=== PATIENT | female | born 1950 | race African-American/Black ===

== ENCOUNTER 2018-03-19 16:53 | Inpatient (IN) | payer MEDICARE, MEDICAID ==
[~2018-03-19] VITALS: Ht 162.6 cm; Wt 74.4 kg
[2018-03-19 17:14] VITALS: BP 200/82
[2018-03-19] MEDS ORDERED: Lidocaine 1% 10mg/ml/Epi 0.005mg/ml 30ml vial INJ ONE (18:00)
[2018-03-19] MEDS ORDERED: AMLODIPINE BESY10 MG ORAL (18:31)
[2018-03-19] MEDS ORDERED: MEGESTROL400 MG/11 PO (18:31)
[2018-03-19] MEDS ORDERED: ELIQUIS2.5 MG PO (18:31)
[2018-03-19] MEDS ORDERED: HYDRALAZINE HCL50 MG ORAL (18:31)
[2018-03-19] MEDS ORDERED: FUROSEMIDE20 M1 ORAL (18:31)
[2018-03-19] MEDS ORDERED: VITAMIN D400 INTLU ORAL (18:31)
[2018-03-19] MEDS ORDERED: ACIDOPHILUS LA1 EAC1 ORAL (18:31)
[2018-03-19] MEDS ORDERED: CRANBERRY450 M4 PO (18:31)
[2018-03-19] MEDS ORDERED: NEPHROVITE1 TAB ORAL (18:31)
[2018-03-19] MEDS ORDERED: GABAPENTIN100 MG ORAL (18:31)
[2018-03-19] MEDS ORDERED: METOPROLOL TART25 MG ORAL (18:31)
[2018-03-19] MEDS ORDERED: TUMS500 MG ORAL (18:31)
[2018-03-19] MEDS ORDERED: DOCUSATE SODIU100 MG ORAL (18:31)
[2018-03-19] MEDS ORDERED: FERROUS SULFAT325 MG ORAL (18:31)
[2018-03-19] MEDS ORDERED: CALCIUM ACETAT667 M1 PO (18:34)
[2018-03-19 19:09] LABS: HEMATOCRIT 22.1 % (37.0-47.0); HEMOGLOBIN 7.8 G/DL (12.0-16.0); MEAN CORPUSCULAR VOLUME 88 FL (80-99); PLATELET COUNT 152 K/UL (150-450); RED BLOOD COUNT 2.52 M/UL (4.20-5.40); RED CELL DISTRIBUTION WIDTH 12.7 % (11.6-14.8); WHITE BLOOD COUNT 5.2 K/UL (4.8-10.8)
[2018-03-19 19:15] VITALS: BP 171/81
[2018-03-19] MEDS ORDERED: Albuterol ud Inhalation HHN ONE (19:30)
[2018-03-19] MEDS ORDERED: Ipratropium 0.02% Inh Soln 2.5ml UD HHN ONE (19:30)
[2018-03-19 19:36] LABS: ANION GAP 10 mmol/L (5-15); BLOOD UREA NITROGEN 81 mg/dL (7-18); CALCIUM 9.6 MG/DL (8.5-10.1); CARBON DIOXIDE 23 MMOL/L (21-32); CHLORIDE 110 MMOL/L (98-107); POTASSIUM 4.7 MMOL/L (3.5-5.1); SODIUM 143 MMOL/L (136-145)
[2018-03-19 19:49] LABS: ALANINE AMINOTRANSFERASE 17 U/L (12-78); ALBUMIN 3.7 G/DL (3.4-5.0); ALBUMIN/GLOBULIN RATIO 0.9 (1.0-2.7); ALKALINE PHOSPHATASE 42 U/L (46-116); ASPARTATE AMINO TRANSFERASE 20 U/L (15-37); BILIRUBIN,TOTAL 0.4 MG/DL (0.2-1.0); CKMB 1.3 NG/ML (0.0-3.6); CREATINE KINASE 101 U/L (26-308)
[2018-03-19 21:04] VITALS: BP 170/61
[2018-03-19 21:23] VITALS: BP 189/85
--- NOTE | 2018-03-19 21:33 | Emergency Room Report ---
History of Present Illness General Chief Complaint: Abnormal Labs Source: Patient, Family Member, EMS Present Illness HPI Patient was found to have a low hemoglobin count at the facility that she resides in And sent in for further eval patient herself is felt mildly fatigued but denies any chest pain Patient does have history of asthma Denies any back or flank pain denies any abdominal pain Denies any dysuria frequency Daughter reports that she has been told her kidney function is not fully functional Allergies: Coded Allergies: PENICILLINS (Verified Allergy, Unknown, 11/10/09) Patient History Past Medical History: see triage record Pertinent Family History: none Last Menstrual Period: NA Reviewed Nursing Documentation: PMH: Agreed; PSxH: Agreed Nursing Documentation-PMH Past Medical History: No History, Except For Hx Diabetes: Yes History Of Psychiatric Problem: Yes Hx Neurological Problems: Yes - anxiety Review of Systems All Other Systems: negative except mentioned in HPI Physical Exam Vital Signs Date Time Temp Pulse Resp B/P (MAP) Pulse Ox O2 Delivery O2 Flow Rate FiO2 03/19/18 16:41 98.1 64 22 200/82 96 Room Air 98.1 03/19/18 19:34 21 Sp02 EP Interpretation: reviewed, normal General Appearance: mild distress - Appears mildly short of breath Head: normocephalic, atraumatic Eyes: bilateral eye PERRL ENT: normal pharynx, no angioedema Neck: supple, thyroid normal Respiratory: no respiratory distress, wheezing - Bilaterally Cardiovascular #1: regular rate, rhythm, other - Dependent edema bilaterally Gastrointestinal: soft, no mass Musculoskeletal: other - Patient has both hands flexed no obvious focal need deficit Neurologic: alert, oriented x3, responsive Skin: pallor Lymphatic: no adenopathy Procedures Central Line Central Line : Consent: Emergent Central Line Lumen: triple Maximal Sterile Barrier Tech: yes cap, yes mask, yes sterile gown, yes sterile gloves, yes large sterile sheet, yes hand hygiene, yes chlorhexidine prep Central Line Postion: femoral (R) Anesthesia: Lidocaine cc's of anesthesia: 4 Complications: none Central Line Post Position: sutured Attempts: One Patient Tolerated: Well Complications: None Medical Decision Making Diagnostic Impression: Primary Impression: Dyspnea Additional Impression: Symptomatic anemia ER Course Patient is a fairly complex patient with multiple differential to consideration including but not limited to cardiac cardiopulmonary and vascular emergencies Patient also shows signs of renal insufficiency has history of previous anemia With the hemoglobin of 7.8 at this time patient was not emergently transfused Appears to have signs of acute asthma as well patient provided with breathing treatments central line was required to be placed given the lack of any IV access Patient was provided with amlodipine here in the emergency room and requires close inpatient care Labs Test 03/19/18 18:58 White Blood Count 5.2 K/UL (4.8-10.8) Red Blood Count 2.52 M/UL (4.20-5.40) Hemoglobin 7.8 G/DL (12.0-16.0) Hematocrit 22.1 % (37.0-47.0) Mean Corpuscular Volume 88 FL (80-99) Mean Corpuscular Hemoglobin 31.1 PG (27.0-31.0) Mean Corpuscular Hemoglobin Concent 35.5 G/DL (32.0-36.0) Red Cell Distribution Width 12.7 % (11.6-14.8) Platelet Count 152 K/UL (150-450) Mean Platelet Volume 6.2 FL (6.5-10.1) Neutrophils (%) (Auto) % (45.0-75.0) Lymphocytes (%) (Auto) % (20.0-45.0) Monocytes (%) (Auto) % (1.0-10.0) Eosinophils (%) (Auto) % (0.0-3.0) Basophils (%) (Auto) % (0.0-2.0) Differential Total Cells Counted 100 Neutrophils % (Manual) 50 % (45-75) Lymphocytes % (Manual) 36 % (20-45) Monocytes % (Manual) 7 % (1-10) Eosinophils % (Manual) 5 % (0-3) Basophils % (Manual) 2 % (0-2) Band Neutrophils 0 % (0-8) Platelet Estimate Adequate Platelet Morphology Normal Hypochromasia 1+ Anisocytosis 1+ Prothrombin Time 10.0 SEC (9.30-11.50) Prothromb Time International Ratio 1.0 (0.9-1.1) Activated Partial Thromboplast Time 20 SEC (23-33) Sodium Level 143 MMOL/L (136-145) Potassium Level 4.7 MMOL/L (3.5-5.1) Chloride Level 110 MMOL/L (98-107) Carbon Dioxide Level 23 MMOL/L (21-32) Anion Gap 10 mmol/L (5-15) Blood Urea Nitrogen 81 mg/dL (7-18) Creatinine 5.0 MG/DL (0.55-1.30) Estimat Glomerular Filtration Rate 10.4 mL/min (>60) Glucose Level 136 MG/DL (74-106) Calcium Level 9.6 MG/DL (8.5-10.1) Total Bilirubin 0.4 MG/DL (0.2-1.0) Aspartate Amino Transf (AST/SGOT) 20 U/L (15-37) Alanine Aminotransferase (ALT/SGPT) 17 U/L (12-78) Alkaline Phosphatase 42 U/L (46-116) Total Creatine Kinase 101 U/L (26-308) Creatine Kinase MB 1.3 NG/ML (0.0-3.6) Creatine Kinase MB Relative Index 1.2 Troponin I 0.016 ng/mL (0.000-0.056) Pro-B-Type Natriuretic Peptide 7785 pg/mL (0-125) Total Protein 7.6 G/DL (6.4-8.2) Albumin 3.7 G/DL (3.4-5.0) Globulin 3.9 g/dL Albumin/Globulin Ratio 0.9 (1.0-2.7) EKG Diagnostic Results Rate: normal Rhythm: NSR ST Segments: other Rhythm Strip Diag. Results EP Interpretation: yes Rate: 77 Rhythm: NSR, no PVC's, no ectopy Chest X-Ray Diagnostic Results Chest X-Ray Diagnostic Results : Chest X-Ray Ordered: Yes # of Views/Limited/Complete: 1 View Indication: Shortness of Breath EP Interpretation: Yes Interpretation: no consolidation, no effusion, no pneumothorax Impression: No acute disease Electronically Signed by: Kodak Ha DO Last Vital Signs Date Time Temp Pulse Resp B/P (MAP) Pulse Ox O2 Delivery O2 Flow Rate FiO2 03/19/18 21:21 98.9 66 18 170/61 96 Room Air 03/19/18 19:54 21 Status: improved Disposition: ADMITTED INPATIENT Condition: Serious Referrals: Danie Banegas MD (PCP) Kodak Ha DO Mar 19, 2018 21:33
[2018-03-19] MEDS: Calcium Acetate 667mg Tab ORAL SCH ×2 (22:27→23:01)
[2018-03-19] MEDS ORDERED: Eliquis 2.5mg tablet ORAL SCH (22:27)
[2018-03-19] MEDS ORDERED: HydrALAZINE 50mg tab ORAL SCH (22:34)
[2018-03-19] MEDS: Megace 400mg/10ml Susp ORAL SCH ×2 (22:43→23:01)
[2018-03-19] MEDS: Metoprolol 25mg tab ORAL SCH (23:02)
[2018-03-19] MEDS: Docusate 100mg cap ORAL SCH (23:03)
[2018-03-20] VITALS (8 sets, daily range): BP systolic 140–181; BP diastolic 77–100
[2018-03-20] MEDS ORDERED: ALBUTEROL2.5 MG/3 M INH (01:01)
[2018-03-20] MEDS ORDERED: ACETAMINOPHEN325 M1 ORAL (01:01)
[2018-03-20] MEDS ORDERED: LIPITOR80 MG ORAL (01:01)
[2018-03-20] MEDS ORDERED: ZANTAC150 MG ORAL (01:01)
[2018-03-20] MEDS ORDERED: Albuterol ud Inhalation HHN PRN (01:20)
[2018-03-20 04:50] LABS: HEMATOCRIT 20.6 % (37.0-47.0); MEAN CORPUSCULAR VOLUME 89 FL (80-99); PLATELET COUNT 140 K/UL (150-450); RED CELL DISTRIBUTION WIDTH 12.7 % (11.6-14.8); WHITE BLOOD COUNT 4.8 K/UL (4.8-10.8)
[2018-03-20 04:57] LABS: HEMOGLOBIN 6.9 G/DL (12.0-16.0)
[2018-03-20 05:11] LABS: % IRON SATURATION 19 % (15-50); IRON 33 ug/dL (50-175); TOTAL IRON BINDING CAPACITY 174 ug/dL (250-450)
[2018-03-20 05:16] LABS: ALANINE AMINOTRANSFERASE 16 U/L (12-78); ALBUMIN 3.1 G/DL (3.4-5.0); ALBUMIN/GLOBULIN RATIO 0.9 (1.0-2.7); ALKALINE PHOSPHATASE 37 U/L (46-116); ANION GAP 11 mmol/L (5-15); ASPARTATE AMINO TRANSFERASE 16 U/L (15-37); BILIRUBIN,TOTAL 0.3 MG/DL (0.2-1.0); BLOOD UREA NITROGEN 77 mg/dL (7-18); CALCIUM 8.8 MG/DL (8.5-10.1); CARBON DIOXIDE 23 MMOL/L (21-32); CHLORIDE 111 MMOL/L (98-107); CHOLESTEROL 108 MG/DL (< 200); CREATININE 5.2 MG/DL (0.55-1.30); HDL CHOLESTEROL 44 MG/DL (40-60); POTASSIUM 4.3 MMOL/L (3.5-5.1); SODIUM 145 MMOL/L (136-145); TRIGLYCERIDES 65 MG/DL (30-150)
[2018-03-20] MEDS: HydrALAZINE 50mg tab ORAL SCH ×3 (06:09→21:40)
[2018-03-20] MEDS: NovoLOG Insulin Flexpen SUBQ SCH ×4 (06:11→21:42)
--- NOTE | 2018-03-20 07:52 | History & Physical ---
History and Physical History & Physicial seen and examined. dictated # [id number] Danie Banegas MD Mar 20, 2018 07:52
--- NOTE | 2018-03-20 07:55 | General Progress Note ---
Assessment/Plan Assessment/Plan patient seen and examined. 1- Acute Anemia 2- DM 3- CVA- left hemiparesis 4- HTN 5- A/C KD Plan: Nephrology Cardiology proceed with one unit transfusion pending echo DC ATC only SCD Subjective Allergies: Coded Allergies: PENICILLINS (Verified Allergy, Unknown, 11/10/09) Objective Last 24 Hour Vital Signs Date Time Temp Pulse Resp B/P (MAP) Pulse Ox O2 Delivery O2 Flow Rate FiO2 03/20/18 06:09 140/80 03/20/18 04:00 60 03/20/18 04:00 98.6 61 20 140/80 95 Room Air 98.6 03/20/18 00:00 98.8 145 20 163/100 95 Room Air 98.8 03/20/18 00:00 74 03/19/18 23:02 74 166/74 03/19/18 23:02 166/74 03/19/18 21:23 98.2 145 18 189/85 98 Room Air 98.2 03/19/18 21:21 98.9 66 18 170/61 96 Room Air 03/19/18 21:04 98.6 66 16 170/61 96 Room Air 98.6 03/19/18 21:03 66 170/61 03/19/18 19:54 59 16 100 Room Air 21 03/19/18 19:34 63 16 Room Air 21 03/19/18 19:34 63 16 98 Room Air 21 03/19/18 19:15 98.6 60 18 171/81 98 Room Air 98.6 03/19/18 17:14 98.1 84 22 200/82 96 Room Air 98.1 03/19/18 16:41 98.1 64 22 200/82 96 Room Air 98.1 Intake and Output 03/19/18 03/20/18 19:00 07:00 Intake Total 200 ml Output Total 0 ml 825 ml Balance 0 ml -625 ml Intake Oral 200 ml Output Urine Total 0 ml 825 ml Laboratory Tests 03/19/18 18:58: White Blood Count 5.2, Red Blood Count 2.52L, Hemoglobin 7.8L, Hematocrit 22.1L , Mean Corpuscular Volume 88, Mean Corpuscular Hemoglobin 31.1H, Mean Corpuscular Hemoglobin Concent 35.5, Red Cell Distribution Width 12.7, Platelet Count 152, Mean Platelet Volume 6.2L, Neutrophils (%) (Auto) , Lymphocytes (%) ( Auto) , Monocytes (%) (Auto) , Eosinophils (%) (Auto) , Basophils (%) (Auto) , Differential Total Cells Counted 100, Neutrophils % (Manual) 50, Lymphocytes % ( Manual) 36, Monocytes % (Manual) 7, Eosinophils % (Manual) 5H, Basophils % ( Manual) 2, Band Neutrophils 0, Platelet Estimate Adequate, Platelet Morphology Normal, Hypochromasia 1+, Anisocytosis 1+, Prothrombin Time 10.0, Prothromb Time International Ratio 1.0, Activated Partial Thromboplast Time 20L, Sodium Level 143, Potassium Level 4.7, Chloride Level 110H, Carbon Dioxide Level 23, Anion Gap 10, Blood Urea Nitrogen 81H, Creatinine 5.0H, Estimat Glomerular Filtration Rate 10.4, Glucose Level 136H, Calcium Level 9.6, Total Bilirubin 0.4 , Aspartate Amino Transf (AST/SGOT) 20, Alanine Aminotransferase (ALT/SGPT) 17, Alkaline Phosphatase 42L, Total Creatine Kinase 101, Creatine Kinase MB 1.3, Creatine Kinase MB Relative Index 1.2, Troponin I 0.016, Pro-B-Type Natriuretic Peptide 7785H, Total Protein 7.6, Albumin 3.7, Globulin 3.9, Albumin/Globulin Ratio 0.9L 03/20/18 04:00: White Blood Count 4.8, Red Blood Count 2.30L, Hemoglobin 6.9*L, Hematocrit 20.6L , Mean Corpuscular Volume 89, Mean Corpuscular Hemoglobin 29.9, Mean Corpuscular Hemoglobin Concent 33.5, Red Cell Distribution Width 12.7, Platelet Count 140L, Mean Platelet Volume 5.6L, Neutrophils (%) (Auto) , Lymphocytes (%) (Auto) , Monocytes (%) (Auto) , Eosinophils (%) (Auto) , Basophils (%) (Auto) , Neutrophils % (Manual) [Pending], Lymphocytes % (Manual) [Pending], Platelet Estimate [Pending], Platelet Morphology [Pending], Sodium Level 145, Potassium Level 4.3, Chloride Level 111H, Carbon Dioxide Level 23, Anion Gap 11, Blood Urea Nitrogen 77H, Creatinine 5.2H, Estimat Glomerular Filtration Rate 9.9, Glucose Level 165H, Calcium Level 8.8, Total Bilirubin 0.3, Aspartate Amino Transf (AST/SGOT) 16, Alanine Aminotransferase (ALT/SGPT) 16, Alkaline Phosphatase 37L, Total Protein 6.4, Albumin 3.1L, Globulin 3.3, Albumin/ Globulin Ratio 0.9L, Hemoglobin A1c 4.8, Iron Level 33L, Total Iron Binding Capacity 174L, Percent Iron Saturation 19, Unsaturated Iron Binding 141, Triglycerides Level 65, Cholesterol Level 108, LDL Cholesterol 62, HDL Cholesterol 44, Cholesterol/HDL Ratio 2.5L, Thyroid Stimulating Hormone (TSH) 1.876 Height (Feet): 5 Height (Inches): 4.00 Weight (Pounds): 164 Danie Banegas MD Mar 20, 2018 07:55
--- NOTE | 2018-03-20 08:07 | Cardiology Progress Note ---
Assessment/Plan Assessment/Plan The patient is seen and examined, full consult note will be provided. Objective Last 24 Hour Vital Signs Date Time Temp Pulse Resp B/P (MAP) Pulse Ox O2 Delivery O2 Flow Rate FiO2 03/20/18 06:09 140/80 03/20/18 04:00 60 03/20/18 04:00 98.6 61 20 140/80 95 Room Air 98.6 03/20/18 00:00 98.8 145 20 163/100 95 Room Air 98.8 03/20/18 00:00 74 03/19/18 23:02 74 166/74 03/19/18 23:02 166/74 03/19/18 21:23 98.2 145 18 189/85 98 Room Air 98.2 03/19/18 21:21 98.9 66 18 170/61 96 Room Air 03/19/18 21:04 98.6 66 16 170/61 96 Room Air 98.6 03/19/18 21:03 66 170/61 03/19/18 19:54 59 16 100 Room Air 21 03/19/18 19:34 63 16 Room Air 21 03/19/18 19:34 63 16 98 Room Air 21 03/19/18 19:15 98.6 60 18 171/81 98 Room Air 98.6 03/19/18 17:14 98.1 84 22 200/82 96 Room Air 98.1 03/19/18 16:41 98.1 64 22 200/82 96 Room Air 98.1 Intake and Output 03/19/18 03/20/18 19:00 07:00 Intake Total 200 ml Output Total 0 ml 825 ml Balance 0 ml -625 ml Intake Oral 200 ml Output Urine Total 0 ml 825 ml Laboratory Tests Test 03/19/18 18:58 03/20/18 04:00 White Blood Count 5.2 K/UL (4.8-10.8) 4.8 K/UL (4.8-10.8) Red Blood Count 2.52 M/UL (4.20-5.40) L 2.30 M/UL (4.20-5.40) L Hemoglobin 7.8 G/DL (12.0-16.0) L 6.9 G/DL (12.0-16.0) *L Hematocrit 22.1 % (37.0-47.0) L 20.6 % (37.0-47.0) L Mean Corpuscular Volume 88 FL (80-99) 89 FL (80-99) Mean Corpuscular Hemoglobin 31.1 PG (27.0-31.0) H 29.9 PG (27.0-31.0) Mean Corpuscular Hemoglobin Concent 35.5 G/DL (32.0-36.0) 33.5 G/DL (32.0-36.0) Red Cell Distribution Width 12.7 % (11.6-14.8) 12.7 % (11.6-14.8) Platelet Count 152 K/UL (150-450) 140 K/UL (150-450) L Mean Platelet Volume 6.2 FL (6.5-10.1) L 5.6 FL (6.5-10.1) L Neutrophils (%) (Auto) % (45.0-75.0) % (45.0-75.0) Lymphocytes (%) (Auto) % (20.0-45.0) % (20.0-45.0) Monocytes (%) (Auto) % (1.0-10.0) % (1.0-10.0) Eosinophils (%) (Auto) % (0.0-3.0) % (0.0-3.0) Basophils (%) (Auto) % (0.0-2.0) % (0.0-2.0) Differential Total Cells Counted 100 Neutrophils % (Manual) 50 % (45-75) Pending Lymphocytes % (Manual) 36 % (20-45) Pending Monocytes % (Manual) 7 % (1-10) Eosinophils % (Manual) 5 % (0-3) H Basophils % (Manual) 2 % (0-2) Band Neutrophils 0 % (0-8) Platelet Estimate Adequate Pending Platelet Morphology Normal Pending Hypochromasia 1+ Anisocytosis 1+ Prothrombin Time 10.0 SEC (9.30-11.50) Prothromb Time International Ratio 1.0 (0.9-1.1) Activated Partial Thromboplast Time 20 SEC (23-33) L Sodium Level 143 MMOL/L (136-145) 145 MMOL/L (136-145) Potassium Level 4.7 MMOL/L (3.5-5.1) 4.3 MMOL/L (3.5-5.1) Chloride Level 110 MMOL/L (98-107) H 111 MMOL/L (98-107) H Carbon Dioxide Level 23 MMOL/L (21-32) 23 MMOL/L (21-32) Anion Gap 10 mmol/L (5-15) 11 mmol/L (5-15) Blood Urea Nitrogen 81 mg/dL (7-18) H 77 mg/dL (7-18) H Creatinine 5.0 MG/DL (0.55-1.30) H 5.2 MG/DL (0.55-1.30) H Estimat Glomerular Filtration Rate 10.4 mL/min (>60) 9.9 mL/min (>60) Glucose Level 136 MG/DL (74-106) H 165 MG/DL (74-106) H Calcium Level 9.6 MG/DL (8.5-10.1) 8.8 MG/DL (8.5-10.1) Total Bilirubin 0.4 MG/DL (0.2-1.0) 0.3 MG/DL (0.2-1.0) Aspartate Amino Transf (AST/SGOT) 20 U/L (15-37) 16 U/L (15-37) Alanine Aminotransferase (ALT/SGPT) 17 U/L (12-78) 16 U/L (12-78) Alkaline Phosphatase 42 U/L (46-116) L 37 U/L (46-116) L Total Creatine Kinase 101 U/L (26-308) Creatine Kinase MB 1.3 NG/ML (0.0-3.6) Creatine Kinase MB Relative Index 1.2 Troponin I 0.016 ng/mL (0.000-0.056) Pro-B-Type Natriuretic Peptide 7785 pg/mL (0-125) H Total Protein 7.6 G/DL (6.4-8.2) 6.4 G/DL (6.4-8.2) Albumin 3.7 G/DL (3.4-5.0) 3.1 G/DL (3.4-5.0) L Globulin 3.9 g/dL 3.3 g/dL Albumin/Globulin Ratio 0.9 (1.0-2.7) L 0.9 (1.0-2.7) L Hemoglobin A1c 4.8 % (4.3-6.0) Iron Level 33 ug/dL (50-175) L Total Iron Binding Capacity 174 ug/dL (250-450) L Percent Iron Saturation 19 % (15-50) Unsaturated Iron Binding 141 ug/dL (112-346) Triglycerides Level 65 MG/DL (30-150) Cholesterol Level 108 MG/DL (< 200) LDL Cholesterol 62 mg/dL (<100) HDL Cholesterol 44 MG/DL (40-60) Cholesterol/HDL Ratio 2.5 (3.3-4.4) L Thyroid Stimulating Hormone (TSH) 1.876 uiU/mL (0.358-3.740) Triston Joy MD Mar 20, 2018 08:07
--- NOTE | 2018-03-20 08:41 | Diagnostic Imaging Report ---
Indication: Chest pain Technique: One view of the chest Comparison: 11/11/2009 Findings: Lungs and pleural spaces are clear. The heart size is normal. The aorta is tortuous. No significant interim change Impression: Negative
[2018-03-20] MEDS: Vitamin D 400 INTLU TAB ORAL SCH (09:09)
[2018-03-20] MEDS: Lactobacillus-GG tablet ORAL SCH (09:09)
[2018-03-20] MEDS: Megace 400mg/10ml Susp ORAL SCH (09:09)
[2018-03-20] MEDS: Calcium Acetate 667mg Tab ORAL SCH ×3 (09:09→17:34)
[2018-03-20] MEDS: Nephrovite tab (Rena-Vite) ORAL SCH (09:09)
[2018-03-20] MEDS: Docusate 100mg cap ORAL SCH ×2 (09:10→17:34)
[2018-03-20] MEDS: Metoprolol 25mg tab ORAL SCH ×2 (09:10→21:41)
--- NOTE | 2018-03-20 09:45 | Consultation ---
DATE OF CONSULTATION: 03/20/2018 CARDIOLOGY CONSULTATION REFERRING PHYSICIAN: Danie Banegas M.D. REASON FOR CONSULTATION: Management of accelerated hypertension and possible paroxysmal atrial fibrillation. HISTORY OF PRESENT ILLNESS: The patient is a very unfortunate 67-year-old lady resident of a nursing facility with prior history of stroke, left hemiparesis, and , history of chronic kidney disease and hypertension as well as asthma, who was brought in for evaluation and management of anemia. She has complaints of fatigue, but denies any shortness of breath or chest pain. Her initial hemoglobin level in the emergency department was 7.8. The patient is currently being worked up for anemia as well as renal failure. Her creatinine was 5.0. On arrival to the hospital, her vital signs revealed a blood pressure of 200/82 mmHg. Cardiology consultation was made at the request of Dr. Ceballos to address the management. There is some evaluation of accelerated hypertension as well as episodes of SVT, which has been evident on the youth nutritional monitor since her arrival to this floor. Triston Joy M.D. DR: YAA JOB#: [id number] CC:
--- NOTE | 2018-03-20 09:45 | History and Physical Report ---
DATE OF ADMISSION: 03/19/2018 SOURCE OF INFORMATION: Patient and EMR. HISTORY OF PRESENT ILLNESS: The patient is a pleasant 67-year-old female. The patient has multiple medical problems. She is currently resident of a [facility]. I was notified hemoglobin is 6.5. At the time of evaluation, the patient denies any chest pain, nausea, vomitus, diarrhea, constipation, any abnormal bleeding. The patient is AO x3. FAMILY HISTORY: Reviewed. Noncontributory. PAST MEDICAL HISTORY: CVA with left-sided hemiparesis, hypertension, diabetes, COPD, iron-deficiency anemia, and chronic kidney disease. FPC MEDICATIONS: Including, but not limited to amlodipine, Eliquis, atorvastatin, ferrous sulfate, gabapentin, hydralazine, and metoprolol. ALLERGIES: Penicillin. PAST SURGICAL HISTORY: Denies. SOCIAL HISTORY: The patient is currently residing in a [facility]. Has 1 daughter. Denies history of illicit drug abuse, smoking, or alcohol abuse. PHYSICAL EXAMINATION: VITAL SIGNS: Blood pressure 200/80, temperature 98.1, pulse oximetry 98% on room air, and respiratory rate 18-20. HEAD AND NECK: Atraumatic and normocephalic. Positive for the right-sided hemiparesis. CHEST: Clear to auscultation. No wheezing. No crackles. HEART: S1 and S2. Regular rate and rhythm. Negative for S3. Positive for questionable cardiac murmurs. ABDOMEN: Obese and soft. Bowel sounds normal. No gross organomegaly. NEUROLOGIC: The patient is awake, alert and oriented x3. Positive for slurred speech. MUSCULOSKELETAL: Positive for the left-sided hemiparesis, more prominent in the left upper extremity. LABORATORY AND DIAGNOSTIC DATA: Labs dated 03/19/2018 shows WBC 5.2, hemoglobin of 7.8, platelets of 152. Sodium 143, potassium 4.7, BUN 81, creatinine 5, AST 20, ALT 17. Troponin x1 negative. BNP 7700. ASSESSMENT: 1. Acute on chronic anemia. 2. Diabetes type 2. 3. Hypertension, uncontrolled. 4. Acute on chronic renal failure. 5. Cerebrovascular accident with left-sided hemiparesis. 6. Gastrointestinal and deep vein thrombosis prophylaxis. 7. Iron-deficiency anemia. 8. On anticoagulation. PLAN OF CARE: We will hold the anticoagulation. We will check the H and H. We will do the occult blood test. Consult Cardiology and Nephrology. We will monitor. Danie Banegas M.D. DR: SIXTO JOB#: [id number] CC:
--- NOTE | 2018-03-20 10:15 | Consultation ---
DATE OF CONSULTATION: 03/20/2018 CARDIOLOGY CONSULTATION REFERRING PHYSICIAN: Danie Banegas M.D. REASON FOR CONSULTATION: Management of accelerated hypertension and SVT. HISTORY OF PRESENT ILLNESS: This is a very unfortunate 67-year-old female who is brought in from nursing facility for evaluation of anemia and chronic kidney disease. The patient at the time of arrival to the hospital did not have any symptoms except fatigued. Her initial vitals however showed a blood pressure of 200/82 mmHg. Cardiology consultation was made. The patient was admitted to telemetry for further evaluation and management of above. While in the telemetry unit, she developed a few episodes of supraventricular tachycardia, which is believed to be atrial tachycardia. The patient also has been on apixaban for presumably diagnosis of paroxysmal atrial fibrillation. PAST MEDICAL HISTORY: Includes history of congestive heart failure, history of anemia, history of hypertension, history of chronic kidney disease, history of CVA with left hemiparesis, history of COPD, history of malignant neoplasm of the uterus, history of anxiety disorder, history of hyperlipidemia, and history of pulmonary hypertension. PAST SURGICAL HISTORY: None. FAMILY HISTORY: No premature coronary artery disease in first-degree relatives. SOCIAL HISTORY: Denies any tobacco, alcohol, or illicit drug use. She is a resident of a nursing facility. MEDICATIONS: List of medications from the nursing facility acetaminophen 325 1 tablet q.4 h. p.r.n. pain, albuterol 3 mL inhaler p.r.n. wheezing, amlodipine 10 mg p.o. daily, apixaban 2.5 mg twice daily, Lipitor 10 mg p.o. at bedtime, calcium acetate 667 mg three times a day, cranberry 450 once a day and Colace 100 mg twice a day, ferrous sulfate 325 mg daily, furosemide 20 mg p.o. daily, gabapentin 100 mg three times a day, hydralazine 50 mg q.8 h, acidophilus lactobacillus 1 tablet p.o. daily, megestrol acetate 400 mg twice a day, metoprolol 25 mg twice daily, Zantac 150 mg daily, vitamin B complex, vitamin C and folic acid , Nephro-Gildardo 1 tablet daily, and vitamin D3 1000 units p.o. daily. ALLERGIES: Penicillin. REVIEW OF SYSTEMS: HEENT: Denies any headache, diplopia, or blurred vision. CONSTITUTIONAL: Complains of generalized weakness and fatigue, but no fever, chills, or night sweats. CARDIOVASCULAR: Denies any chest pain, shortness breath, PND, orthopnea, or leg swelling. PULMONARY: Denies any cough, hemoptysis, or wheezing. GASTROINTESTINAL: Denies any nausea, vomiting, diarrhea, constipation, abdominal pain, or GI bleed. GENITOURINARY: Denies any hematuria, dysuria, or incontinence. NEUROLOGY: Left hemiparesis with no altered speech. MUSCULOSKELETAL: Inability to walk and she is bedbound. HEMATOLOGY: Complaints of anemia. PHYSICAL EXAMINATION: VITAL SIGNS: Blood pressure is 200/82, respirations of 22, pulse ox of 64, O2 saturation 96% on room air, and temperature 98.1 degrees Fahrenheit. GENERAL: The patient is a very pleasant 67-year-old female, in no apparent respiratory distress. HEENT: Atraumatic, normocephalic. ENT, pupils are equal, round, and reactive to light and accommodation. Conjunctival pallor is seen. NECK: JVP less than 5 cm. No carotid bruits. Carotid upstrokes 2+ bilaterally. CARDIOVASCULAR: Normal S1, S2. Regular rate and rhythm. No murmurs, gallops, or rubs. PMI is at fourth intercostal space in the midclavicular line. LUNGS: Bilateral rhonchi. ABDOMEN: Soft, nontender, and nondistended. No hepatosplenomegaly. Positive bowel sounds. EXTREMITIES: There is 1 to 2+ bilateral lower extremity edema. LABORATORY FINDINGS: Sodium is 143, potassium is 4.7, chloride 110, bicarbonate 23, BUN of 81, creatinine 1.0 and glucose is 136. Calcium is 9.6. Troponin I was 0.016. ProBNP was 7785. INR was 1.0. Her WBC 5.2, hemoglobin 7.8, hematocrit 22.1 and platelet count is 152. A 12-lead electrocardiogram shows sinus bradycardia. There is a sinus rhythm at a rate of [address] and T-wave abnormalities. A rhythm strip shows paroxysms of atrial tachycardia. ASSESSMENT AND PLAN: The patient is a very unfortunate 67-year-old female seen in Cardiology consultation at the request of Dr. Banegas. 1. Paroxysmal atrial tachycardia. This rhythm does not require anticoagulation therapy, although paroxysmal atrial fibrillation has not been completely excluded. I would consider withholding Eliquis at this point, given profound anemia and some history of uterine malignancy. This above issues need to be addressed. Anemia could be anemia of chronic kidney disease. Given the patient's creatinine of 5.0. Certainly, the patient has inherent risks of thromboembolic events if she truly has paroxysmal atrial fibrillation or flutter. At this point, it would be safer to withhold the Eliquis until the above issues are clarified. We would like to obtain 2D echocardiography for assessment of left ventricular systolic function. 2. Accelerated hypertension. The patient was on amlodipine and hydralazine as an outpatient. We will continue both and adjust the dose accordingly. The patient will also be continued on metoprolol and clonidine as needed. 3. The latest blood pressure is 140/80 mmHg, which is acceptable. 4. Further therapeutic and diagnostic decision will be based on the results of 2D echocardiography. I would like to thank, Dr. Banegas, for the courtesy of this consultation. Triston Joy M.D. DR: YAA JOB#: [id number] CC:
--- NOTE | 2018-03-20 10:55 | Diagnostic Imaging Report ---
Indication: Shortness of breath Technique: One view of the chest Comparison: 03/19/2018 Findings: Lungs and pleural spaces are clear. The heart size is borderline enlarged. There is no significant interim change Impression: Borderline cardiomegaly No acute process
[2018-03-20 11:08] LABS: APPEARANCE,URINE CLOUDY; BILIRUBIN, URINE NEGATIVE (NEGATIVE); COLOR,URINE PALE YELLOW; GLUCOSE, URINE (UA) NEGATIVE (NEGATIVE); KETONES,URINE NEGATIVE (NEGATIVE); LEUKOCYTE ESTERASE ,URINE 2+ (NEGATIVE); NITRITE,URINE POSITIVE (NEGATIVE); PH,URINE 6 (4.5-8.0); PROTEIN,URINE 3+ (NEGATIVE); UROBILINOGEN,URINE NORMAL MG/DL (0.0-1.0)
--- NOTE | 2018-03-20 16:05 | Consultation ---
Consult Note Consult Note asked to eval for renal failure- Patient was found to have a low hemoglobin count at the facility that she resides in And sent in for further eval patient herself is felt mildly fatigued but denies any chest pain Patient does have history of asthma Denies any back or flank pain denies any abdominal pain Denies any dysuria frequency Daughter reports that she has been told her kidney function is not fully functional Allergies: PENICILLINS (Verified Allergy, Unknown, 11/10/09) Patient History Past Medical History: see triage record Pertinent Family History: none Last Menstrual Period: NA Reviewed Nursing Documentation: PMH: Agreed; PSxH: Agreed Past Medical History: CVA with left-sided hemiparesis, hypertension, diabetes, COPD, iron-deficiency anemia, and chronic kidney disease. Cr 5.2 examined- meds and data reviewed Assessment/Plan Renal failure, likely chronic ? Superimposed acute renal failure Diabetic Nephropathy / Proteinuria UTI Sever Anemia / symptomatic HTN CVA left weakness Urine studies Kidney ERICKA 2D echo Anemia lamb EPO Urine studies Per orders GARIMA OLIVEROS Mar 20, 2018 16:05
[2018-03-20] MEDS ORDERED: Iron Sucrose 200 MG in NS 110 ML IV ONE (17:30)
[2018-03-20 17:38] LABS: BASOPHILS % (AUTO) 0.9 % (0.0-2.0); HEMATOCRIT 25.5 % (37.0-47.0); HEMOGLOBIN 8.4 G/DL (12.0-16.0); LYMPHOCYTES % (AUTO) 28.1 % (20.0-45.0); MEAN CORPUSCULAR VOLUME 88 FL (80-99); MONOCYTES % (AUTO) 9.2 % (1.0-10.0); NEUTROPHILS % (AUTO) 55.8 % (45.0-75.0); PLATELET COUNT 162 K/UL (150-450); RED BLOOD COUNT 2.89 M/UL (4.20-5.40); RED CELL DISTRIBUTION WIDTH 12.6 % (11.6-14.8); WHITE BLOOD COUNT 5.6 K/UL (4.8-10.8)
[2018-03-20] MEDS ORDERED: NS 500ML ONE (19:22)
[2018-03-20] MEDS ORDERED: Tubing IV Blood Pump IV ONE (19:22)
[2018-03-20] MEDS ORDERED: Epogen (for non ESRD use) SUBQ SCH (21:00)
--- NOTE | 2018-03-20 21:39 | Consultation ---
History of Present Illness General Date patient seen: Mar 20, 2018 Chief Complaint: Abnormal Labs Present Illness HPI 67-year-old female with multiple medical problems who was admitted for abnormal labs. the pt c/o insomnia and difficulty sleeping due to anxiety and pain. the pt stated that the consulting intern has not been cleaning her nor changing her dressing. Allergies: Coded Allergies: PENICILLINS (Verified Allergy, Unknown, 11/10/09) Medication History Scheduled Amlodipine Besylate* (Amlodipine Besylate*), 10 MG ORAL DAILY, (Reported) Apixaban (Eliquis), 2.5 MG PO BID, (Reported) Atorvastatin (Lipitor), 10 MG ORAL BEDTIME, (Reported) Calcium Acetate (Calcium Acetate), 667 MG PO TID, (Reported) Docusate Sodium* (Docusate Sodium*), 100 MG ORAL TWICE A DAY, (Reported) Ferrous Sulfate* (Ferrous Sulfate*), 325 MG ORAL DAILY, (Reported) Furosemide* (Lasix*), 20 MG ORAL DAILY, (Reported) Gabapentin* (Gabapentin*), 100 MG ORAL THREE TIMES A DAY, (Reported) Hydralazine Hcl* (Hydralazine Hcl*), 50 MG ORAL EVERY 8 HOURS, (Reported) Lactobacillus Acidophilus (Acidophilus Lactobacillus), 1 TAB ORAL DAILY, ( Reported) Megestrol Acetate (Megestrol Acetate), 400 MG PO BID, (Reported) Metoprolol Tartrate* (Metoprolol Tartrate*), 25 MG ORAL EVERY 12 HOURS, ( Reported) Ranitidine Hcl* (Zantac*), 150 MG ORAL DAILY, (Reported) Vitamin B Cmplx/Vit C/Folic AC (Nephro-Gildardo Tablet), 1 TAB ORAL DAILY, (Reported ) Vitamin D (Vitamin D3), 1,000 UNITS ORAL DAILY, (Reported) Scheduled PRN Acetaminophen* (Acetaminophen 325MG Tablet*), 325 MG ORAL Q4H PRN for For Pain, (Reported) Albuterol Sulfate* (Albuterol Sulfate Hhn*), 3 ML INH Q6H PRN for wheezing, ( Reported) Miscellaneous Medications Cranberry Fruit Concentrate (Cranberry), 450 MG PO, (Reported) Discontinued Medications Calcium Carbonate (Calcium), 667 MG ORAL THREE TIMES A DAY PRN for HEARTBURN, ( Reported) Discontinued Reason: Prescription changed Patient History Limited by: medical condition History Provided By: Patient, Medical Record, PMD Healthcare decision maker Resuscitation status Full Code Advanced Directive on File Yes Past Medical/Surgical History Past Medical/Surgical History: (1) Dyspnea (2) Symptomatic anemia Review of Systems Psychiatric: Reports: anxiety, emotional problems Physical Exam General Appearance: no apparent distress, alert Neurologic: oriented x 3, responsive, depressed affect Last 24 Hour Vital Signs Date Time Temp Pulse Resp B/P (MAP) Pulse Ox O2 Delivery O2 Flow Rate FiO2 03/20/18 20:36 60 20 Room Air 21 03/20/18 16:00 98.4 60 20 154/91 97 Room Air 98.4 03/20/18 16:00 76 03/20/18 13:49 147/89 03/20/18 13:12 98.1 61 20 147/89 96 Room Air 98.1 03/20/18 12:57 98.2 61 20 151/87 96 Room Air 98.2 03/20/18 12:00 75 03/20/18 12:00 98.2 62 20 156/77 96 Room Air 98.2 03/20/18 09:10 59 181/95 03/20/18 09:10 59 181/95 03/20/18 08:00 67 03/20/18 08:00 98.8 59 20 181/95 95 Room Air 98.8 03/20/18 06:09 140/80 03/20/18 04:00 60 03/20/18 04:00 98.6 61 20 140/80 95 Room Air 98.6 03/20/18 00:00 98.8 145 20 163/100 95 Room Air 98.8 03/20/18 00:00 74 03/19/18 23:02 74 166/74 03/19/18 23:02 166/74 Intake and Output 03/19/18 03/20/18 19:00 07:00 Intake Total 200 ml Output Total 0 ml 825 ml Balance 0 ml -625 ml Intake Oral 200 ml Output Urine Total 0 ml 825 ml Laboratory Tests Test 03/20/18 04:00 03/20/18 06:00 03/20/18 10:55 03/20/18 12:35 White Blood Count 4.8 K/UL (4.8-10.8) Red Blood Count 2.30 M/UL (4.20-5.40) L Hemoglobin 6.9 G/DL (12.0-16.0) *L Hematocrit 20.6 % (37.0-47.0) L Mean Corpuscular Volume 89 FL (80-99) Mean Corpuscular Hemoglobin 29.9 PG (27.0-31.0) Mean Corpuscular Hemoglobin Concent 33.5 G/DL (32.0-36.0) Red Cell Distribution Width 12.7 % (11.6-14.8) Platelet Count 140 K/UL (150-450) L Mean Platelet Volume 5.6 FL (6.5-10.1) L Neutrophils (%) (Auto) % (45.0-75.0) Lymphocytes (%) (Auto) % (20.0-45.0) Monocytes (%) (Auto) % (1.0-10.0) Eosinophils (%) (Auto) % (0.0-3.0) Basophils (%) (Auto) % (0.0-2.0) Differential Total Cells Counted 100 Neutrophils % (Manual) 61 % (45-75) Lymphocytes % (Manual) 25 % (20-45) Monocytes % (Manual) 9 % (1-10) Eosinophils % (Manual) 5 % (0-3) H Basophils % (Manual) 0 % (0-2) Band Neutrophils 0 % (0-8) Platelet Estimate Decreased L Platelet Morphology Normal Hypochromasia 4+ Anisocytosis 1+ Spherocytes 1+ Sodium Level 145 MMOL/L (136-145) Potassium Level 4.3 MMOL/L (3.5-5.1) Chloride Level 111 MMOL/L (98-107) H Carbon Dioxide Level 23 MMOL/L (21-32) Anion Gap 11 mmol/L (5-15) Blood Urea Nitrogen 77 mg/dL (7-18) H Creatinine 5.2 MG/DL (0.55-1.30) H Estimat Glomerular Filtration Rate 9.9 mL/min (>60) Glucose Level 165 MG/DL (74-106) H Hemoglobin A1c 4.8 % (4.3-6.0) Calcium Level 8.8 MG/DL (8.5-10.1) Iron Level 33 ug/dL (50-175) L Total Iron Binding Capacity 174 ug/dL (250-450) L Percent Iron Saturation 19 % (15-50) Unsaturated Iron Binding 141 ug/dL (112-346) Total Bilirubin 0.3 MG/DL (0.2-1.0) Aspartate Amino Transf (AST/SGOT) 16 U/L (15-37) Alanine Aminotransferase (ALT/SGPT) 16 U/L (12-78) Alkaline Phosphatase 37 U/L (46-116) L Total Protein 6.4 G/DL (6.4-8.2) Albumin 3.1 G/DL (3.4-5.0) L Globulin 3.3 g/dL Albumin/Globulin Ratio 0.9 (1.0-2.7) L Triglycerides Level 65 MG/DL (30-150) Cholesterol Level 108 MG/DL (< 200) LDL Cholesterol 62 mg/dL (<100) HDL Cholesterol 44 MG/DL (40-60) Cholesterol/HDL Ratio 2.5 (3.3-4.4) L Thyroid Stimulating Hormone (TSH) 1.876 uiU/mL (0.358-3.740) Ferritin 279 NG/ML (8-388) Vitamin B12 Level 616 PG/ML (193-986) Folate 14.4 NG/ML (8.6-58.9) Urine Color Pale yellow Urine Appearance Cloudy Urine pH 6 (4.5-8.0) Urine Specific [place] 1.010 (1.005-1.035) Urine Protein 3+ (NEGATIVE) H Urine Glucose (UA) Negative (NEGATIVE) Urine Ketones Negative (NEGATIVE) Urine Occult Blood 3+ (NEGATIVE) H Urine Nitrite Positive (NEGATIVE) H Urine Bilirubin Negative (NEGATIVE) Urine Urobilinogen Normal MG/DL (0.0-1.0) Urine Leukocyte Esterase 2+ (NEGATIVE) H Urine RBC 10-15 /HPF (0 - 2) H Urine WBC Tntc /HPF (0 - 2) H Urine Squamous Epithelial Cells Few /LPF (NONE/OCC) Urine Bacteria Many /HPF (NONE) H Stool Occult Blood Negative (NEGATIVE) Test 03/20/18 16:40 White Blood Count 5.6 K/UL (4.8-10.8) Red Blood Count 2.89 M/UL (4.20-5.40) L Hemoglobin 8.4 G/DL (12.0-16.0) L Hematocrit 25.5 % (37.0-47.0) L Mean Corpuscular Volume 88 FL (80-99) Mean Corpuscular Hemoglobin 29.2 PG (27.0-31.0) Mean Corpuscular Hemoglobin Concent 33.0 G/DL (32.0-36.0) Red Cell Distribution Width 12.6 % (11.6-14.8) Platelet Count 162 K/UL (150-450) Mean Platelet Volume 5.7 FL (6.5-10.1) L Neutrophils (%) (Auto) 55.8 % (45.0-75.0) Lymphocytes (%) (Auto) 28.1 % (20.0-45.0) Monocytes (%) (Auto) 9.2 % (1.0-10.0) Eosinophils (%) (Auto) 6.0 % (0.0-3.0) H Basophils (%) (Auto) 0.9 % (0.0-2.0) Height (Feet): 5 Height (Inches): 4.00 Weight (Pounds): 164 Medications Current Medications Medications (Trade) Dose Ordered Sig/Jesus Route PRN Reason Start Time Stop Time Status Last Admin Dose Admin Acetaminophen (Tylenol) 325 mg Q4H PRN ORAL For Pain 03/20/18 01:15 04/19/18 01:14 Albuterol Sulfate (Proventil) 2.5 mg Q6H PRN HHN wheezing or SOB 03/20/18 01:20 03/25/18 01:19 Amlodipine Besylate (Norvasc) 10 mg DAILY ORAL 03/20/18 09:00 04/19/18 08:59 03/20/18 09:10 Calcium Acetate (Phoslo) 667 mg TID ORAL 03/19/18 22:27 04/18/18 22:26 03/20/18 17:34 Clonidine HCl (Catapres Tab) 0.1 mg Q6HR PRN ORAL SBP>175 03/19/18 22:30 04/18/18 22:29 Dextrose (Dextrose 50%) 25 ml STAT PRN IV Hypoglycemia 03/19/18 23:00 04/18/18 22:59 Dextrose (Dextrose 50%) 50 ml STAT PRN IV Hypoglycemia 03/19/18 23:00 04/18/18 22:59 Docusate Sodium (Colace) 100 mg TID ORAL 03/20/18 18:00 04/18/18 22:27 03/20/18 17:34 Epoetin Jose (Procrit (for non ESRD use)) 10,000 units SUN-SUN-SUN SUBQ 03/20/18 21:00 04/19/18 20:59 Famotidine (Pepcid) 20 mg DAILY ORAL 03/20/18 09:00 04/19/18 08:59 03/20/18 09:09 Gabapentin (Neurontin) 100 mg THREE TIMES A DAY ORAL 03/19/18 22:28 04/18/18 22:27 03/20/18 17:34 Hydralazine HCl (Apresoline) 50 mg EVERY 8 HOURS ORAL 03/20/18 06:00 04/18/18 22:33 03/20/18 13:49 Insulin Aspart (NovoLOG) BEFORE MEALS AND HS SUBQ 03/20/18 06:30 04/19/18 06:29 03/20/18 06:11 Lactobacillus Acidophilus (Culturelle) 1 tab DAILY ORAL 03/20/18 09:00 04/19/18 08:59 03/20/18 09:09 Metoprolol Tartrate (Lopressor) 25 mg EVERY 12 HOURS ORAL 03/19/18 22:34 04/18/18 22:33 03/20/18 09:10 Vitamin B Complex/ Vit C/Folic Acid (Nephrovite) 1 tab DAILY ORAL 03/20/18 09:00 04/19/18 08:59 03/20/18 09:09 Vitamin D (Vitamin D) 1,000 intlu DAILY ORAL 03/20/18 09:00 04/19/18 08:59 03/20/18 09:09 Assessment/Plan Status: stable Assessment/Plan Anxiety d/o insomnia -Kathi Mcclendon M.D. Mar 20, 2018 21:39
[2018-03-21] VITALS: BP 156/73
[2018-03-21 04:00] VITALS: BP 175/84
[2018-03-21 04:47] LABS: BASOPHILS % (AUTO) 1.1 % (0.0-2.0); HEMATOCRIT 23.8 % (37.0-47.0); LYMPHOCYTES % (AUTO) 26.5 % (20.0-45.0); MEAN CORPUSCULAR VOLUME 89 FL (80-99); MONOCYTES % (AUTO) 9.6 % (1.0-10.0); NEUTROPHILS % (AUTO) 56.7 % (45.0-75.0); PLATELET COUNT 164 K/UL (150-450); RED BLOOD COUNT 2.68 M/UL (4.20-5.40); RED CELL DISTRIBUTION WIDTH 12.7 % (11.6-14.8); WHITE BLOOD COUNT 5.6 K/UL (4.8-10.8)
[2018-03-21 05:08] LABS: ALANINE AMINOTRANSFERASE 14 U/L (12-78); ALBUMIN 3.1 G/DL (3.4-5.0); ALBUMIN/GLOBULIN RATIO 0.9 (1.0-2.7); ALKALINE PHOSPHATASE 41 U/L (46-116); ANION GAP 11 mmol/L (5-15); ASPARTATE AMINO TRANSFERASE 14 U/L (15-37); BILIRUBIN,TOTAL 0.3 MG/DL (0.2-1.0); BLOOD UREA NITROGEN 82 mg/dL (7-18); CALCIUM 9.1 MG/DL (8.5-10.1); CARBON DIOXIDE 22 MMOL/L (21-32); CHLORIDE 112 MMOL/L (98-107); CREATININE 5.3 MG/DL (0.55-1.30); PHOSPHORUS 3.8 MG/DL (2.5-4.9); POTASSIUM 4.3 MMOL/L (3.5-5.1); SODIUM 145 MMOL/L (136-145)
[2018-03-21] MEDS: HydrALAZINE 50mg tab ORAL SCH ×2 (06:10→14:31)
[2018-03-21] MEDS: NovoLOG Insulin Flexpen SUBQ SCH ×4 (06:11→20:42)
[2018-03-21 08:00] VITALS: BP 188/83
[2018-03-21] MEDS ORDERED: Tubing IV Secondary IV ONE (08:26)
[2018-03-21] MEDS: Calcium Acetate 667mg Tab ORAL SCH ×3 (08:54→18:51)
[2018-03-21] MEDS: Docusate 100mg cap ORAL SCH ×3 (08:54→18:25)
[2018-03-21] MEDS: Lactobacillus-GG tablet ORAL SCH (08:54)
[2018-03-21] MEDS: Nephrovite tab (Rena-Vite) ORAL SCH (08:54)
[2018-03-21] MEDS: Vitamin D 400 INTLU TAB ORAL SCH (08:55)
[2018-03-21] MEDS ORDERED: cefTRIAXone 2 GM in D5W 55 ML IVPB SCH (10:45)
--- NOTE | 2018-03-21 10:45 | General Progress Note ---
Assessment/Plan Assessment/Plan S: I am ok O: appears comfortable, denies any pain or shortness of breath. PHYSICAL EXAMINATION: VITAL SIGNS: HEAD AND NECK: Atraumatic and normocephalic. Positive for the right-sided hemiparesis. CHEST: Clear to auscultation. No wheezing. No crackles. HEART: S1 and S2. Regular rate and rhythm. Negative for S3. Positive for questionable cardiac murmurs. ABDOMEN: Obese and soft. Bowel sounds normal. No gross organomegaly. NEUROLOGIC: The patient is awake, alert and oriented x3. Positive for slurred speech. MUSCULOSKELETAL: Positive for the left-sided hemiparesis, more prominent in the left upper extremity. Meds: reviewed and reconciled in chart , including but not limited to Procardia 30 mg bid ASSESSMENT: 1. Acute on chronic anemia. 2. Diabetes type 2. 3. Hypertension, uncontrolled. 4. Acute on chronic renal failure. 5. Cerebrovascular accident with left-sided hemiparesis. 6. Gastrointestinal and deep vein thrombosis prophylaxis. 7. Iron-deficiency anemia. 8. On anticoagulation. 9. UTI Plan: Nephrology Cardiology Psych notes reviewed start Ceftriaxon start her on ASA and will monitor Hgb level No additional ATC Subjective Allergies: Coded Allergies: PENICILLINS (Verified Allergy, Unknown, 11/10/09) Objective Last 24 Hour Vital Signs Date Time Temp Pulse Resp B/P (MAP) Pulse Ox O2 Delivery O2 Flow Rate FiO2 03/21/18 08:55 64 188/83 03/21/18 08:00 97.7 64 18 188/83 95 Room Air 97.7 03/21/18 06:10 175/84 03/21/18 04:00 99.3 57 20 175/84 92 Room Air 99.3 03/21/18 04:00 60 03/21/18 00:00 98.0 67 20 156/73 93 Room Air 98.0 03/21/18 00:00 77 03/20/18 21:41 68 157/83 03/20/18 21:40 153/83 03/20/18 20:36 60 20 Room Air 21 03/20/18 20:00 98.1 77 21 160/78 96 Room Air 98.1 03/20/18 20:00 71 03/20/18 16:00 98.4 60 20 154/91 97 Room Air 98.4 03/20/18 16:00 76 6/13/18 13:49 147/89 03/20/18 13:12 98.1 61 20 147/89 96 Room Air 98.1 03/20/18 12:57 98.2 61 20 151/87 96 Room Air 98.2 03/20/18 12:00 75 03/20/18 12:00 98.2 62 20 156/77 96 Room Air 98.2 Intake and Output 03/20/18 03/21/18 19:00 07:00 Intake Total 900 ml Output Total 1000 ml 1000 ml Balance -100 ml -1000 ml Intake Oral 900 ml Output Urine Total 1000 ml 1000 ml # Bowel Movements 1 1 Laboratory Tests 03/20/18 10:55: Urine Color Pale yellow, Urine Appearance Cloudy, Urine pH 6, Urine Specific [place] 1.010, Urine Protein 3+H, Urine Glucose (UA) Negative, Urine Ketones Negative, Urine Occult Blood 3+H, Urine Nitrite PositiveH, Urine Bilirubin Negative, Urine Urobilinogen Normal, Urine Leukocyte Esterase 2+H, Urine RBC 10- 15H, Urine WBC TntcH, Urine Squamous Epithelial Cells Few, Urine Bacteria ManyH 03/20/18 12:35: Stool Occult Blood Negative 03/20/18 16:40: White Blood Count 5.6, Red Blood Count 2.89L, Hemoglobin 8.4L, Hematocrit 25.5L , Mean Corpuscular Volume 88, Mean Corpuscular Hemoglobin 29.2, Mean Corpuscular Hemoglobin Concent 33.0, Red Cell Distribution Width 12.6, Platelet Count 162, Mean Platelet Volume 5.7L, Neutrophils (%) (Auto) 55.8, Lymphocytes ( %) (Auto) 28.1, Monocytes (%) (Auto) 9.2, Eosinophils (%) (Auto) 6.0H, Basophils (%) (Auto) 0.9 03/20/18 20:50: Stool Occult Blood Negative 03/21/18 04:40: White Blood Count 5.6, Red Blood Count 2.68L, Hemoglobin 8.0L, Hematocrit 23.8L , Mean Corpuscular Volume 89, Mean Corpuscular Hemoglobin 29.7, Mean Corpuscular Hemoglobin Concent 33.6, Red Cell Distribution Width 12.7, Platelet Count 164, Mean Platelet Volume 5.3L, Neutrophils (%) (Auto) 56.7, Lymphocytes ( %) (Auto) 26.5, Monocytes (%) (Auto) 9.6, Eosinophils (%) (Auto) 6.0H, Basophils (%) (Auto) 1.1, Sodium Level 145, Potassium Level 4.3, Chloride Level 112H, Carbon Dioxide Level 22, Anion Gap 11, Blood Urea Nitrogen 82H, Creatinine 5.3H, Estimat Glomerular Filtration Rate 9.7, Glucose Level 128H, Uric Acid 6.1, Calcium Level 9.1, Phosphorus Level 3.8, Magnesium Level 1.9, Total Bilirubin 0.3, Aspartate Amino Transf (AST/SGOT) 14L, Alanine Aminotransferase (ALT/SGPT) 14, Alkaline Phosphatase 41L, C-Reactive Protein, Quantitative 1.4H, Pro-B-Type Natriuretic Peptide 7517H, Total Protein 6.4, Albumin 3.1L, Globulin 3.3, Albumin/Globulin Ratio 0.9L, Hepatitis B Surface Antigen [Pending], Hepatitis B Surface Antibody, Quant [Pending], Hepatitis C Antibody [Pending] 03/21/18 05:00: Stool Occult Blood Negative Height (Feet): 5 Height (Inches): 4.00 Weight (Pounds): 164 Danie Banegas MD Mar 21, 2018 10:45
[2018-03-21] MEDS ORDERED: Aspirin Baby 81mg ORAL SCH (11:30)
--- NOTE | 2018-03-21 11:43 | General Progress Note ---
Assessment/Plan Assessment/Plan Anxiety d/o insomnia -remeron prn Subjective Date patient seen: Mar 21, 2018 Neurologic/Psychiatric: Reports: anxiety Allergies: Coded Allergies: PENICILLINS (Verified Allergy, Unknown, 11/10/09) Subjective the pt slept well no side effects. Objective Last 24 Hour Vital Signs Date Time Temp Pulse Resp B/P (MAP) Pulse Ox O2 Delivery O2 Flow Rate FiO2 03/21/18 08:55 64 188/83 03/21/18 08:00 97.7 64 18 188/83 95 Room Air 97.7 03/21/18 07:35 61 03/21/18 06:10 175/84 03/21/18 04:00 99.3 57 20 175/84 92 Room Air 99.3 03/21/18 04:00 60 03/21/18 00:00 98.0 67 20 156/73 93 Room Air 98.0 03/21/18 00:00 77 03/20/18 21:41 68 157/83 03/20/18 21:40 153/83 03/20/18 20:36 60 20 Room Air 21 03/20/18 20:00 98.1 77 21 160/78 96 Room Air 98.1 03/20/18 20:00 71 03/20/18 16:00 98.4 60 20 154/91 97 Room Air 98.4 03/20/18 16:00 76 03/20/18 13:49 147/89 03/20/18 13:12 98.1 61 20 147/89 96 Room Air 98.1 03/20/18 12:57 98.2 61 20 151/87 96 Room Air 98.2 03/20/18 12:00 75 03/20/18 12:00 98.2 62 20 156/77 96 Room Air 98.2 Intake and Output 03/20/18 03/21/18 19:00 07:00 Intake Total 900 ml Output Total 1000 ml 1000 ml Balance -100 ml -1000 ml Intake Oral 900 ml Output Urine Total 1000 ml 1000 ml # Bowel Movements 1 1 Laboratory Tests 03/20/18 12:35: Stool Occult Blood Negative 03/20/18 16:40: White Blood Count 5.6, Red Blood Count 2.89L, Hemoglobin 8.4L, Hematocrit 25.5L , Mean Corpuscular Volume 88, Mean Corpuscular Hemoglobin 29.2, Mean Corpuscular Hemoglobin Concent 33.0, Red Cell Distribution Width 12.6, Platelet Count 162, Mean Platelet Volume 5.7L, Neutrophils (%) (Auto) 55.8, Lymphocytes ( %) (Auto) 28.1, Monocytes (%) (Auto) 9.2, Eosinophils (%) (Auto) 6.0H, Basophils (%) (Auto) 0.9 03/20/18 20:50: Stool Occult Blood Negative 03/21/18 04:40: White Blood Count 5.6, Red Blood Count 2.68L, Hemoglobin 8.0L, Hematocrit 23.8L , Mean Corpuscular Volume 89, Mean Corpuscular Hemoglobin 29.7, Mean Corpuscular Hemoglobin Concent 33.6, Red Cell Distribution Width 12.7, Platelet Count 164, Mean Platelet Volume 5.3L, Neutrophils (%) (Auto) 56.7, Lymphocytes ( %) (Auto) 26.5, Monocytes (%) (Auto) 9.6, Eosinophils (%) (Auto) 6.0H, Basophils (%) (Auto) 1.1, Sodium Level 145, Potassium Level 4.3, Chloride Level 112H, Carbon Dioxide Level 22, Anion Gap 11, Blood Urea Nitrogen 82H, Creatinine 5.3H, Estimat Glomerular Filtration Rate 9.7, Glucose Level 128H, Uric Acid 6.1, Calcium Level 9.1, Phosphorus Level 3.8, Magnesium Level 1.9, Total Bilirubin 0.3, Aspartate Amino Transf (AST/SGOT) 14L, Alanine Aminotransferase (ALT/SGPT) 14, Alkaline Phosphatase 41L, C-Reactive Protein, Quantitative 1.4H, Pro-B-Type Natriuretic Peptide 7517H, Total Protein 6.4, Albumin 3.1L, Globulin 3.3, Albumin/Globulin Ratio 0.9L, Hepatitis B Surface Antigen [Pending], Hepatitis B Surface Antibody, Quant [Pending], Hepatitis C Antibody [Pending] 03/21/18 05:00: Stool Occult Blood Negative Height (Feet): 5 Height (Inches): 4.00 Weight (Pounds): 164 General Appearance: WD/WN, no apparent distress, alert Neurologic: oriented x 3, responsive, depressed affect Kathi Villarreal M.D. Mar 21, 2018 11:43
[2018-03-21 12:00] VITALS: BP 186/72
[2018-03-21] MEDS ORDERED: Ciprofloxacin 500mg tab ORAL SCH (13:00)
--- NOTE | 2018-03-21 13:27 | Nephrology Progress Note ---
Assessment/Plan Problem List: (1) Acute on chronic renal failure (2) Symptomatic anemia Assessment Renal failure, likely chronic ? Superimposed acute renal failure Diabetic Nephropathy / Proteinuria UTI Sever Anemia / symptomatic HTN CVA left weakness Plan Urine studies Kidney ERICKA pending 2D echo Pending Anemia lamb EPO PATIENT DECLINES DIALYSIS TREATMENT Per orders Subjective ROS Limited/Unobtainable: No Constitutional: Reports: malaise, weakness Objective Objective Last 24 Hour Vital Signs Date Time Temp Pulse Resp B/P (MAP) Pulse Ox O2 Delivery O2 Flow Rate FiO2 03/21/18 12:00 98.7 63 18 186/72 95 Room Air 98.7 03/21/18 11:41 62 03/21/18 08:55 64 188/83 03/21/18 08:00 97.7 64 18 188/83 95 Room Air 97.7 03/21/18 07:35 61 03/21/18 06:10 175/84 03/21/18 04:00 99.3 57 20 175/84 92 Room Air 99.3 03/21/18 04:00 60 03/21/18 00:00 98.0 67 20 156/73 93 Room Air 98.0 03/21/18 00:00 77 03/20/18 21:41 68 157/83 03/20/18 21:40 153/83 03/20/18 20:36 60 20 Room Air 21 03/20/18 20:00 98.1 77 21 160/78 96 Room Air 98.1 03/20/18 20:00 71 03/20/18 16:00 98.4 60 20 154/91 97 Room Air 98.4 03/20/18 16:00 76 03/20/18 13:49 147/89 Intake and Output 03/20/18 03/21/18 19:00 07:00 Intake Total 900 ml Output Total 1000 ml 1000 ml Balance -100 ml -1000 ml Intake Oral 900 ml Output Urine Total 1000 ml 1000 ml # Bowel Movements 1 1 Laboratory Tests 03/20/18 16:40: White Blood Count 5.6, Red Blood Count 2.89L, Hemoglobin 8.4L, Hematocrit 25.5L , Mean Corpuscular Volume 88, Mean Corpuscular Hemoglobin 29.2, Mean Corpuscular Hemoglobin Concent 33.0, Red Cell Distribution Width 12.6, Platelet Count 162, Mean Platelet Volume 5.7L, Neutrophils (%) (Auto) 55.8, Lymphocytes ( %) (Auto) 28.1, Monocytes (%) (Auto) 9.2, Eosinophils (%) (Auto) 6.0H, Basophils (%) (Auto) 0.9 03/20/18 20:50: Stool Occult Blood Negative 03/21/18 04:40: White Blood Count 5.6, Red Blood Count 2.68L, Hemoglobin 8.0L, Hematocrit 23.8L , Mean Corpuscular Volume 89, Mean Corpuscular Hemoglobin 29.7, Mean Corpuscular Hemoglobin Concent 33.6, Red Cell Distribution Width 12.7, Platelet Count 164, Mean Platelet Volume 5.3L, Neutrophils (%) (Auto) 56.7, Lymphocytes ( %) (Auto) 26.5, Monocytes (%) (Auto) 9.6, Eosinophils (%) (Auto) 6.0H, Basophils (%) (Auto) 1.1, Sodium Level 145, Potassium Level 4.3, Chloride Level 112H, Carbon Dioxide Level 22, Anion Gap 11, Blood Urea Nitrogen 82H, Creatinine 5.3H, Estimat Glomerular Filtration Rate 9.7, Glucose Level 128H, Uric Acid 6.1, Calcium Level 9.1, Phosphorus Level 3.8, Magnesium Level 1.9, Total Bilirubin 0.3, Aspartate Amino Transf (AST/SGOT) 14L, Alanine Aminotransferase (ALT/SGPT) 14, Alkaline Phosphatase 41L, C-Reactive Protein, Quantitative 1.4H, Pro-B-Type Natriuretic Peptide 7517H, Total Protein 6.4, Albumin 3.1L, Globulin 3.3, Albumin/Globulin Ratio 0.9L, Hepatitis B Surface Antigen [Pending], Hepatitis B Surface Antibody, Quant [Pending], Hepatitis C Antibody [Pending] 03/21/18 05:00: Stool Occult Blood Negative Height (Feet): 5 Height (Inches): 4.00 Weight (Pounds): 164 GARIMA OLIVEROS Mar 21, 2018 13:27
--- NOTE | 2018-03-21 15:00 | Cardiology Report ---
APPROVED REPORT EXAM: Two-dimensional and M-mode echocardiogram with Doppler and color Doppler. INDICATION Hypertension/HCVD M-Mode DIMENSIONS IVSd1.8 (0.7-1.1cm)Left Atrium (MM)4.6 (1.6-4.0cm) LVDd4.8 (3.5-5.6cm)Aortic Root4.2 (2.0-3.7cm) PWd1.9 (0.7-1.1cm)Aortic Cusp Exc.2.5 (1.5-2.0cm) IVSs2.4 cm LVDs3.1 (2.5-4.0cm) PWs1.8 cm Technically difficult study due to poor acoustical windows. Normal left ventricular chamber size, systolic function and wall motion to extent visualized. Left ventricular ejection fraction estimated to be 60 %. Mild left ventricular hypertrophy by 2-D. No evidence of pericardial fat or effusion. Moderate Left atrial enlargement. Mild right atrial enlargements . Right ventricular chamber sizes is within normal limits. Focal aortic valve sclerosis with adequate cusp excursion. Mildly Thickened mitral valve leaflets with normal excursion. Moderately Mitral annulus and aortic root calcification. Echogeneic material noted on posterior mitral valve leaflet maybe calcification . Pulmonic valve not well visualized. Normal tricuspid valve structure. IVC dilated at 2.4 cm with without physiologic collapse suggestive of increased RA pressure. A color flow and spectral Doppler study was performed and revealed: No aortic regurgitation. Moderate mitral regurgitation. Normal left ventricular diastolic function . Mild tricuspid regurgitation. Tricuspid systolic velocities suggests peak right ventricular systolic pressure of 21 mmHg. Trace Pulmonic regurgitation present.
--- NOTE | 2018-03-21 15:05 | Cardiology Report ---
APPROVED REPORT EKG Measurement Heart [id number] SD [id number] [id number] Suspect arm lead reversal, interpretation assumes no reversal Normal sinus rhythm with sinus arrhythmia Lateral infarct, age undetermined Abnormal ECG
[2018-03-21 16:00] VITALS: BP 129/58
[2018-03-21] MEDS: Metoprolol Tartrate 50mg tab ORAL SCH ×2 (17:57→20:39)
[2018-03-21 18:11] LABS: CREATININE 5.3 MG/DL (0.55-1.30)
[2018-03-21 20:00] VITALS: BP 160/75
--- NOTE | 2018-03-21 23:33 | Cardiology Progress Note ---
Assessment/Plan Assessment/Plan 1. Paroxysmal atrial tachycardia. This rhythm does not require anticoagulation therapy, although paroxysmal atrial fibrillation has not been completely excluded, off Eliquis. 2. Accelerated hypertension, continue amlodipine, metoprolol and hydralazine. 3. Normal LV systolic function with LVEF at 55%. Subjective Subjective She had another episode of paroxysmal atrial tachycardia. Now sinus rhythm at 64. Objective Last 24 Hour Vital Signs Date Time Temp Pulse Resp B/P (MAP) Pulse Ox O2 Delivery O2 Flow Rate FiO2 03/21/18 20:39 64 160/75 03/21/18 20:00 97.2 64 21 160/75 96 Room Air 97.2 03/21/18 19:14 68 18 Room Air 21 03/21/18 18:25 70 129/58 03/21/18 17:57 70 129/58 03/21/18 16:00 98.6 70 18 129/58 95 Room Air 98.6 03/21/18 15:26 70 03/21/18 14:31 186/72 03/21/18 12:30 63 20 Room Air 21 03/21/18 12:00 98.7 63 18 186/72 95 Room Air 98.7 03/21/18 11:41 62 03/21/18 08:55 64 188/83 03/21/18 08:00 97.7 64 18 188/83 95 Room Air 97.7 03/21/18 07:35 61 03/21/18 06:10 175/84 03/21/18 04:00 99.3 57 20 175/84 92 Room Air 99.3 03/21/18 04:00 60 03/21/18 00:00 98.0 67 20 156/73 93 Room Air 98.0 03/21/18 00:00 77 Cardiovascular: systolic murmur Intake and Output 03/20/18 03/21/18 19:00 07:00 Intake Total 900 ml Output Total 1000 ml 1000 ml Balance -100 ml -1000 ml Intake Oral 900 ml Output Urine Total 1000 ml 1000 ml # Bowel Movements 1 1 2D Echo: EF 55%, Grade I LVDD, RVSP 36 mmhg, Mild MR, High RA pressure Laboratory Tests Test 03/21/18 04:40 03/21/18 05:00 White Blood Count 5.6 K/UL (4.8-10.8) Red Blood Count 2.68 M/UL (4.20-5.40) L Hemoglobin 8.0 G/DL (12.0-16.0) L Hematocrit 23.8 % (37.0-47.0) L Mean Corpuscular Volume 89 FL (80-99) Mean Corpuscular Hemoglobin 29.7 PG (27.0-31.0) Mean Corpuscular Hemoglobin Concent 33.6 G/DL (32.0-36.0) Red Cell Distribution Width 12.7 % (11.6-14.8) Platelet Count 164 K/UL (150-450) Mean Platelet Volume 5.3 FL (6.5-10.1) L Neutrophils (%) (Auto) 56.7 % (45.0-75.0) Lymphocytes (%) (Auto) 26.5 % (20.0-45.0) Monocytes (%) (Auto) 9.6 % (1.0-10.0) Eosinophils (%) (Auto) 6.0 % (0.0-3.0) H Basophils (%) (Auto) 1.1 % (0.0-2.0) Sodium Level 145 MMOL/L (136-145) Potassium Level 4.3 MMOL/L (3.5-5.1) Chloride Level 112 MMOL/L (98-107) H Carbon Dioxide Level 22 MMOL/L (21-32) Anion Gap 11 mmol/L (5-15) Blood Urea Nitrogen 82 mg/dL (7-18) H Creatinine 5.3 MG/DL (0.55-1.30) H Estimat Glomerular Filtration Rate 9.7 mL/min (>60) Glucose Level 128 MG/DL (74-106) H Uric Acid 6.1 MG/DL (2.6-7.2) Calcium Level 9.1 MG/DL (8.5-10.1) Phosphorus Level 3.8 MG/DL (2.5-4.9) Magnesium Level 1.9 MG/DL (1.8-2.4) Total Bilirubin 0.3 MG/DL (0.2-1.0) Aspartate Amino Transf (AST/SGOT) 14 U/L (15-37) L Alanine Aminotransferase (ALT/SGPT) 14 U/L (12-78) Alkaline Phosphatase 41 U/L (46-116) L C-Reactive Protein, Quantitative 1.4 mg/dL (0.00-0.90) H Pro-B-Type Natriuretic Peptide 7517 pg/mL (0-125) H Total Protein 6.4 G/DL (6.4-8.2) Albumin 3.1 G/DL (3.4-5.0) L Globulin 3.3 g/dL Albumin/Globulin Ratio 0.9 (1.0-2.7) L Hepatitis B Surface Antigen Pending Hepatitis B Surface Antibody, Quant Pending Hepatitis C Antibody Pending Stool Occult Blood Negative (NEGATIVE) Microbiology Date/Time Source Procedure Growth Status 03/20/18 10:55 Urine,Clean Catch Urine Culture - Preliminary Gram Negative Bacillus 1 Resulted Objective HEENT: Atraumatic, normocephalic. ENT, pupils are equal, round, and reactive to light and accommodation. Conjunctival pallor is seen. NECK: JVP less than 5 cm. No carotid bruits. Carotid upstrokes 2+ bilaterally. CARDIOVASCULAR: Normal S1, S2. Regular rate and rhythm. No murmurs, gallops, or rubs. PMI is at fourth intercostal space in the midclavicular line. LUNGS: Bilateral rhonchi. ABDOMEN: Soft, nontender, and nondistended. No hepatosplenomegaly. Positive bowel sounds. EXTREMITIES: There is 1 to 2+ bilateral lower extremity edema. Triston Joy MD Mar 21, 2018 23:33
[2018-03-22] VITALS: BP 185/78
[2018-03-22] MEDS ORDERED: Albuterol ud Inhalation HHN PRN (01:30)
[2018-03-22 04:00] VITALS: BP 174/72
[2018-03-22] MEDS: NovoLOG Insulin Flexpen SUBQ SCH ×4 (06:26→21:26)
[2018-03-22] MEDS: Ciprofloxacin 500mg tab ORAL SCH (06:27)
[2018-03-22 08:00] VITALS: BP 178/93
[2018-03-22] MEDS ORDERED: Metoprolol Tartrate 50mg tab ORAL SCH (09:00)
[2018-03-22] MEDS ORDERED: Aspirin Baby 81mg ORAL SCH (09:00)
[2018-03-22] MEDS: Vitamin D 400 INTLU TAB ORAL SCH (09:26)
[2018-03-22] MEDS: Calcium Acetate 667mg Tab ORAL SCH ×3 (09:27→18:27)
[2018-03-22] MEDS: Aspirin Baby 81mg ORAL SCH (09:27)
[2018-03-22] MEDS: Docusate 100mg cap ORAL SCH ×3 (09:27→18:27)
[2018-03-22] MEDS: Lactobacillus-GG tablet ORAL SCH (09:27)
[2018-03-22] MEDS: Nephrovite tab (Rena-Vite) ORAL SCH (09:28)
--- NOTE | 2018-03-22 10:22 | Nephrology Progress Note ---
Assessment/Plan Problem List: (1) Acute on chronic renal failure (2) Symptomatic anemia Assessment Renal failure, likely chronic ? Superimposed acute renal failure Diabetic Nephropathy / Proteinuria UTI Sever Anemia / symptomatic HTN CVA left weakness Plan CrCl 6 Kidney ERICKA pending 2D echo [id number] 60 Anemia lamb EPO PATIENT DECLINES DIALYSIS TREATMENT Per orders Subjective ROS Limited/Unobtainable: No Constitutional: Reports: malaise, weakness Objective Objective Last 24 Hour Vital Signs Date Time Temp Pulse Resp B/P (MAP) Pulse Ox O2 Delivery O2 Flow Rate FiO2 03/22/18 09:28 60 178/93 03/22/18 09:27 60 178/93 03/22/18 09:27 178/93 03/22/18 08:00 97.7 60 19 178/93 97 Room Air 97.7 03/22/18 04:00 98.2 58 20 174/72 96 Room Air 98.2 03/22/18 00:57 185/78 03/22/18 00:00 98.9 62 20 185/78 96 Room Air 98.9 03/21/18 20:39 64 160/75 03/21/18 20:00 97.2 64 21 160/75 96 Room Air 97.2 03/21/18 19:14 68 18 Room Air 21 03/21/18 18:25 70 129/58 03/21/18 17:57 70 129/58 03/21/18 16:00 98.6 70 18 129/58 95 Room Air 98.6 03/21/18 15:26 70 03/21/18 14:31 186/72 03/21/18 12:30 63 20 Room Air 21 03/21/18 12:00 98.7 63 18 186/72 95 Room Air 98.7 03/21/18 11:41 62 Intake and Output 03/21/18 03/22/18 19:00 07:00 Intake Total 800 ml 240 ml Output Total 600 ml 700 ml Balance 200 ml -460 ml Intake Oral 800 ml 240 ml Output Urine Total 600 ml 700 ml # Bowel Movements 3 1 Laboratory Tests 03/21/18 23:50: Urine Random Sodium 74 Height (Feet): 5 Height (Inches): 4.00 Weight (Pounds): 164 General Appearance: no apparent distress Cardiovascular: normal rate Respiratory/Chest: decreased breath sounds Abdomen: soft GARIMA OLIVEROS 15, 2018 10:22
--- NOTE | 2018-03-22 11:56 | Cardiology Progress Note ---
Assessment/Plan Assessment/Plan 1. Paroxysmal atrial tachycardia. This rhythm does not require anticoagulation therapy, although paroxysmal atrial fibrillation has not been completely excluded, off Eliquis. 2. Accelerated hypertension, continue Nifedipine and hydralazine, increase metoprolol to 100mg bid. 3. Normal LV systolic function with LVEF at 55%. Subjective Subjective Transferred to the med-surg unit. Objective Last 24 Hour Vital Signs Date Time Temp Pulse Resp B/P (MAP) Pulse Ox O2 Delivery O2 Flow Rate FiO2 03/22/18 09:28 60 178/93 03/22/18 09:27 60 178/93 03/22/18 09:27 178/93 03/22/18 08:17 59 16 Room Air 21 03/22/18 08:00 97.7 60 19 178/93 97 Room Air 97.7 03/22/18 04:00 98.2 58 20 174/72 96 Room Air 98.2 03/22/18 00:57 185/78 03/22/18 00:00 98.9 62 20 185/78 96 Room Air 98.9 03/21/18 20:39 64 160/75 03/21/18 20:00 97.2 64 21 160/75 96 Room Air 97.2 03/21/18 19:14 68 18 Room Air 21 03/21/18 18:25 70 129/58 03/21/18 17:57 70 129/58 03/21/18 16:00 98.6 70 18 129/58 95 Room Air 98.6 03/21/18 15:26 70 03/21/18 14:31 186/72 03/21/18 12:30 63 20 Room Air 21 03/21/18 12:00 98.7 63 18 186/72 95 Room Air 98.7 Intake and Output 03/21/18 03/22/18 19:00 07:00 Intake Total 800 ml 240 ml Output Total 600 ml 700 ml Balance 200 ml -460 ml Intake Oral 800 ml 240 ml Output Urine Total 600 ml 700 ml # Bowel Movements 3 1 2D Echo: EF 55%, Grade I LVDD, RVSP 36 mmhg, Mild MR, High RA pressure Laboratory Tests Test 03/21/18 23:50 Urine Random Sodium 74 mmol/L (20-110) Microbiology Date/Time Source Procedure Growth Status 03/19/18 19:50 Nasal Nares MRSA Culture - Final NO METHICILLIN RESISTANT STAPH AUREUS... Complete 03/20/18 10:55 Urine,Clean Catch Urine Culture - Final Escherichia Coli Complete 03/19/18 19:50 Rectum VRE Culture - Final NO VANCOMYCIN RESISTANT ENTEROCOCCUS ... Complete Objective HEENT: Atraumatic, normocephalic. ENT, pupils are equal, round, and reactive to light and accommodation. Conjunctival pallor is seen. NECK: JVP less than 5 cm. No carotid bruits. Carotid upstrokes 2+ bilaterally. CARDIOVASCULAR: Normal S1, S2. Regular rate and rhythm. No murmurs, gallops, or rubs. PMI is at fourth intercostal space in the midclavicular line. LUNGS: Bilateral rhonchi. ABDOMEN: Soft, nontender, and nondistended. No hepatosplenomegaly. Positive bowel sounds. EXTREMITIES: There is 1 to 2+ bilateral lower extremity edema. Triston Joy MD Mar 22, 2018 11:56
[2018-03-22 12:00] VITALS: BP 129/70
[2018-03-22] MEDS: HydrALAZINE 25mg tab ORAL SCH ×2 (13:21→21:20)
--- NOTE | 2018-03-22 13:25 | General Progress Note ---
Assessment/Plan Assessment/Plan S: I am ok O: appears comfortable, denies any pain or shortness of breath. PHYSICAL EXAMINATION: VITAL SIGNS: HEAD AND NECK: Atraumatic and normocephalic. Positive for the right-sided hemiparesis. CHEST: Clear to auscultation. No wheezing. No crackles. HEART: S1 and S2. Regular rate and rhythm. Negative for S3. Positive for questionable cardiac murmurs. ABDOMEN: Obese and soft. Bowel sounds normal. No gross organomegaly. NEUROLOGIC: The patient is awake, alert and oriented x3. Positive for slurred speech. MUSCULOSKELETAL: Positive for the left-sided hemiparesis, more prominent in the left upper extremity. Meds: reviewed and reconciled in chart , including but not limited to Procardia 30 mg bid ASSESSMENT: 1. Acute on chronic anemia. 2. Diabetes type 2. 3. Hypertension, uncontrolled. 4. Acute on chronic renal failure. 5. Cerebrovascular accident with left-sided hemiparesis. 6. Gastrointestinal and deep vein thrombosis prophylaxis. 7. Iron-deficiency anemia. 8. On anticoagulation. 9. UTI Plan: Nephrology Cardiology Psych notes reviewed start Ceftriaxon No additional ATC will monitor Hgb. continue ASA. Will monitor CT, and BP Subjective Allergies: Coded Allergies: PENICILLINS (Verified Allergy, Unknown, 11/10/09) Objective Last 24 Hour Vital Signs Date Time Temp Pulse Resp B/P (MAP) Pulse Ox O2 Delivery O2 Flow Rate FiO2 03/22/18 13:21 129/70 03/22/18 12:00 98.4 50 21 129/70 96 Room Air 98.4 03/22/18 09:28 60 178/93 03/22/18 09:27 60 178/93 03/22/18 09:27 178/93 03/22/18 08:17 59 16 Room Air 21 03/22/18 08:00 97.7 60 19 178/93 97 Room Air 97.7 03/22/18 04:00 98.2 58 20 174/72 96 Room Air 98.2 03/22/18 00:57 185/78 03/22/18 00:00 98.9 62 20 185/78 96 Room Air 98.9 03/21/18 20:39 64 160/75 03/21/18 20:00 97.2 64 21 160/75 96 Room Air 97.2 03/21/18 19:14 68 18 Room Air 21 03/21/18 18:25 70 129/58 03/21/18 17:57 70 129/58 03/21/18 16:00 98.6 70 18 129/58 95 Room Air 98.6 03/21/18 15:26 70 03/21/18 14:31 186/72 Intake and Output 03/21/18 03/22/18 19:00 07:00 Intake Total 800 ml 240 ml Output Total 600 ml 700 ml Balance 200 ml -460 ml Intake Oral 800 ml 240 ml Output Urine Total 600 ml 700 ml # Bowel Movements 3 1 Laboratory Tests 03/21/18 23:50: Urine Random Sodium 74 Height (Feet): 5 Height (Inches): 4.00 Weight (Pounds): 164 Danie Banegas MD Mar 22, 2018 13:25
[2018-03-22 16:00] VITALS: BP 154/67
[2018-03-22 20:00] VITALS: BP 151/72
[2018-03-22] MEDS ORDERED: Epogen (for non ESRD use) SUBQ SCH (21:00)
--- NOTE | 2018-03-22 23:13 | General Progress Note ---
Assessment/Plan Assessment/Plan Anxiety d/o insomnia -remeron prn Subjective Neurologic/Psychiatric: Reports: anxiety, depressed Allergies: Coded Allergies: PENICILLINS (Verified Allergy, Unknown, 11/10/09) Subjective the pt slept well no side effects. Objective Last 24 Hour Vital Signs Date Time Temp Pulse Resp B/P (MAP) Pulse Ox O2 Delivery O2 Flow Rate FiO2 03/22/18 21:33 57 16 Room Air 21 03/22/18 21:22 56 151/72 03/22/18 21:21 56 151/72 03/22/18 21:20 151/72 03/22/18 16:00 97.0 51 20 154/67 97 Room Air 97.0 03/22/18 13:21 129/70 03/22/18 12:00 98.4 50 21 129/70 96 Room Air 98.4 03/22/18 09:28 60 178/93 03/22/18 09:27 60 178/93 03/22/18 09:27 178/93 03/22/18 08:17 59 16 Room Air 21 03/22/18 08:00 97.7 60 19 178/93 97 Room Air 97.7 03/22/18 04:00 98.2 58 20 174/72 96 Room Air 98.2 03/22/18 00:57 185/78 03/22/18 00:00 98.9 62 20 185/78 96 Room Air 98.9 Intake and Output 03/21/18 03/22/18 19:00 07:00 Intake Total 800 ml 240 ml Output Total 600 ml 700 ml Balance 200 ml -460 ml Intake Oral 800 ml 240 ml Output Urine Total 600 ml 700 ml # Bowel Movements 3 1 Laboratory Tests 03/21/18 23:50: Urine Random Sodium 74 Height (Feet): 5 Height (Inches): 4.00 Weight (Pounds): 164 General Appearance: no apparent distress, alert Kathi Villarreal M.D. Mar 22, 2018 23:13
[2018-03-23] VITALS: BP 156/79
[2018-03-23] MEDS: Ciprofloxacin 500mg tab ORAL SCH ×2 (01:07→18:06)
[2018-03-23 04:00] VITALS: BP 154/65
[2018-03-23] MEDS: HydrALAZINE 25mg tab ORAL SCH ×3 (05:56→21:57)
[2018-03-23] MEDS: NovoLOG Insulin Flexpen SUBQ SCH ×4 (05:57→20:23)
[2018-03-23 08:00] VITALS: BP 124/62
[2018-03-23] MEDS: Lactobacillus-GG tablet ORAL SCH (09:18)
[2018-03-23] MEDS: Aspirin Baby 81mg ORAL SCH (09:18)
[2018-03-23] MEDS: Calcium Acetate 667mg Tab ORAL SCH ×3 (09:18→18:06)
[2018-03-23] MEDS: Nephrovite tab (Rena-Vite) ORAL SCH (09:21)
[2018-03-23] MEDS: Vitamin D 400 INTLU TAB ORAL SCH (09:22)
[2018-03-23] MEDS: Docusate 100mg cap ORAL SCH ×3 (09:24→18:06)
--- NOTE | 2018-03-23 11:25 | Nephrology Progress Note ---
Assessment/Plan Problem List: (1) Anemia (2) Acute on chronic renal failure (3) HTN (hypertension) Plan advised HD watch BP follow labs Subjective Subjective wants to eat syriac food Objective Objective Last 24 Hour Vital Signs Date Time Temp Pulse Resp B/P (MAP) Pulse Ox O2 Delivery O2 Flow Rate FiO2 03/23/18 09:00 52 03/23/18 09:00 54 124/62 03/23/18 08:55 60 16 Room Air 21 03/23/18 08:00 98.6 54 18 124/62 100 Room Air 98.6 03/23/18 05:56 154/65 03/23/18 04:00 97.6 52 20 154/65 95 97.6 03/23/18 00:00 97.5 54 20 156/79 100 Room Air 97.5 03/22/18 21:33 57 16 Room Air 21 03/22/18 21:22 56 151/72 03/22/18 21:21 56 151/72 03/22/18 21:20 151/72 03/22/18 20:00 97.5 54 20 151/72 100 Room Air 97.5 03/22/18 16:00 97.0 51 20 154/67 97 Room Air 97.0 03/22/18 13:21 129/70 03/22/18 12:00 98.4 50 21 129/70 96 Room Air 98.4 Intake and Output 03/22/18 03/23/18 19:00 07:00 Intake Total 1200 ml 450 ml Output Total 1000 ml 450 ml Balance 200 ml 0 ml Intake Oral 1200 ml 450 ml Output Urine Total 1000 ml 450 ml # Bowel Movements 2 2 Height (Feet): 5 Height (Inches): 4.00 Weight (Pounds): 164 Cardiovascular: normal rate Respiratory/Chest: lungs clear Extremities: trace edema Liu Ayala MD Mar 23, 2018 11:25
[2018-03-23 12:00] VITALS: BP 135/79
--- NOTE | 2018-03-23 12:30 | Cardiology Progress Note ---
Assessment/Plan Assessment/Plan 1. Paroxysmal atrial tachycardia. This rhythm does not require anticoagulation therapy, although paroxysmal atrial fibrillation has not been completely excluded, off Eliquis. 2. Accelerated hypertension, continue Nifedipine, hydralazine and metoprolol. 3. Normal LV systolic function with LVEF at 55%. Subjective Subjective No cardiac events reported. Objective Last 24 Hour Vital Signs Date Time Temp Pulse Resp B/P (MAP) Pulse Ox O2 Delivery O2 Flow Rate FiO2 03/23/18 09:00 52 03/23/18 09:00 54 124/62 03/23/18 08:55 60 16 Room Air 21 03/23/18 08:00 98.6 54 18 124/62 100 Room Air 98.6 03/23/18 05:56 154/65 03/23/18 04:00 97.6 52 20 154/65 95 97.6 03/23/18 00:00 97.5 54 20 156/79 100 Room Air 97.5 03/22/18 21:33 57 16 Room Air 21 03/22/18 21:22 56 151/72 03/22/18 21:21 56 151/72 03/22/18 21:20 151/72 03/22/18 20:00 97.5 54 20 151/72 100 Room Air 97.5 03/22/18 16:00 97.0 51 20 154/67 97 Room Air 97.0 03/22/18 13:21 129/70 Intake and Output 03/22/18 03/23/18 19:00 07:00 Intake Total 1200 ml 450 ml Output Total 1000 ml 450 ml Balance 200 ml 0 ml Intake Oral 1200 ml 450 ml Output Urine Total 1000 ml 450 ml # Bowel Movements 2 2 2D Echo: EF 55%, Grade I LVDD, RVSP 36 mmhg, Mild MR, High RA pressure Objective HEENT: Atraumatic, normocephalic. ENT, pupils are equal, round, and reactive to light and accommodation. Conjunctival pallor is seen. NECK: JVP less than 5 cm. No carotid bruits. Carotid upstrokes 2+ bilaterally. CARDIOVASCULAR: Normal S1, S2. Regular rate and rhythm. No murmurs, gallops, or rubs. PMI is at fourth intercostal space in the midclavicular line. LUNGS: Bilateral rhonchi. ABDOMEN: Soft, nontender, and nondistended. No hepatosplenomegaly. Positive bowel sounds. EXTREMITIES: There is 1 to 2+ bilateral lower extremity edema. Triston Joy MD Mar 23, 2018 12:30
[2018-03-23 16:20] VITALS: BP 148/71
[2018-03-23 20:00] VITALS: BP 107/78
--- NOTE | 2018-03-23 22:15 | General Progress Note ---
Assessment/Plan Assessment/Plan Anxiety d/o insomnia -remeron prn Subjective Date patient seen: Mar 23, 2018 Neurologic/Psychiatric: Reports: anxiety, depressed Allergies: Coded Allergies: PENICILLINS (Verified Allergy, Unknown, 11/10/09) Subjective the pt is doing well Objective Last 24 Hour Vital Signs Date Time Temp Pulse Resp B/P (MAP) Pulse Ox O2 Delivery O2 Flow Rate FiO2 03/23/18 21:57 107/78 03/23/18 20:24 61 107/78 03/23/18 20:23 61 107/78 03/23/18 20:00 97.9 61 19 107/78 100 Room Air 97.9 03/23/18 19:30 62 18 Room Air 21 03/23/18 16:20 98.2 55 20 148/71 98 Room Air 98.2 03/23/18 14:13 141/63 03/23/18 12:00 98.5 53 20 135/79 99 98.5 03/23/18 09:00 52 03/23/18 09:00 54 124/62 03/23/18 08:55 60 16 Room Air 21 03/23/18 08:00 98.6 54 18 124/62 100 Room Air 98.6 03/23/18 05:56 154/65 03/23/18 04:00 97.6 52 20 154/65 95 97.6 03/23/18 00:00 97.5 54 20 156/79 100 Room Air 97.5 Intake and Output 03/22/18 03/23/18 19:00 07:00 Intake Total 1200 ml 450 ml Output Total 1000 ml 450 ml Balance 200 ml 0 ml Intake Oral 1200 ml 450 ml Output Urine Total 1000 ml 450 ml # Bowel Movements 2 2 Height (Feet): 5 Height (Inches): 4.00 Weight (Pounds): 164 Kathi Villarreal M.D. Mar 23, 2018 22:14
[2018-03-24] VITALS (7 sets, daily range): BP systolic 152–183; BP diastolic 65–77
[2018-03-24] MEDS: HydrALAZINE 25mg tab ORAL SCH ×3 (00:59→13:24)
[2018-03-24] MEDS: NovoLOG Insulin Flexpen SUBQ SCH ×4 (06:24→21:15)
[2018-03-24 07:11] LABS: ANION GAP 10 mmol/L (5-15); BLOOD UREA NITROGEN 85 mg/dL (7-18); CALCIUM 8.9 MG/DL (8.5-10.1); CARBON DIOXIDE 22 MMOL/L (21-32); CHLORIDE 113 MMOL/L (98-107); CREATININE 5.7 MG/DL (0.55-1.30); POTASSIUM 4.2 MMOL/L (3.5-5.1); SODIUM 145 MMOL/L (136-145)
--- NOTE | 2018-03-24 07:47 | General Progress Note ---
Assessment/Plan Assessment/Plan S: I am ok O: appears comfortable, denies any pain or shortness of breath. PHYSICAL EXAMINATION: VITAL SIGNS: HEAD AND NECK: Atraumatic and normocephalic. Positive for the right-sided hemiparesis. CHEST: Clear to auscultation. No wheezing. No crackles. HEART: S1 and S2. Regular rate and rhythm. Negative for S3. Positive for questionable cardiac murmurs. ABDOMEN: Obese and soft. Bowel sounds normal. No gross organomegaly. NEUROLOGIC: The patient is awake, alert and oriented x3. Positive for slurred speech. MUSCULOSKELETAL: Positive for the left-sided hemiparesis, more prominent in the left upper extremity. Meds: reviewed and reconciled in chart , including but not limited to Procardia 30 mg bid ASSESSMENT: 1. Acute on chronic anemia. 2. Diabetes type 2. 3. Hypertension, uncontrolled. 4. Chronic renal failure. 5. Cerebrovascular accident with left-sided hemiparesis. 6. Gastrointestinal and deep vein thrombosis prophylaxis. 7. Iron-deficiency anemia. 8. On anticoagulation. 9. UTI Plan: Nephrology Cardiology Psych notes reviewed start Ceftriaxon No additional ATC will monitor Hgb. continue ASA. Will monitor [place], and BP Pending CBC Subjective Allergies: Coded Allergies: PENICILLINS (Verified Allergy, Unknown, 11/10/09) Objective Last 24 Hour Vital Signs Date Time Temp Pulse Resp B/P (MAP) Pulse Ox O2 Delivery O2 Flow Rate FiO2 03/24/18 05:03 152/73 03/24/18 04:30 98.1 57 19 152/73 98 Room Air 98.1 03/24/18 00:59 173/73 03/24/18 00:00 97.6 60 19 173/73 96 Room Air 97.6 03/23/18 20:24 61 107/78 03/23/18 20:23 61 107/78 03/23/18 20:00 97.9 61 19 107/78 100 Room Air 97.9 03/23/18 19:30 62 18 Room Air 21 03/23/18 16:20 98.2 55 20 148/71 98 Room Air 98.2 03/23/18 14:13 141/63 03/23/18 12:00 98.5 53 20 135/79 99 98.5 03/23/18 09:00 52 6/16/18 09:00 54 124/62 03/23/18 08:55 60 16 Room Air 21 03/23/18 08:00 98.6 54 18 124/62 100 Room Air 98.6 Intake and Output 03/23/18 03/24/18 19:00 07:00 Intake Total 420 ml Output Total 600 ml 700 ml Balance -180 ml -700 ml Intake Oral 420 ml Output Urine Total 600 ml 700 ml # Bowel Movements 1 Laboratory Tests 03/24/18 06:25: White Blood Count [Pending], Red Blood Count [Pending], Hemoglobin [Pending], Hematocrit [Pending], Mean Corpuscular Volume [Pending], Mean Corpuscular Hemoglobin [Pending], Mean Corpuscular Hemoglobin Concent [Pending], Red Cell Distribution Width [Pending], Platelet Count [Pending], Mean Platelet Volume [ Pending], Neutrophils (%) (Auto) [Pending], Lymphocytes (%) (Auto) [Pending], Monocytes (%) (Auto) [Pending], Eosinophils (%) (Auto) [Pending], Basophils (%) (Auto) [Pending], Sodium Level 145, Potassium Level 4.2, Chloride Level 113H, Carbon Dioxide Level 22, Anion Gap 10, Blood Urea Nitrogen 85H, Creatinine 5.7H , Estimat Glomerular Filtration Rate 8.8, Glucose Level 112H, Calcium Level 8.9 Height (Feet): 5 Height (Inches): 4.00 Weight (Pounds): 164 Danie Banegas MD Mar 24, 2018 07:47
[2018-03-24 07:51] LABS: HEMOGLOBIN 7.8 G/DL (12.0-16.0); MEAN CORPUSCULAR VOLUME 91 FL (80-99); PLATELET COUNT 182 K/UL (150-450); RED BLOOD COUNT 2.63 M/UL (4.20-5.40); RED CELL DISTRIBUTION WIDTH 13.3 % (11.6-14.8); WHITE BLOOD COUNT 6.7 K/UL (4.8-10.8)
[2018-03-24] MEDS: Aspirin Baby 81mg ORAL SCH (08:32)
[2018-03-24] MEDS: Calcium Acetate 667mg Tab ORAL SCH ×3 (08:33→18:28)
[2018-03-24] MEDS: Docusate 100mg cap ORAL SCH ×3 (08:33→18:28)
[2018-03-24] MEDS: Nephrovite tab (Rena-Vite) ORAL SCH (08:33)
[2018-03-24] MEDS: Lactobacillus-GG tablet ORAL SCH (08:34)
[2018-03-24] MEDS: Vitamin D 400 INTLU TAB ORAL SCH (08:34)
[2018-03-24] MEDS: Ciprofloxacin 500mg tab ORAL SCH (18:28)
--- NOTE | 2018-03-24 18:59 | Nephrology Progress Note ---
Assessment/Plan Problem List: (1) Anemia (2) Acute on chronic renal failure (3) HTN (hypertension) Plan Discussed with Dr Banegas and RD possible HD follow labs Subjective Subjective feels ok Objective Objective Last 24 Hour Vital Signs Date Time Temp Pulse Resp B/P (MAP) Pulse Ox O2 Delivery O2 Flow Rate FiO2 03/24/18 18:28 181/69 03/24/18 16:00 97.7 57 20 154/68 98 Room Air 97.7 03/24/18 13:24 162/75 03/24/18 12:00 97.3 57 20 162/75 98 Room Air 97.3 03/24/18 10:30 57 153/65 03/24/18 08:34 54 183/69 03/24/18 08:33 54 183/69 03/24/18 08:00 97.3 54 20 183/69 97 Room Air 97.3 03/24/18 07:52 56 18 Room Air 21 03/24/18 05:03 152/73 03/24/18 04:30 98.1 57 19 152/73 98 Room Air 98.1 03/24/18 00:59 173/73 03/24/18 00:00 97.6 60 19 173/73 96 Room Air 97.6 03/23/18 20:24 61 107/78 03/23/18 20:23 61 107/78 03/23/18 20:00 97.9 61 19 107/78 100 Room Air 97.9 03/23/18 19:30 62 18 Room Air 21 Intake and Output 03/23/18 03/24/18 19:00 07:00 Intake Total 420 ml Output Total 600 ml 700 ml Balance -180 ml -700 ml Intake Oral 420 ml Output Urine Total 600 ml 700 ml # Bowel Movements 1 Laboratory Tests 03/24/18 06:25: White Blood Count 6.7, Red Blood Count 2.63L, Hemoglobin 7.8L, Hematocrit 24.0L , Mean Corpuscular Volume 91, Mean Corpuscular Hemoglobin 29.7, Mean Corpuscular Hemoglobin Concent 32.5, Red Cell Distribution Width 13.3, Platelet Count 182, Mean Platelet Volume 5.8L, Neutrophils (%) (Auto) , Lymphocytes (%) ( Auto) , Monocytes (%) (Auto) , Eosinophils (%) (Auto) , Basophils (%) (Auto) , Differential Total Cells Counted 100, Neutrophils % (Manual) 74, Lymphocytes % ( Manual) 20, Monocytes % (Manual) 3, Eosinophils % (Manual) 3, Basophils % ( Manual) 0, Band Neutrophils 0, Platelet Estimate Adequate, Platelet Morphology Normal, Sodium Level 145, Potassium Level 4.2, Chloride Level 113H, Carbon Dioxide Level 22, Anion Gap 10, Blood Urea Nitrogen 85H, Creatinine 5.7H, Estimat Glomerular Filtration Rate 8.8, Glucose Level 112H, Calcium Level 8.9 Height (Feet): 5 Height (Inches): 4.00 Weight (Pounds): 164 Cardiovascular: normal rate Respiratory/Chest: lungs clear Liu Ayala MD Mar 24, 2018 18:59
--- NOTE | 2018-03-24 19:15 | Cardiology Progress Note ---
Assessment/Plan Assessment/Plan 1. Paroxysmal atrial tachycardia, stable, off Eliquis. 2. Accelerated hypertension, continue Nifedipine and metoprolol, increase hydralazine to 50mg po qid. 3. Normal LV systolic function with LVEF at 55%. Subjective Subjective No cardiac events reported. Denies chest pain or SOB. Objective Last 24 Hour Vital Signs Date Time Temp Pulse Resp B/P (MAP) Pulse Ox O2 Delivery O2 Flow Rate FiO2 03/24/18 18:28 181/69 03/24/18 16:00 97.7 57 20 154/68 98 Room Air 97.7 03/24/18 13:24 162/75 03/24/18 12:00 97.3 57 20 162/75 98 Room Air 97.3 03/24/18 10:30 57 153/65 03/24/18 08:34 54 183/69 03/24/18 08:33 54 183/69 03/24/18 08:00 97.3 54 20 183/69 97 Room Air 97.3 03/24/18 07:52 56 18 Room Air 21 03/24/18 05:03 152/73 03/24/18 04:30 98.1 57 19 152/73 98 Room Air 98.1 03/24/18 00:59 173/73 03/24/18 00:00 97.6 60 19 173/73 96 Room Air 97.6 03/23/18 20:24 61 107/78 03/23/18 20:23 61 107/78 03/23/18 20:00 97.9 61 19 107/78 100 Room Air 97.9 03/23/18 19:30 62 18 Room Air 21 Intake and Output 03/23/18 03/24/18 19:00 07:00 Intake Total 420 ml Output Total 600 ml 700 ml Balance -180 ml -700 ml Intake Oral 420 ml Output Urine Total 600 ml 700 ml # Bowel Movements 1 2D Echo: EF 55%, Grade I LVDD, RVSP 36 mmhg, Mild MR, High RA pressure Laboratory Tests Test 03/24/18 06:25 White Blood Count 6.7 K/UL (4.8-10.8) Red Blood Count 2.63 M/UL (4.20-5.40) L Hemoglobin 7.8 G/DL (12.0-16.0) L Hematocrit 24.0 % (37.0-47.0) L Mean Corpuscular Volume 91 FL (80-99) Mean Corpuscular Hemoglobin 29.7 PG (27.0-31.0) Mean Corpuscular Hemoglobin Concent 32.5 G/DL (32.0-36.0) Red Cell Distribution Width 13.3 % (11.6-14.8) Platelet Count 182 K/UL (150-450) Mean Platelet Volume 5.8 FL (6.5-10.1) L Neutrophils (%) (Auto) % (45.0-75.0) Lymphocytes (%) (Auto) % (20.0-45.0) Monocytes (%) (Auto) % (1.0-10.0) Eosinophils (%) (Auto) % (0.0-3.0) Basophils (%) (Auto) % (0.0-2.0) Differential Total Cells Counted 100 Neutrophils % (Manual) 74 % (45-75) Lymphocytes % (Manual) 20 % (20-45) Monocytes % (Manual) 3 % (1-10) Eosinophils % (Manual) 3 % (0-3) Basophils % (Manual) 0 % (0-2) Band Neutrophils 0 % (0-8) Platelet Estimate Adequate Platelet Morphology Normal Sodium Level 145 MMOL/L (136-145) Potassium Level 4.2 MMOL/L (3.5-5.1) Chloride Level 113 MMOL/L (98-107) H Carbon Dioxide Level 22 MMOL/L (21-32) Anion Gap 10 mmol/L (5-15) Blood Urea Nitrogen 85 mg/dL (7-18) H Creatinine 5.7 MG/DL (0.55-1.30) H Estimat Glomerular Filtration Rate 8.8 mL/min (>60) Glucose Level 112 MG/DL (74-106) H Calcium Level 8.9 MG/DL (8.5-10.1) Objective HEENT: Atraumatic, normocephalic. ENT, pupils are equal, round, and reactive to light and accommodation. Conjunctival pallor is seen. NECK: JVP less than 5 cm. No carotid bruits. Carotid upstrokes 2+ bilaterally. CARDIOVASCULAR: Normal S1, S2. Regular rate and rhythm. No murmurs, gallops, or rubs. PMI is at fourth intercostal space in the midclavicular line. LUNGS: Bilateral rhonchi. ABDOMEN: Soft, nontender, and nondistended. No hepatosplenomegaly. Positive bowel sounds. EXTREMITIES: There is 1 to 2+ bilateral lower extremity edema. Triston Joy MD Mar 24, 2018 19:15
[2018-03-24] MEDS ORDERED: Dyna-Hex 2% Top Sol 2oz TOPIC SCH (20:00)
[2018-03-24] MEDS: HydrALAZINE 50mg tab ORAL SCH (21:10)
[2018-03-25] VITALS: BP 177/82
[2018-03-25 04:00] VITALS: BP 160/98
[2018-03-25] MEDS: NovoLOG Insulin Flexpen SUBQ SCH ×3 (06:01→17:13)
[2018-03-25 08:00] VITALS: BP 166/75
[2018-03-25] MEDS: Lactobacillus-GG tablet ORAL SCH (08:35)
[2018-03-25] MEDS: Aspirin Baby 81mg ORAL SCH (08:35)
[2018-03-25] MEDS: HydrALAZINE 50mg tab ORAL SCH ×3 (08:35→17:12)
[2018-03-25] MEDS: Docusate 100mg cap ORAL SCH ×3 (08:35→17:13)
[2018-03-25] MEDS: Calcium Acetate 667mg Tab ORAL SCH ×3 (08:36→17:11)
[2018-03-25] MEDS: Nephrovite tab (Rena-Vite) ORAL SCH (08:36)
[2018-03-25] MEDS: Vitamin D 400 INTLU TAB ORAL SCH (08:36)
--- NOTE | 2018-03-25 10:18 | Cardiology Progress Note ---
Assessment/Plan Assessment/Plan 1. Paroxysmal atrial tachycardia, stable, off Eliquis. 2. Accelerated hypertension, continue Nifedipine and metoprolol, increase hydralazine to 100mg po tid. 3. Normal LV systolic function with LVEF at 55%. Subjective Subjective No cardiac events reported. Clinically the same from the cardiac standpoint. Objective Last 24 Hour Vital Signs Date Time Temp Pulse Resp B/P (MAP) Pulse Ox O2 Delivery O2 Flow Rate FiO2 03/25/18 08:37 48 166/75 03/25/18 08:37 48 166/75 03/25/18 08:35 166/75 03/25/18 08:28 97 16 Room Air 21 03/25/18 04:00 98.1 48 18 160/98 99 Room Air 98.1 03/25/18 00:00 98.4 52 20 177/82 97 Room Air 98.4 03/24/18 21:11 52 173/77 03/24/18 21:10 173/77 03/24/18 21:10 52 173/77 03/24/18 20:00 98.9 52 18 173/77 97 Room Air 98.9 03/24/18 19:30 54 18 Room Air 21 03/24/18 18:28 181/69 03/24/18 16:00 97.7 57 20 154/68 98 Room Air 97.7 03/24/18 13:24 162/75 03/24/18 12:00 97.3 57 20 162/75 98 Room Air 97.3 03/24/18 10:30 57 153/65 Intake and Output 03/24/18 03/25/18 19:00 07:00 Intake Total 240 ml 240 ml Output Total 850 ml Balance -610 ml 240 ml Intake Oral 240 ml 240 ml Output Urine Total 850 ml # Bowel Movements 1 1 2D Echo: EF 55%, Grade I LVDD, RVSP 36 mmhg, Mild MR, High RA pressure Objective HEENT: Atraumatic, normocephalic. ENT, pupils are equal, round, and reactive to light and accommodation. Conjunctival pallor is seen. NECK: JVP less than 5 cm. No carotid bruits. Carotid upstrokes 2+ bilaterally. CARDIOVASCULAR: Normal S1, S2. Regular rate and rhythm. No murmurs, gallops, or rubs. PMI is at fourth intercostal space in the midclavicular line. LUNGS: Bilateral rhonchi. ABDOMEN: Soft, nontender, and nondistended. No hepatosplenomegaly. Positive bowel sounds. EXTREMITIES: There is 1 to 2+ bilateral lower extremity edema. Triston Joy MD Mar 25, 2018 10:18
--- NOTE | 2018-03-25 10:50 | Nephrology Progress Note ---
Assessment/Plan Problem List: (1) ESRD (end stage renal disease) (2) Diabetic nephropathy (3) Symptomatic anemia (4) HTN (hypertension) Assessment: Hypertensive kidney disease Assessment Renal failure, likely chronic, and ESRD need HD lasr Cr 5.7 Diabetic Nephropathy / Proteinuria UTI Sever Anemia / symptomatic HTN OOC CVA left weakness Plan CrCl 6 adjust BP meds Kidney ERICKA pending / reordered 2D echo EjFx 60 Anemia lamb EPO PATIENT DECLINES DIALYSIS TREATMENT Per orders Subjective ROS Limited/Unobtainable: No Constitutional: Reports: malaise Objective Objective Last 24 Hour Vital Signs Date Time Temp Pulse Resp B/P (MAP) Pulse Ox O2 Delivery O2 Flow Rate FiO2 03/25/18 08:37 48 166/75 03/25/18 08:37 48 166/75 03/25/18 08:35 166/75 03/25/18 08:28 97 16 Room Air 21 03/25/18 08:00 98.0 48 20 166/75 98 Room Air 98.0 03/25/18 04:00 98.1 48 18 160/98 99 Room Air 98.1 03/25/18 00:00 98.4 52 20 177/82 97 Room Air 98.4 03/24/18 21:11 52 173/77 03/24/18 21:10 173/77 03/24/18 21:10 52 173/77 03/24/18 20:00 98.9 52 18 173/77 97 Room Air 98.9 03/24/18 19:30 54 18 Room Air 21 03/24/18 18:28 181/69 03/24/18 16:00 97.7 57 20 154/68 98 Room Air 97.7 03/24/18 13:24 162/75 03/24/18 12:00 97.3 57 20 162/75 98 Room Air 97.3 Intake and Output 03/24/18 03/25/18 19:00 07:00 Intake Total 240 ml 240 ml Output Total 850 ml Balance -610 ml 240 ml Intake Oral 240 ml 240 ml Output Urine Total 850 ml # Bowel Movements 1 1 Height (Feet): 5 Height (Inches): 4.00 Weight (Pounds): 164 General Appearance: no apparent distress Cardiovascular: normal rate Respiratory/Chest: decreased breath sounds Objective no change GARIMA OLIVEROS Mar 25, 2018 10:50
[2018-03-25] MEDS ORDERED: Minoxidil 2.5mg tab ORAL PRN (11:00)
--- NOTE | 2018-03-25 11:59 | General Progress Note ---
Assessment/Plan Assessment/Plan S: I am ok O: appears comfortable, denies any pain or shortness of breath. PHYSICAL EXAMINATION: VITAL SIGNS: HEAD AND NECK: Atraumatic and normocephalic. Positive for the right-sided hemiparesis. CHEST: Clear to auscultation. No wheezing. No crackles. HEART: S1 and S2. Regular rate and rhythm. Negative for S3. Positive for questionable cardiac murmurs. ABDOMEN: Obese and soft. Bowel sounds normal. No gross organomegaly. NEUROLOGIC: The patient is awake, alert and oriented x3. Positive for slurred speech. MUSCULOSKELETAL: Positive for the left-sided hemiparesis, more prominent in the left upper extremity. Meds: reviewed and reconciled in chart , including but not limited to Procardia 30 mg bid ASSESSMENT: 1. Acute on chronic anemia. 2. Diabetes type 2. 3. Hypertension, uncontrolled. 4. Chronic renal failure. 5. Cerebrovascular accident with left-sided hemiparesis. 6. Gastrointestinal and deep vein thrombosis prophylaxis. 7. Iron-deficiency anemia. 8. On anticoagulation. 9. UTI Plan: Nephrology Cardiology Psych notes reviewed start Ceftriaxon No additional ATC will monitor Hgb. continue ASA. Will monitor TN, and BP Refusing HD at this time. Will DC to facility and will followup Subjective Allergies: Coded Allergies: PENICILLINS (Verified Allergy, Unknown, 11/10/09) Objective Last 24 Hour Vital Signs Date Time Temp Pulse Resp B/P (MAP) Pulse Ox O2 Delivery O2 Flow Rate FiO2 03/25/18 08:37 48 166/75 03/25/18 08:37 48 166/75 03/25/18 08:35 166/75 03/25/18 08:28 97 16 Room Air 21 03/25/18 08:00 98.0 48 20 166/75 98 Room Air 98.0 03/25/18 04:00 98.1 48 18 160/98 99 Room Air 98.1 03/25/18 00:00 98.4 52 20 177/82 97 Room Air 98.4 03/24/18 21:11 52 173/77 03/24/18 21:10 173/77 03/24/18 21:10 52 173/77 03/24/18 20:00 98.9 52 18 173/77 97 Room Air 98.9 03/24/18 19:30 54 18 Room Air 21 03/24/18 18:28 181/69 03/24/18 16:00 97.7 57 20 154/68 98 Room Air 97.7 03/24/18 13:24 162/75 03/24/18 12:00 97.3 57 20 162/75 98 Room Air 97.3 Intake and Output 03/24/18 03/25/18 19:00 07:00 Intake Total 240 ml 240 ml Output Total 850 ml Balance -610 ml 240 ml Intake Oral 240 ml 240 ml Output Urine Total 850 ml # Bowel Movements 1 1 Height (Feet): 5 Height (Inches): 4.00 Weight (Pounds): 164 Danie Banegas MD Mar 25, 2018 11:59
[2018-03-25 12:00] VITALS: BP 168/73
[2018-03-25] MEDS ORDERED: LONITEN2.5 MG ORAL (12:02)
[2018-03-25] MEDS ORDERED: PROCARDIA XL30 MG ORAL (12:02)
[2018-03-25 16:00] VITALS: BP 150/60
[2018-03-25] MEDS: Ciprofloxacin 500mg tab ORAL SCH (17:11)
[2018-03-25 17:12] VITALS: BP 150/60
[2018-03-25] MEDS ORDERED: Metoprolol 25mg tab ORAL SCH (21:00)
--- NOTE | 2018-03-25 22:08 | General Progress Note ---
Assessment/Plan Assessment/Plan Anxiety d/o insomnia -remeron prn -the pt lacks capacity the daughter should make decisions Subjective Date patient seen: Mar 25, 2018 Neurologic/Psychiatric: Reports: anxiety, depressed, emotional problems Allergies: Coded Allergies: PENICILLINS (Verified Allergy, Unknown, 11/10/09) Subjective the pt is doing well the pt is illogical and thinks bc her nephew after dialysis the same happen to her. she stated that her daughter is the decision maker after spoking with daughter the pt s daughter stated that she agrees with her mother Objective Last 24 Hour Vital Signs Date Time Temp Pulse Resp B/P (MAP) Pulse Ox O2 Delivery O2 Flow Rate FiO2 03/25/18 17:12 150/60 03/25/18 16:00 97.3 53 20 150/60 97 Room Air 97.3 03/25/18 14:05 168/73 03/25/18 12:18 168/73 03/25/18 12:00 97.6 45 20 168/73 97 Room Air 97.6 03/25/18 08:37 48 166/75 03/25/18 08:37 48 166/75 03/25/18 08:35 166/75 03/25/18 08:28 97 16 Room Air 21 03/25/18 08:00 98.0 48 20 166/75 98 Room Air 98.0 03/25/18 04:00 98.1 48 18 160/98 99 Room Air 98.1 03/25/18 00:00 98.4 52 20 177/82 97 Room Air 98.4 Intake and Output 03/24/18 03/25/18 19:00 07:00 Intake Total 240 ml 240 ml Output Total 850 ml Balance -610 ml 240 ml Intake Oral 240 ml 240 ml Output Urine Total 850 ml # Bowel Movements 1 1 Laboratory Tests 03/25/18 11:40: C-Reactive Protein, Quantitative 0.7 Height (Feet): 5 Height (Inches): 4.00 Weight (Pounds): 164 General Appearance: no apparent distress, alert Neurologic: oriented x 3, responsive, depressed affect Kathi Villarreal M.D. Mar 25, 2018 22:08
--- NOTE | 2018-03-26 10:56 | Discharge Summary ---
Discharge Summary Discharge Summary _ DATE OF ADMISSION: 03/19/2018 DATE OF DISCHARGE: 03/25/2018 REASON FOR ADMISSION: 67 years old female with past medical history significant for diabetes , hypertension, asthma, anemia ,renal insufficiency,history of CVA with left sided hemiparesis, was sent from the [facility] for evaluation for anemia. Apparently in the facility, hemoglobin was 6.5. Patient was on a/coagulation with Eliquis at the facility Upon evaluation in ED, patient was placed on the supplemental oxygen to keep pulse oximetry above 92%. Blood pressure was severely elevated - 200/82. No fevers Laboratory workup revealed no leukocytosis BUN 81 ,creatinine 5.0 troponin negative EKG revealed normal sinus rhythm, no acute ischemic changes hemoglobin 7.8 hematocrit 22.1 patient admitted with diagnosis acute on chronic anemia , uncontrolled hypertension, acute on chronic renal failure ,history of CVA with left-sided hemiparesis, diabetes mellitus type 2. CONSULTANTS: offset printing pressmen Dr. Franco fiction and nonfiction prose writer Dr. Stephenson psychiatrist [facility] COURSE: Patient admitted. Patient started on IV hydration. Anticoagulation with Eliquis stopped, Cardiology and nephrology consults were requested. Patient was transfused with 2 units of packed red blood cells. Stool for occult blood 3 were negative. Anemia workup was consistent with anemia of chronic disease. Patient started on Epogen. Antiplatelet therapy with low dose of aspirin was continued GI prophylaxis provided Hemoglobin and hematocrit stayed at the baseline. Mercantile Reporter closely followed. Patient had end-stage renal disease requiring hemodialysis , however patient declined hemodialysis renal ultrasound ordered, declined by patient/family. 24 hr urine collection urine revealed 212 gm of protein for 24 hours. End-stage renal disease likely due to diabetic nephropathy/ proteinuria, however patient declined hemodialysis. Renal parameters and electrolytes were closely monitored,. electrolytes were corrected as needed. Nephrotoxins were avoided. However, creatinine up to 5.7. Psychiatrist seen and evaluated patient, diagnosed patient with anxiety disorder and insomnia,and stated that the patient lacks capacity to make an informed decision Daughter was a decision-maker Daughter declined dialysis at this time. Per psychiatrist patient started on Remeron on as needed basis. Drying Machine Operator closely followed. Echocardiogram revealed preserved ejection fraction of 60% and moderate mitral regurgitation Blood pressure medications were optimized as per offset printing pressmen Patient was on multiply regimen of antihypertensive medications, including calcium channel joe, beta joe and hydralazine. Dose of Hydralazine was uptitrated until blood pressure was controlled. Heart rate was stable. Urinalysis was positive for UTI , urine culture revealed Escherichia coli Patient was on antibiotic for UTI treatment. Supportive care provided Blood sugar was managed with sliding scale of insulin and remained stable. Hemoglobin A1c 4.8. Pain management was addressed Bowel regimen instituted Patient was stable for discharge back to [facility] facility FINAL DIAGNOSES: Acute on chronic anemia Accelerated hypertension due to hypertensive urgency Acute on chronic renal failure ( resulting in ESRD ) End-stage renal disease, requiring hemodialysis ( patient declined hemodialysis) Diabetic nephropathy UTI with Escherichia coli History of CVA with left-sided hemiparesis Diabetes mellitus type 2 Paroxysmal atrial tachycardia, stable Anxiety disorder Insomnia DISCHARGE MEDICATIONS: See Medication Reconciliation list. DISCHARGE INSTRUCTIONS: Patient was discharged to [facility] facility. Follow up with medical doctor at the facility. I have been assigned to dictate discharge summary for this account. I was not involved in the patient's management. Cary Jarvis NP Mar 26, 2018 10:56
--- NOTE | 2018-03-26 12:12 | Diagnostic Imaging Report ---
Indication: Acute renal failure Technique: Grayscale and duplex images of the kidneys, retroperitoneum, and bladder were obtained. Comparison: none Findings: Right kidney measures 9 cm in length. Left kidney measures 9.5 cm in length. Both kidneys demonstrate slightly increased echogenicity. No hydronephrosis. There are small cysts bilaterally. Normal inferior vena cava. Bladder is empty, contains a Cisneros catheter. Impression: Slightly increased renal echogenicity, could indicate medical renal disease Negative for hydronephrosis Incidental finding of bilateral small renal cysts Empty bladder with a Cisneros catheter.
== END 2018-03-25 18:54 | DRG 811 ==
LOC: EDBD 16:53 → EMR 18:03 → 2E 18:14 → EDBEDREQ 18:36 → 4E 03-21 23:39
PROC: 06HM33Z Insertion of Infusion Device into Right Femoral Vein, Percutaneous Approach (ICD-10-PCS; principal; 2018-03-19)
PROC: 30233N1 Transfusion of Nonautologous Red Blood Cells into Peripheral Vein, Percutaneous Approach (ICD-10-PCS; 2018-03-20)
DX: D50.9 Iron deficiency anemia, unspecified (principal); N18.6 End stage renal disease; N17.9 Acute kidney failure, unspecified; I69.354 Hemiplegia and hemiparesis following cerebral infarction affecting left non-dominant side; I47.1 Supraventricular tachycardia; Z88.0 Allergy status to penicillin; I13.10 Hypertensive heart and chronic kidney disease without heart failure, with stage 1 through stage 4 chronic kidney disease, or unspecified chronic kidney disease; N18.9 Chronic kidney disease, unspecified; E11.22 Type 2 diabetes mellitus with diabetic chronic kidney disease; Z79.01 Long term (current) use of anticoagulants; I16.0 Hypertensive urgency; B96.20 Unspecified Escherichia coli [E. coli] as the cause of diseases classified elsewhere; F41.9 Anxiety disorder, unspecified; G47.00 Insomnia, unspecified; I34.0 Nonrheumatic mitral (valve) insufficiency
CPT/HCPCS: 36415; 71045; 76770; 80048; 80053; 80061; 81001; 81050; 82270; 82550; 82553; 82575; 82607; 82728; 82746; 82962; 83036; 83540; 83550; 83735; 83880; 84100; 84156; 84300; 84443; 84484; 84550; 85007; 85025; 85610; 85730; 86140; 86706; 86707; 86803; 86850; 86900; 86901; 86920; 87081; 87086; 87181; 93005; 93306; 93930; 94640; 94664; 99285; J1815

== ENCOUNTER 2018-04-08 16:41 | Inpatient (IN) | payer MEDICARE, MEDICAID ==
[~2018-04-08] VITALS: Ht 157.5 cm; Wt 115.2 kg
[~2018-04-08 16:41] MED LIST: ACETAMINOPHEN325 M1 ORAL; ACIDOPHILUS LA1 EAC1 ORAL; ALBUTEROL2.5 MG/3 M INH; AMLODIPINE BESY10 MG ORAL; CALCIUM ACETAT667 M1 PO; CRANBERRY450 M4 PO; DOCUSATE SODIU100 MG ORAL; ELIQUIS2.5 MG PO; FERROUS SULFAT325 MG ORAL; FUROSEMIDE20 M1 ORAL; GABAPENTIN100 MG ORAL; HYDRALAZINE HCL50 MG ORAL; LIPITOR80 MG ORAL; LONITEN2.5 MG ORAL; MEGESTROL400 MG/11 PO; METOPROLOL TART25 MG ORAL; NEPHROVITE1 TAB ORAL; PROCARDIA XL30 MG ORAL; TUMS500 MG ORAL; VITAMIN D400 INTLU ORAL; ZANTAC150 MG ORAL
[2018-04-08 16:52] VITALS: BP 143/70
--- NOTE | 2018-04-08 16:55 | Emergency Room Report ---
History of Present Illness General Chief Complaint: Abnormal Labs Source: Patient, PMD Present Illness HPI 67yo F with ESRD, initially refused HD, but being sent for initiation of HD now by PMD Dr. Mann Banegas. patient has no complaints at all, denies any pain, shortness of breath, when asked was about her swelling she reports this is long-standing and is not bothering her. Patient finally agreed to get HD per my d/w Dr. Banegas, and he has already consulted nephrology and vascular surgery. Allergies: Coded Allergies: PENICILLINS (Verified Allergy, Unknown, 11/10/09) Patient History Past Medical History: see triage record Last Menstrual Period: n/a Reviewed Nursing Documentation: PMH: Agreed; PSxH: Agreed Nursing Documentation-PMH Hx Cardiac Problems: Yes - CHF, Anemia, CKD, HTN, Hyperlipedemia, HF, Afib Hx Hypertension: Yes Hx Diabetes: Yes Hx Cancer: Yes - Uterus Neoplasm Hx Gastrointestinal Problems: No Hx Neurological Problems: Yes - anxiety Hx Cerebrovascular Accident: Yes - Left Sided Weakness 10 years ago Review of Systems All Other Systems: negative except mentioned in HPI Physical Exam Vital Signs Date Time Temp Pulse Resp B/P (MAP) Pulse Ox O2 Delivery O2 Flow Rate FiO2 04/08/18 16:35 98.1 56 20 148/62 95 Room Air 98.1 Sp02 EP Interpretation: reviewed, normal General Appearance: no apparent distress, alert, non-toxic Head: normocephalic Eyes: bilateral eye normal inspection, bilateral eye PERRL, bilateral eye EOMI ENT: normal ENT inspection, hearing grossly normal, normal pharynx, no angioedema, normal voice, moist mucus membranes Neck: normal inspection, full range of motion, supple, supple/symm/no masses Respiratory: chest non-tender, lungs clear, decreased breath sounds - slightly diminished at bases bilaterally, chest symmetrical, palpation of chest normal Cardiovascular #1: normal peripheral pulses, regular rate, rhythm, edema - 2+ B /L LE Cardiovascular #2: 2+ radial (R), 2+ radial (L) Gastrointestinal: normal inspection, non tender, soft, no mass, no guarding, no rebound, distended Rectal: deferred Genitourinary: normal inspection, no CVA tenderness Musculoskeletal: back normal, gait/station normal, normal range of motion, non- tender, no calf tenderness Neurologic: alert, responsive, sensory intact, speech normal, motor weakness - L sided weakness Psychiatric: judgement/insight normal, memory normal, mood/affect normal, no suicidal/homicidal ideation Skin: normal color, no rash, warm/dry, normal turgor Lymphatic: no adenopathy Medical Decision Making Diagnostic Impression: Primary Impression: ESRD (end stage renal disease) ER Course Patient will be admitted by Dr. Banegas to initiate HD. EKG Diagnostic Results EKG Time: 16:57 EP Interpretation: no st-t changes, t-wave flattening in I and aVL Rate: normal Rhythm: NSR ST Segments: no acute changes ASA given to the pt in ED: No Rhythm Strip Diag. Results Rhythm Strip Time: 17:12 EP Interpretation: yes Rate: 51 Rhythm: NSR, no PVC's, no ectopy Chest X-Ray Diagnostic Results Chest X-Ray Diagnostic Results : Chest X-Ray Ordered: Yes # of Views/Limited/Complete: 1 View Indication: Other - esrd EP Interpretation: Yes Interpretation: no consolidation, no effusion, no pneumothorax, no acute cardiopulmonary disease Impression: No acute disease Electronically Signed by: Godwin Garcia MD Last Vital Signs Date Time Temp Pulse Resp B/P (MAP) Pulse Ox O2 Delivery O2 Flow Rate FiO2 04/08/18 16:35 98.1 56 20 148/62 95 Room Air 98.1 Disposition: ADMITTED INPATIENT Condition: Stable Signed Out To: GODWIN Mills M.D Apr 08, 2018 16:55
[2018-04-08] MEDS ORDERED: ACETAMINOPHEN325 M1 ORAL (18:01)
[2018-04-08 18:10] LABS: EOSINOPHILS % (AUTO) 6.1 % (0.0-3.0); HEMATOCRIT 27.4 % (37.0-47.0); HEMOGLOBIN 9.5 G/DL (12.0-16.0); LYMPHOCYTES % (AUTO) 21.2 % (20.0-45.0); MEAN CORPUSCULAR VOLUME 90 FL (80-99); MONOCYTES % (AUTO) 7.7 % (1.0-10.0); NEUTROPHILS % (AUTO) 62.9 % (45.0-75.0); PLATELET COUNT 206 K/UL (150-450); RED BLOOD COUNT 3.05 M/UL (4.20-5.40); RED CELL DISTRIBUTION WIDTH 13.7 % (11.6-14.8); WHITE BLOOD COUNT 5.6 K/UL (4.8-10.8)
[2018-04-08 18:16] LABS: ANION GAP 9 mmol/L (5-15); BLOOD UREA NITROGEN 92 mg/dL (7-18); CALCIUM 9.3 MG/DL (8.5-10.1); CARBON DIOXIDE 22 MMOL/L (21-32); CHLORIDE 110 MMOL/L (98-107); CREATININE 5.4 MG/DL (0.55-1.30); POTASSIUM 5.8 MMOL/L (3.5-5.1); SODIUM 141 MMOL/L (136-145)
[2018-04-08] MEDS ORDERED: NEPHROCAPS QT1 EACH PO (18:18)
[2018-04-08] MEDS ORDERED: MEGESTROL400 MG/11 PO (18:18)
[2018-04-08 18:20] LABS: ALANINE AMINOTRANSFERASE 22 U/L (12-78); ALBUMIN 3.4 G/DL (3.4-5.0); ALBUMIN/GLOBULIN RATIO 0.9 (1.0-2.7); ALKALINE PHOSPHATASE 47 U/L (46-116); ASPARTATE AMINO TRANSFERASE 20 U/L (15-37); BILIRUBIN,TOTAL 0.3 MG/DL (0.2-1.0)
[2018-04-08] MEDS ORDERED: NEPHROVITE1 TAB ORAL (18:20)
[2018-04-08] MEDS ORDERED: CALCIUM ACETAT667 M1 PO (18:22)
[2018-04-08] MEDS ORDERED: NOVOLOG100 UNIT/3 IM (18:24)
[2018-04-08 18:45] VITALS: BP 147/75
[2018-04-08] MEDS ORDERED: Sodium Polystyrene Sulfonate 15gm Powder ORAL ONE (18:45)
[2018-04-08] MEDS ORDERED: Albuterol ud Inhalation HHN PRN (21:45)
--- NOTE | 2018-04-08 23:03 | Consultation ---
Consult Note Consult Note admitted for initiation of dialysis Assessment/Plan Renal failure, likely chronic, and ESRD need HD last Cr 5.4 K 5.8 CrCl 6 Diabetic Nephropathy / Proteinuria UTI Sever Anemia / symptomatic HTN OOC CVA left weakness Plan: Proceed with access GARIMA OLIVEROS Apr 08, 2018 23:03
[2018-04-09] VITALS (12 sets, daily range): BP systolic 119–178; BP diastolic 55–74
[2018-04-09 06:01] LABS: BASOPHILS % (AUTO) 1.5 % (0.0-2.0); EOSINOPHILS % (AUTO) 6.1 % (0.0-3.0); HEMATOCRIT 26.4 % (37.0-47.0); MEAN CORPUSCULAR VOLUME 91 FL (80-99); MONOCYTES % (AUTO) 8.6 % (1.0-10.0); NEUTROPHILS % (AUTO) 60.8 % (45.0-75.0); PLATELET COUNT 190 K/UL (150-450); RED BLOOD COUNT 2.89 M/UL (4.20-5.40); RED CELL DISTRIBUTION WIDTH 13.6 % (11.6-14.8); WHITE BLOOD COUNT 5.7 K/UL (4.8-10.8)
[2018-04-09] MEDS: NovoLOG Insulin Flexpen SUBQ SCH ×4 (06:11→20:34)
[2018-04-09 06:35] LABS: APPEARANCE,URINE CLEAR; BILIRUBIN, URINE NEGATIVE (NEGATIVE); COLOR,URINE PALE YELLOW; GLUCOSE, URINE (UA) 1+ (NEGATIVE); KETONES,URINE NEGATIVE (NEGATIVE); LEUKOCYTE ESTERASE ,URINE 3+ (NEGATIVE); NITRITE,URINE NEGATIVE (NEGATIVE); PH,URINE 5 (4.5-8.0); PROTEIN,URINE 3+ (NEGATIVE); UROBILINOGEN,URINE NORMAL MG/DL (0.0-1.0)
[2018-04-09 06:37] LABS: ALANINE AMINOTRANSFERASE 22 U/L (12-78); ALBUMIN 3.3 G/DL (3.4-5.0); ALBUMIN/GLOBULIN RATIO 0.9 (1.0-2.7); ALKALINE PHOSPHATASE 44 U/L (46-116); ANION GAP 10 mmol/L (5-15); ASPARTATE AMINO TRANSFERASE 16 U/L (15-37); BILIRUBIN,TOTAL 0.3 MG/DL (0.2-1.0); BLOOD UREA NITROGEN 87 mg/dL (7-18); CARBON DIOXIDE 21 MMOL/L (21-32); CHLORIDE 111 MMOL/L (98-107); CHOLESTEROL 133 MG/DL (< 200); CREATININE 5.4 MG/DL (0.55-1.30); FERRITIN 366 NG/ML (8-388); HDL CHOLESTEROL 55 MG/DL (40-60); SODIUM 142 MMOL/L (136-145); TRIGLYCERIDES 56 MG/DL (30-150)
[2018-04-09 06:54] LABS: % IRON SATURATION 25 % (15-50); IRON 49 ug/dL (50-175); TOTAL IRON BINDING CAPACITY 194 ug/dL (250-450)
[2018-04-09 07:13] LABS: PHOSPHORUS 4.9 MG/DL (2.5-4.9)
[2018-04-09] MEDS ORDERED: Metoprolol 25mg tab ORAL SCH (09:00)
[2018-04-09] MEDS ORDERED: Vitamin D 400 INTLU TAB ORAL SCH (09:00)
[2018-04-09] MEDS: Enoxaparin 40mg Inj SUBQ SCH (09:00)
[2018-04-09] MEDS: Nephrovite tab (Rena-Vite) ORAL SCH (09:00)
[2018-04-09] MEDS ORDERED: Docusate 100mg cap ORAL SCH (09:00)
[2018-04-09] MEDS: Lactobacillus-GG tablet ORAL SCH (09:01)
[2018-04-09] MEDS: Docusate 100mg cap ORAL SCH ×3 (09:01→17:08)
[2018-04-09] MEDS: Metoprolol 25mg tab ORAL SCH ×2 (09:01→20:33)
[2018-04-09] MEDS: Calcium Acetate 667mg Tab ORAL SCH ×3 (09:02→17:08)
[2018-04-09] MEDS: Vitamin D 1000 IU Tab ORAL SCH (09:02)
[2018-04-09] MEDS ORDERED: Bacitracin 50000 Units Vial ONE (10:18)
[2018-04-09] MEDS ORDERED: Bupivacaine 0.5% Inj 30 ml vial INJ ONE (10:18)
[2018-04-09] MEDS ORDERED: Lidocaine 1% Plain 30 ml INJ ONE (10:18)
[2018-04-09] MEDS ORDERED: Bacitracin Oint 15gm Tube TOPIC ONE (10:18)
[2018-04-09] MEDS ORDERED: Midazolam 2mg/2ml Inj ONE (10:26)
[2018-04-09] MEDS ORDERED: fentaNYL 100 mcg/2 mL IV ONE (10:26)
[2018-04-09] MEDS ORDERED: Propofol 200mg/20ml IV ONE (10:26)
[2018-04-09] MEDS ORDERED: Lidocaine 1% MPF 10mg/ml 5ml ONE (10:26)
--- NOTE | 2018-04-09 10:50 | Anethesia Preoperative Eval ---
Anesthesia Pre-op PMH/ROS General Date of Evaluation: Apr 09, 2018 Time of Evaluation: 10:45 Anesthesiologist: Kate ASA Score: ASA 3 Mallampati Score Class I : Soft palate, uvula, fauces, pillars visible Class II: Soft palate, uvula, fauces visible Class III: Soft palate, base of uvula visible Class IV: Only hard plate visible Mallampati Classification: Class III Surgeon: Cristel Diagnosis: ESRD dialysis access Surgical Procedure: Permacath placement Anesthesia History: none Family History: no anesthesia problems Allergies: Coded Allergies: PENICILLINS (Verified Allergy, Unknown, 11/10/09) Medications: see eMAR Past Medical History Cardiovascular: Reports: HTN, arrhythmia - A fib., other - CHF Pulmonary HTN Pulmonary: Reports: HUBER; Denies: asthma, COPD, other Gastrointestinal/Genitourinary: Reports: GERD, ESRD; Denies: CRI, other Neurologic/Psychiatric: Reports: CVA, depression/anxiety; Denies: dementia, TIA, other Endocrine: Reports: DM - porrly conroled; Denies: hypothyroidism, steroids, other HEENT: Denies: cataract (L), cataract (R), glaucoma, [place] (L), [place] (R), other Hematology/Immune: Reports: anemia - of chronic d-s; Denies: DVT, bleeding disorder, other Musculoskeletal/Integumentary: Reports: DJD; Denies: OA, RA, DDD, edema, other Other: obesity PMH Narrative: as above PSxH Narrative: Hysterectomy Anesthesia Pre-op Phys. Exam Physician Exam Last Vital Signs Date Time Temp Pulse Resp B/P (MAP) Pulse Ox O2 Delivery O2 Flow Rate FiO2 04/09/18 09:02 66 130/68 04/09/18 08:37 15 Room Air 21 04/09/18 08:00 97.5 97 97.5 Constitutional: NAD Neurologic: other - L sided weakness Cardiovascular: RRR Respiratory: CTA Gastrointestinal: other - obesity Airway Exam Mallampati Score: Class III MO: limited Neck: short ROM: limited Teeth: missing Dentures: upper, lower Anesthesia Pre-op A/P Labs Hematology Test 04/08/18 17:45 04/09/18 05:25 White Blood Count 5.6 K/UL (4.8-10.8) 5.7 K/UL (4.8-10.8) Red Blood Count 3.05 M/UL (4.20-5.40) L 2.89 M/UL (4.20-5.40) L Hemoglobin 9.5 G/DL (12.0-16.0) L 9.0 G/DL (12.0-16.0) L Hematocrit 27.4 % (37.0-47.0) L 26.4 % (37.0-47.0) L Mean Corpuscular Volume 90 FL (80-99) 91 FL (80-99) Mean Corpuscular Hemoglobin 31.0 PG (27.0-31.0) 31.2 PG (27.0-31.0) H Mean Corpuscular Hemoglobin Concent 34.5 G/DL (32.0-36.0) 34.1 G/DL (32.0-36.0) Red Cell Distribution Width 13.7 % (11.6-14.8) 13.6 % (11.6-14.8) Platelet Count 206 K/UL (150-450) 190 K/UL (150-450) Mean Platelet Volume 6.1 FL (6.5-10.1) L 5.6 FL (6.5-10.1) L Neutrophils (%) (Auto) 62.9 % (45.0-75.0) 60.8 % (45.0-75.0) Lymphocytes (%) (Auto) 21.2 % (20.0-45.0) 23.0 % (20.0-45.0) Monocytes (%) (Auto) 7.7 % (1.0-10.0) 8.6 % (1.0-10.0) Eosinophils (%) (Auto) 6.1 % (0.0-3.0) H 6.1 % (0.0-3.0) H Basophils (%) (Auto) 2.0 % (0.0-2.0) 1.5 % (0.0-2.0) Coagulation Test 04/08/18 17:45 04/09/18 05:25 Prothrombin Time 10.4 SEC (9.30-11.50) Prothromb Time International Ratio 1.0 (0.9-1.1) Activated Partial Thromboplast Time 26 SEC (23-33) 25 SEC (23-33) Chemistry Test 04/08/18 17:45 04/09/18 05:25 04/09/18 06:00 Sodium Level 141 MMOL/L (136-145) 142 MMOL/L (136-145) Potassium Level 5.8 MMOL/L (3.5-5.1) H 5.0 MMOL/L (3.5-5.1) Chloride Level 110 MMOL/L (98-107) H 111 MMOL/L (98-107) H Carbon Dioxide Level 22 MMOL/L (21-32) 21 MMOL/L (21-32) Anion Gap 9 mmol/L (5-15) 10 mmol/L (5-15) Blood Urea Nitrogen 92 mg/dL (-18) H 87 mg/dL (7-18) H Creatinine 5.4 MG/DL (0.55-1.30) H 5.4 MG/DL (0.55-1.30) H Estimat Glomerular Filtration Rate 9.6 mL/min (>60) 9.6 mL/min (>60) Glucose Level 199 MG/DL (74-106) H 102 MG/DL (74-106) Calcium Level 9.3 MG/DL (8.5-10.1) 9.0 MG/DL (8.5-10.1) Total Bilirubin 0.3 MG/DL (0.2-1.0) 0.3 MG/DL (0.2-1.0) Aspartate Amino Transf (AST/SGOT) 20 U/L (15-37) 16 U/L (15-37) Alanine Aminotransferase (ALT/SGPT) 22 U/L (12-78) 22 U/L (12-78) Alkaline Phosphatase 47 U/L (46-116) 44 U/L (46-116) L Troponin I 0.000 ng/mL (0.000-0.056) 0.000 ng/mL (0.000-0.056) Total Protein 7.4 G/DL (6.4-8.2) 7.0 G/DL (6.4-8.2) Albumin 3.4 G/DL (3.4-5.0) 3.3 G/DL (3.4-5.0) L Globulin 4.0 g/dL 3.7 g/dL Albumin/Globulin Ratio 0.9 (1.0-2.7) L 0.9 (1.0-2.7) L Hemoglobin A1c 5.1 % (4.3-6.0) Uric Acid 6.4 MG/DL (2.6-7.2) Phosphorus Level 4.9 MG/DL (2.5-4.9) Magnesium Level 2.7 MG/DL (1.8-2.4) H Iron Level 49 ug/dL (50-175) L Total Iron Binding Capacity 194 ug/dL (250-450) L Percent Iron Saturation 25 % (15-50) Unsaturated Iron Binding 145 ug/dL (112-346) Ferritin 366 NG/ML (8-388) C-Reactive Protein, Quantitative < 0.4 mg/dL (0.00-0.90) Pro-B-Type Natriuretic Peptide Pending Triglycerides Level 56 MG/DL (30-150) Cholesterol Level 133 MG/DL (< 200) LDL Cholesterol 72 mg/dL (<100) HDL Cholesterol 55 MG/DL (40-60) Cholesterol/HDL Ratio 2.4 (3.3-4.4) L Vitamin B12 Level 776 PG/ML (193-986) Folate 18.6 NG/ML (8.6-58.9) Thyroid Stimulating Hormone (TSH) 2.640 uiU/mL (0.358-3.740) Studies Pre-op Studies: echo - EF 60% Risk Assessment & Plan Assessment: ASA 3 Plan: GA with LMA Status Change Before Surgery: No Pre-Antibiotics Drug: Ancef 1gr. Given Within 1 Hr of Incision: Yes Time Given: 10:55 Sang Love MD Apr 09, 2018 10:50
[2018-04-09] MEDS ORDERED: DiphenhydrAMINE 50mg/ml Inj IVP PRN (11:00)
[2018-04-09] MEDS ORDERED: fentaNYL 100 mcg/2 mL IV PRN (11:00)
[2018-04-09] MEDS ORDERED: D5NS 1000ml IV ONE (11:02)
--- NOTE | 2018-04-09 11:05 | Pre-Procedure Note/Attestation ---
Pre-Procedure Note/Attestation Complete Prior to Procedure Planned Procedure: not applicable Procedure Narrative: Permcath placement Indications for Procedure Pre-Operative Diagnosis: ESRD Attestation I attest that I discussed the nature of the procedure; its benefits; risks and complications; and alternatives (and the risks and benefits of such alternatives ), prior to the procedure, with the patient (or the patient's legal claim representative). I attest that, if there was a reasonable possibility of needing a blood transfusion, the patient (or the patient's legal claim representative) was given the [facility] standardized written summary, pursuant to the Alvaro Judit Blood Safety Act ([place] Health and Safety Code # 1645, as amended). I attest that I re-evaluated the patient just prior to the surgery and that there has been no change in the patient's H&P, except as documented below: RIVERA SALAZAR Apr 09, 2018 11:05
[2018-04-09] MEDS ORDERED: Heparin 1000 units/ml 1ml Vial ONE ×2 (11:19→11:39)
[2018-04-09] MEDS ORDERED: Iothalamate Meglumine 60% 30ML INJ ONE (11:20)
--- NOTE | 2018-04-09 11:40 | Diagnostic Imaging Report ---
Indication: Dyspnea Comparison: 03/20/2018 A single view chest radiograph was obtained. Findings: Cardiomediastinal appearance is within normal limits for age. Pulmonary vascularity is appropriate. The diaphragmatic contour is smooth and costophrenic angles are sharp. No pleural effusions are identified. The bones are unremarkable. Impression: No acute findings
--- NOTE | 2018-04-09 11:50 | History & Physical ---
History and Physical History & Physicial SOURCE OF INFORMATION: Patient and EMR. HISTORY OF PRESENT ILLNESS: The patient is a pleasant 67-year-old female. The patient has multiple medical problems. She is currently resident of a residential facility. I was notified about worsening renal function. Patient's DPOA ( Daughter) and patient had Refused initiation of HD untill now. I spoke with the daughter and she notified me about accepting to proceed with HD. At the time of evaluation, the patient denies any chest pain, nausea, vomitus, diarrhea, constipation, any abnormal bleeding. The patient is AO x3. FAMILY HISTORY: Reviewed. Noncontributory. PAST MEDICAL HISTORY: CVA with left-sided hemiparesis, hypertension, diabetes, COPD, iron-deficiency anemia, and chronic kidney disease. SNF MEDICATIONS: Including, but not limited to amlodipine, Eliquis, atorvastatin, ferrous sulfate, gabapentin, hydralazine, and metoprolol. ALLERGIES: Penicillin. PAST SURGICAL HISTORY: Denies. SOCIAL HISTORY: The patient is currently residing in a residential facility. Has 1 daughter. Denies history of illicit drug abuse, smoking, or alcohol abuse. PHYSICAL EXAMINATION: VITAL SIGNS: Blood pressure 160/80, temperature 98.1, pulse oximetry 98% on room air, and respiratory rate 18-20. HEAD AND NECK: Atraumatic and normocephalic. Positive for the right-sided hemiparesis. CHEST: Clear to auscultation. No wheezing. No crackles. HEART: S1 and S2. Regular rate and rhythm. Negative for S3. Positive for questionable cardiac murmurs. ABDOMEN: Obese and soft. Bowel sounds normal. No gross organomegaly. NEUROLOGIC: The patient is awake, alert and oriented x3. Positive for slurred speech. MUSCULOSKELETAL: Positive for the left-sided hemiparesis, more prominent in the left upper extremity. LABORATORY AND DIAGNOSTIC DATA: Labs dated 04/08/18 reviewed Medication : reviewed and reconciled ASSESSMENT: 1. ESRD ( accepting to proceed with HD) 2. Diabetes type 2. 3. Hypertension, uncontrolled. 5. Cerebrovascular accident with left-sided hemiparesis. 6. Gastrointestinal and deep vein thrombosis prophylaxis. 7. Iron-deficiency anemia. 8. GI DVT prophylaxia PLAN OF CARE: Will proceed with HD access placement to initiate HD Will monitor K serum level and provide medication as needed in the interim Danie Banegas MD Apr 09, 2018 11:50
--- NOTE | 2018-04-09 11:51 | General Progress Note ---
Assessment/Plan Assessment/Plan PHYSICAL EXAMINATION: HEAD AND NECK: Atraumatic and normocephalic. Positive for the right-sided hemiparesis. CHEST: Clear to auscultation. No wheezing. No crackles. HEART: S1 and S2. Regular rate and rhythm. Negative for S3. Positive for questionable cardiac murmurs. ABDOMEN: Obese and soft. Bowel sounds normal. No gross organomegaly. NEUROLOGIC: The patient is awake, alert and oriented x3. Positive for slurred speech. MUSCULOSKELETAL: Positive for the left-sided hemiparesis, more prominent in the left upper extremity. Medication : reviewed and reconciled ASSESSMENT: 1. ESRD ( accepting to proceed with HD) 2. Diabetes type 2. 3. Hypertension, uncontrolled. 5. Cerebrovascular accident with left-sided hemiparesis. 6. Gastrointestinal and deep vein thrombosis prophylaxis. 7. Iron-deficiency anemia. 8. GI DVT prophylaxia PLAN OF CARE: Will proceed with HD access placement to initiate HD Will monitor K serum level and provide medication as needed in the interim Subjective Allergies: Coded Allergies: PENICILLINS (Verified Allergy, Unknown, 11/10/09) Objective Last 24 Hour Vital Signs Date Time Temp Pulse Resp B/P (MAP) Pulse Ox O2 Delivery O2 Flow Rate FiO2 04/09/18 09:02 66 130/68 04/09/18 09:01 66 130/68 04/09/18 08:37 61 15 Room Air 21 04/09/18 08:00 64 04/09/18 08:00 97.5 66 20 130/68 97 Room Air 97.5 04/09/18 04:00 58 04/09/18 04:00 98.1 63 20 129/58 98 Room Air 98.1 04/09/18 00:00 59 04/09/18 00:00 97.0 59 20 119/73 96 Room Air 97.0 04/08/18 20:42 98.6 87 17 147/75 98 Room Air 98.6 04/08/18 20:32 59 04/08/18 18:45 98.6 87 17 147/75 98 Room Air 98.6 04/08/18 16:52 98.4 78 18 143/70 96 Room Air 98.4 04/08/18 16:35 98.1 56 20 148/62 95 Room Air 98.1 Intake and Output 04/08/18 04/09/18 19:00 07:00 Intake Total 240 ml Output Total 600 ml Balance -360 ml Intake Oral 240 ml Output Urine Total 600 ml # Voids 2 # Bowel Movements 1 1 Laboratory Tests 04/08/18 17:45: White Blood Count 5.6, Red Blood Count 3.05L, Hemoglobin 9.5L, Hematocrit 27.4L , Mean Corpuscular Volume 90, Mean Corpuscular Hemoglobin 31.0, Mean Corpuscular Hemoglobin Concent 34.5, Red Cell Distribution Width 13.7, Platelet Count 206, Mean Platelet Volume 6.1L, Neutrophils (%) (Auto) 62.9, Lymphocytes ( %) (Auto) 21.2, Monocytes (%) (Auto) 7.7, Eosinophils (%) (Auto) 6.1H, Basophils (%) (Auto) 2.0, Prothrombin Time 10.4, Prothromb Time International Ratio 1.0, Activated Partial Thromboplast Time 26, Sodium Level 141, Potassium Level 5.8H, Chloride Level 110H, Carbon Dioxide Level 22, Anion Gap 9, Blood Urea Nitrogen 92H, Creatinine 5.4H, Estimat Glomerular Filtration Rate 9.6, Glucose Level 199H, Calcium Level 9.3, Total Bilirubin 0.3, Aspartate Amino Transf (AST/SGOT) 20, Alanine Aminotransferase (ALT/SGPT) 22, Alkaline Phosphatase 47, Troponin I 0.000, Total Protein 7.4, Albumin 3.4, Globulin 4.0, Albumin/Globulin Ratio 0.9L 04/09/18 05:15: Urine Color Pale yellow, Urine Appearance Clear, Urine pH 5, Urine Specific [place] 1.020, Urine Protein 3+H, Urine Glucose (UA) 1+H, Urine Ketones Negative , Urine Occult Blood 1+H, Urine Nitrite Negative, Urine Bilirubin Negative, Urine Urobilinogen Normal, Urine Leukocyte Esterase 3+H, Urine RBC 0-2, Urine WBC 20-30H, Urine Squamous Epithelial Cells Few, Urine Bacteria Few 04/09/18 05:25: White Blood Count 5.7, Red Blood Count 2.89L, Hemoglobin 9.0L, Hematocrit 26.4L , Mean Corpuscular Volume 91, Mean Corpuscular Hemoglobin 31.2H, Mean Corpuscular Hemoglobin Concent 34.1, Red Cell Distribution Width 13.6, Platelet Count 190, Mean Platelet Volume 5.6L, Neutrophils (%) (Auto) 60.8, Lymphocytes ( %) (Auto) 23.0, Monocytes (%) (Auto) 8.6, Eosinophils (%) (Auto) 6.1H, Basophils (%) (Auto) 1.5, Activated Partial Thromboplast Time 25, Sodium Level 142, Potassium Level 5.0, Chloride Level 111H, Carbon Dioxide Level 21, Anion Gap 10, Blood Urea Nitrogen 87H, Creatinine 5.4H, Estimat Glomerular Filtration Rate 9.6, Glucose Level 102, Calcium Level 9.0, Total Bilirubin 0.3, Aspartate Amino Transf (AST/SGOT) 16, Alanine Aminotransferase (ALT/SGPT) 22, Alkaline Phosphatase 44L, Total Protein 7.0, Albumin 3.3L, Globulin 3.7, Albumin/ Globulin Ratio 0.9L, Hemoglobin A1c 5.1, Uric Acid 6.4, Phosphorus Level 4.9, Magnesium Level 2.7H, Iron Level 49L, Total Iron Binding Capacity 194L, Percent Iron Saturation 25, Unsaturated Iron Binding 145, Ferritin 366, C-Reactive Protein, Quantitative < 0.4, Pro-B-Type Natriuretic Peptide 7409H, Triglycerides Level 56, Cholesterol Level 133, LDL Cholesterol 72, HDL Cholesterol 55, Cholesterol/HDL Ratio 2.4L, Vitamin B12 Level 776, Folate 18.6, Thyroid Stimulating Hormone (TSH) 2.640 04/09/18 06:00: Troponin I 0.000 04/09/18 08:50: Hepatitis B Surface Antigen [Pending], Hepatitis B Surface Antibody, Quant [ Pending], Hepatitis C Antibody [Pending] Height (Feet): 5 Height (Inches): 2.00 Weight (Pounds): 180 Danie Banegas MD Apr 09, 2018 11:51
--- NOTE | 2018-04-09 12:27 | Immediate Post-Op Evaluation ---
Immediate Post-Op Evalulation Immediate Post-Op Evalulation Procedure: Dialysis catheter placement Date of Evaluation: Apr 09, 2018 Time of Evaluation: 12:26 IV Fluids: 300 Blood Products: none Estimated Blood Loss: min Urinary Output: none Blood Pressure Systolic: 145 Blood Pressure Diastolic: 74 Pulse Rate: 62 Respiratory Rate: 20 O2 Sat by Pulse Oximetry: 98 Temperature (Fahrenheit): 97.6 Pain Score (1-10): 1 Nausea: No Vomiting: No Complications none Patient Status: reacts, patent, none Hydration Status: adequate Sang Love MD Apr 09, 2018 12:27
--- NOTE | 2018-04-09 14:02 | Brief Operative Note ---
Immediate Post Operative Note Operative Note Pre-op Diagnosis: ESRD Procedure: right IJ permcath placement Post-op Diagnosis: same as pre-op Findings: consistent w/pre-op dx studies Surgeon: Mann Fam Anesthesia: MAC Specimen: none Complications: none Condition: stable Fluids: see anesthesia record Estimated Blood Loss: minimal Drains: none Implant(s) used?: Yes - RIVERA Coleman Apr 09, 2018 14:02
[2018-04-09] MEDS ORDERED: PPD Tuberculin Skin Test 5TU IDERMAL ONE (15:00)
--- NOTE | 2018-04-09 15:22 | Diagnostic Imaging Report ---
Indication: Permacath placement. Fluoroscopic imaging Comparison: None A single view chest radiograph was obtained. Findings: Single coned-down view of the central part of the chest shows a right permacath. The tip is at the lower end of the right atrium. Total fluoroscopic time 33 seconds. IMPRESSION: Fluoroscopic imaging.
--- NOTE | 2018-04-09 15:23 | Diagnostic Imaging Report ---
Indication: Dyspnea Comparison: April 08, 2018 A single view chest radiograph was obtained. Findings: Right jugular permacath is present in good position. Lung volumes are low. No pneumothorax identified. Cardiomegaly noted. IMPRESSION: Permacath in good position.
[2018-04-09] MEDS: Dyna-Hex 2% Top Sol 2oz TOPIC SCH (20:32)
[2018-04-09] MEDS ORDERED: Atorvastatin 80mg tab ORAL SCH (21:00)
[2018-04-10] VITALS (9 sets, daily range): BP systolic 101–166; BP diastolic 56–95
--- NOTE | 2018-04-10 00:36 | Cardiology Report ---
APPROVED REPORT EKG Measurement Heart [id number] Sinus bradycardia Nonspecific T wave abnormality Abnormal ECG
[2018-04-10] MEDS: NovoLOG Insulin Flexpen SUBQ SCH ×4 (06:30→20:37)
--- NOTE | 2018-04-10 08:23 | General Progress Note ---
Assessment/Plan Assessment/Plan S: I am ok O: appears comfortable. Denies pain or sob PHYSICAL EXAMINATION: HEAD AND NECK: Atraumatic and normocephalic. Positive for the right-sided hemiparesis. CHEST: Clear to auscultation. No wheezing. No crackles. HEART: S1 and S2. Regular rate and rhythm. Negative for S3. Positive for questionable cardiac murmurs. ABDOMEN: Obese and soft. Bowel sounds normal. No gross organomegaly. NEUROLOGIC: The patient is awake, alert and oriented x3. Positive for slurred speech. MUSCULOSKELETAL: Positive for the left-sided hemiparesis, more prominent in the left upper extremity. Right Jugular Permcath in place Medication : reviewed and reconciled ASSESSMENT: 1. ESRD ( accepting to proceed with HD) 2. Diabetes type 2. 3. Hypertension, uncontrolled. 5. Cerebrovascular accident with left-sided hemiparesis. 6. Gastrointestinal and deep vein thrombosis prophylaxis. 7. Iron-deficiency anemia. 8. GI DVT prophylaxia PLAN OF CARE: Will proceed with HD Will monitor K serum level and electrolytes per Nephrology Rec. Subjective Allergies: Coded Allergies: PENICILLINS (Verified Allergy, Unknown, 11/10/09) Objective Last 24 Hour Vital Signs Date Time Temp Pulse Resp B/P (MAP) Pulse Ox O2 Delivery O2 Flow Rate FiO2 04/10/18 04:00 98.3 64 20 160/66 100 Room Air 98.3 04/10/18 04:00 60 04/10/18 00:00 98.4 59 20 157/71 96 Room Air 98.4 04/10/18 00:00 59 04/09/18 20:39 67 18 Room Air 21 04/09/18 20:33 62 146/72 04/09/18 20:00 97.7 62 20 146/72 99 Room Air 97.7 04/09/18 20:00 59 04/09/18 16:03 97.5 57 20 151/69 96 Room Air 97.5 04/09/18 16:00 58 04/09/18 13:30 97.6 57 20 144/65 97 Room Air 97.6 04/09/18 13:07 97.6 54 20 148/66 95 Room Air 97.6 04/09/18 12:50 53 20 178/66 95 Room Air 04/09/18 12:35 52 20 146/66 98 Simple Mask 5 04/09/18 12:27 207.7 62 20 98 04/09/18 12:26 54 20 145/74 98 Simple Mask 5 04/09/18 12:21 59 20 150/55 98 Simple Mask 5 04/09/18 12:16 97.8 62 20 145/74 98 Simple Mask 5 97.8 04/09/18 09:02 66 130/68 04/09/18 09:01 66 130/68 04/09/18 08:37 61 15 Room Air 21 Intake and Output 04/09/18 04/10/18 19:00 07:00 Intake Total 640 ml Output Total 450 ml 500 ml Balance 190 ml -500 ml Intake Oral 240 ml IV Total 400 ml Output Urine Total 450 ml 500 ml # Bowel Movements 1 Laboratory Tests 04/09/18 08:50: Hepatitis B Surface Antigen [Pending], Hepatitis B Surface Antibody, Quant [ Pending], Hepatitis C Antibody [Pending] Height (Feet): 5 Height (Inches): 2.00 Weight (Pounds): 254 Danie Banegas MD Apr 10, 2018 08:23
[2018-04-10] MEDS: Enoxaparin 40mg Inj SUBQ SCH (09:00)
[2018-04-10] MEDS: Metoprolol 25mg tab ORAL SCH (09:00)
[2018-04-10] MEDS: Lactobacillus-GG tablet ORAL SCH (09:05)
[2018-04-10] MEDS: Vitamin D 1000 IU Tab ORAL SCH (09:05)
[2018-04-10] MEDS: Nephrovite tab (Rena-Vite) ORAL SCH (09:05)
[2018-04-10] MEDS: Docusate 100mg cap ORAL SCH ×3 (09:05→17:20)
[2018-04-10] MEDS: Calcium Acetate 667mg Tab ORAL SCH ×3 (09:06→17:21)
[2018-04-10 11:41] LABS: BASOPHILS % (AUTO) 1.5 % (0.0-2.0); EOSINOPHILS % (AUTO) 5.3 % (0.0-3.0); HEMATOCRIT 25.8 % (37.0-47.0); HEMOGLOBIN 8.5 G/DL (12.0-16.0); LYMPHOCYTES % (AUTO) 25.3 % (20.0-45.0); MEAN CORPUSCULAR VOLUME 89 FL (80-99); MONOCYTES % (AUTO) 4.4 % (1.0-10.0); NEUTROPHILS % (AUTO) 63.5 % (45.0-75.0); PLATELET COUNT 167 K/UL (150-450); RED BLOOD COUNT 2.88 M/UL (4.20-5.40); RED CELL DISTRIBUTION WIDTH 13.2 % (11.6-14.8); WHITE BLOOD COUNT 4.8 K/UL (4.8-10.8)
--- NOTE | 2018-04-10 12:13 | Nephrology Progress Note ---
Assessment/Plan Problem List: (1) ESRD (end stage renal disease) (2) Diabetic nephropathy (3) Anemia (4) HTN (hypertension) Assessment Renal failure, likely chronic, and ESRD need HD last Cr 5.4 K 5.8 CrCl 6 Diabetic Nephropathy / Proteinuria UTI Sever Anemia / symptomatic HTN OOC CVA left weakness Plan Currently on HD Has access- dialysis in process- OP dialysis placement hep panel ordered a Hep panel from 03/21 in chart / EMR Subjective ROS Limited/Unobtainable: No Constitutional: Reports: malaise Objective Objective Last 24 Hour Vital Signs Date Time Temp Pulse Resp B/P (MAP) Pulse Ox O2 Delivery O2 Flow Rate FiO2 04/10/18 11:11 97.7 59 18 144/63 95 Room Air 5.0 21 97.7 04/10/18 09:45 Room Air 04/10/18 09:30 98.1 66 12 162/80 Room Air 98.1 04/10/18 09:30 98.1 66 12 166/80 Room Air 98.1 04/10/18 09:30 Room Air 5.0 21 04/10/18 08:29 62 18 Room Air 21 04/10/18 08:00 59 04/10/18 08:00 97.7 59 18 144/63 95 Room Air 97.7 04/10/18 04:00 98.3 64 20 160/66 100 Room Air 98.3 04/10/18 04:00 60 04/10/18 00:00 98.4 59 20 157/71 96 Room Air 98.4 04/10/18 00:00 59 04/09/18 20:39 67 18 Room Air 21 04/09/18 20:33 62 146/72 04/09/18 20:00 97.7 62 20 146/72 99 Room Air 97.7 04/09/18 20:00 59 04/09/18 16:03 97.5 57 20 151/69 96 Room Air 97.5 04/09/18 16:00 58 04/09/18 13:30 97.6 57 20 144/65 97 Room Air 97.6 04/09/18 13:07 97.6 54 20 148/66 95 Room Air 97.6 04/09/18 12:50 53 20 178/66 95 Room Air 04/09/18 12:35 52 20 146/66 98 Simple Mask 5 04/09/18 12:27 207.7 62 20 98 04/09/18 12:26 54 20 145/74 98 Simple Mask 5 04/09/18 12:21 59 20 150/55 98 Simple Mask 5 04/09/18 12:16 97.8 62 20 145/74 98 Simple Mask 5 97.8 Intake and Output 04/09/18 04/10/18 19:00 07:00 Intake Total 640 ml Output Total 450 ml 500 ml Balance 190 ml -500 ml Intake Oral 240 ml IV Total 400 ml Output Urine Total 450 ml 500 ml # Bowel Movements 1 Laboratory Tests 04/10/18 11:00: White Blood Count 4.8, Red Blood Count 2.88L, Hemoglobin 8.5L, Hematocrit 25.8L , Mean Corpuscular Volume 89, Mean Corpuscular Hemoglobin 29.4, Mean Corpuscular Hemoglobin Concent 33.0, Red Cell Distribution Width 13.2, Platelet Count 167, Mean Platelet Volume 7.0, Neutrophils (%) (Auto) 63.5, Lymphocytes (% ) (Auto) 25.3, Monocytes (%) (Auto) 4.4, Eosinophils (%) (Auto) 5.3H, Basophils (%) (Auto) 1.5, Sodium Level [Pending], Potassium Level [Pending], Chloride Level [Pending], Carbon Dioxide Level [Pending], Blood Urea Nitrogen [Pending], Creatinine [Pending], Estimat Glomerular Filtration Rate [Pending], Glucose Level [Pending], Calcium Level [Pending], Total Bilirubin [Pending], Aspartate Amino Transf (AST/SGOT) [Pending], Alanine Aminotransferase (ALT/SGPT) [Pending] , Alkaline Phosphatase [Pending], Total Protein [Pending], Albumin [Pending], Globulin [Pending] Height (Feet): 5 Height (Inches): 2.00 Weight (Pounds): 254 General Appearance: no apparent distress Objective no change GARIMA OLIVEROS Apr 10, 2018 12:13
--- NOTE | 2018-04-10 13:56 | 48 Hour Post Anesthesia Eval ---
Post Anesthesia Evaluation Procedure: Dialysis catheter placement Date of Evaluation: Apr 10, 2018 Time of Evaluation: 12:00 Blood Pressure Systolic: 114 0: 56 Pulse Rate: 124 Respiratory Rate: 16 Temperature (Fahrenheit): 98.2 O2 Sat by Pulse Oximetry: 95 Airway: patent Nausea: No Vomiting: No Pain Intensity: 0 Hydration Status: adequate Mental Status/LOC: patient returned to baseline Post-Anesthesia Complications: none Follow-up care needed: N/A Kaylynn Maria M.D. Apr 10, 2018 13:56
--- NOTE | 2018-04-10 14:14 | Cardiac Electrophysiology PN ---
Subjective Subjective [id number] Objective Last 24 Hour Vital Signs Date Time Temp Pulse Resp B/P (MAP) Pulse Ox O2 Delivery O2 Flow Rate FiO2 04/10/18 13:56 208.8 124 16 95 04/10/18 13:55 Room Air 5.0 21 04/10/18 12:40 Room Air 04/10/18 12:40 Room Air 5.0 21 04/10/18 12:40 98.2 124 12 114/56 Room Air 98.2 04/10/18 11:11 97.7 59 18 144/63 95 Room Air 5.0 21 97.7 04/10/18 09:45 Room Air 04/10/18 09:30 98.1 66 12 162/80 Room Air 98.1 04/10/18 09:30 98.1 66 12 166/80 Room Air 98.1 04/10/18 09:30 Room Air 5.0 21 04/10/18 08:29 62 18 Room Air 21 04/10/18 08:00 59 04/10/18 08:00 97.7 59 18 144/63 95 Room Air 97.7 04/10/18 04:00 98.3 64 20 160/66 100 Room Air 98.3 04/10/18 04:00 60 04/10/18 00:00 98.4 59 20 157/71 96 Room Air 98.4 04/10/18 00:00 59 04/09/18 20:39 67 18 Room Air 21 04/09/18 20:33 62 146/72 04/09/18 20:00 97.7 62 20 146/72 99 Room Air 97.7 04/09/18 20:00 59 04/09/18 16:03 97.5 57 20 151/69 96 Room Air 97.5 04/09/18 16:00 58 Intake and Output 04/09/18 04/10/18 19:00 07:00 Intake Total 640 ml Output Total 450 ml 500 ml Balance 190 ml -500 ml Intake Oral 240 ml IV Total 400 ml Output Urine Total 450 ml 500 ml # Bowel Movements 1 Laboratory Tests Test 04/10/18 11:00 White Blood Count 4.8 K/UL (4.8-10.8) Red Blood Count 2.88 M/UL (4.20-5.40) L Hemoglobin 8.5 G/DL (12.0-16.0) L Hematocrit 25.8 % (37.0-47.0) L Mean Corpuscular Volume 89 FL (80-99) Mean Corpuscular Hemoglobin 29.4 PG (27.0-31.0) Mean Corpuscular Hemoglobin Concent 33.0 G/DL (32.0-36.0) Red Cell Distribution Width 13.2 % (11.6-14.8) Platelet Count 167 K/UL (150-450) Mean Platelet Volume 7.0 FL (6.5-10.1) Neutrophils (%) (Auto) 63.5 % (45.0-75.0) Lymphocytes (%) (Auto) 25.3 % (20.0-45.0) Monocytes (%) (Auto) 4.4 % (1.0-10.0) Eosinophils (%) (Auto) 5.3 % (0.0-3.0) H Basophils (%) (Auto) 1.5 % (0.0-2.0) Microbiology Date/Time Source Procedure Growth Status 04/09/18 05:15 Urine,Clean Catch Urine Culture - Preliminary Gram Negative Bacillus 1 Resulted Triston Franco MD Apr 10, 2018 14:14
[2018-04-10 16:06] LABS: ALANINE AMINOTRANSFERASE 14 U/L (12-78); ALBUMIN/GLOBULIN RATIO 0.9 (1.0-2.7); ALKALINE PHOSPHATASE 45 U/L (46-116); ANION GAP 9 mmol/L (5-15); ASPARTATE AMINO TRANSFERASE 16 U/L (15-37); BILIRUBIN,TOTAL 0.5 MG/DL (0.2-1.0); BLOOD UREA NITROGEN 40 mg/dL (7-18); CARBON DIOXIDE 30 MMOL/L (21-32); CHLORIDE 99 MMOL/L (98-107); CREATININE 2.8 MG/DL (0.55-1.30); SODIUM 138 MMOL/L (136-145)
[2018-04-10 16:19] LABS: POTASSIUM 2.2 MMOL/L (3.5-5.1)
--- NOTE | 2018-04-10 18:00 | Consultation ---
DATE OF CONSULTATION: 04/09/2018 CARDIOLOGY CONSULTATION CONSULTING PHYSICIAN: Triston Franco M.D. REFERRING PHYSICIAN: Danie Banegas M.D. REASON FOR CONSULTATION: Atrial fibrillation with rapid ventricular response as well as marked disease or inferolateral ischemia. HISTORY OF PRESENT ILLNESS: The patient is a 67-year-old lady with the history of hypertension, diabetes and end-stage renal disease, who had refused hemodialysis in the past, left-sided CVA with left-sided hemiparesis, severe iron-deficiency anemia, who was transferred from jail. The patient's regular power of assistant attorney general is daughter and the patient had refused dialysis, but eventually they agreed. The patient underwent her first dialysis today, however, during 2 hours into dialysis, the patient developed atrial fibrillation with rapid ventricular response at 115 as well as the inferolateral ischemia. Cardiology consultation was requested for further evaluation and management. At the time of my evaluation, the patient denies any chest pain, palpitation, or shortness of breath. REVIEW OF SYSTEMS: Her review of systems was performed and was negative other than what was mentioned in the history of present illness. PAST MEDICAL HISTORY: As mentioned above. MEDICATIONS: Per reconciliation. ALLERGIES: She is allergic to penicillin. SOCIAL HISTORY: She lives in a long-term facility, has one daughter. She has no history of smoking, alcohol or illicit drug use. PHYSICAL EXAMINATION: VITAL SIGNS: Blood pressure of 114/56, pulse 124, respirations 18, and temperature 98.2 degrees. HEAD AND NECK: No JVD. LUNGS: Clear. CARDIOVASCULAR: Regular S1 and S2 with no gallop or murmur. The PermCath in the right chest. EXTREMITIES: No pitting edema. LABORATORY AND DIAGNOSTIC DATA: White count of 4.8, hemoglobin 8.5, hematocrit 25.8, and platelet count 167. Sodium 142, potassium 5.0, creatinine 5.4, and glucose of 102. Troponins are negative x2 on the second and third. ASSESSMENT AND PLAN: 1. Atrial fibrillation with rapid ventricular response. I will discontinue Procardia XL and start the patient on metoprolol 50 mg b.i.d. for rate control. The patient also on p.r.n. hydralazine. We will get an echocardiogram, 3 weeks ago showed normal left ventricular systolic function was on 03/20/2018, ejection fraction of 60%. We will put the patient also on aspirin and Lipitor. 2. Hypertension. Again, maximize beta-joe. 3. Diabetes, on insulin. 4. End-stage renal disease, now started on hemodialysis. 5. Inferolateral ischemia on the EKG, it could be due to atrial fibrillation. The patient does not have any chest pain. We will completely rule out OK protocol and repeat EKG. . Thank you very much for allowing me to participate in the care of this patient. Please do not hesitate to contact for any questions regarding my evaluation. Triston Franco M.D. DR: MARKO JOB#: [id number] CC:
[2018-04-10] MEDS: Dyna-Hex 2% Top Sol 2oz TOPIC SCH (20:31)
[2018-04-10] MEDS: Metoprolol Tartrate 50mg tab ORAL SCH (20:31)
[2018-04-10] MEDS ORDERED: Epogen (for non ESRD use) SUBQ SCH (21:00)
[2018-04-10 21:02] LABS: ANION GAP 6 mmol/L (5-15); BLOOD UREA NITROGEN 48 mg/dL (7-18); CARBON DIOXIDE 32 MMOL/L (21-32); CHLORIDE 99 MMOL/L (98-107); CREATININE 3.7 MG/DL (0.55-1.30); POTASSIUM 3.2 MMOL/L (3.5-5.1); SODIUM 137 MMOL/L (136-145)
[2018-04-11] VITALS: BP 143/69
[2018-04-11 03:09] LABS: BASOPHILS % (AUTO) 0.8 % (0.0-2.0); EOSINOPHILS % (AUTO) 3.4 % (0.0-3.0); HEMATOCRIT 22.6 % (37.0-47.0); LYMPHOCYTES % (AUTO) 14.9 % (20.0-45.0); MEAN CORPUSCULAR VOLUME 89 FL (80-99); MONOCYTES % (AUTO) 8.8 % (1.0-10.0); NEUTROPHILS % (AUTO) 72.1 % (45.0-75.0); PLATELET COUNT 143 K/UL (150-450); RED BLOOD COUNT 2.53 M/UL (4.20-5.40); RED CELL DISTRIBUTION WIDTH 13.2 % (11.6-14.8); WHITE BLOOD COUNT 6.6 K/UL (4.8-10.8)
[2018-04-11 03:37] LABS: ALANINE AMINOTRANSFERASE 14 U/L (12-78); ALBUMIN/GLOBULIN RATIO 0.9 (1.0-2.7); ALKALINE PHOSPHATASE 45 U/L (46-116); ANION GAP 5 mmol/L (5-15); ASPARTATE AMINO TRANSFERASE 17 U/L (15-37); BILIRUBIN,TOTAL 0.5 MG/DL (0.2-1.0); BLOOD UREA NITROGEN 50 mg/dL (7-18); CALCIUM 8.1 MG/DL (8.5-10.1); CARBON DIOXIDE 32 MMOL/L (21-32); CHLORIDE 100 MMOL/L (98-107); CREATININE 3.9 MG/DL (0.55-1.30); POTASSIUM 3.3 MMOL/L (3.5-5.1); SODIUM 137 MMOL/L (136-145)
[2018-04-11 04:00] VITALS: BP 145/58
[2018-04-11 04:05] LABS: CHOLESTEROL 123 MG/DL (< 200); HDL CHOLESTEROL 51 MG/DL (40-60); PHOSPHORUS 3.6 MG/DL (2.5-4.9); TRIGLYCERIDES 37 MG/DL (30-150)
[2018-04-11] MEDS: NovoLOG Insulin Flexpen SUBQ SCH ×4 (05:52→20:48)
[2018-04-11 08:00] VITALS: BP 127/59
--- NOTE | 2018-04-11 08:12 | Diagnostic Imaging Report ---
Indication: Altered mental status Technique: Continuous helical CT scanning of the head was performed utilizing automated exposure control without intravenous contrast material. Axial and coronal reconstructions were obtained. Comparison: 11/11/2009 CT dose: Total DLP 1499.24 mGycm; CTDI vol 70.38 mGy Findings: There is no acute intracranial hemorrhage, mass effect or midline shift. There are old infarcts involving the right parietal lobe and left frontoparietal lobe. Chronic appearing lacunar infarcts involving the bilateral basal ganglia. The ventricles, cisterns and sulci are prominent consistent with atrophy. Periventricular hypoattenuation is seen, a nonspecific finding most commonly related to sequela of chronic microvascular ischemia. There are atherosclerotic vascular calcifications. Visualized mastoid air cells and paranasal sinuses are unremarkable. No focal lesions of the bony calvarium or soft tissues of the scalp are seen. IMPRESSION: No evidence of acute intracranial hemorrhage, mass effect or shift. Chronic bilateral infarcts as above. Atrophy and nonspecific periventricular hypoattenuation suggestive of chronic ischemic microvascular changes. Possibility of acute on chronic ischemia not entirely excluded. Correlate clinically. MRI may be obtained for more sensitive evaluation as clinically indicated. This corresponds with the statrad preliminary report. The CT scanner at [facility] is accredited by the [employer] and the scans are performed using protocols designed to limit radiation exposure to as low as reasonably achievable to attain images of sufficient resolution adequate for diagnostic evaluation.
[2018-04-11] MEDS ORDERED: Aspirin EC 81mg tab ORAL SCH (09:00)
[2018-04-11] MEDS: Docusate 100mg cap ORAL SCH ×3 (09:28→16:55)
[2018-04-11] MEDS: Eliquis 2.5mg tablet ORAL SCH ×2 (09:28→16:55)
[2018-04-11] MEDS: Calcium Acetate 667mg Tab ORAL SCH ×3 (09:28→16:55)
[2018-04-11] MEDS: Lactobacillus-GG tablet ORAL SCH (09:28)
[2018-04-11] MEDS: Vitamin D 1000 IU Tab ORAL SCH (09:28)
[2018-04-11] MEDS: Nephrovite tab (Rena-Vite) ORAL SCH (09:28)
[2018-04-11] MEDS: Nitroglycerin Patch 0.4mg TDERMAL SCH (09:29)
[2018-04-11] MEDS: Metoprolol Tartrate 50mg tab ORAL SCH ×2 (09:29→21:00)
[2018-04-11] MEDS ORDERED: NS 275ml ONE (09:37)
[2018-04-11] MEDS ORDERED: Tubing IV Secondary IV ONE (09:37)
--- NOTE | 2018-04-11 10:29 | Cardiac Electrophysiology PN ---
Assessment/Plan Assessment/Plan 1. Atrial fibrillation with rapid ventricular response. On metoprolol 50 mg b.i.d. Echocardiogram, 3 weeks ago showed normal left ventricular systolic function was on 03/20/2018, ejection fraction of 60%. 2. Hypertension. Again, maximize beta-joe. 3. Inferolateral ischemia on the EKG, it could be due to atrial fibrillation. The patient does not have any chest pain. Troponin 0.33 and 0.46 likely due to renal failure 4. Diabetes, on insulin. 5. End-stage renal disease, now started on hemodialysis. Subjective Subjective Comfortable in NAD. Remained in SR. No CP or SOB. Objective Last 24 Hour Vital Signs Date Time Temp Pulse Resp B/P (MAP) Pulse Ox O2 Delivery O2 Flow Rate FiO2 04/11/18 09:29 145/58 04/11/18 09:29 69 145/58 04/11/18 07:14 69 18 Room Air 21 04/11/18 04:00 98.7 83 20 145/58 98 Room Air 98.7 04/11/18 04:00 67 04/11/18 00:00 99 04/11/18 00:00 98.0 89 20 143/69 98 Room Air 98.0 04/10/18 20:31 113 101/59 04/10/18 20:21 68 18 Room Air 21 04/10/18 20:00 98.4 113 20 101/59 99 Room Air 98.4 04/10/18 20:00 102 04/10/18 16:00 97.9 112 16 150/95 100 Room Air 97.9 04/10/18 16:00 116 04/10/18 13:56 208.8 124 16 95 04/10/18 13:55 Room Air 5.0 21 04/10/18 12:40 Room Air 04/10/18 12:40 Room Air 5.0 21 04/10/18 12:40 98.2 124 12 114/56 Room Air 98.2 04/10/18 12:00 106 04/10/18 12:00 98.1 106 16 137/56 96 Room Air 98.1 04/10/18 11:11 97.7 59 18 144/63 95 Room Air 5.0 21 97.7 Intake and Output 04/10/18 04/11/18 19:00 07:00 Intake Total 340 ml Output Total 1509 ml 350 ml Balance -1169 ml -350 ml Intake Oral 240 ml IV Total 100 ml Output Urine Total 650 ml 350 ml Hemodialysis UF 859 ml # Voids 2 Laboratory Tests Test 04/10/18 11:00 04/10/18 12:50 04/10/18 20:33 04/11/18 02:56 White Blood Count 4.8 K/UL (4.8-10.8) 6.6 K/UL (4.8-10.8) Red Blood Count 2.88 M/UL (4.20-5.40) L 2.53 M/UL (4.20-5.40) L Hemoglobin 8.5 G/DL (12.0-16.0) L 8.0 G/DL (12.0-16.0) L Hematocrit 25.8 % (37.0-47.0) L 22.6 % (37.0-47.0) L Mean Corpuscular Volume 89 FL (80-99) 89 FL (80-99) Mean Corpuscular Hemoglobin 29.4 PG (27.0-31.0) 31.7 PG (27.0-31.0) H Mean Corpuscular Hemoglobin Concent 33.0 G/DL (32.0-36.0) 35.6 G/DL (32.0-36.0) Red Cell Distribution Width 13.2 % (11.6-14.8) 13.2 % (11.6-14.8) Platelet Count 167 K/UL (150-450) 143 K/UL (150-450) L Mean Platelet Volume 7.0 FL (6.5-10.1) 6.3 FL (6.5-10.1) L Neutrophils (%) (Auto) 63.5 % (45.0-75.0) 72.1 % (45.0-75.0) Lymphocytes (%) (Auto) 25.3 % (20.0-45.0) 14.9 % (20.0-45.0) L Monocytes (%) (Auto) 4.4 % (1.0-10.0) 8.8 % (1.0-10.0) Eosinophils (%) (Auto) 5.3 % (0.0-3.0) H 3.4 % (0.0-3.0) H Basophils (%) (Auto) 1.5 % (0.0-2.0) 0.8 % (0.0-2.0) Sodium Level 138 MMOL/L (136-145) 137 MMOL/L (136-145) 137 MMOL/L (136-145) Potassium Level 2.2 MMOL/L (3.5-5.1) #*L 3.2 MMOL/L (3.5-5.1) L 3.3 MMOL/L (3.5-5.1) L Chloride Level 99 MMOL/L (98-107) 99 MMOL/L (98-107) 100 MMOL/L (98-107) Carbon Dioxide Level 30 MMOL/L (21-32) 32 MMOL/L (21-32) 32 MMOL/L (21-32) Anion Gap 9 mmol/L (5-15) 6 mmol/L (5-15) 5 mmol/L (5-15) Blood Urea Nitrogen 40 mg/dL (7-18) H 48 mg/dL (7-18) H 50 mg/dL (7-18) H Creatinine 2.8 MG/DL (0.55-1.30) H 3.7 MG/DL (0.55-1.30) H 3.9 MG/DL (0.55-1.30) H Estimat Glomerular Filtration Rate 20.4 mL/min (>60) 14.8 mL/min (>60) 13.8 mL/min (>60) Glucose Level 142 MG/DL (74-106) H 140 MG/DL (74-106) H 124 MG/DL (74-106) H Calcium Level 8.0 MG/DL (8.5-10.1) L 8.0 MG/DL (8.5-10.1) L 8.1 MG/DL (8.5-10.1) L Total Bilirubin 0.5 MG/DL (0.2-1.0) 0.5 MG/DL (0.2-1.0) Aspartate Amino Transf (AST/SGOT) 16 U/L (15-37) 17 U/L (15-37) Alanine Aminotransferase (ALT/SGPT) 14 U/L (12-78) 14 U/L (12-78) Alkaline Phosphatase 45 U/L (46-116) L 45 U/L (46-116) L Troponin I 0.073 ng/mL (0.000-0.056) 0.388 ng/mL (0.000-0.056) 0.463 ng/mL (0.000-0.056) C-Reactive Protein, Quantitative 1.4 mg/dL (0.00-0.90) H Total Protein 6.2 G/DL (6.4-8.2) L 6.5 G/DL (6.4-8.2) Albumin 3.0 G/DL (3.4-5.0) L 3.0 G/DL (3.4-5.0) L Globulin 3.2 g/dL 3.5 g/dL Albumin/Globulin Ratio 0.9 (1.0-2.7) L 0.9 (1.0-2.7) L Uric Acid 4.1 MG/DL (2.6-7.2) Phosphorus Level 3.6 MG/DL (2.5-4.9) Magnesium Level 1.9 MG/DL (1.8-2.4) Pro-B-Type Natriuretic Peptide 9471 pg/mL (0-125) H Triglycerides Level 37 MG/DL (30-150) Cholesterol Level 123 MG/DL (< 200) LDL Cholesterol 69 mg/dL (<100) HDL Cholesterol 51 MG/DL (40-60) Cholesterol/HDL Ratio 2.4 (3.3-4.4) L Microbiology Date/Time Source Procedure Growth Status 04/09/18 05:15 Urine,Clean Catch Urine Culture - Preliminary Gram Negative Bacillus 1 Resulted Objective HEAD AND NECK: No JVD. LUNGS: Clear. CARDIOVASCULAR: Regular S1 and S2 with no gallop or murmur. The PermCath in the right chest. EXTREMITIES: No pitting edema. Triston Franco MD Apr 11, 2018 10:29
--- NOTE | 2018-04-11 10:55 | General Progress Note ---
Assessment/Plan Assessment/Plan S: I am ok O: appears comfortable. Denies pain or sob PHYSICAL EXAMINATION: HEAD AND NECK: Atraumatic and normocephalic. Positive for the right-sided hemiparesis. CHEST: Clear to auscultation. No wheezing. No crackles. HEART: S1 and S2. Regular rate and rhythm. Negative for S3. Positive for questionable cardiac murmurs. ABDOMEN: Obese and soft. Bowel sounds normal. No gross organomegaly. NEUROLOGIC: The patient is awake, alert and oriented x3. Positive for slurred speech. MUSCULOSKELETAL: Positive for the left-sided hemiparesis, more prominent in the left upper extremity. Right Jugular Permcath in place Medication : reviewed and reconciled ASSESSMENT: 1. ESRD ( accepting to proceed with HD) 2. Diabetes type 2. 3. Hypertension, uncontrolled. 5. Cerebrovascular accident with left-sided hemiparesis. 6. Gastrointestinal and deep vein thrombosis prophylaxis. 7. Iron-deficiency anemia. 8. GI DVT prophylaxia 9. Abnormal Troponin 10 . PAfibrillation, not a candidate for halfway anticoagulation 11. Acute on chronic Anemia PLAN OF CARE: Will proceed with HD Will monitor K serum level and electrolytes per Nephrology Rec. 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 Subjective Allergies: Coded Allergies: PENICILLINS (Verified Allergy, Unknown, 11/10/09) Objective Last 24 Hour Vital Signs Date Time Temp Pulse Resp B/P (MAP) Pulse Ox O2 Delivery O2 Flow Rate FiO2 04/11/18 09:29 145/58 04/11/18 09:29 69 145/58 04/11/18 07:14 69 18 Room Air 21 04/11/18 04:00 98.7 83 20 145/58 98 Room Air 98.7 04/11/18 04:00 67 04/11/18 00:00 99 04/11/18 00:00 98.0 89 20 143/69 98 Room Air 98.0 04/10/18 20:31 113 101/59 04/10/18 20:21 68 18 Room Air 21 04/10/18 20:00 98.4 113 20 101/59 99 Room Air 98.4 04/10/18 20:00 102 04/10/18 16:00 97.9 112 16 150/95 100 Room Air 97.9 04/10/18 16:00 116 04/10/18 13:56 208.8 124 16 95 04/10/18 13:55 Room Air 5.0 21 04/10/18 12:40 Room Air 04/10/18 12:40 Room Air 5.0 21 04/10/18 12:40 98.2 124 12 114/56 Room Air 98.2 04/10/18 12:00 106 04/10/18 12:00 98.1 106 16 137/56 96 Room Air 98.1 04/10/18 11:11 97.7 59 18 144/63 95 Room Air 5.0 21 97.7 Intake and Output 04/10/18 04/11/18 19:00 07:00 Intake Total 340 ml Output Total 1509 ml 350 ml Balance -1169 ml -350 ml Intake Oral 240 ml IV Total 100 ml Output Urine Total 650 ml 350 ml Hemodialysis UF 859 ml # Voids 2 Laboratory Tests 04/10/18 11:00: White Blood Count 4.8, Red Blood Count 2.88L, Hemoglobin 8.5L, Hematocrit 25.8L , Mean Corpuscular Volume 89, Mean Corpuscular Hemoglobin 29.4, Mean Corpuscular Hemoglobin Concent 33.0, Red Cell Distribution Width 13.2, Platelet Count 167, Mean Platelet Volume 7.0, Neutrophils (%) (Auto) 63.5, Lymphocytes (% ) (Auto) 25.3, Monocytes (%) (Auto) 4.4, Eosinophils (%) (Auto) 5.3H, Basophils (%) (Auto) 1.5 04/10/18 12:50: Sodium Level 138, Potassium Level 2.2#*L, Chloride Level 99, Carbon Dioxide Level 30, Anion Gap 9, Blood Urea Nitrogen 40H, Creatinine 2.8H, Estimat Glomerular Filtration Rate 20.4, Glucose Level 142H, Calcium Level 8.0L, Total Bilirubin 0.5, Aspartate Amino Transf (AST/SGOT) 16, Alanine Aminotransferase ( ALT/SGPT) 14, Alkaline Phosphatase 45L, Troponin I 0.073H, C-Reactive Protein, Quantitative 1.4H, Total Protein 6.2L, Albumin 3.0L, Globulin 3.2, Albumin/ Globulin Ratio 0.9L 04/10/18 20:33: Sodium Level 137, Potassium Level 3.2L, Chloride Level 99, Carbon Dioxide Level 32, Anion Gap 6, Blood Urea Nitrogen 48H, Creatinine 3.7H, Estimat Glomerular Filtration Rate 14.8, Glucose Level 140H, Calcium Level 8.0L, Troponin I 0.388H 04/11/18 02:56: White Blood Count 6.6, Red Blood Count 2.53L, Hemoglobin 8.0L, Hematocrit 22.6L , Mean Corpuscular Volume 89, Mean Corpuscular Hemoglobin 31.7H, Mean Corpuscular Hemoglobin Concent 35.6, Red Cell Distribution Width 13.2, Platelet Count 143L, Mean Platelet Volume 6.3L, Neutrophils (%) (Auto) 72.1, Lymphocytes (%) (Auto) 14.9L, Monocytes (%) (Auto) 8.8, Eosinophils (%) (Auto) 3.4H, Basophils (%) (Auto) 0.8, Sodium Level 137, Potassium Level 3.3L, Chloride Level 100, Carbon Dioxide Level 32, Anion Gap 5, Blood Urea Nitrogen 50H, Creatinine 3.9H, Estimat Glomerular Filtration Rate 13.8, Glucose Level 124H, Calcium Level 8.1L, Total Bilirubin 0.5, Aspartate Amino Transf (AST/SGOT) 17, Alanine Aminotransferase (ALT/SGPT) 14, Alkaline Phosphatase 45L, Troponin I 0.463H, Total Protein 6.5, Albumin 3.0L, Globulin 3.5, Albumin/Globulin Ratio 0.9L, Uric Acid 4.1, Phosphorus Level 3.6, Magnesium Level 1.9, Pro-B-Type Natriuretic Peptide 9471H, Triglycerides Level 37, Cholesterol Level 123, LDL Cholesterol 69, HDL Cholesterol 51, Cholesterol/HDL Ratio 2.4L Height (Feet): 5 Height (Inches): 2.00 Weight (Pounds): 255 Danie Banegas MD Apr 11, 2018 10:55
--- NOTE | 2018-04-11 11:01 | Nephrology Progress Note ---
Assessment/Plan Problem List: (1) ESRD (end stage renal disease) (2) Diabetic nephropathy (3) Anemia (4) HTN (hypertension) Assessment patient dialysed yesterday- developed at fib Renal failure, likely chronic, and ESRD need HD last Cr 5.4 K 5.8 CrCl 6 Diabetic Nephropathy / Proteinuria UTI Sever Anemia / symptomatic HTN OOC CVA left weakness Plan PO K supplement Has access- dialysis next in am OP dialysis placement hep panel ordered a Hep panel from 03/21 in chart / EMR Subjective ROS Limited/Unobtainable: No Constitutional: Reports: malaise Objective Objective Last 24 Hour Vital Signs Date Time Temp Pulse Resp B/P (MAP) Pulse Ox O2 Delivery O2 Flow Rate FiO2 04/11/18 09:29 145/58 04/11/18 09:29 69 145/58 04/11/18 07:14 69 18 Room Air 21 04/11/18 04:00 98.7 83 20 145/58 98 Room Air 98.7 04/11/18 04:00 67 04/11/18 00:00 99 04/11/18 00:00 98.0 89 20 143/69 98 Room Air 98.0 04/10/18 20:31 113 101/59 04/10/18 20:21 68 18 Room Air 21 04/10/18 20:00 98.4 113 20 101/59 99 Room Air 98.4 04/10/18 20:00 102 04/10/18 16:00 97.9 112 16 150/95 100 Room Air 97.9 04/10/18 16:00 116 04/10/18 13:56 208.8 124 16 95 04/10/18 13:55 Room Air 5.0 21 04/10/18 12:40 Room Air 04/10/18 12:40 Room Air 5.0 21 04/10/18 12:40 98.2 124 12 114/56 Room Air 98.2 04/10/18 12:00 106 04/10/18 12:00 98.1 106 16 137/56 96 Room Air 98.1 04/10/18 11:11 97.7 59 18 144/63 95 Room Air 5.0 21 97.7 Intake and Output 04/10/18 04/11/18 19:00 07:00 Intake Total 340 ml Output Total 1509 ml 350 ml Balance -1169 ml -350 ml Intake Oral 240 ml IV Total 100 ml Output Urine Total 650 ml 350 ml Hemodialysis UF 859 ml # Voids 2 Laboratory Tests 04/10/18 11:00: White Blood Count 4.8, Red Blood Count 2.88L, Hemoglobin 8.5L, Hematocrit 25.8L , Mean Corpuscular Volume 89, Mean Corpuscular Hemoglobin 29.4, Mean Corpuscular Hemoglobin Concent 33.0, Red Cell Distribution Width 13.2, Platelet Count 167, Mean Platelet Volume 7.0, Neutrophils (%) (Auto) 63.5, Lymphocytes (% ) (Auto) 25.3, Monocytes (%) (Auto) 4.4, Eosinophils (%) (Auto) 5.3H, Basophils (%) (Auto) 1.5 04/10/18 12:50: Sodium Level 138, Potassium Level 2.2#*L, Chloride Level 99, Carbon Dioxide Level 30, Anion Gap 9, Blood Urea Nitrogen 40H, Creatinine 2.8H, Estimat Glomerular Filtration Rate 20.4, Glucose Level 142H, Calcium Level 8.0L, Total Bilirubin 0.5, Aspartate Amino Transf (AST/SGOT) 16, Alanine Aminotransferase ( ALT/SGPT) 14, Alkaline Phosphatase 45L, Troponin I 0.073H, C-Reactive Protein, Quantitative 1.4H, Total Protein 6.2L, Albumin 3.0L, Globulin 3.2, Albumin/ Globulin Ratio 0.9L 04/10/18 20:33: Sodium Level 137, Potassium Level 3.2L, Chloride Level 99, Carbon Dioxide Level 32, Anion Gap 6, Blood Urea Nitrogen 48H, Creatinine 3.7H, Estimat Glomerular Filtration Rate 14.8, Glucose Level 140H, Calcium Level 8.0L, Troponin I 0.388H 04/11/18 02:56: White Blood Count 6.6, Red Blood Count 2.53L, Hemoglobin 8.0L, Hematocrit 22.6L , Mean Corpuscular Volume 89, Mean Corpuscular Hemoglobin 31.7H, Mean Corpuscular Hemoglobin Concent 35.6, Red Cell Distribution Width 13.2, Platelet Count 143L, Mean Platelet Volume 6.3L, Neutrophils (%) (Auto) 72.1, Lymphocytes (%) (Auto) 14.9L, Monocytes (%) (Auto) 8.8, Eosinophils (%) (Auto) 3.4H, Basophils (%) (Auto) 0.8, Sodium Level 137, Potassium Level 3.3L, Chloride Level 100, Carbon Dioxide Level 32, Anion Gap 5, Blood Urea Nitrogen 50H, Creatinine 3.9H, Estimat Glomerular Filtration Rate 13.8, Glucose Level 124H, Calcium Level 8.1L, Total Bilirubin 0.5, Aspartate Amino Transf (AST/SGOT) 17, Alanine Aminotransferase (ALT/SGPT) 14, Alkaline Phosphatase 45L, Troponin I 0.463H, Total Protein 6.5, Albumin 3.0L, Globulin 3.5, Albumin/Globulin Ratio 0.9L, Uric Acid 4.1, Phosphorus Level 3.6, Magnesium Level 1.9, Pro-B-Type Natriuretic Peptide 9471H, Triglycerides Level 37, Cholesterol Level 123, LDL Cholesterol 69, HDL Cholesterol 51, Cholesterol/HDL Ratio 2.4L Height (Feet): 5 Height (Inches): 2.00 Weight (Pounds): 255 Cardiovascular: normal rate Respiratory/Chest: lungs clear Abdomen: soft Objective no change GARIMA OLIVEROS Apr 11, 2018 11:01
[2018-04-11 12:00] VITALS: BP 114/58
[2018-04-11 16:00] VITALS: BP 157/74
[2018-04-11] MEDS ORDERED: Isovue-370 150ml vial INJ PRN (17:00)
[2018-04-11 20:00] VITALS: BP 142/68
--- NOTE | 2018-04-11 20:41 | Infectious Diseases Prog Note ---
Assessment/Plan Problems: (1) Urinary tract infection due to Proteus Assessment & Plan: and gram positive cocci , will start vancomycin with ceftriaxon empiric coverage pending final urine culture (2) Acute on chronic renal failure Assessment & Plan: required HD , continue HD as per renal service (3) Diabetic nephropathy Assessment & Plan: recommend tight glycemic control to keep blood glucose between 100-140 (4) ESRD (end stage renal disease) Assessment & Plan: started on HD as per renal Subjective Allergies: Coded Allergies: PENICILLINS (Verified Allergy, Unknown, 11/10/09) Objective Vital Signs Last 24 Hour Vital Signs Date Time Temp Pulse Resp B/P (MAP) Pulse Ox O2 Delivery O2 Flow Rate FiO2 04/11/18 16:00 98.1 56 18 157/74 99 Room Air 98.1 04/11/18 16:00 56 04/11/18 12:00 54 04/11/18 12:00 98.3 54 18 114/58 99 Room Air 98.3 04/11/18 09:29 145/58 04/11/18 09:29 69 145/58 04/11/18 08:00 61 04/11/18 08:00 98.0 64 18 127/59 98 Room Air 98.0 04/11/18 07:14 69 18 Room Air 21 04/11/18 04:00 98.7 83 20 145/58 98 Room Air 98.7 04/11/18 04:00 67 04/11/18 00:00 99 04/11/18 00:00 98.0 89 20 143/69 98 Room Air 98.0 Height (Feet): 5 Height (Inches): 2.00 Weight (Pounds): 255 Microbiology Date/Time Source Procedure Growth Status 04/09/18 05:15 Urine,Clean Catch Urine Culture - Preliminary Proteus Mirabilis Gram Positive Cocci Resulted Laboratory Tests Test 04/11/18 02:56 04/11/18 14:00 White Blood Count 6.6 K/UL (4.8-10.8) Red Blood Count 2.53 M/UL (4.20-5.40) L Hemoglobin 8.0 G/DL (12.0-16.0) L Hematocrit 22.6 % (37.0-47.0) L Mean Corpuscular Volume 89 FL (80-99) Mean Corpuscular Hemoglobin 31.7 PG (27.0-31.0) H Mean Corpuscular Hemoglobin Concent 35.6 G/DL (32.0-36.0) Red Cell Distribution Width 13.2 % (11.6-14.8) Platelet Count 143 K/UL (150-450) L Mean Platelet Volume 6.3 FL (6.5-10.1) L Neutrophils (%) (Auto) 72.1 % (45.0-75.0) Lymphocytes (%) (Auto) 14.9 % (20.0-45.0) L Monocytes (%) (Auto) 8.8 % (1.0-10.0) Eosinophils (%) (Auto) 3.4 % (0.0-3.0) H Basophils (%) (Auto) 0.8 % (0.0-2.0) Sodium Level 137 MMOL/L (136-145) Potassium Level 3.3 MMOL/L (3.5-5.1) L Chloride Level 100 MMOL/L (98-107) Carbon Dioxide Level 32 MMOL/L (21-32) Anion Gap 5 mmol/L (5-15) Blood Urea Nitrogen 50 mg/dL (7-18) H Creatinine 3.9 MG/DL (0.55-1.30) H Estimat Glomerular Filtration Rate 13.8 mL/min (>60) Glucose Level 124 MG/DL (74-106) H Uric Acid 4.1 MG/DL (2.6-7.2) Calcium Level 8.1 MG/DL (8.5-10.1) L Phosphorus Level 3.6 MG/DL (2.5-4.9) Magnesium Level 1.9 MG/DL (1.8-2.4) Total Bilirubin 0.5 MG/DL (0.2-1.0) Aspartate Amino Transf (AST/SGOT) 17 U/L (15-37) Alanine Aminotransferase (ALT/SGPT) 14 U/L (12-78) Alkaline Phosphatase 45 U/L (46-116) L Troponin I 0.463 ng/mL (0.000-0.056) 0.333 ng/mL (0.000-0.056) Pro-B-Type Natriuretic Peptide 9471 pg/mL (0-125) H Total Protein 6.5 G/DL (6.4-8.2) Albumin 3.0 G/DL (3.4-5.0) L Globulin 3.5 g/dL Albumin/Globulin Ratio 0.9 (1.0-2.7) L Triglycerides Level 37 MG/DL (30-150) Cholesterol Level 123 MG/DL (< 200) LDL Cholesterol 69 mg/dL (<100) HDL Cholesterol 51 MG/DL (40-60) Cholesterol/HDL Ratio 2.4 (3.3-4.4) L Current Medications Medications (Trade) Dose Ordered Sig/Jesus Route PRN Reason Start Time Stop Time Status Last Admin Dose Admin Acetaminophen (Tylenol) 650 mg Q4H PRN ORAL For Pain 04/08/18 21:45 05/08/18 21:44 Albuterol Sulfate (Proventil) 2.5 mg Q6H PRN HHN wheezing 04/08/18 21:45 04/13/18 21:44 Apixaban (Eliquis) 2.5 mg BID ORAL 04/11/18 09:00 05/11/18 08:59 04/11/18 16:55 Aspirin (ASA) 325 mg DAILY ORAL 04/11/18 09:00 05/11/18 08:59 04/11/18 09:28 Atorvastatin Calcium (Lipitor) 10 mg BEDTIME ORAL 04/09/18 21:00 05/09/18 20:59 04/10/18 20:31 Calcium Acetate (Phoslo) 667 mg TID ORAL 04/09/18 09:00 05/09/18 08:59 04/11/18 16:55 Chlorhexidine Gluconate (Cira-Hex 2%) 1 applic DAILY@1999 TOPIC 04/09/18 20:00 05/09/18 19:59 04/10/18 20:31 Dextrose (Dextrose 50%) 25 ml STAT PRN IV Hypoglycemia 04/08/18 21:45 05/08/18 21:44 Dextrose (Dextrose 50%) 50 ml STAT PRN IV Hypoglycemia 04/08/18 21:45 05/08/18 21:44 Docusate Sodium (Colace) 100 mg TID ORAL 04/09/18 09:00 05/09/18 08:59 04/11/18 16:55 Epoetin Jose (Procrit (for non ESRD use)) 10,000 units SUN-SUN-SUN SUBQ 04/12/18 21:00 05/10/18 20:59 Gabapentin (Neurontin) 100 mg THREE TIMES A DAY ORAL 04/09/18 09:00 05/09/18 08:59 04/11/18 16:56 Hydralazine HCl (Apresoline) 25 mg Q4HR PRN ORAL bp over 160syst 04/08/18 23:15 05/08/18 23:14 Insulin Aspart (NovoLOG) BEFORE MEALS AND HS SUBQ 04/09/18 06:30 05/09/18 06:29 04/11/18 17:00 Lactobacillus Acidophilus (Culturelle) 1 tab DAILY ORAL 04/09/18 09:00 05/09/18 08:59 04/11/18 09:28 Metoprolol Tartrate (Lopressor) 50 mg EVERY 12 HOURS ORAL 04/10/18 21:00 05/09/18 08:59 04/11/18 09:29 Nitroglycerin (Ntg) 1 patch Q24H TDERMAL 04/11/18 09:00 05/11/18 08:59 04/11/18 09:29 Pantoprazole (Protonix) 40 mg DAILY ORAL 04/09/18 09:00 05/09/18 08:59 04/11/18 09:28 Vitamin B Complex/ Vit C/Folic Acid (Nephrovite) 1 tab DAILY ORAL 04/09/18 09:00 05/09/18 08:59 04/11/18 09:28 Vitamin D (Vitamin D) 1,000 intlu DAILY ORAL 04/09/18 09:00 05/09/18 08:59 04/11/18 09:28 Fide Herr M.D. Apr 11, 2018 20:41
[2018-04-11] MEDS: Dyna-Hex 2% Top Sol 2oz TOPIC SCH (20:42)
[2018-04-11] MEDS: cefTRIAXone 1 GM in D5W 55 ML IVPB SCH (21:41)
[2018-04-11] MEDS ORDERED: Vancomycin 2 GM in D5W 500ml 550 ML IVPB ONE (23:00)
[2018-04-12] VITALS (13 sets, daily range): BP systolic 138–213; BP diastolic 66–99
--- NOTE | 2018-04-12 00:35 | Cardiology Report ---
APPROVED REPORT EKG Measurement Heart [id number] ND 150P78 [id number] Sinus rhythm with frequent premature ventricular complexes T wave abnormality, consider lateral ischemia Prolonged QT Abnormal ECG
[2018-04-12 05:12] LABS: HEMATOCRIT 23.7 % (37.0-47.0); HEMOGLOBIN 7.9 G/DL (12.0-16.0); MEAN CORPUSCULAR VOLUME 90 FL (80-99); PLATELET COUNT 142 K/UL (150-450); RED BLOOD COUNT 2.65 M/UL (4.20-5.40); RED CELL DISTRIBUTION WIDTH 13.1 % (11.6-14.8); WHITE BLOOD COUNT 6.6 K/UL (4.8-10.8)
[2018-04-12 05:30] LABS: ANION GAP 5 mmol/L (5-15); BLOOD UREA NITROGEN 59 mg/dL (7-18); CALCIUM 8.3 MG/DL (8.5-10.1); CARBON DIOXIDE 32 MMOL/L (21-32); CHLORIDE 100 MMOL/L (98-107); CREATININE 4.5 MG/DL (0.55-1.30); POTASSIUM 3.6 MMOL/L (3.5-5.1); SODIUM 137 MMOL/L (136-145)
[2018-04-12] MEDS: NovoLOG Insulin Flexpen SUBQ SCH ×4 (07:00→21:18)
[2018-04-12] MEDS: Nitroglycerin Patch 0.4mg TDERMAL SCH (09:00)
[2018-04-12] MEDS: Eliquis 2.5mg tablet ORAL SCH ×2 (09:00→21:37)
[2018-04-12] MEDS: Calcium Acetate 667mg Tab ORAL SCH ×3 (09:00→18:18)
[2018-04-12] MEDS: Docusate 100mg cap ORAL SCH ×3 (09:00→18:18)
[2018-04-12] MEDS ORDERED: Bacitracin Oint 15gm Tube TOPIC ONE ×2 (09:22→15:08)
[2018-04-12] MEDS ORDERED: Bacitracin 50000 Units Vial ONE (09:22)
[2018-04-12] MEDS ORDERED: Heparin 5000 units/ml inj ONE (09:22)
[2018-04-12] MEDS ORDERED: Bupivacaine 0.5% Inj 30 ml vial INJ ONE (09:22)
[2018-04-12] MEDS ORDERED: Lidocaine 1% Plain 30 ml INJ ONE (09:22)
[2018-04-12] MEDS ORDERED: METOPROLOL TART50 MG ORAL (09:46)
[2018-04-12] MEDS ORDERED: ASPIRIN325 MG ORAL (09:46)
[2018-04-12] MEDS ORDERED: ELIQUIS2.5 MG ORAL (09:46)
--- NOTE | 2018-04-12 09:48 | General Progress Note ---
Assessment/Plan Assessment/Plan S: I am ok O: appears comfortable. Denies pain or sob PHYSICAL EXAMINATION: HEAD AND NECK: Atraumatic and normocephalic. Positive for the right-sided hemiparesis. CHEST: Clear to auscultation. No wheezing. No crackles. HEART: S1 and S2. Regular rate and rhythm. Negative for S3. Positive for questionable cardiac murmurs. ABDOMEN: Obese and soft. Bowel sounds normal. No gross organomegaly. NEUROLOGIC: The patient is awake, alert and oriented x3. Positive for slurred speech. MUSCULOSKELETAL: Positive for the left-sided hemiparesis, more prominent in the left upper extremity. Right Jugular Permcath in place Medication : reviewed and reconciled ASSESSMENT: 1. ESRD ( accepting to proceed with HD) 2. Diabetes type 2. 3. Hypertension, uncontrolled. 5. Cerebrovascular accident with left-sided hemiparesis. 6. Gastrointestinal and deep vein thrombosis prophylaxis. 7. Iron-deficiency anemia. 8. GI DVT prophylaxia 9. Abnormal Troponin 10 . PAfibrillation, not a candidate for senior care anticoagulation 11. Acute on chronic Anemia PLAN OF CARE: Resume ATC with ASA, will monitor Hbg Ok to followup as outpatient IV antibiotic for additional 5 Days HD protocol per Nephro Subjective Allergies: Coded Allergies: PENICILLINS (Verified Allergy, Unknown, 11/10/09) Objective Last 24 Hour Vital Signs Date Time Temp Pulse Resp B/P (MAP) Pulse Ox O2 Delivery O2 Flow Rate FiO2 04/12/18 04:00 55 04/12/18 04:00 98.5 62 17 144/74 98 98.5 04/12/18 00:00 56 04/12/18 00:00 98.4 57 18 139/84 98 98.4 04/11/18 21:00 68 142/68 04/11/18 20:49 68 18 Room Air 21 04/11/18 20:00 54 04/11/18 20:00 98.2 55 19 142/68 100 Room Air 98.2 04/11/18 16:00 98.1 56 18 157/74 99 Room Air 98.1 04/11/18 16:00 56 04/11/18 12:00 54 04/11/18 12:00 98.3 54 18 114/58 99 Room Air 98.3 Intake and Output 04/11/18 04/12/18 19:00 07:00 Intake Total 390 ml 618.6 ml Output Total 350 ml Balance 40 ml 618.6 ml Intake Oral 390 ml 120 ml IV Total 498.6 ml Output Urine Total 350 ml Laboratory Tests 04/11/18 14:00: Troponin I 0.333H 04/12/18 04:12: Troponin I 0.209H, White Blood Count 6.6, Red Blood Count 2.65L, Hemoglobin 7.9L , Hematocrit 23.7L, Mean Corpuscular Volume 90, Mean Corpuscular Hemoglobin 29.9 , Mean Corpuscular Hemoglobin Concent 33.4, Red Cell Distribution Width 13.1, Platelet Count 142L, Mean Platelet Volume 7.0, Neutrophils (%) (Auto) , Lymphocytes (%) (Auto) , Monocytes (%) (Auto) , Eosinophils (%) (Auto) , Basophils (%) (Auto) , Sodium Level 137, Potassium Level 3.6, Chloride Level 100 , Carbon Dioxide Level 32, Anion Gap 5, Blood Urea Nitrogen 59H, Creatinine 4.5H , Estimat Glomerular Filtration Rate 11.8, Glucose Level 119H, Calcium Level 8.3L 04/12/18 09:15: Prothrombin Time [Pending], Prothromb Time International Ratio [Pending], Activated Partial Thromboplast Time [Pending] Height (Feet): 5 Height (Inches): 2.00 Weight (Pounds): 253 Danie Banegas MD Apr 12, 2018 09:48
[2018-04-12] MEDS ORDERED: fentaNYL 100 mcg/2 mL IV ONE (09:58)
[2018-04-12] MEDS ORDERED: Midazolam 2mg/2ml Inj ONE (09:58)
[2018-04-12] MEDS ORDERED: Tubing IV Secondary IV ONE (10:03)
[2018-04-12] MEDS ORDERED: Zemuron 50mg/5ml Inj IV ONE ×2 (10:18→11:00)
[2018-04-12] MEDS ORDERED: Propofol 200mg/20ml IV ONE (10:20)
[2018-04-12] MEDS ORDERED: NS Irrig 1000ml ONE (11:00)
[2018-04-12] MEDS ORDERED: Neostigmine 1mg/ml 10ml Inj ONE (11:00)
[2018-04-12] MEDS ORDERED: Glycopyrrolate 0.2mg/ml 1ml Vial ONE (11:00)
[2018-04-12] MEDS ORDERED: Sterile Water Irrig 1000ml IRRIG ONE (11:00)
--- NOTE | 2018-04-12 11:08 | Anethesia Preoperative Eval ---
Anesthesia Pre-op PMH/ROS General Date of Evaluation: Apr 12, 2018 Time of Evaluation: 10:53 Anesthesiologist: Kate ASA Score: ASA 3 Mallampati Score Class I : Soft palate, uvula, fauces, pillars visible Class II: Soft palate, uvula, fauces visible Class III: Soft palate, base of uvula visible Class IV: Only hard plate visible Mallampati Classification: Class III Surgeon: Cristel Diagnosis: ESRD Dialysis access Surgical Procedure: A-V shunt placement Anesthesia History: none Family History: no anesthesia problems Allergies: Coded Allergies: PENICILLINS (Verified Allergy, Unknown, 11/10/09) Past Medical History Cardiovascular: Reports: HTN, CAD, arrhythmia - A fib Had a recent episode with high VR impruved with metoprolol; Denies: SC, valve dz, other Pulmonary: Reports: HUBER; Denies: asthma, COPD, other Gastrointestinal/Genitourinary: Reports: GERD, ESRD; Denies: CRI, other Neurologic/Psychiatric: Reports: dementia - mild, CVA - L sided weakness Endocrine: Reports: DM - porly controled; Denies: hypothyroidism, steroids, other Hematology/Immune: Reports: anemia - Hb went down to 7,9 will need intraoperative transfusion; Denies: DVT, bleeding disorder, other Musculoskeletal/Integumentary: Reports: other - L sided weakness and contructure; Denies: OA, RA, DJD, DDD, edema Other: obesity PMH Narrative: as above PSxH Narrative: Hysterectomy dialysis catheter placement Anesthesia Pre-op Phys. Exam Physician Exam Last Vital Signs Date Time Temp Pulse Resp B/P (MAP) Pulse Ox O2 Delivery O2 Flow Rate FiO2 04/12/18 08:00 97.6 59 18 147/76 99 97.6 04/11/18 20:49 Room Air 21 04/10/18 13:55 5.0 Constitutional: NAD Neurologic: other - unable to obtaine Cardiovascular: other - IIHR Respiratory: other - diminished breath sounds bilaterally Airway Exam Mallampati Score: Class III MO: limited Neck: short stiff ROM: limited Teeth: missing Dentures: upper, lower Anesthesia Pre-op A/P Labs Hematology Test 04/12/18 04:12 White Blood Count 6.6 K/UL (4.8-10.8) Red Blood Count 2.65 M/UL (4.20-5.40) L Hemoglobin 7.9 G/DL (12.0-16.0) L Hematocrit 23.7 % (37.0-47.0) L Mean Corpuscular Volume 90 FL (80-99) Mean Corpuscular Hemoglobin 29.9 PG (27.0-31.0) Mean Corpuscular Hemoglobin Concent 33.4 G/DL (32.0-36.0) Red Cell Distribution Width 13.1 % (11.6-14.8) Platelet Count 142 K/UL (150-450) L Mean Platelet Volume 7.0 FL (6.5-10.1) Neutrophils (%) (Auto) % (45.0-75.0) Lymphocytes (%) (Auto) % (20.0-45.0) Monocytes (%) (Auto) % (1.0-10.0) Eosinophils (%) (Auto) % (0.0-3.0) Basophils (%) (Auto) % (0.0-2.0) Coagulation Test 04/12/18 09:15 Prothrombin Time 10.5 SEC (9.30-11.50) Prothromb Time International Ratio 1.0 (0.9-1.1) Activated Partial Thromboplast Time 25 SEC (23-33) Chemistry Test 04/11/18 14:00 04/12/18 04:12 Troponin I 0.333 ng/mL (0.000-0.056) 0.209 ng/mL (0.000-0.056) Sodium Level 137 MMOL/L (136-145) Potassium Level 3.6 MMOL/L (3.5-5.1) Chloride Level 100 MMOL/L (98-107) Carbon Dioxide Level 32 MMOL/L (21-32) Anion Gap 5 mmol/L (5-15) Blood Urea Nitrogen 59 mg/dL (7-18) H Creatinine 4.5 MG/DL (0.55-1.30) H Estimat Glomerular Filtration Rate 11.8 mL/min (>60) Glucose Level 119 MG/DL (74-106) H Calcium Level 8.3 MG/DL (8.5-10.1) L Risk Assessment & Plan Assessment: ASA 3 cardiology is following the patient after resent episode of AFib with rapid VR, troponin level is elevated most likely do to renal d-s. Plan: Ga with ETT , intraoperative transfusion of PRBC Status Change Before Surgery: No Pre-Antibiotics Drug: Ancef 1gr. Given Within 1 Hr of Incision: Yes Time Given: 11:12 Sang Love MD Apr 12, 2018 11:08
--- NOTE | 2018-04-12 11:21 | Pre-Procedure Note/Attestation ---
Pre-Procedure Note/Attestation Complete Prior to Procedure Planned Procedure: left Procedure Narrative: arm dialysis shunt placement Indications for Procedure Pre-Operative Diagnosis: ESRD Attestation I attest that I discussed the nature of the procedure; its benefits; risks and complications; and alternatives (and the risks and benefits of such alternatives ), prior to the procedure, with the patient (or the patient's legal admissions representative). I attest that, if there was a reasonable possibility of needing a blood transfusion, the patient (or the patient's legal admissions representative) was given the [facility] standardized written summary, pursuant to the Alvaro Judit Blood Safety Act ([place] Health and Safety Code # 1645, as amended). I attest that I re-evaluated the patient just prior to the surgery and that there has been no change in the patient's H&P, except as documented below: RIVERA SALAZAR Apr 12, 2018 11:21
[2018-04-12] MEDS ORDERED: fentaNYL 100 mcg/2 mL IV PRN (12:45)
[2018-04-12] MEDS ORDERED: DiphenhydrAMINE 50mg/ml Inj IVP PRN (12:45)
[2018-04-12] MEDS ORDERED: Heparin 1000 units/ml 1ml Vial ONE (12:46)
--- NOTE | 2018-04-12 13:38 | Nephrology Progress Note ---
Assessment/Plan Problem List: (1) ESRD (end stage renal disease) (2) Diabetic nephropathy (3) Anemia (4) HTN (hypertension) (5) Elevated troponin I level Assessment patient dialysed 04/11 developed at fib Renal failure, likely chronic, and ESRD need HD on admission last Cr 5.4 K 5.8 CrCl 6 Diabetic Nephropathy / Proteinuria UTI Sever Anemia / symptomatic HTN OOC CVA left weakness Plan PO K supplement Has access- dialysis next 04/12 OP dialysis placement hep panel ordered a Hep panel from 03/21 in chart / EMR Subjective ROS Limited/Unobtainable: No Constitutional: Reports: malaise Objective Objective Last 24 Hour Vital Signs Date Time Temp Pulse Resp B/P (MAP) Pulse Ox O2 Delivery O2 Flow Rate FiO2 04/12/18 08:00 97.6 59 18 147/76 99 97.6 04/12/18 04:00 55 04/12/18 04:00 98.5 62 17 144/74 98 98.5 04/12/18 00:00 56 04/12/18 00:00 98.4 57 18 139/84 98 98.4 04/11/18 21:00 68 142/68 04/11/18 20:49 68 18 Room Air 21 04/11/18 20:00 54 04/11/18 20:00 98.2 55 19 142/68 100 Room Air 98.2 04/11/18 16:00 98.1 56 18 157/74 99 Room Air 98.1 04/11/18 16:00 56 Intake and Output 04/11/18 04/12/18 19:00 07:00 Intake Total 390 ml 618.6 ml Output Total 350 ml Balance 40 ml 618.6 ml Intake Oral 390 ml 120 ml IV Total 498.6 ml Output Urine Total 350 ml Current Medications Medications (Trade) Dose Ordered Sig/Jesus Route PRN Reason Start Time Stop Time Status Last Admin Dose Admin Acetaminophen (Tylenol) 650 mg Q4H PRN ORAL For Pain 04/08/18 21:45 05/08/18 21:44 Albuterol Sulfate (Proventil) 2.5 mg Q6H PRN HHN wheezing 04/08/18 21:45 04/13/18 21:44 Apixaban (Eliquis) 2.5 mg BID ORAL 04/11/18 09:00 05/11/18 08:59 04/11/18 16:55 Aspirin (ASA) 325 mg DAILY ORAL 04/11/18 09:00 05/11/18 08:59 04/11/18 09:28 Atorvastatin Calcium (Lipitor) 10 mg BEDTIME ORAL 04/09/18 21:00 05/09/18 20:59 04/11/18 20:46 Calcium Acetate (Phoslo) 667 mg TID ORAL 04/09/18 09:00 05/09/18 08:59 04/11/18 16:55 Ceftriaxone Sodium 1 gm/ Dextrose 55 ml @ 110 mls/hr Q24H IVPB 04/11/18 22:00 04/18/18 21:59 04/11/18 21:41 Chlorhexidine Gluconate (Cira-Hex 2%) 1 applic DAILY@2000 TOPIC 04/09/18 20:00 05/09/18 19:59 04/11/18 20:42 Dextrose (Dextrose 50%) 25 ml STAT PRN IV Hypoglycemia 04/08/18 21:45 05/08/18 21:44 Dextrose (Dextrose 50%) 50 ml STAT PRN IV Hypoglycemia 04/08/18 21:45 05/08/18 21:44 Diphenhydramine HCl (Benadryl) 25 mg Q15M PRN IVP Itching 04/12/18 12:45 Docusate Sodium (Colace) 100 mg TID ORAL 04/09/18 09:00 05/09/18 08:59 04/11/18 16:55 Epoetin Jose (Procrit (for non ESRD use)) 10,000 units SUN-SUN-SUN SUBQ 04/12/18 21:00 05/10/18 20:59 Fentanyl Citrate (Sublimaze 100 mcg/2 mL) 25 mcg Q10M PRN IV Moderate Pain (Pain Scale 4-6) 04/12/18 12:45 Gabapentin (Neurontin) 100 mg THREE TIMES A DAY ORAL 04/09/18 09:00 05/09/18 08:59 04/11/18 16:56 Hydralazine HCl (Apresoline) 25 mg Q4HR PRN ORAL bp over 160syst 04/08/18 23:15 05/08/18 23:14 Insulin Aspart (NovoLOG) BEFORE MEALS AND HS SUBQ 04/09/18 06:30 05/09/18 06:29 04/12/18 07:00 Lactobacillus Acidophilus (Culturelle) 1 tab DAILY ORAL 04/09/18 09:00 05/09/18 08:59 04/11/18 09:28 Metoprolol Tartrate (Lopressor) 50 mg EVERY 12 HOURS ORAL 04/10/18 21:00 05/09/18 08:59 04/11/18 09:29 Nitroglycerin (Ntg) 1 patch Q24H TDERMAL 04/11/18 09:00 05/11/18 08:59 04/11/18 09:29 Ondansetron HCl (Zofran) 4 mg Q1H PRN IVP Nausea & Vomiting 04/12/18 12:45 Pantoprazole (Protonix) 40 mg DAILY ORAL 04/09/18 09:00 05/09/18 08:59 04/11/18 09:28 Sodium Chloride 1,000 ml @ 10 mls/hr Q24H IV 04/12/18 12:08 04/12/18 18:00 Sodium Chloride 1,000 ml @ 10 mls/hr Q24H IVLG 04/12/18 12:31 04/12/18 14:30 Vancomycin HCl (Vanco rx to dose) 1 ea DAILY PRN MISC Per rx protocol 04/11/18 20:45 05/11/18 20:44 Vitamin B Complex/ Vit C/Folic Acid (Nephrovite) 1 tab DAILY ORAL 04/09/18 09:00 05/09/18 08:59 04/11/18 09:28 Vitamin D (Vitamin D) 1,000 intlu DAILY ORAL 04/09/18 09:00 05/09/18 08:59 04/11/18 09:28 Laboratory Tests 04/11/18 14:00: Troponin I 0.333H 04/12/18 04:12: Troponin I 0.209H, White Blood Count 6.6, Red Blood Count 2.65L, Hemoglobin 7.9L , Hematocrit 23.7L, Mean Corpuscular Volume 90, Mean Corpuscular Hemoglobin 29.9 , Mean Corpuscular Hemoglobin Concent 33.4, Red Cell Distribution Width 13.1, Platelet Count 142L, Mean Platelet Volume 7.0, Neutrophils (%) (Auto) , Lymphocytes (%) (Auto) , Monocytes (%) (Auto) , Eosinophils (%) (Auto) , Basophils (%) (Auto) , Sodium Level 137, Potassium Level 3.6, Chloride Level 100 , Carbon Dioxide Level 32, Anion Gap 5, Blood Urea Nitrogen 59H, Creatinine 4.5H , Estimat Glomerular Filtration Rate 11.8, Glucose Level 119H, Calcium Level 8.3L 04/12/18 09:15: Prothrombin Time 10.5, Prothromb Time International Ratio 1.0, Activated Partial Thromboplast Time 25 Height (Feet): 5 Height (Inches): 2.00 Weight (Pounds): 253 General Appearance: no apparent distress Cardiovascular: normal rate Respiratory/Chest: decreased breath sounds Abdomen: soft Objective no change GARIMA OLIVEROS Apr 12, 2018 13:38
--- NOTE | 2018-04-12 13:47 | Consultation ---
History of Present Illness General Date patient seen: Apr 12, 2018 Chief Complaint: Abnormal Labs Present Illness HPI the pt with hx of depression and anxiety. the pt lost his son and has been on meds before. The pt is on prednisone and stated at times she has sadness however managing it through reading bible and going to baptism Allergies: Coded Allergies: PENICILLINS (Verified Allergy, Unknown, 11/10/09) Medication History Scheduled Amlodipine Besylate* (Amlodipine Besylate*), 10 MG ORAL DAILY, (Reported) Apixaban (Eliquis), 2.5 MG ORAL BID Aspirin* (Aspirin*), 81 MG ORAL DAILY Atorvastatin (Lipitor), 10 MG ORAL BEDTIME, (Reported) Calcium Acetate (Calcium Acetate), 667 MG PO DAILY, (Reported) Docusate Sodium* (Docusate Sodium*), 100 MG ORAL TWICE A DAY, (Reported) Ferrous Sulfate* (Ferrous Sulfate*), 325 MG ORAL DAILY, (Reported) Gabapentin* (Gabapentin*), 100 MG ORAL THREE TIMES A DAY, (Reported) Lactobacillus Acidophilus (Acidophilus Lactobacillus), 1 TAB ORAL DAILY, ( Reported) Megestrol Acetate (Megestrol Acetate), 400 MG PO BID, (Reported) Metoprolol Tartrate* (Metoprolol Tartrate*), 50 MG ORAL EVERY 12 HOURS Nifedipine Xl* (Procardia Xl*), 60 MG ORAL Q12HR Ranitidine Hcl* (Zantac*), 150 MG ORAL DAILY, (Reported) Vitamin B Cmplx/Vit C/Folic AC (Nephro-Gildardo Tablet), 1 TAB ORAL DAILY, (Reported ) Vitamin D (Vitamin D3), 1,000 UNITS ORAL DAILY, (Reported) Scheduled PRN Acetaminophen* (Acetaminophen 325MG Tablet*), 650 MG ORAL Q4H PRN for For Pain, (Reported) Albuterol Sulfate* (Albuterol Sulfate Hhn*), 3 ML INH Q6H PRN for wheezing, ( Reported) Miscellaneous Medications Cranberry Fruit Concentrate (Cranberry), 450 MG PO, (Reported) Discontinued Medications Insulin Aspart* (Novolog*), 0 IM, (Reported) Discontinued Reason: Medication dose changed Metoprolol Tartrate* (Metoprolol Tartrate*), 25 MG ORAL EVERY 12 HOURS, ( Reported) Discontinued Reason: Medication dose changed Minoxidil (Minoxidil), 2.5 MG ORAL Q4H PRN Discontinued Reason: Medication dose changed Patient History Limited by: medical condition History Provided By: Patient, Medical Record, PMD Healthcare decision maker Resuscitation status Full Code Advanced Directive on File Yes Past Medical/Surgical History Past Medical/Surgical History: (1) ESRD (end stage renal disease) (2) Diabetic nephropathy (3) Urinary tract infection due to Proteus (4) Elevated troponin I level (5) Dyspnea (6) Symptomatic anemia (7) Acute on chronic renal failure (8) Anemia (9) HTN (hypertension) Review of Systems Psychiatric: Reports: prior hx, anxiety, depressed feelings, emotional problems Physical Exam General Appearance: no apparent distress, alert Neurologic: oriented x 3, responsive, depressed affect Last 24 Hour Vital Signs Date Time Temp Pulse Resp B/P (MAP) Pulse Ox O2 Delivery O2 Flow Rate FiO2 04/12/18 08:00 97.6 59 18 147/76 99 97.6 04/12/18 04:00 55 04/12/18 04:00 98.5 62 17 144/74 98 98.5 04/12/18 00:00 56 04/12/18 00:00 98.4 57 18 139/84 98 98.4 04/11/18 21:00 68 142/68 04/11/18 20:49 68 18 Room Air 21 04/11/18 20:00 54 04/11/18 20:00 98.2 55 19 142/68 100 Room Air 98.2 04/11/18 16:00 98.1 56 18 157/74 99 Room Air 98.1 04/11/18 16:00 56 Intake and Output 04/11/18 04/12/18 19:00 07:00 Intake Total 390 ml 618.6 ml Output Total 350 ml Balance 40 ml 618.6 ml Intake Oral 390 ml 120 ml IV Total 498.6 ml Output Urine Total 350 ml Laboratory Tests Test 04/11/18 14:00 04/12/18 04:12 04/12/18 09:15 Troponin I 0.333 ng/mL (0.000-0.056) 0.209 ng/mL (0.000-0.056) White Blood Count 6.6 K/UL (4.8-10.8) Red Blood Count 2.65 M/UL (4.20-5.40) L Hemoglobin 7.9 G/DL (12.0-16.0) L Hematocrit 23.7 % (37.0-47.0) L Mean Corpuscular Volume 90 FL (80-99) Mean Corpuscular Hemoglobin 29.9 PG (27.0-31.0) Mean Corpuscular Hemoglobin Concent 33.4 G/DL (32.0-36.0) Red Cell Distribution Width 13.1 % (11.6-14.8) Platelet Count 142 K/UL (150-450) L Mean Platelet Volume 7.0 FL (6.5-10.1) Neutrophils (%) (Auto) % (45.0-75.0) Lymphocytes (%) (Auto) % (20.0-45.0) Monocytes (%) (Auto) % (1.0-10.0) Eosinophils (%) (Auto) % (0.0-3.0) Basophils (%) (Auto) % (0.0-2.0) Sodium Level 137 MMOL/L (136-145) Potassium Level 3.6 MMOL/L (3.5-5.1) Chloride Level 100 MMOL/L (98-107) Carbon Dioxide Level 32 MMOL/L (21-32) Anion Gap 5 mmol/L (5-15) Blood Urea Nitrogen 59 mg/dL (7-18) H Creatinine 4.5 MG/DL (0.55-1.30) H Estimat Glomerular Filtration Rate 11.8 mL/min (>60) Glucose Level 119 MG/DL (74-106) H Calcium Level 8.3 MG/DL (8.5-10.1) L Prothrombin Time 10.5 SEC (9.30-11.50) Prothromb Time International Ratio 1.0 (0.9-1.1) Activated Partial Thromboplast Time 25 SEC (23-33) Height (Feet): 5 Height (Inches): 2.00 Weight (Pounds): 253 Medications Current Medications Medications (Trade) Dose Ordered Sig/Jesus Route PRN Reason Start Time Stop Time Status Last Admin Dose Admin Acetaminophen (Tylenol) 650 mg Q4H PRN ORAL For Pain 04/08/18 21:45 05/08/18 21:44 Albuterol Sulfate (Proventil) 2.5 mg Q6H PRN HHN wheezing 04/08/18 21:45 04/13/18 21:44 Apixaban (Eliquis) 2.5 mg BID ORAL 04/11/18 09:00 05/11/18 08:59 04/11/18 16:55 Aspirin (ASA) 325 mg DAILY ORAL 04/11/18 09:00 05/11/18 08:59 04/11/18 09:28 Atorvastatin Calcium (Lipitor) 10 mg BEDTIME ORAL 04/09/18 21:00 05/09/18 20:59 04/11/18 20:46 Calcium Acetate (Phoslo) 667 mg TID ORAL 04/09/18 09:00 05/09/18 08:59 04/11/18 16:55 Ceftriaxone Sodium 1 gm/ Dextrose 55 ml @ 110 mls/hr Q24H IVPB 04/11/18 22:00 04/18/18 21:59 04/11/18 21:41 Chlorhexidine Gluconate (Cira-Hex 2%) 1 applic DAILY@2000 TOPIC 04/09/18 20:00 05/09/18 19:59 04/11/18 20:42 Dextrose (Dextrose 50%) 25 ml STAT PRN IV Hypoglycemia 04/08/18 21:45 05/08/18 21:44 Dextrose (Dextrose 50%) 50 ml STAT PRN IV Hypoglycemia 04/08/18 21:45 05/08/18 21:44 Diphenhydramine HCl (Benadryl) 25 mg Q15M PRN IVP Itching 04/12/18 12:45 Docusate Sodium (Colace) 100 mg TID ORAL 04/09/18 09:00 05/09/18 08:59 04/11/18 16:55 Epoetin Jose (Procrit (for non ESRD use)) 10,000 units MON-SUN-SUN SUBQ 04/12/18 21:00 05/10/18 20:59 Fentanyl Citrate (Sublimaze 100 mcg/2 mL) 25 mcg Q10M PRN IV Moderate Pain (Pain Scale 4-6) 04/12/18 12:45 Gabapentin (Neurontin) 100 mg THREE TIMES A DAY ORAL 04/09/18 09:00 05/09/18 08:59 04/11/18 16:56 Hydralazine HCl (Apresoline) 25 mg Q4HR PRN ORAL bp over 160syst 04/08/18 23:15 05/08/18 23:14 Insulin Aspart (NovoLOG) BEFORE MEALS AND HS SUBQ 04/09/18 06:30 05/09/18 06:29 04/12/18 07:00 Lactobacillus Acidophilus (Culturelle) 1 tab DAILY ORAL 04/09/18 09:00 05/09/18 08:59 04/11/18 09:28 Lisinopril (Zestril) 5 mg DAILY ORAL 04/13/18 09:00 05/13/18 08:59 UNV Lisinopril (Zestril) 5 mg ONCE ONCE ORAL 04/12/18 13:45 04/12/18 13:46 UNV Metoprolol Tartrate (Lopressor) 25 mg EVERY 12 HOURS ORAL 04/12/18 21:00 05/09/18 08:59 UNV Nitroglycerin (Ntg) 1 patch Q24H TDERMAL 04/11/18 09:00 05/11/18 08:59 04/11/18 09:29 Ondansetron HCl (Zofran) 4 mg Q1H PRN IVP Nausea & Vomiting 04/12/18 12:45 Pantoprazole (Protonix) 40 mg DAILY ORAL 04/09/18 09:00 05/09/18 08:59 04/11/18 09:28 Sodium Chloride 1,000 ml @ 10 mls/hr Q24H IV 04/12/18 12:08 04/12/18 18:00 Sodium Chloride 1,000 ml @ 10 mls/hr Q24H IVLG 04/12/18 12:31 04/12/18 14:30 Vancomycin HCl (Vanco rx to dose) 1 ea DAILY PRN MISC Per rx protocol 04/11/18 20:45 05/11/18 20:44 Vitamin B Complex/ Vit C/Folic Acid (Nephrovite) 1 tab DAILY ORAL 04/09/18 09:00 05/09/18 08:59 04/11/18 09:28 Vitamin D (Vitamin D) 1,000 intlu DAILY ORAL 04/09/18 09:00 05/09/18 08:59 04/11/18 09:28 Assessment/Plan Status: stable Assessment/Plan Mdd provided ro/st no meds at this time Kathi Villarreal MD Apr 12, 2018 13:47
--- NOTE | 2018-04-12 13:58 | Brief Operative Note ---
Immediate Post Operative Note Operative Note Pre-op Diagnosis: ESRD Procedure: left arm AV fistula creation Post-op Diagnosis: same as pre-op Findings: consistent w/pre-op dx studies Surgeon: Mann Fam Anesthesiologist: Kate Anesthesia: general Specimen: none Complications: none Condition: stable Fluids: see anesthesia record Estimated Blood Loss: minimal Drains: none Implant(s) used?: RIVERA Velasco Apr 12, 2018 13:58
[2018-04-12] MEDS ORDERED: Lisinopril 10mg tab ORAL SCH (14:00)
--- NOTE | 2018-04-12 14:16 | Diagnostic Imaging Report ---
APPROVED REPORT CPT Code: G0365 Present Symptoms Comments: Pre- Op Comments Technically difficult study due to vessel depth. Vein Measurements(cm) Cephalic Basilic Right LeftRight Left Upper Arm3.03.5Mid Upper Arm3.4 Mid Upper Arm3.23.8Antecubital Fossa3.7 1.9Antecubital FossaWrist VEIN MAPPING: The right and left basilic and left cephalic veins were imaged and measured to evaluate as a potential graft for dialysis access. BILATERAL UPPER EXTREMITY (Deep venous system): Imaging reveals patency of the internal jugular, subclavian, axillary and brachial veins. Doppler indicates normal spontaneous flow within these venous segments.
--- NOTE | 2018-04-12 14:38 | Immediate Post-Op Evaluation ---
Immediate Post-Op Evalulation Immediate Post-Op Evalulation Procedure: L arm creation of A-V fistula Date of Evaluation: Apr 12, 2018 Time of Evaluation: 14:33 IV Fluids: 300 Blood Products: 1 unit of PRBC Estimated Blood Loss: 150 Urinary Output: none Blood Pressure Systolic: 148 Blood Pressure Diastolic: 74 Pulse Rate: 62 Respiratory Rate: 20 O2 Sat by Pulse Oximetry: 99 Temperature (Fahrenheit): 97.6 Pain Score (1-10): 1 Nausea: No Vomiting: No Complications Significant nasal bleeding after placement of 30 nasal airway suction and local use of phenylephrine solution stopped the bleeding, total blood loss about 30 cc.spontaneous breathing. Pulse oximetry 99 to 100% at PACU. Patient Status: reacts, patent, extubated, none Hydration Status: adequate Sang Love MD Apr 12, 2018 14:37
--- NOTE | 2018-04-12 15:40 | Cardiac Electrophysiology PN ---
Assessment/Plan Assessment/Plan 1. Atrial fibrillation with rapid ventricular response. On metoprolol 50 mg b.i.d. Echocardiogram showed normal left ventricular systolic function was on 03/20/2018, ejection fraction of 60%. 2. Hypertension. Again, maximize beta-joe. 3. Inferolateral ischemia on the EKG, it could be due to atrial fibrillation. The patient does not have any chest pain. Troponin 0.33 and 0.46 likely due to renal failure 4. Diabetes, on insulin. 5. End-stage renal disease, on hemodialysis. Had left arm AV fistula creation 04/12/18 Subjective Subjective Comfortable in NAD. Remained in SR.Just underwent left arm AV fistula creation Objective Last 24 Hour Vital Signs Date Time Temp Pulse Resp B/P (MAP) Pulse Ox O2 Delivery O2 Flow Rate FiO2 04/12/18 14:45 55 17 138/69 100 Simple Mask 6 04/12/18 14:37 207.7 62 20 99 04/12/18 14:30 51 14 152/70 100 Simple Mask 6 04/12/18 14:25 54 17 148/73 100 Simple Mask 6 04/12/18 14:16 98.2 60 20 152/70 100 Simple Mask 6 98.2 04/12/18 08:00 97.6 59 18 147/76 99 97.6 04/12/18 04:00 55 04/12/18 04:00 98.5 62 17 144/74 98 98.5 04/12/18 00:00 56 04/12/18 00:00 98.4 57 18 139/84 98 98.4 04/11/18 21:00 68 142/68 04/11/18 20:49 68 18 Room Air 21 04/11/18 20:00 54 04/11/18 20:00 98.2 55 19 142/68 100 Room Air 98.2 04/11/18 16:00 98.1 56 18 157/74 99 Room Air 98.1 04/11/18 16:00 56 Intake and Output 04/11/18 04/12/18 19:00 07:00 Intake Total 390 ml 618.6 ml Output Total 350 ml Balance 40 ml 618.6 ml Intake Oral 390 ml 120 ml IV Total 498.6 ml Output Urine Total 350 ml Laboratory Tests Test 04/12/18 04:12 04/12/18 05:30 04/12/18 09:15 White Blood Count 6.6 K/UL (4.8-10.8) Red Blood Count 2.65 M/UL (4.20-5.40) L Hemoglobin 7.9 G/DL (12.0-16.0) L Hematocrit 23.7 % (37.0-47.0) L Mean Corpuscular Volume 90 FL (80-99) Mean Corpuscular Hemoglobin 29.9 PG (27.0-31.0) Mean Corpuscular Hemoglobin Concent 33.4 G/DL (32.0-36.0) Red Cell Distribution Width 13.1 % (11.6-14.8) Platelet Count 142 K/UL (150-450) L Mean Platelet Volume 7.0 FL (6.5-10.1) Neutrophils (%) (Auto) % (45.0-75.0) Lymphocytes (%) (Auto) % (20.0-45.0) Monocytes (%) (Auto) % (1.0-10.0) Eosinophils (%) (Auto) % (0.0-3.0) Basophils (%) (Auto) % (0.0-2.0) Sodium Level 137 MMOL/L (136-145) Potassium Level 3.6 MMOL/L (3.5-5.1) Chloride Level 100 MMOL/L (98-107) Carbon Dioxide Level 32 MMOL/L (21-32) Anion Gap 5 mmol/L (5-15) Blood Urea Nitrogen 59 mg/dL (7-18) H Creatinine 4.5 MG/DL (0.55-1.30) H Estimat Glomerular Filtration Rate 11.8 mL/min (>60) Glucose Level 119 MG/DL (74-106) H Calcium Level 8.3 MG/DL (8.5-10.1) L Troponin I 0.209 ng/mL (0.000-0.056) C-Reactive Protein, Quantitative 1.6 mg/dL (0.00-0.90) H Prothrombin Time 10.5 SEC (9.30-11.50) Prothromb Time International Ratio 1.0 (0.9-1.1) Activated Partial Thromboplast Time 25 SEC (23-33) Objective HEAD AND NECK: No JVD. LUNGS: Clear. CARDIOVASCULAR: Regular S1 and S2 with no gallop or murmur. The PermCath in the right chest. EXTREMITIES: No pitting edema.Left arm AV fistula Triston Franco MD Apr 12, 2018 15:40
--- NOTE | 2018-04-12 16:24 | Infectious Diseases Prog Note ---
Assessment/Plan Problems: (1) Urinary tract infection due to Proteus Assessment & Plan: and MSSA , will treat with vancomycin and ceftriaxon for 7 days (2) Acute on chronic renal failure Assessment & Plan: required HD , had left arm AV fistula today by vascular, continue HD as per renal service (3) Diabetic nephropathy Assessment & Plan: recommend tight glycemic control to keep blood glucose between 100-140 (4) ESRD (end stage renal disease) Assessment & Plan: started on HD as per renal Subjective Constitutional: Reports: no symptoms HEENT: Reports: no symptoms Respiratory: Reports: no symptoms Breasts: Reports: no symptoms Cardiovascular: Reports: no symptoms Gastrointestinal/Abdominal: Reports: no symptoms Genitourinary: Reports: no symptoms Neurologic: Reports: no symptoms Psychiatric: Reports: no symptoms Skin: Reports: no symptoms Endocrine: Reports: no symptoms Hematologic: Reports: no symptoms Musculoskeletal: Reports: no symptoms Allergies: Coded Allergies: PENICILLINS (Verified Allergy, Unknown, 11/10/09) Subjective she just came back from OR and had Left arm AV fistula created by vascular Objective Vital Signs Last 24 Hour Vital Signs Date Time Temp Pulse Resp B/P (MAP) Pulse Ox O2 Delivery O2 Flow Rate FiO2 04/12/18 15:30 57 17 159/71 98 Simple Mask 3 04/12/18 15:15 97.8 60 16 150/68 97 Simple Mask 3 97.8 04/12/18 15:00 58 14 140/66 98 Nasal Cannula 3 04/12/18 14:45 55 17 138/69 100 Simple Mask 6 04/12/18 14:37 207.7 62 20 99 04/12/18 14:30 51 14 152/70 100 Simple Mask 6 04/12/18 14:25 54 17 148/73 100 Simple Mask 6 04/12/18 14:16 98.2 60 20 152/70 100 Simple Mask 6 98.2 04/12/18 08:00 97.6 59 18 147/76 99 97.6 04/12/18 04:00 55 04/12/18 04:00 98.5 62 17 144/74 98 98.5 04/12/18 00:00 56 04/12/18 00:00 98.4 57 18 139/84 98 98.4 04/11/18 21:00 68 142/68 04/11/18 20:49 68 18 Room Air 21 04/11/18 20:00 54 04/11/18 20:00 98.2 55 19 142/68 100 Room Air 98.2 Height (Feet): 5 Height (Inches): 2.00 Weight (Pounds): 253 General Appearance: WD/WN, no acute distress HEENT: normocephalic, atraumatic, anicteric, mucous membranes moist, PERRL Respiratory/Chest: chest wall non-tender, normal breath sounds, no respiratory distress, no accessory muscle use, decreased breath sounds, crackles/rales Cardiovascular: normal peripheral pulses, normal rate, regular rhythm, no gallop/murmur, no JVD Abdomen: normal bowel sounds, soft, non tender, no organomegaly, non distended , no mass, no scars Extremities: no cyanosis, no clubbing Skin: no rash, no lesions, no ulcers Neurologic/Psychiatric: alert, responsive Laboratory Tests Test 04/12/18 04:12 04/12/18 05:30 04/12/18 09:15 White Blood Count 6.6 K/UL (4.8-10.8) Red Blood Count 2.65 M/UL (4.20-5.40) L Hemoglobin 7.9 G/DL (12.0-16.0) L Hematocrit 23.7 % (37.0-47.0) L Mean Corpuscular Volume 90 FL (80-99) Mean Corpuscular Hemoglobin 29.9 PG (27.0-31.0) Mean Corpuscular Hemoglobin Concent 33.4 G/DL (32.0-36.0) Red Cell Distribution Width 13.1 % (11.6-14.8) Platelet Count 142 K/UL (150-450) L Mean Platelet Volume 7.0 FL (6.5-10.1) Neutrophils (%) (Auto) % (45.0-75.0) Lymphocytes (%) (Auto) % (20.0-45.0) Monocytes (%) (Auto) % (1.0-10.0) Eosinophils (%) (Auto) % (0.0-3.0) Basophils (%) (Auto) % (0.0-2.0) Sodium Level 137 MMOL/L (136-145) Potassium Level 3.6 MMOL/L (3.5-5.1) Chloride Level 100 MMOL/L (98-107) Carbon Dioxide Level 32 MMOL/L (21-32) Anion Gap 5 mmol/L (5-15) Blood Urea Nitrogen 59 mg/dL (7-18) H Creatinine 4.5 MG/DL (0.55-1.30) H Estimat Glomerular Filtration Rate 11.8 mL/min (>60) Glucose Level 119 MG/DL (74-106) H Calcium Level 8.3 MG/DL (8.5-10.1) L Troponin I 0.209 ng/mL (0.000-0.056) C-Reactive Protein, Quantitative 1.6 mg/dL (0.00-0.90) H Prothrombin Time 10.5 SEC (9.30-11.50) Prothromb Time International Ratio 1.0 (0.9-1.1) Activated Partial Thromboplast Time 25 SEC (23-33) Current Medications Medications (Trade) Dose Ordered Sig/Jesus Route PRN Reason Start Time Stop Time Status Last Admin Dose Admin Acetaminophen (Tylenol) 650 mg Q4H PRN ORAL For Pain 04/08/18 21:45 05/08/18 21:44 Albuterol Sulfate (Proventil) 2.5 mg Q6H PRN HHN wheezing 04/08/18 21:45 04/13/18 21:44 Apixaban (Eliquis) 2.5 mg BID ORAL 04/11/18 09:00 05/11/18 08:59 04/11/18 16:55 Aspirin (ASA) 325 mg DAILY ORAL 04/11/18 09:00 05/11/18 08:59 04/12/18 16:13 Atorvastatin Calcium (Lipitor) 10 mg BEDTIME ORAL 04/09/18 21:00 05/09/18 20:59 04/11/18 20:46 Calcium Acetate (Phoslo) 667 mg TID ORAL 04/09/18 09:00 05/09/18 08:59 04/11/18 16:55 Ceftriaxone Sodium 1 gm/ Dextrose 55 ml @ 110 mls/hr Q24H IVPB 04/11/18 22:00 04/18/18 21:59 04/11/18 21:41 Chlorhexidine Gluconate (Cira-Hex 2%) 1 applic DAILY@2000 TOPIC 04/09/18 20:00 05/09/18 19:59 04/11/18 20:42 Dextrose (Dextrose 50%) 25 ml STAT PRN IV Hypoglycemia 04/08/18 21:45 05/08/18 21:44 Dextrose (Dextrose 50%) 50 ml STAT PRN IV Hypoglycemia 04/08/18 21:45 05/08/18 21:44 Diphenhydramine HCl (Benadryl) 25 mg Q15M PRN IVP Itching 04/12/18 12:45 Docusate Sodium (Colace) 100 mg TID ORAL 04/09/18 09:00 05/09/18 08:59 04/11/18 16:55 Epoetin Jose (Procrit (for non ESRD use)) 10,000 units SUN-SUN-SUN SUBQ 04/12/18 21:00 05/10/18 20:59 Fentanyl Citrate (Sublimaze 100 mcg/2 mL) 25 mcg Q10M PRN IV Moderate Pain (Pain Scale 4-6) 04/12/18 12:45 Gabapentin (Neurontin) 100 mg THREE TIMES A DAY ORAL 04/09/18 09:00 05/09/18 08:59 04/11/18 16:56 Hydralazine HCl (Apresoline) 25 mg Q4HR PRN ORAL bp over 160syst 04/08/18 23:15 05/08/18 23:14 Insulin Aspart (NovoLOG) BEFORE MEALS AND HS SUBQ 04/09/18 06:30 05/09/18 06:29 04/12/18 07:00 Lactobacillus Acidophilus (Culturelle) 1 tab DAILY ORAL 04/09/18 09:00 05/09/18 08:59 04/11/18 09:28 Lisinopril (Zestril) 5 mg DAILY ORAL 04/13/18 09:00 05/13/18 08:59 Metoprolol Tartrate (Lopressor) 25 mg EVERY 12 HOURS ORAL 04/12/18 21:00 05/09/18 08:59 Nitroglycerin (Ntg) 1 patch Q24H TDERMAL 04/11/18 09:00 05/11/18 08:59 04/11/18 09:29 Ondansetron HCl (Zofran) 4 mg Q1H PRN IVP Nausea & Vomiting 04/12/18 12:45 Pantoprazole (Protonix) 40 mg DAILY ORAL 04/09/18 09:00 05/09/18 08:59 04/11/18 09:28 Sodium Chloride 1,000 ml @ 10 mls/hr Q24H IV 04/12/18 12:08 04/12/18 18:00 Vancomycin HCl (Vanco rx to dose) 1 ea DAILY PRN MISC Per rx protocol 04/11/18 20:45 05/11/18 20:44 Vitamin B Complex/ Vit C/Folic Acid (Nephrovite) 1 tab DAILY ORAL 04/09/18 09:00 05/09/18 08:59 04/11/18 09:28 Vitamin D (Vitamin D) 1,000 intlu DAILY ORAL 04/09/18 09:00 05/09/18 08:59 04/11/18 09:28 Fide Herr M.D. Apr 12, 2018 16:24
[2018-04-12] MEDS: Lactobacillus-GG tablet ORAL SCH (16:28)
[2018-04-12] MEDS: Nephrovite tab (Rena-Vite) ORAL SCH (16:29)
[2018-04-12] MEDS: Vitamin D 1000 IU Tab ORAL SCH (16:31)
[2018-04-12] MEDS: HydrALAZINE 25mg tab ORAL PRN ×2 (17:09→21:15)
[2018-04-12] MEDS ORDERED: Epogen (for non ESRD use) SUBQ SCH (21:00)
[2018-04-12] MEDS ORDERED: Metoprolol 25mg tab ORAL SCH (21:00)
--- NOTE | 2018-04-12 21:00 | Consultation ---
DATE OF CONSULTATION: 04/11/2018 INFECTIOUS DISEASE CONSULTATION CONSULTING PHYSICIAN: Fide Herr M.D. REQUESTING PHYSICIAN: Danie Banegas M.D. REASON FOR CONSULTATION: Urinary tract infection with gram-negative rods and gram-positive cocci. Recommendation for antibiotics treatment in the patient, who is going on hemodialysis. HISTORY OF PRESENT ILLNESS: The patient is a 67-year-old female with past medical history of CVA with left-sided hemiparesis, hypertension, diabetes, chronic obstructive pulmonary disease, and chronic kidney disease, who is a resident of [facility], was sent to [facility] for worsening renal function. The patient has deferred initiation of hemodialysis in the past, but now she accepted that and she is in fact started on hemodialysis already. The patient had workup upon admission including urinalysis, which showed evidence of infection. Urine culture was sent and the result of which is growing gram-negative rods and gram-positive cocci. So, Infectious Disease consultation was requested for further evaluation and antibiotics treatment. As of note, the patient is a poor historian due to old CVA. History was mainly obtained from the medical record and her daughter at the bedside PAST MEDICAL HISTORY: Significant for CVA with left-sided hemiparesis, hypertension, diabetes, chronic obstructive pulmonary disease, anemia, and chronic kidney disease, now on hemodialysis. PAST SURGICAL HISTORY: Negative. MEDICATIONS: She is on fentanyl, metoprolol, lisinopril, epoetin, diphenhydramine, sodium chloride, nitroglycerin, aspirin, Eliquis, atorvastatin, chlorhexidine, gabapentin, vitamin D, docusate, sodium, pantoprazole, acidophilus, insulin aspart, hydralazine, and albuterol. ALLERGIES: She is allergic to penicillin. SOCIAL HISTORY: The patient currently lives at the [facility]. Denied using any drugs, tobacco, or alcohol. Has one daughter. REVIEW OF SYSTEMS: Unable to obtain. The patient is a poor historian. PHYSICAL EXAMINATION: VITAL SIGNS: Temperature 98.1, pulse 56, respirations 18, blood pressure 157/74, and saturation 99% on room air. GENERAL: An elderly female, lying in bed, lethargic, awake, alert, responsive, and not in acute distress. HEENT: Normocephalic and atraumatic. Pupils, reactive to light. Moist oral mucosa. NECK: Supple. No lymphadenopathy. CARDIOVASCULAR: Regular rate and rhythm. No murmur. LUNGS: She had diminished breathing sounds at the bases with crackles. ABDOMEN: Soft, nontender, obese, and nondistended. Normal bowel sounds. No hepatosplenomegaly or ascites. EXTREMITY: Trace edema. No cyanosis. LABORATORY DATA: Laboratories showed white count of 6.6, hemoglobin of 8, and platelet count of 143,000. BUN of 50 and creatinine of 3.9. Urinalysis showed +1 glucose, +3 protein, +3 leukocyte esterase, and 20 to 30 wbc. MICROBIOLOGY: Urine culture grew Proteus mirabilis and gram-positive cocci in cluster more than 100,000 colony. IMAGING: Chest x-ray showed low lung volumes. No pneumothorax. PermCath in good position. Head CT scan showed no evidence of acute intracranial hemorrhage, mass effect, or shift. Chronic bilateral infarcts, atrophy, and non-specific periventricular hypoattenuation suggestive of chronic ischemic microvascular changes. ASSESSMENT AND RECOMMENDATION: 1. Urinary tract infection due to Proteus mirabilis and gram-positive cocci. We will start vancomycin and ceftriaxone empiric coverage pending final urine culture. 2. Acute on chronic renal failure. Required hemodialysis. Continue hemodialysis as per Renal service. 3. Diabetic neuropathy. Recommend tight glycemic control to keep blood glucose between 100 on 140. 4. End-stage renal disease, started on hemodialysis as per Renal service. Thank you for the consult. Fide Herr M.D. DR: DONG JOB#: [id number] CC:
[2018-04-12] MEDS: Dyna-Hex 2% Top Sol 2oz TOPIC SCH (21:15)
[2018-04-12] MEDS: cefTRIAXone 1 GM in D5W 55 ML IVPB SCH (21:38)
[2018-04-13] VITALS: BP 134/66
[2018-04-13 04:00] VITALS: BP 132/73
[2018-04-13] MEDS: NovoLOG Insulin Flexpen SUBQ SCH ×3 (06:22→16:30)
[2018-04-13 06:29] LABS: BASOPHILS % (AUTO) 1.2 % (0.0-2.0); EOSINOPHILS % (AUTO) 3.5 % (0.0-3.0); HEMATOCRIT 24.8 % (37.0-47.0); HEMOGLOBIN 8.2 G/DL (12.0-16.0); LYMPHOCYTES % (AUTO) 12.6 % (20.0-45.0); MEAN CORPUSCULAR VOLUME 89 FL (80-99); NEUTROPHILS % (AUTO) 74.7 % (45.0-75.0); PLATELET COUNT 119 K/UL (150-450); RED BLOOD COUNT 2.77 M/UL (4.20-5.40); RED CELL DISTRIBUTION WIDTH 13.7 % (11.6-14.8); WHITE BLOOD COUNT 10.4 K/UL (4.8-10.8)
[2018-04-13 07:07] LABS: ALANINE AMINOTRANSFERASE 13 U/L (12-78); ALBUMIN 2.7 G/DL (3.4-5.0); ALBUMIN/GLOBULIN RATIO 0.9 (1.0-2.7); ALKALINE PHOSPHATASE 41 U/L (46-116); ANION GAP 5 mmol/L (5-15); ASPARTATE AMINO TRANSFERASE 20 U/L (15-37); BILIRUBIN,TOTAL 0.3 MG/DL (0.2-1.0); BLOOD UREA NITROGEN 59 mg/dL (7-18); CALCIUM 8.6 MG/DL (8.5-10.1); CARBON DIOXIDE 30 MMOL/L (21-32); CHLORIDE 105 MMOL/L (98-107); CREATININE 4.2 MG/DL (0.55-1.30); PHOSPHORUS 4.6 MG/DL (2.5-4.9); POTASSIUM 4.2 MMOL/L (3.5-5.1); SODIUM 140 MMOL/L (136-145)
[2018-04-13 08:00] VITALS: BP 132/73
[2018-04-13] MEDS ORDERED: Metoprolol 25mg tab ORAL SCH (09:00)
[2018-04-13] MEDS ORDERED: Lisinopril 10mg tab ORAL SCH (09:00)
[2018-04-13] MEDS: Eliquis 2.5mg tablet ORAL SCH (10:15)
[2018-04-13] MEDS: Vitamin D 1000 IU Tab ORAL SCH (10:16)
[2018-04-13] MEDS: Nephrovite tab (Rena-Vite) ORAL SCH (10:16)
[2018-04-13] MEDS: Calcium Acetate 667mg Tab ORAL SCH ×2 (10:16→14:01)
[2018-04-13] MEDS: Docusate 100mg cap ORAL SCH ×2 (10:16→14:01)
--- NOTE | 2018-04-13 10:16 | 48 Hour Post Anesthesia Eval ---
Post Anesthesia Evaluation Procedure: L arm creation of A-V fistula Date of Evaluation: Apr 13, 2018 Time of Evaluation: 10:14 Blood Pressure Systolic: 132 0: 73 Pulse Rate: 83 Respiratory Rate: 20 Temperature (Fahrenheit): 98.2 O2 Sat by Pulse Oximetry: 99 Airway: patent Nausea: No Vomiting: No Pain Intensity: 1 Hydration Status: adequate Cardiopulmonary Status: Stable Mental Status/LOC: patient returned to baseline Follow-up Care/Observations: 0 Post-Anesthesia Complications: 0 Follow-up care needed: N/A Dickson Chaudhry MD Apr 13, 2018 10:16
[2018-04-13] MEDS: Lactobacillus-GG tablet ORAL SCH (10:17)
[2018-04-13] MEDS: Nitroglycerin Patch 0.4mg TDERMAL SCH (10:18)
--- NOTE | 2018-04-13 10:21 | Nephrology Progress Note ---
Assessment/Plan Problem List: (1) ESRD (end stage renal disease) (2) Diabetic nephropathy (3) Anemia (4) HTN (hypertension) (5) Elevated troponin I level Assessment patient dialysed 04/11 and & developed at fib Renal failure, likely chronic, and ESRD need HD on admission last Cr 5.4 K 5.8 CrCl 6 Diabetic Nephropathy / Proteinuria UTI Sever Anemia / symptomatic HTN OOC CVA left weakness Plan PO K supplement as needed Has access- dialysed 04/12 OP dialysis placement hep panel ordered a Hep panel from 03/21 in chart / EMR Subjective ROS Limited/Unobtainable: No Constitutional: Reports: malaise Objective Objective Last 24 Hour Vital Signs Date Time Temp Pulse Resp B/P (MAP) Pulse Ox O2 Delivery O2 Flow Rate FiO2 04/13/18 10:18 132/73 04/13/18 10:17 132/73 04/13/18 10:16 83 132/73 04/13/18 10:16 208.8 20 99 04/13/18 08:00 98.2 83 20 132/73 (92) 99 98.2 04/13/18 07:22 82 18 Nasal Cannula 2.0 28 04/13/18 07:22 Nasal Cannula 2.0 28 04/13/18 04:00 98.5 83 20 132/73 (92) 99 98.5 04/13/18 04:00 105 04/13/18 00:00 98.9 91 19 134/66 (88) 99 98.9 04/13/18 00:00 102 04/12/18 21:15 66 213/94 04/12/18 21:15 213/94 04/12/18 21:00 Nasal Cannula 2.0 04/12/18 20:45 Nasal Cannula 2.0 04/12/18 20:45 98.7 66 16 213/94 (133) 98.7 04/12/18 20:18 Nasal Cannula 2.0 28 04/12/18 20:17 77 18 Nasal Cannula 2.0 28 04/12/18 20:00 72 04/12/18 20:00 98.6 74 20 185/77 (113) 99 98.6 04/12/18 17:09 187/94 04/12/18 17:00 98.4 59 16 192/99 (130) 98 98.4 04/12/18 17:00 Nasal Cannula 2.0 04/12/18 17:00 97.4 59 16 192/99 (130) 97.4 04/12/18 16:00 52 04/12/18 15:30 57 17 159/71 98 Simple Mask 3 04/12/18 15:15 97.8 60 16 150/68 97 Simple Mask 3 97.8 04/12/18 15:00 58 14 140/66 98 Nasal Cannula 3 04/12/18 14:45 55 17 138/69 100 Simple Mask 6 04/12/18 14:37 207.7 62 20 99 04/12/18 14:30 51 14 152/70 100 Simple Mask 6 04/12/18 14:25 54 17 148/73 100 Simple Mask 6 04/12/18 14:16 98.2 60 20 152/70 100 Simple Mask 6 98.2 Intake and Output 04/12/18 04/13/18 19:00 07:00 Intake Total 25 ml 55 ml Output Total 200 ml 0 ml Balance -175 ml 55 ml IV Total 25 ml 55 ml Output Urine Total 200 ml Hemodialysis UF 0 ml Current Medications Medications (Trade) Dose Ordered Sig/Jesus Route PRN Reason Start Time Stop Time Status Last Admin Dose Admin Acetaminophen (Tylenol) 650 mg Q4H PRN ORAL For Pain 04/08/18 21:45 05/08/18 21:44 Albuterol Sulfate (Proventil) 2.5 mg Q6H PRN HHN wheezing 04/08/18 21:45 04/13/18 21:44 Apixaban (Eliquis) 2.5 mg BID ORAL 04/11/18 09:00 05/11/18 08:59 04/13/18 10:15 Aspirin (ASA) 325 mg DAILY ORAL 04/11/18 09:00 05/11/18 08:59 04/13/18 10:15 Atorvastatin Calcium (Lipitor) 10 mg BEDTIME ORAL 04/09/18 21:00 05/09/18 20:59 04/12/18 21:15 Calcium Acetate (Phoslo) 667 mg TID ORAL 04/09/18 09:00 05/09/18 08:59 04/13/18 10:16 Ceftriaxone Sodium 1 gm/ Dextrose 55 ml @ 110 mls/hr Q24H IVPB 04/11/18 22:00 04/18/18 21:59 7/6/18 21:38 Chlorhexidine Gluconate (Cira-Hex 2%) 1 applic DAILY@2000 TOPIC 04/09/18 20:00 05/09/18 19:59 04/12/18 21:15 Dextrose (Dextrose 50%) 25 ml STAT PRN IV Hypoglycemia 04/08/18 21:45 05/08/18 21:44 Dextrose (Dextrose 50%) 50 ml STAT PRN IV Hypoglycemia 04/08/18 21:45 05/08/18 21:44 Diphenhydramine HCl (Benadryl) 25 mg Q15M PRN IVP Itching 04/12/18 12:45 Docusate Sodium (Colace) 100 mg TID ORAL 04/09/18 09:00 05/09/18 08:59 04/13/18 10:16 Epoetin Jose (Procrit (for non ESRD use)) 10,000 units SUN-SUN-SUN SUBQ 04/12/18 21:00 05/10/18 20:59 04/12/18 21:19 Fentanyl Citrate (Sublimaze 100 mcg/2 mL) 25 mcg Q10M PRN IV Moderate Pain (Pain Scale 4-6) 04/12/18 12:45 Gabapentin (Neurontin) 100 mg THREE TIMES A DAY ORAL 04/09/18 09:00 05/09/18 08:59 04/13/18 10:17 Hydralazine HCl (Apresoline) 25 mg Q4HR PRN ORAL bp over 160syst 04/08/18 23:15 05/08/18 23:14 04/12/18 21:15 Insulin Aspart (NovoLOG) BEFORE MEALS AND HS SUBQ 04/09/18 06:30 05/09/18 06:29 04/12/18 21:18 Lactobacillus Acidophilus (Culturelle) 1 tab DAILY ORAL 04/09/18 09:00 05/09/18 08:59 04/13/18 10:17 Lisinopril (Zestril) 5 mg DAILY ORAL 04/13/18 09:00 05/13/18 08:59 04/13/18 10:17 Metoprolol Tartrate (Lopressor) 50 mg EVERY 12 HOURS ORAL 04/13/18 09:00 05/13/18 08:59 04/13/18 10:16 Nitroglycerin (Ntg) 1 patch Q24H TDERMAL 04/11/18 09:00 05/11/18 08:59 04/13/18 10:18 Ondansetron HCl (Zofran) 4 mg Q1H PRN IVP Nausea & Vomiting 04/12/18 12:45 Pantoprazole (Protonix) 40 mg DAILY ORAL 04/09/18 09:00 05/09/18 08:59 04/13/18 10:17 Vancomycin HCl (Vanco rx to dose) 1 ea DAILY PRN MISC Per rx protocol 04/11/18 20:45 05/11/18 20:44 Vitamin B Complex/ Vit C/Folic Acid (Nephrovite) 1 tab DAILY ORAL 04/09/18 09:00 05/09/18 08:59 04/13/18 10:16 Vitamin D (Vitamin D) 1,000 intlu DAILY ORAL 04/09/18 09:00 05/09/18 08:59 04/13/18 10:16 Laboratory Tests 04/13/18 06:15: White Blood Count 10.4#, Red Blood Count 2.77L, Hemoglobin 8.2L, Hematocrit 24.8L, Mean Corpuscular Volume 89, Mean Corpuscular Hemoglobin 29.6, Mean Corpuscular Hemoglobin Concent 33.2, Red Cell Distribution Width 13.7, Platelet Count 119L, Mean Platelet Volume 7.2, Neutrophils (%) (Auto) 74.7, Lymphocytes ( %) (Auto) 12.6L, Monocytes (%) (Auto) 8.0, Eosinophils (%) (Auto) 3.5H, Basophils (%) (Auto) 1.2, Sodium Level 140, Potassium Level 4.2, Chloride Level 105, Carbon Dioxide Level 30, Anion Gap 5, Blood Urea Nitrogen 59H, Creatinine 4.2H, Estimat Glomerular Filtration Rate 12.7, Glucose Level 91, Uric Acid 5.3, Calcium Level 8.6, Phosphorus Level 4.6, Magnesium Level 2.2, Total Bilirubin 0.3, Aspartate Amino Transf (AST/SGOT) 20, Alanine Aminotransferase (ALT/SGPT) 13, Alkaline Phosphatase 41L, Troponin I 0.112H, Total Protein 5.6L, Albumin 2.7L, Globulin 2.9, Albumin/Globulin Ratio 0.9L Height (Feet): 5 Height (Inches): 2.00 Weight (Pounds): 254 General Appearance: no apparent distress Cardiovascular: normal rate Respiratory/Chest: decreased breath sounds Abdomen: soft Objective no change GARIMA OLIVEROS Apr 13, 2018 10:21
--- NOTE | 2018-04-13 11:13 | General Progress Note ---
Assessment/Plan Assessment/Plan S: I am ok O: appears comfortable. Denies pain or sob PHYSICAL EXAMINATION: HEAD AND NECK: Atraumatic and normocephalic. Positive for the right-sided hemiparesis. CHEST: Clear to auscultation. No wheezing. No crackles. HEART: S1 and S2. Regular rate and rhythm. Negative for S3. Positive for questionable cardiac murmurs. ABDOMEN: Obese and soft. Bowel sounds normal. No gross organomegaly. NEUROLOGIC: The patient is awake, alert and oriented x3. Positive for slurred speech. MUSCULOSKELETAL: Positive for the left-sided hemiparesis, more prominent in the left upper extremity. Right Jugular Permcath in place Medication : reviewed and reconciled ASSESSMENT: 1. ESRD ( accepting to proceed with HD) 2. Diabetes type 2. 3. Hypertension, uncontrolled. 5. Cerebrovascular accident with left-sided hemiparesis. 6. Gastrointestinal and deep vein thrombosis prophylaxis. 7. Iron-deficiency anemia. 8. GI DVT prophylaxia 9. Abnormal Troponin 10 . PAfibrillation, not a candidate for shelter anticoagulation 11. Acute on chronic Anemia PLAN OF CARE: Resume ATC with [facility], will monitor Hbg Ok to followup as outpatient IV antibiotic for additional 5 Days HD protocol per Nephro Subjective Allergies: Coded Allergies: PENICILLINS (Verified Allergy, Unknown, 11/10/09) Objective Last 24 Hour Vital Signs Date Time Temp Pulse Resp B/P (MAP) Pulse Ox O2 Delivery O2 Flow Rate FiO2 04/13/18 10:18 132/73 04/13/18 10:17 132/73 04/13/18 10:16 83 132/73 04/13/18 10:16 208.8 20 99 04/13/18 08:00 132 04/13/18 08:00 98.2 83 20 132/73 (92) 99 98.2 04/13/18 07:22 82 18 Nasal Cannula 2.0 28 04/13/18 07:22 Nasal Cannula 2.0 28 04/13/18 04:00 98.5 83 20 132/73 (92) 99 98.5 04/13/18 04:00 105 04/13/18 00:00 98.9 91 19 134/66 (88) 99 98.9 04/13/18 00:00 102 04/12/18 21:15 66 213/94 04/12/18 21:15 213/94 7/6/18 21:00 Nasal Cannula 2.0 04/12/18 20:45 Nasal Cannula 2.0 04/12/18 20:45 98.7 66 16 213/94 (133) 98.7 04/12/18 20:18 Nasal Cannula 2.0 28 04/12/18 20:17 77 18 Nasal Cannula 2.0 28 04/12/18 20:00 72 04/12/18 20:00 98.6 74 20 185/77 (113) 99 98.6 04/12/18 17:09 187/94 04/12/18 17:00 98.4 59 16 192/99 (130) 98 98.4 04/12/18 17:00 Nasal Cannula 2.0 04/12/18 17:00 97.4 59 16 192/99 (130) 97.4 04/12/18 16:00 52 04/12/18 15:30 57 17 159/71 98 Simple Mask 3 04/12/18 15:15 97.8 60 16 150/68 97 Simple Mask 3 97.8 04/12/18 15:00 58 14 140/66 98 Nasal Cannula 3 04/12/18 14:45 55 17 138/69 100 Simple Mask 6 04/12/18 14:37 207.7 62 20 99 04/12/18 14:30 51 14 152/70 100 Simple Mask 6 04/12/18 14:25 54 17 148/73 100 Simple Mask 6 04/12/18 14:16 98.2 60 20 152/70 100 Simple Mask 6 98.2 Intake and Output 04/12/18 04/13/18 19:00 07:00 Intake Total 25 ml 55 ml Output Total 200 ml 0 ml Balance -175 ml 55 ml IV Total 25 ml 55 ml Output Urine Total 200 ml Hemodialysis UF 0 ml Laboratory Tests 04/13/18 06:15: White Blood Count 10.4#, Red Blood Count 2.77L, Hemoglobin 8.2L, Hematocrit 24.8L, Mean Corpuscular Volume 89, Mean Corpuscular Hemoglobin 29.6, Mean Corpuscular Hemoglobin Concent 33.2, Red Cell Distribution Width 13.7, Platelet Count 119L, Mean Platelet Volume 7.2, Neutrophils (%) (Auto) 74.7, Lymphocytes ( %) (Auto) 12.6L, Monocytes (%) (Auto) 8.0, Eosinophils (%) (Auto) 3.5H, Basophils (%) (Auto) 1.2, Sodium Level 140, Potassium Level 4.2, Chloride Level 105, Carbon Dioxide Level 30, Anion Gap 5, Blood Urea Nitrogen 59H, Creatinine 4.2H, Estimat Glomerular Filtration Rate 12.7, Glucose Level 91, Uric Acid 5.3, Calcium Level 8.6, Phosphorus Level 4.6, Magnesium Level 2.2, Total Bilirubin 0.3, Aspartate Amino Transf (AST/SGOT) 20, Alanine Aminotransferase (ALT/SGPT) 13, Alkaline Phosphatase 41L, Troponin I 0.112H, Total Protein 5.6L, Albumin 2.7L, Globulin 2.9, Albumin/Globulin Ratio 0.9L Height (Feet): 5 Height (Inches): 2.00 Weight (Pounds): 254 Danie Banegas MD Apr 13, 2018 11:13
[2018-04-13] MEDS ORDERED: Metoprolol Tartrate 50mg tab ORAL SCH (11:45)
[2018-04-13 12:00] VITALS: BP 107/58
--- NOTE | 2018-04-13 15:22 | Cardiac Electrophysiology PN ---
Assessment/Plan Assessment/Plan 1. Atrial fibrillation with rapid ventricular response. Increase metoprolol to 100 mg b.i.d. Echocardiogram showed normal left ventricular systolic function was on 2017, ejection fraction of 60%. 2. Hypertension. On Lopressor 100 bid and Lisinopril 3. Inferolateral ischemia on the EKG, it could be due to atrial fibrillation. The patient does not have any chest pain. Troponin 0.33 and 0.46 likely due to renal failure 4. Diabetes, on insulin. 5. End-stage renal disease, on hemodialysis. Had left arm AV fistula creation 04/12/18 Subjective Subjective Comfortable in NAD. Had atrial fib with RVR but converted to SB 50s.Had left arm AV fistula creation Objective Last 24 Hour Vital Signs Date Time Temp Pulse Resp B/P (MAP) Pulse Ox O2 Delivery O2 Flow Rate FiO2 04/13/18 12:29 109 107/58 04/13/18 12:00 97.7 109 19 107/58 (74) 97 97.7 04/13/18 10:18 132/73 04/13/18 10:17 132/73 04/13/18 10:16 83 132/73 04/13/18 10:16 208.8 20 99 04/13/18 09:00 Nasal Cannula 2.0 04/13/18 08:00 132 04/13/18 08:00 98.2 83 20 132/73 (92) 99 98.2 04/13/18 07:22 82 18 Nasal Cannula 2.0 28 04/13/18 07:22 Nasal Cannula 2.0 28 04/13/18 04:00 98.5 83 20 132/73 (92) 99 98.5 04/13/18 04:00 105 04/13/18 00:00 98.9 91 19 134/66 (88) 99 98.9 04/13/18 00:00 102 04/12/18 21:15 66 213/94 04/12/18 21:15 213/94 04/12/18 21:00 Nasal Cannula 2.0 04/12/18 20:45 Nasal Cannula 2.0 04/12/18 20:45 98.7 66 16 213/94 (133) 98.7 04/12/18 20:18 Nasal Cannula 2.0 28 04/12/18 20:17 77 18 Nasal Cannula 2.0 28 04/12/18 20:00 72 04/12/18 20:00 98.6 74 20 185/77 (113) 99 98.6 04/12/18 17:09 187/94 04/12/18 17:00 98.4 59 16 192/99 (130) 98 98.4 04/12/18 17:00 Nasal Cannula 2.0 04/12/18 17:00 97.4 59 16 192/99 (130) 97.4 04/12/18 16:00 52 04/12/18 15:30 57 17 159/71 98 Simple Mask 3 Intake and Output 04/12/18 04/13/18 19:00 07:00 Intake Total 25 ml 55 ml Output Total 200 ml 0 ml Balance -175 ml 55 ml IV Total 25 ml 55 ml Output Urine Total 200 ml Hemodialysis UF 0 ml Laboratory Tests Test 04/13/18 06:15 White Blood Count 10.4 K/UL (4.8-10.8) # Red Blood Count 2.77 M/UL (4.20-5.40) L Hemoglobin 8.2 G/DL (12.0-16.0) L Hematocrit 24.8 % (37.0-47.0) L Mean Corpuscular Volume 89 FL (80-99) Mean Corpuscular Hemoglobin 29.6 PG (27.0-31.0) Mean Corpuscular Hemoglobin Concent 33.2 G/DL (32.0-36.0) Red Cell Distribution Width 13.7 % (11.6-14.8) Platelet Count 119 K/UL (150-450) L Mean Platelet Volume 7.2 FL (6.5-10.1) Neutrophils (%) (Auto) 74.7 % (45.0-75.0) Lymphocytes (%) (Auto) 12.6 % (20.0-45.0) L Monocytes (%) (Auto) 8.0 % (1.0-10.0) Eosinophils (%) (Auto) 3.5 % (0.0-3.0) H Basophils (%) (Auto) 1.2 % (0.0-2.0) Sodium Level 140 MMOL/L (136-145) Potassium Level 4.2 MMOL/L (3.5-5.1) Chloride Level 105 MMOL/L (98-107) Carbon Dioxide Level 30 MMOL/L (21-32) Anion Gap 5 mmol/L (5-15) Blood Urea Nitrogen 59 mg/dL (7-18) H Creatinine 4.2 MG/DL (0.55-1.30) H Estimat Glomerular Filtration Rate 12.7 mL/min (>60) Glucose Level 91 MG/DL (74-106) Uric Acid 5.3 MG/DL (2.6-7.2) Calcium Level 8.6 MG/DL (8.5-10.1) Phosphorus Level 4.6 MG/DL (2.5-4.9) Magnesium Level 2.2 MG/DL (1.8-2.4) Total Bilirubin 0.3 MG/DL (0.2-1.0) Aspartate Amino Transf (AST/SGOT) 20 U/L (15-37) Alanine Aminotransferase (ALT/SGPT) 13 U/L (12-78) Alkaline Phosphatase 41 U/L (46-116) L Troponin I 0.112 ng/mL (0.000-0.056) Total Protein 5.6 G/DL (6.4-8.2) L Albumin 2.7 G/DL (3.4-5.0) L Globulin 2.9 g/dL Albumin/Globulin Ratio 0.9 (1.0-2.7) L Objective HEAD AND NECK: No JVD. LUNGS: Clear. CARDIOVASCULAR: Regular S1 and S2 with no gallop or murmur. The PermCath in the right chest. EXTREMITIES: No pitting edema.Left arm AV fistula Triston Franco MD Apr 13, 2018 15:22
--- NOTE | 2018-04-13 15:23 | Infectious Diseases Prog Note ---
Assessment/Plan Problems: (1) Urinary tract infection due to Proteus Assessment & Plan: and MSSA , will treat with vancomycin and ceftriaxon for 7 days. EOT 04/17/18 (2) Acute on chronic renal failure Assessment & Plan: required HD , had left arm AV fistula today by vascular, continue HD as per renal service (3) Diabetic nephropathy Assessment & Plan: recommend tight glycemic control to keep blood glucose between 100-140 (4) ESRD (end stage renal disease) Assessment & Plan: started on HD as per renal Subjective Constitutional: Reports: no symptoms HEENT: Reports: no symptoms Respiratory: Reports: no symptoms Breasts: Reports: no symptoms Cardiovascular: Reports: no symptoms Gastrointestinal/Abdominal: Reports: no symptoms Genitourinary: Reports: no symptoms Neurologic: Reports: no symptoms Psychiatric: Reports: no symptoms Skin: Reports: no symptoms Endocrine: Reports: no symptoms Hematologic: Reports: no symptoms Musculoskeletal: Reports: no symptoms Allergies: Coded Allergies: PENICILLINS (Verified Allergy, Unknown, 11/10/09) Subjective she just came back from OR and had Left arm AV fistula created by vascular Objective Vital Signs Last 24 Hour Vital Signs Date Time Temp Pulse Resp B/P (MAP) Pulse Ox O2 Delivery O2 Flow Rate FiO2 04/13/18 12:29 109 107/58 04/13/18 12:00 97.7 109 19 107/58 (74) 97 97.7 04/13/18 10:18 132/73 04/13/18 10:17 132/73 04/13/18 10:16 83 132/73 04/13/18 10:16 208.8 20 99 04/13/18 09:00 Nasal Cannula 2.0 04/13/18 08:00 132 04/13/18 08:00 98.2 83 20 132/73 (92) 99 98.2 04/13/18 07:22 82 18 Nasal Cannula 2.0 28 04/13/18 07:22 Nasal Cannula 2.0 28 04/13/18 04:00 98.5 83 20 132/73 (92) 99 98.5 04/13/18 04:00 105 04/13/18 00:00 98.9 91 19 134/66 (88) 99 98.9 04/13/18 00:00 102 04/12/18 21:15 66 213/94 04/12/18 21:15 213/94 04/12/18 21:00 Nasal Cannula 2.0 04/12/18 20:45 Nasal Cannula 2.0 04/12/18 20:45 98.7 66 16 213/94 (133) 98.7 04/12/18 20:18 Nasal Cannula 2.0 28 04/12/18 20:17 77 18 Nasal Cannula 2.0 28 04/12/18 20:00 72 04/12/18 20:00 98.6 74 20 185/77 (113) 99 98.6 04/12/18 17:09 187/94 04/12/18 17:00 98.4 59 16 192/99 (130) 98 98.4 04/12/18 17:00 Nasal Cannula 2.0 04/12/18 17:00 97.4 59 16 192/99 (130) 97.4 04/12/18 16:00 52 04/12/18 15:30 57 17 159/71 98 Simple Mask 3 Height (Feet): 5 Height (Inches): 2.00 Weight (Pounds): 254 General Appearance: WD/WN, no acute distress HEENT: normocephalic, atraumatic, anicteric, mucous membranes moist, PERRL, EOMI, pharynx normal, supple, no JVD Respiratory/Chest: chest wall non-tender, lungs clear, normal breath sounds, no respiratory distress, no accessory muscle use Cardiovascular: normal peripheral pulses, normal rate, regular rhythm, no gallop/murmur, no JVD Abdomen: normal bowel sounds, soft, non tender, no organomegaly, non distended , no mass, no scars Genitourinary: normal external genitalia Extremities: no cyanosis, no clubbing, other - left arm surgical wound for AV fistula covered with dressing s Skin: no rash, no lesions, no ulcers Neurologic/Psychiatric: alert, responsive Laboratory Tests Test 04/13/18 06:15 White Blood Count 10.4 K/UL (4.8-10.8) # Red Blood Count 2.77 M/UL (4.20-5.40) L Hemoglobin 8.2 G/DL (12.0-16.0) L Hematocrit 24.8 % (37.0-47.0) L Mean Corpuscular Volume 89 FL (80-99) Mean Corpuscular Hemoglobin 29.6 PG (27.0-31.0) Mean Corpuscular Hemoglobin Concent 33.2 G/DL (32.0-36.0) Red Cell Distribution Width 13.7 % (11.6-14.8) Platelet Count 119 K/UL (150-450) L Mean Platelet Volume 7.2 FL (6.5-10.1) Neutrophils (%) (Auto) 74.7 % (45.0-75.0) Lymphocytes (%) (Auto) 12.6 % (20.0-45.0) L Monocytes (%) (Auto) 8.0 % (1.0-10.0) Eosinophils (%) (Auto) 3.5 % (0.0-3.0) H Basophils (%) (Auto) 1.2 % (0.0-2.0) Sodium Level 140 MMOL/L (136-145) Potassium Level 4.2 MMOL/L (3.5-5.1) Chloride Level 105 MMOL/L (98-107) Carbon Dioxide Level 30 MMOL/L (21-32) Anion Gap 5 mmol/L (5-15) Blood Urea Nitrogen 59 mg/dL (7-18) H Creatinine 4.2 MG/DL (0.55-1.30) H Estimat Glomerular Filtration Rate 12.7 mL/min (>60) Glucose Level 91 MG/DL (74-106) Uric Acid 5.3 MG/DL (2.6-7.2) Calcium Level 8.6 MG/DL (8.5-10.1) Phosphorus Level 4.6 MG/DL (2.5-4.9) Magnesium Level 2.2 MG/DL (1.8-2.4) Total Bilirubin 0.3 MG/DL (0.2-1.0) Aspartate Amino Transf (AST/SGOT) 20 U/L (15-37) Alanine Aminotransferase (ALT/SGPT) 13 U/L (12-78) Alkaline Phosphatase 41 U/L (46-116) L Troponin I 0.112 ng/mL (0.000-0.056) Total Protein 5.6 G/DL (6.4-8.2) L Albumin 2.7 G/DL (3.4-5.0) L Globulin 2.9 g/dL Albumin/Globulin Ratio 0.9 (1.0-2.7) L Current Medications Medications (Trade) Dose Ordered Sig/Jesus Route PRN Reason Start Time Stop Time Status Last Admin Dose Admin Acetaminophen (Tylenol) 650 mg Q4H PRN ORAL For Pain 04/08/18 21:45 05/08/18 21:44 Albuterol Sulfate (Proventil) 2.5 mg Q6H PRN HHN wheezing 04/08/18 21:45 04/13/18 21:44 Apixaban (Eliquis) 2.5 mg BID ORAL 04/11/18 09:00 05/11/18 08:59 04/13/18 10:15 Aspirin (ASA) 325 mg DAILY ORAL 04/11/18 09:00 05/11/18 08:59 04/13/18 10:15 Atorvastatin Calcium (Lipitor) 10 mg BEDTIME ORAL 04/09/18 21:00 05/09/18 20:59 04/12/18 21:15 Calcium Acetate (Phoslo) 667 mg TID ORAL 04/09/18 09:00 05/09/18 08:59 04/13/18 14:01 Ceftriaxone Sodium 1 gm/ Dextrose 55 ml @ 110 mls/hr Q24H IVPB 04/11/18 22:00 04/18/18 21:59 04/12/18 21:38 Chlorhexidine Gluconate (Cira-Hex 2%) 1 applic DAILY@2000 TOPIC 04/09/18 20:00 05/09/18 19:59 04/12/18 21:15 Dextrose (Dextrose 50%) 25 ml STAT PRN IV Hypoglycemia 04/08/18 21:45 05/08/18 21:44 Dextrose (Dextrose 50%) 50 ml STAT PRN IV Hypoglycemia 04/08/18 21:45 05/08/18 21:44 Docusate Sodium (Colace) 100 mg TID ORAL 04/09/18 09:00 05/09/18 08:59 04/13/18 14:01 Epoetin Jose (Procrit (for non ESRD use)) 10,000 units SUN-SUN-SUN SUBQ 04/12/18 21:00 05/10/18 20:59 04/12/18 21:19 Gabapentin (Neurontin) 100 mg THREE TIMES A DAY ORAL 04/09/18 09:00 05/09/18 08:59 04/13/18 14:01 Hydralazine HCl (Apresoline) 25 mg Q4HR PRN ORAL bp over 160syst 04/08/18 23:15 05/08/18 23:14 04/12/18 21:15 Insulin Aspart (NovoLOG) BEFORE MEALS AND HS SUBQ 04/09/18 06:30 05/09/18 06:29 04/13/18 12:32 Lactobacillus Acidophilus (Culturelle) 1 tab DAILY ORAL 04/09/18 09:00 05/09/18 08:59 04/13/18 10:17 Lisinopril (Zestril) 5 mg DAILY ORAL 04/13/18 09:00 05/13/18 08:59 04/13/18 10:17 Metoprolol Tartrate (Lopressor) 100 mg EVERY 12 HOURS ORAL 04/13/18 21:00 05/13/18 08:59 Nitroglycerin (Ntg) 1 patch Q24H TDERMAL 04/11/18 09:00 05/11/18 08:59 04/13/18 10:18 Pantoprazole (Protonix) 40 mg DAILY ORAL 04/09/18 09:00 05/09/18 08:59 04/13/18 10:17 Vancomycin HCl (Vanco rx to dose) 1 ea DAILY PRN MISC Per rx protocol 04/11/18 20:45 05/11/18 20:44 Vitamin B Complex/ Vit C/Folic Acid (Nephrovite) 1 tab DAILY ORAL 04/09/18 09:00 05/09/18 08:59 04/13/18 10:16 Vitamin D (Vitamin D) 1,000 intlu DAILY ORAL 04/09/18 09:00 05/09/18 08:59 04/13/18 10:16 Fide Herr M.D. Apr 13, 2018 15:23
[2018-04-13 16:00] VITALS: BP 111/45
--- NOTE | 2018-04-13 23:18 | Psych Consult Progress Note ---
Psych Consult Progress Note Vital Signs Last 24 Hour Vital Signs Date Time Temp Pulse Resp B/P (MAP) Pulse Ox O2 Delivery O2 Flow Rate FiO2 04/13/18 23:13 Room Air 04/13/18 23:12 68 18 Room Air 04/13/18 16:00 54 04/13/18 16:00 98.3 56 20 111/45 (67) 97 98.3 04/13/18 12:29 109 107/58 04/13/18 12:00 97.7 109 19 107/58 (74) 97 97.7 04/13/18 12:00 69 04/13/18 10:18 132/73 04/13/18 10:17 132/73 04/13/18 10:16 83 132/73 04/13/18 10:16 208.8 20 99 04/13/18 09:00 Nasal Cannula 2.0 04/13/18 08:00 132 04/13/18 08:00 98.2 83 20 132/73 (92) 99 98.2 04/13/18 07:22 82 18 Nasal Cannula 2.0 28 04/13/18 07:22 Nasal Cannula 2.0 28 04/13/18 04:00 98.5 83 20 132/73 (92) 99 98.5 04/13/18 04:00 105 04/13/18 00:00 98.9 91 19 134/66 (88) 99 98.9 04/13/18 00:00 102 Labs Laboratory Tests Test 04/13/18 06:15 04/13/18 16:26 White Blood Count 10.4 K/UL (4.8-10.8) # Red Blood Count 2.77 M/UL (4.20-5.40) L Hemoglobin 8.2 G/DL (12.0-16.0) L Hematocrit 24.8 % (37.0-47.0) L Mean Corpuscular Volume 89 FL (80-99) Mean Corpuscular Hemoglobin 29.6 PG (27.0-31.0) Mean Corpuscular Hemoglobin Concent 33.2 G/DL (32.0-36.0) Red Cell Distribution Width 13.7 % (11.6-14.8) Platelet Count 119 K/UL (150-450) L Mean Platelet Volume 7.2 FL (6.5-10.1) Neutrophils (%) (Auto) 74.7 % (45.0-75.0) Lymphocytes (%) (Auto) 12.6 % (20.0-45.0) L Monocytes (%) (Auto) 8.0 % (1.0-10.0) Eosinophils (%) (Auto) 3.5 % (0.0-3.0) H Basophils (%) (Auto) 1.2 % (0.0-2.0) Sodium Level 140 MMOL/L (136-145) Potassium Level 4.2 MMOL/L (3.5-5.1) Chloride Level 105 MMOL/L (98-107) Carbon Dioxide Level 30 MMOL/L (21-32) Anion Gap 5 mmol/L (5-15) Blood Urea Nitrogen 59 mg/dL (7-18) H Creatinine 4.2 MG/DL (0.55-1.30) H Estimat Glomerular Filtration Rate 12.7 mL/min (>60) Glucose Level 91 MG/DL (74-106) Uric Acid 5.3 MG/DL (2.6-7.2) Calcium Level 8.6 MG/DL (8.5-10.1) Phosphorus Level 4.6 MG/DL (2.5-4.9) Magnesium Level 2.2 MG/DL (1.8-2.4) Total Bilirubin 0.3 MG/DL (0.2-1.0) Aspartate Amino Transf (AST/SGOT) 20 U/L (15-37) Alanine Aminotransferase (ALT/SGPT) 13 U/L (12-78) Alkaline Phosphatase 41 U/L (46-116) L Troponin I 0.112 ng/mL (0.000-0.056) Total Protein 5.6 G/DL (6.4-8.2) L Albumin 2.7 G/DL (3.4-5.0) L Globulin 2.9 g/dL Albumin/Globulin Ratio 0.9 (1.0-2.7) L Random Vancomycin Level 17.0 ug/mL Medications Current Medications Medications (Trade) Dose Ordered Sig/Jesus Route PRN Reason Start Time Stop Time Status Last Admin Dose Admin Acetaminophen (Tylenol) 650 mg Q4H PRN ORAL For Pain 04/08/18 21:45 05/08/18 21:44 Apixaban (Eliquis) 2.5 mg BID ORAL 04/11/18 09:00 05/11/18 08:59 04/13/18 10:15 Aspirin (ASA) 325 mg DAILY ORAL 04/11/18 09:00 05/11/18 08:59 04/13/18 10:15 Atorvastatin Calcium (Lipitor) 10 mg BEDTIME ORAL 04/09/18 21:00 05/09/18 20:59 04/12/18 21:15 Calcium Acetate (Phoslo) 667 mg TID ORAL 04/09/18 09:00 05/09/18 08:59 04/13/18 14:01 Ceftriaxone Sodium 1 gm/ Dextrose 55 ml @ 110 mls/hr Q24H IVPB 04/11/18 22:00 04/18/18 21:59 04/12/18 21:38 Chlorhexidine Gluconate (Cira-Hex 2%) 1 applic DAILY@2000 TOPIC 04/09/18 20:00 05/09/18 19:59 04/12/18 21:15 Dextrose (Dextrose 50%) 25 ml STAT PRN IV Hypoglycemia 04/08/18 21:45 05/08/18 21:44 Dextrose (Dextrose 50%) 50 ml STAT PRN IV Hypoglycemia 04/08/18 21:45 05/08/18 21:44 Docusate Sodium (Colace) 100 mg TID ORAL 04/09/18 09:00 05/09/18 08:59 04/13/18 14:01 Epoetin Jose (Procrit (for non ESRD use)) 10,000 units SUN-SUN-SUN SUBQ 04/12/18 21:00 05/10/18 20:59 04/12/18 21:19 Gabapentin (Neurontin) 100 mg THREE TIMES A DAY ORAL 04/09/18 09:00 05/09/18 08:59 04/13/18 14:01 Hydralazine HCl (Apresoline) 25 mg Q4HR PRN ORAL bp over 160syst 04/08/18 23:15 05/08/18 23:14 04/12/18 21:15 Insulin Aspart (NovoLOG) BEFORE MEALS AND HS SUBQ 04/09/18 06:30 05/09/18 06:29 04/13/18 12:32 Lactobacillus Acidophilus (Culturelle) 1 tab DAILY ORAL 04/09/18 09:00 05/09/18 08:59 04/13/18 10:17 Lisinopril (Zestril) 5 mg DAILY ORAL 04/13/18 09:00 05/13/18 08:59 04/13/18 10:17 Metoprolol Tartrate (Lopressor) 100 mg EVERY 12 HOURS ORAL 04/13/18 21:00 05/13/18 08:59 Nitroglycerin (Ntg) 1 patch Q24H TDERMAL 04/11/18 09:00 05/11/18 08:59 04/13/18 10:18 Pantoprazole (Protonix) 40 mg DAILY ORAL 04/09/18 09:00 05/09/18 08:59 04/13/18 10:17 Vancomycin HCl (Vanco rx to dose) 1 ea DAILY PRN MISC Per rx protocol 04/11/18 20:45 05/11/18 20:44 Vitamin B Complex/ Vit C/Folic Acid (Nephrovite) 1 tab DAILY ORAL 04/09/18 09:00 05/09/18 08:59 04/13/18 10:16 Vitamin D (Vitamin D) 1,000 intlu DAILY ORAL 04/09/18 09:00 05/09/18 08:59 04/13/18 10:16 Kathi Villarreal MD Apr 13, 2018 23:18
--- NOTE | 2018-04-15 13:36 | Discharge Summary ---
Discharge Summary Discharge Summary _ DATE OF ADMISSION: 04/08/2018 DATE OF DISCHARGE: 04/13/2018 REASON FOR ADMISSION: 67 years old female with past medical history significant for congestive heart failure, history of CVA with left-sided hemiparesis, hypertension, diabetes , COPD ,end-stage renal disease , presented to emergency department for initiation of hemodialysis. Patient declined hemodialysis in the past, as advised by her primary care provider and certified nursing assistant. Currently daughter consented for hemodialysis. Patient was sent to emergency department for initiation of hemodialysis Laboratory work revealed no leukocytosis Potassium 5.8 ( treated with Kayexalate in ED). BUN 92, creatinine 5.4 with glomerular filtration rate 9.6. Troponin initially negative Hemoglobin 9.5 , hematocrit 27.4 pro BNP 7400 Chest x-ray revealed no acute cardiopulmonary pathology. Urinalysis revealed pyuria, +3 protein and few bacteria. Patient admitted with diagnosis of end-stage renal disease, hypertension, hyperkalemia, anemia, possible UTI. CONSULTANTS: chief engineer production Dr. Joan HUSTON specialist Dr. Herr certified nursing assistant Dr. Stephenson vascular surgery Dr. Mcdonald psychiatrist [facility]: Patient admitted. Vascular surgeon was contacted for placement of hemodialysis access. Subsequently on April 09 patient undergone placement of right jugular permanent hemodialysis catheter. Chest x-ray confirmed placement. Patient started on hemodialysis as per certified nursing assistant's recommendations. Renal parameters and electrolytes were closely monitored. Electrolytes corrected as needed. Nephrotoxins were avoided. Vein mapping was done as ordered by vascular surgeon. Subsequently on 04/12 patient undergone placement of left arm arteriovenous fistula. Pain management was addressed. Hepatitis panel was available from the previous admission. Prior to discharge BUN 59 ,creatinine 4.2 Outpatient hemodialysis was arranged. Patient noted to be in atrial fibrillation with rapid ventricular response. Heart rate was controlled with beta joe as per chief engineer production , who closely followed. Patient was on Eliquis, no evidence of bleeding. Echocardiogram revealed preserved ejection fraction of 60%. Blood pressure was managed with beta joe and MARILOU inhibitor Antihypertensive regimen was optimized to keep blood pressure under control Prior to discharge, blood pressure stable. Statin was continued. Blood sugar was closely monitored, stable. Hemoglobin A1c 5.1 According to certified nursing assistant patient had renal failure due to diabetic nephropathy Patient noted later to have mild elevation of troponin. According to chief engineer production, elevated troponin was likely secondary to renal failure. No ischemic changes on EKG; no cardiac complaints. Echocardiogram on previous admission revealed preserved ejection fraction. Infectious disease specialist closely followed. Patient initially started on empiric antibiotics. Urine culture revealed Proteus and Staph aureus. Patient was on antibiotics as per ID recommendations and to complete the course at the correction facility as advised by ID specialist with end of therapy . GI prophylaxis provided. CT of the head revealed no acute intracranial pathology but showed chronic bilateral CVA. Hemoglobin and hematocrit were closely monitored with goal to keep hemoglobin above 7. Patient undergone transfusion of 1 unit of packed red blood cells. Prior to discharge hemoglobin 8.2, hematocrit 24.8. Patient was on Epogen. Psychiatrist closely followed and diagnosed patient with major depressive disorder. No need for medication at this time. Reality orientation and supportive therapy provided. Supportive care provided. Pain management was addressed. Bowel regimen instituted. Patient was stable for discharge back to correction facility with outpatient follow-up for hemodialysis; follow-up with medical doctor at the facility FINAL DIAGNOSES: End-stage renal disease requiring initiation of hemodialysis Diabetic nephropathy Hypertense hypertension out of control resolved Hyperkalemia Anemia of chronic disease Urinary tract infection with Proteus and Staphylococcus aureus Atrial fibrillation with rapid ventricular response, resolved Elevated troponin likely secondary to renal failure Status post 04/09 right jugular permanent hemodialysis catheter placement Status post 04/12 left arm AV fistula creation Acute on chronic anemia requiring blood transfusion Diabetes mellitus Major depressive disorder DISCHARGE MEDICATIONS: See Medication Reconciliation list. DISCHARGE INSTRUCTIONS: Patient was discharged to correction facility. Follow up with outpatient hemodialysis as arranged. Follow-up with a medical doctor at the facility I have been assigned to dictate discharge summary for this account. I was not involved in the patient's management. Cary Jarvis NP Apr 15, 2018 13:36
--- NOTE | 2018-04-17 09:59 | Cardiology Report ---
APPROVED REPORT EXAM: Two-dimensional and M-mode echocardiogram with Doppler and color Doppler. INDICATION Atrial Fibrillation M-Mode DIMENSIONS IVSd1.6 (0.7-1.1cm)Left Atrium (MM)4.6 (1.6-4.0cm) LVDd5.3 (3.5-5.6cm)Aortic Root4.0 (2.0-3.7cm) PWd1.8 (0.7-1.1cm)Aortic Cusp Exc.1.8 (1.5-2.0cm) IVSs2.2 cm LVDs3.7 (2.5-4.0cm) PWs2.1 cm Technically difficult study due to poor acoustical windows . Normal left ventricular chamber size, systolic function and wall motion to extent visualized. Left ventricular ejection fraction estimated to be 55-60 %. Mild left ventricular hypertrophy by 2-D. No evidence of pericardial effusion. Moderate left atrial enlargements . Right cardiac chamber sizes are within normal limits. Focal aortic valve sclerosis with adequate cusp excursion. Thickened mitral valve leaflets with normal excursion. Mitral annulus and aortic root calcification. Pulmonic valve not well visualized. Normal tricuspid valve structure. IVC dilated at 2.6 cm with slightly physiologic collapse suggestive of increased RA pressure. A color flow and spectral Doppler study was performed and revealed: No aortic regurgitation. Mild mitral regurgitation. Left ventricular diastolic function can not determined due to A-FIB . Mild tricuspid regurgitation. Tricuspid systolic velocities suggests peak right ventricular systolic pressure of 27 mmHg No Pulmonic regurgitation present.
--- NOTE | 2018-05-02 05:45 | Operative Note - Dictated ---
DATE OF OPERATION: 04/09/2018 PREOPERATIVE DIAGNOSES: 1. End-stage renal disease. 2. Need for catheter dialysis access. POSTOPERATIVE DIAGNOSES: 1. End-stage renal disease. 2. Need for catheter dialysis access. FINDINGS: See below. PROCEDURES: 1. Placement of a tunneled dialysis catheter via right internal jugular vein (PermCath). 2. Intraoperative ultrasound. 3. Intraoperative fluoroscopy. 4. Supervision and interpretation of ultrasound and fluoroscopy. SURGEON: Cristel Treadwell M.D. ANESTHESIA: General. ANESTHESIOLOGIST: Sang Love M.D. INDICATION: The patient was to start on dialysis and a catheter access was requested by the rope twisting machine operator. INTRAOPERATIVE FINDINGS: The right internal jugular vein was patent and the catheter placed as described below. A good venous blood return was obtained from the ports of the catheter and the tip placed at the atriocaval junction under fluoroscopy. The patient remained hemodynamically stable throughout the procedure and chest x-ray was ordered postoperatively to rule out hemopneumothorax. PROCEDURE IN DETAIL: With the patient in supine position, the neck and upper chest areas were prepped and draped in usual sterile fashion. With the patient in Trendelenburg position and after infiltration of the skin with local anesthetic, the right internal jugular vein was entered through a posterior approach of the right sternocleidomastoid muscle using ultrasound and fluoroscopic guidance, and single wall and Seldinger technique, a wire was advanced into the vein, followed into the vena cava under fluoroscopy. The needle was removed and after infiltration of the skin with more local anesthetic, two stab incisions were made, one at the puncture site in the neck and the other in the anterolateral chest and connected through a subcutaneous tunnel through which the catheter was brought out of the upper incision where, after sterile dilation, the peel-away introducer sheath and dilator were placed coaxially over the wire and followed into the vena cava under fluoroscopy. The wire and dilator were removed and the catheter was placed through the sheath into the vessel and the sheath peeled away and removed leaving the catheter in good position in the atriocaval junction. No kinks noted along its length under fluoroscopy. Good venous blood return was obtained from both ports of the catheter, which was flushed with heparinized saline and capped. The catheter was secured to the skin with nylon sutures and after hemostasis was ensured, the neck incision was irrigated with antibiotic solution and closed with a single suture of 4-0 Vicryl in a vertical mattress subcuticular fashion. Skin was cleaned and dried and Betadine solution applied to both incisions and sterile dressings were placed. The patient tolerated the procedure well and transferred to the PACU after extubation in stable condition. ESTIMATED BLOOD LOSS: Minimal. COMPLICATIONS: None. TOTAL FLUOROSCOPY TIME: . The procedure was performed using maximal sterile barrier technique. Rivera Salazar M.D. DR: NATALIE JOB#: [id number] CC: Danie Banegas M.D.; Fax#: [phone] RIVERA SALAZAR M.D. ; FAX#: [phone]
--- NOTE | 2018-05-02 10:30 | Operative Note - Dictated ---
DATE OF OPERATION: 04/12/2018 PREOPERATIVE DIAGNOSES: 1. Endstage renal disease. 2. Need for permanent dialysis access. POSTOPERATIVE DIAGNOSES: 1. Endstage renal disease. 2. Need for permanent dialysis access. FINDINGS: Below. PROCEDURES: 1. Creation of a brachiobasilic arteriovenous fistula in the left upper extremity. 2. Dilation of left basilic vein. SURGEON: Eben Fam M.D. ANESTHESIA: General. ANESTHESIOLOGIST: Sang Love M.D. INDICATION: The patient was recently started on dialysis through a catheter access and is now in need of a permanent access and therefore AV fistula was requested. Preoperative vein mapping showed adequate veins in the upper extremities for creation of the AV fistula. INTRAOPERATIVE FINDINGS: The basilic vein was adequate for creation of the AV fistula, which was done as described below. There was a good thrill present in the AV fistula during the procedure and ipsilateral radial pulse is present at . PROCEDURE IN DETAIL: With the patient in supine position and after induction of anesthesia, left upper extremity was prepped and draped in usual sterile fashion. The skin was infiltrated with local anesthetic. A transverse incision was made over the left brachial pulse distal to the antecubital crease through which the artery was exposed and . The basilic vein at this level was also exposed through the same incision and it appeared adequate for the AV fistula creation and therefore, it was ligated more distally and divided and flushed with heparinized saline and noted to be widely patent. Serial dilators up to a 3.5 mm diameter were passed without significant resistance. The vein was spatulated and after were divided in 2-0 silk ties and hemoclips were necessary and the vein was mobilized to allow end-to-side anastomosis to the brachial artery, which was clamped proximally and distally and longitudinal was made in the vessel through which the vessel was flushed with heparinized saline proximally and distally. The end-to-side anastomosis was performed with continuous suture of 6-0 Prolene and after removal of the vessels, excellent thrill to the vein was noted and radial pulse were present as described above. After hemostasis was ensured, the wound was irrigated with antibiotic solution and closed with interrupted sutures of 3-0 Vicryl for deep layer followed by 4-0 Monocryl in a subcuticular continuous fashion for skin closure. Sterile dressing was applied and the patient was extubated and transferred to the PACU in stable condition. She tolerated the procedure well. At the conclusion of procedure, sponge, needle, and instrument counts were correct. ESTIMATED BLOOD LOSS: Minimal. COMPLICATIONS: None. DRAINS: None. SPECIMEN: None. Eben Fam M.D. DR: MIGUEL ANGEL JOB#: [id number] CC: Danie Banegas M.D.; Fax#: [phone]
== END 2018-04-13 18:47 | DRG 673 ==
LOC: EDBD 16:41 → EMR 17:22 → 2E 17:30 → EDBEDREQSVC 18:28 → EDBEDREQ 18:28 → 2E 21:13
PROC: 05HM33Z Insertion of Infusion Device into Right Internal Jugular Vein, Percutaneous Approach (ICD-10-PCS; principal; 2018-04-09 10:30)
PROC: 0JH63XZ Insertion of Tunneled Vascular Access Device into Chest Subcutaneous Tissue and Fascia, Percutaneous Approach (ICD-10-PCS; principal; 2018-04-09 10:30)
PROC: 5A1D70Z Performance of Urinary Filtration, Intermittent, Less than 6 Hours Per Day (ICD-10-PCS; principal; 2018-04-09 10:30)
PROC: 30233N1 Transfusion of Nonautologous Red Blood Cells into Peripheral Vein, Percutaneous Approach (ICD-10-PCS; 2018-04-12)
PROC: 03180ZD Bypass Left Brachial Artery to Upper Arm Vein, Open Approach (ICD-10-PCS; 2018-04-12)
DX: I12.0 Hypertensive chronic kidney disease with stage 5 chronic kidney disease or end stage renal disease (principal); N18.6 End stage renal disease; N39.0 Urinary tract infection, site not specified; I69.354 Hemiplegia and hemiparesis following cerebral infarction affecting left non-dominant side; N17.9 Acute kidney failure, unspecified; E11.22 Type 2 diabetes mellitus with diabetic chronic kidney disease; E11.21 Type 2 diabetes mellitus with diabetic nephropathy; J44.9 Chronic obstructive pulmonary disease, unspecified; D50.9 Iron deficiency anemia, unspecified; F32.9 Major depressive disorder, single episode, unspecified; E87.5 Hyperkalemia; B96.4 Proteus (mirabilis) (morganii) as the cause of diseases classified elsewhere; B95.61 Methicillin susceptible Staphylococcus aureus infection as the cause of diseases classified elsewhere; I48.91 Unspecified atrial fibrillation; Z79.4 Long term (current) use of insulin; Z88.0 Allergy status to penicillin
CPT/HCPCS: 36415; 70450; 71045; 76001; 80048; 80053; 80061; 80202; 81001; 82607; 82728; 82746; 82962; 83036; 83540; 83550; 83735; 83880; 84100; 84443; 84484; 84550; 85025; 85610; 85730; 86140; 86580; 86706; 86707; 86803; 86850; 86900; 86901; 86920; 87086; 87181; 93005; 93306; 93922; 94003; 94150; 94664; 99285; J1815; J2250; J2710; J8499

== ENCOUNTER 2018-10-16 16:12 | Inpatient (IN) | payer MEDICARE, OTHER ==
[~2018-10-16] VITALS: Ht 165.1 cm; Wt 110.8 kg
[~2018-10-16 16:12] MED LIST changes: +ASPIRIN325 MG ORAL; +ELIQUIS2.5 MG ORAL; +METOPROLOL TART50 MG ORAL; +NEPHROCAPS QT1 EACH PO; +NOVOLOG100 UNIT/3 IM
[2018-10-16 16:25] VITALS: BP 133/84
[2018-10-16] MEDS ORDERED: ATORVASTATIN CA20 MG ORAL (17:07)
[2018-10-16] MEDS ORDERED: PRO STAT PO (17:07)
[2018-10-16] MEDS ORDERED: BISACODYL10 M1 RC (17:07)
[2018-10-16 17:47] LABS: ANION GAP 13 mmol/L (5-15); BLOOD UREA NITROGEN 95 mg/dL (7-18); CALCIUM 10.2 MG/DL (8.5-10.1); CARBON DIOXIDE 22 MMOL/L (21-32); CHLORIDE 96 MMOL/L (98-107); CREATININE 6.6 MG/DL (0.55-1.30); POTASSIUM 5.1 MMOL/L (3.5-5.1); SODIUM 131 MMOL/L (136-145)
[2018-10-16 17:52] LABS: ALANINE AMINOTRANSFERASE 14 U/L (12-78); ALBUMIN 3.5 G/DL (3.4-5.0); ALBUMIN/GLOBULIN RATIO 0.9 (1.0-2.7); ALKALINE PHOSPHATASE 60 U/L (46-116); ASPARTATE AMINO TRANSFERASE 9 U/L (15-37); BILIRUBIN,TOTAL 0.2 MG/DL (0.2-1.0)
[2018-10-16 17:54] LABS: BASOPHILS % (AUTO) 1.4 % (0.0-2.0); EOSINOPHILS % (AUTO) 6.4 % (0.0-3.0); HEMATOCRIT 35.7 % (37.0-47.0); HEMOGLOBIN 12.4 G/DL (12.0-16.0); LYMPHOCYTES % (AUTO) 33.3 % (20.0-45.0); MEAN CORPUSCULAR VOLUME 94 FL (80-99); MONOCYTES % (AUTO) 12.2 % (1.0-10.0); NEUTROPHILS % (AUTO) 46.7 % (45.0-75.0); PLATELET COUNT 173 K/UL (150-450); RED CELL DISTRIBUTION WIDTH 11.4 % (11.6-14.8)
[2018-10-16 17:58] LABS: APPEARANCE,URINE CLEAR; BILIRUBIN, URINE NEGATIVE (NEGATIVE); COLOR,URINE PALE YELLOW; GLUCOSE, URINE (UA) NEGATIVE (NEGATIVE); KETONES,URINE NEGATIVE (NEGATIVE); LEUKOCYTE ESTERASE ,URINE 1+ (NEGATIVE); NITRITE,URINE NEGATIVE (NEGATIVE); PH,URINE 5 (4.5-8.0); PROTEIN,URINE 1+ (NEGATIVE); UROBILINOGEN,URINE NORMAL MG/DL (0.0-1.0)
--- NOTE | 2018-10-16 18:16 | Emergency Room Report ---
History of Present Illness General Chief Complaint: Abnormal Labs Source: Patient, Medical Record, EMS Present Illness HPI [facility] Patient underwent standard laboratory workup and was found to have hyperkalemia, hyponatremia and azotemia. End-stage renal disease and chronic diastolic heart failure. This patient has no specific complaints herself. Allergies: Coded Allergies: PENICILLINS (Verified Allergy, Unknown, 11/10/09) Patient History Past Medical History: see triage record, DM, HTN, [place], CAD, CHF, CVA/TIA, renal disease, dialysis Social History: Denies: smoking, alcohol use, drug use Now: No Reviewed Nursing Documentation: PMH: Agreed; PSxH: Agreed Nursing Documentation-PMH Past Medical History: No History, Except For Hx Cardiac Problems: Yes - CHF, Anemia, CKD, HTN, Hyperlipedemia, HF, Afib Hx Hypertension: Yes Hx COPD: Yes Hx Diabetes: Yes Hx Cancer: Yes - Uterus Neoplasm Hx Gastrointestinal Problems: No Hx Neurological Problems: Yes Hx Cerebrovascular Accident: Yes - Left Sided Weakness 10 years ago Hx Weakness: Yes Review of Systems All Other Systems: negative except mentioned in HPI Physical Exam Vital Signs Date Time Temp Pulse Resp B/P (MAP) Pulse Ox O2 Delivery O2 Flow Rate FiO2 10/16/18 16:24 97.3 54 18 127/81 96 Room Air Sp02 EP Interpretation: reviewed, normal General Appearance: no apparent distress, alert, GCS 15, non-toxic, obese Head: normocephalic, atraumatic Eyes: bilateral eye normal inspection, bilateral eye PERRL ENT: hearing grossly normal, normal pharynx, no angioedema, normal voice Neck: full range of motion, supple/symm/no masses Respiratory: chest non-tender, lungs clear, normal breath sounds, no respiratory distress, no retraction, no accessory muscle use, speaking full sentences Cardiovascular #1: regular rate, rhythm, no edema Gastrointestinal: normal bowel sounds, non tender, soft, non-distended, no guarding, no rebound Rectal: deferred Musculoskeletal: back normal, gait/station normal, normal range of motion, non- tender Neurologic: alert, oriented x3, responsive, motor strength/tone normal, sensory intact, speech normal Psychiatric: judgement/insight normal, mood/affect normal, no suicidal/ homicidal ideation Skin: normal color, no rash, warm/dry, well hydrated Medical Decision Making Diagnostic Impression: Primary Impression: Azotemia Additional Impression: ESRD (end stage renal disease) ER Course Patient has significant azotemia. This patient has known end-stage renal disease and is dialysis dependent. The patient will be admitted for dialysis and further evaluation by nephrology. Laboratory Tests Test 10/16/18 15:45 10/16/18 17:15 Urine Color Pale yellow Urine Appearance Clear Urine pH 5 (4.5-8.0) Urine Specific [place] 1.015 (1.005-1.035) Urine Protein 1+ (NEGATIVE) H Urine Glucose (UA) Negative (NEGATIVE) Urine Ketones Negative (NEGATIVE) Urine Blood Negative (NEGATIVE) Urine Nitrite Negative (NEGATIVE) Urine Bilirubin Negative (NEGATIVE) Urine Urobilinogen Normal MG/DL (0.0-1.0) Urine Leukocyte Esterase 1+ (NEGATIVE) H Urine RBC 0-2 /HPF (0 - 2) Urine WBC 2-4 /HPF (0 - 2) Urine Squamous Epithelial Cells Few /LPF (NONE/OCC) Urine Bacteria Few /HPF (NONE) White Blood Count 4.0 K/UL (4.8-10.8) L Red Blood Count 3.80 M/UL (4.20-5.40) L Hemoglobin 12.4 G/DL (12.0-16.0) Hematocrit 35.7 % (37.0-47.0) L Mean Corpuscular Volume 94 FL (80-99) Mean Corpuscular Hemoglobin 32.5 PG (27.0-31.0) H Mean Corpuscular Hemoglobin Concent 34.6 G/DL (32.0-36.0) Red Cell Distribution Width 11.4 % (11.6-14.8) L Platelet Count 173 K/UL (150-450) Mean Platelet Volume 7.2 FL (6.5-10.1) Neutrophils (%) (Auto) 46.7 % (45.0-75.0) Lymphocytes (%) (Auto) 33.3 % (20.0-45.0) Monocytes (%) (Auto) 12.2 % (1.0-10.0) H Eosinophils (%) (Auto) 6.4 % (0.0-3.0) H Basophils (%) (Auto) 1.4 % (0.0-2.0) Sodium Level 131 MMOL/L (136-145) L Potassium Level 5.1 MMOL/L (3.5-5.1) Chloride Level 96 MMOL/L (98-107) L Carbon Dioxide Level 22 MMOL/L (21-32) Anion Gap 13 mmol/L (5-15) Blood Urea Nitrogen 95 mg/dL (7-18) H Creatinine 6.6 MG/DL (0.55-1.30) H Estimate Glomerular Filtration Rate 7.5 mL/min (>60) Glucose Level 220 MG/DL (74-106) H Calcium Level 10.2 MG/DL (8.5-10.1) H Magnesium Level 3.1 MG/DL (1.8-2.4) H Total Bilirubin 0.2 MG/DL (0.2-1.0) Aspartate Amino Transferase (AST) 9 U/L (15-37) L Alanine Aminotransferase (ALT) 14 U/L (12-78) Alkaline Phosphatase 60 U/L (46-116) Total Protein 7.5 G/DL (6.4-8.2) Albumin 3.5 G/DL (3.4-5.0) Globulin 4.0 g/dL Albumin/Globulin Ratio 0.9 (1.0-2.7) L EKG Diagnostic Results Rate: normal Rhythm: NSR ST Segments: no acute changes Rhythm Strip Diag. Results EP Interpretation: yes Rate: 60's Rhythm: NSR, no PVC's, no ectopy Last Vital Signs Date Time Temp Pulse Resp B/P (MAP) Pulse Ox O2 Delivery O2 Flow Rate FiO2 10/16/18 16:25 97.3 53 18 133/84 100 Room Air Disposition: ADMITTED INPATIENT Condition: Serious Tabby Holland DO Oct 16, 2018 18:16
[2018-10-16 18:25] VITALS: BP 124/76
[2018-10-16] MEDS ORDERED: Acetaminophen 500mg (ES) tab ORAL ONE (20:00)
[2018-10-16 20:53] VITALS: BP 130/65
[2018-10-16 21:15] VITALS: BP 110/81
[2018-10-16] MEDS ORDERED: Acetaminophen 500mg (ES) tab ORAL PRN (22:15)
[2018-10-16] MEDS ORDERED: HydrALAZINE 25mg tab ORAL PRN (22:15)
[2018-10-16] MEDS ORDERED: Metoprolol Tartrate 50mg tab ORAL SCH (22:15)
[2018-10-16] MEDS: Metoprolol 25mg tab ORAL SCH (23:15)
[2018-10-17 00:58] VITALS: BP 144/67
[2018-10-17 04:18] VITALS: BP 119/61
[2018-10-17 06:02] LABS: BASOPHILS % (AUTO) 1.5 % (0.0-2.0); EOSINOPHILS % (AUTO) 6.7 % (0.0-3.0); HEMATOCRIT 33.4 % (37.0-47.0); HEMOGLOBIN 11.6 G/DL (12.0-16.0); LYMPHOCYTES % (AUTO) 29.5 % (20.0-45.0); MEAN CORPUSCULAR VOLUME 94 FL (80-99); MONOCYTES % (AUTO) 12.1 % (1.0-10.0); NEUTROPHILS % (AUTO) 50.3 % (45.0-75.0); PLATELET COUNT 168 K/UL (150-450); RED BLOOD COUNT 3.54 M/UL (4.20-5.40)
[2018-10-17 06:32] LABS: ALANINE AMINOTRANSFERASE 14 U/L (12-78); ALBUMIN 3.1 G/DL (3.4-5.0); ALBUMIN/GLOBULIN RATIO 0.8 (1.0-2.7); ALKALINE PHOSPHATASE 54 U/L (46-116); ANION GAP 14 mmol/L (5-15); ASPARTATE AMINO TRANSFERASE 11 U/L (15-37); BILIRUBIN,TOTAL 0.2 MG/DL (0.2-1.0); BLOOD UREA NITROGEN 100 mg/dL (7-18); CALCIUM 9.8 MG/DL (8.5-10.1); CARBON DIOXIDE 21 MMOL/L (21-32); CHLORIDE 98 MMOL/L (98-107); CREATININE 6.8 MG/DL (0.55-1.30); HDL CHOLESTEROL 49 MG/DL (40-60); PHOSPHORUS 6.9 MG/DL (2.5-4.9); POTASSIUM 4.7 MMOL/L (3.5-5.1); SODIUM 133 MMOL/L (136-145); TRIGLYCERIDES 62 MG/DL (30-150)
[2018-10-17 08:00] VITALS: BP 139/69
[2018-10-17] MEDS ORDERED: Docusate 100mg cap ORAL SCH (09:00)
[2018-10-17] MEDS ORDERED: Calcium Acetate 667mg Tab ORAL SCH (09:00)
[2018-10-17] MEDS: Metoprolol 25mg tab ORAL SCH (09:00)
[2018-10-17] MEDS: Eliquis 2.5mg tablet ORAL SCH ×2 (09:18→17:40)
[2018-10-17] MEDS: Aspirin Baby 81mg ORAL SCH (09:18)
--- NOTE | 2018-10-17 10:39 | Consultation ---
Consult Note Consult Note asked to eval for dialysis management patient found exteremely week and somewhat altered and breathy heavy in ECF Admitted via ER examined interviewed data reviewed Past Medical History: see triage record, DM, HTN, [place], CAD, CHF, CVA/TIA, renal disease, dialysis Past Medical History: No History, Except For Hx Cardiac Problems: Yes - CHF, Anemia, CKD, HTN, Hyperlipedemia, HF, Afib Hx Hypertension: Yes Hx COPD: Yes Hx Diabetes: Yes Hx Cancer: Yes - Uterus Neoplasm Hx Neurological Problems: Yes Hx Cerebrovascular Accident: Yes - Left Sided Weakness 10 years ago Hx Weakness: Yes . Assessment/Plan Encephalopathy, Metabolic Mild CHF due to Volume overload ESRD (end stage renal disease) Diabetic nephropathy h/o Anemia of CKD HTN (hypertension) h/o At fib CVA left weakness Bradycardia Hold lopressor for low HR check EKG HD with UF today adjust BP meds Manas Stephenson MD Oct 17, 2018 10:39
[2018-10-17 11:00] LABS: CHOLESTEROL 184 MG/DL (< 200)
[2018-10-17 12:00] VITALS: BP 135/64
--- NOTE | 2018-10-17 13:22 | History & Physical ---
History and Physical History & Physicial HISTORY OF PRESENT ILLNESS: The patient is a pleasant 68 -year-old female. The patient has multiple medical problems. She is currently resident of a half-way facility. I was notified about worsening serum sodium level with the reported NA level of 128., . At the time of evaluation, the patient denies any chest pain, nausea, vomitus, diarrhea, constipation, any abnormal bleeding. The patient is AO x3. FAMILY HISTORY: Reviewed. Noncontributory. PAST MEDICAL HISTORY: CVA with left-sided hemiparesis, hypertension, diabetes, COPD, iron-deficiency anemia, and ERSRD HALFWAY MEDICATIONS: Including, but not limited to amlodipine, Eliquis, atorvastatin, ferrous sulfate, gabapentin, hydralazine, and metoprolol. ALLERGIES: Penicillin PAST SURGICAL HISTORY: including , RU chest wall HD access SOCIAL HISTORY: The patient is currently residing in a half-way facility. Has 1 daughter. Denies history of illicit drug abuse, smoking, or alcohol abuse. PHYSICAL EXAMINATION: VITAL SIGNS: Blood pressure 140/80, temperature 98.1, pulse oximetry 98% on room air, and respiratory rate 18-20.AZ: 45-65 HEAD AND NECK: Atraumatic and normocephalic. Positive for the right-sided hemiparesis. CHEST: Clear to auscultation. No wheezing. No crackles. HEART: S1 and S2. Regular rate and rhythm. Negative for S3. Positive for questionable cardiac murmurs. ABDOMEN: Obese and soft. Bowel sounds normal. No gross organomegaly. NEUROLOGIC: The patient is awake, alert and oriented x3. Positive for slurred speech. MUSCULOSKELETAL: Positive for the left-sided hemiparesis, more prominent in the left upper extremity. LABORATORY AND DIAGNOSTIC DATA: Labs dated 10/17/2018 Medication : reviewed and reconciled ASSESSMENT: 1. HypoNatremia: Asymptomatic 2. ESRD ( accepting to proceed with HD) 2. Diabetes type 2. 3. Hypertension, uncontrolled. 5. Cerebrovascular accident with left-sided hemiparesis. 6. Gastrointestinal and deep vein thrombosis prophylaxis. 7. Iron-deficiency anemia. 8. GI DVT prophylaxia 9. Sinus Bradycardia: will optimize BP medication PLAN OF CARE: Will proceed with HD and adjustment of electrolyte, per Nephrology input Sinus Bradycardia: will optimize BP medication Danie Banegas MD Oct 17, 2018 13:22
[2018-10-17] MEDS: Calcium Acetate 667mg Tab ORAL SCH ×2 (13:29→17:40)
[2018-10-17] MEDS: Docusate 100mg cap ORAL SCH ×2 (13:30→17:39)
[2018-10-17 16:00] VITALS: BP 120/73
[2018-10-17 20:52] VITALS: BP 145/68
[2018-10-18 00:49] VITALS: BP 138/70
[2018-10-18 04:10] VITALS: BP 137/64
[2018-10-18 08:00] VITALS: BP 139/72
[2018-10-18] MEDS: Aspirin Baby 81mg ORAL SCH (08:28)
[2018-10-18] MEDS: Eliquis 2.5mg tablet ORAL SCH ×2 (08:28→17:08)
[2018-10-18] MEDS: Lisinopril 10mg tab ORAL SCH (08:28)
[2018-10-18] MEDS: Calcium Acetate 667mg Tab ORAL SCH ×3 (08:29→17:08)
[2018-10-18] MEDS: Docusate 100mg cap ORAL SCH ×4 (08:29→17:09)
--- NOTE | 2018-10-18 10:23 | Nephrology Progress Note ---
Assessment/Plan Problem List: (1) ESRD (end stage renal disease) (2) Diabetic nephropathy (3) Volume overload (4) Bradycardia Assessment: asymptomatic Assessment Encephalopathy, Metabolic Mild CHF due to Volume overload ESRD (end stage renal disease) Diabetic nephropathy h/o Anemia of CKD HTN (hypertension) h/o At fib CVA left weakness Bradycardia Plan Hold lopressor for low HR check EKG HD with UF 10/17 and 10/19 adjust BP meds DC in aam after HD Subjective ROS Limited/Unobtainable: No Objective Objective Last 24 Hour Vital Signs Date Time Temp Pulse Resp B/P (MAP) Pulse Ox O2 Delivery O2 Flow Rate FiO2 10/18/18 08:29 60 139/72 10/18/18 08:28 139/72 10/18/18 08:00 98.7 60 18 139/72 (94) 95 10/18/18 04:10 98.9 60 18 137/64 (88) 96 10/18/18 00:49 99.3 60 18 138/70 (92) 97 10/17/18 21:43 Room Air 10/17/18 21:00 98.7 10/17/18 20:52 98.7 66 20 145/68 (93) 98 10/17/18 16:00 97.8 58 20 120/73 (89) 97 10/17/18 12:00 98.0 50 20 135/64 (87) 98 Intake and Output 10/17/18 10/18/18 19:00 07:00 Intake Total 480 ml 120 ml Output Total 1000 ml Balance -520 ml 120 ml Intake Oral 480 ml 120 ml Output Hemodialysis UF 1000 ml # Voids 3 2 # Bowel Movements 1 Height (Feet): 5 Height (Inches): 5.00 Weight (Pounds): 283 General Appearance: no apparent distress Cardiovascular: normal rate, bradycardia - slight Respiratory/Chest: decreased breath sounds Manas Stephenson MD Oct 18, 2018 10:23
[2018-10-18 12:00] VITALS: BP 117/66
--- NOTE | 2018-10-18 12:29 | General Progress Note ---
Assessment/Plan Assessment/Plan S: I have little bit of sob O: appears comfortable, denies any pain \ PHYSICAL EXAMINATION: VITAL SIGNS: Blood pressure 140/80, temperature 98.1, pulse oximetry 98% on room air, and respiratory rate 18-20.NM: 45-65 HEAD AND NECK: Atraumatic and normocephalic. Positive for the right-sided hemiparesis. CHEST: Clear to auscultation. No wheezing. No crackles. HEART: S1 and S2. Regular rate and rhythm. Negative for S3. Positive for questionable cardiac murmurs. ABDOMEN: Obese and soft. Bowel sounds normal. No gross organomegaly. NEUROLOGIC: The patient is awake, alert and oriented x3. Positive for slurred speech. MUSCULOSKELETAL: Positive for the left-sided hemiparesis, more prominent in the left upper extremity. LABORATORY AND DIAGNOSTIC DATA: Labs dated 10/17/2018 Medication : reviewed and reconciled ASSESSMENT: 1. HypoNatremia: Asymptomatic 2. ESRD ( accepting to proceed with HD) 2. Diabetes type 2. 3. Hypertension, uncontrolled. 5. Cerebrovascular accident with left-sided hemiparesis. 6. Gastrointestinal and deep vein thrombosis prophylaxis. 7. Iron-deficiency anemia. 8. GI DVT prophylaxia 9. Sinus Bradycardia: will optimize BP medication PLAN OF CARE: Will proceed with HD and adjustment of electrolyte, per Nephrology input Sinus Bradycardia: will optimize BP medication Subjective Allergies: Coded Allergies: PENICILLINS (Verified Allergy, Unknown, 11/10/09) Objective Last 24 Hour Vital Signs Date Time Temp Pulse Resp B/P (MAP) Pulse Ox O2 Delivery O2 Flow Rate FiO2 10/18/18 09:00 Room Air 10/18/18 08:29 60 139/72 10/18/18 08:28 139/72 10/18/18 08:00 98.7 60 18 139/72 (94) 95 10/18/18 04:10 98.9 60 18 137/64 (88) 96 10/18/18 00:49 99.3 60 18 138/70 (92) 97 10/17/18 21:43 Room Air 10/17/18 21:00 98.7 10/17/18 20:52 98.7 66 20 145/68 (93) 98 10/17/18 16:00 97.8 58 20 120/73 (89) 97 Intake and Output 1/10/19 1/11/19 19:00 07:00 Intake Total 480 ml 120 ml Output Total 1000 ml Balance -520 ml 120 ml Intake Oral 480 ml 120 ml Output Hemodialysis UF 1000 ml # Voids 3 2 # Bowel Movements 1 Height (Feet): 5 Height (Inches): 5.00 Weight (Pounds): 283 Danie Banegas MD Oct 18, 2018 12:29
[2018-10-18 16:00] VITALS: BP 130/62
--- NOTE | 2018-10-18 18:08 | Cardiology Report ---
APPROVED REPORT EKG Measurement Heart [id number] Sinus bradycardia with premature atrial complexes Nonspecific T wave abnormality Abnormal ECG
[2018-10-18 20:00] VITALS: BP 142/62
[2018-10-19] VITALS: BP 144/66
[2018-10-19 04:00] VITALS: BP 118/73
[2018-10-19 08:00] VITALS: BP 131/66
[2018-10-19] MEDS: Lisinopril 10mg tab ORAL SCH (08:52)
[2018-10-19] MEDS: Calcium Acetate 667mg Tab ORAL SCH ×3 (08:52→17:17)
[2018-10-19] MEDS: Aspirin Baby 81mg ORAL SCH (08:52)
[2018-10-19] MEDS: Eliquis 2.5mg tablet ORAL SCH ×2 (08:53→17:17)
[2018-10-19] MEDS: Docusate 100mg cap ORAL SCH ×3 (08:54→17:18)
[2018-10-19 09:04] LABS: ALANINE AMINOTRANSFERASE 13 U/L (12-78); ALBUMIN/GLOBULIN RATIO 0.7 (1.0-2.7); ALKALINE PHOSPHATASE 56 U/L (46-116); ANION GAP 13 mmol/L (5-15); ASPARTATE AMINO TRANSFERASE 15 U/L (15-37); BILIRUBIN,TOTAL 0.3 MG/DL (0.2-1.0); BLOOD UREA NITROGEN 83 mg/dL (7-18); CALCIUM 10.9 MG/DL (8.5-10.1); CARBON DIOXIDE 20 MMOL/L (21-32); CHLORIDE 99 MMOL/L (98-107); CREATININE 5.3 MG/DL (0.55-1.30); PHOSPHORUS 5.1 MG/DL (2.5-4.9); POTASSIUM 5.6 MMOL/L (3.5-5.1); SODIUM 131 MMOL/L (136-145)
[2018-10-19 12:00] VITALS: BP 142/67
--- NOTE | 2018-10-19 12:13 | Nephrology Progress Note ---
Assessment/Plan Problem List: (1) ESRD (end stage renal disease) (2) Diabetic nephropathy (3) Volume overload (4) Bradycardia Assessment: asymptomatic Assessment Encephalopathy, Metabolic Mild CHF due to Volume overload ESRD (end stage renal disease) Diabetic nephropathy h/o Anemia of CKD HTN (hypertension) h/o At fib CVA left weakness Bradycardia Plan Hold lopressor for low HR check EKG HD with UF 10/17 and 10/19 adjust BP meds DC after HD ? Subjective ROS Limited/Unobtainable: No Objective Objective Last 24 Hour Vital Signs Date Time Temp Pulse Resp B/P (MAP) Pulse Ox O2 Delivery O2 Flow Rate FiO2 10/19/18 12:00 98.1 52 20 142/67 (92) 99 10/19/18 09:00 Room Air 10/19/18 08:53 61 131/66 10/19/18 08:52 131/66 10/19/18 08:00 97.9 61 20 131/66 (87) 94 10/19/18 04:00 97.8 55 20 118/73 (88) 98 10/19/18 00:00 98.5 56 18 144/66 (92) 96 10/18/18 20:56 Room Air 10/18/18 20:00 98.1 58 18 142/62 (88) 95 10/18/18 16:00 97.5 60 20 130/62 (84) 100 Intake and Output 10/18/18 10/19/18 19:00 07:00 Intake Total 360 ml Balance 360 ml Intake Oral 360 ml # Voids 3 1 # Bowel Movements 2 Laboratory Tests 10/19/18 07:32: Sodium Level 131L, Potassium Level 5.6H, Chloride Level 99, Carbon Dioxide Level 20L, Anion Gap 13, Blood Urea Nitrogen 83H, Creatinine 5.3H, Estimat Glomerular Filtration Rate 9.7, Glucose Level 109H, Calcium Level 10.9H, Phosphorus Level 5.1H, Total Bilirubin 0.3, Aspartate Amino Transf (AST/SGOT) 15 , Alanine Aminotransferase (ALT/SGPT) 13, Alkaline Phosphatase 56, Total Protein 7.3, Albumin 3.0L, Globulin 4.3, Albumin/Globulin Ratio 0.7L Height (Feet): 5 Height (Inches): 5.00 Weight (Pounds): 248 General Appearance: no apparent distress Objective no change Manas Stephenson MD Oct 19, 2018 12:13
[2018-10-19] MEDS ORDERED: LISINOPRIL10 MG ORAL (12:39)
[2018-10-19] MEDS ORDERED: HYDRALAZINE HCL25 M1 ORAL (12:39)
[2018-10-19 16:00] VITALS: BP 122/61
[2018-10-19 20:00] VITALS: BP 114/75
[2018-10-20] VITALS: BP 140/87
[2018-10-20 04:00] VITALS: BP 134/69
[2018-10-20 08:00] VITALS: BP 155/82
[2018-10-20] MEDS: Docusate 100mg cap ORAL SCH ×2 (09:00→13:00)
[2018-10-20] MEDS: Eliquis 2.5mg tablet ORAL SCH (09:17)
[2018-10-20] MEDS: Calcium Acetate 667mg Tab ORAL SCH ×2 (09:17→14:11)
[2018-10-20] MEDS: Aspirin Baby 81mg ORAL SCH (09:18)
[2018-10-20] MEDS: Lisinopril 10mg tab ORAL SCH (09:20)
[2018-10-20 12:00] VITALS: BP 122/61
--- NOTE | 2018-10-20 14:52 | Nephrology Progress Note ---
Assessment/Plan Problem List: (1) ESRD (end stage renal disease) (2) Diabetic nephropathy (3) Volume overload (4) Bradycardia Assessment: asymptomatic Assessment Encephalopathy, Metabolic Mild CHF due to Volume overload ESRD (end stage renal disease) Diabetic nephropathy h/o Anemia of CKD HTN (hypertension) h/o At fib CVA left weakness Bradycardia Plan Hold lopressor for low HR check EKG HD with UF 10/17 and 10/19 adjust BP meds DC ? next HD as OP 10/22 Subjective ROS Limited/Unobtainable: No Constitutional: Reports: malaise Objective Objective Last 24 Hour Vital Signs Date Time Temp Pulse Resp B/P (MAP) Pulse Ox O2 Delivery O2 Flow Rate FiO2 10/20/18 12:00 98.8 60 17 122/61 (81) 97 10/20/18 09:21 63 155/82 10/20/18 09:20 155/82 10/20/18 09:00 Room Air 10/20/18 08:00 98.5 63 17 155/82 (106) 97 10/20/18 04:00 97.7 65 20 134/69 (90) 96 10/20/18 00:00 97.5 75 17 140/87 (104) 98 10/19/18 21:00 Room Air 10/19/18 20:00 98.0 61 17 114/75 (88) 98 10/19/18 16:00 97.7 65 20 122/61 (81) 98 Intake and Output 10/19/18 10/20/18 19:00 07:00 Intake Total 600 ml 300 ml Output Total 200 ml Balance 400 ml 300 ml Intake Oral 600 ml 300 ml Output Urine Total 200 ml # Voids 2 Current Medications Medications (Trade) Dose Ordered Sig/Jesus Route PRN Reason Start Time Stop Time Status Last Admin Dose Admin Acetaminophen (Tylenol) 500 mg Q4H PRN ORAL Mild Pain/Temp > 100.5 10/16/18 22:15 11/15/18 22:14 10/17/18 01:27 Acetaminophen (Tylenol) 650 mg Q4H PRN ORAL For Pain 10/17/18 02:00 11/16/18 01:59 10/20/18 01:17 Amlodipine Besylate (Norvasc) 2.5 mg DAILY ORAL 10/18/18 09:00 11/16/18 08:59 10/20/18 09:21 Apixaban (Eliquis) 2.5 mg BID ORAL 10/17/18 09:00 11/16/18 08:59 10/20/18 09:17 Aspirin (ASA) 81 mg DAILY ORAL 10/17/18 09:00 11/16/18 08:59 10/20/18 09:18 Atorvastatin Calcium (Lipitor) 10 mg BEDTIME ORAL 10/17/18 21:00 11/16/18 20:59 10/19/18 20:47 Calcium Acetate (Phoslo) 1,334 mg TID ORAL 10/17/18 13:00 11/16/18 08:59 10/20/18 14:11 Docusate Sodium (Colace) 100 mg TID ORAL 10/17/18 13:00 11/16/18 08:59 10/18/18 12:21 Hydralazine HCl (Apresoline) 25 mg Q4H PRN ORAL bp over 160 syst 10/16/18 22:15 11/15/18 22:14 Lisinopril (Zestril) 10 mg DAILY ORAL 10/18/18 09:00 11/17/18 08:59 10/20/18 09:20 Pantoprazole (Protonix) 40 mg EVERY 12 HOURS ORAL 10/16/18 22:15 11/15/18 22:14 10/20/18 09:18 Height (Feet): 5 Height (Inches): 5.00 Weight (Pounds): 244 General Appearance: no apparent distress Objective no change Manas Stephenson MD Oct 20, 2018 14:52
[2018-10-20 16:00] VITALS: BP 141/77
--- NOTE | 2018-10-20 19:15 | General Progress Note ---
Assessment/Plan Assessment/Plan S: I have little bit of sob O: appears comfortable, denies any pain \ PHYSICAL EXAMINATION: VITAL SIGNS: Blood pressure 140/80, temperature 98.1, pulse oximetry 98% on room air, and respiratory rate 18-20.OK: 45-65 HEAD AND NECK: Atraumatic and normocephalic. Positive for the right-sided hemiparesis. CHEST: Clear to auscultation. No wheezing. No crackles. HEART: S1 and S2. Regular rate and rhythm. Negative for S3. Positive for questionable cardiac murmurs. ABDOMEN: Obese and soft. Bowel sounds normal. No gross organomegaly. NEUROLOGIC: The patient is awake, alert and oriented x3. Positive for slurred speech. MUSCULOSKELETAL: Positive for the left-sided hemiparesis, more prominent in the left upper extremity. LABORATORY AND DIAGNOSTIC DATA: Labs dated 10/17/2018 Medication : reviewed and reconciled ASSESSMENT: 1. HypoNatremia: Asymptomatic 2. ESRD ( accepting to proceed with HD) 2. Diabetes type 2. 3. Hypertension, uncontrolled. 5. Cerebrovascular accident with left-sided hemiparesis. 6. Gastrointestinal and deep vein thrombosis prophylaxis. 7. Iron-deficiency anemia. 8. GI DVT prophylaxia 9. Sinus Bradycardia: will optimize BP medication PLAN OF CARE: Will proceed with HD and adjustment of electrolyte, per Nephrology input Sinus Bradycardia: will optimize BP medication ok to followup as out patinet Subjective Allergies: Coded Allergies: PENICILLINS (Verified Allergy, Unknown, 11/10/09) Objective Last 24 Hour Vital Signs Date Time Temp Pulse Resp B/P (MAP) Pulse Ox O2 Delivery O2 Flow Rate FiO2 10/20/18 16:00 98.8 63 18 141/77 (98) 100 10/20/18 12:00 98.8 60 17 122/61 (81) 97 10/20/18 09:21 63 155/82 10/20/18 09:20 155/82 10/20/18 09:00 Room Air 10/20/18 08:00 98.5 63 17 155/82 (106) 97 10/20/18 04:00 97.7 65 20 134/69 (90) 96 10/20/18 00:00 97.5 75 17 140/87 (104) 98 10/19/18 21:00 Room Air 10/19/18 20:00 98.0 61 17 114/75 (88 98 Intake and Output 10/19/18 10/20/18 19:00 07:00 Intake Total 600 ml 300 ml Output Total 200 ml Balance 400 ml 300 ml Intake Oral 600 ml 300 ml Output Urine Total 200 ml # Voids 2 Height (Feet): 5 Height (Inches): 5.00 Weight (Pounds): 244 Danie Banegas MD Oct 20, 2018 19:15
--- NOTE | 2018-10-22 08:12 | Discharge Summary ---
Discharge Summary Discharge Summary _ DATE OF ADMISSION: DATE OF DISCHARGE: 10/20/2018 DISCHARGED BY: Dr. Banegas REASON FOR ADMISSION: 68 years old female with past medical history of CVA with left-sided hemiparesis , hypertension, diabetes, COPD, coronary artery disease with history of NH, congestive heart failure, atrial fibrillation, iron deficiency anemia, end-stage renal disease, on hemodialysis, resident of care home facility, presented for evaluation after standard laboratory workup was found hyperkalemia, hyponatremia and azotemia in the setting of end-stage renal disease. Patient denied chest pain ,nausea, vomiting ,diarrhea ,constipation, and abnormal bleeding. Vital signs revealed bradycardia with heart rate 54. Laboratory workup revealed leukopenia WBC 4.0 , stable hemoglobin hematocrit. Sodium 131, chloride 96, potassium 5.1, magnesium 3.1. BUN 85, creatinine 6.6. Glucose 220. Urinalysis +1 protein, no evidence of UTI. EKG revealed sinus bradycardia , no acute ischemic changes. Patient admitted for further management CONSULTANTS: senior field service engineer Dr. Stephenson HOSPITAL COURSE: Patietn admitted. Nephrology consult was requested. Patient was found to be extremely weak and somewhat altered. Hemodialysis with ultrafiltration was arranged for the same day. Beta-joe was stopped due to bradycardia . Hemodialysis was provided as per senior field service engineer recommendations with close monitoring of volumes, electrolytes and renal parameters. Electrolyte were corrected as needed. Antihypertensive medication regimen was optimized. Bl Blood pressure was managed with calcium channel joe and MARILOU inhibitor and remained stable . Antiplatelet therapy with aspirin and statin were continued. Lipid panel revealed elevated LDL 116. Patient educated on low-fat low-cholesterol cardiac diabetic diet . Anticoagulation for antiembolic prophyalxis due to history of atrial fibrillation with Eliquis continued ( renal dose ). No evidence of bleeding. GI prophylaxis provided. Bowel regimen instituted. Blood sugar was closely monitored and managed with his current regimen. Hemoglobin A1c at goal. Supportive care provided. Pulse oximetry was stable on room air. Patient clinically improved. Heart rate in 60s. Patient was stable for transfer back to care home [facility] for continuation of care. FINAL DIAGNOSES: Metabolic encephalopathy End-stage renal disease, on hemodialysis Diabetic nephropathy Mild CHF due to volume overload Electrolyte abnormalitites ( hypo Na, hyper K) Hypertension History of CVA with left-sided hemiparesis Sinus bradycardia History of anemia of chronic disease History of atrial fibrillation Diabetes mellitus DISCHARGE MEDICATIONS: See Medication Reconciliation list. DISCHARGE INSTRUCTIONS: Patient was discharged to the care home facility. Follow up with medical doctor at the facility. Next hemodialysis as outpatient 10/22/18. I have been assigned to dictate discharge summary for this account. I was not involved in the patient's management. Cary Jarvis NP Oct 22, 2018 08:12
== END 2018-10-20 17:51 | DRG 291 ==
LOC: EDBD 16:12 → EMR 19:51 → 4E 19:53 → EDBEDREQ 20:29 → 4E 10-17 03:21
PROC: 5A1D70Z Performance of Urinary Filtration, Intermittent, Less than 6 Hours Per Day (ICD-10-PCS; principal; 2018-10-17)
DX: I13.2 Hypertensive heart and chronic kidney disease with heart failure and with stage 5 chronic kidney disease, or end stage renal disease (principal); N18.6 End stage renal disease; G93.41 Metabolic encephalopathy; I50.32 Chronic diastolic (congestive) heart failure; I69.354 Hemiplegia and hemiparesis following cerebral infarction affecting left non-dominant side; E87.1 Hypo-osmolality and hyponatremia; E11.22 Type 2 diabetes mellitus with diabetic chronic kidney disease; Z99.2 Dependence on renal dialysis; D50.9 Iron deficiency anemia, unspecified; R00.1 Bradycardia, unspecified; E87.5 Hyperkalemia; I25.2 Old myocardial infarction; Z85.42 Personal history of malignant neoplasm of other parts of uterus; Z79.01 Long term (current) use of anticoagulants; Z88.0 Allergy status to penicillin; J44.9 Chronic obstructive pulmonary disease, unspecified
CPT/HCPCS: 36415; 80053; 80061; 81003; 83036; 83735; 83880; 84100; 84443; 84484; 84550; 85025; 86140; 87081; 93005; 99285

== ENCOUNTER 2019-02-20 08:18 | Day surgery (SDC) | payer MEDICARE, OTHER ==
[~2019-02-20] VITALS: Ht 165.1 cm; Wt 108.0 kg
[2019-02-20] VITALS (10 sets, daily range): BP systolic 118–135; BP diastolic 34–58
[~2019-02-20 08:18] MED LIST changes: +ATORVASTATIN CA20 MG ORAL; +BISACODYL10 M1 RC; +HYDRALAZINE HCL25 M1 ORAL; +LISINOPRIL10 MG ORAL; +PRO STAT PO
[2019-02-20] MEDS ORDERED: VITAMIN D-40400 UNIT ORAL (09:35)
[2019-02-20] MEDS ORDERED: NORCO 5-325 TA1 EACH ORAL (09:35)
[2019-02-20] MEDS ORDERED: [UNRECOGNIZED DRUG - OTHER] PO (09:35)
[2019-02-20] MEDS ORDERED: RENVELA0.8 GM ORAL (09:35)
[2019-02-20] MEDS ORDERED: AMIODARONE HCL400 M1 ORAL (09:35)
[2019-02-20 10:04] LABS: BASOPHILS % (AUTO) 1.3 % (0.0-2.0); EOSINOPHILS % (AUTO) 4.7 % (0.0-3.0); HEMATOCRIT 37.8 % (37.0-47.0); HEMOGLOBIN 12.2 G/DL (12.0-16.0); LYMPHOCYTES % (AUTO) 25.8 % (20.0-45.0); MEAN CORPUSCULAR VOLUME 96 FL (80-99); MONOCYTES % (AUTO) 10.7 % (1.0-10.0); NEUTROPHILS % (AUTO) 57.6 % (45.0-75.0); PLATELET COUNT 156 K/UL (150-450); RED BLOOD COUNT 3.92 M/UL (4.20-5.40); WHITE BLOOD COUNT 5.4 K/UL (4.8-10.8)
[2019-02-20 10:19] LABS: ANION GAP 7 mmol/L (5-15); BLOOD UREA NITROGEN 39 mg/dL (7-18); CALCIUM 9.6 MG/DL (8.5-10.1); CARBON DIOXIDE 32 MMOL/L (21-32); CHLORIDE 101 MMOL/L (98-107); CREATININE 6.4 MG/DL (0.55-1.30); POTASSIUM 4.7 MMOL/L (3.5-5.1); SODIUM 140 MMOL/L (136-145)
[2019-02-20] MEDS ORDERED: fentaNYL 100 mcg/2 mL IV ONE (11:39)
[2019-02-20] MEDS ORDERED: Midazolam 2mg/2ml Inj ONE (11:39)
[2019-02-20] MEDS ORDERED: Lidocaine 1% MPF 10mg/ml 5ml ONE (11:43)
[2019-02-20] MEDS ORDERED: Propofol 200mg/20ml IV ONE (11:43)
--- NOTE | 2019-02-20 12:01 | Anethesia Preoperative Eval ---
Anesthesia Pre-op PMH/ROS General Date of Evaluation: February 20, 2019 Time of Evaluation: 11:57 Anesthesiologist: Kate ASA Score: ASA 3 Mallampati Score Class I : Soft palate, uvula, fauces, pillars visible Class II: Soft palate, uvula, fauces visible Class III: Soft palate, base of uvula visible Class IV: Only hard plate visible Mallampati Classification: Class III Surgeon: Cristel Diagnosis: Malunctioning A-V Fistula Surgical Procedure: Revision of a-v fistula Anesthesia History: none Family History: no anesthesia problems Allergies: Coded Allergies: PENICILLINS (Verified Allergy, Unknown, 11/10/09) Medications: see eMAR Patient NPO?: Yes Past Medical History Cardiovascular: Reports: HTN; Denies: CAD, NH, valve dz, arrhythmia, other Pulmonary: Reports: HUBER; Denies: asthma, COPD, other Gastrointestinal/Genitourinary: Reports: ESRD - on HD; Denies: GERD, CRI, other Neurologic/Psychiatric: Reports: depression/anxiety; Denies: dementia, CVA, TIA, other Endocrine: Reports: DM; Denies: hypothyroidism, steroids, other HEENT: Denies: cataract (L), cataract (R), glaucoma, EGEGIK (L), EGEGIK (R), other Hematology/Immune: Reports: anemia - mild; Denies: DVT, bleeding disorder, other Musculoskeletal/Integumentary: Denies: OA, RA, DJD, DDD, edema, other Other: obesity PMH Narrative: as above PSxH Narrative: see H&P Anesthesia Pre-op Phys. Exam Physician Exam Last Vital Signs Date Time Temp Pulse Resp B/P (MAP) Pulse Ox O2 Delivery O2 Flow Rate FiO2 02/20/19 09:10 Room Air 02/20/19 09:09 97.0 63 18 130/58 95 Constitutional: NAD Neurologic: CN 2-12 intact Cardiovascular: RRR, no M/R/G Respiratory: other - diminished breath sounds bilaterally Gastrointestinal: other - morbid obesoty Airway Exam Mallampati Score: Class III MO: limited Neck: short ROM: limited Teeth: intact Dentures: no upper, no lower Anesthesia Pre-op A/P Labs Hematology Test 02/20/19 10:00 White Blood Count 5.4 K/UL (4.8-10.8) Red Blood Count 3.92 M/UL (4.20-5.40) L Hemoglobin 12.2 G/DL (12.0-16.0) Hematocrit 37.8 % (37.0-47.0) Mean Corpuscular Volume 96 FL (80-99) Mean Corpuscular Hemoglobin 31.0 PG (27.0-31.0) Mean Corpuscular Hemoglobin Concent 32.2 G/DL (32.0-36.0) Red Cell Distribution Width 13.0 % (11.6-14.8) Platelet Count 156 K/UL (150-450) Mean Platelet Volume 7.7 FL (6.5-10.1) Neutrophils (%) (Auto) 57.6 % (45.0-75.0) Lymphocytes (%) (Auto) 25.8 % (20.0-45.0) Monocytes (%) (Auto) 10.7 % (1.0-10.0) H Eosinophils (%) (Auto) 4.7 % (0.0-3.0) H Basophils (%) (Auto) 1.3 % (0.0-2.0) Coagulation Test 02/20/19 10:00 Prothrombin Time 10.9 SEC (9.30-11.50) Prothromb Time International Ratio 1.0 (0.9-1.1) Activated Partial Thromboplast Time 27 SEC (23-33) Chemistry Test 02/20/19 10:00 Sodium Level 140 MMOL/L (136-145) Potassium Level 4.7 MMOL/L (3.5-5.1) Chloride Level 101 MMOL/L (98-107) Carbon Dioxide Level 32 MMOL/L (21-32) Anion Gap 7 mmol/L (5-15) Blood Urea Nitrogen 39 mg/dL (7-18) H Creatinine 6.4 MG/DL (0.55-1.30) H Estimat Glomerular Filtration Rate 7.9 mL/min (>60) Glucose Level 129 MG/DL (74-106) H Calcium Level 9.6 MG/DL (8.5-10.1) Risk Assessment & Plan Assessment: ASA 3 Plan: GA with LMA Status Change Before Surgery: No Pre-Antibiotics Drug: Ancef 1gr. Given Within 1 Hr of Incision: Yes Time Given: 13:40 Sang Love MD February 20, 2019 12:01
[2019-02-20] MEDS ORDERED: Heparin 1000 units/ml 1ml Vial ONE (12:41)
[2019-02-20] MEDS ORDERED: Heparin 5000 units/ml inj ONE (12:41)
[2019-02-20] MEDS ORDERED: Bacitracin Oint 15gm Tube TOPIC ONE (12:41)
[2019-02-20] MEDS ORDERED: Isovue-M 300 15ml INJ ONE (12:41)
[2019-02-20] MEDS ORDERED: Lidocaine 1% 10mg/ml/Epi 0.005mg/ml 30ml vial INJ ONE (12:41)
[2019-02-20] MEDS ORDERED: Bacitracin 50000 Units Vial ONE (12:42)
[2019-02-20] MEDS ORDERED: Bupivacaine w/Epi 0.5% 30ml Vial INJ ONE (12:42)
--- NOTE | 2019-02-20 12:53 | Pre-Procedure Note/Attestation ---
Pre-Procedure Note/Attestation Complete Prior to Procedure Planned Procedure: left Procedure Narrative: left arm fistulogram, possible intervention Indications for Procedure Pre-Operative Diagnosis: AVF malfunction; ESRD Attestation I attest that I discussed the nature of the procedure; its benefits; risks and complications; and alternatives (and the risks and benefits of such alternatives ), prior to the procedure, with the patient (or the patient's legal apprenticeship training representative). I attest that, if there was a reasonable possibility of needing a blood transfusion, the patient (or the patient's legal apprenticeship training representative) was given the [facility] standardized written summary, pursuant to the Alvaro Judit Blood Safety Act ([place] Health and Safety Code # 1645, as amended). I attest that I re-evaluated the patient just prior to the surgery and that there has been no change in the patient's H&P, except as documented below: Eben Fam MD February 20, 2019 12:53
[2019-02-20] MEDS ORDERED: Lidocaine 1% Plain 30 ml INJ ONE (13:00)
[2019-02-20] MEDS ORDERED: Sterile Water Irrig 1000ml IRRIG ONE (13:00)
[2019-02-20] MEDS ORDERED: NS Irrig 1000ml ONE (13:00)
[2019-02-20] MEDS ORDERED: NS Irrig 1000ml IRRIG ONE (13:15)
--- NOTE | 2019-02-20 13:28 | History & Physical ---
History and Physical History & Physicial H&P completed. Dict # [id number] Danie Banegas MD February 20, 2019 13:28
[2019-02-20] MEDS ORDERED: Omnipaque-300 100ml vial INJ ONE (14:04)
[2019-02-20] MEDS ORDERED: Heparin Sod 1000 units/ml 10ml ONE ×2 (14:43→15:49)
--- NOTE | 2019-02-20 15:17 | Immediate Post-Op Evaluation ---
Immediate Post-Op Evalulation Immediate Post-Op Evalulation Procedure: Revision of L arm a/v fistula angioplasty, stent placement Date of Evaluation: February 20, 2019 Time of Evaluation: 15:16 IV Fluids: 300 Blood Products: none Estimated Blood Loss: <50 Urinary Output: none Blood Pressure Systolic: 134 Blood Pressure Diastolic: 56 Pulse Rate: 60 Respiratory Rate: 20 O2 Sat by Pulse Oximetry: 99 Temperature (Fahrenheit): 97.8 Pain Score (1-10): 1 Nausea: No Vomiting: No Complications none Patient Status: reacts, patent, none Hydration Status: adequate Sang Love MD February 20, 2019 15:17
[2019-02-20] MEDS ORDERED: Hydromorphone 0.5mg/0.5ml inj IVP PRN (15:34)
[2019-02-20] MEDS ORDERED: Ketorolac 30mg Inj IV PRN (15:34)
[2019-02-20] MEDS ORDERED: DiphenhydrAMINE 50mg/ml Inj IVP PRN (15:35)
--- NOTE | 2019-02-20 15:52 | 48 Hour Post Anesthesia Eval ---
Post Anesthesia Evaluation Procedure: Revision of L arm a/v fistula angioplasty, stent placement Date of Evaluation: February 20, 2019 Time of Evaluation: 15:51 Blood Pressure Systolic: 128 0: 56 Pulse Rate: 60 Respiratory Rate: 20 Temperature (Fahrenheit): 97.6 O2 Sat by Pulse Oximetry: 98 Nausea: No Vomiting: No Pain Intensity: 1 Hydration Status: adequate Cardiopulmonary Status: stable Mental Status/LOC: patient returned to baseline Follow-up Care/Observations: n/a Post-Anesthesia Complications: none Follow-up care needed: ready to discharge Sang Love MD February 20, 2019 15:52
--- NOTE | 2019-02-20 15:56 | Brief Operative Note ---
Immediate Post Operative Note Operative Note Pre-op Diagnosis: AVF malfunction; ESRD Procedure: Left arm fistulogram with angioplasty/stent placement Post-op Diagnosis: same as pre-op Findings: consistent w/pre-op dx studies Surgeon: Mann Fam Anesthesiologist: Roselyn Love Anesthesia: general Specimen: none Complications: none Condition: stable Fluids: see anesth. record Estimated Blood Loss: minimal Drains: none Implant(s) used?: Yes - stent in left axillary vein Eben Fam MD February 20, 2019 15:56
[2019-02-20] MEDS ORDERED: Heparin Sod 1000 units/ml 10ml INJ ONE (16:45)
--- NOTE | 2019-02-20 20:01 | History and Physical Report ---
DATE OF ADMISSION: 02/20/2019 HISTORY OF PRESENT ILLNESS: The patient is a pleasant 68-year-old female with a history of end-stage renal disease, on hemodialysis. The patient has been transferred from the group home facility regarding the AV fistula malfunction. The patient is currently receiving dialysis through a temporary PermCath. Today, the patient denies any chest pain or shortness of breath. No nausea. No vomitus. No diarrhea. No constipation. PAST MEDICAL HISTORY: Diabetes, CVA, paraparesis, and end-stage renal disease. ALLERGIES: Penicillin. MEDICATIONS: Current hospital medications including, but not limited to lisinopril, hydralazine, aspirin, and amiodarone. SOCIAL HISTORY: The patient has a daughter who is involved in the care, is residing in the group home facility. No prior history of illicit drug abuse, smoking, or alcohol abuse. PHYSICAL EXAMINATION: VITAL SIGNS: Blood pressure 130/80, temperature 98.2, pulse oximetry 98% on room air, and pulse rate 60 to 65. HEAD AND NECK: Atraumatic and normocephalic. CHEST: Clear to auscultation. HEART: S1, S2. Regular rate and rhythm. Bradycardic. MUSCULOSKELETAL: No gross lateralized motor deficit, paraparesis. NEUROLOGIC: The patient is awake and alert x1-2. LABORATORY AND DIAGNOSTIC DATA: Labs dated 02/20/2019, WBC 5.4, hemoglobin 12.2. Sodium 140, potassium 4.7, BUN 39, and creatinine 6.4. ASSESSMENT: 1. End-stage renal disease, on temporary PermCath hemodialysis access. 2. Paroxysmal atrial fibrillation, rate is stable. 3. Diabetes type 2. 4. Hypertension. 5. Hyperlipidemia. 6. CVA-history. 7. Dementia. 8. Gastrointestinal and deep vein thrombosis prophylaxes. PLAN OF CARE: Notify Dr. Fam. We will notify with the insertions of the permanent access for the hemodialysis. We will consult Nephrology, Dr. Stephenson. Danie Banegas M.D. DR: DOMI JOB#: [id number] CC:
--- NOTE | 2019-02-21 16:45 | Operative Note - Dictated ---
DATE OF OPERATION: 02/20/2019 PREOPERATIVE DIAGNOSES: 1. Malfunctioning dialysis arteriovenous fistula in the left upper extremity. 2. End-stage renal disease. POSTOPERATIVE DIAGNOSES: 1. Malfunctioning dialysis arteriovenous fistula in the left upper extremity. 2. End-stage renal disease. FINDINGS: Below. PROCEDURES: 1. Left arterialized basilic vein arteriovenous fistula access and introducer sheath placement in the venous outflow direction. 2. Catheterization via AV fistula in the left arm with the catheter tip in the left innominate vein. 3. Left arm dialysis fistulogram. 4. Selective superior vena cavogram. 5. Placement of a stent in the left axillary vein ([employer] 12 mm x 4 cm). 6. Percutaneous transluminal balloon angioplasty (CAMERA MACHINIST) of the left subclavian vein ([employer] 10 mM x 4 cm). 7. CAMERA MACHINIST of the AV fistula ([employer] 8 mm x 4 cm). 8. CAMERA MACHINIST of left axillary vein ([employer] 10 mm x 4 cm). 9. CAMERA MACHINIST of the left innominate vein ([employer] 10 mm x 4 cm). 10. Primary surgical repair of the arterialized basilic vein AV fistula access site. 11. Intraoperative ultrasound. 12. Digital subtraction angiography. 13. Supervision and interpretation of angiogram and intervention. 14. Balloon angioplasty. 15. CAMERA MACHINIST of the left brachial vein ([employer] 8 mm x 4 cm). SURGEON: Rivera Salazar M.D. ANESTHESIA: General. ANESTHESIOLOGIST: Snag Love M.D. INDICATION: The patient has an AV fistula in the left arm, which is patent but has not been successfully acceptable and a fistulogram was recommended. INTRAOPERATIVE FINDINGS/INTERPRETATION OF THE RESULTS: The inflow from the brachial artery anastomosis is widely patent. The outflow through the transposed basilic vein is patent, however, there is moderately stenotic segment at its transition into the axillary vein and brachial vein and the flow beyond this into the subclavian vein is patent, however, there is a mild stenosis at the junction with the subclavian vein and the subclavian vein junction with the innominate vein has further moderate stenosis. There is a pacemaker in place with wires placed in the left subclavian vein. The superior vena cava is widely patent. The existing catheter from the right jugular vein had a tip of atriocaval junction. After the intervention was described below, the completion angiogram showed satisfactory results with widely patent segments that were treated and brisk flow of contrast from the AV fistula into the central veins on the completion angiogram. There was a good thrill present in the AV fistula on the ipsilateral radial pulses present at the left breast level at the end of the procedure. PROCEDURE IN DETAIL: With the patient in supine position, after left upper extremity was prepped and draped in usual sterile fashion, skin was infiltrated with local anesthetic and the AV fistula was accessed from the venous site near the arterial anastomosis with a micropuncture needle using a single wall puncture modified Seldinger technique. A wire was advanced in the venous outflow direction and the needle removed. Over the wire, a micropuncture introducer sheath and dilator were placed coaxial into the vessel and the wire and dilator removed with good arterial backbleeding noted from the sheath, which was flushed with heparinized saline and then serial boluses of contrast were administered for digital subtraction images of the AV fistula inflow and outflow and the above findings were noted. The patient was given a bolus of intravenous heparin and a sheath was exchanged over a wire for a regular 6-Greek sheath and regular 7-Greek sheath. Once the wire was placed across this segments to be treated, they were first dilated with a corresponding balloon catheters and the interval angiogram showed residual stenosis in the axillary vein requiring the placement of the stent, which was positioned in a standard fashion and deployed and then further dilated with a balloon catheter listed above. The completion angiogram showed satisfactory results as described above and the sheath was removed and the puncture sites repaired with the primary suture of 5-0 Prolene. Good hemostasis obtained. Sterile dressings were placed and the patient was transferred out of the room in stable condition. She tolerated procedure well. ESTIMATED BLOOD LOSS: Minimal. COMPLICATIONS: None. DRAINS: None. TOTAL FLUOROSCOPY TIME: 343 seconds. TOTAL CONTRAST: 40 mL. Rivera Salazar M.D. DR: JR JOB#: [id number] CC: Danie Banegas M.D.; Fax#: [phone] Manas Stephenson M.D. RIVERA SALAZAR M.D.; FAX#: [phone]
--- NOTE | 2019-02-24 19:48 | Cardiology Report ---
APPROVED REPORT EKG Measurement Heart [id number] Atrial paced ventricular sensed rhythm Nonspecific T wave abnormality Prolonged QT Abnormal ECG
== END 2019-02-20 17:15 | disposition home or self-care (01) ==
LOC: SUR 08:18
DX: T82.41XA Breakdown (mechanical) of vascular dialysis catheter, initial encounter (principal); E11.22 Type 2 diabetes mellitus with diabetic chronic kidney disease; I12.0 Hypertensive chronic kidney disease with stage 5 chronic kidney disease or end stage renal disease; N18.6 End stage renal disease; I48.0 Paroxysmal atrial fibrillation; E78.5 Hyperlipidemia, unspecified; F03.90 Unspecified dementia, unspecified severity, without behavioral disturbance, psychotic disturbance, mood disturbance, and anxiety; G82.20 Paraplegia, unspecified; Z79.82 Long term (current) use of aspirin; Z79.899 Other long term (current) drug therapy; Z95.0 Presence of cardiac pacemaker; E66.01 Morbid (severe) obesity due to excess calories; F41.9 Anxiety disorder, unspecified; G47.33 Obstructive sleep apnea (adult) (pediatric); F32.9 Major depressive disorder, single episode, unspecified; Z99.2 Dependence on renal dialysis; Z86.73 Personal history of transient ischemic attack (TIA), and cerebral infarction without residual deficits; Z88.0 Allergy status to penicillin; Z68.39 Body mass index [BMI] 39.0-39.9, adult; X58.XXXA Exposure to other specified factors, initial encounter; Y92.9 Unspecified place or not applicable
CPT/HCPCS: 36415; 36903; 76000; 80048; 82962; 85025; 85610; 85730; 93005; J0690; J1644; J2001; J2250; J2704; J3010; Q9965; Q9967; 94003; 94150

== ENCOUNTER 2019-04-04 17:34 | Inpatient (IN) | payer MEDICARE, OTHER ==
[~2019-04-04] VITALS: Ht 165.1 cm; Wt 103.9 kg
[~2019-04-04 17:34] MED LIST changes: +AMIODARONE HCL400 M1 ORAL; +NORCO 5-325 TA1 EACH ORAL; +RENVELA0.8 GM ORAL; +VITAMIN D-40400 UNIT ORAL; +[UNRECOGNIZED DRUG - OTHER] PO
[2019-04-04] MEDS ORDERED: ARTIFICIAL TEAR15 ML BOTH EYES (18:00)
[2019-04-04] MEDS ORDERED: PRO-STAT LIQUID30 ML ORAL (18:00)
[2019-04-04] MEDS ORDERED: FEROSUL325 M1 PO (18:00)
--- NOTE | 2019-04-04 18:08 | Emergency Room Report ---
History of Present Illness General Chief Complaint: Skin Rash/Abscess Source: Patient, Medical Record Present Illness HPI Patient presents with complaints of discomfort to her left heel reports that she has been dealing with this for over the past 7 days she has a special boot receiving pain medication she reports that there was increased discharge from that region earlier today Denies any fevers or chills denies any chest pain or shortness of breath denies any calf pain or swelling Allergies: Coded Allergies: PENICILLINS (Verified Allergy, Unknown, 11/10/09) Patient History Past Medical History: see triage record Pertinent Family History: none Reviewed Nursing Documentation: PMH: Agreed; PSxH: Agreed Nursing Documentation-PMH Hx Cardiac Problems: Yes Hx Hypertension: Yes Hx Pacemaker: Yes - left chest Hx Asthma: Yes Hx COPD: Yes Hx Diabetes: Yes - type 2 Hx Cancer: No Hx Gastrointestinal Problems: No Hx Dialysis: Yes - mon, , sun dialysis. right chest dialysis catheter Hx Neurological Problems: Yes Hx Cerebrovascular Accident: Yes - LEFT SIDE WEAKNESS Hx Weakness: Yes Review of Systems All Other Systems: negative except mentioned in HPI Physical Exam Vital Signs Date Time Temp Pulse Resp B/P (MAP) Pulse Ox O2 Delivery O2 Flow Rate FiO2 04/04/19 17:47 98.8 60 18 114/56 (75) 93 Room Air Sp02 EP Interpretation: reviewed, normal General Appearance: well appearing, no apparent distress Head: normocephalic, atraumatic Eyes: bilateral eye PERRL, bilateral eye EOMI ENT: hearing grossly normal, normal pharynx, no angioedema Neck: supple Respiratory: lungs clear Cardiovascular #1: regular rate, rhythm Gastrointestinal: non tender, soft Genitourinary: no CVA tenderness Musculoskeletal: other - Limited mobility, no obvious focal deficit in the upper extremity Neurologic: alert, oriented x3, responsive Skin: other - Left heel is evaluated after removing her shoe there is some increased fullness in the heel itself and patient is very tender to touch mild erythema as well Lymphatic: no adenopathy Medical Decision Making Diagnostic Impression: Primary Impression: Cellulitis of left foot Additional Impression: Diabetic nephropathy ER Course Multiple differentials and consideration Including but not limited to orthopedic, infectious, electrolyte abnormalities Patient's blood work is at baseline levels The area of the heel does not show an obvious open wound at this time however there is some fullness and swelling and patient will have continued evaluation Labs Test 04/04/19 18:25 04/04/19 19:25 04/05/19 05:25 White Blood Count 6.8 K/UL (4.8-10.8) Red Blood Count 3.57 M/UL (4.20-5.40) Hemoglobin 11.7 G/DL (12.0-16.0) Hematocrit 36.2 % (37.0-47.0) Mean Corpuscular Volume 102 FL (80-99) Mean Corpuscular Hemoglobin 32.9 PG (27.0-31.0) Mean Corpuscular Hemoglobin Concent 32.4 G/DL (32.0-36.0) Red Cell Distribution Width 14.2 % (11.6-14.8) Platelet Count 207 K/UL (150-450) Mean Platelet Volume 7.6 FL (6.5-10.1) Neutrophils (%) (Auto) 55.3 % (45.0-75.0) Lymphocytes (%) (Auto) 29.2 % (20.0-45.0) Monocytes (%) (Auto) 11.6 % (1.0-10.0) Eosinophils (%) (Auto) 2.2 % (0.0-3.0) Basophils (%) (Auto) 1.8 % (0.0-2.0) Hemoglobin A1c 5.6 % (4.3-6.0) Lactic Acid Level 1.00 mmol/L (0.4-2.0) Creatine Kinase MB 0.9 NG/ML (0.0-3.6) Sodium Level 141 MMOL/L (136-145) Potassium Level 5.6 MMOL/L (3.5-5.1) Chloride Level 102 MMOL/L (98-107) Carbon Dioxide Level 34 MMOL/L (21-32) Anion Gap 6 mmol/L (5-15) Blood Urea Nitrogen 39 mg/dL (7-18) Creatinine 5.7 MG/DL (0.55-1.30) Estimat Glomerular Filtration Rate 8.8 mL/min (>60) Glucose Level 109 MG/DL (74-106) Calcium Level 9.5 MG/DL (8.5-10.1) Total Bilirubin 0.3 MG/DL (0.2-1.0) Aspartate Amino Transf (AST/SGOT) 18 U/L (15-37) Alanine Aminotransferase (ALT/SGPT) 18 U/L (12-78) Alkaline Phosphatase 53 U/L (46-116) Total Protein 6.7 G/DL (6.4-8.2) Albumin 3.5 G/DL (3.4-5.0) Globulin 3.2 g/dL Albumin/Globulin Ratio 1.1 (1.0-2.7) Rhythm Strip Diag. Results EP Interpretation: yes Rate: 66 Rhythm: NSR, no PVC's, no ectopy Other X-Ray Diagnostic Results Other X-Ray Diagnostic Results : X-Ray ordered: Left foot # of Views/Limited Vs Complete: 2 View Indication: Pain EP Interpretation: Yes Interpretation: no dislocation, no soft tissue swelling, no fractures Impression: No acute disease Electronically Signed by: Kodak Ha DO Last Vital Signs Date Time Temp Pulse Resp B/P (MAP) Pulse Ox O2 Delivery O2 Flow Rate FiO2 04/04/19 17:47 98.8 60 18 114/56 (75) 93 Room Air Status: improved Disposition: ADMITTED INPATIENT Condition: Serious Kodak Ha DO Apr 04, 2019 18:08
--- NOTE | 2019-04-04 18:36 | Diagnostic Imaging Report ---
EXAM: XR Left Foot Complete, 3 or More Views CLINICAL HISTORY: PAIN TECHNIQUE: Frontal, lateral and oblique views of the left foot. COMPARISON: No relevant prior studies available. FINDINGS: Bones/joints: No acute fracture or malalignment. Diffuse osteopenia. Soft tissues: Unremarkable. No radiopaque foreign body. Vasculature: Vascular calcifications. IMPRESSION: No acute fracture or malalignment.
[2019-04-04 18:42] VITALS: BP 114/56
--- NOTE | 2019-04-04 18:42 | NUR ---
ED Nurse Note:pt. was BIBA from SNF with left heel sore and discoloration possible cellulitis, pt. is dialysisMWF, last time had on with right chest permacath, blood was sent to labs
[2019-04-04 18:51] LABS: BASOPHILS % (AUTO) 1.8 % (0.0-2.0); EOSINOPHILS % (AUTO) 2.2 % (0.0-3.0); HEMATOCRIT 36.2 % (37.0-47.0); HEMOGLOBIN 11.7 G/DL (12.0-16.0); LYMPHOCYTES % (AUTO) 29.2 % (20.0-45.0); MEAN CORPUSCULAR VOLUME 102 FL (80-99); MONOCYTES % (AUTO) 11.6 % (1.0-10.0); NEUTROPHILS % (AUTO) 55.3 % (45.0-75.0); PLATELET COUNT 207 K/UL (150-450); RED BLOOD COUNT 3.57 M/UL (4.20-5.40); RED CELL DISTRIBUTION WIDTH 14.2 % (11.6-14.8); WHITE BLOOD COUNT 6.8 K/UL (4.8-10.8)
--- NOTE | 2019-04-04 19:05 | NUR ---
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
--- NOTE | 2019-04-04 19:25 | NUR ---
ED Nurse Note: REPEAT CHEMISTRY DRAWN.
--- NOTE | 2019-04-04 19:45 | NUR ---
ED Nurse Note: BELONGINGS SHEET COMPLETED AND PCITURES TAKED OF WOUNDS AT LEFT HEAL AND SACRUM.
[2019-04-04 19:51] LABS: ANION GAP 6 mmol/L (5-15); BLOOD UREA NITROGEN 39 mg/dL (7-18); CALCIUM 9.5 MG/DL (8.5-10.1); CARBON DIOXIDE 34 MMOL/L (21-32); CHLORIDE 102 MMOL/L (98-107); CREATININE 5.7 MG/DL (0.55-1.30); POTASSIUM 5.6 MMOL/L (3.5-5.1); SODIUM 141 MMOL/L (136-145)
[2019-04-04 19:58] LABS: ALANINE AMINOTRANSFERASE 18 U/L (12-78); ALBUMIN 3.5 G/DL (3.4-5.0); ALBUMIN/GLOBULIN RATIO 1.1 (1.0-2.7); ALKALINE PHOSPHATASE 53 U/L (46-116); ASPARTATE AMINO TRANSFERASE 18 U/L (15-37); BILIRUBIN,TOTAL 0.3 MG/DL (0.2-1.0)
--- NOTE | 2019-04-04 21:16 | NUR ---
ED Nurse Note: CALLED AND GAVE REPORT TO NANCI BEAN. PATIENT HAS DAUGHTER AT BEDSIDE AND IS AWAITING TRANSPORT TO FLOOR.
[2019-04-04 21:30] VITALS: BP 112/60
--- NOTE | 2019-04-04 21:30 | NUR ---
Pt newly admitted from ER via [facility] with diagnosis of Ceullitis on left foot. Pt is awake and alert. Breathing is even and non labored. No acute distress noted. No pain noted. Bed ridden state with left side weakness from previous CVA attack. Brace on left foot for support. Right forearm has IV site 22 gauze without infiltration, patent and intact. Hx of pacemaker, right upper chest area perma cath inserted, left upper arm AV shunt site clear and thrill and bruit are intact. Incontinent bowel and urine. Skin assessment is done. Noted old scattered pressure injuries inside thighs near inguneal area and skin abrasion a sixe of a hood close to right inguneal. Clean out skin and dry. Checked pt's belongings and signed. Orientated facility uses. Leave call light within reach. Bed is locked and lowest position. Will contact Dr. Banegas to verify admission orders. Will continue to monitor.
--- NOTE | 2019-04-04 23:00 | NUR ---
NURSE NOTES: Receive a call from Dr. Banegas and verify admission orders. Order noted and carried out. Will continue to monitor.
[2019-04-04] MEDS ORDERED: HydrALAZINE 25mg tab ORAL PRN (23:15)
[2019-04-04] MEDS ORDERED: HYDROcodone/Acetamin 5/325 tab ORAL PRN (23:15)
[2019-04-04] MEDS ORDERED: Albuterol ud Inhalation HHN PRN (23:15)
[2019-04-05] VITALS (7 sets, daily range): BP systolic 111–124; BP diastolic 44–57
[2019-04-05] MEDS ORDERED: Vancomycin 275 ML IVPB SCH (02:00)
[2019-04-05] MEDS: NovoLOG Insulin Flexpen SUBQ SCH ×4 (06:30→21:23)
[2019-04-05 07:05] LABS: BASOPHILS % (AUTO) 1.3 % (0.0-2.0); EOSINOPHILS % (AUTO) 2.2 % (0.0-3.0); HEMATOCRIT 32.6 % (37.0-47.0); HEMOGLOBIN 10.3 G/DL (12.0-16.0); LYMPHOCYTES % (AUTO) 24.1 % (20.0-45.0); MEAN CORPUSCULAR VOLUME 103 FL (80-99); MONOCYTES % (AUTO) 12.5 % (1.0-10.0); NEUTROPHILS % (AUTO) 59.8 % (45.0-75.0); PLATELET COUNT 200 K/UL (150-450); RED BLOOD COUNT 3.16 M/UL (4.20-5.40); RED CELL DISTRIBUTION WIDTH 14.6 % (11.6-14.8); WHITE BLOOD COUNT 6.2 K/UL (4.8-10.8)
[2019-04-05 07:21] LABS: ALANINE AMINOTRANSFERASE 15 U/L (12-78); ALBUMIN 3.3 G/DL (3.4-5.0); ALKALINE PHOSPHATASE 52 U/L (46-116); ANION GAP 6 mmol/L (5-15); ASPARTATE AMINO TRANSFERASE 15 U/L (15-37); BILIRUBIN,TOTAL 0.3 MG/DL (0.2-1.0); BLOOD UREA NITROGEN 46 mg/dL (7-18); CALCIUM 9.6 MG/DL (8.5-10.1); CARBON DIOXIDE 31 MMOL/L (21-32); CHLORIDE 103 MMOL/L (98-107); CREATININE 6.4 MG/DL (0.55-1.30); POTASSIUM 5.8 MMOL/L (3.5-5.1); SODIUM 140 MMOL/L (136-145)
--- NOTE | 2019-04-05 07:25 | NUR ---
HAND-OFF: Report given to Zeeshan Robles RN.
--- NOTE | 2019-04-05 07:30 | NUR ---
NURSE NOTES: Patient lying in bed awake. No complain of pain or distress at this time. IV dressing intact and dry. Bed lowest position. Both legs elevated. Call light within reach. Will continue to monitor.
[2019-04-05] MEDS ORDERED: Docusate 100mg cap ORAL SCH (09:00)
[2019-04-05] MEDS ORDERED: Lisinopril 20mg tab ORAL SCH (09:00)
[2019-04-05] MEDS ORDERED: Heparin 5000 units/ml inj SUBQ SCH (09:00)
[2019-04-05] MEDS ORDERED: Amiodarone 200mg tab ORAL SCH (09:00)
[2019-04-05] MEDS: Aspirin Baby 81mg ORAL SCH (10:00)
[2019-04-05] MEDS: Artificial Tears 1.4% Op Soln BOTH EYES SCH (10:00)
[2019-04-05] MEDS: Renvela 800mg Pkt ORAL SCH ×3 (10:00→17:30)
--- NOTE | 2019-04-05 10:19 | Consultation ---
Consult Note Consult Note asked to eval for dialysis management Patient under my care for her dialysis related matters has right permacathand left shunt ER: Patient presents with complaints of discomfort to her left heel reports that she has been dealing with this for over the past 7 days she has a special boot receiving pain medication she reports that there was increased discharge from that region earlier today Denies any fevers or chills denies any chest pain or shortness of breath denies any calf pain or swelling Allergies: PENICILLINS (Verified Allergy, Unknown, 11/10/09) Hx Cardiac Problems: Yes Hx Hypertension: Yes Hx Pacemaker: Yes - left chest Hx Asthma: Yes Hx COPD: Yes Hx Diabetes: Yes - type 2 Hx Dialysis: Yes - sun, , sun dialysis. right chest dialysis catheter Hx Neurological Problems: Yes Hx Cerebrovascular Accident: Yes - LEFT SIDE WEAKNESS Hx Weakness: Yes interviewed examined data reviewed discussed with research and development director/Plan Admitted with left heel ulcer / cellulitis Other conditions: - ESRD (end stage renal disease) - Diabetic nephropathy - Bradycardia - Diabetic nephropathy - h/o Anemia of CKD - HTN (hypertension) - h/o At fib - CVA left weakness Plan: HD today for high K Adjust BP meds Podiatry / Vasc surgical Manas Martinez MD Apr 05, 2019 10:19
--- NOTE | 2019-04-05 11:24 | NUR ---
NURSE NOTES: Called [facility] and spoke to Wanda. Wanda will call dialysis nurse to schedule.
[2019-04-05] MEDS: Docusate 100mg cap ORAL SCH ×2 (13:00→17:30)
[2019-04-05] MEDS ORDERED: Tubing IV Secondary IV ONE (13:18)
[2019-04-05] MEDS ORDERED: NS 500ML ONE (13:18)
--- NOTE | 2019-04-05 14:08 | Infectious Diseases Prog Note ---
Assessment/Plan Problems: (1) Cellulitis of left foot Assessment & Plan: with superficial wound , keep off loading continue vancomycin , local wound care and dressings (2) Heel abrasion Assessment & Plan: suspect due to local pressure , continue antibiotics and off loading (3) ESRD (end stage renal disease) Assessment & Plan: continue HD as per renal Subjective Allergies: Coded Allergies: PENICILLINS (Verified Allergy, Unknown, 11/10/09) Objective Vital Signs Last 24 Hour Vital Signs Date Time Temp Pulse Resp B/P (MAP) Pulse Ox O2 Delivery O2 Flow Rate FiO2 04/05/19 12:00 98.1 65 15 111/53 (72) 98 04/05/19 09:18 65 18 94 Room Air 04/05/19 09:00 Room Air 04/05/19 08:00 98.3 62 15 114/44 (67) 98 04/05/19 04:00 99.2 61 18 118/57 (77) 94 04/05/19 00:00 99.6 62 18 124/54 (77) 94 04/04/19 22:00 Room Air 04/04/19 21:30 98.8 62 20 112/60 (77) 95 04/04/19 21:17 98.8 78 18 114/56 93 Room Air 04/04/19 18:42 98.8 78 18 114/56 93 Room Air 04/04/19 17:47 98.8 60 18 114/56 (75) 93 Room Air Height (Feet): 5 Height (Inches): 5.00 Weight (Pounds): 229 Microbiology Date/Time Source Procedure Growth Status 04/04/19 21:00 Rectum Received Laboratory Tests Test 04/04/19 18:25 04/04/19 19:25 04/05/19 05:25 White Blood Count 6.8 K/UL (4.8-10.8) 6.2 K/UL (4.8-10.8) Red Blood Count 3.57 M/UL (4.20-5.40) L 3.16 M/UL (4.20-5.40) L Hemoglobin 11.7 G/DL (12.0-16.0) L 10.3 G/DL (12.0-16.0) L Hematocrit 36.2 % (37.0-47.0) L 32.6 % (37.0-47.0) L Mean Corpuscular Volume 102 FL (80-99) H 103 FL (80-99) H Mean Corpuscular Hemoglobin 32.9 PG (27.0-31.0) H 32.5 PG (27.0-31.0) H Mean Corpuscular Hemoglobin Concent 32.4 G/DL (32.0-36.0) 31.5 G/DL (32.0-36.0) L Red Cell Distribution Width 14.2 % (11.6-14.8) 14.6 % (11.6-14.8) Platelet Count 207 K/UL (150-450) 200 K/UL (150-450) Mean Platelet Volume 7.6 FL (6.5-10.1) 6.9 FL (6.5-10.1) Neutrophils (%) (Auto) 55.3 % (45.0-75.0) 59.8 % (45.0-75.0) Lymphocytes (%) (Auto) 29.2 % (20.0-45.0) 24.1 % (20.0-45.0) Monocytes (%) (Auto) 11.6 % (1.0-10.0) H 12.5 % (1.0-10.0) H Eosinophils (%) (Auto) 2.2 % (0.0-3.0) 2.2 % (0.0-3.0) Basophils (%) (Auto) 1.8 % (0.0-2.0) 1.3 % (0.0-2.0) Hemoglobin A1c 5.6 % (4.3-6.0) Lactic Acid Level 1.00 mmol/L (0.4-2.0) Creatine Kinase MB 0.9 NG/ML (0.0-3.6) Sodium Level 141 MMOL/L (136-145) 140 MMOL/L (136-145) Potassium Level 5.6 MMOL/L (3.5-5.1) H 5.8 MMOL/L (3.5-5.1) H Chloride Level 102 MMOL/L (98-107) 103 MMOL/L (98-107) Carbon Dioxide Level 34 MMOL/L (21-32) H 31 MMOL/L (21-32) Anion Gap 6 mmol/L (5-15) 6 mmol/L (5-15) Blood Urea Nitrogen 39 mg/dL (7-18) H 46 mg/dL (7-18) H Creatinine 5.7 MG/DL (0.55-1.30) H 6.4 MG/DL (0.55-1.30) H Estimat Glomerular Filtration Rate 8.8 mL/min (>60) 7.9 mL/min (>60) Glucose Level 109 MG/DL (74-106) H 128 MG/DL (74-106) H Calcium Level 9.5 MG/DL (8.5-10.1) 9.6 MG/DL (8.5-10.1) Total Bilirubin 0.3 MG/DL (0.2-1.0) 0.3 MG/DL (0.2-1.0) Aspartate Amino Transf (AST/SGOT) 18 U/L (15-37) 15 U/L (15-37) Alanine Aminotransferase (ALT/SGPT) 18 U/L (12-78) 15 U/L (12-78) Alkaline Phosphatase 53 U/L (46-116) 52 U/L (46-116) Total Protein 6.7 G/DL (6.4-8.2) 6.5 G/DL (6.4-8.2) Albumin 3.5 G/DL (3.4-5.0) 3.3 G/DL (3.4-5.0) L Globulin 3.2 g/dL 3.2 g/dL Albumin/Globulin Ratio 1.1 (1.0-2.7) 1.0 (1.0-2.7) Current Medications Medications (Trade) Dose Ordered Sig/Jesus Route PRN Reason Start Time Stop Time Status Last Admin Dose Admin Acetaminophen (Tylenol) 650 mg Q4H PRN ORAL For Pain 04/04/19 23:15 05/04/19 23:14 Acetaminophen/ Hydrocodone Bitart (Wann 5/325) 1 tab Q4H PRN ORAL For Pain 04/04/19 23:15 04/11/19 23:14 Albuterol Sulfate (Proventil) 2.5 mg Q6H PRN HHN wheezing 04/04/19 23:15 04/09/19 23:14 Apixaban (Eliquis) 2.5 mg BID ORAL 04/05/19 18:00 05/05/19 17:59 Artificial Tears (Akwa-Tears) 1 drop DAILY BOTH EYES 04/05/19 09:00 05/05/19 08:59 04/05/19 10:00 Aspirin (ASA) 81 mg DAILY ORAL 04/05/19 09:00 05/05/19 08:59 04/05/19 10:00 Atorvastatin Calcium (Lipitor) 10 mg BEDTIME ORAL 04/05/19 21:00 05/05/19 20:59 Dextrose (Dextrose 50%) 25 ml Q30M PRN IV Hypoglycemia 04/04/19 23:15 05/04/19 23:14 Dextrose (Dextrose 50%) 50 ml Q30M PRN IV Hypoglycemia 04/04/19 23:15 05/04/19 23:14 Docusate Sodium (Colace) 100 mg TID ORAL 04/05/19 13:00 05/05/19 08:59 Gabapentin (Neurontin) 100 mg TID ORAL 04/05/19 13:00 05/05/19 08:59 04/05/19 13:52 Heparin Sodium (Porcine) (Heparin 5000 units/ml) 5,000 units EVERY 12 HOURS SUBQ 04/05/19 09:00 04/05/19 17:59 04/05/19 10:06 Hydralazine HCl (Apresoline) 25 mg Q4H PRN ORAL SBP > 160 mm Hg 04/04/19 23:15 05/04/19 23:14 Insulin Aspart (NovoLOG) BEFORE MEALS AND HS SUBQ 04/05/19 06:30 05/05/19 06:29 04/05/19 12:08 Lisinopril (Zestril) 10 mg DAILY ORAL 04/06/19 09:00 05/05/19 08:59 Sevelamer Carbonate (Renvela) 800 mg THREE TIMES A DAY ORAL 04/05/19 09:00 05/05/19 08:59 04/05/19 10:00 Vancomycin HCl (Vanco rx to dose) 1 ea DAILY PRN MISC Per rx protocol 04/04/19 23:15 05/04/19 23:14 Fide Herr M.D. Apr 05, 2019 14:08
--- NOTE | 2019-04-05 14:42 | NUR ---
CASE MANAGEMENT: INITIAL REVIEW 68 YO F ANDREA FROM [facility] CC: SKIN RASH PMHx: HTN. PACER. ASTHMA. COPD. ASTHMA. DM2. CVA. HD MTW. ESRD. SI:LEFT FOOT CELLULITIS. T 98.8 HR 60 RR 18 B/P 114/56 SATS 93% ON RA K 5.6 CO2 34 BUN 39 CR 5.7 GLU 109 IS: VANCO IV X1 NS BOLUS X1 PATIENT ADMITTED TO MED/SURG 04/04/2019 @ 8251 DCP: PATIENT TO BE DISCHARGED TO HOME ONCE MEDICALLY CLEARED. PLAN OF CARE: NATHANAEL INPT LOCAL WOUND CARE Addendum: 04/07/19 at 1757 by Catrina Knight CM INTERQUAL MET
--- NOTE | 2019-04-05 16:59 | NUR ---
NURSE NOTES: Patient requested for anxiety medication before dialysis. Spoke to regarding anxiety medication and new order received. Order read back and carried out.
[2019-04-05] MEDS: LORazepam 1mg tab ORAL PRN (17:23)
[2019-04-05] MEDS: Eliquis 2.5mg tablet ORAL SCH (17:23)
--- NOTE | 2019-04-05 18:39 | NUR ---
NURSE NOTES: Patient admitted with wound on Sacral, Left Heel, Lower abdomen skinfold and right inner thigh. Wound care protocol initiated and wound care done as protocol. Will continue to monitor.
--- NOTE | 2019-04-05 19:15 | NUR ---
NURSE NOTES: Dialysis done and 2 L removed. Vital signs stable. Will continue to monitor.
--- NOTE | 2019-04-05 19:30 | NUR ---
HAND-OFF: Report given to Aminah BEAN. Patient in stable condition.
--- NOTE | 2019-04-05 19:31 | NUR ---
NURSE NOTES: Patient lying in bed awake. No complain of pain or distress at this time. IV dressing intact and dry. Bed lowest position, locked, side rails x2, bed alarm on. Both legs elevated. Call light within reach. Will continue to monitor.
--- NOTE | 2019-04-05 20:02 | NUR ---
NURSE NOTES: Pt complains of nausea and vomiting. HOB elevated, monitoring pt.
[2019-04-05] MEDS ORDERED: FLEET ENEMA133 ML RECTAL (20:35)
[2019-04-05] MEDS ORDERED: VITAMIN B COMP1 EAC5 PO (20:35)
--- NOTE | 2019-04-05 23:00 | History and Physical Report ---
DATE OF ADMISSION: 04/04/2019 REASON FOR ADMISSION: Left heel infection. CONSULTANTS: 1. Manas Stephenson M.D., Nephrology. 2. Fide Herr M.D., Infectious Disease. HISTORY OF PRESENT ILLNESS: The patient is a 68-year-old female, who presented to the emergency room for further evaluation and care of left heel pain over the last week. The patient had a special boot over her foot and had been receiving pain medication. She noted increased discharge from the region during the day and as such, she presented to the emergency room for evaluation and care. She denies any chest pain, nausea, vomiting, diarrhea, or shortness of breath. PAST MEDICAL HISTORY: 1. Diabetes. 2. End-stage renal disease, on dialysis. 3. Anemia of chronic kidney disease. 4. Chronic obstructive pulmonary disease. 5. Hypertension. 6. CVA. PAST SURGICAL HISTORY: Dialysis access placement. ALLERGIES: Penicillin. FAMILY HISTORY: Positive for hypertension and diabetes. REVIEW OF SYSTEMS: NEUROLOGIC: The patient denies headache, change in vision, syncope, or presyncopal episodes. CARDIOVASCULAR: No current chest pain, palpitations, or angina. PULMONARY: Mild shortness of breath. Nonproductive cough. GASTROINTESTINAL/GENITOURINARY: No change in urine or bowel habits. No nausea, vomiting, or diarrhea. ENDOCRINOLOGY: No night sweats, fevers, or chills. MUSCULOSKELETAL: The patient is complaining of left heel pain. PHYSICAL EXAMINATION: VITAL SIGNS: Blood pressure 115/56, respiratory rate 15, pulse 63, temperature 98, and 98% oxygen saturation on room air. GENERAL: The patient is awake, alert, and mildly anxious. HEENT: Extraocular muscles intact. No lymphadenopathy noted. CARDIOVASCULAR: S1, S2. No rubs or gallops. PULMONARY: Clear to auscultation bilaterally. No rales, rhonchi or wheezes. ABDOMINAL: Nondistended and nontender. EXTREMITY: Lower extremity bandage. LABORATORY DATA: Laboratories dated 04/05/2019, sodium 140, potassium 5.8, BUN 46, and creatinine 6.4. Hemoglobin 10.3, white cell count 6.2, and platelet count 200,000. ASSESSMENT AND PLAN: 1. Cellulitis of the left foot with superficial wound. Infectious Disease to manage with recommendations of local wound and dressing care. Heel abrasion, most likely secondary to local pressure. Defer antibiotics per Dr. Herr. 2. Hyperkalemia. The patient will undergo hemodialysis today. Defer to Nephrology. 3. End-stage renal disease. The patient Sunday, , Sunday, to undergo hemodialysis today per Dr. Stephenson. 4. Anemia of chronic kidney disease. Hemoglobin currently 10.3. Hold off Epogen until hemoglobin less than 10. 5. Hypertension. Adjust medications as deemed appropriate. 6. DVT prophylaxis. At this time, the patient is already on Eliquis. No further medications required. 7. Diabetes mellitus. Continue insulin sliding scale and home anti-glycemic medications. 8. Secondary hyperparathyroidism. Continue Renvela. Dr. Banegas will return tomorrow to continue primary care. Zachary Hernández MD DR: CHRISTY JOB#: [id number] CC: KAY
[2019-04-06] VITALS: BP 90/58
--- NOTE | 2019-04-06 01:00 | Consultation ---
DATE OF CONSULTATION: 04/05/2019 INFECTIOUS DISEASE CONSULTATION CONSULTING PHYSICIAN: Fide Herr M.D. REQUESTING PHYSICIAN: Danie Banegas M.D. REASON FOR CONSULTATION: Left heel skin abrasion with cellulitis, pain, and wound. Recommendation for antibiotics treatment. HISTORY OF PRESENT ILLNESS: The patient is a 68-year-old female with past medical history of cardiac disease; hypertension; asthma; COPD; diabetes type 2; end-stage renal disease, on hemodialysis; and CVA, presented to [facility] emergency room with left heel pain, discomfort, and abrasion, which she had for almost three months. The patient has been receiving topical treatment to the left heel, unclear whether through home health care and visiting nurse or not, but no oral or IV antibiotics so far for it. It seems like she had special boot on her left leg for prevention of pressure wounds. The patient complained of pain in the left heel when she puts weight on it. No fever or chills. No local discharge or draining. No numbness. No other symptoms. In the emergency room, the patient was found to have left heel posterior pressure wound with skin break and surrounding cellulitis, so she was started on vancomycin and Infectious Disease consultation was requested for antibiotics treatment and further management. REVIEW OF SYSTEMS: A 14-point of system reviewed were all negative apart from the one I mentioned above in my H and P. PAST MEDICAL HISTORY: Significant for cardiac disease; hypertension; pacemaker; asthma; COPD; diabetes; end-stage renal disease, on hemodialysis; and CVA. PAST SURGICAL HISTORY: Not on record. FAMILY HISTORY: Not contributory. SOCIAL HISTORY: The patient lives in halfway. No recent drugs, tobacco, or alcohol. ALLERGIES: She is allergic to penicillin, unclear what kind of reaction she gets. MEDICATIONS: She is currently on vancomycin. For the rest of her medications, please refer to [facility]. LABORATORY DATA: Showed white count of 6.2, hemoglobin of 10.3, and platelet count of 200,000. BUN of 46 and creatinine of 6.4. IMAGING: Foot x-ray on the left showed no acute fracture. PHYSICAL EXAMINATION: VITAL SIGNS: Temperature 98.1 degrees, pulse 65, respirations 15, blood pressure 111/53, and saturation 98% on room air. GENERAL: Elderly female, obese, lying in bed, awake, alert, and oriented, not in acute distress. HEENT: Normocephalic and atraumatic. Pupils are reactive to light equally. Moist oral mucosa. No exudate or thrush. NECK: Supple. No lymphadenopathy. CARDIOVASCULAR: Regular rate and rhythm. No murmur or gallop. LUNGS: Clear bilaterally. No wheezing or rhonchi. Diminished breathing sounds at the bases. ABDOMEN: Soft, obese, nontender, and nondistended. Normal bowel sounds. No hepatosplenomegaly or ascites. EXTREMITIES: She had left heel abrasion of the skin with a clear base. No draining surrounding cellulitis and redness. Tender to palpation. No clubbing or cyanosis in the foot. No significant pedal edema. ASSESSMENT AND RECOMMENDATIONS: 1. Left heel cellulitis. Continue vancomycin dosed with dialysis at this point. Recommend local wound care and dressing change as per hospital protocol. Keep offloading to that area. Follow up with Podiatry. 2. Heel abrasion with cellulitis. Management is same as above. Continue antibiotics. Local dressing as needed. 3. End-stage renal disease, on hemodialysis. Continue dialysis as per renal. 4. Diabetes mellitus. Recommend tight glycemic control to keep blood glucose between 100 to 140. Thank you for the consult. ID will continue to follow. Fide Herr M.D. DR: JUAN MIGUEL JOB#: [id number] CC:
[2019-04-06 04:00] VITALS: BP 97/60
[2019-04-06] MEDS: NovoLOG Insulin Flexpen SUBQ SCH ×4 (06:30→21:33)
--- NOTE | 2019-04-06 07:15 | NUR ---
HAND-OFF: Report given to VIKAS Byers.
--- NOTE | 2019-04-06 07:20 | NUR ---
NURSE NOTES: Patient lying in bed awake. No complain of pain or distress at this time. Wound dressing intact and dry. IV dressing intact and dry. Left AV shunt bruit and thrill present. Bed lowest position. Call light within reach. Will continue to monitor.
--- NOTE | 2019-04-06 07:37 | Consultation ---
Consult Note Assessment/Plan A/ 1) Left heel ulcer with cellulitis 2) Left hallux eschar - dry and stable 3) DM2 4) ESRD 5) Abnormal mobility P/ 1) Agree with wound care orders placed - d/w nursing. 2) Cont abx per ID. No indication of deep infection or abscess. No surgical intervention indicated 3) Strict glycemic control 4) Will order PT to eval Thank you River Dejesus DPM Apr 06, 2019 07:37
[2019-04-06 07:52] LABS: BASOPHILS % (AUTO) 1.2 % (0.0-2.0); EOSINOPHILS % (AUTO) 2.4 % (0.0-3.0); HEMATOCRIT 31.3 % (37.0-47.0); LYMPHOCYTES % (AUTO) 24.2 % (20.0-45.0); MEAN CORPUSCULAR VOLUME 101 FL (80-99); MONOCYTES % (AUTO) 12.6 % (1.0-10.0); NEUTROPHILS % (AUTO) 59.5 % (45.0-75.0); PLATELET COUNT 188 K/UL (150-450); RED CELL DISTRIBUTION WIDTH 13.9 % (11.6-14.8); WHITE BLOOD COUNT 6.2 K/UL (4.8-10.8)
--- NOTE | 2019-04-06 07:55 | NUR ---
NURSE NOTES: Spoke to regarding patient and new order received. Order read back and carried out.
[2019-04-06 08:10] LABS: ALANINE AMINOTRANSFERASE 19 U/L (12-78); ALBUMIN 3.2 G/DL (3.4-5.0); ALKALINE PHOSPHATASE 51 U/L (46-116); ANION GAP 6 mmol/L (5-15); ASPARTATE AMINO TRANSFERASE 20 U/L (15-37); BILIRUBIN,TOTAL 0.4 MG/DL (0.2-1.0); BLOOD UREA NITROGEN 37 mg/dL (7-18); CALCIUM 9.2 MG/DL (8.5-10.1); CARBON DIOXIDE 32 MMOL/L (21-32); CHLORIDE 99 MMOL/L (98-107); CHOLESTEROL 194 MG/DL (< 200); CREATININE 5.4 MG/DL (0.55-1.30); HDL CHOLESTEROL 74 MG/DL (40-60); POTASSIUM 4.7 MMOL/L (3.5-5.1); SODIUM 137 MMOL/L (136-145); TRIGLYCERIDES 57 MG/DL (30-150)
[2019-04-06 08:12] LABS: % IRON SATURATION 43 % (15-50); IRON 87 ug/dL (50-175); TOTAL IRON BINDING CAPACITY 201 ug/dL (250-450)
[2019-04-06 08:25] LABS: FERRITIN 899 NG/ML (8-388); GAMMA GLUTAMYL TRANSPEPTIDASE 27 U/L (5-85); PHOSPHORUS 3.3 MG/DL (2.5-4.9)
[2019-04-06 08:43] VITALS: BP 123/58
[2019-04-06] MEDS ORDERED: Lisinopril 10mg tab ORAL SCH (09:00)
[2019-04-06] MEDS: Docusate 100mg cap ORAL SCH ×3 (09:00→17:37)
[2019-04-06] MEDS: Eliquis 2.5mg tablet ORAL SCH ×2 (09:28→17:37)
[2019-04-06] MEDS: Aspirin Baby 81mg ORAL SCH (09:28)
[2019-04-06] MEDS: Lisinopril 10mg tab ORAL SCH (09:28)
[2019-04-06] MEDS: Renvela 800mg Pkt ORAL SCH ×3 (09:29→17:38)
[2019-04-06] MEDS: Artificial Tears 1.4% Op Soln BOTH EYES SCH (09:35)
[2019-04-06] MEDS ORDERED: Vancomycin 1.25gm Premix IVPB ONE (10:00)
--- NOTE | 2019-04-06 10:15 | General Progress Note ---
Assessment/Plan Assessment/Plan: S: I am doing ok O: Appears comfortable, pain is well managed PHYSICAL EXAMINATION: VITAL SIGNS: GENERAL: Elderly female, obese, lying in bed, awake, alert, and oriented, not in acute distress.HEENT: Normocephalic and atraumatic. Pupils are reactive to light equally. Moist oral mucosa. No exudate or thrush.NECK: Supple. No lymphadenopathy. CARDIOVASCULAR: Regular rate and rhythm. No murmur or gallop. LUNGS: Clear bilaterally. No wheezing or rhonchi. Diminished breathing sounds at the bases. ABDOMEN: Soft, obese, nontender, and nondistended. Normal bowel sounds. No hepatosplenomegaly or ascites.EXTREMITIES: She had left heel abrasion of the skin with a clear base. No draining surrounding cellulitis and redness. Tender to palpation. No clubbing or cyanosis in the foot. No significant pedal edema. Meds: Including Vanco is reviewed. ASSESSMENT AND PLAN: 1. Cellulitis of the left foot with superficial wound. Infectious Disease to manage with recommendations of local wound and dressing care. Heel abrasion, most likely secondary to local pressure. Defer antibiotics per Dr. Herr. 2. Hyperkalemia. The patient will undergo hemodialysis today. Defer to Nephrology. 3. End-stage renal disease. The patient Sunday, , Sunday, to undergo hemodialysis today per Dr. Stephenson. 4. Anemia of chronic kidney disease. Hemoglobin currently 10.3. Hold off Epogen until hemoglobin less than 10. 5. Hypertension. Adjust medications as deemed appropriate. 6. DVT prophylaxis. At this time, the patient is already on Eliquis. No further medications required. 7. Diabetes mellitus. Continue insulin sliding scale and home anti-glycemic medications. 8. Secondary hyperparathyroidism. Continue Renvela. Plan: Vascular surgeon notified PAD assessment defer to Vas sx current abtibiotic mgt , per ID Subjective Allergies: Coded Allergies: PENICILLINS (Verified Allergy, Unknown, 11/10/09) Objective Last 24 Hour Vital Signs Date Time Temp Pulse Resp B/P (MAP) Pulse Ox O2 Delivery O2 Flow Rate FiO2 04/06/19 09:28 123/58 04/06/19 08:43 98.1 60 18 123/58 (79) 94 04/06/19 04:00 98.1 60 16 97/60 (72) 96 04/06/19 00:00 98.0 62 17 90/58 (69) 97 04/05/19 23:44 98.0 62 17 116/56 (76) 97 04/05/19 21:00 Room Air 04/05/19 20:00 98.0 60 15 114/52 (72) 96 04/05/19 19:37 60 18 92 Room Air 04/05/19 16:00 98.0 63 15 115/56 (75) 98 04/05/19 12:00 98.1 65 15 111/53 (72) 98 Intake and Output 04/05/19 04/06/19 19:00 07:00 Intake Total 800 ml 100 ml Balance 800 ml 100 ml Intake Oral 800 ml 100 ml # Voids 3 2 # Bowel Movements 1 2 Laboratory Tests 04/05/19 17:45: Hepatitis B Surface Antigen Negative 04/06/19 07:10: White Blood Count 6.2, Red Blood Count 3.10L, Hemoglobin 10.0L, Hematocrit 31.3L , Mean Corpuscular Volume 101H, Mean Corpuscular Hemoglobin 32.4H, Mean Corpuscular Hemoglobin Concent 32.1, Red Cell Distribution Width 13.9, Platelet Count 188, Mean Platelet Volume 7.6, Neutrophils (%) (Auto) 59.5, Lymphocytes (% ) (Auto) 24.2, Monocytes (%) (Auto) 12.6H, Eosinophils (%) (Auto) 2.4, Basophils (%) (Auto) 1.2, Sodium Level 137, Potassium Level 4.7, Chloride Level 99, Carbon Dioxide Level 32, Anion Gap 6, Blood Urea Nitrogen 37H, Creatinine 5.4H, Estimat Glomerular Filtration Rate 9.6, Glucose Level 101, Hemoglobin A1c 5.9, Uric Acid 4.4, Calcium Level 9.2, Phosphorus Level 3.3, Magnesium Level 2.0 , Iron Level 87, Total Iron Binding Capacity 201L, Percent Iron Saturation 43, Unsaturated Iron Binding 114, Ferritin 899H, Total Bilirubin 0.4, Gamma Glutamyl Transpeptidase 27, Aspartate Amino Transf (AST/SGOT) 20, Alanine Aminotransferase (ALT/SGPT) 19, Alkaline Phosphatase 51, C-Reactive Protein, Quantitative < 0.4, Pro-B-Type Natriuretic Peptide 4427H, Total Protein 6.5, Albumin 3.2L, Globulin 3.3, Albumin/Globulin Ratio 1.0, Triglycerides Level 57, Cholesterol Level 194, LDL Cholesterol 100, HDL Cholesterol 74H, Cholesterol/ HDL Ratio 2.6L, Vitamin B12 Level 412, Folate 5.0L, Thyroid Stimulating Hormone (TSH) 1.017, Random Vancomycin Level 15.0 Height (Feet): 5 Height (Inches): 5.00 Weight (Pounds): 229 Danie Banegas MD Apr 06, 2019 10:14
--- NOTE | 2019-04-06 10:45 | Consultation ---
DATE OF CONSULTATION: 04/06/2019 CONSULTING PHYSICIAN: River Marroquin DPM. REQUESTING PHYSICIAN: Danie Banegas M.D. REASON FOR CONSULTATION: Diabetic foot ulcer of left foot, diabetes mellitus, end-stage renal disease. HISTORY OF PRESENT ILLNESS: The patient is a 68-year-old female who was admitted to [facility] on April 04, 2019, for left foot cellulitis. The patient states that she has history of stroke 10 years ago and has been immobile since, consistently either on a wheelchair or bedbound and has been nonambulatory. The patient states approximately 3 months ago, there was a scab on the left heel. Nurses were treating the left heel and the scab autolysed and the resulting wound was left over. The patient currently denies any pain, fevers, chills, nausea, or vomiting. She is currently in an offloading boot and has diabetic shoe on the right foot. PAST MEDICAL HISTORY: Significant for type 2 diabetes mellitus, end-stage renal disease, on dialysis, anemia of chronic kidney disease, COPD, hypertension, and CVA with left-sided weakness. ALLERGIES: Allergic to penicillin. PAST SURGICAL HISTORY: She has dialysis access. FAMILY HISTORY: Noncontributory. SOCIAL HISTORY: The patient resides in a long term facility. REVIEW OF SYSTEMS: Ten-point system pertinent to pedal condition is unremarkable. PHYSICAL EXAMINATION: VITAL SIGNS: Temperature is 98.1, pulse is 60, respiration is 16, blood pressure is 97/60, saturating 96% on room air. LOWER EXTREMITY PHYSICAL EXAM: Vascular, nonpalpable pedal pulses noted bilaterally. Feet are equally warm. There is no edema or cyanosis noted. DERMATOLOGICAL: There is a full-thickness ulceration noted on the left lateral heel to subcutaneous tissue. Minimal serous drainage noted from the site. No malodor. No periwound erythema. No periwound maceration noted. No deep structures noted. No bone or tendon. Wound does not probe deep. There is an eschar noted on the left hallux on the medial aspect of the toe. No signs of acute infection noted. No signs of fungal infection noted. Right foot is unremarkable. No wounds noted. All interdigital spaces bilaterally are clear. MUSCULOSKELETAL: Significant weakness is noted on the left lower extremity. She has 4/5 strength in anterior, lateral, and posterior muscle groups of right lower extremity. No gross deformities noted bilaterally. NEUROLOGIC: Protective threshold is diminished. LABORATORY DATA: White blood cell count is 6.2, hemoglobin 10.3, hematocrit 32.6, and platelet count is 200,000. Potassium is 5.8, BUN is 46, creatinine is 6.0, and glucose is 128. Hemoglobin A1c is 5.6. Albumin is 3.3. DIAGNOSTIC DATA: X-rays of the left foot note no acute fracture or malalignment. Vascular calcifications are noted. ASSESSMENT: 1. Left heel ulcer with cellulitis. 2. Left hallux eschar, dry and stable. 3. Type 2 diabetes mellitus. 4. End-stage renal disease. 5. Abnormal mobility secondary to cerebrovascular accident. PLAN: 1. Agree with wound care orders placed, discussed with nursing. 2. Continue antibiotics per ID. No indication of deep infection or abscess. No surgical intervention indicated. 3. Strict glycemic control. 4. We will order PT to evaluate for mobility. 5. Arterial ultrasound was ordered and is pending. We will monitor. Thank you for the courtesy of this consultation, Dr. Banegas. iRver Marroquin D.P.M. DR: Sruthi JOB#: [id number] CC:
[2019-04-06 12:00] VITALS: BP 151/81
--- NOTE | 2019-04-06 12:43 | Consultation ---
History of Present Illness General Reason for Hospitalization: Skin Rash/Abscess Present Illness HPI This is a very pleasant 68-year-old female with multiple medical comorbidities include diabetes who is a shelter resident presented with slow healing left lower extremity ulcer and cellulitis. Patient states that approximately 2 to 3 months ago she developed an ulcer on her left heel and left foot that has been slowly healing. She has been receiving care at an outside facility with topical creams offloading pressure and lower extremity boot. She feels is not healing significantly quick enough and is unsure why. States that it causes her discomfort. Was thought to be potentially infected with cellulitis. Currently admitted for care and management. Seen by podiatry. Surgery called to evaluate for cellulitis and assist with care. Patient seen, patient evaluate , chart reviewed. Allergies: Coded Allergies: PENICILLINS (Verified Allergy, Unknown, 11/10/09) Medication History Scheduled Amino Acids/Protein Hydrolys (Pro-Stat Liquid), 30 ML ORAL TWICE A DAY, ( Reported) Amiodarone Hcl* (Amiodarone Hcl*), 400 MG ORAL EVERY 12 HOURS, (Reported) Aspirin* (Aspirin*), 81 MG ORAL DAILY Atorvastatin Calcium* (Atorvastatin Calcium*), 10 MG ORAL BEDTIME, (Reported) Cholecalciferol (Vitamin D3) (Vitamin D-400*), 400 UNITS ORAL DAILY, (Reported) Docusate Sodium* (Docusate Sodium*), 100 MG ORAL TWICE A DAY, (Reported) Ferrous Sulfate* (Ferrous Sulfate*), 325 MG ORAL DAILY, (Reported) Gabapentin* (Gabapentin*), 100 MG ORAL Q12HR, (Reported) Lisinopril* (Lisinopril*), 10 MG ORAL DAILY Sevelamer Carbonate* (Renvela*), 800 MG ORAL THREE TIMES A DAY, (Reported) Vitamin B Complex (Vitamin B Complex), 1 EACH PO DAILY, (Reported) [Nephro Aide], 1 TAB PO DAILY, (Reported) Scheduled PRN Acetaminophen* (Acetaminophen 325MG Tablet*), 650 MG ORAL Q4H PRN for For Pain, (Reported) Albuterol Sulfate* (Albuterol Sulfate Hhn*), 3 ML INH Q6H PRN for wheezing, ( Reported) Bisacodyl (Bisacodyl), 10 MG RC EVERY DAY PRN for Constipation, (Reported) Hydralazine Hcl* (Hydralazine Hcl*), 25 MG ORAL Q4H PRN Hydrocodone Bit/Acetaminophen 5-325* (Gordon 5-325*), 1 TAB ORAL Q4H PRN for For Pain, (Reported) Na Phos,M-B/Na Phos,Di-Ba* (Fleet Enema*), 133 ML RECTAL DAILY PRN for Constipation, (Reported) Miscellaneous Medications Dextran 70/Hypromellose (Artificial Tears Eye Drops*), 1 DROP BOTH EYES, ( Reported) Patient History History Provided By: Patient, Medical Record, PMD Healthcare decision maker ARMEN HORAN Resuscitation status Full Code Advanced Directive on File Yes Past Medical/Surgical History Past Medical/Surgical History: (1) Urinary tract infection due to Proteus (2) Elevated troponin I level (3) Volume overload (4) Bradycardia (5) Diabetic nephropathy (6) ESRD (end stage renal disease) (7) Cellulitis of left foot (8) Heel abrasion (9) Dyspnea (10) Symptomatic anemia (11) Acute on chronic renal failure (12) Anemia (13) HTN (hypertension) Review of Systems Review of Symptoms General ROS: no weight loss or fever Psychological ROS: no depression or mood changes, no memory loss Ophthalmic ROS: no visual changes or eye irritation ENT ROS: no nasal congestion, hearing loss, dizziness Allergy and Immunology ROS: no allergic symptoms or urticaria Hematological and Lymphatic ROS: no swollen glands, unusual bleeding or bruising Endocrine ROS: no polyuria, polydipsia, weight changes, temperature intolerance Respiratory ROS: no cough, shortness of breath, or wheezing Cardiovascular ROS: no chest pain or dyspnea on exertion Gastrointestinal ROS: denies abdominal pain, no bright red blood in stool. Musculoskeletal ROS: no myalgias or arthralgias Neurological ROS: no TIA or stroke symptoms Dermatological ROS: no new or changing skin lesions, rashes or pruritis Physical Exam Physical Exam General appearance: alert, cooperative, no distress, appears stated age Head: Normocephalic, without obvious abnormality, atraumatic Eyes: conjunctivae/corneas clear. PERRL, EOM's intact. Fundi benign Throat: Lips, mucosa, and tongue normal. Teeth and gums normal Neck: supple, symmetrical, trachea midline, no adenopathy, thyroid: not enlarged, symmetric, no tenderness/mass/nodules, no carotid bruit and no JVD Lungs: clear to auscultation bilaterally Heart: regular rate and rhythm, S1, S2 normal, no murmur, click, rub or gallop Abdomen: soft, non-tender. Bowel sounds normal. No masses, no organomegaly Extremities: extremities normal, atraumatic, no cyanosis or edema. see below Pulses: 2+ and symmetric Skin: Skin color, texture, turgor normal. No rashes or lesions Neurologic: Grossly normal Last 24 Hour Vital Signs Date Time Temp Pulse Resp B/P (MAP) Pulse Ox O2 Delivery O2 Flow Rate FiO2 04/06/19 09:45 62 18 95 Room Air 04/06/19 09:28 123/58 04/06/19 09:00 Room Air 04/06/19 08:43 98.1 60 18 123/58 (79) 94 04/06/19 04:00 98.1 60 16 97/60 (72) 96 04/06/19 00:00 98.0 62 17 90/58 (69) 97 04/05/19 23:44 98.0 62 17 116/56 (76) 97 04/05/19 21:00 Room Air 04/05/19 20:00 98.0 60 15 114/52 (72) 96 04/05/19 19:37 60 18 92 Room Air 04/05/19 16:00 98.0 63 15 115/56 (75) 98 Intake and Output 04/05/19 04/06/19 19:00 07:00 Intake Total 800 ml 100 ml Balance 800 ml 100 ml Intake Oral 800 ml 100 ml # Voids 3 2 # Bowel Movements 1 2 Laboratory Tests Test 04/05/19 17:45 04/06/19 07:10 Hepatitis B Surface Antigen Negative (NEGATIVE) White Blood Count 6.2 K/UL (4.8-10.8) Red Blood Count 3.10 M/UL (4.20-5.40) L Hemoglobin 10.0 G/DL (12.0-16.0) L Hematocrit 31.3 % (37.0-47.0) L Mean Corpuscular Volume 101 FL (80-99) H Mean Corpuscular Hemoglobin 32.4 PG (27.0-31.0) H Mean Corpuscular Hemoglobin Concent 32.1 G/DL (32.0-36.0) Red Cell Distribution Width 13.9 % (11.6-14.8) Platelet Count 188 K/UL (150-450) Mean Platelet Volume 7.6 FL (6.5-10.1) Neutrophils (%) (Auto) 59.5 % (45.0-75.0) Lymphocytes (%) (Auto) 24.2 % (20.0-45.0) Monocytes (%) (Auto) 12.6 % (1.0-10.0) H Eosinophils (%) (Auto) 2.4 % (0.0-3.0) Basophils (%) (Auto) 1.2 % (0.0-2.0) Sodium Level 137 MMOL/L (136-145) Potassium Level 4.7 MMOL/L (3.5-5.1) Chloride Level 99 MMOL/L (98-107) Carbon Dioxide Level 32 MMOL/L (21-32) Anion Gap 6 mmol/L (5-15) Blood Urea Nitrogen 37 mg/dL (7-18) H Creatinine 5.4 MG/DL (0.55-1.30) H Estimat Glomerular Filtration Rate 9.6 mL/min (>60) Glucose Level 101 MG/DL (74-106) Hemoglobin A1c 5.9 % (4.3-6.0) Uric Acid 4.4 MG/DL (2.6-7.2) Calcium Level 9.2 MG/DL (8.5-10.1) Phosphorus Level 3.3 MG/DL (2.5-4.9) Magnesium Level 2.0 MG/DL (1.8-2.4) Iron Level 87 ug/dL (50-175) Total Iron Binding Capacity 201 ug/dL (250-450) L Percent Iron Saturation 43 % (15-50) Unsaturated Iron Binding 114 ug/dL (112-346) Ferritin 899 NG/ML (8-388) H Total Bilirubin 0.4 MG/DL (0.2-1.0) Gamma Glutamyl Transpeptidase 27 U/L (5-85) Aspartate Amino Transf (AST/SGOT) 20 U/L (15-37) Alanine Aminotransferase (ALT/SGPT) 19 U/L (12-78) Alkaline Phosphatase 51 U/L (46-116) C-Reactive Protein, Quantitative < 0.4 mg/dL (0.00-0.90) Pro-B-Type Natriuretic Peptide 4427 pg/mL (0-125) H Total Protein 6.5 G/DL (6.4-8.2) Albumin 3.2 G/DL (3.4-5.0) L Globulin 3.3 g/dL Albumin/Globulin Ratio 1.0 (1.0-2.7) Triglycerides Level 57 MG/DL (30-150) Cholesterol Level 194 MG/DL (< 200) LDL Cholesterol 100 mg/dL (<100) HDL Cholesterol 74 MG/DL (40-60) H Cholesterol/HDL Ratio 2.6 (3.3-4.4) L Vitamin B12 Level 412 PG/ML (193-986) Folate 5.0 NG/ML (8.6-58.9) L Thyroid Stimulating Hormone (TSH) 1.017 uiU/mL (0.358-3.740) Random Vancomycin Level 15.0 ug/mL Height (Feet): 5 Height (Inches): 5.00 Weight (Pounds): 229 Medications Current Medications Medications (Trade) Dose Ordered Sig/Jesus Route PRN Reason Start Time Stop Time Status Last Admin Dose Admin Acetaminophen (Tylenol) 650 mg Q4H PRN ORAL For Pain 04/04/19 23:15 05/04/19 23:14 Acetaminophen/ Hydrocodone Bitart (Gordon 5/325) 1 tab Q4H PRN ORAL For Pain 04/04/19 23:15 04/11/19 23:14 Albuterol Sulfate (Proventil) 2.5 mg Q6H PRN HHN wheezing 04/04/19 23:15 04/09/19 23:14 Apixaban (Eliquis) 2.5 mg BID ORAL 04/05/19 18:00 05/05/19 17:59 04/06/19 09:28 Artificial Tears (Akwa-Tears) 1 drop DAILY BOTH EYES 04/05/19 09:00 05/05/19 08:59 04/06/19 09:35 Aspirin (ASA) 81 mg DAILY ORAL 04/05/19 09:00 05/05/19 08:59 04/06/19 09:28 Atorvastatin Calcium (Lipitor) 10 mg BEDTIME ORAL 04/05/19 21:00 05/05/19 20:59 04/05/19 21:21 Dextrose (Dextrose 50%) 25 ml Q30M PRN IV Hypoglycemia 04/04/19 23:15 05/04/19 23:14 Dextrose (Dextrose 50%) 50 ml Q30M PRN IV Hypoglycemia 04/04/19 23:15 05/04/19 23:14 Docusate Sodium (Colace) 100 mg TID ORAL 04/05/19 13:00 05/05/19 08:59 Gabapentin (Neurontin) 100 mg TID ORAL 04/05/19 13:00 05/05/19 08:59 04/06/19 09:29 Hydralazine HCl (Apresoline) 25 mg Q4H PRN ORAL SBP > 160 mm Hg 04/04/19 23:15 05/04/19 23:14 Insulin Aspart (NovoLOG) BEFORE MEALS AND HS SUBQ 04/05/19 06:30 05/05/19 06:29 04/06/19 11:35 Lisinopril (Zestril) 10 mg DAILY ORAL 04/06/19 09:00 05/05/19 08:59 04/06/19 09:28 Lorazepam (Ativan) 1 mg DAILYPRN PRN ORAL For Anxiety 04/05/19 17:00 04/12/19 16:59 04/05/19 17:23 Ondansetron HCl (Zofran) 4 mg Q6H PRN IVP Nausea & Vomiting 04/05/19 23:15 05/05/19 23:14 Sevelamer Carbonate (Renvela) 800 mg THREE TIMES A DAY ORAL 04/05/19 09:00 05/05/19 08:59 04/06/19 09:29 Vancomycin HCl (Vanco rx to dose) 1 ea DAILY PRN MISC Per rx protocol 04/04/19 23:15 05/04/19 23:14 Assessment/Plan Problem List: (1) Diabetic nephropathy ICD Codes: E11.21 - Type 2 diabetes mellitus with diabetic nephropathy SNOMED: 23321591, 103136221 (2) ESRD (end stage renal disease) ICD Codes: N18.6 - End stage renal disease SNOMED: 64183683 (3) Cellulitis of left foot Assessment & Plan: 68-year-old female with multiple medical comorbidities presents with left lower extremity pain cellulitis and slow healing ulcer. Diabetic left heel ulcer, necrotic ulcer of left helix. Decreased motor neuron sensory and left lower extremity patient unsure how she developed this ulcer but states that she is been receiving care. Looks like care plan has been going well. Appreciate podiatry input and agree with care plan. Plain films noted as below. Continue with antibiotics as per ID. No acute surgical intervention recommended. Pending arterial ultrasound Will follow with recommendations. Thank you for this consultation Plain films: TECHNIQUE: Frontal, lateral and oblique views of the left foot. COMPARISON: No relevant prior studies available. FINDINGS: Bones/joints: No acute fracture or malalignment. Diffuse osteopenia. Soft tissues: Unremarkable. No radiopaque foreign body. Vasculature: Vascular calcifications. IMPRESSION: No acute fracture or malalignment. ICD Codes: L03.116 - Cellulitis of left lower limb SNOMED: 068180496 (4) Heel abrasion ICD Codes: S90.819A - Abrasion, unspecified foot, initial encounter SNOMED: 734295397, 844654704 (5) Bradycardia ICD Codes: R00.1 - Bradycardia, unspecified SNOMED: 49542885 (6) Volume overload ICD Codes: E87.70 - Fluid overload, unspecified SNOMED: 87743838 (7) Elevated troponin I level ICD Codes: R74.8 - Abnormal levels of other serum enzymes SNOMED: 712067158 (8) Urinary tract infection due to Proteus ICD Codes: N39.0 - Urinary tract infection, site not specified; B96.4 - Proteus (mirabilis) (morganii) as the cause of diseases classified elsewhere SNOMED: 606884294 (9) Dyspnea ICD Codes: R06.00 - Dyspnea, unspecified SNOMED: 880366892 (10) Symptomatic anemia ICD Codes: D64.9 - Anemia, unspecified SNOMED: 944761665 (11) Acute on chronic renal failure ICD Codes: N17.9 - Acute kidney failure, unspecified; N18.9 - Chronic kidney disease, unspecified SNOMED: 553956782 (12) Anemia ICD Codes: D64.9 - Anemia, unspecified SNOMED: 189989495 (13) HTN (hypertension) ICD Codes: I10 - Essential (primary) hypertension SNOMED: 06762526 Luis Alberto Cade Apr 06, 2019 12:43
--- NOTE | 2019-04-06 12:49 | NUR ---
RD ASSESSMENT & RECOMMENDATIONS SEE CARE ACTIVITY FOR COMPLETE ASSESSMENT DAILY ESTIMATED NEEDS: Needs based on ESRD on HD, obese 73kg adj 25-30 kcals/kg 9631-1589 total kcals 1.8-2.5 IBW 56.8kg g protein/kg 102-142 g total protein Fluid per MD on HD NUTRITION DIAGNOSIS: Increased protein needs r/t renal dysfunction and wound healing as evidenced by pt w/ ESRD on HD, w/ L heel ulcer and cellulitis per podiatry. CURRENT DIET:Renal / CCHO med PO DIET RECOMMENDATIONS: RENAL DIET + DOUBLE PROTEIN PORTIONS ADDITIONAL RECOMMENDATIONS: 1) Obtain standing weight for eval post HD 2) Rec RENAL DIET w/ DOUBLE PROTEIN PORTIONS 3) Check lytes daily 4) Wound care [place] BID Nephrovite x1 daily
--- NOTE | 2019-04-06 15:22 | Nephrology Progress Note ---
Assessment/Plan Problem List: (1) ESRD (end stage renal disease) (2) Bradycardia (3) HTN (hypertension) (4) Anemia Assessment Admitted with left heel ulcer / cellulitis Other conditions: - ESRD (end stage renal disease) - Diabetic nephropathy - Bradycardia - Diabetic nephropathy - h/o Anemia of CKD - HTN (hypertension) - h/o At fib - CVA left weakness Plan Plan: HD 04/05 and 04/07 Adjust BP meds Podiatry / Vasc surgical eval Objective Objective Last 24 Hour Vital Signs Date Time Temp Pulse Resp B/P (MAP) Pulse Ox O2 Delivery O2 Flow Rate FiO2 04/06/19 12:00 98.0 61 20 151/81 (104) 95 04/06/19 09:45 62 18 95 Room Air 04/06/19 09:28 123/58 04/06/19 09:00 Room Air 04/06/19 08:43 98.1 60 18 123/58 (79) 94 04/06/19 04:00 98.1 60 16 97/60 (72) 96 04/06/19 00:00 98.0 62 17 90/58 (69) 97 04/05/19 23:44 98.0 62 17 116/56 (76) 97 04/05/19 21:00 Room Air 04/05/19 20:00 98.0 60 15 114/52 (72) 96 04/05/19 19:37 60 18 92 Room Air 04/05/19 16:00 98.0 63 15 115/56 (75) 98 Intake and Output 04/05/19 04/06/19 19:00 07:00 Intake Total 800 ml 100 ml Balance 800 ml 100 ml Intake Oral 800 ml 100 ml # Voids 3 2 # Bowel Movements 1 2 Laboratory Tests 04/05/19 17:45: Hepatitis B Surface Antigen Negative 04/06/19 07:10: White Blood Count 6.2, Red Blood Count 3.10L, Hemoglobin 10.0L, Hematocrit 31.3L , Mean Corpuscular Volume 101H, Mean Corpuscular Hemoglobin 32.4H, Mean Corpuscular Hemoglobin Concent 32.1, Red Cell Distribution Width 13.9, Platelet Count 188, Mean Platelet Volume 7.6, Neutrophils (%) (Auto) 59.5, Lymphocytes (% ) (Auto) 24.2, Monocytes (%) (Auto) 12.6H, Eosinophils (%) (Auto) 2.4, Basophils (%) (Auto) 1.2, Sodium Level 137, Potassium Level 4.7, Chloride Level 99, Carbon Dioxide Level 32, Anion Gap 6, Blood Urea Nitrogen 37H, Creatinine 5.4H, Estimat Glomerular Filtration Rate 9.6, Glucose Level 101, Hemoglobin A1c 5.9, Uric Acid 4.4, Calcium Level 9.2, Phosphorus Level 3.3, Magnesium Level 2.0 , Iron Level 87, Total Iron Binding Capacity 201L, Percent Iron Saturation 43, Unsaturated Iron Binding 114, Ferritin 899H, Total Bilirubin 0.4, Gamma Glutamyl Transpeptidase 27, Aspartate Amino Transf (AST/SGOT) 20, Alanine Aminotransferase (ALT/SGPT) 19, Alkaline Phosphatase 51, C-Reactive Protein, Quantitative < 0.4, Pro-B-Type Natriuretic Peptide 4427H, Total Protein 6.5, Albumin 3.2L, Globulin 3.3, Albumin/Globulin Ratio 1.0, Triglycerides Level 57, Cholesterol Level 194, LDL Cholesterol 100, HDL Cholesterol 74H, Cholesterol/ HDL Ratio 2.6L, Vitamin B12 Level 412, Folate 5.0L, Thyroid Stimulating Hormone (TSH) 1.017, Random Vancomycin Level 15.0 Height (Feet): 5 Height (Inches): 5.00 Weight (Pounds): 229 Manas Stephenson MD Apr 06, 2019 15:22
[2019-04-06 16:00] VITALS: BP 160/41
--- NOTE | 2019-04-06 18:25 | NUR ---
NURSE NOTES: IV infiltrated beginning of Vancomycin infusion. Administered 80 ml of Vancomycin. Tried to insert IV using Vein finder but not able to get IV access. Charge nurse and sheet metal shop supervisor notified. Spoke to regarding IV infiltration and Vancomycin. Per : Call and notify. Spoke to regarding Vancomycin. Per : Patient doesn't need IV access and Give Vancomycin at the end of hemodialysis. Spoke to [facility] pharmacist and he will will arrange vancomycin for tomorrow.
--- NOTE | 2019-04-06 18:30 | NUR ---
NURSE NOTES: Called [facility] Nephrology and spoke to Hi. Hi will schedule patient for tomorrow.
--- NOTE | 2019-04-06 19:07 | Infectious Diseases Prog Note ---
Assessment/Plan Problems: (1) Cellulitis of left foot Assessment & Plan: with superficial wound , keep off loading continue vancomycin after HD dosed as per pharmacy , local wound care and dressings (2) Heel abrasion Assessment & Plan: suspect due to local pressure , continue antibiotics and off loading (3) ESRD (end stage renal disease) Assessment & Plan: continue HD as per renal Subjective Constitutional: Reports: no symptoms HEENT: Reports: no symptoms Respiratory: Reports: no symptoms Breasts: Reports: no symptoms Cardiovascular: Reports: no symptoms Gastrointestinal/Abdominal: Reports: no symptoms Genitourinary: Reports: no symptoms Neurologic: Reports: no symptoms Psychiatric: Reports: no symptoms Skin: Reports: no symptoms Endocrine: Reports: no symptoms Hematologic: Reports: no symptoms Allergies: Coded Allergies: PENICILLINS (Verified Allergy, Unknown, 11/10/09) Objective Vital Signs Last 24 Hour Vital Signs Date Time Temp Pulse Resp B/P (MAP) Pulse Ox O2 Delivery O2 Flow Rate FiO2 04/06/19 16:00 98.1 60 18 160/41 (80) 95 04/06/19 12:00 98.0 61 20 151/81 (104) 95 04/06/19 09:45 62 18 95 Room Air 04/06/19 09:28 123/58 04/06/19 09:00 Room Air 04/06/19 08:43 98.1 60 18 123/58 (79) 94 04/06/19 04:00 98.1 60 16 97/60 (72) 96 04/06/19 00:00 98.0 62 17 90/58 (69) 97 04/05/19 23:44 98.0 62 17 116/56 (76) 97 04/05/19 21:00 Room Air 04/05/19 20:00 98.0 60 15 114/52 (72) 96 04/05/19 19:37 60 18 92 Room Air Height (Feet): 5 Height (Inches): 5.00 Weight (Pounds): 229 General Appearance: WD/WN, no acute distress HEENT: normocephalic, atraumatic, anicteric, mucous membranes moist, PERRL Respiratory/Chest: chest wall non-tender, lungs clear, normal breath sounds, no respiratory distress, no accessory muscle use Cardiovascular: normal peripheral pulses, normal rate, regular rhythm, no gallop/murmur, no JVD Abdomen: normal bowel sounds, soft, non tender, no organomegaly, non distended , no mass, no scars Genitourinary: normal external genitalia Extremities: no cyanosis, no clubbing, other - left heel superficial ulcer Skin: no rash, no lesions, ulcers Neurologic/Psychiatric: parts processor II-XII grossly normal, no motor/sensory deficits, alert, responsive Lymphatic: no neck adenopathy, no groin adenopathy Musculoskeletal: normal muscle bulk, no effusion Microbiology Date/Time Source Procedure Growth Status 04/04/19 18:30 Blood Blood Culture - Preliminary NO GROWTH AFTER 24 HOURS Resulted 04/04/19 18:25 Blood Blood Culture - Preliminary NO GROWTH AFTER 24 HOURS Resulted 04/04/19 21:00 Rectum Received Laboratory Tests Test 04/06/19 07:10 White Blood Count 6.2 K/UL (4.8-10.8) Red Blood Count 3.10 M/UL (4.20-5.40) L Hemoglobin 10.0 G/DL (12.0-16.0) L Hematocrit 31.3 % (37.0-47.0) L Mean Corpuscular Volume 101 FL (80-99) H Mean Corpuscular Hemoglobin 32.4 PG (27.0-31.0) H Mean Corpuscular Hemoglobin Concent 32.1 G/DL (32.0-36.0) Red Cell Distribution Width 13.9 % (11.6-14.8) Platelet Count 188 K/UL (150-450) Mean Platelet Volume 7.6 FL (6.5-10.1) Neutrophils (%) (Auto) 59.5 % (45.0-75.0) Lymphocytes (%) (Auto) 24.2 % (20.0-45.0) Monocytes (%) (Auto) 12.6 % (1.0-10.0) H Eosinophils (%) (Auto) 2.4 % (0.0-3.0) Basophils (%) (Auto) 1.2 % (0.0-2.0) Sodium Level 137 MMOL/L (136-145) Potassium Level 4.7 MMOL/L (3.5-5.1) Chloride Level 99 MMOL/L (98-107) Carbon Dioxide Level 32 MMOL/L (21-32) Anion Gap 6 mmol/L (5-15) Blood Urea Nitrogen 37 mg/dL (7-18) H Creatinine 5.4 MG/DL (0.55-1.30) H Estimat Glomerular Filtration Rate 9.6 mL/min (>60) Glucose Level 101 MG/DL (74-106) Hemoglobin A1c 5.9 % (4.3-6.0) Uric Acid 4.4 MG/DL (2.6-7.2) Calcium Level 9.2 MG/DL (8.5-10.1) Phosphorus Level 3.3 MG/DL (2.5-4.9) Magnesium Level 2.0 MG/DL (1.8-2.4) Iron Level 87 ug/dL (50-175) Total Iron Binding Capacity 201 ug/dL (250-450) L Percent Iron Saturation 43 % (15-50) Unsaturated Iron Binding 114 ug/dL (112-346) Ferritin 899 NG/ML (8-388) H Total Bilirubin 0.4 MG/DL (0.2-1.0) Gamma Glutamyl Transpeptidase 27 U/L (5-85) Aspartate Amino Transf (AST/SGOT) 20 U/L (15-37) Alanine Aminotransferase (ALT/SGPT) 19 U/L (12-78) Alkaline Phosphatase 51 U/L (46-116) C-Reactive Protein, Quantitative < 0.4 mg/dL (0.00-0.90) Pro-B-Type Natriuretic Peptide 4427 pg/mL (0-125) H Total Protein 6.5 G/DL (6.4-8.2) Albumin 3.2 G/DL (3.4-5.0) L Globulin 3.3 g/dL Albumin/Globulin Ratio 1.0 (1.0-2.7) Triglycerides Level 57 MG/DL (30-150) Cholesterol Level 194 MG/DL (< 200) LDL Cholesterol 100 mg/dL (<100) HDL Cholesterol 74 MG/DL (40-60) H Cholesterol/HDL Ratio 2.6 (3.3-4.4) L Vitamin B12 Level 412 PG/ML (193-986) Folate 5.0 NG/ML (8.6-58.9) L Thyroid Stimulating Hormone (TSH) 1.017 uiU/mL (0.358-3.740) Random Vancomycin Level 15.0 ug/mL Current Medications Medications (Trade) Dose Ordered Sig/Jesus Route PRN Reason Start Time Stop Time Status Last Admin Dose Admin Acetaminophen (Tylenol) 650 mg Q4H PRN ORAL For Pain 04/04/19 23:15 05/04/19 23:14 Acetaminophen/ Hydrocodone Bitart ([place] 5/325) 1 tab Q4H PRN ORAL For Pain 04/04/19 23:15 04/11/19 23:14 Albuterol Sulfate (Proventil) 2.5 mg Q6H PRN HHN wheezing 04/04/19 23:15 04/09/19 23:14 Apixaban (Eliquis) 2.5 mg BID ORAL 04/05/19 18:00 05/05/19 17:59 04/06/19 17:37 Artificial Tears (Akwa-Tears) 1 drop DAILY BOTH EYES 04/05/19 09:00 05/05/19 08:59 04/06/19 09:35 Aspirin (ASA) 81 mg DAILY ORAL 04/05/19 09:00 05/05/19 08:59 04/06/19 09:28 Atorvastatin Calcium (Lipitor) 10 mg BEDTIME ORAL 04/05/19 21:00 05/05/19 20:59 04/05/19 21:21 Dextrose (Dextrose 50%) 25 ml Q30M PRN IV Hypoglycemia 04/04/19 23:15 05/04/19 23:14 Dextrose (Dextrose 50%) 50 ml Q30M PRN IV Hypoglycemia 04/04/19 23:15 05/04/19 23:14 Docusate Sodium (Colace) 100 mg TID ORAL 04/05/19 13:00 05/05/19 08:59 04/06/19 17:37 Folic Acid (Folate) 3 mg DAILY ORAL 04/06/19 15:30 05/06/19 15:29 04/06/19 15:40 Gabapentin (Neurontin) 100 mg TID ORAL 04/05/19 13:00 05/05/19 08:59 04/06/19 17:37 Hydralazine HCl (Apresoline) 25 mg Q4H PRN ORAL SBP > 160 mm Hg 04/04/19 23:15 05/04/19 23:14 Insulin Aspart (NovoLOG) BEFORE MEALS AND HS SUBQ 04/05/19 06:30 05/05/19 06:29 04/06/19 11:35 Lisinopril (Zestril) 10 mg DAILY ORAL 04/06/19 09:00 05/05/19 08:59 04/06/19 09:28 Lorazepam (Ativan) 1 mg DAILYPRN PRN ORAL For Anxiety 04/05/19 17:00 04/12/19 16:59 04/05/19 17:23 Ondansetron HCl (Zofran) 4 mg Q6H PRN IVP Nausea & Vomiting 04/05/19 23:15 05/05/19 23:14 Sevelamer Carbonate (Renvela) 800 mg THREE TIMES A DAY ORAL 04/05/19 09:00 05/05/19 08:59 04/06/19 09:29 Vancomycin HCl (Vanco rx to dose) 1 ea DAILY PRN MISC Per rx protocol 04/04/19 23:15 05/04/19 23:14 Vancomycin HCl/ Dextrose 275 ml @ 183.333 mls/hr ONCE PRN IVPB TO BE GIVEN 04/07/19 DURING HD 04/07/19 06:00 04/07/19 23:59 Fide Herr M.D. Apr 06, 2019 19:07
--- NOTE | 2019-04-06 19:30 | NUR ---
HAND-OFF: Report given to Aminah BEAN. Patient in stable condition.
--- NOTE | 2019-04-06 19:31 | NUR ---
NURSE NOTES: Patient lying in bed awake. No complain of pain or distress at this time. Wound dressing intact and dry. Left AV shunt bruit and thrill present. Bed lowest position, locked, side rails x2. Call light within reach. Will continue to monitor.
[2019-04-06 20:00] VITALS: BP 165/92
[2019-04-07] VITALS: BP 124/66
[2019-04-07 04:00] VITALS: BP 126/59
[2019-04-07] MEDS ORDERED: Vancomycin 1.25gm Premix IVPB PRN (06:00)
[2019-04-07] MEDS: NovoLOG Insulin Flexpen SUBQ SCH ×3 (06:28→17:34)
--- NOTE | 2019-04-07 07:34 | NUR ---
HAND-OFF: Report given to VIKAS Urban.
--- NOTE | 2019-04-07 07:57 | NUR ---
NURSE NOTES: Received report from VIKAS Hoffman. Rounding done with outgoing nurse. Patient is asleep. Bed in lowest position, call light within reach. Will continue to monitor.
[2019-04-07 08:00] VITALS: BP 146/73
[2019-04-07] MEDS: Artificial Tears 1.4% Op Soln BOTH EYES SCH (08:30)
[2019-04-07] MEDS: Eliquis 2.5mg tablet ORAL SCH ×2 (08:30→17:33)
[2019-04-07] MEDS: Lisinopril 10mg tab ORAL SCH (08:30)
[2019-04-07] MEDS: Renvela 800mg Pkt ORAL SCH ×4 (08:30→17:35)
[2019-04-07] MEDS: Docusate 100mg cap ORAL SCH ×3 (08:30→17:33)
[2019-04-07] MEDS: Aspirin Baby 81mg ORAL SCH (08:30)
--- NOTE | 2019-04-07 08:46 | NUR ---
NURSE NOTES: Called Dr. 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 ordered contact isolation. Noted and carried out.
[2019-04-07] MEDS: LORazepam 1mg tab ORAL PRN (10:16)
[2019-04-07 11:49] LABS: BASOPHILS % (AUTO) 1.2 % (0.0-2.0); EOSINOPHILS % (AUTO) 2.5 % (0.0-3.0); HEMATOCRIT 35.7 % (37.0-47.0); HEMOGLOBIN 11.4 G/DL (12.0-16.0); LYMPHOCYTES % (AUTO) 23.3 % (20.0-45.0); MEAN CORPUSCULAR VOLUME 103 FL (80-99); MONOCYTES % (AUTO) 8.7 % (1.0-10.0); NEUTROPHILS % (AUTO) 64.4 % (45.0-75.0); PLATELET COUNT 201 K/UL (150-450); RED BLOOD COUNT 3.48 M/UL (4.20-5.40); RED CELL DISTRIBUTION WIDTH 14.5 % (11.6-14.8); WHITE BLOOD COUNT 7.2 K/UL (4.8-10.8)
[2019-04-07] MEDS ORDERED: Vanco pharmacy to dose MISC (11:51)
[2019-04-07 12:00] VITALS: BP 132/60
--- NOTE | 2019-04-07 12:08 | NUR ---
NURSE NOTES: Dr. Fam called and ordered no procedure today, resume the diet. Noted and carried out.
--- NOTE | 2019-04-07 12:55 | NUR ---
NURSE NOTES: Vancomycin was not hung at the end of HD. Dr. Banegas was notified. Addendum: 04/07/19 at 1440 by Landy Carver RN ADDENDUM Dr. Banegas ordered continue vancomycin for 2 wks. Noted and carried out.
--- NOTE | 2019-04-07 12:56 | Nephrology Progress Note ---
Assessment/Plan Problem List: (1) ESRD (end stage renal disease) (2) Bradycardia (3) HTN (hypertension) (4) Anemia Assessment Admitted with left heel ulcer / cellulitis Other conditions: - ESRD (end stage renal disease) - Diabetic nephropathy - Bradycardia - Diabetic nephropathy - h/o Anemia of CKD - HTN (hypertension) - h/o At fib - CVA left weakness Plan Plan: HD 04/05 and 04/07 - in process Adjust BP meds Podiatry / Vasc surgical eval Subjective ROS Limited/Unobtainable: No Constitutional: Reports: malaise Objective Objective Last 24 Hour Vital Signs Date Time Temp Pulse Resp B/P (MAP) Pulse Ox O2 Delivery O2 Flow Rate FiO2 04/07/19 09:00 Room Air 04/07/19 08:13 64 18 95 Room Air 21 04/07/19 08:00 99.4 60 20 146/73 (97) 95 04/07/19 04:00 99.7 60 18 126/59 (81) 95 04/07/19 00:00 98.4 60 18 124/66 (85) 94 04/06/19 21:00 Room Air 04/06/19 20:18 60 18 96 Room Air 04/06/19 20:00 98.1 60 18 165/92 (116) 94 04/06/19 16:00 98.1 60 18 160/41 (80) 95 Intake and Output 04/06/19 04/07/19 19:00 07:00 Intake Total 240 ml 100 ml Balance 240 ml 100 ml Intake Oral 240 ml 100 ml # Voids 2 Laboratory Tests 04/07/19 11:00: White Blood Count 7.2, Red Blood Count 3.48L, Hemoglobin 11.4L, Hematocrit 35.7L , Mean Corpuscular Volume 103H, Mean Corpuscular Hemoglobin 32.6H, Mean Corpuscular Hemoglobin Concent 31.8L, Red Cell Distribution Width 14.5, Platelet Count 201, Mean Platelet Volume 6.6, Neutrophils (%) (Auto) 64.4, Lymphocytes (%) (Auto) 23.3, Monocytes (%) (Auto) 8.7, Eosinophils (%) (Auto) 2.5, Basophils (%) (Auto) 1.2 Height (Feet): 5 Height (Inches): 5.00 Weight (Pounds): 229 General Appearance: no apparent distress Objective no change Manas Stephenson MD Apr 07, 2019 12:56
--- NOTE | 2019-04-07 13:36 | NUR ---
NURSE NOTES: Dr. Banegas ordered d/c back to previous SNF. Noted and carried out.
--- NOTE | 2019-04-07 14:31 | Infectious Diseases Prog Note ---
Assessment/Plan Problems: (1) Cellulitis of left foot Assessment & Plan: with superficial wound , keep off loading continue vancomycin after HD dosed as per pharmacy , local wound care and dressings . recommend two weeks course of treatment with vancomycin after HD, with close follow with director ambulatory (2) Heel abrasion Assessment & Plan: suspect due to local pressure , continue antibiotics and off loading, follow up with director ambulatory (3) ESRD (end stage renal disease) Assessment & Plan: continue HD as per renal Subjective Constitutional: Reports: no symptoms HEENT: Reports: no symptoms Respiratory: Reports: no symptoms Breasts: Reports: no symptoms Cardiovascular: Reports: no symptoms Gastrointestinal/Abdominal: Reports: no symptoms Genitourinary: Reports: no symptoms Neurologic: Reports: no symptoms Psychiatric: Reports: no symptoms Skin: Reports: no symptoms Endocrine: Reports: no symptoms Hematologic: Reports: no symptoms Musculoskeletal: Reports: no symptoms Allergies: Coded Allergies: PENICILLINS (Verified Allergy, Unknown, 11/10/09) Subjective up in bed comfortable, denied any symptoms, daughter at bedside Objective Vital Signs Last 24 Hour Vital Signs Date Time Temp Pulse Resp B/P (MAP) Pulse Ox O2 Delivery O2 Flow Rate FiO2 04/07/19 12:00 99.4 66 20 132/60 (84) 98 04/07/19 09:00 Room Air 04/07/19 08:13 64 18 95 Room Air 21 04/07/19 08:00 99.4 60 20 146/73 (97) 95 04/07/19 04:00 99.7 60 18 126/59 (81) 95 04/07/19 00:00 98.4 60 18 124/66 (85) 94 04/06/19 21:00 Room Air 04/06/19 20:18 60 18 96 Room Air 04/06/19 20:00 98.1 60 18 165/92 (116) 94 04/06/19 16:00 98.1 60 18 160/41 (80) 95 Height (Feet): 5 Height (Inches): 5.00 Weight (Pounds): 229 General Appearance: WD/WN, no acute distress HEENT: normocephalic, atraumatic, anicteric, mucous membranes moist, PERRL, EOMI, pharynx normal, supple, no JVD Respiratory/Chest: chest wall non-tender, lungs clear, normal breath sounds, no respiratory distress, no accessory muscle use Cardiovascular: normal peripheral pulses, normal rate, regular rhythm, no gallop/murmur, no JVD Abdomen: normal bowel sounds, soft, non tender, no organomegaly, non distended , no mass, no scars Genitourinary: normal external genitalia Extremities: no cyanosis, no clubbing Skin: no rash, no lesions Neurologic/Psychiatric: alert, oriented x 3, responsive Lymphatic: no neck adenopathy, no groin adenopathy Musculoskeletal: normal muscle bulk, no effusion Microbiology Date/Time Source Procedure Growth Status 04/04/19 18:30 Blood Blood Culture - Preliminary NO GROWTH AFTER 48 HOURS Resulted 04/04/19 18:25 Blood Blood Culture - Preliminary NO GROWTH AFTER 48 HOURS Resulted 04/04/19 21:00 Nasal Nares MRSA Culture - Final NO METHICILLIN RESISTANT STAPH AUREUS... Complete 04/04/19 21:00 Rectum VRE Culture - Final Enterococcus Faecalis - Vre Complete 04/04/19 19:16 Rectum - Final NO CARBAPENEM-RESISTANT ENTEROBACTERI... Complete Laboratory Tests Test 04/07/19 11:00 White Blood Count 7.2 K/UL (4.8-10.8) Red Blood Count 3.48 M/UL (4.20-5.40) L Hemoglobin 11.4 G/DL (12.0-16.0) L Hematocrit 35.7 % (37.0-47.0) L Mean Corpuscular Volume 103 FL (80-99) H Mean Corpuscular Hemoglobin 32.6 PG (27.0-31.0) H Mean Corpuscular Hemoglobin Concent 31.8 G/DL (32.0-36.0) L Red Cell Distribution Width 14.5 % (11.6-14.8) Platelet Count 201 K/UL (150-450) Mean Platelet Volume 6.6 FL (6.5-10.1) Neutrophils (%) (Auto) 64.4 % (45.0-75.0) Lymphocytes (%) (Auto) 23.3 % (20.0-45.0) Monocytes (%) (Auto) 8.7 % (1.0-10.0) Eosinophils (%) (Auto) 2.5 % (0.0-3.0) Basophils (%) (Auto) 1.2 % (0.0-2.0) Current Medications Medications (Trade) Dose Ordered Sig/Jesus Route PRN Reason Start Time Stop Time Status Last Admin Dose Admin Acetaminophen (Tylenol) 650 mg Q4H PRN ORAL For Pain 04/04/19 23:15 05/04/19 23:14 Acetaminophen/ Hydrocodone Bitart (Oakley 5/325) 1 tab Q4H PRN ORAL For Pain 04/04/19 23:15 04/11/19 23:14 Albuterol Sulfate (Proventil) 2.5 mg Q6H PRN HHN wheezing 04/04/19 23:15 04/09/19 23:14 Apixaban (Eliquis) 2.5 mg BID ORAL 04/05/19 18:00 05/05/19 17:59 04/07/19 08:30 Artificial Tears (Akwa-Tears) 1 drop DAILY BOTH EYES 04/05/19 09:00 05/05/19 08:59 04/07/19 08:30 Aspirin (ASA) 81 mg DAILY ORAL 04/05/19 09:00 05/05/19 08:59 04/07/19 08:30 Atorvastatin Calcium (Lipitor) 10 mg BEDTIME ORAL 04/05/19 21:00 05/05/19 20:59 04/06/19 21:33 Dextrose (Dextrose 50%) 25 ml Q30M PRN IV Hypoglycemia 04/04/19 23:15 05/04/19 23:14 Dextrose (Dextrose 50%) 50 ml Q30M PRN IV Hypoglycemia 04/04/19 23:15 05/04/19 23:14 Docusate Sodium (Colace) 100 mg TID ORAL 04/05/19 13:00 05/05/19 08:59 04/07/19 13:16 Folic Acid (Folate) 3 mg DAILY ORAL 04/06/19 15:30 05/06/19 15:29 04/07/19 08:30 Gabapentin (Neurontin) 100 mg TID ORAL 04/05/19 13:00 05/05/19 08:59 04/07/19 13:16 Hydralazine HCl (Apresoline) 25 mg Q4H PRN ORAL SBP > 160 mm Hg 04/04/19 23:15 05/04/19 23:14 Insulin Aspart (NovoLOG) BEFORE MEALS AND HS SUBQ 04/05/19 06:30 05/05/19 06:29 04/07/19 13:18 Lisinopril (Zestril) 10 mg DAILY ORAL 04/06/19 09:00 05/05/19 08:59 04/06/19 09:28 Lorazepam (Ativan) 1 mg DAILYPRN PRN ORAL For Anxiety 04/05/19 17:00 04/12/19 16:59 04/07/19 10:16 Ondansetron HCl (Zofran) 4 mg Q6H PRN IVP Nausea & Vomiting 04/05/19 23:15 05/05/19 23:14 Sevelamer Carbonate (Renvela) 800 mg THREE TIMES A DAY ORAL 04/05/19 09:00 05/05/19 08:59 04/07/19 08:30 Vancomycin HCl (Vanco rx to dose) 1 ea DAILY PRN MISC Per rx protocol 04/04/19 23:15 05/04/19 23:14 Vancomycin HCl/ Dextrose 275 ml @ 183.333 mls/hr ONCE PRN IVPB TO BE GIVEN 04/07/19 DURING HD 04/07/19 06:00 04/07/19 23:59 Fide Herr M.D. Apr 07, 2019 14:31
[2019-04-07 14:56] LABS: ALANINE AMINOTRANSFERASE 21 U/L (12-78); ALBUMIN 3.7 G/DL (3.4-5.0); ALKALINE PHOSPHATASE 57 U/L (46-116); ANION GAP 8 mmol/L (5-15); ASPARTATE AMINO TRANSFERASE 26 U/L (15-37); BILIRUBIN,TOTAL 0.5 MG/DL (0.2-1.0); BLOOD UREA NITROGEN 29 mg/dL (7-18); CALCIUM 9.4 MG/DL (8.5-10.1); CARBON DIOXIDE 31 MMOL/L (21-32); CHLORIDE 98 MMOL/L (98-107); CREATININE 4.1 MG/DL (0.55-1.30); POTASSIUM 3.9 MMOL/L (3.5-5.1); SODIUM 137 MMOL/L (136-145)
--- NOTE | 2019-04-07 15:14 | Surgery Progress Note ---
Surgery Progress Note Subjective Symptoms: improved, tolerating diet, passing flatus Objective Last 24 Hour Vital Signs Date Time Temp Pulse Resp B/P (MAP) Pulse Ox O2 Delivery O2 Flow Rate FiO2 04/07/19 12:00 99.4 66 20 132/60 (84) 98 04/07/19 09:00 Room Air 04/07/19 08:13 64 18 95 Room Air 21 04/07/19 08:00 99.4 60 20 146/73 (97) 95 04/07/19 04:00 99.7 60 18 126/59 (81) 95 04/07/19 00:00 98.4 60 18 124/66 (85) 94 04/06/19 21:00 Room Air 04/06/19 20:18 60 18 96 Room Air 04/06/19 20:00 98.1 60 18 165/92 (116) 94 04/06/19 16:00 98.1 60 18 160/41 (80) 95 I&O Intake and Output 04/06/19 04/07/19 19:00 07:00 Intake Total 240 ml 100 ml Balance 240 ml 100 ml Intake Oral 240 ml 100 ml # Voids 2 Dressing: dry Wound: clean Cardiovascular: RSR Respiratory: clear Abdomen: soft, flat, non-tender, present bowel sounds Extremities: edema, cyanosis, no tenderness, other Laboratory Tests Test 04/07/19 11:00 04/07/19 13:45 White Blood Count 7.2 K/UL (4.8-10.8) Red Blood Count 3.48 M/UL (4.20-5.40) L Hemoglobin 11.4 G/DL (12.0-16.0) L Hematocrit 35.7 % (37.0-47.0) L Mean Corpuscular Volume 103 FL (80-99) H Mean Corpuscular Hemoglobin 32.6 PG (27.0-31.0) H Mean Corpuscular Hemoglobin Concent 31.8 G/DL (32.0-36.0) L Red Cell Distribution Width 14.5 % (11.6-14.8) Platelet Count 201 K/UL (150-450) Mean Platelet Volume 6.6 FL (6.5-10.1) Neutrophils (%) (Auto) 64.4 % (45.0-75.0) Lymphocytes (%) (Auto) 23.3 % (20.0-45.0) Monocytes (%) (Auto) 8.7 % (1.0-10.0) Eosinophils (%) (Auto) 2.5 % (0.0-3.0) Basophils (%) (Auto) 1.2 % (0.0-2.0) Prothrombin Time 11.1 SEC (9.30-11.50) Prothromb Time International Ratio 1.0 (0.9-1.1) Activated Partial Thromboplast Time 25 SEC (23-33) Sodium Level 137 MMOL/L (136-145) Potassium Level 3.9 MMOL/L (3.5-5.1) Chloride Level 98 MMOL/L (98-107) Carbon Dioxide Level 31 MMOL/L (21-32) Anion Gap 8 mmol/L (5-15) Blood Urea Nitrogen 29 mg/dL (7-18) H Creatinine 4.1 MG/DL (0.55-1.30) H Estimat Glomerular Filtration Rate 13.1 mL/min (>60) Glucose Level 143 MG/DL (74-106) H Calcium Level 9.4 MG/DL (8.5-10.1) Total Bilirubin 0.5 MG/DL (0.2-1.0) Aspartate Amino Transf (AST/SGOT) 26 U/L (15-37) Alanine Aminotransferase (ALT/SGPT) 21 U/L (12-78) Alkaline Phosphatase 57 U/L (46-116) Total Protein 7.3 G/DL (6.4-8.2) Albumin 3.7 G/DL (3.4-5.0) Globulin 3.6 g/dL Albumin/Globulin Ratio 1.0 (1.0-2.7) Plan Problems: (1) Diabetic nephropathy (2) ESRD (end stage renal disease) (3) Cellulitis of left foot Assessment & Plan: 68-year-old female with multiple medical comorbidities presents with left lower extremity pain cellulitis and slow healing ulcer. Diabetic left heel ulcer, necrotic ulcer of left helix. Decreased motor neuron sensory and left lower extremity patient unsure how she developed this ulcer but states that she is been receiving care. Looks like care plan has been going well. Appreciate podiatry input and agree with care plan. Plain films noted as below. Continue with antibiotics as per ID. No acute surgical intervention recommended. Pending arterial ultrasound Will follow with recommendations. Thank you for this consultation Plain films: TECHNIQUE: Frontal, lateral and oblique views of the left foot. COMPARISON: No relevant prior studies available. FINDINGS: Bones/joints: No acute fracture or malalignment. Diffuse osteopenia. Soft tissues: Unremarkable. No radiopaque foreign body. Vasculature: Vascular calcifications. IMPRESSION: No acute fracture or malalignment. (4) Heel abrasion (5) Bradycardia (6) Volume overload (7) Elevated troponin I level (8) Urinary tract infection due to Proteus (9) Dyspnea (10) Symptomatic anemia (11) Acute on chronic renal failure (12) Anemia (13) HTN (hypertension) Luis Alberto Cade Apr 07, 2019 15:14
--- NOTE | 2019-04-07 15:59 | NUR ---
NURSE NOTES:Pt presented on admission with diabetic L heel ulcer. Base of wound erythematous but dry.(L)5.5cm x (W)6cm. Stable dry eschar noted to lateral L 1st metatarsal (L)1.3cm x (W)0.6cm. Periwound without erythema,induration or fluctuance. R heel dry,blanchable and firm. Moisture Intertrigo noted to abd folds. Partial thickness pressure injury noted to sacrum (L)2.6cm x (W)0.8cm. Base of wound moist with non-blanchable erythema without induration periwound. Non-tender when minimally palpated. Tx.Plan: Apply Moisture Barrier Paste to sacrum. Cover with Optifoam drsg. Change every 3 days and prn. Wash abd folds with soap and water.Pat dry.Apply Moisture Barrier to abd folds Twice daily. Wound care orders as per Surgeon. Off-load heels with PIllow. Reposition at least every 2hours or as tolerated.
[2019-04-07 16:00] VITALS: BP 123/55
--- NOTE | 2019-04-07 16:00 | NUR ---
NURSE NOTES: Got IV access on right hand at 1520 and vancomycin 1.25gm was given at 1532.
--- NOTE | 2019-04-07 17:03 | NUR ---
DISCHARGE PLANNED PT WILL DC TO [facility] ROOM [address] SKILLED T [phone] FOR NURSE TO NURSE REPORT [facility] WILL PLATE GLASS INSTALLER HELPER AT 1800
--- NOTE | 2019-04-07 17:27 | General Progress Note ---
Assessment/Plan Assessment/Plan: S: I am doing ok O: Appears comfortable, pain is well managed PHYSICAL EXAMINATION: VITAL SIGNS: GENERAL: Elderly female, obese, lying in bed, awake, alert, and oriented, not in acute distress.HEENT: Normocephalic and atraumatic. Pupils are reactive to light equally. Moist oral mucosa. No exudate or thrush.NECK: Supple. No lymphadenopathy. CARDIOVASCULAR: Regular rate and rhythm. No murmur or gallop. LUNGS: Clear bilaterally. No wheezing or rhonchi. Diminished breathing sounds at the bases. ABDOMEN: Soft, obese, nontender, and nondistended. Normal bowel sounds. No hepatosplenomegaly or ascites.EXTREMITIES: She had left heel abrasion of the skin with a clear base. No draining surrounding cellulitis and redness. Tender to palpation. No clubbing or cyanosis in the foot. No significant pedal edema. Meds: Including Vanco is reviewed. ASSESSMENT AND PLAN: 1. Cellulitis of the left foot with superficial wound. Infectious Disease to manage with recommendations of local wound and dressing care. Heel abrasion, most likely secondary to local pressure. Defer antibiotics per Dr. Herr. 2. Hyperkalemia. The patient will undergo hemodialysis today. Defer to Nephrology. 3. End-stage renal disease. The patient Sunday, , Sunday, to undergo hemodialysis today per Dr. Stephenson. 4. Anemia of chronic kidney disease. Hemoglobin currently 10.3. Hold off Epogen until hemoglobin less than 10. 5. Hypertension. Adjust medications as deemed appropriate. 6. DVT prophylaxis. At this time, the patient is already on Eliquis. No further medications required. 7. Diabetes mellitus. Continue insulin sliding scale and home anti-glycemic medications. 8. Secondary hyperparathyroidism. Continue Renvela. Plan: will continue with IV antibiotic as outpatient Subjective Allergies: Coded Allergies: PENICILLINS (Verified Allergy, Unknown, 11/10/09) Objective Last 24 Hour Vital Signs Date Time Temp Pulse Resp B/P (MAP) Pulse Ox O2 Delivery O2 Flow Rate FiO2 04/07/19 16:00 98.1 60 20 123/55 (77) 94 04/07/19 12:00 99.4 66 20 132/60 (84) 98 04/07/19 09:00 Room Air 04/07/19 08:13 64 18 95 Room Air 21 04/07/19 08:00 99.4 60 20 146/73 (97) 95 04/07/19 04:00 99.7 60 18 126/59 (81) 95 04/07/19 00:00 98.4 60 18 124/66 (85) 94 04/06/19 21:00 Room Air 04/06/19 20:18 60 18 96 Room Air 04/06/19 20:00 98.1 60 18 165/92 (116) 94 Intake and Output 04/06/19 04/07/19 19:00 07:00 Intake Total 240 ml 100 ml Balance 240 ml 100 ml Intake Oral 240 ml 100 ml # Voids 2 Laboratory Tests 04/07/19 11:00: White Blood Count 7.2, Red Blood Count 3.48L, Hemoglobin 11.4L, Hematocrit 35.7L , Mean Corpuscular Volume 103H, Mean Corpuscular Hemoglobin 32.6H, Mean Corpuscular Hemoglobin Concent 31.8L, Red Cell Distribution Width 14.5, Platelet Count 201, Mean Platelet Volume 6.6, Neutrophils (%) (Auto) 64.4, Lymphocytes (%) (Auto) 23.3, Monocytes (%) (Auto) 8.7, Eosinophils (%) (Auto) 2.5, Basophils (%) (Auto) 1.2 04/07/19 13:45: Prothrombin Time 11.1, Prothromb Time International Ratio 1.0, Activated Partial Thromboplast Time 25, Sodium Level 137, Potassium Level 3.9, Chloride Level 98, Carbon Dioxide Level 31, Anion Gap 8, Blood Urea Nitrogen 29H, Creatinine 4.1H, Estimat Glomerular Filtration Rate 13.1, Glucose Level 143H, Calcium Level 9.4, Total Bilirubin 0.5, Aspartate Amino Transf (AST/SGOT) 26, Alanine Aminotransferase (ALT/SGPT) 21, Alkaline Phosphatase 57, Total Protein 7.3, Albumin 3.7, Globulin 3.6, Albumin/Globulin Ratio 1.0 Height (Feet): 5 Height (Inches): 5.00 Weight (Pounds): 229 Danie Banegas MD Apr 07, 2019 17:27
--- NOTE | 2019-04-07 18:13 | NUR ---
NURSE NOTES: Report was given to VIKAS Barroso at [facility]. Informed daughter (Ruby Verduzco) that pt will be d/c to [facility].
--- NOTE | 2019-04-07 18:45 | NUR ---
NURSE NOTES: Belongings checked with pt and given to pt. IV acess, arm band removed. Patient discharged with ambulance person in stable condition.
--- NOTE | 2019-04-08 08:26 | Discharge Summary ---
Discharge Summary Discharge Summary _ DATE OF ADMISSION: 04/04/2019 DATE OF DISCHARGE: 04/07/2019 DISCHARGED BY: Dr. Banegas REASON FOR ADMISSION: 68 years old female, with past medical history of diabetes mellitus, end-stage renal disease on hemodialysis, COPD, hypertension, history of CVA, anemia of chronic kidney disease , presented to emergency department due to left heel pain over the last week. Patient noted increased discharge from the area during the day She presented to emergency department for further evaluation and management. She denied chest pain, shortness of breath. No nausea, no vomiting, no diarrhea. After initial evaluation in emergency department, patient was diagnosed with cellulitis of left heel and admitted for further management. CONSULTANTS: ID specialist director database Dr. Stephenson surgery Dr. Cade podiatry dr. Ramirez [facility] COURSE: Patient admitted to medical surgical floor. Patient had left heel ulcer with cellulitis. Heel abrasion was most likely secondary to local pressure. Patient also demonstrated a left hallux eschar, which was dry and stable. X-ray of the left heel revealed no acute fracture or misalignment. Patient started on empiric antibiotic for cellulitis as per infectious disease specialist recommendation. Blood cultures were negative. Patient remained afebrile, no leukocytosis. Left foot was offloaded. Wound care provided. Vancomycin was dosed as per pharmacy. Hemodialysis was provided as per director database recommendations with close monitoring of volumes , renal parameters and electrolytes. Blood pressure medication were adjusted.. General surgeon seen and evaluated patient for slow healing ulcer Per surgeon patient had diabetic left heel ulcer and necrotic ulcer of left hallux. Surgeon recommended continue with antibiotic as per ID recommendation. Wound care provided as per surgeon recommendation. Continue wound care at the facility. No acute surgical intervention was recommended. Arterial and venous duplex were taken. Cylinder Block Mechanic seen and evaluated patient, and gree with wound care provided. Per heddle machine operator, no surgical intervention was necessarily. No evidence of deep infection or abscess. Patient was started with physical therapy to improve mobility. Hemoglobin and hematocrit were closely monitored with goal to keep hemoglobin above 7. Prior to discharge hemoglobin 11.4, hematocrit 25.7. Anemia work-up was consistent with anemia of chronic deficiency with ferritin 899. Noted low folic acid level. Patient started on folic acid replacement. Lipid panel was stable. Statin was continued. Blood pressure was managed with MARILOU inhibitor. Anticoagulation with Eliquis continued for history of atrial fibrillation. Blood sugar was managed with sliding scale of insulin as needed. Renvela continued. Pain management was addressed. DVT and GI prophylaxis provided. Supportive care provided. Bowel regimen instituted. Patient clinically stabilized and was ready for discharge to long-term facility for continuation of care FINAL DIAGNOSES: Cellulitis of left foot Left heel ulcer with cellulitis Left hallux eschar/stable left heel abrasion Hyperkalemia End-stage renal disease , on hemodialysis Diabetic nephropathy Hypertension Anemia of chronic kidney disease Diabetes mellitus type 2 Secondary hyperparathyroidism . History of CVA with left-sided weakness DISCHARGE MEDICATIONS: See Medication Reconciliation list. DISCHARGE INSTRUCTIONS: Patient was discharged to the long-term facility. Follow up with medical doctor at the facility. Follow-up with hemodialysis as scheduled. Complete vancomycin, dosed per pharmacy , as per ID specialist specified duration of treatment. I have been assigned to dictate discharge summary for this account. I was not involved in the patient's management. Cary Jarvis NP Apr 08, 2019 08:26
--- NOTE | 2019-04-09 11:27 | Diagnostic Imaging Report ---
APPROVED REPORT CPT Code: 18982 Present Symptoms Comments: Hx of a left upper arm AVF LEFT UPPER EXTREMITY: Imaging reveals patency of the arterio-venous fistula, the brachial artery to the cephalic vein, at upper arm level. There is no evidence of occlusion, pseudo-aneurysm or abscess. Velocities obtained from the fistula are as follows: Proximal brachial artery: 80 cm/s Proximal anastomosis: 3.0 mm, 400 cm/s Distal brachial artery is 34 cm/s, the Doppler velocity is monophasic with a mid systolic deceleration (abnormal). Radial artery is 37 cm/s, the Doppler velocity is biphasic. The upper extremity venous study is within normal limits.
--- NOTE | 2019-04-09 11:29 | Diagnostic Imaging Report ---
APPROVED REPORT CPT Code: 58870 Symptoms Comments: Left foot cellulitis RIGHT LEG: Common femoral artery waveform analysis was within normal limits at rest. Color flow duplex sonography revealed calcification throughout the proximal to diatal superficial femoral artery. There was no evidence of significant stenosis or occlusion within this segment. The popliteal artery was patent. The tibioperoneal trunk was not well visualized. The distal posterior and dorsalis pedis arteries were also calcified. The Doppler tibial artery waveform analysis was compatible with mild ischemia at rest. LEFT LEG: Common femoral artery waveform analysis was within normal limits at rest. Color flow duplex sonography revealed calcification throughout the proximal to diatal superficial femoral artery. There was no evidence of significant stenosis or occlusion within this segment. The popliteal artery was patent. The tibioperoneal trunk was not well visualized. The distal posterior and dorsalis pedis arteries were also calcified. The Doppler tibial artery waveform analysis was compatible with moderate to severe ischemia at rest.
--- NOTE | 2019-04-09 11:29 | Diagnostic Imaging Report ---
APPROVED REPORT CPT Code: 98014 Present Symptoms Comments: Swelling BILATERAL: Imaging reveals a patent deep venous system bilaterally. There is no evidence of thrombus within the femoral, popliteal or tibial segments. The greater saphenous veins are also within normal limits. Doppler indicates normal spontaneous flow within these segments.
== END 2019-04-07 18:40 | DRG 602 ==
LOC: EDBD 17:34 → EDBEDREQ 18:02 → EMR 18:30 → 3E 18:51 → EDBEDREQ 20:08 → 3E 21:50
PROC: 5A1D70Z Performance of Urinary Filtration, Intermittent, Less than 6 Hours Per Day (ICD-10-PCS; principal; 2019-04-05)
DX: L03.116 Cellulitis of left lower limb (principal); N18.6 End stage renal disease; L97.429 Non-pressure chronic ulcer of left heel and midfoot with unspecified severity; I12.0 Hypertensive chronic kidney disease with stage 5 chronic kidney disease or end stage renal disease; I69.354 Hemiplegia and hemiparesis following cerebral infarction affecting left non-dominant side; N25.81 Secondary hyperparathyroidism of renal origin; E11.621 Type 2 diabetes mellitus with foot ulcer; Z99.2 Dependence on renal dialysis; E87.5 Hyperkalemia; D63.1 Anemia in chronic kidney disease; E11.22 Type 2 diabetes mellitus with diabetic chronic kidney disease; J44.9 Chronic obstructive pulmonary disease, unspecified; S90.812A Abrasion, left foot, initial encounter; X58.XXXA Exposure to other specified factors, initial encounter; Z88.0 Allergy status to penicillin
CPT/HCPCS: 36415; 80053; 80061; 80202; 82553; 82607; 82728; 82746; 82962; 82977; 83036; 83540; 83550; 83605; 83735; 83880; 84100; 84443; 84550; 85025; 85610; 85730; 86140; 86706; 87040; 87081; 93005; 93925; 93970; 93971; 94664; 99285; J1815

== ENCOUNTER → 2019-05-07 | Outpatient (CLI) | payer MEDICARE, OTHER ==
[~2019-05-07] MED LIST changes: +ARTIFICIAL TEAR15 ML BOTH EYES; +FEROSUL325 M1 PO; +FLEET ENEMA133 ML RECTAL; +PRO-STAT LIQUID30 ML ORAL; +VITAMIN B COMP1 EAC5 PO; +Vanco pharmacy to dose MISC
== END | disposition home or self-care (01) ==
LOC: CAT 10:46
DX: L03.90 Cellulitis, unspecified (principal)

== ENCOUNTER 2020-02-27 12:33 | Inpatient (IN) | payer MEDICARE, OTHER ==
[~2020-02-27] VITALS: Ht 167.6 cm; Wt 113.9 kg
[2020-02-27] MEDS ORDERED: cefTRIAXone 1 GM in NS 55 ML IVPB ONE (13:00)
[2020-02-27 13:48] VITALS: BP 108/64
[2020-02-27 14:30] LABS: APPEARANCE,URINE CLOUDY; BILIRUBIN, URINE NEGATIVE (NEGATIVE); GLUCOSE, URINE (UA) NEGATIVE (NEGATIVE); KETONES,URINE 1+ (NEGATIVE); LEUKOCYTE ESTERASE ,URINE 3+ (NEGATIVE); NITRITE,URINE NEGATIVE (NEGATIVE); PH,URINE 7 (4.5-8.0); PROTEIN,URINE 3+ (NEGATIVE); UROBILINOGEN,URINE NORMAL MG/DL (0.0-1.0)
[2020-02-27 14:32] LABS: COLOR,URINE YELLOW
[2020-02-27] MEDS ORDERED: GABAPENTIN100 MG ORAL (14:38)
[2020-02-27] MEDS ORDERED: HYDRALAZINE HCL25 M1 ORAL (14:38)
[2020-02-27] MEDS ORDERED: metroNIDAZOLE 500mg tab ORAL ONE (14:45)
[2020-02-27] MEDS ORDERED: Lidocaine 1% MPF 10mg/ml 5ml INJ ONE ×2 (14:45)
[2020-02-27 14:55] LABS: BASOPHILS % (AUTO) 1.5 % (0.0-2.0); EOSINOPHILS % (AUTO) 6.3 % (0.0-3.0); HEMATOCRIT 38.8 % (37.0-47.0); HEMOGLOBIN 12.2 G/DL (12.0-16.0); LYMPHOCYTES % (AUTO) 27.9 % (20.0-45.0); MEAN CORPUSCULAR VOLUME 94 FL (80-99); MONOCYTES % (AUTO) 12.3 % (1.0-10.0); NEUTROPHILS % (AUTO) 52.1 % (45.0-75.0); PLATELET COUNT 136 K/UL (150-450); RED BLOOD COUNT 4.11 M/UL (4.20-5.40); RED CELL DISTRIBUTION WIDTH 16.2 % (11.6-14.8); WHITE BLOOD COUNT 5.5 K/UL (4.8-10.8)
[2020-02-27 15:04] LABS: ANION GAP 10 mmol/L (5-15); BLOOD UREA NITROGEN 22 mg/dL (7-18); CALCIUM 8.9 MG/DL (8.5-10.1); CARBON DIOXIDE 33 MMOL/L (21-32); CHLORIDE 103 MMOL/L (98-107); SODIUM 145 MMOL/L (136-145)
[2020-02-27 15:17] LABS: ALANINE AMINOTRANSFERASE 21 U/L (12-78); ALBUMIN/GLOBULIN RATIO 0.8 (1.0-2.7); ALKALINE PHOSPHATASE 67 U/L (46-116); ASPARTATE AMINO TRANSFERASE 16 U/L (15-37); BILIRUBIN,TOTAL 0.3 MG/DL (0.2-1.0); CKMB 0.9 NG/ML (0.0-3.6); CREATINE KINASE 37 U/L (26-308)
--- NOTE | 2020-02-27 17:11 | Diagnostic Imaging Report ---
EXAM: CT CT Chest no Contrast CLINICAL HISTORY: Cough and shortness of breath. TECHNIQUE: Axial images obtained through the chest with contrast. All CT scans at this facility are performed using dose modulation techniques as appropriate to a performed exam including the following: automated exposure control with adjustment of the mA and/or kV according to patient size. RADIATION DOSE: CTDIvol: 19.6 mGy DLP: 739.3 mGy-cm Dose information generated by the CT scanner is available in PACS. COMPARISON: None FINDINGS: Study slightly limited due to motion. Mild dependent atelectasis is noted in both lungs. Otherwise there is no acute alveolar process. Cardiac and mediastinal structures are within normal limits. There is no pathologic size adenopathy. There is no effusion. Degenerative changes of the spine noted. There is a pacer in the left upper chest. Limited images through the upper abdomen show gallstones. IMPRESSION: MILD DEPENDENT ATELECTASIS IN THE LUNG BASES. NO ACUTE CARDIOPULMONARY DISEASE. GALLSTONES.
--- NOTE | 2020-02-27 18:17 | Emergency Room Report ---
History of Present Illness General Chief Complaint: Upper Respiratory Illness Source: Family Member (Britt Aburto) Present Illness HPI 69-year-old female with history of type 2 diabetes, hypertension, renal failure currently under dialysis with a Port-A-Cath sent here by Dr. Banegas for CT scan of the chest to rule out COVID. Patient was tested for COVID on February 03, 2020 unassisted negative however continues to have cough, wheezing, shortness of breath. Patient stable with stable vital signs. Denies any abdominal pain, nausea vomiting diarrhea. Denies loss of taste and smell. Also reports that she has been having some urinary frequency and urgency as well as dysuria and a green vaginal discharge. Denies being sexually active. (Britt Aburto) Allergies: Coded Allergies: PENICILLINS (Verified Allergy, Unknown, 11/10/09) COVID-19 Screening Contact w/high risk pt: No Recent Travel to affected area: No Experienced COVID-19 symptoms?: Yes COVID-19 symptoms experienced: Cough COVID-19 Testing performed [employer]: Yes - February 03, 2020 COVID-19 Screening: Negative COVID-19 COVID-19 Testing Source: n (Britt Aburto) Patient History Pertinent Family History: none Now: No Reviewed Nursing Documentation: PMH: Agreed; PSxH: Agreed (Britt Aburto) Nursing Documentation-PMH Hx Cardiac Problems: Yes Hx Hypertension: Yes - 1978 Hx Pacemaker: Yes - 2018 Hx Asthma: Yes Hx COPD: Yes Hx Diabetes: Yes Hx Cancer: Yes Hx Gastrointestinal Problems: No Hx Dialysis: Yes - sun, , sun dialysis. right chest dialysis catheter Hx Neurological Problems: Yes Hx Cerebrovascular Accident: Yes - 2007 Hx Weakness: Yes - left side (Britt Aburto) Review of Systems All Other Systems: negative except mentioned in HPI (Britt Aburto) Physical Exam Vital Signs Date Time Temp Pulse Resp B/P (MAP) Pulse Ox O2 Delivery O2 Flow Rate FiO2 02/27/20 12:41 97.9 89 19 108/64 (79) 99 Room Air Sp02 EP Interpretation: reviewed, normal General Appearance: no apparent distress, alert, GCS 15, non-toxic Head: normocephalic, atraumatic Eyes: bilateral eye normal inspection, bilateral eye PERRL ENT: hearing grossly normal, normal pharynx, no angioedema, normal voice Neck: full range of motion, supple/symm/no masses Respiratory: no rhonchi, no retraction, wheezing Cardiovascular #1: regular rate, rhythm, no edema Gastrointestinal: normal bowel sounds, non tender, soft, non-distended, no guarding, no rebound Rectal: deferred Genitourinary: no CVA tenderness Musculoskeletal: back normal Neurologic: alert, motor strength/tone normal, oriented x3, sensory intact, responsive, speech normal Psychiatric: judgement/insight normal, memory normal, mood/affect normal, no suicidal/homicidal ideation Skin: no rash Lymphatic: no adenopathy (Britt Aburto) Medical Decision Making PA Attestation All my diagnosis and treatment plans were reviewed ad discussed with my supervising physician Dr. Holland (Britt Aburto) Diagnostic Impression: Primary Impression: Severe acute respiratory syndrome coronavirus 2 (SARS-CoV-2) infection ruled out Additional Impressions: UTI (urinary tract infection) Vaginitis ER Course 69-year-old female with history of type 2 diabetes, hypertension, renal failure currently under dialysis with a Port-A-Cath sent here by Dr. Banegas for CT scan of the chest to rule out COVID. Patient was tested for COVID on February 03, 2020 unassisted negative however continues to have cough, wheezing, shortness of breath. Patient stable with stable vital signs. Denies any abdominal pain, nausea vomiting diarrhea. Denies loss of taste and smell. Also reports that she has been having some urinary frequency and urgency as well as dysuria and a green vaginal discharge. Denies being sexually active. Ddx considered but are not limited to: Respiratory distress, ARDS, Covid-19, bronchitis, PNA, URI viral, bacterial bronchitis Vital signs: are WNL, pt. is afebrile H&PE are most consistent with: COVID rule out, respiratory distress, UTI ORDERS: Sepsis work-up, CT chest, ED INTERVENTIONS: Rocephin, Flagyl was given as IM and p.o. as it was difficult to start Patient. Patient is getting graft this year however not anytime soon Patient was admitted with diagnosis of respiratory distress, COVID rule out to Dr. Banegas under supervision of : Amalia pt stable at time of admission Patient was evaluated in the context of the global COVID-19 pandemic, which necessitated consideration that the patient might be at risk for infection with the SARS-COV-2 virus that causes COVID-19. Institutional protocols and algorithms that pertain to the evaluation of patients at risk for COVID-19 are in a state of rapid change based on information relieved by multiple regulatory bodies including the CDC and the federal and state organizations. These policies and algorithms were followed during the patient's care in the ED. (Britt Aburto) ER Course Patient seen and evaluated and treated by ZHANE Cross. Patient here for respiratory syndrome and COVID-19 rule out. Patient also has UTI and vaginitis. Patient will be admitted for further treatment and evaluation. (Verenice Gibbs M.D.) EKG Diagnostic Results Rate: normal Rhythm: NSR ST Segments: no acute changes Other Impression No acute ST changes (Britt Aburto) Chest X-Ray Diagnostic Results Chest X-Ray Diagnostic Results : Chest X-Ray Ordered: Yes # of Views/Limited/Complete: 1 View Indication: Shortness of Breath EP Interpretation: Yes ZHANE Xray: Interpretation reviewed, by supervising MD, and agrees with findings. Interpretation: no consolidation, no effusion, no pneumothorax Impression: No acute disease Electronically Signed by: Britt Olsen PA-C (Britt Aburto) CT/MRI/US Diagnostic Results CT/MRI/US Diagnostic Results : Imaging Test Ordered: CT chest Impression Atelectasis, however no groundglass opacities observed (Britt Aburto) Last Vital Signs Date Time Temp Pulse Resp B/P (MAP) Pulse Ox O2 Delivery O2 Flow Rate FiO2 02/27/20 13:48 97.9 89 19 108/64 99 Room Air (Britt Aburto) Disposition: ADMITTED INPATIENT Condition: Stable Referrals: Danie Banegas MD (PCP) Britt Aburto February 27, 2020 18:17 Verenice Gibbs M.D. February 27, 2020 18:36
[2020-02-27 18:43] VITALS: BP 110/70
[2020-02-27] MEDS ORDERED: Zolpidem 5mg tab ORAL PRN (21:30)
[2020-02-27] MEDS ORDERED: LORazepam Inj 2mg/ml 1ml IV PRN (21:30)
[2020-02-27] MEDS ORDERED: HydrALAZINE 25mg tab ORAL PRN (21:45)
[2020-02-27] MEDS ORDERED: HYDROcodone/Acetamin 5/325 tab ORAL PRN (21:45)
[2020-02-28] VITALS: BP 130/67
[2020-02-28 04:00] VITALS: BP 105/60
[2020-02-28] MEDS: NovoLOG Insulin Flexpen SUBQ SCH ×4 (06:14→21:00)
[2020-02-28 08:00] VITALS: BP 125/59
[2020-02-28] MEDS: Vitamin D 400 INTLU TAB ORAL SCH (08:58)
[2020-02-28] MEDS: HydrALAZINE 25mg tab ORAL SCH ×3 (09:00→21:28)
[2020-02-28] MEDS ORDERED: Lisinopril 10mg tab ORAL SCH (09:00)
[2020-02-28] MEDS ORDERED: Docusate 100mg cap ORAL SCH (09:00)
[2020-02-28] MEDS: cefTRIAXone 1 GM in D5W 55 ML IVPB SCH (09:00)
[2020-02-28] MEDS ORDERED: Amiodarone 200mg tab ORAL SCH (09:00)
[2020-02-28 09:01] LABS: BASOPHILS % (AUTO) 1.2 % (0.0-2.0); EOSINOPHILS % (AUTO) 5.7 % (0.0-3.0); HEMATOCRIT 45.2 % (37.0-47.0); HEMOGLOBIN 14.1 G/DL (12.0-16.0); LYMPHOCYTES % (AUTO) 27.7 % (20.0-45.0); MEAN CORPUSCULAR VOLUME 95 FL (80-99); MONOCYTES % (AUTO) 13.1 % (1.0-10.0); NEUTROPHILS % (AUTO) 52.2 % (45.0-75.0); PLATELET COUNT 122 K/UL (150-450); RED BLOOD COUNT 4.78 M/UL (4.20-5.40); WHITE BLOOD COUNT 4.4 K/UL (4.8-10.8)
[2020-02-28] MEDS: Eliquis 2.5mg tablet ORAL SCH ×2 (09:01→17:51)
[2020-02-28 09:40] LABS: ANION GAP 12 mmol/L (5-15); BLOOD UREA NITROGEN 32 mg/dL (7-18); CALCIUM 9.6 MG/DL (8.5-10.1); CARBON DIOXIDE 28 MMOL/L (21-32); CHLORIDE 103 MMOL/L (98-107); CREATININE 6.8 MG/DL (0.55-1.30); SODIUM 143 MMOL/L (136-145)
[2020-02-28 12:00] VITALS: BP 125/64
--- NOTE | 2020-02-28 14:14 | Consultation ---
Consult Note Consult Note I am asked to evaluate the patient at the request of Dr. Banegas for dialysis management. Patient gets dialysis Sunday under my supervision at [facility] renal care dialysis unit. She referred to emergency room with upper respiratory illness. She is 69 years old female Past history is significant for diabetes mellitus hypertension end-stage renal disease. Patient also has a pacemaker. Her dialysis access is right chest permacath. Patient has respiratory symptoms of cough wheezing and shortness of breath. COVID-19 Screening Contact w/high risk pt: No Recent Travel to affected area: No Experienced COVID-19 symptoms?: Yes COVID-19 symptoms experienced: Cough COVID-19 Testing performed [employer]: Yes - February 03, 2020 COVID-19 Screening: Negative COVID-19 COVID-19 Testing Source: n Patient records reviewed. Patient poor historian due to poor cognition Examined. . Assessment/Plan End-stage renal disease on hemodialysis Acute respiratory syndrome Urinary tract infection Diabetes mellitus, diabetic nephropathy History of CVA with left weakness History of anemia of chronic kidney disease history of bradycardia History of atrial fibrillation Hypertension Dementia Antibiotic and pulmonary toilet per pulmonary and ID Blood pressure and blood sugar in check Hemodialysis in a.m. Chest x-ray Per orders I spent an additional 35 minutes on review of medical records including prior hospital records ,consult notes ,progress notes ,procedures ,imaging ,labs , hemodynamics ,and other clinical documentations Manas Stephenson MD February 28, 2020 14:14
--- NOTE | 2020-02-28 14:57 | General Progress Note ---
Assessment/Plan Assessment/Plan: S: I want mignon O: No sob or CP. persistent dry cough PHYSICAL EXAMINATION: HEAD AND NECK: Atraumatic and normocephalic. CHEST: Clear to auscultation. HEART: S1, S2. Regular rate and rhythm. Bradycardic. MUSCULOSKELETAL: No gross lateralized motor deficit, paraparesis. NEUROLOGIC: The patient is awake and alert x1-2. LABORATORY AND DIAGNOSTIC DATA: Labs dated 02/28/20 reviewed ASSESSMENT: 1. SIRS 2. URTI- possibility of COVID merits exclusion workup 3. End-stage renal disease, on temporary PermCath hemodialysis access. 2. Paroxysmal atrial fibrillation, rate is stable. 3. Diabetes type 2. 4. Hypertension. 5. Hyperlipidemia. 6. CVA-history. 7. Dementia. 8. Gastrointestinal and deep vein thrombosis prophylaxes. PLAN OF CARE: C/w Empiricall abx. Isolation . Notes from Nephrology, pulmonary and ID are reviewed. primary Vascular Sx, Dr Fam is consulted Subjective Allergies: Coded Allergies: PENICILLINS (Verified Allergy, Unknown, 11/10/09) Objective Last 24 Hour Vital Signs Date Time Temp Pulse Resp B/P (MAP) Pulse Ox O2 Delivery O2 Flow Rate FiO2 02/28/20 14:14 125/64 02/28/20 12:00 97.6 60 20 125/64 (84) 95 02/28/20 12:00 60 02/28/20 09:00 125/59 02/28/20 09:00 Room Air 02/28/20 08:59 125/59 02/28/20 08:00 60 02/28/20 08:00 97.7 59 20 125/59 (81) 95 02/28/20 04:00 60 02/28/20 04:00 97.9 69 20 105/60 (75) 98 02/28/20 00:00 60 02/28/20 00:00 97.7 59 22 130/67 (88) 94 02/27/20 21:39 Room Air 02/27/20 20:00 60 02/27/20 19:10 97.9 85 19 110/70 99 Room Air 02/27/20 18:43 97.9 85 19 110/70 99 Room Air Laboratory Tests 02/28/20 07:30: White Blood Count 4.4L, Red Blood Count 4.78, Hemoglobin 14.1, Hematocrit 45.2, Mean Corpuscular Volume 95, Mean Corpuscular Hemoglobin 29.5, Mean Corpuscular Hemoglobin Concent 31.2L, Red Cell Distribution Width 16.0H, Platelet Count 122L , Mean Platelet Volume 7.3, Neutrophils (%) (Auto) 52.2, Lymphocytes (%) (Auto) 27.7, Monocytes (%) (Auto) 13.1H, Eosinophils (%) (Auto) 5.7H, Basophils (%) ( Auto) 1.2, Sodium Level 143, Potassium Level 4.0, Chloride Level 103, Carbon Dioxide Level 28, Anion Gap 12, Blood Urea Nitrogen 32H, Creatinine 6.8H, Estimat Glomerular Filtration Rate 7.3, Glucose Level 180H, Calcium Level 9.6 Height (Feet): 5 Height (Inches): 6.00 Weight (Pounds): 251 Danie Banegas MD February 28, 2020 14:57
--- NOTE | 2020-02-28 14:58 | History & Physical ---
History and Physical History & Physicial DATE OF ADMISSION: 02/28/2020 HISTORY OF PRESENT ILLNESS: The patient is a pleasant 69-year-old female with a history of end-stage renal disease, on hemodialysis. The patient has been transferred from her home with worsening dry cough. denies any chest pain. mild sob. The patient is currently receiving dialysis through a temporary PermCath. Today, the patient denies any chest pain or shortness of breath. No nausea. No vomitus. No diarrhea. No constipation. PAST MEDICAL HISTORY: Diabetes, CVA, paraparesis, and end-stage renal disease. ALLERGIES: Penicillin. PSH: Right permcath insertion . MEDICATIONS: Current hospital medications including, but not limited to lisinopril, hydralazine, aspirin, and amiodarone. SOCIAL HISTORY: The patient has a daughter who is involved in the care, is residing in her home with her daughter. she was dc/wd from the longterm facility. No prior history of illicit drug abuse, smoking, or alcohol abuse. PHYSICAL EXAMINATION: BP: 130/85, RR: 13, temperature 98.2, pulse oximetry 98% on room air, and pulse rate 60 to 65. HEAD AND NECK: Atraumatic and normocephalic. CHEST: Clear to auscultation. HEART: S1, S2. Regular rate and rhythm. Bradycardic. MUSCULOSKELETAL: No gross lateralized motor deficit, paraparesis. NEUROLOGIC: The patient is awake and alert x1-2. LABORATORY AND DIAGNOSTIC DATA: Labs dated 02/27/20 reviewed ASSESSMENT: 1. SIRS 2. URTI- possibility of COVID merits exclusion workup 3. End-stage renal disease, on temporary PermCath hemodialysis access. 2. Paroxysmal atrial fibrillation, rate is stable. 3. Diabetes type 2. 4. Hypertension. 5. Hyperlipidemia. 6. CVA-history. 7. Dementia. 8. Gastrointestinal and deep vein thrombosis prophylaxes. PLAN OF CARE: C/w Empiricall abx. Isolation . Nephrology, pulmonary and ID are notified and consulted Danie Banegas MD February 28, 2020 14:58
--- NOTE | 2020-02-28 15:00 | Consultation ---
DATE OF CONSULTATION: 02/28/2020 PULMONARY CONSULTATION CONSULTING PHYSICIAN: Suraj Roe MD. HISTORY OF PRESENT ILLNESS: This is a 69-year-old female with a history of ESRD on dialysis. She has a history of hypertension and diabetes. She was sent to the hospital with shortness of breath. The patient was previously tested to be negative, however, continued to have symptoms. She was admitted to the hospital for management and care. She denies any dysgeusia or lack of smell. The patient reported vaginal discharge and also urinary difficulty. PAST MEDICAL HISTORY: Notable for hypertension, permanent pacemaker, COPD, diabetes mellitus, chronic dialysis, previous CVA. REVIEW OF SYSTEMS: Denies any headaches, hematemesis, melena, hematochezia, night sweats, or weight loss. CURRENT MEDICATIONS: Includes amiodarone, Eliquis, Lipitor, Rocephin, Colace, ferrous sulfate, Neurontin, hydralazine. PHYSICAL EXAMINATION: VITAL SIGNS: Blood pressure 120/60, heart rate 60, respirations , afebrile. GENERAL: Reveals a 69-year-old female. HEENT: Unremarkable. CHEST: Clear breath sounds bilaterally. ABDOMEN: Soft. EXTREMITIES: There is no edema. LABORATORY DATA: Lab testing shows white count 4.4, otherwise normal CBC. Creatinine is 6.8, glucose 180. Coags show normal PT, INR. Urinalysis shows a few rbc's. IMAGING STUDIES: CT chest was obtained, which shows atelectasis, otherwise no active pathology. Pacemaker is noted. She has gallstones. IMPRESSION: 1. ESRD on dialysis. 2. Atelectasis bilaterally. 3. Diabetes mellitus. DISCUSSION: Admit to the hospital. Predominant care by Nephrology, currently she is saturating well on room air and a CT chest, which shows atelectasis. We will follow as needed. Suraj Roe M.D. DR: MAURI JOB#: [id number] CC:
[2020-02-28 16:00] VITALS: BP 133/62
[2020-02-28] MEDS: Docusate 100mg cap ORAL SCH (17:50)
[2020-02-28 20:00] VITALS: BP 107/52
--- NOTE | 2020-02-28 21:51 | Cardiology Progress Note ---
Assessment/Plan Assessment/Plan The patient is seen and examined, full consult note is dictated. Objective Last 24 Hour Vital Signs Date Time Temp Pulse Resp B/P (MAP) Pulse Ox O2 Delivery O2 Flow Rate FiO2 02/28/20 20:00 96.9 90 20 107/52 (70) 95 02/28/20 16:00 97.7 59 20 133/62 (85) 95 02/28/20 16:00 60 02/28/20 14:14 125/64 02/28/20 12:00 97.6 60 20 125/64 (84) 95 02/28/20 12:00 60 02/28/20 09:00 125/59 02/28/20 09:00 Room Air 02/28/20 08:59 125/59 02/28/20 08:00 60 02/28/20 08:00 97.7 59 20 125/59 (81) 95 02/28/20 04:00 60 02/28/20 04:00 97.9 69 20 105/60 (75) 98 02/28/20 00:00 60 02/28/20 00:00 97.7 59 22 130/67 (88) 94 Laboratory Tests Test 02/28/20 07:30 White Blood Count 4.4 K/UL (4.8-10.8) L Red Blood Count 4.78 M/UL (4.20-5.40) Hemoglobin 14.1 G/DL (12.0-16.0) Hematocrit 45.2 % (37.0-47.0) Mean Corpuscular Volume 95 FL (80-99) Mean Corpuscular Hemoglobin 29.5 PG (27.0-31.0) Mean Corpuscular Hemoglobin Concent 31.2 G/DL (32.0-36.0) L Red Cell Distribution Width 16.0 % (11.6-14.8) H Platelet Count 122 K/UL (150-450) L Mean Platelet Volume 7.3 FL (6.5-10.1) Neutrophils (%) (Auto) 52.2 % (45.0-75.0) Lymphocytes (%) (Auto) 27.7 % (20.0-45.0) Monocytes (%) (Auto) 13.1 % (1.0-10.0) H Eosinophils (%) (Auto) 5.7 % (0.0-3.0) H Basophils (%) (Auto) 1.2 % (0.0-2.0) Sodium Level 143 MMOL/L (136-145) Potassium Level 4.0 MMOL/L (3.5-5.1) Chloride Level 103 MMOL/L (98-107) Carbon Dioxide Level 28 MMOL/L (21-32) Anion Gap 12 mmol/L (5-15) Blood Urea Nitrogen 32 mg/dL (7-18) H Creatinine 6.8 MG/DL (0.55-1.30) H Estimat Glomerular Filtration Rate 7.3 mL/min (>60) Glucose Level 180 MG/DL (74-106) H Calcium Level 9.6 MG/DL (8.5-10.1) Hepatitis B Surface Antigen Pending Microbiology Date/Time Source Procedure Growth Status 02/27/20 13:39 Urine,Clean Catch Urine Culture - Preliminary Gram Negative Adam Resulted Triston Joy MD February 28, 2020 21:51
[2020-02-29] VITALS: BP 106/59
[2020-02-29 04:00] VITALS: BP 107/50
--- NOTE | 2020-02-29 04:15 | Consultation ---
DATE OF CONSULTATION: 02/28/2020 CARDIOLOGY CONSULTATION CONSULTING PHYSICIAN: Triston Joy MD. REFERRING PHYSICIAN: Danie Banegas MD. REASON FOR CONSULTATION: Management of shortness of breath. HISTORY OF PRESENT ILLNESS: The patient is a very unfortunate 69-year-old female with a past medical history significant for type 2 diabetes mellitus, hypertension, end-stage renal disease, history of paroxysmal atrial tachycardia due to hypertensive heart disease who is a resident of a [facility] facility and comes up with symptoms of cough, wheezing, and shortness of breath. The patient was tested for COVID-19 on 02/03/2020, which was negative; however, the patient continues to have the above symptoms. At the time of arrival to the hospital, blood pressure was 108/64 mmHg and heart rate of 89. Initial 12-lead electrocardiogram was significant for sinus rhythm with no acute ischemic changes. Chest x-ray showed no acute cardiopulmonary disease. The patient was admitted to telemetry for further evaluation and management. Cardiology consultation was made at request of Dr. Banegas to address shortness of breath from the cardiac point of view. PAST MEDICAL HISTORY: 1. Hypertension. 2. Hypertensive heart disease with enlargement of atria. 3. History of COPD. 4. History of diabetes mellitus. 5. End-stage renal disease, status post right chest dialysis catheter and 3 days dialysis. 6. History of CVA. 7. History of paroxysmal atrial tachycardia. ALLERGIES: Penicillin. PAST SURGICAL HISTORY: Right PermCath insertion. SOCIAL HISTORY: Denies any tobacco, alcohol, or illicit drug use. Daughter, who is involved in the care of this patient, who is a resident of [facility] facility until recently, currently retired at home with her daughter. MEDICATIONS: List of medications includes acetaminophen 650 q.4h. p.r.n. pain, albuterol inhaler, Pro-Stat liquid 30 mL twice daily, amiodarone 400 mg twice daily, aspirin 81 mg p.o. daily, atorvastatin 10 mg at bedtime, bisacodyl 10 mg rectal every day, vitamin D 400 units daily, artificial tears 1 drop both eyes, Colace 100 mg twice daily, ferrous sulfate 325 mg daily, gabapentin 100 mg q.12h., hydralazine 25 mg q.4h. p.r.n. systolic blood pressure 160, hydrocodone 5/325 1 tablet q.4h. p.r.n. pain, lisinopril 10 mg p.o. daily, Fleet Enema 133 mL rectal daily p.r.n. constipation, Renvela 800 mg 3 times a day, vitamin B complex 1 capsule p.o. daily, and Nephro-Gildardo 1 tablet daily. REVIEW OF SYSTEMS: HEENT: Denies any headache, diplopia, or blurred vision. CONSTITUTIONAL: Denies any fever, chills, night sweats, or weight loss. CARDIOVASCULAR: Positive for shortness of breath. No chest pain, PND, orthopnea, or leg swelling. PULMONARY: Positive for shortness of breath and cough. No wheezing, but no hemoptysis. GASTROINTESTINAL: Denies any nausea, vomiting, diarrhea, constipation, abdominal pain, or GI bleed. GENITOURINARY: Positive for urinary frequency and urgency and dysuria as well as a green vaginal discharge. NEUROLOGY: Denies any motor dysfunction, sensory deficit, or altered speech. Denies any loss of taste or smell. FAMILY HISTORY: No premature coronary artery disease in the first-degree relatives. PHYSICAL EXAMINATION: VITAL SIGNS: Blood pressure was 108/64, pulse of 89, respirations 19, temperature 97.9 degrees Fahrenheit, and O2 saturation 99% on room air. GENERAL: The patient is a very unfortunate 69-year-old female, in no apparent respiratory distress. Alert and oriented x4. HEENT: Atraumatic and normocephalic. Anicteric. Pupils are equal, round, and reactive to light and accommodation. Extraocular muscles intact. NECK: JVP less than 5 cm. No carotid bruit. Carotid upstroke is 2+ bilaterally. CVS: Normal S1, S2. Regular rate and rhythm. No murmurs, gallops, or rubs. PMI is at fourth intercostal space at midclavicular line. LUNGS: Clear to auscultation bilaterally. ABDOMEN: Soft, nontender, and nondistended. No hepatosplenomegaly. Positive bowel sounds. EXTREMITIES: No evidence of edema, clubbing, or cyanosis. LABORATORY FINDINGS: WBC was 5.5, hemoglobin 12.2, hematocrit of 38.8, and platelet count of 136. Chemistry showed sodium 145, potassium 4.0, chloride 103, bicarbonate 33, BUN 22, creatinine 6.0, glucose is 131, and calcium is 8.9. Troponin I 0.002. INR is 1.0. The CT of chest showed mild dependent atelectasis at lung base. No acute cardiopulmonary disease and presence of gallstones. ASSESSMENT AND PLAN: The patient is a very unfortunate 69-year-old female, seen in Cardiology consultation. 1. History of paroxysmal atrial tachycardia. The patient on high dose of amiodarone 400 mg twice daily. I would like to change that to 200 mg daily for maintenance of sinus rhythm. In the previous admission at this facility, I did not see atrial fibrillation. There is no clear rhythm history in the past 2 years, however. 2. Dyspnea. This could be secondary to volume overload status in association with end-stage renal disease. We will obtain chest x-ray in a.m. Of note, chest x-ray at the time of arrival to the ED did not show any acute cardiopulmonary disease. We will also obtain 2D echocardiography for assessment of LV systolic and diastolic function. 3. History of CVA. The patient requires to be on a combination of aspirin and statin. 4. End-stage renal disease. 5. History of diabetes mellitus. 6. History of COPD. 7. History of hypertension. Her blood pressure is currently well controlled with hydralazine and lisinopril. I would like to thank, Dr. Banegas, for the courtesy of this consultation. Triston Joy M.D. DR: PAULO JOB#: [id number] CC:
[2020-02-29 05:25] LABS: BASOPHILS % (AUTO) 1.2 % (0.0-2.0); EOSINOPHILS % (AUTO) 2.5 % (0.0-3.0); HEMATOCRIT 41.1 % (37.0-47.0); HEMOGLOBIN 13.2 G/DL (12.0-16.0); LYMPHOCYTES % (AUTO) 29.8 % (20.0-45.0); MEAN CORPUSCULAR VOLUME 94 FL (80-99); MONOCYTES % (AUTO) 10.1 % (1.0-10.0); NEUTROPHILS % (AUTO) 56.5 % (45.0-75.0); PLATELET COUNT 121 K/UL (150-450); RED BLOOD COUNT 4.38 M/UL (4.20-5.40); RED CELL DISTRIBUTION WIDTH 15.9 % (11.6-14.8); WHITE BLOOD COUNT 5.9 K/UL (4.8-10.8)
[2020-02-29] MEDS: HydrALAZINE 25mg tab ORAL SCH (06:00)
[2020-02-29 06:28] LABS: % IRON SATURATION 17 % (15-50); IRON 40 ug/dL (50-175); TOTAL IRON BINDING CAPACITY 234 ug/dL (250-450)
[2020-02-29] MEDS: NovoLOG Insulin Flexpen SUBQ SCH ×4 (06:30→21:21)
[2020-02-29 06:54] LABS: ALBUMIN 3.2 G/DL (3.4-5.0); ALBUMIN/GLOBULIN RATIO 0.9 (1.0-2.7); ALKALINE PHOSPHATASE 67 U/L (46-116); ANION GAP 12 mmol/L (5-15); ASPARTATE AMINO TRANSFERASE 17 U/L (15-37); BILIRUBIN,TOTAL 0.4 MG/DL (0.2-1.0); BLOOD UREA NITROGEN 18 mg/dL (7-18); CARBON DIOXIDE 29 MMOL/L (21-32); CHLORIDE 97 MMOL/L (98-107); CHOLESTEROL 199 MG/DL (< 200); FERRITIN 1045 NG/ML (8-388); GAMMA GLUTAMYL TRANSPEPTIDASE 24 U/L (5-85); HDL CHOLESTEROL 82 MG/DL (40-60); PHOSPHORUS 2.5 MG/DL (2.5-4.9); POTASSIUM 4.1 MMOL/L (3.5-5.1); SODIUM 138 MMOL/L (136-145); TRIGLYCERIDES 57 MG/DL (30-150)
[2020-02-29 07:34] LABS: ALANINE AMINOTRANSFERASE 22 U/L (12-78); CALCIUM 8.8 MG/DL (8.5-10.1); CREATININE 4.8 MG/DL (0.55-1.30)
[2020-02-29 08:00] VITALS: BP 101/78
[2020-02-29] MEDS ORDERED: Lisinopril 10mg tab ORAL SCH (09:00)
[2020-02-29] MEDS: cefTRIAXone 1 GM in D5W 55 ML IVPB SCH (09:44)
[2020-02-29] MEDS: Eliquis 2.5mg tablet ORAL SCH ×2 (09:44→18:39)
[2020-02-29] MEDS: Docusate 100mg cap ORAL SCH ×3 (09:45→18:39)
[2020-02-29] MEDS: Amiodarone 200mg tab ORAL SCH (09:45)
[2020-02-29] MEDS: Vitamin D 400 INTLU TAB ORAL SCH (09:45)
--- NOTE | 2020-02-29 10:30 | Pulmonology Progress Note ---
Subjective Interval Events: None new Constitutional: Reports: no symptoms HEENT: Repors: no symptoms Respiratory: Reports: no symptoms Cardiovascular: Reports: no symptoms Gastrointestinal/Abdominal: Reports: no symptoms Genitourinary: Reports: no symptoms Allergies: Coded Allergies: PENICILLINS (Verified Allergy, Unknown, 11/10/09) Objective Last 24 Hour Vital Signs Date Time Temp Pulse Resp B/P (MAP) Pulse Ox O2 Delivery O2 Flow Rate FiO2 02/29/20 09:00 101/78 02/29/20 08:00 97.5 60 20 101/78 (86) 96 02/29/20 06:00 107/50 02/29/20 04:00 96.8 60 20 107/50 (69) 96 02/29/20 04:00 60 02/29/20 00:00 60 02/29/20 00:00 98.8 60 20 106/59 (75) 92 02/28/20 21:00 Room Air 02/28/20 20:00 60 02/28/20 20:00 96.9 90 20 107/52 (70) 95 02/28/20 16:00 97.7 59 20 133/62 (85) 95 02/28/20 16:00 60 02/28/20 14:14 125/64 02/28/20 12:00 97.6 60 20 125/64 (84) 95 02/28/20 12:00 60 Intake and Output 02/28/20 02/29/20 19:00 07:00 Intake Total 400 ml 118 ml Output Total 2000 ml Balance 400 ml -1882 ml Intake Oral 400 ml Other 118 ml Output Hemodialysis UF 2000 ml # Bowel Movements 1 1 General Appearance: no acute distress HEENT: normocephalic Respiratory: chest wall non-tender, lungs clear Cardiovascular: normal peripheral pulses Abdomen: normal bowel sounds Microbiology Date/Time Source Procedure Growth Status 02/27/20 20:35 Blood Blood Culture - Preliminary NO GROWTH AFTER 24 HOURS Resulted 02/27/20 20:35 Blood Blood Culture - Preliminary NO GROWTH AFTER 24 HOURS Resulted 02/27/20 17:42 Nasal Nares MRSA Culture - Final NO METHICILLIN RESISTANT STAPH AUREUS... Complete 02/27/20 13:39 Urine,Clean Catch Urine Culture - Final Escherichia Coli Complete Laboratory Tests 02/29/20 04:40: White Blood Count 5.9, Red Blood Count 4.38, Hemoglobin 13.2, Hematocrit 41.1, Mean Corpuscular Volume 94, Mean Corpuscular Hemoglobin 30.1, Mean Corpuscular Hemoglobin Concent 32.1, Red Cell Distribution Width 15.9H, Platelet Count 121L , Mean Platelet Volume 7.4, Neutrophils (%) (Auto) 56.5, Lymphocytes (%) (Auto) 29.8, Monocytes (%) (Auto) 10.1H, Eosinophils (%) (Auto) 2.5, Basophils (%) ( Auto) 1.2, Sodium Level 138, Potassium Level 4.1, Chloride Level 97L, Carbon Dioxide Level 29, Anion Gap 12, Blood Urea Nitrogen 18, Creatinine 4.8H, Estimat Glomerular Filtration Rate 10.9, Glucose Level 95, Hemoglobin A1c 5.6, Uric Acid 3.3, Calcium Level 8.8, Phosphorus Level 2.5, Magnesium Level 2.2, Iron Level 40L, Total Iron Binding Capacity 234L, Percent Iron Saturation 17, Unsaturated Iron Binding 194, Ferritin 1045H, Total Bilirubin 0.4, Gamma Glutamyl Transpeptidase 24, Aspartate Amino Transf (AST/SGOT) 17, Alanine Aminotransferase (ALT/SGPT) 22, Alkaline Phosphatase 67, Troponin I 0.003, C- Reactive Protein, Quantitative < 0.4, Pro-B-Type Natriuretic Peptide 3289H, Total Protein 6.7, Albumin 3.2L, Globulin 3.5, Albumin/Globulin Ratio 0.9L, Triglycerides Level 57, Cholesterol Level 199, LDL Cholesterol 85, HDL Cholesterol 82H, Cholesterol/HDL Ratio 2.4L, Vitamin B12 Level 906, Folate 9.4, Thyroid Stimulating Hormone (TSH) 0.957 Current Medications Medications (Trade) Dose Ordered Sig/Jesus Route PRN Reason Start Time Stop Time Status Last Admin Dose Admin Acetaminophen (Tylenol) 650 mg Q6H PRN ORAL Mild Pain (Pain Scale 1-3) 02/27/20 21:30 03/28/20 21:29 Acetaminophen/ Hydrocodone Bitart ([place] 5/325) 1 tab Q6H PRN ORAL For Pain 02/27/20 21:45 03/05/20 21:44 Albuterol/ Ipratropium (Combivent Respimat) 1 puff Q6H PRN INH Shortness of Breath 02/28/20 00:00 03/29/20 00:00 Amiodarone HCl (Cordarone) 200 mg DAILY ORAL 02/29/20 09:00 05/28/20 08:59 02/29/20 09:45 Apixaban (Eliquis) 2.5 mg BID ORAL 02/28/20 09:00 05/28/20 08:59 02/29/20 09:44 Atorvastatin Calcium (Lipitor) 10 mg BEDTIME ORAL 02/28/20 21:00 05/28/20 20:59 02/28/20 21:21 Ceftriaxone Sodium 1 gm/ Dextrose 55 ml @ 110 mls/hr Q24H IVPB 02/28/20 09:00 03/06/20 08:59 02/29/20 09:44 Dextrose (Dextrose 50%) 25 ml Q30M PRN IV Hypoglycemia 02/27/20 21:30 05/27/20 21:29 Dextrose (Dextrose 50%) 50 ml Q30M PRN IV Hypoglycemia 02/27/20 21:30 05/27/20 21:29 Docusate Sodium (Colace) 100 mg TID ORAL 02/28/20 18:00 03/29/20 08:59 02/29/20 09:45 Gabapentin (Neurontin) 100 mg Q12HR ORAL 02/28/20 09:00 03/29/20 08:59 02/29/20 09:45 Hydralazine HCl (Apresoline) 25 mg EVERY 8 HOURS ORAL 02/28/20 22:00 05/28/20 08:59 Hydralazine HCl (Apresoline) 25 mg Q4H PRN ORAL For High Blood Pressure 02/27/20 21:45 05/27/20 21:44 Insulin Aspart (NovoLOG) BEFORE MEALS AND HS SUBQ 02/28/20 06:30 05/28/20 06:29 Lisinopril (ZestriL) 10 mg DAILY ORAL 02/29/20 09:00 03/29/20 08:59 Lorazepam (Ativan 2mg/ml 1ml) 0.5 mg Q4H PRN IV For Anxiety 02/27/20 21:30 03/05/20 21:29 Ondansetron HCl (Zofran) 4 mg Q6H PRN IVP Nausea & Vomiting 02/27/20 21:30 03/28/20 21:29 Pantoprazole (Protonix) 40 mg EVERY 12 HOURS ORAL 02/28/20 09:00 03/29/20 08:59 02/29/20 09:45 Sevelamer Carbonate (Renvela) 800 mg THREE TIMES A DAY ORAL 02/28/20 09:00 05/28/20 08:59 02/29/20 09:45 Vitamin D (Vitamin D) 400 intlu DAILY ORAL 02/28/20 09:00 03/29/20 08:59 02/29/20 09:45 Zolpidem Tartrate (Ambien) 5 mg HSPRN PRN ORAL Insomnia 02/27/20 21:30 03/05/20 21:29 Assessment/Plan Assessment/Plan IMPRESSION: 1. ESRD on dialysis. 2. Atelectasis bilaterally. 3. Diabetes mellitus. DISCUSSION: Predominant care by Nephrology, Currently she is saturating well on room air CT chest shows atelectasis. I will follow as needed. Suraj Roe M.D. Suraj Roe MD February 29, 2020 10:30
--- NOTE | 2020-02-29 10:55 | Diagnostic Imaging Report ---
EXAM: XR Chest, 1 View CLINICAL HISTORY: COUGH TECHNIQUE: Frontal view of the chest. COMPARISON: No relevant prior studies available. FINDINGS: Lungs: Minimal subsegmental atelectasis in the medial lung bases. The lungs are otherwise clear. Pleural space: Unremarkable. The costophrenic angles are sharp. No visible pneumothorax. Heart: Unremarkable. No cardiomegaly. Mediastinum: Unremarkable. Bones/joints: Unremarkable. Vasculature: Atherosclerotic calcifications are noted within the aortic arch. Tubes, lines and devices: Right IJ-approach Dual-lumen dialysis catheter with the tip in the region of the right atrium. Cardiac pacer in the left chest wall with the lead tips in the right atrium and right ventricle regions. Telemetry leads overlie the thorax. IMPRESSION: Minimal subsegmental atelectasis in the medial lung bases.
[2020-02-29 12:00] VITALS: BP 99/42
--- NOTE | 2020-02-29 12:58 | Nephrology Progress Note ---
Assessment/Plan Problem List: (1) ESRD (end stage renal disease) (2) Anemia in chronic kidney disease (CKD) (3) Hypertensive kidney disease (4) Diabetic nephropathy (5) Pacemaker Assessment End-stage renal disease on hemodialysis Acute respiratory syndrome Urinary tract infection Diabetes mellitus, diabetic nephropathy History of CVA with left weakness History of anemia of chronic kidney disease history of bradycardia History of atrial fibrillation Hypertension Dementia Plan Due for dialysis today Antibiotic and pulmonary toilet per pulmonary and ID Blood pressure and blood sugar in check Chest x-ray Per orders Subjective ROS Limited/Unobtainable: No Constitutional: Reports: malaise Objective Objective Last 24 Hour Vital Signs Date Time Temp Pulse Resp B/P (MAP) Pulse Ox O2 Delivery O2 Flow Rate FiO2 02/29/20 12:00 60 02/29/20 09:00 101/78 02/29/20 08:00 97.5 60 20 101/78 (86) 96 02/29/20 08:00 60 02/29/20 06:00 107/50 02/29/20 04:00 96.8 60 20 107/50 (69) 96 02/29/20 04:00 60 02/29/20 00:00 60 02/29/20 00:00 98.8 60 20 106/59 (75) 92 02/28/20 21:00 Room Air 02/28/20 20:00 60 02/28/20 20:00 96.9 90 20 107/52 (70) 95 02/28/20 16:00 97.7 59 20 133/62 (85) 95 02/28/20 16:00 60 02/28/20 14:14 125/64 Intake and Output 02/28/20 02/29/20 19:00 07:00 Intake Total 400 ml 118 ml Output Total 2000 ml Balance 400 ml -1882 ml Intake Oral 400 ml Other 118 ml Output Hemodialysis UF 2000 ml # Bowel Movements 1 1 Laboratory Tests 02/29/20 04:40: White Blood Count 5.9, Red Blood Count 4.38, Hemoglobin 13.2, Hematocrit 41.1, Mean Corpuscular Volume 94, Mean Corpuscular Hemoglobin 30.1, Mean Corpuscular Hemoglobin Concent 32.1, Red Cell Distribution Width 15.9H, Platelet Count 121L , Mean Platelet Volume 7.4, Neutrophils (%) (Auto) 56.5, Lymphocytes (%) (Auto) 29.8, Monocytes (%) (Auto) 10.1H, Eosinophils (%) (Auto) 2.5, Basophils (%) ( Auto) 1.2, Sodium Level 138, Potassium Level 4.1, Chloride Level 97L, Carbon Dioxide Level 29, Anion Gap 12, Blood Urea Nitrogen 18, Creatinine 4.8H, Estimat Glomerular Filtration Rate 10.9, Glucose Level 95, Hemoglobin A1c 5.6, Uric Acid 3.3, Calcium Level 8.8, Phosphorus Level 2.5, Magnesium Level 2.2, Iron Level 40L, Total Iron Binding Capacity 234L, Percent Iron Saturation 17, Unsaturated Iron Binding 194, Ferritin 1045H, Total Bilirubin 0.4, Gamma Glutamyl Transpeptidase 24, Aspartate Amino Transf (AST/SGOT) 17, Alanine Aminotransferase (ALT/SGPT) 22, Alkaline Phosphatase 67, Troponin I 0.003, C- Reactive Protein, Quantitative < 0.4, Pro-B-Type Natriuretic Peptide 3289H, Total Protein 6.7, Albumin 3.2L, Globulin 3.5, Albumin/Globulin Ratio 0.9L, Triglycerides Level 57, Cholesterol Level 199, LDL Cholesterol 85, HDL Cholesterol 82H, Cholesterol/HDL Ratio 2.4L, Vitamin B12 Level 906, Folate 9.4, Thyroid Stimulating Hormone (TSH) 0.957 Height (Feet): 5 Height (Inches): 6.00 Weight (Pounds): 251 General Appearance: no apparent distress Cardiovascular: normal rate Respiratory/Chest: decreased breath sounds Abdomen: soft Manas Stephenson MD February 29, 2020 12:58
[2020-02-29] MEDS: HydrALAZINE 10mg Tab ORAL SCH ×2 (14:00→22:00)
[2020-02-29 16:00] VITALS: BP 101/49
--- NOTE | 2020-02-29 18:21 | Cardiology Progress Note ---
Assessment/Plan Assessment/Plan 1. History of paroxysmal atrial tachycardia. Now atrial paced rhythm, continue amiodarone 200mg daily. 2. Dyspnea, likely chronic diastolic CHF, Chest x-ray shows no e/o significant pulmonary edema. 3. History of CVA, continue aspirin and statin. 4. End-stage renal disease. 5. History of diabetes mellitus. 6. History of COPD. 7. History of hypertension, continue hydralazine and lisinopril. Subjective Subjective Atrial paced rhythm at rate of 60. Objective Last 24 Hour Vital Signs Date Time Temp Pulse Resp B/P (MAP) Pulse Ox O2 Delivery O2 Flow Rate FiO2 02/29/20 16:00 97.6 80 20 101/49 (66) 94 02/29/20 14:00 99/42 02/29/20 12:00 60 02/29/20 12:00 97.6 59 20 99/42 (61) 94 02/29/20 09:00 Room Air 02/29/20 09:00 101/78 02/29/20 08:00 97.5 60 20 101/78 (86) 96 02/29/20 08:00 60 02/29/20 06:00 107/50 02/29/20 04:00 96.8 60 20 107/50 (69) 96 02/29/20 04:00 60 02/29/20 00:00 60 02/29/20 00:00 98.8 60 20 106/59 (75) 92 02/28/20 21:00 Room Air 02/28/20 20:00 60 02/28/20 20:00 96.9 90 20 107/52 (70) 95 Intake and Output 02/28/20 02/29/20 19:00 07:00 Intake Total 400 ml 118 ml Output Total 2000 ml Balance 400 ml -1882 ml Intake Oral 400 ml Other 118 ml Output Hemodialysis UF 2000 ml # Bowel Movements 1 1 Laboratory Tests Test 02/29/20 04:40 White Blood Count 5.9 K/UL (4.8-10.8) Red Blood Count 4.38 M/UL (4.20-5.40) Hemoglobin 13.2 G/DL (12.0-16.0) Hematocrit 41.1 % (37.0-47.0) Mean Corpuscular Volume 94 FL (80-99) Mean Corpuscular Hemoglobin 30.1 PG (27.0-31.0) Mean Corpuscular Hemoglobin Concent 32.1 G/DL (32.0-36.0) Red Cell Distribution Width 15.9 % (11.6-14.8) H Platelet Count 121 K/UL (150-450) L Mean Platelet Volume 7.4 FL (6.5-10.1) Neutrophils (%) (Auto) 56.5 % (45.0-75.0) Lymphocytes (%) (Auto) 29.8 % (20.0-45.0) Monocytes (%) (Auto) 10.1 % (1.0-10.0) H Eosinophils (%) (Auto) 2.5 % (0.0-3.0) Basophils (%) (Auto) 1.2 % (0.0-2.0) Sodium Level 138 MMOL/L (136-145) Potassium Level 4.1 MMOL/L (3.5-5.1) Chloride Level 97 MMOL/L (98-107) L Carbon Dioxide Level 29 MMOL/L (21-32) Anion Gap 12 mmol/L (5-15) Blood Urea Nitrogen 18 mg/dL (7-18) Creatinine 4.8 MG/DL (0.55-1.30) H Estimat Glomerular Filtration Rate 10.9 mL/min (>60) Glucose Level 95 MG/DL (74-106) Hemoglobin A1c 5.6 % (4.3-6.0) Uric Acid 3.3 MG/DL (2.6-7.2) Calcium Level 8.8 MG/DL (8.5-10.1) Phosphorus Level 2.5 MG/DL (2.5-4.9) Magnesium Level 2.2 MG/DL (1.8-2.4) Iron Level 40 ug/dL (50-175) L Total Iron Binding Capacity 234 ug/dL (250-450) L Percent Iron Saturation 17 % (15-50) Unsaturated Iron Binding 194 ug/dL (112-346) Ferritin 1045 NG/ML (8-388) H Total Bilirubin 0.4 MG/DL (0.2-1.0) Gamma Glutamyl Transpeptidase 24 U/L (5-85) Aspartate Amino Transf (AST/SGOT) 17 U/L (15-37) Alanine Aminotransferase (ALT/SGPT) 22 U/L (12-78) Alkaline Phosphatase 67 U/L (46-116) Troponin I 0.003 ng/mL (0.000-0.056) C-Reactive Protein, Quantitative < 0.4 mg/dL (0.00-0.90) Pro-B-Type Natriuretic Peptide 3289 pg/mL (0-125) H Total Protein 6.7 G/DL (6.4-8.2) Albumin 3.2 G/DL (3.4-5.0) L Globulin 3.5 g/dL Albumin/Globulin Ratio 0.9 (1.0-2.7) L Triglycerides Level 57 MG/DL (30-150) Cholesterol Level 199 MG/DL (< 200) LDL Cholesterol 85 mg/dL (<100) HDL Cholesterol 82 MG/DL (40-60) H Cholesterol/HDL Ratio 2.4 (3.3-4.4) L Vitamin B12 Level 906 PG/ML (193-986) Folate 9.4 NG/ML (8.6-58.9) Thyroid Stimulating Hormone (TSH) 0.957 uiU/mL (0.358-3.740) Microbiology Date/Time Source Procedure Growth Status 02/27/20 20:35 Blood Blood Culture - Preliminary NO GROWTH AFTER 24 HOURS Resulted 02/27/20 20:35 Blood Blood Culture - Preliminary NO GROWTH AFTER 24 HOURS Resulted 02/27/20 17:42 Nasal Nares MRSA Culture - Final NO METHICILLIN RESISTANT STAPH AUREUS... Complete 02/27/20 13:39 Urine,Clean Catch Urine Culture - Final Escherichia Coli Complete Objective HEENT: Atraumatic and normocephalic. Anicteric. Pupils are equal, round, and reactive to light and accommodation. Extraocular muscles intact. NECK: JVP less than 5 cm. No carotid bruit. Carotid upstroke is 2+ bilaterally. CVS: Normal S1, S2. Regular rate and rhythm. No murmurs, gallops, or rubs. PMI is at fourth intercostal space at midclavicular line. LUNGS: Clear to auscultation bilaterally. ABDOMEN: Soft, nontender, and nondistended. No hepatosplenomegaly. Positive bowel sounds. EXTREMITIES: No evidence of edema, clubbing, or cyanosis. Triston oJy MD February 29, 2020 18:21
[2020-02-29 20:00] VITALS: BP 114/63
--- NOTE | 2020-02-29 21:00 | Consultation ---
DATE OF CONSULTATION: 02/29/2020 INFECTIOUS DISEASE CONSULTATION CONSULTING PHYSICIAN: Kvng Ayala MD. This consultation is for coverage of Fide Herr MD. REFERRING PHYSICIAN: Danie Banegas MD. REASON FOR CONSULTATION: UTI, rule out COVID-19. HISTORY OF PRESENT ILLNESS: This is a 69-year-old female admitted on from home, complaining of dry cough and mild shortness of breath. She had also dysuria. She had previously a test for COVID that was negative. PAST MEDICAL HISTORY: Significant for hypertension since 1978, diabetes mellitus, end-stage renal disease, pacemaker in 2018, history of CVA in 2018, COPD, obesity. The patient is wheelchair-bound. ALLERGIES: Allergic to penicillin. MEDICATIONS: Amiodarone, lisinopril, atorvastatin, apixaban, ceftriaxone, gabapentin, Renvela, insulin, albuterol/ipratropium inhaler, [place], hydralazine, lorazepam, and Zofran. SOCIAL HISTORY: No history of alcohol, drug abuse, or smoking. Single. Lives with daughter at home. REVIEW OF SYSTEMS: No fever. No chills. Dry cough and dysuria. No nausea. No vomiting. She has good appetite. No diarrhea. Makes a little bit of urine. PHYSICAL EXAMINATION: VITAL SIGNS: Temperature is 97.5, pulse 60, blood pressure 101/78. GENERAL APPEARANCE: No acute distress. Morbidly obese. HEAD AND NECK: [place] conjunctivae. HEART: Normal rate. CHEST: She has a pacemaker in the left side of the chest. LUNGS: Clear. ABDOMEN: Soft, nontender. EXTREMITIES: No edema. NEUROLOGIC: She is awake, alert, oriented x3. LABORATORY AND DIAGNOSTIC DATA: WBC 5.9, hemoglobin 13.2, hematocrit 41.1, platelet is 121,000. Sodium 138, potassium 4.1, chloride 97, bicarb 29, BUN 18, creatinine 4.8, glucose 95. UA showed wbc too numerous to count, leukocyte esterase 3+. Urine culture grew E. coli. Blood culture x2, negative. MRSA screening test is negative. CT scan of the chest, mild dependent atelectasis, gallstone. Repeat chest x-ray still shows mild atelectasis. IMPRESSION: E. coli UTI, end-stage renal disease on hemodialysis, diabetes mellitus, hypertension, atelectasis, morbid obesity, COPD, and history of CVA. RECOMMENDATION: Continue ceftriaxone for short-term. We will follow up clinically. At the end of my exam, I thank Dr. Banegas for involving me in the care of this patient. Kvng Ayala M.D. DR: Thierry JOB#: [id number] CC: KAY
--- NOTE | 2020-02-29 22:33 | General Progress Note ---
Assessment/Plan Assessment/Plan: S: I want mignon O: Mild sob and No CP. persistent dry cough PHYSICAL EXAMINATION: HEAD AND NECK: Atraumatic and normocephalic. CHEST: Clear to auscultation. HEART: S1, S2. Regular rate and rhythm. Bradycardic. MUSCULOSKELETAL: No gross lateralized motor deficit, paraparesis. NEUROLOGIC: The patient is awake and alert x1-2. LABORATORY AND DIAGNOSTIC DATA: Labs dated 02/29/20 reviewed ASSESSMENT: 1. SIRS 2. URTI- possibility of COVID merits exclusion workup 3. End-stage renal disease, on temporary PermCath hemodialysis access. 2. Paroxysmal atrial fibrillation, rate is stable. 3. Diabetes type 2. 4. Hypertension. 5. Hyperlipidemia. 6. CVA-history. 7. Dementia. 8. Gastrointestinal and deep vein thrombosis prophylaxes. PLAN OF CARE: C/w Empiricall abx. Isolation . Notes from Nephrology, pulmonary and ID are reviewed. primary Vascular Sx, Dr Fam is consulted . Pending result for COVID Subjective Allergies: Coded Allergies: PENICILLINS (Verified Allergy, Unknown, 11/10/09) Objective Last 24 Hour Vital Signs Date Time Temp Pulse Resp B/P (MAP) Pulse Ox O2 Delivery O2 Flow Rate FiO2 02/29/20 22:00 114/63 02/29/20 16:00 60 02/29/20 16:00 97.6 80 20 101/49 (66) 94 02/29/20 14:00 99/42 02/29/20 12:00 97.6 59 20 99/42 (61) 94 02/29/20 12:00 60 02/29/20 09:00 Room Air 02/29/20 09:00 101/78 02/29/20 08:00 60 02/29/20 08:00 97.5 60 20 101/78 (86) 96 02/29/20 06:00 107/50 02/29/20 04:00 96.8 60 20 107/50 (69) 96 02/29/20 04:00 60 02/29/20 00:00 60 02/29/20 00:00 98.8 60 20 106/59 (75) 92 Intake and Output 02/28/20 02/29/20 19:00 07:00 Intake Total 400 ml 118 ml Output Total 2000 ml Balance 400 ml -1882 ml Intake Oral 400 ml Other 118 ml Output Hemodialysis UF 2000 ml # Bowel Movements 1 1 Laboratory Tests 02/29/20 04:40: White Blood Count 5.9, Red Blood Count 4.38, Hemoglobin 13.2, Hematocrit 41.1, Mean Corpuscular Volume 94, Mean Corpuscular Hemoglobin 30.1, Mean Corpuscular Hemoglobin Concent 32.1, Red Cell Distribution Width 15.9H, Platelet Count 121L , Mean Platelet Volume 7.4, Neutrophils (%) (Auto) 56.5, Lymphocytes (%) (Auto) 29.8, Monocytes (%) (Auto) 10.1H, Eosinophils (%) (Auto) 2.5, Basophils (%) ( Auto) 1.2, Sodium Level 138, Potassium Level 4.1, Chloride Level 97L, Carbon Dioxide Level 29, Anion Gap 12, Blood Urea Nitrogen 18, Creatinine 4.8H, Estimat Glomerular Filtration Rate 10.9, Glucose Level 95, Hemoglobin A1c 5.6, Uric Acid 3.3, Calcium Level 8.8, Phosphorus Level 2.5, Magnesium Level 2.2, Iron Level 40L, Total Iron Binding Capacity 234L, Percent Iron Saturation 17, Unsaturated Iron Binding 194, Ferritin 1045H, Total Bilirubin 0.4, Gamma Glutamyl Transpeptidase 24, Aspartate Amino Transf (AST/SGOT) 17, Alanine Aminotransferase (ALT/SGPT) 22, Alkaline Phosphatase 67, Troponin I 0.003, C- Reactive Protein, Quantitative < 0.4, Pro-B-Type Natriuretic Peptide 3289H, Total Protein 6.7, Albumin 3.2L, Globulin 3.5, Albumin/Globulin Ratio 0.9L, Triglycerides Level 57, Cholesterol Level 199, LDL Cholesterol 85, HDL Cholesterol 82H, Cholesterol/HDL Ratio 2.4L, Vitamin B12 Level 906, Folate 9.4, Thyroid Stimulating Hormone (TSH) 0.957 Height (Feet): 5 Height (Inches): 6.00 Weight (Pounds): 251 Danie Banegas MD February 29, 2020 22:33
[2020-03-01] VITALS: BP 109/58
[2020-03-01 04:00] VITALS: BP 99/49
[2020-03-01] MEDS: HydrALAZINE 10mg Tab ORAL SCH ×3 (05:14→21:48)
[2020-03-01] MEDS: NovoLOG Insulin Flexpen SUBQ SCH ×4 (06:30→21:00)
[2020-03-01 08:00] VITALS: BP 103/74
[2020-03-01] MEDS: cefTRIAXone 1 GM in D5W 55 ML IVPB SCH (08:47)
[2020-03-01] MEDS: Vitamin D 400 INTLU TAB ORAL SCH (08:48)
[2020-03-01] MEDS: Docusate 100mg cap ORAL SCH ×3 (08:48→17:50)
[2020-03-01] MEDS: Eliquis 2.5mg tablet ORAL SCH ×2 (08:48→17:50)
[2020-03-01] MEDS: Amiodarone 200mg tab ORAL SCH (08:48)
[2020-03-01] MEDS ORDERED: Lisinopril 2.5mg tab ORAL SCH (09:00)
[2020-03-01 09:08] LABS: HEMATOCRIT 37.8 % (37.0-47.0); HEMOGLOBIN 12.1 G/DL (12.0-16.0); MEAN CORPUSCULAR VOLUME 94 FL (80-99); PLATELET COUNT 106 K/UL (150-450); RED BLOOD COUNT 4.03 M/UL (4.20-5.40); RED CELL DISTRIBUTION WIDTH 15.6 % (11.6-14.8); WHITE BLOOD COUNT 5.1 K/UL (4.8-10.8)
[2020-03-01 09:33] LABS: ALANINE AMINOTRANSFERASE 18 U/L (12-78); ALBUMIN 2.8 G/DL (3.4-5.0); ALBUMIN/GLOBULIN RATIO 0.8 (1.0-2.7); ALKALINE PHOSPHATASE 60 U/L (46-116); ANION GAP 8 mmol/L (5-15); ASPARTATE AMINO TRANSFERASE 21 U/L (15-37); BILIRUBIN,TOTAL 0.4 MG/DL (0.2-1.0); BLOOD UREA NITROGEN 20 mg/dL (7-18); CALCIUM 8.7 MG/DL (8.5-10.1); CARBON DIOXIDE 31 MMOL/L (21-32); CHLORIDE 101 MMOL/L (98-107); CREATININE 5.2 MG/DL (0.55-1.30); PHOSPHORUS 3.1 MG/DL (2.5-4.9); POTASSIUM 3.8 MMOL/L (3.5-5.1); SODIUM 140 MMOL/L (136-145)
--- NOTE | 2020-03-01 10:22 | Pulmonology Progress Note ---
Subjective ROS Limited/Unobtainable: No Interval Events: None new Constitutional: Reports: no symptoms HEENT: Repors: no symptoms Respiratory: Reports: no symptoms Cardiovascular: Reports: no symptoms Gastrointestinal/Abdominal: Reports: no symptoms Genitourinary: Reports: no symptoms Allergies: Coded Allergies: PENICILLINS (Verified Allergy, Unknown, 11/10/09) Objective Last 24 Hour Vital Signs Date Time Temp Pulse Resp B/P (MAP) Pulse Ox O2 Delivery O2 Flow Rate FiO2 03/01/20 08:00 96.7 60 20 103/74 (84) 98 03/01/20 05:14 99/49 03/01/20 04:00 60 03/01/20 04:00 98.8 65 18 99/49 (66) 94 03/01/20 00:00 60 03/01/20 00:00 99.1 63 16 109/58 (75) 94 02/29/20 22:00 114/63 02/29/20 21:00 Room Air 02/29/20 20:00 99.7 60 18 114/63 (80) 94 02/29/20 16:00 60 02/29/20 16:00 97.6 80 20 101/49 (66) 94 02/29/20 14:00 99/42 02/29/20 12:00 97.6 59 20 99/42 (61) 94 02/29/20 12:00 60 Intake and Output 02/29/20 03/01/20 19:00 07:00 Intake Total 455 ml 103 ml Output Total 2000 ml Balance -1545 ml 103 ml Intake Oral 400 ml IV Total 55 ml Other 103 ml Output Hemodialysis UF 2000 ml General Appearance: no acute distress HEENT: normocephalic Respiratory: chest wall non-tender, lungs clear Cardiovascular: normal peripheral pulses Abdomen: normal bowel sounds Microbiology Date/Time Source Procedure Growth Status 02/27/20 20:35 Blood Blood Culture - Preliminary NO GROWTH AFTER 48 HOURS Resulted 02/27/20 20:35 Blood Blood Culture - Preliminary NO GROWTH AFTER 48 HOURS Resulted 02/27/20 17:42 Nasal Nares MRSA Culture - Final NO METHICILLIN RESISTANT STAPH AUREUS... Complete 02/27/20 13:58 Nasopharynx Coronavirus COVID-19 PCR ([facility]) - Final Complete 02/27/20 13:39 Urine,Clean Catch Urine Culture - Final Escherichia Coli Complete Laboratory Tests 03/01/20 08:50: White Blood Count 5.1, Red Blood Count 4.03L, Hemoglobin 12.1, Hematocrit 37.8, Mean Corpuscular Volume 94, Mean Corpuscular Hemoglobin 30.0, Mean Corpuscular Hemoglobin Concent 32.0, Red Cell Distribution Width 15.6H, Platelet Count 106L , Mean Platelet Volume 7.6, Neutrophils (%) (Auto) , Lymphocytes (%) (Auto) , Monocytes (%) (Auto) , Eosinophils (%) (Auto) , Basophils (%) (Auto) , Differential Total Cells Counted 100, Neutrophils % (Manual) 56, Lymphocytes % ( Manual) 30, Monocytes % (Manual) 11H, Eosinophils % (Manual) 3, Basophils % ( Manual) 0, Band Neutrophils 0, Platelet Estimate DecreasedL, Platelet Morphology Normal, Anisocytosis 1+, Sodium Level 140, Potassium Level 3.8, Chloride Level 101, Carbon Dioxide Level 31, Anion Gap 8, Blood Urea Nitrogen 20H, Creatinine 5.2H, Estimat Glomerular Filtration Rate 9.9, Glucose Level 116H , Calcium Level 8.7, Phosphorus Level 3.1, Magnesium Level 2.3, Total Bilirubin 0.4, Aspartate Amino Transf (AST/SGOT) 21, Alanine Aminotransferase (ALT/SGPT) 18, Alkaline Phosphatase 60, C-Reactive Protein, Quantitative 0.5, Total Protein 6.4, Albumin 2.8L, Globulin 3.6, Albumin/Globulin Ratio 0.8L Current Medications Medications (Trade) Dose Ordered Sig/Jesus Route PRN Reason Start Time Stop Time Status Last Admin Dose Admin Acetaminophen (Tylenol) 650 mg Q6H PRN ORAL Mild Pain (Pain Scale 1-3) 02/27/20 21:30 03/28/20 21:29 Acetaminophen/ Hydrocodone Bitart ([place] 5/325) 1 tab Q6H PRN ORAL For Pain 02/27/20 21:45 03/05/20 21:44 Albuterol/ Ipratropium (Combivent Respimat) 1 puff Q6H PRN INH Shortness of Breath 02/28/20 00:00 03/29/20 00:00 Amiodarone HCl (Cordarone) 200 mg DAILY ORAL 02/29/20 09:00 05/28/20 08:59 5/25/20 08:48 Apixaban (Eliquis) 2.5 mg BID ORAL 02/28/20 09:00 05/28/20 08:59 03/01/20 08:48 Atorvastatin Calcium (Lipitor) 10 mg BEDTIME ORAL 02/28/20 21:00 05/28/20 20:59 02/29/20 21:19 Ceftriaxone Sodium 1 gm/ Dextrose 55 ml @ 110 mls/hr Q24H IVPB 02/28/20 09:00 03/06/20 08:59 03/01/20 08:47 Dextrose (Dextrose 50%) 25 ml Q30M PRN IV Hypoglycemia 02/27/20 21:30 05/27/20 21:29 Dextrose (Dextrose 50%) 50 ml Q30M PRN IV Hypoglycemia 02/27/20 21:30 05/27/20 21:29 Docusate Sodium (Colace) 100 mg TID ORAL 02/28/20 18:00 03/29/20 08:59 03/01/20 08:48 Gabapentin (Neurontin) 100 mg Q12HR ORAL 02/28/20 09:00 03/29/20 08:59 03/01/20 08:47 Hydralazine HCl (Apresoline) 10 mg EVERY 8 HOURS ORAL 02/29/20 14:00 05/28/20 08:59 Hydralazine HCl (Apresoline) 25 mg Q4H PRN ORAL For High Blood Pressure 02/27/20 21:45 05/27/20 21:44 Insulin Aspart (NovoLOG) BEFORE MEALS AND HS SUBQ 02/28/20 06:30 05/28/20 06:29 02/29/20 21:21 Lorazepam (Ativan 2mg/ml 1ml) 0.5 mg Q4H PRN IV For Anxiety 02/27/20 21:30 03/05/20 21:29 02/29/20 11:07 Ondansetron HCl (Zofran) 4 mg Q6H PRN IVP Nausea & Vomiting 02/27/20 21:30 03/28/20 21:29 Pantoprazole (Protonix) 40 mg EVERY 12 HOURS ORAL 02/28/20 09:00 03/29/20 08:59 03/01/20 08:48 Sevelamer Carbonate (Renvela) 800 mg THREE TIMES A DAY ORAL 02/28/20 09:00 05/28/20 08:59 03/01/20 08:48 Vitamin D (Vitamin D) 400 intlu DAILY ORAL 02/28/20 09:00 03/29/20 08:59 03/01/20 08:48 Zolpidem Tartrate (Ambien) 5 mg HSPRN PRN ORAL Insomnia 02/27/20 21:30 03/05/20 21:29 Assessment/Plan Assessment/Plan IMPRESSION: 1. ESRD on dialysis. 2. Atelectasis bilaterally. 3. Diabetes mellitus. DISCUSSION: Predominant care by Nephrology, Currently she is saturating well on room air CT chest shows atelectasis. I will follow as needed. Suraj Roe M.D. Suraj Roe MD March 01, 2020 10:22
--- NOTE | 2020-03-01 10:55 | Nephrology Progress Note ---
Assessment/Plan Problem List: (1) ESRD (end stage renal disease) (2) Anemia in chronic kidney disease (CKD) (3) Hypertensive kidney disease (4) Diabetic nephropathy (5) Pacemaker Assessment End-stage renal disease on hemodialysis Acute respiratory syndrome Urinary tract infection Diabetes mellitus, diabetic nephropathy History of CVA with left weakness History of anemia of chronic kidney disease history of bradycardia History of atrial fibrillation Hypertension Dementia Plan Dialyzed yesterday February 28. 2500 mL of ultrafiltrate. Today's labs reviewed. All acceptable. Antibiotic and pulmonary toilet per pulmonary and ID Blood pressure medication reviewed and parameters suggested Keep blood sugar in check Chest x-ray results noted Per orders Subjective ROS Limited/Unobtainable: No Constitutional: Reports: malaise Objective Objective Last 24 Hour Vital Signs Date Time Temp Pulse Resp B/P (MAP) Pulse Ox O2 Delivery O2 Flow Rate FiO2 03/01/20 08:00 96.7 60 20 103/74 (84) 98 03/01/20 08:00 60 03/01/20 05:14 99/49 03/01/20 04:00 60 03/01/20 04:00 98.8 65 18 99/49 (66) 94 03/01/20 00:00 60 03/01/20 00:00 99.1 63 16 109/58 (75) 94 02/29/20 22:00 114/63 02/29/20 21:00 Room Air 02/29/20 20:00 99.7 60 18 114/63 (80) 94 02/29/20 16:00 60 02/29/20 16:00 97.6 80 20 101/49 (66) 94 02/29/20 14:00 99/42 02/29/20 12:00 97.6 59 20 99/42 (61) 94 02/29/20 12:00 60 Intake and Output 02/29/20 03/01/20 19:00 07:00 Intake Total 455 ml 103 ml Output Total 2000 ml Balance -1545 ml 103 ml Intake Oral 400 ml IV Total 55 ml Other 103 ml Output Hemodialysis UF 2000 ml Current Medications Medications (Trade) Dose Ordered Sig/Jesus Route PRN Reason Start Time Stop Time Status Last Admin Dose Admin Acetaminophen (Tylenol) 650 mg Q6H PRN ORAL Mild Pain (Pain Scale 1-3) 02/27/20 21:30 6/21/20 21:29 Acetaminophen/ Hydrocodone Bitart ([place] 5/325) 1 tab Q6H PRN ORAL For Pain 02/27/20 21:45 03/05/20 21:44 Albuterol/ Ipratropium (Combivent Respimat) 1 puff Q6H PRN INH Shortness of Breath 02/28/20 00:00 03/29/20 00:00 Amiodarone HCl (Cordarone) 200 mg DAILY ORAL 02/29/20 09:00 05/28/20 08:59 03/01/20 08:48 Apixaban (Eliquis) 2.5 mg BID ORAL 02/28/20 09:00 05/28/20 08:59 03/01/20 08:48 Atorvastatin Calcium (Lipitor) 10 mg BEDTIME ORAL 02/28/20 21:00 05/28/20 20:59 02/29/20 21:19 Ceftriaxone Sodium 1 gm/ Dextrose 55 ml @ 110 mls/hr Q24H IVPB 02/28/20 09:00 03/06/20 08:59 03/01/20 08:47 Dextrose (Dextrose 50%) 25 ml Q30M PRN IV Hypoglycemia 02/27/20 21:30 05/27/20 21:29 Dextrose (Dextrose 50%) 50 ml Q30M PRN IV Hypoglycemia 02/27/20 21:30 05/27/20 21:29 Docusate Sodium (Colace) 100 mg TID ORAL 02/28/20 18:00 03/29/20 08:59 03/01/20 08:48 Gabapentin (Neurontin) 100 mg Q12HR ORAL 02/28/20 09:00 03/29/20 08:59 03/01/20 08:47 Hydralazine HCl (Apresoline) 10 mg EVERY 8 HOURS ORAL 02/29/20 14:00 05/28/20 08:59 Hydralazine HCl (Apresoline) 25 mg Q4H PRN ORAL For High Blood Pressure 02/27/20 21:45 05/27/20 21:44 Insulin Aspart (NovoLOG) BEFORE MEALS AND HS SUBQ 02/28/20 06:30 05/28/20 06:29 02/29/20 21:21 Lorazepam (Ativan 2mg/ml 1ml) 0.5 mg Q4H PRN IV For Anxiety 02/27/20 21:30 03/05/20 21:29 02/29/20 11:07 Ondansetron HCl (Zofran) 4 mg Q6H PRN IVP Nausea & Vomiting 02/27/20 21:30 03/28/20 21:29 Pantoprazole (Protonix) 40 mg EVERY 12 HOURS ORAL 02/28/20 09:00 03/29/20 08:59 03/01/20 08:48 Sevelamer Carbonate (Renvela) 800 mg THREE TIMES A DAY ORAL 02/28/20 09:00 05/28/20 08:59 03/01/20 08:48 Vitamin D (Vitamin D) 400 intlu DAILY ORAL 02/28/20 09:00 03/29/20 08:59 03/01/20 08:48 Zolpidem Tartrate (Ambien) 5 mg HSPRN PRN ORAL Insomnia 02/27/20 21:30 03/05/20 21:29 Laboratory Tests 03/01/20 08:50: White Blood Count 5.1, Red Blood Count 4.03L, Hemoglobin 12.1, Hematocrit 37.8, Mean Corpuscular Volume 94, Mean Corpuscular Hemoglobin 30.0, Mean Corpuscular Hemoglobin Concent 32.0, Red Cell Distribution Width 15.6H, Platelet Count 106L , Mean Platelet Volume 7.6, Neutrophils (%) (Auto) , Lymphocytes (%) (Auto) , Monocytes (%) (Auto) , Eosinophils (%) (Auto) , Basophils (%) (Auto) , Differential Total Cells Counted 100, Neutrophils % (Manual) 56, Lymphocytes % ( Manual) 30, Monocytes % (Manual) 11H, Eosinophils % (Manual) 3, Basophils % ( Manual) 0, Band Neutrophils 0, Platelet Estimate DecreasedL, Platelet Morphology Normal, Anisocytosis 1+, Sodium Level 140, Potassium Level 3.8, Chloride Level 101, Carbon Dioxide Level 31, Anion Gap 8, Blood Urea Nitrogen 20H, Creatinine 5.2H, Estimat Glomerular Filtration Rate 9.9, Glucose Level 116H , Calcium Level 8.7, Phosphorus Level 3.1, Magnesium Level 2.3, Total Bilirubin 0.4, Aspartate Amino Transf (AST/SGOT) 21, Alanine Aminotransferase (ALT/SGPT) 18, Alkaline Phosphatase 60, C-Reactive Protein, Quantitative 0.5, Total Protein 6.4, Albumin 2.8L, Globulin 3.6, Albumin/Globulin Ratio 0.8L Height (Feet): 5 Height (Inches): 6.00 Weight (Pounds): 251 General Appearance: no apparent distress Cardiovascular: normal rate Respiratory/Chest: decreased breath sounds Abdomen: soft, other - Obese Manas Stephenson MD March 01, 2020 10:55
[2020-03-01 12:00] VITALS: BP 107/81
--- NOTE | 2020-03-01 13:06 | Infectious Diseases Prog Note ---
Assessment/Plan Assessment/Plan IMPRESSION: E. coli UTI, End-stage renal disease on hemodialysis, Diabetes mellitus, Hypertension, Atelectasis, Morbid obesity, COPD, History of CVA. COVID19 X 1: negative RECOMMENDATION: Continue ceftriaxone for short-term Subjective ROS Limited/Unobtainable: Yes Constitutional: Denies: fever Allergies: Coded Allergies: PENICILLINS (Verified Allergy, Unknown, 11/10/09) Objective Vital Signs Last 24 Hour Vital Signs Date Time Temp Pulse Resp B/P (MAP) Pulse Ox O2 Delivery O2 Flow Rate FiO2 03/01/20 08:00 96.7 60 20 103/74 (84) 98 03/01/20 08:00 60 03/01/20 05:14 99/49 03/01/20 04:00 60 03/01/20 04:00 98.8 65 18 99/49 (66) 94 03/01/20 00:00 60 03/01/20 00:00 99.1 63 16 109/58 (75) 94 02/29/20 22:00 114/63 02/29/20 21:00 Room Air 02/29/20 20:00 99.7 60 18 114/63 (80) 94 02/29/20 16:00 60 02/29/20 16:00 97.6 80 20 101/49 (66) 94 02/29/20 14:00 99/42 Height (Feet): 5 Height (Inches): 6.00 Weight (Pounds): 251 General Appearance: no acute distress HEENT: mucous membranes moist Respiratory/Chest: no respiratory distress Cardiovascular: normal rate, other - Portacath Abdomen: soft, non tender Extremities: no edema Neurologic/Psychiatric: other - sleeping Microbiology Date/Time Source Procedure Growth Status 02/27/20 20:35 Blood Blood Culture - Preliminary NO GROWTH AFTER 48 HOURS Resulted 02/27/20 20:35 Blood Blood Culture - Preliminary NO GROWTH AFTER 48 HOURS Resulted 02/27/20 17:42 Nasal Nares MRSA Culture - Final NO METHICILLIN RESISTANT STAPH AUREUS... Complete 02/27/20 13:58 Nasopharynx Coronavirus COVID-19 PCR ([facility]) - Final Complete 02/27/20 13:39 Urine,Clean Catch Urine Culture - Final Escherichia Coli Complete Laboratory Tests Test 03/01/20 08:50 White Blood Count 5.1 K/UL (4.8-10.8) Red Blood Count 4.03 M/UL (4.20-5.40) L Hemoglobin 12.1 G/DL (12.0-16.0) Hematocrit 37.8 % (37.0-47.0) Mean Corpuscular Volume 94 FL (80-99) Mean Corpuscular Hemoglobin 30.0 PG (27.0-31.0) Mean Corpuscular Hemoglobin Concent 32.0 G/DL (32.0-36.0) Red Cell Distribution Width 15.6 % (11.6-14.8) H Platelet Count 106 K/UL (150-450) L Mean Platelet Volume 7.6 FL (6.5-10.1) Neutrophils (%) (Auto) % (45.0-75.0) Lymphocytes (%) (Auto) % (20.0-45.0) Monocytes (%) (Auto) % (1.0-10.0) Eosinophils (%) (Auto) % (0.0-3.0) Basophils (%) (Auto) % (0.0-2.0) Differential Total Cells Counted 100 Neutrophils % (Manual) 56 % (45-75) Lymphocytes % (Manual) 30 % (20-45) Monocytes % (Manual) 11 % (1-10) H Eosinophils % (Manual) 3 % (0-3) Basophils % (Manual) 0 % (0-2) Band Neutrophils 0 % (0-8) Platelet Estimate Decreased L Platelet Morphology Normal Anisocytosis 1+ Sodium Level 140 MMOL/L (136-145) Potassium Level 3.8 MMOL/L (3.5-5.1) Chloride Level 101 MMOL/L (98-107) Carbon Dioxide Level 31 MMOL/L (21-32) Anion Gap 8 mmol/L (5-15) Blood Urea Nitrogen 20 mg/dL (7-18) H Creatinine 5.2 MG/DL (0.55-1.30) H Estimat Glomerular Filtration Rate 9.9 mL/min (>60) Glucose Level 116 MG/DL (74-106) H Calcium Level 8.7 MG/DL (8.5-10.1) Phosphorus Level 3.1 MG/DL (2.5-4.9) Magnesium Level 2.3 MG/DL (1.8-2.4) Total Bilirubin 0.4 MG/DL (0.2-1.0) Aspartate Amino Transf (AST/SGOT) 21 U/L (15-37) Alanine Aminotransferase (ALT/SGPT) 18 U/L (12-78) Alkaline Phosphatase 60 U/L (46-116) C-Reactive Protein, Quantitative 0.5 mg/dL (0.00-0.90) Total Protein 6.4 G/DL (6.4-8.2) Albumin 2.8 G/DL (3.4-5.0) L Globulin 3.6 g/dL Albumin/Globulin Ratio 0.8 (1.0-2.7) L Current Medications Medications (Trade) Dose Ordered Sig/Jesus Route PRN Reason Start Time Stop Time Status Last Admin Dose Admin Acetaminophen (Tylenol) 650 mg Q6H PRN ORAL Mild Pain (Pain Scale 1-3) 02/27/20 21:30 03/28/20 21:29 Acetaminophen/ Hydrocodone Bitart ([place] 5/325) 1 tab Q6H PRN ORAL For Pain 02/27/20 21:45 03/05/20 21:44 Albuterol/ Ipratropium (Combivent Respimat) 1 puff Q6H PRN INH Shortness of Breath 02/28/20 00:00 03/29/20 00:00 Amiodarone HCl (Cordarone) 200 mg DAILY ORAL 02/29/20 09:00 05/28/20 08:59 03/01/20 08:48 Apixaban (Eliquis) 2.5 mg BID ORAL 02/28/20 09:00 05/28/20 08:59 03/01/20 08:48 Atorvastatin Calcium (Lipitor) 10 mg BEDTIME ORAL 02/28/20 21:00 05/28/20 20:59 02/29/20 21:19 Ceftriaxone Sodium 1 gm/ Dextrose 55 ml @ 110 mls/hr Q24H IVPB 02/28/20 09:00 03/06/20 08:59 03/01/20 08:47 Dextrose (Dextrose 50%) 25 ml Q30M PRN IV Hypoglycemia 02/27/20 21:30 05/27/20 21:29 Dextrose (Dextrose 50%) 50 ml Q30M PRN IV Hypoglycemia 02/27/20 21:30 05/27/20 21:29 Docusate Sodium (Colace) 100 mg TID ORAL 02/28/20 18:00 03/29/20 08:59 03/01/20 08:48 Gabapentin (Neurontin) 100 mg Q12HR ORAL 02/28/20 09:00 03/29/20 08:59 03/01/20 08:47 Hydralazine HCl (Apresoline) 10 mg EVERY 8 HOURS ORAL 02/29/20 14:00 05/28/20 08:59 Hydralazine HCl (Apresoline) 25 mg Q4H PRN ORAL For High Blood Pressure 02/27/20 21:45 05/27/20 21:44 Insulin Aspart (NovoLOG) BEFORE MEALS AND HS SUBQ 02/28/20 06:30 05/28/20 06:29 03/01/20 12:16 Lorazepam (Ativan 2mg/ml 1ml) 0.5 mg Q4H PRN IV For Anxiety 02/27/20 21:30 03/05/20 21:29 02/29/20 11:07 Ondansetron HCl (Zofran) 4 mg Q6H PRN IVP Nausea & Vomiting 02/27/20 21:30 03/28/20 21:29 Pantoprazole (Protonix) 40 mg EVERY 12 HOURS ORAL 02/28/20 09:00 03/29/20 08:59 03/01/20 08:48 Sevelamer Carbonate (Renvela) 800 mg THREE TIMES A DAY ORAL 02/28/20 09:00 05/28/20 08:59 03/01/20 08:48 Vitamin D (Vitamin D) 1,000 intlu DAILY ORAL 03/02/20 09:00 03/29/20 08:59 Zolpidem Tartrate (Ambien) 5 mg HSPRN PRN ORAL Insomnia 02/27/20 21:30 03/05/20 21:29 Kvng Aylaa MD March 01, 2020 13:06
[2020-03-01 16:00] VITALS: BP 109/78
[2020-03-01 20:00] VITALS: BP 123/54
--- NOTE | 2020-03-01 21:00 | Cardiology Progress Note ---
Assessment/Plan Assessment/Plan 1. History of paroxysmal atrial tachycardia, ? PAF, s/p dual chamber pacemaker implant, currently atrial paced rhythm, continue amiodarone 200mg daily. 2. Dyspnea, likely chronic diastolic CHF, Chest x-ray shows no e/o significant pulmonary edema. 3. History of CVA, continue aspirin and statin. 4. End-stage renal disease. 5. History of diabetes mellitus. 6. History of COPD. 7. History of hypertension, continue hydralazine and lisinopril. Subjective Subjective Atrial paced rhythm at rate of 60. Objective Last 24 Hour Vital Signs Date Time Temp Pulse Resp B/P (MAP) Pulse Ox O2 Delivery O2 Flow Rate FiO2 03/01/20 16:00 98.6 67 19 109/78 (88) 96 03/01/20 16:00 60 03/01/20 13:56 107/81 03/01/20 12:00 60 03/01/20 12:00 97.6 89 18 107/81 (90) 97 03/01/20 09:00 Room Air 03/01/20 08:00 96.7 60 20 103/74 (84) 98 03/01/20 08:00 60 03/01/20 05:14 99/49 03/01/20 04:00 60 03/01/20 04:00 98.8 65 18 99/49 (66) 94 03/01/20 00:00 60 03/01/20 00:00 99.1 63 16 109/58 (75) 94 02/29/20 22:00 114/63 02/29/20 21:00 Room Air Intake and Output 02/29/20 03/01/20 19:00 07:00 Intake Total 455 ml 103 ml Output Total 2000 ml Balance -1545 ml 103 ml Intake Oral 400 ml IV Total 55 ml Other 103 ml Hemodialysis UF 2000 ml Laboratory Tests Test 03/01/20 08:50 White Blood Count 5.1 K/UL (4.8-10.8) Red Blood Count 4.03 M/UL (4.20-5.40) L Hemoglobin 12.1 G/DL (12.0-16.0) Hematocrit 37.8 % (37.0-47.0) Mean Corpuscular Volume 94 FL (80-99) Mean Corpuscular Hemoglobin 30.0 PG (27.0-31.0) Mean Corpuscular Hemoglobin Concent 32.0 G/DL (32.0-36.0) Red Cell Distribution Width 15.6 % (11.6-14.8) H Platelet Count 106 K/UL (150-450) L Mean Platelet Volume 7.6 FL (6.5-10.1) Neutrophils (%) (Auto) % (45.0-75.0) Lymphocytes (%) (Auto) % (20.0-45.0) Monocytes (%) (Auto) % (1.0-10.0) Eosinophils (%) (Auto) % (0.0-3.0) Basophils (%) (Auto) % (0.0-2.0) Differential Total Cells Counted 100 Neutrophils % (Manual) 56 % (45-75) Lymphocytes % (Manual) 30 % (20-45) Monocytes % (Manual) 11 % (1-10) H Eosinophils % (Manual) 3 % (0-3) Basophils % (Manual) 0 % (0-2) Band Neutrophils 0 % (0-8) Platelet Estimate Decreased L Platelet Morphology Normal Anisocytosis 1+ Sodium Level 140 MMOL/L (136-145) Potassium Level 3.8 MMOL/L (3.5-5.1) Chloride Level 101 MMOL/L (98-107) Carbon Dioxide Level 31 MMOL/L (21-32) Anion Gap 8 mmol/L (5-15) Blood Urea Nitrogen 20 mg/dL (7-18) H Creatinine 5.2 MG/DL (0.55-1.30) H Estimat Glomerular Filtration Rate 9.9 mL/min (>60) Glucose Level 116 MG/DL (74-106) H Calcium Level 8.7 MG/DL (8.5-10.1) Phosphorus Level 3.1 MG/DL (2.5-4.9) Magnesium Level 2.3 MG/DL (1.8-2.4) Total Bilirubin 0.4 MG/DL (0.2-1.0) Aspartate Amino Transf (AST/SGOT) 21 U/L (15-37) Alanine Aminotransferase (ALT/SGPT) 18 U/L (12-78) Alkaline Phosphatase 60 U/L (46-116) C-Reactive Protein, Quantitative 0.5 mg/dL (0.00-0.90) Total Protein 6.4 G/DL (6.4-8.2) Albumin 2.8 G/DL (3.4-5.0) L Globulin 3.6 g/dL Albumin/Globulin Ratio 0.8 (1.0-2.7) L Objective HEENT: Atraumatic and normocephalic. Anicteric. Pupils are equal, round, and reactive to light and accommodation. Extraocular muscles intact. NECK: JVP less than 5 cm. No carotid bruit. Carotid upstroke is 2+ bilaterally. CVS: Normal S1, S2. Regular rate and rhythm. No murmurs, gallops, or rubs. PMI is at fourth intercostal space at midclavicular line. Pacemaker generator in the left axillary area. LUNGS: Clear to auscultation bilaterally. ABDOMEN: Soft, nontender, and nondistended. No hepatosplenomegaly. Positive bowel sounds. EXTREMITIES: No evidence of edema, clubbing, or cyanosis. Triston Joy MD March 01, 2020 21:00
--- NOTE | 2020-03-01 21:55 | General Progress Note ---
Assessment/Plan Assessment/Plan: S: I am ok O: Mild sob and No CP. persistent dry cough PHYSICAL EXAMINATION: HEAD AND NECK: Atraumatic and normocephalic. CHEST: Clear to auscultation. HEART: S1, S2. Regular rate and rhythm. Bradycardic. MUSCULOSKELETAL: No gross lateralized motor deficit, paraparesis. NEUROLOGIC: The patient is awake and alert x1-2. LABORATORY AND DIAGNOSTIC DATA: Labs dated 03/01/20 reviewed ASSESSMENT: 1. SIRS 2. URTI- possibility of COVID merits exclusion workup 3. End-stage renal disease, on temporary PermCath hemodialysis access. 2. Paroxysmal atrial fibrillation, rate is stable. 3. Diabetes type 2. 4. Hypertension. 5. Hyperlipidemia. 6. CVA-history. 7. Dementia. 8. Gastrointestinal and deep vein thrombosis prophylaxes. PLAN OF CARE: C/w Empiricall abx. Off Isolation . Notes from Nephrology, pulmonary and ID are reviewed. primary Vascular Sx, Dr Fam is consulted . Subjective Allergies: Coded Allergies: PENICILLINS (Verified Allergy, Unknown, 11/10/09) Objective Last 24 Hour Vital Signs Date Time Temp Pulse Resp B/P (MAP) Pulse Ox O2 Delivery O2 Flow Rate FiO2 03/01/20 16:00 98.6 67 19 109/78 (88) 96 03/01/20 16:00 60 03/01/20 13:56 107/81 03/01/20 12:00 60 03/01/20 12:00 97.6 89 18 107/81 (90) 97 03/01/20 09:00 Room Air 03/01/20 08:00 96.7 60 20 103/74 (84) 98 03/01/20 08:00 60 03/01/20 05:14 99/49 03/01/20 04:00 60 03/01/20 04:00 98.8 65 18 99/49 (66) 94 03/01/20 00:00 60 03/01/20 00:00 99.1 63 16 109/58 (75) 94 02/29/20 22:00 114/63 Intake and Output 02/29/20 03/01/20 19:00 07:00 Intake Total 455 ml 103 ml Output Total 2000 ml Balance -1545 ml 103 ml Intake Oral 400 ml IV Total 55 ml Other 103 ml Hemodialysis UF 2000 ml Laboratory Tests 03/01/20 08:50: White Blood Count 5.1, Red Blood Count 4.03L, Hemoglobin 12.1, Hematocrit 37.8, Mean Corpuscular Volume 94, Mean Corpuscular Hemoglobin 30.0, Mean Corpuscular Hemoglobin Concent 32.0, Red Cell Distribution Width 15.6H, Platelet Count 106L , Mean Platelet Volume 7.6, Neutrophils (%) (Auto) , Lymphocytes (%) (Auto) , Monocytes (%) (Auto) , Eosinophils (%) (Auto) , Basophils (%) (Auto) , Differential Total Cells Counted 100, Neutrophils % (Manual) 56, Lymphocytes % ( Manual) 30, Monocytes % (Manual) 11H, Eosinophils % (Manual) 3, Basophils % ( Manual) 0, Band Neutrophils 0, Platelet Estimate DecreasedL, Platelet Morphology Normal, Anisocytosis 1+, Sodium Level 140, Potassium Level 3.8, Chloride Level 101, Carbon Dioxide Level 31, Anion Gap 8, Blood Urea Nitrogen 20H, Creatinine 5.2H, Estimat Glomerular Filtration Rate 9.9, Glucose Level 116H , Calcium Level 8.7, Phosphorus Level 3.1, Magnesium Level 2.3, Total Bilirubin 0.4, Aspartate Amino Transf (AST/SGOT) 21, Alanine Aminotransferase (ALT/SGPT) 18, Alkaline Phosphatase 60, C-Reactive Protein, Quantitative 0.5, Total Protein 6.4, Albumin 2.8L, Globulin 3.6, Albumin/Globulin Ratio 0.8L Height (Feet): 5 Height (Inches): 6.00 Weight (Pounds): 251 Danie Banegas MD March 01, 2020 21:55
[2020-03-02] VITALS: BP 109/58
[2020-03-02 04:00] VITALS: BP 103/56
[2020-03-02] MEDS: HydrALAZINE 10mg Tab ORAL SCH ×2 (06:00→13:25)
[2020-03-02] MEDS: NovoLOG Insulin Flexpen SUBQ SCH ×3 (06:28→16:38)
[2020-03-02 08:00] VITALS: BP 111/48
[2020-03-02] MEDS ORDERED: Vitamin D 1000 IU Tab ORAL SCH (09:00)
[2020-03-02] MEDS: Amiodarone 200mg tab ORAL SCH (09:11)
[2020-03-02] MEDS: Eliquis 2.5mg tablet ORAL SCH ×2 (09:12→17:12)
[2020-03-02] MEDS: cefTRIAXone 1 GM in D5W 55 ML IVPB SCH (09:13)
[2020-03-02] MEDS: Docusate 100mg cap ORAL SCH ×3 (09:15→17:12)
--- NOTE | 2020-03-02 10:41 | Infectious Diseases Prog Note ---
Assessment/Plan Assessment/Plan IMPRESSION: E. coli UTI, End-stage renal disease on hemodialysis, Diabetes mellitus, Hypertension, Atelectasis, Morbid obesity, COPD, History of CVA. COVID19 X 1: negative RECOMMENDATION: Continue ceftriaxone for one day Subjective ROS Limited/Unobtainable: No Constitutional: Reports: no symptoms, other - wants to go home Respiratory: Reports: no symptoms Cardiovascular: Reports: no symptoms Gastrointestinal/Abdominal: Reports: no symptoms Genitourinary: Reports: no symptoms Allergies: Coded Allergies: PENICILLINS (Verified Allergy, Unknown, 11/10/09) Objective Vital Signs Last 24 Hour Vital Signs Date Time Temp Pulse Resp B/P (MAP) Pulse Ox O2 Delivery O2 Flow Rate FiO2 03/02/20 09:00 Room Air 03/02/20 08:00 60 03/02/20 08:00 97.7 60 18 111/48 (69) 96 03/02/20 06:00 103/56 03/02/20 04:00 98.2 65 16 103/56 (72) 94 03/02/20 04:00 60 03/02/20 00:00 97.8 59 17 109/58 (75) 95 03/02/20 00:00 60 03/01/20 21:48 123/58 03/01/20 21:02 Room Air 03/01/20 20:00 60 03/01/20 20:00 97.5 62 19 123/54 (77) 94 03/01/20 16:00 98.6 67 19 109/78 (88) 96 03/01/20 16:00 60 03/01/20 13:56 107/81 03/01/20 12:00 60 03/01/20 12:00 97.6 89 18 107/81 (90) 97 Height (Feet): 5 Height (Inches): 6.00 Weight (Pounds): 251 General Appearance: no acute distress HEENT: mucous membranes moist Respiratory/Chest: lungs clear Cardiovascular: normal rate Abdomen: soft, non tender Extremities: no edema Neurologic/Psychiatric: alert, oriented x 3, responsive Current Medications Medications (Trade) Dose Ordered Sig/Jesus Route PRN Reason Start Time Stop Time Status Last Admin Dose Admin Acetaminophen (Tylenol) 650 mg Q6H PRN ORAL Mild Pain (Pain Scale 1-3) 02/27/20 21:30 03/28/20 21:29 Acetaminophen/ Hydrocodone Bitart ([place] 5/325) 1 tab Q6H PRN ORAL For Pain 02/27/20 21:45 03/05/20 21:44 Albuterol/ Ipratropium (Combivent Respimat) 1 puff Q6H PRN INH Shortness of Breath 02/28/20 00:00 03/29/20 00:00 Amiodarone HCl (Cordarone) 200 mg DAILY ORAL 02/29/20 09:00 05/28/20 08:59 03/02/20 09:11 Apixaban (Eliquis) 2.5 mg BID ORAL 02/28/20 09:00 05/28/20 08:59 03/02/20 09:12 Atorvastatin Calcium (Lipitor) 10 mg BEDTIME ORAL 02/28/20 21:00 05/28/20 20:59 03/01/20 21:48 Ceftriaxone Sodium 1 gm/ Dextrose 55 ml @ 110 mls/hr Q24H IVPB 02/28/20 09:00 03/06/20 08:59 03/02/20 09:13 Dextrose (Dextrose 50%) 25 ml Q30M PRN IV Hypoglycemia 02/27/20 21:30 05/27/20 21:29 Dextrose (Dextrose 50%) 50 ml Q30M PRN IV Hypoglycemia 02/27/20 21:30 05/27/20 21:29 Docusate Sodium (Colace) 100 mg TID ORAL 02/28/20 18:00 03/29/20 08:59 03/02/20 09:15 Gabapentin (Neurontin) 100 mg Q12HR ORAL 02/28/20 09:00 03/29/20 08:59 03/02/20 09:11 Hydralazine HCl (Apresoline) 10 mg EVERY 8 HOURS ORAL 02/29/20 14:00 05/28/20 08:59 03/01/20 21:48 Hydralazine HCl (Apresoline) 25 mg Q4H PRN ORAL For High Blood Pressure 02/27/20 21:45 05/27/20 21:44 Insulin Aspart (NovoLOG) BEFORE MEALS AND HS SUBQ 02/28/20 06:30 05/28/20 06:29 03/01/20 17:50 Lorazepam (Ativan 2mg/ml 1ml) 0.5 mg Q4H PRN IV For Anxiety 02/27/20 21:30 03/05/20 21:29 02/29/20 11:07 Ondansetron HCl (Zofran) 4 mg Q6H PRN IVP Nausea & Vomiting 02/27/20 21:30 03/28/20 21:29 Pantoprazole (Protonix) 40 mg EVERY 12 HOURS ORAL 02/28/20 09:00 03/29/20 08:59 03/02/20 09:11 Sevelamer Carbonate (Renvela) 800 mg THREE TIMES A DAY ORAL 02/28/20 09:00 05/28/20 08:59 03/02/20 09:11 Vitamin D (Vitamin D) 1,000 intlu DAILY ORAL 03/02/20 09:00 03/29/20 08:59 03/02/20 09:12 Zolpidem Tartrate (Ambien) 5 mg HSPRN PRN ORAL Insomnia 02/27/20 21:30 03/05/20 21:29 Kvng Ayala MD March 02, 2020 10:41
[2020-03-02] MEDS ORDERED: ELIQUIS2.5 MG ORAL (11:07)
[2020-03-02] MEDS ORDERED: PACERONE200 MG ORAL (11:10)
--- NOTE | 2020-03-02 11:16 | General Progress Note ---
Assessment/Plan Assessment/Plan: S: I am ok O: Mild sob and No CP. persistent dry cough PHYSICAL EXAMINATION: HEAD AND NECK: Atraumatic and normocephalic. CHEST: Clear to auscultation. HEART: S1, S2. Regular rate and rhythm. Bradycardic. MUSCULOSKELETAL: No gross lateralized motor deficit, paraparesis. NEUROLOGIC: The patient is awake and alert x1-2. LABORATORY AND DIAGNOSTIC DATA: Labs dated 03/02/20 reviewed ASSESSMENT: 1. SIRS 2. URTI- possibility of COVID merits exclusion workup 3. End-stage renal disease, on temporary PermCath hemodialysis access. 2. Paroxysmal atrial fibrillation, rate is stable. 3. Diabetes type 2. 4. Hypertension. 5. Hyperlipidemia. 6. CVA-history. 7. Dementia. 8. Gastrointestinal and deep vein thrombosis prophylaxes. PLAN OF CARE: C/w Empiricall abx. Off Isolation . Notes from Nephrology, pulmonary and ID are reviewed. D/w Vas Sx. COVID test in anticipation of outpatient Rt-Arm AVF placement . Subjective Allergies: Coded Allergies: PENICILLINS (Verified Allergy, Unknown, 11/10/09) Objective Last 24 Hour Vital Signs Date Time Temp Pulse Resp B/P (MAP) Pulse Ox O2 Delivery O2 Flow Rate FiO2 03/02/20 09:00 Room Air 03/02/20 08:00 60 03/02/20 08:00 97.7 60 18 111/48 (69) 96 03/02/20 06:00 103/56 03/02/20 04:00 98.2 65 16 103/56 (72) 94 03/02/20 04:00 60 03/02/20 00:00 97.8 59 17 109/58 (75) 95 03/02/20 00:00 60 03/01/20 21:48 123/58 03/01/20 21:02 Room Air 03/01/20 20:00 60 03/01/20 20:00 97.5 62 19 123/54 (77) 94 03/01/20 16:00 98.6 67 19 109/78 (88) 96 03/01/20 16:00 60 03/01/20 13:56 107/81 03/01/20 12:00 60 03/01/20 12:00 97.6 89 18 107/81 (90) 97 Intake and Output 03/01/20 03/02/20 19:00 07:00 Intake Total 55 ml 140 ml Output Total 1200 ml Balance 55 ml -1060 ml Intake Oral 140 ml IV Total 55 ml Output Urine Total 1200 ml # Voids 3 Height (Feet): 5 Height (Inches): 6.00 Weight (Pounds): 251 Danie Banegas MD March 02, 2020 11:16
[2020-03-02 12:00] VITALS: BP 110/53
--- NOTE | 2020-03-02 13:13 | Nephrology Progress Note ---
Assessment/Plan Problem List: (1) ESRD (end stage renal disease) (2) Anemia in chronic kidney disease (CKD) (3) Hypertensive kidney disease (4) Diabetic nephropathy (5) Pacemaker Assessment End-stage renal disease on hemodialysis Acute respiratory syndrome Urinary tract infection Diabetes mellitus, diabetic nephropathy History of CVA with left weakness History of anemia of chronic kidney disease history of bradycardia History of atrial fibrillation Hypertension Dementia Plan Dialyzed February 28. 2500 mL of ultrafiltrate. Next dialysis March 03 No labs done today Antibiotic and pulmonary toilet per pulmonary and ID Blood pressure medication reviewed and parameters suggested Keep blood sugar in check Chest x-ray results noted Per orders Subjective ROS Limited/Unobtainable: No Constitutional: Reports: malaise Objective Objective Last 24 Hour Vital Signs Date Time Temp Pulse Resp B/P (MAP) Pulse Ox O2 Delivery O2 Flow Rate FiO2 03/02/20 12:00 97.7 60 20 110/53 (72) 98 03/02/20 12:00 60 03/02/20 09:00 Room Air 03/02/20 08:00 60 03/02/20 08:00 97.7 60 18 111/48 (69) 96 03/02/20 06:00 103/56 03/02/20 04:00 98.2 65 16 103/56 (72) 94 03/02/20 04:00 60 03/02/20 00:00 97.8 59 17 109/58 (75) 95 03/02/20 00:00 60 03/01/20 21:48 123/58 03/01/20 21:02 Room Air 03/01/20 20:00 60 03/01/20 20:00 97.5 62 19 123/54 (77) 94 03/01/20 16:00 98.6 67 19 109/78 (88) 96 03/01/20 16:00 60 03/01/20 13:56 107/81 Intake and Output 03/01/20 03/02/20 19:00 07:00 Intake Total 55 ml 140 ml Output Total 1200 ml Balance 55 ml -1060 ml Intake Oral 140 ml IV Total 55 ml Output Urine Total 1200 ml # Voids 3 No new labs Height (Feet): 5 Height (Inches): 6.00 Weight (Pounds): 251 General Appearance: no apparent distress Cardiovascular: normal rate Respiratory/Chest: decreased breath sounds Abdomen: soft Objective No change Fouladian,Manas MD March 02, 2020 13:13
--- NOTE | 2020-03-02 15:43 | Pulmonology Progress Note ---
Subjective ROS Limited/Unobtainable: No Interval Events: None new Constitutional: Reports: no symptoms, other - wants to go home HEENT: Repors: no symptoms Respiratory: Reports: no symptoms Cardiovascular: Reports: no symptoms Gastrointestinal/Abdominal: Reports: no symptoms Genitourinary: Reports: no symptoms Allergies: Coded Allergies: PENICILLINS (Verified Allergy, Unknown, 11/10/09) Objective Last 24 Hour Vital Signs Date Time Temp Pulse Resp B/P (MAP) Pulse Ox O2 Delivery O2 Flow Rate FiO2 03/02/20 13:25 110/53 03/02/20 12:00 97.7 60 20 110/53 (72) 98 03/02/20 12:00 60 03/02/20 09:00 Room Air 03/02/20 08:00 60 03/02/20 08:00 97.7 60 18 111/48 (69) 96 03/02/20 06:00 103/56 03/02/20 04:00 98.2 65 16 103/56 (72) 94 03/02/20 04:00 60 03/02/20 00:00 97.8 59 17 109/58 (75) 95 03/02/20 00:00 60 03/01/20 21:48 123/58 03/01/20 21:02 Room Air 03/01/20 20:00 60 03/01/20 20:00 97.5 62 19 123/54 (77) 94 03/01/20 16:00 98.6 67 19 109/78 (88) 96 03/01/20 16:00 60 Intake and Output 03/01/20 03/02/20 19:00 07:00 Intake Total 55 ml 140 ml Output Total 1200 ml Balance 55 ml -1060 ml Intake Oral 140 ml IV Total 55 ml Output Urine Total 1200 ml # Voids 3 General Appearance: no acute distress HEENT: normocephalic Respiratory: chest wall non-tender, lungs clear Cardiovascular: normal peripheral pulses Abdomen: normal bowel sounds Current Medications Medications (Trade) Dose Ordered Sig/Jesus Route PRN Reason Start Time Stop Time Status Last Admin Dose Admin Acetaminophen (Tylenol) 650 mg Q6H PRN ORAL Mild Pain (Pain Scale 1-3) 02/27/20 21:30 03/28/20 21:29 Acetaminophen/ Hydrocodone Bitart ([place] 5/325) 1 tab Q6H PRN ORAL For Pain 02/27/20 21:45 03/05/20 21:44 Albuterol/ Ipratropium (Combivent Respimat) 1 puff Q6H PRN INH Shortness of Breath 02/28/20 00:00 03/29/20 00:00 Amiodarone HCl (Cordarone) 200 mg DAILY ORAL 02/29/20 09:00 05/28/20 08:59 03/02/20 09:11 Apixaban (Eliquis) 2.5 mg BID ORAL 02/28/20 09:00 05/28/20 08:59 03/02/20 09:12 Atorvastatin Calcium (Lipitor) 10 mg BEDTIME ORAL 02/28/20 21:00 05/28/20 20:59 03/01/20 21:48 Ceftriaxone Sodium 1 gm/ Dextrose 55 ml @ 110 mls/hr Q24H IVPB 02/28/20 09:00 03/06/20 08:59 03/02/20 09:13 Dextrose (Dextrose 50%) 25 ml Q30M PRN IV Hypoglycemia 02/27/20 21:30 05/27/20 21:29 Dextrose (Dextrose 50%) 50 ml Q30M PRN IV Hypoglycemia 02/27/20 21:30 05/27/20 21:29 Docusate Sodium (Colace) 100 mg TID ORAL 02/28/20 18:00 03/29/20 08:59 03/02/20 13:24 Gabapentin (Neurontin) 100 mg Q12HR ORAL 02/28/20 09:00 03/29/20 08:59 03/02/20 09:11 Hydralazine HCl (Apresoline) 10 mg EVERY 8 HOURS ORAL 02/29/20 14:00 05/28/20 08:59 03/02/20 13:25 Hydralazine HCl (Apresoline) 25 mg Q4H PRN ORAL For High Blood Pressure 02/27/20 21:45 05/27/20 21:44 Insulin Aspart (NovoLOG) BEFORE MEALS AND HS SUBQ 02/28/20 06:30 05/28/20 06:29 03/02/20 11:21 Lorazepam (Ativan 2mg/ml 1ml) 0.5 mg Q4H PRN IV For Anxiety 02/27/20 21:30 03/05/20 21:29 02/29/20 11:07 Ondansetron HCl (Zofran) 4 mg Q6H PRN IVP Nausea & Vomiting 02/27/20 21:30 03/28/20 21:29 Pantoprazole (Protonix) 40 mg EVERY 12 HOURS ORAL 02/28/20 09:00 03/29/20 08:59 03/02/20 09:11 Sevelamer Carbonate (Renvela) 800 mg THREE TIMES A DAY ORAL 02/28/20 09:00 05/28/20 08:59 03/02/20 13:24 Vitamin D (Vitamin D) 1,000 intlu DAILY ORAL 03/02/20 09:00 03/29/20 08:59 03/02/20 09:12 Zolpidem Tartrate (Ambien) 5 mg HSPRN PRN ORAL Insomnia 02/27/20 21:30 03/05/20 21:29 Assessment/Plan Assessment/Plan IMPRESSION: 1. ESRD on dialysis. 2. Atelectasis bilaterally. 3. Diabetes mellitus. DISCUSSION: Predominant care by Nephrology, Currently she is saturating well on room air CT chest shows atelectasis. I will follow as needed. Suraj Roe M.D. Suraj Roe MD March 02, 2020 15:43
[2020-03-02 16:00] VITALS: BP 117/63
--- NOTE | 2020-03-04 10:23 | Discharge Summary ---
Discharge Summary Discharge Summary _ DATE OF ADMISSION: 02/27/2020 DATE OF DISCHARGE: 03/02/2020 DISCHARGED BY: Dr Banegas REASON FOR ADMISSION: 69 years old female with past medical history of hypertension, status post pacemaker implantation, COPD/asthma, diabetes mellitus, end-stage renal disease , on hemodialysis, history of CVA with left-sided weakness, presented for cough , wheezing and shortness of breath. Patient apparently was tested for COVID-19 in January and was negative . Upon evaluation vital signs were stable. Chest x-ray Laboratory work-up revealed no leukocytosis, stable hemoglobin, hematocrit, no lymphopenia. Lactic acid 1.2 CO2 33. BUN 22, creatinine 6.0, consistent with known history of end-stage renal disease. Glucose 131. Stable LFT. Troponin negative . Patient was swabbed for COVID-19. Urinalysis revealed pyuria , +3 protein. Patient subsequently admitted for further management. CONSULTANTS: lifter/driver Dr. Joy neurologist pulmonary Dr. Roe ID specialist Dr. Kvng Ayala weight training instructor Dr. Stephenson HOSPITAL COURSE: Patient admitted to isolation room. Patient started on empiric antibiotic as per ID specialist recommendation. Hemodialysis provided as per weight training instructor recommendations with close monitoring of volumes and renal parameters. Supplemental oxygen was on board as needed to keep pulse oximetry above 92%. Pulmonary toilet provided. Patient was followed-up with chest x-ray, which revealed minimal subsegmental atelectasis in the medial lung bases. Patient remained afebrile , no leukocytosis SARS-CoV-2 by PCR came back not detected. Blood cultures were negative. Urine culture revealed E. coli. Pptient completed antibiotic while in the hospital. Patient remained afebrile , no leukocytosis . DVT prophylaxis provided Telemetry showed atrial paced rhythm. Patient status post dual-chamber pacemaker implantation. Amiodarone continued. Patient continued with Eliquis and statin. Blood pressure was managed with lisinopril and hydralazine , a GI prophylaxis provided. Blood sugar was closely monitored , remained stable. Hemoglobin A1c 5.6 Hemoglobin and hematocrit were closely monitored with goal to keep hemoglobin above 7. Prior to discharge hemoglobin 12.1 , hematocrit 27.8. Pulse oximetry remained stable on room air. Patient clinically stabilized and was ready for discharge home FINAL DIAGNOSES: Suspected COVID-19 infection- ruled out E. coli UTI COPD Atelectasis Morbid obesity End-stage renal disease , on hemodialysis Hypertensive kidney disease Diabetic nephropathy Pacemaker Paroxysmal atrial fibrillation Diabetes mellitus type 2 History of CVA DISCHARGE MEDICATIONS: See Medication Reconciliation list. DISCHARGE INSTRUCTIONS: Patient was discharged home. Follow-up with a primary care provider in 1 to 2 weeks. I have been assigned to dictate discharge summary for this account. I was not involved in the patient's management. Cary Jarvis NP March 04, 2020 10:23
== END 2020-03-02 18:50 | disposition home or self-care (01) | DRG 689 ==
LOC: EDBD 12:33 → EMR 13:15 → 2E 17:20 → EDBEDREQ 17:43 → 2E 18:48
PROC: 5A1D70Z Performance of Urinary Filtration, Intermittent, Less than 6 Hours Per Day (ICD-10-PCS; principal; 2020-03-02)
DX: N39.0 Urinary tract infection, site not specified (principal); N18.6 End stage renal disease; J98.11 Atelectasis; Z68.41 Body mass index [BMI] 40.0-44.9, adult; I69.354 Hemiplegia and hemiparesis following cerebral infarction affecting left non-dominant side; I12.0 Hypertensive chronic kidney disease with stage 5 chronic kidney disease or end stage renal disease; E11.22 Type 2 diabetes mellitus with diabetic chronic kidney disease; I48.0 Paroxysmal atrial fibrillation; E66.01 Morbid (severe) obesity due to excess calories; E11.21 Type 2 diabetes mellitus with diabetic nephropathy; Z95.0 Presence of cardiac pacemaker; Z99.2 Dependence on renal dialysis; B96.20 Unspecified Escherichia coli [E. coli] as the cause of diseases classified elsewhere; Z79.01 Long term (current) use of anticoagulants; Z88.0 Allergy status to penicillin; R05 Cough; Z20.828 Contact with and (suspected) exposure to other viral communicable diseases; R06.02 Shortness of breath; Z79.4 Long term (current) use of insulin; N76.0 Acute vaginitis; R06.03 Acute respiratory distress
CPT/HCPCS: 36415; 71045; 71250; 80048; 80053; 80061; 81003; 82550; 82553; 82607; 82728; 82746; 82962; 82977; 83036; 83540; 83550; 83605; 83735; 83880; 84100; 84443; 84484; 84550; 85007; 85025; 85610; 85730; 86140; 86706; 87040; 87081; 87086; 87181; 87635; 93005; 99285; J1815

== ENCOUNTER 2020-04-23 12:39 | Inpatient (IN) | payer MEDICARE ==
[~2020-04-23] VITALS: Ht 165.1 cm; Wt 134.3 kg
[~2020-04-23 12:39] MED LIST changes: +PACERONE200 MG ORAL
--- NOTE | 2020-04-23 14:02 | Emergency Room Report ---
History of Present Illness General Chief Complaint: Lower Extremity Injury Present Illness HPI 69-year-old female presents to the emergency department for 10 out of 10 severity pain, tenderness and worsening progression of wound to the left foot times several weeks. Patient is nonambulatory she has a history of diabetes, CVA 10 years ago with left-sided residual deficit, cardiac history, implanted pacemaker, asthma and is on dialysis. Patient reports having a pressure sore on the left toe that took a long time to heal, and that this began in a similar fashion but has gotten much worse. She denies fevers or chills. No other aggravating or relieving factors. She reports history of neuropathy in the affected extremity as well. Allergies: Coded Allergies: PENICILLINS (Verified Allergy, Unknown, 04/23/20) Tolerated Cefepime 04/23/20 COVID-19 Screening Contact w/high risk pt: No Recent Travel to affected area: No Experienced COVID-19 symptoms?: No COVID-19 symptoms experienced: Cough COVID-19 Testing performed SPECIALIST WOUND CARE: No Patient History Past Medical History: see triage record Now: No Immunizations: UTD Reviewed Nursing Documentation: PMH: Agreed; PSxH: Agreed Nursing Documentation-PMH Hx Cardiac Problems: Yes - BRADYCARDIA, FLUID OVERLOAD Hx Hypertension: Yes Hx Pacemaker: Yes - LEFT UPPER CHEST Hx Asthma: Yes Hx COPD: Yes Hx Diabetes: Yes Hx Cancer: No Hx Gastrointestinal Problems: No Hx Dialysis: Yes - ESRD ON HD (MWF) Hx Neurological Problems: Yes Hx Cerebrovascular Accident: Yes - 1974 Hx Weakness: Yes Review of Systems All Other Systems: negative except mentioned in HPI Physical Exam Vital Signs Date Time Temp Pulse Resp B/P (MAP) Pulse Ox O2 Delivery O2 Flow Rate FiO2 04/23/20 12:57 98.8 60 20 144/68 (93) 98 Room Air Sp02 EP Interpretation: reviewed, normal General Appearance: no apparent distress, alert, GCS 15, non-toxic, obese, Chronically Ill Head: normocephalic, atraumatic Eyes: bilateral eye normal inspection, bilateral eye PERRL ENT: hearing grossly normal, normal voice Neck: full range of motion Respiratory: chest non-tender, lungs clear, normal breath sounds, no respiratory distress, no accessory muscle use, no wheezing, speaking full sentences, other - permacath left side Cardiovascular #1: regular rate, rhythm, no edema, other - slow cap refill time of lower extremities bilaterally Cardiovascular #2: 1+ dorsalis pedis (R) - very decreased peripheral pulses, , 1+ dorsalis pedis (L) Gastrointestinal: normal bowel sounds, non tender, soft Musculoskeletal: normal range of motion, non-tender, other - PT. wheel chair bound 2* left sided deficit residual from CVA Neurologic: alert, oriented x3, responsive, speech normal, sensory deficit - Peripheral sensory decreased, no focal defects Psychiatric: judgement/insight normal Skin: Decubitus/Ulcer - 2cm in diameter with a deeper necrotic 0.6cm center. , other - erythema- pressure sore on tailbone. no skin break down Medical Decision Making PA Attestation Dr. Gibbs Is my supervising Physician whom patient management has been discussed with. Diagnostic Impression: Primary Impression: Cellulitis of left foot Additional Impressions: ESRD (end stage renal disease) Diabetic nephropathy Qualified Codes: E13.21 - Other specified diabetes mellitus with diabetic nephropathy ER Course 69-year-old female presents to the emergency department for 10 out of 10 severity pain, tenderness and worsening progression of wound to the left foot times several weeks. Patient is nonambulatory she has a history of diabetes, CVA 10 years ago with left-sided residual deficit, cardiac history, implanted pacemaker, asthma and is on dialysis. Patient reports having a pressure sore on the left toe that took a long time to heal, and that this began in a similar fashion but has gotten much worse. She denies fevers or chills. No other aggravating or relieving factors. She reports history of neuropathy in the affected extremity as well. Ddx considered but are not limited to cellulitis, Necrotizing fasciitis, allergic reaction, burn, pressure sore, osteomyelitis just to name a few Vital signs: are WNL, pt. is afebrile H&PE are most consistent with moderate pressure ulcer with cellulitis in a person with immune compromise and poor circulation. ORDERS: -CBC: WNL -CMP: ESRD Cr 6.5 , electrolytes ok Lactic Acid: WNL -Troponin: WNL Blood Cultures: Pending ED INTERVENTIONS: -----PICC Line inserted -1g Vanco IV -1g Cefipme IV DISPOSITION: at this time pt. will be admitted to Dr. Banegas for Left foot Cellulitis with ESRD Dr. Rezvani agreed to admit the pt. and to continue pt. care management. Labs Test 04/23/20 17:45 04/23/20 18:40 White Blood Count 6.8 K/UL (4.8-10.8) Red Blood Count 3.99 M/UL (4.20-5.40) Hemoglobin 11.7 G/DL (12.0-16.0) Hematocrit 38.1 % (37.0-47.0) Mean Corpuscular Volume 96 FL (80-99) Mean Corpuscular Hemoglobin 29.3 PG (27.0-31.0) Mean Corpuscular Hemoglobin Concent 30.6 G/DL (32.0-36.0) Red Cell Distribution Width 16.9 % (11.6-14.8) Platelet Count 151 K/UL (150-450) Mean Platelet Volume 8.8 FL (6.5-10.1) Neutrophils (%) (Auto) 75.3 % (45.0-75.0) Lymphocytes (%) (Auto) 17.6 % (20.0-45.0) Monocytes (%) (Auto) 4.5 % (1.0-10.0) Eosinophils (%) (Auto) 1.7 % (0.0-3.0) Basophils (%) (Auto) 1.0 % (0.0-2.0) Sodium Level 140 MMOL/L (136-145) Potassium Level 4.2 MMOL/L (3.5-5.1) Chloride Level 101 MMOL/L (98-107) Carbon Dioxide Level 29 MMOL/L (21-32) Anion Gap 11 mmol/L (5-15) Blood Urea Nitrogen 44 mg/dL (7-18) Creatinine 6.2 MG/DL (0.55-1.30) Estimat Glomerular Filtration Rate 8.1 mL/min (>60) Glucose Level 145 MG/DL (74-106) Lactic Acid Level 1.00 mmol/L (0.4-2.0) Calcium Level 8.7 MG/DL (8.5-10.1) Total Bilirubin 0.3 MG/DL (0.2-1.0) Aspartate Amino Transf (AST/SGOT) 20 U/L (15-37) Alanine Aminotransferase (ALT/SGPT) 21 U/L (12-78) Alkaline Phosphatase 65 U/L (46-116) Troponin I 0.005 ng/mL (0.000-0.056) Total Protein 6.6 G/DL (6.4-8.2) Albumin 3.1 G/DL (3.4-5.0) Globulin 3.5 g/dL Albumin/Globulin Ratio 0.9 (1.0-2.7) EKG Diagnostic Results EP Interpretation: Dr. Gibbs Rate: normal - 60bpm Rhythm: NSR Other Impression Prolonged QT interval, him with prolonged AV conduction. Nonspecific T wave abnormalities. ASA given to the pt in ED: No PA Scribe Text This Interpretation was scribed by ZHANE Pan. Chest X-Ray Diagnostic Results Chest X-Ray Diagnostic Results : Chest X-Ray Ordered: Yes # of Views/Limited/Complete: 1 View EP Interpretation: Yes PA Xray: Interpretation reviewed, by supervising MD, and agrees with findings. Interpretation: no consolidation, no effusion, no pneumothorax, other - pacemaker Impression: No acute disease Electronically Signed by: Reny Pan PA-C Last Vital Signs Date Time Temp Pulse Resp B/P (MAP) Pulse Ox O2 Delivery O2 Flow Rate FiO2 04/23/20 12:57 98.8 60 20 144/68 (93) 98 Room Air Disposition: ADMITTED INPATIENT Condition: Serious Referrals: Danie Banegas MD (PCP) Reny Pan Apr 23, 2020 14:02
--- NOTE | 2020-04-23 14:20 | NUR ---
ED Nurse Note:pt. came from home via wheelchair for left heel necrotic ulcer, pt. is non umbulatory, A/Ox4, outpatient dialysis MWF, permacath is on the right chest, pt. was placed on the bed and tube and rod straightener
--- NOTE | 2020-04-23 14:52 | NUR ---
ED Nurse Note:3 ER nurses tryed to start IV and get blood but were unsucsessfull , ER MD were notyfied
--- NOTE | 2020-04-23 15:08 | Diagnostic Imaging Report ---
Indication: Chest pain Technique: One view of the chest Comparison: 02/29/2020 Findings: Left chest pacemaker, right jugular tunneled dialysis catheter again demonstrated. Suboptimal inspiration. No definite acute infiltrates, effusions, congestion. Normal heart size. Impression: No acute process. Findings as noted
[2020-04-23] MEDS ORDERED: Lidocaine 1% Plain 30 ml INJ ONE (15:45)
[2020-04-23] MEDS ORDERED: Heparin1,000 units/500ml Premix(Conc:2 units/ml) IV ONE (15:45)
--- NOTE | 2020-04-23 15:46 | NUR ---
ED Nurse Note:pt. will have PICC line placement, consent sighned by pt.
[2020-04-23 17:08] VITALS: BP 94/41
--- NOTE | 2020-04-23 17:46 | NUR ---
ED Nurse Note:poultry hatchery laborer was able to draw CBC and CMP
[2020-04-23 17:52] LABS: EOSINOPHILS % (AUTO) 1.7 % (0.0-3.0); HEMATOCRIT 38.1 % (37.0-47.0); HEMOGLOBIN 11.7 G/DL (12.0-16.0); LYMPHOCYTES % (AUTO) 17.6 % (20.0-45.0); MEAN CORPUSCULAR VOLUME 96 FL (80-99); MONOCYTES % (AUTO) 4.5 % (1.0-10.0); NEUTROPHILS % (AUTO) 75.3 % (45.0-75.0); PLATELET COUNT 151 K/UL (150-450); RED BLOOD COUNT 3.99 M/UL (4.20-5.40); RED CELL DISTRIBUTION WIDTH 16.9 % (11.6-14.8); WHITE BLOOD COUNT 6.8 K/UL (4.8-10.8)
[2020-04-23 17:54] VITALS: BP 102/54
[2020-04-23] MEDS ORDERED: Cefepime HCl 1 GM in D5W 55 ML IVPB ONE (18:00)
[2020-04-23] MEDS ORDERED: Vancomycin 1 GM in D5W 275 ML IVPB ONE (18:00)
--- NOTE | 2020-04-23 18:39 | Consultation ---
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 It began as a pressure sore on left toe. Denied fever/chills. Allergies: Coded Allergies: PENICILLINS (Verified Allergy, Unknown, 04/23/20) Tolerated Cefepime 04/23/20 Medication History Scheduled Amino Acids/Protein Hydrolys (Pro-Stat Liquid), 30 ML ORAL TWICE A DAY, ( Reported) Amiodarone Hcl* (Pacerone*), 200 MG ORAL DAILY Apixaban (Eliquis), 2.5 MG ORAL BID Aspirin* (Aspirin*), 81 MG ORAL DAILY Atorvastatin Calcium* (Atorvastatin Calcium*), 10 MG ORAL BEDTIME, (Reported) Cholecalciferol (Vitamin D3) (Vitamin D-400*), 400 UNITS ORAL DAILY, (Reported) Docusate Sodium* (Docusate Sodium*), 100 MG ORAL TWICE A DAY, (Reported) Ferrous Sulfate* (Ferrous Sulfate*), 325 MG ORAL DAILY, (Reported) Gabapentin* (Gabapentin*), 100 MG ORAL Q12HR, (Reported) Gabapentin* (Gabapentin*), 300 MG ORAL THREE TIMES A DAY, (Reported) Hydralazine Hcl* (Hydralazine Hcl*), 25 MG ORAL EVERY 8 HOURS, (Reported) Sevelamer Carbonate* (Renvela*), 800 MG ORAL THREE TIMES A DAY, (Reported) Vitamin B Complex (Vitamin B Complex), 1 EACH PO DAILY, (Reported) [Nephro Aide], 1 TAB PO DAILY, (Reported) Scheduled PRN Acetaminophen* (Acetaminophen 325MG Tablet*), 650 MG ORAL Q4H PRN for For Pain, (Reported) Albuterol Sulfate* (Albuterol Sulfate Hhn*), 3 ML INH Q6H PRN for wheezing, ( Reported) Bisacodyl (Bisacodyl), 10 MG RC EVERY DAY PRN for Constipation, (Reported) Hydrocodone Bit/Acetaminophen 5-325* ([place] 5-325*), 1 TAB ORAL Q4H PRN for For Pain, (Reported) Pamela King-B/Na Phos,Di-Ba* (Fleet Enema*), 133 ML RECTAL DAILY PRN for Constipation, (Reported) [[facility]], 1 EA MISC DAILY PRN Miscellaneous Medications Dextran 70/Hypromellose (Artificial Tears Eye Drops*), 1 DROP BOTH EYES, ( Reported) Patient History Healthcare decision maker Resuscitation status Advanced Directive on File Patient History Narrative Pmhx: as above Shx: reviewed Fhx: non contributory Review of Systems All Other Systems: negative except mentioned in HPI Physical Exam Physical Exam Narrative General Appearance: no apparent distress, alert, GCS 15, non-toxic, obese, Chronically Ill Head: normocephalic, atraumatic Eyes: bilateral eye normal inspection, bilateral eye PERRL ENT: hearing grossly normal, normal voice Neck: full range of motion Respiratory: chest non-tender, lungs clear, normal breath sounds, no respiratory distress, no accessory muscle use, no wheezing, speaking full sentences Cardiovascular #1: regular rate, rhythm, no edema, other - slow cap refill time of lower extremities bilaterally Cardiovascular #2: 1+ dorsalis pedis (R) - very decreased peripheral pulses, , 1+ dorsalis pedis (L) Gastrointestinal: normal bowel sounds, non tender, soft Musculoskeletal: normal range of motion, non-tender, other - PT. wheel chair bound 2* left sided deficit residual from CVA Neurologic: alert, oriented x3, responsive, speech normal, sensory deficit - Peripheral sensory decreased, no focal defects Psychiatric: judgement/insight normal Skin: Decubitus/Ulcer - 2cm in diameter with a deeper 0.6cm center. Last 24 Hour Vital Signs Date Time Temp Pulse Resp B/P (MAP) Pulse Ox O2 Delivery O2 Flow Rate FiO2 04/23/20 17:54 98.8 63 18 102/54 97 Room Air 04/23/20 17:08 98.8 60 20 94/41 98 Room Air 04/23/20 12:57 98.8 60 20 144/68 (93) 98 Room Air Laboratory Tests Test 04/23/20 17:45 White Blood Count 6.8 K/UL (4.8-10.8) Red Blood Count 3.99 M/UL (4.20-5.40) L Hemoglobin 11.7 G/DL (12.0-16.0) L Hematocrit 38.1 % (37.0-47.0) Mean Corpuscular Volume 96 FL (80-99) Mean Corpuscular Hemoglobin 29.3 PG (27.0-31.0) Mean Corpuscular Hemoglobin Concent 30.6 G/DL (32.0-36.0) L Red Cell Distribution Width 16.9 % (11.6-14.8) H Platelet Count 151 K/UL (150-450) Mean Platelet Volume 8.8 FL (6.5-10.1) Neutrophils (%) (Auto) 75.3 % (45.0-75.0) H Lymphocytes (%) (Auto) 17.6 % (20.0-45.0) L Monocytes (%) (Auto) 4.5 % (1.0-10.0) Eosinophils (%) (Auto) 1.7 % (0.0-3.0) Basophils (%) (Auto) 1.0 % (0.0-2.0) Height (Feet): 5 Height (Inches): 5.00 Weight (Pounds): 261 Medications Current Medications Medications (Trade) Dose Ordered Sig/Jesus Route PRN Reason Start Time Stop Time Status Last Admin Dose Admin Cefepime HCl 1 gm/ Dextrose 55 ml @ 110 mls/hr ONCE ONCE IVPB 04/23/20 18:00 04/23/20 18:29 04/23/20 18:18 Chlorhexidine Gluconate (Cira-Hex 2%) 1 applic DAILY@2000 TOPIC 04/23/20 20:00 07/22/20 19:59 Vancomycin HCl 1 gm/Dextrose 275 ml @ 183.708 mls/hr ONCE ONCE IVPB 04/23/20 18:00 04/23/20 19:29 Assessment/Plan Assessment/Plan: Abx: IV Vancomycin x1 04/23 Cefepime x1 04/23 Assessment: L foot/ankle wound- probable OM Afebrile No leukocytosis -CXR: no acute disease Dm2 HTN Asthma/COPD 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 Will continue to follow along . Discussed with VIKAS. Kathia Lei M.D. Apr 23, 2020 18:39
--- NOTE | 2020-04-23 18:41 | NUR ---
ED Nurse Note:blood sent to labs, given iv antibiotics, pt. has sacral discoloration, picture were taken and download
--- NOTE | 2020-04-23 19:26 | NUR ---
HAND-OFF: Report given to Robby Salazar.
--- NOTE | 2020-04-23 19:30 | NUR ---
ED Nurse Note: received report from Sofia BEAN. Pt calm and resting, vss, nad, on breaker oiler. pending on lab results.
[2020-04-23 19:50] LABS: ALANINE AMINOTRANSFERASE 21 U/L (12-78); ALBUMIN 3.1 G/DL (3.4-5.0); ALBUMIN/GLOBULIN RATIO 0.9 (1.0-2.7); ALKALINE PHOSPHATASE 65 U/L (46-116); ANION GAP 11 mmol/L (5-15); ASPARTATE AMINO TRANSFERASE 20 U/L (15-37); BILIRUBIN,TOTAL 0.3 MG/DL (0.2-1.0); BLOOD UREA NITROGEN 44 mg/dL (7-18); CALCIUM 8.7 MG/DL (8.5-10.1); CARBON DIOXIDE 29 MMOL/L (21-32); CHLORIDE 101 MMOL/L (98-107); CREATININE 6.2 MG/DL (0.55-1.30); POTASSIUM 4.2 MMOL/L (3.5-5.1); SODIUM 140 MMOL/L (136-145)
[2020-04-23 20:00] VITALS: BP 118/81
[2020-04-23] MEDS: Dyna-Hex 2% Top Sol 2oz TOPIC SCH (20:00)
--- NOTE | 2020-04-23 20:00 | NUR ---
ED Nurse Note: gave report to Manny BEAN
--- NOTE | 2020-04-23 20:30 | NUR ---
TRANSFER TO FLOOR: Patient transferred to [facility] via [facility] in stable condition as ordered, per dr. Banegas. Report given to Manny BEAN. Belongings sent with patient.
[2020-04-23] MEDS ORDERED: Vancomycin 750mg/NS 275ml IVPB ONE ×2 (21:00)
--- NOTE | 2020-04-23 21:50 | NUR ---
NURSE NOTES: Received report from Robby sagastume RN at ER. The patient is alert and oriented x4 and is on RA with Resp even and unlabored and the bilateral lung sounds clear on Auscultation.The patient has a left heel necrotic ulcer, pt. is non umbulatory and has outpatient dialysis MWF. She has a permacath on the right chest for dialysis access. She also has a Right AC 20g that is patent and asymptomatic. Will continue to monitor progress.
[2020-04-23] MEDS: cefTRIAXone 2 GM in D5W 55 ML IVPB SCH (22:42)
[2020-04-23] MEDS: HydrALAZINE 25mg tab ORAL SCH (22:42)
--- NOTE | 2020-04-23 23:02 | NUR ---
Received admission orders from Dr. Banegas and executed as indicated. She complained of severed pain on the Bilateral lower legs and was given PRN pain Meds well tolerated. She was also help with Turning and reposition as indicated. She was noted with Left sided deficit that resulted from past medical history of CVA. Will continue to monitor
[2020-04-23] MEDS ORDERED: HYDROcodone/Acetamin 5/325 tab ORAL PRN (23:15)
[2020-04-23] MEDS ORDERED: Morphine Sulfate 2mg/ml Inj(IV/IM USE ONLY) IVP PRN (23:15)
[2020-04-24] VITALS: BP 129/70
[2020-04-24 04:00] VITALS: BP 118/84
[2020-04-24] MEDS: HydrALAZINE 25mg tab ORAL SCH ×4 (06:14→22:42)
--- NOTE | 2020-04-24 07:15 | NUR ---
HAND-OFF: Report given to Simi BEAN.Was endorsed to take pics of the sacral scar and L. heel necrotic sore because the Patient refused to comply last night.
--- NOTE | 2020-04-24 07:42 | NUR ---
NURSE NOTES: Report received from VIKAS Bryant. Patient awake in bed, alert and oriented x 4, no SOB noted, bed in lowest position with alarm on and breaks engaged, IV line on right AC patent and intact, on room air, denies any pain or discomfort at this time, will continue to monitor for changes and proceed with plan of care. Call light within reach.
[2020-04-24 07:50] LABS: % IRON SATURATION 7 % (15-50); IRON 64 ug/dL (50-175); TOTAL IRON BINDING CAPACITY 945 ug/dL (250-450)
[2020-04-24 08:00] VITALS: BP 128/71
[2020-04-24 08:01] LABS: GAMMA GLUTAMYL TRANSPEPTIDASE 15 U/L (5-85); PHOSPHORUS 4.1 MG/DL (2.5-4.9)
[2020-04-24 08:02] LABS: ALANINE AMINOTRANSFERASE 8 U/L (12-78); ALBUMIN 3.2 G/DL (3.4-5.0); ALBUMIN/GLOBULIN RATIO 0.8 (1.0-2.7); ALKALINE PHOSPHATASE 66 U/L (46-116); ANION GAP 7 mmol/L (5-15); ASPARTATE AMINO TRANSFERASE 15 U/L (15-37); BILIRUBIN,TOTAL 0.4 MG/DL (0.2-1.0); BLOOD UREA NITROGEN 51 mg/dL (7-18); CALCIUM 8.8 MG/DL (8.5-10.1); CARBON DIOXIDE 31 MMOL/L (21-32); CHLORIDE 102 MMOL/L (98-107); CHOLESTEROL 163 MG/DL (< 200); CREATININE 6.8 MG/DL (0.55-1.30); HDL CHOLESTEROL 71 MG/DL (40-60); SODIUM 140 MMOL/L (136-145); TRIGLYCERIDES 54 MG/DL (30-150)
[2020-04-24 08:28] LABS: FERRITIN 1193 NG/ML (8-388)
--- NOTE | 2020-04-24 08:34 | Diagnostic Imaging Report ---
EXAM: XR Left Foot Complete, 3 or More Views CLINICAL HISTORY: PAIN TECHNIQUE: Frontal, lateral and oblique views of the left foot. COMPARISON: No relevant prior studies available. FINDINGS: Bones/joints: There is severe osteoporosis. No definite fracture or subluxation is identified. The midfoot and hindfoot appears within normal limits. Soft tissues: Unremarkable. No radiopaque foreign body. IMPRESSION: No acute findings in the left foot.
--- NOTE | 2020-04-24 08:35 | Diagnostic Imaging Report ---
EXAM: XR Left Ankle Complete, 3 or More Views CLINICAL HISTORY: PAIN TECHNIQUE: Frontal, lateral and oblique views of the left ankle. COMPARISON: No relevant prior studies available. FINDINGS: Bones/joints: Severe osteoporosis without acute fracture or subluxation. Soft tissues: Unremarkable. IMPRESSION: No acute findings in the left ankle.
[2020-04-24] MEDS ORDERED: Docusate 100mg cap ORAL SCH (09:00)
[2020-04-24] MEDS: Renvela 800mg Pkt ORAL SCH ×3 (09:09→17:57)
[2020-04-24] MEDS: Eliquis 2.5mg tablet ORAL SCH ×2 (09:10→17:57)
[2020-04-24] MEDS: Docusate 100mg cap ORAL SCH ×3 (09:11→17:57)
[2020-04-24] MEDS: Aspirin Baby 81mg ORAL SCH (09:27)
[2020-04-24 12:00] VITALS: BP 103/65
--- NOTE | 2020-04-24 13:30 | Consultation ---
Consult Note Assessment/Plan [id number] Manas Stephenson MD Apr 24, 2020 13:30
--- NOTE | 2020-04-24 13:34 | History & Physical ---
History and Physical History & Physicial HISTORY OF PRESENT ILLNESS: The patient is a pleasant 69-year-old female with a history of end-stage renal disease, on hemodialysis. The patient has been transferred from her home with worsening feet pain and discharges worse on the left ankle. . The patient is currently receiving dialysis through a temporary PermCath. Today , the patient denies any chest pain or shortness of breath. No nausea. No vomitus. No diarrhea. No constipation. PAST MEDICAL HISTORY: Diabetes, CVA, paraparesis, and end-stage renal disease. decubitus wound ALLERGIES: Penicillin. PSH: Right permcath insertion . MEDICATIONS: Current hospital medications including, but not limited to lisinopril, hydralazine, Eliquis, and amiodarone. SOCIAL HISTORY: The patient has a daughter who is involved in the care, is residing in her home with her daughter. she was dc/wd from the residential facility. No prior history of illicit drug abuse, smoking, or alcohol abuse. PHYSICAL EXAMINATION: BP: 140/85, RR: 13, temperature 98.2, pulse oximetry 98% on room air, and pulse rate 60 to 65. HEAD AND NECK: Atraumatic and normocephalic. CHEST: Clear to auscultation. HEART: S1, S2. Regular rate and rhythm. Bradycardic. MUSCULOSKELETAL: No gross lateralized motor deficit, paraparesis. stage 3 decubitus wound in calcaneal region.NEUROLOGIC: The patient is awake and alert x 2. LABORATORY AND DIAGNOSTIC DATA: Labs dated 04/24/20 reviewed ASSESSMENT: 1. SIRS 2. Decubitus wound, enlarging and infected. 3. End-stage renal disease, on temporary PermCath hemodialysis access. 2. Paroxysmal atrial fibrillation, rate is stable. 3. Diabetes type 2. 4. Hypertension. 5. Hyperlipidemia. 6. CVA-history. 7. Dementia. 8. Gastrointestinal and deep vein thrombosis prophylaxes. 9. Pain management Plan: Empirical abx initiated [facility] care and vascular services consulted. Agree with med surge admission Comment: time of this dictation does not reflect actual time of the encounter Danie Banegas MD Apr 24, 2020 13:34
--- NOTE | 2020-04-24 13:41 | Consultation ---
Consult Note Consult Note PULMONARY CONSULTATION HISTORY OF PRESENT ILLNESS: The patient is a pleasant 69-year-old female with a history of end-stage renal disease, on hemodialysis. She was admitted with worsening feet pain and discharges worse on the left ankle. . The patient is currently receiving dialysis through a temporary PermCath. Today , the patient denies any chest pain or shortness of breath. No nausea. No vomitus. No diarrhea. No constipation. She denies shortness of breath or cough. PAST MEDICAL HISTORY: Diabetes, CVA, paraparesis, and end-stage renal disease. decubitus wound ALLERGIES: Penicillin. PSH: Right permcath insertion . MEDICATIONS: Current hospital medications include lisinopril, hydralazine, Eliquis, and amiodarone. SOCIAL HISTORY: The patient has a daughter who is involved in the care, is residing in her home with her daughter. she was dc/wd from the snf facility. No prior history of illicit drug abuse, smoking, or alcohol abuse. PHYSICAL EXAMINATION: BP: 140/85, RR: 13, temperature 98.2, pulse oximetry 98% on room air, and pulse rate 60 to 65. HEAD AND NECK: Atraumatic and normocephalic. CHEST: Clear to auscultation. HEART: S1, S2. Regular rate and rhythm. Bradycardic. MUSCULOSKELETAL: No gross lateralized motor deficit, paraparesis. stage 3 decubitus wound in calcaneal region. NEUROLOGIC: The patient is awake and alert x 2. LABORATORY AND DIAGNOSTIC DATA: Labs dated 04/24/20 reviewed ASSESSMENT: 1. Mild pulmonary edema 2. Decubitus wound, enlarging and infected. 3. End-stage renal disease, on temporary PermCath hemodialysis access. 2. Paroxysmal atrial fibrillation, rate is stable. 3. Diabetes type 2. 4. Hypertension. 5. Hyperlipidemia. 6. CVA-history. 7. Dementia. 8. Gastrointestinal and deep vein thrombosis prophylaxes. 9. Pain management Plan: HD per nephrology Needs local wound care Will initiate oxygen and pulmonary hygiene Broad spectrum abx Suraj Henriquez MD Apr 24, 2020 13:41
--- NOTE | 2020-04-24 13:42 | General Progress Note ---
Assessment/Plan Assessment/Plan: S: I have pain O: worsening pain . worse with movement. PHYSICAL EXAMINATION: HEAD AND NECK: Atraumatic and normocephalic. CHEST: Clear to auscultation. HEART: S1, S2. Regular rate and rhythm. Bradycardic. MUSCULOSKELETAL: paraparesis. stage 3 decubitus wound in calcaneal region. NEUROLOGIC: The patient is awake and alert x 2. LABORATORY AND DIAGNOSTIC DATA: Labs dated 04/24/20 reviewed ASSESSMENT: 1. SIRS 2. Decubitus wound, enlarging and infected. 3. End-stage renal disease, on temporary PermCath hemodialysis access. 2. Paroxysmal atrial fibrillation, rate is stable. 3. Diabetes type 2. 4. Hypertension. 5. Hyperlipidemia. 6. CVA-history. 7. Dementia. 8. Gastrointestinal and deep vein thrombosis prophylaxes. 9. Pain management 10. iron deficiency anemia Plan: Empirical abx initiated Notes from [facility] care reviewed D/w Dr Fam, vascular surgeon Increased Morphin , Add Dilaudid PRN breakthrough Consulted Hem Onch Subjective Allergies: Coded Allergies: PENICILLINS (Verified Allergy, Unknown, 04/23/20) Tolerated Cefepime 04/23/20 Objective Last 24 Hour Vital Signs Date Time Temp Pulse Resp B/P (MAP) Pulse Ox O2 Delivery O2 Flow Rate FiO2 04/24/20 13:12 103/65 04/24/20 12:00 98.0 70 18 103/65 (78) 96 04/24/20 09:00 Room Air 04/24/20 08:00 98.4 70 18 128/71 (90) 96 04/24/20 06:14 118/84 04/24/20 04:00 97.8 74 19 118/84 (95) 94 04/24/20 00:00 98.1 77 18 129/70 (89) 94 04/23/20 22:42 141/80 04/23/20 21:45 Room Air 04/23/20 20:30 98.3 73 18 118/81 98 Room Air 04/23/20 20:00 98.3 73 18 118/81 98 Room Air 04/23/20 17:54 98.8 63 18 102/54 97 Room Air 04/23/20 17:08 98.8 60 20 94/41 98 Room Air Intake and Output 04/23/20 04/24/20 19:00 07:00 Intake Total 120 ml 210 ml Balance 120 ml 210 ml Intake Oral 120 ml 210 ml # Voids 1 Laboratory Tests 04/23/20 17:45: White Blood Count 6.8, Red Blood Count 3.99L, Hemoglobin 11.7L, Hematocrit 38.1 , Mean Corpuscular Volume 96, Mean Corpuscular Hemoglobin 29.3, Mean Corpuscular Hemoglobin Concent 30.6L, Red Cell Distribution Width 16.9H, Platelet Count 151, Mean Platelet Volume 8.8, Neutrophils (%) (Auto) 75.3H, Lymphocytes (%) (Auto) 17.6L, Monocytes (%) (Auto) 4.5, Eosinophils (%) (Auto) 1.7, Basophils (%) (Auto) 1.0 04/23/20 18:40: Sodium Level 140, Potassium Level 4.2, Chloride Level 101, Carbon Dioxide Level 29, Anion Gap 11, Blood Urea Nitrogen 44H, Creatinine 6.2H, Estimat Glomerular Filtration Rate 8.1, Glucose Level 145H, Lactic Acid Level 1.00, Calcium Level 8.7, Total Bilirubin 0.3, Aspartate Amino Transf (AST/SGOT) 20, Alanine Aminotransferase (ALT/SGPT) 21, Alkaline Phosphatase 65, Troponin I 0.005, Total Protein 6.6, Albumin 3.1L, Globulin 3.5, Albumin/Globulin Ratio 0.9L 04/24/20 06:55: Sodium Level 140, Potassium Level 5.0, Chloride Level 102, Carbon Dioxide Level 31, Anion Gap 7, Blood Urea Nitrogen 51H, Creatinine 6.8H, Estimat Glomerular Filtration Rate 7.3, Glucose Level 163H, Calcium Level 8.8, Total Bilirubin 0.4 , Aspartate Amino Transf (AST/SGOT) 15, Alanine Aminotransferase (ALT/SGPT) 8L, Alkaline Phosphatase 66, Troponin I 0.029, Total Protein 7.0, Albumin 3.2L, Globulin 3.8, Albumin/Globulin Ratio 0.8L, Erythrocyte Sedimentation Rate 53H, Hemoglobin A1c 6.1H, Uric Acid 4.9, Phosphorus Level 4.1, Magnesium Level 2.4, Iron Level 64, Total Iron Binding Capacity 945H, Percent Iron Saturation 7L, Unsaturated Iron Binding 881H, Ferritin 1193H, Gamma Glutamyl Transpeptidase 15 , C-Reactive Protein, Quantitative 5.9H, Pro-B-Type Natriuretic Peptide 3427H, Triglycerides Level 54, Cholesterol Level 163, LDL Cholesterol 65, HDL Cholesterol 71H, Cholesterol/HDL Ratio 2.3L, Vitamin B12 Level 879, Folate 8.2L , Thyroid Stimulating Hormone (TSH) 0.923 Height (Feet): 5 Height (Inches): 5.00 Weight (Pounds): 263 Danie Banegas MD Apr 24, 2020 13:42
[2020-04-24] MEDS ORDERED: Hydromorphone 0.5mg/0.5ml inj SUBQ PRN (14:22)
--- NOTE | 2020-04-24 15:50 | NUR ---
CASE MANAGEMENT:INITIAL REVIEW 69 YR OLD FEMALE FROM HOME CC;LOWER EXTREMITY INJURY SI;MODERATE LOWER EXTREMITY CELLULITIS W/POOR CIRCULATION LEFT FOOT CELLULITIS. ESRD. DIABETIC NEUROPATHY. 98.8 63 94/41 97% ON RA BUN 44 CR 6.2 BG 145 ALB 3.1 CXR ~ NO ACUTE PROCESS IS;VANCOMYCIN IV ADMITTED TO MED SURG MED SURG STATUS DCP;FROM HOME
[2020-04-24 16:00] VITALS: BP 112/68
--- NOTE | 2020-04-24 16:42 | NUR ---
NURSE NOTES:WOUND CARE NOTES: Pt presented on admission with Moisture Intertrigo Bilat Breasts and Abdominal folds. Unstageable Pressure Injury Lateral L heel (L)2.2cm x (W)2.2cm. Base of wound is 80% soft necrosis,10% slough, remaining 10% monique.Epibole approx 50% borders,50% pink. Small amt Brownish exudate. Wound is malodorous. Loose non-viable tissue removed.Base of wound now 90% slough,10% monique. Odor improved post cleansing. Therahoney applied with small 2x2 packing,covered with ABD pad and wrapped with Kerlix until orders for wound care can be clarified with DPM. Both feet are cold to touch and dusky at distal aspect including metatarsals both feet;dorsum L 3rd metatarsal is black. Dry eschar noted to L 1st metatarsal head(L)1.1cm x (W)1.6cm.Pt complained of pain LLE and L foot to slightest touch or movement R heel is boggy and pale. Moisture Intertrigo skin folds both breasts and abdominal folds. Both areas are malodorous. Cleansed with soap and water and gently dried. Phytoplex Antifungal Powder applied to affected areas. R and L groin are moist and erythematous. Moisture Barrier Paste applied. Darker skin tone with two small indurated areas at Sacrococcygeal area noted. Pt complained site tender when minimally palpated. In close proximity above coccyx at cleft is resolving Pressure injury. [place] epithelial noted. An area of hyperpigmentation with pink epithelial medially noted to L Ischial tuberosity. Hyperpigmentation noted to R Ischium. Tx.Plan: Wash and dry skin folds both breasts and Abdominal folds. Apply Light Dusting of Antifungal powder Twice Daily. Apply Moisture Barrier Paste to Bilat groin and Buttocks with each Incontinence care. Cover Sacrum with Optifoam drsg. Change every 3 days and prn. Apply Cavilon Skin Barrier to R Heel and Malleoli. Cover with Optifoam drsg. Change every 7 days and prn. PLEASE CLARIFY TX ORDERS FOR L HEEL WOUND WITH PODIATRY. Reposition at least every 2hours or as tolerated. Off-load heels with pillow.
--- NOTE | 2020-04-24 19:30 | NUR ---
NURSE NOTES: Pt. received from VIKAS Belcher. Pt. sleeping in bed, breathing even and unlabored, no indications of pain and no indications of respiratory distress noted. IV noted right AC 20g intact and patent tko running. Bed is low and locked, side rails x3 up, bed alarm active, and call light in reach.
--- NOTE | 2020-04-24 19:30 | Consultation ---
DATE OF CONSULTATION: 04/24/2020 RENAL CONSULTATION REASON FOR CONSULTATION: I am asked to evaluate the patient at the request of Dr. Banegas for dialysis management. HISTORY OF PRESENT ILLNESS: The patient is under my care for her dialysis related management. She gets her dialysis on Sunday, Sunday, and Sunday under my supervision at [facility]. She came to the emergency room for lower extremity injury and pain. She complained of pain 10/10 at emergency room with tenderness and worsening progression of wound to the left foot for the past few weeks. The patient is nonambulatory. PAST MEDICAL HISTORY: Significant for diabetes mellitus, previous CVA, end-stage renal disease, on dialysis, history of pacemaker, and history of asthma. ALLERGIES: Penicillin. However in the past has tolerated cefepime. COVID-19 screening in the emergency room has been negative. PHYSICAL EXAMINATION: GENERAL: The patient is awake, forgetful, not in any distress unless her lower extremities is examined. VITAL SIGNS: Temperature 98.8, pulse rate 60, respiratory rate 20, blood pressure 144/68, and pulse ox 98% on room air lying flat. Has a right chest Permacath in place. HEENT: Head normocephalic. Eyes not icteric. NECK: Limited movement to both directions. LUNGS: Poor inspiratory effort. Decreased breath sounds over the bases. HEART: Mainly irregular. Occasional irregular beats. ABDOMEN: Soft. EXTREMITIES: Lower extremities, no edema. SKIN: A decubitus ulcer 2 cm in diameter with a deeper necrotic 0.6 cm in the center. The patient also has erythema and pressure sore on tailbone without any skin breakdown. NEUROLOGIC: The patient has left-sided weakness and also decreased sensory over lower extremities with occasional evidence of poor circulation and dark ____ toes. LABORATORY RESULTS: Hemoglobin 11.7 and white blood cells 6.8. Electrolytes normal. Creatinine 6.8. Hemoglobin A1c 6.1. Serum ferritin is 1193. IMPRESSION: 1. End-stage renal disease, on hemodialysis. 2. Cellulitis of the left foot. 3. Diabetes with diabetic nephropathy and neuropathy. 4. History of CVA with left weakness. 5. History of atrial fibrillation. 6. History of pacemaker. PLAN: 1. Antibiotics. 2. Renal diet. 3. Controlled blood sugar and blood pressure. 4. Hemodialysis Sunday, Sunday, Sunday or as needed. 5. Podiatry evaluation. 6. According to how the patient's condition evolves, we will make the proper changes in our future management. I spent an additional 36 minutes on review of medical records including prior hospital records,consult notes, progress notes, procedures ,imaging labs, hemodynamics, and other clinical documentation. Over 35 min Manas Stephenson M.D. DR: ARELIS JOB#: [id number] CC: KAY
--- NOTE | 2020-04-24 19:45 | NUR ---
HAND-OFF: Report given to VIKAS Almendarez.
[2020-04-24 20:00] VITALS: BP 129/74
[2020-04-24] MEDS: cefTRIAXone 2 GM in D5W 55 ML IVPB SCH (21:09)
[2020-04-24] MEDS: Dyna-Hex 2% Top Sol 2oz TOPIC SCH (21:09)
[2020-04-24] MEDS: Morphine Sulfate 4mg/ml Inj (IV USE ONLY) IVP PRN (21:10)
[2020-04-25] VITALS (19 sets, daily range): BP systolic 60–140; BP diastolic 31–100
[2020-04-25] MEDS: HydrALAZINE 25mg tab ORAL SCH (06:00)
--- NOTE | 2020-04-25 07:29 | NUR ---
HAND-OFF: Report given to VIKAS Portillo. Endorsed plan of care.
--- NOTE | 2020-04-25 07:32 | NUR ---
NURSE NOTES: Received report from VIKAS Almendarez. Patient A&Ox2-3. On room air, no signs of distress or labored breathing IV intact, patent, and infusing TKO. Bed in lowest position with call light in reach. Will continue with plan of care.
--- NOTE | 2020-04-25 08:31 | Pulmonology Progress Note ---
Subjective Interval Events: None new Constitutional: Reports: no symptoms HEENT: Repors: no symptoms Respiratory: Reports: no symptoms Cardiovascular: Reports: no symptoms Allergies: Coded Allergies: PENICILLINS (Verified Allergy, Unknown, 04/23/20) Tolerated Cefepime 04/23/20 Objective Last 24 Hour Vital Signs Date Time Temp Pulse Resp B/P (MAP) Pulse Ox O2 Delivery O2 Flow Rate FiO2 04/25/20 08:00 98.5 71 20 100/60 (73) 96 04/25/20 06:00 90/61 04/25/20 04:00 98.7 67 19 90/61 (71) 94 04/25/20 00:00 98.0 76 19 137/88 (104) 95 04/24/20 22:42 104/72 04/24/20 21:40 97.5 04/24/20 21:00 Room Air 04/24/20 20:00 98.6 75 19 129/74 (92) 95 04/24/20 16:00 97.5 69 18 112/68 (83) 96 04/24/20 14:00 103/62 04/24/20 13:12 103/65 04/24/20 12:00 98.0 70 18 103/65 (78) 96 04/24/20 09:00 Room Air Intake and Output 04/24/20 04/25/20 19:00 07:00 Intake Total 1000 ml 55 ml Balance 1000 ml 55 ml Intake Oral 1000 ml IV Total 55 ml # Voids 1 General Appearance: no acute distress HEENT: normocephalic Respiratory: chest wall non-tender Cardiovascular: normal peripheral pulses Abdomen: soft, non tender Microbiology Date/Time Source Procedure Growth Status 04/23/20 18:40 Blood Blood Culture - Preliminary NO GROWTH AFTER 24 HOURS Resulted 04/23/20 18:30 Blood Blood Culture - Preliminary NO GROWTH AFTER 24 HOURS Resulted Laboratory Tests 04/25/20 06:10: Random Vancomycin Level 17.1 Current Medications Medications (Trade) Dose Ordered Sig/Jesus Route PRN Reason Start Time Stop Time Status Last Admin Dose Admin Acetaminophen/ Hydrocodone Bitart ([place] 5/325) 1 tab EVERY 8 HOURS PRN ORAL For Pain 04/23/20 23:15 04/30/20 23:14 Apixaban (Eliquis) 2.5 mg BID ORAL 04/24/20 09:00 07/23/20 08:59 04/24/20 17:57 Aspirin (ASA) 81 mg DAILY ORAL 04/24/20 09:15 06/08/20 08:59 04/24/20 09:27 Atorvastatin Calcium (Lipitor) 10 mg BEDTIME ORAL 04/24/20 21:00 07/23/20 20:59 04/24/20 21:09 Ceftriaxone Sodium 2 gm/ Dextrose 55 ml @ 110 mls/hr Q24H IVPB 04/23/20 21:00 04/30/20 20:59 04/24/20 21:09 Chlorhexidine Gluconate (Cira-Hex 2%) 1 applic DAILY@2000 TOPIC 04/23/20 20:00 07/22/20 19:59 04/24/20 21:09 Docusate Sodium (Colace) 100 mg TID ORAL 04/24/20 09:00 05/24/20 08:59 04/24/20 17:57 Hydralazine HCl (Apresoline) 25 mg EVERY 8 HOURS ORAL 04/24/20 14:00 07/22/20 21:59 Hydromorphone HCl (Dilaudid) 0.5 mg Q8H PRN SUBQ breakthrough pain 04/24/20 14:22 05/01/20 14:21 Morphine Sulfate (Morphine Sulfate) 4 mg Q8H PRN IVP For Pain 04/24/20 13:30 05/01/20 13:29 04/24/20 21:10 Ondansetron HCl (Zofran) 4 mg Q6H PRN IVP Nausea & Vomiting 04/23/20 23:15 05/23/20 23:14 Pantoprazole (Protonix) 40 mg EVERY 12 HOURS ORAL 04/24/20 09:00 05/24/20 08:59 04/24/20 21:09 Sevelamer Carbonate (Renvela) 800 mg THREE TIMES A DAY ORAL 04/24/20 09:00 07/23/20 08:59 04/24/20 17:57 Vancomycin HCl (Vanco pharmacy to dose) 1 ea DAILY PRN MISC Per rx protocol 04/23/20 19:15 05/23/20 19:14 Vancomycin HCl 750 mg/Sodium Chloride 275 ml @ 183.333 mls/hr ONCE ONCE IVPB 04/25/20 09:00 04/25/20 10:29 Assessment/Plan Assessment/Plan ASSESSMENT: 1. Mild pulmonary edema 2. Decubitus wound, 3. End-stage renal disease, on temporary PermCath hemodialysis access. 2. Paroxysmal atrial fibrillation, 3. Diabetes type 2. 4. Hypertension. 5. Hyperlipidemia. 6. CVA-history. 7. Dementia. Plan: HD per nephrology Needs local wound care Will continue oxygen and pulmonary hygiene Broad spectrum abx Suraj Henriquez MD Apr 25, 2020 08:31
[2020-04-25] MEDS: Renvela 800mg Pkt ORAL SCH ×2 (08:46→13:00)
[2020-04-25] MEDS: Docusate 100mg cap ORAL SCH ×2 (08:46→13:00)
[2020-04-25] MEDS: Eliquis 2.5mg tablet ORAL SCH (08:47)
[2020-04-25] MEDS: Aspirin Baby 81mg ORAL SCH (08:48)
[2020-04-25] MEDS: Morphine Sulfate 4mg/ml Inj (IV USE ONLY) IVP PRN (08:49)
[2020-04-25] MEDS ORDERED: Vancomycin 750mg/NS 275ml IVPB ONE ×2 (09:00)
--- NOTE | 2020-04-25 09:04 | Consultation ---
History of Present Illness General Chief Complaint: Lower Extremity Injury Present Illness Allergies: Coded Allergies: PENICILLINS (Verified Allergy, Unknown, 04/23/20) Tolerated Cefepime 04/23/20 Medication History Scheduled Amino Acids/Protein Hydrolys (Pro-Stat Liquid), 30 ML ORAL TWICE A DAY, ( Reported) Amiodarone Hcl* (Pacerone*), 200 MG ORAL DAILY Apixaban (Eliquis), 2.5 MG ORAL BID Aspirin* (Aspirin*), 81 MG ORAL DAILY Atorvastatin Calcium* (Atorvastatin Calcium*), 10 MG ORAL BEDTIME, (Reported) Cholecalciferol (Vitamin D3) (Vitamin D-400*), 400 UNITS ORAL DAILY, (Reported) Docusate Sodium* (Docusate Sodium*), 100 MG ORAL TWICE A DAY, (Reported) Ferrous Sulfate* (Ferrous Sulfate*), 325 MG ORAL DAILY, (Reported) Gabapentin* (Gabapentin*), 100 MG ORAL Q12HR, (Reported) Gabapentin* (Gabapentin*), 300 MG ORAL THREE TIMES A DAY, (Reported) Hydralazine Hcl* (Hydralazine Hcl*), 25 MG ORAL EVERY 8 HOURS, (Reported) Sevelamer Carbonate* (Renvela*), 800 MG ORAL THREE TIMES A DAY, (Reported) Vitamin B Complex (Vitamin B Complex), 1 EACH PO DAILY, (Reported) [Nephro Aide], 1 TAB PO DAILY, (Reported) Scheduled PRN Acetaminophen* (Acetaminophen 325MG Tablet*), 650 MG ORAL Q4H PRN for For Pain, (Reported) Albuterol Sulfate* (Albuterol Sulfate Hhn*), 3 ML INH Q6H PRN for wheezing, ( Reported) Bisacodyl (Bisacodyl), 10 MG RC EVERY DAY PRN for Constipation, (Reported) Hydrocodone Bit/Acetaminophen 5-325* ([place] 5-325*), 1 TAB ORAL Q4H PRN for For Pain, (Reported) Na Phos,M-B/Na Phos,Di-Ba* (Fleet Enema*), 133 ML RECTAL DAILY PRN for Constipation, (Reported) [[facility] pharmacy to dose], 1 EA MISC DAILY PRN Miscellaneous Medications Dextran 70/Hypromellose (Artificial Tears Eye Drops*), 1 DROP BOTH EYES, ( Reported) Patient History Healthcare decision maker Resuscitation status Advanced Directive on File Physical Exam Last 24 Hour Vital Signs Date Time Temp Pulse Resp B/P (MAP) Pulse Ox O2 Delivery O2 Flow Rate FiO2 04/25/20 08:00 98.5 71 20 100/60 (73) 96 04/25/20 06:00 90/61 04/25/20 04:00 98.7 67 19 90/61 (71) 94 04/25/20 00:00 98.0 76 19 137/88 (104) 95 04/24/20 22:42 104/72 04/24/20 21:40 97.5 04/24/20 21:00 Room Air 04/24/20 20:00 98.6 75 19 129/74 (92) 95 04/24/20 16:00 97.5 69 18 112/68 (83) 96 04/24/20 14:00 103/62 04/24/20 13:12 103/65 04/24/20 12:00 98.0 70 18 103/65 (78) 96 04/24/20 09:00 Room Air Intake and Output 04/24/20 04/25/20 19:00 07:00 Intake Total 1000 ml 55 ml Balance 1000 ml 55 ml Intake Oral 1000 ml IV Total 55 ml # Voids 1 Laboratory Tests Test 04/25/20 06:10 Random Vancomycin Level 17.1 ug/mL Height (Feet): 5 Height (Inches): 5.00 Weight (Pounds): 263 Medications Current Medications Medications (Trade) Dose Ordered Sig/Jesus Route PRN Reason Start Time Stop Time Status Last Admin Dose Admin Acetaminophen/ Hydrocodone Bitart ([place] 5/325) 1 tab EVERY 8 HOURS PRN ORAL For Pain 04/23/20 23:15 04/30/20 23:14 Apixaban (Eliquis) 2.5 mg BID ORAL 04/24/20 09:00 07/23/20 08:59 04/25/20 08:47 Aspirin (ASA) 81 mg DAILY ORAL 04/24/20 09:15 06/08/20 08:59 04/25/20 08:48 Atorvastatin Calcium (Lipitor) 10 mg BEDTIME ORAL 04/24/20 21:00 07/23/20 20:59 04/24/20 21:09 Ceftriaxone Sodium 2 gm/ Dextrose 55 ml @ 110 mls/hr Q24H IVPB 04/23/20 21:00 04/30/20 20:59 04/24/20 21:09 Chlorhexidine Gluconate (Cira-Hex 2%) 1 applic DAILY@2000 TOPIC 04/23/20 20:00 07/22/20 19:59 04/24/20 21:09 Docusate Sodium (Colace) 100 mg TID ORAL 04/24/20 09:00 05/24/20 08:59 04/25/20 08:46 Hydralazine HCl (Apresoline) 25 mg EVERY 8 HOURS ORAL 04/24/20 14:00 07/22/20 21:59 Hydromorphone HCl (Dilaudid) 0.5 mg Q8H PRN SUBQ breakthrough pain 04/24/20 14:22 05/01/20 14:21 Morphine Sulfate (Morphine Sulfate) 4 mg Q8H PRN IVP For Pain 04/24/20 13:30 05/01/20 13:29 04/25/20 08:49 Ondansetron HCl (Zofran) 4 mg Q6H PRN IVP Nausea & Vomiting 04/23/20 23:15 05/23/20 23:14 04/25/20 08:46 Pantoprazole (Protonix) 40 mg EVERY 12 HOURS ORAL 04/24/20 09:00 05/24/20 08:59 04/25/20 08:46 Sevelamer Carbonate (Renvela) 800 mg THREE TIMES A DAY ORAL 04/24/20 09:00 07/23/20 08:59 04/25/20 08:46 Vancomycin HCl (Vanco pharmacy to dose) 1 ea DAILY PRN MISC Per rx protocol 04/23/20 19:15 05/23/20 19:14 Vancomycin HCl 750 mg/Sodium Chloride 275 ml @ 183.333 mls/hr ONCE ONCE IVPB 04/25/20 09:00 04/25/20 10:29 04/25/20 08:48 Assessment/Plan Assessment/Plan: Hematology Consultation KANDIS COLEY: Pamela Banegas RFC: Anemia w/u DOS 04/25/20 ID 69-year-old female presents to the emergency department for 10 out of 10 severity pain, tenderness and worsening progression of wound to the left foot times several weeks. 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 Stephenson. Patient reports having a pressure sore on the left toe that took a long time to heal, and that this began in a similar fashion but has gotten much worse. She denies fevers or chills. No other aggravating or relieving factors. She reports history of neuropathy in the affected extremity as well. Allergies: PENICILLINS (Verified Allergy, Unknown, 04/23/20) Tolerated Cefepime 04/23/20 COVID-19 Screening Contact w/high risk pt: No Recent Travel to affected area: No Experienced COVID-19 symptoms?: No COVID-19 symptoms experienced: Cough COVID-19 Testing performed FIBREGLASS LAMINATOR: No Patient History Past Medical History: see triage record Now: No Immunizations: UTD Reviewed Nursing Documentation: PMH: Agreed; PSxH: Agreed Nursing Documentation-PMH Hx Cardiac Problems: Yes - BRADYCARDIA, FLUID OVERLOAD Hx Hypertension: Yes Hx Pacemaker: Yes - LEFT UPPER CHEST Hx Asthma: Yes Hx COPD: Yes Hx Diabetes: Yes Hx Cancer: No Hx Gastrointestinal Problems: No Hx Dialysis: Yes - ESRD ON HD (MWF) Hx Neurological Problems: Yes Hx Cerebrovascular Accident: Yes - 1973 Hx Weakness: Yes Review of Systems All Other Systems: negative except mentioned in HPI Physical Exam Vitals: reviewed Gen: no apparent distress, alert, non-toxic, obese, Chronically Ill HEENT: hearing grossly normal, normal voice Neck: full range of motion Resp: chest non-tender, lungs clear, normal breath sounds, no respiratory distress, permacath left side Cardiovascular: regular rate, rhythm, no edema, other - slow cap refill time of lower extremities bilaterally GI: normal bowel sounds, non tender, soft Msk: normal range of motion, non-tender, other - PT. wheel chair bound Neuro: alert, oriented x3, responsive, speech normal, sensory deficit Psychiatric: judgement/insight normal Skin: Decubitus/Ulcer - 2cm in diameter with a deeper necrotic 0.6cm center. erythema- pressure sore on tailbone. no skin break down Labs noted Imaging reviewed Assessment and Recs # Anemia is likely due to esrd, has been under care of Dr. Stephenson --> continue hd as needed --> with permacath in place on chest, no infection --> epo, iron as needed --> cbc has been ordered # Hypercoagulable disorder with afib hx --> on eliquis which has been started --> no bleeding noted # Cellulitis of left foot --> as per id --> abx started vanc # ESRD (end stage renal disease) --> per renal care # Diabetic nephropathy --> wound care and endo recs --> a1c goal <8 # Dvt ppx olive LEAHY Rn and appreciate consultation Husam Byers MD Apr 25, 2020 09:04
[2020-04-25] MEDS ORDERED: HydrALAZINE 25mg tab ORAL PRN ×3 (10:45→19:37)
--- NOTE | 2020-04-25 10:52 | Nephrology Progress Note ---
Assessment/Plan Problem List: (1) ESRD (end stage renal disease) (2) Pacemaker (3) Diabetic nephropathy (4) Cellulitis of left foot (5) Anemia in chronic kidney disease (CKD) (6) History of CVA (cerebrovascular accident) (7) History of atrial fibrillation Plan Dialysis tomorrow Monitor H&H and renal parameters and electrolytes Adjust blood pressure medications Antibiotic per ID Pain medication adjusted Continue per consultants Subjective ROS Limited/Unobtainable: No Constitutional: Reports: malaise Objective Objective Last 24 Hour Vital Signs Date Time Temp Pulse Resp B/P (MAP) Pulse Ox O2 Delivery O2 Flow Rate FiO2 04/25/20 08:00 98.5 71 20 100/60 (73) 96 04/25/20 06:00 90/61 04/25/20 04:00 98.7 67 19 90/61 (71) 94 04/25/20 00:00 98.0 76 19 137/88 (104) 95 04/24/20 22:42 104/72 04/24/20 21:40 97.5 04/24/20 21:00 Room Air 04/24/20 20:00 98.6 75 19 129/74 (92) 95 04/24/20 16:00 97.5 69 18 112/68 (83) 96 04/24/20 14:00 103/62 04/24/20 13:12 103/65 04/24/20 12:00 98.0 70 18 103/65 (78) 96 Intake and Output 04/24/20 04/25/20 19:00 07:00 Intake Total 1000 ml 55 ml Balance 1000 ml 55 ml Intake Oral 1000 ml IV Total 55 ml # Voids 1 Current Medications Medications (Trade) Dose Ordered Sig/Jesus Route PRN Reason Start Time Stop Time Status Last Admin Dose Admin Acetaminophen/ Hydrocodone Bitart ([place] 5/325) 1 tab EVERY 8 HOURS ORAL 04/25/20 14:00 04/30/20 23:14 UNV Apixaban (Eliquis) 2.5 mg BID ORAL 04/24/20 09:00 07/23/20 08:59 04/25/20 08:47 Aspirin (ASA) 81 mg DAILY ORAL 04/24/20 09:15 06/08/20 08:59 04/25/20 08:48 Atorvastatin Calcium (Lipitor) 10 mg BEDTIME ORAL 04/24/20:00 07/23/20 20:59 04/24/20 21:09 Ceftriaxone Sodium 2 gm/ Dextrose 55 ml @ 110 mls/hr Q24H IVPB 04/23/20 21:00 04/30/20 20:59 04/24/20 21:09 Chlorhexidine Gluconate (Cira-Hex 2%) 1 applic DAILY@2000 TOPIC 04/23/20 20:00 07/22/20 19:59 04/24/20 21:09 Docusate Sodium (Colace) 100 mg TID ORAL 04/24/20 09:00 05/24/20 08:59 04/25/20 08:46 Folic Acid (Folate) 1 mg DAILY ORAL 04/26/20 09:00 05/26/20 08:59 UNV Hydralazine HCl (Apresoline) 25 mg EVERY 4 HOURS PRN ORAL For blood pressure over 160 sy 04/25/20 10:45 07/22/20 21:59 UNV Hydromorphone HCl (Dilaudid) 0.5 mg Q4H PRN SUBQ breakthrough pain 04/25/20 11:00 05/01/20 14:21 UNV Ondansetron HCl (Zofran) 4 mg Q6H PRN IVP Nausea & Vomiting 04/23/20 23:15 05/23/20 23:14 04/25/20 08:46 Pantoprazole (Protonix) 40 mg EVERY 12 HOURS ORAL 04/24/20 09:00 05/24/20 08:59 04/25/20 08:46 Sevelamer Carbonate (Renvela) 800 mg THREE TIMES A DAY ORAL 04/24/20 09:00 07/23/20 08:59 04/25/20 08:46 Vancomycin HCl (Vanco pharmacy to dose) 1 ea DAILY PRN MISC Per rx protocol 04/23/20 19:15 05/23/20 19:14 Laboratory Tests 04/25/20 06:10: Random Vancomycin Level 17.1 Height (Feet): 5 Height (Inches): 5.00 Weight (Pounds): 263 General Appearance: no apparent distress Cardiovascular: normal rate Respiratory/Chest: decreased breath sounds, other - Right chest permacath Extremities: other - PVD and cellulitis unchanged Manas Stephenson MD Apr 25, 2020 10:52
[2020-04-25] MEDS ORDERED: Hydromorphone 0.5mg/0.5ml inj SUBQ PRN ×4 (11:00→19:38)
--- NOTE | 2020-04-25 12:23 | NUR ---
NURSE NOTES: Contacted MD Banegas patient bp dropped to 86/40, and heart rate went over 100 and O2 sat went to 80s. SIGNAL WORKER HELPER was called and stat ABG done, awaiting results. MD Banegas ordered transfer to SDU, stat troponin, cbc, cmp and notify MD Joy and Jyothi. Addendum: 04/25/20 at 1228 by TREMAYNE QUINTANILLA RN RN MD Roe stated to notify him with ABG results and to notify MD Gaitan. Addendum: 04/25/20 at 1231 by TREMAYNE QUINTANILLA RN RN MD Stephenson was notified and stated he would put in orders for SDU staff.
--- NOTE | 2020-04-25 12:30 | NUR ---
NURSE NOTES: Nursing students came to report the vitals (BP: 79/46; HR: 70; RR: 14; O2: 67%) to primary RN. Primary RN went to assess patient and re-take vitals. Assessment and vitals were in trend with students' vitals. RN then proceeded to put patient in reverse Trendelenburg and apply oxygen at 2L/min. RN continued checking vitals, notified charge nurse and called an CHART CLERK to the paper bag machine operator. Subsequent vitals were documented appropriately.
--- NOTE | 2020-04-25 12:40 | NUR ---
NURSE NOTES: Received report from VIKAS Portillo. Pt transferred from after PREASSEMBLER PRINTED CIRCUIT BOARD due to AMS, hypotension, and desaturation. IV site in right forearm 20G SL patent and intact. Side railsx3 up for safety. Call light within easy reach. Bed in lowest position and locked. On 1LPM via N/C and sating 99%. conference interpreter applied. Sinus rhythm noted. VSS. Will call Dr. Roe for ABG results.
--- NOTE | 2020-04-25 12:50 | Infectious Diseases Prog Note ---
Assessment/Plan Assessment: RESEARCHER 04/25- due to hypotension and desaturation -hypoxic on ABG Pulmonary edema vs PNA- r/o COVID19 -04/25 CXR: Perihilar opacities may represent pulmonary edema versus infectious/inflammatory process. Elevated trop L foot/ankle wound- probable OM -xray L foot/ankle: No acute findings in the left foot. 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 s/p PPM asthma ESRD on HD (MWF) Plan: -Continue IV Vancomycin #3 -Switch Ceftriaxone #3 to Cefepime -04/23 SP Cefepime x1 -f/u cx -Monitor CBC/CMP, temperatures -wound care per hospital protocol -Podiatry eval- if debridement, please obtain cultures -bone scan L Foot and ankle to eval for OM -STAT CXR -Bcx x2 -COVID19 isolation and testing Thank you for consulting [facility]. Will continue to follow along . Discussed with RN and Dr Banegas. Subjective Allergies: Coded Allergies: PENICILLINS (Verified Allergy, Unknown, 04/23/20) Tolerated Cefepime 04/23/20 afebrile no leukocytosis RESEARCHER on 4 E for BP down to 86/40 and HR >100, Sat < 80s.; now transferred to SDU Objective Last 24 Hour Vital Signs Date Time Temp Pulse Resp B/P (MAP) Pulse Ox O2 Delivery O2 Flow Rate FiO2 04/25/20 08:00 98.5 71 20 100/60 (73) 96 04/25/20 06:00 90/61 04/25/20 04:00 98.7 67 19 90/61 (71) 94 04/25/20 00:00 98.0 76 19 137/88 (104) 95 04/24/20 22:42 104/72 04/24/20 21:40 97.5 04/24/20 21:00 Room Air 04/24/20 20:00 98.6 75 19 129/74 (92) 95 04/24/20 16:00 97.5 69 18 112/68 (83) 96 04/24/20 14:00 103/62 04/24/20 13:12 103/65 Height (Feet): 5 Height (Inches): 5.00 Weight (Pounds): 263 Microbiology Date/Time Source Procedure Growth Status 04/23/20 18:40 Blood Blood Culture - Preliminary NO GROWTH AFTER 24 HOURS Resulted 04/23/20 18:30 Blood Blood Culture - Preliminary NO GROWTH AFTER 24 HOURS Resulted Laboratory Tests Test 04/25/20 06:10 04/25/20 12:07 White Blood Count Pending Red Blood Count Pending Hemoglobin Pending Hematocrit Pending Mean Corpuscular Volume Pending Mean Corpuscular Hemoglobin Pending Mean Corpuscular Hemoglobin Concent Pending Red Cell Distribution Width Pending Platelet Count Pending Mean Platelet Volume Pending Neutrophils (%) (Auto) Pending Lymphocytes (%) (Auto) Pending Monocytes (%) (Auto) Pending Eosinophils (%) (Auto) Pending Basophils (%) (Auto) Pending Sodium Level Pending Potassium Level Pending Chloride Level Pending Carbon Dioxide Level Pending Blood Urea Nitrogen Pending Creatinine Pending Estimat Glomerular Filtration Rate Pending Glucose Level Pending Calcium Level Pending Total Bilirubin Pending Aspartate Amino Transf (AST/SGOT) Pending Alanine Aminotransferase (ALT/SGPT) Pending Alkaline Phosphatase Pending Troponin I Pending Total Protein Pending Albumin Pending Globulin Pending Random Vancomycin Level 17.1 ug/mL Arterial Blood pH 7.318 (7.350-7.450) Arterial Blood Partial Pressure CO2 51.3 mmHg (35.0-45.0) H Arterial Blood Partial Pressure O2 70.3 mmHg (75.0-100.0) L Arterial Blood HCO3 25.7 mmol/L (22.0-26.0) Arterial Blood Oxygen Saturation 91.7 % (95-100) L Arterial Blood Base Excess -0.8 (-2-2) Ari Test Positive Current Medications Medications (Trade) Dose Ordered Sig/Jeuss Route PRN Reason Start Time Stop Time Status Last Admin Dose Admin Acetaminophen/ Hydrocodone Bitart ([place] 5/325) 1 tab EVERY 8 HOURS ORAL 04/25/20 14:00 04/30/20 23:14 Apixaban (Eliquis) 2.5 mg BID ORAL 04/24/20 09:00 07/23/20 08:59 04/25/20 08:47 Aspirin (ASA) 81 mg DAILY ORAL 04/24/20 09:15 06/08/20 08:59 04/25/20 08:48 Atorvastatin Calcium (Lipitor) 10 mg BEDTIME ORAL 04/24/20 21:00 07/23/20 20:59 04/24/20 21:09 Ceftriaxone Sodium 2 gm/ Dextrose 55 ml @ 110 mls/hr Q24H IVPB 04/23/20 21:00 04/30/20 20:59 04/24/20 21:09 Chlorhexidine Gluconate (Cira-Hex 2%) 1 applic DAILY@2000 TOPIC 04/23/20 20:00 07/22/20 19:59 04/24/20 21:09 Docusate Sodium (Colace) 100 mg TID ORAL 04/24/20 09:00 05/24/20 08:59 04/25/20 08:46 Folic Acid (Folate) 1 mg DAILY ORAL 04/26/20 09:00 05/26/20 08:59 Hydralazine HCl (Apresoline) 25 mg Q4H PRN ORAL For blood pressure over 160 sy 04/25/20 10:45 07/24/20 10:44 Hydromorphone HCl (Dilaudid) 0.5 mg Q4H PRN SUBQ breakthrough pain 04/25/20 11:00 05/01/20 14:21 Ondansetron HCl (Zofran) 4 mg Q6H PRN IVP Nausea & Vomiting 04/23/20 23:15 05/23/20 23:14 04/25/20 08:46 Pantoprazole (Protonix) 40 mg EVERY 12 HOURS ORAL 04/24/20 09:00 05/24/20 08:59 04/25/20 08:46 Sevelamer Carbonate (Renvela) 800 mg THREE TIMES A DAY ORAL 04/24/20 09:00 07/23/20 08:59 04/25/20 08:46 Vancomycin HCl (Vanco pharmacy to dose) 1 ea DAILY PRN MISC Per rx protocol 04/23/20 19:15 05/23/20 19:14 Kathia Lei M.D. Apr 25, 2020 12:50
--- NOTE | 2020-04-25 12:50 | NUR ---
TRANSFER TO FLOOR: Patient transferred to SDU per Nursing Coding Tech and Primary MD. Report given to VIKAS Og. Belongings are with patient. Patient's daughter, Heaven Herr notified.
--- NOTE | 2020-04-25 13:00 | NUR ---
NURSE NOTES: Dr. Roe called back and ABG results reviewed with . O2 1LPM via N/C will be continued to maintain O2 sat.
--- NOTE | 2020-04-25 13:05 | Diagnostic Imaging Report ---
EXAM: XR Chest, 1 View CLINICAL HISTORY: CP TECHNIQUE: Frontal view of the chest. COMPARISON: Chest radiograph on 04/23/2020 FINDINGS: Hardware: Stable right dual-lumen central venous catheter. Lungs/pleura: Perihilar opacities. No pleural effusion or pneumothorax. Heart/mediastinum: Stable mild enlargement of the cardiomediastinal silhouette. Left-sided pacemaker. Soft tissues: Unremarkable. Bones: No acute fracture. Upper abdomen: Normal. IMPRESSION: Perihilar opacities may represent pulmonary edema versus infectious/inflammatory process.
[2020-04-25 13:07] LABS: BASOPHILS % (AUTO) 1.1 % (0.0-2.0); EOSINOPHILS % (AUTO) 1.4 % (0.0-3.0); HEMATOCRIT 33.7 % (37.0-47.0); HEMOGLOBIN 10.2 G/DL (12.0-16.0); LYMPHOCYTES % (AUTO) 9.1 % (20.0-45.0); MEAN CORPUSCULAR VOLUME 97 FL (80-99); MONOCYTES % (AUTO) 7.3 % (1.0-10.0); NEUTROPHILS % (AUTO) 81.2 % (45.0-75.0); PLATELET COUNT 106 K/UL (150-450); RED BLOOD COUNT 3.47 M/UL (4.20-5.40); RED CELL DISTRIBUTION WIDTH 16.4 % (11.6-14.8)
[2020-04-25 13:37] LABS: ALANINE AMINOTRANSFERASE 22 U/L (12-78); ALBUMIN 2.8 G/DL (3.4-5.0); ALBUMIN/GLOBULIN RATIO 0.8 (1.0-2.7); ALKALINE PHOSPHATASE 64 U/L (46-116); ANION GAP 11 mmol/L (5-15); ASPARTATE AMINO TRANSFERASE 24 U/L (15-37); BILIRUBIN,TOTAL 0.3 MG/DL (0.2-1.0); BLOOD UREA NITROGEN 65 mg/dL (7-18); CALCIUM 8.9 MG/DL (8.5-10.1); CARBON DIOXIDE 27 MMOL/L (21-32); CHLORIDE 101 MMOL/L (98-107); CREATININE 8.3 MG/DL (0.55-1.30); SODIUM 139 MMOL/L (136-145)
[2020-04-25 13:50] LABS: POTASSIUM 6.1 MMOL/L (3.5-5.1)
[2020-04-25] MEDS ORDERED: HYDROcodone/Acetamin 5/325 tab ORAL SCH ×2 (14:00→22:00)
--- NOTE | 2020-04-25 15:10 | NUR ---
NURSE NOTES: Dr. Stephenson paged for K+: 6.3. Dr. Stephenson ordered STAT hemodialysis today.
--- NOTE | 2020-04-25 15:15 | NUR ---
NURSE NOTES: [facility] called for STAT hemodialysis. Spoke to Valentin at [facility].
--- NOTE | 2020-04-25 15:15 | Consultation ---
DATE OF CONSULTATION: 04/24/2020 CONSULTING PHYSICIAN: REASON FOR CONSULTATION: Ulceration to left heel. HISTORY OF PRESENT ILLNESS: This is a 69-year-old diabetic patient, who was admitted to [facility] with ulceration to the left heel. The patient states that she has not really been treated for the ulceration and she is concerned. She denies fever, chills, nausea, or vomiting. PAST MEDICAL HISTORY: Per Dr. Banegas, diabetes, COPD, ESRD, hypertension, PAD. PODIATRY EXAMINATION: VASCULAR: Dorsalis pedis, posterior tibial artery are nonpalpable. Foot is cool to touch. Minimal edema is noted to the left leg compared to the right. NEUROLOGICAL: Sharp and dull proprioception. Protective threshold is slightly diminished consistent with peripheral neuropathy. MUSCULOSKELETAL: There are contracted digits at the PIPJ from 2 through 5 bilateral consistent with hammertoe deformity. Muscle strength is within normal limits. Range of motion is slightly decreased. The patient is bedbound at this time. DERMATOLOGICAL: Attention was directed to the left heel where an ulceration was identified through the subcutaneous tissue. Base of the ulceration is fibrotic and granulating periwound area. There is no drainage, discharge, or purulent matter. There is no cellulitis, probing, or undermining. There is no malodor. ASSESSMENT AND PLAN: Diabetic patient with left heel ulceration. Order was written for application of Santyl every day, order was also written for Vascular consultation. The patient will be followed. Benjamín Hoffman D.P.M DR: NICO JOB#: [id number] CC:
--- NOTE | 2020-04-25 15:18 | Cardiology Progress Note ---
Assessment/Plan Assessment/Plan The patient is seen and examined, full consult note is dictated. Objective Last 24 Hour Vital Signs Date Time Temp Pulse Resp B/P (MAP) Pulse Ox O2 Delivery O2 Flow Rate FiO2 04/25/20 13:45 70 14 67 04/25/20 13:00 Nasal Cannula 1.0 04/25/20 12:40 99.4 80 20 120/59 (79) 99 04/25/20 12:32 69 04/25/20 12:15 73 114/59 (77) 04/25/20 11:50 60/40 (47) 04/25/20 11:45 130 85/31 (49) 04/25/20 11:30 98.8 70 14 79/46 (57) 67 04/25/20 09:00 Room Air 04/25/20 08:00 98.5 71 20 100/60 (73) 96 04/25/20 06:00 90/61 04/25/20 04:00 98.7 67 19 90/61 (71) 94 04/25/20 00:00 98.0 76 19 137/88 (104) 95 04/24/20 22:42 104/72 04/24/20 21:40 97.5 04/24/20 21:00 Room Air 04/24/20 20:00 98.6 75 19 129/74 (92) 95 04/24/20 16:00 97.5 69 18 112/68 (83) 96 Intake and Output 04/24/20 04/25/20 19:00 07:00 Intake Total 1000 ml 55 ml Balance 1000 ml 55 ml Intake Oral 1000 ml IV Total 55 ml # Voids 1 Laboratory Tests Test 04/25/20 06:10 04/25/20 12:07 04/25/20 12:52 04/25/20 12:55 Random Vancomycin Level 17.1 ug/mL Arterial Blood pH 7.318 (7.350-7.450) Arterial Blood Partial Pressure CO2 51.3 mmHg (35.0-45.0) H Arterial Blood Partial Pressure O2 70.3 mmHg (75.0-100.0) L Arterial Blood HCO3 25.7 mmol/L (22.0-26.0) Arterial Blood Oxygen Saturation 91.7 % (95-100) L Arterial Blood Base Excess -0.8 (-2-2) Ari Test Positive POC Whole Blood Glucose 169 MG/DL (74-106) H White Blood Count 7.0 K/UL (4.8-10.8) Red Blood Count 3.47 M/UL (4.20-5.40) L Hemoglobin 10.2 G/DL (12.0-16.0) L Hematocrit 33.7 % (37.0-47.0) L Mean Corpuscular Volume 97 FL (80-99) Mean Corpuscular Hemoglobin 29.5 PG (27.0-31.0) Mean Corpuscular Hemoglobin Concent 30.4 G/DL (32.0-36.0) L Red Cell Distribution Width 16.4 % (11.6-14.8) H Platelet Count 106 K/UL (150-450) L Mean Platelet Volume 9.1 FL (6.5-10.1) Neutrophils (%) (Auto) 81.2 % (45.0-75.0) H Lymphocytes (%) (Auto) 9.1 % (20.0-45.0) L Monocytes (%) (Auto) 7.3 % (1.0-10.0) Eosinophils (%) (Auto) 1.4 % (0.0-3.0) Basophils (%) (Auto) 1.1 % (0.0-2.0) Sodium Level 139 MMOL/L (136-145) Potassium Level 6.1 MMOL/L (3.5-5.1) *H Chloride Level 101 MMOL/L (98-107) Carbon Dioxide Level 27 MMOL/L (21-32) Anion Gap 11 mmol/L (5-15) Blood Urea Nitrogen 65 mg/dL (7-18) H Creatinine 8.3 MG/DL (0.55-1.30) H Estimat Glomerular Filtration Rate 5.7 mL/min (>60) Glucose Level 188 MG/DL (74-106) H Calcium Level 8.9 MG/DL (8.5-10.1) Total Bilirubin 0.3 MG/DL (0.2-1.0) Aspartate Amino Transf (AST/SGOT) 24 U/L (15-37) Alanine Aminotransferase (ALT/SGPT) 22 U/L (12-78) Alkaline Phosphatase 64 U/L (46-116) Troponin I 0.059 ng/mL (0.000-0.056) Total Protein 6.2 G/DL (6.4-8.2) L Albumin 2.8 G/DL (3.4-5.0) L Globulin 3.4 g/dL Albumin/Globulin Ratio 0.8 (1.0-2.7) L Test 04/25/20 14:20 Potassium Level 6.3 MMOL/L (3.5-5.1) *H Microbiology Date/Time Source Procedure Growth Status 04/23/20 18:40 Blood Blood Culture - Preliminary NO GROWTH AFTER 24 HOURS Resulted 04/23/20 18:30 Blood Blood Culture - Preliminary NO GROWTH AFTER 24 HOURS Resulted Triston Joy MD Apr 25, 2020 15:18
--- NOTE | 2020-04-25 15:26 | NUR ---
NURSE NOTES: Dr. Banegas called and ordered IV Dilaudid to be changed from Q4 PRN to Q6 PRN and D/C morphine. Order read back and carried out.
--- NOTE | 2020-04-25 15:51 | NUR ---
NURSE NOTES: Patient received from Min RN. Patient stable at this time. RR even and unlabored on Venturi. No s/sx of distress. Cisneros draining well to gravity. VIKAS Jay performing stat EKG. Side rails upx2, devi light within reach, bed low and locked. Will continue to monitor.
--- NOTE | 2020-04-25 15:51 | NUR ---
HAND-OFF: Report given to VIKAS Rangel. Pt remains stable.
--- NOTE | 2020-04-25 15:54 | NUR ---
NURSE NOTES: Dr. Joy given stat EKG result. Lab called regarding stat troponin. Patient is a hard stick. Pictures of wounds taken.
--- NOTE | 2020-04-25 16:50 | NUR ---
NURSE NOTES: Dr. Stephenson called and informed of patient's BP of 83/39 prior to dialysis. Patient AOx1 at this time and is not complaining of any symptoms. Orders received for Albumin x1 but may give 2nd dose if needed. Will be given now by dialysis nurse.
--- NOTE | 2020-04-25 17:40 | NUR ---
NURSE NOTES: Dr. Stephenson informed that BP dropped more to 76/37 after first albumin. Dialysis nurse at bedside and spoke with MD regarding dialysis orders for sodium. Order received for ICU transfer. Nursing supervisor print line informed of order and latest BP of 125/69. Addendum: 04/25/20 at 1746 by GRAZYNA MORALES RN Second albumin given at 1725 via dialysis.
[2020-04-25] MEDS ORDERED: Renvela 800mg Pkt ORAL SCH (18:00)
[2020-04-25] MEDS ORDERED: Docusate 100mg cap ORAL SCH (18:00)
[2020-04-25] MEDS ORDERED: Eliquis 2.5mg tablet ORAL SCH (18:00)
[2020-04-25] MEDS ORDERED: Cefepime HCl 1 GM in D5W 55 ML IVPB SCH (18:00)
--- NOTE | 2020-04-25 18:00 | NUR ---
NURSE NOTES: Stat troponin result given to
--- NOTE | 2020-04-25 18:10 | NUR ---
NURSE NOTES: Dialysis ongoing. Called MD to report patient remaining hypotensive for additional orders. Awaiting call back. Addendum: 04/25/20 at 1811 by GRAZYNA MORALES RN Latest BP 83/27.
--- NOTE | 2020-04-25 18:16 | NUR ---
NURSE NOTES: Dr. Stephenson called again and reported BP of 68/27. Order received to stop dialysis, transfer to ICU and start pressors. Nursing wastewater treatment supervisor aware.
--- NOTE | 2020-04-25 19:33 | NUR ---
HAND-OFF: Report given to Manuel Fernando RN. Patient AOx1 asymptomatic with latest be 97/52 HR 65. All belongings with patient including wheelchair, cell phone and dentures. Patient stable. Plan of care endorsed.
--- NOTE | 2020-04-25 19:35 | NUR ---
NURSE NOTES: Pt transferred from [facility]. Given report from VIKAS Kirkpatrick. Pt is resting on the bed and awake and confused. On nuclear monitoring technician with SR. Noted BP 140/100mmHg. Pt has pain on Lt. leg when moving but when rest no c/o pain. Iv site intact and no sign of infiltration. Pt has Lt chest pace maker. Pt has multiple wound and picture was taken. Cleaned Pt and applied lotion and cream. noted bruise on both arms and slight swelling noted. Changed position. On O2 3L via nasal cannula and SaO2 99% noted. No fever. Pt has upper lower denture, glasses, wheel chair and i phone and remain the bedside. Pt has Rt. subclavian Perma cath and dressing is intact. Applied external female cath. Placed fall precaution. Will continue to care plan.
[2020-04-25] MEDS ORDERED: Dyna-Hex 2% Top Sol 2oz TOPIC SCH (20:00)
[2020-04-25] MEDS: Dyna-Hex 2% Top Sol 2oz TOPIC SCH (20:15)
--- NOTE | 2020-04-25 20:15 | Consultation ---
DATE OF CONSULTATION: 04/25/2020 CARDIOLOGY CONSULTATION REFERRING PHYSICIAN: Danie Banegas M.D. REASON FOR CONSULTATION: Management of hypotension and tachycardia. HISTORY OF PRESENT ILLNESS: The patient is a very unfortunate 69-year-old female who presents to the hospital on 04/23/2020 with left foot ulceration that caused pain, tenderness, and edema. The patient is nonambulatory due to a prior history of CVA and left hemiparesis. The patient's medical history is also significant for end-stage renal disease, diabetes mellitus, hypertension, and sick sinus syndrome, status post dual-chamber pacemaker implantation. The patient apparently had an episode of hypotension and became tachycardic while she was on Med/Surg unit. Her blood pressure was as low as 60/40 mmHg and heart rate was as high as 130 beats per minute. The patient was then transferred to [facility] for further evaluation and management of possible septic shock. Chest x-ray repeat showed pulmonary edema. Blood gas was also done this morning, which showed hypoxic hypercarbic respiratory failure with O2 saturation at 91.7% and pH of 7.3, consistent with acute respiratory acidosis. Laboratory findings showed hyperkalemia with potassium level of 6.3. Troponin I level also jumped from an earlier level of 0.029 to 0.059. Cardiology consultation is made at request of Dr. Banegas for management of hypotension and congestive heart failure. According to the records, the patient has a history of chronic diastolic heart failure with left ventricular systolic function measured at 55%. There is also a history of paroxysmal atrial fibrillation, for which the patient was started on amiodarone and continues to be on it. In addition, the patient takes Eliquis for primary preventive measures in regard to thromboembolic events. PAST MEDICAL HISTORY: 1. Diabetes mellitus. 2. End-stage renal disease. 3. Chronic HFPEF with LVEF approximately 55%. 4. CVA with left hemiparesis. 5. Diabetes mellitus. 6. Dual-chamber pacemaker implantation and previously atrial paced ventricular sensed. 7. History of asthma/COPD. ALLERGIES: Penicillin. PAST SURGICAL HISTORY: Dual-chamber pacemaker implantation, PermCath catheter placement. MEDICATIONS: List of medications includes: 1. Acetaminophen 600 mg q.4h. p.r.n. pain. 2. Albuterol. 3. Pro-Stat liquid 30 mL twice daily. 4. Amiodarone 200 mg daily. 5. Eliquis 2.5 mg twice daily. 6. Aspirin 81 mg daily. 7. Atorvastatin 10 mg p.o. at bedtime. 8. Bisacodyl. 9. Vitamin D 400 international units 1 tablet daily. 10. Artificial Tears. 11. Colace 100 mg twice daily. 12. Ferrous sulfate 325 mg daily. 13. Gabapentin 100 mg q.12h. 14. Hydralazine 25 mg q.8h. 15. [place] 5/325 mg 1 tablet q.4h. p.r.n. pain. 16. Fleet Enema. 17. Renvela 800 mg 3 times a day. 18. Vitamin B complex 1 capsule a day. 19. Nephro-Gildardo 1 tablet daily. REVIEW OF SYSTEMS: HEENT: Denies any headache, diplopia, blurred vision. CONSTITUTIONAL: Positive for fatigue and generalized weakness. No fever or chills. CARDIOVASCULAR: Denies any chest pain. Positive for shortness of breath. Denies any PND, orthopnea, or leg swelling. PULMONARY: Positive for cough and shortness of breath. No hemoptysis. GASTROINTESTINAL: Denies any nausea, vomiting, diarrhea, constipation, abdominal pain, or GI bleed. GENITOURINARY: On hemodialysis on Mondays, Wednesdays, and Fridays. PermCath in the right chest. NEUROLOGIC: Diminished motor function on the left side. SOCIAL HISTORY: Denies any tobacco, alcohol, or illicit drug use. PHYSICAL EXAMINATION: VITAL SIGNS: Blood pressure at the time of transfer to this unit was 85/31 mmHg with a heart rate of 130. Temperature was 98.8 degrees Fahrenheit and O2 saturation was 67% on room air. Latest vital signs with temperature of 99.4 degrees Fahrenheit, pulse of 80, respiration rate of 20, blood pressure of 120/59, and pulse ox of 99%. GENERAL: The patient is a very unfortunate 69-year-old female, chronically ill, obese. HEENT: Atraumatic, normocephalic. Anicteric. Pupils are equal, round, and reactive to light and accommodation. Extraocular muscles intact. NECK: JVP cannot be assessed. No carotid bruit. Carotid upstroke is 2+ bilaterally. CARDIOVASCULAR: Normal S1, S2. There is 2/6 mid systolic murmur at the left sternal border. PMI is at fourth intercostal space at the midclavicular line. LUNGS: Bibasilar crackles. ABDOMEN: Soft, nontender, and nondistended. No hepatosplenomegaly. Positive bowel sounds. EXTREMITIES: Diminished dorsalis pedis pulses of 1+. There is diminished motor function on the left lower extremity and upper extremity. There is a pacemaker generator pocket in the left pectoral area. There is decubitus ulceration, 2 cm in diameter with necrotic portion, associated erythema in the sacral zone and also a left foot wound and ulceration. LABORATORY FINDINGS: Chest x-ray showed moderate to severe pulmonary edema bilaterally with cardiomegaly and presence of a PermCath in the right chest and pacemaker generator in 2 leads on the left side. WBC was 7.0, hemoglobin 10.2, hematocrit 33.7, and platelet count is 106. Chemistry showed sodium of 139, potassium of 6.1, repeat of 6.3, chloride 101, bicarbonate 27, BUN of 65, and creatinine of 8.3. Glucose 188. Calcium was 8.9. Troponin I 0.05, then 0.029 and then 0.059. Lipid panel, triglycerides 54, total cholesterol of 163, LDL of 65, and HDL of 71. ProBNP was 3427. A 12-lead electrocardiogram is not available in the chart. ASSESSMENT AND PLAN: The patient is a very unfortunate 69-year-old female seen in cardiology consultation. 1. Hypotension, most likely due to left foot osteomyelitis, possibility of sepsis in view of high CRP, although white count is within normal limits, rule out COVID-19 infection. Her blood pressure responded well to a bolus of NS. I would like to obtain a 2D echocardiogram for assessment of LV systolic and diastolic function. We will obtain a 12-lead electrocardiogram to assess ischemia. 2. Slight elevation of troponin I level. This could be an acute heart failure in view of emergence of bilateral pulmonary edema on chest x-ray comparing with a chest x-ray on admission. A 2D echocardiography can shed light on this in view of evaluation of diastolic data. Other possibility could be end-stage renal disease or type 2 [id number] myocardial infarction. Continue with serial troponin I levels. The patient will be placed on aspirin and statins. No indication for using heparin drip as the patient has been on apixaban . 3. Paroxysmal atrial fibrillation. Continue amiodarone and apixaban. 4. History of CVA with left hemiparesis. 5. History of heart failure, preserved EF. I would like to thank Dr. Banegas for the courtesy of this consultation. Triston Joy M.D. DR: SOLIS JOB#: [id number] CC:
[2020-04-25] MEDS: Atorvastatin 20mg tab ORAL SCH (20:52)
[2020-04-25] MEDS ORDERED: Atorvastatin 20mg tab ORAL SCH (21:00)
[2020-04-25] MEDS ORDERED: cefTRIAXone 2 GM in D5W 55 ML IVPB SCH (21:00)
[2020-04-25] MEDS: HYDROcodone/Acetamin 5/325 tab ORAL SCH (21:31)
--- NOTE | 2020-04-25 22:00 | NUR ---
NURSE NOTES: Pt is sleeping on the bed and no sign of acute distress noted. BP is stable. BP checked 93/56mmHg, HR: 61's with SR. SaO2 100% with O2 3L via nasal cannula. Placed fall precaution. Will continue to monitor any change of condition.
--- NOTE | 2020-04-25 23:45 | General Progress Note ---
Assessment/Plan Assessment/Plan: S: I have pain O: seems weak , controlled pain . seen and examined in ICU PHYSICAL EXAMINATION: HEAD AND NECK: Atraumatic and normocephalic. CHEST: Clear to auscultation. HEART: S1, S2. Regular rate and rhythm. Bradycardic. MUSCULOSKELETAL: paraparesis. stage 3 decubitus wound in calcaneal region. NEUROLOGIC: The patient is awake and alert x 2. LABORATORY AND DIAGNOSTIC DATA: Labs dated 04/25/20 reviewed ASSESSMENT: 1. Acute Hypoxemic respiratyory failure, s/p rapid response assessment 2. HyperKalemia 2. Decubitus wound, enlarging and infected. 3. End-stage renal disease, on temporary PermCath hemodialysis access. 2. Paroxysmal atrial fibrillation, rate is stable. 3. Diabetes type 2. 4. Hypertension. 5. Hyperlipidemia. 6. CVA-history. 7. CHF-Diastolic type 8. Dementia. 8. Gastrointestinal and deep vein thrombosis prophylaxes. 9. Pain management 10. iron deficiency anemia Plan: Transfer to ICU STAT HD per Nephrology STAT labs and CXR ordered Empirical abx initiated Notes from [id number] care reviewed D/w Dr Fam, Dr Saavedra c/w Batsheva PRN breakthrough Consulted Hem Onch Subjective Allergies: Coded Allergies: PENICILLINS (Verified Allergy, Unknown, 04/23/20) Tolerated Cefepime 04/23/20 Objective Last 24 Hour Vital Signs Date Time Temp Pulse Resp B/P (MAP) Pulse Ox O2 Delivery O2 Flow Rate FiO2 04/25/20 20:00 64 04/25/20 17:36 63 125/69 (87) 04/25/20 17:22 61 76/37 (50) 04/25/20 17:12 60 88/40 (56) 04/25/20 17:07 60 92/39 (56) 04/25/20 16:49 60 83/39 (54) 04/25/20 16:00 60 04/25/20 16:00 Nasal Cannula 1.0 04/25/20 13:45 70 14 67 04/25/20 13:00 Nasal Cannula 1.0 04/25/20 12:40 99.4 80 20 120/59 (79) 99 04/25/20 12:32 69 04/25/20 12:15 73 114/59 (77) 04/25/20 11:50 60/40 (47) 04/25/20 11:45 130 85/31 (49) 04/25/20 11:30 98.8 70 14 79/46 (57) 67 04/25/20 09:00 Room Air 04/25/20 08:00 98.5 71 20 100/60 (73) 96 04/25/20 06:00 90/61 04/25/20 04:00 98.7 67 19 90/61 (71) 94 04/25/20 00:00 98.0 76 19 137/88 (104) 95 Intake and Output 04/24/20 04/25/20 19:00 07:00 Intake Total 1000 ml 55 ml Balance 1000 ml 55 ml Intake Oral 1000 ml IV Total 55 ml # Voids 1 Laboratory Tests 04/25/20 06:10: Random Vancomycin Level 17.1 04/25/20 12:07: Arterial Blood pH 7.318L, Arterial Blood Partial Pressure CO2 51.3H, Arterial Blood Partial Pressure O2 70.3L, Arterial Blood HCO3 25.7, Arterial Blood Oxygen Saturation 91.7L, Arterial Blood Base Excess -0.8, Ari Test Positive 04/25/20 12:52: POC Whole Blood Glucose 169H 04/25/20 12:55: White Blood Count 7.0, Red Blood Count 3.47L, Hemoglobin 10.2L, Hematocrit 33.7L , Mean Corpuscular Volume 97, Mean Corpuscular Hemoglobin 29.5, Mean Corpuscular Hemoglobin Concent 30.4L, Red Cell Distribution Width 16.4H, Platelet Count 106L, Mean Platelet Volume 9.1, Neutrophils (%) (Auto) 81.2H, Lymphocytes (%) (Auto) 9.1L, Monocytes (%) (Auto) 7.3, Eosinophils (%) (Auto) 1.4, Basophils (%) (Auto) 1.1, Sodium Level 139, Potassium Level 6.1*H, Chloride Level 101, Carbon Dioxide Level 27, Anion Gap 11, Blood Urea Nitrogen 65H, Creatinine 8.3H, Estimat Glomerular Filtration Rate 5.7, Glucose Level 188H , Calcium Level 8.9, Total Bilirubin 0.3, Aspartate Amino Transf (AST/SGOT) 24, Alanine Aminotransferase (ALT/SGPT) 22, Alkaline Phosphatase 64, Troponin I 0.059H, Total Protein 6.2L, Albumin 2.8L, Globulin 3.4, Albumin/Globulin Ratio 0.8L 04/25/20 14:20: Potassium Level 6.3*H 04/25/20 17:00: Troponin I 0.084H Height (Feet): 5 Height (Inches): 5.00 Weight (Pounds): 263 Danie Banegas MD Apr 25, 2020 23:45
[2020-04-26] VITALS (19 sets, daily range): BP systolic 53–131; BP diastolic 46–74
[2020-04-26] MEDS ORDERED: Hydrocortisone 100mg Inj IV PRN
[2020-04-26] MEDS ORDERED: NS 250 ML IVPB PRN
--- NOTE | 2020-04-26 00:04 | NUR ---
NURSE NOTES: Pt is sleeping on the bed and no sign of acute distress noted. Bp is stable. Dr. Banegas visited and assessed Pt and give new order. Carried out. Will continue to monitor any change of condition.
[2020-04-26] MEDS ORDERED: Insulin Human Regular 100units/ml 3ml IV ONE (00:10)
[2020-04-26] MEDS ORDERED: Calcium Gluconate 1gm/50ml 50 ML IVPB ONE (00:10)
--- NOTE | 2020-04-26 02:00 | NUR ---
NURSE NOTES: Pt is sleeping on the bed and no sign of acute distress noted. BP is stable. Changed position. Will continue to monitor any change of condition.
--- NOTE | 2020-04-26 04:00 | NUR ---
NURSE NOTES: Bed bath was done. Cleaned Pt and applied lotion and cream. Collected blood sample. BP is stable. BP checked 114/74mmHg and on tube operator with A-pacing. SaO2 99-100% with O2 3L via nasal cannula. Changed position. Will continue monitor any change of condition.
--- NOTE | 2020-04-26 06:00 | NUR ---
NURSE NOTES: Pt is sleeping on the bed and no sign of acute distress noted. BP is stable and on monitoring manager with A-pacing. BP is stable. Changed position. Will continue to monitor any change of condition.
[2020-04-26] MEDS: HYDROcodone/Acetamin 5/325 tab ORAL SCH (06:02)
[2020-04-26 06:27] LABS: HEMATOCRIT 31.7 % (37.0-47.0); HEMOGLOBIN 9.9 G/DL (12.0-16.0); MEAN CORPUSCULAR VOLUME 96 FL (80-99); PLATELET COUNT 92 K/UL (150-450); RED CELL DISTRIBUTION WIDTH 16.1 % (11.6-14.8); WHITE BLOOD COUNT 5.6 K/UL (4.8-10.8)
--- NOTE | 2020-04-26 07:35 | NUR ---
HAND-OFF: Report given to Sean Hastings. Pt is resting on the bed and no sign of acute distress noted.
[2020-04-26 07:41] LABS: ALANINE AMINOTRANSFERASE 24 U/L (12-78); ALBUMIN 3.3 G/DL (3.4-5.0); ALBUMIN/GLOBULIN RATIO 1.1 (1.0-2.7); ALKALINE PHOSPHATASE 56 U/L (46-116); ANION GAP 14 mmol/L (5-15); ASPARTATE AMINO TRANSFERASE 21 U/L (15-37); BILIRUBIN,TOTAL 0.3 MG/DL (0.2-1.0); BLOOD UREA NITROGEN 49 mg/dL (7-18); CALCIUM 9.3 MG/DL (8.5-10.1); CARBON DIOXIDE 25 MMOL/L (21-32); CHLORIDE 101 MMOL/L (98-107); CREATININE 6.3 MG/DL (0.55-1.30); SODIUM 140 MMOL/L (136-145)
--- NOTE | 2020-04-26 08:00 | NUR ---
NURSE NOTES: RECEIVED REPORT FROM Dolly ORTIZ PT IN BED. RESTING, RESPONSIVE TO NAME. A/OX3. CALM, PUPILS 3MM. LT SIDE WEAKNESS. VS ON MONITOR 60, 86/ 45, 100%, 8. ORAL TEMP 97.7. NO C/O OF PAIN OR SOB. 3L NC. WHEEZE AUDIBLE. NO SECRETIONS. ABDOMEN ROUND, NON TENDER. NO BM AT THIS TIME. DIET CCHO MED. EATS WITH ASSISTANCE. PURE WICK IN PLACE, PT ANURIC. BILATERAL RADIAL AND PEDAL PULSES WEAK. NO JVD, CAP REFILL<3SEC. DROPLET PRECAUTIONS, PUI COVID-19, CONTACT VRE RECTUM. CALL LIGHT IN REACH. BED ALARM ON, LOCKED AND IN LOW POSITION. SIDE RAILS X2. EDUCATED PT O N PLAN OF CARE, MEDICATION SIDE EFFECTS. WILL CONTINUE TO IMPLEMENT PLAN OF CARE.
--- NOTE | 2020-04-26 08:02 | General Progress Note ---
Assessment/Plan Assessment/Plan: S: I am ok O: seems weak , controlled pain . seen and examined in ICU PHYSICAL EXAMINATION: HEAD AND NECK: Atraumatic and normocephalic. CHEST: Clear to auscultation. HEART: S1, S2. Regular rate and rhythm. Bradycardic. MUSCULOSKELETAL: paraparesis. stage 3 decubitus wound in calcaneal region. NEUROLOGIC: The patient is awake and alert x 2. LABORATORY AND DIAGNOSTIC DATA: Labs dated 04/26/20 reviewed ASSESSMENT: 1. Acute Hypoxemic respiratory failure, s/p rapid response assessment 2. Hypotension : ddx; adrenal insufficiency 3. HyperKalemia 2. Decubitus wound, enlarging and infected. 3. End-stage renal disease, on temporary PermCath hemodialysis access. 2. Paroxysmal atrial fibrillation, rate is stable. 3. Diabetes type 2. 4. Hypertension. 5. Hyperlipidemia. 6. CVA-history. 7. CHF-Diastolic type 8. Dementia. 8. Gastrointestinal and deep vein thrombosis prophylaxes. 9. Pain management 10. iron deficiency anemia Plan: Transfer to ICU STAT labs and CXR ordered Empirical abx initiated Notes from [id number] care reviewed Notified Dr Fam and D/w Dr Saavedra c/w Batsheva PRN breakthrough Consulte Hem onch Post Calcium/Novolog/D50 treatment with favorable response HD per nephrology check serum cortisol Subjective Allergies: Coded Allergies: PENICILLINS (Verified Allergy, Unknown, 04/23/20) Tolerated Cefepime 04/23/20 Objective Last 24 Hour Vital Signs Date Time Temp Pulse Resp B/P (MAP) Pulse Ox O2 Delivery O2 Flow Rate FiO2 04/26/20 07:00 60 12 90/47 (61) 99 04/26/20 06:00 60 12 100/47 (64) 99 04/26/20 05:00 60 12 92/50 (64) 100 04/26/20 04:00 Nasal Cannula 3.0 04/26/20 04:00 97.7 60 12 114/74 (87) 100 04/26/20 04:00 60 04/26/20 03:00 60 12 96/59 (71) 100 04/26/20 02:00 60 12 105/60 (75) 100 04/26/20 01:00 60 12 91/51 (64) 100 04/26/20 00:00 58 04/26/20 00:00 Nasal Cannula 3.0 04/26/20 00:00 97.9 60 12 90/51 (64) 100 04/25/20 23:00 60 18 96/47 (63) 100 04/25/20 22:00 61 18 93/56 (68) 100 04/25/20 21:00 65 18 100/80 (87) 100 04/25/20 20:00 64 04/25/20 20:00 Nasal Cannula 3.0 04/25/20 20:00 98.4 67 18 110/91 (97) 99 04/25/20 19:00 66 18 140/100 (113) 99 04/25/20 17:36 63 125/69 (87) 04/25/20 17:22 61 76/37 (50) 04/25/20 17:12 60 88/40 (56) 04/25/20 17:07 60 92/39 (56) 04/25/20 16:49 60 83/39 (54) 04/25/20 16:00 60 04/25/20 16:00 Nasal Cannula 1.0 04/25/20 13:45 70 14 67 04/25/20 13:00 Nasal Cannula 1.0 04/25/20 12:40 99.4 80 20 120/59 (79) 99 04/25/20 12:32 69 04/25/20 12:15 73 114/59 (77) 04/25/20 11:50 60/40 (47) 04/25/20 11:45 130 85/31 (49) 04/25/20 11:30 98.8 70 14 79/46 (57) 67 04/25/20 09:00 Room Air 04/25/20 08:00 98.5 71 20 100/60 (73) 96 Intake and Output 04/25/20 04/26/20 19:00 07:00 Intake Total 1100 ml 230 ml Balance 1100 ml 230 ml Intake Oral 0 ml 180 ml IV Total 50 ml Hemodialysis 1100 ml Laboratory Tests 04/25/20 12:07: Arterial Blood pH 7.318L, Arterial Blood Partial Pressure CO2 51.3H, Arterial Blood Partial Pressure O2 70.3L, Arterial Blood HCO3 25.7, Arterial Blood Oxygen Saturation 91.7L, Arterial Blood Base Excess -0.8, Ari Test Positive 04/25/20 12:52: POC Whole Blood Glucose 169H 04/25/20 12:55: White Blood Count 7.0, Red Blood Count 3.47L, Hemoglobin 10.2L, Hematocrit 33.7L , Mean Corpuscular Volume 97, Mean Corpuscular Hemoglobin 29.5, Mean Corpuscular Hemoglobin Concent 30.4L, Red Cell Distribution Width 16.4H, Platelet Count 106L, Mean Platelet Volume 9.1, Neutrophils (%) (Auto) 81.2H, Lymphocytes (%) (Auto) 9.1L, Monocytes (%) (Auto) 7.3, Eosinophils (%) (Auto) 1.4, Basophils (%) (Auto) 1.1, Sodium Level 139, Potassium Level 6.1*H, Chloride Level 101, Carbon Dioxide Level 27, Anion Gap 11, Blood Urea Nitrogen 65H, Creatinine 8.3H, Estimat Glomerular Filtration Rate 5.7, Glucose Level 188H , Calcium Level 8.9, Total Bilirubin 0.3, Aspartate Amino Transf (AST/SGOT) 24, Alanine Aminotransferase (ALT/SGPT) 22, Alkaline Phosphatase 64, Troponin I 0.059H, Total Protein 6.2L, Albumin 2.8L, Globulin 3.4, Albumin/Globulin Ratio 0.8L 04/25/20 14:20: Potassium Level 6.3*H 04/25/20 17:00: Troponin I 0.084H 04/26/20 04:10: White Blood Count 5.6, Red Blood Count 3.30L, Hemoglobin 9.9L, Hematocrit 31.7L , Mean Corpuscular Volume 96, Mean Corpuscular Hemoglobin 30.0, Mean Corpuscular Hemoglobin Concent 31.2L, Red Cell Distribution Width 16.1H, Platelet Count 92L, Mean Platelet Volume 9.2, Neutrophils (%) (Auto) , Lymphocytes (%) (Auto) , Monocytes (%) (Auto) , Eosinophils (%) (Auto) , Basophils (%) (Auto) , Neutrophils % (Manual) [Pending], Lymphocytes % (Manual) [Pending], Platelet Estimate [Pending], Platelet Morphology [Pending], Sodium Level 140, Potassium Level 5.0, Chloride Level 101, Carbon Dioxide Level 25, Anion Gap 14, Blood Urea Nitrogen 49H, Creatinine 6.3H, Estimat Glomerular Filtration Rate 7.9, Glucose Level 100, Calcium Level 9.3, Phosphorus Level [ Pending], Magnesium Level [Pending], Total Bilirubin 0.3, Aspartate Amino Transf (AST/SGOT) 21, Alanine Aminotransferase (ALT/SGPT) 24, Alkaline Phosphatase 56, Total Protein 6.3L, Albumin 3.3L, Globulin 3.0, Albumin/ Globulin Ratio 1.1, Cortisol AM Sample [Pending], Random Vancomycin Level 20.4 Height (Feet): 5 Height (Inches): 5.00 Weight (Pounds): 258 Danie Banegas MD Apr 26, 2020 08:02
[2020-04-26 08:11] LABS: PHOSPHORUS 4.1 MG/DL (2.5-4.9)
[2020-04-26] MEDS ORDERED: Aspirin Baby 81mg ORAL SCH (09:00)
--- NOTE | 2020-04-26 10:20 | NUR ---
NURSE NOTES: LATE ENTRY: ASSISTING PT WITH BREAKFAST. REFUSED EGGS AND TOAST. MEDICATION ADMINISTRATION COMPLETE. PT REPOSITIONED. WILL CONTINUE TO MONITOR.
--- NOTE | 2020-04-26 10:24 | Nephrology Progress Note ---
Assessment/Plan Problem List: (1) ESRD (end stage renal disease) (2) Pacemaker (3) Diabetic nephropathy (4) Cellulitis of left foot (5) Anemia in chronic kidney disease (CKD) (6) History of CVA (cerebrovascular accident) (7) History of atrial fibrillation Plan Patient received dialysis last evening for hyperkalemia. Patient had to be transferred to ICU for low blood pressure despite of multiple fluid challenges. Currently in ICU blood pressure 85-90 systolic. Patient on no blood pressure medication. Troponin I slightly elevated. 2D echocardiogram pending. Will start midodrine. Will aim to dialyze tomorrow. Monitor H&H and renal parameters and electrolytes Antibiotic per ID Pain medication adjusted Continue per consultants Subjective ROS Limited/Unobtainable: No Constitutional: Reports: malaise, weakness Objective Objective Last 24 Hour Vital Signs Date Time Temp Pulse Resp B/P (MAP) Pulse Ox O2 Delivery O2 Flow Rate FiO2 04/26/20 07:00 60 12 90/47 (61) 99 04/26/20 06:00 60 12 100/47 (64) 99 04/26/20 05:00 60 12 92/50 (64) 100 04/26/20 04:00 Nasal Cannula 3.0 04/26/20 04:00 97.7 60 12 114/74 (87) 100 04/26/20 04:00 60 04/26/20 03:00 60 12 96/59 (71) 100 04/26/20 02:00 60 12 105/60 (75) 100 04/26/20 01:00 60 12 91/51 (64) 100 04/26/20 00:00 58 04/26/20 00:00 Nasal Cannula 3.0 04/26/20 00:00 97.9 60 12 90/51 (64) 100 04/25/20 23:00 60 18 96/47 (63) 100 04/25/20 22:00 61 18 93/56 (68) 100 04/25/20 21:00 65 18 100/80 (87) 100 04/25/20 20:00 64 04/25/20 20:00 Nasal Cannula 3.0 04/25/20 20:00 98.4 67 18 110/91 (97) 99 04/25/20 19:00 66 18 140/100 (113) 99 7/19/20 17:36 63 125/69 (87) 04/25/20 17:22 61 76/37 (50) 04/25/20 17:12 60 88/40 (56) 04/25/20 17:07 60 92/39 (56) 04/25/20 16:49 60 83/39 (54) 04/25/20 16:00 60 04/25/20 16:00 Nasal Cannula 1.0 04/25/20 13:45 70 14 67 04/25/20 13:00 Nasal Cannula 1.0 04/25/20 12:40 99.4 80 20 120/59 (79) 99 04/25/20 12:32 69 04/25/20 12:15 73 114/59 (77) 04/25/20 11:50 60/40 (47) 04/25/20 11:45 130 85/31 (49) 04/25/20 11:30 98.8 70 14 79/46 (57) 67 Intake and Output 04/25/20 04/26/20 19:00 07:00 Intake Total 1100 ml 230 ml Balance 1100 ml 230 ml Intake Oral 0 ml 180 ml IV Total 50 ml Hemodialysis 1100 ml Current Medications Medications (Trade) Dose Ordered Sig/Jesus Route PRN Reason Start Time Stop Time Status Last Admin Dose Admin Acetaminophen/ Hydrocodone Bitart ([place] 5/325) 1 tab EVERY 8 HOURS ORAL 04/25/20 22:00 04/30/20 23:14 04/26/20 06:02 Apixaban (Eliquis) 2.5 mg BID ORAL 04/26/20 09:00 07/23/20 08:59 Aspirin (ASA) 81 mg DAILY ORAL 04/26/20 09:00 06/08/20 08:59 Atorvastatin Calcium (Lipitor) 40 mg BEDTIME ORAL 04/25/20 21:00 07/24/20 20:59 04/25/20 20:52 Cefepime HCl 1 gm/ Dextrose 55 ml @ 110 mls/hr Q24H IVPB 04/26/20 18:00 05/02/20 17:59 Chlorhexidine Gluconate (Cira-Hex 2%) 1 applic DAILY@2000 TOPIC 04/25/20 20:00 07/22/20 19:59 04/25/20 20:15 Docusate Sodium (Colace) 100 mg TID ORAL 04/26/20 09:00 05/24/20 08:59 Folic Acid (Folate) 1 mg DAILY ORAL 04/26/20 09:00 05/26/20 08:59 Hydralazine HCl (Apresoline) 25 mg Q4H PRN ORAL For blood pressure over 160 sy 04/25/20 19:37 07/24/20 19:36 Hydrocortisone (Solu-CORTEF) 100 mg Q24HRS PRN IV For hypotension 04/26/20 00:00 07/25/20 00:00 Hydromorphone HCl (Dilaudid) 0.5 mg Q6H PRN SUBQ breakthrough pain 04/25/20 19:38 05/02/20 19:37 Ondansetron HCl (Zofran) 4 mg Q6H PRN IVP Nausea & Vomiting 04/25/20 19:38 05/25/20 19:37 Pantoprazole (Protonix) 40 mg EVERY 12 HOURS ORAL 04/25/20 21:00 05/24/20 08:59 04/25/20 20:51 Sevelamer Carbonate (Renvela) 800 mg THREE TIMES A DAY ORAL 04/26/20 09:00 07/23/20 08:59 Sodium Chloride 250 ml @ 999 mls/hr Q24HRS PRN IVPB For hypotension 04/26/20 00:00 05/26/20 00:00 Vancomycin HCl ([facility] pharmacy to dose) 1 ea DAILY PRN MISC Per rx protocol 04/26/20 09:00 05/23/20 19:14 Laboratory Tests 04/25/20 12:07: Arterial Blood pH 7.318L, Arterial Blood Partial Pressure CO2 51.3H, Arterial Blood Partial Pressure O2 70.3L, Arterial Blood HCO3 25.7, Arterial Blood Oxygen Saturation 91.7L, Arterial Blood Base Excess -0.8, Ari Test Positive 04/25/20 12:52: POC Whole Blood Glucose 169H 04/25/20 12:55: White Blood Count 7.0, Red Blood Count 3.47L, Hemoglobin 10.2L, Hematocrit 33.7L , Mean Corpuscular Volume 97, Mean Corpuscular Hemoglobin 29.5, Mean Corpuscular Hemoglobin Concent 30.4L, Red Cell Distribution Width 16.4H, Platelet Count 106L, Mean Platelet Volume 9.1, Neutrophils (%) (Auto) 81.2H, Lymphocytes (%) (Auto) 9.1L, Monocytes (%) (Auto) 7.3, Eosinophils (%) (Auto) 1.4, Basophils (%) (Auto) 1.1, Sodium Level 139, Potassium Level 6.1*H, Chloride Level 101, Carbon Dioxide Level 27, Anion Gap 11, Blood Urea Nitrogen 65H, Creatinine 8.3H, Estimat Glomerular Filtration Rate 5.7, Glucose Level 188H , Calcium Level 8.9, Total Bilirubin 0.3, Aspartate Amino Transf (AST/SGOT) 24, Alanine Aminotransferase (ALT/SGPT) 22, Alkaline Phosphatase 64, Troponin I 0.059H, Total Protein 6.2L, Albumin 2.8L, Globulin 3.4, Albumin/Globulin Ratio 0.8L 04/25/20 14:20: Potassium Level 6.3*H 04/25/20 17:00: Troponin I 0.084H 04/26/20 04:10: White Blood Count 5.6, Red Blood Count 3.30L, Hemoglobin 9.9L, Hematocrit 31.7L , Mean Corpuscular Volume 96, Mean Corpuscular Hemoglobin 30.0, Mean Corpuscular Hemoglobin Concent 31.2L, Red Cell Distribution Width 16.1H, Platelet Count 92L, Mean Platelet Volume 9.2, Neutrophils (%) (Auto) , Lymphocytes (%) (Auto) , Monocytes (%) (Auto) , Eosinophils (%) (Auto) , Basophils (%) (Auto) , Differential Total Cells Counted 100, Neutrophils % ( Manual) 66, Lymphocytes % (Manual) 21, Monocytes % (Manual) 7, Eosinophils % ( Manual) 6H, Basophils % (Manual) 0, Band Neutrophils 0, Platelet Estimate DecreasedL, Platelet Morphology Normal, Hypochromasia 1+, Anisocytosis 1+, Sodium Level 140, Potassium Level 5.0, Chloride Level 101, Carbon Dioxide Level 25, Anion Gap 14, Blood Urea Nitrogen 49H, Creatinine 6.3H, Estimat Glomerular Filtration Rate 7.9, Glucose Level 100, Calcium Level 9.3, Phosphorus Level 4.1 , Magnesium Level 2.3, Total Bilirubin 0.3, Aspartate Amino Transf (AST/SGOT) 21 , Alanine Aminotransferase (ALT/SGPT) 24, Alkaline Phosphatase 56, Total Protein 6.3L, Albumin 3.3L, Globulin 3.0, Albumin/Globulin Ratio 1.1, Cortisol AM Sample [Pending], Random Vancomycin Level 20.4 Height (Feet): 5 Height (Inches): 5.00 Weight (Pounds): 258 General Appearance: no apparent distress, lethargic Cardiovascular: regular rhythm Respiratory/Chest: decreased breath sounds Abdomen: soft Extremities: other - Not changed Manas Stephenson MD Apr 26, 2020 10:24
[2020-04-26] MEDS: Docusate 100mg cap ORAL SCH ×3 (10:29→18:00)
[2020-04-26] MEDS: Renvela 800mg Pkt ORAL SCH ×3 (10:29→18:22)
[2020-04-26] MEDS: Aspirin Baby 81mg ORAL SCH (10:29)
[2020-04-26] MEDS: Eliquis 2.5mg tablet ORAL SCH ×2 (10:30→18:23)
[2020-04-26] MEDS ORDERED: HYDROcodone/Acetamin 5/325 tab ORAL PRN (10:30)
[2020-04-26] MEDS: Midodrine 10mg tab ORAL SCH ×3 (10:30→18:22)
--- NOTE | 2020-04-26 11:45 | NUR ---
NURSE NOTES: late entry: RECEIVED CALL FROM MD. SALAZAR, WAS UPDATED ON PT STATUS, WBC 5.6, NO DUPLEX OF LOWER EXTREMITIES. MAY HAVE H.D TODAY. RECEIVED ORDER TO PLACE ARTERIAL AND VENOUS DUPLEX OF BILATERAL LOWER LEGS.
--- NOTE | 2020-04-26 12:06 | NUR ---
NURSE NOTES: LATE ENTRY: MD DEENA Mendoza FOR 04/27. CALLED [facility] [phone]. SPOKE WITH CALL REP CLEMENS. WILL INFORM Kelly Scott
--- NOTE | 2020-04-26 12:12 | NUR ---
NURSE NOTES: LATE ENTRY: PT IN BED. RESTING WITH EYES CLOSED. OPENS EYES. A/OX3. LT SIDE WEAKNESS. VS ON MONITOR 60, 87/ 52, 100%, 10. ORAL TEMP 97.8. NO C/O SOB. 3L NC. WHEEZE NOTED. NO SECRETIONS. ABDOMEN ROUND. NO BM AT THIS TIME. [facility] EATS WITH ASSISTANCE. PURE WICK IN PLACE,M NO OUTPUT. PT ANURIC. DROPLET PRECAUTIONS, PUI COVID-19, CONTACT [facility]. CALL LIGHT IN REACH. BED ALARM ON, IN LOW POSITION. SIDE RAILS X2. WILL CONTINUE TO MONITOR PT
--- NOTE | 2020-04-26 12:45 | Hematology/Onc Progress Note ---
Assessment/Plan Assessment/Plan Assessment and Recs # Thombocytopenia is likely 2/2 Cellulitis of left foot --> as per id --> abx started vanc --> plt trend 150-->102-->92 --> hold anticoag if plt <50 # Anemia is likely due to esrd, has been under care of Dr. Stephenson --> continue hd as needed --> with permacath in place on chest, no infection --> epo, iron as needed --> cbc has been ordered # Hypercoagulable disorder with afib hx --> on eliquis which has been started --> no bleeding noted # ESRD (end stage renal disease) --> per renal care # Diabetic nephropathy --> wound care and endo recs --> a1c goal <8 # Dvt ppx eliquis TOSIN Rn and appreciate consultation Subjective Constitutional: Denies: no symptoms, chills, fever, malaise, weakness, other HEENT: Denies: no symptoms, eye pain, blurred vision, tearing, double vision, ear pain, ear discharge, nose pain, nose congestion, throat pain, throat swelling, mouth pain, mouth swelling, other Cardiovascular: Denies: no symptoms, chest pain, edema, irregular heart rate, lightheadedness, palpitations, syncope, other Respiratory: Denies: no symptoms, cough, shortness of breath, SOB with excertion, SOB at rest, sputum, wheezing, other Gastrointestinal/Abdominal: Denies: no symptoms, abdomen distended, abdominal pain, black stools, tarry stools, blood in stool, constipated, diarrhea, difficulty swallowing, nausea, poor appetite, poor fluid intake, rectal bleeding , vomiting, other Neurologic/Psychiatric: Denies: no symptoms, anxiety, depressed, emotional problems, headache, numbness, paresthesia, pre-existing deficit, seizure, tingling, tremors, weakness, other Endocrine: Denies: no symptoms, excessive sweating, flushing, intolerance to cold, intolerance to heat, increased hunger, increased thirst, increased urine, unexplained weight gain, unexplained weight loss, other Hematologic/Lymphatic: Denies: no symptoms, anemia, easy bleeding, easy bruising, adenopathy, other Allergies: Coded Allergies: PENICILLINS (Verified Allergy, Unknown, 04/23/20) Tolerated Cefepime 04/23/20 Subjective 04/26 seen by renal, is for hd tomorrow, labs noted, plts are lower Objective Objective Current Medications Medications (Trade) Dose Ordered Sig/Jesus Route PRN Reason Start Time Stop Time Status Last Admin Dose Admin Acetaminophen/ Hydrocodone Bitart ([place] 5/325) 1 tab Q6H PRN ORAL Pain 3-6 04/26/20 10:30 05/03/20 10:29 Apixaban (Eliquis) 2.5 mg BID ORAL 04/26/20 09:00 07/23/20 08:59 04/26/20 10:30 Aspirin (ASA) 81 mg DAILY ORAL 04/26/20 09:00 06/08/20 08:59 04/26/20 10:29 Atorvastatin Calcium (Lipitor) 40 mg BEDTIME ORAL 04/25/20 21:00 07/24/20 20:59 04/25/20 20:52 Cefepime HCl 1 gm/ Dextrose 55 ml @ 110 mls/hr Q24H IVPB 04/26/20 18:00 05/02/20 17:59 Chlorhexidine Gluconate (Cira-Hex 2%) 1 applic DAILY@2000 TOPIC 04/25/20 20:00 07/22/20 19:59 04/25/20 20:15 Docusate Sodium (Colace) 100 mg TID ORAL 04/26/20 09:00 05/24/20 08:59 04/26/20 10:29 Folic Acid (Folate) 1 mg DAILY ORAL 04/26/20 09:00 05/26/20 08:59 04/26/20 10:30 Hydralazine HCl (Apresoline) 25 mg Q4H PRN ORAL For blood pressure over 160 sy 04/25/20 19:37 07/24/20 19:36 Hydromorphone HCl (Dilaudid) 0.5 mg Q6H PRN SUBQ Pain 7-04/26/20 13:38 05/02/20 19:37 Midodrine (Pro-Amatine) 10 mg THREE TIMES A DAY ORAL 04/26/20 10:30 07/25/20 10:29 04/26/20 12:21 Ondansetron HCl (Zofran) 4 mg Q6H PRN IVP Nausea & Vomiting 04/25/20 19:38 05/25/20 19:37 Pantoprazole (Protonix) 40 mg EVERY 12 HOURS ORAL 04/25/20 21:00 05/24/20 08:59 04/26/20 10:31 Sevelamer Carbonate (Renvela) 800 mg THREE TIMES A DAY ORAL 04/26/20 09:00 07/23/20 08:59 04/26/20 12:21 Sodium Chloride 250 ml @ 999 mls/hr Q24HRS PRN IVPB For hypotension 04/26/20 00:00 05/26/20 00:00 Vancomycin HCl ([facility] pharmacy to dose) 1 ea DAILY PRN MISC Per rx protocol 04/26/20 09:00 05/23/20 19:14 Last 24 Hour Vital Signs Date Time Temp Pulse Resp B/P (MAP) Pulse Ox O2 Delivery O2 Flow Rate FiO2 04/26/20 07:00 60 12 90/47 (61) 99 04/26/20 06:00 60 12 100/47 (64) 99 04/26/20 05:00 60 12 92/50 (64) 100 04/26/20 04:00 Nasal Cannula 3.0 04/26/20 04:00 97.7 60 12 114/74 (87) 100 04/26/20 04:00 60 04/26/20 03:00 60 12 96/59 (71) 100 04/26/20 02:00 60 12 105/60 (75) 100 04/26/20 01:00 60 12 91/51 (64) 100 04/26/20 00:00 58 04/26/20 00:00 Nasal Cannula 3.0 04/26/20 00:00 97.9 60 12 90/51 (64) 100 04/25/20 23:00 60 18 96/47 (63) 100 04/25/20 22:00 61 18 93/56 (68) 100 04/25/20 21:00 65 18 100/80 (87) 100 04/25/20 20:00 64 04/25/20 20:00 Nasal Cannula 3.0 04/25/20 20:00 98.4 67 18 110/91 (97) 99 04/25/20 19:00 66 18 140/100 (113) 99 04/25/20 17:36 63 125/69 (87) 04/25/20 17:22 61 76/37 (50) 04/25/20 17:12 60 88/40 (56) 04/25/20 17:07 60 92/39 (56) 04/25/20 16:49 60 83/39 (54) 04/25/20 16:00 60 04/25/20 16:00 Nasal Cannula 1.0 04/25/20 13:45 70 14 67 04/25/20 13:00 Nasal Cannula 1.0 04/25/20 12:40 99.4 80 20 120/59 (79) 99 04/25/20 12:32 69 04/25/20 12:15 73 114/59 (77) 04/25/20 11:50 60/40 (47) 04/25/20 11:45 130 85/31 (49) 04/25/20 11:30 98.8 70 14 79/46 (57) 67 04/25/20 09:00 Room Air 04/25/20 08:00 98.5 71 20 100/60 (73) 96 04/25/20 06:00 90/61 04/25/20 04:00 98.7 67 19 90/61 (71) 94 04/25/20 00:00 98.0 76 19 137/88 (104) 95 04/24/20 22:42 104/72 04/24/20 21:40 97.5 04/24/20 21:00 Room Air 04/24/20 20:00 98.6 75 19 129/74 (92) 95 04/24/20 16:00 97.5 69 18 112/68 (83) 96 04/24/20 14:00 103/62 04/24/20 13:12 103/65 Intake and Output 04/25/20 04/26/20 19:00 07:00 Intake Total 1100 ml 230 ml Balance 1100 ml 230 ml Intake Oral 0 ml 180 ml IV Total 50 ml Hemodialysis 1100 ml Labs Test 04/23/20 17:45 04/23/20 18:40 04/24/20 06:55 04/25/20 06:10 White Blood Count 6.8 K/UL (4.8-10.8) Red Blood Count 3.99 M/UL (4.20-5.40) Hemoglobin 11.7 G/DL (12.0-16.0) Hematocrit 38.1 % (37.0-47.0) Mean Corpuscular Volume 96 FL (80-99) Mean Corpuscular Hemoglobin 29.3 PG (27.0-31.0) Mean Corpuscular Hemoglobin Concent 30.6 G/DL (32.0-36.0) Red Cell Distribution Width 16.9 % (11.6-14.8) Platelet Count 151 K/UL (150-450) Mean Platelet Volume 8.8 FL (6.5-10.1) Neutrophils (%) (Auto) 75.3 % (45.0-75.0) Lymphocytes (%) (Auto) 17.6 % (20.0-45.0) Monocytes (%) (Auto) 4.5 % (1.0-10.0) Eosinophils (%) (Auto) 1.7 % (0.0-3.0) Basophils (%) (Auto) 1.0 % (0.0-2.0) Sodium Level 140 MMOL/L (136-145) 140 MMOL/L (136-145) Potassium Level 4.2 MMOL/L (3.5-5.1) 5.0 MMOL/L (3.5-5.1) Chloride Level 101 MMOL/L (98-107) 102 MMOL/L (98-107) Carbon Dioxide Level 29 MMOL/L (21-32) 31 MMOL/L (21-32) Anion Gap 11 mmol/L (5-15) 7 mmol/L (5-15) Blood Urea Nitrogen 44 mg/dL (7-18) 51 mg/dL (7-18) Creatinine 6.2 MG/DL (0.55-1.30) 6.8 MG/DL (0.55-1.30) Estimat Glomerular Filtration Rate 8.1 mL/min (>60) 7.3 mL/min (>60) Glucose Level 145 MG/DL (74-106) 163 MG/DL (74-106) Lactic Acid Level 1.00 mmol/L (0.4-2.0) Calcium Level 8.7 MG/DL (8.5-10.1) 8.8 MG/DL (8.5-10.1) Total Bilirubin 0.3 MG/DL (0.2-1.0) 0.4 MG/DL (0.2-1.0) Aspartate Amino Transf (AST/SGOT) 20 U/L (15-37) 15 U/L (15-37) Alanine Aminotransferase (ALT/SGPT) 21 U/L (12-78) 8 U/L (12-78) Alkaline Phosphatase 65 U/L (46-116) 66 U/L (46-116) Troponin I 0.005 ng/mL (0.000-0.056) 0.029 ng/mL (0.000-0.056) Total Protein 6.6 G/DL (6.4-8.2) 7.0 G/DL (6.4-8.2) Albumin 3.1 G/DL (3.4-5.0) 3.2 G/DL (3.4-5.0) Globulin 3.5 g/dL 3.8 g/dL Albumin/Globulin Ratio 0.9 (1.0-2.7) 0.8 (1.0-2.7) Erythrocyte Sedimentation Rate 53 MM/HR (0-30) Hemoglobin A1c 6.1 % (4.3-6.0) Uric Acid 4.9 MG/DL (2.6-7.2) Phosphorus Level 4.1 MG/DL (2.5-4.9) Magnesium Level 2.4 MG/DL (1.8-2.4) Iron Level 64 ug/dL (50-175) Total Iron Binding Capacity 945 ug/dL (250-450) Percent Iron Saturation 7 % (15-50) Unsaturated Iron Binding 881 ug/dL (112-346) Ferritin 1193 NG/ML (8-388) Gamma Glutamyl Transpeptidase 15 U/L (5-85) C-Reactive Protein, Quantitative 5.9 mg/dL (0.00-0.90) Pro-B-Type Natriuretic Peptide 3427 pg/mL (0-125) Triglycerides Level 54 MG/DL (30-150) Cholesterol Level 163 MG/DL (< 200) LDL Cholesterol 65 mg/dL (<100) HDL Cholesterol 71 MG/DL (40-60) Cholesterol/HDL Ratio 2.3 (3.3-4.4) Vitamin B12 Level 879 PG/ML (193-986) Folate 8.2 NG/ML (8.6-58.9) Thyroid Stimulating Hormone (TSH) 0.923 uiU/mL (0.358-3.740) Random Vancomycin Level 17.1 ug/mL Test 04/25/20 12:07 04/25/20 12:52 04/25/20 12:55 04/25/20 14:20 Arterial Blood pH 7.318 (7.350-7.450) Arterial Blood Partial Pressure CO2 51.3 mmHg (35.0-45.0) Arterial Blood Partial Pressure O2 70.3 mmHg (75.0-100.0) Arterial Blood HCO3 25.7 mmol/L (22.0-26.0) Arterial Blood Oxygen Saturation 91.7 % (95-100) Arterial Blood Base Excess -0.8 (-2-2) Ari Test Positive POC Whole Blood Glucose 169 MG/DL (74-106) White Blood Count 7.0 K/UL (4.8-10.8) Red Blood Count 3.47 M/UL (4.20-5.40) Hemoglobin 10.2 G/DL (12.0-16.0) Hematocrit 33.7 % (37.0-47.0) Mean Corpuscular Volume 97 FL (80-99) Mean Corpuscular Hemoglobin 29.5 PG (27.0-31.0) Mean Corpuscular Hemoglobin Concent 30.4 G/DL (32.0-36.0) Red Cell Distribution Width 16.4 % (11.6-14.8) Platelet Count 106 K/UL (150-450) Mean Platelet Volume 9.1 FL (6.5-10.1) Neutrophils (%) (Auto) 81.2 % (45.0-75.0) Lymphocytes (%) (Auto) 9.1 % (20.0-45.0) Monocytes (%) (Auto) 7.3 % (1.0-10.0) Eosinophils (%) (Auto) 1.4 % (0.0-3.0) Basophils (%) (Auto) 1.1 % (0.0-2.0) Sodium Level 139 MMOL/L (136-145) Potassium Level 6.1 MMOL/L (3.5-5.1) 6.3 MMOL/L (3.5-5.1) Chloride Level 101 MMOL/L (98-107) Carbon Dioxide Level 27 MMOL/L (21-32) Anion Gap 11 mmol/L (5-15) Blood Urea Nitrogen 65 mg/dL (7-18) Creatinine 8.3 MG/DL (0.55-1.30) Estimat Glomerular Filtration Rate 5.7 mL/min (>60) Glucose Level 188 MG/DL (74-106) Calcium Level 8.9 MG/DL (8.5-10.1) Total Bilirubin 0.3 MG/DL (0.2-1.0) Aspartate Amino Transf (AST/SGOT) 24 U/L (15-37) Alanine Aminotransferase (ALT/SGPT) 22 U/L (12-78) Alkaline Phosphatase 64 U/L (46-116) Troponin I 0.059 ng/mL (0.000-0.056) Total Protein 6.2 G/DL (6.4-8.2) Albumin 2.8 G/DL (3.4-5.0) Globulin 3.4 g/dL Albumin/Globulin Ratio 0.8 (1.0-2.7) Test 04/25/20 17:00 04/26/20 04:10 Troponin I 0.084 ng/mL (0.000-0.056) White Blood Count 5.6 K/UL (4.8-10.8) Red Blood Count 3.30 M/UL (4.20-5.40) Hemoglobin 9.9 G/DL (12.0-16.0) Hematocrit 31.7 % (37.0-47.0) Mean Corpuscular Volume 96 FL (80-99) Mean Corpuscular Hemoglobin 30.0 PG (27.0-31.0) Mean Corpuscular Hemoglobin Concent 31.2 G/DL (32.0-36.0) Red Cell Distribution Width 16.1 % (11.6-14.8) Platelet Count 92 K/UL (150-450) Mean Platelet Volume 9.2 FL (6.5-10.1) Neutrophils (%) (Auto) % (45.0-75.0) Lymphocytes (%) (Auto) % (20.0-45.0) Monocytes (%) (Auto) % (1.0-10.0) Eosinophils (%) (Auto) % (0.0-3.0) Basophils (%) (Auto) % (0.0-2.0) Differential Total Cells Counted 100 Neutrophils % (Manual) 66 % (45-75) Lymphocytes % (Manual) 21 % (20-45) Monocytes % (Manual) 7 % (1-10) Eosinophils % (Manual) 6 % (0-3) Basophils % (Manual) 0 % (0-2) Band Neutrophils 0 % (0-8) Platelet Estimate Decreased Platelet Morphology Normal Hypochromasia 1+ Anisocytosis 1+ Sodium Level 140 MMOL/L (136-145) Potassium Level 5.0 MMOL/L (3.5-5.1) Chloride Level 101 MMOL/L (98-107) Carbon Dioxide Level 25 MMOL/L (21-32) Anion Gap 14 mmol/L (5-15) Blood Urea Nitrogen 49 mg/dL (7-18) Creatinine 6.3 MG/DL (0.55-1.30) Estimat Glomerular Filtration Rate 7.9 mL/min (>60) Glucose Level 100 MG/DL (74-106) Calcium Level 9.3 MG/DL (8.5-10.1) Phosphorus Level 4.1 MG/DL (2.5-4.9) Magnesium Level 2.3 MG/DL (1.8-2.4) Total Bilirubin 0.3 MG/DL (0.2-1.0) Aspartate Amino Transf (AST/SGOT) 21 U/L (15-37) Alanine Aminotransferase (ALT/SGPT) 24 U/L (12-78) Alkaline Phosphatase 56 U/L (46-116) Total Protein 6.3 G/DL (6.4-8.2) Albumin 3.3 G/DL (3.4-5.0) Globulin 3.0 g/dL Albumin/Globulin Ratio 1.1 (1.0-2.7) Random Vancomycin Level 20.4 ug/mL Height (Feet): 5 Height (Inches): 5.00 Weight (Pounds): 258 Objective Physical Exam Vitals: reviewed Gen: no apparent distress, alert, non-toxic, obese, Chronically Ill HEENT: hearing grossly normal, normal voice Neck: full range of motion Resp: chest non-tender, lungs clear, normal breath sounds, no respiratory distress, permacath left side Cardiovascular: regular rate, rhythm, no edema, other - slow cap refill time of lower extremities bilaterally GI: normal bowel sounds, non tender, soft Msk: normal range of motion, non-tender, other - PT. wheel chair bound Neuro: alert, oriented x3, responsive, speech normal, sensory deficit Psychiatric: judgement/insight normal Skin: Decubitus/Ulcer - 2cm in diameter with a deeper necrotic 0.6cm center. erythema- pressure sore on tailbone. no skin break down Husam Byers MD Apr 26, 2020 12:45
[2020-04-26] MEDS ORDERED: Hydromorphone 0.5mg/0.5ml inj SUBQ PRN (13:38)
--- NOTE | 2020-04-26 14:00 | NUR ---
NURSE NOTES: Cheyanne
--- NOTE | 2020-04-26 16:05 | NUR ---
NURSE NOTES: LATE ENTRY: PT IN BED. RESTING, RESPONSIVE TO NAME. A/OX3. CALM, PUPILS 3MM. LT SIDE WEAKNESS. VSS. NO C/O OF PAIN OR SOB. 3L NC. ABDOMEN ROUND, NON TENDER. NO BM AT THIS TIME. NO JVD, CAP REFILL<3SEC. CALL LIGHT IN REACH. BED ALARM ON, LOCKED AND IN LOW POSITION. SIDE RAILS X2. EDUCATED PT ON H.D TOMORROW. WILL CONTINUE TO IMPLEMENT PLAN OF CARE.
--- NOTE | 2020-04-26 16:05 | Pulmonology Progress Note ---
Subjective ROS Limited/Unobtainable: No Interval Events: Transferred to ICU due to hypotension; much better now Constitutional: Reports: no symptoms HEENT: Repors: no symptoms Respiratory: Reports: no symptoms Cardiovascular: Reports: no symptoms Allergies: Coded Allergies: PENICILLINS (Verified Allergy, Unknown, 04/23/20) Tolerated Cefepime 04/23/20 Objective Last 24 Hour Vital Signs Date Time Temp Pulse Resp B/P (MAP) Pulse Ox O2 Delivery O2 Flow Rate FiO2 04/26/20 14:00 60 11 98/46 (63) 100 04/26/20 13:00 60 7 100/46 (64) 100 04/26/20 12:00 97.0 60 10 87/52 (64) 100 04/26/20 12:00 60 04/26/20 08:00 60 04/26/20 07:00 60 12 90/47 (61) 99 04/26/20 06:00 60 12 100/47 (64) 99 04/26/20 05:00 60 12 92/50 (64) 100 04/26/20 04:00 Nasal Cannula 3.0 04/26/20 04:00 97.7 60 12 114/74 (87) 100 04/26/20 04:00 60 04/26/20 03:00 60 12 96/59 (71) 100 04/26/20 02:00 60 12 105/60 (75) 100 04/26/20 01:00 60 12 91/51 (64) 100 04/26/20 00:00 58 04/26/20 00:00 Nasal Cannula 3.0 04/26/20 00:00 97.9 60 12 90/51 (64) 100 04/25/20 23:00 60 18 96/47 (63) 100 04/25/20 22:00 61 18 93/56 (68) 100 04/25/20 21:00 65 18 100/80 (87) 100 04/25/20 20:00 64 04/25/20 20:00 Nasal Cannula 3.0 04/25/20 20:00 98.4 67 18 110/91 (97) 99 04/25/20 19:00 66 18 140/100 (113) 99 04/25/20 17:36 63 125/69 (87) 04/25/20 17:22 61 76/37 (50) 04/25/20 17:12 60 88/40 (56) 04/25/20 17:07 60 92/39 (56) 04/25/20 16:49 60 83/39 (54) Intake and Output 04/25/20 04/26/20 19:00 07:00 Intake Total 1100 ml 230 ml Balance 1100 ml 230 ml Intake Oral 0 ml 180 ml IV Total 50 ml Hemodialysis 1100 ml General Appearance: no acute distress HEENT: normocephalic Respiratory: chest wall non-tender Cardiovascular: normal peripheral pulses Abdomen: soft, non tender Microbiology Date/Time Source Procedure Growth Status 04/23/20 18:40 Blood Blood Culture - Preliminary Resulted 04/23/20 18:30 Blood Blood Culture - Preliminary NO GROWTH AFTER 48 HOURS Resulted 04/23/20 20:17 Nasal Nares MRSA Culture - Final NO METHICILLIN RESISTANT STAPH AUREUS... Complete 04/23/20 21:25 Rectum - Final NO CARBAPENEM-RESISTANT ENTEROBACTERI... Complete 04/23/20 21:25 Rectum VRE Culture - Final Enterococcus Faecalis - Vre Complete Laboratory Tests 04/25/20 17:00: Troponin I 0.084H 04/26/20 04:10: White Blood Count 5.6, Red Blood Count 3.30L, Hemoglobin 9.9L, Hematocrit 31.7L , Mean Corpuscular Volume 96, Mean Corpuscular Hemoglobin 30.0, Mean Corpuscular Hemoglobin Concent 31.2L, Red Cell Distribution Width 16.1H, Platelet Count 92L, Mean Platelet Volume 9.2, Neutrophils (%) (Auto) , Lymphocytes (%) (Auto) , Monocytes (%) (Auto) , Eosinophils (%) (Auto) , Basophils (%) (Auto) , Differential Total Cells Counted 100, Neutrophils % ( Manual) 66, Lymphocytes % (Manual) 21, Monocytes % (Manual) 7, Eosinophils % ( Manual) 6H, Basophils % (Manual) 0, Band Neutrophils 0, Platelet Estimate DecreasedL, Platelet Morphology Normal, Hypochromasia 1+, Anisocytosis 1+, Sodium Level 140, Potassium Level 5.0, Chloride Level 101, Carbon Dioxide Level 25, Anion Gap 14, Blood Urea Nitrogen 49H, Creatinine 6.3H, Estimat Glomerular Filtration Rate 7.9, Glucose Level 100, Calcium Level 9.3, Phosphorus Level 4.1 , Magnesium Level 2.3, Total Bilirubin 0.3, Aspartate Amino Transf (AST/SGOT) 21 , Alanine Aminotransferase (ALT/SGPT) 24, Alkaline Phosphatase 56, Lactate Dehydrogenase 310H, Total Protein 6.3L, Albumin 3.3L, Globulin 3.0, Albumin/ Globulin Ratio 1.1, Cortisol AM Sample [Pending], Random Vancomycin Level 20.4, HIV (1&2) Antibody Rapid Negative Current Medications Medications (Trade) Dose Ordered Sig/Jesus Route PRN Reason Start Time Stop Time Status Last Admin Dose Admin Acetaminophen/ Hydrocodone Bitart ([place] 5/325) 1 tab Q6H PRN ORAL Pain 3-6 04/26/20 10:30 05/03/20 10:29 Apixaban (Eliquis) 2.5 mg BID ORAL 04/26/20 09:00 07/23/20 08:59 04/26/20 10:30 Aspirin (ASA) 81 mg DAILY ORAL 04/26/20 09:00 06/08/20 08:59 04/26/20 10:29 Atorvastatin Calcium (Lipitor) 40 mg BEDTIME ORAL 04/25/20 21:00 07/24/20 20:59 04/25/20 20:52 Cefepime HCl 1 gm/ Dextrose 55 ml @ 110 mls/hr Q24H IVPB 04/26/20 18:00 05/02/20 17:59 Chlorhexidine Gluconate (Cira-Hex 2%) 1 applic DAILY@2000 TOPIC 04/25/20 20:00 07/22/20 19:59 04/25/20 20:15 Docusate Sodium (Colace) 100 mg TID ORAL 04/26/20 09:00 05/24/20 08:59 04/26/20 10:29 Folic Acid (Folate) 1 mg DAILY ORAL 04/26/20 09:00 05/26/20 08:59 04/26/20 10:30 Hydralazine HCl (Apresoline) 25 mg Q4H PRN ORAL For blood pressure over 160 sy 04/25/20 19:37 07/24/20 19:36 Hydromorphone HCl (Dilaudid) 0.5 mg Q6H PRN SUBQ Pain 7-10 04/26/20 13:38 05/02/20 19:37 Midodrine (Pro-Amatine) 10 mg THREE TIMES A DAY ORAL 04/26/20 10:30 07/25/20 10:29 04/26/20 12:21 Ondansetron HCl (Zofran) 4 mg Q6H PRN IVP Nausea & Vomiting 04/25/20 19:38 05/25/20 19:37 Pantoprazole (Protonix) 40 mg EVERY 12 HOURS ORAL 04/25/20 21:00 05/24/20 08:59 04/26/20 10:31 Sevelamer Carbonate (Renvela) 800 mg THREE TIMES A DAY ORAL 04/26/20 09:00 07/23/20 08:59 04/26/20 12:21 Sodium Chloride 250 ml @ 999 mls/hr Q24HRS PRN IVPB For hypotension 04/26/20 00:00 05/26/20 00:00 Vancomycin HCl ([facility] pharmacy to dose) 1 ea DAILY PRN MISC Per rx protocol 04/26/20 09:00 05/23/20 19:14 Assessment/Plan Assessment/Plan ASSESSMENT: 1. Mild pulmonary edema 2. Decubitus wound, 3. End-stage renal disease, on temporary PermCath hemodialysis access. 2. Paroxysmal atrial fibrillation, 3. Diabetes type 2. 4. Hypertension. 5. Hyperlipidemia. 6. CVA-history. 7. Dementia. Plan: HD per nephrology Needs local wound care Will continue oxygen and pulmonary hygiene Broad spectrum abx Suraj Henriquez MD Apr 26, 2020 16:05
--- NOTE | 2020-04-26 16:26 | NUR ---
Social Work Chart reviewed; this SW made an attempt to locate family (daughter: Ruby Verduzco: [phone]) for a home assessment and provide emotional support, as needed. Left a message with daughter; awaiting call back at this time.
--- NOTE | 2020-04-26 17:49 | NUR ---
CASE MANAGEMENT: REVIEW SI: CELLULITIS LEFT FOOT . ESRD on HD T 97.01 HR 60 RR 10 BP 87/52 SAT 100% NC/3L H*/H 9.9/31.7 LACTATE DEHYDROGENASE 310 IS: CEFEPIME IV Q24HR MIDODRINE PO THREE TIMES A DAY NOVOLIN R IV X1 CALCIUM GLUCONATE IV X1 DECUBITUS WOUND CARE PRN HD NEEDED ICU STATUS DCP: PATIENT IS FROM HOME
[2020-04-26] MEDS: Cefepime HCl 1 GM in D5W 55 ML IVPB SCH (18:21)
--- NOTE | 2020-04-26 18:44 | NUR ---
NURSE NOTES: pt placed on [id number] air mattress. dressings changed. pt in no acute distress. refused dinner. will provide snack tonight.
--- NOTE | 2020-04-26 18:59 | NUR ---
HAND-OFF: Report given to Manuel Alberto pt in no acute distress.
--- NOTE | 2020-04-26 19:30 | NUR ---
NURSE NOTES: Received report from VIKAS avalos. Pt is resting on the bed and awake and confused. On counselor dormitory with A-pacing. BP is stable. Iv site intact and no sign of infiltration. Pt has Lt chest pace maker. Pt has multiple wound and dressing is clean and dry. O P-200 mattress for wound management. Still noted bruise on both arms and slight swelling. On O2 3L via nasal cannula and SaO2 99% noted. No fever. Pt has upper lower denture in her mouth.Pt has Rt. subclavian Perma cath and dressing is intact. Pt scheduled hemodialysis tomorrow and called to dialysis center by previous nurse. Placed fall precaution. On proper isolation PUI for COVID-19. Will continue to care plan.
--- NOTE | 2020-04-26 19:39 | Infectious Diseases Prog Note ---
Assessment/Plan Assessment: DOWEL PIN MAN 04/25- due to hypotension and desaturation -hypoxic on ABG Gram positive bacteremia -04/23 Bcx 1/4 GPC clusters; 04/25 Bcx p Pulmonary edema vs PNA- r/o COVID19 -04/25 CXR: Perihilar opacities may represent pulmonary edema versus infectious/inflammatory process. Elevated trop L foot/ankle wound- probable OM -xray L foot/ankle: No acute findings in the left foot. 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 s/p PPM asthma ESRD on HD (MWF) Plan: -Continue IV Vancomycin #4 and Cefepime #2 (abx d #4) -04/25 SP Ceftriaxone #3 -04/23 SP Cefepime x1 -f/u cx -Monitor CBC/CMP, temperatures -wound care per hospital protocol -Podiatry eval- if debridement, please obtain cultures -bone scan L Foot and ankle to eval for OM -f/u repeat Bcx x2 -COVID19 isolation and testing -ICU care Thank you for consulting [facility]. Will continue to follow along . Discussed with RN and Dr Banegas. Subjective Allergies: Coded Allergies: PENICILLINS (Verified Allergy, Unknown, 04/23/20) Tolerated Cefepime 04/23/20 afebrile received STAT HD yesterday for hypokalemia, was hypotensive and transferred to ICU BP improved now, no pressors at 3L NC bacteremic Objective Last 24 Hour Vital Signs Date Time Temp Pulse Resp B/P (MAP) Pulse Ox O2 Delivery O2 Flow Rate FiO2 04/26/20 17:00 60 13 116/52 (73) 100 04/26/20 16:00 60 04/26/20 16:00 60 12 104/50 (68) 100 04/26/20 15:00 60 12 107/57 (74) 100 04/26/20 14:00 60 11 98/46 (63) 100 04/26/20 13:00 60 7 100/46 (64) 100 04/26/20 12:00 97.0 60 10 87/52 (64) 100 04/26/20 12:00 60 04/26/20 08:00 60 04/26/20 07:00 60 12 90/47 (61) 99 04/26/20 06:00 60 12 100/47 (64) 99 04/26/20 05:00 60 12 92/50 (64) 100 04/26/20 04:00 Nasal Cannula 3.0 04/26/20 04:00 97.7 60 12 114/74 (87) 100 04/26/20 04:00 60 04/26/20 03:00 60 12 96/59 (71) 100 04/26/20 02:00 60 12 105/60 (75) 100 04/26/20 01:00 60 12 91/51 (64) 100 04/26/20 00:00 58 04/26/20 00:00 Nasal Cannula 3.0 04/26/20 00:00 97.9 60 12 90/51 (64) 100 04/25/20 23:00 60 18 96/47 (63) 100 04/25/20 22:00 61 18 93/56 (68) 100 04/25/20 21:00 65 18 100/80 (87) 100 04/25/20 20:00 64 04/25/20 20:00 Nasal Cannula 3.0 04/25/20 20:00 98.4 67 18 110/91 (97) 99 Height (Feet): 5 Height (Inches): 5.00 Weight (Pounds): 258 Microbiology Date/Time Source Procedure Growth Status 04/23/20 20:17 Nasal Nares MRSA Culture - Final NO METHICILLIN RESISTANT STAPH AUREUS... Complete 04/23/20 21:25 Rectum - Final NO CARBAPENEM-RESISTANT ENTEROBACTERI... Complete 04/23/20 21:25 Rectum VRE Culture - Final Enterococcus Faecalis - Vre Complete Laboratory Tests Test 04/26/20 04:10 White Blood Count 5.6 K/UL (4.8-10.8) Red Blood Count 3.30 M/UL (4.20-5.40) L Hemoglobin 9.9 G/DL (12.0-16.0) L Hematocrit 31.7 % (37.0-47.0) L Mean Corpuscular Volume 96 FL (80-99) Mean Corpuscular Hemoglobin 30.0 PG (27.0-31.0) Mean Corpuscular Hemoglobin Concent 31.2 G/DL (32.0-36.0) L Red Cell Distribution Width 16.1 % (11.6-14.8) H Platelet Count 92 K/UL (150-450) L Mean Platelet Volume 9.2 FL (6.5-10.1) Neutrophils (%) (Auto) % (45.0-75.0) Lymphocytes (%) (Auto) % (20.0-45.0) Monocytes (%) (Auto) % (1.0-10.0) Eosinophils (%) (Auto) % (0.0-3.0) Basophils (%) (Auto) % (0.0-2.0) Differential Total Cells Counted 100 Neutrophils % (Manual) 66 % (45-75) Lymphocytes % (Manual) 21 % (20-45) Monocytes % (Manual) 7 % (1-10) Eosinophils % (Manual) 6 % (0-3) H Basophils % (Manual) 0 % (0-2) Band Neutrophils 0 % (0-8) Platelet Estimate Decreased L Platelet Morphology Normal Hypochromasia 1+ Anisocytosis 1+ Sodium Level 140 MMOL/L (136-145) Potassium Level 5.0 MMOL/L (3.5-5.1) Chloride Level 101 MMOL/L (98-107) Carbon Dioxide Level 25 MMOL/L (21-32) Anion Gap 14 mmol/L (5-15) Blood Urea Nitrogen 49 mg/dL (7-18) H Creatinine 6.3 MG/DL (0.55-1.30) H Estimat Glomerular Filtration Rate 7.9 mL/min (>60) Glucose Level 100 MG/DL (74-106) Calcium Level 9.3 MG/DL (8.5-10.1) Phosphorus Level 4.1 MG/DL (2.5-4.9) Magnesium Level 2.3 MG/DL (1.8-2.4) Total Bilirubin 0.3 MG/DL (0.2-1.0) Aspartate Amino Transf (AST/SGOT) 21 U/L (15-37) Alanine Aminotransferase (ALT/SGPT) 24 U/L (12-78) Alkaline Phosphatase 56 U/L (46-116) Lactate Dehydrogenase 310 U/L (81-234) H Total Protein 6.3 G/DL (6.4-8.2) L Albumin 3.3 G/DL (3.4-5.0) L Globulin 3.0 g/dL Albumin/Globulin Ratio 1.1 (1.0-2.7) Cortisol AM Sample Pending Random Vancomycin Level 20.4 ug/mL HIV (1&2) Antibody Rapid Negative (NEGATIVE) Current Medications Medications (Trade) Dose Ordered Sig/Jesus Route PRN Reason Start Time Stop Time Status Last Admin Dose Admin Acetaminophen/ Hydrocodone Bitart ([place] 5/325) 1 tab Q6H PRN ORAL Pain 3-6 04/26/20 10:30 05/03/20 10:29 Apixaban (Eliquis) 2.5 mg BID ORAL 04/26/20 09:00 07/23/20 08:59 04/26/20 18:23 Aspirin (ASA) 81 mg DAILY ORAL 04/26/20 09:00 06/08/20 08:59 04/26/20 10:29 Atorvastatin Calcium (Lipitor) 40 mg BEDTIME ORAL 04/25/20 21:00 07/24/20 20:59 04/25/20 20:52 Cefepime HCl 1 gm/ Dextrose 55 ml @ 110 mls/hr Q24H IVPB 04/26/20 18:00 05/02/20 17:59 04/26/20 18:21 Chlorhexidine Gluconate (Cira-Hex 2%) 1 applic DAILY@2000 TOPIC 04/25/20 20:00 07/22/20 19:59 04/25/20 20:15 Docusate Sodium (Colace) 100 mg TID ORAL 04/26/20 09:00 05/24/20 08:59 04/26/20 10:29 Folic Acid (Folate) 1 mg DAILY ORAL 04/26/20 09:00 05/26/20 08:59 04/26/20 10:30 Hydralazine HCl (Apresoline) 25 mg Q4H PRN ORAL For blood pressure over 160 sy 04/25/20 19:37 07/24/20 19:36 Hydromorphone HCl (Dilaudid) 0.5 mg Q6H PRN SUBQ Pain 7-10 04/26/20 13:38 05/02/20 19:37 Midodrine (Pro-Amatine) 10 mg THREE TIMES A DAY ORAL 04/26/20 10:30 07/25/20 10:29 04/26/20 18:22 Ondansetron HCl (Zofran) 4 mg Q6H PRN IVP Nausea & Vomiting 04/25/20 19:38 05/25/20 19:37 Pantoprazole (Protonix) 40 mg EVERY 12 HOURS ORAL 04/25/20 21:00 05/24/20 08:59 04/26/20 10:31 Sevelamer Carbonate (Renvela) 800 mg THREE TIMES A DAY ORAL 04/26/20 09:00 07/23/20 08:59 04/26/20 18:22 Sodium Chloride 250 ml @ 999 mls/hr Q24HRS PRN IVPB For hypotension 04/26/20 00:00 05/26/20 00:00 Vancomycin HCl ([facility] pharmacy to dose) 1 ea DAILY PRN MISC Per rx protocol 04/26/20 09:00 05/23/20 19:14 Kathia Lei M.D. Apr 26, 2020 19:39
[2020-04-26] MEDS: Dyna-Hex 2% Top Sol 2oz TOPIC SCH (20:02)
[2020-04-26] MEDS: Atorvastatin 20mg tab ORAL SCH (20:25)
--- NOTE | 2020-04-26 21:19 | Cardiology Progress Note ---
Assessment/Plan Assessment/Plan 1. Hypotension, likely septic shock, gram + bacteremia, 2D echo shows normal LV systolic function. 2. Slight elevation of troponin I level due to hypotension/shock. Continue ASA and atorvastatin. 3. Paroxysmal atrial fibrillation. Continue amiodarone and apixaban. 4. History of CVA with left hemiparesis. 5. Hypoxic hypercarbic respiratory failure. Subjective Subjective Atrial paced ventricular sensed at rate of 60. Objective Last 24 Hour Vital Signs Date Time Temp Pulse Resp B/P (MAP) Pulse Ox O2 Delivery O2 Flow Rate FiO2 04/26/20 20:00 98.3 60 12 123/56 (78) 100 04/26/20 19:00 60 12 53/52 (52) 100 04/26/20 17:00 60 13 116/52 (73) 100 04/26/20 16:00 60 04/26/20 16:00 60 12 104/50 (68) 100 04/26/20 15:00 60 12 107/57 (74) 100 04/26/20 14:00 60 11 98/46 (63) 100 04/26/20 13:00 60 7 100/46 (64) 100 04/26/20 12:00 97.0 60 10 87/52 (64) 100 04/26/20 12:00 60 04/26/20 08:00 60 04/26/20 07:00 60 12 90/47 (61) 99 04/26/20 06:00 60 12 100/47 (64) 99 04/26/20 05:00 60 12 92/50 (64) 100 04/26/20 04:00 Nasal Cannula 3.0 04/26/20 04:00 97.7 60 12 114/74 (87) 100 04/26/20 04:00 60 04/26/20 03:00 60 12 96/59 (71) 100 04/26/20 02:00 60 12 105/60 (75) 100 04/26/20 01:00 60 12 91/51 (64) 100 04/26/20 00:00 58 04/26/20 00:00 Nasal Cannula 3.0 04/26/20 00:00 97.9 60 12 90/51 (64) 100 04/25/20 23:00 60 18 96/47 (63) 100 04/25/20 22:00 61 18 93/56 (68) 100 Intake and Output 04/25/20 04/26/20 19:00 07:00 Intake Total 1100 ml 230 ml Balance 1100 ml 230 ml Intake Oral 0 ml 180 ml IV Total 50 ml Hemodialysis 1100 ml 2D Echo: LVEF 60%, JENY, Severe OR, RVSP 61 mmHg Laboratory Tests Test 04/26/20 04:10 White Blood Count 5.6 K/UL (4.8-10.8) Red Blood Count 3.30 M/UL (4.20-5.40) L Hemoglobin 9.9 G/DL (12.0-16.0) L Hematocrit 31.7 % (37.0-47.0) L Mean Corpuscular Volume 96 FL (80-99) Mean Corpuscular Hemoglobin 30.0 PG (27.0-31.0) Mean Corpuscular Hemoglobin Concent 31.2 G/DL (32.0-36.0) L Red Cell Distribution Width 16.1 % (11.6-14.8) H Platelet Count 92 K/UL (150-450) L Mean Platelet Volume 9.2 FL (6.5-10.1) Neutrophils (%) (Auto) % (45.0-75.0) Lymphocytes (%) (Auto) % (20.0-45.0) Monocytes (%) (Auto) % (1.0-10.0) Eosinophils (%) (Auto) % (0.0-3.0) Basophils (%) (Auto) % (0.0-2.0) Differential Total Cells Counted 100 Neutrophils % (Manual) 66 % (45-75) Lymphocytes % (Manual) 21 % (20-45) Monocytes % (Manual) 7 % (1-10) Eosinophils % (Manual) 6 % (0-3) H Basophils % (Manual) 0 % (0-2) Band Neutrophils 0 % (0-8) Platelet Estimate Decreased L Platelet Morphology Normal Hypochromasia 1+ Anisocytosis 1+ Sodium Level 140 MMOL/L (136-145) Potassium Level 5.0 MMOL/L (3.5-5.1) Chloride Level 101 MMOL/L (98-107) Carbon Dioxide Level 25 MMOL/L (21-32) Anion Gap 14 mmol/L (5-15) Blood Urea Nitrogen 49 mg/dL (7-18) H Creatinine 6.3 MG/DL (0.55-1.30) H Estimat Glomerular Filtration Rate 7.9 mL/min (>60) Glucose Level 100 MG/DL (74-106) Calcium Level 9.3 MG/DL (8.5-10.1) Phosphorus Level 4.1 MG/DL (2.5-4.9) Magnesium Level 2.3 MG/DL (1.8-2.4) Total Bilirubin 0.3 MG/DL (0.2-1.0) Aspartate Amino Transf (AST/SGOT) 21 U/L (15-37) Alanine Aminotransferase (ALT/SGPT) 24 U/L (12-78) Alkaline Phosphatase 56 U/L (46-116) Lactate Dehydrogenase 310 U/L (81-234) H Total Protein 6.3 G/DL (6.4-8.2) L Albumin 3.3 G/DL (3.4-5.0) L Globulin 3.0 g/dL Albumin/Globulin Ratio 1.1 (1.0-2.7) Cortisol AM Sample Pending Random Vancomycin Level 20.4 ug/mL HIV (1&2) Antibody Rapid Negative (NEGATIVE) Microbiology Date/Time Source Procedure Growth Status 04/23/20 21:25 Rectum - Final NO CARBAPENEM-RESISTANT ENTEROBACTERI... Complete 04/23/20 21:25 Rectum VRE Culture - Final Enterococcus Faecalis - Vre Complete Objective HEENT: Atraumatic, normocephalic. Anicteric. Pupils are equal, round, and reactive to light and accommodation. Extraocular muscles intact. NECK: JVP cannot be assessed. No carotid bruit. Carotid upstroke is 2+ bilaterally. CARDIOVASCULAR: Normal S1, S2. There is 2/6 mid systolic murmur at the left sternal border. PMI is at fourth intercostal space at the midclavicular line. LUNGS: Bibasilar crackles. ABDOMEN: Soft, nontender, and nondistended. No hepatosplenomegaly. Positive bowel sounds. EXTREMITIES: Diminished dorsalis pedis pulses of 1+. There is diminished motor function on the left lower extremity and upper extremity. There is a pacemaker generator pocket in the left pectoral area. There is decubitus ulceration, 2 cm in diameter with necrotic portion, associated erythema in the sacral zone and also a left foot wound and ulceration. rTiston Joy MD Apr 26, 2020 21:19
--- NOTE | 2020-04-26 22:00 | NUR ---
NURSE NOTES: Pt is sleeping on the bed and no sign of acute distress noted. SaO2 99% with O2 3L nasal cannula. Provided good sleep environment. Changed position. Will continue to care plan.
[2020-04-27] VITALS (28 sets, daily range): BP systolic 92–154; BP diastolic 42–70
--- NOTE | 2020-04-27 | NUR ---
NURSE NOTES: Pt is sleeping on the bed and no sign of acute distress noted. BP is stable. SaO2 100% with O2 3L via nasal cannula. Provided good sleep environment. Turn and reposition. Will continue to monitor any change of condition.
--- NOTE | 2020-04-27 02:00 | NUR ---
NURSE NOTES: Pt is sleeping on the bed and no sign of acute distress noted. Repositioned. Continue to monitor.
--- NOTE | 2020-04-27 04:00 | NUR ---
NURSE NOTES: Bed bath was done. Cleaned Pt and applied lotion and cream. Collected blood sample. On O2 2L via nasal cannula and SaO2 100% noted. Turn and reposition. On security monitor with A-pacing. BP is 126/49mmHg. Placed fall precaution. Will continue to monitor any change of condition.
[2020-04-27 05:40] LABS: BASOPHILS % (AUTO) 1.8 % (0.0-2.0); EOSINOPHILS % (AUTO) 8.6 % (0.0-3.0); HEMATOCRIT 28.8 % (37.0-47.0); LYMPHOCYTES % (AUTO) 14.8 % (20.0-45.0); MEAN CORPUSCULAR VOLUME 95 FL (80-99); MONOCYTES % (AUTO) 9.5 % (1.0-10.0); NEUTROPHILS % (AUTO) 65.3 % (45.0-75.0); PLATELET COUNT 103 K/UL (150-450); RED BLOOD COUNT 3.02 M/UL (4.20-5.40); RED CELL DISTRIBUTION WIDTH 15.8 % (11.6-14.8); WHITE BLOOD COUNT 5.5 K/UL (4.8-10.8)
--- NOTE | 2020-04-27 06:00 | NUR ---
NURSE NOTES: Pt is sleeping on the bed and no sign of acute distress noted. V/S stable and SaO2 100% with O22L via nasal cannula. changed position. Will continue to care plan.
[2020-04-27 06:14] LABS: ANION GAP 10 mmol/L (5-15); BLOOD UREA NITROGEN 56 mg/dL (7-18); CALCIUM 9.1 MG/DL (8.5-10.1); CARBON DIOXIDE 28 MMOL/L (21-32); CHLORIDE 97 MMOL/L (98-107); CREATININE 7.7 MG/DL (0.55-1.30); POTASSIUM 5.6 MMOL/L (3.5-5.1); SODIUM 135 MMOL/L (136-145)
--- NOTE | 2020-04-27 07:16 | NUR ---
HAND-OFF: Report given to VIKAS Ramsey. Pt is sleeping on the bed and no sign of acute distress noted. .
--- NOTE | 2020-04-27 07:23 | NUR ---
NURSE NOTES: LATE ENTRY: RECEIVED REPORT FROM Dolly ORTIZ PT IN BED. RESTING, RESPONSIVE TO SHAKING. OPENS EYES BREILFY TO BACK TO SLEEP. A/OX1-2. FATIGUED, PUPILS 3MM. LT SIDE WEAKNESS. VSS , ORAL TEMP 98.7. PT C/O OF PAIN 6/10, GENERALIZED IN BACK. NO C/O SOB. 2L NC. LUNGS DIMINISHED. NO SECRETIONS. ABDOMEN ROUND, NON TENDER. NO BM AT THIS TIME. DIET CCHO MED, RENAL. EATS WITH ASSISTANCE BUT REFUSING BREAKFAST. PT OLIGURIC. BILATERAL RADIAL AND PEDAL PULSES WEAK. NO JVD, CAP REFILL<3SEC. DROPLET PRECAUTIONS, COVID-19 NEGATIVE, CONTACT VRE RECTUM. CALL LIGHT IN REACH. BED ALARM ON, LOCKED AND IN LOW POSITION. SIDE RAILS X2. EDUCATED PT ON PLAN OF CARE H.D, MEDICATION SIDE EFFECTS TO REPORT. WILL CONTINUE TO IMPLEMENT PLAN OF CARE.
[2020-04-27] MEDS: Midodrine 10mg tab ORAL SCH ×3 (08:15→18:00)
[2020-04-27] MEDS: Docusate 100mg cap ORAL SCH ×3 (08:15→18:00)
[2020-04-27] MEDS: Renvela 800mg Pkt ORAL SCH ×3 (08:16→18:00)
[2020-04-27] MEDS: Eliquis 2.5mg tablet ORAL SCH ×2 (08:17→18:00)
[2020-04-27] MEDS: Aspirin Baby 81mg ORAL SCH (08:17)
--- NOTE | 2020-04-27 08:19 | NUR ---
RD ASSESSMENT & RECOMMENDATIONS SEE CARE ACTIVITY FOR COMPLETE ASSESSMENT DAILY ESTIMATED NEEDS: Needs based on ESRD on HD, wound obese 72.8kg abw 20-30 kcals/kg [id number] total kcals 1.8-2.5 IBW 56.8kg g protein/kg 102-142 g total protein Fluid per MD on HD NUTRITION DIAGNOSIS: Increased protein needs r/t renal dysfunction and wound healing as evidenced by pt w/ ESRD on HD, w/ L heel unstageable wound. CURRENT DIET:Renal / CCHO med PO DIET RECOMMENDATIONS: RENAL DIET + DOUBLE PROTEIN PORTIONS ADDITIONAL RECOMMENDATIONS: 1) Maintain calibrated bed scale wts 2) Add NEPRO 1 tetra w/ meals 3) Check lytes daily 4) Wound care: SOLEDAD BID + Nephrovite x1 daily Vit C-> dosing per nephro 5) Poor po noted for 1-2 days, rec TOPPIECE CHOPPER eval for alertness, need for texture modifications.
--- NOTE | 2020-04-27 08:20 | NUR ---
NURSE NOTES: LATE ENTRY: MD. KEITA HERE TO SEE PT. PLAN FOR TODAY IS H.D, DUPLEX OF LOWER EXTENSITIES. WAS INFORMED THAT PT MORE DROWSY AND FATIGUED TODAY, REFUSING BREAKFAST. C/O PAIN. PAIN MEDICATION FREQUENCY WAS CHANGED BY AIDA Gates PT NOW ON MIDODRINE FOR BP CONTROL. RECEIVED ORDER TO CHANGE DILAUDID AND NORCO PRN Q6HR TO PRN Q4H.
[2020-04-27] MEDS ORDERED: HYDROcodone/Acetamin 5/325 tab ORAL PRN (08:30)
--- NOTE | 2020-04-27 09:14 | NUR ---
[employer]OLOG[employer] NOTE Shantelle CLEVELAND left a vm to pt's daughter yesterday. This SW received a call back from pt's daughter, Ruby Verduzco [phone]. Pt currently resides w/ her daughter at [address] [place] [address]. Pt is wheelchair bound. Pt needs assistance w/ ADLs and IADLs. Per Ruby, the caregiver and she is providing all necessary cares/assistance. Ruby has the copy of AD and confirmed pt expresses full code. No concern/needs shared by Ruby. SW to F/U as needed.
--- NOTE | 2020-04-27 10:37 | NUR ---
NURSE NOTES: MD Roe here to see pt. was informed pt remains in icu, awaiting h.d. transfer for hypotension, if bp remains stable post treatment, will likely be cleared to transfer out to tele or leon[facility].
--- NOTE | 2020-04-27 10:39 | Pulmonology Progress Note ---
Subjective ROS Limited/Unobtainable: No Interval Events: Transferred to ICU due to hypotension; much better now Constitutional: Reports: no symptoms HEENT: Repors: no symptoms Respiratory: Reports: no symptoms Cardiovascular: Reports: no symptoms Allergies: Coded Allergies: PENICILLINS (Verified Allergy, Unknown, 04/23/20) Tolerated Cefepime 04/23/20 Objective Last 24 Hour Vital Signs Date Time Temp Pulse Resp B/P (MAP) Pulse Ox O2 Delivery O2 Flow Rate FiO2 04/27/20 10:00 60 10 115/50 (71) 100 04/27/20 09:00 60 9 130/62 (84) 100 04/27/20 08:00 98.6 60 8 97/46 (63) 100 04/27/20 08:00 60 04/27/20 08:00 Nasal Cannula 2.0 04/27/20 07:00 60 8 114/42 (66) 100 04/27/20 06:40 100 Nasal Cannula 2.0 28 04/27/20 06:00 60 10 117/46 (69) 100 04/27/20 05:00 60 10 108/46 (66) 100 04/27/20 04:00 60 04/27/20 04:00 Nasal Cannula 2.0 04/27/20 04:00 98.4 61 10 126/49 (74) 100 04/27/20 03:00 60 10 116/50 (72) 100 04/27/20 02:00 60 10 109/51 (70) 100 04/27/20 01:00 60 10 118/55 (76) 100 04/27/20 00:00 60 04/27/20 00:00 Nasal Cannula 3.0 04/27/20 00:00 97.9 60 10 123/52 (75) 100 04/26/20 23:00 60 10 125/53 (77) 100 04/26/20 22:00 60 12 131/59 (83) 100 04/26/20 21:00 60 12 118/54 (75) 100 04/26/20 20:00 60 04/26/20 20:00 98.3 60 12 123/56 (78) 100 04/26/20 20:00 Nasal Cannula 3.0 04/26/20 19:00 60 12 53/52 (52) 100 04/26/20 17:00 60 13 116/52 (73) 100 04/26/20 16:00 60 04/26/20 16:00 Nasal Cannula 3.0 04/26/20 16:00 60 12 104/50 (68) 100 04/26/20 15:00 60 12 107/57 (74) 100 04/26/20 14:00 60 11 98/46 (63) 100 04/26/20 13:00 60 7 100/46 (64) 100 04/26/20 12:00 Nasal Cannula 3.0 04/26/20 12:00 97.0 60 10 87/52 (64) 100 04/26/20 12:00 60 Intake and Output 04/26/20 04/27/20 19:00 07:00 Intake Total 470 ml 230 ml Output Total 1 ml Balance 470 ml 229 ml Intake Oral 410 ml Free Water 120 ml IV Total 110 ml Other 60 ml Output Urine Total 1 ml General Appearance: no acute distress HEENT: normocephalic Respiratory: chest wall non-tender Cardiovascular: normal peripheral pulses Abdomen: soft, non tender Microbiology Date/Time Source Procedure Growth Status 04/25/20 17:00 Blood Blood Culture - Preliminary NO GROWTH AFTER 24 HOURS Resulted 04/25/20 14:20 Blood Blood Culture - Preliminary NO GROWTH AFTER 24 HOURS Resulted 04/25/20 15:50 Nasopharynx Coronavirus COVID-19 PCR ([facility]) - Final Complete Laboratory Tests 04/27/20 05:00: White Blood Count 5.5, Red Blood Count 3.02L, Hemoglobin 9.0L, Hematocrit 28.8L , Mean Corpuscular Volume 95, Mean Corpuscular Hemoglobin 29.8, Mean Corpuscular Hemoglobin Concent 31.2L, Red Cell Distribution Width 15.8H, Platelet Count 103L, Mean Platelet Volume 9.1, Neutrophils (%) (Auto) 65.3, Lymphocytes (%) (Auto) 14.8L, Monocytes (%) (Auto) 9.5, Eosinophils (%) (Auto) 8.6H, Basophils (%) (Auto) 1.8, Sodium Level 135L, Potassium Level 5.6H, Chloride Level 97L, Carbon Dioxide Level 28, Anion Gap 10, Blood Urea Nitrogen 56H, Creatinine 7.7H, Estimat Glomerular Filtration Rate 6.3, Glucose Level 117H , Calcium Level 9.1, Hepatitis A IgM Antibody [Pending], Hepatitis B Surface Antigen [Pending], Hepatitis B Core IgM Antibody [Pending], Hepatitis C Antibody [Pending] Current Medications Medications (Trade) Dose Ordered Sig/Jesus Route PRN Reason Start Time Stop Time Status Last Admin Dose Admin Acetaminophen/ Hydrocodone Bitart ([place] 5/325) 1 tab Q4H PRN ORAL Pain 3-6 04/27/20 08:30 05/04/20 08:29 04/27/20 08:39 Apixaban (Eliquis) 2.5 mg BID ORAL 04/26/20 09:00 07/23/20 08:59 04/27/20 08:17 Aspirin (ASA) 81 mg DAILY ORAL 04/26/20 09:00 06/08/20 08:59 04/27/20 08:17 Atorvastatin Calcium (Lipitor) 40 mg BEDTIME ORAL 04/25/20 21:00 07/24/20 20:59 04/26/20 20:25 Cefepime HCl 1 gm/ Dextrose 55 ml @ 110 mls/hr Q24H IVPB 04/26/20 18:00 05/02/20 17:59 04/26/20 18:21 Chlorhexidine Gluconate (Cira-Hex 2%) 1 applic DAILY@2000 TOPIC 04/25/20 20:00 07/22/20 19:59 04/26/20 20:02 Docusate Sodium (Colace) 100 mg TID ORAL 04/26/20 09:00 05/24/20 08:59 04/27/20 08:15 Folic Acid (Folate) 1 mg DAILY ORAL 04/26/20 09:00 05/26/20 08:59 04/27/20 08:17 Hydralazine HCl (Apresoline) 25 mg Q4H PRN ORAL For blood pressure over 160 sy 04/25/20 19:37 07/24/20 19:36 Hydromorphone HCl (Dilaudid) 0.5 mg Q4H PRN SUBQ Pain 7-10 04/27/20 08:45 05/04/20 08:44 Midodrine (Pro-Amatine) 10 mg THREE TIMES A DAY ORAL 04/26/20 10:30 07/25/20 10:29 04/27/20 08:15 Ondansetron HCl (Zofran) 4 mg Q6H PRN IVP Nausea & Vomiting 04/25/20 19:38 05/25/20 19:37 Pantoprazole (Protonix) 40 mg EVERY 12 HOURS ORAL 04/25/20 21:00 05/24/20 08:59 04/27/20 08:16 Sevelamer Carbonate (Renvela) 800 mg THREE TIMES A DAY ORAL 04/26/20 09:00 07/23/20 08:59 04/27/20 08:16 Sodium Chloride 250 ml @ 999 mls/hr Q24HRS PRN IVPB For hypotension 04/26/20 00:00 05/26/20 00:00 Vancomycin HCl ([facility] pharmacy to dose) 1 ea DAILY PRN MISC Per rx protocol 04/26/20 09:00 05/23/20 19:14 Vancomycin HCl 750 mg/Sodium Chloride 275 ml @ 183.333 mls/hr ONCE IVPB 04/27/20 18:00 04/27/20 23:59 Assessment/Plan Assessment/Plan ASSESSMENT: 1. Mild pulmonary edema 2. Decubitus wound, 3. End-stage renal disease, on temporary PermCath hemodialysis access. 2. Paroxysmal atrial fibrillation, 3. Diabetes type 2. 4. Hypertension. 5. Hyperlipidemia. 6. CVA-history. 7. Dementia. Plan: HD per nephrology Needs local wound care Will continue oxygen and pulmonary hygiene Broad spectrum abx HD today'; may need BP support Suraj Henriquez MD Apr 27, 2020 10:39
[2020-04-27 10:59] LABS: ALANINE AMINOTRANSFERASE 24 U/L (12-78); ALBUMIN 2.8 G/DL (3.4-5.0); ALKALINE PHOSPHATASE 54 U/L (46-116); ASPARTATE AMINO TRANSFERASE 25 U/L (15-37); BILIRUBIN,DIRECT 0.1 MG/DL (0.0-0.3); BILIRUBIN,TOTAL 0.4 MG/DL (0.2-1.0); PHOSPHORUS 4.9 MG/DL (2.5-4.9)
--- NOTE | 2020-04-27 11:57 | Hematology/Onc Progress Note ---
Assessment/Plan Assessment/Plan Assessment and Recs # Thombocytopenia is likely 2/2 Cellulitis of left foot --> as per id --> abx started vanc --> plt trend 150-->102-->92-->103 --> hold anticoag if plt <50 --> abx vanc/cefepime # Anemia is likely due to esrd, has been under care of Dr. Stephenson --> continue hd as needed --> with permacath in place on chest, no infection --> EPOGEN 4k dose 3 times a week started --> hgb trend 12-->9 # Hypercoagulable disorder with afib hx --> on eliquis which has been started --> no bleeding noted # ESRD (end stage renal disease) --> per renal care # Diabetic nephropathy --> wound care and endo recs --> a1c goal <8 # Dvt ppx eliquis TOSIN Rn and appreciate consultation Subjective Constitutional: Denies: no symptoms, chills, fever, malaise, weakness, other HEENT: Denies: no symptoms, eye pain, blurred vision, tearing, double vision, ear pain, ear discharge, nose pain, nose congestion, throat pain, throat swelling, mouth pain, mouth swelling, other Cardiovascular: Denies: no symptoms, chest pain, edema, irregular heart rate, lightheadedness, palpitations, syncope, other Gastrointestinal/Abdominal: Denies: no symptoms, abdomen distended, abdominal pain, black stools, tarry stools, blood in stool, constipated, diarrhea, difficulty swallowing, nausea, poor appetite, poor fluid intake, rectal bleeding , vomiting, other Genitourinary: Denies: no symptoms, burning, discharge, frequency, flank pain, hematuria, incontinence, pain, urgency, other Neurologic/Psychiatric: Denies: no symptoms, anxiety, depressed, emotional problems, headache, numbness, paresthesia, pre-existing deficit, seizure, tingling, tremors, weakness, other Endocrine: Denies: no symptoms, excessive sweating, flushing, intolerance to cold, intolerance to heat, increased hunger, increased thirst, increased urine, unexplained weight gain, unexplained weight loss, other Allergies: Coded Allergies: PENICILLINS (Verified Allergy, Unknown, 04/23/20) Tolerated Cefepime 04/23/20 Subjective 04/26 seen by renal, is for hd tomorrow, labs noted, plts are lower 04/27 labs noted, no bleeding, for hd, hgb currently lower at 9 Objective Objective Current Medications Medications (Trade) Dose Ordered Sig/Jesus Route PRN Reason Start Time Stop Time Status Last Admin Dose Admin Acetaminophen/ Hydrocodone Bitart ([place] 5/325) 1 tab Q4H PRN ORAL Pain 3-6 04/27/20 08:30 05/04/20 08:29 04/27/20 08:39 Apixaban (Eliquis) 2.5 mg BID ORAL 04/26/20 09:00 07/23/20 08:59 04/27/20 08:17 Aspirin (ASA) 81 mg DAILY ORAL 04/26/20 09:00 06/08/20 08:59 04/27/20 08:17 Atorvastatin Calcium (Lipitor) 40 mg BEDTIME ORAL 04/25/20 21:00 07/24/20 20:59 04/26/20 20:25 Cefepime HCl 1 gm/ Dextrose 55 ml @ 110 mls/hr Q24H IVPB 04/26/20 18:00 05/02/20 17:59 04/26/20 18:21 Chlorhexidine Gluconate (Cira-Hex 2%) 1 applic DAILY@2000 TOPIC 04/25/20 20:00 07/22/20 19:59 04/26/20 20:02 Docusate Sodium (Colace) 100 mg TID ORAL 04/26/20 09:00 05/24/20 08:59 04/27/20 08:15 Folic Acid (Folate) 1 mg DAILY ORAL 04/26/20 09:00 05/26/20 08:59 04/27/20 08:17 Hydralazine HCl (Apresoline) 25 mg Q4H PRN ORAL For blood pressure over 160 sy 04/25/20 19:37 07/24/20 19:36 Hydromorphone HCl (Dilaudid) 0.5 mg Q4H PRN SUBQ Pain 7-10 04/27/20 08:45 05/04/20 08:44 Midodrine (Pro-Amatine) 10 mg THREE TIMES A DAY ORAL 04/26/20 10:30 07/25/20 10:29 04/27/20 08:15 Ondansetron HCl (Zofran) 4 mg Q6H PRN IVP Nausea & Vomiting 04/25/20 19:38 05/25/20 19:37 Pantoprazole (Protonix) 40 mg EVERY 12 HOURS ORAL 04/25/20 21:00 05/24/20 08:59 04/27/20 08:16 Sevelamer Carbonate (Renvela) 800 mg THREE TIMES A DAY ORAL 04/26/20 09:00 07/23/20 08:59 04/27/20 08:16 Sodium Chloride 250 ml @ 999 mls/hr Q24HRS PRN IVPB For hypotension 04/26/20 00:00 05/26/20 00:00 Vancomycin HCl ([facility] pharmacy to dose) 1 ea DAILY PRN MISC Per rx protocol 04/26/20 09:00 05/23/20 19:14 Vancomycin HCl 750 mg/Sodium Chloride 275 ml @ 183.333 mls/hr ONCE IVPB 04/27/20 18:00 04/27/20 23:59 Last 24 Hour Vital Signs Date Time Temp Pulse Resp B/P (MAP) Pulse Ox O2 Delivery O2 Flow Rate FiO2 04/27/20 11:00 60 15 92/49 (63) 100 04/27/20 10:00 60 10 115/50 (71) 100 04/27/20 09:00 60 9 130/62 (84) 100 04/27/20 08:00 98.6 60 8 97/46 (63) 100 04/27/20 08:00 60 04/27/20 08:00 Nasal Cannula 2.0 04/27/20 07:00 60 8 114/42 (66) 100 04/27/20 06:40 100 Nasal Cannula 2.0 28 04/27/20 06:00 60 10 117/46 (69) 100 04/27/20 05:00 60 10 108/46 (66) 100 04/27/20 04:00 60 04/27/20 04:00 Nasal Cannula 2.0 04/27/20 04:00 98.4 61 10 126/49 (74) 100 04/27/20 03:00 60 10 116/50 (72) 100 04/27/20 02:00 60 10 109/51 (70) 100 04/27/20 01:00 60 10 118/55 (76) 100 04/27/20 00:00 60 04/27/20 00:00 Nasal Cannula 3.0 04/27/20 00:00 97.9 60 10 123/52 (75) 100 04/26/20 23:00 60 10 125/53 (77) 100 04/26/20 22:00 60 12 131/59 (83) 100 04/26/20 21:00 60 12 118/54 (75) 100 04/26/20 20:00 60 04/26/20 20:00 98.3 60 12 123/56 (78) 100 04/26/20 20:00 Nasal Cannula 3.0 04/26/20 19:00 60 12 53/52 (52) 100 04/26/20 17:00 60 13 116/52 (73) 100 04/26/20 16:00 60 04/26/20 16:00 Nasal Cannula 3.0 04/26/20 16:00 60 12 104/50 (68) 100 04/26/20 15:00 60 12 107/57 (74) 100 04/26/20 14:00 60 11 98/46 (63) 100 04/26/20 13:00 60 7 100/46 (64) 100 04/26/20 12:00 Nasal Cannula 3.0 04/26/20 12:00 97.0 60 10 87/52 (64) 100 04/26/20 12:00 60 04/26/20 08:00 60 04/26/20 08:00 Nasal Cannula 3.0 04/26/20 07:00 60 12 90/47 (61) 99 04/26/20 06:00 60 12 100/47 (64) 99 04/26/20 05:00 60 12 92/50 (64) 100 04/26/20 04:00 Nasal Cannula 3.0 04/26/20 04:00 97.7 60 12 114/74 (87) 100 04/26/20 04:00 60 04/26/20 03:00 60 12 96/59 (71) 100 04/26/20 02:00 60 12 105/60 (75) 100 04/26/20 01:00 60 12 91/51 (64) 100 04/26/20 00:00 58 04/26/20 00:00 Nasal Cannula 3.0 04/26/20 00:00 97.9 60 12 90/51 (64) 100 04/25/20 23:00 60 18 96/47 (63) 100 04/25/20 22:00 61 18 93/56 (68) 100 04/25/20 21:00 65 18 100/80 (87) 100 04/25/20 20:00 64 04/25/20 20:00 Nasal Cannula 3.0 04/25/20 20:00 98.4 67 18 110/91 (97) 99 04/25/20 19:00 66 18 140/100 (113) 99 04/25/20 17:36 63 125/69 (87) 04/25/20 17:22 61 76/37 (50) 04/25/20 17:12 60 88/40 (56) 04/25/20 17:07 60 92/39 (56) 04/25/20 16:49 60 83/39 (54) 04/25/20 16:00 60 04/25/20 16:00 Nasal Cannula 1.0 04/25/20 13:45 70 14 67 04/25/20 13:00 Nasal Cannula 1.0 04/25/20 12:40 99.4 80 20 120/59 (79) 99 04/25/20 12:32 69 04/25/20 12:15 73 114/59 (77) Intake and Output 04/26/20 04/27/20 19:00 07:00 Intake Total 470 ml 230 ml Output Total 1 ml Balance 470 ml 229 ml Intake Oral 410 ml Free Water 120 ml IV Total 110 ml Other 60 ml Output Urine Total 1 ml Labs Test 04/25/20 06:10 04/25/20 12:07 04/25/20 12:52 04/25/20 12:55 Random Vancomycin Level 17.1 ug/mL Arterial Blood pH 7.318 (7.350-7.450) Arterial Blood Partial Pressure CO2 51.3 mmHg (35.0-45.0) Arterial Blood Partial Pressure O2 70.3 mmHg (75.0-100.0) Arterial Blood HCO3 25.7 mmol/L (22.0-26.0) Arterial Blood Oxygen Saturation 91.7 % (95-100) Arterial Blood Base Excess -0.8 (-2-2) Ari Test Positive POC Whole Blood Glucose 169 MG/DL (74-106) White Blood Count 7.0 K/UL (4.8-10.8) Red Blood Count 3.47 M/UL (4.20-5.40) Hemoglobin 10.2 G/DL (12.0-16.0) Hematocrit 33.7 % (37.0-47.0) Mean Corpuscular Volume 97 FL (80-99) Mean Corpuscular Hemoglobin 29.5 PG (27.0-31.0) Mean Corpuscular Hemoglobin Concent 30.4 G/DL (32.0-36.0) Red Cell Distribution Width 16.4 % (11.6-14.8) Platelet Count 106 K/UL (150-450) Mean Platelet Volume 9.1 FL (6.5-10.1) Neutrophils (%) (Auto) 81.2 % (45.0-75.0) Lymphocytes (%) (Auto) 9.1 % (20.0-45.0) Monocytes (%) (Auto) 7.3 % (1.0-10.0) Eosinophils (%) (Auto) 1.4 % (0.0-3.0) Basophils (%) (Auto) 1.1 % (0.0-2.0) Sodium Level 139 MMOL/L (136-145) Potassium Level 6.1 MMOL/L (3.5-5.1) Chloride Level 101 MMOL/L (98-107) Carbon Dioxide Level 27 MMOL/L (21-32) Anion Gap 11 mmol/L (5-15) Blood Urea Nitrogen 65 mg/dL (7-18) Creatinine 8.3 MG/DL (0.55-1.30) Estimat Glomerular Filtration Rate 5.7 mL/min (>60) Glucose Level 188 MG/DL (74-106) Calcium Level 8.9 MG/DL (8.5-10.1) Total Bilirubin 0.3 MG/DL (0.2-1.0) Aspartate Amino Transf (AST/SGOT) 24 U/L (15-37) Alanine Aminotransferase (ALT/SGPT) 22 U/L (12-78) Alkaline Phosphatase 64 U/L (46-116) Troponin I 0.059 ng/mL (0.000-0.056) Total Protein 6.2 G/DL (6.4-8.2) Albumin 2.8 G/DL (3.4-5.0) Globulin 3.4 g/dL Albumin/Globulin Ratio 0.8 (1.0-2.7) Test 04/25/20 14:20 04/25/20 17:00 04/26/20 04:10 04/27/20 05:00 Potassium Level 6.3 MMOL/L (3.5-5.1) 5.0 MMOL/L (3.5-5.1) 5.6 MMOL/L (3.5-5.1) Troponin I 0.084 ng/mL (0.000-0.056) White Blood Count 5.6 K/UL (4.8-10.8) 5.5 K/UL (4.8-10.8) Red Blood Count 3.30 M/UL (4.20-5.40) 3.02 M/UL (4.20-5.40) Hemoglobin 9.9 G/DL (12.0-16.0) 9.0 G/DL (12.0-16.0) Hematocrit 31.7 % (37.0-47.0) 28.8 % (37.0-47.0) Mean Corpuscular Volume 96 FL (80-99) 95 FL (80-99) Mean Corpuscular Hemoglobin 30.0 PG (27.0-31.0) 29.8 PG (27.0-31.0) Mean Corpuscular Hemoglobin Concent 31.2 G/DL (32.0-36.0) 31.2 G/DL (32.0-36.0) Red Cell Distribution Width 16.1 % (11.6-14.8) 15.8 % (11.6-14.8) Platelet Count 92 K/UL (150-450) 103 K/UL (150-450) Mean Platelet Volume 9.2 FL (6.5-10.1) 9.1 FL (6.5-10.1) Neutrophils (%) (Auto) % (45.0-75.0) 65.3 % (45.0-75.0) Lymphocytes (%) (Auto) % (20.0-45.0) 14.8 % (20.0-45.0) Monocytes (%) (Auto) % (1.0-10.0) 9.5 % (1.0-10.0) Eosinophils (%) (Auto) % (0.0-3.0) 8.6 % (0.0-3.0) Basophils (%) (Auto) % (0.0-2.0) 1.8 % (0.0-2.0) Differential Total Cells Counted 100 Neutrophils % (Manual) 66 % (45-75) Lymphocytes % (Manual) 21 % (20-45) Monocytes % (Manual) 7 % (1-10) Eosinophils % (Manual) 6 % (0-3) Basophils % (Manual) 0 % (0-2) Band Neutrophils 0 % (0-8) Platelet Estimate Decreased Platelet Morphology Normal Hypochromasia 1+ Anisocytosis 1+ Sodium Level 140 MMOL/L (136-145) 135 MMOL/L (136-145) Chloride Level 101 MMOL/L (98-107) 97 MMOL/L (98-107) Carbon Dioxide Level 25 MMOL/L (21-32) 28 MMOL/L (21-32) Anion Gap 14 mmol/L (5-15) 10 mmol/L (5-15) Blood Urea Nitrogen 49 mg/dL (7-18) 56 mg/dL (7-18) Creatinine 6.3 MG/DL (0.55-1.30) 7.7 MG/DL (0.55-1.30) Estimat Glomerular Filtration Rate 7.9 mL/min (>60) 6.3 mL/min (>60) Glucose Level 100 MG/DL (74-106) 117 MG/DL (74-106) Calcium Level 9.3 MG/DL (8.5-10.1) 9.1 MG/DL (8.5-10.1) Phosphorus Level 4.1 MG/DL (2.5-4.9) 4.9 MG/DL (2.5-4.9) Magnesium Level 2.3 MG/DL (1.8-2.4) 2.3 MG/DL (1.8-2.4) Total Bilirubin 0.3 MG/DL (0.2-1.0) 0.4 MG/DL (0.2-1.0) Aspartate Amino Transf (AST/SGOT) 21 U/L (15-37) 25 U/L (15-37) Alanine Aminotransferase (ALT/SGPT) 24 U/L (12-78) 24 U/L (12-78) Alkaline Phosphatase 56 U/L (46-116) 54 U/L (46-116) Lactate Dehydrogenase 310 U/L (81-234) Total Protein 6.3 G/DL (6.4-8.2) 6.4 G/DL (6.4-8.2) Albumin 3.3 G/DL (3.4-5.0) 2.8 G/DL (3.4-5.0) Globulin 3.0 g/dL Albumin/Globulin Ratio 1.1 (1.0-2.7) Random Vancomycin Level 20.4 ug/mL HIV (1&2) Antibody Rapid Negative (NEGATIVE) Direct Bilirubin 0.1 MG/DL (0.0-0.3) Height (Feet): 5 Height (Inches): 5.00 Weight (Pounds): 259 Objective Physical Exam Vitals: reviewed Gen: no apparent distress, alert, non-toxic, obese, Chronically Ill HEENT: hearing grossly normal, normal voice Neck: full range of motion Resp: chest non-tender, lungs clear, normal breath sounds, no respiratory distress, permacath left side Cardiovascular: regular rate, rhythm, no edema, other - slow cap refill time of lower extremities bilaterally GI: normal bowel sounds, non tender, soft Msk: normal range of motion, non-tender, other - PT. wheel chair bound Neuro: alert, oriented x3, responsive, speech normal, sensory deficit Psychiatric: judgement/insight normal Skin: Decubitus/Ulcer - 2cm in diameter with a deeper necrotic 0.6cm center. erythema- pressure sore on tailbone. no skin break down Husam Byers MD Apr 27, 2020 11:57
[2020-04-27] MEDS: Hydromorphone 0.5mg/0.5ml inj SUBQ PRN (12:09)
--- NOTE | 2020-04-27 12:59 | Nephrology Progress Note ---
Assessment/Plan Problem List: (1) ESRD (end stage renal disease) (2) Pacemaker (3) Diabetic nephropathy (4) Cellulitis of left foot (5) Anemia in chronic kidney disease (CKD) (6) History of CVA (cerebrovascular accident) (7) History of atrial fibrillation Plan April 27: Due for dialysis today. Potassium 5.6. Will give Kayexalate. Blood pressure better under control. Continue per consultants. Also as per ID recommendation based on the blood culture results will remove the permacath tomorrow and will send the tip for culture. Will aim to have another catheter in 48 hours later. In the interim we will do surveillance blood culture. Patient received dialysis last evening for hyperkalemia. Patient had to be transferred to ICU for low blood pressure despite of multiple fluid challenges. Currently in ICU blood pressure 85-90 systolic. Patient on no blood pressure medication. Troponin I slightly elevated. 2D echocardiogram pending. Will start midodrine. Will aim to dialyze tomorrow. Monitor H&H and renal parameters and electrolytes Antibiotic per ID Pain medication adjusted Continue per consultants Subjective ROS Limited/Unobtainable: No Constitutional: Reports: malaise Objective Objective Last 24 Hour Vital Signs Date Time Temp Pulse Resp B/P (MAP) Pulse Ox O2 Delivery O2 Flow Rate FiO2 04/27/20 12:00 60 10 133/60 (84) 100 04/27/20 12:00 60 04/27/20 11:00 60 15 92/49 (63) 100 04/27/20 10:00 60 10 115/50 (71) 100 04/27/20 09:00 60 9 130/62 (84) 100 04/27/20 08:00 98.6 60 8 97/46 (63) 100 04/27/20 08:00 60 04/27/20 08:00 Nasal Cannula 2.0 04/27/20 07:00 60 8 114/42 (66) 100 04/27/20 06:40 100 Nasal Cannula 2.0 28 04/27/20 06:00 60 10 117/46 (69) 100 04/27/20 05:00 60 10 108/46 (66) 100 04/27/20 04:00 60 04/27/20 04:00 Nasal Cannula 2.0 04/27/20 04:00 98.4 61 10 126/49 (74) 100 04/27/20 03:00 60 10 116/50 (72) 100 04/27/20 02:00 60 10 109/51 (70) 100 04/27/20 01:00 60 10 118/55 (76) 100 04/27/20 00:00 60 04/27/20 00:00 Nasal Cannula 3.0 04/27/20 00:00 97.9 60 10 123/52 (75) 100 04/26/20 23:00 60 10 125/53 (77) 100 04/26/20 22:00 60 12 131/59 (83) 100 04/26/20 21:00 60 12 118/54 (75) 100 04/26/20 20:00 60 04/26/20 20:00 98.3 60 12 123/56 (78) 100 04/26/20 20:00 Nasal Cannula 3.0 04/26/20 19:00 60 12 53/52 (52) 100 04/26/20 17:00 60 13 116/52 (73) 100 04/26/20 16:00 60 04/26/20 16:00 Nasal Cannula 3.0 04/26/20 16:00 60 12 104/50 (68) 100 04/26/20 15:00 60 12 107/57 (74) 100 04/26/20 14:00 60 11 98/46 (63) 100 04/26/20 13:00 60 7 100/46 (64) 100 Intake and Output 04/26/20 04/27/20 19:00 07:00 Intake Total 470 ml 230 ml Output Total 1 ml Balance 470 ml 229 ml Intake Oral 410 ml Free Water 120 ml IV Total 110 ml Other 60 ml Output Urine Total 1 ml Current Medications Medications (Trade) Dose Ordered Sig/Jesus Route PRN Reason Start Time Stop Time Status Last Admin Dose Admin Acetaminophen/ Hydrocodone Bitart ([place] 5/325) 1 tab Q4H PRN ORAL Pain 3-6 04/27/20 08:30 05/04/20 08:29 04/27/20 08:39 Apixaban (Eliquis) 2.5 mg BID ORAL 04/26/20 09:00 07/23/20 08:59 04/27/20 08:17 Aspirin (ASA) 81 mg DAILY ORAL 04/26/20 09:00 06/08/20 08:59 04/27/20 08:17 Atorvastatin Calcium (Lipitor) 40 mg BEDTIME ORAL 04/25/20 21:00 07/24/20 20:59 04/26/20 20:25 Cefepime HCl 1 gm/ Dextrose 55 ml @ 110 mls/hr Q24H IVPB 04/26/20 18:00 05/02/20 17:59 04/26/20 18:21 Chlorhexidine Gluconate (Cira-Hex 2%) 1 applic DAILY@2000 TOPIC 04/25/20 20:00 07/22/20 19:59 04/26/20 20:02 Docusate Sodium (Colace) 100 mg TID ORAL 04/26/20 09:00 05/24/20 08:59 04/27/20 12:19 Epoetin Jose (Epoetin Jose(ESRD on dialysis)) 4,000 unit SUN- SUBQ 04/28/20 21:00 07/27/20 20:59 Folic Acid (Folate) 1 mg DAILY ORAL 04/26/20 09:00 05/26/20 08:59 04/27/20 08:17 Hydralazine HCl (Apresoline) 25 mg Q4H PRN ORAL For blood pressure over 160 sy 04/25/20 19:37 07/24/20 19:36 Hydromorphone HCl (Dilaudid) 0.5 mg Q4H PRN SUBQ Pain 7-04/27/20 08:45 05/04/20 08:44 04/27/20 12:09 Midodrine (Pro-Amatine) 10 mg THREE TIMES A DAY ORAL 04/26/20 10:30 07/25/20 10:29 04/27/20 12:19 Ondansetron HCl (Zofran) 4 mg Q6H PRN IVP Nausea & Vomiting 04/25/20 19:38 05/25/20 19:37 Pantoprazole (Protonix) 40 mg EVERY 12 HOURS ORAL 04/25/20 21:00 05/24/20 08:59 04/27/20 08:16 Sevelamer Carbonate (Renvela) 800 mg THREE TIMES A DAY ORAL 04/26/20 09:00 07/23/20 08:59 04/27/20 12:20 Sodium Chloride 250 ml @ 999 mls/hr Q24HRS PRN IVPB For hypotension 04/26/20 00:00 05/26/20 00:00 Vancomycin HCl ([facility]) 1 ea DAILY PRN MISC Per rx protocol 04/26/20 09:00 05/23/20 19:14 Vancomycin HCl 750 mg/Sodium Chloride 275 ml @ 183.333 mls/hr ONCE IVPB 04/27/20 18:00 04/27/20 23:59 Laboratory Tests 04/27/20 05:00: White Blood Count 5.5, Red Blood Count 3.02L, Hemoglobin 9.0L, Hematocrit 28.8L , Mean Corpuscular Volume 95, Mean Corpuscular Hemoglobin 29.8, Mean Corpuscular Hemoglobin Concent 31.2L, Red Cell Distribution Width 15.8H, Platelet Count 103L, Mean Platelet Volume 9.1, Neutrophils (%) (Auto) 65.3, Lymphocytes (%) (Auto) 14.8L, Monocytes (%) (Auto) 9.5, Eosinophils (%) (Auto) 8.6H, Basophils (%) (Auto) 1.8, Sodium Level 135L, Potassium Level 5.6H, Chloride Level 97L, Carbon Dioxide Level 28, Anion Gap 10, Blood Urea Nitrogen 56H, Creatinine 7.7H, Estimat Glomerular Filtration Rate 6.3, Glucose Level 117H , Calcium Level 9.1, Phosphorus Level 4.9, Magnesium Level 2.3, Total Bilirubin 0.4, Direct Bilirubin 0.1, Aspartate Amino Transf (AST/SGOT) 25, Alanine Aminotransferase (ALT/SGPT) 24, Alkaline Phosphatase 54, Total Protein 6.4, Albumin 2.8L, Hepatitis A IgM Antibody [Pending], Hepatitis B Surface Antigen [ Pending], Hepatitis B Core IgM Antibody [Pending], Hepatitis C Antibody [Pending ] Height (Feet): 5 Height (Inches): 5.00 Weight (Pounds): 259 General Appearance: no apparent distress, lethargic Cardiovascular: normal rate Respiratory/Chest: decreased breath sounds Abdomen: soft Manas Stephenson MD Apr 27, 2020 12:59
--- NOTE | 2020-04-27 13:11 | NUR ---
NURSE NOTES: PT REFUSING TO TAKE MEDICATIONS. AFTER THERAPEUTIC COMMUNICATION AND EDUCATION, NOON MEDICATION WAS TAKEN, RELUCTANTLY. PT REFUSED BREAKFAST AND NOW LUNCH. PT RECEIVED PAIN MEDICATION AT 1100. WILL INFORM MD OF DIFFICULTY. PT MOOD, LIABLE AND FATIGUED. WILL NOT KEEP EYES OPEN, LESS COMMUNICATIVE AND CORPORATIVE TODAY. UNABLE TO OBTAIN PATENT IV. PT HOLLERS IN PAIN, WILL ASK FOR PICC ORDER. AWAITING H.D TREATMENT. C.N AWARE.
[2020-04-27] MEDS ORDERED: Sodium Polystyrene Sulfonate 15gm Powder ORAL SCH (13:15)
--- NOTE | 2020-04-27 13:46 | Infectious Diseases Prog Note ---
Assessment/Plan Assessment: [employer] 04/25- due to hypotension and desaturation -hypoxic on ABG SEvere sepsis Gram positive bacteremia, persistent- r/o MRSA (?HD line infection) -04/23 Bcx 1/4 GPC clusters; 04/25 Bcx 1/4 GPC clusters -2d Echo: no vegetations seen Pulmonary edema vs PNA -04/25 SARS-COV2 PCR neg -04/25 CXR: Perihilar opacities may represent pulmonary edema versus infectious/inflammatory process. Elevated trop L foot/ankle wound- probable OM -xray L foot/ankle: No acute findings in the left foot. 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 s/p PPM asthma ESRD on HD (MWF) Plan: -Continue IV Vancomycin #5 and Cefepime #3(abx d #5) -04/25 SP Ceftriaxone #3 -04/23 SP Cefepime x1 -f/u cx -Monitor CBC/CMP, temperatures -wound care per hospital protocol -Podiatry eval- if debridement, please obtain cultures -bone scan L Foot and ankle to eval for OM when stable - Bcx x2 (peripheral & HD line) -COVID19 neg x1 -ICU care -Will likely need to remove HD catheter in view of persistent bacteremia and episodes of hypotension- suspect is 2ry to sepsis -If Bcx is positive for MRSA will also recommend RASHAAD Thank you for consulting [facility]. Will continue to follow along . Discussed with RN and Dr Banegas. Subjective Allergies: Coded Allergies: PENICILLINS (Verified Allergy, Unknown, 04/23/20) Tolerated Cefepime 04/23/20 afebrile on 2l NC remains bacteremic; ID pending remains in ICU Objective Last 24 Hour Vital Signs Date Time Temp Pulse Resp B/P (MAP) Pulse Ox O2 Delivery O2 Flow Rate FiO2 04/27/20 13:04 60 12 134/59 (84) 100 04/27/20 12:00 60 10 133/60 (84) 100 04/27/20 12:00 60 04/27/20 12:00 Nasal Cannula 2.0 04/27/20 11:00 60 15 92/49 (63) 100 04/27/20 10:00 60 10 115/50 (71) 100 04/27/20 09:00 60 9 130/62 (84) 100 04/27/20 08:00 98.6 60 8 97/46 (63) 100 04/27/20 08:00 60 04/27/20 08:00 Nasal Cannula 2.0 04/27/20 07:00 60 8 114/42 (66) 100 04/27/20 06:40 100 Nasal Cannula 2.0 28 04/27/20 06:00 60 10 117/46 (69) 100 04/27/20 05:00 60 10 108/46 (66) 100 04/27/20 04:00 60 04/27/20 04:00 Nasal Cannula 2.0 04/27/20 04:00 98.4 61 10 126/49 (74) 100 04/27/20 03:00 60 10 116/50 (72) 100 04/27/20 02:00 60 10 109/51 (70) 100 04/27/20 01:00 60 10 118/55 (76) 100 04/27/20 00:00 60 04/27/20 00:00 Nasal Cannula 3.0 04/27/20 00:00 97.9 60 10 123/52 (75) 100 04/26/20 23:00 60 10 125/53 (77) 100 04/26/20 22:00 60 12 131/59 (83) 100 04/26/20 21:00 60 12 118/54 (75) 100 04/26/20 20:00 60 04/26/20 20:00 98.3 60 12 123/56 (78) 100 04/26/20 20:00 Nasal Cannula 3.0 04/26/20 19:00 60 12 53/52 (52) 100 04/26/20 17:00 60 13 116/52 (73) 100 04/26/20 16:00 60 04/26/20 16:00 Nasal Cannula 3.0 04/26/20 16:00 60 12 104/50 (68) 100 04/26/20 15:00 60 12 107/57 (74) 100 04/26/20 14:00 60 11 98/46 (63) 100 Height (Feet): 5 Height (Inches): 5.00 Weight (Pounds): 259 Microbiology Date/Time Source Procedure Growth Status 04/25/20 17:00 Blood Blood Culture - Preliminary NO GROWTH AFTER 24 HOURS Resulted 04/25/20 14:20 Blood Blood Culture - Preliminary Resulted 04/25/20 15:50 Nasopharynx Coronavirus COVID-19 PCR ([facility]) - Final Complete Laboratory Tests Test 04/27/20 05:00 White Blood Count 5.5 K/UL (4.8-10.8) Red Blood Count 3.02 M/UL (4.20-5.40) L Hemoglobin 9.0 G/DL (12.0-16.0) L Hematocrit 28.8 % (37.0-47.0) L Mean Corpuscular Volume 95 FL (80-99) Mean Corpuscular Hemoglobin 29.8 PG (27.0-31.0) Mean Corpuscular Hemoglobin Concent 31.2 G/DL (32.0-36.0) L Red Cell Distribution Width 15.8 % (11.6-14.8) H Platelet Count 103 K/UL (150-450) L Mean Platelet Volume 9.1 FL (6.5-10.1) Neutrophils (%) (Auto) 65.3 % (45.0-75.0) Lymphocytes (%) (Auto) 14.8 % (20.0-45.0) L Monocytes (%) (Auto) 9.5 % (1.0-10.0) Eosinophils (%) (Auto) 8.6 % (0.0-3.0) H Basophils (%) (Auto) 1.8 % (0.0-2.0) Sodium Level 135 MMOL/L (136-145) L Potassium Level 5.6 MMOL/L (3.5-5.1) H Chloride Level 97 MMOL/L (98-107) L Carbon Dioxide Level 28 MMOL/L (21-32) Anion Gap 10 mmol/L (5-15) Blood Urea Nitrogen 56 mg/dL (7-18) H Creatinine 7.7 MG/DL (0.55-1.30) H Estimat Glomerular Filtration Rate 6.3 mL/min (>60) Glucose Level 117 MG/DL (74-106) H Calcium Level 9.1 MG/DL (8.5-10.1) Phosphorus Level 4.9 MG/DL (2.5-4.9) Magnesium Level 2.3 MG/DL (1.8-2.4) Total Bilirubin 0.4 MG/DL (0.2-1.0) Direct Bilirubin 0.1 MG/DL (0.0-0.3) Aspartate Amino Transf (AST/SGOT) 25 U/L (15-37) Alanine Aminotransferase (ALT/SGPT) 24 U/L (12-78) Alkaline Phosphatase 54 U/L (46-116) Total Protein 6.4 G/DL (6.4-8.2) Albumin 2.8 G/DL (3.4-5.0) L Hepatitis A IgM Antibody Pending Hepatitis B Surface Antigen Pending Hepatitis B Core IgM Antibody Pending Hepatitis C Antibody Pending Current Medications Medications (Trade) Dose Ordered Sig/Jesus Route PRN Reason Start Time Stop Time Status Last Admin Dose Admin Acetaminophen/ Hydrocodone Bitart (Harrells 5/325) 1 tab Q4H PRN ORAL Pain 3-6 04/27/20 08:30 05/04/20 08:29 04/27/20 08:39 Apixaban (Eliquis) 2.5 mg BID ORAL 04/26/20 09:00 07/23/20 08:59 04/27/20 08:17 Aspirin (ASA) 81 mg DAILY ORAL 04/26/20 09:00 06/08/20 08:59 04/27/20 08:17 Atorvastatin Calcium (Lipitor) 40 mg BEDTIME ORAL 04/25/20 21:00 07/24/20 20:59 04/26/20 20:25 Cefepime HCl 1 gm/ Dextrose 55 ml @ 110 mls/hr Q24H IVPB 04/26/20 18:00 05/02/20 17:59 04/26/20 18:21 Chlorhexidine Gluconate (Cira-Hex 2%) 1 applic DAILY@2000 TOPIC 04/25/20 20:00 07/22/20 19:59 04/26/20 20:02 Docusate Sodium (Colace) 100 mg TID ORAL 04/26/20 09:00 05/24/20 08:59 04/27/20 12:19 Epoetin Jose (Epoetin Jose(ESRD on dialysis)) 4,000 unit SUN-SUN-SUN SUBQ 04/28/20 21:00 07/27/20 20:59 Folic Acid (Folate) 1 mg DAILY ORAL 04/26/20 09:00 05/26/20 08:59 04/27/20 08:17 Hydralazine HCl (Apresoline) 25 mg Q4H PRN ORAL For blood pressure over 160 sy 04/25/20 19:37 07/24/20 19:36 Hydromorphone HCl (Dilaudid) 0.5 mg Q4H PRN SUBQ Pain 7-10 04/27/20 08:45 05/04/20 08:44 04/27/20 12:09 Midodrine (Pro-Amatine) 10 mg THREE TIMES A DAY ORAL 04/26/20 10:30 07/25/20 10:29 04/27/20 12:19 Ondansetron HCl (Zofran) 4 mg Q6H PRN IVP Nausea & Vomiting 04/25/20 19:38 05/25/20 19:37 Pantoprazole (Protonix) 40 mg EVERY 12 HOURS ORAL 04/25/20 21:00 05/24/20 08:59 04/27/20 08:16 Sevelamer Carbonate (Renvela) 800 mg THREE TIMES A DAY ORAL 04/26/20 09:00 07/23/20 08:59 04/27/20 12:20 Sodium Polystyrene Sulfonate (Kayexalate) 30 gm ONCE ORAL 04/27/20 13:15 04/27/20 14:15 Sodium Chloride 250 ml @ 999 mls/hr Q24HRS PRN IVPB For hypotension 04/26/20 00:00 05/26/20 00:00 Vancomycin HCl (Vanco pharmacy to dose) 1 ea DAILY PRN MISC Per rx protocol 04/26/20 09:00 05/23/20 19:14 Vancomycin HCl 750 mg/Sodium Chloride 275 ml @ 183.333 mls/hr ONCE IVPB 04/27/20 18:00 04/27/20 23:59 Kathia Lei M.D. Apr 27, 2020 13:46
--- NOTE | 2020-04-27 13:58 | NUR ---
NURSE NOTES: placed call to MD Naylor, that pt is refusing to take po medications. unable to administer 30gm Kayexalate. powder for k 5.6. awaiting call back.
--- NOTE | 2020-04-27 14:00 | NUR ---
NURSE NOTES: late entry: called [facility] to f/u on H.D treatment today. aware of order, h.d Sonia Rubin will arrive as soon as possible.
--- NOTE | 2020-04-27 14:02 | CDS Physician Query ---
Clarification is required for compliance, coding accuracy, and to reflect severity of illness for this patient Dear Dr. Elmer Banegas Date: 04/27/2020 Export Clerk/CDS Name: Katie Edwards Clinical Documentation states:HNP:69-year-old female with a history of end- stage renal disease, on hemodialysis...1. SIRS 2. Decubitus wound, enlarging and infected. 04/26 cardio progress note: Hypotension, likely septic shock, gram + bacteremia, 2D echo shows normal LV systolic function. Vitals/labs on admit: WBC 6.8, Temp 98.8, MI 60, RR 20 Please respond to the following question: Is there a diagnosis specific to these symptoms or values? If so please state below. PHYSICIAN RESPONSE: [] SIRS due to decubitus ulcer infection [X] SIRS due to decubitus ulcer infection with organ dysfunction [] Sepsis [] Severe sepsis with shock [] Other [] Unknown Present on Admission: [X] Yes [] No [] Clinically Undetermined Danie Banegas April Physician signature Date Please also document in your Progress Notes and/or Discharge Summary and indicate if the condition was present on admission. KAY
--- NOTE | 2020-04-27 14:26 | NUR ---
NURSE NOTES: CALLED MD. KEITA, INFORMED OF PT ALTERED MENTATION AND MOOD, C/O PAIN DESPITE PAIN COVERAGE. PT HAS OCCLUDED PERIPHERAL LINE. NO IV ACCESS. REFUSING MEALS AND FLUIDS. SCHEDULED FOR VANCOMYCIN AT 1800, REQUESTED PICC ORDER. RECEIVE ORDER FOR NPO, CONSULT MD. CHAUDHRY REGARDING PICC DUE TO BACTEREMIA CONCERNS.
--- NOTE | 2020-04-27 14:28 | NUR ---
CASE MANAGEMENT: REVIEW SI: CELLULITIS LEFT FOOT . ESRD on HD . HYPOTENSION T 98.6 HR 60 RR 8 BP 92/49 SAT 100% NC/2L H/H 9.0/28.8 NA 135 K 5.6 BUN 56 CR 7.7 BLOOD CX PENDING IS: VANCOMYCIN IV X1 CEFEPIME IV Q24HR EPOETIN SUBQ QMWF MIDODRINE PO THREE TIMES A DAY ELIQUIS ORAL BID DECUBITUS WOUND CARE PRN HD NEEDED ICU STATUS DCP: PATIENT IS FROM HOME
--- NOTE | 2020-04-27 15:44 | NUR ---
NURSE NOTES: LATE ENTRY: CALLED EXT [phone] IR, NO ANSWER, CALLED [facility]IOLOGY LEFT MESSAGE. WILL ENDORSED INFORMATION TO PM NURSE.
--- NOTE | 2020-04-27 15:46 | NUR ---
NURSE NOTES: additional attempt made to obtain peripheral iv, unsuccessful. pt resting, opens eyes to shaking, drowsy. a/ox1. bp stable her 60, bp 125/64, RR 9, sating 100%. afebrile. pt repositioned, pt paters and grimaces. hygiene care provided. hob 30. pt on p200 air mattress. call light in reach. will continue to monitor pt.
--- NOTE | 2020-04-27 17:17 | NUR ---
NURSE NOTES: H.Jodee R.N HERE TO DO H.D. PT IN BED. NO DISTRESS NOTED. BP 150/ 70, HR 60. SATING 100%. PT CLEANED AND REPOSITIONED.
--- NOTE | 2020-04-27 17:31 | NUR ---
NURSE NOTES: LATE ENTRY: RECEIVED ORDER FROM MD. CHAUDHRY FOR ALBUMIN 25% REMOVED FOR Kelly GARNICA.
[2020-04-27] MEDS: Vancomycin 750mg/NS 275ml IVPB SCH ×2 (18:00)
[2020-04-27] MEDS: Cefepime HCl 1 GM in D5W 55 ML IVPB SCH (18:00)
--- NOTE | 2020-04-27 18:25 | NUR ---
NURSE NOTES: LAB HERE TO DRAW BLOOD CULTURE. WILL DRAW BY Kelly Alberto PT IN NO ACUTE DISTRESS.
--- NOTE | 2020-04-27 19:22 | NUR ---
HAND-OFF: Report given to marni sesay endorsed inform am r.n schedule w/ IR removal of permacath, send tip for culture and 2 sets of blood cultures. consent/order for central line. pt in no acute distress.
--- NOTE | 2020-04-27 19:23 | NUR ---
NURSE NOTES: patient received from VIKAS Arambula. patient currently receiving dialysis. patient asleep, lethargic, shakes head denying pain with no attempt to speak. patient on 2L NC. BP134/52 HR62, left upper chest pacemaker A-paced. right upper chest permacath currently in use for HD. old MARIA R shunt noted. no iv access at this time. right heel unstageable, left foot big toe DTI, sacral II, right lateral ankle DTI dressing clean and intact. patient refused dinner. will continue plan of care.
[2020-04-27] MEDS: Dyna-Hex 2% Top Sol 2oz TOPIC SCH (20:00)
--- NOTE | 2020-04-27 21:44 | General Progress Note ---
Assessment/Plan Status: unchanged Assessment/Plan: S: appears delirious O: controlled pain . seen and examined in ICU. easily arousable PHYSICAL EXAMINATION: HEAD AND NECK: Atraumatic and normocephalic. CHEST: permcath in right chest wall, Clear to auscultation. HEART: S1, S2. Regular rate and rhythm. Bradycardic. MUSCULOSKELETAL: paraparesis. stage 3 decubitus wound in calcaneal region. NEUROLOGIC: The patient is awake and alert x 2. LABORATORY AND DIAGNOSTIC DATA: Labs dated 04/26/20 reviewed ASSESSMENT: 1. Sepsis secondary to Gram positive coccidiema , likely line infection 2. Acute Hypoxemic respiratory failure, s/p rapid response assessment 2. Hypotension : ddx; adrenal insufficiency 3. HyperKalemia 2. Decubitus wound, enlarging and infected. 3. End-stage renal disease, on temporary PermCath hemodialysis access. 2. Paroxysmal atrial fibrillation, rate is stable. 3. Diabetes type 2. 4. Hypertension. 5. Hyperlipidemia. 6. CVA-history. 7. CHF-Diastolic type 8. Dementia. 8. Gastrointestinal and deep vein thrombosis prophylaxes. 9. Pain management 10. iron deficiency anemia Plan: Seen in ICU Empirical abx initiated Notes from [facility] care reviewed Notified Dr Fam and D/w Dr Saavedra c/w Batsheva PRN breakthrough Consulte Hem onch Post Calcium/Novolog/D50 treatment with favorable response HD per nephrology will remove HD access post HD D/w Nephrology, ID and Vascular surgeon Guarded prognosis Subjective Allergies: Coded Allergies: PENICILLINS (Verified Allergy, Unknown, 04/23/20) Tolerated Cefepime 04/23/20 Objective Last 24 Hour Vital Signs Date Time Temp Pulse Resp B/P (MAP) Pulse Ox O2 Delivery O2 Flow Rate FiO2 04/27/20 21:00 62 12 149/61 (90) 100 04/27/20 20:00 98.6 60 11 134/52 (79) 04/27/20 19:15 60 11 142/63 (89) 100 04/27/20 19:10 60 10 143/53 (83) 100 04/27/20 19:05 60 10 143/60 (87) 100 04/27/20 19:00 60 12 139/59 (85) 100 04/27/20 18:00 60 10 153/55 (87) 100 04/27/20 17:00 66 12 150/70 (96) 100 04/27/20 16:04 Nasal Cannula 2.0 04/27/20 16:00 98.9 60 10 120/60 (80) 100 04/27/20 16:00 60 04/27/20 15:30 60 11 125/64 (84) 100 04/27/20 15:00 61 10 147/59 (88) 100 04/27/20 14:00 60 10 130/62 (84) 100 04/27/20 13:04 60 12 134/59 (84) 100 04/27/20 12:00 60 10 133/60 (84) 100 04/27/20 12:00 98.7 60 133/60 (84) 04/27/20 12:00 60 04/27/20 12:00 Nasal Cannula 2.0 04/27/20 11:00 60 15 92/49 (63) 100 04/27/20 10:00 60 10 115/50 (71) 100 04/27/20 09:00 60 9 130/62 (84) 100 04/27/20 08:00 98.6 60 8 97/46 (63) 100 04/27/20 08:00 60 04/27/20 08:00 Nasal Cannula 2.0 04/27/20 07:00 60 8 114/42 (66) 100 04/27/20 06:40 100 Nasal Cannula 2.0 28 04/27/20 06:00 60 10 117/46 (69) 100 04/27/20 05:00 60 10 108/46 (66) 100 04/27/20 04:00 60 04/27/20 04:00 Nasal Cannula 2.0 04/27/20 04:00 98.4 61 10 126/49 (74) 100 04/27/20 03:00 60 10 116/50 (72) 100 04/27/20 02:00 60 10 109/51 (70) 100 04/27/20 01:00 60 10 118/55 (76) 100 04/27/20 00:00 60 04/27/20 00:00 Nasal Cannula 3.0 04/27/20 00:00 97.9 60 10 123/52 (75) 100 04/26/20 23:00 60 10 125/53 (77) 100 04/26/20 22:00 60 12 131/59 (83) 100 Intake and Output 04/26/20 04/27/20 19:00 07:00 Intake Total 470 ml 230 ml Output Total 1 ml Balance 470 ml 229 ml Intake Oral 410 ml Free Water 120 ml IV Total 110 ml Other 60 ml Output Urine Total 1 ml Laboratory Tests 04/27/20 05:00: White Blood Count 5.5, Red Blood Count 3.02L, Hemoglobin 9.0L, Hematocrit 28.8L , Mean Corpuscular Volume 95, Mean Corpuscular Hemoglobin 29.8, Mean Corpuscular Hemoglobin Concent 31.2L, Red Cell Distribution Width 15.8H, Platelet Count 103L, Mean Platelet Volume 9.1, Neutrophils (%) (Auto) 65.3, Lymphocytes (%) (Auto) 14.8L, Monocytes (%) (Auto) 9.5, Eosinophils (%) (Auto) 8.6H, Basophils (%) (Auto) 1.8, Sodium Level 135L, Potassium Level 5.6H, Chloride Level 97L, Carbon Dioxide Level 28, Anion Gap 10, Blood Urea Nitrogen 56H, Creatinine 7.7H, Estimat Glomerular Filtration Rate 6.3, Glucose Level 117H , Calcium Level 9.1, Phosphorus Level 4.9, Magnesium Level 2.3, Total Bilirubin 0.4, Direct Bilirubin 0.1, Aspartate Amino Transf (AST/SGOT) 25, Alanine Aminotransferase (ALT/SGPT) 24, Alkaline Phosphatase 54, Total Protein 6.4, Albumin 2.8L, Hepatitis A IgM Antibody [Pending], Hepatitis B Surface Antigen [ Pending], Hepatitis B Core IgM Antibody [Pending], Hepatitis C Antibody [Pending ] Height (Feet): 5 Height (Inches): 5.00 Weight (Pounds): 259 Danie Banegas MD Apr 27, 2020 21:44
--- NOTE | 2020-04-27 22:00 | NUR ---
NURSE NOTES: patient completed dialysis, 450ml out. patient asleep, lethargic, opens eyes and nods head to name with limited speech noted. patient on 2L NC 100% oxygen saturation. BP154/50 HR 70. left upper chest pacemaker A-paced. right upper chest permacath dressing clean and asymptomatic. patient repositioned and oral care provided. will continue to monitor.
[2020-04-27] MEDS: Atorvastatin 20mg tab ORAL SCH (22:06)
--- NOTE | 2020-04-27 23:20 | Cardiology Progress Note ---
Assessment/Plan Assessment/Plan 1. Hypotension, resolved, now hypertensive side, likely caused by gram + bacteremia, 2D echo shows normal LV systolic function. 2. Slight elevation of troponin I level due to hypotension/shock. Continue ASA and atorvastatin. 3. Paroxysmal atrial fibrillation. Continue amiodarone and apixaban. 4. History of CVA with left hemiparesis. 5. Hypoxic hypercarbic respiratory failure. Subjective Subjective Atrial paced ventricular sensed at rate of 60. Objective Last 24 Hour Vital Signs Date Time Temp Pulse Resp B/P (MAP) Pulse Ox O2 Delivery O2 Flow Rate FiO2 04/27/20 22:00 70 11 154/50 (84) 100 04/27/20 21:00 62 12 149/61 (90) 100 04/27/20 20:00 60 04/27/20 20:00 98.6 60 11 134/52 (79) 04/27/20 19:15 60 11 142/63 (89) 100 04/27/20 19:10 60 10 143/53 (83) 100 04/27/20 19:05 60 10 143/60 (87) 100 04/27/20 19:00 60 12 139/59 (85) 100 04/27/20 18:00 60 10 153/55 (87) 100 04/27/20 17:00 66 12 150/70 (96) 100 04/27/20 16:04 Nasal Cannula 2.0 04/27/20 16:00 98.9 60 10 120/60 (80) 100 04/27/20 16:00 60 04/27/20 15:30 60 11 125/64 (84) 100 04/27/20 15:00 61 10 147/59 (88) 100 04/27/20 14:00 60 10 130/62 (84) 100 04/27/20 13:04 60 12 134/59 (84) 100 04/27/20 12:00 60 10 133/60 (84) 100 04/27/20 12:00 98.7 60 133/60 (84) 04/27/20 12:00 60 04/27/20 12:00 Nasal Cannula 2.0 04/27/20 11:00 60 15 92/49 (63) 100 04/27/20 10:00 60 10 115/50 (71) 100 04/27/20 09:00 60 9 130/62 (84) 100 04/27/20 08:00 98.6 60 8 97/46 (63) 100 04/27/20 08:00 60 04/27/20 08:00 Nasal Cannula 2.0 04/27/20 07:00 60 8 114/42 (66) 100 04/27/20 06:40 100 Nasal Cannula 2.0 28 04/27/20 06:00 60 10 117/46 (69) 100 04/27/20 05:00 60 10 108/46 (66) 100 04/27/20 04:00 60 04/27/20 04:00 Nasal Cannula 2.0 04/27/20 04:00 98.4 61 10 126/49 (74) 100 04/27/20 03:00 60 10 116/50 (72) 100 04/27/20 02:00 60 10 109/51 (70) 100 04/27/20 01:00 60 10 118/55 (76) 100 04/27/20 00:00 60 04/27/20 00:00 Nasal Cannula 3.0 04/27/20 00:00 97.9 60 10 123/52 (75) 100 Intake and Output 04/26/20 04/27/20 19:00 07:00 Intake Total 470 ml 230 ml Output Total 1 ml Balance 470 ml 229 ml Intake Oral 410 ml Free Water 120 ml IV Total 110 ml Other 60 ml Output Urine Total 1 ml 2D Echo: LVEF 60%, JENY, Severe NV, RVSP 61 mmHg Laboratory Tests Test 04/27/20 05:00 White Blood Count 5.5 K/UL (4.8-10.8) Red Blood Count 3.02 M/UL (4.20-5.40) L Hemoglobin 9.0 G/DL (12.0-16.0) L Hematocrit 28.8 % (37.0-47.0) L Mean Corpuscular Volume 95 FL (80-99) Mean Corpuscular Hemoglobin 29.8 PG (27.0-31.0) Mean Corpuscular Hemoglobin Concent 31.2 G/DL (32.0-36.0) L Red Cell Distribution Width 15.8 % (11.6-14.8) H Platelet Count 103 K/UL (150-450) L Mean Platelet Volume 9.1 FL (6.5-10.1) Neutrophils (%) (Auto) 65.3 % (45.0-75.0) Lymphocytes (%) (Auto) 14.8 % (20.0-45.0) L Monocytes (%) (Auto) 9.5 % (1.0-10.0) Eosinophils (%) (Auto) 8.6 % (0.0-3.0) H Basophils (%) (Auto) 1.8 % (0.0-2.0) Sodium Level 135 MMOL/L (136-145) L Potassium Level 5.6 MMOL/L (3.5-5.1) H Chloride Level 97 MMOL/L (98-107) L Carbon Dioxide Level 28 MMOL/L (21-32) Anion Gap 10 mmol/L (5-15) Blood Urea Nitrogen 56 mg/dL (7-18) H Creatinine 7.7 MG/DL (0.55-1.30) H Estimat Glomerular Filtration Rate 6.3 mL/min (>60) Glucose Level 117 MG/DL (74-106) H Calcium Level 9.1 MG/DL (8.5-10.1) Phosphorus Level 4.9 MG/DL (2.5-4.9) Magnesium Level 2.3 MG/DL (1.8-2.4) Total Bilirubin 0.4 MG/DL (0.2-1.0) Direct Bilirubin 0.1 MG/DL (0.0-0.3) Aspartate Amino Transf (AST/SGOT) 25 U/L (15-37) Alanine Aminotransferase (ALT/SGPT) 24 U/L (12-78) Alkaline Phosphatase 54 U/L (46-116) Total Protein 6.4 G/DL (6.4-8.2) Albumin 2.8 G/DL (3.4-5.0) L Hepatitis A IgM Antibody Pending Hepatitis B Surface Antigen Pending Hepatitis B Core IgM Antibody Pending Hepatitis C Antibody Pending Microbiology Date/Time Source Procedure Growth Status 04/25/20 17:00 Blood Blood Culture - Preliminary NO GROWTH AFTER 24 HOURS Resulted 04/25/20 14:20 Blood Blood Culture - Preliminary Resulted 04/25/20 15:50 Nasopharynx Coronavirus COVID-19 PCR ([facility]) - Final Complete Objective HEENT: Atraumatic, normocephalic. Anicteric. Pupils are equal, round, and reactive to light and accommodation. Extraocular muscles intact. NECK: JVP cannot be assessed. No carotid bruit. Carotid upstroke is 2+ bilaterally. CARDIOVASCULAR: Normal S1, S2. There is 2/6 mid systolic murmur at the left sternal border. PMI is at fourth intercostal space at the midclavicular line, + pacemaker pocket left side. LUNGS: Bibasilar crackles. ABDOMEN: Soft, nontender, and nondistended. No hepatosplenomegaly. Positive bowel sounds. EXTREMITIES: Diminished dorsalis pedis pulses of 1+. There is diminished motor function on the left lower extremity and upper extremity. Triston Joy MD Apr 27, 2020 23:20
[2020-04-28] VITALS (23 sets, daily range): BP systolic 127–162; BP diastolic 49–81
--- NOTE | 2020-04-28 | NUR ---
NURSE NOTES: patient asleep, lethargic, nods head to name with limited speech noted. patient on 2L NC. BP136/56 HR 63 and afebrile. left upper chest pacemaker A-paced. right upper chest permacath dressing clean and asymptomatic. patient kept NPO for permacath renewal in morning. patient repositioned and oral care provided. will continue to monitor.
--- NOTE | 2020-04-28 02:00 | NUR ---
NURSE NOTES: patient asleep, lethargic, opens eyes to name but disoriented. patient on 2L NC. BP155/63 HR 68. left upper chest pacemaker A-paced. right upper chest permacath dressing clean and asymptomatic. patient kept NPO for procedure in morning. patient repositioned and oral care provided. will continue to monitor.
--- NOTE | 2020-04-28 04:00 | NUR ---
NURSE NOTES: patient asleep, arousable to name but disoriented. patient on 2L NC. BP145/60 HR 60 and afebrile. left upper chest pacemaker A-paced. right upper chest permacath dressing clean and asymptomatic. patient kept NPO for permacath renewal in morning. patient given CHG bath, repositioned and oral care provided. will continue to monitor.
[2020-04-28 05:44] LABS: BASOPHILS % (AUTO) 1.9 % (0.0-2.0); EOSINOPHILS % (AUTO) 5.5 % (0.0-3.0); HEMATOCRIT 28.1 % (37.0-47.0); LYMPHOCYTES % (AUTO) 16.8 % (20.0-45.0); MEAN CORPUSCULAR VOLUME 95 FL (80-99); MONOCYTES % (AUTO) 10.8 % (1.0-10.0); NEUTROPHILS % (AUTO) 64.9 % (45.0-75.0); PLATELET COUNT 133 K/UL (150-450); RED BLOOD COUNT 2.97 M/UL (4.20-5.40); RED CELL DISTRIBUTION WIDTH 15.4 % (11.6-14.8); WHITE BLOOD COUNT 5.6 K/UL (4.8-10.8)
--- NOTE | 2020-04-28 06:00 | NUR ---
NURSE NOTES: patient asleep, arousable to name but disoriented. patient on 2L NC. BP161/67 HR 66. left upper chest pacemaker A-paced. right upper chest permacath dressing clean and asymptomatic. patient kept NPO for permacath renewal in morning. Left Forearm #22 running D5W@40ml/hr clean and asymptomatic. right heel unstageable, left foot big toe DTI, sacral II, right lateral ankle DTI dressing clean and intact. patient repositioned and oral care provided. will continue to monitor. Called IR @ ext#[phone] to inquire on permacath renewal, unable to leave message. will follow up.
[2020-04-28 06:20] LABS: ALANINE AMINOTRANSFERASE 22 U/L (12-78); ALBUMIN 2.8 G/DL (3.4-5.0); ALBUMIN/GLOBULIN RATIO 0.8 (1.0-2.7); ALKALINE PHOSPHATASE 57 U/L (46-116); ANION GAP 14 mmol/L (5-15); ASPARTATE AMINO TRANSFERASE 26 U/L (15-37); BILIRUBIN,TOTAL 0.5 MG/DL (0.2-1.0); BLOOD UREA NITROGEN 36 mg/dL (7-18); CALCIUM 8.9 MG/DL (8.5-10.1); CARBON DIOXIDE 27 MMOL/L (21-32); CHLORIDE 97 MMOL/L (98-107); CREATININE 5.5 MG/DL (0.55-1.30); POTASSIUM 4.6 MMOL/L (3.5-5.1); SODIUM 137 MMOL/L (136-145)
--- NOTE | 2020-04-28 07:30 | NUR ---
HAND-OFF: Report given to VIKAS Conde. endorsed plan of care.
--- NOTE | 2020-04-28 07:31 | NUR ---
NURSE NOTES: Received patient in bed, patient on a audio visual aids director. patient is alert awake, able to make her needs known. patient is on NC 2L O2 sat 96%. patient's vital signs stable. patient has left upper chest pacemaker A-paced, right upper chest permacath dressing intact, dry, and clean. patient's IV access on the left FA 22 G intact, patent, infusing without complication. patient's wound dressings clean and intact. will continue to monitor.
[2020-04-28 07:53] LABS: PHOSPHORUS 4.1 MG/DL (2.5-4.9)
--- NOTE | 2020-04-28 07:55 | NUR ---
NURSE NOTES: called IR [phone] to schedule for removal, per Tan Darling is coming in at 1pm today. will follow up with Dr. Stephenson.
--- NOTE | 2020-04-28 08:03 | General Progress Note ---
Assessment/Plan Status: unchanged Assessment/Plan: S: appears comfortable. O: controlled pain . seen and examined in ICU. talks and communicate PHYSICAL EXAMINATION: HEAD AND NECK: Atraumatic and normocephalic. CHEST: permcath in right chest wall, Clear to auscultation. HEART: S1, S2. Regular rate and rhythm. Bradycardic. MUSCULOSKELETAL: paraparesis. stage 3 decubitus wound in calcaneal region. NEUROLOGIC: The patient is awake and alert x 2. LABORATORY AND DIAGNOSTIC DATA: Labs dated 04/28/20 reviewed ASSESSMENT: 1. Sepsis secondary to Gram positive coccidiema , likely line infection 2. Acute Hypoxemic respiratory failure, s/p rapid response assessment 2. Hypotension : ddx; adrenal insufficiency 3. HyperKalemia 2. Decubitus wound, enlarging and infected. 3. End-stage renal disease, on temporary PermCath hemodialysis access. 2. Paroxysmal atrial fibrillation, rate is stable. 3. Diabetes type 2. 4. Hypertension. 5. Hyperlipidemia. 6. CVA-history. 7. CHF-Diastolic type 8. Dementia. 8. Gastrointestinal and deep vein thrombosis prophylaxes. 9. Pain management 10. iron deficiency anemia Plan: Seen in ICU Empirical abx initiated Notes from [id number] care reviewed Notified Dr Fam and D/w Dr Saavedra c/w Batsheva PRN breakthrough Consulte Hem onch Post Calcium/Novolog/D50 treatment with favorable response HD per nephrology will remove HD access post HD D/w Nephrology, ID and Vascular surgeon DC the eliquis in anticipation of Vascular procedures Subjective Allergies: Coded Allergies: PENICILLINS (Verified Allergy, Unknown, 04/23/20) Tolerated Cefepime 04/23/20 Objective Last 24 Hour Vital Signs Date Time Temp Pulse Resp B/P (MAP) Pulse Ox O2 Delivery O2 Flow Rate FiO2 04/28/20 07:00 60 11 158/60 (92) 98 04/28/20 06:00 63 16 162/69 (100) 99 04/28/20 05:00 60 10 139/61 (87) 98 04/28/20 04:00 98.5 60 11 145/60 (88) 97 04/28/20 04:00 68 04/28/20 03:00 63 11 143/57 (85) 100 04/28/20 02:00 73 16 155/63 (93) 100 04/28/20 01:00 64 13 157/71 (99) 100 04/28/20 00:00 62 04/28/20 00:00 98.6 63 11 136/56 (82) 100 04/27/20 23:00 70 11 151/61 (91) 100 04/27/20 22:00 70 11 154/50 (84) 100 04/27/20 21:00 62 12 149/61 (90) 100 04/27/20 20:00 60 04/27/20 20:00 98.6 60 11 134/52 (79) 04/27/20 19:15 60 11 142/63 (89) 100 04/27/20 19:10 60 10 143/53 (83) 100 04/27/20 19:05 60 10 143/60 (87) 100 04/27/20 19:00 60 12 139/59 (85) 100 04/27/20 18:00 60 10 153/55 (87) 100 04/27/20 17:00 66 12 150/70 (96) 100 04/27/20 16:04 Nasal Cannula 2.0 04/27/20 16:00 98.9 60 10 120/60 (80) 100 04/27/20 16:00 60 04/27/20 15:30 60 11 125/64 (84) 100 04/27/20 15:00 61 10 147/59 (88) 100 04/27/20 14:00 60 10 130/62 (84) 100 04/27/20 13:04 60 12 134/59 (84) 100 04/27/20 12:00 60 10 133/60 (84) 100 04/27/20 12:00 98.7 60 133/60 (84) 04/27/20 12:00 60 04/27/20 12:00 Nasal Cannula 2.0 04/27/20 11:00 60 15 92/49 (63) 100 04/27/20 10:00 60 10 115/50 (71) 100 04/27/20 09:00 60 9 130/62 (84) 100 Intake and Output 04/27/20 04/28/20 19:00 07:00 Intake Total 30 ml 200 ml Balance 30 ml 200 ml Intake Oral 30 ml IV Total 200 ml Laboratory Tests 04/28/20 03:20: White Blood Count 5.6, Red Blood Count 2.97L, Hemoglobin 9.0L, Hematocrit 28.1L , Mean Corpuscular Volume 95, Mean Corpuscular Hemoglobin 30.2, Mean Corpuscular Hemoglobin Concent 31.9L, Red Cell Distribution Width 15.4H, Platelet Count 133L, Mean Platelet Volume 9.4, Neutrophils (%) (Auto) 64.9, Lymphocytes (%) (Auto) 16.8L, Monocytes (%) (Auto) 10.8H, Eosinophils (%) (Auto ) 5.5H, Basophils (%) (Auto) 1.9, Sodium Level 137, Potassium Level 4.6, Chloride Level 97L, Carbon Dioxide Level 27, Anion Gap 14, Blood Urea Nitrogen 36H, Creatinine 5.5H, Estimat Glomerular Filtration Rate 9.2, Glucose Level 94, Uric Acid 4.4, Calcium Level 8.9, Phosphorus Level 4.1, Magnesium Level 2.2, Total Bilirubin 0.5, Aspartate Amino Transf (AST/SGOT) 26, Alanine Aminotransferase (ALT/SGPT) 22, Alkaline Phosphatase 57, Troponin I 0.014, C- Reactive Protein, Quantitative [Pending], Total Protein 6.4, Albumin 2.8L, Globulin 3.6, Albumin/Globulin Ratio 0.8L, Random Vancomycin Level 16.0 Height (Feet): 5 Height (Inches): 5.00 Weight (Pounds): 259 Danie Banegas MD Apr 28, 2020 08:03
[2020-04-28] MEDS: Docusate 100mg cap ORAL SCH ×3 (08:54→17:43)
[2020-04-28] MEDS: Aspirin Baby 81mg ORAL SCH (08:54)
[2020-04-28] MEDS: Renvela 800mg Pkt ORAL SCH ×3 (08:54→17:43)
[2020-04-28] MEDS: Midodrine 10mg tab ORAL SCH ×4 (08:54→17:53)
[2020-04-28] MEDS: Hydromorphone 0.5mg/0.5ml inj SUBQ PRN ×2 (09:02→13:11)
--- NOTE | 2020-04-28 09:27 | Infectious Diseases Prog Note ---
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 Elevated trop L foot/ankle wound- probable OM -xray L foot/ankle: No acute findings in the left foot. 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 s/p PPM asthma ESRD on HD (MWF) Plan: -Continue IV Vancomycin #6 and Cefepime #4(abx d #6) -04/25 SP Ceftriaxone #3 -04/23 SP Cefepime x1 -f/u cx -Monitor CBC/CMP, temperatures -wound care per hospital protocol -Podiatry eval- if debridement, please obtain cultures -bone scan L Foot and ankle to eval for OM when stable - f/u Bcx x2 (peripheral & HD line) -COVID19 neg x1 -ICU care -For HD cath removal today -If Bcx is positive for MRSA will also recommend RASHAAD Thank you for consulting [facility]. Will continue to follow along . Discussed with RN and Dr Banegas. Subjective Allergies: Coded Allergies: PENICILLINS (Verified Allergy, Unknown, 04/23/20) Tolerated Cefepime 04/23/20 afebrile on 2l NC for permacath removal today repeat bcx p no leukocytosis Objective Last 24 Hour Vital Signs Date Time Temp Pulse Resp B/P (MAP) Pulse Ox O2 Delivery O2 Flow Rate FiO2 04/28/20 07:00 60 11 158/60 (92) 98 04/28/20 06:00 63 16 162/69 (100) 99 04/28/20 05:00 60 10 139/61 (87) 98 04/28/20 04:00 98.5 60 11 145/60 (88) 97 04/28/20 04:00 68 04/28/20 03:00 63 11 143/57 (85) 100 04/28/20 02:00 73 16 155/63 (93) 100 04/28/20 01:00 64 13 157/71 (99) 100 04/28/20 00:00 62 04/28/20 00:00 98.6 63 11 136/56 (82) 100 04/27/20 23:00 70 11 151/61 (91) 100 04/27/20 22:00 70 11 154/50 (84) 100 04/27/20 21:00 62 12 149/61 (90) 100 04/27/20 20:00 60 04/27/20 20:00 98.6 60 11 134/52 (79) 04/27/20 19:15 60 11 142/63 (89) 100 04/27/20 19:10 60 10 143/53 (83) 100 04/27/20 19:05 60 10 143/60 (87) 100 04/27/20 19:00 60 12 139/59 (85) 100 04/27/20 18:00 60 10 153/55 (87) 100 04/27/20 17:00 66 12 150/70 (96) 100 04/27/20 16:04 Nasal Cannula 2.0 04/27/20 16:00 98.9 60 10 120/60 (80) 100 04/27/20 16:00 60 04/27/20 15:30 60 11 125/64 (84) 100 04/27/20 15:00 61 10 147/59 (88) 100 04/27/20 14:00 60 10 130/62 (84) 100 04/27/20 13:04 60 12 134/59 (84) 100 04/27/20 12:00 60 10 133/60 (84) 100 04/27/20 12:00 98.7 60 133/60 (84) 04/27/20 12:00 60 04/27/20 12:00 Nasal Cannula 2.0 04/27/20 11:00 60 15 92/49 (63) 100 04/27/20 10:00 60 10 115/50 (71) 100 Height (Feet): 5 Height (Inches): 5.00 Weight (Pounds): 259 Microbiology Date/Time Source Procedure Growth Status 04/25/20 17:00 Blood Blood Culture - Preliminary NO GROWTH AFTER 48 HOURS Resulted 04/25/20 14:20 Blood Blood Culture - Preliminary Staphylococcus Species Resulted 04/25/20 15:50 Nasopharynx Coronavirus COVID-19 PCR ([facility]) - Final Complete Laboratory Tests Test 04/28/20 03:20 White Blood Count 5.6 K/UL (4.8-10.8) Red Blood Count 2.97 M/UL (4.20-5.40) L Hemoglobin 9.0 G/DL (12.0-16.0) L Hematocrit 28.1 % (37.0-47.0) L Mean Corpuscular Volume 95 FL (80-99) Mean Corpuscular Hemoglobin 30.2 PG (27.0-31.0) Mean Corpuscular Hemoglobin Concent 31.9 G/DL (32.0-36.0) L Red Cell Distribution Width 15.4 % (11.6-14.8) H Platelet Count 133 K/UL (150-450) L Mean Platelet Volume 9.4 FL (6.5-10.1) Neutrophils (%) (Auto) 64.9 % (45.0-75.0) Lymphocytes (%) (Auto) 16.8 % (20.0-45.0) L Monocytes (%) (Auto) 10.8 % (1.0-10.0) H Eosinophils (%) (Auto) 5.5 % (0.0-3.0) H Basophils (%) (Auto) 1.9 % (0.0-2.0) Sodium Level 137 MMOL/L (136-145) Potassium Level 4.6 MMOL/L (3.5-5.1) Chloride Level 97 MMOL/L (98-107) L Carbon Dioxide Level 27 MMOL/L (21-32) Anion Gap 14 mmol/L (5-15) Blood Urea Nitrogen 36 mg/dL (7-18) H Creatinine 5.5 MG/DL (0.55-1.30) H Estimat Glomerular Filtration Rate 9.2 mL/min (>60) Glucose Level 94 MG/DL (74-106) Uric Acid 4.4 MG/DL (2.6-7.2) Calcium Level 8.9 MG/DL (8.5-10.1) Phosphorus Level 4.1 MG/DL (2.5-4.9) Magnesium Level 2.2 MG/DL (1.8-2.4) Total Bilirubin 0.5 MG/DL (0.2-1.0) Aspartate Amino Transf (AST/SGOT) 26 U/L (15-37) Alanine Aminotransferase (ALT/SGPT) 22 U/L (12-78) Alkaline Phosphatase 57 U/L (46-116) Troponin I 0.014 ng/mL (0.000-0.056) C-Reactive Protein, Quantitative 14.1 mg/dL (0.00-0.90) H Total Protein 6.4 G/DL (6.4-8.2) Albumin 2.8 G/DL (3.4-5.0) L Globulin 3.6 g/dL Albumin/Globulin Ratio 0.8 (1.0-2.7) L Random Vancomycin Level 16.0 ug/mL Current Medications Medications (Trade) Dose Ordered Sig/Jesus Route PRN Reason Start Time Stop Time Status Last Admin Dose Admin Acetaminophen/ Hydrocodone Bitart ([place] 5/325) 1 tab Q4H PRN ORAL Pain 3-6 04/27/20 08:30 05/04/20 08:29 04/27/20 08:39 Aspirin (ASA) 81 mg DAILY ORAL 04/26/20 09:00 06/08/20 08:59 04/28/20 08:54 Atorvastatin Calcium (Lipitor) 40 mg BEDTIME ORAL 04/25/20 21:00 07/24/20 20:59 04/27/20 22:06 Cefepime HCl 1 gm/ Dextrose 55 ml @ 110 mls/hr Q24H IVPB 04/26/20 18:00 05/02/20 17:59 04/26/20 18:21 Chlorhexidine Gluconate (Cira-Hex 2%) 1 applic DAILY@2000 TOPIC 04/25/20 20:00 07/22/20 19:59 04/27/20 20:00 Dextrose 1,000 ml @ 40 mls/hr Q24H IV 04/28/20 01:00 05/28/20 00:59 04/28/20 02:00 Docusate Sodium (Colace) 100 mg TID ORAL 04/26/20 09:00 05/24/20 08:59 04/28/20 08:54 Epoetin Jose (Epoetin Jose(ESRD on dialysis)) 4,000 unit SUN-SUN-SUN SUBQ 04/28/20 21:00 07/27/20 20:59 Folic Acid (Folate) 1 mg DAILY ORAL 04/26/20 09:00 05/26/20 08:59 04/28/20 08:54 Hydralazine HCl (Apresoline) 25 mg Q4H PRN ORAL For blood pressure over 160 sy 04/25/20 19:37 07/24/20 19:36 Hydromorphone HCl (Dilaudid) 0.5 mg Q4H PRN SUBQ Pain 7-04/27/20 08:45 05/04/20 08:44 04/28/20 09:02 Midodrine (Pro-Amatine) 10 mg THREE TIMES A DAY ORAL 04/26/20 10:30 07/25/20 10:29 04/28/20 08:54 Ondansetron HCl (Zofran) 4 mg Q6H PRN IVP Nausea & Vomiting 04/25/20 19:38 05/25/20 19:37 Pantoprazole (Protonix) 40 mg EVERY 12 HOURS ORAL 04/25/20 21:00 05/24/20 08:59 04/28/20 08:54 Sevelamer Carbonate (Renvela) 800 mg THREE TIMES A DAY ORAL 04/26/20 09:00 07/23/20 08:59 04/28/20 08:54 Sodium Chloride 250 ml @ 999 mls/hr Q24HRS PRN IVPB For hypotension 04/26/20 00:00 05/26/20 00:00 Vancomycin HCl (Vanco pharmacy to dose) 1 ea DAILY PRN MISC Per rx protocol 04/26/20 09:00 05/23/20 19:14 Vancomycin HCl 1 gm/Dextrose 275 ml @ 183.708 mls/hr ONCE IVPB 04/28/20 12:00 04/28/20 14:00 Kathia Lei M.D. Apr 28, 2020 09:27
--- NOTE | 2020-04-28 10:40 | NUR ---
NURSE NOTES: daughter called the unit - updated with patient's condition- all questions addressed- made aware patient is our of the unit with the RN for bone scan- wanted explanation for the bone scan - suggested to call Dr. Lei( phone number provided)
--- NOTE | 2020-04-28 11:33 | NUR ---
NURSE NOTES: clarified with Dr. Stephenson to take off the permacath. spoke with Tan in IR to arrange.
--- NOTE | 2020-04-28 11:51 | Hematology/Onc Progress Note ---
Assessment/Plan Assessment/Plan Assessment and Recs # Thombocytopenia is likely 2/2 Cellulitis of left foot --> as per id --> abx started vanc --> plt trend 150-->102-->92-->103-->133 --> hold anticoag if plt <50 --> abx vanc/cefepime # Anemia is likely due to esrd, has been under care of Dr. Stephenson --> continue hd as needed --> with permacath in place on chest, no infection --> EPOGEN 4k dose 3 times a week started --> hgb trend 12-->9 # Hypercoagulable disorder with afib hx --> on eliquis which has been started --> no bleeding noted # ESRD (end stage renal disease) --> per renal care # Diabetic nephropathy --> wound care and endo recs --> a1c goal <8 # Dvt ppx eliquis CARLO Rn and appreciate consultation Subjective Constitutional: Denies: no symptoms, chills, fever, malaise, weakness, other Cardiovascular: Denies: no symptoms, chest pain, edema, irregular heart rate, lightheadedness, palpitations, syncope, other Respiratory: Denies: no symptoms, cough, shortness of breath, SOB with excertion, SOB at rest, sputum, wheezing, other Gastrointestinal/Abdominal: Denies: no symptoms, abdomen distended, abdominal pain, black stools, tarry stools, blood in stool, constipated, diarrhea, difficulty swallowing, nausea, poor appetite, poor fluid intake, rectal bleeding , vomiting, other Genitourinary: Denies: no symptoms, burning, discharge, frequency, flank pain, hematuria, incontinence, pain, urgency, other Neurologic/Psychiatric: Denies: no symptoms, anxiety, depressed, emotional problems, headache, numbness, paresthesia, pre-existing deficit, seizure, tingling, tremors, weakness, other Endocrine: Denies: no symptoms, excessive sweating, flushing, intolerance to cold, intolerance to heat, increased hunger, increased thirst, increased urine, unexplained weight gain, unexplained weight loss, other Allergies: Coded Allergies: PENICILLINS (Verified Allergy, Unknown, 04/23/20) Tolerated Cefepime 04/23/20 Subjective 04/26 seen by renal, is for hd tomorrow, labs noted, plts are lower 04/27 labs noted, no bleeding, for hd, hgb currently lower at 9 04/28 meds noted, no bleeding, carlo rn, permcath to [facility] Objective Objective Current Medications Medications (Trade) Dose Ordered Sig/Jesus Route PRN Reason Start Time Stop Time Status Last Admin Dose Admin Acetaminophen/ Hydrocodone Bitart (Garvin 5/325) 1 tab Q4H PRN ORAL Pain 3-6 04/27/20 08:30 05/04/20 08:29 04/27/20 08:39 Aspirin (ASA) 81 mg DAILY ORAL 04/26/20 09:00 06/08/20 08:59 04/28/20 08:54 Atorvastatin Calcium (Lipitor) 40 mg BEDTIME ORAL 04/25/20 21:00 07/24/20 20:59 04/27/20 22:06 Cefepime HCl 1 gm/ Dextrose 55 ml @ 110 mls/hr Q24H IVPB 04/26/20 18:00 05/02/20 17:59 04/26/20 18:21 Chlorhexidine Gluconate (Cira-Hex 2%) 1 applic DAILY@2000 TOPIC 04/25/20 20:00 07/22/20 19:59 04/27/20 20:00 Dextrose 1,000 ml @ 40 mls/hr Q24H IV 04/28/20 01:00 05/28/20 00:59 04/28/20 02:00 Docusate Sodium (Colace) 100 mg TID ORAL 04/26/20 09:00 05/24/20 08:59 04/28/20 08:54 Epoetin Jose (Epoetin Jose(ESRD on dialysis)) 4,000 unit SUN-SUN-SUN SUBQ 04/28/20 21:00 07/27/20 20:59 Folic Acid (Folate) 1 mg DAILY ORAL 04/26/20 09:00 05/26/20 08:59 04/28/20 08:54 Hydralazine HCl (Apresoline) 25 mg Q4H PRN ORAL For blood pressure over 160 sy 04/25/20 19:37 07/24/20 19:36 Hydromorphone HCl (Dilaudid) 0.5 mg Q4H PRN SUBQ Pain 7-04/27/20 08:45 05/04/20 08:44 04/28/20 09:02 Midodrine (Pro-Amatine) 10 mg THREE TIMES A DAY ORAL 04/26/20 10:30 07/25/20 10:29 04/28/20 08:54 Ondansetron HCl (Zofran) 4 mg Q6H PRN IVP Nausea & Vomiting 04/25/20 19:38 05/25/20 19:37 Pantoprazole (Protonix) 40 mg EVERY 12 HOURS ORAL 04/25/20 21:00 05/24/20 08:59 04/28/20 08:54 Sevelamer Carbonate (Renvela) 800 mg THREE TIMES A DAY ORAL 04/26/20 09:00 07/23/20 08:59 04/28/20 08:54 Sodium Chloride 250 ml @ 999 mls/hr Q24HRS PRN IVPB For hypotension 04/26/20 00:00 05/26/20 00:00 Vancomycin HCl (Vanco pharmacy to dose) 1 ea DAILY PRN MISC Per rx protocol 04/26/20 09:00 05/23/20 19:14 Vancomycin HCl 1 gm/Dextrose 275 ml @ 183.708 mls/hr ONCE IVPB 04/28/20 12:00 04/28/20 14:00 Last 24 Hour Vital Signs Date Time Temp Pulse Resp B/P (MAP) Pulse Ox O2 Delivery O2 Flow Rate FiO2 04/28/20 11:03 64 11 130/54 (79) 98 04/28/20 09:40 98.5 04/28/20 09:00 62 11 157/71 (99) 97 04/28/20 08:00 62 13 139/55 (83) 99 04/28/20 08:00 60 04/28/20 07:00 60 11 158/60 (92) 98 04/28/20 06:00 63 16 162/69 (100) 99 04/28/20 05:00 60 10 139/61 (87) 98 04/28/20 04:00 98.5 60 11 145/60 (88) 97 04/28/20 04:00 68 04/28/20 03:00 63 11 143/57 (85) 100 04/28/20 02:00 73 16 155/63 (93) 100 04/28/20 01:00 64 13 157/71 (99) 100 04/28/20 00:00 62 04/28/20 00:00 98.6 63 11 136/56 (82) 100 04/27/20 23:00 70 11 151/61 (91) 100 04/27/20 22:00 70 11 154/50 (84) 100 04/27/20 21:00 62 12 149/61 (90) 100 04/27/20 20:00 60 04/27/20 20:00 98.6 60 11 134/52 (79) 04/27/20 19:15 60 11 142/63 (89) 100 04/27/20 19:10 60 10 143/53 (83) 100 04/27/20 19:05 60 10 143/60 (87) 100 04/27/20 19:00 60 12 139/59 (85) 100 04/27/20 18:00 60 10 153/55 (87) 100 04/27/20 17:00 66 12 150/70 (96) 100 04/27/20 16:04 Nasal Cannula 2.0 04/27/20 16:00 98.9 60 10 120/60 (80) 100 04/27/20 16:00 60 04/27/20 15:30 60 11 125/64 (84) 100 04/27/20 15:00 61 10 147/59 (88) 100 04/27/20 14:00 60 10 130/62 (84) 100 04/27/20 13:04 60 12 134/59 (84) 100 04/27/20 12:00 60 10 133/60 (84) 100 04/27/20 12:00 98.7 60 133/60 (84) 04/27/20 12:00 60 04/27/20 12:00 Nasal Cannula 2.0 04/27/20 11:00 60 15 92/49 (63) 100 04/27/20 10:00 60 10 115/50 (71) 100 04/27/20 09:00 60 9 130/62 (84) 100 04/27/20 08:00 98.6 60 8 97/46 (63) 100 04/27/20 08:00 60 04/27/20 08:00 Nasal Cannula 2.0 04/27/20 07:00 60 8 114/42 (66) 100 04/27/20 06:40 100 Nasal Cannula 2.0 28 04/27/20 06:00 60 10 117/46 (69) 100 04/27/20 05:00 60 10 108/46 (66) 100 04/27/20 04:00 60 04/27/20 04:00 Nasal Cannula 2.0 04/27/20 04:00 98.4 61 10 126/49 (74) 100 04/27/20 03:00 60 10 116/50 (72) 100 04/27/20 02:00 60 10 109/51 (70) 100 04/27/20 01:00 60 10 118/55 (76) 100 04/27/20 00:00 60 04/27/20 00:00 Nasal Cannula 3.0 04/27/20 00:00 97.9 60 10 123/52 (75) 100 04/26/20 23:00 60 10 125/53 (77) 100 04/26/20 22:00 60 12 131/59 (83) 100 04/26/20 21:00 60 12 118/54 (75) 100 04/26/20 20:00 60 04/26/20 20:00 98.3 60 12 123/56 (78) 100 04/26/20 20:00 Nasal Cannula 3.0 04/26/20 19:00 60 12 53/52 (52) 100 04/26/20 17:00 60 13 116/52 (73) 100 04/26/20 16:00 60 04/26/20 16:00 Nasal Cannula 3.0 04/26/20 16:00 60 12 104/50 (68) 100 04/26/20 15:00 60 12 107/57 (74) 100 04/26/20 14:00 60 11 98/46 (63) 100 04/26/20 13:00 60 7 100/46 (64) 100 04/26/20 12:00 Nasal Cannula 3.0 04/26/20 12:00 97.0 60 10 87/52 (64) 100 04/26/20 12:00 60 Intake and Output 04/27/20 04/28/20 19:00 07:00 Intake Total 30 ml 200 ml Balance 30 ml 200 ml Intake Oral 30 ml IV Total 200 ml Labs Test 04/25/20 12:07 04/25/20 12:52 7/19/20 12:55 04/25/20 14:20 Arterial Blood pH 7.318 (7.350-7.450) Arterial Blood Partial Pressure CO2 51.3 mmHg (35.0-45.0) Arterial Blood Partial Pressure O2 70.3 mmHg (75.0-100.0) Arterial Blood HCO3 25.7 mmol/L (22.0-26.0) Arterial Blood Oxygen Saturation 91.7 % (95-100) Arterial Blood Base Excess -0.8 (-2-2) Ari Test Positive POC Whole Blood Glucose 169 MG/DL (74-106) White Blood Count 7.0 K/UL (4.8-10.8) Red Blood Count 3.47 M/UL (4.20-5.40) Hemoglobin 10.2 G/DL (12.0-16.0) Hematocrit 33.7 % (37.0-47.0) Mean Corpuscular Volume 97 FL (80-99) Mean Corpuscular Hemoglobin 29.5 PG (27.0-31.0) Mean Corpuscular Hemoglobin Concent 30.4 G/DL (32.0-36.0) Red Cell Distribution Width 16.4 % (11.6-14.8) Platelet Count 106 K/UL (150-450) Mean Platelet Volume 9.1 FL (6.5-10.1) Neutrophils (%) (Auto) 81.2 % (45.0-75.0) Lymphocytes (%) (Auto) 9.1 % (20.0-45.0) Monocytes (%) (Auto) 7.3 % (1.0-10.0) Eosinophils (%) (Auto) 1.4 % (0.0-3.0) Basophils (%) (Auto) 1.1 % (0.0-2.0) Sodium Level 139 MMOL/L (136-145) Potassium Level 6.1 MMOL/L (3.5-5.1) 6.3 MMOL/L (3.5-5.1) Chloride Level 101 MMOL/L (98-107) Carbon Dioxide Level 27 MMOL/L (21-32) Anion Gap 11 mmol/L (5-15) Blood Urea Nitrogen 65 mg/dL (7-18) Creatinine 8.3 MG/DL (0.55-1.30) Estimat Glomerular Filtration Rate 5.7 mL/min (>60) Glucose Level 188 MG/DL (74-106) Calcium Level 8.9 MG/DL (8.5-10.1) Total Bilirubin 0.3 MG/DL (0.2-1.0) Aspartate Amino Transf (AST/SGOT) 24 U/L (15-37) Alanine Aminotransferase (ALT/SGPT) 22 U/L (12-78) Alkaline Phosphatase 64 U/L (46-116) Troponin I 0.059 ng/mL (0.000-0.056) Total Protein 6.2 G/DL (6.4-8.2) Albumin 2.8 G/DL (3.4-5.0) Globulin 3.4 g/dL Albumin/Globulin Ratio 0.8 (1.0-2.7) Test 04/25/20 17:00 04/26/20 04:10 04/27/20 05:00 04/28/20 03:20 Troponin I 0.084 ng/mL (0.000-0.056) 0.014 ng/mL (0.000-0.056) White Blood Count 5.6 K/UL (4.8-10.8) 5.5 K/UL (4.8-10.8) 5.6 K/UL (4.8-10.8) Red Blood Count 3.30 M/UL (4.20-5.40) 3.02 M/UL (4.20-5.40) 2.97 M/UL (4.20-5.40) Hemoglobin 9.9 G/DL (12.0-16.0) 9.0 G/DL (12.0-16.0) 9.0 G/DL (12.0-16.0) Hematocrit 31.7 % (37.0-47.0) 28.8 % (37.0-47.0) 28.1 % (37.0-47.0) Mean Corpuscular Volume 96 FL (80-99) 95 FL (80-99) 95 FL (80-99) Mean Corpuscular Hemoglobin 30.0 PG (27.0-31.0) 29.8 PG (27.0-31.0) 30.2 PG (27.0-31.0) Mean Corpuscular Hemoglobin Concent 31.2 G/DL (32.0-36.0) 31.2 G/DL (32.0-36.0) 31.9 G/DL (32.0-36.0) Red Cell Distribution Width 16.1 % (11.6-14.8) 15.8 % (11.6-14.8) 15.4 % (11.6-14.8) Platelet Count 92 K/UL (150-450) 103 K/UL (150-450) 133 K/UL (150-450) Mean Platelet Volume 9.2 FL (6.5-10.1) 9.1 FL (6.5-10.1) 9.4 FL (6.5-10.1) Neutrophils (%) (Auto) % (45.0-75.0) 65.3 % (45.0-75.0) 64.9 % (45.0-75.0) Lymphocytes (%) (Auto) % (20.0-45.0) 14.8 % (20.0-45.0) 16.8 % (20.0-45.0) Monocytes (%) (Auto) % (1.0-10.0) 9.5 % (1.0-10.0) 10.8 % (1.0-10.0) Eosinophils (%) (Auto) % (0.0-3.0) 8.6 % (0.0-3.0) 5.5 % (0.0-3.0) Basophils (%) (Auto) % (0.0-2.0) 1.8 % (0.0-2.0) 1.9 % (0.0-2.0) Differential Total Cells Counted 100 Neutrophils % (Manual) 66 % (45-75) Lymphocytes % (Manual) 21 % (20-45) Monocytes % (Manual) 7 % (1-10) Eosinophils % (Manual) 6 % (0-3) Basophils % (Manual) 0 % (0-2) Band Neutrophils 0 % (0-8) Platelet Estimate Decreased Platelet Morphology Normal Hypochromasia 1+ Anisocytosis 1+ Sodium Level 140 MMOL/L (136-145) 135 MMOL/L (136-145) 137 MMOL/L (136-145) Potassium Level 5.0 MMOL/L (3.5-5.1) 5.6 MMOL/L (3.5-5.1) 4.6 MMOL/L (3.5-5.1) Chloride Level 101 MMOL/L (98-107) 97 MMOL/L (98-107) 97 MMOL/L (98-107) Carbon Dioxide Level 25 MMOL/L (21-32) 28 MMOL/L (21-32) 27 MMOL/L (21-32) Anion Gap 14 mmol/L (5-15) 10 mmol/L (5-15) 14 mmol/L (5-15) Blood Urea Nitrogen 49 mg/dL (7-18) 56 mg/dL (7-18) 36 mg/dL (7-18) Creatinine 6.3 MG/DL (0.55-1.30) 7.7 MG/DL (0.55-1.30) 5.5 MG/DL (0.55-1.30) Estimat Glomerular Filtration Rate 7.9 mL/min (>60) 6.3 mL/min (>60) 9.2 mL/min (>60) Glucose Level 100 MG/DL (74-106) 117 MG/DL (74-106) 94 MG/DL (74-106) Calcium Level 9.3 MG/DL (8.5-10.1) 9.1 MG/DL (8.5-10.1) 8.9 MG/DL (8.5-10.1) Phosphorus Level 4.1 MG/DL (2.5-4.9) 4.9 MG/DL (2.5-4.9) 4.1 MG/DL (2.5-4.9) Magnesium Level 2.3 MG/DL (1.8-2.4) 2.3 MG/DL (1.8-2.4) 2.2 MG/DL (1.8-2.4) Total Bilirubin 0.3 MG/DL (0.2-1.0) 0.4 MG/DL (0.2-1.0) 0.5 MG/DL (0.2-1.0) Aspartate Amino Transf (AST/SGOT) 21 U/L (15-37) 25 U/L (15-37) 26 U/L (15-37) Alanine Aminotransferase (ALT/SGPT) 24 U/L (12-78) 24 U/L (12-78) 22 U/L (12-78) Alkaline Phosphatase 56 U/L (46-116) 54 U/L (46-116) 57 U/L (46-116) Lactate Dehydrogenase 310 U/L (81-234) Total Protein 6.3 G/DL (6.4-8.2) 6.4 G/DL (6.4-8.2) 6.4 G/DL (6.4-8.2) Albumin 3.3 G/DL (3.4-5.0) 2.8 G/DL (3.4-5.0) 2.8 G/DL (3.4-5.0) Globulin 3.0 g/dL 3.6 g/dL Albumin/Globulin Ratio 1.1 (1.0-2.7) 0.8 (1.0-2.7) Random Vancomycin Level 20.4 ug/mL 16.0 ug/mL HIV (1&2) Antibody Rapid Negative (NEGATIVE) Direct Bilirubin 0.1 MG/DL (0.0-0.3) Hepatitis A IgM Antibody Negative (Negative) Hepatitis B Surface Antigen Negative (Negative) Hepatitis B Core IgM Antibody Negative (Negative) Hepatitis C Antibody <0.1 s/co ratio Uric Acid 4.4 MG/DL (2.6-7.2) C-Reactive Protein, Quantitative 14.1 mg/dL (0.00-0.90) Height (Feet): 5 Height (Inches): 5.00 Weight (Pounds): 259 Objective Physical Exam Vitals: reviewed Gen: no apparent distress, alert, non-toxic, obese, Chronically Ill HEENT: hearing grossly normal, normal voice Neck: full range of motion Resp: chest non-tender, lungs clear, normal breath sounds, no respiratory distress, permacath left side Cardiovascular: regular rate, rhythm, no edema, other - slow cap refill time of lower extremities bilaterally GI: normal bowel sounds, non tender, soft Msk: normal range of motion, non-tender, other - PT. wheel chair bound Neuro: alert, oriented x3, responsive, speech normal, sensory deficit Psychiatric: judgement/insight normal Skin: Decubitus/Ulcer - 2cm in diameter with a deeper necrotic 0.6cm center. erythema- pressure sore on tailbone. no skin break down Husam Byers MD Apr 28, 2020 11:51
--- NOTE | 2020-04-28 11:57 | Nephrology Progress Note ---
Assessment/Plan Problem List: (1) ESRD (end stage renal disease) (2) Pacemaker (3) Diabetic nephropathy (4) Cellulitis of left foot (5) Anemia in chronic kidney disease (CKD) (6) History of CVA (cerebrovascular accident) (7) History of atrial fibrillation Plan April 28: Dialyzed yesterday. Will remove permacath today. Will do surveillance blood culture. Will aim to put catheter back in 48 hours. April 27: Due for dialysis today. Potassium 5.6. Will give Kayexalate. Blood pressure better under control. Continue per consultants. Also as per ID recommendation based on the blood culture results will remove the permacath tomorrow and will send the tip for culture. Will aim to have another catheter in 48 hours later. In the interim we will do surveillance blood culture. Patient received dialysis last evening for hyperkalemia. Patient had to be transferred to ICU for low blood pressure despite of multiple fluid challenges. Currently in ICU blood pressure 85-90 systolic. Patient on no blood pressure medication. Troponin I slightly elevated. 2D echocardiogram pending. Will start midodrine. Will aim to dialyze tomorrow. Monitor H&H and renal parameters and electrolytes Antibiotic per ID Pain medication adjusted Continue per consultants Subjective ROS Limited/Unobtainable: No Constitutional: Reports: malaise Objective Objective Last 24 Hour Vital Signs Date Time Temp Pulse Resp B/P (MAP) Pulse Ox O2 Delivery O2 Flow Rate FiO2 04/28/20 11:03 64 11 130/54 (79) 98 04/28/20 09:40 98.5 04/28/20 09:00 62 11 157/71 (99) 97 04/28/20 08:00 62 13 139/55 (83) 99 04/28/20 08:00 60 04/28/20 07:00 60 11 158/60 (92) 98 04/28/20 06:00 63 16 162/69 (100) 99 04/28/20 05:00 60 10 139/61 (87) 98 04/28/20 04:00 98.5 60 11 145/60 (88) 97 04/28/20 04:00 68 04/28/20 03:00 63 11 143/57 (85) 100 04/28/20 02:00 73 16 155/63 (93) 100 04/28/20 01:00 64 13 157/71 (99) 100 04/28/20 00:00 62 04/28/20 00:00 98.6 63 11 136/56 (82) 100 04/27/20 23:00 70 11 151/61 (91) 100 04/27/20 22:00 70 11 154/50 (84) 100 04/27/20 21:00 62 12 149/61 (90) 100 04/27/20 20:00 60 04/27/20 20:00 98.6 60 11 134/52 (79) 04/27/20 19:15 60 11 142/63 (89) 100 04/27/20 19:10 60 10 143/53 (83) 100 04/27/20 19:05 60 10 143/60 (87) 100 04/27/20 19:00 60 12 139/59 (85) 100 04/27/20 18:00 60 10 153/55 (87) 100 04/27/20 17:00 66 12 150/70 (96) 100 04/27/20 16:04 Nasal Cannula 2.0 04/27/20 16:00 98.9 60 10 120/60 (80) 100 04/27/20 16:00 60 04/27/20 15:30 60 11 125/64 (84) 100 04/27/20 15:00 61 10 147/59 (88) 100 04/27/20 14:00 60 10 130/62 (84) 100 04/27/20 13:04 60 12 134/59 (84) 100 04/27/20 12:00 60 10 133/60 (84) 100 04/27/20 12:00 98.7 60 133/60 (84) 04/27/20 12:00 60 04/27/20 12:00 Nasal Cannula 2.0 Intake and Output 04/27/20 04/28/20 19:00 07:00 Intake Total 30 ml 200 ml Balance 30 ml 200 ml Intake Oral 30 ml IV Total 200 ml Laboratory Tests 04/28/20 03:20: White Blood Count 5.6, Red Blood Count 2.97L, Hemoglobin 9.0L, Hematocrit 28.1L , Mean Corpuscular Volume 95, Mean Corpuscular Hemoglobin 30.2, Mean Corpuscular Hemoglobin Concent 31.9L, Red Cell Distribution Width 15.4H, Platelet Count 133L, Mean Platelet Volume 9.4, Neutrophils (%) (Auto) 64.9, Lymphocytes (%) (Auto) 16.8L, Monocytes (%) (Auto) 10.8H, Eosinophils (%) (Auto ) 5.5H, Basophils (%) (Auto) 1.9, Sodium Level 137, Potassium Level 4.6, Chloride Level 97L, Carbon Dioxide Level 27, Anion Gap 14, Blood Urea Nitrogen 36H, Creatinine 5.5H, Estimat Glomerular Filtration Rate 9.2, Glucose Level 94, Uric Acid 4.4, Calcium Level 8.9, Phosphorus Level 4.1, Magnesium Level 2.2, Total Bilirubin 0.5, Aspartate Amino Transf (AST/SGOT) 26, Alanine Aminotransferase (ALT/SGPT) 22, Alkaline Phosphatase 57, Troponin I 0.014, C- Reactive Protein, Quantitative 14.1H, Total Protein 6.4, Albumin 2.8L, Globulin 3.6, Albumin/Globulin Ratio 0.8L, Random Vancomycin Level 16.0 Height (Feet): 5 Height (Inches): 5.00 Weight (Pounds): 259 General Appearance: no apparent distress Cardiovascular: normal rate Respiratory/Chest: decreased breath sounds, other Abdomen: soft Manas Stephenson MD Apr 28, 2020 11:57
[2020-04-28] MEDS ORDERED: Vancomycin 1gm in D5W 275ml IVPB SCH (12:00)
--- NOTE | 2020-04-28 12:06 | NUR ---
NURSE NOTES: per Dr. Stephenson it's ok for the patient to eat, does not need to remain NPO for permacath removal. received verbal order for renal diet.
--- NOTE | 2020-04-28 13:04 | NUR ---
CASE MANAGEMENT: REVIEW SI: CELLULITIS LEFT FOOT . ESRD on HD . HYPOTENSION T 98.5 HR 60 RR 10 BP 130/54 SAT 97% NC/2L H/H9.0/28.1 BUN 36 CR 5.5 IS: VANCOMYCIN IV X1 CEFEPIME IV Q24HR EPOETIN SUBQ QMWF MIDODRINE PO THREE TIMES A DAY ELIQUIS ORAL BID DECUBITUS WOUND CARE PRN HD NEEDED ICU STATUS DCP: PATIENT IS FROM HOME
--- NOTE | 2020-04-28 13:08 | NUR ---
NURSE NOTES: Colten Beltran updated and received telephone consent for the removal of permacath, Colten Beltran spoke to the patient on the phone.
--- NOTE | 2020-04-28 13:15 | NUR ---
NURSE NOTES: patient taken down to nuclear medicine for bone scan with RN. patient tolerated procedure without complication.
--- NOTE | 2020-04-28 14:09 | NUR ---
NM 3 Phase Bone Scan complete.
--- NOTE | 2020-04-28 14:30 | NUR ---
NURSE NOTES: right upper chest permacath removed without complication by Dr. Darling. patient tolerated procedure without complication. bleeding is controlled. patient was medicated with prn medication.
--- NOTE | 2020-04-28 15:05 | Diagnostic Imaging Report ---
Indication: Left heel wound Technique: IV administration 24.7 mCi 99m technetium MDP. Flow, blood pool, and static images were obtained of the bilateral feet and ankles. Comparison: Reference made to plain radiograph of the left foot dated 04/24/2020 Findings: Flow images demonstrate overall asymmetrically increased flow in the right foot, particularly in the region of the calcaneal tuberosity, midfoot and forefoot. There is equivocally slightly increased flow in the left heel. Blood pool images likewise demonstrate increased activity on the right, involving the midfoot and forefoot. Very subtle slightly increased activity is seen in the region of the left calcaneal tuberosity. On the static images, there is very mildly prominent activity in the left calcaneal tuberosity, but this is actually less striking than on the contralateral side. Ill-defined increased activity is seen in the left midfoot and in the right midfoot and forefoot. There is some increased activity in the region of the right metatarsophalangeal joint which is probably degenerative in nature. Impression: No significant abnormality in the left heel to suggest osteomyelitis of the location of clinically described left heel wound. Mild bilateral abnormal uptake, as detailed above, likely reflecting degenerative changes
--- NOTE | 2020-04-28 16:12 | Brief Operative Note ---
Immediate Post Operative Note Operative Note Pre-op Diagnosis: suspected catheter infection Procedure: permacath removal Post-op Diagnosis: same as pre-op Specimen: yes - Catheter tip Complications: none Fluids: none Implant(s) used?: No Mello Chaudhry MD Apr 28, 2020 16:12
--- NOTE | 2020-04-28 16:39 | NUR ---
NURSE NOTES: patient is resting comfortably in bed. patient is asleep with eyes closed and snoring from time to time. patient on a radiation monitor, vitals stable.
--- NOTE | 2020-04-28 16:45 | Diagnostic Imaging Report ---
Indications: Fever, suspected catheter infection Technique: Sterile prepping and draping right chest. Local anesthesia with 1% lidocaine. Chest dermatotomy extended. Using blunt dissection, the cuff of the catheter was freed from the surrounding soft tissues, and the catheter was removed. Catheter tip was cut off and sent to the lab for microbial analysis. Digital fluoroscopic spot radiographs document position of the catheter preremoval, and document complete removal of the catheter on the post removal images. The patient tolerated the procedure well, without immediate complication. Total fluoroscopy time 41.2 seconds. Total dose 7 mGy Number of images: 2 Comparison: None. Findings: Preremoval images demonstrate a tunneled dialysis catheter in the expected position. Completion digital fluoroscopy spot radiograph documents complete removal of the tunneled dialysis catheter. Impression: Successful removal of tunneled dialysis catheter, as noted.
--- NOTE | 2020-04-28 16:58 | NUR ---
RADIOLOGY NOTE: TUNNELED DIALYSIS CATHETER REMOVED BY DR. MERARI HANKINS. FA
--- NOTE | 2020-04-28 17:36 | NUR ---
NURSE NOTES: no bleeding or discharge noted on the permacath site. dressing dry and intact.
--- NOTE | 2020-04-28 17:36 | NUR ---
NURSE NOTES: daughter Heaven EllsworthChristophe updated that patient will be transferred to .
[2020-04-28] MEDS: Cefepime HCl 1 GM in D5W 55 ML IVPB SCH (17:40)
--- NOTE | 2020-04-28 18:28 | Pulmonology Progress Note ---
Subjective ROS Limited/Unobtainable: No Interval Events: Transferred out of ICU; much better now Constitutional: Reports: no symptoms HEENT: Repors: no symptoms Respiratory: Reports: no symptoms Cardiovascular: Reports: no symptoms Allergies: Coded Allergies: PENICILLINS (Verified Allergy, Unknown, 04/23/20) Tolerated Cefepime 04/23/20 Objective Last 24 Hour Vital Signs Date Time Temp Pulse Resp B/P (MAP) Pulse Ox O2 Delivery O2 Flow Rate FiO2 04/28/20 18:00 71 12 160/73 (102) 96 04/28/20 17:00 60 13 157/81 (106) 98 04/28/20 16:00 97.8 60 12 131/72 (91) 97 04/28/20 16:00 60 04/28/20 15:05 98.5 04/28/20 15:00 60 9 127/62 (83) 97 04/28/20 13:00 63 8 143/68 (93) 97 04/28/20 12:00 60 04/28/20 12:00 60 9 130/56 (80) 98 04/28/20 11:03 64 11 130/54 (79) 98 04/28/20 09:00 62 11 157/71 (99) 97 04/28/20 08:00 62 13 139/55 (83) 99 04/28/20 08:00 60 04/28/20 07:00 60 11 158/60 (92) 98 04/28/20 06:00 63 16 162/69 (100) 99 04/28/20 05:00 60 10 139/61 (87) 98 04/28/20 04:00 98.5 60 11 145/60 (88) 97 04/28/20 04:00 68 04/28/20 03:00 63 11 143/57 (85) 100 04/28/20 02:00 73 16 155/63 (93) 100 04/28/20 01:00 64 13 157/71 (99) 100 04/28/20 00:00 62 04/28/20 00:00 98.6 63 11 136/56 (82) 100 04/27/20 23:00 70 11 151/61 (91) 100 04/27/20 22:00 70 11 154/50 (84) 100 04/27/20 21:00 62 12 149/61 (90) 100 04/27/20 20:00 60 04/27/20 20:00 98.6 60 11 134/52 (79) 04/27/20 19:15 60 11 142/63 (89) 100 04/27/20 19:10 60 10 143/53 (83) 100 04/27/20 19:05 60 10 143/60 (87) 100 04/27/20 19:00 60 12 139/59 (85) 100 Intake and Output 04/27/20 04/28/20 19:00 07:00 Intake Total 30 ml 200 ml Balance 30 ml 200 ml Intake Oral 30 ml IV Total 200 ml General Appearance: no acute distress HEENT: normocephalic Respiratory: chest wall non-tender Cardiovascular: normal peripheral pulses Abdomen: soft, non tender Laboratory Tests 04/28/20 03:20: White Blood Count 5.6, Red Blood Count 2.97L, Hemoglobin 9.0L, Hematocrit 28.1L , Mean Corpuscular Volume 95, Mean Corpuscular Hemoglobin 30.2, Mean Corpuscular Hemoglobin Concent 31.9L, Red Cell Distribution Width 15.4H, Platelet Count 133L, Mean Platelet Volume 9.4, Neutrophils (%) (Auto) 64.9, Lymphocytes (%) (Auto) 16.8L, Monocytes (%) (Auto) 10.8H, Eosinophils (%) (Auto ) 5.5H, Basophils (%) (Auto) 1.9, Sodium Level 137, Potassium Level 4.6, Chloride Level 97L, Carbon Dioxide Level 27, Anion Gap 14, Blood Urea Nitrogen 36H, Creatinine 5.5H, Estimat Glomerular Filtration Rate 9.2, Glucose Level 94, Uric Acid 4.4, Calcium Level 8.9, Phosphorus Level 4.1, Magnesium Level 2.2, Total Bilirubin 0.5, Aspartate Amino Transf (AST/SGOT) 26, Alanine Aminotransferase (ALT/SGPT) 22, Alkaline Phosphatase 57, Troponin I 0.014, C- Reactive Protein, Quantitative 14.1H, Total Protein 6.4, Albumin 2.8L, Globulin 3.6, Albumin/Globulin Ratio 0.8L, Random Vancomycin Level 16.0 Current Medications Medications (Trade) Dose Ordered Sig/Jesus Route PRN Reason Start Time Stop Time Status Last Admin Dose Admin Acetaminophen/ Hydrocodone Bitart ([place] 5/325) 1 tab Q4H PRN ORAL Pain 3-6 04/27/20 08:30 05/04/20 08:29 04/27/20 08:39 Aspirin (ASA) 81 mg DAILY ORAL 04/26/20 09:00 06/08/20 08:59 04/28/20 08:54 Atorvastatin Calcium (Lipitor) 40 mg BEDTIME ORAL 04/25/20 21:00 07/24/20 20:59 04/27/20 22:06 Cefepime HCl 1 gm/ Dextrose 55 ml @ 110 mls/hr Q24H IVPB 04/26/20 18:00 05/02/20 17:59 04/28/20 17:40 Chlorhexidine Gluconate (Cira-Hex 2%) 1 applic DAILY@2000 TOPIC 04/25/20 20:00 07/22/20 19:59 04/27/20 20:00 Dextrose 1,000 ml @ 40 mls/hr Q24H IV 04/28/20 01:00 05/28/20 00:59 04/28/20 02:00 Docusate Sodium (Colace) 100 mg TID ORAL 04/26/20 09:00 05/24/20 08:59 04/28/20 17:43 Epoetin Jose (Epoetin Jose(ESRD on dialysis)) 4,000 unit SUN- SUBQ 04/28/20 21:00 07/27/20 20:59 Folic Acid (Folate) 1 mg DAILY ORAL 04/26/20 09:00 05/26/20 08:59 04/28/20 08:54 Hydralazine HCl (Apresoline) 25 mg Q4H PRN ORAL For blood pressure over 160 sy 04/25/20 19:37 07/24/20 19:36 Hydromorphone HCl (Dilaudid) 0.5 mg Q4H PRN SUBQ Pain 7-10 04/27/20 08:45 05/04/20 08:44 04/28/20 13:11 Midodrine (Pro-Amatine) 10 mg THREE TIMES A DAY ORAL 04/26/20 10:30 07/25/20 10:29 04/28/20 12:30 Ondansetron HCl (Zofran) 4 mg Q6H PRN IVP Nausea & Vomiting 04/25/20 19:38 05/25/20 19:37 Pantoprazole (Protonix) 40 mg EVERY 12 HOURS ORAL 04/25/20 21:00 05/24/20 08:59 04/28/20 08:54 Sevelamer Carbonate (Renvela) 800 mg THREE TIMES A DAY ORAL 04/26/20 09:00 07/23/20 08:59 04/28/20 17:43 Vancomycin HCl ([facility] pharmacy to dose) 1 ea DAILY PRN MISC Per rx protocol 04/26/20 09:00 05/23/20 19:14 Assessment/Plan Assessment/Plan ASSESSMENT: 1. Mild pulmonary edema 2. Decubitus wound, 3. End-stage renal disease, on temporary PermCath hemodialysis access. 2. Paroxysmal atrial fibrillation, 3. Diabetes type 2. 4. Hypertension. 5. Hyperlipidemia. 6. CVA-history. 7. Dementia. Plan: HD per nephrology Needs local wound care Will continue oxygen and pulmonary hygiene Broad spectrum abx HD per renal; Suraj Henriquez MD Apr 28, 2020 18:28
--- NOTE | 2020-04-28 18:31 | NUR ---
HAND-OFF: Report given to Betina BELTRAN. patient transferred to with all of her belongings endorsed all plan of care to Betina BELTRAN. wound care photos taken by Betina BELTRAN with RN assistance at bedside.
--- NOTE | 2020-04-28 18:47 | NUR ---
NURSE NOTES: RECEIVED PATIENT A/A/OX1/2, FORGETFULNESS. PERSONAL BELONGINGS REVIEWED AND NOTED. WOUND ASSESSED AND PHOTO TAKEN AND UPLOADED. DRSG DRY AND INTACT ON THE S/P REMOVAL OF THE PERMACATH. PIV PATENT AND INTACT. IVF INFUSING WELL. ON P200 MATTRESS FOR WOUND ASSESSMENT. ON O2 2L VIA NC. BED IS IN THE LOWEST POSITION. SIDERAILS ARE UP X3. CALL LIGHT IS WITHIN REACH. WILL CONT TO MONITOR.
--- NOTE | 2020-04-28 19:10 | NUR ---
HAND-OFF: Report given to Mckinley.
--- NOTE | 2020-04-28 19:11 | NUR ---
NURSE NOTES: Received hand-off report from Karin Helton RN. entry level staff accountant is in place, bed in lowest and locked position, bed alarm on, call light within reach. Patient is breathing even and unlabored. No changes in LOC noted. Patient alert and oriented x1, patient is resting in bed, semi-0
[2020-04-28] MEDS ORDERED: HydrALAZINE 25mg tab ORAL PRN (19:45)
[2020-04-28] MEDS ORDERED: Hydromorphone 0.5mg/0.5ml inj SUBQ PRN (19:45)
--- NOTE | 2020-04-28 19:45 | NUR ---
NURSE NOTES: Obtained consent via telephone co-signed by VIKAS Dong. Daughter, Ruby Verduzco, provided verbal consent over the phone for the PICC placement tomorrow.
--- NOTE | 2020-04-28 19:59 | NUR ---
NURSE NOTES: Dr. Banegas gave telephone order for subcutaneous heparin for DVT prophylaxis 5000 units (1 mL) two times a day. Noted and will carry out.
[2020-04-28] MEDS: Atorvastatin 20mg tab ORAL SCH (20:29)
[2020-04-28] MEDS: Dyna-Hex 2% Top Sol 2oz TOPIC SCH (20:31)
[2020-04-28] MEDS: Heparin 5000 units/ml inj SUBQ SCH (20:32)
[2020-04-28] MEDS ORDERED: Epoetin Alfa-EPBX(ESRD on dialysis)4000 units/ml vial SUBQ SCH ×2 (21:00)
[2020-04-29] VITALS (12 sets, daily range): BP systolic 119–150; BP diastolic 54–77
--- NOTE | 2020-04-29 05:54 | NUR ---
NURSE NOTES: Left a voicemail message regarding insulin order for this diabetic patient.
--- NOTE | 2020-04-29 06:18 | Hematology/Onc Progress Note ---
Assessment/Plan Assessment/Plan Assessment and Recs # Thombocytopenia is likely 2/2 Cellulitis of left foot --> as per id --> abx started vanc --> plt trend 150-->102-->92-->103-->133 --> hold anticoag if plt <50 --> abx vanc/cefepime # Anemia is likely due to esrd, has been under care of Dr. Stephenson --> continue hd as needed --> with permacath in place on chest, no infection --> EPOGEN 4k dose 3 times a week started --> hgb trend 12-->9 # Hypercoagulable disorder with afib hx --> on eliquis which has been started --> no bleeding noted # ESRD (end stage renal disease) --> per renal care # Diabetic nephropathy --> wound care and endo recs --> a1c goal <8 # Dvt ppx eliquis CARLO Rn and appreciate consultation Subjective Constitutional: Denies: no symptoms, chills, fever, malaise, weakness, other HEENT: Denies: no symptoms, eye pain, blurred vision, tearing, double vision, ear pain, ear discharge, nose pain, nose congestion, throat pain, throat swelling, mouth pain, mouth swelling, other Cardiovascular: Denies: no symptoms, chest pain, edema, irregular heart rate, lightheadedness, palpitations, syncope, other Respiratory: Denies: no symptoms, cough, shortness of breath, SOB with excertion, SOB at rest, sputum, wheezing, other Gastrointestinal/Abdominal: Denies: no symptoms, abdomen distended, abdominal pain, black stools, tarry stools, blood in stool, constipated, diarrhea, difficulty swallowing, nausea, poor appetite, poor fluid intake, rectal bleeding , vomiting, other Genitourinary: Denies: no symptoms, burning, discharge, frequency, flank pain, hematuria, incontinence, pain, urgency, other Endocrine: Denies: no symptoms, excessive sweating, flushing, intolerance to cold, intolerance to heat, increased hunger, increased thirst, increased urine, unexplained weight gain, unexplained weight loss, other Allergies: Coded Allergies: PENICILLINS (Verified Allergy, Unknown, 04/23/20) Tolerated Cefepime 04/23/20 Subjective 04/26 seen by renal, is for hd tomorrow, labs noted, plts are lower 04/27 labs noted, no bleeding, for hd, hgb currently lower at 9 04/28 meds noted, no bleeding, carlo rn, permcath to dc 04/29 labs still pending, no bleeding, remains forgetful, no bleeding Objective Objective Current Medications Medications (Trade) Dose Ordered Sig/Jesus Route PRN Reason Start Time Stop Time Status Last Admin Dose Admin Acetaminophen/ Hydrocodone Bitart ([place] 5/325) 1 tab Q4H PRN ORAL Pain 3-6 04/28/20 19:30 05/04/20 19:29 Aspirin (ASA) 81 mg DAILY ORAL 04/29/20 09:00 06/08/20 08:59 Atorvastatin Calcium (Lipitor) 40 mg BEDTIME ORAL 04/28/20 21:00 07/24/20 20:59 04/28/20 20:29 Cefepime HCl 1 gm/ Dextrose 55 ml @ 110 mls/hr Q24H IVPB 04/29/20 18:00 05/02/20 17:59 Chlorhexidine Gluconate (Cira-Hex 2%) 1 applic DAILY@2000 TOPIC 04/28/20 20:00 07/22/20 19:59 04/28/20 20:31 Dextrose 1,000 ml @ 40 mls/hr Q24H IV 04/28/20 19:30 05/28/20 19:29 04/28/20 20:29 Docusate Sodium (Colace) 100 mg TID ORAL 04/29/20 09:00 05/24/20 08:59 Epoetin Jose (Epoetin Jose(ESRD on dialysis)) 4,000 unit SUN-SUN-SUN SUBQ 04/28/20 21:00 07/27/20 20:59 04/28/20 21:32 Folic Acid (Folate) 1 mg DAILY ORAL 04/29/20 09:00 05/26/20 08:59 Heparin Sodium (Porcine) (Heparin 5000 units/ml) 5,000 units EVERY 12 HOURS SUBQ 04/28/20 21:00 06/12/20 20:59 Hydralazine HCl (Apresoline) 25 mg Q4H PRN ORAL For blood pressure over 160 sy 04/28/20 19:45 07/24/20 19:36 Hydromorphone HCl (Dilaudid) 0.5 mg Q4H PRN SUBQ Pain 7-10 04/28/20 19:45 05/04/20 19:44 Midodrine (Pro-Amatine) 10 mg THREE TIMES A DAY ORAL 04/29/20 09:00 07/25/20 10:29 Ondansetron HCl (Zofran) 4 mg Q6H PRN IVP Nausea & Vomiting 04/28/20 19:45 05/25/20 19:37 Pantoprazole (Protonix) 40 mg EVERY 12 HOURS ORAL 04/28/20 21:00 05/24/20 08:59 04/28/20 20:29 Sevelamer Carbonate (Renvela) 800 mg THREE TIMES A DAY ORAL 04/29/20 09:00 07/23/20 08:59 Vancomycin HCl ([facility] pharmacy to dose) 1 ea DAILY PRN MISC Per rx protocol 04/28/20 19:45 05/28/20 19:44 Last 24 Hour Vital Signs Date Time Temp Pulse Resp B/P (MAP) Pulse Ox O2 Delivery O2 Flow Rate FiO2 04/29/20 04:00 98.4 60 20 150/68 (95) 98 04/29/20 04:00 60 04/29/20 03:00 98.3 63 19 130/76 (94) 98 04/29/20 02:00 98.0 60 20 126/65 (85) 98 04/29/20 01:00 98.5 71 19 123/63 (83) 98 04/29/20 00:00 98.2 69 20 126/57 (80) 98 04/29/20 00:00 66 04/28/20 23:00 98.3 61 20 142/70 (94) 99 04/28/20 22:00 97.6 68 20 140/66 (90) 96 04/28/20 21:00 98.2 68 20 143/71 (95) 99 04/28/20 20:00 62 04/28/20 20:00 98.0 65 20 149/65 (93) 97 04/28/20 19:09 98.1 67 22 144/49 (80) 100 04/28/20 18:43 98.1 67 22 144/49 (80) 100 04/28/20 18:37 68 04/28/20 18:00 71 12 160/73 (102) 96 04/28/20 17:00 60 13 157/81 (106) 98 04/28/20 16:00 97.8 60 12 131/72 (91) 97 04/28/20 16:00 60 04/28/20 15:05 98.5 04/28/20 15:00 60 9 127/62 (83) 97 04/28/20 13:00 63 8 143/68 (93) 97 04/28/20 12:00 60 04/28/20 12:00 60 9 130/56 (80) 98 04/28/20 11:03 64 11 130/54 (79) 98 04/28/20 09:00 62 11 157/71 (99) 97 04/28/20 08:00 62 13 139/55 (83) 99 04/28/20 08:00 60 04/28/20 07:00 60 11 158/60 (92) 98 04/28/20 06:00 63 16 162/69 (100) 99 04/28/20 05:00 60 10 139/61 (87) 98 04/28/20 04:00 98.5 60 11 145/60 (88) 97 04/28/20 04:00 68 04/28/20 03:00 63 11 143/57 (85) 100 04/28/20 02:00 73 16 155/63 (93) 100 04/28/20 01:00 64 13 157/71 (99) 100 04/28/20 00:00 62 04/28/20 00:00 98.6 63 11 136/56 (82) 100 04/27/20 23:00 70 11 151/61 (91) 100 04/27/20 22:00 70 11 154/50 (84) 100 04/27/20 21:00 62 12 149/61 (90) 100 04/27/20 20:00 60 04/27/20 20:00 98.6 60 11 134/52 (79) 04/27/20 19:15 60 11 142/63 (89) 100 04/27/20 19:10 60 10 143/53 (83) 100 04/27/20 19:05 60 10 143/60 (87) 100 04/27/20 19:00 60 12 139/59 (85) 100 7/21/20 18:00 60 10 153/55 (87) 100 04/27/20 17:00 66 12 150/70 (96) 100 04/27/20 16:04 Nasal Cannula 2.0 04/27/20 16:00 98.9 60 10 120/60 (80) 100 04/27/20 16:00 60 04/27/20 15:30 60 11 125/64 (84) 100 04/27/20 15:00 61 10 147/59 (88) 100 04/27/20 14:00 60 10 130/62 (84) 100 04/27/20 13:04 60 12 134/59 (84) 100 04/27/20 12:00 60 10 133/60 (84) 100 04/27/20 12:00 98.7 60 133/60 (84) 04/27/20 12:00 60 04/27/20 12:00 Nasal Cannula 2.0 04/27/20 11:00 60 15 92/49 (63) 100 04/27/20 10:00 60 10 115/50 (71) 100 04/27/20 09:00 60 9 130/62 (84) 100 04/27/20 08:00 98.6 60 8 97/46 (63) 100 04/27/20 08:00 60 04/27/20 08:00 Nasal Cannula 2.0 04/27/20 07:00 60 8 114/42 (66) 100 04/27/20 06:40 100 Nasal Cannula 2.0 28 Intake and Output 04/28/20 04/29/20 19:00 07:00 # Voids 1 1 Labs Test 04/27/20 05:00 04/28/20 03:20 White Blood Count 5.5 K/UL (4.8-10.8) 5.6 K/UL (4.8-10.8) Red Blood Count 3.02 M/UL (4.20-5.40) 2.97 M/UL (4.20-5.40) Hemoglobin 9.0 G/DL (12.0-16.0) 9.0 G/DL (12.0-16.0) Hematocrit 28.8 % (37.0-47.0) 28.1 % (37.0-47.0) Mean Corpuscular Volume 95 FL (80-99) 95 FL (80-99) Mean Corpuscular Hemoglobin 29.8 PG (27.0-31.0) 30.2 PG (27.0-31.0) Mean Corpuscular Hemoglobin Concent 31.2 G/DL (32.0-36.0) 31.9 G/DL (32.0-36.0) Red Cell Distribution Width 15.8 % (11.6-14.8) 15.4 % (11.6-14.8) Platelet Count 103 K/UL (150-450) 133 K/UL (150-450) Mean Platelet Volume 9.1 FL (6.5-10.1) 9.4 FL (6.5-10.1) Neutrophils (%) (Auto) 65.3 % (45.0-75.0) 64.9 % (45.0-75.0) Lymphocytes (%) (Auto) 14.8 % (20.0-45.0) 16.8 % (20.0-45.0) Monocytes (%) (Auto) 9.5 % (1.0-10.0) 10.8 % (1.0-10.0) Eosinophils (%) (Auto) 8.6 % (0.0-3.0) 5.5 % (0.0-3.0) Basophils (%) (Auto) 1.8 % (0.0-2.0) 1.9 % (0.0-2.0) Sodium Level 135 MMOL/L (136-145) 137 MMOL/L (136-145) Potassium Level 5.6 MMOL/L (3.5-5.1) 4.6 MMOL/L (3.5-5.1) Chloride Level 97 MMOL/L (98-107) 97 MMOL/L (98-107) Carbon Dioxide Level 28 MMOL/L (21-32) 27 MMOL/L (21-32) Anion Gap 10 mmol/L (5-15) 14 mmol/L (5-15) Blood Urea Nitrogen 56 mg/dL (7-18) 36 mg/dL (7-18) Creatinine 7.7 MG/DL (0.55-1.30) 5.5 MG/DL (0.55-1.30) Estimat Glomerular Filtration Rate 6.3 mL/min (>60) 9.2 mL/min (>60) Glucose Level 117 MG/DL (74-106) 94 MG/DL (74-106) Calcium Level 9.1 MG/DL (8.5-10.1) 8.9 MG/DL (8.5-10.1) Phosphorus Level 4.9 MG/DL (2.5-4.9) 4.1 MG/DL (2.5-4.9) Magnesium Level 2.3 MG/DL (1.8-2.4) 2.2 MG/DL (1.8-2.4) Total Bilirubin 0.4 MG/DL (0.2-1.0) 0.5 MG/DL (0.2-1.0) Direct Bilirubin 0.1 MG/DL (0.0-0.3) Aspartate Amino Transf (AST/SGOT) 25 U/L (15-37) 26 U/L (15-37) Alanine Aminotransferase (ALT/SGPT) 24 U/L (12-78) 22 U/L (12-78) Alkaline Phosphatase 54 U/L (46-116) 57 U/L (46-116) Total Protein 6.4 G/DL (6.4-8.2) 6.4 G/DL (6.4-8.2) Albumin 2.8 G/DL (3.4-5.0) 2.8 G/DL (3.4-5.0) Hepatitis A IgM Antibody Negative (Negative) Hepatitis B Surface Antigen Negative (Negative) Hepatitis B Core IgM Antibody Negative (Negative) Hepatitis C Antibody <0.1 s/co ratio Uric Acid 4.4 MG/DL (2.6-7.2) Troponin I 0.014 ng/mL (0.000-0.056) C-Reactive Protein, Quantitative 14.1 mg/dL (0.00-0.90) Globulin 3.6 g/dL Albumin/Globulin Ratio 0.8 (1.0-2.7) Random Vancomycin Level 16.0 ug/mL Height (Feet): 5 Height (Inches): 5.00 Weight (Pounds): 259 Objective Physical Exam Vitals: reviewed Gen: no apparent distress, alert, non-toxic, obese, Chronically Ill HEENT: hearing grossly normal, normal voice Neck: full range of motion Resp: chest non-tender, lungs clear, normal breath sounds, no respiratory distress, permacath left side Cardiovascular: regular rate, rhythm, no edema, other - slow cap refill time of lower extremities bilaterally GI: normal bowel sounds, non tender, soft Msk: normal range of motion, non-tender, other - PT. wheel chair bound Neuro: alert, oriented x3, responsive, speech normal, sensory deficit Psychiatric: judgement/insight normal Skin: Decubitus/Ulcer - 2cm in diameter with a deeper necrotic 0.6cm center. erythema- pressure sore on tailbone. no skin break down Husam Byers MD Apr 29, 2020 06:18
[2020-04-29] MEDS: HYDROcodone/Acetamin 5/325 tab ORAL PRN (06:19)
[2020-04-29 07:18] LABS: ALANINE AMINOTRANSFERASE 25 U/L (12-78); ALBUMIN 2.9 G/DL (3.4-5.0); ALBUMIN/GLOBULIN RATIO 0.8 (1.0-2.7); ALKALINE PHOSPHATASE 57 U/L (46-116); ANION GAP 11 mmol/L (5-15); ASPARTATE AMINO TRANSFERASE 27 U/L (15-37); BILIRUBIN,TOTAL 0.6 MG/DL (0.2-1.0); BLOOD UREA NITROGEN 42 mg/dL (7-18); CARBON DIOXIDE 27 MMOL/L (21-32); CHLORIDE 92 MMOL/L (98-107); CREATININE 6.8 MG/DL (0.55-1.30); PHOSPHORUS 4.8 MG/DL (2.5-4.9); POTASSIUM 4.7 MMOL/L (3.5-5.1); SODIUM 130 MMOL/L (136-145)
[2020-04-29 07:22] LABS: BASOPHILS % (AUTO) 2.1 % (0.0-2.0); EOSINOPHILS % (AUTO) 6.8 % (0.0-3.0); HEMATOCRIT 29.6 % (37.0-47.0); HEMOGLOBIN 9.5 G/DL (12.0-16.0); MEAN CORPUSCULAR VOLUME 92 FL (80-99); MONOCYTES % (AUTO) 11.6 % (1.0-10.0); NEUTROPHILS % (AUTO) 61.4 % (45.0-75.0); PLATELET COUNT 148 K/UL (150-450); RED BLOOD COUNT 3.22 M/UL (4.20-5.40); WHITE BLOOD COUNT 6.5 K/UL (4.8-10.8)
--- NOTE | 2020-04-29 08:04 | NUR ---
NURSE NOTES: Received report from Ana Lilia BEAN. Pt in bed sleeping. Bed locked and in lowest position. No signs of SOB or distress noted. Respirations 15. Call light within reach. Whiteboard updated.
--- NOTE | 2020-04-29 08:05 | NUR ---
HAND-OFF: Report given to VIKAS Kirkpatrick. Plan of care endorsed. Patient in stable condition. Endorsed the need for insulin.
[2020-04-29] MEDS ORDERED: NS 275ml ONE (08:59)
[2020-04-29] MEDS ORDERED: Tubing IV Secondary IV ONE (08:59)
[2020-04-29] MEDS: Heparin 5000 units/ml inj SUBQ SCH ×2 (09:00→20:28)
[2020-04-29] MEDS: Aspirin Baby 81mg ORAL SCH (09:19)
[2020-04-29] MEDS: Midodrine 10mg tab ORAL SCH ×3 (09:19→18:00)
[2020-04-29] MEDS: Docusate 100mg cap ORAL SCH ×2 (09:19→12:36)
[2020-04-29] MEDS: Renvela 800mg Pkt ORAL SCH ×3 (09:20→18:37)
--- NOTE | 2020-04-29 10:57 | Nephrology Progress Note ---
Assessment/Plan Problem List: (1) ESRD (end stage renal disease) (2) Pacemaker (3) Diabetic nephropathy (4) Cellulitis of left foot (5) Anemia in chronic kidney disease (CKD) (6) History of CVA (cerebrovascular accident) (7) History of atrial fibrillation Plan April 29: Permacath was taken out yesterday. Will place the catheter tomorrow. Blood cultures negative so far. Continue per consultants. April 28: Dialyzed yesterday. Will remove permacath today. Will do surveillance blood culture. Will aim to put catheter back in 48 hours. April 27: Due for dialysis today. Potassium 5.6. Will give Kayexalate. Blood pressure better under control. Continue per consultants. Also as per ID recommendation based on the blood culture results will remove the permacath tomorrow and will send the tip for culture. Will aim to have another catheter in 48 hours later. In the interim we will do surveillance blood culture. Patient received dialysis last evening for hyperkalemia. Patient had to be transferred to ICU for low blood pressure despite of multiple fluid challenges. Currently in ICU blood pressure 85-90 systolic. Patient on no blood pressure medication. Troponin I slightly elevated. 2D echocardiogram pending. Will start midodrine. Will aim to dialyze tomorrow. Monitor H&H and renal parameters and electrolytes Antibiotic per ID Pain medication adjusted Continue per consultants Subjective ROS Limited/Unobtainable: No Constitutional: Reports: malaise, weakness Objective Objective Last 24 Hour Vital Signs Date Time Temp Pulse Resp B/P (MAP) Pulse Ox O2 Delivery O2 Flow Rate FiO2 04/29/20 08:00 97.1 76 18 141/77 (98) 98 04/29/20 07:00 98.0 63 20 143/72 (95) 98 04/29/20 06:00 98.0 63 20 143/72 (95) 98 04/29/20 05:00 98.0 60 20 150/68 (95) 98 04/29/20 04:00 98.4 60 20 150/68 (95) 98 04/29/20 04:00 60 04/29/20 03:00 98.3 63 19 130/76 (94) 98 04/29/20 02:00 98.0 60 20 126/65 (85) 98 04/29/20 01:00 98.5 71 19 123/63 (83) 98 04/29/20 00:00 98.2 69 20 126/57 (80) 98 04/29/20 00:00 66 04/28/20 23:00 98.3 61 20 142/70 (94) 99 04/28/20 22:00 97.6 68 20 140/66 (90) 96 04/28/20 21:00 98.2 68 20 143/71 (95) 99 04/28/20 20:00 62 04/28/20 20:00 98.0 65 20 149/65 (93) 97 04/28/20 19:09 98.1 67 22 144/49 (80) 100 04/28/20 18:43 98.1 67 22 144/49 (80) 100 04/28/20 18:37 68 04/28/20 18:00 71 12 160/73 (102) 96 04/28/20 17:00 60 13 157/81 (106) 98 04/28/20 16:00 97.8 60 12 131/72 (91) 97 04/28/20 16:00 60 04/28/20 15:05 98.5 04/28/20 15:00 60 9 127/62 (83) 97 04/28/20 13:00 63 8 143/68 (93) 97 04/28/20 12:00 60 04/28/20 12:00 60 9 130/56 (80) 98 04/28/20 11:03 64 11 130/54 (79) 98 Intake and Output 04/28/20 04/29/20 19:00 07:00 Intake Total 200 ml Balance 200 ml Other 200 ml # Voids 1 1 Current Medications Medications (Trade) Dose Ordered Sig/Jesus Route PRN Reason Start Time Stop Time Status Last Admin Dose Admin Acetaminophen/ Hydrocodone Bitart ([place] 5/325) 1 tab Q4H PRN ORAL Pain 3-6 04/28/20 19:30 05/04/20 19:29 04/29/20 06:19 Aspirin (ASA) 81 mg DAILY ORAL 04/29/20 09:00 06/08/20 08:59 04/29/20 09:19 Atorvastatin Calcium (Lipitor) 40 mg BEDTIME ORAL 04/28/20 21:00 07/24/20 20:59 04/28/20 20:29 Cefepime HCl 1 gm/ Dextrose 55 ml @ 110 mls/hr Q24H IVPB 04/29/20 18:00 05/02/20 17:59 Chlorhexidine Gluconate (Cira-Hex 2%) 1 applic DAILY@2000 TOPIC 04/28/20 20:00 07/22/20 19:59 04/28/20 20:31 Dextrose 1,000 ml @ 40 mls/hr Q24H IV 04/28/20 19:30 05/28/20 19:29 04/28/20 20:29 Docusate Sodium (Colace) 100 mg TID ORAL 04/29/20 09:00 05/24/20 08:59 04/29/20 09:19 Epoetin Jose (Epoetin Jose(ESRD on dialysis)) 4,000 unit SUBQ 04/28/20 21:00 07/27/20 20:59 04/28/20 21:32 Folic Acid (Folate) 1 mg DAILY ORAL 04/29/20 09:00 05/26/20 08:59 04/29/20 09:19 Heparin Sodium (Porcine) (Heparin 5000 units/ml) 5,000 units EVERY 12 HOURS SUBQ 04/28/20 21:00 06/12/20 20:59 Hydralazine HCl (Apresoline) 25 mg Q4H PRN ORAL For blood pressure over 160 sy 04/28/20 19:45 07/24/20 19:36 Hydromorphone HCl (Dilaudid) 0.5 mg Q4H PRN SUBQ Pain 7-04/28/20 19:45 05/04/20 19:44 Midodrine (Pro-Amatine) 10 mg THREE TIMES A DAY ORAL 04/29/20 09:00 07/25/20 10:29 04/29/20 09:19 Ondansetron HCl (Zofran) 4 mg Q6H PRN IVP Nausea & Vomiting 04/28/20 19:45 05/25/20 19:37 Pantoprazole (Protonix) 40 mg EVERY 12 HOURS ORAL 04/28/20 21:00 05/24/20 08:59 04/29/20 09:19 Sevelamer Carbonate (Renvela) 800 mg THREE TIMES A DAY ORAL 04/29/20 09:00 07/23/20 08:59 04/29/20 09:20 Vancomycin HCl ([facility] pharmacy to dose) 1 ea DAILY PRN MISC Per rx protocol 04/28/20 19:45 05/28/20 19:44 Laboratory Tests 04/29/20 06:35: White Blood Count 6.5, Red Blood Count 3.22L, Hemoglobin 9.5L, Hematocrit 29.6L , Mean Corpuscular Volume 92, Mean Corpuscular Hemoglobin 29.6, Mean Corpuscular Hemoglobin Concent 32.1, Red Cell Distribution Width 15.0H, Platelet Count 148L, Mean Platelet Volume 7.9, Neutrophils (%) (Auto) 61.4, Lymphocytes (%) (Auto) 18.0L, Monocytes (%) (Auto) 11.6H, Eosinophils (%) (Auto ) 6.8H, Basophils (%) (Auto) 2.1H, Sodium Level 130L, Potassium Level 4.7, Chloride Level 92L, Carbon Dioxide Level 27, Anion Gap 11, Blood Urea Nitrogen 42H, Creatinine 6.8H, Estimat Glomerular Filtration Rate 7.3, Glucose Level 126H , Calcium Level 9.0, Phosphorus Level 4.8, Total Bilirubin 0.6, Aspartate Amino Transf (AST/SGOT) 27, Alanine Aminotransferase (ALT/SGPT) 25, Alkaline Phosphatase 57, Total Protein 6.6, Albumin 2.9L, Globulin 3.7, Albumin/Globulin Ratio 0.8L Height (Feet): 5 Height (Inches): 5.00 Weight (Pounds): 259 General Appearance: no apparent distress, lethargic Cardiovascular: normal rate Respiratory/Chest: decreased breath sounds Abdomen: soft Manas Stephenson MD Apr 29, 2020 10:57
--- NOTE | 2020-04-29 11:31 | NUR ---
NURSE NOTES: Radiology called, they are aware of tunneled cath order. Pt scheduled for tomorrow.
[2020-04-29] MEDS: Docusate 100mg/10ml Liq ORAL SCH ×2 (13:00→18:37)
--- NOTE | 2020-04-29 14:01 | NUR ---
NURSE NOTES: Called daughter to receive consent for tunnel catheter but she sis not pickling grader. Will call again in 1 hour.
--- NOTE | 2020-04-29 14:30 | NUR ---
NURSE NOTES: Patient has adible wheezes on expiration. Dr. Banegas contacted and informed. Order received to contact Dr. Roe. Dr. Roe called. Awaiting call back.
--- NOTE | 2020-04-29 15:24 | NUR ---
NURSE NOTES: Spoke with daughter Ruby Verduzco and obtained consent for tunnel catheter and blood transfusion.
--- NOTE | 2020-04-29 15:39 | Consultation ---
History of Present Illness General Date patient seen: Apr 29, 2020 Reason for Hospitalization: Lower Extremity Injury Present Illness HPI 69-year-old female presents to the emergency department for 10 out of 10 severity pain, tenderness and worsening progression of wound to the left foot times several weeks. 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 Stephenson. Patient reports having a pressure sore on the left toe that took a long time to heal, and that this began in a similar fashion but has gotten much worse. She denies fevers or chills. No other aggravating or relieving factors. She reports history of neuropathy in the affected extremity as well. Admitted for further care and management. Surgery called to eval and assist with care. Patient seen, patient evaluated, chart reviewed. Patient states that she is feeling well since admitted. Pain under control. Wounds improving. Dressings being applied daily. Tolerating diet. Ambulatory. I would like a walker to help ambulate. Allergies: Coded Allergies: PENICILLINS (Verified Allergy, Unknown, 04/23/20) Tolerated Cefepime 04/23/20 COVID-19 Screening Contact w/high risk pt: No Recent Travel to affected area: No Experienced COVID-19 symptoms?: No COVID-19 symptoms experienced: Cough Medication History Scheduled Amino Acids/Protein Hydrolys (Pro-Stat Liquid), 30 ML ORAL TWICE A DAY, ( Reported) Amiodarone Hcl* (Pacerone*), 200 MG ORAL DAILY Apixaban (Eliquis), 2.5 MG ORAL BID Aspirin* (Aspirin*), 81 MG ORAL DAILY Atorvastatin Calcium* (Atorvastatin Calcium*), 10 MG ORAL BEDTIME, (Reported) Cholecalciferol (Vitamin D3) (Vitamin D-400*), 400 UNITS ORAL DAILY, (Reported) Docusate Sodium* (Docusate Sodium*), 100 MG ORAL TWICE A DAY, (Reported) Ferrous Sulfate* (Ferrous Sulfate*), 325 MG ORAL DAILY, (Reported) Gabapentin* (Gabapentin*), 100 MG ORAL Q12HR, (Reported) Gabapentin* (Gabapentin*), 300 MG ORAL THREE TIMES A DAY, (Reported) Hydralazine Hcl* (Hydralazine Hcl*), 25 MG ORAL EVERY 8 HOURS, (Reported) Sevelamer Carbonate* (Renvela*), 800 MG ORAL THREE TIMES A DAY, (Reported) Vitamin B Complex (Vitamin B Complex), 1 EACH PO DAILY, (Reported) [Nephro Aide], 1 TAB PO DAILY, (Reported) Scheduled PRN Acetaminophen* (Acetaminophen 325MG Tablet*), 650 MG ORAL Q4H PRN for For Pain, (Reported) Albuterol Sulfate* (Albuterol Sulfate Hhn*), 3 ML INH Q6H PRN for wheezing, ( Reported) Bisacodyl (Bisacodyl), 10 MG RC EVERY DAY PRN for Constipation, (Reported) Hydrocodone Bit/Acetaminophen 5-325* (Arley 5-325*), 1 TAB ORAL Q4H PRN for For Pain, (Reported) Na Phos,M-B/Na Phos,Di-Ba* (Fleet Enema*), 133 ML RECTAL DAILY PRN for Constipation, (Reported) [[facility] pharmacy to dose], 1 EA MISC DAILY PRN Miscellaneous Medications Dextran 70/Hypromellose (Artificial Tears Eye Drops*), 1 DROP BOTH EYES, ( Reported) Patient History History Provided By: Patient, Medical Record, PMD Healthcare decision maker Resuscitation status Advanced Directive on File Past Medical/Surgical History Past Medical/Surgical History: (1) Diabetic nephropathy (2) Heel abrasion (3) Bradycardia (4) Volume overload (5) Elevated troponin I level (6) Urinary tract infection due to Proteus (7) COPD (chronic obstructive pulmonary disease) (8) Hypertensive kidney disease (9) Diabetic nephropathy (10) Cellulitis of left foot (11) Pacemaker (12) Anemia in chronic kidney disease (CKD) (13) History of CVA (cerebrovascular accident) (14) History of atrial fibrillation (15) ESRD (end stage renal disease) (16) Dyspnea (17) Symptomatic anemia (18) Acute on chronic renal failure (19) Anemia (20) HTN (hypertension) Review of Systems Review of Symptoms General ROS: no weight loss or fever Psychological ROS: no depression or mood changes, no memory loss Ophthalmic ROS: no visual changes or eye irritation ENT ROS: no nasal congestion, hearing loss, dizziness Allergy and Immunology ROS: no allergic symptoms or urticaria Hematological and Lymphatic ROS: no swollen glands, unusual bleeding or bruising Endocrine ROS: no polyuria, polydipsia, weight changes, temperature intolerance Respiratory ROS: no cough, shortness of breath, or wheezing Cardiovascular ROS: no chest pain or dyspnea on exertion Gastrointestinal ROS: denies abdominal pain, bright red blood in stool. Musculoskeletal ROS: no myalgias or arthralgias Neurological ROS: no TIA or stroke symptoms Dermatological ROS: no new or changing skin lesions, rashes or pruritis Physical Exam Physical Exam General appearance: alert, cooperative, no distress, appears stated age Head: Normocephalic, without obvious abnormality, atraumatic Eyes: conjunctivae/corneas clear. PERRL, EOM's intact. Fundi benign Throat: Lips, mucosa, and tongue normal. Teeth and gums normal Neck: supple, symmetrical, trachea midline, no adenopathy, thyroid: not enlarged, symmetric, no tenderness/mass/nodules, no carotid bruit and no JVD Lungs: clear to auscultation bilaterally Heart: regular rate and rhythm, S1, S2 normal, no murmur, click, rub or gallop Abdomen: soft, non-tender. Bowel sounds normal. No masses, no organomegaly Extremities: extremities normal, atraumatic, no cyanosis ++ edema Pulses: 2+ and symmetric Skin: Skin see below Neurologic: Grossly normal Last 24 Hour Vital Signs Date Time Temp Pulse Resp B/P (MAP) Pulse Ox O2 Delivery O2 Flow Rate FiO2 04/29/20 12:00 98.1 59 18 148/55 (86) 97 04/29/20 12:00 60 04/29/20 09:15 97 Nasal Cannula 2.0 28 04/29/20 08:00 97.1 76 18 141/77 (98) 98 04/29/20 08:00 60 04/29/20 07:00 98.0 63 20 143/72 (95) 98 04/29/20 06:00 98.0 63 20 143/72 (95) 98 04/29/20 05:00 98.0 60 20 150/68 (95) 98 04/29/20 04:00 98.4 60 20 150/68 (95) 98 04/29/20 04:00 60 04/29/20 03:00 98.3 63 19 130/76 (94) 98 04/29/20 02:00 98.0 60 20 126/65 (85) 98 04/29/20 01:00 98.5 71 19 123/63 (83) 98 04/29/20 00:00 98.2 69 20 126/57 (80) 98 04/29/20 00:00 66 04/28/20 23:00 98.3 61 20 142/70 (94) 99 04/28/20 22:00 97.6 68 20 140/66 (90) 96 04/28/20 21:00 98.2 68 20 143/71 (95) 99 04/28/20 20:00 62 04/28/20 20:00 98.0 65 20 149/65 (93) 97 04/28/20 19:09 98.1 67 22 144/49 (80) 100 04/28/20 18:43 98.1 67 22 144/49 (80) 100 04/28/20 18:37 68 04/28/20 18:00 71 12 160/73 (102) 96 04/28/20 17:00 60 13 157/81 (106) 98 04/28/20 16:00 97.8 60 12 131/72 (91) 97 04/28/20 16:00 60 Intake and Output 04/28/20 04/29/20 19:00 07:00 Intake Total 200 ml Balance 200 ml Other 200 ml # Voids 1 1 Laboratory Tests Test 04/29/20 06:35 White Blood Count 6.5 K/UL (4.8-10.8) Red Blood Count 3.22 M/UL (4.20-5.40) L Hemoglobin 9.5 G/DL (12.0-16.0) L Hematocrit 29.6 % (37.0-47.0) L Mean Corpuscular Volume 92 FL (80-99) Mean Corpuscular Hemoglobin 29.6 PG (27.0-31.0) Mean Corpuscular Hemoglobin Concent 32.1 G/DL (32.0-36.0) Red Cell Distribution Width 15.0 % (11.6-14.8) H Platelet Count 148 K/UL (150-450) L Mean Platelet Volume 7.9 FL (6.5-10.1) Neutrophils (%) (Auto) 61.4 % (45.0-75.0) Lymphocytes (%) (Auto) 18.0 % (20.0-45.0) L Monocytes (%) (Auto) 11.6 % (1.0-10.0) H Eosinophils (%) (Auto) 6.8 % (0.0-3.0) H Basophils (%) (Auto) 2.1 % (0.0-2.0) H Sodium Level 130 MMOL/L (136-145) L Potassium Level 4.7 MMOL/L (3.5-5.1) Chloride Level 92 MMOL/L (98-107) L Carbon Dioxide Level 27 MMOL/L (21-32) Anion Gap 11 mmol/L (5-15) Blood Urea Nitrogen 42 mg/dL (7-18) H Creatinine 6.8 MG/DL (0.55-1.30) H Estimat Glomerular Filtration Rate 7.3 mL/min (>60) Glucose Level 126 MG/DL (74-106) H Calcium Level 9.0 MG/DL (8.5-10.1) Phosphorus Level 4.8 MG/DL (2.5-4.9) Total Bilirubin 0.6 MG/DL (0.2-1.0) Aspartate Amino Transf (AST/SGOT) 27 U/L (15-37) Alanine Aminotransferase (ALT/SGPT) 25 U/L (12-78) Alkaline Phosphatase 57 U/L (46-116) Total Protein 6.6 G/DL (6.4-8.2) Albumin 2.9 G/DL (3.4-5.0) L Globulin 3.7 g/dL Albumin/Globulin Ratio 0.8 (1.0-2.7) L Height (Feet): 5 Height (Inches): 5.00 Weight (Pounds): 259 Medications Current Medications Medications (Trade) Dose Ordered Sig/Jesus Route PRN Reason Start Time Stop Time Status Last Admin Dose Admin Acetaminophen/ Hydrocodone Bitart ([place]ley 5/325) 1 tab Q4H PRN ORAL Pain 3-6 04/28/20 19:30 05/04/20 19:29 04/29/20 06:19 Aspirin (ASA) 81 mg DAILY ORAL 04/29/20 09:00 06/08/20 08:59 04/29/20 09:19 Atorvastatin Calcium (Lipitor) 40 mg BEDTIME ORAL 04/28/20 21:00 07/24/20 20:59 04/28/20 20:29 Cefepime HCl 1 gm/ Dextrose 55 ml @ 110 mls/hr Q24H IVPB 04/29/20 18:00 05/02/20 17:59 Chlorhexidine Gluconate (Cira-Hex 2%) 1 applic DAILY@2000 TOPIC 04/28/20 20:00 07/22/20 19:59 04/28/20 20:31 Dextrose 1,000 ml @ 40 mls/hr Q24H IV 04/28/20 19:30 05/28/20 19:29 04/28/20 20:29 Docusate Sodium (Colace) 100 mg THREE TIMES A DAY ORAL 04/29/20 13:00 05/29/20 12:59 Epoetin Jose (Epoetin Jose(ESRD on dialysis)) 4,000 unit SUN- SUBQ 04/28/20 21:00 07/27/20 20:59 04/28/20 21:32 Folic Acid (Folate) 1 mg DAILY ORAL 04/29/20 09:00 05/26/20 08:59 04/29/20 09:19 Heparin Sodium (Porcine) (Heparin 5000 units/ml) 5,000 units EVERY 12 HOURS SUBQ 04/28/20 21:00 06/12/20 20:59 Hydralazine HCl (Apresoline) 25 mg Q4H PRN ORAL For blood pressure over 160 sy 04/28/20 19:45 07/24/20 19:36 Hydromorphone HCl (Dilaudid) 0.5 mg Q4H PRN SUBQ Pain 7-04/28/20 19:45 05/04/20 19:44 Midodrine (Pro-Amatine) 10 mg THREE TIMES A DAY ORAL 04/29/20 09:00 07/25/20 10:29 04/29/20 09:19 Ondansetron HCl (Zofran) 4 mg Q6H PRN IVP Nausea & Vomiting 04/28/20 19:45 05/25/20 19:37 Pantoprazole (Protonix) 40 mg EVERY 12 HOURS ORAL 04/28/20 21:00 05/24/20 08:59 04/29/20 09:19 Sevelamer Carbonate (Renvela) 800 mg THREE TIMES A DAY ORAL 04/29/20 09:00 07/23/20 08:59 04/29/20 12:36 Vancomycin HCl ([facility] pharmacy to dose) 1 ea DAILY PRN MISC Per rx protocol 04/28/20 19:45 05/28/20 19:44 Assessment/Plan Problem List: (1) Diabetic nephropathy ICD Codes: E11.21 - Type 2 diabetes mellitus with diabetic nephropathy SNOMED: 79761043, 129903741 Qualifiers: Qualified Codes: E13.21 - Other specified diabetes mellitus with diabetic nephropathy (2) Cellulitis of left foot Assessment & Plan: Pt presented on admission with Moisture Intertrigo Bilat Breasts and Abdominal folds. Unstageable Pressure Injury Lateral L heel (L) 2.2cm x (W)2.2cm. Base of wound is 80% soft necrosis,10% slough, remaining 10% monique.Epibole approx 50% borders,50% pink. Small amt Brownish exudate. Wound is malodorous. Loose non-viable tissue removed.Base of wound now 90% slough,10% monique. Odor improved post cleansing. Therahoney applied with small 2x2 packing, covered with ABD pad and wrapped with Kerlix until orders for wound care can be clarified with DPM. Both feet are cold to touch and dusky at distal aspect including metatarsals both feet;dorsum L 3rd metatarsal is black. Dry eschar noted to L 1st metatarsal head(L)1.1cm x (W)1.6cm.Pt complained of pain LLE and L foot to slightest touch or movement R heel is boggy and pale. Moisture Intertrigo skin folds both breasts and abdominal folds. Both areas are malodorous. Cleansed with soap and water and gently dried. Phytoplex Antifungal Powder applied to affected areas. R and L groin are moist and erythematous. Moisture Barrier Paste applied. Darker skin tone with two small indurated areas at Sacrococcygeal area noted. Pt complained site tender when minimally palpated. In close proximity above coccyx at Saniya cleft is resolving Pressure injury. Turner epithelial noted. An area of hyperpigmentation with pink epithelial medially noted to L Ischial tuberosity. Hyperpigmentation noted to R Ischium. Tx.Plan: Wash and dry skin folds both breasts and Abdominal folds. Apply Light Dusting of Antifungal powder Twice Daily. Apply Moisture Barrier Paste to Bilat groin and Buttocks with each Incontinence care. Cover Sacrum with Optifoam drsg. Change every 3 days and prn. Apply Cavilon Skin Barrier to R Heel and Malleoli. Cover with Optifoam drsg. Change every 7 days and prn. Reposition at least every 2hours or as tolerated. Off-load heels with pillow. Flow images demonstrate overall asymmetrically increased flow in the right foot, particularly in the region of the calcaneal tuberosity, midfoot and forefoot. There is equivocally slightly increased flow in the left heel. Blood pool images likewise demonstrate increased activity on the right, involving the midfoot and forefoot. Very subtle slightly increased activity is seen in the region of the left calcaneal tuberosity. On the static images, there is very mildly prominent activity in the left calcaneal tuberosity, but this is actually less striking than on the contralateral side. Ill-defined increased activity is seen in the left midfoot and in the right midfoot and forefoot. There is some increased activity in the region of the right metatarsophalangeal joint which is probably degenerative in nature. Impression: No significant abnormality in the left heel to suggest osteomyelitis of the location of clinically described left heel wound. Mild bilateral abnormal uptake, as detailed above, likely reflecting degenerative changes ICD Codes: L03.116 - Cellulitis of left lower limb SNOMED: 860001834 (3) Pacemaker ICD Codes: Z95.0 - Presence of cardiac pacemaker SNOMED: 204881553 (4) Anemia in chronic kidney disease (CKD) ICD Codes: N18.9 - Chronic kidney disease, unspecified; D63.1 - Anemia in chronic kidney disease SNOMED: 473778208 (5) History of CVA (cerebrovascular accident) ICD Codes: Z86.73 - Personal history of transient ischemic attack (TIA), and cerebral infarction without residual deficits SNOMED: 382303955 (6) History of atrial fibrillation ICD Codes: Z86.79 - Personal history of other diseases of the circulatory system SNOMED: 265653408 (7) ESRD (end stage renal disease) ICD Codes: N18.6 - End stage renal disease SNOMED: 85863545 (8) COPD (chronic obstructive pulmonary disease) ICD Codes: J44.9 - Chronic obstructive pulmonary disease, unspecified SNOMED: 24673897 (9) Bradycardia ICD Codes: R00.1 - Bradycardia, unspecified SNOMED: 08924903 (10) Diabetic nephropathy ICD Codes: E11.21 - Type 2 diabetes mellitus with diabetic nephropathy SNOMED: 15242797, 180228998 (11) Hypertensive kidney disease ICD Codes: I12.9 - Hypertensive chronic kidney disease with stage 1 through stage 4 chronic kidney disease, or unspecified chronic kidney disease SNOMED: 85792915 (12) Volume overload ICD Codes: E87.70 - Fluid overload, unspecified SNOMED: 37632114 (13) Heel abrasion ICD Codes: S90.819A - Abrasion, unspecified foot, initial encounter SNOMED: 666393475, 746224057 (14) Elevated troponin I level ICD Codes: R74.8 - Abnormal levels of other serum enzymes SNOMED: 452580690 (15) Urinary tract infection due to Proteus ICD Codes: N39.0 - Urinary tract infection, site not specified; B96.4 - Proteus (mirabilis) (morganii) as the cause of diseases classified elsewhere SNOMED: 312059984 (16) Dyspnea ICD Codes: R06.00 - Dyspnea, unspecified SNOMED: 209641792 (17) Symptomatic anemia ICD Codes: D64.9 - Anemia, unspecified SNOMED: 663767550 (18) Acute on chronic renal failure ICD Codes: N17.9 - Acute kidney failure, unspecified; N18.9 - Chronic kidney disease, unspecified SNOMED: 822826344 (19) Anemia ICD Codes: D64.9 - Anemia, unspecified SNOMED: 008689104 (20) HTN (hypertension) ICD Codes: I10 - Essential (primary) hypertension SNOMED: 89982799 Luis Alberto Cade Apr 29, 2020 15:39
--- NOTE | 2020-04-29 15:46 | Infectious Diseases Prog Note ---
Assessment/Plan Assessment: REHAB THERAPIST 04/25- due to hypotension and desaturation -hypoxic on ABG SEvere sepsis S. capitis bacteremia, persistent- likely HD line infection in the setting of sepsis -04/23 Bcx 1/ Staph capitis ; 04/25 Bcx 1/4 Staph capitis; 04/27 Bcx NTD x4 ( peripheral, HD line) -2d Echo: no vegetations seen Pulmonary edema vs PNA -04/25 SARS-COV2 PCR neg -04/25 CXR: Perihilar opacities may represent pulmonary edema versus infectious/inflammatory process. Elevated trop L foot/ankle wound- no OM on bone scan -04/28 Bone scan: No significant abnormality in the left heel to suggest osteomyelitis of the location of clinically described left heel wound. Mild bilateral abnormal uptake, as detailed above, likely reflecting degenerative changes -xray L foot/ankle: No acute findings in the left foot. 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 s/p PPM asthma ESRD on HD (MWF) Plan: -Continue IV Vancomycin #04/20 for bacteremia - Cefepime #5(abx d #04/13) for PNA -04/25 SP Ceftriaxone #3 -04/23 SP Cefepime x1 -f/u cx -Monitor CBC/CMP, temperatures -wound care per department of mathematics chair -Podiatry, renal, cards, pulm f/u - f/u Bcx x2 (peripheral & HD line) -COVID19 neg x1 -aspiration precautions Thank you for consulting [facility]. Will continue to follow along . Discussed with RN and Dr Stephenson. Updated daughter via phone (on 04/28) Subjective Allergies: Coded Allergies: PENICILLINS (Verified Allergy, Unknown, 04/23/20) Tolerated Cefepime 04/23/20 afebrile on 2l NC transferred from ICU to telemetry permacath removed yeterday latest Bcx NTD Objective Last 24 Hour Vital Signs Date Time Temp Pulse Resp B/P (MAP) Pulse Ox O2 Delivery O2 Flow Rate FiO2 04/29/20 12:00 98.1 59 18 148/55 (86) 97 04/29/20 12:00 60 04/29/20 09:15 97 Nasal Cannula 2.0 28 04/29/20 08:00 97.1 76 18 141/77 (98) 98 04/29/20 08:00 60 04/29/20 07:00 98.0 63 20 143/72 (95) 98 04/29/20 06:00 98.0 63 20 143/72 (95) 98 04/29/20 05:00 98.0 60 20 150/68 (95) 98 04/29/20 04:00 98.4 60 20 150/68 (95) 98 04/29/20 04:00 60 04/29/20 03:00 98.3 63 19 130/76 (94) 98 04/29/20 02:00 98.0 60 20 126/65 (85) 98 04/29/20 01:00 98.5 71 19 123/63 (83) 98 04/29/20 00:00 98.2 69 20 126/57 (80) 98 04/29/20 00:00 66 04/28/20 23:00 98.3 61 20 142/70 (94) 99 04/28/20 22:00 97.6 68 20 140/66 (90) 96 04/28/20 21:00 98.2 68 20 143/71 (95) 99 04/28/20 20:00 62 04/28/20 20:00 98.0 65 20 149/65 (93) 97 04/28/20 19:09 98.1 67 22 144/49 (80) 100 04/28/20 18:43 98.1 67 22 144/49 (80) 100 04/28/20 18:37 68 04/28/20 18:00 71 12 160/73 (102) 96 04/28/20 17:00 60 13 157/81 (106) 98 04/28/20 16:00 97.8 60 12 131/72 (91) 97 04/28/20 16:00 60 Height (Feet): 5 Height (Inches): 5.00 Weight (Pounds): 259 Microbiology Date/Time Source Procedure Growth Status 04/27/20 18:40 Blood Blood Culture - Preliminary NO GROWTH AFTER 24 HOURS Resulted 04/27/20 18:30 Blood Blood Culture - Preliminary NO GROWTH AFTER 24 HOURS Resulted Laboratory Tests Test 04/29/20 06:35 White Blood Count 6.5 K/UL (4.8-10.8) Red Blood Count 3.22 M/UL (4.20-5.40) L Hemoglobin 9.5 G/DL (12.0-16.0) L Hematocrit 29.6 % (37.0-47.0) L Mean Corpuscular Volume 92 FL (80-99) Mean Corpuscular Hemoglobin 29.6 PG (27.0-31.0) Mean Corpuscular Hemoglobin Concent 32.1 G/DL (32.0-36.0) Red Cell Distribution Width 15.0 % (11.6-14.8) H Platelet Count 148 K/UL (150-450) L Mean Platelet Volume 7.9 FL (6.5-10.1) Neutrophils (%) (Auto) 61.4 % (45.0-75.0) Lymphocytes (%) (Auto) 18.0 % (20.0-45.0) L Monocytes (%) (Auto) 11.6 % (1.0-10.0) H Eosinophils (%) (Auto) 6.8 % (0.0-3.0) H Basophils (%) (Auto) 2.1 % (0.0-2.0) H Sodium Level 130 MMOL/L (136-145) L Potassium Level 4.7 MMOL/L (3.5-5.1) Chloride Level 92 MMOL/L (98-107) L Carbon Dioxide Level 27 MMOL/L (21-32) Anion Gap 11 mmol/L (5-15) Blood Urea Nitrogen 42 mg/dL (7-18) H Creatinine 6.8 MG/DL (0.55-1.30) H Estimat Glomerular Filtration Rate 7.3 mL/min (>60) Glucose Level 126 MG/DL (74-106) H Calcium Level 9.0 MG/DL (8.5-10.1) Phosphorus Level 4.8 MG/DL (2.5-4.9) Total Bilirubin 0.6 MG/DL (0.2-1.0) Aspartate Amino Transf (AST/SGOT) 27 U/L (15-37) Alanine Aminotransferase (ALT/SGPT) 25 U/L (12-78) Alkaline Phosphatase 57 U/L (46-116) Total Protein 6.6 G/DL (6.4-8.2) Albumin 2.9 G/DL (3.4-5.0) L Globulin 3.7 g/dL Albumin/Globulin Ratio 0.8 (1.0-2.7) L Current Medications Medications (Trade) Dose Ordered Sig/Jesus Route PRN Reason Start Time Stop Time Status Last Admin Dose Admin Acetaminophen/ Hydrocodone Bitart ([place] 5/325) 1 tab Q4H PRN ORAL Pain 3-6 04/28/20 19:30 05/04/20 19:29 04/29/20 06:19 Aspirin (ASA) 81 mg DAILY ORAL 04/29/20 09:00 06/08/20 08:59 04/29/20 09:19 Atorvastatin Calcium (Lipitor) 40 mg BEDTIME ORAL 04/28/20 21:00 07/24/20 20:59 04/28/20 20:29 Cefepime HCl 1 gm/ Dextrose 55 ml @ 110 mls/hr Q24H IVPB 04/29/20 18:00 05/02/20 17:59 Chlorhexidine Gluconate (Cira-Hex 2%) 1 applic DAILY@2000 TOPIC 04/28/20 20:00 07/22/20 19:59 04/28/20 20:31 Dextrose 1,000 ml @ 40 mls/hr Q24H IV 04/28/20 19:30 05/28/20 19:29 04/28/20 20:29 Docusate Sodium (Colace) 100 mg THREE TIMES A DAY ORAL 04/29/20 13:00 05/29/20 12:59 Epoetin Jose (Epoetin Jose(ESRD on dialysis)) 4,000 unit SUN-SUN-SUN SUBQ 04/28/20 21:00 07/27/20 20:59 04/28/20 21:32 Folic Acid (Folate) 1 mg DAILY ORAL 04/29/20 09:00 05/26/20 08:59 04/29/20 09:19 Heparin Sodium (Porcine) (Heparin 5000 units/ml) 5,000 units EVERY 12 HOURS SUBQ 04/28/20 21:00 06/12/20 20:59 Hydralazine HCl (Apresoline) 25 mg Q4H PRN ORAL For blood pressure over 160 sy 04/28/20 19:45 07/24/20 19:36 Hydromorphone HCl (Dilaudid) 0.5 mg Q4H PRN SUBQ Pain 7-10 04/28/20 19:45 05/04/20 19:44 Midodrine (Pro-Amatine) 10 mg THREE TIMES A DAY ORAL 04/29/20 09:00 07/25/20 10:29 04/29/20 09:19 Ondansetron HCl (Zofran) 4 mg Q6H PRN IVP Nausea & Vomiting 04/28/20 19:45 05/25/20 19:37 Pantoprazole (Protonix) 40 mg EVERY 12 HOURS ORAL 04/28/20 21:00 05/24/20 08:59 04/29/20 09:19 Sevelamer Carbonate (Renvela) 800 mg THREE TIMES A DAY ORAL 04/29/20 09:00 07/23/20 08:59 04/29/20 12:36 Vancomycin HCl ([facility] pharmacy to dose) 1 ea DAILY PRN MISC Per rx protocol 04/28/20 19:45 05/28/20 19:44 Kathia Lei M.D. Apr 29, 2020 15:46
--- NOTE | 2020-04-29 16:16 | General Progress Note ---
Assessment/Plan Status: stable, unchanged Assessment/Plan: S: appears comfortable. O: controlled pain . seen and examined in Tele units. talks and communicate PHYSICAL EXAMINATION: HEAD AND NECK: Atraumatic and normocephalic. CHEST: permcath in right chest wall, Clear to auscultation. HEART: S1, S2. Regular rate and rhythm. Bradycardic. MUSCULOSKELETAL: paraparesis. stage 3 decubitus wound in calcaneal region. NEUROLOGIC: The patient is awake and alert x 2. LABORATORY AND DIAGNOSTIC DATA: Labs dated 04/29/20 reviewed Imaging: bone scan dated April 28 reviewed ASSESSMENT: 1. Sepsis secondary to Gram positive coccidiema , likely line infection 2. Acute Hypoxemic respiratory failure, s/p rapid response assessment 2. Hypotension : ddx; adrenal insufficiency 3. HyperKalemia 2. Decubitus wound, enlarging and infected. 3. End-stage renal disease, on temporary PermCath hemodialysis access. 2. Paroxysmal atrial fibrillation, rate is stable. 3. Diabetes type 2. 4. Hypertension. 5. Hyperlipidemia. 6. CVA-history. 7. CHF-Diastolic type 8. Dementia. 8. Gastrointestinal and deep vein thrombosis prophylaxes. 9. Pain management 10. iron deficiency anemia Plan: Seen in ICU Empirical abx initiated Notes from [id number] care reviewed Notified Dr Fam and D/w Dr Saavedra c/w Batsheva PRN breakthrough Consulte Hem onch Post Calcium/Novolog/D50 treatment with favorable response HD per nephrology will remove HD access post HD D/w Nephrology, ID and Vascular surgeon DC the eliquis in anticipation of Vascular procedures Subjective Allergies: Coded Allergies: PENICILLINS (Verified Allergy, Unknown, 04/23/20) Tolerated Cefepime 04/23/20 Objective Last 24 Hour Vital Signs Date Time Temp Pulse Resp B/P (MAP) Pulse Ox O2 Delivery O2 Flow Rate FiO2 04/29/20 12:00 98.1 59 18 148/55 (86) 97 04/29/20 12:00 60 04/29/20 09:15 97 Nasal Cannula 2.0 28 04/29/20 09:00 Nasal Cannula 2.0 Nasal Cannula 2.0 Nasal Cannula 2.0 04/29/20 08:00 97.1 76 18 141/77 (98) 98 04/29/20 08:00 60 7/23/20 07:00 98.0 63 20 143/72 (95) 98 04/29/20 06:00 98.0 63 20 143/72 (95) 98 04/29/20 05:00 98.0 60 20 150/68 (95) 98 04/29/20 04:00 98.4 60 20 150/68 (95) 98 04/29/20 04:00 60 04/29/20 03:00 98.3 63 19 130/76 (94) 98 04/29/20 02:00 98.0 60 20 126/65 (85) 98 04/29/20 01:00 98.5 71 19 123/63 (83) 98 04/29/20 00:00 98.2 69 20 126/57 (80) 98 04/29/20 00:00 66 04/28/20 23:00 98.3 61 20 142/70 (94) 99 04/28/20 22:00 97.6 68 20 140/66 (90) 96 04/28/20 21:00 98.2 68 20 143/71 (95) 99 04/28/20 20:00 62 04/28/20 20:00 98.0 65 20 149/65 (93) 97 04/28/20 19:09 98.1 67 22 144/49 (80) 100 04/28/20 18:43 98.1 67 22 144/49 (80) 100 04/28/20 18:37 68 04/28/20 18:00 71 12 160/73 (102) 96 04/28/20 17:00 60 13 157/81 (106) 98 Intake and Output 04/28/20 04/29/20 19:00 07:00 Intake Total 200 ml Balance 200 ml Other 200 ml # Voids 1 1 Laboratory Tests 04/29/20 06:35: White Blood Count 6.5, Red Blood Count 3.22L, Hemoglobin 9.5L, Hematocrit 29.6L , Mean Corpuscular Volume 92, Mean Corpuscular Hemoglobin 29.6, Mean Corpuscular Hemoglobin Concent 32.1, Red Cell Distribution Width 15.0H, Platelet Count 148L, Mean Platelet Volume 7.9, Neutrophils (%) (Auto) 61.4, Lymphocytes (%) (Auto) 18.0L, Monocytes (%) (Auto) 11.6H, Eosinophils (%) (Auto ) 6.8H, Basophils (%) (Auto) 2.1H, Sodium Level 130L, Potassium Level 4.7, Chloride Level 92L, Carbon Dioxide Level 27, Anion Gap 11, Blood Urea Nitrogen 42H, Creatinine 6.8H, Estimat Glomerular Filtration Rate 7.3, Glucose Level 126H , Calcium Level 9.0, Phosphorus Level 4.8, Total Bilirubin 0.6, Aspartate Amino Transf (AST/SGOT) 27, Alanine Aminotransferase (ALT/SGPT) 25, Alkaline Phosphatase 57, Total Protein 6.6, Albumin 2.9L, Globulin 3.7, Albumin/Globulin Ratio 0.8L Height (Feet): 5 Height (Inches): 5.00 Weight (Pounds): 259 Danie Banegas MD Apr 29, 2020 16:16
--- NOTE | 2020-04-29 16:46 | Pulmonology Progress Note ---
Subjective ROS Limited/Unobtainable: No Interval Events: Transferred out of ICU; much better now Constitutional: Reports: no symptoms HEENT: Repors: no symptoms Respiratory: Reports: no symptoms Cardiovascular: Reports: no symptoms Allergies: Coded Allergies: PENICILLINS (Verified Allergy, Unknown, 04/23/20) Tolerated Cefepime 04/23/20 Objective Last 24 Hour Vital Signs Date Time Temp Pulse Resp B/P (MAP) Pulse Ox O2 Delivery O2 Flow Rate FiO2 04/29/20 16:00 98.4 60 18 136/64 (88) 98 04/29/20 12:00 98.1 59 18 148/55 (86) 97 04/29/20 12:00 60 04/29/20 09:15 97 Nasal Cannula 2.0 28 04/29/20 09:00 Nasal Cannula 2.0 Nasal Cannula 2.0 Nasal Cannula 2.0 04/29/20 08:00 97.1 76 18 141/77 (98) 98 04/29/20 08:00 60 04/29/20 07:00 98.0 63 20 143/72 (95) 98 04/29/20 06:00 98.0 63 20 143/72 (95) 98 04/29/20 05:00 98.0 60 20 150/68 (95) 98 04/29/20 04:00 98.4 60 20 150/68 (95) 98 04/29/20 04:00 60 04/29/20 03:00 98.3 63 19 130/76 (94) 98 04/29/20 02:00 98.0 60 20 126/65 (85) 98 04/29/20 01:00 98.5 71 19 123/63 (83) 98 04/29/20 00:00 98.2 69 20 126/57 (80) 98 04/29/20 00:00 66 04/28/20 23:00 98.3 61 20 142/70 (94) 99 04/28/20 22:00 97.6 68 20 140/66 (90) 96 04/28/20 21:00 98.2 68 20 143/71 (95) 99 04/28/20 20:00 62 04/28/20 20:00 98.0 65 20 149/65 (93) 97 04/28/20 19:09 98.1 67 22 144/49 (80) 100 04/28/20 18:43 98.1 67 22 144/49 (80) 100 04/28/20 18:37 68 04/28/20 18:00 71 12 160/73 (102) 96 04/28/20 17:00 60 13 157/81 (106) 98 Intake and Output 04/28/20 04/29/20 19:00 07:00 Intake Total 200 ml Balance 200 ml Other 200 ml # Voids 1 1 General Appearance: no acute distress HEENT: normocephalic Respiratory: chest wall non-tender Cardiovascular: normal peripheral pulses Abdomen: soft, non tender Microbiology Date/Time Source Procedure Growth Status 04/27/20 18:40 Blood Blood Culture - Preliminary NO GROWTH AFTER 24 HOURS Resulted 04/27/20 18:30 Blood Blood Culture - Preliminary NO GROWTH AFTER 24 HOURS Resulted Laboratory Tests 04/29/20 06:35: White Blood Count 6.5, Red Blood Count 3.22L, Hemoglobin 9.5L, Hematocrit 29.6L , Mean Corpuscular Volume 92, Mean Corpuscular Hemoglobin 29.6, Mean Corpuscular Hemoglobin Concent 32.1, Red Cell Distribution Width 15.0H, Platelet Count 148L, Mean Platelet Volume 7.9, Neutrophils (%) (Auto) 61.4, Lymphocytes (%) (Auto) 18.0L, Monocytes (%) (Auto) 11.6H, Eosinophils (%) (Auto ) 6.8H, Basophils (%) (Auto) 2.1H, Sodium Level 130L, Potassium Level 4.7, Chloride Level 92L, Carbon Dioxide Level 27, Anion Gap 11, Blood Urea Nitrogen 42H, Creatinine 6.8H, Estimat Glomerular Filtration Rate 7.3, Glucose Level 126H , Calcium Level 9.0, Phosphorus Level 4.8, Total Bilirubin 0.6, Aspartate Amino Transf (AST/SGOT) 27, Alanine Aminotransferase (ALT/SGPT) 25, Alkaline Phosphatase 57, Total Protein 6.6, Albumin 2.9L, Globulin 3.7, Albumin/Globulin Ratio 0.8L Current Medications Medications (Trade) Dose Ordered Sig/Jesus Route PRN Reason Start Time Stop Time Status Last Admin Dose Admin Acetaminophen/ Hydrocodone Bitart ([place] 5/325) 1 tab Q4H PRN ORAL Pain 3-6 04/28/20 19:30 05/04/20 19:29 04/29/20 06:19 Aspirin (ASA) 81 mg DAILY ORAL 04/29/20 09:00 06/08/20 08:59 04/29/20 09:19 Atorvastatin Calcium (Lipitor) 40 mg BEDTIME ORAL 04/28/20 21:00 07/24/20 20:59 04/28/20 20:29 Cefepime HCl 1 gm/ Dextrose 55 ml @ 110 mls/hr Q24H IVPB 04/29/20 18:00 05/02/20 17:59 Chlorhexidine Gluconate (Cira-Hex 2%) 1 applic DAILY@2000 TOPIC 04/28/20 20:00 07/22/20 19:59 04/28/20 20:31 Dextrose 1,000 ml @ 40 mls/hr Q24H IV 04/28/20 19:30 05/28/20 19:29 04/28/20 20:29 Docusate Sodium (Colace) 100 mg THREE TIMES A DAY ORAL 04/29/20 13:00 05/29/20 12:59 Epoetin Jose (Epoetin Jose(ESRD on dialysis)) 4,000 unit SUN-SUN-SUN SUBQ 04/28/20 21:00 07/27/20 20:59 04/28/20 21:32 Folic Acid (Folate) 1 mg DAILY ORAL 04/29/20 09:00 05/26/20 08:59 04/29/20 09:19 Heparin Sodium (Porcine) (Heparin 5000 units/ml) 5,000 units EVERY 12 HOURS SUBQ 04/28/20 21:00 06/12/20 20:59 Hydralazine HCl (Apresoline) 25 mg Q4H PRN ORAL For blood pressure over 160 sy 04/28/20 19:45 07/24/20 19:36 Hydromorphone HCl (Dilaudid) 0.5 mg Q4H PRN SUBQ Pain 7-04/28/20 19:45 05/04/20 19:44 Midodrine (Pro-Amatine) 10 mg THREE TIMES A DAY ORAL 04/29/20 09:00 07/25/20 10:29 04/29/20 09:19 Ondansetron HCl (Zofran) 4 mg Q6H PRN IVP Nausea & Vomiting 04/28/20 19:45 05/25/20 19:37 Pantoprazole (Protonix) 40 mg EVERY 12 HOURS ORAL 04/28/20 21:00 05/24/20 08:59 04/29/20 09:19 Sevelamer Carbonate (Renvela) 800 mg THREE TIMES A DAY ORAL 04/29/20 09:00 07/23/20 08:59 04/29/20 12:36 Vancomycin HCl ([facility] pharmacy to dose) 1 ea DAILY PRN MISC Per rx protocol 04/28/20 19:45 05/28/20 19:44 Assessment/Plan Assessment/Plan ASSESSMENT: 1. Mild pulmonary edema 2. Decubitus wound, 3. End-stage renal disease, on temporary PermCath hemodialysis access. 2. Paroxysmal atrial fibrillation, 3. Diabetes type 2. 4. Hypertension. 5. Hyperlipidemia. 6. CVA-history. 7. Dementia. Plan: Continue local wound care Will continue oxygen and pulmonary hygiene Broad spectrum abx HD per renal; Suraj Henriquez MD Apr 29, 2020 16:46
[2020-04-29] MEDS ORDERED: Cefepime HCl 1 GM in D5W 55 ML IVPB SCH (18:00)
--- NOTE | 2020-04-29 19:17 | NUR ---
NURSE NOTES: Received hand-off report from VIKAS Kirkpatrick. Patient is alert and oriented x2, no changes in LOC, laboratory monitor in place, call light within reach, bed in lowest and locked position, bed alarm on. No acute signs of distress noted. Breathing is unlabored and breath sounds are clear.
--- NOTE | 2020-04-29 19:38 | NUR ---
HAND-OFF: Report given to Dale HINES.
--- NOTE | 2020-04-29 20:11 | NUR ---
NURSE NOTES: Called and left a voicemail for Dr. Roe regarding potential orders for expiratory wheezes noted in the prior shift. Patient currently is not in any acute distress, breathing is even, unlabored and breath sounds are clear, respirations 20, spO2: 93%. Awaiting doctor's orders. Lung sounds are clear upon auscultation.
--- NOTE | 2020-04-29 20:19 | NUR ---
NURSE NOTES: Called Dr. Banegas and left a voicemail regarding request for insulin. Patient is diabetic and insulin is potentially needed. Awaiting doctor's orders.
[2020-04-29] MEDS: Dyna-Hex 2% Top Sol 2oz TOPIC SCH (20:27)
[2020-04-29] MEDS: Atorvastatin 20mg tab ORAL SCH (20:30)
--- NOTE | 2020-04-29 23:30 | NUR ---
NURSE NOTES: Dr. Banegas gave orders to give average sliding scale insulin. Noted and carried out. Blood sugar at 21:00, 04/29 was 145. No coverage provided due to patient refusal to eat. Will continue to monitor blood sugar levels and encourage food intake.
--- NOTE | 2020-04-29 23:33 | NUR ---
NURSE NOTES: Notified Dr. Joy regarding one episode of sinus rhythm with PAC. Patient is asymptomatic, alert and oriented x2, no changes in LOC noted, vital signs stable. Addendum: 04/29/20 at 2337 by Dale Ferraro RN Awaiting Dr. Joy's response and any potential orders. Will continue to actively monitor.
--- NOTE | 2020-04-29 23:57 | NUR ---
NURSE NOTES: Dr. Joy aware of sinus rhythm with PAC episode. No new orders at this time.
[2020-04-30] VITALS (10 sets, daily range): BP systolic 88–160; BP diastolic 31–63
--- NOTE | 2020-04-30 04:56 | NUR ---
NURSE NOTES: Notified Dr. Joy regarding atrial fibrillation episode at 04:00. Awaiting Dr. Joy's order. Patient is asymptomatic and in stable condition. No changes in LOC noted. Addendum: 04/30/20 at 704 by Dale Ferraro RN 04:00 rhythm was actually sinus rhythm with PACs.
--- NOTE | 2020-04-30 05:49 | Pulmonology Progress Note ---
Subjective ROS Limited/Unobtainable: No Interval Events: Transferred out of ICU; much better now Constitutional: Reports: no symptoms HEENT: Repors: no symptoms Respiratory: Reports: no symptoms Cardiovascular: Reports: no symptoms Allergies: Coded Allergies: PENICILLINS (Verified Allergy, Unknown, 04/23/20) Tolerated Cefepime 04/23/20 Objective Last 24 Hour Vital Signs Date Time Temp Pulse Resp B/P (MAP) Pulse Ox O2 Delivery O2 Flow Rate FiO2 04/30/20 04:00 63 04/30/20 04:00 96.6 60 18 115/59 (77) 97 04/30/20 00:00 97.7 60 18 122/63 (82) 96 04/30/20 00:00 63 04/29/20 21:00 Nasal Cannula 2.0 Nasal Cannula 2.0 Nasal Cannula 2.0 04/29/20 20:41 98 Nasal Cannula 2.0 28 04/29/20 20:00 65 04/29/20 20:00 98.0 65 18 119/54 (75) 98 04/29/20 16:00 61 04/29/20 16:00 98.4 60 18 136/64 (88) 98 04/29/20 12:00 98.1 59 18 148/55 (86) 97 04/29/20 12:00 60 04/29/20 09:15 97 Nasal Cannula 2.0 28 04/29/20 09:00 Nasal Cannula 2.0 Nasal Cannula 2.0 Nasal Cannula 2.0 04/29/20 08:00 97.1 76 18 141/77 (98) 98 04/29/20 08:00 60 04/29/20 07:00 98.0 63 20 143/72 (95) 98 04/29/20 06:00 98.0 63 20 143/72 (95) 98 Intake and Output 04/29/20 04/30/20 19:00 07:00 Intake Total 720 ml Balance 720 ml Intake Oral 720 ml General Appearance: no acute distress HEENT: normocephalic Respiratory: chest wall non-tender Cardiovascular: normal peripheral pulses Abdomen: soft, non tender Microbiology Date/Time Source Procedure Growth Status 04/27/20 18:40 Blood Blood Culture - Preliminary NO GROWTH AFTER 24 HOURS Resulted 04/27/20 18:30 Blood Blood Culture - Preliminary NO GROWTH AFTER 24 HOURS Resulted Laboratory Tests 04/29/20 06:35: White Blood Count 6.5, Red Blood Count 3.22L, Hemoglobin 9.5L, Hematocrit 29.6L , Mean Corpuscular Volume 92, Mean Corpuscular Hemoglobin 29.6, Mean Corpuscular Hemoglobin Concent 32.1, Red Cell Distribution Width 15.0H, Platelet Count 148L, Mean Platelet Volume 7.9, Neutrophils (%) (Auto) 61.4, Lymphocytes (%) (Auto) 18.0L, Monocytes (%) (Auto) 11.6H, Eosinophils (%) (Auto ) 6.8H, Basophils (%) (Auto) 2.1H, Sodium Level 130L, Potassium Level 4.7, Chloride Level 92L, Carbon Dioxide Level 27, Anion Gap 11, Blood Urea Nitrogen 42H, Creatinine 6.8H, Estimat Glomerular Filtration Rate 7.3, Glucose Level 126H , Calcium Level 9.0, Phosphorus Level 4.8, Total Bilirubin 0.6, Aspartate Amino Transf (AST/SGOT) 27, Alanine Aminotransferase (ALT/SGPT) 25, Alkaline Phosphatase 57, Total Protein 6.6, Albumin 2.9L, Globulin 3.7, Albumin/Globulin Ratio 0.8L 04/29/20 20:51: POC Whole Blood Glucose [Pending] Current Medications Medications (Trade) Dose Ordered Sig/Jesus Route PRN Reason Start Time Stop Time Status Last Admin Dose Admin Acetaminophen/ Hydrocodone Bitart ([place] 5/325) 1 tab Q4H PRN ORAL Pain 3-6 04/28/20 19:30 05/04/20 19:29 04/29/20 06:19 Aspirin (ASA) 81 mg DAILY ORAL 04/29/20 09:00 06/08/20 08:59 04/29/20 09:19 Atorvastatin Calcium (Lipitor) 40 mg BEDTIME ORAL 04/28/20 21:00 07/24/20 20:59 04/29/20 20:30 Cefepime HCl 1 gm/ Dextrose 55 ml @ 110 mls/hr Q24H IVPB 04/29/20 18:00 05/02/20 17:59 04/29/20 18:39 Chlorhexidine Gluconate (Cira-Hex 2%) 1 applic DAILY@2000 TOPIC 04/28/20 20:00 07/22/20 19:59 04/29/20 20:27 Dextrose 1,000 ml @ 40 mls/hr Q24H IV 04/28/20 19:30 05/28/20 19:29 04/29/20 20:27 Dextrose (Dextrose 50%) 25 ml Q30M PRN IV Hypoglycemia 04/29/20 23:30 07/28/20 23:29 Dextrose (Dextrose 50%) 50 ml Q30M PRN IV Hypoglycemia 04/29/20 23:30 07/28/20 23:29 Docusate Sodium (Colace) 100 mg THREE TIMES A DAY ORAL 04/29/20 13:00 05/29/20 12:59 04/29/20 18:37 Epoetin Jose (Epoetin Jose(ESRD on dialysis)) 4,000 unit SUBQ 04/28/20 21:00 07/27/20 20:59 04/28/20 21:32 Folic Acid (Folate) 1 mg DAILY ORAL 04/29/20 09:00 05/26/20 08:59 04/29/20 09:19 Heparin Sodium (Porcine) (Heparin 5000 units/ml) 5,000 units EVERY 12 HOURS SUBQ 04/28/20 21:00 06/12/20 20:59 Hydralazine HCl (Apresoline) 25 mg Q4H PRN ORAL For blood pressure over 160 sy 04/28/20 19:45 07/24/20 19:36 Hydromorphone HCl (Dilaudid) 0.5 mg Q4H PRN SUBQ Pain 7-10 04/28/20 19:45 05/04/20 19:44 Insulin Aspart (NovoLOG) BEFORE MEALS AND HS SUBQ 04/30/20 06:30 07/29/20 06:29 Midodrine (Pro-Amatine) 10 mg THREE TIMES A DAY ORAL 04/29/20 09:00 07/25/20 10:29 04/29/20 09:19 Ondansetron HCl (Zofran) 4 mg Q6H PRN IVP Nausea & Vomiting 04/28/20 19:45 05/25/20 19:37 Pantoprazole (Protonix) 40 mg EVERY 12 HOURS ORAL 04/28/20 21:00 05/24/20 08:59 04/29/20 20:27 Sevelamer Carbonate (Renvela) 800 mg THREE TIMES A DAY ORAL 04/29/20 09:00 07/23/20 08:59 04/29/20 18:37 [facility]com[facility] 1 ea DAILY PRN MISC Per rx protocol 04/28/20 19:45 05/28/20 19:44 Assessment/Plan Assessment/Plan ASSESSMENT: 1. Mild pulmonary edema 2. Decubitus wound, 3. End-stage renal disease, on temporary PermCath hemodialysis access. 2. Paroxysmal atrial fibrillation, 3. Diabetes type 2. 4. Hypertension. 5. Hyperlipidemia. 6. CVA-history. 7. Dementia. Plan: Continue local wound care Will continue oxygen and pulmonary hygiene Broad spectrum abx HD per renal; Suraj Henriquez MD Apr 30, 2020 05:48
[2020-04-30 06:19] LABS: BASOPHILS % (AUTO) 2.5 % (0.0-2.0); EOSINOPHILS % (AUTO) 5.8 % (0.0-3.0); HEMATOCRIT 24.8 % (37.0-47.0); HEMOGLOBIN 8.1 G/DL (12.0-16.0); LYMPHOCYTES % (AUTO) 20.1 % (20.0-45.0); MEAN CORPUSCULAR VOLUME 92 FL (80-99); MONOCYTES % (AUTO) 12.2 % (1.0-10.0); NEUTROPHILS % (AUTO) 59.3 % (45.0-75.0); PLATELET COUNT 135 K/UL (150-450); RED BLOOD COUNT 2.69 M/UL (4.20-5.40); RED CELL DISTRIBUTION WIDTH 15.2 % (11.6-14.8); WHITE BLOOD COUNT 5.6 K/UL (4.8-10.8)
--- NOTE | 2020-04-30 06:20 | Hematology/Onc Progress Note ---
Assessment/Plan Assessment/Plan Assessment and Recs # Thombocytopenia is likely 2/2 Cellulitis of left foot --> as per id --> abx started vanc --> plt trend 150-->102-->92-->103-->133-->148 --> hold anticoag if plt <50 --> abx vanc/cefepime # Anemia is likely due to esrd, has been under care of Dr. Stephenson --> continue hd as needed --> with permacath in place on chest, no infection --> EPOGEN 4k dose 3 times a week started --> hgb trend 12-->9 # Hypercoagulable disorder with afib hx --> on eliquis which has been started --> no bleeding noted # ESRD (end stage renal disease) --> per renal care # Diabetic nephropathy --> wound care and endo recs --> a1c goal <8 # Dvt ppx eliquis CARLO Rn and appreciate consultation Subjective HEENT: Denies: no symptoms, eye pain, blurred vision, tearing, double vision, ear pain, ear discharge, nose pain, nose congestion, throat pain, throat swelling, mouth pain, mouth swelling, other Cardiovascular: Denies: no symptoms, chest pain, edema, irregular heart rate, lightheadedness, palpitations, syncope, other Respiratory: Denies: no symptoms, cough, shortness of breath, SOB with excertion, SOB at rest, sputum, wheezing, other Genitourinary: Denies: no symptoms, burning, discharge, frequency, flank pain, hematuria, incontinence, pain, urgency, other Neurologic/Psychiatric: Denies: no symptoms, anxiety, depressed, emotional problems, headache, numbness, paresthesia, pre-existing deficit, seizure, tingling, tremors, weakness, other Endocrine: Denies: no symptoms, excessive sweating, flushing, intolerance to cold, intolerance to heat, increased hunger, increased thirst, increased urine, unexplained weight gain, unexplained weight loss, other Allergies: Coded Allergies: PENICILLINS (Verified Allergy, Unknown, 04/23/20) Tolerated Cefepime 04/23/20 Subjective 04/26 seen by renal, is for hd tomorrow, labs noted, plts are lower 04/27 labs noted, no bleeding, for hd, hgb currently lower at 9 04/28 meds noted, no bleeding, carlo rn, permcath to dc 04/29 labs still pending, no bleeding, remains forgetful, no bleeding 04/30 no major changes, no bleeding, cbc is noted Objective Objective Current Medications Medications (Trade) Dose Ordered Sig/Jesus Route PRN Reason Start Time Stop Time Status Last Admin Dose Admin Acetaminophen/ Hydrocodone Bitart ([place] 5/325) 1 tab Q4H PRN ORAL Pain 3-6 04/28/20 19:30 05/04/20 19:29 04/29/20 06:19 Aspirin (ASA) 81 mg DAILY ORAL 04/29/20 09:00 06/08/20 08:59 04/29/20 09:19 Atorvastatin Calcium (Lipitor) 40 mg BEDTIME ORAL 04/28/20 21:00 07/24/20 20:59 04/29/20 20:30 Cefepime HCl 1 gm/ Dextrose 55 ml @ 110 mls/hr Q24H IVPB 04/29/20 18:00 05/02/20 17:59 04/29/20 18:39 Chlorhexidine Gluconate (Cira-Hex 2%) 1 applic DAILY@2000 TOPIC 04/28/20 20:00 07/22/20 19:59 04/29/20 20:27 Dextrose 1,000 ml @ 40 mls/hr Q24H IV 04/28/20 19:30 05/28/20 19:29 04/29/20 20:27 Dextrose (Dextrose 50%) 25 ml Q30M PRN IV Hypoglycemia 04/29/20 23:30 07/28/20 23:29 Dextrose (Dextrose 50%) 50 ml Q30M PRN IV Hypoglycemia 04/29/20 23:30 07/28/20 23:29 Docusate Sodium (Colace) 100 mg THREE TIMES A DAY ORAL 04/29/20 13:00 05/29/20 12:59 04/29/20 18:37 Epoetin Jose (Epoetin Jose(ESRD on dialysis)) 4,000 unit SUN-SUN-SUN SUBQ 04/28/20 21:00 07/27/20 20:59 04/28/20 21:32 Folic Acid (Folate) 1 mg DAILY ORAL 04/29/20 09:00 05/26/20 08:59 04/29/20 09:19 Heparin Sodium (Porcine) (Heparin 5000 units/ml) 5,000 units EVERY 12 HOURS SUBQ 04/28/20 21:00 06/12/20 20:59 Hydralazine HCl (Apresoline) 25 mg Q4H PRN ORAL For blood pressure over 160 sy 04/28/20 19:45 07/24/20 19:36 Hydromorphone HCl (Dilaudid) 0.5 mg Q4H PRN SUBQ Pain 7-04/28/20 19:45 05/04/20 19:44 Insulin Aspart (NovoLOG) BEFORE MEALS AND HS SUBQ 04/30/20 06:30 07/29/20 06:29 Midodrine (Pro-Amatine) 10 mg THREE TIMES A DAY ORAL 04/29/20 09:00 07/25/20 10:29 04/29/20 09:19 Ondansetron HCl (Zofran) 4 mg Q6H PRN IVP Nausea & Vomiting 04/28/20 19:45 05/25/20 19:37 Pantoprazole (Protonix) 40 mg EVERY 12 HOURS ORAL 04/28/20 21:00 05/24/20 08:59 04/29/20 20:27 Sevelamer Carbonate (Renvela) 800 mg THREE TIMES A DAY ORAL 04/29/20 09:00 07/23/20 08:59 04/29/20 18:37 Vancomycin HCl ([facility]) 1 ea DAILY PRN MISC Per rx protocol 04/28/20 19:45 05/28/20 19:44 Last 24 Hour Vital Signs Date Time Temp Pulse Resp B/P (MAP) Pulse Ox O2 Delivery O2 Flow Rate FiO2 04/30/20 04:00 63 04/30/20 04:00 96.6 60 18 115/59 (77) 97 04/30/20 00:00 97.7 60 18 122/63 (82) 96 04/30/20 00:00 63 04/29/20 21:00 Nasal Cannula 2.0 Nasal Cannula 2.0 Nasal Cannula 2.0 04/29/20 20:41 98 Nasal Cannula 2.0 28 04/29/20 20:00 65 04/29/20 20:00 98.0 65 18 119/54 (75) 98 7/23/20 16:00 61 04/29/20 16:00 98.4 60 18 136/64 (88) 98 04/29/20 12:00 98.1 59 18 148/55 (86) 97 04/29/20 12:00 60 04/29/20 09:15 97 Nasal Cannula 2.0 28 04/29/20 09:00 Nasal Cannula 2.0 Nasal Cannula 2.0 Nasal Cannula 2.0 04/29/20 08:00 97.1 76 18 141/77 (98) 98 04/29/20 08:00 60 04/29/20 07:00 98.0 63 20 143/72 (95) 98 04/29/20 06:00 98.0 63 20 143/72 (95) 98 04/29/20 05:00 98.0 60 20 150/68 (95) 98 04/29/20 04:00 98.4 60 20 150/68 (95) 98 04/29/20 04:00 60 04/29/20 03:00 98.3 63 19 130/76 (94) 98 04/29/20 02:00 98.0 60 20 126/65 (85) 98 04/29/20 01:00 98.5 71 19 123/63 (83) 98 04/29/20 00:00 98.2 69 20 126/57 (80) 98 04/29/20 00:00 66 04/28/20 23:00 98.3 61 20 142/70 (94) 99 04/28/20 22:00 97.6 68 20 140/66 (90) 96 04/28/20 21:00 98.2 68 20 143/71 (95) 99 04/28/20 20:00 62 04/28/20 20:00 98.0 65 20 149/65 (93) 97 04/28/20 19:09 98.1 67 22 144/49 (80) 100 04/28/20 18:43 98.1 67 22 144/49 (80) 100 04/28/20 18:37 68 04/28/20 18:00 71 12 160/73 (102) 96 04/28/20 17:00 60 13 157/81 (106) 98 04/28/20 16:00 97.8 60 12 131/72 (91) 97 04/28/20 16:00 60 04/28/20 15:05 98.5 04/28/20 15:00 60 9 127/62 (83) 97 04/28/20 13:00 63 8 143/68 (93) 97 04/28/20 12:00 60 04/28/20 12:00 60 9 130/56 (80) 98 04/28/20 11:03 64 11 130/54 (79) 98 04/28/20 09:00 62 11 157/71 (99) 97 04/28/20 08:00 62 13 139/55 (83) 99 04/28/20 08:00 60 04/28/20 07:00 60 11 158/60 (92) 98 Intake and Output 04/29/20 04/30/20 19:00 07:00 Intake Total 720 ml Balance 720 ml Intake Oral 720 ml Labs Test 04/28/20 03:20 04/29/20 06:35 04/29/20 20:51 04/30/20 05:45 White Blood Count 5.6 K/UL (4.8-10.8) 6.5 K/UL (4.8-10.8) Red Blood Count 2.97 M/UL (4.20-5.40) 3.22 M/UL (4.20-5.40) Hemoglobin 9.0 G/DL (12.0-16.0) 9.5 G/DL (12.0-16.0) Hematocrit 28.1 % (37.0-47.0) 29.6 % (37.0-47.0) Mean Corpuscular Volume 95 FL (80-99) 92 FL (80-99) Mean Corpuscular Hemoglobin 30.2 PG (27.0-31.0) 29.6 PG (27.0-31.0) Mean Corpuscular Hemoglobin Concent 31.9 G/DL (32.0-36.0) 32.1 G/DL (32.0-36.0) Red Cell Distribution Width 15.4 % (11.6-14.8) 15.0 % (11.6-14.8) Platelet Count 133 K/UL (150-450) 148 K/UL (150-450) Mean Platelet Volume 9.4 FL (6.5-10.1) 7.9 FL (6.5-10.1) Neutrophils (%) (Auto) 64.9 % (45.0-75.0) 61.4 % (45.0-75.0) Lymphocytes (%) (Auto) 16.8 % (20.0-45.0) 18.0 % (20.0-45.0) Monocytes (%) (Auto) 10.8 % (1.0-10.0) 11.6 % (1.0-10.0) Eosinophils (%) (Auto) 5.5 % (0.0-3.0) 6.8 % (0.0-3.0) Basophils (%) (Auto) 1.9 % (0.0-2.0) 2.1 % (0.0-2.0) Sodium Level 137 MMOL/L (136-145) 130 MMOL/L (136-145) Potassium Level 4.6 MMOL/L (3.5-5.1) 4.7 MMOL/L (3.5-5.1) Chloride Level 97 MMOL/L (98-107) 92 MMOL/L (98-107) Carbon Dioxide Level 27 MMOL/L (21-32) 27 MMOL/L (21-32) Anion Gap 14 mmol/L (5-15) 11 mmol/L (5-15) Blood Urea Nitrogen 36 mg/dL (7-18) 42 mg/dL (7-18) Creatinine 5.5 MG/DL (0.55-1.30) 6.8 MG/DL (0.55-1.30) Estimat Glomerular Filtration Rate 9.2 mL/min (>60) 7.3 mL/min (>60) Glucose Level 94 MG/DL (74-106) 126 MG/DL (74-106) Uric Acid 4.4 MG/DL (2.6-7.2) Calcium Level 8.9 MG/DL (8.5-10.1) 9.0 MG/DL (8.5-10.1) Phosphorus Level 4.1 MG/DL (2.5-4.9) 4.8 MG/DL (2.5-4.9) Magnesium Level 2.2 MG/DL (1.8-2.4) Total Bilirubin 0.5 MG/DL (0.2-1.0) 0.6 MG/DL (0.2-1.0) Aspartate Amino Transf (AST/SGOT) 26 U/L (15-37) 27 U/L (15-37) Alanine Aminotransferase (ALT/SGPT) 22 U/L (12-78) 25 U/L (12-78) Alkaline Phosphatase 57 U/L (46-116) 57 U/L (46-116) Troponin I 0.014 ng/mL (0.000-0.056) C-Reactive Protein, Quantitative 14.1 mg/dL (0.00-0.90) Total Protein 6.4 G/DL (6.4-8.2) 6.6 G/DL (6.4-8.2) Albumin 2.8 G/DL (3.4-5.0) 2.9 G/DL (3.4-5.0) Globulin 3.6 g/dL 3.7 g/dL Albumin/Globulin Ratio 0.8 (1.0-2.7) 0.8 (1.0-2.7) Random Vancomycin Level 16.0 ug/mL Height (Feet): 5 Height (Inches): 5.00 Weight (Pounds): 259 Objective Physical Exam Vitals: reviewed Gen: no apparent distress, alert, non-toxic, obese, Chronically Ill HEENT: hearing grossly normal, normal voice Neck: full range of motion Resp: chest non-tender, lungs clear, normal breath sounds, no respiratory distress, permacath left side Cardiovascular: regular rate, rhythm, no edema, other - slow cap refill time of lower extremities bilaterally GI: normal bowel sounds, non tender, soft Msk: normal range of motion, non-tender, other - PT. wheel chair bound Neuro: alert, oriented x3, responsive, speech normal, sensory deficit Psychiatric: judgement/insight normal Skin: Decubitus/Ulcer - 2cm in diameter with a deeper necrotic 0.6cm center. erythema- pressure sore on tailbone. no skin break down Husam Byers MD Apr 30, 2020 06:20
[2020-04-30] MEDS: NovoLOG Insulin Flexpen SUBQ SCH ×4 (06:30→21:00)
[2020-04-30 06:45] LABS: ALANINE AMINOTRANSFERASE 18 U/L (12-78); ALBUMIN 2.6 G/DL (3.4-5.0); ALBUMIN/GLOBULIN RATIO 0.8 (1.0-2.7); ALKALINE PHOSPHATASE 53 U/L (46-116); ANION GAP 8 mmol/L (5-15); ASPARTATE AMINO TRANSFERASE 21 U/L (15-37); BILIRUBIN,TOTAL 0.4 MG/DL (0.2-1.0); BLOOD UREA NITROGEN 49 mg/dL (7-18); CALCIUM 8.6 MG/DL (8.5-10.1); CARBON DIOXIDE 29 MMOL/L (21-32); CHLORIDE 91 MMOL/L (98-107); CREATININE 7.7 MG/DL (0.55-1.30); POTASSIUM 4.6 MMOL/L (3.5-5.1); SODIUM 128 MMOL/L (136-145)
--- NOTE | 2020-04-30 07:03 | NUR ---
HAND-OFF: Report given to VIKAS Mir. Plan of care endorsed. Patient in stable condition.
--- NOTE | 2020-04-30 07:20 | Cardiology Progress Note ---
Assessment/Plan Assessment/Plan 1. Hypotension, resolved, likely caused by gram + bacteremia, 2D echo shows normal LV systolic function. 2. Slight elevation of troponin I level due to hypotension/shock. Continue ASA and atorvastatin. 3. Paroxysmal atrial fibrillation. Continue amiodarone and apixaban. 4. History of CVA with left hemiparesis. 5. Hypoxic hypercarbic respiratory failure. 6. ESRD Subjective Subjective Atrial paced ventricular sensed at rate of 60. On NC oxygen. Objective Last 24 Hour Vital Signs Date Time Temp Pulse Resp B/P (MAP) Pulse Ox O2 Delivery O2 Flow Rate FiO2 04/30/20 04:00 63 04/30/20 04:00 96.6 60 18 115/59 (77) 97 04/30/20 00:00 97.7 60 18 122/63 (82) 96 04/30/20 00:00 63 04/29/20 21:00 Nasal Cannula 2.0 Nasal Cannula 2.0 Nasal Cannula 2.0 04/29/20 20:41 98 Nasal Cannula 2.0 28 04/29/20 20:00 65 04/29/20 20:00 98.0 65 18 119/54 (75) 98 04/29/20 16:00 61 04/29/20 16:00 98.4 60 18 136/64 (88) 98 04/29/20 12:00 98.1 59 18 148/55 (86) 97 04/29/20 12:00 60 04/29/20 09:15 97 Nasal Cannula 2.0 28 04/29/20 09:00 Nasal Cannula 2.0 Nasal Cannula 2.0 Nasal Cannula 2.0 04/29/20 08:00 97.1 76 18 141/77 (98) 98 04/29/20 08:00 60 Intake and Output 04/29/20 04/30/20 18:59 06:59 Intake Total 720 ml Balance 720 ml Intake Oral 720 ml 2D Echo: LVEF 60%, JENY, Severe RI, RVSP 61 mmHg Laboratory Tests Test 04/29/20 20:51 04/30/20 05:45 POC Whole Blood Glucose Pending White Blood Count 5.6 K/UL (4.8-10.8) Red Blood Count 2.69 M/UL (4.20-5.40) L Hemoglobin 8.1 G/DL (12.0-16.0) L Hematocrit 24.8 % (37.0-47.0) L Mean Corpuscular Volume 92 FL (80-99) Mean Corpuscular Hemoglobin 30.1 PG (27.0-31.0) Mean Corpuscular Hemoglobin Concent 32.7 G/DL (32.0-36.0) Red Cell Distribution Width 15.2 % (11.6-14.8) H Platelet Count 135 K/UL (150-450) L Mean Platelet Volume 7.6 FL (6.5-10.1) Neutrophils (%) (Auto) 59.3 % (45.0-75.0) Lymphocytes (%) (Auto) 20.1 % (20.0-45.0) Monocytes (%) (Auto) 12.2 % (1.0-10.0) H Eosinophils (%) (Auto) 5.8 % (0.0-3.0) H Basophils (%) (Auto) 2.5 % (0.0-2.0) H Prothrombin Time 11.4 SEC (9.30-11.50) Prothromb Time International Ratio 1.0 (0.9-1.1) Activated Partial Thromboplast Time 30 SEC (23-33) Sodium Level 128 MMOL/L (136-145) L Potassium Level 4.6 MMOL/L (3.5-5.1) Chloride Level 91 MMOL/L (98-107) L Carbon Dioxide Level 29 MMOL/L (21-32) Anion Gap 8 mmol/L (5-15) Blood Urea Nitrogen 49 mg/dL (7-18) H Creatinine 7.7 MG/DL (0.55-1.30) H Estimat Glomerular Filtration Rate 6.3 mL/min (>60) Glucose Level 119 MG/DL (74-106) H Calcium Level 8.6 MG/DL (8.5-10.1) Total Bilirubin 0.4 MG/DL (0.2-1.0) Aspartate Amino Transf (AST/SGOT) 21 U/L (15-37) Alanine Aminotransferase (ALT/SGPT) 18 U/L (12-78) Alkaline Phosphatase 53 U/L (46-116) Total Protein 5.8 G/DL (6.4-8.2) L Albumin 2.6 G/DL (3.4-5.0) L Globulin 3.2 g/dL Albumin/Globulin Ratio 0.8 (1.0-2.7) L Microbiology Date/Time Source Procedure Growth Status 04/27/20 18:40 Blood Blood Culture - Preliminary NO GROWTH AFTER 48 HOURS Resulted 04/27/20 18:30 Blood Blood Culture - Preliminary NO GROWTH AFTER 48 HOURS Resulted Objective HEENT: Atraumatic, normocephalic. Anicteric. Pupils are equal, round, and reactive to light and accommodation. Extraocular muscles intact. NECK: JVP cannot be assessed. No carotid bruit. Carotid upstroke is 2+ bilaterally. CARDIOVASCULAR: Normal S1, S2. There is 2/6 mid systolic murmur at the left sternal border. PMI is at fourth intercostal space at the midclavicular line, + pacemaker pocket left side. LUNGS: Bibasilar crackles. ABDOMEN: Soft, nontender, and nondistended. No hepatosplenomegaly. Positive bowel sounds. EXTREMITIES: Diminished dorsalis pedis pulses of 1+. There is diminished motor function on the left lower extremity and upper extremity. Triston Joy MD Apr 30, 2020 07:20
--- NOTE | 2020-04-30 07:30 | NUR ---
NURSE NOTES: Received report from Ana Lilia BEAN. Pt in bed sleeping. Bed locked and in lowest position. No signs of SOB or distress noted. Respirations 16. Call light within reach. Whiteboard updated.
[2020-04-30] MEDS: Midodrine 10mg tab ORAL SCH ×3 (08:16→17:20)
[2020-04-30] MEDS: Aspirin Baby 81mg ORAL SCH ×2 (08:17→08:29)
[2020-04-30] MEDS: Renvela 800mg Pkt ORAL SCH ×3 (08:17→17:21)
[2020-04-30] MEDS: Docusate 100mg/10ml Liq ORAL SCH ×3 (08:17→17:21)
[2020-04-30] MEDS: Heparin 5000 units/ml inj SUBQ SCH ×2 (08:18→21:00)
[2020-04-30] MEDS ORDERED: Pantoprazole Inj IVP SCH (10:00)
--- NOTE | 2020-04-30 10:00 | NUR ---
NURSE NOTES: Spoke to Dr. Stephenson re low BP. Per MD. continue to monitor, pt is ok as long as she remains asymptomatic.
--- NOTE | 2020-04-30 10:01 | NUR ---
NURSE NOTES: Pt bp 88/31. Left voicemail with Dr. Stephenson and informed him of low BP and hemoglobin trending down. Midodrine 10mg given.
--- NOTE | 2020-04-30 10:16 | Nephrology Progress Note ---
Assessment/Plan Problem List: (1) ESRD (end stage renal disease) (2) Pacemaker (3) Diabetic nephropathy (4) Cellulitis of left foot (5) Anemia in chronic kidney disease (CKD) (6) History of CVA (cerebrovascular accident) (7) History of atrial fibrillation Plan April 30: Patient due for insertion of a permacath today. Will arrange for dialysis tomorrow. Blood cultures remain negative. COVID-19 test negative. Discussed with RN. April 29: Permacath was taken out yesterday. Will place the catheter tomorrow. Blood cultures negative so far. Continue per consultants. April 28: Dialyzed yesterday. Will remove permacath today. Will do surveillance blood culture. Will aim to put catheter back in 48 hours. April 27: Due for dialysis today. Potassium 5.6. Will give Kayexalate. Blood pressure better under control. Continue per consultants. Also as per ID recommendation based on the blood culture results will remove the permacath tomorrow and will send the tip for culture. Will aim to have another catheter in 48 hours later. In the interim we will do surveillance blood culture. Patient received dialysis last evening for hyperkalemia. Patient had to be transferred to ICU for low blood pressure despite of multiple fluid challenges. Currently in ICU blood pressure 85-90 systolic. Patient on no blood pressure medication. Troponin I slightly elevated. 2D echocardiogram pending. Will start midodrine. Will aim to dialyze tomorrow. Monitor H&H and renal parameters and electrolytes Antibiotic per ID Pain medication adjusted Continue per consultants Subjective ROS Limited/Unobtainable: No Constitutional: Reports: malaise Objective Objective Last 24 Hour Vital Signs Date Time Temp Pulse Resp B/P (MAP) Pulse Ox O2 Delivery O2 Flow Rate FiO2 04/30/20 08:00 98.1 50 18 88/31 (50) 98 04/30/20 04:00 63 04/30/20 04:00 96.6 60 18 115/59 (77) 97 04/30/20 00:00 97.7 60 18 122/63 (82) 96 04/30/20 00:00 63 04/29/20 21:00 Nasal Cannula 2.0 Nasal Cannula 2.0 Nasal Cannula 2.0 04/29/20 20:41 98 Nasal Cannula 2.0 28 04/29/20 20:00 65 04/29/20 20:00 98.0 65 18 119/54 (75) 98 04/29/20 16:00 61 04/29/20 16:00 98.4 60 18 136/64 (88) 98 04/29/20 12:00 98.1 59 18 148/55 (86) 97 04/29/20 12:00 60 Intake and Output 04/29/20 04/30/20 19:00 07:00 Intake Total 720 ml Balance 720 ml Intake Oral 720 ml Current Medications Medications (Trade) Dose Ordered Sig/Jesus Route PRN Reason Start Time Stop Time Status Last Admin Dose Admin Acetaminophen/ Hydrocodone Bitart ([place] 5/325) 1 tab Q4H PRN ORAL Pain 3-6 04/28/20 19:30 05/04/20 19:29 04/29/20 06:19 Aspirin (ASA) 81 mg DAILY ORAL 04/29/20 09:00 06/08/20 08:59 04/29/20 09:19 Atorvastatin Calcium (Lipitor) 40 mg BEDTIME ORAL 04/28/20 21:00 07/24/20 20:59 04/29/20 20:30 Barium Sulfate (Varibar Honey) 250 ml NOW PRN Radiology Procedure 04/30/20 12:15 05/03/20 12:15 Barium Sulfate (Varibar Greenhorn) 230 ml NOW PRN Radiology Procedure 04/30/20 12:15 05/03/20 12:15 Barium Sulfate (Varibar Pudding) 230 ml NOW PRN Radiology Procedure 04/30/20 12:15 05/03/20 12:15 Chlorhexidine Gluconate (Cira-Hex 2%) 1 applic DAILY@2000 TOPIC 04/28/20 20:00 07/22/20 19:59 04/29/20 20:27 Dextrose 1,000 ml @ 40 mls/hr Q24H IV 04/28/20 19:30 05/28/20 19:29 04/29/20 20:27 Dextrose (Dextrose 50%) 25 ml Q30M PRN IV Hypoglycemia 04/29/20 23:30 07/28/20 23:29 Dextrose (Dextrose 50%) 50 ml Q30M PRN IV Hypoglycemia 04/29/20 23:30 07/28/20 23:29 Docusate Sodium (Colace) 100 mg THREE TIMES A DAY ORAL 04/29/20 13:00 05/29/20 12:59 04/30/20 14:10 Epoetin Jose (Epoetin Jose(ESRD on dialysis)) 4,000 unit SUN-SUN-SUN SUBQ 04/28/20 21:00 07/27/20 20:59 04/28/20 21:32 Folic Acid (Folate) 1 mg DAILY ORAL 04/29/20 09:00 05/26/20 08:59 04/30/20 08:17 Heparin Sodium (Porcine) (Heparin 5000 units/ml) 5,000 units EVERY 12 HOURS SUBQ 04/28/20 21:00 06/12/20 20:59 Heparin Sodium (Porcine) (Heparin Sod 1000 units/ml 10ml) 1,000 unit ONCE PRN INJ radiology procedure 04/30/20 13:45 05/01/20 23:59 Heparin Sodium/ Sodium Chloride (Heparin 1000 units/500ml Premix) 1,000 unit ONCE PRN INJ radiology procedure 04/30/20 13:45 05/01/20 23:59 Hydralazine HCl (Apresoline) 25 mg Q4H PRN ORAL For blood pressure over 160 sy 04/28/20 19:45 07/24/20 19:36 Hydromorphone HCl (Dilaudid) 0.5 mg Q4H PRN SUBQ Pain 7-10 04/28/20 19:45 05/04/20 19:44 Insulin Aspart (NovoLOG) BEFORE MEALS AND HS SUBQ 04/30/20 06:30 07/29/20 06:29 Lidocaine/ Epinephrine (Lidocaine 2%/ Epi 20ml) 40 ml ONCE PRN INJ radiology procedure 04/30/20 13:45 05/01/20 23:59 Midodrine (Pro-Amatine) 10 mg THREE TIMES A DAY ORAL 04/29/20 09:00 07/25/20 10:29 04/30/20 08:16 Ondansetron HCl (Zofran) 4 mg Q6H PRN IVP Nausea & Vomiting 04/28/20 19:45 05/25/20 19:37 Pantoprazole (Protonix) 40 mg DAILY IVP 04/30/20 10:00 05/30/20 09:59 04/30/20 14:10 Sevelamer Carbonate (Renvela) 800 mg THREE TIMES A DAY ORAL 04/29/20 09:00 07/23/20 08:59 04/30/20 14:10 Vancomycin HCl ([facility] pharmacy to dose) 1 ea DAILY PRN MISC Per rx protocol 04/28/20 19:45 05/28/20 19:44 Laboratory Tests 04/29/20 20:51: POC Whole Blood Glucose [Pending] 04/30/20 05:45: White Blood Count 5.6, Red Blood Count 2.69L, Hemoglobin 8.1L, Hematocrit 24.8L , Mean Corpuscular Volume 92, Mean Corpuscular Hemoglobin 30.1, Mean Corpuscular Hemoglobin Concent 32.7, Red Cell Distribution Width 15.2H, Platelet Count 135L, Mean Platelet Volume 7.6, Neutrophils (%) (Auto) 59.3, Lymphocytes (%) (Auto) 20.1, Monocytes (%) (Auto) 12.2H, Eosinophils (%) (Auto) 5.8H, Basophils (%) (Auto) 2.5H, Prothrombin Time 11.4, Prothromb Time International Ratio 1.0, Activated Partial Thromboplast Time 30, Sodium Level 128L, Potassium Level 4.6, Chloride Level 91L, Carbon Dioxide Level 29, Anion Gap 8, Blood Urea Nitrogen 49H, Creatinine 7.7H, Estimat Glomerular Filtration Rate 6.3, Glucose Level 119H, Calcium Level 8.6, Total Bilirubin 0.4, Aspartate Amino Transf (AST/SGOT) 21, Alanine Aminotransferase (ALT/SGPT) 18, Alkaline Phosphatase 53, Total Protein 5.8L, Albumin 2.6L, Globulin 3.2, Albumin/ Globulin Ratio 0.8L Height (Feet): 5 Height (Inches): 5.00 Weight (Pounds): 260 General Appearance: no apparent distress, lethargic Cardiovascular: normal rate Respiratory/Chest: decreased breath sounds Abdomen: soft Manas Stephenson MD Apr 30, 2020 10:16
--- NOTE | 2020-04-30 10:35 | NUR ---
NURSE NOTES: [facility] called and notified them of dialysis scheduled for tomorrow.
[2020-04-30] MEDS ORDERED: Varibar Honey 250ml MC PRN (12:15)
[2020-04-30] MEDS ORDERED: Varibar Nectar 240ml MC PRN (12:15)
[2020-04-30] MEDS ORDERED: Varibar Pudding 230ml MC PRN (12:15)
--- NOTE | 2020-04-30 13:28 | NUR ---
RD ASSESSMENT & RECOMMENDATIONS SEE CARE ACTIVITY FOR COMPLETE ASSESSMENT DAILY ESTIMATED NEEDS: Needs based on ESRD on HD, wound obese 72.8kg abw 20-30 kcals/kg 4750-1150 total kcals 1.8-2.5 IBW 56.8kg g protein/kg 102-142 g total protein Fluid per MD on HD NUTRITION DIAGNOSIS: Increased protein needs r/t renal dysfunction and wound healing as evidenced by pt w/ ESRD on HD, w/ L heel unstageable wound. CURRENT DIET:Renal /ms ground PO DIET RECOMMENDATIONS: RENAL DIET + DOUBLE PROTEIN PORTIONS ADDITIONAL RECOMMENDATIONS: 1) Maintain calibrated bed scale wts 2) Add NEPRO 1 tetra w/ meals 3) Check lytes daily 4) Wound care: SOLEDAD BID + Nephrovite x1 daily Vit C-> dosing per nephro 5) Poor po noted for 1-2 days, rec [employer] eval for alertness, (04/30) [employer] eval pending today, will f/up
[2020-04-30] MEDS ORDERED: Lidocaine 2% 20mg/ml/Epi 0.005mg/ml 20ml vial INJ PRN (13:45)
[2020-04-30] MEDS ORDERED: Heparin1,000 units/500ml Premix(Conc:2 units/ml) INJ PRN ×2 (13:45)
[2020-04-30] MEDS ORDERED: Heparin Sod 1000 units/ml 10ml INJ PRN ×2 (13:45)
--- NOTE | 2020-04-30 14:04 | Pre-Procedure Note/Attestation ---
Pre-Procedure Note/Attestation Complete Prior to Procedure Planned Procedure: not applicable Procedure Narrative: permacath Indications for Procedure Pre-Operative Diagnosis: renal failure Attestation I attest that I discussed the nature of the procedure; its benefits; risks and complications; and alternatives (and the risks and benefits of such alternatives ), prior to the procedure, with the patient (or the patient's legal public relations representative). I attest that, if there was a reasonable possibility of needing a blood transfusion, the patient (or the patient's legal public relations representative) was given the [facility] standardized written summary, pursuant to the Alvaro Jduit Blood Safety Act ([place] Health and Safety Code # 1645, as amended). I attest that I re-evaluated the patient just prior to the surgery and that there has been no change in the patient's H&P, except as documented below: Mello Chaudhry MD Apr 30, 2020 14:04
--- NOTE | 2020-04-30 14:07 | Diagnostic Imaging Report ---
Indication: Cough Technique: One view of the chest Comparison: 04/25/2020 Findings: Patient is rotated to the right. Mild perihilar congestive changes are similar to the prior exam. Left chest pacemaker is again demonstrated. Previously demonstrated right jugular tunneled dialysis catheter is no longer evident. Impression: Mild perihilar interstitial congestion, unchanged from 04/25/2020. Interim tunneled dialysis catheter removal.
--- NOTE | 2020-04-30 14:10 | Surgery Progress Note ---
Surgery Progress Note Subjective Additional Comments no acute events labs noted exam stable Objective Last 24 Hour Vital Signs Date Time Temp Pulse Resp B/P (MAP) Pulse Ox O2 Delivery O2 Flow Rate FiO2 04/30/20 12:01 97.7 74 18 121/45 (70) 100 04/30/20 12:00 61 04/30/20 09:00 Nasal Cannula 2.0 Nasal Cannula 2.0 Nasal Cannula 2.0 04/30/20 08:00 60 04/30/20 08:00 98.1 50 18 88/31 (50) 98 04/30/20 04:00 63 04/30/20 04:00 96.6 60 18 115/59 (77) 97 04/30/20 00:00 97.7 60 18 122/63 (82) 96 04/30/20 00:00 63 04/29/20 21:00 Nasal Cannula 2.0 Nasal Cannula 2.0 Nasal Cannula 2.0 04/29/20 20:41 98 Nasal Cannula 2.0 28 04/29/20 20:00 65 04/29/20 20:00 98.0 65 18 119/54 (75) 98 04/29/20 16:00 61 04/29/20 16:00 98.4 60 18 136/64 (88) 98 I&O Intake and Output 04/29/20 04/30/20 19:00 07:00 Intake Total 720 ml Balance 720 ml Intake Oral 720 ml Dressing: other Wound: other Cardiovascular: RSR Respiratory: decreased breath sounds Abdomen: soft, non-tender, present bowel sounds Extremities: no cyanosis Laboratory Tests Test 04/29/20 20:51 04/30/20 05:45 04/30/20 06:46 04/30/20 11:58 POC Whole Blood Glucose Pending Pending 133 MG/DL (74-106) H White Blood Count 5.6 K/UL (4.8-10.8) Red Blood Count 2.69 M/UL (4.20-5.40) L Hemoglobin 8.1 G/DL (12.0-16.0) L Hematocrit 24.8 % (37.0-47.0) L Mean Corpuscular Volume 92 FL (80-99) Mean Corpuscular Hemoglobin 30.1 PG (27.0-31.0) Mean Corpuscular Hemoglobin Concent 32.7 G/DL (32.0-36.0) Red Cell Distribution Width 15.2 % (11.6-14.8) H Platelet Count 135 K/UL (150-450) L Mean Platelet Volume 7.6 FL (6.5-10.1) Neutrophils (%) (Auto) 59.3 % (45.0-75.0) Lymphocytes (%) (Auto) 20.1 % (20.0-45.0) Monocytes (%) (Auto) 12.2 % (1.0-10.0) H Eosinophils (%) (Auto) 5.8 % (0.0-3.0) H Basophils (%) (Auto) 2.5 % (0.0-2.0) H Prothrombin Time 11.4 SEC (9.30-11.50) Prothromb Time International Ratio 1.0 (0.9-1.1) Activated Partial Thromboplast Time 30 SEC (23-33) Sodium Level 128 MMOL/L (136-145) L Potassium Level 4.6 MMOL/L (3.5-5.1) Chloride Level 91 MMOL/L (98-107) L Carbon Dioxide Level 29 MMOL/L (21-32) Anion Gap 8 mmol/L (5-15) Blood Urea Nitrogen 49 mg/dL (7-18) H Creatinine 7.7 MG/DL (0.55-1.30) H Estimat Glomerular Filtration Rate 6.3 mL/min (>60) Glucose Level 119 MG/DL (74-106) H Calcium Level 8.6 MG/DL (8.5-10.1) Total Bilirubin 0.4 MG/DL (0.2-1.0) Aspartate Amino Transf (AST/SGOT) 21 U/L (15-37) Alanine Aminotransferase (ALT/SGPT) 18 U/L (12-78) Alkaline Phosphatase 53 U/L (46-116) Total Protein 5.8 G/DL (6.4-8.2) L Albumin 2.6 G/DL (3.4-5.0) L Globulin 3.2 g/dL Albumin/Globulin Ratio 0.8 (1.0-2.7) L Plan Problems: (1) Diabetic nephropathy (2) Cellulitis of left foot Assessment & Plan: Pt presented on admission with Moisture Intertrigo Bilat Breasts and Abdominal folds. Unstageable Pressure Injury Lateral L heel (L) 2.2cm x (W)2.2cm. Base of wound is 80% soft necrosis,10% slough, remaining 10% monique.Epibole approx 50% borders,50% pink. Small amt Brownish exudate. Wound is malodorous. Loose non-viable tissue removed.Base of wound now 90% slough,10% monique. Odor improved post cleansing. Therahoney applied with small 2x2 packing, covered with ABD pad and wrapped with Kerlix until orders for wound care can be clarified with DPM. Both feet are cold to touch and dusky at distal aspect including metatarsals both feet;dorsum L 3rd metatarsal is black. Dry eschar noted to L 1st metatarsal head(L)1.1cm x (W)1.6cm.Pt complained of pain LLE and L foot to slightest touch or movement R heel is boggy and pale. Moisture Intertrigo skin folds both breasts and abdominal folds. Both areas are malodorous. Cleansed with soap and water and gently dried. Phytoplex Antifungal Powder applied to affected areas. R and L groin are moist and erythematous. Moisture Barrier Paste applied. Darker skin tone with two small indurated areas at Sacrococcygeal area noted. Pt complained site tender when minimally palpated. In close proximity above coccyx at cleft is resolving Pressure injury. Earlimart epithelial noted. An area of hyperpigmentation with pink epithelial medially noted to L Ischial tuberosity. Hyperpigmentation noted to R Ischium. Tx.Plan: Wash and dry skin folds both breasts and Abdominal folds. Apply Light Dusting of Antifungal powder Twice Daily. Apply Moisture Barrier Paste to Bilat groin and Buttocks with each Incontinence care. Cover Sacrum with Optifoam drsg. Change every 3 days and prn. Apply Cavilon Skin Barrier to bilateral Heel and Malleoli. Cover with Optifoam drsg. Change every 7 days and prn. Reposition at least every 2hours or as tolerated. Off-load heels with pillow. Flow images demonstrate overall asymmetrically increased flow in the right foot, particularly in the region of the calcaneal tuberosity, midfoot and forefoot. There is equivocally slightly increased flow in the left heel. Blood pool images likewise demonstrate increased activity on the right, involving the midfoot and forefoot. Very subtle slightly increased activity is seen in the region of the left calcaneal tuberosity. On the static images, there is very mildly prominent activity in the left calcaneal tuberosity, but this is actually less striking than on the contralateral side. Ill-defined increased activity is seen in the left midfoot and in the right midfoot and forefoot. There is some increased activity in the region of the right metatarsophalangeal joint which is probably degenerative in nature. Impression: No significant abnormality in the left heel to suggest osteomyelitis of the location of clinically described left heel wound. Mild bilateral abnormal uptake, as detailed above, likely reflecting degenerative changes (3) Pacemaker (4) Anemia in chronic kidney disease (CKD) (5) History of CVA (cerebrovascular accident) (6) History of atrial fibrillation (7) ESRD (end stage renal disease) (8) COPD (chronic obstructive pulmonary disease) (9) Bradycardia (10) Diabetic nephropathy (11) Hypertensive kidney disease (12) Volume overload (13) Heel abrasion (14) Elevated troponin I level (15) Urinary tract infection due to Proteus (16) Dyspnea (17) Symptomatic anemia (18) Acute on chronic renal failure (19) Anemia (20) HTN (hypertension) Luis Alberto Cade Apr 30, 2020 14:10
--- NOTE | 2020-04-30 14:34 | Infectious Diseases Prog Note ---
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 capitis bacteremia, persistent- likely HD line infection in the setting of sepsis -04/23 Bcx 1/ Staph capitis ; 04/25 Bcx 1/4 Staph capitis; 04/27 Bcx NTD x4 ( peripheral, HD line) -2d Echo: no vegetations seen Pulmonary edema vs PNA -04/30 CXR: Mild perihilar interstitial congestion, unchanged from 04/25/2020. -04/25 SARS-COV2 PCR neg -04/25 CXR: Perihilar opacities may represent pulmonary edema versus infectious/inflammatory process. Elevated trop L foot/ankle wound; no grossly infected- no OM on bone scan -04/28 Bone scan: No significant abnormality in the left heel to suggest osteomyelitis of the location of clinically described left heel wound. Mild bilateral abnormal uptake, as detailed above, likely reflecting degenerative changes -xray L foot/ankle: No acute findings in the left foot. 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 s/p PPM asthma ESRD on HD (MWF) Plan: -Continue IV Vancomycin #/ for bacteremia -04/29 SP Cefepime #5 -04/25 SP Ceftriaxone #3 -04/23 SP Cefepime x1 -f/u cx -Monitor CBC/CMP, temperatures -wound care per human development professor -Podiatry, renal, cards, pulm f/u - f/u Bcx x2 (peripheral & HD line); for permacath placement today -COVID19 neg x1 -aspiration precautions Thank you for consulting [facility]. Will continue to follow along . Discussed with RN and Dr Stephenson. Updated daughter via phone (on 04/28) Subjective Allergies: Coded Allergies: PENICILLINS (Verified Allergy, Unknown, 04/23/20) Tolerated Cefepime 04/23/20 afebrile on 2l NC repeat Bcx NTD remains confused for permacath placement today Objective Last 24 Hour Vital Signs Date Time Temp Pulse Resp B/P (MAP) Pulse Ox O2 Delivery O2 Flow Rate FiO2 04/30/20 12:01 97.7 74 18 121/45 (70) 100 04/30/20 12:00 61 04/30/20 09:00 Nasal Cannula 2.0 Nasal Cannula 2.0 Nasal Cannula 2.0 04/30/20 08:00 60 04/30/20 08:00 98.1 50 18 88/31 (50) 98 04/30/20 04:00 63 04/30/20 04:00 96.6 60 18 115/59 (77) 97 04/30/20 00:00 97.7 60 18 122/63 (82) 96 04/30/20 00:00 63 04/29/20 21:00 Nasal Cannula 2.0 Nasal Cannula 2.0 Nasal Cannula 2.0 04/29/20 20:41 98 Nasal Cannula 2.0 28 04/29/20 20:00 65 04/29/20 20:00 98.0 65 18 119/54 (75) 98 04/29/20 16:00 61 04/29/20 16:00 98.4 60 18 136/64 (88) 98 Height (Feet): 5 Height (Inches): 5.00 Weight (Pounds): 260 Cardiovascular: RSR Respiratory: decreased breath sounds Abdomen: soft, non-tender, present bowel sounds Extremities: no cyanosis Microbiology Date/Time Source Procedure Growth Status 04/27/20 18:40 Blood Blood Culture - Preliminary NO GROWTH AFTER 48 HOURS Resulted 04/27/20 18:30 Blood Blood Culture - Preliminary NO GROWTH AFTER 48 HOURS Resulted Laboratory Tests Test 04/29/20 20:51 04/30/20 05:45 04/30/20 06:46 04/30/20 11:58 POC Whole Blood Glucose Pending Pending 133 MG/DL (74-106) H White Blood Count 5.6 K/UL (4.8-10.8) Red Blood Count 2.69 M/UL (4.20-5.40) L Hemoglobin 8.1 G/DL (12.0-16.0) L Hematocrit 24.8 % (37.0-47.0) L Mean Corpuscular Volume 92 FL (80-99) Mean Corpuscular Hemoglobin 30.1 PG (27.0-31.0) Mean Corpuscular Hemoglobin Concent 32.7 G/DL (32.0-36.0) Red Cell Distribution Width 15.2 % (11.6-14.8) H Platelet Count 135 K/UL (150-450) L Mean Platelet Volume 7.6 FL (6.5-10.1) Neutrophils (%) (Auto) 59.3 % (45.0-75.0) Lymphocytes (%) (Auto) 20.1 % (20.0-45.0) Monocytes (%) (Auto) 12.2 % (1.0-10.0) H Eosinophils (%) (Auto) 5.8 % (0.0-3.0) H Basophils (%) (Auto) 2.5 % (0.0-2.0) H Prothrombin Time 11.4 SEC (9.30-11.50) Prothromb Time International Ratio 1.0 (0.9-1.1) Activated Partial Thromboplast Time 30 SEC (23-33) Sodium Level 128 MMOL/L (136-145) L Potassium Level 4.6 MMOL/L (3.5-5.1) Chloride Level 91 MMOL/L (98-107) L Carbon Dioxide Level 29 MMOL/L (21-32) Anion Gap 8 mmol/L (5-15) Blood Urea Nitrogen 49 mg/dL (7-18) H Creatinine 7.7 MG/DL (0.55-1.30) H Estimat Glomerular Filtration Rate 6.3 mL/min (>60) Glucose Level 119 MG/DL (74-106) H Calcium Level 8.6 MG/DL (8.5-10.1) Total Bilirubin 0.4 MG/DL (0.2-1.0) Aspartate Amino Transf (AST/SGOT) 21 U/L (15-37) Alanine Aminotransferase (ALT/SGPT) 18 U/L (12-78) Alkaline Phosphatase 53 U/L (46-116) Total Protein 5.8 G/DL (6.4-8.2) L Albumin 2.6 G/DL (3.4-5.0) L Globulin 3.2 g/dL Albumin/Globulin Ratio 0.8 (1.0-2.7) L Current Medications Medications (Trade) Dose Ordered Sig/Jesus Route PRN Reason Start Time Stop Time Status Last Admin Dose Admin Acetaminophen/ Hydrocodone Bitart ([place] 5/325) 1 tab Q4H PRN ORAL Pain 3-6 04/28/20 19:30 05/04/20 19:29 04/29/20 06:19 Aspirin (ASA) 81 mg DAILY ORAL 04/29/20 09:00 06/08/20 08:59 04/29/20 09:19 Atorvastatin Calcium (Lipitor) 40 mg BEDTIME ORAL 04/28/20 21:00 07/24/20 20:59 04/29/20 20:30 Barium Sulfate (Varibar Honey) 250 ml NOW PRN Radiology Procedure 04/30/20 12:15 05/03/20 12:15 Barium Sulfate (Varibar Trommald) 230 ml NOW PRN Radiology Procedure 04/30/20 12:15 05/03/20 12:15 Barium Sulfate (Varibar Pudding) 230 ml NOW PRN Radiology Procedure 04/30/20 12:15 05/03/20 12:15 Cefepime HCl 1 gm/ Dextrose 55 ml @ 110 mls/hr Q24H IVPB 04/29/20 18:00 05/02/20 17:59 04/29/20 18:39 Chlorhexidine Gluconate (Cira-Hex 2%) 1 applic DAILY@2000 TOPIC 04/28/20 20:00 07/22/20 19:59 04/29/20 20:27 Dextrose 1,000 ml @ 40 mls/hr Q24H IV 04/28/20 19:30 05/28/20 19:29 04/29/20 20:27 Dextrose (Dextrose 50%) 25 ml Q30M PRN IV Hypoglycemia 04/29/20 23:30 07/28/20 23:29 Dextrose (Dextrose 50%) 50 ml Q30M PRN IV Hypoglycemia 04/29/20 23:30 07/28/20 23:29 Docusate Sodium (Colace) 100 mg THREE TIMES A DAY ORAL 04/29/20 13:00 05/29/20 12:59 04/30/20 08:17 Epoetin Jose (Epoetin Jose(ESRD on dialysis)) 4,000 unit SUN-SUN-SUN SUBQ 04/28/20 21:00 07/27/20 20:59 04/28/20 21:32 Folic Acid (Folate) 1 mg DAILY ORAL 04/29/20 09:00 05/26/20 08:59 04/30/20 08:17 Heparin Sodium (Porcine) (Heparin 5000 units/ml) 5,000 units EVERY 12 HOURS SUBQ 04/28/20 21:00 06/12/20 20:59 Heparin Sodium (Porcine) (Heparin Sod 1000 units/ml 10ml) 1,000 unit ONCE PRN INJ radiology procedure 04/30/20 13:45 05/01/20 23:59 Heparin Sodium/ Sodium Chloride (Heparin 1000 units/500ml Premix) 1,000 unit ONCE PRN INJ radiology procedure 04/30/20 13:45 05/01/20 23:59 Hydralazine HCl (Apresoline) 25 mg Q4H PRN ORAL For blood pressure over 160 sy 04/28/20 19:45 07/24/20 19:36 Hydromorphone HCl (Dilaudid) 0.5 mg Q4H PRN SUBQ Pain 04-1604/28/20 19:45 05/04/20 19:44 Insulin Aspart (NovoLOG) BEFORE MEALS AND HS SUBQ 04/30/20 06:30 07/29/20 06:29 Lidocaine/ Epinephrine (Lidocaine 2%/ Epi 20ml) 40 ml ONCE PRN INJ radiology procedure 04/30/20 13:45 05/01/20 23:59 Midodrine (Pro-Amatine) 10 mg THREE TIMES A DAY ORAL 04/29/20 09:00 07/25/20 10:29 04/30/20 08:16 Ondansetron HCl (Zofran) 4 mg Q6H PRN IVP Nausea & Vomiting 04/28/20 19:45 05/25/20 19:37 Pantoprazole (Protonix) 40 mg DAILY IVP 04/30/20 10:00 05/30/20 09:59 Sevelamer Carbonate (Renvela) 800 mg THREE TIMES A DAY ORAL 04/29/20 09:00 07/23/20 08:59 04/30/20 08:17 Vancomycin HCl ([facility] pharmacy to dose) 1 ea DAILY PRN MISC Per rx protocol 04/28/20 19:45 05/28/20 19:44 Kathia Lei M.D. Apr 30, 2020 14:34
--- NOTE | 2020-04-30 14:46 | NUR ---
BEDSIDE SWALLOW EVALUATION BUSINESS STRATEGIST SWALLOW EVALUATION ORDERS RECEIVED FROM DR. KEITA. DYSPHAGIA RISK FACTORS FOR THIS 69 Y.O. FEMALE: ACUTE: ESRD, Diabetic Nephropathy, Cellulitis of Left foot, Anemia in CKD, Hypoxic hyperbaric respiratory failure, Paroxysmal AFIB, Thrombocytopenia, Hypercoagulable DVT, HTN, Gastrointestinal and deep vein thrombosis prophylaxes. H/O: CVA (10 YEARS AGO) with Left Hemiparesis, Asthma, AFIB, DM2, , COPD, Pacemaker, Dementia. PLOF: Patient is confused and obtaining previous diet consistently is difficult, Patient reports no history of swallowing difficulties. During Prior admission at [facility] [place]27/20 to 03/02/20), Patient consumed regular solids with thin liquids cardiac diet. VITALS ON 2L NASAL CANNULA: HR: 77; RR: 18; SP02 100% RELEVANT MEDS: Dilaudid (Pain). Protonix (GERD?). Zofran (Nausea). PER RN: Received orders with Patient on a mechanical soft-chopped with thin liquids texture. RN reports when attempting to feed the Patient yesterday (04/29/20) Patient presenting with overt s/s of aspiration described as coughing. Patient also requires medications to be given crushed. Patient seen at bedside, awake upon BUSINESS STRATEGIST arrival. Patient appears confused and requires prompting to complete simple self-care tasks. Patient refused BUSINESS STRATEGIST to provide Patient with oral care/hygiene. Patient has upper and lower dentures placed. Oral motor ROM and coordination slowed/reduced. Able to manage oral secretion WNL. VSS for duration of the session. INITIAL IMPRESSIONS: Mild Oropharyngeal dysphagia compounded by poor breathing-swallowing coordination and cognitive behavioral deficits (h/o Dementia, CVA w/ residual weakness) exacerbated by reduced and delayed oral motor ROM and strength, oral transit times to BOT appear delayed, mild oral residuals of soft solids remaining in oral cavity, laryngeal elevation present upon palpation appears reduced and delayed. Patient noted with instances of wheezing s/p all PO trials, no significant overt s/s of aspiration. PO TRIALS: -Given Thin Liquids via cup sip and straw: Poor labial seal around the cup, no anterior spillage over lips via straw, adequate labial seal with straw. Patient noted to use sequential sips via straw; Patient states drinking via straw is easier versus cup sip. No s/s of aspiration with thin liquids via straw or cup. Patient noted with instances of wheezing s/p all PO trials. -Puree Solids: Adequate labial seal, A-P transit to BOT appears delayed, Patient required multiple swallows, no significant overt s/s of aspiration, vocal quality remained clear; ongoing wheezing noted. -Given soft solid cracker, Patient with slightly prolonged rotary mastication, Patient noted with mild to mod amt of residuals remaining in oral cavity which Patient cleared with liquid rinse. No significant overt s/s of aspiration; ongoing wheezing noted. Given RN reporting Patient with overt s/s of aspiration with Mechanical soft Chopped, plan to downgrade Patient to mechanical soft ground given no overt s/s of aspiration with solid cracker. Patient continues to be a high risk for aspiration given Patient's poor breathing swallowing coordination and Patient will require 1 to 1 feeding with aspiration precautions implemented. Please also remove dentures at night and clean. PATIENT IS A HIGH RISK FOR ASPIRATION DUE TO POOR BREATHING SWALLOWING COORDINATION (H/O COPD/ASTHMA, NOW ON NC) AND COGNITIVE BEHAVIORAL DEFICITS (H/O DEMENTIA, CONFUSED, TALKING WITH FOOD IN MOUTH) RECOMMENDATIONS: 1. Downgrade texture to Mechanical Soft-Ground Solids with Thin Liquids; Straws ok. 1 to 1 careful hand feeding while implementing posted aspiration precautions. 2. BUSINESS STRATEGIST plans to f/u 4-5x a week for dysphagia therapy and diet tolerance. 3. MBSS while in house to further evaluate swallow physiology. 3. Please provide oral care/hygiene BID. --Remove dentures and clean at night please. BUSINESS STRATEGIST attempted to schedule Patient for MBSS today (04/30/20), spoke with RN and radiologist tech. said ok to place orders for completion. However, unable to be complete due to Patient busy receiving other procedure. BUSINESS STRATEGIST plans to re-attempt Sunday if possible. BUSINESS STRATEGIST made RN aware of results, recommendations, and plan. Will f/u. Thank you for this referral! BUSINESS STRATEGIST [phone]
--- NOTE | 2020-04-30 15:06 | Brief Operative Note ---
Immediate Post Operative Note Operative Note Pre-op Diagnosis: renal failure Procedure: permacath placement R IJV Post-op Diagnosis: same as pre-op Surgeon: Manny Hernandez Anesthesia: local Specimen: none Complications: none Fluids: none Implant(s) used?: No Mello Hernandez MD Apr 30, 2020 15:06
[2020-04-30] MEDS ORDERED: ceFAZolin sod 1 GM in D5W 55 ML IVPB SCH (15:12)
--- NOTE | 2020-04-30 15:35 | Diagnostic Imaging Report ---
Indication: Bilateral lower extremity ulcers and wounds Technique: Grayscale and duplex images of the bilateral lower extremity arteries Comparison: 04/07/2019 Findings: On the right, triphasic or biphasic waveforms with sharp systolic peaks are seen the common femoral artery, femoral artery, popliteal artery, posterior tibial and peroneal arteries. Monophasic waveforms and slight diminished amplitude are seen in the dorsalis pedis artery and anterior tibial artery On the left, biphasic or triphasic waveforms with sharp systolic peaks are seen in the common and superficial femoral arteries, equivocally in the popliteal, posterior tibial, and peroneal arteries. Monophasic slightly dampened waveforms are seen involving the left or sulcus. Is an anterior tibial arteries. No focal flow velocity elevation. No Doppler evidence of focal stenosis. Impression: No definite evidence of significant peripheral vascular insufficiency Monophasic waveforms of the anterior tibial and dorsalis pedis arteries bilaterally. May indicate disease of these vessels
--- NOTE | 2020-04-30 15:37 | Diagnostic Imaging Report ---
Indication: Bilateral leg pain, wounds, ulcers Technique: Grayscale and duplex images of the bilateral lower extremity veins Comparison: Findings: Bilaterally, grayscale and duplex images demonstrate no evidence of intraluminal thrombus. Normal phasic Doppler waveforms, demonstrating normal augmentation response and no evidence of valvular insufficiency. Greater saphenous vein(s) and tibial veins are patent. Normal compressibility. Technologist reports exam was technically surrounding, due to patient body habitus. Impression: Negative for evidence of lower extremity deep venous thrombosis bilaterally
--- NOTE | 2020-04-30 16:01 | Diagnostic Imaging Report ---
Indications: Needs long-term dialysis access Technique: Patient given IV Ancef. Total sterile technique, including sterile probe cover and sterile gel, sterile gloves, hand hygiene, hat, mask,, sterile gown, large sterile drape, and preparation with 2% chlorhexidine utilized. Local anesthesia with 1% lidocaine. Under real-time ultrasound guidance, puncture right internal jugular vein using 21-gauge micropuncture needle, passage 0.018 guidewire, exchange for 4 [place] micropuncture introducer. The guidewire was used to measure the appropriate catheter length, and was removed. The sheath was left in place. The subcutaneous tract was then anesthetized with 1% lidocaine. A chest dermatotomy was made . The tunneling device was used to pull a 14.5 [place] 23 cm Palindrome catheter through the subcutaneous tunnel to the neck dermatotomy. A guidewire was passed through the neck introducer into the inferior vena cava, and serial dilators were passed over it, followed by the introduction of a 14.5 [place] AirGuard peel-away sheath. The catheter was then introduced into the sheath, the peel-away sheath was removed. Digital radiograph documents satisfactory catheter tip position in the high right atrium, no kinking at the insertion site. Both catheter ports aspirated and flushed. Catheter was fixed to the skin. Patient tolerated procedure well without immediate complication. Total fluoroscopy time 172 seconds. Total dose area product [id number] [id number] Total number of images-one Comparison: None. Findings: Completion radiograph documents satisfactory position and course of the catheter, catheter tip at the high right atrium. Impression: Successful placement of right transjugular tunneled dialysis catheter, as described above
--- NOTE | 2020-04-30 16:13 | NUR ---
RADIOLOGY NOTE: TUNNELED DIALYSIS CATHETER PLACED BY DR. MERARI HANKINS AT 144 HRS. FA
--- NOTE | 2020-04-30 19:32 | NUR ---
HAND-OFF: Report given to Dale BEAN. Patient stable though patient stating she isn't feelign good. Patient post tunneled dialysis catheter. Vitals signs taken and 128/52 HR 60 RR 18 SpO2 99 Temp 98.1. Plan of care endorsed.
--- NOTE | 2020-04-30 19:33 | NUR ---
NURSE NOTES: Received hand-off report from Kaya Manley. Patient in stable condition, respirations 16, unlabored and even, spo2: 99%, clerk guide in place, no acute distress noted, tolerated 300mL thickened liquids, alert and oriented x2, no changes in LOC noted. Resting in bed semi-patel's position, heels floated, no complaints of s/s pain noted. rehabilitation case coordinator in place, bed in lowest and locked position, bed alarm on, call light within reach.
[2020-04-30] MEDS: Atorvastatin 20mg tab ORAL SCH (20:59)
[2020-04-30] MEDS: Dyna-Hex 2% Top Sol 2oz TOPIC SCH (20:59)
[2020-04-30] MEDS: Epoetin Alfa-EPBX(ESRD on dialysis)10,000 unit/ml vial SUBQ SCH (21:00)
--- NOTE | 2020-04-30 23:16 | General Progress Note ---
Assessment/Plan Status: stable, unchanged Assessment/Plan: S: appears comfortable. O: controlled pain . seen and examined in Tele units. talks and communicate PHYSICAL EXAMINATION: HEAD AND NECK: Atraumatic and normocephalic. CHEST: Right IJ permcath in place, Clear to auscultation. HEART: S1, S2. Regular rate and rhythm. Bradycardic. MUSCULOSKELETAL: paraparesis. stage 3 decubitus wound in calcaneal region. NEUROLOGIC: The patient is awake and alert x 2. LABORATORY AND DIAGNOSTIC DATA: Labs dated 04/30/20 reviewed Imaging: bone scan dated April 28 reviewed ASSESSMENT: 1. Sepsis secondary to Gram positive coccidiema , likely line infection 2. Acute Hypoxemic respiratory failure, s/p rapid response assessment 2. Hypotension : ddx; adrenal insufficiency 3. HyperKalemia 2. Decubitus wound, enlarging and infected. 3. End-stage renal disease, on temporary PermCath hemodialysis access. 2. Paroxysmal atrial fibrillation, rate is stable. 3. Diabetes type 2. 4. Hypertension. 5. Hyperlipidemia. 6. CVA-history. 7. CHF-Diastolic type 8. Dementia. 8. Gastrointestinal and deep vein thrombosis prophylaxes. 9. Pain management 10. iron deficiency anemia Plan: Seen in ICU Empirical abx initiated Notes from [facility] care reviewed Notified Dr Fam and D/w Dr Saavedra c/w Batsheva PRN breakthrough Consulte Hem onch Post Calcium/Novolog/D50 treatment with favorable response HD per nephrology will remove HD access post HD D/w Nephrology, ID and Vascular surgeon DC the eliquis in anticipation of Vascular procedures post reinsertion of PermCath Subjective Allergies: Coded Allergies: PENICILLINS (Verified Allergy, Unknown, 04/23/20) Tolerated Cefepime 04/23/20 Objective Last 24 Hour Vital Signs Date Time Temp Pulse Resp B/P (MAP) Pulse Ox O2 Delivery O2 Flow Rate FiO2 04/30/20 20:00 60 04/30/20 20:00 97.9 60 18 132/55 (80) 100 04/30/20 16:00 97.5 66 18 109/39 (62) 98 04/30/20 16:00 61 04/30/20 14:50 60 20 146/38 (74) 100 7/24/20 14:45 60 20 160/42 (81) 100 04/30/20 14:40 60 16 136/49 (78) 100 04/30/20 14:28 60 16 3.0 04/30/20 12:01 97.7 74 18 121/45 (70) 100 04/30/20 12:00 61 04/30/20 09:00 Nasal Cannula 2.0 Nasal Cannula 2.0 Nasal Cannula 2.0 04/30/20 08:00 60 04/30/20 08:00 98.1 50 18 88/31 (50) 98 04/30/20 04:00 63 04/30/20 04:00 96.6 60 18 115/59 (77) 97 04/30/20 00:00 97.7 60 18 122/63 (82) 96 04/30/20 00:00 63 Intake and Output 04/29/20 04/30/20 19:00 07:00 Intake Total 720 ml Balance 720 ml Intake Oral 720 ml Laboratory Tests 04/30/20 05:45: White Blood Count 5.6, Red Blood Count 2.69L, Hemoglobin 8.1L, Hematocrit 24.8L , Mean Corpuscular Volume 92, Mean Corpuscular Hemoglobin 30.1, Mean Corpuscular Hemoglobin Concent 32.7, Red Cell Distribution Width 15.2H, Platelet Count 135L, Mean Platelet Volume 7.6, Neutrophils (%) (Auto) 59.3, Lymphocytes (%) (Auto) 20.1, Monocytes (%) (Auto) 12.2H, Eosinophils (%) (Auto) 5.8H, Basophils (%) (Auto) 2.5H, Prothrombin Time 11.4, Prothromb Time International Ratio 1.0, Activated Partial Thromboplast Time 30, Sodium Level 128L, Potassium Level 4.6, Chloride Level 91L, Carbon Dioxide Level 29, Anion Gap 8, Blood Urea Nitrogen 49H, Creatinine 7.7H, Estimat Glomerular Filtration Rate 6.3, Glucose Level 119H, Calcium Level 8.6, Total Bilirubin 0.4, Aspartate Amino Transf (AST/SGOT) 21, Alanine Aminotransferase (ALT/SGPT) 18, Alkaline Phosphatase 53, Total Protein 5.8L, Albumin 2.6L, Globulin 3.2, Albumin/ Globulin Ratio 0.8L 04/30/20 06:46: POC Whole Blood Glucose [Pending] 04/30/20 11:58: POC Whole Blood Glucose 133H Height (Feet): 5 Height (Inches): 5.00 Weight (Pounds): 260 Danie Banegas MD Apr 30, 2020 23:16
[2020-05-01] VITALS (12 sets, daily range): BP systolic 77–129; BP diastolic 32–58
[2020-05-01] MEDS: NovoLOG Insulin Flexpen SUBQ SCH ×4 (06:30→20:23)
--- NOTE | 2020-05-01 07:15 | NUR ---
HAND-OFF: Report given to VIKAS Booker. Patient alert and oriented x2, stable condition, breathing is unlabored and even. Plan of care endorsed.
--- NOTE | 2020-05-01 08:25 | General Progress Note ---
Assessment/Plan Status: stable, unchanged Assessment/Plan: S: appears comfortable. O: controlled pain . seen and examined in Tele units. talks and communicate PHYSICAL EXAMINATION: HEAD AND NECK: Atraumatic and normocephalic. CHEST: Right IJ permcath in place, Clear to auscultation. HEART: S1, S2. Regular rate and rhythm. Bradycardic. MUSCULOSKELETAL: paraparesis. stage 3 decubitus wound in calcaneal region. NEUROLOGIC: The patient is awake and alert x 2. LABORATORY AND DIAGNOSTIC DATA: Labs dated 05/01/20 reviewed Imaging: bone scan dated April 28 reviewed ASSESSMENT: 1. Sepsis secondary to Gram positive coccidiema , likely line infection 2. Acute Hypoxemic respiratory failure, s/p rapid response assessment 2. Hypotension : ddx; adrenal insufficiency 3. HyperKalemia 2. Decubitus wound, enlarging and infected. 3. End-stage renal disease, on temporary PermCath hemodialysis access. 2. Paroxysmal atrial fibrillation, rate is stable. 3. Diabetes type 2. 4. Hypertension. 5. Hyperlipidemia. 6. CVA-history. 7. CHF-Diastolic type 8. Dementia. 8. Gastrointestinal and deep vein thrombosis prophylaxes. 9. Pain management 10. iron deficiency anemia Plan: Seen in ICU Empirical abx initiated Notes from [facility] care reviewed Notified Dr Fam and D/w Dr Saavedra c/w Batsheva PRN breakthrough Consulte Hem onch Post Calcium/Novolog/D50 treatment with favorable response HD per nephrology will remove HD access post HD D/w Nephrology, ID and Vascular surgeon DC the eliquis in anticipation of Vascular procedures post reinsertion of PermCath D/W Dr Fam for revision of AV G-F Subjective Allergies: Coded Allergies: PENICILLINS (Verified Allergy, Unknown, 04/23/20) Tolerated Cefepime 04/23/20 Objective Last 24 Hour Vital Signs Date Time Temp Pulse Resp B/P (MAP) Pulse Ox O2 Delivery O2 Flow Rate FiO2 05/01/20 04:00 60 05/01/20 04:00 98.2 60 16 109/49 (69) 100 05/01/20 00:00 60 05/01/20 00:00 98.9 60 16 128/56 (80) 100 04/30/20 21:00 Nasal Cannula 2.0 Nasal Cannula 2.0 Nasal Cannula 2.0 04/30/20 20:00 60 04/30/20 20:00 97.9 60 18 132/55 (80) 100 04/30/20 16:00 97.5 66 18 109/39 (62) 98 04/30/20 16:00 61 04/30/20 14:50 60 20 146/38 (74) 100 04/30/20 14:45 60 20 160/42 (81) 100 04/30/20 14:40 60 16 136/49 (78) 100 04/30/20 14:28 60 16 3.0 04/30/20 12:01 97.7 74 18 121/45 (70) 100 04/30/20 12:00 61 04/30/20 09:00 Nasal Cannula 2.0 Nasal Cannula 2.0 Nasal Cannula 2.0 Intake and Output 04/30/20 05/01/20 19:00 07:00 Intake Total 300 ml Balance 300 ml Intake Oral 300 ml Laboratory Tests 04/30/20 11:58: POC Whole Blood Glucose 133H Height (Feet): 5 Height (Inches): 5.00 Weight (Pounds): 260 Danie Banegas MD May 01, 2020 08:25
[2020-05-01] MEDS: Heparin 5000 units/ml inj SUBQ SCH ×2 (09:00→20:22)
--- NOTE | 2020-05-01 09:06 | CDS Physician Query ---
Clarification is required for compliance, coding accuracy, and to reflect severity of illness for this patient. Dear Dr. Elmer Banegas Date: 05/01/2020 CDS name: Katie Edwards Clinical Documentation states: HNP: 69-year-old female with a history of end- stage renal disease, on hemodialysis...1. SIRS 2. Decubitus wound, enlarging and infected. 3. End-stage renal disease, on temporary PermCath hemodialysis access. ID note 04/29: SEvere sepsis...S. capitis bacteremia, persistent- likely HD line infection in the setting of sepsis A diagnosis of suspected catheter infection was made in the medical record on on the operative note. Upon review, it is difficult to determine whether this diagnosis has been ruled in, ruled out,or is still being worked up. Please indicate below the status of the aforementioned diagnosis. [] Treated and resolve [] Presumed and treated [x] Currently under treatment [] Still being worked-up [] Ruled out Present on Admission: [x] Yes [] No [] Clinically Undetermined Danie Banegas 05/02/20_ Physician signature Date Please also document in your Progress Notes and/or Discharge Summary and indicate if the condition was present on admission. HALLIED
--- NOTE | 2020-05-01 09:39 | Nephrology Progress Note ---
Assessment/Plan Problem List: (1) ESRD (end stage renal disease) (2) Pacemaker (3) Diabetic nephropathy (4) Cellulitis of left foot (5) Anemia in chronic kidney disease (CKD) (6) History of CVA (cerebrovascular accident) (7) History of atrial fibrillation Plan May 01: Patient due for dialysis today. Continue to monitor renal parameters and dialyze as needed. Continue per ID. Will check lab tomorrow. April 30: Patient due for insertion of a permacath today. Will arrange for dialysis tomorrow. Blood cultures remain negative. COVID-19 test negative. Discussed with RN. April 29: Permacath was taken out yesterday. Will place the catheter tomorrow. Blood cultures negative so far. Continue per consultants. April 28: Dialyzed yesterday. Will remove permacath today. Will do surveillance blood culture. Will aim to put catheter back in 48 hours. April 27: Due for dialysis today. Potassium 5.6. Will give Kayexalate. Blood pressure better under control. Continue per consultants. Also as per ID recommendation based on the blood culture results will remove the permacath tomorrow and will send the tip for culture. Will aim to have another catheter in 48 hours later. In the interim we will do surveillance blood culture. Patient received dialysis last evening for hyperkalemia. Patient had to be transferred to ICU for low blood pressure despite of multiple fluid challenges. Currently in ICU blood pressure 85-90 systolic. Patient on no blood pressure medication. Troponin I slightly elevated. 2D echocardiogram pending. Will start midodrine. Will aim to dialyze tomorrow. Monitor H&H and renal parameters and electrolytes Antibiotic per ID Pain medication adjusted Continue per consultants Subjective ROS Limited/Unobtainable: No Constitutional: Reports: malaise, weakness Objective Objective Last 24 Hour Vital Signs Date Time Temp Pulse Resp B/P (MAP) Pulse Ox O2 Delivery O2 Flow Rate FiO2 05/01/20 08:00 97.7 60 18 123/48 (73) 99 05/01/20 04:00 60 05/01/20 04:00 98.2 60 16 109/49 (69) 100 05/01/20 00:00 60 05/01/20 00:00 98.9 60 16 128/56 (80) 100 04/30/20 21:00 Nasal Cannula 2.0 Nasal Cannula 2.0 Nasal Cannula 2.0 04/30/20 20:00 60 04/30/20 20:00 97.9 60 18 132/55 (80) 100 04/30/20 16:00 97.5 66 18 109/39 (62) 98 04/30/20 16:00 61 04/30/20 14:50 60 20 146/38 (74) 100 04/30/20 14:45 60 20 160/42 (81) 100 04/30/20 14:40 60 16 136/49 (78) 100 04/30/20 14:28 60 16 3.0 04/30/20 12:01 97.7 74 18 121/45 (70) 100 04/30/20 12:00 61 Intake and Output 04/30/20 05/01/20 19:00 07:00 Intake Total 300 ml Balance 300 ml Intake Oral 300 ml Current Medications Medications (Trade) Dose Ordered Sig/Jesus Route PRN Reason Start Time Stop Time Status Last Admin Dose Admin Acetaminophen/ Hydrocodone Bitart ([place] 5/325) 1 tab Q4H PRN ORAL Pain 3-6 04/28/20 19:30 05/04/20 19:29 04/29/20 06:19 Aspirin (ASA) 81 mg DAILY ORAL 04/29/20 09:00 06/08/20 08:59 05/01/20 09:41 Atorvastatin Calcium (Lipitor) 40 mg BEDTIME ORAL 04/28/20 21:00 07/24/20 20:59 04/30/20 20:59 Barium Sulfate (Varibar Honey) 250 ml NOW PRN Radiology Procedure 04/30/20 12:15 05/03/20 12:15 Barium Sulfate (Varibar [place]) 230 ml NOW PRN Radiology Procedure 04/30/20 12:15 05/03/20 12:15 Barium Sulfate (Varibar Pud[place]) 230 ml NOW PRN Radiology Procedure 04/30/20 12:15 05/03/20 12:15 Chlorhexidine Gluconate (Cira-Hex 2%) 1 applic DAILY@1999 TOPIC 04/28/20 20:00 07/22/20 19:59 04/30/20 20:59 Dextrose (Dextrose 50%) 25 ml Q30M PRN IV Hypoglycemia 04/29/20 23:30 07/28/20 23:29 Dextrose (Dextrose 50%) 50 ml Q30M PRN IV Hypoglycemia 04/29/20 23:30 07/28/20 23:29 Docusate Sodium (Colace) 100 mg THREE TIMES A DAY ORAL 04/29/20 13:00 05/29/20 12:59 05/01/20 09:48 Epoetin Jose (Epoetin Jose(ESRD on dialysis)) 10,000 unit SUN-SUN-SUN SUBQ 04/30/20 21:00 07/27/20 20:59 04/30/20 21:00 Folic Acid (Folate) 1 mg DAILY ORAL 04/29/20 09:00 05/26/20 08:59 05/01/20 09:41 Heparin Sodium (Porcine) (Heparin 5000 units/ml) 5,000 units EVERY 12 HOURS SUBQ 04/28/20 21:00 06/12/20 20:59 Heparin Sodium (Porcine) (Heparin Sod 1000 units/ml 10ml) 1,000 unit ONCE PRN INJ radiology procedure 04/30/20 13:45 05/01/20 23:59 Heparin Sodium/ Sodium Chloride (Heparin 1000 units/500ml Premix) 1,000 unit ONCE PRN INJ radiology procedure 04/30/20 13:45 05/01/20 23:59 Hydralazine HCl (Apresoline) 25 mg Q4H PRN ORAL For blood pressure over 160 sy 04/28/20 19:45 07/24/20 19:36 Hydromorphone HCl (Dilaudid) 0.5 mg Q4H PRN SUBQ Pain 7-10 04/28/20 19:45 05/04/20 19:44 Insulin Aspart (NovoLOG) BEFORE MEALS AND HS SUBQ 04/30/20 06:30 07/29/20 06:29 Lidocaine/ Epinephrine (Lidocaine 2%/ Epi 20ml) 40 ml ONCE PRN INJ radiology procedure 04/30/20 13:45 05/01/20 23:59 Midodrine (Pro-Amatine) 10 mg THREE TIMES A DAY ORAL 04/29/20 09:00 07/25/20 10:29 05/01/20 09:41 Ondansetron HCl (Zofran) 4 mg Q6H PRN IVP Nausea & Vomiting 04/28/20 19:45 05/25/20 19:37 Pantoprazole (Protonix) 40 mg EVERY 12 HOURS ORAL 04/30/20 21:00 05/30/20 20:59 05/01/20 09:41 Sevelamer Carbonate (Renvela) 800 mg THREE TIMES A DAY ORAL 04/29/20 09:00 07/23/20 08:59 05/01/20 09:42 [facility] 1 ea DAILY PRN MISC Per rx protocol 04/28/20 19:45 05/28/20 19:44 Laboratory Tests 04/30/20 11:58: POC Whole Blood Glucose 133H Height (Feet): 5 Height (Inches): 5.00 Weight (Pounds): 260 General Appearance: no apparent distress, lethargic Cardiovascular: normal rate Respiratory/Chest: decreased breath sounds Abdomen: soft Manas Stephenson MD May 01, 2020 09:39
[2020-05-01] MEDS: Midodrine 10mg tab ORAL SCH ×3 (09:41→18:00)
[2020-05-01] MEDS: Aspirin Baby 81mg ORAL SCH (09:41)
[2020-05-01] MEDS: Renvela 800mg Pkt ORAL SCH ×3 (09:42→16:14)
[2020-05-01] MEDS: Docusate 100mg/10ml Liq ORAL SCH ×3 (09:48→16:13)
--- NOTE | 2020-05-01 12:01 | Hematology/Onc Progress Note ---
Assessment/Plan Assessment/Plan Assessment and Recs # Thombocytopenia is likely 2/2 Cellulitis of left foot --> as per id --> abx started vanc --> plt trend 150-->102-->92-->103-->133-->148->135 --> hold anticoag if plt <50 --> abx vanc/cefepime # Anemia is likely due to esrd, has been under care of Dr. Stephenson --> continue hd as needed --> with permacath in place on chest, no infection --> EPOGEN 4k dose 3 times a week started --> hgb trend 12-->9->8.1 --> as per renal # Hypercoagulable disorder with afib hx --> on eliquis which has been started --> no bleeding noted # ESRD (end stage renal disease) --> per renal care # Diabetic nephropathy --> wound care and endo recs --> a1c goal <8 # Dvt ppx heparin sq DW Rn and appreciate consultation Subjective HEENT: Denies: no symptoms, eye pain, blurred vision, tearing, double vision, ear pain, ear discharge, nose pain, nose congestion, throat pain, throat swelling, mouth pain, mouth swelling, other Cardiovascular: Denies: no symptoms, chest pain, edema, irregular heart rate, lightheadedness, palpitations, syncope, other Respiratory: Denies: no symptoms, cough, shortness of breath, SOB with excertion, SOB at rest, sputum, wheezing, other Gastrointestinal/Abdominal: Denies: no symptoms, abdomen distended, abdominal pain, black stools, tarry stools, blood in stool, constipated, diarrhea, difficulty swallowing, nausea, poor appetite, poor fluid intake, rectal bleeding , vomiting, other Genitourinary: Denies: no symptoms, burning, discharge, frequency, flank pain, hematuria, incontinence, pain, urgency, other Neurologic/Psychiatric: Denies: no symptoms, anxiety, depressed, emotional problems, headache, numbness, paresthesia, pre-existing deficit, seizure, tingling, tremors, weakness, other Endocrine: Denies: no symptoms, excessive sweating, flushing, intolerance to cold, intolerance to heat, increased hunger, increased thirst, increased urine, unexplained weight gain, unexplained weight loss, other Allergies: Coded Allergies: PENICILLINS (Verified Allergy, Unknown, 04/23/20) Tolerated Cefepime 04/23/20 Subjective 04/26 seen by renal, is for hd tomorrow, labs noted, plts are lower 04/27 labs noted, no bleeding, for hd, hgb currently lower at 9 04/28 meds noted, no bleeding, carlo rn, permcath to dc 04/29 labs still pending, no bleeding, remains forgetful, no bleeding 04/30 no major changes, no bleeding, cbc is noted 05/01 meds reviewed, no bleeding, labs noted, no night sweats Objective Objective Current Medications Medications (Trade) Dose Ordered Sig/Jesus Route PRN Reason Start Time Stop Time Status Last Admin Dose Admin Acetaminophen/ Hydrocodone Bitart ([place] 5/325) 1 tab Q4H PRN ORAL Pain 3-6 04/28/20 19:30 05/04/20 19:29 04/29/20 06:19 Aspirin (ASA) 81 mg DAILY ORAL 04/29/20 09:00 06/08/20 08:59 05/01/20 09:41 Atorvastatin Calcium (Lipitor) 40 mg BEDTIME ORAL 04/28/20 21:00 07/24/20 20:59 04/30/20 20:59 Barium Sulfate (Varibar Honey) 250 ml NOW PRN Radiology Procedure 04/30/20 12:15 05/03/20 12:15 Barium Sulfate (Varibar [place]) 230 ml NOW PRN Radiology Procedure 04/30/20 12:15 05/03/20 12:15 Barium Sulfate (Varibar Pudding) 230 ml NOW PRN Radiology Procedure 04/30/20 12:15 05/03/20 12:15 Chlorhexidine Gluconate (Cira-Hex 2%) 1 applic DAILY@1999 TOPIC 04/28/20 20:00 07/22/20 19:59 04/30/20 20:59 Dextrose (Dextrose 50%) 25 ml Q30M PRN IV Hypoglycemia 04/29/20 23:30 07/28/20 23:29 Dextrose (Dextrose 50%) 50 ml Q30M PRN IV Hypoglycemia 04/29/20 23:30 07/28/20 23:29 Docusate Sodium (Colace) 100 mg THREE TIMES A DAY ORAL 04/29/20 13:00 05/29/20 12:59 05/01/20 09:48 Epoetin Jose (Epoetin Jose(ESRD on dialysis)) 10,000 unit SUN-SUN-SUN SUBQ 04/30/20 21:00 07/27/20 20:59 04/30/20 21:00 Folic Acid (Folate) 1 mg DAILY ORAL 04/29/20 09:00 05/26/20 08:59 05/01/20 09:41 Heparin Sodium (Porcine) (Heparin 5000 units/ml) 5,000 units EVERY 12 HOURS SUBQ 04/28/20 21:00 06/12/20 20:59 Heparin Sodium (Porcine) (Heparin Sod 1000 units/ml 10ml) 1,000 unit ONCE PRN INJ radiology procedure 04/30/20 13:45 05/01/20 23:59 Heparin Sodium/ Sodium Chloride (Heparin 1000 units/500ml Premix) 1,000 unit ONCE PRN INJ radiology procedure 04/30/20 13:45 05/01/20 23:59 Hydralazine HCl (Apresoline) 25 mg Q4H PRN ORAL For blood pressure over 160 sy 04/28/20 19:45 07/24/20 19:36 Hydromorphone HCl (Dilaudid) 0.5 mg Q4H PRN SUBQ Pain 7-04/28/20 19:45 05/04/20 19:44 Insulin Aspart (NovoLOG) BEFORE MEALS AND HS SUBQ 04/30/20 06:30 07/29/20 06:29 Lidocaine/ Epinephrine (Lidocaine 2%/ Epi 20ml) 40 ml ONCE PRN INJ radiology procedure 04/30/20 13:45 05/01/20 23:59 Midodrine (Pro-Amatine) 10 mg THREE TIMES A DAY ORAL 04/29/20 09:00 07/25/20 10:29 05/01/20 09:41 Ondansetron HCl (Zofran) 4 mg Q6H PRN IVP Nausea & Vomiting 04/28/20 19:45 05/25/20 19:37 Pantoprazole (Protonix) 40 mg EVERY 12 HOURS ORAL 04/30/20 21:00 05/30/20 20:59 05/01/20 09:41 Sevelamer Carbonate (Renvela) 800 mg THREE TIMES A DAY ORAL 04/29/20 09:00 07/23/20 08:59 05/01/20 09:42 Vancomycin HCl (Vanco pharmacy to dose) 1 ea DAILY PRN MISC Per rx protocol 04/28/20 19:45 05/28/20 19:44 Last 24 Hour Vital Signs Date Time Temp Pulse Resp B/P (MAP) Pulse Ox O2 Delivery O2 Flow Rate FiO2 05/01/20 09:00 Nasal Cannula 2.0 Nasal Cannula 2.0 Nasal Cannula 2.0 05/01/20 08:00 97.7 60 18 123/48 (73) 99 05/01/20 08:00 60 05/01/20 04:00 60 05/01/20 04:00 98.2 60 16 109/49 (69) 100 05/01/20 00:00 60 05/01/20 00:00 98.9 60 16 128/56 (80) 100 04/30/20 21:00 Nasal Cannula 2.0 Nasal Cannula 2.0 Nasal Cannula 2.0 04/30/20 20:00 60 04/30/20 20:00 97.9 60 18 132/55 (80) 100 04/30/20 16:00 97.5 66 18 109/39 (62) 98 04/30/20 16:00 61 04/30/20 14:50 60 20 146/38 (74) 100 04/30/20 14:45 60 20 160/42 (81) 100 04/30/20 14:40 60 16 136/49 (78) 100 04/30/20 14:28 60 16 3.0 04/30/20 12:01 97.7 74 18 121/45 (70) 100 04/30/20 12:00 61 04/30/20 09:00 Nasal Cannula 2.0 Nasal Cannula 2.0 Nasal Cannula 2.0 04/30/20 08:00 60 04/30/20 08:00 98.1 50 18 88/31 (50) 98 04/30/20 04:00 63 04/30/20 04:00 96.6 60 18 115/59 (77) 97 04/30/20 00:00 97.7 60 18 122/63 (82) 96 04/30/20 00:00 63 04/29/20 21:00 Nasal Cannula 2.0 Nasal Cannula 2.0 Nasal Cannula 2.0 04/29/20 20:41 98 Nasal Cannula 2.0 28 04/29/20 20:00 65 04/29/20 20:00 98.0 65 18 119/54 (75) 98 04/29/20 16:00 61 04/29/20 16:00 98.4 60 18 136/64 (88) 98 04/29/20 12:00 98.1 59 18 148/55 (86) 97 04/29/20 12:00 60 Intake and Output 04/30/20 05/01/20 19:00 07:00 Intake Total 300 ml Balance 300 ml Intake Oral 300 ml Labs Test 04/29/20 06:35 04/29/20 20:51 04/30/20 05:45 04/30/20 06:46 White Blood Count 6.5 K/UL (4.8-10.8) 5.6 K/UL (4.8-10.8) Red Blood Count 3.22 M/UL (4.20-5.40) 2.69 M/UL (4.20-5.40) Hemoglobin 9.5 G/DL (12.0-16.0) 8.1 G/DL (12.0-16.0) Hematocrit 29.6 % (37.0-47.0) 24.8 % (37.0-47.0) Mean Corpuscular Volume 92 FL (80-99) 92 FL (80-99) Mean Corpuscular Hemoglobin 29.6 PG (27.0-31.0) 30.1 PG (27.0-31.0) Mean Corpuscular Hemoglobin Concent 32.1 G/DL (32.0-36.0) 32.7 G/DL (32.0-36.0) Red Cell Distribution Width 15.0 % (11.6-14.8) 15.2 % (11.6-14.8) Platelet Count 148 K/UL (150-450) 135 K/UL (150-450) Mean Platelet Volume 7.9 FL (6.5-10.1) 7.6 FL (6.5-10.1) Neutrophils (%) (Auto) 61.4 % (45.0-75.0) 59.3 % (45.0-75.0) Lymphocytes (%) (Auto) 18.0 % (20.0-45.0) 20.1 % (20.0-45.0) Monocytes (%) (Auto) 11.6 % (1.0-10.0) 12.2 % (1.0-10.0) Eosinophils (%) (Auto) 6.8 % (0.0-3.0) 5.8 % (0.0-3.0) Basophils (%) (Auto) 2.1 % (0.0-2.0) 2.5 % (0.0-2.0) Sodium Level 130 MMOL/L (136-145) 128 MMOL/L (136-145) Potassium Level 4.7 MMOL/L (3.5-5.1) 4.6 MMOL/L (3.5-5.1) Chloride Level 92 MMOL/L (98-107) 91 MMOL/L (98-107) Carbon Dioxide Level 27 MMOL/L (21-32) 29 MMOL/L (21-32) Anion Gap 11 mmol/L (5-15) 8 mmol/L (5-15) Blood Urea Nitrogen 42 mg/dL (7-18) 49 mg/dL (7-18) Creatinine 6.8 MG/DL (0.55-1.30) 7.7 MG/DL (0.55-1.30) Estimat Glomerular Filtration Rate 7.3 mL/min (>60) 6.3 mL/min (>60) Glucose Level 126 MG/DL (74-106) 119 MG/DL (74-106) Calcium Level 9.0 MG/DL (8.5-10.1) 8.6 MG/DL (8.5-10.1) Phosphorus Level 4.8 MG/DL (2.5-4.9) Total Bilirubin 0.6 MG/DL (0.2-1.0) 0.4 MG/DL (0.2-1.0) Aspartate Amino Transf (AST/SGOT) 27 U/L (15-37) 21 U/L (15-37) Alanine Aminotransferase (ALT/SGPT) 25 U/L (12-78) 18 U/L (12-78) Alkaline Phosphatase 57 U/L (46-116) 53 U/L (46-116) Total Protein 6.6 G/DL (6.4-8.2) 5.8 G/DL (6.4-8.2) Albumin 2.9 G/DL (3.4-5.0) 2.6 G/DL (3.4-5.0) Globulin 3.7 g/dL 3.2 g/dL Albumin/Globulin Ratio 0.8 (1.0-2.7) 0.8 (1.0-2.7) Prothrombin Time 11.4 SEC (9.30-11.50) Prothromb Time International Ratio 1.0 (0.9-1.1) Activated Partial Thromboplast Time 30 SEC (23-33) Test 04/30/20 11:58 04/30/20 21:17 05/01/20 06:57 05/01/20 11:18 POC Whole Blood Glucose 133 MG/DL (74-106) 93 MG/DL (74-106) Height (Feet): 5 Height (Inches): 5.00 Weight (Pounds): 260 Objective Physical Exam Vitals: reviewed Gen: no apparent distress, alert, non-toxic, obese, Chronically Ill HEENT: hearing grossly normal, normal voice Neck: full range of motion Resp: chest non-tender, lungs clear, normal breath sounds, no respiratory distress, permacath left side Cardiovascular: regular rate, rhythm, no edema, other - slow cap refill time of lower extremities bilaterally GI: normal bowel sounds, non tender, soft Msk: normal range of motion, non-tender, other - PT. wheel chair bound Neuro: alert, oriented x3, responsive, speech normal, sensory deficit Psychiatric: judgement/insight normal Skin: Decubitus/Ulcer - 2cm in diameter with a deeper necrotic 0.6cm center. erythema- pressure sore on tailbone. no skin break down Husam Byers MD May 01, 2020 12:01
--- NOTE | 2020-05-01 12:02 | Surgery Progress Note ---
Surgery Progress Note Subjective Symptoms: tolerating diet Additional Comments No acute events. Comfortable. Labs noted. Duplex reviewed. Objective Last 24 Hour Vital Signs Date Time Temp Pulse Resp B/P (MAP) Pulse Ox O2 Delivery O2 Flow Rate FiO2 05/01/20 09:00 Nasal Cannula 2.0 Nasal Cannula 2.0 Nasal Cannula 2.0 05/01/20 08:00 97.7 60 18 123/48 (73) 99 05/01/20 08:00 60 05/01/20 04:00 60 05/01/20 04:00 98.2 60 16 109/49 (69) 100 05/01/20 00:00 60 05/01/20 00:00 98.9 60 16 128/56 (80) 100 04/30/20 21:00 Nasal Cannula 2.0 Nasal Cannula 2.0 Nasal Cannula 2.0 04/30/20 20:00 60 04/30/20 20:00 97.9 60 18 132/55 (80) 100 04/30/20 16:00 97.5 66 18 109/39 (62) 98 04/30/20 16:00 61 04/30/20 14:50 60 20 146/38 (74) 100 04/30/20 14:45 60 20 160/42 (81) 100 04/30/20 14:40 60 16 136/49 (78) 100 04/30/20 14:28 60 16 3.0 I&O Intake and Output 04/30/20 05/01/20 19:00 07:00 Intake Total 300 ml Balance 300 ml Intake Oral 300 ml Dressing: dry Wound: clean Cardiovascular: RSR Respiratory: clear Abdomen: soft, non-tender Extremities: edema, no tenderness, no cyanosis, pulses, other Laboratory Tests Test 04/30/20 21:17 05/01/20 06:57 05/01/20 11:18 POC Whole Blood Glucose Pending 93 MG/DL (74-106) Pending Plan Problems: (1) Diabetic nephropathy (2) Cellulitis of left foot Assessment & Plan: Pt presented on admission with Moisture Intertrigo Bilat Breasts and Abdominal folds. Unstageable Pressure Injury Lateral L heel (L) 2.2cm x (W)2.2cm. Base of wound is 80% soft necrosis,10% slough, remaining 10% monique.Epibole approx 50% borders,50% pink. Small amt Brownish exudate. Wound is malodorous. Loose non-viable tissue removed.Base of wound now 90% slough,10% monique. Odor improved post cleansing. Therahoney applied with small 2x2 packing, covered with ABD pad and wrapped with Kerlix until orders for wound care can be clarified with DPM. Both feet are cold to touch and dusky at distal aspect including metatarsals both feet;dorsum L 3rd metatarsal is black. Dry eschar noted to L 1st metatarsal head(L)1.1cm x (W)1.6cm.Pt complained of pain LLE and L foot to slightest touch or movement R heel is boggy and pale. Moisture Intertrigo skin folds both breasts and abdominal folds. Both areas are malodorous. Cleansed with soap and water and gently dried. Phytoplex Antifungal Powder applied to affected areas. R and L groin are moist and erythematous. Moisture Barrier Paste applied. Darker skin tone with two small indurated areas at Sacrococcygeal area noted. Pt complained site tender when minimally palpated. In close proximity above coccyx at cleft is resolving Pressure injury. Mcrae epithelial noted. An area of hyperpigmentation with pink epithelial medially noted to L Ischial tuberosity. Hyperpigmentation noted to R Ischium. Tx.Plan: Wash and dry skin folds both breasts and Abdominal folds. Apply Light Dusting of Antifungal powder Twice Daily. Apply Moisture Barrier Paste to Bilat groin and Buttocks with each Incontinence care. Cover Sacrum with Optifoam drsg. Change every 3 days and prn. Apply Cavilon Skin Barrier to bilateral Heel and Malleoli. Cover with Optifoam drsg. Change every 7 days and prn. Reposition at least every 2hours or as tolerated. Off-load heels with pillow. Flow images demonstrate overall asymmetrically increased flow in the right foot, particularly in the region of the calcaneal tuberosity, midfoot and forefoot. There is equivocally slightly increased flow in the left heel. Blood pool images likewise demonstrate increased activity on the right, involving the midfoot and forefoot. Very subtle slightly increased activity is seen in the region of the left calcaneal tuberosity. On the static images, there is very mildly prominent activity in the left calcaneal tuberosity, but this is actually less striking than on the contralateral side. Ill-defined increased activity is seen in the left midfoot and in the right midfoot and forefoot. There is some increased activity in the region of the right metatarsophalangeal joint which is probably degenerative in nature. Impression: No significant abnormality in the left heel to suggest osteomyelitis of the location of clinically described left heel wound. Mild bilateral abnormal uptake, as detailed above, likely reflecting degenerative changes (3) Pacemaker (4) Anemia in chronic kidney disease (CKD) (5) History of CVA (cerebrovascular accident) (6) History of atrial fibrillation (7) ESRD (end stage renal disease) (8) COPD (chronic obstructive pulmonary disease) (9) Bradycardia (10) Diabetic nephropathy (11) Hypertensive kidney disease (12) Volume overload (13) Heel abrasion (14) Elevated troponin I level (15) Urinary tract infection due to Proteus (16) Dyspnea (17) Symptomatic anemia (18) Acute on chronic renal failure (19) Anemia (20) HTN (hypertension) LuisA lberto Cade May 01, 2020 12:02
--- NOTE | 2020-05-01 13:30 | NUR ---
NURSE NOTES: Patient received from Tori BEAN. 1300 meds endorsed. Patient stable, AOx1 with no complaints stating she's feeling good. No s/sx of pain or distress. RR even and unlabored on RA.Bed low and locked, call light within reach, side rails up x2. Will continue to monitor.
--- NOTE | 2020-05-01 14:06 | Pulmonology Progress Note ---
Subjective ROS Limited/Unobtainable: No Constitutional: Reports: no symptoms HEENT: Repors: no symptoms Respiratory: Reports: no symptoms Cardiovascular: Reports: no symptoms Allergies: Coded Allergies: PENICILLINS (Verified Allergy, Unknown, 04/23/20) Tolerated Cefepime 04/23/20 Objective Last 24 Hour Vital Signs Date Time Temp Pulse Resp B/P (MAP) Pulse Ox O2 Delivery O2 Flow Rate FiO2 05/01/20 12:00 97.5 60 20 120/46 (70) 98 05/01/20 12:00 60 05/01/20 09:00 Nasal Cannula 2.0 Nasal Cannula 2.0 Nasal Cannula 2.0 05/01/20 08:00 97.7 60 18 123/48 (73) 99 05/01/20 08:00 60 05/01/20 04:00 60 05/01/20 04:00 98.2 60 16 109/49 (69) 100 05/01/20 00:00 60 05/01/20 00:00 98.9 60 16 128/56 (80) 100 04/30/20 21:00 Nasal Cannula 2.0 Nasal Cannula 2.0 Nasal Cannula 2.0 04/30/20 20:00 60 04/30/20 20:00 97.9 60 18 132/55 (80) 100 04/30/20 16:00 97.5 66 18 109/39 (62) 98 04/30/20 16:00 61 04/30/20 14:50 60 20 146/38 (74) 100 04/30/20 14:45 60 20 160/42 (81) 100 04/30/20 14:40 60 16 136/49 (78) 100 04/30/20 14:28 60 16 3.0 Intake and Output 04/30/20 05/01/20 19:00 07:00 Intake Total 300 ml Balance 300 ml Intake Oral 300 ml General Appearance: no acute distress HEENT: normocephalic Respiratory: chest wall non-tender Cardiovascular: normal peripheral pulses Abdomen: soft, non tender Laboratory Tests 04/30/20 21:17: POC Whole Blood Glucose [Pending] 05/01/20 06:57: POC Whole Blood Glucose 93 05/01/20 11:18: POC Whole Blood Glucose [Pending] Current Medications Medications (Trade) Dose Ordered Sig/Jesus Route PRN Reason Start Time Stop Time Status Last Admin Dose Admin Acetaminophen/ Hydrocodone Bitart ([place] 5/325) 1 tab Q4H PRN ORAL Pain 3-6 04/28/20 19:30 05/04/20 19:29 04/29/20 06:19 Aspirin (ASA) 81 mg DAILY ORAL 04/29/20 09:00 06/08/20 08:59 05/01/20 09:41 Atorvastatin Calcium (Lipitor) 40 mg BEDTIME ORAL 04/28/20 21:00 07/24/20 20:59 04/30/20 20:59 Barium Sulfate (Varibar Honey) 250 ml NOW PRN Radiology Procedure 04/30/20 12:15 05/03/20 12:15 Barium Sulfate (Varibar [place]) 230 ml NOW PRN Radiology Procedure 04/30/20 12:15 05/03/20 12:15 Barium Sulfate (Varibar Pudding) 230 ml NOW PRN Radiology Procedure 04/30/20 12:15 05/03/20 12:15 Chlorhexidine Gluconate (Cira-Hex 2%) 1 applic DAILY@1999 TOPIC 04/28/20 20:00 07/22/20 19:59 04/30/20 20:59 Dextrose (Dextrose 50%) 25 ml Q30M PRN IV Hypoglycemia 04/29/20 23:30 07/28/20 23:29 Dextrose (Dextrose 50%) 50 ml Q30M PRN IV Hypoglycemia 04/29/20 23:30 07/28/20 23:29 Docusate Sodium (Colace) 100 mg THREE TIMES A DAY ORAL 04/29/20 13:00 05/29/20 12:59 05/01/20 13:39 Epoetin Jose (Epoetin Jose(ESRD on dialysis)) 10,000 unit MON-WED-FRI SUBQ 04/30/20 21:00 07/27/20 20:59 04/30/20 21:00 Folic Acid (Folate) 1 mg DAILY ORAL 04/29/20 09:00 05/26/20 08:59 05/01/20 09:41 Heparin Sodium (Porcine) (Heparin 5000 units/ml) 5,000 units EVERY 12 HOURS SUBQ 04/28/20 21:00 06/12/20 20:59 Heparin Sodium (Porcine) (Heparin Sod 1000 units/ml 10ml) 1,000 unit ONCE PRN INJ radiology procedure 04/30/20 13:45 05/01/20 23:59 Heparin Sodium/ Sodium Chloride (Heparin 1000 units/500ml Premix) 1,000 unit ONCE PRN INJ radiology procedure 04/30/20 13:45 05/01/20 23:59 Hydralazine HCl (Apresoline) 25 mg Q4H PRN ORAL For blood pressure over 160 sy 04/28/20 19:45 07/24/20 19:36 Hydromorphone HCl (Dilaudid) 0.5 mg Q4H PRN SUBQ Pain 7-04/28/20 19:45 05/04/20 19:44 Insulin Aspart (NovoLOG) BEFORE MEALS AND HS SUBQ 04/30/20 06:30 07/29/20 06:29 Lidocaine/ Epinephrine (Lidocaine 2%/ Epi 20ml) 40 ml ONCE PRN INJ radiology procedure 04/30/20 13:45 05/01/20 23:59 Midodrine (Pro-Amatine) 10 mg THREE TIMES A DAY ORAL 04/29/20 09:00 07/25/20 10:29 05/01/20 09:41 Ondansetron HCl (Zofran) 4 mg Q6H PRN IVP Nausea & Vomiting 04/28/20 19:45 05/25/20 19:37 Pantoprazole (Protonix) 40 mg EVERY 12 HOURS ORAL 04/30/20 21:00 05/30/20 20:59 05/01/20 09:41 Sevelamer Carbonate (Renvela) 800 mg THREE TIMES A DAY ORAL 04/29/20 09:00 07/23/20 08:59 05/01/20 13:39 Vancomycin HCl ([facility] pharmacy to dose) 1 ea DAILY PRN MISC Per rx protocol 04/28/20 19:45 05/28/20 19:44 Assessment/Plan Assessment/Plan Pulmonary Progress Note Patient with end-stage renal disease, HTN, Previous CVA, recent pulmonary edema , out of ICU Has decubitus wound, paroxysmal atrial fibrillation, diabetes type 2, hyperlipidemia, dementia. Subjective ROS Limited/Unobtainable: No Constitutional: Reports: no symptoms HEENT: Repors: no symptoms Respiratory: Reports: no symptoms Cardiovascular: Reports: no symptoms Allergies: Coded Allergies: PENICILLINS (Verified Allergy, Unknown, 04/23/20) Tolerated Cefepime 04/23/20 Objective Vital Signs Noted General Appearance: no acute distress HEENT: normocephalic Respiratory: chest wall non-tender Cardiovascular: normal peripheral pulses Abdomen: soft, non tender Laboratory Tests Noted Assessment/Plan ASSESSMENT: 1. Mild pulmonary edema 2. Decubitus wound, 3. End-stage renal disease, on temporary PermCath hemodialysis access. 2. Paroxysmal atrial fibrillation, 3. Diabetes type 2. 4. Hypertension. 5. Hyperlipidemia. 6. CVA-history. 7. Dementia. PLAN: Hemodialysis per Renal Continue local wound care Oxygen PRN, pulmonary hygiene Broad spectrum AB Benjamín Jane MD May 01, 2020 14:06
--- NOTE | 2020-05-01 15:00 | NUR ---
NURSE NOTES: Dialysis started now. Patient stable and responsive AOx1.
--- NOTE | 2020-05-01 16:14 | NUR ---
NURSE NOTES: Patient vomited immediately after renvela and colace administration. 100mLs. Will hold 1800 dose and endorse to give later tonight if she is feeling better. Patient did not want to eat lunch earlier. Has been having poor appetite. MD notified. Addendum: 05/01/20 at 1620 by GRAZYNA MORALES RN Patient dialyzed now. SBP now up to 100's but was previously in the 70's. Dr. Stephenson aware and received order for albumin 25% 100mLs.
--- NOTE | 2020-05-01 18:48 | Infectious Diseases Prog Note ---
Assessment/Plan Assessment: HOME ENERGY [employer]UD[employer] 04/25- due to hypotension and desaturation -hypoxic on ABG SEvere sepsis S. capitis bacteremia, persistent- likely HD line infection in the setting of sepsis -04/23 Bcx 1/ Staph capitis ; 04/25 Bcx 1/4 Staph capitis; 04/27 Bcx NTD x4 ( peripheral, HD line) -2d Echo: no vegetations seen Pulmonary edema vs PNA -04/30 CXR: Mild perihilar interstitial congestion, unchanged from 04/25/2020. -04/25 SARS-COV2 PCR neg -04/25 CXR: Perihilar opacities may represent pulmonary edema versus infectious/inflammatory process. Elevated trop L foot/ankle wound; no grossly infected- no OM on bone scan -04/28 Bone scan: No significant abnormality in the left heel to suggest osteomyelitis of the location of clinically described left heel wound. Mild bilateral abnormal uptake, as detailed above, likely reflecting degenerative changes -xray L foot/ankle: No acute findings in the left foot. 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 s/p PPM asthma ESRD on HD (MWF) Plan: -Continue IV Vancomycin # / for bacteremia -04/29 SP Cefepime #5 -04/25 SP Ceftriaxone #3 -04/23 SP Cefepime x1 -f/u cx -Monitor CBC/CMP, temperatures -wound care per truck loader -Podiatry, renal, cards, pulm f/u - f/u Bcx x2 (peripheral & HD line); for permacath placement today -COVID19 neg x1 -aspiration precautions Thank you for consulting [facility]. Will continue to follow along . Discussed with RN and Dr Stephenson. Updated daughter via phone (on 04/28) Subjective Constitutional: Denies: no symptoms, fever, chills, fatigue, anorexia, drenching sweats, other Allergies: Coded Allergies: PENICILLINS (Verified Allergy, Unknown, 04/23/20) Tolerated Cefepime 04/23/20 Objective Last 24 Hour Vital Signs Date Time Temp Pulse Resp B/P (MAP) Pulse Ox O2 Delivery O2 Flow Rate FiO2 05/01/20 18:00 59 111/50 (70) 05/01/20 16:00 97.5 59 18 101/41 (61) 97 05/01/20 16:00 60 05/01/20 15:45 60 77/32 (47) 05/01/20 15:39 60 91/38 (55) 05/01/20 15:30 60 91/41 (58) 05/01/20 15:15 60 129/50 (76) 05/01/20 12:00 97.5 60 20 120/46 (70) 98 05/01/20 12:00 60 05/01/20 09:00 Nasal Cannula 2.0 Nasal Cannula 2.0 Nasal Cannula 2.0 05/01/20 08:00 97.7 60 18 123/48 (73) 99 05/01/20 08:00 60 05/01/20 04:00 60 05/01/20 04:00 98.2 60 16 109/49 (69) 100 05/01/20 00:00 60 05/01/20 00:00 98.9 60 16 128/56 (80) 100 04/30/20 21:00 Nasal Cannula 2.0 Nasal Cannula 2.0 Nasal Cannula 2.0 04/30/20 20:00 60 04/30/20 20:00 97.9 60 18 132/55 (80) 100 Height (Feet): 5 Height (Inches): 5.00 Weight (Pounds): 260 HEENT: atraumatic Respiratory/Chest: normal breath sounds Cardiovascular: regularly irregular Laboratory Tests Test 04/30/20 21:17 05/01/20 06:57 05/01/20 11:18 POC Whole Blood Glucose Pending 93 MG/DL (74-106) Pending Current Medications Medications (Trade) Dose Ordered Sig/Jesus Route PRN Reason Start Time Stop Time Status Last Admin Dose Admin Acetaminophen/ Hydrocodone Bitart ([place] 5/325) 1 tab Q4H PRN ORAL Pain 3-6 04/28/20 19:30 05/04/20 19:29 04/29/20 06:19 Aspirin (ASA) 81 mg DAILY ORAL 04/29/20 09:00 06/08/20 08:59 05/01/20 09:41 Atorvastatin Calcium (Lipitor) 40 mg BEDTIME ORAL 04/28/20 21:00 07/24/20 20:59 04/30/20 20:59 Barium Sulfate (Varibar Honey) 250 ml NOW PRN Radiology Procedure 04/30/20 12:15 05/03/20 12:15 Barium Sulfate (Varibar [place]) 230 ml NOW PRN Radiology Procedure 04/30/20 12:15 05/03/20 12:15 Barium Sulfate (Varibar Pudding) 230 ml NOW PRN Radiology Procedure 04/30/20 12:15 05/03/20 12:15 Chlorhexidine Gluconate (Cira-Hex 2%) 1 applic DAILY@2000 TOPIC 04/28/20 20:00 07/22/20 19:59 04/30/20 20:59 Dextrose (Dextrose 50%) 25 ml Q30M PRN IV Hypoglycemia 04/29/20 23:30 07/28/20 23:29 Dextrose (Dextrose 50%) 50 ml Q30M PRN IV Hypoglycemia 04/29/20 23:30 07/28/20 23:29 Docusate Sodium (Colace) 100 mg THREE TIMES A DAY ORAL 04/29/20 13:00 05/29/20 12:59 05/01/20 13:39 Epoetin Jose (Epoetin Jose(ESRD on dialysis)) 10,000 unit SUN-SUN-SUN SUBQ 04/30/20 21:00 07/27/20 20:59 04/30/20 21:00 Folic Acid (Folate) 1 mg DAILY ORAL 04/29/20 09:00 05/26/20 08:59 05/01/20 09:41 Heparin Sodium (Porcine) (Heparin 5000 units/ml) 5,000 units EVERY 12 HOURS SUBQ 04/28/20 21:00 06/12/20 20:59 Heparin Sodium (Porcine) (Heparin Sod 1000 units/ml 10ml) 1,000 unit ONCE PRN INJ radiology procedure 04/30/20 13:45 05/01/20 23:59 Heparin Sodium/ Sodium Chloride (Heparin 1000 units/500ml Premix) 1,000 unit ONCE PRN INJ radiology procedure 04/30/20 13:45 05/01/20 23:59 Hydralazine HCl (Apresoline) 25 mg Q4H PRN ORAL For blood pressure over 160 sy 04/28/20 19:45 07/24/20 19:36 Hydromorphone HCl (Dilaudid) 0.5 mg Q4H PRN SUBQ Pain 7-10 04/28/20 19:45 05/04/20 19:44 Insulin Aspart (NovoLOG) BEFORE MEALS AND HS SUBQ 04/30/20 06:30 07/29/20 06:29 Lidocaine/ Epinephrine (Lidocaine 2%/ Epi 20ml) 40 ml ONCE PRN INJ radiology procedure 04/30/20 13:45 05/01/20 23:59 Midodrine (Pro-Amatine) 10 mg THREE TIMES A DAY ORAL 04/29/20 09:00 07/25/20 10:29 05/01/20 09:41 Ondansetron HCl (Zofran) 4 mg Q6H PRN IVP Nausea & Vomiting 04/28/20 19:45 05/25/20 19:37 Pantoprazole (Protonix) 40 mg EVERY 12 HOURS ORAL 04/30/20 21:00 05/30/20 20:59 05/01/20 09:41 Sevelamer Carbonate (Renvela) 800 mg THREE TIMES A DAY ORAL 04/29/20 09:00 07/23/20 08:59 05/01/20 13:39 Vancomycin HCl ([facility] pharmacy to dose) 1 ea DAILY PRN MISC Per rx protocol 04/28/20 19:45 05/28/20 19:44 Carlo Lawrence MD May 01, 2020 18:48
--- NOTE | 2020-05-01 19:06 | NUR ---
HAND-OFF: Report given to Thomas BEAN. Patient stable. Plan of care endorsed. Reported that BS was 90 and was unable to give patient anything due to patient being supine due to low BP during dialysis. Addendum: 05/01/20 at 1916 by GRAZYNA MORALES RN Also endorsed that WCP and wound care was unable to be performed due to pt vomiting and being dialyzed right after.
--- NOTE | 2020-05-01 19:37 | NUR ---
NURSE NOTES: Report received from VIKAS Kirkpatrick. Observed pt lying in the bed, A/O x3. A paced on quality assurance monitor chassis. NC 2L, no sob noted. Purewick applied. IV on R AC 20G, TKO. Bed in the lowest position. Side rails up x3. Call light within reach. Will continue to monitor.
[2020-05-01] MEDS: Atorvastatin 20mg tab ORAL SCH (20:38)
[2020-05-01] MEDS: Dyna-Hex 2% Top Sol 2oz TOPIC SCH (20:39)
--- NOTE | 2020-05-01 20:45 | Cardiology Progress Note ---
Assessment/Plan Assessment/Plan 1. Hypotension, resolved, likely caused by gram + bacteremia, 2D echo shows normal LV systolic function. 2. Slight elevation of troponin I level due to hypotension/shock. Continue ASA and atorvastatin. 3. Paroxysmal atrial fibrillation. Continue amiodarone and apixaban. 4. History of CVA with left hemiparesis. 5. Hypoxic hypercarbic respiratory failure. 6. Dual chamber pacemaker, atrial paced, ventricular sensed. Subjective Subjective Atrial paced ventricular sensed at rate of 60. On NC oxygen. Objective Last 24 Hour Vital Signs Date Time Temp Pulse Resp B/P (MAP) Pulse Ox O2 Delivery O2 Flow Rate FiO2 05/01/20 19:33 97 Nasal Cannula 2.0 28 05/01/20 18:00 59 111/50 (70) 05/01/20 16:00 97.5 59 18 101/41 (61) 97 05/01/20 16:00 60 05/01/20 15:45 60 77/32 (47) 05/01/20 15:39 60 91/38 (55) 05/01/20 15:30 60 91/41 (58) 05/01/20 15:15 60 129/50 (76) 05/01/20 12:00 97.5 60 20 120/46 (70) 98 05/01/20 12:00 60 05/01/20 09:00 Nasal Cannula 2.0 Nasal Cannula 2.0 Nasal Cannula 2.0 05/01/20 08:00 97.7 60 18 123/48 (73) 99 05/01/20 08:00 60 05/01/20 04:00 60 05/01/20 04:00 98.2 60 16 109/49 (69) 100 05/01/20 00:00 60 05/01/20 00:00 98.9 60 16 128/56 (80) 100 04/30/20 21:00 Nasal Cannula 2.0 Nasal Cannula 2.0 Nasal Cannula 2.0 Intake and Output 04/30/20 05/01/20 19:00 07:00 Intake Total 300 ml Balance 300 ml Intake Oral 300 ml 2D Echo: LVEF 60%, JENY, Severe AR, RVSP 61 mmHg Laboratory Tests Test 04/30/20 21:17 05/01/20 06:57 05/01/20 11:18 05/01/20 20:13 POC Whole Blood Glucose Pending 93 MG/DL (74-106) Pending 92 MG/DL (74-106) Objective HEENT: Atraumatic, normocephalic. Anicteric. Pupils are equal, round, and reactive to light and accommodation. Extraocular muscles intact. NECK: JVP cannot be assessed. No carotid bruit. Carotid upstroke is 2+ bilaterally. CARDIOVASCULAR: Normal S1, S2. There is 2/6 mid systolic murmur at the left sternal border. PMI is at fourth intercostal space at the midclavicular line, + pacemaker pocket left side. LUNGS: Bibasilar crackles. ABDOMEN: Soft, nontender, and nondistended. No hepatosplenomegaly. Positive bowel sounds. EXTREMITIES: Diminished dorsalis pedis pulses of 1+. There is diminished motor function on the left lower extremity and upper extremity. Triston Joy MD May 01, 2020 20:45
[2020-05-02] VITALS (7 sets, daily range): BP systolic 92–134; BP diastolic 32–58
--- NOTE | 2020-05-02 00:25 | NUR ---
NURSE NOTES: Pt sleeping in the bed. VS WNL. Pt confused and reorientation done. Reposition done. No acute distress noted at this time. Will continue to monitor.
[2020-05-02] MEDS: NovoLOG Insulin Flexpen SUBQ SCH ×4 (06:30→20:25)
--- NOTE | 2020-05-02 07:16 | NUR ---
HAND-OFF: Report given to VIKAS Kirkpatrick.
--- NOTE | 2020-05-02 07:49 | NUR ---
NURSE NOTES: Received update from VIKAS Manley. Pt is A/O x1 and responsive. NO SOB or acute distress. Cardiac monitoring in place with SR. Resting in bed with heels floated. No pain noted. Placed bed in lowest and locked position, bed alarm on. And call light within reach.
--- NOTE | 2020-05-02 08:59 | General Progress Note ---
Assessment/Plan Status: stable, unchanged Assessment/Plan: S: appears comfortable. O: controlled pain . seen and examined in Tele units. talks and communicate PHYSICAL EXAMINATION: HEAD AND NECK: Atraumatic and normocephalic. CHEST: Right IJ permcath in place, Clear to auscultation. HEART: S1, S2. Regular rate and rhythm. Bradycardic. MUSCULOSKELETAL: paraparesis. stage 3 decubitus wound in calcaneal region. NEUROLOGIC: The patient is awake and alert x 2. LABORATORY AND DIAGNOSTIC DATA: Labs dated 05/01/20 reviewed Imaging: bone scan dated April 28 reviewed ASSESSMENT: 1. Sepsis secondary to Gram positive coccidiema , likely line infection 2. Acute Hypoxemic respiratory failure, s/p rapid response assessment 2. Hypotension : ddx; adrenal insufficiency 3. HyperKalemia 2. Decubitus wound, enlarging and infected. 3. End-stage renal disease, on temporary PermCath hemodialysis access. 2. Paroxysmal atrial fibrillation, rate is stable. 3. Diabetes type 2. 4. Hypertension. 5. Hyperlipidemia. 6. CVA-history. 7. CHF-Diastolic type 8. Dementia. 8. Gastrointestinal and deep vein thrombosis prophylaxes. 9. Pain management 10. iron deficiency anemia Plan: Seen in ICU Empirical abx initiated Notes from [id number] care reviewed Notified Dr Fam and D/w Dr Saavedra c/w Batsheva PRN breakthrough Consulte Hem onch Post Calcium/Novolog/D50 treatment with favorable response HD per nephrology will remove HD access post HD D/w Nephrology, ID and Vascular surgeon DC the eliquis in anticipation of Vascular procedures post reinsertion of PermCath D/W Dr Fam for revision of AV G-F D/W Rn to change the insulin regiment to avoid hypoglycemia Subjective Allergies: Coded Allergies: PENICILLINS (Verified Allergy, Unknown, 04/23/20) Tolerated Cefepime 04/23/20 Objective Last 24 Hour Vital Signs Date Time Temp Pulse Resp B/P (MAP) Pulse Ox O2 Delivery O2 Flow Rate FiO2 05/02/20 04:00 60 05/02/20 04:00 98.0 62 24 117/58 (77) 96 05/02/20 00:00 62 05/02/20 00:00 97.9 66 20 133/53 (79) 98 05/01/20 21:00 Nasal Cannula 2.0 Nasal Cannula 2.0 Nasal Cannula 2.0 05/01/20 20:00 62 05/01/20 20:00 98.8 65 20 115/58 (77) 97 05/01/20 19:33 97 Nasal Cannula 2.0 28 05/01/20 18:00 59 111/50 (70) 05/01/20 16:00 97.5 59 18 101/41 (61) 97 05/01/20 16:00 60 05/01/20 15:45 60 77/32 (47) 05/01/20 15:39 60 91/38 (55) 05/01/20 15:30 60 91/41 (58) 05/01/20 15:15 60 129/50 (76) 05/01/20 12:00 97.5 60 20 120/46 (70) 98 05/01/20 12:00 60 05/01/20 09:00 Nasal Cannula 2.0 Nasal Cannula 2.0 Nasal Cannula 2.0 Intake and Output 05/01/20 05/02/20 19:00 07:00 Intake Total 1620 ml Output Total 100 ml Balance 1520 ml Intake Oral 120 ml Hemodialysis 1500 ml Emesis 100 ml # Bowel Movements 1 Laboratory Tests 05/01/20 11:18: POC Whole Blood Glucose [Pending] 05/01/20 20:13: POC Whole Blood Glucose 92 Height (Feet): 5 Height (Inches): 5.00 Weight (Pounds): 263 Danie Banegas MD May 02, 2020 08:59
[2020-05-02] MEDS: Aspirin Baby 81mg ORAL SCH (09:00)
[2020-05-02] MEDS: Docusate 100mg/10ml Liq ORAL SCH ×3 (09:38→17:24)
[2020-05-02] MEDS: Midodrine 10mg tab ORAL SCH ×3 (09:38→17:24)
[2020-05-02] MEDS: Renvela 800mg Pkt ORAL SCH ×3 (09:38→17:24)
[2020-05-02] MEDS: Heparin 5000 units/ml inj SUBQ SCH ×2 (09:42→20:24)
[2020-05-02 10:56] LABS: HEMATOCRIT 24.2 % (37.0-47.0); HEMOGLOBIN 7.7 G/DL (12.0-16.0); MEAN CORPUSCULAR VOLUME 93 FL (80-99); PLATELET COUNT 139 K/UL (150-450); RED BLOOD COUNT 2.61 M/UL (4.20-5.40); RED CELL DISTRIBUTION WIDTH 15.3 % (11.6-14.8); WHITE BLOOD COUNT 5.1 K/UL (4.8-10.8)
[2020-05-02 11:13] LABS: ALANINE AMINOTRANSFERASE 13 U/L (12-78); ALBUMIN 2.7 G/DL (3.4-5.0); ALBUMIN/GLOBULIN RATIO 0.9 (1.0-2.7); ALKALINE PHOSPHATASE 54 U/L (46-116); ANION GAP 7 mmol/L (5-15); ASPARTATE AMINO TRANSFERASE 21 U/L (15-37); BILIRUBIN,TOTAL 0.4 MG/DL (0.2-1.0); BLOOD UREA NITROGEN 27 mg/dL (7-18); CALCIUM 8.5 MG/DL (8.5-10.1); CARBON DIOXIDE 32 MMOL/L (21-32); CHLORIDE 94 MMOL/L (98-107); POTASSIUM 3.6 MMOL/L (3.5-5.1); SODIUM 133 MMOL/L (136-145)
[2020-05-02 11:23] LABS: PHOSPHORUS 4.1 MG/DL (2.5-4.9)
--- NOTE | 2020-05-02 11:27 | Nephrology Progress Note ---
Assessment/Plan Problem List: (1) ESRD (end stage renal disease) (2) Pacemaker (3) Diabetic nephropathy (4) Cellulitis of left foot (5) Anemia in chronic kidney disease (CKD) (6) History of CVA (cerebrovascular accident) (7) History of atrial fibrillation Plan May 02: Dialyzed yesterday. Will order dialysis tomorrow. 1 unit blood transfusion for low hemoglobin. Continue rest of medications. May 01: Patient due for dialysis today. Continue to monitor renal parameters and dialyze as needed. Continue per ID. Will check lab tomorrow. April 30: Patient due for insertion of a permacath today. Will arrange for dialysis tomorrow. Blood cultures remain negative. COVID-19 test negative. Discussed with RN. April 29: Permacath was taken out yesterday. Will place the catheter tomorrow. Blood cultures negative so far. Continue per consultants. April 28: Dialyzed yesterday. Will remove permacath today. Will do surveillance blood culture. Will aim to put catheter back in 48 hours. April 27: Due for dialysis today. Potassium 5.6. Will give Kayexalate. Blood pressure better under control. Continue per consultants. Also as per ID recommendation based on the blood culture results will remove the permacath tomorrow and will send the tip for culture. Will aim to have another catheter in 48 hours later. In the interim we will do surveillance blood culture. Patient received dialysis last evening for hyperkalemia. Patient had to be transferred to ICU for low blood pressure despite of multiple fluid challenges. Currently in ICU blood pressure 85-90 systolic. Patient on no blood pressure medication. Troponin I slightly elevated. 2D echocardiogram pending. Will start midodrine. Will aim to dialyze tomorrow. Monitor H&H and renal parameters and electrolytes Antibiotic per ID Pain medication adjusted Continue per consultants Subjective ROS Limited/Unobtainable: No Constitutional: Reports: malaise, weakness Objective Objective Last 24 Hour Vital Signs Date Time Temp Pulse Resp B/P (MAP) Pulse Ox O2 Delivery O2 Flow Rate FiO2 05/02/20 09:00 Nasal Cannula 2.0 Nasal Cannula 2.0 Nasal Cannula 2.0 05/02/20 08:00 97.9 60 20 100/40 (60) 100 05/02/20 08:00 60 05/02/20 04:00 60 05/02/20 04:00 98.0 62 24 117/58 (77) 96 05/02/20 00:00 62 05/02/20 00:00 97.9 66 20 133/53 (79) 98 05/01/20 21:00 Nasal Cannula 2.0 Nasal Cannula 2.0 Nasal Cannula 2.0 05/01/20 20:00 62 05/01/20 20:00 98.8 65 20 115/58 (77) 97 05/01/20 19:33 97 Nasal Cannula 2.0 28 05/01/20 18:00 59 111/50 (70) 05/01/20 16:00 97.5 59 18 101/41 (61) 97 05/01/20 16:00 60 05/01/20 15:45 60 77/32 (47) 05/01/20 15:39 60 91/38 (55) 05/01/20 15:30 60 91/41 (58) 05/01/20 15:15 60 129/50 (76) 05/01/20 12:00 97.5 60 20 120/46 (70) 98 05/01/20 12:00 60 Intake and Output 05/01/20 05/02/20 19:00 07:00 Intake Total 1620 ml Output Total 100 ml Balance 1520 ml Intake Oral 120 ml Hemodialysis 1500 ml Emesis 100 ml # Bowel Movements 1 Current Medications Medications (Trade) Dose Ordered Sig/Jesus Route PRN Reason Start Time Stop Time Status Last Admin Dose Admin Acetaminophen/ Hydrocodone Bitart ([place] 5/325) 1 tab Q4H PRN ORAL Pain 3-6 04/28/20 19:30 05/04/20 19:29 04/29/20 06:19 Aspirin (ASA) 81 mg DAILY ORAL 04/29/20 09:00 06/08/20 08:59 05/02/20 09:00 Atorvastatin Calcium (Lipitor) 40 mg BEDTIME ORAL 04/28/20 21:00 07/24/20 20:59 05/01/20 20:38 Barium Sulfate (Varibar Honey) 250 ml NOW PRN Radiology Procedure 04/30/20 12:15 05/03/20 12:15 Barium Sulfate (Varibar [place]) 230 ml NOW PRN Radiology Procedure 04/30/20 12:15 05/03/20 12:15 Barium Sulfate (Varibar Pudding) 230 ml NOW PRN MC Radiology Procedure 04/30/20 12:15 05/03/20 12:15 Chlorhexidine Gluconate (Cira-Hex 2%) 1 applic DAILY@1999 TOPIC 04/28/20 20:00 07/22/20 19:59 05/01/20 20:39 Dextrose (Dextrose 50%) 25 ml Q30M PRN IV Hypoglycemia 04/29/20 23:30 07/28/20 23:29 Dextrose (Dextrose 50%) 50 ml Q30M PRN IV Hypoglycemia 04/29/20 23:30 07/28/20 23:29 Docusate Sodium (Colace) 100 mg THREE TIMES A DAY ORAL 04/29/20 13:00 05/29/20 12:59 05/02/20 09:38 Epoetin Jose (Epoetin Jose(ESRD on dialysis)) 10,000 unit SUN-SUN-SUN SUBQ 04/30/20 21:00 07/27/20 20:59 04/30/20 21:00 Folic Acid (Folate) 1 mg DAILY ORAL 04/29/20 09:00 05/26/20 08:59 05/02/20 09:38 Heparin Sodium (Porcine) (Heparin 5000 units/ml) 5,000 units EVERY 12 HOURS SUBQ 04/28/20 21:00 06/12/20 20:59 05/02/20 09:42 Hydralazine HCl (Apresoline) 25 mg Q4H PRN ORAL For blood pressure over 160 sy 04/28/20 19:45 07/24/20 19:36 Hydromorphone HCl (Dilaudid) 0.5 mg Q4H PRN SUBQ Pain 7-04/28/20 19:45 05/04/20 19:44 Insulin Aspart (NovoLOG) BEFORE MEALS AND HS SUBQ 05/02/20 11:30 07/31/20 11:29 Midodrine (Pro-Amatine) 10 mg THREE TIMES A DAY ORAL 04/29/20 09:00 07/25/20 10:29 05/02/20 09:38 Ondansetron HCl (Zofran) 4 mg Q6H PRN IVP Nausea & Vomiting 04/28/20 19:45 05/25/20 19:37 Pantoprazole (Protonix) 40 mg EVERY 12 HOURS ORAL 04/30/20 21:00 05/30/20 20:59 05/02/20 09:38 Sevelamer Carbonate (Renvela) 800 mg THREE TIMES A DAY ORAL 04/29/20 09:00 07/23/20 08:59 05/02/20 09:38 Vancomycin HCl (Vanco pharmacy to dose) 1 ea DAILY PRN MISC Per rx protocol 04/28/20 19:45 05/28/20 19:44 Vancomycin HCl 750 mg/Sodium Chloride 275 ml @ 183.333 mls/hr ONCE ONCE IVPB 05/02/20 13:00 05/02/20 14:29 Laboratory Tests 05/01/20 20:13: POC Whole Blood Glucose 92 05/02/20 10:45: White Blood Count 5.1, Red Blood Count 2.61L, Hemoglobin 7.7L, Hematocrit 24.2L , Mean Corpuscular Volume 93, Mean Corpuscular Hemoglobin 29.5, Mean Corpuscular Hemoglobin Concent 31.8L, Red Cell Distribution Width 15.3H, Platelet Count 139L, Mean Platelet Volume 7.4, Neutrophils (%) (Auto) , Lymphocytes (%) (Auto) , Monocytes (%) (Auto) , Eosinophils (%) (Auto) , Basophils (%) (Auto) , Neutrophils % (Manual) [Pending], Lymphocytes % (Manual) [Pending], Platelet Estimate [Pending], Platelet Morphology [Pending], Sodium Level 133L, Potassium Level 3.6, Chloride Level 94L, Carbon Dioxide Level 32, Anion Gap 7, Blood Urea Nitrogen 27H, Creatinine 5.0H, Estimat Glomerular Filtration Rate 10.3, Glucose Level 84, Calcium Level 8.5, Phosphorus Level 4.1 , Total Bilirubin 0.4, Aspartate Amino Transf (AST/SGOT) 21, Alanine Aminotransferase (ALT/SGPT) 13, Alkaline Phosphatase 54, C-Reactive Protein, Quantitative 5.8H, Total Protein 5.6L, Albumin 2.7L, Globulin 2.9, Albumin/ Globulin Ratio 0.9L, Random Vancomycin Level 17.4 Height (Feet): 5 Height (Inches): 5.00 Weight (Pounds): 263 General Appearance: no apparent distress, lethargic Cardiovascular: normal rate Respiratory/Chest: decreased breath sounds Abdomen: soft Fouladian,Manas MD May 02, 2020 11:27
--- NOTE | 2020-05-02 11:36 | NUR ---
NURSE NOTES: [facility] called and informed of dialysis order for tomorrow. Addendum: 05/02/20 at 1139 by GRAZYNA MORALES RN Orders put in as well for 1 unit PRBCs as ordered by Dr. Stephenson.
--- NOTE | 2020-05-02 12:00 | Surgery Progress Note ---
Surgery Progress Note Subjective Additional Comments doing well comfortable no complaints no n/v/f/c exam stable states feels well HD tomorrow dressings going well Objective Last 24 Hour Vital Signs Date Time Temp Pulse Resp B/P (MAP) Pulse Ox O2 Delivery O2 Flow Rate FiO2 05/02/20 11:55 98.1 60 18 92/32 (52) 99 05/02/20 09:00 Nasal Cannula 2.0 Nasal Cannula 2.0 Nasal Cannula 2.0 05/02/20 08:00 97.9 60 20 100/40 (60) 100 05/02/20 08:00 60 05/02/20 04:00 60 05/02/20 04:00 98.0 62 24 117/58 (77) 96 05/02/20 00:00 62 05/02/20 00:00 97.9 66 20 133/53 (79) 98 05/01/20 21:00 Nasal Cannula 2.0 Nasal Cannula 2.0 Nasal Cannula 2.0 05/01/20 20:00 62 05/01/20 20:00 98.8 65 20 115/58 (77) 97 05/01/20 19:33 97 Nasal Cannula 2.0 28 05/01/20 18:00 59 111/50 (70) 05/01/20 16:00 97.5 59 18 101/41 (61) 97 05/01/20 16:00 60 05/01/20 15:45 60 77/32 (47) 05/01/20 15:39 60 91/38 (55) 05/01/20 15:30 60 91/41 (58) 05/01/20 15:15 60 129/50 (76) 05/01/20 12:00 97.5 60 20 120/46 (70) 98 05/01/20 12:00 60 I&O Intake and Output 05/01/20 05/02/20 19:00 07:00 Intake Total 1620 ml Output Total 100 ml Balance 1520 ml Intake Oral 120 ml Hemodialysis 1500 ml Emesis 100 ml # Bowel Movements 1 Dressing: dry Wound: clean Cardiovascular: RSR Respiratory: clear Abdomen: soft, non-tender, present bowel sounds Extremities: edema, no tenderness, no cyanosis Laboratory Tests Test 05/01/20 20:13 05/02/20 10:45 05/02/20 11:36 POC Whole Blood Glucose 92 MG/DL (74-106) 77 MG/DL (74-106) White Blood Count 5.1 K/UL (4.8-10.8) Red Blood Count 2.61 M/UL (4.20-5.40) L Hemoglobin 7.7 G/DL (12.0-16.0) L Hematocrit 24.2 % (37.0-47.0) L Mean Corpuscular Volume 93 FL (80-99) Mean Corpuscular Hemoglobin 29.5 PG (27.0-31.0) Mean Corpuscular Hemoglobin Concent 31.8 G/DL (32.0-36.0) L Red Cell Distribution Width 15.3 % (11.6-14.8) H Platelet Count 139 K/UL (150-450) L Mean Platelet Volume 7.4 FL (6.5-10.1) Neutrophils (%) (Auto) % (45.0-75.0) Lymphocytes (%) (Auto) % (20.0-45.0) Monocytes (%) (Auto) % (1.0-10.0) Eosinophils (%) (Auto) % (0.0-3.0) Basophils (%) (Auto) % (0.0-2.0) Differential Total Cells Counted 100 Neutrophils % (Manual) 66 % (45-75) Lymphocytes % (Manual) 19 % (20-45) L Monocytes % (Manual) 10 % (1-10) Eosinophils % (Manual) 5 % (0-3) H Basophils % (Manual) 0 % (0-2) Band Neutrophils 0 % (0-8) Platelet Estimate Decreased L Platelet Morphology Normal Polychromasia 1+ Hypochromasia 1+ Anisocytosis 1+ Sodium Level 133 MMOL/L (136-145) L Potassium Level 3.6 MMOL/L (3.5-5.1) Chloride Level 94 MMOL/L (98-107) L Carbon Dioxide Level 32 MMOL/L (21-32) Anion Gap 7 mmol/L (5-15) Blood Urea Nitrogen 27 mg/dL (7-18) H Creatinine 5.0 MG/DL (0.55-1.30) H Estimat Glomerular Filtration Rate 10.3 mL/min (>60) Glucose Level 84 MG/DL (74-106) Calcium Level 8.5 MG/DL (8.5-10.1) Phosphorus Level 4.1 MG/DL (2.5-4.9) Total Bilirubin 0.4 MG/DL (0.2-1.0) Aspartate Amino Transf (AST/SGOT) 21 U/L (15-37) Alanine Aminotransferase (ALT/SGPT) 13 U/L (12-78) Alkaline Phosphatase 54 U/L (46-116) C-Reactive Protein, Quantitative 5.8 mg/dL (0.00-0.90) H Total Protein 5.6 G/DL (6.4-8.2) L Albumin 2.7 G/DL (3.4-5.0) L Globulin 2.9 g/dL Albumin/Globulin Ratio 0.9 (1.0-2.7) L Random Vancomycin Level 17.4 ug/mL Plan Problems: (1) Diabetic nephropathy (2) Cellulitis of left foot Assessment & Plan: Pt presented on admission with Moisture Intertrigo Bilat Breasts and Abdominal folds. Unstageable Pressure Injury Lateral L heel (L) 2.2cm x (W)2.2cm. Base of wound is 80% soft necrosis,10% slough, remaining 10% monique.Epibole approx 50% borders,50% pink. Small amt Brownish exudate. Wound is malodorous. Loose non-viable tissue removed.Base of wound now 90% slough,10% monique. Odor improved post cleansing. Therahoney applied with small 2x2 packing, covered with ABD pad and wrapped with Kerlix until orders for wound care can be clarified with DPM. Both feet are cold to touch and dusky at distal aspect including metatarsals both feet;dorsum L 3rd metatarsal is black. Dry eschar noted to L 1st metatarsal head(L)1.1cm x (W)1.6cm.Pt complained of pain LLE and L foot to slightest touch or movement R heel is boggy and pale. Moisture Intertrigo skin folds both breasts and abdominal folds. Both areas are malodorous. Cleansed with soap and water and gently dried. Phytoplex Antifungal Powder applied to affected areas. R and L groin are moist and erythematous. Moisture Barrier Paste applied. Darker skin tone with two small indurated areas at Sacrococcygeal area noted. Pt complained site tender when minimally palpated. In close proximity above coccyx at [place] cleft is resolving Pressure injury. [place] epithelial noted. An area of hyperpigmentation with pink epithelial medially noted to L Ischial tuberosity. Hyperpigmentation noted to R Ischium. Tx.Plan: Wash and dry skin folds both breasts and Abdominal folds. Apply Light Dusting of Antifungal powder Twice Daily. Apply Moisture Barrier Paste to Bilat groin and Buttocks with each Incontinence care. Cover Sacrum with Optifoam drsg. Change every 3 days and prn. Apply Cavilon Skin Barrier to bilateral Heel and Malleoli. Cover with Optifoam drsg. Change every 7 days and prn. Reposition at least every 2hours or as tolerated. Off-load heels with pillow. Flow images demonstrate overall asymmetrically increased flow in the right foot, particularly in the region of the calcaneal tuberosity, midfoot and forefoot. There is equivocally slightly increased flow in the left heel. Blood pool images likewise demonstrate increased activity on the right, involving the midfoot and forefoot. Very subtle slightly increased activity is seen in the region of the left calcaneal tuberosity. On the static images, there is very mildly prominent activity in the left calcaneal tuberosity, but this is actually less striking than on the contralateral side. Ill-defined increased activity is seen in the left midfoot and in the right midfoot and forefoot. There is some increased activity in the region of the right metatarsophalangeal joint which is probably degenerative in nature. Impression: No significant abnormality in the left heel to suggest osteomyelitis of the location of clinically described left heel wound. Mild bilateral abnormal uptake, as detailed above, likely reflecting degenerative changes (3) Pacemaker (4) Anemia in chronic kidney disease (CKD) (5) History of CVA (cerebrovascular accident) (6) History of atrial fibrillation (7) ESRD (end stage renal disease) (8) COPD (chronic obstructive pulmonary disease) (9) Bradycardia (10) Diabetic nephropathy (11) Hypertensive kidney disease (12) Volume overload (13) Heel abrasion (14) Elevated troponin I level (15) Urinary tract infection due to Proteus (16) Dyspnea (17) Symptomatic anemia (18) Acute on chronic renal failure (19) Anemia (20) HTN (hypertension) Luis Alberto Cade May 02, 2020 12:00
--- NOTE | 2020-05-02 12:35 | Hematology/Onc Progress Note ---
Assessment/Plan Assessment/Plan Assessment and Recs # Thombocytopenia is likely 2/2 Cellulitis of left foot --> as per id --> abx started vanc --> plt trend 150-->102-->92-->103-->133-->148->135 --> hold anticoag if plt <50 --> abx vanc/cefepime # Anemia is likely due to esrd, has been under care of Dr. Stephenson --> continue hd as needed --> with permacath in place on chest, no infection --> EPOGEN 4k dose 3 times a week started --> hgb trend 12-->9->8.1->7.7 --> as per renal # Hypercoagulable disorder with afib hx --> on eliquis which has been started --> no bleeding noted # ESRD (end stage renal disease) --> per renal care # Diabetic nephropathy --> wound care and endo recs --> a1c goal <8 # Dvt ppx heparin sq DW Rn and appreciate consultation Subjective HEENT: Denies: no symptoms, eye pain, blurred vision, tearing, double vision, ear pain, ear discharge, nose pain, nose congestion, throat pain, throat swelling, mouth pain, mouth swelling, other Cardiovascular: Denies: no symptoms, chest pain, edema, irregular heart rate, lightheadedness, palpitations, syncope, other Respiratory: Denies: no symptoms, cough, shortness of breath, SOB with excertion, SOB at rest, sputum, wheezing, other Genitourinary: Denies: no symptoms, burning, discharge, frequency, flank pain, hematuria, incontinence, pain, urgency, other Neurologic/Psychiatric: Denies: no symptoms, anxiety, depressed, emotional problems, headache, numbness, paresthesia, pre-existing deficit, seizure, tingling, tremors, weakness, other Endocrine: Denies: no symptoms, excessive sweating, flushing, intolerance to cold, intolerance to heat, increased hunger, increased thirst, increased urine, unexplained weight gain, unexplained weight loss, other Hematologic/Lymphatic: Denies: no symptoms, anemia, easy bleeding, easy bruising, adenopathy, other Allergies: Coded Allergies: PENICILLINS (Verified Allergy, Unknown, 04/23/20) Tolerated Cefepime 04/23/20 Subjective 04/26 seen by renal, is for hd tomorrow, labs noted, plts are lower 04/27 labs noted, no bleeding, for hd, hgb currently lower at 9 04/28 meds noted, no bleeding, carlo rn, permcath to dc 04/29 labs still pending, no bleeding, remains forgetful, no bleeding 04/30 no major changes, no bleeding, cbc is noted 05/01 meds reviewed, no bleeding, labs noted, no night sweats 05/02 to undergo hd for tomorrow, no bleeding, labs noted hgb 7.7 Objective Objective Current Medications Medications (Trade) Dose Ordered Sig/Jesus Route PRN Reason Start Time Stop Time Status Last Admin Dose Admin Acetaminophen/ Hydrocodone Bitart ([place] 5/325) 1 tab Q4H PRN ORAL Pain 3-6 04/28/20 19:30 05/04/20 19:29 04/29/20 06:19 Aspirin (ASA) 81 mg DAILY ORAL 04/29/20 09:00 06/08/20 08:59 05/02/20 09:00 Atorvastatin Calcium (Lipitor) 40 mg BEDTIME ORAL 04/28/20 21:00 07/24/20 20:59 05/01/20 20:38 Barium Sulfate (Varibar Honey) 250 ml NOW PRN Radiology Procedure 04/30/20 12:15 05/03/20 12:15 Barium Sulfate (Varibar [place]) 230 ml NOW PRN Radiology Procedure 04/30/20 12:15 05/03/20 12:15 Barium Sulfate (Varibar Pudding) 230 ml NOW PRN Radiology Procedure 04/30/20 12:15 05/03/20 12:15 Chlorhexidine Gluconate (Cira-Hex 2%) 1 applic DAILY@2000 TOPIC 04/28/20 20:00 07/22/20 19:59 05/01/20 20:39 Dextrose (Dextrose 50%) 25 ml Q30M PRN IV Hypoglycemia 04/29/20 23:30 07/28/20 23:29 Dextrose (Dextrose 50%) 50 ml Q30M PRN IV Hypoglycemia 04/29/20 23:30 07/28/20 23:29 Docusate Sodium (Colace) 100 mg THREE TIMES A DAY ORAL 04/29/20 13:00 05/29/20 12:59 05/02/20 09:38 Epoetin Jose (Epoetin Jose(ESRD on dialysis)) 10,000 unit SUN-SUN-SUN SUBQ 04/30/20 21:00 07/27/20 20:59 04/30/20 21:00 Folic Acid (Folate) 1 mg DAILY ORAL 04/29/20 09:00 05/26/20 08:59 05/02/20 09:38 Heparin Sodium (Porcine) (Heparin 5000 units/ml) 5,000 units EVERY 12 HOURS SUBQ 04/28/20 21:00 06/12/20 20:59 05/02/20 09:42 Hydralazine HCl (Apresoline) 25 mg Q4H PRN ORAL For blood pressure over 160 sy 04/28/20 19:45 07/24/20 19:36 Hydromorphone HCl (Dilaudid) 0.5 mg Q4H PRN SUBQ Pain 7-04/28/20 19:45 05/04/20 19:44 Insulin Aspart (NovoLOG) BEFORE MEALS AND HS SUBQ 05/02/20 11:30 07/31/20 11:29 Midodrine (Pro-Amatine) 10 mg THREE TIMES A DAY ORAL 04/29/20 09:00 07/25/20 10:29 05/02/20 09:38 Ondansetron HCl (Zofran) 4 mg Q6H PRN IVP Nausea & Vomiting 04/28/20 19:45 05/25/20 19:37 Pantoprazole (Protonix) 40 mg EVERY 12 HOURS ORAL 04/30/20 21:00 05/30/20 20:59 05/02/20 09:38 Sevelamer Carbonate (Renvela) 800 mg THREE TIMES A DAY ORAL 04/29/20 09:00 07/23/20 08:59 05/02/20 09:38 Vancomycin HCl (Vanco pharmacy to dose) 1 ea DAILY PRN MISC Per rx protocol 04/28/20 19:45 05/28/20 19:44 Vancomycin HCl 750 mg/Sodium Chloride 275 ml @ 183.333 mls/hr ONCE ONCE IVPB 05/02/20 13:00 05/02/20 14:29 Last 24 Hour Vital Signs Date Time Temp Pulse Resp B/P (MAP) Pulse Ox O2 Delivery O2 Flow Rate FiO2 05/02/20 11:55 98.1 60 18 92/32 (52) 99 05/02/20 09:00 Nasal Cannula 2.0 Nasal Cannula 2.0 Nasal Cannula 2.0 05/02/20 08:00 97.9 60 20 100/40 (60) 100 05/02/20 08:00 60 05/02/20 04:00 60 05/02/20 04:00 98.0 62 24 117/58 (77) 96 05/02/20 00:00 62 05/02/20 00:00 97.9 66 20 133/53 (79) 98 05/01/20 21:00 Nasal Cannula 2.0 Nasal Cannula 2.0 Nasal Cannula 2.0 05/01/20 20:00 62 05/01/20 20:00 98.8 65 20 115/58 (77) 97 05/01/20 19:33 97 Nasal Cannula 2.0 28 05/01/20 18:00 59 111/50 (70) 05/01/20 16:00 97.5 59 18 101/41 (61) 97 05/01/20 16:00 60 05/01/20 15:45 60 77/32 (47) 05/01/20 15:39 60 91/38 (55) 05/01/20 15:30 60 91/41 (58) 05/01/20 15:15 60 129/50 (76) 05/01/20 12:00 97.5 60 20 120/46 (70) 98 05/01/20 12:00 60 05/01/20 09:00 Nasal Cannula 2.0 Nasal Cannula 2.0 Nasal Cannula 2.0 05/01/20 08:00 97.7 60 18 123/48 (73) 99 05/01/20 08:00 60 05/01/20 04:00 60 05/01/20 04:00 98.2 60 16 109/49 (69) 100 05/01/20 00:00 60 05/01/20 00:00 98.9 60 16 128/56 (80) 100 04/30/20 21:00 Nasal Cannula 2.0 Nasal Cannula 2.0 Nasal Cannula 2.0 04/30/20 20:00 60 04/30/20 20:00 97.9 60 18 132/55 (80) 100 04/30/20 16:00 97.5 66 18 109/39 (62) 98 04/30/20 16:00 61 04/30/20 14:50 60 20 146/38 (74) 100 04/30/20 14:45 60 20 160/42 (81) 100 04/30/20 14:40 60 16 136/49 (78) 100 04/30/20 14:28 60 16 3.0 Intake and Output 05/01/20 05/02/20 19:00 07:00 Intake Total 1620 ml Output Total 100 ml Balance 1520 ml Intake Oral 120 ml Hemodialysis 1500 ml Emesis 100 ml # Bowel Movements 1 Labs Test 04/29/20 20:51 04/30/20 05:45 04/30/20 06:46 04/30/20 11:58 White Blood Count 5.6 K/UL (4.8-10.8) Red Blood Count 2.69 M/UL (4.20-5.40) Hemoglobin 8.1 G/DL (12.0-16.0) Hematocrit 24.8 % (37.0-47.0) Mean Corpuscular Volume 92 FL (80-99) Mean Corpuscular Hemoglobin 30.1 PG (27.0-31.0) Mean Corpuscular Hemoglobin Concent 32.7 G/DL (32.0-36.0) Red Cell Distribution Width 15.2 % (11.6-14.8) Platelet Count 135 K/UL (150-450) Mean Platelet Volume 7.6 FL (6.5-10.1) Neutrophils (%) (Auto) 59.3 % (45.0-75.0) Lymphocytes (%) (Auto) 20.1 % (20.0-45.0) Monocytes (%) (Auto) 12.2 % (1.0-10.0) Eosinophils (%) (Auto) 5.8 % (0.0-3.0) Basophils (%) (Auto) 2.5 % (0.0-2.0) Prothrombin Time 11.4 SEC (9.30-11.50) Prothromb Time International Ratio 1.0 (0.9-1.1) Activated Partial Thromboplast Time 30 SEC (23-33) Sodium Level 128 MMOL/L (136-145) Potassium Level 4.6 MMOL/L (3.5-5.1) Chloride Level 91 MMOL/L (98-107) Carbon Dioxide Level 29 MMOL/L (21-32) Anion Gap 8 mmol/L (5-15) Blood Urea Nitrogen 49 mg/dL (7-18) Creatinine 7.7 MG/DL (0.55-1.30) Estimat Glomerular Filtration Rate 6.3 mL/min (>60) Glucose Level 119 MG/DL (74-106) Calcium Level 8.6 MG/DL (8.5-10.1) Total Bilirubin 0.4 MG/DL (0.2-1.0) Aspartate Amino Transf (AST/SGOT) 21 U/L (15-37) Alanine Aminotransferase (ALT/SGPT) 18 U/L (12-78) Alkaline Phosphatase 53 U/L (46-116) Total Protein 5.8 G/DL (6.4-8.2) Albumin 2.6 G/DL (3.4-5.0) Globulin 3.2 g/dL Albumin/Globulin Ratio 0.8 (1.0-2.7) POC Whole Blood Glucose 133 MG/DL (74-106) Test 04/30/20 21:17 05/01/20 06:57 05/01/20 11:18 05/01/20 20:13 POC Whole Blood Glucose 93 MG/DL (74-106) 92 MG/DL (74-106) Test 05/02/20 10:45 05/02/20 11:36 White Blood Count 5.1 K/UL (4.8-10.8) Red Blood Count 2.61 M/UL (4.20-5.40) Hemoglobin 7.7 G/DL (12.0-16.0) Hematocrit 24.2 % (37.0-47.0) Mean Corpuscular Volume 93 FL (80-99) Mean Corpuscular Hemoglobin 29.5 PG (27.0-31.0) Mean Corpuscular Hemoglobin Concent 31.8 G/DL (32.0-36.0) Red Cell Distribution Width 15.3 % (11.6-14.8) Platelet Count 139 K/UL (150-450) Mean Platelet Volume 7.4 FL (6.5-10.1) Neutrophils (%) (Auto) % (45.0-75.0) Lymphocytes (%) (Auto) % (20.0-45.0) Monocytes (%) (Auto) % (1.0-10.0) Eosinophils (%) (Auto) % (0.0-3.0) Basophils (%) (Auto) % (0.0-2.0) Differential Total Cells Counted 100 Neutrophils % (Manual) 66 % (45-75) Lymphocytes % (Manual) 19 % (20-45) Monocytes % (Manual) 10 % (1-10) Eosinophils % (Manual) 5 % (0-3) Basophils % (Manual) 0 % (0-2) Band Neutrophils 0 % (0-8) Platelet Estimate Decreased Platelet Morphology Normal Polychromasia 1+ Hypochromasia 1+ Anisocytosis 1+ Sodium Level 133 MMOL/L (136-145) Potassium Level 3.6 MMOL/L (3.5-5.1) Chloride Level 94 MMOL/L (98-107) Carbon Dioxide Level 32 MMOL/L (21-32) Anion Gap 7 mmol/L (5-15) Blood Urea Nitrogen 27 mg/dL (7-18) Creatinine 5.0 MG/DL (0.55-1.30) Estimat Glomerular Filtration Rate 10.3 mL/min (>60) Glucose Level 84 MG/DL (74-106) Calcium Level 8.5 MG/DL (8.5-10.1) Phosphorus Level 4.1 MG/DL (2.5-4.9) Total Bilirubin 0.4 MG/DL (0.2-1.0) Aspartate Amino Transf (AST/SGOT) 21 U/L (15-37) Alanine Aminotransferase (ALT/SGPT) 13 U/L (12-78) Alkaline Phosphatase 54 U/L (46-116) C-Reactive Protein, Quantitative 5.8 mg/dL (0.00-0.90) Total Protein 5.6 G/DL (6.4-8.2) Albumin 2.7 G/DL (3.4-5.0) Globulin 2.9 g/dL Albumin/Globulin Ratio 0.9 (1.0-2.7) Random Vancomycin Level 17.4 ug/mL POC Whole Blood Glucose 77 MG/DL (74-106) Height (Feet): 5 Height (Inches): 5.00 Weight (Pounds): 263 Objective Physical Exam Vitals: reviewed Gen: no apparent distress, alert, non-toxic, obese, Chronically Ill HEENT: hearing grossly normal, normal voice Neck: full range of motion Resp: chest non-tender, lungs clear, normal breath sounds, no respiratory distress, permacath left side Cardiovascular: regular rate, rhythm, no edema, other - slow cap refill time of lower extremities bilaterally GI: normal bowel sounds, non tender, soft Msk: normal range of motion, non-tender, other - PT. wheel chair bound Neuro: alert, oriented x3, responsive, speech normal, sensory deficit Psychiatric: judgement/insight normal Skin: Decubitus/Ulcer - 2cm in diameter with a deeper necrotic 0.6cm center. erythema- pressure sore on tailbone. no skin break down Husam Byers MD May 02, 2020 12:35
--- NOTE | 2020-05-02 12:45 | Pulmonology Progress Note ---
Subjective ROS Limited/Unobtainable: No Constitutional: Denies: no symptoms, fever, chills, fatigue, anorexia, drenching sweats, other HEENT: Repors: no symptoms Respiratory: Reports: no symptoms Cardiovascular: Reports: no symptoms Allergies: Coded Allergies: PENICILLINS (Verified Allergy, Unknown, 04/23/20) Tolerated Cefepime 04/23/20 Objective Last 24 Hour Vital Signs Date Time Temp Pulse Resp B/P (MAP) Pulse Ox O2 Delivery O2 Flow Rate FiO2 05/02/20 11:55 98.1 60 18 92/32 (52) 99 05/02/20 09:00 Nasal Cannula 2.0 Nasal Cannula 2.0 Nasal Cannula 2.0 05/02/20 08:00 97.9 60 20 100/40 (60) 100 05/02/20 08:00 60 05/02/20 04:00 60 05/02/20 04:00 98.0 62 24 117/58 (77) 96 05/02/20 00:00 62 05/02/20 00:00 97.9 66 20 133/53 (79) 98 05/01/20 21:00 Nasal Cannula 2.0 Nasal Cannula 2.0 Nasal Cannula 2.0 05/01/20 20:00 62 05/01/20 20:00 98.8 65 20 115/58 (77) 97 05/01/20 19:33 97 Nasal Cannula 2.0 28 05/01/20 18:00 59 111/50 (70) 05/01/20 16:00 97.5 59 18 101/41 (61) 97 05/01/20 16:00 60 05/01/20 15:45 60 77/32 (47) 05/01/20 15:39 60 91/38 (55) 05/01/20 15:30 60 91/41 (58) 05/01/20 15:15 60 129/50 (76) Intake and Output 05/01/20 05/02/20 19:00 07:00 Intake Total 1620 ml Output Total 100 ml Balance 1520 ml Intake Oral 120 ml Hemodialysis 1500 ml Emesis 100 ml # Bowel Movements 1 General Appearance: no acute distress HEENT: normocephalic Respiratory: chest wall non-tender Cardiovascular: normal peripheral pulses Abdomen: soft, non tender Laboratory Tests 05/01/20 20:13: POC Whole Blood Glucose 92 05/02/20 10:45: White Blood Count 5.1, Red Blood Count 2.61L, Hemoglobin 7.7L, Hematocrit 24.2L , Mean Corpuscular Volume 93, Mean Corpuscular Hemoglobin 29.5, Mean Corpuscular Hemoglobin Concent 31.8L, Red Cell Distribution Width 15.3H, Platelet Count 139L, Mean Platelet Volume 7.4, Neutrophils (%) (Auto) , Lymphocytes (%) (Auto) , Monocytes (%) (Auto) , Eosinophils (%) (Auto) , Basophils (%) (Auto) , Differential Total Cells Counted 100, Neutrophils % ( Manual) 66, Lymphocytes % (Manual) 19L, Monocytes % (Manual) 10, Eosinophils % ( Manual) 5H, Basophils % (Manual) 0, Band Neutrophils 0, Platelet Estimate DecreasedL, Platelet Morphology Normal, Polychromasia 1+, Hypochromasia 1+, Anisocytosis 1+, Sodium Level 133L, Potassium Level 3.6, Chloride Level 94L, Carbon Dioxide Level 32, Anion Gap 7, Blood Urea Nitrogen 27H, Creatinine 5.0H, Estimat Glomerular Filtration Rate 10.3, Glucose Level 84, Calcium Level 8.5, Phosphorus Level 4.1, Total Bilirubin 0.4, Aspartate Amino Transf (AST/SGOT) 21 , Alanine Aminotransferase (ALT/SGPT) 13, Alkaline Phosphatase 54, C-Reactive Protein, Quantitative 5.8H, Total Protein 5.6L, Albumin 2.7L, Globulin 2.9, Albumin/Globulin Ratio 0.9L, Random Vancomycin Level 17.4 05/02/20 11:36: POC Whole Blood Glucose 77 Current Medications Medications (Trade) Dose Ordered Sig/Jesus Route PRN Reason Start Time Stop Time Status Last Admin Dose Admin Acetaminophen/ Hydrocodone Bitart ([place] 5/325) 1 tab Q4H PRN ORAL Pain 3-6 04/28/20 19:30 05/04/20 19:29 04/29/20 06:19 Aspirin (ASA) 81 mg DAILY ORAL 04/29/20 09:00 06/08/20 08:59 05/02/20 09:00 Atorvastatin Calcium (Lipitor) 40 mg BEDTIME ORAL 04/28/20 21:00 07/24/20 20:59 05/01/20 20:38 Barium Sulfate (Varibar Honey) 250 ml NOW PRN Radiology Procedure 04/30/20 12:15 05/03/20 12:15 Barium Sulfate (Varibar [place]) 230 ml NOW PRN Radiology Procedure 04/30/20 12:15 05/03/20 12:15 Barium Sulfate (Varibar Pudding) 230 ml NOW PRN Radiology Procedure 04/30/20 12:15 05/03/20 12:15 Chlorhexidine Gluconate (Cira-Hex 2%) 1 applic DAILY@2000 TOPIC 04/28/20 20:00 07/22/20 19:59 05/01/20 20:39 Dextrose (Dextrose 50%) 25 ml Q30M PRN IV Hypoglycemia 04/29/20 23:30 07/28/20 23:29 Dextrose (Dextrose 50%) 50 ml Q30M PRN IV Hypoglycemia 04/29/20 23:30 07/28/20 23:29 Docusate Sodium (Colace) 100 mg THREE TIMES A DAY ORAL 04/29/20 13:00 05/29/20 12:59 05/02/20 12:37 Epoetin Jose (Epoetin Jose(ESRD on dialysis)) 10,000 unit SUN-SUN-SUN SUBQ 04/30/20 21:00 07/27/20 20:59 04/30/20 21:00 Folic Acid (Folate) 1 mg DAILY ORAL 04/29/20 09:00 05/26/20 08:59 05/02/20 09:38 Heparin Sodium (Porcine) (Heparin 5000 units/ml) 5,000 units EVERY 12 HOURS SUBQ 04/28/20 21:00 06/12/20 20:59 05/02/20 09:42 Hydralazine HCl (Apresoline) 25 mg Q4H PRN ORAL For blood pressure over 160 sy 04/28/20 19:45 07/24/20 19:36 Hydromorphone HCl (Dilaudid) 0.5 mg Q4H PRN SUBQ Pain 7-04/28/20 19:45 05/04/20 19:44 Insulin Aspart (NovoLOG) BEFORE MEALS AND HS SUBQ 05/02/20 11:30 07/31/20 11:29 Midodrine (Pro-Amatine) 10 mg THREE TIMES A DAY ORAL 04/29/20 09:00 07/25/20 10:29 05/02/20 12:37 Ondansetron HCl (Zofran) 4 mg Q6H PRN IVP Nausea & Vomiting 04/28/20 19:45 05/25/20 19:37 Pantoprazole (Protonix) 40 mg EVERY 12 HOURS ORAL 04/30/20 21:00 05/30/20 20:59 05/02/20 09:38 Sevelamer Carbonate (Renvela) 800 mg THREE TIMES A DAY ORAL 04/29/20 09:00 07/23/20 08:59 05/02/20 12:37 Vancomycin HCl (Vanco pharmacy to dose) 1 ea DAILY PRN MISC Per rx protocol 04/28/20 19:45 05/28/20 19:44 Vancomycin HCl 750 mg/Sodium Chloride 275 ml @ 183.333 mls/hr ONCE ONCE IVPB 05/02/20 13:00 05/02/20 14:29 Assessment/Plan Assessment/Plan Pulmonary Progress Note Patient with end-stage renal disease, HTN, Previous CVA, recent pulmonary edema , out of ICU Has decubitus wound, paroxysmal atrial fibrillation, diabetes type 2, hyperlipidemia, dementia. Subjective ROS Limited/Unobtainable: No Constitutional: Reports: no symptoms HEENT: Repors: no symptoms Respiratory: Reports: no symptoms Cardiovascular: Reports: no symptoms Allergies: Coded Allergies: PENICILLINS (Verified Allergy, Unknown, 04/23/20) Tolerated Cefepime 04/23/20 Objective Vital Signs Noted General Appearance: no acute distress HEENT: normocephalic Respiratory: chest wall non-tender Cardiovascular: normal peripheral pulses Abdomen: soft, non tender Laboratory Tests Noted Assessment/Plan ASSESSMENT: 1. Mild pulmonary edema 2. Decubitus wound, 3. End-stage renal disease, on temporary PermCath hemodialysis access. 2. Paroxysmal atrial fibrillation, 3. Diabetes type 2. 4. Hypertension. 5. Hyperlipidemia. 6. CVA-history. 7. Dementia. PLAN: Hemodialysis per Renal Continue local wound care Oxygen PRN, pulmonary hygiene Broad spectrum AB Benjamín Jane MD May 02, 2020 12:45
[2020-05-02] MEDS ORDERED: Vancomycin 750mg/NS 275ml IVPB ONE ×2 (13:00)
--- NOTE | 2020-05-02 14:57 | NUR ---
NURSES NOTE Pt started on 1 PRBC and monitoried for first 15minutes. Pt in stable condition and VS stable. No adverse reaction. Will continue to monitor.
--- NOTE | 2020-05-02 17:07 | NUR ---
NURSES NOTES Vanco IV ATB given late due to PRBC's given prior and priority.
--- NOTE | 2020-05-02 19:06 | Consultation ---
History of Present Illness General Date patient seen: May 02, 2020 Time patient seen: 09:30 Chief Complaint: Lower Extremity Injury Referring physician: Dr. Banegas Reason for Consultation: L heel ulceration. Present Illness HPI Pt seen bedside for L heel ulceration. Pt resting at bedside, relates worsening pain to L heel. Denies any acute SOI. Allergies: Coded Allergies: PENICILLINS (Verified Allergy, Unknown, 04/23/20) Tolerated Cefepime 04/23/20 Medication History Scheduled Amino Acids/Protein Hydrolys (Pro-Stat Liquid), 30 ML ORAL TWICE A DAY, ( Reported) Amiodarone Hcl* (Pacerone*), 200 MG ORAL DAILY Apixaban (Eliquis), 2.5 MG ORAL BID Aspirin* (Aspirin*), 81 MG ORAL DAILY Atorvastatin Calcium* (Atorvastatin Calcium*), 10 MG ORAL BEDTIME, (Reported) Cholecalciferol (Vitamin D3) (Vitamin D-400*), 400 UNITS ORAL DAILY, (Reported) Docusate Sodium* (Docusate Sodium*), 100 MG ORAL TWICE A DAY, (Reported) Ferrous Sulfate* (Ferrous Sulfate*), 325 MG ORAL DAILY, (Reported) Gabapentin* (Gabapentin*), 100 MG ORAL Q12HR, (Reported) Gabapentin* (Gabapentin*), 300 MG ORAL THREE TIMES A DAY, (Reported) Hydralazine Hcl* (Hydralazine Hcl*), 25 MG ORAL EVERY 8 HOURS, (Reported) Sevelamer Carbonate* (Renvela*), 800 MG ORAL THREE TIMES A DAY, (Reported) Vitamin B Complex (Vitamin B Complex), 1 EACH PO DAILY, (Reported) [Nephro Aide], 1 TAB PO DAILY, (Reported) Scheduled PRN Acetaminophen* (Acetaminophen 325MG Tablet*), 650 MG ORAL Q4H PRN for For Pain, (Reported) Albuterol Sulfate* (Albuterol Sulfate Hhn*), 3 ML INH Q6H PRN for wheezing, ( Reported) Bisacodyl (Bisacodyl), 10 MG RC EVERY DAY PRN for Constipation, (Reported) Hydrocodone Bit/Acetaminophen 5-325* ([place] 5-325*), 1 TAB ORAL Q4H PRN for For Pain, (Reported) Na Phos,M-B/Na Phos,Di-Ba* (Fleet Enema*), 133 ML RECTAL DAILY PRN for Constipation, (Reported) [Vanco pharmacy to dose], 1 EA MISC DAILY PRN Miscellaneous Medications Dextran 70/Hypromellose (Artificial Tears Eye Drops*), 1 DROP BOTH EYES, ( Reported) Patient History Healthcare decision maker Resuscitation status Advanced Directive on File Physical Exam Physical Exam Narrative Focused LLE Exam: Derm: L foot plantar lateral heel ulceration noted. Ulceration noted down to muscle. Negative purulent drainage. (+) POP. Vasc: 1/4 DP/PT pulses. Neuro: SILT diminished. MSK: MS/ROM deferred secondary to pain. Last 24 Hour Vital Signs Date Time Temp Pulse Resp B/P (MAP) Pulse Ox O2 Delivery O2 Flow Rate FiO2 05/02/20 16:00 97.9 60 18 105/41 (62) 97 05/02/20 16:00 60 05/02/20 12:00 60 05/02/20 11:55 98.1 60 18 92/32 (52) 99 05/02/20 09:00 Nasal Cannula 2.0 Nasal Cannula 2.0 Nasal Cannula 2.0 05/02/20 08:00 97.9 60 20 100/40 (60) 100 05/02/20 08:00 60 05/02/20 04:00 60 05/02/20 04:00 98.0 62 24 117/58 (77) 96 05/02/20 00:00 62 05/02/20 00:00 97.9 66 20 133/53 (79) 98 05/01/20 21:00 Nasal Cannula 2.0 Nasal Cannula 2.0 Nasal Cannula 2.0 05/01/20 20:00 62 05/01/20 20:00 98.8 65 20 115/58 (77) 97 05/01/20 19:33 97 Nasal Cannula 2.0 28 Intake and Output 05/01/20 05/02/20 19:00 07:00 Intake Total 1620 ml Output Total 100 ml Balance 1520 ml Intake Oral 120 ml Hemodialysis 1500 ml Emesis 100 ml # Bowel Movements 1 Laboratory Tests Test 05/01/20 20:13 05/02/20 10:45 05/02/20 11:36 05/02/20 17:11 POC Whole Blood Glucose 92 MG/DL (74-106) 77 MG/DL (74-106) 163 MG/DL (74-106) H White Blood Count 5.1 K/UL (4.8-10.8) Red Blood Count 2.61 M/UL (4.20-5.40) L Hemoglobin 7.7 G/DL (12.0-16.0) L Hematocrit 24.2 % (37.0-47.0) L Mean Corpuscular Volume 93 FL (80-99) Mean Corpuscular Hemoglobin 29.5 PG (27.0-31.0) Mean Corpuscular Hemoglobin Concent 31.8 G/DL (32.0-36.0) L Red Cell Distribution Width 15.3 % (11.6-14.8) H Platelet Count 139 K/UL (150-450) L Mean Platelet Volume 7.4 FL (6.5-10.1) Neutrophils (%) (Auto) % (45.0-75.0) Lymphocytes (%) (Auto) % (20.0-45.0) Monocytes (%) (Auto) % (1.0-10.0) Eosinophils (%) (Auto) % (0.0-3.0) Basophils (%) (Auto) % (0.0-2.0) Differential Total Cells Counted 100 Neutrophils % (Manual) 66 % (45-75) Lymphocytes % (Manual) 19 % (20-45) L Monocytes % (Manual) 10 % (1-10) Eosinophils % (Manual) 5 % (0-3) H Basophils % (Manual) 0 % (0-2) Band Neutrophils 0 % (0-8) Platelet Estimate Decreased L Platelet Morphology Normal Polychromasia 1+ Hypochromasia 1+ Anisocytosis 1+ Sodium Level 133 MMOL/L (136-145) L Potassium Level 3.6 MMOL/L (3.5-5.1) Chloride Level 94 MMOL/L (98-107) L Carbon Dioxide Level 32 MMOL/L (21-32) Anion Gap 7 mmol/L (5-15) Blood Urea Nitrogen 27 mg/dL (7-18) H Creatinine 5.0 MG/DL (0.55-1.30) H Estimat Glomerular Filtration Rate 10.3 mL/min (>60) Glucose Level 84 MG/DL (74-106) Calcium Level 8.5 MG/DL (8.5-10.1) Phosphorus Level 4.1 MG/DL (2.5-4.9) Total Bilirubin 0.4 MG/DL (0.2-1.0) Aspartate Amino Transf (AST/SGOT) 21 U/L (15-37) Alanine Aminotransferase (ALT/SGPT) 13 U/L (12-78) Alkaline Phosphatase 54 U/L (46-116) C-Reactive Protein, Quantitative 5.8 mg/dL (0.00-0.90) H Total Protein 5.6 G/DL (6.4-8.2) L Albumin 2.7 G/DL (3.4-5.0) L Globulin 2.9 g/dL Albumin/Globulin Ratio 0.9 (1.0-2.7) L Random Vancomycin Level 17.4 ug/mL Height (Feet): 5 Height (Inches): 5.00 Weight (Pounds): 263 Medications Current Medications Medications (Trade) Dose Ordered Sig/Jesus Route PRN Reason Start Time Stop Time Status Last Admin Dose Admin Acetaminophen/ Hydrocodone Bitart ([place] 5/325) 1 tab Q4H PRN ORAL Pain 3-6 04/28/20 19:30 05/04/20 19:29 04/29/20 06:19 Aspirin (ASA) 81 mg DAILY ORAL 04/29/20 09:00 06/08/20 08:59 05/02/20 09:00 Atorvastatin Calcium (Lipitor) 40 mg BEDTIME ORAL 04/28/20 21:00 07/24/20 20:59 05/01/20 20:38 Barium Sulfate (Varibar Honey) 250 ml NOW PRN Radiology Procedure 04/30/20 12:15 05/03/20 12:15 Barium Sulfate (Varibar [place]) 230 ml NOW PRN Radiology Procedure 04/30/20 12:15 05/03/20 12:15 Barium Sulfate (Varibar Pudding) 230 ml NOW PRN Radiology Procedure 04/30/20 12:15 05/03/20 12:15 Chlorhexidine Gluconate (Cira-Hex 2%) 1 applic DAILY@1999 TOPIC 04/28/20 20:00 07/22/20 19:59 05/01/20 20:39 Dextrose (Dextrose 50%) 25 ml Q30M PRN IV Hypoglycemia 04/29/20 23:30 07/28/20 23:29 Dextrose (Dextrose 50%) 50 ml Q30M PRN IV Hypoglycemia 04/29/20 23:30 07/28/20 23:29 Docusate Sodium (Colace) 100 mg THREE TIMES A DAY ORAL 04/29/20 13:00 05/29/20 12:59 05/02/20 17:24 Epoetin Jose (Epoetin Jose(ESRD on dialysis)) 10,000 unit SUN-SUN-SUN SUBQ 04/30/20 21:00 07/27/20 20:59 04/30/20 21:00 Folic Acid (Folate) 1 mg DAILY ORAL 04/29/20 09:00 05/26/20 08:59 05/02/20 09:38 Heparin Sodium (Porcine) (Heparin 5000 units/ml) 5,000 units EVERY 12 HOURS SUBQ 04/28/20 21:00 06/12/20 20:59 05/02/20 09:42 Hydralazine HCl (Apresoline) 25 mg Q4H PRN ORAL For blood pressure over 160 sy 04/28/20 19:45 07/24/20 19:36 Hydromorphone HCl (Dilaudid) 0.5 mg Q4H PRN SUBQ Pain 7-10 04/28/20 19:45 05/04/20 19:44 Insulin Aspart (NovoLOG) BEFORE MEALS AND HS SUBQ 05/02/20 11:30 07/31/20 11:29 Midodrine (Pro-Amatine) 10 mg THREE TIMES A DAY ORAL 04/29/20 09:00 07/25/20 10:29 05/02/20 17:24 Ondansetron HCl (Zofran) 4 mg Q6H PRN IVP Nausea & Vomiting 04/28/20 19:45 05/25/20 19:37 Pantoprazole (Protonix) 40 mg EVERY 12 HOURS ORAL 04/30/20 21:00 05/30/20 20:59 05/02/20 09:38 Sevelamer Carbonate (Renvela) 800 mg THREE TIMES A DAY ORAL 04/29/20 09:00 07/23/20 08:59 05/02/20 17:24 Vancomycin HCl (Vanco pharmacy to dose) 1 ea DAILY PRN MISC Per rx protocol 04/28/20 19:45 05/28/20 19:44 Assessment/Plan Assessment/Plan: A: L heel ulceration DM CVA P: - Pt seen and evaluated. - Discuss findings with patient. - Bone Scan noted to LLE, no definitive evidence of OM. - Arterial U/S L/E , monophasic waveforms noted. Will follow vasc recs. - Daily betadine dressing L heel. - Off-loading measures to B/L L/E. - No acute surgical intervention at this time. - Cont IV ABx. - Cont tx per specialist. - Podiatry will cont to monitor. Cosme Reese DPM May 02, 2020 19:06
--- NOTE | 2020-05-02 19:22 | NUR ---
HAND OFF: Report given to VIKAS Gambino. Pt is in stable condition. Plan of care endorsed.
--- NOTE | 2020-05-02 19:42 | NUR ---
NURSE NOTES: Patient received from Sheyla BEAN. Patient in stable condition. Confused at the moment but reoriented. Alert and oriented x1. No s/s of acute distress. IV site at Right AC patent and intact. Side rails up x3. Bed in lowest position and locked. Heels offloaded. Call light and bedside table within reach. Will continue plan of care.
[2020-05-02] MEDS: Dyna-Hex 2% Top Sol 2oz TOPIC SCH (20:17)
[2020-05-02] MEDS: Atorvastatin 20mg tab ORAL SCH (20:18)
--- NOTE | 2020-05-02 21:41 | NUR ---
NURSE NOTES: Patient's temperature is at 101.5. No PRN medication for fever. Ice packs given. Notified Primary MD and ID MD for orders. Awaiting call back.
--- NOTE | 2020-05-02 22:07 | NUR ---
NURSE NOTES: Primary MD called back and ordered for blood culture x2 and tylenol 500mg QID PRN. Orders verified and carried out. ID doctor ordered for Meropenem once daily and CXR, CBC, and CMP for am but already scheduled for it. Orders verified and carried out.
[2020-05-02] MEDS ORDERED: Acetaminophen 500mg (ES) tab ORAL PRN (22:19)
--- NOTE | 2020-05-02 23:14 | NUR ---
NURSE NOTES: Patient's temp now at 98.8.
[2020-05-02] MEDS: Meropenem 500 MG in NS 55 ML IVPB SCH (23:39)
--- NOTE | 2020-05-02 23:53 | Cardiology Progress Note ---
Assessment/Plan Assessment/Plan 1. Hypotension, resolved, likely caused by gram + bacteremia, 2D echo shows normal LV systolic function. 2. Slight elevation of troponin I level due to hypotension/shock. Continue ASA and atorvastatin. 3. Paroxysmal atrial fibrillation. Continue amiodarone and apixaban. 4. History of CVA with left hemiparesis. 5. Hypoxic hypercarbic respiratory failure. 6. Dual chamber pacemaker, atrial paced, ventricular sensed. Subjective Subjective Atrial paced ventricular sensed at rate of 60. On NC oxygen. Objective Last 24 Hour Vital Signs Date Time Temp Pulse Resp B/P (MAP) Pulse Ox O2 Delivery O2 Flow Rate FiO2 05/02/20 23:03 98.8 05/02/20 21:00 Nasal Cannula 2.0 Nasal Cannula 2.0 Nasal Cannula 2.0 05/02/20 20:00 101.5 60 20 106/42 (63) 98 05/02/20 20:00 60 05/02/20 16:00 97.9 60 18 105/41 (62) 97 05/02/20 16:00 60 05/02/20 12:00 60 05/02/20 11:55 98.1 60 18 92/32 (52) 99 05/02/20 09:00 Nasal Cannula 2.0 Nasal Cannula 2.0 Nasal Cannula 2.0 05/02/20 08:00 97.9 60 20 100/40 (60) 100 05/02/20 08:00 60 05/02/20 04:00 60 05/02/20 04:00 98.0 62 24 117/58 (77) 96 05/02/20 00:00 62 05/02/20 00:00 97.9 66 20 133/53 (79) 98 Intake and Output 05/01/20 05/02/20 19:00 07:00 Intake Total 1620 ml Output Total 100 ml Balance 1520 ml Intake Oral 120 ml Hemodialysis 1500 ml Emesis 100 ml # Bowel Movements 1 2D Echo: LVEF 60%, JENY, Severe [place], RVSP 61 mmHg Laboratory Tests Test 05/02/20 10:45 05/02/20 11:36 05/02/20 17:11 White Blood Count 5.1 K/UL (4.8-10.8) Red Blood Count 2.61 M/UL (4.20-5.40) L Hemoglobin 7.7 G/DL (12.0-16.0) L Hematocrit 24.2 % (37.0-47.0) L Mean Corpuscular Volume 93 FL (80-99) Mean Corpuscular Hemoglobin 29.5 PG (27.0-31.0) Mean Corpuscular Hemoglobin Concent 31.8 G/DL (32.0-36.0) L Red Cell Distribution Width 15.3 % (11.6-14.8) H Platelet Count 139 K/UL (150-450) L Mean Platelet Volume 7.4 FL (6.5-10.1) Neutrophils (%) (Auto) % (45.0-75.0) Lymphocytes (%) (Auto) % (20.0-45.0) Monocytes (%) (Auto) % (1.0-10.0) Eosinophils (%) (Auto) % (0.0-3.0) Basophils (%) (Auto) % (0.0-2.0) Differential Total Cells Counted 100 Neutrophils % (Manual) 66 % (45-75) Lymphocytes % (Manual) 19 % (20-45) L Monocytes % (Manual) 10 % (1-10) Eosinophils % (Manual) 5 % (0-3) H Basophils % (Manual) 0 % (0-2) Band Neutrophils 0 % (0-8) Platelet Estimate Decreased L Platelet Morphology Normal Polychromasia 1+ Hypochromasia 1+ Anisocytosis 1+ Sodium Level 133 MMOL/L (136-145) L Potassium Level 3.6 MMOL/L (3.5-5.1) Chloride Level 94 MMOL/L (98-107) L Carbon Dioxide Level 32 MMOL/L (21-32) Anion Gap 7 mmol/L (5-15) Blood Urea Nitrogen 27 mg/dL (7-18) H Creatinine 5.0 MG/DL (0.55-1.30) H Estimat Glomerular Filtration Rate 10.3 mL/min (>60) Glucose Level 84 MG/DL (74-106) Calcium Level 8.5 MG/DL (8.5-10.1) Phosphorus Level 4.1 MG/DL (2.5-4.9) Total Bilirubin 0.4 MG/DL (0.2-1.0) Aspartate Amino Transf (AST/SGOT) 21 U/L (15-37) Alanine Aminotransferase (ALT/SGPT) 13 U/L (12-78) Alkaline Phosphatase 54 U/L (46-116) C-Reactive Protein, Quantitative 5.8 mg/dL (0.00-0.90) H Total Protein 5.6 G/DL (6.4-8.2) L Albumin 2.7 G/DL (3.4-5.0) L Globulin 2.9 g/dL Albumin/Globulin Ratio 0.9 (1.0-2.7) L Random Vancomycin Level 17.4 ug/mL POC Whole Blood Glucose 77 MG/DL (74-106) 163 MG/DL (74-106) H Objective HEENT: Atraumatic, normocephalic. Anicteric. Pupils are equal, round, and reactive to light and accommodation. Extraocular muscles intact. NECK: JVP cannot be assessed. No carotid bruit. Carotid upstroke is 2+ bilaterally. CARDIOVASCULAR: Normal S1, S2. There is 2/6 mid systolic murmur at the left sternal border. PMI is at fourth intercostal space at the midclavicular line, + pacemaker pocket left side. LUNGS: Bibasilar crackles. ABDOMEN: Soft, nontender, and nondistended. No hepatosplenomegaly. Positive bowel sounds. EXTREMITIES: Diminished dorsalis pedis pulses of 1+. There is diminished motor function on the left lower extremity and upper extremity. Triston Joy MD May 02, 2020 23:53
[2020-05-03 04:00] VITALS: BP 118/43
[2020-05-03] MEDS: NovoLOG Insulin Flexpen SUBQ SCH ×4 (06:28→20:49)
--- NOTE | 2020-05-03 07:30 | NUR ---
HAND-OFF: Report given to Kaya BEAN. Patient in stable condition. Endorsed plan of care.
[2020-05-03 07:32] LABS: BASOPHILS % (AUTO) 2.3 % (0.0-2.0); EOSINOPHILS % (AUTO) 5.7 % (0.0-3.0); HEMATOCRIT 27.6 % (37.0-47.0); HEMOGLOBIN 8.8 G/DL (12.0-16.0); LYMPHOCYTES % (AUTO) 16.8 % (20.0-45.0); MEAN CORPUSCULAR VOLUME 94 FL (80-99); MONOCYTES % (AUTO) 13.3 % (1.0-10.0); NEUTROPHILS % (AUTO) 61.9 % (45.0-75.0); PLATELET COUNT 164 K/UL (150-450); RED BLOOD COUNT 2.93 M/UL (4.20-5.40); RED CELL DISTRIBUTION WIDTH 15.3 % (11.6-14.8); WHITE BLOOD COUNT 7.2 K/UL (4.8-10.8)
--- NOTE | 2020-05-03 07:56 | NUR ---
NURSE NOTES: Received report from Cecile BEAN. Pt in semifowler sleeping, breakfast tray is set up for her. Bed in lowest position and locked. Call light within reach.
[2020-05-03 08:00] VITALS: BP 100/29
[2020-05-03 08:04] LABS: ALANINE AMINOTRANSFERASE 16 U/L (12-78); ALBUMIN 2.8 G/DL (3.4-5.0); ALBUMIN/GLOBULIN RATIO 0.9 (1.0-2.7); ALKALINE PHOSPHATASE 59 U/L (46-116); ANION GAP 8 mmol/L (5-15); ASPARTATE AMINO TRANSFERASE 23 U/L (15-37); BILIRUBIN,TOTAL 0.5 MG/DL (0.2-1.0); BLOOD UREA NITROGEN 35 mg/dL (7-18); CALCIUM 8.4 MG/DL (8.5-10.1); CARBON DIOXIDE 31 MMOL/L (21-32); CHLORIDE 94 MMOL/L (98-107); CREATININE 5.9 MG/DL (0.55-1.30); PHOSPHORUS 3.6 MG/DL (2.5-4.9); POTASSIUM 3.6 MMOL/L (3.5-5.1); SODIUM 133 MMOL/L (136-145)
--- NOTE | 2020-05-03 08:30 | Pulmonology Progress Note ---
Subjective ROS Limited/Unobtainable: No Interval Events: None new Constitutional: Denies: no symptoms, fever, chills, fatigue, anorexia, drenching sweats, other HEENT: Repors: no symptoms Respiratory: Reports: no symptoms Cardiovascular: Reports: no symptoms Allergies: Coded Allergies: PENICILLINS (Verified Allergy, Unknown, 04/23/20) Tolerated Cefepime 04/23/20 Objective Last 24 Hour Vital Signs Date Time Temp Pulse Resp B/P (MAP) Pulse Ox O2 Delivery O2 Flow Rate FiO2 05/03/20 08:00 98.0 55 18 100/29 (52) 99 05/03/20 04:00 97.7 60 20 118/43 (68) 98 05/03/20 04:00 60 05/02/20 23:54 99.0 60 20 134/47 (76) 100 05/02/20 23:53 60 05/02/20 23:03 98.8 05/02/20 21:00 Nasal Cannula 2.0 Nasal Cannula 2.0 Nasal Cannula 2.0 05/02/20 20:00 101.5 60 20 106/42 (63) 98 05/02/20 20:00 60 05/02/20 16:00 97.9 60 18 105/41 (62) 97 05/02/20 16:00 60 05/02/20 12:00 60 05/02/20 11:55 98.1 60 18 92/32 (52) 99 05/02/20 09:00 Nasal Cannula 2.0 Nasal Cannula 2.0 Nasal Cannula 2.0 Intake and Output 05/02/20 05/03/20 19:00 07:00 Intake Total 600 ml 120 ml Balance 600 ml 120 ml Intake Oral 600 ml Other 120 ml # Bowel Movements 1 General Appearance: no acute distress HEENT: normocephalic Respiratory: chest wall non-tender Cardiovascular: normal peripheral pulses Abdomen: soft, non tender Laboratory Tests 05/02/20 10:45: White Blood Count 5.1, Red Blood Count 2.61L, Hemoglobin 7.7L, Hematocrit 24.2L , Mean Corpuscular Volume 93, Mean Corpuscular Hemoglobin 29.5, Mean Corpuscular Hemoglobin Concent 31.8L, Red Cell Distribution Width 15.3H, Platelet Count 139L, Mean Platelet Volume 7.4, Neutrophils (%) (Auto) , Lymphocytes (%) (Auto) , Monocytes (%) (Auto) , Eosinophils (%) (Auto) , Basophils (%) (Auto) , Differential Total Cells Counted 100, Neutrophils % ( Manual) 66, Lymphocytes % (Manual) 19L, Monocytes % (Manual) 10, Eosinophils % ( Manual) 5H, Basophils % (Manual) 0, Band Neutrophils 0, Platelet Estimate DecreasedL, Platelet Morphology Normal, Polychromasia 1+, Hypochromasia 1+, Anisocytosis 1+, Sodium Level 133L, Potassium Level 3.6, Chloride Level 94L, Carbon Dioxide Level 32, Anion Gap 7, Blood Urea Nitrogen 27H, Creatinine 5.0H, Estimat Glomerular Filtration Rate 10.3, Glucose Level 84, Calcium Level 8.5, Phosphorus Level 4.1, Total Bilirubin 0.4, Aspartate Amino Transf (AST/SGOT) 21 , Alanine Aminotransferase (ALT/SGPT) 13, Alkaline Phosphatase 54, C-Reactive Protein, Quantitative 5.8H, Total Protein 5.6L, Albumin 2.7L, Globulin 2.9, Albumin/Globulin Ratio 0.9L, Random Vancomycin Level 17.4 05/02/20 11:36: POC Whole Blood Glucose 77 05/02/20 17:11: POC Whole Blood Glucose 163H 05/03/20 07:00: White Blood Count 7.2, Red Blood Count 2.93L, Hemoglobin 8.8L, Hematocrit 27.6L , Mean Corpuscular Volume 94, Mean Corpuscular Hemoglobin 30.1, Mean Corpuscular Hemoglobin Concent 32.0, Red Cell Distribution Width 15.3H, Platelet Count 164, Mean Platelet Volume 8.2, Neutrophils (%) (Auto) 61.9, Lymphocytes (%) (Auto) 16.8L, Monocytes (%) (Auto) 13.3H, Eosinophils (%) (Auto ) 5.7H, Basophils (%) (Auto) 2.3H, Sodium Level 133L, Potassium Level 3.6, Chloride Level 94L, Carbon Dioxide Level 31, Anion Gap 8, Blood Urea Nitrogen 35H, Creatinine 5.9H, Estimat Glomerular Filtration Rate 8.5, Glucose Level 107H , Calcium Level 8.4L, Phosphorus Level 3.6, Total Bilirubin 0.5, Aspartate Amino Transf (AST/SGOT) 23, Alanine Aminotransferase (ALT/SGPT) 16, Alkaline Phosphatase 59, C-Reactive Protein, Quantitative 5.5H, Total Protein 6.0L, Albumin 2.8L, Globulin 3.2, Albumin/Globulin Ratio 0.9L Current Medications Medications (Trade) Dose Ordered Sig/Jesus Route PRN Reason Start Time Stop Time Status Last Admin Dose Admin Acetaminophen (Tylenol) 500 mg Q4H PRN ORAL Temp >100.5 05/02/20 22:19 06/01/20 22:18 05/02/20 22:33 Acetaminophen/ Hydrocodone Bitart ([place] 5/325) 1 tab Q4H PRN ORAL Pain 3-6 04/28/20 19:30 05/04/20 19:29 04/29/20 06:19 Aspirin (ASA) 81 mg DAILY ORAL 04/29/20 09:00 06/08/20 08:59 05/02/20 09:00 Atorvastatin Calcium (Lipitor) 40 mg BEDTIME ORAL 04/28/20 21:00 07/24/20 20:59 05/02/20 20:18 Barium Sulfate (Varibar Honey) 250 ml NOW PRN Radiology Procedure 04/30/20 12:15 05/03/20 12:15 Barium Sulfate (Varibar [place]) 230 ml NOW PRN Radiology Procedure 04/30/20 12:15 05/03/20 12:15 Barium Sulfate (Varibar Pudding) 230 ml NOW PRN Radiology Procedure 04/30/20 12:15 05/03/20 12:15 Chlorhexidine Gluconate (Cira-Hex 2%) 1 applic DAILY@2000 TOPIC 04/28/20 20:00 07/22/20 19:59 05/02/20 20:17 Dextrose (Dextrose 50%) 25 ml Q30M PRN IV Hypoglycemia 04/29/20 23:30 07/28/20 23:29 Dextrose (Dextrose 50%) 50 ml Q30M PRN IV Hypoglycemia 04/29/20 23:30 07/28/20 23:29 Docusate Sodium (Colace) 100 mg THREE TIMES A DAY ORAL 04/29/20 13:00 05/29/20 12:59 05/02/20 17:24 Epoetin Jose (Epoetin Jose(ESRD on dialysis)) 10,000 unit SUN-SUN-SUN SUBQ 04/30/20 21:00 07/27/20 20:59 04/30/20 21:00 Folic Acid (Folate) 1 mg DAILY ORAL 04/29/20 09:00 05/26/20 08:59 05/02/20 09:38 Heparin Sodium (Porcine) (Heparin 5000 units/ml) 5,000 units EVERY 12 HOURS SUBQ 04/28/20 21:00 06/12/20 20:59 05/02/20 20:24 Hydralazine HCl (Apresoline) 25 mg Q4H PRN ORAL For blood pressure over 160 sy 04/28/20 19:45 07/24/20 19:36 Hydromorphone HCl (Dilaudid) 0.5 mg Q4H PRN SUBQ Pain 704/28/20 19:45 05/04/20 19:44 Insulin Aspart (NovoLOG) BEFORE MEALS AND HS SUBQ 05/02/20 11:30 07/31/20 11:29 05/02/20 20:25 Meropenem 500 mg/ Sodium Chloride 55 ml @ 110 mls/hr Q24H IVPB 05/03/20 00:00 05/08/20 00:00 05/02/20 23:39 Midodrine (Pro-Amatine) 10 mg THREE TIMES A DAY ORAL 04/29/20 09:00 07/25/20 10:29 05/02/20 17:24 Ondansetron HCl (Zofran) 4 mg Q6H PRN IVP Nausea & Vomiting 04/28/20 19:45 05/25/20 19:37 05/03/20 06:23 Pantoprazole (Protonix) 40 mg EVERY 12 HOURS ORAL 04/30/20 21:00 05/30/20 20:59 05/02/20 20:18 Sevelamer Carbonate (Renvela) 800 mg THREE TIMES A DAY ORAL 04/29/20 09:00 07/23/20 08:59 05/02/20 17:24 Vancomycin HCl (Vanco pharmacy to dose) 1 ea DAILY PRN MISC Per rx protocol 04/28/20 19:45 05/28/20 19:44 Assessment/Plan Assessment/Plan ASSESSMENT: 1. Mild pulmonary edema 2. Decubitus wound, 3. End-stage renal disease, on temporary PermCath hemodialysis access. 2. Paroxysmal atrial fibrillation, 3. Diabetes type 2. 4. Hypertension. 5. Hyperlipidemia. 6. CVA-history. 7. Dementia. Plan: Continue local wound care Will continue oxygen and pulmonary hygiene Broad spectrum abx HD per renal; Suraj Henriquez MD May 03, 2020 08:30
[2020-05-03] MEDS: Midodrine 10mg tab ORAL SCH ×3 (08:55→18:00)
[2020-05-03] MEDS: Docusate 100mg/10ml Liq ORAL SCH ×3 (08:55→17:59)
[2020-05-03] MEDS: Aspirin Baby 81mg ORAL SCH (08:55)
[2020-05-03] MEDS: Renvela 800mg Pkt ORAL SCH ×3 (08:55→18:00)
[2020-05-03] MEDS: Heparin 5000 units/ml inj SUBQ SCH ×2 (08:58→20:54)
--- NOTE | 2020-05-03 09:26 | NUR ---
RADIOLOGY DEPT., CHEST X-RAY DONE.-P.DYE
--- NOTE | 2020-05-03 10:25 | NUR ---
CASE MANAGEMENT:REVIEW 05/03/20 SI: PAFIB. DECUBITUS. PULMONARY EDEMA ESRD ~ TUNNELED CATH PLACED 04/30. 98.0 55 18 100/29 99% ON 2L/NC H/H-8.8/27.6 BUN+35 CR+5.9 IS: IV MEROPENEM Q24 SS INSULIN AC+HS EPOETIN SQ MWF PROTONIX PO Q12 ASA PO QD FOLATE PO QD MIDODRINE PO TID HEPARIN SQ Q12 : TELEMETRY STATUS DCP: PATIENT IS FROM HOME PLAN: PT EVAL PENDING
--- NOTE | 2020-05-03 11:02 | General Progress Note ---
Assessment/Plan Status: stable, unchanged Assessment/Plan: S: appears comfortable. O: controlled pain . seen and examined in Tele units. talks and communicate PHYSICAL EXAMINATION: HEAD AND NECK: Atraumatic and normocephalic. CHEST: Right IJ permcath in place, Clear to auscultation. HEART: S1, S2. Regular rate and rhythm. Bradycardic. MUSCULOSKELETAL: paraparesis. stage 3 decubitus wound in calcaneal region. NEUROLOGIC: The patient is awake and alert x 2. LABORATORY AND DIAGNOSTIC DATA: Labs dated 05/01/20 reviewed Imaging: bone scan dated April 28 reviewed ASSESSMENT: 1. Sepsis secondary to Gram positive coccidiema , likely line infection 2. Acute Hypoxemic respiratory failure, s/p rapid response assessment 2. Hypotension : ddx; adrenal insufficiency 3. HyperKalemia 2. Decubitus wound, enlarging and infected. 3. End-stage renal disease, on temporary PermCath hemodialysis access. 2. Paroxysmal atrial fibrillation, rate is stable. 3. Diabetes type 2. 4. Hypertension. 5. Hyperlipidemia. 6. CVA-history. 7. CHF-Diastolic type 8. Dementia. 8. Gastrointestinal and deep vein thrombosis prophylaxes. 9. Pain management 10. iron deficiency anemia Plan: Empirical abx initiated Notes from [facility] care reviewed Notified Dr Fam and D/w Dr Saavedra c/w Batsheva PRN breakthrough Consulte Hem onch Post Calcium/Novolog/D50 treatment with favorable response HD per nephrology will remove HD access post HD D/w Nephrology, ID and Vascular surgeon DC the eliquis in anticipation of Vascular procedures post reinsertion of PermCath D/W Dr Fam for revision of AV G-F D/W Rn to change the insulin regiment to avoid hypoglycemia One episode of fever, re cultured. Negative blood cultures x 5 days otherwise Proceed with Right sided AVG placement, as there is no medical contra- indication at this time. Cardiology, ID, pulmonary services notified about this plan of care Subjective Allergies: Coded Allergies: PENICILLINS (Verified Allergy, Unknown, 04/23/20) Tolerated Cefepime 04/23/20 Objective Last 24 Hour Vital Signs Date Time Temp Pulse Resp B/P (MAP) Pulse Ox O2 Delivery O2 Flow Rate FiO2 05/03/20 08:00 98.0 55 18 100/29 (52) 99 05/03/20 04:00 97.7 60 20 118/43 (68) 98 05/03/20 04:00 60 05/02/20 23:54 99.0 60 20 134/47 (76) 100 05/02/20 23:53 60 05/02/20 23:03 98.8 05/02/20 21:00 Nasal Cannula 2.0 Nasal Cannula 2.0 Nasal Cannula 2.0 05/02/20 20:00 101.5 60 20 106/42 (63) 98 05/02/20 20:00 60 05/02/20 16:00 97.9 60 18 105/41 (62) 97 05/02/20 16:00 60 05/02/20 12:00 60 05/02/20 11:55 98.1 60 18 92/32 (52) 99 Intake and Output 05/02/20 05/03/20 19:00 07:00 Intake Total 600 ml 120 ml Balance 600 ml 120 ml Intake Oral 600 ml Other 120 ml # Bowel Movements 1 Laboratory Tests 05/02/20 11:36: POC Whole Blood Glucose 77 05/02/20 17:11: POC Whole Blood Glucose 163H 05/03/20 07:00: White Blood Count 7.2, Red Blood Count 2.93L, Hemoglobin 8.8L, Hematocrit 27.6L , Mean Corpuscular Volume 94, Mean Corpuscular Hemoglobin 30.1, Mean Corpuscular Hemoglobin Concent 32.0, Red Cell Distribution Width 15.3H, Platelet Count 164, Mean Platelet Volume 8.2, Neutrophils (%) (Auto) 61.9, Lymphocytes (%) (Auto) 16.8L, Monocytes (%) (Auto) 13.3H, Eosinophils (%) (Auto ) 5.7H, Basophils (%) (Auto) 2.3H, Sodium Level 133L, Potassium Level 3.6, Chloride Level 94L, Carbon Dioxide Level 31, Anion Gap 8, Blood Urea Nitrogen 35H, Creatinine 5.9H, Estimat Glomerular Filtration Rate 8.5, Glucose Level 107H , Calcium Level 8.4L, Phosphorus Level 3.6, Total Bilirubin 0.5, Aspartate Amino Transf (AST/SGOT) 23, Alanine Aminotransferase (ALT/SGPT) 16, Alkaline Phosphatase 59, C-Reactive Protein, Quantitative 5.5H, Total Protein 6.0L, Albumin 2.8L, Globulin 3.2, Albumin/Globulin Ratio 0.9L Height (Feet): 5 Height (Inches): 5.00 Weight (Pounds): 293 Danie Banegas MD May 03, 2020 11:02
--- NOTE | 2020-05-03 11:32 | Hematology/Onc Progress Note ---
Assessment/Plan Assessment/Plan Assessment and Recs # Thombocytopenia is likely 2/2 Cellulitis of left foot --> as per id --> plt trend 150-->102-->92-->103-->133-->148->135->164 --> hold anticoag if plt <50 --> abx vanc/cefepime # Anemia is likely due to esrd, has been under care of Dr. Stephenson --> continue hd as needed --> with permacath in place on chest, no infection --> EPOGEN 4k dose 3 times a week started --> hgb trend 12-->9->8.1->7.7->8.8 --> as per renal # Hypercoagulable disorder with afib hx --> on eliquis which has been started --> no bleeding noted # ESRD (end stage renal disease) --> per renal care # Diabetic nephropathy --> wound care and endo recs --> a1c goal <8 # Dvt ppx heparin sq DW Rn and appreciate consultation Subjective HEENT: Denies: no symptoms, eye pain, blurred vision, tearing, double vision, ear pain, ear discharge, nose pain, nose congestion, throat pain, throat swelling, mouth pain, mouth swelling, other Cardiovascular: Denies: no symptoms, chest pain, edema, irregular heart rate, lightheadedness, palpitations, syncope, other Gastrointestinal/Abdominal: Denies: no symptoms, abdomen distended, abdominal pain, black stools, tarry stools, blood in stool, constipated, diarrhea, difficulty swallowing, nausea, poor appetite, poor fluid intake, rectal bleeding , vomiting, other Neurologic/Psychiatric: Denies: no symptoms, anxiety, depressed, emotional problems, headache, numbness, paresthesia, pre-existing deficit, seizure, tingling, tremors, weakness, other Endocrine: Denies: no symptoms, excessive sweating, flushing, intolerance to cold, intolerance to heat, increased hunger, increased thirst, increased urine, unexplained weight gain, unexplained weight loss, other Hematologic/Lymphatic: Denies: no symptoms, anemia, easy bleeding, easy bruising, adenopathy, other Allergies: Coded Allergies: PENICILLINS (Verified Allergy, Unknown, 04/23/20) Tolerated Cefepime 04/23/20 Subjective 04/26 seen by renal, is for hd tomorrow, labs noted, plts are lower 04/27 labs noted, no bleeding, for hd, hgb currently lower at 9 04/28 meds noted, no bleeding, carlo rn, permcath to dc 04/29 labs still pending, no bleeding, remains forgetful, no bleeding 04/30 no major changes, no bleeding, cbc is noted 05/01 meds reviewed, no bleeding, labs noted, no night sweats 05/02 to undergo hd for tomorrow, no bleeding, labs noted hgb 7.7 05/03 remains on abx, and plts have improved, no bleeding Objective Objective Current Medications Medications (Trade) Dose Ordered Sig/Jesus Route PRN Reason Start Time Stop Time Status Last Admin Dose Admin Acetaminophen (Tylenol) 500 mg Q4H PRN ORAL Temp >100.5 05/02/20 22:19 06/01/20 22:18 05/02/20 22:33 Acetaminophen/ Hydrocodone Bitart ([place] 5/325) 1 tab Q4H PRN ORAL Pain 3-6 04/28/20 19:30 05/04/20 19:29 04/29/20 06:19 Aspirin (ASA) 81 mg DAILY ORAL 04/29/20 09:00 06/08/20 08:59 05/03/20 08:55 Atorvastatin Calcium (Lipitor) 40 mg BEDTIME ORAL 04/28/20 21:00 07/24/20 20:59 05/02/20 20:18 Barium Sulfate (Varibar Honey) 250 ml NOW PRN Radiology Procedure 04/30/20 12:15 05/03/20 12:15 Barium Sulfate (Varibar [place]cl[place] Tract) 230 ml NOW PRN Radiology Procedure 04/30/20 12:15 05/03/20 12:15 Barium Sulfate (Varibar Pudding) 230 ml NOW PRN Radiology Procedure 04/30/20 12:15 05/03/20 12:15 Chlorhexidine Gluconate (Cira-Hex 2%) 1 applic DAILY@1999 TOPIC 04/28/20 20:00 07/22/20 19:59 05/02/20 20:17 Dextrose (Dextrose 50%) 25 ml Q30M PRN IV Hypoglycemia 04/29/20 23:30 07/28/20 23:29 Dextrose (Dextrose 50%) 50 ml Q30M PRN IV Hypoglycemia 04/29/20 23:30 07/28/20 23:29 Docusate Sodium (Colace) 100 mg THREE TIMES A DAY ORAL 04/29/20 13:00 05/29/20 12:59 05/03/20 08:55 Epoetin Jose (Epoetin Jose(ESRD on dialysis)) 10,000 unit SUN-SUN-SUN SUBQ 04/30/20 21:00 07/27/20 20:59 04/30/20 21:00 Folic Acid (Folate) 1 mg DAILY ORAL 04/29/20 09:00 05/26/20 08:59 05/03/20 08:55 Heparin Sodium (Porcine) (Heparin 5000 units/ml) 5,000 units EVERY 12 HOURS SUBQ 04/28/20 21:00 06/12/20 20:59 05/03/20 08:58 Hydralazine HCl (Apresoline) 25 mg Q4H PRN ORAL For blood pressure over 160 sy 04/28/20 19:45 07/24/20 19:36 Hydromorphone HCl (Dilaudid) 0.5 mg Q4H PRN SUBQ Pain 7-10 04/28/20 19:45 05/04/20 19:44 Insulin Aspart (NovoLOG) BEFORE MEALS AND HS SUBQ 05/02/20 11:30 07/31/20 11:29 05/02/20 20:25 Meropenem 500 mg/ Sodium Chloride 55 ml @ 110 mls/hr Q24H IVPB 05/03/20 00:00 05/08/20 00:00 05/02/20 23:39 Midodrine (Pro-Amatine) 10 mg THREE TIMES A DAY ORAL 04/29/20 09:00 07/25/20 10:29 05/03/20 08:55 Ondansetron HCl (Zofran) 4 mg Q6H PRN IVP Nausea & Vomiting 04/28/20 19:45 05/25/20 19:37 05/03/20 06:23 Pantoprazole (Protonix) 40 mg EVERY 12 HOURS ORAL 04/30/20 21:00 05/30/20 20:59 05/02/20 20:18 Sevelamer Carbonate (Renvela) 800 mg THREE TIMES A DAY ORAL 04/29/20 09:00 07/23/20 08:59 05/03/20 08:55 Vancomycin HCl (Vanco pharmacy to dose) 1 ea DAILY PRN MISC Per rx protocol 04/28/20 19:45 05/28/20 19:44 Last 24 Hour Vital Signs Date Time Temp Pulse Resp B/P (MAP) Pulse Ox O2 Delivery O2 Flow Rate FiO2 05/03/20 08:00 98.0 55 18 100/29 (52) 99 05/03/20 04:00 97.7 60 20 118/43 (68) 98 05/03/20 04:00 60 05/02/20 23:54 99.0 60 20 134/47 (76) 100 05/02/20 23:53 60 05/02/20 23:03 98.8 05/02/20 21:00 Nasal Cannula 2.0 Nasal Cannula 2.0 Nasal Cannula 2.0 05/02/20 20:00 101.5 60 20 106/42 (63) 98 05/02/20 20:00 60 05/02/20 16:00 97.9 60 18 105/41 (62) 97 05/02/20 16:00 60 05/02/20 12:00 60 05/02/20 11:55 98.1 60 18 92/32 (52) 99 05/02/20 09:00 Nasal Cannula 2.0 Nasal Cannula 2.0 Nasal Cannula 2.0 05/02/20 08:00 97.9 60 20 100/40 (60) 100 05/02/20 08:00 60 05/02/20 04:00 60 05/02/20 04:00 98.0 62 24 117/58 (77) 96 05/02/20 00:00 62 05/02/20 00:00 97.9 66 20 133/53 (79) 98 05/01/20 21:00 Nasal Cannula 2.0 Nasal Cannula 2.0 Nasal Cannula 2.0 05/01/20 20:00 62 05/01/20 20:00 98.8 65 20 115/58 (77) 97 05/01/20 19:33 97 Nasal Cannula 2.0 28 05/01/20 18:00 59 111/50 (70) 05/01/20 16:00 97.5 59 18 101/41 (61) 97 05/01/20 16:00 60 05/01/20 15:45 60 77/32 (47) 05/01/20 15:39 60 91/38 (55) 05/01/20 15:30 60 91/41 (58) 05/01/20 15:15 60 129/50 (76) 05/01/20 12:00 97.5 60 20 120/46 (70) 98 05/01/20 12:00 60 Intake and Output 05/02/20 05/03/20 19:00 07:00 Intake Total 600 ml 120 ml Balance 600 ml 120 ml Intake Oral 600 ml Other 120 ml # Bowel Movements 1 Labs Test 04/30/20 11:58 04/30/20 21:17 05/01/20 06:57 05/01/20 11:18 POC Whole Blood Glucose 133 MG/DL (74-106) 93 MG/DL (74-106) Test 05/01/20 20:13 05/02/20 10:45 05/02/20 11:36 05/02/20 17:11 POC Whole Blood Glucose 92 MG/DL (74-106) 77 MG/DL (74-106) 163 MG/DL (74-106) White Blood Count 5.1 K/UL (4.8-10.8) Red Blood Count 2.61 M/UL (4.20-5.40) Hemoglobin 7.7 G/DL (12.0-16.0) Hematocrit 24.2 % (37.0-47.0) Mean Corpuscular Volume 93 FL (80-99) Mean Corpuscular Hemoglobin 29.5 PG (27.0-31.0) Mean Corpuscular Hemoglobin Concent 31.8 G/DL (32.0-36.0) Red Cell Distribution Width 15.3 % (11.6-14.8) Platelet Count 139 K/UL (150-450) Mean Platelet Volume 7.4 FL (6.5-10.1) Neutrophils (%) (Auto) % (45.0-75.0) Lymphocytes (%) (Auto) % (20.0-45.0) Monocytes (%) (Auto) % (1.0-10.0) Eosinophils (%) (Auto) % (0.0-3.0) Basophils (%) (Auto) % (0.0-2.0) Differential Total Cells Counted 100 Neutrophils % (Manual) 66 % (45-75) Lymphocytes % (Manual) 19 % (20-45) Monocytes % (Manual) 10 % (1-10) Eosinophils % (Manual) 5 % (0-3) Basophils % (Manual) 0 % (0-2) Band Neutrophils 0 % (0-8) Platelet Estimate Decreased Platelet Morphology Normal Polychromasia 1+ Hypochromasia 1+ Anisocytosis 1+ Sodium Level 133 MMOL/L (136-145) Potassium Level 3.6 MMOL/L (3.5-5.1) Chloride Level 94 MMOL/L (98-107) Carbon Dioxide Level 32 MMOL/L (21-32) Anion Gap 7 mmol/L (5-15) Blood Urea Nitrogen 27 mg/dL (7-18) Creatinine 5.0 MG/DL (0.55-1.30) Estimat Glomerular Filtration Rate 10.3 mL/min (>60) Glucose Level 84 MG/DL (74-106) Calcium Level 8.5 MG/DL (8.5-10.1) Phosphorus Level 4.1 MG/DL (2.5-4.9) Total Bilirubin 0.4 MG/DL (0.2-1.0) Aspartate Amino Transf (AST/SGOT) 21 U/L (15-37) Alanine Aminotransferase (ALT/SGPT) 13 U/L (12-78) Alkaline Phosphatase 54 U/L (46-116) C-Reactive Protein, Quantitative 5.8 mg/dL (0.00-0.90) Total Protein 5.6 G/DL (6.4-8.2) Albumin 2.7 G/DL (3.4-5.0) Globulin 2.9 g/dL Albumin/Globulin Ratio 0.9 (1.0-2.7) Random Vancomycin Level 17.4 ug/mL Test 05/03/20 07:00 White Blood Count 7.2 K/UL (4.8-10.8) Red Blood Count 2.93 M/UL (4.20-5.40) Hemoglobin 8.8 G/DL (12.0-16.0) Hematocrit 27.6 % (37.0-47.0) Mean Corpuscular Volume 94 FL (80-99) Mean Corpuscular Hemoglobin 30.1 PG (27.0-31.0) Mean Corpuscular Hemoglobin Concent 32.0 G/DL (32.0-36.0) Red Cell Distribution Width 15.3 % (11.6-14.8) Platelet Count 164 K/UL (150-450) Mean Platelet Volume 8.2 FL (6.5-10.1) Neutrophils (%) (Auto) 61.9 % (45.0-75.0) Lymphocytes (%) (Auto) 16.8 % (20.0-45.0) Monocytes (%) (Auto) 13.3 % (1.0-10.0) Eosinophils (%) (Auto) 5.7 % (0.0-3.0) Basophils (%) (Auto) 2.3 % (0.0-2.0) Sodium Level 133 MMOL/L (136-145) Potassium Level 3.6 MMOL/L (3.5-5.1) Chloride Level 94 MMOL/L (98-107) Carbon Dioxide Level 31 MMOL/L (21-32) Anion Gap 8 mmol/L (5-15) Blood Urea Nitrogen 35 mg/dL (7-18) Creatinine 5.9 MG/DL (0.55-1.30) Estimat Glomerular Filtration Rate 8.5 mL/min (>60) Glucose Level 107 MG/DL (74-106) Calcium Level 8.4 MG/DL (8.5-10.1) Phosphorus Level 3.6 MG/DL (2.5-4.9) Total Bilirubin 0.5 MG/DL (0.2-1.0) Aspartate Amino Transf (AST/SGOT) 23 U/L (15-37) Alanine Aminotransferase (ALT/SGPT) 16 U/L (12-78) Alkaline Phosphatase 59 U/L (46-116) C-Reactive Protein, Quantitative 5.5 mg/dL (0.00-0.90) Total Protein 6.0 G/DL (6.4-8.2) Albumin 2.8 G/DL (3.4-5.0) Globulin 3.2 g/dL Albumin/Globulin Ratio 0.9 (1.0-2.7) Height (Feet): 5 Height (Inches): 5.00 Weight (Pounds): 293 Objective Physical Exam Vitals: reviewed Gen: no apparent distress, alert, non-toxic, obese, Chronically Ill HEENT: hearing grossly normal, normal voice Neck: full range of motion Resp: chest non-tender, lungs clear, normal breath sounds, no respiratory distress, permacath left side Cardiovascular: regular rate, rhythm, no edema, other - slow cap refill time of lower extremities bilaterally GI: normal bowel sounds, non tender, soft Msk: normal range of motion, non-tender, other - PT. wheel chair bound Neuro: alert, oriented x3, responsive, speech normal, sensory deficit Psychiatric: judgement/insight normal Skin: Decubitus/Ulcer - 2cm in diameter with a deeper necrotic 0.6cm center. erythema- pressure sore on tailbone. no skin break down Husam Byers MD May 03, 2020 11:32
--- NOTE | 2020-05-03 11:40 | Surgery Progress Note ---
Surgery Progress Note Subjective Additional Comments no acute events resting comfortable d/c planning labs reviewed Objective Last 24 Hour Vital Signs Date Time Temp Pulse Resp B/P (MAP) Pulse Ox O2 Delivery O2 Flow Rate FiO2 05/03/20 08:00 98.0 55 18 100/29 (52) 99 05/03/20 04:00 97.7 60 20 118/43 (68) 98 05/03/20 04:00 60 05/02/20 23:54 99.0 60 20 134/47 (76) 100 05/02/20 23:53 60 05/02/20 23:03 98.8 05/02/20 21:00 Nasal Cannula 2.0 Nasal Cannula 2.0 Nasal Cannula 2.0 05/02/20 20:00 101.5 60 20 106/42 (63) 98 05/02/20 20:00 60 05/02/20 16:00 97.9 60 18 105/41 (62) 97 05/02/20 16:00 60 05/02/20 12:00 60 05/02/20 11:55 98.1 60 18 92/32 (52) 99 I&O Intake and Output 05/02/20 05/03/20 19:00 07:00 Intake Total 600 ml 120 ml Balance 600 ml 120 ml Intake Oral 600 ml Other 120 ml # Bowel Movements 1 Dressing: saturated Wound: other Drains: other Cardiovascular: RSR Respiratory: decreased breath sounds Abdomen: soft, non-tender, present bowel sounds Extremities: no tenderness, no cyanosis Laboratory Tests Test 05/02/20 17:11 05/03/20 07:00 POC Whole Blood Glucose 163 MG/DL (74-106) H White Blood Count 7.2 K/UL (4.8-10.8) Red Blood Count 2.93 M/UL (4.20-5.40) L Hemoglobin 8.8 G/DL (12.0-16.0) L Hematocrit 27.6 % (37.0-47.0) L Mean Corpuscular Volume 94 FL (80-99) Mean Corpuscular Hemoglobin 30.1 PG (27.0-31.0) Mean Corpuscular Hemoglobin Concent 32.0 G/DL (32.0-36.0) Red Cell Distribution Width 15.3 % (11.6-14.8) H Platelet Count 164 K/UL (150-450) Mean Platelet Volume 8.2 FL (6.5-10.1) Neutrophils (%) (Auto) 61.9 % (45.0-75.0) Lymphocytes (%) (Auto) 16.8 % (20.0-45.0) L Monocytes (%) (Auto) 13.3 % (1.0-10.0) H Eosinophils (%) (Auto) 5.7 % (0.0-3.0) H Basophils (%) (Auto) 2.3 % (0.0-2.0) H Sodium Level 133 MMOL/L (136-145) L Potassium Level 3.6 MMOL/L (3.5-5.1) Chloride Level 94 MMOL/L (98-107) L Carbon Dioxide Level 31 MMOL/L (21-32) Anion Gap 8 mmol/L (5-15) Blood Urea Nitrogen 35 mg/dL (7-18) H Creatinine 5.9 MG/DL (0.55-1.30) H Estimat Glomerular Filtration Rate 8.5 mL/min (>60) Glucose Level 107 MG/DL (74-106) H Calcium Level 8.4 MG/DL (8.5-10.1) L Phosphorus Level 3.6 MG/DL (2.5-4.9) Total Bilirubin 0.5 MG/DL (0.2-1.0) Aspartate Amino Transf (AST/SGOT) 23 U/L (15-37) Alanine Aminotransferase (ALT/SGPT) 16 U/L (12-78) Alkaline Phosphatase 59 U/L (46-116) C-Reactive Protein, Quantitative 5.5 mg/dL (0.00-0.90) H Total Protein 6.0 G/DL (6.4-8.2) L Albumin 2.8 G/DL (3.4-5.0) L Globulin 3.2 g/dL Albumin/Globulin Ratio 0.9 (1.0-2.7) L Plan Problems: (1) Diabetic nephropathy (2) Cellulitis of left foot Assessment & Plan: Pt presented on admission with Moisture Intertrigo Bilat Breasts and Abdominal folds. Unstageable Pressure Injury Lateral L heel (L) 2.2cm x (W)2.2cm. Base of wound is 80% soft necrosis,10% slough, remaining 10% monique.Epibole approx 50% borders,50% pink. Small amt Brownish exudate. Wound is malodorous. Loose non-viable tissue removed.Base of wound now 90% slough,10% monique. Odor improved post cleansing. Therahoney applied with small 2x2 packing, covered with ABD pad and wrapped with Kerlix until orders for wound care can be clarified with DPM. Both feet are cold to touch and dusky at distal aspect including metatarsals both feet;dorsum L 3rd metatarsal is black. Dry eschar noted to L 1st metatarsal head(L)1.1cm x (W)1.6cm.Pt complained of pain LLE and L foot to slightest touch or movement R heel is boggy and pale. Moisture Intertrigo skin folds both breasts and abdominal folds. Both areas are malodorous. Cleansed with soap and water and gently dried. Phytoplex Antifungal Powder applied to affected areas. R and L groin are moist and erythematous. Moisture Barrier Paste applied. Darker skin tone with two small indurated areas at Sacrococcygeal area noted. Pt complained site tender when minimally palpated. In close proximity above coccyx at [place] cleft is resolving Pressure injury. [place] epithelial noted. An area of hyperpigmentation with pink epithelial medially noted to L Ischial tuberosity. Hyperpigmentation noted to R Ischium. Tx.Plan: Wash and dry skin folds both breasts and Abdominal folds. Apply Light Dusting of Antifungal powder Twice Daily. Apply Moisture Barrier Paste to Bilat groin and Buttocks with each Incontinence care. Cover Sacrum with Optifoam drsg. Change every 3 days and prn. Apply Cavilon Skin Barrier to bilateral Heel and Malleoli. Cover with Optifoam drsg. Change every 7 days and prn. Reposition at least every 2hours or as tolerated. Off-load heels with pillow. Flow images demonstrate overall asymmetrically increased flow in the right foot, particularly in the region of the calcaneal tuberosity, midfoot and forefoot. There is equivocally slightly increased flow in the left heel. Blood pool images likewise demonstrate increased activity on the right, involving the midfoot and forefoot. Very subtle slightly increased activity is seen in the region of the left calcaneal tuberosity. On the static images, there is very mildly prominent activity in the left calcaneal tuberosity, but this is actually less striking than on the contralateral side. Ill-defined increased activity is seen in the left midfoot and in the right midfoot and forefoot. There is some increased activity in the region of the right metatarsophalangeal joint which is probably degenerative in nature. Impression: No significant abnormality in the left heel to suggest osteomyelitis of the location of clinically described left heel wound. Mild bilateral abnormal uptake, as detailed above, likely reflecting degenerative changes (3) Pacemaker (4) Anemia in chronic kidney disease (CKD) (5) History of CVA (cerebrovascular accident) (6) History of atrial fibrillation (7) ESRD (end stage renal disease) (8) COPD (chronic obstructive pulmonary disease) (9) Bradycardia (10) Diabetic nephropathy (11) Hypertensive kidney disease (12) Volume overload (13) Heel abrasion (14) Elevated troponin I level (15) Urinary tract infection due to Proteus (16) Dyspnea (17) Symptomatic anemia (18) Acute on chronic renal failure (19) Anemia (20) HTN (hypertension) Luis Alberto Cade May 03, 2020 11:40
[2020-05-03 12:00] VITALS: BP 124/62
--- NOTE | 2020-05-03 12:02 | NUR ---
NURSE NOTES: BS 141 however insulin not administered. PT tends to refuse lunch or eat very little. Additionally has been ruining low and will be dialyzed later today.
--- NOTE | 2020-05-03 12:05 | NUR ---
NURSE NOTES: Called [facility] and confirmed again that they will be coming today.
--- NOTE | 2020-05-03 12:22 | Diagnostic Imaging Report ---
Procedure: XRAY Chest 1v Reason for study: Shortness of breath. Comparison films: 04/30/2020. FINDINGS: Right central venous catheter and left upper chest cardiac pacer remain in place unchanged in position. Mild vascular prominence unchanged. The lung chisholm are clear bilaterally. Cardiac and mediastinal silhouette are within normal limits. CP angles are sharp. The bony thorax appear unremarkable. IMPRESSION: NO SIGNIFICANT CHANGE COMPARED TO PREVIOUS EXAM.
--- NOTE | 2020-05-03 12:22 | Nephrology Progress Note ---
Assessment/Plan Problem List: (1) ESRD (end stage renal disease) (2) Pacemaker (3) Diabetic nephropathy (4) Cellulitis of left foot (5) Anemia in chronic kidney disease (CKD) (6) History of CVA (cerebrovascular accident) (7) History of atrial fibrillation Plan May 03: Due for dialysis today. Hemoglobin higher at 8.8 today. Continue per consultants. May 02: Dialyzed yesterday. Will order dialysis tomorrow. 1 unit blood transfusion for low hemoglobin. Continue rest of medications. May 01: Patient due for dialysis today. Continue to monitor renal parameters and dialyze as needed. Continue per ID. Will check lab tomorrow. April 30: Patient due for insertion of a permacath today. Will arrange for dialysis tomorrow. Blood cultures remain negative. COVID-19 test negative. Discussed with RN. April 29: Permacath was taken out yesterday. Will place the catheter tomorrow. Blood cultures negative so far. Continue per consultants. April 28: Dialyzed yesterday. Will remove permacath today. Will do surveillance blood culture. Will aim to put catheter back in 48 hours. April 27: Due for dialysis today. Potassium 5.6. Will give Kayexalate. Blood pressure better under control. Continue per consultants. Also as per ID recommendation based on the blood culture results will remove the permacath tomorrow and will send the tip for culture. Will aim to have another catheter in 48 hours later. In the interim we will do surveillance blood culture. Patient received dialysis last evening for hyperkalemia. Patient had to be transferred to ICU for low blood pressure despite of multiple fluid challenges. Currently in ICU blood pressure 85-90 systolic. Patient on no blood pressure medication. Troponin I slightly elevated. 2D echocardiogram pending. Will start midodrine. Will aim to dialyze tomorrow. Monitor H&H and renal parameters and electrolytes Antibiotic per ID Pain medication adjusted Continue per consultants Subjective ROS Limited/Unobtainable: No Constitutional: Reports: malaise, weakness Objective Objective Last 24 Hour Vital Signs Date Time Temp Pulse Resp B/P (MAP) Pulse Ox O2 Delivery O2 Flow Rate FiO2 05/03/20 12:00 97.9 70 18 124/62 (82) 99 05/03/20 08:00 60 05/03/20 08:00 98.0 55 18 100/29 (52) 99 05/03/20 04:00 97.7 60 20 118/43 (68) 98 05/03/20 04:00 60 05/02/20 23:54 99.0 60 20 134/47 (76) 100 05/02/20 23:53 60 05/02/20 23:03 98.8 05/02/20 21:00 Nasal Cannula 2.0 Nasal Cannula 2.0 Nasal Cannula 2.0 05/02/20 20:00 101.5 60 20 106/42 (63) 98 05/02/20 20:00 60 05/02/20 16:00 97.9 60 18 105/41 (62) 97 05/02/20 16:00 60 Intake and Output 05/02/20 05/03/20 19:00 07:00 Intake Total 600 ml 120 ml Balance 600 ml 120 ml Intake Oral 600 ml Other 120 ml # Bowel Movements 1 Current Medications Medications (Trade) Dose Ordered Sig/Jesus Route PRN Reason Start Time Stop Time Status Last Admin Dose Admin Acetaminophen (Tylenol) 500 mg Q4H PRN ORAL Temp >100.5 05/02/20 22:19 06/01/20 22:18 05/02/20 22:33 Acetaminophen/ Hydrocodone Bitart ([place] 5/325) 1 tab Q4H PRN ORAL Pain 3-6 04/28/20 19:30 05/04/20 19:29 04/29/20 06:19 Aspirin (ASA) 81 mg DAILY ORAL 04/29/20 09:00 06/08/20 08:59 05/03/20 08:55 Atorvastatin Calcium (Lipitor) 40 mg BEDTIME ORAL 04/28/20 21:00 07/24/20 20:59 05/02/20 20:18 Chlorhexidine Gluconate (Cira-Hex 2%) 1 applic DAILY@1999 TOPIC 04/28/20 20:00 07/22/20 19:59 05/02/20 20:17 Dextrose (Dextrose 50%) 25 ml Q30M PRN IV Hypoglycemia 04/29/20 23:30 07/28/20 23:29 Dextrose (Dextrose 50%) 50 ml Q30M PRN IV Hypoglycemia 04/29/20 23:30 07/28/20 23:29 Docusate Sodium (Colace) 100 mg THREE TIMES A DAY ORAL 04/29/20 13:00 05/29/20 12:59 05/03/20 08:55 Epoetin Jose (Epoetin Jose(ESRD on dialysis)) 10,000 unit SUN-SUN-SUN SUBQ 04/30/20 21:00 07/27/20 20:59 04/30/20 21:00 Folic Acid (Folate) 1 mg DAILY ORAL 04/29/20 09:00 05/26/20 08:59 05/03/20 08:55 Heparin Sodium (Porcine) (Heparin 5000 units/ml) 5,000 units EVERY 12 HOURS SUBQ 04/28/20 21:00 06/12/20 20:59 05/03/20 08:58 Hydralazine HCl (Apresoline) 25 mg Q4H PRN ORAL For blood pressure over 160 sy 04/28/20 19:45 07/24/20 19:36 Hydromorphone HCl (Dilaudid) 0.5 mg Q4H PRN SUBQ Pain 7-04/28/20 19:45 05/04/20 19:44 Insulin Aspart (NovoLOG) BEFORE MEALS AND HS SUBQ 05/02/20 11:30 07/31/20 11:29 05/02/20 20:25 Meropenem 500 mg/ Sodium Chloride 55 ml @ 110 mls/hr Q24H IVPB 05/03/20 00:00 05/08/20 00:00 05/02/20 23:39 Midodrine (Pro-Amatine) 10 mg THREE TIMES A DAY ORAL 04/29/20 09:00 07/25/20 10:29 05/03/20 08:55 Ondansetron HCl (Zofran) 4 mg Q6H PRN IVP Nausea & Vomiting 04/28/20 19:45 05/25/20 19:37 05/03/20 06:23 Pantoprazole (Protonix) 40 mg EVERY 12 HOURS ORAL 04/30/20 21:00 05/30/20 20:59 05/02/20 20:18 Sevelamer Carbonate (Renvela) 800 mg THREE TIMES A DAY ORAL 04/29/20 09:00 07/23/20 08:59 05/03/20 08:55 Vancomycin HCl ([facility] pharmacy to dose) 1 ea DAILY PRN MISC Per rx protocol 04/28/20 19:45 05/28/20 19:44 Laboratory Tests 05/02/20 17:11: POC Whole Blood Glucose 163H 05/03/20 07:00: White Blood Count 7.2, Red Blood Count 2.93L, Hemoglobin 8.8L, Hematocrit 27.6L , Mean Corpuscular Volume 94, Mean Corpuscular Hemoglobin 30.1, Mean Corpuscular Hemoglobin Concent 32.0, Red Cell Distribution Width 15.3H, Platelet Count 164, Mean Platelet Volume 8.2, Neutrophils (%) (Auto) 61.9, Lymphocytes (%) (Auto) 16.8L, Monocytes (%) (Auto) 13.3H, Eosinophils (%) (Auto ) 5.7H, Basophils (%) (Auto) 2.3H, Sodium Level 133L, Potassium Level 3.6, Chloride Level 94L, Carbon Dioxide Level 31, Anion Gap 8, Blood Urea Nitrogen 35H, Creatinine 5.9H, Estimat Glomerular Filtration Rate 8.5, Glucose Level 107H , Calcium Level 8.4L, Phosphorus Level 3.6, Total Bilirubin 0.5, Aspartate Amino Transf (AST/SGOT) 23, Alanine Aminotransferase (ALT/SGPT) 16, Alkaline Phosphatase 59, C-Reactive Protein, Quantitative 5.5H, Total Protein 6.0L, Albumin 2.8L, Globulin 3.2, Albumin/Globulin Ratio 0.9L Height (Feet): 5 Height (Inches): 5.00 Weight (Pounds): 293 General Appearance: no apparent distress Cardiovascular: normal rate Respiratory/Chest: decreased breath sounds Abdomen: soft Manas Stephenson MD May 03, 2020 12:22
--- NOTE | 2020-05-03 13:23 | NUR ---
NURSE NOTES: Spoke with Dr. Fam and received orders for STAT vascular mapping for planned AV Shunt tomorrow. Vascular Lab called and notified of order.
--- NOTE | 2020-05-03 13:47 | NUR ---
P.T Note: P.T consult received. P.T evaluation completed. Based on P.T evaluation and patient's PLOF, pt is found to be dependent in all areas of ADL/functional mobility mobilities and self care. Pt is not candidate for skilled P.T services as pt is already at baseline. Recommend DC to prior living arrangement where 24 hr care is available. DC P.T services. Thank you for this referral.
--- NOTE | 2020-05-03 15:39 | Infectious Diseases Prog Note ---
Assessment/Plan Assessment: Fever 05/02 r/o recurrent bacteremia No leukocytosis 05/03 CXR: Mild vascular prominence unchanged. The lung chisholm are clear bilaterally. -05/02 Bcx p TV NEWS DIRECTOR 04/25- due to hypotension and desaturation -hypoxic on ABG SEvere sepsis S. capitis bacteremia, persistent- likely HD line infection in the setting of sepsis -04/23 Bcx 1/ Staph capitis ; 04/25 Bcx 1 Staph capitis; 04/27 Bcx Neg x4 ( peripheral, HD line) -2d Echo: no vegetations seen Pulmonary edema vs PNA -04/30 CXR: Mild perihilar interstitial congestion, unchanged from 04/25/2020. -04/25 SARS-COV2 PCR neg -04/25 CXR: Perihilar opacities may represent pulmonary edema versus infectious/inflammatory process. Elevated trop L foot/ankle wound; no grossly infected- no OM on bone scan -04/28 Bone scan: No significant abnormality in the left heel to suggest osteomyelitis of the location of clinically described left heel wound. Mild bilateral abnormal uptake, as detailed above, likely reflecting degenerative changes -xray L foot/ankle: No acute findings in the left foot. -CRP 5.9, ESR 53 -CXR: no acute disease Dm2 HTN Asthma/COPD CVA 10 yrs ago w/ residual L side weakness s/p PPM asthma ESRD on HD (MWF) Plan: -Continue IV Vancomycin # 08/21 for bacteremia -Empiric Meropenem #2 given fever -04/29 SP Cefepime #5 -04/25 SP Ceftriaxone #3 -04/23 SP Cefepime x1 -f/u cx -Monitor CBC/CMP, temperatures -wound care per president celebrity acquistion -Podiatry, renal, cards, pulm f/u -f/u Bcx --if patient remains afebrile, and repaet Bcx are preliminary negative, then can proceed with AVG placement tomorrow Thank you for consulting [facility]. Will continue to follow along . Discussed with RN and Dr Huff Subjective Allergies: Coded Allergies: PENICILLINS (Verified Allergy, Unknown, 04/23/20) Tolerated Cefepime 04/23/20 Febrile last night to 101.5 x1 at 2l NC no leukocytosis Objective Last 24 Hour Vital Signs Date Time Temp Pulse Resp B/P (MAP) Pulse Ox O2 Delivery O2 Flow Rate FiO2 05/03/20 12:00 97.9 70 18 124/62 (82) 99 05/03/20 12:00 60 05/03/20 09:00 Nasal Cannula 2.0 Nasal Cannula 2.0 Nasal Cannula 2.0 05/03/20 08:00 60 05/03/20 08:00 98.0 55 18 100/29 (52) 99 05/03/20 04:00 97.7 60 20 118/43 (68) 98 05/03/20 04:00 60 05/02/20 23:54 99.0 60 20 134/47 (76) 100 05/02/20 23:53 60 05/02/20 23:03 98.8 05/02/20 21:00 Nasal Cannula 2.0 Nasal Cannula 2.0 Nasal Cannula 2.0 05/02/20 20:00 101.5 60 20 106/42 (63) 98 05/02/20 20:00 60 05/02/20 16:00 97.9 60 18 105/41 (62) 97 05/02/20 16:00 60 Height (Feet): 5 Height (Inches): 5.00 Weight (Pounds): 293 Cardiovascular: RSR Respiratory: decreased breath sounds Abdomen: soft, non-tender, present bowel sounds Extremities: no cyanosis Laboratory Tests Test 05/02/20 17:11 05/03/20 07:00 POC Whole Blood Glucose 163 MG/DL (74-106) H White Blood Count 7.2 K/UL (4.8-10.8) Red Blood Count 2.93 M/UL (4.20-5.40) L Hemoglobin 8.8 G/DL (12.0-16.0) L Hematocrit 27.6 % (37.0-47.0) L Mean Corpuscular Volume 94 FL (80-99) Mean Corpuscular Hemoglobin 30.1 PG (27.0-31.0) Mean Corpuscular Hemoglobin Concent 32.0 G/DL (32.0-36.0) Red Cell Distribution Width 15.3 % (11.6-14.8) H Platelet Count 164 K/UL (150-450) Mean Platelet Volume 8.2 FL (6.5-10.1) Neutrophils (%) (Auto) 61.9 % (45.0-75.0) Lymphocytes (%) (Auto) 16.8 % (20.0-45.0) L Monocytes (%) (Auto) 13.3 % (1.0-10.0) H Eosinophils (%) (Auto) 5.7 % (0.0-3.0) H Basophils (%) (Auto) 2.3 % (0.0-2.0) H Sodium Level 133 MMOL/L (136-145) L Potassium Level 3.6 MMOL/L (3.5-5.1) Chloride Level 94 MMOL/L (98-107) L Carbon Dioxide Level 31 MMOL/L (21-32) Anion Gap 8 mmol/L (5-15) Blood Urea Nitrogen 35 mg/dL (7-18) H Creatinine 5.9 MG/DL (0.55-1.30) H Estimat Glomerular Filtration Rate 8.5 mL/min (>60) Glucose Level 107 MG/DL (74-106) H Calcium Level 8.4 MG/DL (8.5-10.1) L Phosphorus Level 3.6 MG/DL (2.5-4.9) Total Bilirubin 0.5 MG/DL (0.2-1.0) Aspartate Amino Transf (AST/SGOT) 23 U/L (15-37) Alanine Aminotransferase (ALT/SGPT) 16 U/L (12-78) Alkaline Phosphatase 59 U/L (46-116) C-Reactive Protein, Quantitative 5.5 mg/dL (0.00-0.90) H Total Protein 6.0 G/DL (6.4-8.2) L Albumin 2.8 G/DL (3.4-5.0) L Globulin 3.2 g/dL Albumin/Globulin Ratio 0.9 (1.0-2.7) L Current Medications Medications (Trade) Dose Ordered Sig/Jesus Route PRN Reason Start Time Stop Time Status Last Admin Dose Admin Acetaminophen (Tylenol) 500 mg Q4H PRN ORAL Temp >100.5 05/02/20 22:19 06/01/20 22:18 05/02/20 22:33 Acetaminophen/ Hydrocodone Bitart ([place] 5/325) 1 tab Q4H PRN ORAL Pain 3-6 04/28/20 19:30 05/04/20 19:29 04/29/20 06:19 Aspirin (ASA) 81 mg DAILY ORAL 04/29/20 09:00 06/08/20 08:59 05/03/20 08:55 Atorvastatin Calcium (Lipitor) 40 mg BEDTIME ORAL 04/28/20 21:00 07/24/20 20:59 05/02/20 20:18 Chlorhexidine Gluconate (Cira-Hex 2%) 1 applic DAILY@2000 TOPIC 04/28/20 20:00 07/22/20 19:59 05/02/20 20:17 Dextrose (Dextrose 50%) 25 ml Q30M PRN IV Hypoglycemia 04/29/20 23:30 07/28/20 23:29 Dextrose (Dextrose 50%) 50 ml Q30M PRN IV Hypoglycemia 04/29/20 23:30 07/28/20 23:29 Docusate Sodium (Colace) 100 mg THREE TIMES A DAY ORAL 04/29/20 13:00 05/29/20 12:59 05/03/20 13:22 Epoetin Jose (Epoetin Jose(ESRD on dialysis)) 10,000 unit SUN-SUN-SUN SUBQ 04/30/20 21:00 07/27/20 20:59 04/30/20 21:00 Folic Acid (Folate) 1 mg DAILY ORAL 04/29/20 09:00 05/26/20 08:59 05/03/20 08:55 Heparin Sodium (Porcine) (Heparin 5000 units/ml) 5,000 units EVERY 12 HOURS SUBQ 04/28/20 21:00 06/12/20 20:59 05/03/20 08:58 Hydralazine HCl (Apresoline) 25 mg Q4H PRN ORAL For blood pressure over 160 sy 04/28/20 19:45 07/24/20 19:36 Hydromorphone HCl (Dilaudid) 0.5 mg Q4H PRN SUBQ Pain 7-04/28/20 19:45 05/04/20 19:44 Insulin Aspart (NovoLOG) BEFORE MEALS AND HS SUBQ 05/02/20 11:30 07/31/20 11:29 05/02/20 20:25 Lansoprazole (Prevacid) 30 mg BIAC ORAL 05/03/20 16:30 06/02/20 16:29 Meropenem 500 mg/ Sodium Chloride 55 ml @ 110 mls/hr Q24H IVPB 05/03/20 00:00 05/08/20 00:00 05/02/20 23:39 Midodrine (Pro-Amatine) 10 mg THREE TIMES A DAY ORAL 04/29/20 09:00 07/25/20 10:29 05/03/20 08:55 Ondansetron HCl (Zofran) 4 mg Q6H PRN IVP Nausea & Vomiting 04/28/20 19:45 05/25/20 19:37 05/03/20 06:23 Sevelamer Carbonate (Renvela) 800 mg THREE TIMES A DAY ORAL 04/29/20 09:00 07/23/20 08:59 05/03/20 13:21 Vancomycin HCl ([facility] pharmacy to dose) 1 ea DAILY PRN MISC Per rx protocol 04/28/20 19:45 05/28/20 19:44 Kathia Lei M.D. May 03, 2020 15:39
[2020-05-03 16:00] VITALS: BP 116/53
--- NOTE | 2020-05-03 16:30 | NUR ---
NURSE NOTES: pt bs 153 but insulin held because she has been running low all day and is about to start dialysis. Will inform the night nurse.
--- NOTE | 2020-05-03 17:03 | Diagnostic Imaging Report ---
Indication: Renal failure. Planning upper extremity AV access. Technique: Noninvasive Vascular Mapping Comparison: None Findings: Right: The right internal jugular vein is patent and normally compressible with normal color flow. Imaged portions of the right subclavian vein are patent with normal color flow. Imaged portions of the right axillary vein are patent with normal compressibility and demonstrable color flow. Right brachial vein is patent and normally compressible with normal color flow. Imaged portions of the right brachial, radial and ulnar arteries are patent. Right Cephalic vein measures less than 1 mm in the upper arm. Right Cephalic vein of the forearm is not visualized. Right basilic vein is patent and normally compressible. In the upper arm the basilic vein measures approximately 5 mm diameter and approximately 4 mm diameter in the distal arm. Left: The left internal jugular vein is patent and normally compressible with normal color flow. Imaged portions of the left subclavian vein appear patent. Left axillary vein is patent and normally compressible. Visualized portions of the left brachial vein appear patent. Visualized portions of the right brachial, radial and ulnar arteries are patent. Subcutaneous edema is noted. A basilic vein AV fistula is noted on the left. Imaged portions appear patent. The cephalic vein appears small in caliber but is patent. IMPRESSION: Right cephalic vein is very small in caliber and not visualized in the peripheral aspects of the arm. Otherwise, visualized veins in the bilateral upper extremities are patent. Visualized portions of the left upper extremity basilic vein AV fistula appear patent.
--- NOTE | 2020-05-03 18:35 | NUR ---
SWALLOW STATUS/DYSPHAGIA MANAGEMENT PATIENT CLEARED FOR ST INTERVENTION BY VIKAS LOPEZ. PATIENT RECEIVED WITH HER HEAD OF BED ELEVATED, SHE WAS ALERT, VERBAL, AMENABLE TO ST INTERVENTION. PATIENT PROVIDED WITH P.O. TRIALS OF THIN LIQUID AND MECHANICAL SOFT SOLIDS. SHE COMPLAINED ABOUT THE TEXTURE AND HAS A HISTORY OF REFUSING MEALS. WITH MULTIPLE P.O. TRIALS OF THIN LIQUIDS VIA STRAW, PATIENT HAD TO BE CUED TO NOT BE IMPULSIVE WITH SEQUENTIAL SIPS. DURING THESE TRIALS HER VOCAL QUALITY REMAINED CLEAR. NO COUGH OR THROAT CLEAR OBSERVED. SHE REPORTED THAT SHE LIVES AT HOME WITH HER DAUGHTER. HER DECREASED MENTATION PREVENTED HER FROM INDEPENDENTLY RECALLING MEALTIME PRECAUTIONS WHICH HAD BEEN POSTED AT BEDSIDE TO MINIMIZE RISK OF ASPIRATION. CLINICIAN REVIEWED PRECAUTIONS BUT PATIENT HAD DIFFICULTY RETAINING THE INFORMATION. CLEARLY SHE NEEDS SUPERVISED/ASSISTED P.O. RECOMMENDATIONS: 1. CONTINUE CURRENT DIET WITH ADVANCE TEXTURE TRIALS WITH STREETCAR OPERATOR 2. SUPERVISED P.O. 3. CONTINUE TO REVIEW/REINFORCE MEALTIME PRECAUTIONS WITH PATIENT 4. ST TO CONTINUE TO FOLLOWUP WITH DIET TEXTURE ADJUSTMENTS POSSIBLE THANK YOU FOR THIS REFERRAL.
--- NOTE | 2020-05-03 19:28 | NUR ---
NURSE NOTES: Received report from VIKAS Eason. Patient is awake, alert and oriented x 2. On renal diet, mechanical soft, thin liquids, crush medications. court recording monitor is in placed, shows A-paced without chest pain reported. On oxygen via nasal cannula @ 2lpm. With left chest pacemaker and right chest Perma-catheter. Patient is bedfast, on fall precaution. Safety measures are in placed, bed in lowest and locked position, side rails up x 2. Call light button and bedside table within reach, instructed to call for any assistance needed. Will continue plan of care.
--- NOTE | 2020-05-03 19:31 | NUR ---
HAND-OFF: Report given to Layla BEAN. Patient stable. Plan of care endorsed. Dialysis just finished with 500mL in though RT chest permacath. Mapping completed. aluminum molder spoke with Dr. Fam who confirmed that LT AV shunt is functioning with both bruit and thrill present but plan is still potentially to insert new. LT AV shunt will be used on Sunday to assess need for new shunt.
--- NOTE | 2020-05-03 19:58 | Cardiology Progress Note ---
Assessment/Plan Assessment/Plan 1. Hypotension, resolved, likely caused by S. Capitis, 2D echo shows normal LV systolic function. 2. Slight elevation of troponin I level due to hypotension/shock. Continue ASA and atorvastatin. 3. Paroxysmal atrial fibrillation. Continue amiodarone and apixaban. 4. History of CVA with left hemiparesis. 5. Hypoxic hypercarbic respiratory failure. 6. Dual chamber pacemaker, atrial paced, ventricular sensed. Subjective Subjective Atrial paced ventricular sensed at rate of 60. On NC oxygen. Objective Last 24 Hour Vital Signs Date Time Temp Pulse Resp B/P (MAP) Pulse Ox O2 Delivery O2 Flow Rate FiO2 05/03/20 16:00 98.1 62 18 116/53 (74) 97 05/03/20 16:00 60 05/03/20 12:00 97.9 70 18 124/62 (82) 99 05/03/20 12:00 60 05/03/20 09:00 Nasal Cannula 2.0 Nasal Cannula 2.0 Nasal Cannula 2.0 05/03/20 08:00 60 05/03/20 08:00 98.0 55 18 100/29 (52) 99 05/03/20 04:00 97.7 60 20 118/43 (68) 98 05/03/20 04:00 60 05/02/20 23:54 99.0 60 20 134/47 (76) 100 05/02/20 23:53 60 05/02/20 23:03 98.8 05/02/20 21:00 Nasal Cannula 2.0 Nasal Cannula 2.0 Nasal Cannula 2.0 05/02/20 20:00 101.5 60 20 106/42 (63) 98 05/02/20 20:00 60 Intake and Output 05/02/20 05/03/20 19:00 07:00 Intake Total 600 ml 120 ml Balance 600 ml 120 ml Intake Oral 600 ml Other 120 ml # Bowel Movements 1 2D Echo: LVEF 60%, JENY, Severe MO, RVSP 61 mmHg Laboratory Tests Test 05/03/20 07:00 White Blood Count 7.2 K/UL (4.8-10.8) Red Blood Count 2.93 M/UL (4.20-5.40) L Hemoglobin 8.8 G/DL (12.0-16.0) L Hematocrit 27.6 % (37.0-47.0) L Mean Corpuscular Volume 94 FL (80-99) Mean Corpuscular Hemoglobin 30.1 PG (27.0-31.0) Mean Corpuscular Hemoglobin Concent 32.0 G/DL (32.0-36.0) Red Cell Distribution Width 15.3 % (11.6-14.8) H Platelet Count 164 K/UL (150-450) Mean Platelet Volume 8.2 FL (6.5-10.1) Neutrophils (%) (Auto) 61.9 % (45.0-75.0) Lymphocytes (%) (Auto) 16.8 % (20.0-45.0) L Monocytes (%) (Auto) 13.3 % (1.0-10.0) H Eosinophils (%) (Auto) 5.7 % (0.0-3.0) H Basophils (%) (Auto) 2.3 % (0.0-2.0) H Sodium Level 133 MMOL/L (136-145) L Potassium Level 3.6 MMOL/L (3.5-5.1) Chloride Level 94 MMOL/L (98-107) L Carbon Dioxide Level 31 MMOL/L (21-32) Anion Gap 8 mmol/L (5-15) Blood Urea Nitrogen 35 mg/dL (7-18) H Creatinine 5.9 MG/DL (0.55-1.30) H Estimat Glomerular Filtration Rate 8.5 mL/min (>60) Glucose Level 107 MG/DL (74-106) H Calcium Level 8.4 MG/DL (8.5-10.1) L Phosphorus Level 3.6 MG/DL (2.5-4.9) Total Bilirubin 0.5 MG/DL (0.2-1.0) Aspartate Amino Transf (AST/SGOT) 23 U/L (15-37) Alanine Aminotransferase (ALT/SGPT) 16 U/L (12-78) Alkaline Phosphatase 59 U/L (46-116) C-Reactive Protein, Quantitative 5.5 mg/dL (0.00-0.90) H Total Protein 6.0 G/DL (6.4-8.2) L Albumin 2.8 G/DL (3.4-5.0) L Globulin 3.2 g/dL Albumin/Globulin Ratio 0.9 (1.0-2.7) L Objective HEENT: Atraumatic, normocephalic. Anicteric. Pupils are equal, round, and reactive to light and accommodation. Extraocular muscles intact. NECK: JVP cannot be assessed. No carotid bruit. Carotid upstroke is 2+ bilaterally. CARDIOVASCULAR: Normal S1, S2. There is 2/6 mid systolic murmur at the left sternal border. PMI is at fourth intercostal space at the midclavicular line, + pacemaker pocket left side. LUNGS: Bibasilar crackles. ABDOMEN: Soft, nontender, and nondistended. No hepatosplenomegaly. Positive bowel sounds. EXTREMITIES: Diminished dorsalis pedis pulses of 1+. There is diminished motor function on the left lower extremity and upper extremity. Triston Joy MD May 03, 2020 19:58
[2020-05-03 20:00] VITALS: BP 125/59
[2020-05-03] MEDS: Dyna-Hex 2% Top Sol 2oz TOPIC SCH (20:48)
[2020-05-03] MEDS: Atorvastatin 20mg tab ORAL SCH (20:49)
[2020-05-03] MEDS: Epoetin Alfa-EPBX(ESRD on dialysis)10,000 unit/ml vial SUBQ SCH (20:59)
[2020-05-03] MEDS: HYDROcodone/Acetamin 5/325 tab ORAL PRN (21:06)
--- NOTE | 2020-05-03 22:15 | NUR ---
NURSE NOTES: Received a phone call from Dr. Fam and he ordered to schedule patient for right arm dialysis shunt placement tomorrow. Dr. Fam also ordered to placed the patient on NPO post midnight, CBC, BMP, PT and PTT tomorrow a.m. Will call the family for consent.
--- NOTE | 2020-05-03 22:16 | NUR ---
NURSE NOTES: Spoke to Dr. Fam again and informed him about patient's IV site/access and he stated that not to remove the IV access on right AC.
--- NOTE | 2020-05-03 22:40 | NUR ---
NURSE NOTES: Called patient's daughter (Bambi) and informed her about patient's scheduled procedure tomorrow, verify the telephone consent with Mini Jackson RN. Consent secured at chart. Will continue to monitor the patient.
[2020-05-04] VITALS: BP 130/78
[2020-05-04] MEDS: Meropenem 500 MG in NS 55 ML IVPB SCH ×2 (00:07→23:45)
[2020-05-04] MEDS: NovoLOG Insulin Flexpen SUBQ SCH ×4 (06:15→20:48)
[2020-05-04] MEDS: HYDROcodone/Acetamin 5/325 tab ORAL PRN ×2 (06:15→13:07)
--- NOTE | 2020-05-04 06:45 | Anethesia Preoperative Eval ---
Anesthesia Pre-op PMH/ROS General Date of Evaluation: May 04, 2020 Time of Evaluation: 06:01 Anesthesiologist: Richa ASA Score: ASA 3 Mallampati Score Class I : Soft palate, uvula, fauces, pillars visible Class II: Soft palate, uvula, fauces visible Class III: Soft palate, base of uvula visible Class IV: Only hard plate visible Mallampati Classification: Class III Surgeon: Cristel Diagnosis: ESRD Surgical Procedure: R Arm AV Shunt Placement Anesthesia History: none Family History: no anesthesia problems Allergies: Coded Allergies: PENICILLINS (Verified Allergy, Unknown, 04/23/20) Tolerated Cefepime 04/23/20 Medications: see eMAR Patient NPO?: Yes Past Medical History Cardiovascular: Reports: HTN, CAD, arrhythmia - Pacemaker, other - CHF Pulmonary: Reports: asthma, COPD Gastrointestinal/Genitourinary: Reports: GERD, ESRD Neurologic/Psychiatric: Reports: CVA, depression/anxiety Endocrine: Reports: DM Hematology/Immune: Reports: anemia, other - Cervical CA Musculoskeletal/Integumentary: Reports: edema, other - Weakness Other: obesity - Morbid BMI 50 Anesthesia Pre-op Phys. Exam Physician Exam Last Vital Signs Date Time Temp Pulse Resp B/P (MAP) Pulse Ox O2 Delivery O2 Flow Rate FiO2 05/04/20 04:00 60 05/04/20 00:00 98.1 17 130/78 (95) 100 05/03/20 21:00 Nasal Cannula 1.0 Nasal Cannula 1.0 Nasal Cannula 1.0 05/01/20 19:33 28 Constitutional: NAD Neurologic: CN 2-12 intact Cardiovascular: RRR Respiratory: CTA Gastrointestinal: S/NT/ND Airway Exam Mallampati Score: Class III MO: limited ROM: limited Teeth: missing Anesthesia Pre-op A/P Labs Hematology Test 05/03/20 07:00 White Blood Count 7.2 K/UL (4.8-10.8) Red Blood Count 2.93 M/UL (4.20-5.40) L Hemoglobin 8.8 G/DL (12.0-16.0) L Hematocrit 27.6 % (37.0-47.0) L Mean Corpuscular Volume 94 FL (80-99) Mean Corpuscular Hemoglobin 30.1 PG (27.0-31.0) Mean Corpuscular Hemoglobin Concent 32.0 G/DL (32.0-36.0) Red Cell Distribution Width 15.3 % (11.6-14.8) H Platelet Count 164 K/UL (150-450) Mean Platelet Volume 8.2 FL (6.5-10.1) Neutrophils (%) (Auto) 61.9 % (45.0-75.0) Lymphocytes (%) (Auto) 16.8 % (20.0-45.0) L Monocytes (%) (Auto) 13.3 % (1.0-10.0) H Eosinophils (%) (Auto) 5.7 % (0.0-3.0) H Basophils (%) (Auto) 2.3 % (0.0-2.0) H Chemistry Test 05/03/20 07:00 05/03/20 20:44 05/04/20 06:14 Sodium Level 133 MMOL/L (136-145) L Potassium Level 3.6 MMOL/L (3.5-5.1) Chloride Level 94 MMOL/L (98-107) L Carbon Dioxide Level 31 MMOL/L (21-32) Anion Gap 8 mmol/L (5-15) Blood Urea Nitrogen 35 mg/dL (7-18) H Creatinine 5.9 MG/DL (0.55-1.30) H Estimat Glomerular Filtration Rate 8.5 mL/min (>60) Glucose Level 107 MG/DL (74-106) H Calcium Level 8.4 MG/DL (8.5-10.1) L Phosphorus Level 3.6 MG/DL (2.5-4.9) Total Bilirubin 0.5 MG/DL (0.2-1.0) Aspartate Amino Transf (AST/SGOT) 23 U/L (15-37) Alanine Aminotransferase (ALT/SGPT) 16 U/L (12-78) Alkaline Phosphatase 59 U/L (46-116) C-Reactive Protein, Quantitative 5.5 mg/dL (0.00-0.90) H Total Protein 6.0 G/DL (6.4-8.2) L Albumin 2.8 G/DL (3.4-5.0) L Globulin 3.2 g/dL Albumin/Globulin Ratio 0.9 (1.0-2.7) L POC Whole Blood Glucose 133 MG/DL (74-106) H 107 MG/DL (74-106) H Risk Assessment & Plan Assessment: ASA 3 Plan: GA Status Change Before Surgery: No Pre-Antibiotics Drug: Dickson Muniz MD May 04, 2020 06:45
--- NOTE | 2020-05-04 07:29 | NUR ---
HAND-OFF: Report given to VIKAS Crum. Patient is asleep on bed, in stable condition without complaints made at this time. Plan of care endorsed.
--- NOTE | 2020-05-04 07:48 | NUR ---
NURSE NOTES: Received patient in bed. Awake, A/O x2. On room air, respirations unlabored. Patient denies pain. IV in the Right AC, site intact. Right chest permacath noted. Left upper arm HD site intact. Purewick in place. Patient is NPO. Side rails up x2, bed low and locked.
[2020-05-04 08:00] VITALS: BP 106/34
[2020-05-04 08:45] LABS: BASOPHILS % (AUTO) 1.3 % (0.0-2.0); HEMATOCRIT 25.8 % (37.0-47.0); HEMOGLOBIN 8.2 G/DL (12.0-16.0); LYMPHOCYTES % (AUTO) 18.1 % (20.0-45.0); MEAN CORPUSCULAR VOLUME 95 FL (80-99); MONOCYTES % (AUTO) 13.4 % (1.0-10.0); NEUTROPHILS % (AUTO) 62.3 % (45.0-75.0); PLATELET COUNT 153 K/UL (150-450); RED BLOOD COUNT 2.73 M/UL (4.20-5.40); RED CELL DISTRIBUTION WIDTH 15.5 % (11.6-14.8); WHITE BLOOD COUNT 6.6 K/UL (4.8-10.8)
[2020-05-04] MEDS: Midodrine 10mg tab ORAL SCH ×3 (08:47→17:28)
[2020-05-04] MEDS: Docusate 100mg/10ml Liq ORAL SCH ×3 (08:47→17:15)
[2020-05-04] MEDS: Aspirin Baby 81mg ORAL SCH (08:50)
[2020-05-04] MEDS: Renvela 800mg Pkt ORAL SCH ×3 (08:52→17:15)
[2020-05-04] MEDS: Heparin 5000 units/ml inj SUBQ SCH ×2 (08:52→20:46)
[2020-05-04 09:06] LABS: ALANINE AMINOTRANSFERASE 12 U/L (12-78); ALBUMIN 2.5 G/DL (3.4-5.0); ALBUMIN/GLOBULIN RATIO 0.8 (1.0-2.7); ALKALINE PHOSPHATASE 52 U/L (46-116); ANION GAP 5 mmol/L (5-15); ASPARTATE AMINO TRANSFERASE 19 U/L (15-37); BILIRUBIN,TOTAL 0.5 MG/DL (0.2-1.0); BLOOD UREA NITROGEN 25 mg/dL (7-18); CALCIUM 8.6 MG/DL (8.5-10.1); CARBON DIOXIDE 34 MMOL/L (21-32); CHLORIDE 96 MMOL/L (98-107); CREATININE 4.2 MG/DL (0.55-1.30); POTASSIUM 3.1 MMOL/L (3.5-5.1); SODIUM 135 MMOL/L (136-145)
[2020-05-04 09:28] LABS: PHOSPHORUS 2.4 MG/DL (2.5-4.9)
--- NOTE | 2020-05-04 10:14 | Pre-Procedure Note/Attestation ---
Pre-Procedure Note/Attestation Complete Prior to Procedure Planned Procedure: right Procedure Narrative: right arm dialysis shunt placement Indications for Procedure Pre-Operative Diagnosis: ESRD Attestation I attest that I discussed the nature of the procedure; its benefits; risks and complications; and alternatives (and the risks and benefits of such alternatives ), prior to the procedure, with the patient (or the patient's legal customer counter representative). I attest that, if there was a reasonable possibility of needing a blood transfusion, the patient (or the patient's legal customer counter representative) was given the [facility] standardized written summary, pursuant to the Alvaro Judit Blood Safety Act ([place] Health and Safety Code # 1645, as amended). I attest that I re-evaluated the patient just prior to the surgery and that there has been no change in the patient's H&P, except as documented below: Eben Fam MD May 04, 2020 10:14
--- NOTE | 2020-05-04 10:20 | NUR ---
NURSE NOTES: [facility] called and voicemail left regarding dialysis scheduled for tomorrow. Will call again later to ensure they will be coming in tomorrow.
--- NOTE | 2020-05-04 10:21 | Nephrology Progress Note ---
Assessment/Plan Problem List: (1) ESRD (end stage renal disease) (2) Pacemaker (3) Diabetic nephropathy (4) Cellulitis of left foot (5) Anemia in chronic kidney disease (CKD) (6) History of CVA (cerebrovascular accident) (7) History of atrial fibrillation Plan May 04: Dialysis tomorrow. Due for placement of vascular access. Stable from renal standpoint of view. May 03: Due for dialysis today. Hemoglobin higher at 8.8 today. Continue per consultants. May 02: Dialyzed yesterday. Will order dialysis tomorrow. 1 unit blood transfusion for low hemoglobin. Continue rest of medications. May 01: Patient due for dialysis today. Continue to monitor renal parameters and dialyze as needed. Continue per ID. Will check lab tomorrow. April 30: Patient due for insertion of a permacath today. Will arrange for dialysis tomorrow. Blood cultures remain negative. COVID-19 test negative. Discussed with RN. April 29: Permacath was taken out yesterday. Will place the catheter tomorrow. Blood cultures negative so far. Continue per consultants. April 28: Dialyzed yesterday. Will remove permacath today. Will do surveillance blood culture. Will aim to put catheter back in 48 hours. April 27: Due for dialysis today. Potassium 5.6. Will give Kayexalate. Blood pressure better under control. Continue per consultants. Also as per ID recommendation based on the blood culture results will remove the permacath tomorrow and will send the tip for culture. Will aim to have another catheter in 48 hours later. In the interim we will do surveillance blood culture. Patient received dialysis last evening for hyperkalemia. Patient had to be transferred to ICU for low blood pressure despite of multiple fluid challenges. Currently in ICU blood pressure 85-90 systolic. Patient on no blood pressure medication. Troponin I slightly elevated. 2D echocardiogram pending. Will start midodrine. Will aim to dialyze tomorrow. Monitor H&H and renal parameters and electrolytes Antibiotic per ID Pain medication adjusted Continue per consultants Subjective ROS Limited/Unobtainable: No Objective Objective Last 24 Hour Vital Signs Date Time Temp Pulse Resp B/P (MAP) Pulse Ox O2 Delivery O2 Flow Rate FiO2 05/04/20 09:17 Nasal Cannula 1.0 Nasal Cannula 1.0 Nasal Cannula 1.0 05/04/20 08:00 97.5 76 20 106/34 (58) 100 05/04/20 08:00 60 05/04/20 04:00 60 05/04/20 00:00 98.1 60 17 130/78 (95) 100 05/04/20 00:00 60 05/03/20 21:00 Nasal Cannula 1.0 Nasal Cannula 1.0 Nasal Cannula 1.0 05/03/20 20:00 97.9 59 17 125/59 (81) 100 05/03/20 20:00 60 05/03/20 16:00 98.1 62 18 116/53 (74) 97 05/03/20 16:00 60 05/03/20 12:00 97.9 70 18 124/62 (82) 99 05/03/20 12:00 60 Intake and Output 05/03/20 05/04/20 19:00 07:00 Intake Total 240 ml Balance 240 ml Intake Oral 240 ml Laboratory Tests 05/03/20 20:44: POC Whole Blood Glucose 133H 05/04/20 06:14: POC Whole Blood Glucose 107H 05/04/20 07:55: White Blood Count 6.6, Red Blood Count 2.73L, Hemoglobin 8.2L, Hematocrit 25.8L , Mean Corpuscular Volume 95, Mean Corpuscular Hemoglobin 30.1, Mean Corpuscular Hemoglobin Concent 31.8L, Red Cell Distribution Width 15.5H, Platelet Count 153, Mean Platelet Volume 8.0, Neutrophils (%) (Auto) 62.3, Lymphocytes (%) (Auto) 18.1L, Monocytes (%) (Auto) 13.4H, Eosinophils (%) (Auto ) 5.0H, Basophils (%) (Auto) 1.3, Prothrombin Time 11.3, Prothromb Time International Ratio 1.0, Activated Partial Thromboplast Time 29, Sodium Level 135L, Potassium Level 3.1L, Chloride Level 96L, Carbon Dioxide Level 34H, Anion Gap 5, Blood Urea Nitrogen 25H, Creatinine 4.2H, Estimat Glomerular Filtration Rate 12.7, Glucose Level 93, Calcium Level 8.6, Phosphorus Level 2.4L, Total Bilirubin 0.5, Aspartate Amino Transf (AST/SGOT) 19, Alanine Aminotransferase ( ALT/SGPT) 12, Alkaline Phosphatase 52, C-Reactive Protein, Quantitative 3.9H, Total Protein 5.5L, Albumin 2.5L, Globulin 3.0, Albumin/Globulin Ratio 0.8L, Random Vancomycin Level 19.8 Height (Feet): 5 Height (Inches): 5.00 Weight (Pounds): 295 General Appearance: no apparent distress Respiratory/Chest: lungs clear Abdomen: soft Objective No change Manas Stephenson MD May 04, 2020 10:21
--- NOTE | 2020-05-04 10:47 | Surgery Progress Note ---
Surgery Progress Note Subjective Additional Comments labs noted electrolytes being replaced. no n/v/f/c Objective Last 24 Hour Vital Signs Date Time Temp Pulse Resp B/P (MAP) Pulse Ox O2 Delivery O2 Flow Rate FiO2 05/04/20 09:17 Nasal Cannula 1.0 Nasal Cannula 1.0 Nasal Cannula 1.0 05/04/20 08:00 97.5 76 20 106/34 (58) 100 05/04/20 08:00 60 05/04/20 04:00 60 05/04/20 00:00 98.1 60 17 130/78 (95) 100 05/04/20 00:00 60 05/03/20 21:00 Nasal Cannula 1.0 Nasal Cannula 1.0 Nasal Cannula 1.0 05/03/20 20:00 97.9 59 17 125/59 (81) 100 05/03/20 20:00 60 05/03/20 16:00 98.1 62 18 116/53 (74) 97 05/03/20 16:00 60 05/03/20 12:00 97.9 70 18 124/62 (82) 99 05/03/20 12:00 60 I&O Intake and Output 05/03/20 05/04/20 19:00 07:00 Intake Total 240 ml Balance 240 ml Intake Oral 240 ml Dressing: dry Cardiovascular: RSR Respiratory: decreased breath sounds Abdomen: soft, non-tender, present bowel sounds Extremities: edema, no cyanosis Laboratory Tests Test 05/03/20 20:44 05/04/20 06:14 05/04/20 07:55 POC Whole Blood Glucose 133 MG/DL (74-106) H 107 MG/DL (74-106) H White Blood Count 6.6 K/UL (4.8-10.8) Red Blood Count 2.73 M/UL (4.20-5.40) L Hemoglobin 8.2 G/DL (12.0-16.0) L Hematocrit 25.8 % (37.0-47.0) L Mean Corpuscular Volume 95 FL (80-99) Mean Corpuscular Hemoglobin 30.1 PG (27.0-31.0) Mean Corpuscular Hemoglobin Concent 31.8 G/DL (32.0-36.0) L Red Cell Distribution Width 15.5 % (11.6-14.8) H Platelet Count 153 K/UL (150-450) Mean Platelet Volume 8.0 FL (6.5-10.1) Neutrophils (%) (Auto) 62.3 % (45.0-75.0) Lymphocytes (%) (Auto) 18.1 % (20.0-45.0) L Monocytes (%) (Auto) 13.4 % (1.0-10.0) H Eosinophils (%) (Auto) 5.0 % (0.0-3.0) H Basophils (%) (Auto) 1.3 % (0.0-2.0) Prothrombin Time 11.3 SEC (9.30-11.50) Prothromb Time International Ratio 1.0 (0.9-1.1) Activated Partial Thromboplast Time 29 SEC (23-33) Sodium Level 135 MMOL/L (136-145) L Potassium Level 3.1 MMOL/L (3.5-5.1) L Chloride Level 96 MMOL/L (98-107) L Carbon Dioxide Level 34 MMOL/L (21-32) H Anion Gap 5 mmol/L (5-15) Blood Urea Nitrogen 25 mg/dL (7-18) H Creatinine 4.2 MG/DL (0.55-1.30) H Estimat Glomerular Filtration Rate 12.7 mL/min (>60) Glucose Level 93 MG/DL (74-106) Calcium Level 8.6 MG/DL (8.5-10.1) Phosphorus Level 2.4 MG/DL (2.5-4.9) L Total Bilirubin 0.5 MG/DL (0.2-1.0) Aspartate Amino Transf (AST/SGOT) 19 U/L (15-37) Alanine Aminotransferase (ALT/SGPT) 12 U/L (12-78) Alkaline Phosphatase 52 U/L (46-116) C-Reactive Protein, Quantitative 3.9 mg/dL (0.00-0.90) H Total Protein 5.5 G/DL (6.4-8.2) L Albumin 2.5 G/DL (3.4-5.0) L Globulin 3.0 g/dL Albumin/Globulin Ratio 0.8 (1.0-2.7) L Random Vancomycin Level 19.8 ug/mL Plan Problems: (1) Diabetic nephropathy (2) Cellulitis of left foot Assessment & Plan: Pt presented on admission with Moisture Intertrigo Bilat Breasts and Abdominal folds. Unstageable Pressure Injury Lateral L heel (L) 2.2cm x (W)2.2cm. Base of wound is 80% soft necrosis,10% slough, remaining 10% monique.Epibole approx 50% borders,50% pink. Small amt Brownish exudate. Wound is malodorous. Loose non-viable tissue removed.Base of wound now 90% slough,10% monique. Odor improved post cleansing. Therahoney applied with small 2x2 packing, covered with ABD pad and wrapped with Kerlix until orders for wound care can be clarified with DPM. Both feet are cold to touch and dusky at distal aspect including metatarsals both feet;dorsum L 3rd metatarsal is black. Dry eschar noted to L 1st metatarsal head(L)1.1cm x (W)1.6cm.Pt complained of pain LLE and L foot to slightest touch or movement R heel is boggy and pale. Moisture Intertrigo skin folds both breasts and abdominal folds. Both areas are malodorous. Cleansed with soap and water and gently dried. Phytoplex Antifungal Powder applied to affected areas. R and L groin are moist and erythematous. Moisture Barrier Paste applied. Darker skin tone with two small indurated areas at Sacrococcygeal area noted. Pt complained site tender when minimally palpated. In close proximity above coccyx at cleft is resolving Pressure injury. Kensal epithelial noted. An area of hyperpigmentation with pink epithelial medially noted to L Ischial tuberosity. Hyperpigmentation noted to R Ischium. Tx.Plan: Wash and dry skin folds both breasts and Abdominal folds. Apply Light Dusting of Antifungal powder Twice Daily. Apply Moisture Barrier Paste to Bilat groin and Buttocks with each Incontinence care. Cover Sacrum with Optifoam drsg. Change every 3 days and prn. Apply Cavilon Skin Barrier to bilateral Heel and Malleoli. Cover with Optifoam drsg. Change every 7 days and prn. Reposition at least every 2hours or as tolerated. Off-load heels with pillow. Flow images demonstrate overall asymmetrically increased flow in the right foot, particularly in the region of the calcaneal tuberosity, midfoot and forefoot. There is equivocally slightly increased flow in the left heel. Blood pool images likewise demonstrate increased activity on the right, involving the midfoot and forefoot. Very subtle slightly increased activity is seen in the region of the left calcaneal tuberosity. On the static images, there is very mildly prominent activity in the left calcaneal tuberosity, but this is actually less striking than on the contralateral side. Ill-defined increased activity is seen in the left midfoot and in the right midfoot and forefoot. There is some increased activity in the region of the right metatarsophalangeal joint which is probably degenerative in nature. Impression: No significant abnormality in the left heel to suggest osteomyelitis of the location of clinically described left heel wound. Mild bilateral abnormal uptake, as detailed above, likely reflecting degenerative changes PATIENT PROVIDED WITH P.O. TRIALS OF THIN LIQUID AND MECHANICAL SOFT SOLIDS. SHE COMPLAINED ABOUT THE TEXTURE AND HAS A HISTORY OF REFUSING MEALS. WITH MULTIPLE P.O. TRIALS OF THIN LIQUIDS VIA STRAW, PATIENT HAD TO BE CUED TO NOT BE IMPULSIVE WITH SEQUENTIAL SIPS. DURING THESE TRIALS HER VOCAL QUALITY REMAINED CLEAR. NO COUGH OR THROAT CLEAR OBSERVED. SHE REPORTED THAT SHE LIVES AT HOME WITH HER DAUGHTER. HER DECREASED MENTATION PREVENTED HER FROM INDEPENDENTLY RECALLING MEALTIME PRECAUTIONS WHICH HAD BEEN POSTED AT BEDSIDE TO MINIMIZE RISK OF ASPIRATION. CLINICIAN REVIEWED PRECAUTIONS BUT PATIENT HAD DIFFICULTY RETAINING THE INFORMATION. CLEARLY SHE NEEDS SUPERVISED/ASSISTED P.O. RECOMMENDATIONS: 1. CONTINUE CURRENT DIET WITH ADVANCE TEXTURE TRIALS WITH SALES PLANNER 2. SUPERVISED P.O. 3. CONTINUE TO REVIEW/REINFORCE MEALTIME PRECAUTIONS WITH PATIENT 4. ST TO CONTINUE TO FOLLOWUP WITH DIET TEXTURE ADJUSTMENTS POSSIBLE (3) Pacemaker (4) Anemia in chronic kidney disease (CKD) (5) History of CVA (cerebrovascular accident) (6) History of atrial fibrillation (7) ESRD (end stage renal disease) (8) COPD (chronic obstructive pulmonary disease) (9) Bradycardia (10) Diabetic nephropathy (11) Hypertensive kidney disease (12) Volume overload (13) Heel abrasion (14) Elevated troponin I level (15) Urinary tract infection due to Proteus (16) Dyspnea (17) Symptomatic anemia (18) Acute on chronic renal failure (19) Anemia (20) HTN (hypertension) Luis Alberto Cade May 04, 2020 10:47
--- NOTE | 2020-05-04 10:55 | General Progress Note ---
Assessment/Plan Status: stable, unchanged Assessment/Plan: S: appears comfortable. O: controlled pain . seen and examined in Tele unit. talks and communicate PHYSICAL EXAMINATION: HEAD AND NECK: Atraumatic and normocephalic. CHEST: Right IJ permcath in place, Clear to auscultation. HEART: S1, S2. Regular rate and rhythm. Bradycardic. MUSCULOSKELETAL: paraparesis. stage 3 decubitus wound in calcaneal region. NEUROLOGIC: The patient is awake and alert x 2. LABORATORY AND DIAGNOSTIC DATA: Labs dated 05/04/20 reviewed Imaging: bone scan dated April 28 reviewed ASSESSMENT: 1. Sepsis secondary to Gram positive coccidiema , likely line infection 2. Acute Hypoxemic respiratory failure, s/p rapid response assessment 2. Hypotension : ddx; adrenal insufficiency 3. HyperKalemia 2. Decubitus wound, enlarging and infected. 3. End-stage renal disease, on temporary PermCath hemodialysis access. 2. Paroxysmal atrial fibrillation, rate is stable. 3. Diabetes type 2. 4. Hypertension. 5. Hyperlipidemia. 6. CVA-history. 7. CHF-Diastolic type 8. Dementia. 8. Gastrointestinal and deep vein thrombosis prophylaxes. 9. Pain management 10. iron deficiency anemia Plan: Empirical abx initiated Notes from [id number] care reviewed Notified Dr Fam and D/w Dr Saavedra c/w Batsheva PRN breakthrough Consulte Hem onch Post Calcium/Novolog/D50 treatment with favorable response HD per nephrology will remove HD access post HD D/w Nephrology, ID and Vascular surgeon DC the eliquis in anticipation of Vascular procedures post reinsertion of PermCath D/W Dr Fam for revision of AV G-F D/W Rn to change the insulin regiment to avoid hypoglycemia One episode of fever, re cultured. Negative blood cultures x 5 days otherwise Proceed with Right sided AVG placement, as there is no medical contra- indication at this time. Cardiology, ID, pulmonary services notified about this plan of care Subjective Allergies: Coded Allergies: PENICILLINS (Verified Allergy, Unknown, 04/23/20) Tolerated Cefepime 04/23/20 Objective Last 24 Hour Vital Signs Date Time Temp Pulse Resp B/P (MAP) Pulse Ox O2 Delivery O2 Flow Rate FiO2 05/04/20 09:17 Nasal Cannula 1.0 Nasal Cannula 1.0 Nasal Cannula 1.0 05/04/20 08:00 97.5 76 20 106/34 (58) 100 05/04/20 08:00 60 05/04/20 04:00 60 05/04/20 00:00 98.1 60 17 130/78 (95) 100 05/04/20 00:00 60 05/03/20 21:00 Nasal Cannula 1.0 Nasal Cannula 1.0 Nasal Cannula 1.0 05/03/20 20:00 97.9 59 17 125/59 (81) 100 05/03/20 20:00 60 05/03/20 16:00 98.1 62 18 116/53 (74) 97 05/03/20 16:00 60 05/03/20 12:00 97.9 70 18 124/62 (82) 99 05/03/20 12:00 60 Intake and Output 05/03/20 05/04/20 19:00 07:00 Intake Total 240 ml Balance 240 ml Intake Oral 240 ml Laboratory Tests 05/03/20 20:44: POC Whole Blood Glucose 133H 05/04/20 06:14: POC Whole Blood Glucose 107H 05/04/20 07:55: White Blood Count 6.6, Red Blood Count 2.73L, Hemoglobin 8.2L, Hematocrit 25.8L , Mean Corpuscular Volume 95, Mean Corpuscular Hemoglobin 30.1, Mean Corpuscular Hemoglobin Concent 31.8L, Red Cell Distribution Width 15.5H, Platelet Count 153, Mean Platelet Volume 8.0, Neutrophils (%) (Auto) 62.3, Lymphocytes (%) (Auto) 18.1L, Monocytes (%) (Auto) 13.4H, Eosinophils (%) (Auto ) 5.0H, Basophils (%) (Auto) 1.3, Prothrombin Time 11.3, Prothromb Time International Ratio 1.0, Activated Partial Thromboplast Time 29, Sodium Level 135L, Potassium Level 3.1L, Chloride Level 96L, Carbon Dioxide Level 34H, Anion Gap 5, Blood Urea Nitrogen 25H, Creatinine 4.2H, Estimat Glomerular Filtration Rate 12.7, Glucose Level 93, Calcium Level 8.6, Phosphorus Level 2.4L, Total Bilirubin 0.5, Aspartate Amino Transf (AST/SGOT) 19, Alanine Aminotransferase ( ALT/SGPT) 12, Alkaline Phosphatase 52, C-Reactive Protein, Quantitative 3.9H, Total Protein 5.5L, Albumin 2.5L, Globulin 3.0, Albumin/Globulin Ratio 0.8L, Random Vancomycin Level 19.8 Height (Feet): 5 Height (Inches): 5.00 Weight (Pounds): 295 Danie Banegas MD May 04, 2020 10:55
[2020-05-04] MEDS ORDERED: Sodium Chloride for KCL Premix X 3hrs IV SCH (11:00)
--- NOTE | 2020-05-04 11:24 | Infectious Diseases Prog Note ---
Assessment/Plan Assessment: Fever 05/02 r/o recurrent bacteremia No leukocytosis 05/03 CXR: Mild vascular prominence unchanged. The lung chisholm are clear bilaterally. -05/02 Bcx p [employer] 04/25- due to hypotension and desaturation -hypoxic on ABG SEvere sepsis S. capitis bacteremia, persistent- likely HD line infection in the setting of sepsis -04/23 Bcx 1/ Staph capitis ; 04/25 Bcx 1 Staph capitis; 04/27 Bcx Neg x4 ( peripheral, HD line) -2d Echo: no vegetations seen Pulmonary edema vs PNA -04/30 CXR: Mild perihilar interstitial congestion, unchanged from 04/25/2020. -04/25 SARS-COV2 PCR neg -04/25 CXR: Perihilar opacities may represent pulmonary edema versus infectious/inflammatory process. Elevated trop L foot/ankle wound; no grossly infected- no OM on bone scan -04/28 Bone scan: No significant abnormality in the left heel to suggest osteomyelitis of the location of clinically described left heel wound. Mild bilateral abnormal uptake, as detailed above, likely reflecting degenerative changes -xray L foot/ankle: No acute findings in the left foot. 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 Will continue to follow along . Discussed with RN and Dr Huff updated daughter at the bedside on 05/03 Subjective Allergies: Coded Allergies: PENICILLINS (Verified Allergy, Unknown, 04/23/20) Tolerated Cefepime 04/23/20 afebrile >36hrs now at RA repeat Bcx pending more alert now Objective Last 24 Hour Vital Signs Date Time Temp Pulse Resp B/P (MAP) Pulse Ox O2 Delivery O2 Flow Rate FiO2 05/04/20 09:17 Nasal Cannula 1.0 Nasal Cannula 1.0 Nasal Cannula 1.0 05/04/20 08:00 97.5 76 20 106/34 (58) 100 05/04/20 08:00 60 05/04/20 04:00 60 05/04/20 00:00 98.1 60 17 130/78 (95) 100 05/04/20 00:00 60 05/03/20 21:00 Nasal Cannula 1.0 Nasal Cannula 1.0 Nasal Cannula 1.0 05/03/20 20:00 97.9 59 17 125/59 (81) 100 05/03/20 20:00 60 05/03/20 16:00 98.1 62 18 116/53 (74) 97 05/03/20 16:00 60 05/03/20 12:00 97.9 70 18 124/62 (82) 99 05/03/20 12:00 60 Height (Feet): 5 Height (Inches): 5.00 Weight (Pounds): 295 Cardiovascular: RSR Respiratory: decreased breath sounds Abdomen: soft, non-tender, present bowel sounds Extremities: no cyanosis Laboratory Tests Test 05/03/20 20:44 05/04/20 06:14 05/04/20 07:55 POC Whole Blood Glucose 133 MG/DL (74-106) H 107 MG/DL (74-106) H White Blood Count 6.6 K/UL (4.8-10.8) Red Blood Count 2.73 M/UL (4.20-5.40) L Hemoglobin 8.2 G/DL (12.0-16.0) L Hematocrit 25.8 % (37.0-47.0) L Mean Corpuscular Volume 95 FL (80-99) Mean Corpuscular Hemoglobin 30.1 PG (27.0-31.0) Mean Corpuscular Hemoglobin Concent 31.8 G/DL (32.0-36.0) L Red Cell Distribution Width 15.5 % (11.6-14.8) H Platelet Count 153 K/UL (150-450) Mean Platelet Volume 8.0 FL (6.5-10.1) Neutrophils (%) (Auto) 62.3 % (45.0-75.0) Lymphocytes (%) (Auto) 18.1 % (20.0-45.0) L Monocytes (%) (Auto) 13.4 % (1.0-10.0) H Eosinophils (%) (Auto) 5.0 % (0.0-3.0) H Basophils (%) (Auto) 1.3 % (0.0-2.0) Prothrombin Time 11.3 SEC (9.30-11.50) Prothromb Time International Ratio 1.0 (0.9-1.1) Activated Partial Thromboplast Time 29 SEC (23-33) Sodium Level 135 MMOL/L (136-145) L Potassium Level 3.1 MMOL/L (3.5-5.1) L Chloride Level 96 MMOL/L (98-107) L Carbon Dioxide Level 34 MMOL/L (21-32) H Anion Gap 5 mmol/L (5-15) Blood Urea Nitrogen 25 mg/dL (7-18) H Creatinine 4.2 MG/DL (0.55-1.30) H Estimat Glomerular Filtration Rate 12.7 mL/min (>60) Glucose Level 93 MG/DL (74-106) Calcium Level 8.6 MG/DL (8.5-10.1) Phosphorus Level 2.4 MG/DL (2.5-4.9) L Total Bilirubin 0.5 MG/DL (0.2-1.0) Aspartate Amino Transf (AST/SGOT) 19 U/L (15-37) Alanine Aminotransferase (ALT/SGPT) 12 U/L (12-78) Alkaline Phosphatase 52 U/L (46-116) C-Reactive Protein, Quantitative 3.9 mg/dL (0.00-0.90) H Total Protein 5.5 G/DL (6.4-8.2) L Albumin 2.5 G/DL (3.4-5.0) L Globulin 3.0 g/dL Albumin/Globulin Ratio 0.8 (1.0-2.7) L Random Vancomycin Level 19.8 ug/mL Current Medications Medications (Trade) Dose Ordered Sig/Jesus Route PRN Reason Start Time Stop Time Status Last Admin Dose Admin Acetaminophen (Tylenol) 500 mg Q4H PRN ORAL Temp >100.5 05/02/20 22:19 06/01/20 22:18 05/02/20 22:33 Acetaminophen/ Hydrocodone Bitart ([place] 5/325) 1 tab Q4H PRN ORAL Pain 3-6 04/28/20 19:30 05/04/20 19:29 05/04/20 06:15 Aspirin (ASA) 81 mg DAILY ORAL 04/29/20 09:00 06/08/20 08:59 05/03/20 08:55 Atorvastatin Calcium (Lipitor) 40 mg BEDTIME ORAL 04/28/20 21:00 07/24/20 20:59 05/03/20 20:49 Chlorhexidine Gluconate (Cira-Hex 2%) 1 applic DAILY@1999 TOPIC 04/28/20 20:00 07/22/20 19:59 05/03/20 20:48 Dextrose (Dextrose 50%) 25 ml Q30M PRN IV Hypoglycemia 04/29/20 23:30 07/28/20 23:29 Dextrose (Dextrose 50%) 50 ml Q30M PRN IV Hypoglycemia 04/29/20 23:30 07/28/20 23:29 Docusate Sodium (Colace) 100 mg THREE TIMES A DAY ORAL 04/29/20 13:00 05/29/20 12:59 05/04/20 08:47 Epoetin Jose (Epoetin Jose(ESRD on dialysis)) 10,000 unit SUN-SUN-SUN SUBQ 04/30/20 21:00 07/27/20 20:59 05/03/20 20:59 Folic Acid (Folate) 1 mg DAILY ORAL 04/29/20 09:00 05/26/20 08:59 05/04/20 08:47 Heparin Sodium (Porcine) (Heparin 5000 units/ml) 5,000 units EVERY 12 HOURS SUBQ 04/28/20 21:00 06/12/20 20:59 05/03/20 20:54 Hydralazine HCl (Apresoline) 25 mg Q4H PRN ORAL For blood pressure over 160 sy 04/28/20 19:45 07/24/20 19:36 Hydromorphone HCl (Dilaudid) 0.5 mg Q4H PRN SUBQ Pain 7-10 04/28/20 19:45 05/04/20 19:44 Insulin Aspart (NovoLOG) BEFORE MEALS AND HS SUBQ 05/02/20 11:30 07/31/20 11:29 05/02/20 20:25 Lansoprazole (Prevacid) 30 mg BIAC ORAL 05/03/20 16:30 06/02/20 16:29 05/04/20 06:15 Meropenem 500 mg/ Sodium Chloride 55 ml @ 110 mls/hr Q24H IVPB 05/03/20 00:00 05/08/20 00:00 05/04/20 00:07 Midodrine (Pro-Amatine) 10 mg THREE TIMES A DAY ORAL 04/29/20 09:00 07/25/20 10:29 05/04/20 08:47 Ondansetron HCl (Zofran) 4 mg Q6H PRN IVP Nausea & Vomiting 04/28/20 19:45 05/25/20 19:37 05/03/20 06:23 Potassium Chloride 100 ml @ 100 mls/hr Q1H IV 05/04/20 11:00 05/04/20 13:59 05/04/20 11:00 Sevelamer Carbonate (Renvela) 800 mg THREE TIMES A DAY ORAL 04/29/20 09:00 07/23/20 08:59 05/03/20 13:21 Sodium Chloride 300 ml @ 100 mls/hr Q3H IV 05/04/20 11:00 05/04/20 13:59 05/04/20 11:00 Vancomycin HCl (Vanco pharmacy to dose) 1 ea DAILY PRN MISC Per rx protocol 04/28/20 19:45 05/28/20 19:44 Vancomycin HCl 500 mg/Dextrose 110 ml @ 110 mls/hr ONCE ONCE IVPB 05/04/20 12:00 05/04/20 12:59 Kathia Lei M.D. May 04, 2020 11:24
--- NOTE | 2020-05-04 11:34 | NUR ---
NURSE NOTES: Per Dr. Fam, surgery cancelled for today. May resume diet. He will round and speak with patient.
[2020-05-04 12:00] VITALS: BP 137/49
[2020-05-04] MEDS ORDERED: Vancomycin 500mg/D5W 110ml IVPB ONE ×2 (12:00)
--- NOTE | 2020-05-04 12:00 | Pulmonology Progress Note ---
Subjective ROS Limited/Unobtainable: No Interval Events: None new Constitutional: Denies: no symptoms, fever, chills, fatigue, anorexia, drenching sweats, other HEENT: Repors: no symptoms Respiratory: Reports: no symptoms Cardiovascular: Reports: no symptoms Allergies: Coded Allergies: PENICILLINS (Verified Allergy, Unknown, 04/23/20) Tolerated Cefepime 04/23/20 Objective Last 24 Hour Vital Signs Date Time Temp Pulse Resp B/P (MAP) Pulse Ox O2 Delivery O2 Flow Rate FiO2 05/04/20 09:17 Nasal Cannula 1.0 Nasal Cannula 1.0 Nasal Cannula 1.0 05/04/20 08:00 97.5 76 20 106/34 (58) 100 05/04/20 08:00 60 05/04/20 04:00 60 05/04/20 00:00 98.1 60 17 130/78 (95) 100 05/04/20 00:00 60 05/03/20 21:00 Nasal Cannula 1.0 Nasal Cannula 1.0 Nasal Cannula 1.0 05/03/20 20:00 97.9 59 17 125/59 (81) 100 05/03/20 20:00 60 05/03/20 16:00 98.1 62 18 116/53 (74) 97 05/03/20 16:00 60 Intake and Output 05/03/20 05/04/20 19:00 07:00 Intake Total 240 ml Balance 240 ml Intake Oral 240 ml General Appearance: no acute distress HEENT: normocephalic Respiratory: chest wall non-tender Cardiovascular: normal peripheral pulses Abdomen: soft, non tender Laboratory Tests 05/03/20 20:44: POC Whole Blood Glucose 133H 05/04/20 06:14: POC Whole Blood Glucose 107H 05/04/20 07:55: White Blood Count 6.6, Red Blood Count 2.73L, Hemoglobin 8.2L, Hematocrit 25.8L , Mean Corpuscular Volume 95, Mean Corpuscular Hemoglobin 30.1, Mean Corpuscular Hemoglobin Concent 31.8L, Red Cell Distribution Width 15.5H, Platelet Count 153, Mean Platelet Volume 8.0, Neutrophils (%) (Auto) 62.3, Lymphocytes (%) (Auto) 18.1L, Monocytes (%) (Auto) 13.4H, Eosinophils (%) (Auto ) 5.0H, Basophils (%) (Auto) 1.3, Prothrombin Time 11.3, Prothromb Time International Ratio 1.0, Activated Partial Thromboplast Time 29, Sodium Level 135L, Potassium Level 3.1L, Chloride Level 96L, Carbon Dioxide Level 34H, Anion Gap 5, Blood Urea Nitrogen 25H, Creatinine 4.2H, Estimat Glomerular Filtration Rate 12.7, Glucose Level 93, Calcium Level 8.6, Phosphorus Level 2.4L, Total Bilirubin 0.5, Aspartate Amino Transf (AST/SGOT) 19, Alanine Aminotransferase ( ALT/SGPT) 12, Alkaline Phosphatase 52, C-Reactive Protein, Quantitative 3.9H, Total Protein 5.5L, Albumin 2.5L, Globulin 3.0, Albumin/Globulin Ratio 0.8L, Random Vancomycin Level 19.8 Current Medications Medications (Trade) Dose Ordered Sig/Jesus Route PRN Reason Start Time Stop Time Status Last Admin Dose Admin Acetaminophen (Tylenol) 500 mg Q4H PRN ORAL Temp >100.5 05/02/20 22:19 06/01/20 22:18 05/02/20 22:33 Acetaminophen/ Hydrocodone Bitart ([place] 5/325) 1 tab Q4H PRN ORAL Pain 3-6 04/28/20 19:30 05/04/20 19:29 05/04/20 06:15 Aspirin (ASA) 81 mg DAILY ORAL 04/29/20 09:00 06/08/20 08:59 05/03/20 08:55 Atorvastatin Calcium (Lipitor) 40 mg BEDTIME ORAL 04/28/20 21:00 07/24/20 20:59 05/03/20 20:49 Chlorhexidine Gluconate (Cira-Hex 2%) 1 applic DAILY@1999 TOPIC 04/28/20 20:00 07/22/20 19:59 05/03/20 20:48 Dextrose (Dextrose 50%) 25 ml Q30M PRN IV Hypoglycemia 04/29/20 23:30 07/28/20 23:29 Dextrose (Dextrose 50%) 50 ml Q30M PRN IV Hypoglycemia 04/29/20 23:30 07/28/20 23:29 Docusate Sodium (Colace) 100 mg THREE TIMES A DAY ORAL 04/29/20 13:00 05/29/20 12:59 05/04/20 08:47 Epoetin Jose (Epoetin Jose(ESRD on dialysis)) 10,000 unit SUN-SUN-SUN SUBQ 04/30/20 21:00 07/27/20 20:59 05/03/20 20:59 Folic Acid (Folate) 1 mg DAILY ORAL 04/29/20 09:00 05/26/20 08:59 05/04/20 08:47 Heparin Sodium (Porcine) (Heparin 5000 units/ml) 5,000 units EVERY 12 HOURS SUBQ 04/28/20 21:00 06/12/20 20:59 05/03/20 20:54 Hydralazine HCl (Apresoline) 25 mg Q4H PRN ORAL For blood pressure over 160 sy 04/28/20 19:45 07/24/20 19:36 Hydromorphone HCl (Dilaudid) 0.5 mg Q4H PRN SUBQ Pain 704/28/20 19:45 05/04/20 19:44 Insulin Aspart (NovoLOG) BEFORE MEALS AND HS SUBQ 05/02/20 11:30 07/31/20 11:29 05/02/20 20:25 Lansoprazole (Prevacid) 30 mg BIAC ORAL 05/03/20 16:30 06/02/20 16:29 05/04/20 06:15 Meropenem 500 mg/ Sodium Chloride 55 ml @ 110 mls/hr Q24H IVPB 05/03/20 00:00 05/08/20 00:00 05/04/20 00:07 Midodrine (Pro-Amatine) 10 mg THREE TIMES A DAY ORAL 04/29/20 09:00 07/25/20 10:29 05/04/20 08:47 Ondansetron HCl (Zofran) 4 mg Q6H PRN IVP Nausea & Vomiting 04/28/20 19:45 05/25/20 19:37 05/03/20 06:23 Potassium Chloride 100 ml @ 100 mls/hr Q1H IV 05/04/20 11:00 05/04/20 13:59 05/04/20 11:00 Sevelamer Carbonate (Renvela) 800 mg THREE TIMES A DAY ORAL 04/29/20 09:00 07/23/20 08:59 05/03/20 13:21 Sodium Chloride 300 ml @ 100 mls/hr Q3H IV 05/04/20 11:00 05/04/20 13:59 05/04/20 11:00 Vancomycin HCl (Vanco pharmacy to dose) 1 ea DAILY PRN MISC Per rx protocol 04/28/20 19:45 05/28/20 19:44 Vancomycin HCl 500 mg/Dextrose 110 ml @ 110 mls/hr ONCE ONCE IVPB 05/04/20 12:00 05/04/20 12:59 Assessment/Plan Assessment/Plan ASSESSMENT: 1. Mild pulmonary edema 2. Decubitus wound, 3. End-stage renal disease, on temporary PermCath hemodialysis access. 2. Paroxysmal atrial fibrillation, 3. Diabetes type 2. 4. Hypertension. 5. Hyperlipidemia. 6. CVA-history. 7. Dementia. Plan: Continue local wound care Will continue oxygen and pulmonary hygiene Broad spectrum abx HD per renal; Suraj Henriquez MD May 04, 2020 12:00
--- NOTE | 2020-05-04 12:21 | Hematology/Onc Progress Note ---
Assessment/Plan Assessment/Plan Assessment and Recs # Thombocytopenia is likely 2/2 Cellulitis of left foot --> as per id --> plt trend 150-->102-->92-->103-->133-->148->135->164->153 --> hold anticoag if plt <50 --> abx vanc/cefepime # Anemia is likely due to esrd, has been under care of Dr. Stephenson --> continue hd as needed --> with permacath in place on chest, no infection --> EPOGEN 4k dose 3 times a week started --> hgb trend 12-->9->8.1->7.7->8.8->8.2 --> as per renal # Hypercoagulable disorder with afib hx --> on eliquis which has been started --> no bleeding noted # ESRD (end stage renal disease) --> per renal care # Diabetic nephropathy --> wound care and endo recs --> a1c goal <8 # Dvt ppx heparin sq DW Rn and appreciate consultation Subjective HEENT: Denies: no symptoms, eye pain, blurred vision, tearing, double vision, ear pain, ear discharge, nose pain, nose congestion, throat pain, throat swelling, mouth pain, mouth swelling, other Cardiovascular: Denies: no symptoms, chest pain, edema, irregular heart rate, lightheadedness, palpitations, syncope, other Respiratory: Denies: no symptoms, cough, shortness of breath, SOB with excertion, SOB at rest, sputum, wheezing, other Gastrointestinal/Abdominal: Denies: no symptoms, abdomen distended, abdominal pain, black stools, tarry stools, blood in stool, constipated, diarrhea, difficulty swallowing, nausea, poor appetite, poor fluid intake, rectal bleeding , vomiting, other Genitourinary: Denies: no symptoms, burning, discharge, frequency, flank pain, hematuria, incontinence, pain, urgency, other Neurologic/Psychiatric: Denies: no symptoms, anxiety, depressed, emotional problems, headache, numbness, paresthesia, pre-existing deficit, seizure, tingling, tremors, weakness, other Endocrine: Denies: no symptoms, excessive sweating, flushing, intolerance to cold, intolerance to heat, increased hunger, increased thirst, increased urine, unexplained weight gain, unexplained weight loss, other Allergies: Coded Allergies: PENICILLINS (Verified Allergy, Unknown, 04/23/20) Tolerated Cefepime 04/23/20 Subjective 04/26 seen by renal, is for hd tomorrow, labs noted, plts are lower 04/27 labs noted, no bleeding, for hd, hgb currently lower at 9 04/28 meds noted, no bleeding, carlo rn, permcath to dc 04/29 labs still pending, no bleeding, remains forgetful, no bleeding 04/30 no major changes, no bleeding, cbc is noted 05/01 meds reviewed, no bleeding, labs noted, no night sweats 05/02 to undergo hd for tomorrow, no bleeding, labs noted hgb 7.7 05/03 remains on abx, and plts have improved, no bleeding 05/04 is to have arm dialysis placement today, no bleeding Objective Objective Current Medications Medications (Trade) Dose Ordered Sig/Jesus Route PRN Reason Start Time Stop Time Status Last Admin Dose Admin Acetaminophen (Tylenol) 500 mg Q4H PRN ORAL Temp >100.5 05/02/20 22:19 06/01/20 22:18 05/02/20 22:33 Acetaminophen/ Hydrocodone Bitart ([place] 5/325) 1 tab Q4H PRN ORAL Pain 3-6 04/28/20 19:30 05/04/20 19:29 05/04/20 06:15 Aspirin (ASA) 81 mg DAILY ORAL 04/29/20 09:00 06/08/20 08:59 05/03/20 08:55 Atorvastatin Calcium (Lipitor) 40 mg BEDTIME ORAL 04/28/20 21:00 07/24/20 20:59 05/03/20 20:49 Chlorhexidine Gluconate (Cira-Hex 2%) 1 applic DAILY@2000 TOPIC 04/28/20 20:00 07/22/20 19:59 05/03/20 20:48 Dextrose (Dextrose 50%) 25 ml Q30M PRN IV Hypoglycemia 04/29/20 23:30 07/28/20 23:29 Dextrose (Dextrose 50%) 50 ml Q30M PRN IV Hypoglycemia 04/29/20 23:30 07/28/20 23:29 Docusate Sodium (Colace) 100 mg THREE TIMES A DAY ORAL 04/29/20 13:00 05/29/20 12:59 05/04/20 08:47 Epoetin Jose (Epoetin Jose(ESRD on dialysis)) 10,000 unit SUBQ 04/30/20 21:00 07/27/20 20:59 05/03/20 20:59 Folic Acid (Folate) 1 mg DAILY ORAL 04/29/20 09:00 05/26/20 08:59 05/04/20 08:47 Heparin Sodium (Porcine) (Heparin 5000 units/ml) 5,000 units EVERY 12 HOURS SUBQ 04/28/20 21:00 06/12/20 20:59 05/03/20 20:54 Hydralazine HCl (Apresoline) 25 mg Q4H PRN ORAL For blood pressure over 160 sy 04/28/20 19:45 07/24/20 19:36 Hydromorphone HCl (Dilaudid) 0.5 mg Q4H PRN SUBQ Pain 7-04/28/20 19:45 05/04/20 19:44 Insulin Aspart (NovoLOG) BEFORE MEALS AND HS SUBQ 05/02/20 11:30 07/31/20 11:29 05/02/20 20:25 Lansoprazole (Prevacid) 30 mg BIAC ORAL 05/03/20 16:30 06/02/20 16:29 05/04/20 06:15 Meropenem 500 mg/ Sodium Chloride 55 ml @ 110 mls/hr Q24H IVPB 05/03/20 00:00 05/08/20 00:00 05/04/20 00:07 Midodrine (Pro-Amatine) 10 mg THREE TIMES A DAY ORAL 04/29/20 09:00 07/25/20 10:29 05/04/20 08:47 Ondansetron HCl (Zofran) 4 mg Q6H PRN IVP Nausea & Vomiting 04/28/20 19:45 05/25/20 19:37 05/03/20 06:23 Potassium Chloride 100 ml @ 100 mls/hr Q1H IV 05/04/20 11:00 05/04/20 13:59 05/04/20 12:12 Sevelamer Carbonate (Renvela) 800 mg THREE TIMES A DAY ORAL 04/29/20 09:00 07/23/20 08:59 05/03/20 13:21 Sodium Chloride 300 ml @ 100 mls/hr Q3H IV 05/04/20 11:00 05/04/20 13:59 05/04/20 11:00 Vancomycin HCl (Vanco pharmacy to dose) 1 ea DAILY PRN MISC Per rx protocol 04/28/20 19:45 05/28/20 19:44 Vancomycin HCl 500 mg/Dextrose 110 ml @ 110 mls/hr ONCE ONCE IVPB 05/04/20 12:00 05/04/20 12:59 05/04/20 12:12 Last 24 Hour Vital Signs Date Time Temp Pulse Resp B/P (MAP) Pulse Ox O2 Delivery O2 Flow Rate FiO2 05/04/20 09:17 Nasal Cannula 1.0 Nasal Cannula 1.0 Nasal Cannula 1.0 05/04/20 08:00 97.5 76 20 106/34 (58) 100 05/04/20 08:00 60 05/04/20 04:00 60 05/04/20 00:00 98.1 60 17 130/78 (95) 100 05/04/20 00:00 60 05/03/20 21:00 Nasal Cannula 1.0 Nasal Cannula 1.0 Nasal Cannula 1.0 05/03/20 20:00 97.9 59 17 125/59 (81) 100 05/03/20 20:00 60 05/03/20 16:00 98.1 62 18 116/53 (74) 97 05/03/20 16:00 60 05/03/20 12:00 97.9 70 18 124/62 (82) 99 05/03/20 12:00 60 05/03/20 09:00 Nasal Cannula 2.0 Nasal Cannula 2.0 Nasal Cannula 2.0 05/03/20 08:00 60 05/03/20 08:00 98.0 55 18 100/29 (52) 99 05/03/20 04:00 97.7 60 20 118/43 (68) 98 05/03/20 04:00 60 05/02/20 23:54 99.0 60 20 134/47 (76) 100 05/02/20 23:53 60 05/02/20 23:03 98.8 05/02/20 21:00 Nasal Cannula 2.0 Nasal Cannula 2.0 Nasal Cannula 2.0 05/02/20 20:00 101.5 60 20 106/42 (63) 98 05/02/20 20:00 60 05/02/20 16:00 97.9 60 18 105/41 (62) 97 05/02/20 16:00 60 Intake and Output 05/03/20 05/04/20 19:00 07:00 Intake Total 240 ml Balance 240 ml Intake Oral 240 ml Labs Test 05/01/20 20:13 05/02/20 10:45 05/02/20 11:36 05/02/20 17:11 POC Whole Blood Glucose 92 MG/DL (74-106) 77 MG/DL (74-106) 163 MG/DL (74-106) White Blood Count 5.1 K/UL (4.8-10.8) Red Blood Count 2.61 M/UL (4.20-5.40) Hemoglobin 7.7 G/DL (12.0-16.0) Hematocrit 24.2 % (37.0-47.0) Mean Corpuscular Volume 93 FL (80-99) Mean Corpuscular Hemoglobin 29.5 PG (27.0-31.0) Mean Corpuscular Hemoglobin Concent 31.8 G/DL (32.0-36.0) Red Cell Distribution Width 15.3 % (11.6-14.8) Platelet Count 139 K/UL (150-450) Mean Platelet Volume 7.4 FL (6.5-10.1) Neutrophils (%) (Auto) % (45.0-75.0) Lymphocytes (%) (Auto) % (20.0-45.0) Monocytes (%) (Auto) % (1.0-10.0) Eosinophils (%) (Auto) % (0.0-3.0) Basophils (%) (Auto) % (0.0-2.0) Differential Total Cells Counted 100 Neutrophils % (Manual) 66 % (45-75) Lymphocytes % (Manual) 19 % (20-45) Monocytes % (Manual) 10 % (1-10) Eosinophils % (Manual) 5 % (0-3) Basophils % (Manual) 0 % (0-2) Band Neutrophils 0 % (0-8) Platelet Estimate Decreased Platelet Morphology Normal Polychromasia 1+ Hypochromasia 1+ Anisocytosis 1+ Sodium Level 133 MMOL/L (136-145) Potassium Level 3.6 MMOL/L (3.5-5.1) Chloride Level 94 MMOL/L (98-107) Carbon Dioxide Level 32 MMOL/L (21-32) Anion Gap 7 mmol/L (5-15) Blood Urea Nitrogen 27 mg/dL (7-18) Creatinine 5.0 MG/DL (0.55-1.30) Estimat Glomerular Filtration Rate 10.3 mL/min (>60) Glucose Level 84 MG/DL (74-106) Calcium Level 8.5 MG/DL (8.5-10.1) Phosphorus Level 4.1 MG/DL (2.5-4.9) Total Bilirubin 0.4 MG/DL (0.2-1.0) Aspartate Amino Transf (AST/SGOT) 21 U/L (15-37) Alanine Aminotransferase (ALT/SGPT) 13 U/L (12-78) Alkaline Phosphatase 54 U/L (46-116) C-Reactive Protein, Quantitative 5.8 mg/dL (0.00-0.90) Total Protein 5.6 G/DL (6.4-8.2) Albumin 2.7 G/DL (3.4-5.0) Globulin 2.9 g/dL Albumin/Globulin Ratio 0.9 (1.0-2.7) Random Vancomycin Level 17.4 ug/mL Test 05/03/20 07:00 05/03/20 20:44 05/04/20 06:14 05/04/20 07:55 White Blood Count 7.2 K/UL (4.8-10.8) 6.6 K/UL (4.8-10.8) Red Blood Count 2.93 M/UL (4.20-5.40) 2.73 M/UL (4.20-5.40) Hemoglobin 8.8 G/DL (12.0-16.0) 8.2 G/DL (12.0-16.0) Hematocrit 27.6 % (37.0-47.0) 25.8 % (37.0-47.0) Mean Corpuscular Volume 94 FL (80-99) 95 FL (80-99) Mean Corpuscular Hemoglobin 30.1 PG (27.0-31.0) 30.1 PG (27.0-31.0) Mean Corpuscular Hemoglobin Concent 32.0 G/DL (32.0-36.0) 31.8 G/DL (32.0-36.0) Red Cell Distribution Width 15.3 % (11.6-14.8) 15.5 % (11.6-14.8) Platelet Count 164 K/UL (150-450) 153 K/UL (150-450) Mean Platelet Volume 8.2 FL (6.5-10.1) 8.0 FL (6.5-10.1) Neutrophils (%) (Auto) 61.9 % (45.0-75.0) 62.3 % (45.0-75.0) Lymphocytes (%) (Auto) 16.8 % (20.0-45.0) 18.1 % (20.0-45.0) Monocytes (%) (Auto) 13.3 % (1.0-10.0) 13.4 % (1.0-10.0) Eosinophils (%) (Auto) 5.7 % (0.0-3.0) 5.0 % (0.0-3.0) Basophils (%) (Auto) 2.3 % (0.0-2.0) 1.3 % (0.0-2.0) Sodium Level 133 MMOL/L (136-145) 135 MMOL/L (136-145) Potassium Level 3.6 MMOL/L (3.5-5.1) 3.1 MMOL/L (3.5-5.1) Chloride Level 94 MMOL/L (98-107) 96 MMOL/L (98-107) Carbon Dioxide Level 31 MMOL/L (21-32) 34 MMOL/L (21-32) Anion Gap 8 mmol/L (5-15) 5 mmol/L (5-15) Blood Urea Nitrogen 35 mg/dL (7-18) 25 mg/dL (7-18) Creatinine 5.9 MG/DL (0.55-1.30) 4.2 MG/DL (0.55-1.30) Estimat Glomerular Filtration Rate 8.5 mL/min (>60) 12.7 mL/min (>60) Glucose Level 107 MG/DL (74-106) 93 MG/DL (74-106) Calcium Level 8.4 MG/DL (8.5-10.1) 8.6 MG/DL (8.5-10.1) Phosphorus Level 3.6 MG/DL (2.5-4.9) 2.4 MG/DL (2.5-4.9) Total Bilirubin 0.5 MG/DL (0.2-1.0) 0.5 MG/DL (0.2-1.0) Aspartate Amino Transf (AST/SGOT) 23 U/L (15-37) 19 U/L (15-37) Alanine Aminotransferase (ALT/SGPT) 16 U/L (12-78) 12 U/L (12-78) Alkaline Phosphatase 59 U/L (46-116) 52 U/L (46-116) C-Reactive Protein, Quantitative 5.5 mg/dL (0.00-0.90) 3.9 mg/dL (0.00-0.90) Total Protein 6.0 G/DL (6.4-8.2) 5.5 G/DL (6.4-8.2) Albumin 2.8 G/DL (3.4-5.0) 2.5 G/DL (3.4-5.0) Globulin 3.2 g/dL 3.0 g/dL Albumin/Globulin Ratio 0.9 (1.0-2.7) 0.8 (1.0-2.7) POC Whole Blood Glucose 133 MG/DL (74-106) 107 MG/DL (74-106) Prothrombin Time 11.3 SEC (9.30-11.50) Prothromb Time International Ratio 1.0 (0.9-1.1) Activated Partial Thromboplast Time 29 SEC (23-33) Random Vancomycin Level 19.8 ug/mL Height (Feet): 5 Height (Inches): 5.00 Weight (Pounds): 295 Objective Physical Exam Vitals: reviewed Gen: no apparent distress, alert, non-toxic, obese, Chronically Ill HEENT: hearing grossly normal, normal voice Neck: full range of motion Resp: chest non-tender, lungs clear, normal breath sounds, no respiratory distress, permacath left side Cardiovascular: regular rate, rhythm, no edema, other - slow cap refill time of lower extremities bilaterally GI: normal bowel sounds, non tender, soft Msk: normal range of motion, non-tender, other - PT. wheel chair bound Neuro: alert, oriented x3, responsive, speech normal, sensory deficit Psychiatric: judgement/insight normal Skin: Decubitus/Ulcer - 2cm in diameter with a deeper necrotic 0.6cm center. erythema- pressure sore on tailbone. no skin break down Husam Byers MD May 04, 2020 12:21
--- NOTE | 2020-05-04 14:15 | NUR ---
SWALLOW STATUS/DYSPHAGIA MANAGEMENT PATIENT CLEARED FOR ST INTERVENTION BY VIKAS LOPEZ. PATIENT RECEIVED WITH HER HEAD OF BED ELEVATED, SHE WAS ALERT, VERBAL, AMENABLE TO ST INTERVENTION. PATIENT PROVIDED WITH P.O. TRIALS FROM HER NOON MEAL WHICH CONSISTED OF THIN LIQUID AND PUREE SOLIDS. DURING THE MORNING MEAL THE RN NOTICED THE PATIENT CHEWING REPETITIVELY ON GROUND SOLIDS AND DECIDED TO DOWNGRADE THE PATIENTS DIET TEXTURE TO PUREE. PATIENT HAD TO BE COAXED TO PARTICIPATE IN P.O. OF PUREE SOLIDS WITH THIS CLINICIAN. SHE VERBALIZED PREFERENCE OF SOFT SOLIDS AND REFUSED PUREE.SOLIDS. SHE COMPLAINED ABOUT THE TEXTURE AND HAS A HISTORY OF REFUSING MEALS IN GENERAL.. DURING THIS MEAL, SHE ASKED FOR CHEETOS. WITH P.O. INTAKE OF THIN LIQUID NEPRO, PATIENT HAD TO BE CUED NOT TO TAKE MULTIPLE/SEQUENTIAL SIPS FROM A STRAW. SHE WAS UNABLE TO IDENTIFY RISK OF ASPIRATION OR NAME ANY COMPENSATORY SWALLOW STRATEGIES WITHOUT MAX CUES FROM CLINICIAN. PATIENT FINISHED NEPRO, ATE LESS THAN 1/3 OF PUREE SOLIDS. DISCUSSED PATIENTS REFUSAL OF PUREE SOLIDS WITH VIKAS LOPEZ AND IT WAS DECIDED TO RETURN THE PATIENTS SOLID TEXTURE TO MECHANICAL SOFT WITH GROUND MEATS. THROUGHOUT MEALTIME, NO WET VOCAL QUALITY AND UPPER AIRWAY SOUNDS REMAINED CLEAR. NO COUGH OR THROAT CLEAR RESPONSE NOTED. RECOMMENDATIONS: 1. UPGRADE DIET TEXTURE TO [facility] SOFT/GROUND MEATS, THIN LIQUIDS 2. CONTINUE MEALTIME PROTOCOL WITH TOTAL ASSIST WITH MEALS 3. ST TO CONTINUE FOR DIET TOLERANCE, ANALYZE/ADJUST TEXTURE, PATIENT/FAMILY/CAREGIVER EDUCATION RE: COMPENSATORY SWALLOW STRATEGIES THANK YOU FOR THIS REFERRAL.
--- NOTE | 2020-05-04 14:30 | NUR ---
NURSE NOTES: Spoke with [facility] dialysis nurse in person who confirmed she will be coming in tomorrow.
[2020-05-04 16:00] VITALS: BP 110/31
--- NOTE | 2020-05-04 17:30 | NUR ---
NURSE NOTES: Spoke with daughter and informed her that AV shunt was not placed. Informed her that per Dr. Banegas it will be safer to wait until pt completes antibiotic treatment. Dr. Banegas aware.
--- NOTE | 2020-05-04 19:02 | NUR ---
HAND-OFF: Report given to Layla BEAN.
--- NOTE | 2020-05-04 19:30 | NUR ---
NURSE NOTES: Received report from Sheyla/VIKAS Cervantes. Patient is awake on bed, alert and oriented x 2, forgetful. conditioner tumbler is in placed, shows A-Paced, with left upper chest pacemaker. On room air, with no SOB reported, saturation at this time is 95%. On renal diet, mechanical soft-ground, thin liquids, with feed-assist. IV site is on right AC saline lock, that is patent and intact. Safety measures are in placed, bed in locked and lowest position, side rails up x 2. Bedside table and call light button within reach, advised to call for any assistance needed. Will continue plan of care.
[2020-05-04 20:00] VITALS: BP 124/51
--- NOTE | 2020-05-04 20:31 | Cardiology Progress Note ---
Assessment/Plan Assessment/Plan 1. Hypotension, resolved, likely caused by S. Capitis, 2D echo shows normal LV systolic function. 2. Slight elevation of troponin I level due to hypotension/shock. Continue ASA and atorvastatin. 3. Paroxysmal atrial fibrillation. Continue amiodarone and apixaban. 4. History of CVA with left hemiparesis. 5. Hypoxic hypercarbic respiratory failure. 6. Dual chamber pacemaker, atrial paced, ventricular sensed. Subjective Subjective Atrial paced ventricular sensed at rate of 60. On NC oxygen. Objective Last 24 Hour Vital Signs Date Time Temp Pulse Resp B/P (MAP) Pulse Ox O2 Delivery O2 Flow Rate FiO2 05/04/20 16:00 97.7 59 20 110/31 (57) 100 05/04/20 16:00 60 05/04/20 12:00 60 05/04/20 12:00 97.5 77 20 137/49 (78) 100 05/04/20 09:17 Nasal Cannula 1.0 Nasal Cannula 1.0 Nasal Cannula 1.0 05/04/20 08:00 97.5 76 20 106/34 (58) 100 05/04/20 08:00 60 05/04/20 04:00 60 05/04/20 00:00 98.1 60 17 130/78 (95) 100 05/04/20 00:00 60 05/03/20 21:00 Nasal Cannula 1.0 Nasal Cannula 1.0 Nasal Cannula 1.0 Intake and Output 05/03/20 05/04/20 19:00 07:00 Intake Total 240 ml Balance 240 ml Intake Oral 240 ml 2D Echo: LVEF 60%, JENY, Severe IN, RVSP 61 mmHg Laboratory Tests Test 05/03/20 20:44 05/04/20 06:14 05/04/20 07:55 05/04/20 11:02 POC Whole Blood Glucose 133 MG/DL (74-106) H 107 MG/DL (74-106) H 86 MG/DL (74-106) White Blood Count 6.6 K/UL (4.8-10.8) Red Blood Count 2.73 M/UL (4.20-5.40) L Hemoglobin 8.2 G/DL (12.0-16.0) L Hematocrit 25.8 % (37.0-47.0) L Mean Corpuscular Volume 95 FL (80-99) Mean Corpuscular Hemoglobin 30.1 PG (27.0-31.0) Mean Corpuscular Hemoglobin Concent 31.8 G/DL (32.0-36.0) L Red Cell Distribution Width 15.5 % (11.6-14.8) H Platelet Count 153 K/UL (150-450) Mean Platelet Volume 8.0 FL (6.5-10.1) Neutrophils (%) (Auto) 62.3 % (45.0-75.0) Lymphocytes (%) (Auto) 18.1 % (20.0-45.0) L Monocytes (%) (Auto) 13.4 % (1.0-10.0) H Eosinophils (%) (Auto) 5.0 % (0.0-3.0) H Basophils (%) (Auto) 1.3 % (0.0-2.0) Prothrombin Time 11.3 SEC (9.30-11.50) Prothromb Time International Ratio 1.0 (0.9-1.1) Activated Partial Thromboplast Time 29 SEC (23-33) Sodium Level 135 MMOL/L (136-145) L Potassium Level 3.1 MMOL/L (3.5-5.1) L Chloride Level 96 MMOL/L (98-107) L Carbon Dioxide Level 34 MMOL/L (21-32) H Anion Gap 5 mmol/L (5-15) Blood Urea Nitrogen 25 mg/dL (7-18) H Creatinine 4.2 MG/DL (0.55-1.30) H Estimat Glomerular Filtration Rate 12.7 mL/min (>60) Glucose Level 93 MG/DL (74-106) Calcium Level 8.6 MG/DL (8.5-10.1) Phosphorus Level 2.4 MG/DL (2.5-4.9) L Total Bilirubin 0.5 MG/DL (0.2-1.0) Aspartate Amino Transf (AST/SGOT) 19 U/L (15-37) Alanine Aminotransferase (ALT/SGPT) 12 U/L (12-78) Alkaline Phosphatase 52 U/L (46-116) C-Reactive Protein, Quantitative 3.9 mg/dL (0.00-0.90) H Total Protein 5.5 G/DL (6.4-8.2) L Albumin 2.5 G/DL (3.4-5.0) L Globulin 3.0 g/dL Albumin/Globulin Ratio 0.8 (1.0-2.7) L Random Vancomycin Level 19.8 ug/mL Test 05/04/20 16:13 POC Whole Blood Glucose 141 MG/DL (74-106) H Objective HEENT: Atraumatic, normocephalic. Anicteric. Pupils are equal, round, and reactive to light and accommodation. Extraocular muscles intact. NECK: JVP cannot be assessed. No carotid bruit. Carotid upstroke is 2+ bilaterally. CARDIOVASCULAR: Normal S1, S2. There is 2/6 mid systolic murmur at the left sternal border. PMI is at fourth intercostal space at the midclavicular line, + pacemaker pocket left side. LUNGS: Bibasilar crackles. ABDOMEN: Soft, nontender, and nondistended. No hepatosplenomegaly. Positive bowel sounds. EXTREMITIES: Diminished dorsalis pedis pulses of 1+. There is diminished motor function on the left lower extremity and upper extremity. Triston Jyo MD May 04, 2020 20:31
[2020-05-04] MEDS: Dyna-Hex 2% Top Sol 2oz TOPIC SCH (20:45)
[2020-05-04] MEDS: Atorvastatin 20mg tab ORAL SCH (20:46)
[2020-05-05] VITALS: BP 106/71
[2020-05-05 04:00] VITALS: BP 131/50
[2020-05-05] MEDS: NovoLOG Insulin Flexpen SUBQ SCH ×4 (06:02→20:47)
--- NOTE | 2020-05-05 07:11 | Hematology/Onc Progress Note ---
Assessment/Plan Assessment/Plan Assessment and Recs # Thombocytopenia is likely 2/2 Cellulitis of left foot --> as per id --> plt trend 150-->102-->92-->103-->133-->148->135->164->153 --> hold anticoag if plt <50 --> abx vanc/cefepime # Anemia is likely due to esrd, has been under care of Dr. Stephenson --> continue hd as needed --> with permacath in place on chest, no infection --> EPOGEN 4k dose 3 times a week started --> hgb trend 12-->9->8.1->7.7->8.8->8.2 --> as per renal # Hypercoagulable disorder with afib hx --> on eliquis which has been started --> no bleeding noted # ESRD (end stage renal disease) --> per renal care # Diabetic nephropathy --> wound care and endo recs --> a1c goal <8 # Dvt ppx heparin sq DW Rn and appreciate consultation Subjective HEENT: Denies: no symptoms, eye pain, blurred vision, tearing, double vision, ear pain, ear discharge, nose pain, nose congestion, throat pain, throat swelling, mouth pain, mouth swelling, other Cardiovascular: Denies: no symptoms, chest pain, edema, irregular heart rate, lightheadedness, palpitations, syncope, other Respiratory: Denies: no symptoms, cough, shortness of breath, SOB with excertion, SOB at rest, sputum, wheezing, other Gastrointestinal/Abdominal: Denies: no symptoms, abdomen distended, abdominal pain, black stools, tarry stools, blood in stool, constipated, diarrhea, difficulty swallowing, nausea, poor appetite, poor fluid intake, rectal bleeding , vomiting, other Genitourinary: Denies: no symptoms, burning, discharge, frequency, flank pain, hematuria, incontinence, pain, urgency, other Neurologic/Psychiatric: Denies: no symptoms, anxiety, depressed, emotional problems, headache, numbness, paresthesia, pre-existing deficit, seizure, tingling, tremors, weakness, other Endocrine: Denies: no symptoms, excessive sweating, flushing, intolerance to cold, intolerance to heat, increased hunger, increased thirst, increased urine, unexplained weight gain, unexplained weight loss, other Hematologic/Lymphatic: Denies: no symptoms, anemia, easy bleeding, easy bruising, adenopathy, other Allergies: Coded Allergies: PENICILLINS (Verified Allergy, Unknown, 04/23/20) Tolerated Cefepime 04/23/20 Subjective 04/26 seen by renal, is for hd tomorrow, labs noted, plts are lower 04/27 labs noted, no bleeding, for hd, hgb currently lower at 9 04/28 meds noted, no bleeding, carlo rn, permcath to dc 04/29 labs still pending, no bleeding, remains forgetful, no bleeding 04/30 no major changes, no bleeding, cbc is noted 05/01 meds reviewed, no bleeding, labs noted, no night sweats 05/02 to undergo hd for tomorrow, no bleeding, labs noted hgb 7.7 05/03 remains on abx, and plts have improved, no bleeding 05/04 is to have arm dialysis placement today, no bleeding 05/05 awaiting improvement off antibiotic before shunt placement Objective Objective Current Medications Medications (Trade) Dose Ordered Sig/Jesus Route PRN Reason Start Time Stop Time Status Last Admin Dose Admin Acetaminophen (Tylenol) 500 mg Q4H PRN ORAL Temp >100.5 05/02/20 22:19 06/01/20 22:18 05/02/20 22:33 Aspirin (ASA) 81 mg DAILY ORAL 04/29/20 09:00 06/08/20 08:59 05/03/20 08:55 Atorvastatin Calcium (Lipitor) 40 mg BEDTIME ORAL 04/28/20 21:00 07/24/20 20:59 05/04/20 20:46 Chlorhexidine Gluconate (Cira-Hex 2%) 1 applic DAILY@1999 TOPIC 04/28/20 20:00 07/22/20 19:59 05/04/20 20:45 Dextrose (Dextrose 50%) 25 ml Q30M PRN IV Hypoglycemia 04/29/20 23:30 07/28/20 23:29 Dextrose (Dextrose 50%) 50 ml Q30M PRN IV Hypoglycemia 04/29/20 23:30 07/28/20 23:29 Docusate Sodium (Colace) 100 mg THREE TIMES A DAY ORAL 04/29/20 13:00 05/29/20 12:59 05/04/20 17:15 Epoetin Jose (Epoetin Jose(ESRD on dialysis)) 10,000 unit SUN-SUN-SUN SUBQ 04/30/20 21:00 07/27/20 20:59 05/03/20 20:59 Folic Acid (Folate) 1 mg DAILY ORAL 04/29/20 09:00 05/26/20 08:59 05/04/20 08:47 Heparin Sodium (Porcine) (Heparin 5000 units/ml) 5,000 units EVERY 12 HOURS SUBQ 04/28/20 21:00 06/12/20 20:59 05/04/20 20:46 Hydralazine HCl (Apresoline) 25 mg Q4H PRN ORAL For blood pressure over 160 sy 04/28/20 19:45 07/24/20 19:36 Insulin Aspart (NovoLOG) BEFORE MEALS AND HS SUBQ 05/02/20 11:30 07/31/20 11:29 05/04/20 20:48 Lansoprazole (Prevacid) 30 mg BIAC ORAL 05/03/20 16:30 06/02/20 16:29 05/05/20 06:02 Meropenem 500 mg/ Sodium Chloride 55 ml @ 110 mls/hr Q24H IVPB 05/03/20 00:00 05/08/20 00:00 05/04/20 23:45 Midodrine (Pro-Amatine) 10 mg THREE TIMES A DAY ORAL 04/29/20 09:00 07/25/20 10:29 05/04/20 08:47 Ondansetron HCl (Zofran) 4 mg Q6H PRN IVP Nausea & Vomiting 04/28/20 19:45 05/25/20 19:37 05/03/20 06:23 Sevelamer Carbonate (Renvela) 800 mg THREE TIMES A DAY ORAL 04/29/20 09:00 07/23/20 08:59 05/04/20 17:15 Vancomycin HCl (Vanco pharmacy to dose) 1 ea DAILY PRN MISC Per rx protocol 04/28/20 19:45 05/28/20 19:44 Last 24 Hour Vital Signs Date Time Temp Pulse Resp B/P (MAP) Pulse Ox O2 Delivery O2 Flow Rate FiO2 05/05/20 04:00 60 05/05/20 04:00 97.5 59 18 131/50 (77) 96 05/05/20 00:00 97.4 65 21 106/71 (83) 96 05/05/20 00:00 60 05/04/20 20:15 98 Nasal Cannula 2.0 28 05/04/20 20:00 60 05/04/20 20:00 97.7 62 18 124/51 (75) 94 05/04/20 16:00 97.7 59 20 110/31 (57) 100 05/04/20 16:00 60 05/04/20 12:00 60 05/04/20 12:00 97.5 77 20 137/49 (78) 100 05/04/20 09:17 Nasal Cannula 1.0 Nasal Cannula 1.0 Nasal Cannula 1.0 05/04/20 08:00 97.5 76 20 106/34 (58) 100 05/04/20 08:00 60 05/04/20 04:00 60 05/04/20 00:00 98.1 60 17 130/78 (95) 100 05/04/20 00:00 60 05/03/20 21:00 Nasal Cannula 1.0 Nasal Cannula 1.0 Nasal Cannula 1.0 05/03/20 20:00 97.9 59 17 125/59 (81) 100 05/03/20 20:00 60 05/03/20 16:00 98.1 62 18 116/53 (74) 97 05/03/20 16:00 60 05/03/20 12:00 97.9 70 18 124/62 (82) 99 05/03/20 12:00 60 05/03/20 09:00 Nasal Cannula 2.0 Nasal Cannula 2.0 Nasal Cannula 2.0 05/03/20 08:00 60 05/03/20 08:00 98.0 55 18 100/29 (52) 99 Intake and Output 05/04/20 05/05/20 19:00 07:00 Intake Total 0 ml Balance 0 ml Intake Oral 0 ml Labs Test 05/02/20 10:45 05/02/20 11:36 05/02/20 17:11 05/02/20 19:58 White Blood Count 5.1 K/UL (4.8-10.8) Red Blood Count 2.61 M/UL (4.20-5.40) Hemoglobin 7.7 G/DL (12.0-16.0) Hematocrit 24.2 % (37.0-47.0) Mean Corpuscular Volume 93 FL (80-99) Mean Corpuscular Hemoglobin 29.5 PG (27.0-31.0) Mean Corpuscular Hemoglobin Concent 31.8 G/DL (32.0-36.0) Red Cell Distribution Width 15.3 % (11.6-14.8) Platelet Count 139 K/UL (150-450) Mean Platelet Volume 7.4 FL (6.5-10.1) Neutrophils (%) (Auto) % (45.0-75.0) Lymphocytes (%) (Auto) % (20.0-45.0) Monocytes (%) (Auto) % (1.0-10.0) Eosinophils (%) (Auto) % (0.0-3.0) Basophils (%) (Auto) % (0.0-2.0) Differential Total Cells Counted 100 Neutrophils % (Manual) 66 % (45-75) Lymphocytes % (Manual) 19 % (20-45) Monocytes % (Manual) 10 % (1-10) Eosinophils % (Manual) 5 % (0-3) Basophils % (Manual) 0 % (0-2) Band Neutrophils 0 % (0-8) Platelet Estimate Decreased Platelet Morphology Normal Polychromasia 1+ Hypochromasia 1+ Anisocytosis 1+ Sodium Level 133 MMOL/L (136-145) Potassium Level 3.6 MMOL/L (3.5-5.1) Chloride Level 94 MMOL/L (98-107) Carbon Dioxide Level 32 MMOL/L (21-32) Anion Gap 7 mmol/L (5-15) Blood Urea Nitrogen 27 mg/dL (7-18) Creatinine 5.0 MG/DL (0.55-1.30) Estimat Glomerular Filtration Rate 10.3 mL/min (>60) Glucose Level 84 MG/DL (74-106) Calcium Level 8.5 MG/DL (8.5-10.1) Phosphorus Level 4.1 MG/DL (2.5-4.9) Total Bilirubin 0.4 MG/DL (0.2-1.0) Aspartate Amino Transf (AST/SGOT) 21 U/L (15-37) Alanine Aminotransferase (ALT/SGPT) 13 U/L (12-78) Alkaline Phosphatase 54 U/L (46-116) C-Reactive Protein, Quantitative 5.8 mg/dL (0.00-0.90) Total Protein 5.6 G/DL (6.4-8.2) Albumin 2.7 G/DL (3.4-5.0) Globulin 2.9 g/dL Albumin/Globulin Ratio 0.9 (1.0-2.7) Random Vancomycin Level 17.4 ug/mL POC Whole Blood Glucose 77 MG/DL (74-106) 163 MG/DL (74-106) 162 MG/DL (74-106) Test 05/03/20 05:22 05/03/20 07:00 05/03/20 20:44 05/04/20 06:14 POC Whole Blood Glucose 104 MG/DL (74-106) 133 MG/DL (74-106) 107 MG/DL (74-106) White Blood Count 7.2 K/UL (4.8-10.8) Red Blood Count 2.93 M/UL (4.20-5.40) Hemoglobin 8.8 G/DL (12.0-16.0) Hematocrit 27.6 % (37.0-47.0) Mean Corpuscular Volume 94 FL (80-99) Mean Corpuscular Hemoglobin 30.1 PG (27.0-31.0) Mean Corpuscular Hemoglobin Concent 32.0 G/DL (32.0-36.0) Red Cell Distribution Width 15.3 % (11.6-14.8) Platelet Count 164 K/UL (150-450) Mean Platelet Volume 8.2 FL (6.5-10.1) Neutrophils (%) (Auto) 61.9 % (45.0-75.0) Lymphocytes (%) (Auto) 16.8 % (20.0-45.0) Monocytes (%) (Auto) 13.3 % (1.0-10.0) Eosinophils (%) (Auto) 5.7 % (0.0-3.0) Basophils (%) (Auto) 2.3 % (0.0-2.0) Sodium Level 133 MMOL/L (136-145) Potassium Level 3.6 MMOL/L (3.5-5.1) Chloride Level 94 MMOL/L (98-107) Carbon Dioxide Level 31 MMOL/L (21-32) Anion Gap 8 mmol/L (5-15) Blood Urea Nitrogen 35 mg/dL (7-18) Creatinine 5.9 MG/DL (0.55-1.30) Estimat Glomerular Filtration Rate 8.5 mL/min (>60) Glucose Level 107 MG/DL (74-106) Calcium Level 8.4 MG/DL (8.5-10.1) Phosphorus Level 3.6 MG/DL (2.5-4.9) Total Bilirubin 0.5 MG/DL (0.2-1.0) Aspartate Amino Transf (AST/SGOT) 23 U/L (15-37) Alanine Aminotransferase (ALT/SGPT) 16 U/L (12-78) Alkaline Phosphatase 59 U/L (46-116) C-Reactive Protein, Quantitative 5.5 mg/dL (0.00-0.90) Total Protein 6.0 G/DL (6.4-8.2) Albumin 2.8 G/DL (3.4-5.0) Globulin 3.2 g/dL Albumin/Globulin Ratio 0.9 (1.0-2.7) Test 05/04/20 07:55 05/04/20 11:02 05/04/20 16:13 05/04/20 20:40 White Blood Count 6.6 K/UL (4.8-10.8) Red Blood Count 2.73 M/UL (4.20-5.40) Hemoglobin 8.2 G/DL (12.0-16.0) Hematocrit 25.8 % (37.0-47.0) Mean Corpuscular Volume 95 FL (80-99) Mean Corpuscular Hemoglobin 30.1 PG (27.0-31.0) Mean Corpuscular Hemoglobin Concent 31.8 G/DL (32.0-36.0) Red Cell Distribution Width 15.5 % (11.6-14.8) Platelet Count 153 K/UL (150-450) Mean Platelet Volume 8.0 FL (6.5-10.1) Neutrophils (%) (Auto) 62.3 % (45.0-75.0) Lymphocytes (%) (Auto) 18.1 % (20.0-45.0) Monocytes (%) (Auto) 13.4 % (1.0-10.0) Eosinophils (%) (Auto) 5.0 % (0.0-3.0) Basophils (%) (Auto) 1.3 % (0.0-2.0) Prothrombin Time 11.3 SEC (9.30-11.50) Prothromb Time International Ratio 1.0 (0.9-1.1) Activated Partial Thromboplast Time 29 SEC (23-33) Sodium Level 135 MMOL/L (136-145) Potassium Level 3.1 MMOL/L (3.5-5.1) Chloride Level 96 MMOL/L (98-107) Carbon Dioxide Level 34 MMOL/L (21-32) Anion Gap 5 mmol/L (5-15) Blood Urea Nitrogen 25 mg/dL (7-18) Creatinine 4.2 MG/DL (0.55-1.30) Estimat Glomerular Filtration Rate 12.7 mL/min (>60) Glucose Level 93 MG/DL (74-106) Calcium Level 8.6 MG/DL (8.5-10.1) Phosphorus Level 2.4 MG/DL (2.5-4.9) Total Bilirubin 0.5 MG/DL (0.2-1.0) Aspartate Amino Transf (AST/SGOT) 19 U/L (15-37) Alanine Aminotransferase (ALT/SGPT) 12 U/L (12-78) Alkaline Phosphatase 52 U/L (46-116) C-Reactive Protein, Quantitative 3.9 mg/dL (0.00-0.90) Total Protein 5.5 G/DL (6.4-8.2) Albumin 2.5 G/DL (3.4-5.0) Globulin 3.0 g/dL Albumin/Globulin Ratio 0.8 (1.0-2.7) Random Vancomycin Level 19.8 ug/mL POC Whole Blood Glucose 86 MG/DL (74-106) 141 MG/DL (74-106) 186 MG/DL (74-106) Height (Feet): 5 Height (Inches): 5.00 Weight (Pounds): 295 Objective Physical Exam Vitals: reviewed Gen: no apparent distress, alert, non-toxic, obese, Chronically Ill HEENT: hearing grossly normal, normal voice Neck: full range of motion Resp: chest non-tender, lungs clear, normal breath sounds, no respiratory distress, permacath left side Cardiovascular: regular rate, rhythm, no edema, other - slow cap refill time of lower extremities bilaterally GI: normal bowel sounds, non tender, soft Msk: normal range of motion, non-tender, other - PT. wheel chair bound Neuro: alert, oriented x3, responsive, speech normal, sensory deficit Psychiatric: judgement/insight normal Skin: Decubitus/Ulcer - 2cm in diameter with a deeper necrotic 0.6cm center. erythema- pressure sore on tailbone. no skin break down Husam Byers MD May 05, 2020 07:11
--- NOTE | 2020-05-05 07:56 | NUR ---
HAND-OFF: Report given to VIKAS Cespedes. Patient is asleep on bed, in stable condition. Plan of care endorsed.
[2020-05-05 08:00] VITALS: BP 121/59
--- NOTE | 2020-05-05 08:21 | NUR ---
NURSE NOTES: pt in bed resting. Continue youth nutritional monitor, no signs of cardiac or respiratory distress, Bed is locked and in lowest position. Call light within reach. pt is schedule to have dialysis today. Will continue to monitor pt.
--- NOTE | 2020-05-05 08:41 | General Progress Note ---
Assessment/Plan Status: stable, unchanged Assessment/Plan: S: appears comfortable. O: controlled pain . seen and examined in Tele unit. talks and communicate PHYSICAL EXAMINATION: HEAD AND NECK: Atraumatic and normocephalic. CHEST: Right IJ permcath in place, Clear to auscultation. HEART: S1, S2. Regular rate and rhythm. Bradycardic. MUSCULOSKELETAL: paraparesis. stage 3 decubitus wound in calcaneal region. NEUROLOGIC: The patient is awake and alert x 2. LABORATORY AND DIAGNOSTIC DATA: Labs dated 05/04/20 reviewed Imaging: bone scan dated April 28 reviewed ASSESSMENT: 1. Sepsis secondary to Gram positive coccidiema , likely line infection 2. Acute Hypoxemic respiratory failure, s/p rapid response assessment 2. Hypotension : ddx; adrenal insufficiency 3. HyperKalemia 2. Decubitus wound, enlarging and infected. 3. End-stage renal disease, on temporary PermCath hemodialysis access. 2. Paroxysmal atrial fibrillation, rate is stable. 3. Diabetes type 2. 4. Hypertension. 5. Hyperlipidemia. 6. CVA-history. 7. CHF-Diastolic type 8. Dementia. 8. Gastrointestinal and deep vein thrombosis prophylaxes. 9. Pain management 10. iron deficiency anemia Plan: Empirical abx initiated Notes from [facility] care reviewed Notified Dr Fam and D/w Dr Saavedra c/w Batsheva PRN breakthrough Consulte Hem onch Post Calcium/Novolog/D50 treatment with favorable response HD per nephrology will remove HD access post HD D/w Nephrology, ID and Vascular surgeon DC the eliquis in anticipation of Vascular procedures post reinsertion of PermCath D/W Dr Fam for revision of AV G-F D/W Rn to change the insulin regiment to avoid hypoglycemia One episode of fever, re cultured. Negative blood cultures x 5 days otherwise Proceed with Right sided AVG placement, as there is no medical contra- indication at this time. Cardiology, ID, pulmonary services notified about this plan of care Hold on AVG placment, Given non-emergency basis for this procedure and benefit for continuation of IV abx and assurance of a sustained negative bacteremia Subjective Allergies: Coded Allergies: PENICILLINS (Verified Allergy, Unknown, 04/23/20) Tolerated Cefepime 04/23/20 Objective Last 24 Hour Vital Signs Date Time Temp Pulse Resp B/P (MAP) Pulse Ox O2 Delivery O2 Flow Rate FiO2 05/05/20 08:00 97.7 60 20 121/59 (79) 100 05/05/20 04:00 60 05/05/20 04:00 97.5 59 18 131/50 (77) 96 05/05/20 00:00 97.4 65 21 106/71 (83) 96 05/05/20 00:00 60 05/04/20 20:15 98 Nasal Cannula 2.0 28 05/04/20 20:00 60 05/04/20 20:00 97.7 62 18 124/51 (75) 94 05/04/20 16:00 97.7 59 20 110/31 (57) 100 05/04/20 16:00 60 05/04/20 12:00 60 05/04/20 12:00 97.5 77 20 137/49 (78) 100 05/04/20 09:17 Nasal Cannula 1.0 Nasal Cannula 1.0 Nasal Cannula 1.0 Intake and Output 05/04/20 05/05/20 19:00 07:00 Intake Total 0 ml Balance 0 ml Intake Oral 0 ml Laboratory Tests 05/04/20 11:02: POC Whole Blood Glucose 86 05/04/20 16:13: POC Whole Blood Glucose 141H 05/04/20 20:40: POC Whole Blood Glucose 186H Height (Feet): 5 Height (Inches): 5.00 Weight (Pounds): 295 Danie Banegas MD May 05, 2020 08:41
[2020-05-05] MEDS: Midodrine 10mg tab ORAL SCH ×3 (09:14→17:44)
[2020-05-05] MEDS: Heparin 5000 units/ml inj SUBQ SCH ×2 (09:15→20:46)
[2020-05-05] MEDS: Docusate 100mg/10ml Liq ORAL SCH ×3 (09:16→17:44)
[2020-05-05] MEDS: Aspirin Baby 81mg ORAL SCH (09:16)
[2020-05-05] MEDS: Renvela 800mg Pkt ORAL SCH ×3 (09:16→17:44)
--- NOTE | 2020-05-05 11:00 | NUR ---
NURSE NOTES: pt. was noticed to be wheezing, notified doctor Jyothi, pt has no complains of SOB, in room air O2 98-100. Addendum: 05/05/20 at 1231 by Rubina Jimenez RN notified doctor Jyothi and Makenzie , pt is wheezing, pt has no complains of SOB, in room air O2 98-100. No new orders were given by doctor Roe.
[2020-05-05] MEDS: HYDROcodone/Acetamin 5/325 tab ORAL PRN ×2 (11:31→18:31)
[2020-05-05 12:00] VITALS: BP 108/45
--- NOTE | 2020-05-05 12:49 | Infectious Diseases Prog Note ---
Assessment/Plan Assessment: Fever 05/02 r/o recurrent bacteremia- SP No leukocytosis 05/03 CXR: Mild vascular prominence unchanged. The lung chisholm are clear bilaterally. -05/02 Bcx NTD CHIMNEY REPAIRER 04/25- due to hypotension and desaturation -hypoxic on ABG SEvere sepsis; resolving S. capitis bacteremia, persistent- likely HD line infection in the setting of sepsis -04/23 Bcx 1/ Staph capitis ; 04/25 Bcx 1/4 Staph capitis; 04/27 Bcx Neg x4 ( peripheral, HD line) -2d Echo: no vegetations seen Pulmonary edema vs PNA -04/30 CXR: Mild perihilar interstitial congestion, unchanged from 04/25/2020. -04/25 SARS-COV2 PCR neg -04/25 CXR: Perihilar opacities may represent pulmonary edema versus infectious/inflammatory process. Elevated trop L foot/ankle wound; no grossly infected- no OM on bone scan -04/28 Bone scan: No significant abnormality in the left heel to suggest osteomyelitis of the location of clinically described left heel wound. Mild bilateral abnormal uptake, as detailed above, likely reflecting degenerative changes -xray L foot/ankle: No acute findings in the left foot. 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 Will continue to follow along . Discussed with RN, Dr Stephenson, counter caser and Dr Huff Subjective Allergies: Coded Allergies: PENICILLINS (Verified Allergy, Unknown, 04/23/20) Tolerated Cefepime 04/23/20 afebrile >36hrs now at RA repeat Bcx pending more alert now Objective Last 24 Hour Vital Signs Date Time Temp Pulse Resp B/P (MAP) Pulse Ox O2 Delivery O2 Flow Rate FiO2 05/05/20 12:00 60 05/05/20 12:00 97.5 60 18 108/45 (66) 99 05/05/20 08:00 60 05/05/20 08:00 97.7 60 20 121/59 (79) 100 05/05/20 04:00 60 05/05/20 04:00 97.5 59 18 131/50 (77) 96 05/05/20 00:00 97.4 65 21 106/71 (83) 96 05/05/20 00:00 60 05/04/20 20:15 98 Nasal Cannula 2.0 28 05/04/20 20:00 60 05/04/20 20:00 97.7 62 18 124/51 (75) 94 05/04/20 16:00 97.7 59 20 110/31 (57) 100 05/04/20 16:00 60 Height (Feet): 5 Height (Inches): 5.00 Weight (Pounds): 295 Cardiovascular: RSR Respiratory: decreased breath sounds Abdomen: soft, non-tender, present bowel sounds Extremities: no cyanosis Laboratory Tests Test 05/04/20 16:13 05/04/20 20:40 05/05/20 12:03 POC Whole Blood Glucose 141 MG/DL (74-106) H 186 MG/DL (74-106) H 132 MG/DL (74-106) H Current Medications Medications (Trade) Dose Ordered Sig/Jesus Route PRN Reason Start Time Stop Time Status Last Admin Dose Admin Acetaminophen (Tylenol) 500 mg Q4H PRN ORAL Temp >100.5 05/02/20 22:19 06/01/20 22:18 05/02/20 22:33 Acetaminophen/ Hydrocodone Bitart ([place]ardt 5/325) 1 tab Q4H PRN ORAL Moderate Pain (Pain Scale 4-6) 05/05/20 11:00 05/12/20 10:59 05/05/20 11:31 Aspirin (ASA) 81 mg DAILY ORAL 04/29/20 09:00 06/08/20 08:59 05/05/20 09:16 Atorvastatin Calcium (Lipitor) 40 mg BEDTIME ORAL 04/28/20 21:00 07/24/20 20:59 05/04/20 20:46 Chlorhexidine Gluconate (Cira-Hex 2%) 1 applic DAILY@2000 TOPIC 04/28/20 20:00 07/22/20 19:59 05/04/20 20:45 Dextrose (Dextrose 50%) 25 ml Q30M PRN IV Hypoglycemia 04/29/20 23:30 07/28/20 23:29 Dextrose (Dextrose 50%) 50 ml Q30M PRN IV Hypoglycemia 04/29/20 23:30 07/28/20 23:29 Docusate Sodium (Colace) 100 mg THREE TIMES A DAY ORAL 04/29/20 13:00 05/29/20 12:59 05/05/20 09:16 Epoetin Jose (Epoetin Jose(ESRD on dialysis)) 10,000 unit SUN-SUN-SUN SUBQ 04/30/20 21:00 07/27/20 20:59 05/03/20 20:59 Folic Acid (Folate) 1 mg DAILY ORAL 04/29/20 09:00 05/26/20 08:59 05/05/20 09:16 Heparin Sodium (Porcine) (Heparin 5000 units/ml) 5,000 units EVERY 12 HOURS SUBQ 04/28/20 21:00 06/12/20 20:59 05/05/20 09:15 Hydralazine HCl (Apresoline) 25 mg Q4H PRN ORAL For blood pressure over 160 sy 04/28/20 19:45 07/24/20 19:36 Insulin Aspart (NovoLOG) BEFORE MEALS AND HS SUBQ 05/02/20 11:30 07/31/20 11:29 05/04/20 20:48 Lansoprazole (Prevacid) 30 mg BIAC ORAL 05/03/20 16:30 06/02/20 16:29 05/05/20 06:02 Meropenem 500 mg/ Sodium Chloride 55 ml @ 110 mls/hr Q24H IVPB 05/03/20 00:00 05/08/20 00:00 05/04/20 23:45 Midodrine (Pro-Amatine) 10 mg THREE TIMES A DAY ORAL 04/29/20 09:00 07/25/20 10:29 05/05/20 09:14 Ondansetron HCl (Zofran) 4 mg Q6H PRN IVP Nausea & Vomiting 04/28/20 19:45 05/25/20 19:37 05/03/20 06:23 Sevelamer Carbonate (Renvela) 800 mg THREE TIMES A DAY ORAL 04/29/20 09:00 07/23/20 08:59 05/05/20 09:16 Vancomycin HCl ([facility] pharmacy to dose) 1 ea DAILY PRN MISC Per rx protocol 04/28/20 19:45 05/28/20 19:44 Kathia Lei M.D. May 05, 2020 12:49
--- NOTE | 2020-05-05 13:45 | Surgery Progress Note ---
Surgery Progress Note Subjective Symptoms: improved, tolerating diet, voiding well, passing flatus, BM Objective Last 24 Hour Vital Signs Date Time Temp Pulse Resp B/P (MAP) Pulse Ox O2 Delivery O2 Flow Rate FiO2 05/05/20 12:00 60 05/05/20 12:00 97.5 60 18 108/45 (66) 99 05/05/20 08:00 60 05/05/20 08:00 97.7 60 20 121/59 (79) 100 05/05/20 04:00 60 05/05/20 04:00 97.5 59 18 131/50 (77) 96 05/05/20 00:00 97.4 65 21 106/71 (83) 96 05/05/20 00:00 60 05/04/20 20:15 98 Nasal Cannula 2.0 28 05/04/20 20:00 60 05/04/20 20:00 97.7 62 18 124/51 (75) 94 05/04/20 16:00 97.7 59 20 110/31 (57) 100 05/04/20 16:00 60 I&O Intake and Output 05/04/20 05/05/20 19:00 07:00 Intake Total 0 ml Balance 0 ml Intake Oral 0 ml Dressing: saturated Cardiovascular: RSR Respiratory: clear Abdomen: soft, non-tender, present bowel sounds Extremities: edema, no tenderness, no cyanosis Laboratory Tests Test 05/04/20 16:13 05/04/20 20:40 05/05/20 12:03 POC Whole Blood Glucose 141 MG/DL (74-106) H 186 MG/DL (74-106) H 132 MG/DL (74-106) H Plan Problems: (1) Diabetic nephropathy (2) Cellulitis of left foot Assessment & Plan: Pt presented on admission with Moisture Intertrigo Bilat Breasts and Abdominal folds. Unstageable Pressure Injury Lateral L heel (L) 2.2cm x (W)2.2cm. Base of wound is 80% soft necrosis,10% slough, remaining 10% monique.Epibole approx 50% borders,50% pink. Small amt Brownish exudate. Wound is malodorous. Loose non-viable tissue removed.Base of wound now 90% slough,10% monique. Odor improved post cleansing. Therahoney applied with small 2x2 packing, covered with ABD pad and wrapped with Kerlix until orders for wound care can be clarified with DPM. Both feet are cold to touch and dusky at distal aspect including metatarsals both feet;dorsum L 3rd metatarsal is black. Dry eschar noted to L 1st metatarsal head(L)1.1cm x (W)1.6cm.Pt complained of pain LLE and L foot to slightest touch or movement R heel is boggy and pale. Moisture Intertrigo skin folds both breasts and abdominal folds. Both areas are malodorous. Cleansed with soap and water and gently dried. Phytoplex Antifungal Powder applied to affected areas. R and L groin are moist and erythematous. Moisture Barrier Paste applied. Darker skin tone with two small indurated areas at Sacrococcygeal area noted. Pt complained site tender when minimally palpated. In close proximity above coccyx at cleft is resolving Pressure injury. Norlina epithelial noted. An area of hyperpigmentation with pink epithelial medially noted to L Ischial tuberosity. Hyperpigmentation noted to R Ischium. Tx.Plan: Wash and dry skin folds both breasts and Abdominal folds. Apply Light Dusting of Antifungal powder Twice Daily. Apply Moisture Barrier Paste to Bilat groin and Buttocks with each Incontinence care. Cover Sacrum with Optifoam drsg. Change every 3 days and prn. Apply Cavilon Skin Barrier to bilateral Heel and Malleoli. Cover with Optifoam drsg. Change every 7 days and prn. Reposition at least every 2hours or as tolerated. Off-load heels with pillow. Flow images demonstrate overall asymmetrically increased flow in the right foot, particularly in the region of the calcaneal tuberosity, midfoot and forefoot. There is equivocally slightly increased flow in the left heel. Blood pool images likewise demonstrate increased activity on the right, involving the midfoot and forefoot. Very subtle slightly increased activity is seen in the region of the left calcaneal tuberosity. On the static images, there is very mildly prominent activity in the left calcaneal tuberosity, but this is actually less striking than on the contralateral side. Ill-defined increased activity is seen in the left midfoot and in the right midfoot and forefoot. There is some increased activity in the region of the right metatarsophalangeal joint which is probably degenerative in nature. Impression: No significant abnormality in the left heel to suggest osteomyelitis of the location of clinically described left heel wound. Mild bilateral abnormal uptake, as detailed above, likely reflecting degenerative changes PATIENT PROVIDED WITH P.O. TRIALS OF THIN LIQUID AND MECHANICAL SOFT SOLIDS. SHE COMPLAINED ABOUT THE TEXTURE AND HAS A HISTORY OF REFUSING MEALS. WITH MULTIPLE P.O. TRIALS OF THIN LIQUIDS VIA STRAW, PATIENT HAD TO BE CUED TO NOT BE IMPULSIVE WITH SEQUENTIAL SIPS. DURING THESE TRIALS HER VOCAL QUALITY REMAINED CLEAR. NO COUGH OR THROAT CLEAR OBSERVED. SHE REPORTED THAT SHE LIVES AT HOME WITH HER DAUGHTER. HER DECREASED MENTATION PREVENTED HER FROM INDEPENDENTLY RECALLING MEALTIME PRECAUTIONS WHICH HAD BEEN POSTED AT BEDSIDE TO MINIMIZE RISK OF ASPIRATION. CLINICIAN REVIEWED PRECAUTIONS BUT PATIENT HAD DIFFICULTY RETAINING THE INFORMATION. CLEARLY SHE NEEDS SUPERVISED/ASSISTED P.O. RECOMMENDATIONS: 1. CONTINUE CURRENT DIET WITH ADVANCE TEXTURE TRIALS WITH GAS SUBSTATION OPERATOR 2. SUPERVISED P.O. 3. CONTINUE TO REVIEW/REINFORCE MEALTIME PRECAUTIONS WITH PATIENT 4. ST TO CONTINUE TO FOLLOWUP WITH DIET TEXTURE ADJUSTMENTS POSSIBLE (3) Pacemaker (4) Anemia in chronic kidney disease (CKD) (5) History of CVA (cerebrovascular accident) (6) History of atrial fibrillation (7) ESRD (end stage renal disease) (8) COPD (chronic obstructive pulmonary disease) (9) Bradycardia (10) Diabetic nephropathy (11) Hypertensive kidney disease (12) Volume overload (13) Heel abrasion (14) Elevated troponin I level (15) Urinary tract infection due to Proteus (16) Dyspnea (17) Symptomatic anemia (18) Acute on chronic renal failure (19) Anemia (20) HTN (hypertension) Luis Alberto Cade May 05, 2020 13:45
--- NOTE | 2020-05-05 14:05 | NUR ---
ST DAILY NOTE DYSPHAGIA TX/MANAGEMENT. Patient being seen for dysphagia tx and management with ongoing inconsistent and poor PO intake of current diet recommendation: Mechanical soft, ground with thin liquids. Per RN, Patient appears to be refusing PO due to appetite versus preferences. Per NA, Patient is able to consume more of meal tray overall if fed in small meals throughout the day. HANDSTITCHING MACHINE COLLAR FELLER saw Patient at bedside on 2L nasal cannula, with RR 18, HR: 60, SP02 99%, VSS duration of the session. Patient reports not being hungry, when Patient was asked about current diet and type, Patient reports not liking the ground solids consistency. HANDSTITCHING MACHINE COLLAR FELLER discussed with RN and NA regarding completing a meal tray trial during lunch of tuna salad on crackers with thin liquids; HANDSTITCHING MACHINE COLLAR FELLER spoke with kitchen and arranged for trial tray to be sent. ---Per NA, Patient did accept trial tray with no overt s/s of aspiration. HANDSTITCHING MACHINE COLLAR FELLER spoke with Patient and educated on plan to upgrade diet, strategies to improve Patients safety during swallowing such as sitting up right, and importance of optimizing PO intake for nutrition and hydration. Patient continues to benefit from 1 to 1 careful handfeeding and 6 small meals throughout the day (versus 3 large meals). RECOMMENDATIONS: 1. Upgrade Diet to Mechanical Soft-Chopped with Thin Liquids via 1 to 1 careful hand feeding (please allow Patient to take breaks during PO intake to optimize Patients intake of nutrition/hydration). -Per RD: RENAL DIET + DOUBLE PROTEIN PORTIONS, + Add NEPRO 1 tetra w/ meals , +SOLEDAD BID + Nephrovite x1 daily 2. HANDSTITCHING MACHINE COLLAR FELLER plans to f/u with Patient for diet tolerance and dysphagia tx 1-2x prior to discharging Patient from ST intervention as Patient continues to make progress towards meeting all goals. 3. Please continue to assist Patient with oral hygiene/care BID. HANDSTITCHING MACHINE COLLAR FELLER will f/u tomorrow for diet tolerance and dysphagia tx/management HANDSTITCHING MACHINE COLLAR FELLER [phone]
--- NOTE | 2020-05-05 14:54 | Nephrology Progress Note ---
Assessment/Plan Problem List: (1) ESRD (end stage renal disease) (2) Pacemaker (3) Diabetic nephropathy (4) Cellulitis of left foot (5) Anemia in chronic kidney disease (CKD) (6) History of CVA (cerebrovascular accident) (7) History of atrial fibrillation Plan May 05: Due for dialysis today. Vascular access to be placed as an outpatient. If discharge will continue antibiotics during dialysis 3 times a week. May 04: Dialysis tomorrow. Due for placement of vascular access. Stable from renal standpoint of view. May 03: Due for dialysis today. Hemoglobin higher at 8.8 today. Continue per consultants. May 02: Dialyzed yesterday. Will order dialysis tomorrow. 1 unit blood transfusion for low hemoglobin. Continue rest of medications. May 01: Patient due for dialysis today. Continue to monitor renal parameters and dialyze as needed. Continue per ID. Will check lab tomorrow. April 30: Patient due for insertion of a permacath today. Will arrange for dialysis tomorrow. Blood cultures remain negative. COVID-19 test negative. Discussed with RN. April 29: Permacath was taken out yesterday. Will place the catheter tomorrow. Blood cultures negative so far. Continue per consultants. April 28: Dialyzed yesterday. Will remove permacath today. Will do surveillance blood culture. Will aim to put catheter back in 48 hours. April 27: Due for dialysis today. Potassium 5.6. Will give Kayexalate. Blood pressure better under control. Continue per consultants. Also as per ID recommendation based on the blood culture results will remove the permacath tomorrow and will send the tip for culture. Will aim to have another catheter in 48 hours later. In the interim we will do surveillance blood culture. Patient received dialysis last evening for hyperkalemia. Patient had to be transferred to ICU for low blood pressure despite of multiple fluid challenges. Currently in ICU blood pressure 85-90 systolic. Patient on no blood pressure medication. Troponin I slightly elevated. 2D echocardiogram pending. Will start midodrine. Will aim to dialyze tomorrow. Monitor H&H and renal parameters and electrolytes Antibiotic per ID Pain medication adjusted Continue per consultants Subjective ROS Limited/Unobtainable: No Constitutional: Reports: malaise Objective Objective Last 24 Hour Vital Signs Date Time Temp Pulse Resp B/P (MAP) Pulse Ox O2 Delivery O2 Flow Rate FiO2 05/05/20 12:00 60 05/05/20 12:00 97.5 60 18 108/45 (66) 99 05/05/20 08:00 60 05/05/20 08:00 97.7 60 20 121/59 (79) 100 05/05/20 04:00 60 05/05/20 04:00 97.5 59 18 131/50 (77) 96 05/05/20 00:00 97.4 65 21 106/71 (83) 96 05/05/20 00:00 60 05/04/20 20:15 98 Nasal Cannula 2.0 28 05/04/20 20:00 60 05/04/20 20:00 97.7 62 18 124/51 (75) 94 05/04/20 16:00 97.7 59 20 110/31 (57) 100 05/04/20 16:00 60 Intake and Output 05/04/20 05/05/20 19:00 07:00 Intake Total 0 ml Balance 0 ml Intake Oral 0 ml Laboratory Tests 05/04/20 16:13: POC Whole Blood Glucose 141H 05/04/20 20:40: POC Whole Blood Glucose 186H 05/05/20 12:03: POC Whole Blood Glucose 132H Height (Feet): 5 Height (Inches): 5.00 Weight (Pounds): 295 General Appearance: no apparent distress Cardiovascular: normal rate Respiratory/Chest: decreased breath sounds Abdomen: soft Objective No change Manas Stephenson MD May 05, 2020 14:54
--- NOTE | 2020-05-05 15:22 | NUR ---
CASE MANAGEMENT:REVIEW 05/05/20 SI: SEPSIS. BACTEREMIA. LINE SEPSIS 97.5 60 18 108/45 99% ON RA IS: IV MEROPENEM Q24 SS INSULIN AC+HS EPOETIN SQ MWF PROTONIX PO Q12 ASA PO QD FOLATE PO QD MIDODRINE PO TID HEPARIN SQ Q12 : TELEMETRY STATUS DCP: PATIENT IS FROM HOME PLAN: HD FOR TODAY
--- NOTE | 2020-05-05 15:25 | NUR ---
DISCHARGE PLANNING PER DR JONES'S ORDER PATIENT CAN DISCHARGE ON IV VANCOMYCIN 750MG ON DIALYSIS DAYS UNTIL 05/10/20 NEXT DOSE DUE 05/07/20 CURRENTLY WAITING FOR PATIENT TO DIALYZED UPON DISCHARGE PATIENT WILL CONTINUE WITH OUTPATIENT DIALYSIS AT [facility] Pamela-W-Fatou OLIVEROS IS OUTPATIENT SPOOLER OPERATOR
[2020-05-05 16:00] VITALS: BP 103/46
--- NOTE | 2020-05-05 16:17 | NUR ---
NURSE NOTES: After lab results from 05/04, per doct. Seema, pt ok to be dialyze as per original order.
--- NOTE | 2020-05-05 19:20 | NUR ---
NURSE NOTES: RECEIVED REPORT FROM VIKAS THURMAN. AAOX4, VERBALLY RESPONSIVE, ABLE TO MAKE NEEDS KNOWN. NOTED TO HAVE 1 EPISODE OF VOMITING- MODERATE AMOUNT, EMESIS IS BEIGE IN COLOR, PATIENT DENIES FEELINGS OF NAUSEA, BUT INSTEAD SAID IT "MAY BE BECAUSE I'M ANXIOUS". PATIENT CLEANED UP WITH VIKAS THURMAN. NO COMPLAINTS OF PAIN OR DISCOMFORT AT THIS TIME. BREATHING IS EVEN AND UNLABORED ON ROOM AIR, NO S/SX OF DISTRESS NOTED. PUREWICK IN PLACE, HOWEVER NO URINE NOTED IN COLLECTION CHAMBER AT THIS TIME. RIGHT CHEST PERMATCATH INTACT AND ASYMPTOMATIC. IV SITE ON RAC PATENT, INTACT, ASYMPTOMATIC, AND SALINE-LOCKED. ON P200 MATTRESS FOR WOUND MANAGEMENT. FALL PRECAUTIONS IN PLACE. CONTACT ISOLATION IMPLEMENTED. BED LOCKED AND IN LOWEST POSITION, SIDERAILS UP X 3. CALL LIGHT WITHIN REACH, WILL CONTINUE TO MONITOR FOR ANY CHANGES.
--- NOTE | 2020-05-05 19:28 | NUR ---
HAND OUT: PT IN BED JUST VOMITED, PT WAS CLEANED UP WITH INZA/RN. PT IN STABLE CONDITION AND ENDORSED PLAN OF CARE.
[2020-05-05 20:00] VITALS: BP 120/61
[2020-05-05] MEDS: Epoetin Alfa-EPBX(ESRD on dialysis)10,000 unit/ml vial SUBQ SCH (20:37)
[2020-05-05] MEDS: Dyna-Hex 2% Top Sol 2oz TOPIC SCH (20:37)
[2020-05-05] MEDS: Atorvastatin 20mg tab ORAL SCH (20:47)
--- NOTE | 2020-05-05 21:38 | NUR ---
HAND-OFF: Report given to KAY/VIKAS VIDAL. PATIENT ASLEEP AND IN STABLE CONDITION. PLAN OF CARE ENDORSED.
--- NOTE | 2020-05-05 21:44 | NUR ---
Nurses Notes: Received report from VIKAS Glover. Pt. in bed awake, A/OX4, able to make needs known. On RA sating 92%, no resp distress noted. Continue on Cardiac monitoring. No c/o pain. Bed in low position, locked, bed alarm on, side rails up x2, call light with in reach. On low air loss mattress. No distress noted at this time.
[2020-05-05] MEDS: Meropenem 500 MG in NS 55 ML IVPB SCH (23:45)
--- NOTE | 2020-05-05 23:54 | Cardiology Progress Note ---
Assessment/Plan Assessment/Plan 1. Hypotension, resolved, likely caused by S. Capitis, 2D echo shows normal LV systolic function. 2. Slight elevation of troponin I level due to hypotension/shock. Continue ASA and atorvastatin. 3. Paroxysmal atrial fibrillation. Continue amiodarone and apixaban. 4. History of CVA with left hemiparesis. 5. Hypoxic hypercarbic respiratory failure. 6. Dual chamber pacemaker, atrial paced, ventricular sensed. Subjective Subjective Atrial paced ventricular sensed at rate of 60. On NC oxygen. Objective Last 24 Hour Vital Signs Date Time Temp Pulse Resp B/P (MAP) Pulse Ox O2 Delivery O2 Flow Rate FiO2 05/05/20 21:00 Room Air Room Air Room Air 05/05/20 20:00 73 05/05/20 20:00 96 Room Air 21 05/05/20 20:00 99.0 69 19 120/61 (80) 96 05/05/20 16:00 97.9 60 20 103/46 (65) 98 05/05/20 16:00 65 05/05/20 12:00 60 05/05/20 12:00 97.5 60 18 108/45 (66) 99 05/05/20 08:00 60 05/05/20 08:00 97.7 60 20 121/59 (79) 100 05/05/20 04:00 60 05/05/20 04:00 97.5 59 18 131/50 (77) 96 05/05/20 00:00 97.4 65 21 106/71 (83) 96 05/05/20 00:00 60 Intake and Output 05/04/20 05/05/20 19:00 07:00 Intake Total 0 ml Balance 0 ml Intake Oral 0 ml 2D Echo: LVEF 60%, JENY, Severe VA, RVSP 61 mmHg Laboratory Tests Test 05/05/20 12:03 POC Whole Blood Glucose 132 MG/DL (74-106) H Objective HEENT: Atraumatic, normocephalic. Anicteric. Pupils are equal, round, and reactive to light and accommodation. Extraocular muscles intact. NECK: JVP cannot be assessed. No carotid bruit. Carotid upstroke is 2+ bilaterally. CARDIOVASCULAR: Normal S1, S2. There is 2/6 mid systolic murmur at the left sternal border. PMI is at fourth intercostal space at the midclavicular line, + pacemaker pocket left side. LUNGS: Bibasilar crackles. ABDOMEN: Soft, nontender, and nondistended. No hepatosplenomegaly. Positive bowel sounds. EXTREMITIES: Diminished dorsalis pedis pulses of 1+. There is diminished motor function on the left lower extremity and upper extremity. Triston Joy MD May 05, 2020 23:54
[2020-05-06] VITALS: BP 130/59
[2020-05-06 04:00] VITALS: BP 155/55
[2020-05-06] MEDS: NovoLOG Insulin Flexpen SUBQ SCH ×2 (06:03→11:30)
[2020-05-06 06:43] LABS: BASOPHILS % (AUTO) 1.3 % (0.0-2.0); EOSINOPHILS % (AUTO) 3.1 % (0.0-3.0); HEMATOCRIT 25.9 % (37.0-47.0); HEMOGLOBIN 8.2 G/DL (12.0-16.0); MEAN CORPUSCULAR VOLUME 96 FL (80-99); MONOCYTES % (AUTO) 12.2 % (1.0-10.0); NEUTROPHILS % (AUTO) 65.3 % (45.0-75.0); PLATELET COUNT 176 K/UL (150-450); RED BLOOD COUNT 2.71 M/UL (4.20-5.40); RED CELL DISTRIBUTION WIDTH 15.7 % (11.6-14.8); WHITE BLOOD COUNT 7.5 K/UL (4.8-10.8)
[2020-05-06 07:19] LABS: ALANINE AMINOTRANSFERASE 9 U/L (12-78); ALBUMIN 2.8 G/DL (3.4-5.0); ALBUMIN/GLOBULIN RATIO 0.9 (1.0-2.7); ALKALINE PHOSPHATASE 63 U/L (46-116); ANION GAP 4 mmol/L (5-15); ASPARTATE AMINO TRANSFERASE 11 U/L (15-37); BILIRUBIN,TOTAL 0.3 MG/DL (0.2-1.0); BLOOD UREA NITROGEN 28 mg/dL (7-18); CALCIUM 8.9 MG/DL (8.5-10.1); CARBON DIOXIDE 34 MMOL/L (21-32); CHLORIDE 98 MMOL/L (98-107); CREATININE 4.3 MG/DL (0.55-1.30); PHOSPHORUS 2.2 MG/DL (2.5-4.9); POTASSIUM 3.5 MMOL/L (3.5-5.1); SODIUM 136 MMOL/L (136-145)
--- NOTE | 2020-05-06 07:25 | NUR ---
HAND-OFF: Report given to VIKAS Cespedes and endorsed plan of care.
--- NOTE | 2020-05-06 07:30 | NUR ---
NURSE NOTES: PT, in bed resting. pt AOx2. pt on fundraising director no signs of cardiac or respiratory distress. pt has DC planning. Bed is locked and in lowest position. Call light within reach. Bed alarm on. will continue to monitor pt.
[2020-05-06 08:00] VITALS: BP 146/63
[2020-05-06] MEDS: Heparin 5000 units/ml inj SUBQ SCH (09:00)
[2020-05-06] MEDS: Midodrine 10mg tab ORAL SCH (09:00)
[2020-05-06] MEDS ORDERED: Vanco pharmacy to dose MISC (09:10)
--- NOTE | 2020-05-06 09:13 | General Progress Note ---
Assessment/Plan Status: stable, unchanged Assessment/Plan: S: appears comfortable. O: controlled pain . seen and examined in Tele unit. talks and communicate PHYSICAL EXAMINATION: HEAD AND NECK: Atraumatic and normocephalic. CHEST: Right IJ permcath in place, Clear to auscultation. HEART: S1, S2. Regular rate and rhythm. Bradycardic. MUSCULOSKELETAL: paraparesis. stage 3 decubitus wound in calcaneal region. NEUROLOGIC: The patient is awake and alert x 2. LABORATORY AND DIAGNOSTIC DATA: Labs dated 05/05/20 reviewed Imaging: bone scan dated April 28 reviewed ASSESSMENT: 1. Sepsis secondary to Gram positive coccidiema , likely line infection 2. Acute Hypoxemic respiratory failure, s/p rapid response assessment 2. Hypotension : ddx; adrenal insufficiency 3. HyperKalemia 2. Decubitus wound, enlarging and infected. 3. End-stage renal disease, on temporary PermCath hemodialysis access. 2. Paroxysmal atrial fibrillation, rate is stable. 3. Diabetes type 2. 4. Hypertension. 5. Hyperlipidemia. 6. CVA-history. 7. CHF-Diastolic type 8. Dementia. 8. Gastrointestinal and deep vein thrombosis prophylaxes. 9. Pain management 10. iron deficiency anemia Plan: Empirical abx initiated Notes from [facility] care reviewed Notified Dr Fam and D/w Dr Saavedra c/w Batsheva PRN breakthrough Consulte Hem onch Post Calcium/Novolog/D50 treatment with favorable response HD per nephrology will remove HD access post HD D/w Nephrology, ID and Vascular surgeon DC the eliquis in anticipation of Vascular procedures post reinsertion of PermCath D/W Dr Fam for revision of AV G-F D/W Rn to change the insulin regiment to avoid hypoglycemia One episode of fever, re cultured. Negative blood cultures x 5 days otherwise Proceed with Right sided AVG placement, as there is no medical contra- indication at this time. Cardiology, ID, pulmonary services notified about this plan of care Hold on AVG placment, Given non-emergency basis for this procedure and benefit for continuation of IV abx and assurance of a sustained negative bacteremia Notes from ID reviwed. Ok to c/w abx as an outpatient Subjective Allergies: Coded Allergies: PENICILLINS (Verified Allergy, Unknown, 04/23/20) Tolerated Cefepime 7/17/20 Objective Last 24 Hour Vital Signs Date Time Temp Pulse Resp B/P (MAP) Pulse Ox O2 Delivery O2 Flow Rate FiO2 05/06/20 09:07 Room Air Room Air Room Air 05/06/20 08:00 60 05/06/20 04:00 98.1 61 18 155/55 (88) 97 05/06/20 04:00 61 05/06/20 00:00 67 05/06/20 00:00 97.9 69 19 130/59 (82) 97 05/05/20 21:00 Room Air Room Air Room Air 05/05/20 20:00 73 05/05/20 20:00 96 Room Air 21 05/05/20 20:00 99.0 69 19 120/61 (80) 96 05/05/20 16:00 97.9 60 20 103/46 (65) 98 05/05/20 16:00 65 05/05/20 12:00 60 05/05/20 12:00 97.5 60 18 108/45 (66) 99 Intake and Output 05/05/20 05/06/20 19:00 07:00 Intake Total 120 ml Balance 120 ml Intake Oral 120 ml Laboratory Tests 05/05/20 12:03: POC Whole Blood Glucose 132H 05/06/20 05:38: POC Whole Blood Glucose 106 05/06/20 06:00: White Blood Count 7.5, Red Blood Count 2.71L, Hemoglobin 8.2L, Hematocrit 25.9L , Mean Corpuscular Volume 96, Mean Corpuscular Hemoglobin 30.5, Mean Corpuscular Hemoglobin Concent 31.8L, Red Cell Distribution Width 15.7H, Platelet Count 176, Mean Platelet Volume 7.3, Neutrophils (%) (Auto) 65.3, Lymphocytes (%) (Auto) 18.0L, Monocytes (%) (Auto) 12.2H, Eosinophils (%) (Auto ) 3.1H, Basophils (%) (Auto) 1.3, Sodium Level 136, Potassium Level 3.5, Chloride Level 98, Carbon Dioxide Level 34H, Anion Gap 4L, Blood Urea Nitrogen 28H, Creatinine 4.3H, Estimat Glomerular Filtration Rate 12.4, Glucose Level 103 , Calcium Level 8.9, Phosphorus Level 2.2L, Magnesium Level 2.3, Total Bilirubin 0.3, Aspartate Amino Transf (AST/SGOT) 11L, Alanine Aminotransferase ( ALT/SGPT) 9L, Alkaline Phosphatase 63, C-Reactive Protein, Quantitative 2.6H, Total Protein 6.0L, Albumin 2.8L, Globulin 3.2, Albumin/Globulin Ratio 0.9L, Random Vancomycin Level 20.0 Height (Feet): 5 Height (Inches): 5.00 Weight (Pounds): 296 Danie Banegas MD May 06, 2020 09:13
[2020-05-06] MEDS: Renvela 800mg Pkt ORAL SCH (09:43)
[2020-05-06] MEDS: Docusate 100mg/10ml Liq ORAL SCH ×2 (09:43→13:17)
[2020-05-06] MEDS: Aspirin Baby 81mg ORAL SCH (09:44)
--- NOTE | 2020-05-06 10:06 | Pulmonology Progress Note ---
Subjective ROS Limited/Unobtainable: No Interval Events: None new HEENT: Repors: no symptoms Respiratory: Reports: no symptoms Cardiovascular: Reports: no symptoms Gastrointestinal/Abdominal: Reports: no symptoms Allergies: Coded Allergies: PENICILLINS (Verified Allergy, Unknown, 04/23/20) Tolerated Cefepime 04/23/20 Objective Last 24 Hour Vital Signs Date Time Temp Pulse Resp B/P (MAP) Pulse Ox O2 Delivery O2 Flow Rate FiO2 05/06/20 09:07 Room Air Room Air Room Air 05/06/20 08:00 60 05/06/20 08:00 96.7 60 21 146/63 (90) 96 05/06/20 04:00 98.1 61 18 155/55 (88) 97 05/06/20 04:00 61 05/06/20 00:00 67 05/06/20 00:00 97.9 69 19 130/59 (82) 97 05/05/20 21:00 Room Air Room Air Room Air 05/05/20 20:00 73 05/05/20 20:00 96 Room Air 21 05/05/20 20:00 99.0 69 19 120/61 (80) 96 05/05/20 16:00 97.9 60 20 103/46 (65) 98 05/05/20 16:00 65 05/05/20 12:00 60 05/05/20 12:00 97.5 60 18 108/45 (66) 99 Intake and Output 05/05/20 05/06/20 19:00 07:00 Intake Total 120 ml Balance 120 ml Intake Oral 120 ml General Appearance: no acute distress HEENT: normocephalic Respiratory: chest wall non-tender Cardiovascular: normal peripheral pulses Abdomen: soft, non tender Laboratory Tests 05/05/20 12:03: POC Whole Blood Glucose 132H 05/06/20 05:38: POC Whole Blood Glucose 106 05/06/20 06:00: White Blood Count 7.5, Red Blood Count 2.71L, Hemoglobin 8.2L, Hematocrit 25.9L , Mean Corpuscular Volume 96, Mean Corpuscular Hemoglobin 30.5, Mean Corpuscular Hemoglobin Concent 31.8L, Red Cell Distribution Width 15.7H, Platelet Count 176, Mean Platelet Volume 7.3, Neutrophils (%) (Auto) 65.3, Lymphocytes (%) (Auto) 18.0L, Monocytes (%) (Auto) 12.2H, Eosinophils (%) (Auto ) 3.1H, Basophils (%) (Auto) 1.3, Sodium Level 136, Potassium Level 3.5, Chloride Level 98, Carbon Dioxide Level 34H, Anion Gap 4L, Blood Urea Nitrogen 28H, Creatinine 4.3H, Estimat Glomerular Filtration Rate 12.4, Glucose Level 103 , Calcium Level 8.9, Phosphorus Level 2.2L, Magnesium Level 2.3, Total Bilirubin 0.3, Aspartate Amino Transf (AST/SGOT) 11L, Alanine Aminotransferase ( ALT/SGPT) 9L, Alkaline Phosphatase 63, C-Reactive Protein, Quantitative 2.6H, Total Protein 6.0L, Albumin 2.8L, Globulin 3.2, Albumin/Globulin Ratio 0.9L, Random Vancomycin Level 20.0 Current Medications Medications (Trade) Dose Ordered Sig/Jesus Route PRN Reason Start Time Stop Time Status Last Admin Dose Admin Acetaminophen (Tylenol) 500 mg Q4H PRN ORAL Temp >100.5 05/02/20 22:19 06/01/20 22:18 05/02/20 22:33 Acetaminophen/ Hydrocodone Bitart (Dell 5/325) 1 tab Q4H PRN ORAL Moderate Pain (Pain Scale 4-6) 05/05/20 11:00 05/12/20 10:59 05/05/20 18:31 Aspirin (ASA) 81 mg DAILY ORAL 04/29/20 09:00 06/08/20 08:59 05/06/20 09:44 Atorvastatin Calcium (Lipitor) 40 mg BEDTIME ORAL 04/28/20 21:00 07/24/20 20:59 05/05/20 20:47 Chlorhexidine Gluconate (Cira-Hex 2%) 1 applic DAILY@1999 TOPIC 04/28/20 20:00 07/22/20 19:59 05/05/20 20:37 Dextrose (Dextrose 50%) 25 ml Q30M PRN IV Hypoglycemia 04/29/20 23:30 07/28/20 23:29 Dextrose (Dextrose 50%) 50 ml Q30M PRN IV Hypoglycemia 04/29/20 23:30 07/28/20 23:29 Docusate Sodium (Colace) 100 mg THREE TIMES A DAY ORAL 04/29/20 13:00 05/29/20 12:59 05/06/20 09:43 Epoetin Jose (Epoetin Jose(ESRD on dialysis)) 10,000 unit SUN-SUN-SUN SUBQ 04/30/20 21:00 07/27/20 20:59 05/05/20 20:37 Folic Acid (Folate) 1 mg DAILY ORAL 04/29/20 09:00 05/26/20 08:59 05/06/20 09:44 Heparin Sodium (Porcine) (Heparin 5000 units/ml) 5,000 units EVERY 12 HOURS SUBQ 04/28/20 21:00 06/12/20 20:59 05/06/20 09:00 Hydralazine HCl (Apresoline) 25 mg Q4H PRN ORAL For blood pressure over 160 sy 04/28/20 19:45 07/24/20 19:36 Insulin Aspart (NovoLOG) BEFORE MEALS AND HS SUBQ 05/02/20 11:30 07/31/20 11:29 05/05/20 20:47 Lansoprazole (Prevacid) 30 mg BIAC ORAL 05/03/20 16:30 06/02/20 16:29 05/06/20 06:01 Meropenem 500 mg/ Sodium Chloride 55 ml @ 110 mls/hr Q24H IVPB 05/03/20 00:00 05/08/20 00:00 05/05/20 23:45 Midodrine (Pro-Amatine) 10 mg THREE TIMES A DAY ORAL 04/29/20 09:00 07/25/20 10:29 05/05/20 13:51 Ondansetron HCl (Zofran) 4 mg Q6H PRN IVP Nausea & Vomiting 04/28/20 19:45 05/25/20 19:37 05/03/20 06:23 Sevelamer Carbonate (Renvela) 800 mg THREE TIMES A DAY ORAL 04/29/20 09:00 07/23/20 08:59 05/06/20 09:43 Vancomycin HCl (Vanco pharmacy to dose) 1 ea DAILY PRN MISC Per rx protocol 04/28/20 19:45 05/28/20 19:44 Assessment/Plan Assessment/Plan ASSESSMENT: 1. Mild pulmonary edema 2. Decubitus wound, 3. End-stage renal disease, with PermCath hemodialysis access. 2. Paroxysmal atrial fibrillation, 3. Diabetes type 2. 4. Hypertension. 5. Hyperlipidemia. 6. CVA-history. 7. Dementia. Plan: Continue local wound care Will continue oxygen and pulmonary hygiene Broad spectrum abx DC planning HD per renal; Suraj Henriquez MD May 06, 2020 10:06
[2020-05-06] MEDS: HYDROcodone/Acetamin 5/325 tab ORAL PRN (10:11)
--- NOTE | 2020-05-06 10:29 | Nephrology Progress Note ---
Assessment/Plan Problem List: (1) ESRD (end stage renal disease) (2) Pacemaker (3) Diabetic nephropathy (4) Cellulitis of left foot (5) Anemia in chronic kidney disease (CKD) (6) History of CVA (cerebrovascular accident) (7) History of atrial fibrillation Plan May 06: Blood pressure stable. With a change midodrine to as needed. Hemodialysis tomorrow. Continue per ID management. May 05: Due for dialysis today. Vascular access to be placed as an outpatient. If discharge will continue antibiotics during dialysis 3 times a week. May 04: Dialysis tomorrow. Due for placement of vascular access. Stable from renal standpoint of view. May 03: Due for dialysis today. Hemoglobin higher at 8.8 today. Continue per consultants. May 02: Dialyzed yesterday. Will order dialysis tomorrow. 1 unit blood transfusion for low hemoglobin. Continue rest of medications. May 01: Patient due for dialysis today. Continue to monitor renal parameters and dialyze as needed. Continue per ID. Will check lab tomorrow. April 30: Patient due for insertion of a permacath today. Will arrange for dialysis tomorrow. Blood cultures remain negative. COVID-19 test negative. Discussed with RN. April 29: Permacath was taken out yesterday. Will place the catheter tomorrow. Blood cultures negative so far. Continue per consultants. April 28: Dialyzed yesterday. Will remove permacath today. Will do surveillance blood culture. Will aim to put catheter back in 48 hours. April 27: Due for dialysis today. Potassium 5.6. Will give Kayexalate. Blood pressure better under control. Continue per consultants. Also as per ID recommendation based on the blood culture results will remove the permacath tomorrow and will send the tip for culture. Will aim to have another catheter in 48 hours later. In the interim we will do surveillance blood culture. Patient received dialysis last evening for hyperkalemia. Patient had to be transferred to ICU for low blood pressure despite of multiple fluid challenges. Currently in ICU blood pressure 85-90 systolic. Patient on no blood pressure medication. Troponin I slightly elevated. 2D echocardiogram pending. Will start midodrine. Will aim to dialyze tomorrow. Monitor H&H and renal parameters and electrolytes Antibiotic per ID Pain medication adjusted Continue per consultants Subjective ROS Limited/Unobtainable: No Constitutional: Reports: malaise Objective Objective Last 24 Hour Vital Signs Date Time Temp Pulse Resp B/P (MAP) Pulse Ox O2 Delivery O2 Flow Rate FiO2 05/06/20 09:07 Room Air Room Air Room Air 05/06/20 08:00 60 05/06/20 08:00 96.7 60 21 146/63 (90) 96 05/06/20 04:00 98.1 61 18 155/55 (88) 97 05/06/20 04:00 61 05/06/20 00:00 67 05/06/20 00:00 97.9 69 19 130/59 (82) 97 05/05/20 21:00 Room Air Room Air Room Air 05/05/20 20:00 73 05/05/20 20:00 96 Room Air 21 05/05/20 20:00 99.0 69 19 120/61 (80) 96 05/05/20 16:00 97.9 60 20 103/46 (65) 98 05/05/20 16:00 65 05/05/20 12:00 60 05/05/20 12:00 97.5 60 18 108/45 (66) 99 Intake and Output 05/05/20 05/06/20 19:00 07:00 Intake Total 120 ml Balance 120 ml Intake Oral 120 ml Current Medications Medications (Trade) Dose Ordered Sig/Jesus Route PRN Reason Start Time Stop Time Status Last Admin Dose Admin Acetaminophen (Tylenol) 500 mg Q4H PRN ORAL Temp >100.5 05/02/20 22:19 06/01/20 22:18 05/02/20 22:33 Acetaminophen/ Hydrocodone Bitart (Rembrandt 5/325) 1 tab Q4H PRN ORAL Moderate Pain (Pain Scale 4-6) 05/05/20 11:00 05/12/20 10:59 05/06/20 10:11 Aspirin (ASA) 81 mg DAILY ORAL 04/29/20 09:00 06/08/20 08:59 05/06/20 09:44 Atorvastatin Calcium (Lipitor) 40 mg BEDTIME ORAL 04/28/20 21:00 07/24/20 20:59 05/05/20 20:47 Chlorhexidine Gluconate (Cira-Hex 2%) 1 applic DAILY@1999 TOPIC 04/28/20 20:00 07/22/20 19:59 05/05/20 20:37 Dextrose (Dextrose 50%) 25 ml Q30M PRN IV Hypoglycemia 04/29/20 23:30 07/28/20 23:29 Dextrose (Dextrose 50%) 50 ml Q30M PRN IV Hypoglycemia 04/29/20 23:30 07/28/20 23:29 Docusate Sodium (Colace) 100 mg THREE TIMES A DAY ORAL 04/29/20 13:00 05/29/20 12:59 05/06/20 09:43 Epoetin Jose (Epoetin Jose(ESRD on dialysis)) 10,000 unit SUN-SUN-SUN SUBQ 04/30/20 21:00 07/27/20 20:59 05/05/20 20:37 Folic Acid (Folate) 1 mg DAILY ORAL 04/29/20 09:00 05/26/20 08:59 05/06/20 09:44 Heparin Sodium (Porcine) (Heparin 5000 units/ml) 5,000 units EVERY 12 HOURS SUBQ 04/28/20 21:00 06/12/20 20:59 05/06/20 09:00 Hydralazine HCl (Apresoline) 25 mg Q4H PRN ORAL For blood pressure over 160 sy 04/28/20 19:45 07/24/20 19:36 Insulin Aspart (NovoLOG) BEFORE MEALS AND HS SUBQ 05/02/20 11:30 07/31/20 11:29 05/05/20 20:47 Lansoprazole (Prevacid) 30 mg BIAC ORAL 05/03/20 16:30 06/02/20 16:29 05/06/20 06:01 Meropenem 500 mg/ Sodium Chloride 55 ml @ 110 mls/hr Q24H IVPB 05/03/20 00:00 05/08/20 00:00 05/05/20 23:45 Midodrine (Pro-Amatine) 10 mg THREE TIMES A DAY PRN ORAL BP below 100 systolic 05/06/20 10:30 07/25/20 10:29 Ondansetron HCl (Zofran) 4 mg Q6H PRN IVP Nausea & Vomiting 04/28/20 19:45 05/25/20 19:37 05/06/20 10:12 Sevelamer Carbonate (Renvela) 800 mg BID ORAL 05/07/20 09:00 06/07/20 08:59 Vancomycin HCl (Vanco pharmacy to dose) 1 ea DAILY PRN MISC Per rx protocol 04/28/20 19:45 05/28/20 19:44 Laboratory Tests 05/05/20 12:03: POC Whole Blood Glucose 132H 05/06/20 05:38: POC Whole Blood Glucose 106 05/06/20 06:00: White Blood Count 7.5, Red Blood Count 2.71L, Hemoglobin 8.2L, Hematocrit 25.9L , Mean Corpuscular Volume 96, Mean Corpuscular Hemoglobin 30.5, Mean Corpuscular Hemoglobin Concent 31.8L, Red Cell Distribution Width 15.7H, Platelet Count 176, Mean Platelet Volume 7.3, Neutrophils (%) (Auto) 65.3, Lymphocytes (%) (Auto) 18.0L, Monocytes (%) (Auto) 12.2H, Eosinophils (%) (Auto ) 3.1H, Basophils (%) (Auto) 1.3, Sodium Level 136, Potassium Level 3.5, Chloride Level 98, Carbon Dioxide Level 34H, Anion Gap 4L, Blood Urea Nitrogen 28H, Creatinine 4.3H, Estimat Glomerular Filtration Rate 12.4, Glucose Level 103 , Calcium Level 8.9, Phosphorus Level 2.2L, Magnesium Level 2.3, Total Bilirubin 0.3, Aspartate Amino Transf (AST/SGOT) 11L, Alanine Aminotransferase ( ALT/SGPT) 9L, Alkaline Phosphatase 63, C-Reactive Protein, Quantitative 2.6H, Total Protein 6.0L, Albumin 2.8L, Globulin 3.2, Albumin/Globulin Ratio 0.9L, Random Vancomycin Level 20.0 Height (Feet): 5 Height (Inches): 5.00 Weight (Pounds): 296 General Appearance: no apparent distress, lethargic Cardiovascular: normal rate Respiratory/Chest: decreased breath sounds Abdomen: soft Objective No change Manas Stephenson MD May 06, 2020 10:29
[2020-05-06] MEDS ORDERED: Midodrine 10mg tab ORAL PRN (10:30)
--- NOTE | 2020-05-06 11:38 | Surgery Progress Note ---
Surgery Progress Note Subjective Additional Comments doing well feels better comfortable no n/v/f/c labs noted cellulitis resolved moving her feet and legs well Objective Last 24 Hour Vital Signs Date Time Temp Pulse Resp B/P (MAP) Pulse Ox O2 Delivery O2 Flow Rate FiO2 05/06/20 09:07 Room Air Room Air Room Air 05/06/20 08:00 60 05/06/20 08:00 96.7 60 21 146/63 (90) 96 05/06/20 04:00 98.1 61 18 155/55 (88) 97 05/06/20 04:00 61 05/06/20 00:00 67 05/06/20 00:00 97.9 69 19 130/59 (82) 97 05/05/20 21:00 Room Air Room Air Room Air 05/05/20 20:00 73 05/05/20 20:00 96 Room Air 21 05/05/20 20:00 99.0 69 19 120/61 (80) 96 05/05/20 16:00 97.9 60 20 103/46 (65) 98 05/05/20 16:00 65 05/05/20 12:00 60 05/05/20 12:00 97.5 60 18 108/45 (66) 99 I&O Intake and Output 05/05/20 05/06/20 19:00 07:00 Intake Total 120 ml Balance 120 ml Intake Oral 120 ml Dressing: dry Wound: clean Cardiovascular: RSR Respiratory: decreased breath sounds Abdomen: soft, non-tender, present bowel sounds Extremities: edema - improved, no tenderness, no cyanosis Laboratory Tests Test 05/05/20 12:03 05/06/20 05:38 05/06/20 06:00 05/06/20 11:12 POC Whole Blood Glucose 132 MG/DL (74-106) H 106 MG/DL (74-106) 141 MG/DL (74-106) H White Blood Count 7.5 K/UL (4.8-10.8) Red Blood Count 2.71 M/UL (4.20-5.40) L Hemoglobin 8.2 G/DL (12.0-16.0) L Hematocrit 25.9 % (37.0-47.0) L Mean Corpuscular Volume 96 FL (80-99) Mean Corpuscular Hemoglobin 30.5 PG (27.0-31.0) Mean Corpuscular Hemoglobin Concent 31.8 G/DL (32.0-36.0) L Red Cell Distribution Width 15.7 % (11.6-14.8) H Platelet Count 176 K/UL (150-450) Mean Platelet Volume 7.3 FL (6.5-10.1) Neutrophils (%) (Auto) 65.3 % (45.0-75.0) Lymphocytes (%) (Auto) 18.0 % (20.0-45.0) L Monocytes (%) (Auto) 12.2 % (1.0-10.0) H Eosinophils (%) (Auto) 3.1 % (0.0-3.0) H Basophils (%) (Auto) 1.3 % (0.0-2.0) Sodium Level 136 MMOL/L (136-145) Potassium Level 3.5 MMOL/L (3.5-5.1) Chloride Level 98 MMOL/L (98-107) Carbon Dioxide Level 34 MMOL/L (21-32) H Anion Gap 4 mmol/L (5-15) L Blood Urea Nitrogen 28 mg/dL (7-18) H Creatinine 4.3 MG/DL (0.55-1.30) H Estimat Glomerular Filtration Rate 12.4 mL/min (>60) Glucose Level 103 MG/DL (74-106) Calcium Level 8.9 MG/DL (8.5-10.1) Phosphorus Level 2.2 MG/DL (2.5-4.9) L Magnesium Level 2.3 MG/DL (1.8-2.4) Total Bilirubin 0.3 MG/DL (0.2-1.0) Aspartate Amino Transf (AST/SGOT) 11 U/L (15-37) L Alanine Aminotransferase (ALT/SGPT) 9 U/L (12-78) L Alkaline Phosphatase 63 U/L (46-116) C-Reactive Protein, Quantitative 2.6 mg/dL (0.00-0.90) H Total Protein 6.0 G/DL (6.4-8.2) L Albumin 2.8 G/DL (3.4-5.0) L Globulin 3.2 g/dL Albumin/Globulin Ratio 0.9 (1.0-2.7) L Random Vancomycin Level 20.0 ug/mL Plan Problems: (1) Diabetic nephropathy (2) Cellulitis of left foot Assessment & Plan: Pt presented on admission with Moisture Intertrigo Bilat Breasts and Abdominal folds. Unstageable Pressure Injury Lateral L heel (L) 2.2cm x (W)2.2cm. Base of wound is 80% soft necrosis,10% slough, remaining 10% monique.Epibole approx 50% borders,50% pink. Small amt Brownish exudate. Wound is malodorous. Loose non-viable tissue removed.Base of wound now 90% slough,10% monique. Odor improved post cleansing. Therahoney applied with small 2x2 packing, covered with ABD pad and wrapped with Kerlix until orders for wound care can be clarified with DPM. Both feet are cold to touch and dusky at distal aspect including metatarsals both feet;dorsum L 3rd metatarsal is black. Dry eschar noted to L 1st metatarsal head(L)1.1cm x (W)1.6cm.Pt complained of pain LLE and L foot to slightest touch or movement R heel is boggy and pale. Moisture Intertrigo skin folds both breasts and abdominal folds. Both areas are malodorous. Cleansed with soap and water and gently dried. Phytoplex Antifungal Powder applied to affected areas. R and L groin are moist and erythematous. Moisture Barrier Paste applied. Darker skin tone with two small indurated areas at Sacrococcygeal area noted. Pt complained site tender when minimally palpated. In close proximity above coccyx at Saniya cleft is resolving Pressure injury. [place] epithelial noted. An area of hyperpigmentation with pink epithelial medially noted to L Ischial tuberosity. Hyperpigmentation noted to R Ischium. Tx.Plan: Wash and dry skin folds both breasts and Abdominal folds. Apply Light Dusting of Antifungal powder Twice Daily. Apply Moisture Barrier Paste to Bilat groin and Buttocks with each Incontinence care. Cover Sacrum with Optifoam drsg. Change every 3 days and prn. Apply Cavilon Skin Barrier to bilateral Heel and Malleoli. Cover with Optifoam drsg. Change every 7 days and prn. Reposition at least every 2hours or as tolerated. Off-load heels with pillow. Flow images demonstrate overall asymmetrically increased flow in the right foot, particularly in the region of the calcaneal tuberosity, midfoot and forefoot. There is equivocally slightly increased flow in the left heel. Blood pool images likewise demonstrate increased activity on the right, involving the midfoot and forefoot. Very subtle slightly increased activity is seen in the region of the left calcaneal tuberosity. On the static images, there is very mildly prominent activity in the left calcaneal tuberosity, but this is actually less striking than on the contralateral side. Ill-defined increased activity is seen in the left midfoot and in the right midfoot and forefoot. There is some increased activity in the region of the right metatarsophalangeal joint which is probably degenerative in nature. Impression: No significant abnormality in the left heel to suggest osteomyelitis of the location of clinically described left heel wound. Mild bilateral abnormal uptake, as detailed above, likely reflecting degenerative changes PATIENT PROVIDED WITH P.O. TRIALS OF THIN LIQUID AND MECHANICAL SOFT SOLIDS. SHE COMPLAINED ABOUT THE TEXTURE AND HAS A HISTORY OF REFUSING MEALS. WITH MULTIPLE P.O. TRIALS OF THIN LIQUIDS VIA STRAW, PATIENT HAD TO BE CUED TO NOT BE IMPULSIVE WITH SEQUENTIAL SIPS. DURING THESE TRIALS HER VOCAL QUALITY REMAINED CLEAR. NO COUGH OR THROAT CLEAR OBSERVED. SHE REPORTED THAT SHE LIVES AT HOME WITH HER DAUGHTER. HER DECREASED MENTATION PREVENTED HER FROM INDEPENDENTLY RECALLING MEALTIME PRECAUTIONS WHICH HAD BEEN POSTED AT BEDSIDE TO MINIMIZE RISK OF ASPIRATION. CLINICIAN REVIEWED PRECAUTIONS BUT PATIENT HAD DIFFICULTY RETAINING THE INFORMATION. CLEARLY SHE NEEDS SUPERVISED/ASSISTED P.O. RECOMMENDATIONS: 1. CONTINUE CURRENT DIET WITH ADVANCE TEXTURE TRIALS WITH FIRE APPARATUS ENGINEER 2. SUPERVISED P.O. 3. CONTINUE TO REVIEW/REINFORCE MEALTIME PRECAUTIONS WITH PATIENT 4. ST TO CONTINUE TO FOLLOWUP WITH DIET TEXTURE ADJUSTMENTS POSSIBLE cont current care iv abx per report plan fistula (3) Pacemaker (4) Anemia in chronic kidney disease (CKD) (5) History of CVA (cerebrovascular accident) (6) History of atrial fibrillation (7) ESRD (end stage renal disease) (8) COPD (chronic obstructive pulmonary disease) (9) Bradycardia (10) Diabetic nephropathy (11) Hypertensive kidney disease (12) Volume overload (13) Heel abrasion (14) Elevated troponin I level (15) Urinary tract infection due to Proteus (16) Dyspnea (17) Symptomatic anemia (18) Acute on chronic renal failure (19) Anemia (20) HTN (hypertension) Luis Alberto Cade May 06, 2020 11:38
[2020-05-06 12:00] VITALS: BP 140/64
--- NOTE | 2020-05-06 12:14 | NUR ---
DISCHARGE PLANNING: NOTE DC ORDER NOTED FOR HOME W/ HH CALL PLACED TO PT BEDSIDE PT CONFIRMED THAT SHE IS IN SERVICE WITH A HOME HX CO BUT DOES NOT REMEMBER THE NAME. SHE IS OPEN TO CONTINUING WITH THE PRESENT HOME HX CO. HOME HX COMES OUT 3X/WEEK CALL PLACED TO DTR. 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
--- NOTE | 2020-05-06 12:24 | Hematology/Onc Progress Note ---
Assessment/Plan Assessment/Plan Assessment and Recs # Thombocytopenia is likely 2/2 Cellulitis of left foot --> as per id --> plt trend 150-->102-->92-->103-->133-->148->135->164->153->176 --> hold anticoag if plt <50 --> abx vanc/cefepime # Anemia is likely due to esrd, has been under care of Dr. Stephenson --> continue hd as needed --> with permacath in place on chest, no infection --> EPOGEN 4k dose 3 times a week started --> hgb trend 12-->9->8.1->7.7->8.8->8.2 --> as per renal # Hypercoagulable disorder with afib hx --> on eliquis which has been started --> no bleeding noted # ESRD (end stage renal disease) --> per renal care # Diabetic nephropathy --> wound care and endo recs --> a1c goal <8 # Dvt ppx heparin sq DW Rn and appreciate consultation Subjective Constitutional: Denies: no symptoms, chills, fever, malaise, weakness, other Cardiovascular: Denies: no symptoms, chest pain, edema, irregular heart rate, lightheadedness, palpitations, syncope, other Respiratory: Denies: no symptoms, cough, shortness of breath, SOB with excertion, SOB at rest, sputum, wheezing, other Gastrointestinal/Abdominal: Denies: no symptoms, abdomen distended, abdominal pain, black stools, tarry stools, blood in stool, constipated, diarrhea, difficulty swallowing, nausea, poor appetite, poor fluid intake, rectal bleeding , vomiting, other Endocrine: Denies: no symptoms, excessive sweating, flushing, intolerance to cold, intolerance to heat, increased hunger, increased thirst, increased urine, unexplained weight gain, unexplained weight loss, other Hematologic/Lymphatic: Denies: no symptoms, anemia, easy bleeding, easy bruising, adenopathy, other Allergies: Coded Allergies: PENICILLINS (Verified Allergy, Unknown, 04/23/20) Tolerated Cefepime 04/23/20 Subjective 04/26 seen by renal, is for hd tomorrow, labs noted, plts are lower 04/27 labs noted, no bleeding, for hd, hgb currently lower at 9 04/28 meds noted, no bleeding, carlo rn, permcath to dc 04/29 labs still pending, no bleeding, remains forgetful, no bleeding 04/30 no major changes, no bleeding, cbc is noted 05/01 meds reviewed, no bleeding, labs noted, no night sweats 05/02 to undergo hd for tomorrow, no bleeding, labs noted hgb 7.7 05/03 remains on abx, and plts have improved, no bleeding 05/04 is to have arm dialysis placement today, no bleeding 05/05 awaiting improvement off antibiotic before shunt placement 05/06 labs reviewed, no bleeding, meds noted, no bleeding, for hd tomorrow Objective Objective Current Medications Medications (Trade) Dose Ordered Sig/Jesus Route PRN Reason Start Time Stop Time Status Last Admin Dose Admin Acetaminophen (Tylenol) 500 mg Q4H PRN ORAL Temp >100.5 05/02/20 22:19 06/01/20 22:18 05/02/20 22:33 Acetaminophen/ Hydrocodone Bitart ([place] 5/325) 1 tab Q4H PRN ORAL Moderate Pain (Pain Scale 4-6) 05/05/20 11:00 05/12/20 10:59 05/06/20 10:11 Aspirin (ASA) 81 mg DAILY ORAL 04/29/20 09:00 06/08/20 08:59 05/06/20 09:44 Atorvastatin Calcium (Lipitor) 40 mg BEDTIME ORAL 04/28/20 21:00 07/24/20 20:59 05/05/20 20:47 Chlorhexidine Gluconate (Cira-Hex 2%) 1 applic DAILY@1999 TOPIC 04/28/20 20:00 07/22/20 19:59 05/05/20 20:37 Dextrose (Dextrose 50%) 25 ml Q30M PRN IV Hypoglycemia 04/29/20 23:30 07/28/20 23:29 Dextrose (Dextrose 50%) 50 ml Q30M PRN IV Hypoglycemia 04/29/20 23:30 07/28/20 23:29 Docusate Sodium (Colace) 100 mg THREE TIMES A DAY ORAL 04/29/20 13:00 05/29/20 12:59 05/06/20 09:43 Epoetin Jose (Epoetin Jose(ESRD on dialysis)) 10,000 unit SUN-SUN-SUN SUBQ 04/30/20 21:00 07/27/20 20:59 05/05/20 20:37 Folic Acid (Folate) 1 mg DAILY ORAL 04/29/20 09:00 05/26/20 08:59 05/06/20 09:44 Heparin Sodium (Porcine) (Heparin 5000 units/ml) 5,000 units EVERY 12 HOURS SUBQ 04/28/20 21:00 06/12/20 20:59 05/06/20 09:00 Hydralazine HCl (Apresoline) 25 mg Q4H PRN ORAL For blood pressure over 160 sy 04/28/20 19:45 07/24/20 19:36 Insulin Aspart (NovoLOG) BEFORE MEALS AND HS SUBQ 05/02/20 11:30 07/31/20 11:29 05/05/20 20:47 Lansoprazole (Prevacid) 30 mg BIAC ORAL 05/03/20 16:30 06/02/20 16:29 05/06/20 06:01 Meropenem 500 mg/ Sodium Chloride 55 ml @ 110 mls/hr Q24H IVPB 05/03/20 00:00 05/08/20 00:00 05/05/20 23:45 Midodrine (Pro-Amatine) 10 mg THREE TIMES A DAY PRN ORAL BP below 100 systolic 05/06/20 10:30 07/25/20 10:29 Ondansetron HCl (Zofran) 4 mg Q6H PRN IVP Nausea & Vomiting 04/28/20 19:45 05/25/20 19:37 05/06/20 10:12 Sevelamer Carbonate (Renvela) 800 mg BID ORAL 05/07/20 09:00 06/07/20 08:59 Vancomycin HCl (Vanco pharmacy to dose) 1 ea DAILY PRN MISC Per rx protocol 04/28/20 19:45 05/28/20 19:44 Last 24 Hour Vital Signs Date Time Temp Pulse Resp B/P (MAP) Pulse Ox O2 Delivery O2 Flow Rate FiO2 05/06/20 09:07 Room Air Room Air Room Air 05/06/20 08:57 95 Room Air 21 05/06/20 08:00 60 05/06/20 08:00 96.7 60 21 146/63 (90) 96 05/06/20 04:00 98.1 61 18 155/55 (88) 97 05/06/20 04:00 61 05/06/20 00:00 67 05/06/20 00:00 97.9 69 19 130/59 (82) 97 05/05/20 21:00 Room Air Room Air Room Air 05/05/20 20:00 73 05/05/20 20:00 96 Room Air 21 05/05/20 20:00 99.0 69 19 120/61 (80) 96 05/05/20 16:00 97.9 60 20 103/46 (65) 98 05/05/20 16:00 65 05/05/20 12:00 60 05/05/20 12:00 97.5 60 18 108/45 (66) 99 05/05/20 08:00 60 05/05/20 08:00 97.7 60 20 121/59 (79) 100 05/05/20 04:00 60 05/05/20 04:00 97.5 59 18 131/50 (77) 96 05/05/20 00:00 97.4 65 21 106/71 (83) 96 05/05/20 00:00 60 05/04/20 20:15 98 Nasal Cannula 2.0 28 05/04/20 20:00 60 05/04/20 20:00 97.7 62 18 124/51 (75) 94 05/04/20 16:00 97.7 59 20 110/31 (57) 100 05/04/20 16:00 60 Intake and Output 05/05/20 05/06/20 19:00 07:00 Intake Total 120 ml Balance 120 ml Intake Oral 120 ml Labs Test 05/03/20 20:44 05/04/20 06:14 05/04/20 07:55 05/04/20 11:02 POC Whole Blood Glucose 133 MG/DL (74-106) 107 MG/DL (74-106) 86 MG/DL (74-106) White Blood Count 6.6 K/UL (4.8-10.8) Red Blood Count 2.73 M/UL (4.20-5.40) Hemoglobin 8.2 G/DL (12.0-16.0) Hematocrit 25.8 % (37.0-47.0) Mean Corpuscular Volume 95 FL (80-99) Mean Corpuscular Hemoglobin 30.1 PG (27.0-31.0) Mean Corpuscular Hemoglobin Concent 31.8 G/DL (32.0-36.0) Red Cell Distribution Width 15.5 % (11.6-14.8) Platelet Count 153 K/UL (150-450) Mean Platelet Volume 8.0 FL (6.5-10.1) Neutrophils (%) (Auto) 62.3 % (45.0-75.0) Lymphocytes (%) (Auto) 18.1 % (20.0-45.0) Monocytes (%) (Auto) 13.4 % (1.0-10.0) Eosinophils (%) (Auto) 5.0 % (0.0-3.0) Basophils (%) (Auto) 1.3 % (0.0-2.0) Prothrombin Time 11.3 SEC (9.30-11.50) Prothromb Time International Ratio 1.0 (0.9-1.1) Activated Partial Thromboplast Time 29 SEC (23-33) Sodium Level 135 MMOL/L (136-145) Potassium Level 3.1 MMOL/L (3.5-5.1) Chloride Level 96 MMOL/L (98-107) Carbon Dioxide Level 34 MMOL/L (21-32) Anion Gap 5 mmol/L (5-15) Blood Urea Nitrogen 25 mg/dL (7-18) Creatinine 4.2 MG/DL (0.55-1.30) Estimat Glomerular Filtration Rate 12.7 mL/min (>60) Glucose Level 93 MG/DL (74-106) Calcium Level 8.6 MG/DL (8.5-10.1) Phosphorus Level 2.4 MG/DL (2.5-4.9) Total Bilirubin 0.5 MG/DL (0.2-1.0) Aspartate Amino Transf (AST/SGOT) 19 U/L (15-37) Alanine Aminotransferase (ALT/SGPT) 12 U/L (12-78) Alkaline Phosphatase 52 U/L (46-116) C-Reactive Protein, Quantitative 3.9 mg/dL (0.00-0.90) Total Protein 5.5 G/DL (6.4-8.2) Albumin 2.5 G/DL (3.4-5.0) Globulin 3.0 g/dL Albumin/Globulin Ratio 0.8 (1.0-2.7) Random Vancomycin Level 19.8 ug/mL Test 05/04/20 16:13 05/04/20 20:40 05/05/20 12:03 05/06/20 05:38 POC Whole Blood Glucose 141 MG/DL (74-106) 186 MG/DL (74-106) 132 MG/DL (74-106) 106 MG/DL (74-106) Test 05/06/20 06:00 05/06/20 11:12 White Blood Count 7.5 K/UL (4.8-10.8) Red Blood Count 2.71 M/UL (4.20-5.40) Hemoglobin 8.2 G/DL (12.0-16.0) Hematocrit 25.9 % (37.0-47.0) Mean Corpuscular Volume 96 FL (80-99) Mean Corpuscular Hemoglobin 30.5 PG (27.0-31.0) Mean Corpuscular Hemoglobin Concent 31.8 G/DL (32.0-36.0) Red Cell Distribution Width 15.7 % (11.6-14.8) Platelet Count 176 K/UL (150-450) Mean Platelet Volume 7.3 FL (6.5-10.1) Neutrophils (%) (Auto) 65.3 % (45.0-75.0) Lymphocytes (%) (Auto) 18.0 % (20.0-45.0) Monocytes (%) (Auto) 12.2 % (1.0-10.0) Eosinophils (%) (Auto) 3.1 % (0.0-3.0) Basophils (%) (Auto) 1.3 % (0.0-2.0) Sodium Level 136 MMOL/L (136-145) Potassium Level 3.5 MMOL/L (3.5-5.1) Chloride Level 98 MMOL/L (98-107) Carbon Dioxide Level 34 MMOL/L (21-32) Anion Gap 4 mmol/L (5-15) Blood Urea Nitrogen 28 mg/dL (7-18) Creatinine 4.3 MG/DL (0.55-1.30) Estimat Glomerular Filtration Rate 12.4 mL/min (>60) Glucose Level 103 MG/DL (74-106) Calcium Level 8.9 MG/DL (8.5-10.1) Phosphorus Level 2.2 MG/DL (2.5-4.9) Magnesium Level 2.3 MG/DL (1.8-2.4) Total Bilirubin 0.3 MG/DL (0.2-1.0) Aspartate Amino Transf (AST/SGOT) 11 U/L (15-37) Alanine Aminotransferase (ALT/SGPT) 9 U/L (12-78) Alkaline Phosphatase 63 U/L (46-116) C-Reactive Protein, Quantitative 2.6 mg/dL (0.00-0.90) Total Protein 6.0 G/DL (6.4-8.2) Albumin 2.8 G/DL (3.4-5.0) Globulin 3.2 g/dL Albumin/Globulin Ratio 0.9 (1.0-2.7) Random Vancomycin Level 20.0 ug/mL POC Whole Blood Glucose 141 MG/DL (74-106) Height (Feet): 5 Height (Inches): 5.00 Weight (Pounds): 296 Objective Physical Exam Vitals: reviewed Gen: no apparent distress, alert, non-toxic, obese, Chronically Ill HEENT: hearing grossly normal, normal voice Neck: full range of motion Resp: chest non-tender, lungs clear, normal breath sounds, no respiratory distress, permacath left side Cardiovascular: regular rate, rhythm, no edema, other - slow cap refill time of lower extremities bilaterally GI: normal bowel sounds, non tender, soft Msk: normal range of motion, non-tender, other - PT. wheel chair bound Neuro: alert, oriented x3, responsive, speech normal, sensory deficit Psychiatric: judgement/insight normal Skin: Decubitus/Ulcer - 2cm in diameter with a deeper necrotic 0.6cm center. erythema- pressure sore on tailbone. no skin break down Husma Byers MD May 06, 2020 12:24
--- NOTE | 2020-05-06 13:08 | Cardiology Progress Note ---
Assessment/Plan Assessment/Plan 1. Hypotension, resolved, likely caused by S. Capitis, 2D echo shows normal LV systolic function. 2. Slight elevation of troponin I level due to hypotension/shock. Continue ASA and atorvastatin. 3. Paroxysmal atrial fibrillation. Continue amiodarone and apixaban. 4. History of CVA with left hemiparesis. 5. Hypoxic hypercarbic respiratory failure. 6. Dual chamber pacemaker, atrial paced, ventricular sensed. Subjective Subjective Atrial paced ventricular sensed at rate of 60. Room air. Objective Last 24 Hour Vital Signs Date Time Temp Pulse Resp B/P (MAP) Pulse Ox O2 Delivery O2 Flow Rate FiO2 05/06/20 09:07 Room Air Room Air Room Air 05/06/20 08:57 95 Room Air 21 05/06/20 08:00 60 05/06/20 08:00 96.7 60 21 146/63 (90) 96 05/06/20 04:00 98.1 61 18 155/55 (88) 97 05/06/20 04:00 61 05/06/20 00:00 67 05/06/20 00:00 97.9 69 19 130/59 (82) 97 05/05/20 21:00 Room Air Room Air Room Air 05/05/20 20:00 73 05/05/20 20:00 96 Room Air 21 05/05/20 20:00 99.0 69 19 120/61 (80) 96 05/05/20 16:00 97.9 60 20 103/46 (65) 98 05/05/20 16:00 65 Intake and Output 05/05/20 05/06/20 19:00 07:00 Intake Total 120 ml Balance 120 ml Intake Oral 120 ml 2D Echo: LVEF 60%, JENY, Severe SC, RVSP 61 mmHg Laboratory Tests Test 05/06/20 05:38 05/06/20 06:00 05/06/20 11:12 POC Whole Blood Glucose 106 MG/DL (74-106) 141 MG/DL (74-106) H White Blood Count 7.5 K/UL (4.8-10.8) Red Blood Count 2.71 M/UL (4.20-5.40) L Hemoglobin 8.2 G/DL (12.0-16.0) L Hematocrit 25.9 % (37.0-47.0) L Mean Corpuscular Volume 96 FL (80-99) Mean Corpuscular Hemoglobin 30.5 PG (27.0-31.0) Mean Corpuscular Hemoglobin Concent 31.8 G/DL (32.0-36.0) L Red Cell Distribution Width 15.7 % (11.6-14.8) H Platelet Count 176 K/UL (150-450) Mean Platelet Volume 7.3 FL (6.5-10.1) Neutrophils (%) (Auto) 65.3 % (45.0-75.0) Lymphocytes (%) (Auto) 18.0 % (20.0-45.0) L Monocytes (%) (Auto) 12.2 % (1.0-10.0) H Eosinophils (%) (Auto) 3.1 % (0.0-3.0) H Basophils (%) (Auto) 1.3 % (0.0-2.0) Sodium Level 136 MMOL/L (136-145) Potassium Level 3.5 MMOL/L (3.5-5.1) Chloride Level 98 MMOL/L (98-107) Carbon Dioxide Level 34 MMOL/L (21-32) H Anion Gap 4 mmol/L (5-15) L Blood Urea Nitrogen 28 mg/dL (7-18) H Creatinine 4.3 MG/DL (0.55-1.30) H Estimat Glomerular Filtration Rate 12.4 mL/min (>60) Glucose Level 103 MG/DL (74-106) Calcium Level 8.9 MG/DL (8.5-10.1) Phosphorus Level 2.2 MG/DL (2.5-4.9) L Magnesium Level 2.3 MG/DL (1.8-2.4) Total Bilirubin 0.3 MG/DL (0.2-1.0) Aspartate Amino Transf (AST/SGOT) 11 U/L (15-37) L Alanine Aminotransferase (ALT/SGPT) 9 U/L (12-78) L Alkaline Phosphatase 63 U/L (46-116) C-Reactive Protein, Quantitative 2.6 mg/dL (0.00-0.90) H Total Protein 6.0 G/DL (6.4-8.2) L Albumin 2.8 G/DL (3.4-5.0) L Globulin 3.2 g/dL Albumin/Globulin Ratio 0.9 (1.0-2.7) L Random Vancomycin Level 20.0 ug/mL Objective HEENT: Atraumatic, normocephalic. Anicteric. Pupils are equal, round, and reactive to light and accommodation. Extraocular muscles intact. NECK: JVP cannot be assessed. No carotid bruit. Carotid upstroke is 2+ bilaterally. CARDIOVASCULAR: Normal S1, S2. There is 2/6 mid systolic murmur at the left sternal border. PMI is at fourth intercostal space at the midclavicular line, + pacemaker pocket left side. LUNGS: Bibasilar crackles. ABDOMEN: Soft, nontender, and nondistended. No hepatosplenomegaly. Positive bowel sounds. EXTREMITIES: Diminished dorsalis pedis pulses of 1+. There is diminished motor function on the left lower extremity and upper extremity. Triston Joy MD May 06, 2020 13:08
--- NOTE | 2020-05-06 13:17 | NUR ---
NURSE NOTES: PT HAD NO BREAKFAST AND IT IS NOT INTERESTED IN HAVING LUNCH AT THIS TIME. NO INSULIN WAS GIVEN FOR LUNCH. PT WAS NAUSEAS AND WANTED TO VOMIT ZOFRAN WAS GIVEN.
--- NOTE | 2020-05-06 14:42 | Infectious Diseases Prog Note ---
Assessment/Plan Assessment: Fever 05/02 r/o recurrent bacteremia- SP No leukocytosis 05/03 CXR: Mild vascular prominence unchanged. The lung chisholm are clear bilaterally. -05/02 Bcx NTD TOBACCO [employer] 04/25- due to hypotension and desaturation -hypoxic on ABG SEvere sepsis; resolving S. capitis bacteremia, persistent- likely HD line infection in the setting of sepsis -04/23 Bcx 1/ Staph capitis ; 04/25 Bcx 1/4 Staph capitis; 04/27 Bcx Neg x4 ( peripheral, HD line) -2d Echo: no vegetations seen Pulmonary edema vs PNA -04/30 CXR: Mild perihilar interstitial congestion, unchanged from 04/25/2020. -04/25 SARS-COV2 PCR neg -04/25 CXR: Perihilar opacities may represent pulmonary edema versus infectious/inflammatory process. Elevated trop L foot/ankle wound; no grossly infected- no OM on bone scan -04/28 Bone scan: No significant abnormality in the left heel to suggest osteomyelitis of the location of clinically described left heel wound. Mild bilateral abnormal uptake, as detailed above, likely reflecting degenerative changes -xray L foot/ankle: No acute findings in the left foot. -CRP 5.9, ESR 53 -CXR: no acute disease Dm2 HTN Asthma/COPD CVA 10 yrs ago w/ residual L side weakness s/p PPM asthma ESRD on HD (MWF) Plan: -Continue IV Vancomycin # 14; will treat for 14 days from 1st neg Bcx on 04/27; expected end date 05/10/20 -Continue IV Vancomycin 750mg on HD days as an outpatient until 05/10/20; monitor vanco through -05/05 SP Meropenem #4 -04/29 SP Cefepime #5 -04/25 SP Ceftriaxone #3 -04/23 SP Cefepime x1 -f/u cx -Monitor CBC/CMP, temperatures -wound care per sales operations consultant -Podiatry, renal, cards, pulm f/u: AVG placement as an outpatient Thank you for consulting [facility]. Will continue to follow along . Discussed with RN, Dr Stephenson, disability case manager and Dr Huff Subjective Allergies: Coded Allergies: PENICILLINS (Verified Allergy, Unknown, 04/23/20) Tolerated Cefepime 7/17/20 afebrile >36hrs now at RA repeat Bcx pending more alert now Objective Last 24 Hour Vital Signs Date Time Temp Pulse Resp B/P (MAP) Pulse Ox O2 Delivery O2 Flow Rate FiO2 05/06/20 09:07 Room Air Room Air Room Air 05/06/20 08:57 95 Room Air 21 05/06/20 08:00 60 05/06/20 08:00 96.7 60 21 146/63 (90) 96 05/06/20 04:00 98.1 61 18 155/55 (88) 97 05/06/20 04:00 61 05/06/20 00:00 67 05/06/20 00:00 97.9 69 19 130/59 (82) 97 05/05/20 21:00 Room Air Room Air Room Air 05/05/20 20:00 73 05/05/20 20:00 96 Room Air 21 05/05/20 20:00 99.0 69 19 120/61 (80) 96 05/05/20 16:00 97.9 60 20 103/46 (65) 98 05/05/20 16:00 65 Height (Feet): 5 Height (Inches): 5.00 Weight (Pounds): 296 Cardiovascular: RSR Respiratory: decreased breath sounds Abdomen: soft, non-tender, present bowel sounds Extremities: no cyanosis Laboratory Tests Test 05/06/20 05:38 05/06/20 06:00 05/06/20 11:12 POC Whole Blood Glucose 106 MG/DL (74-106) 141 MG/DL (74-106) H White Blood Count 7.5 K/UL (4.8-10.8) Red Blood Count 2.71 M/UL (4.20-5.40) L Hemoglobin 8.2 G/DL (12.0-16.0) L Hematocrit 25.9 % (37.0-47.0) L Mean Corpuscular Volume 96 FL (80-99) Mean Corpuscular Hemoglobin 30.5 PG (27.0-31.0) Mean Corpuscular Hemoglobin Concent 31.8 G/DL (32.0-36.0) L Red Cell Distribution Width 15.7 % (11.6-14.8) H Platelet Count 176 K/UL (150-450) Mean Platelet Volume 7.3 FL (6.5-10.1) Neutrophils (%) (Auto) 65.3 % (45.0-75.0) Lymphocytes (%) (Auto) 18.0 % (20.0-45.0) L Monocytes (%) (Auto) 12.2 % (1.0-10.0) H Eosinophils (%) (Auto) 3.1 % (0.0-3.0) H Basophils (%) (Auto) 1.3 % (0.0-2.0) Sodium Level 136 MMOL/L (136-145) Potassium Level 3.5 MMOL/L (3.5-5.1) Chloride Level 98 MMOL/L (98-107) Carbon Dioxide Level 34 MMOL/L (21-32) H Anion Gap 4 mmol/L (5-15) L Blood Urea Nitrogen 28 mg/dL (7-18) H Creatinine 4.3 MG/DL (0.55-1.30) H Estimat Glomerular Filtration Rate 12.4 mL/min (>60) Glucose Level 103 MG/DL (74-106) Calcium Level 8.9 MG/DL (8.5-10.1) Phosphorus Level 2.2 MG/DL (2.5-4.9) L Magnesium Level 2.3 MG/DL (1.8-2.4) Total Bilirubin 0.3 MG/DL (0.2-1.0) Aspartate Amino Transf (AST/SGOT) 11 U/L (15-37) L Alanine Aminotransferase (ALT/SGPT) 9 U/L (12-78) L Alkaline Phosphatase 63 U/L (46-116) C-Reactive Protein, Quantitative 2.6 mg/dL (0.00-0.90) H Total Protein 6.0 G/DL (6.4-8.2) L Albumin 2.8 G/DL (3.4-5.0) L Globulin 3.2 g/dL Albumin/Globulin Ratio 0.9 (1.0-2.7) L Random Vancomycin Level 20.0 ug/mL Current Medications Medications (Trade) Dose Ordered Sig/Jesus Route PRN Reason Start Time Stop Time Status Last Admin Dose Admin Acetaminophen (Tylenol) 500 mg Q4H PRN ORAL Temp >100.5 05/02/20 22:19 06/01/20 22:18 05/02/20 22:33 Acetaminophen/ Hydrocodone Bitart ([place] 5/325) 1 tab Q4H PRN ORAL Moderate Pain (Pain Scale 4-6) 05/05/20 11:00 05/12/20 10:59 05/06/20 10:11 Aspirin (ASA) 81 mg DAILY ORAL 04/29/20 09:00 06/08/20 08:59 05/06/20 09:44 Atorvastatin Calcium (Lipitor) 40 mg BEDTIME ORAL 04/28/20 21:00 07/24/20 20:59 05/05/20 20:47 Chlorhexidine Gluconate (Cira-Hex 2%) 1 applic DAILY@1999 TOPIC 04/28/20 20:00 07/22/20 19:59 05/05/20 20:37 Dextrose (Dextrose 50%) 25 ml Q30M PRN IV Hypoglycemia 04/29/20 23:30 07/28/20 23:29 Dextrose (Dextrose 50%) 50 ml Q30M PRN IV Hypoglycemia 04/29/20 23:30 07/28/20 23:29 Docusate Sodium (Colace) 100 mg THREE TIMES A DAY ORAL 04/29/20 13:00 05/29/20 12:59 05/06/20 13:17 Epoetin Jose (Epoetin Jose(ESRD on dialysis)) 10,000 unit SUN-SUN-SUN SUBQ 04/30/20 21:00 07/27/20 20:59 05/05/20 20:37 Folic Acid (Folate) 1 mg DAILY ORAL 04/29/20 09:00 05/26/20 08:59 05/06/20 09:44 Heparin Sodium (Porcine) (Heparin 5000 units/ml) 5,000 units EVERY 12 HOURS SUBQ 04/28/20 21:00 06/12/20 20:59 05/06/20 09:00 Hydralazine HCl (Apresoline) 25 mg Q4H PRN ORAL For blood pressure over 160 sy 04/28/20 19:45 07/24/20 19:36 Insulin Aspart (NovoLOG) BEFORE MEALS AND HS SUBQ 05/02/20 11:30 07/31/20 11:29 05/05/20 20:47 Lansoprazole (Prevacid) 30 mg BIAC ORAL 05/03/20 16:30 06/02/20 16:29 05/06/20 06:01 Meropenem 500 mg/ Sodium Chloride 55 ml @ 110 mls/hr Q24H IVPB 05/03/20 00:00 05/08/20 00:00 05/05/20 23:45 Midodrine (Pro-Amatine) 10 mg THREE TIMES A DAY PRN ORAL BP below 100 systolic 05/06/20 10:30 07/25/20 10:29 Ondansetron HCl (Zofran) 4 mg Q6H PRN IVP Nausea & Vomiting 04/28/20 19:45 05/25/20 19:37 05/06/20 10:12 Sevelamer Carbonate (Renvela) 800 mg BID ORAL 05/07/20 09:00 06/07/20 08:59 Vancomycin HCl ([facility] pharmacy to dose) 1 ea DAILY PRN MISC Per rx protocol 04/28/20 19:45 05/28/20 19:44 Kathia Lei M.D. May 06, 2020 14:42
--- NOTE | 2020-05-06 16:19 | NUR ---
NURSE NOTES: Pt DC in stable condition via ambulance, she was taken home. Daughter waiting for pt. Pt cardiac specialist was taken off, no signs of cardiac or respiratory distress. IV was discontinued site covered with 4x4 and not bleeding. Belongings were taken with pt. including wheel chair and cell phone. Everything was packaged for her to take home. Dc instructions were reviewed with pt. and included inside of green folder and given to pt. Pt and family member are aware that she needs to continue with dialysis, next dialysis tomorrow. Vancomycin needs to be given on dialysis days. Also, pt is going home with Home health. Pictures of wounds were taken before DC
--- NOTE | 2020-05-06 16:29 | NUR ---
CASE MANAGEMENT: NOTE PATIENT IS IN SERVICE WITH [facility] PER ODALYS Jackson NURSE WILL RESUME VISITS WITH THIS PT 05/07 CLINICALS FAXED TO [phone] ODALYS Hernandez: [phone] Addendum: 05/07/20 at 1420 by Catrina Knight UPDATED CLINICALS FAXED TO [facility] [place]
[2020-05-07] MEDS ORDERED: Renvela 800mg Pkt ORAL SCH (09:00)
--- NOTE | 2020-05-10 13:14 | Discharge Summary ---
Discharge Summary Discharge Summary _ DATE OF ADMISSION: 04/23/2020 DATE OF DISCHARGE: 05/06/2020 DISCHARGED BY: Dr Banegas REASON FOR ADMISSION: 69 years old female with past medical history of hypertension, status post pacemaker implantation, COPD/asthma, diabetes mellitus, end-stage renal disease , on hemodialysis, history of CVA with left-sided weakness, presented to emergency department with severe , 10 out of 10 pain in the left foot wound. Pain became progressively worse over the last several weeks. She denied fever and chills. She denied recent trauma or injury to the foot. She reported pressure sore on the left toe , which took a long time to heal. Upon evaluation laboratory work-up revealed no leukocytosis . Elevated BUN/creatinine consistent with known history of end-stage renal disease. Lactic acid was within normal limits. Troponin was within normal limits. Chest x-ray revealed no evidence of acute cardiopulmonary process. Patient pancultured, started on empiric antibiotic and admitted for further management CONSULTANTS: creative resource manager Dr. Joy pulmonary Dr. Roe ID specialist Dr. Lei admitting representative Dr. Reese stonecutter apprentice hand Dr. Stephenson aviation electrician/oncologist Dr. Byers general surgeon Dr. Cade HOSPITAL COURSE: Patient admitted and started on empiric antibiotic as per ID specialist recommendation. X-ray of the left foot and left ankle revealed no acute findings. Blood culture initially grew Staph capitis on Repeated blood culture on 04/24 still revealed Staph capitis. Rapid COVID-19 by PCR was negative. Per ID specialist, persistent Staph capitis bacteremia was likely due to hemodialysis line infection . Echocardiogram revealed no evidence of vegetation. Repeated blood culture 04/27 and 05/02 were negative. Port-A-Cath was removed on 04/28 by interventional radiologist . Patient had insertion of new tunneled hemodialysis catheter on by IR. ID recommended 14-day of vancomycin from the first day of negative blood culture (04/27), with expected end of treatment 05/10/2020 Patient had no leukocytosis , but had episodes of fevers. Bone scan demonstrated no significant abnormality in the left heel to suggest osteomyelitis of the location or clinically described left heel wound. Mild bilateral abnormal uptake likely reflecting degenerative changes. Wound care provided as per admitting representative recommendations. Rapid response was called on 04/25 due to hypotension and desaturation. ABG revealed evidence of acidosis and hypercapnia , which was done on 3 L of oxygen via nasal cannula. Chest x-ray revealed perihilar opacity , possibly representing pulmonary edema versus infectious/inflammatory process. Patient transferred to telemetry floor for further management. Supplemental oxygen provided and titrated to keep oximetry above 92%. Pulmonary toilet provided. Prior to discharge patient was able to be weaned on room air with stable pulse oximetry. Chest x-ray prior to discharge revealed clear lung chisholm bilaterally. Venous duplex bilateral lower extremity revealed no evidence of acute DVT. Hemodynamic status was closely monitored. Patient developed hypotension, likely caused by bacteremia. Echocardiogram revealed preserved ejection fraction. Initial 2 troponin were negative. Patient subsequently developed mild elevation in troponin. EKG revealed no acute ischemic changes. Last troponin negative again. Per creative resource manager slight elevation of troponin , was likely due to hypotension. Patient started on midodrine. Antiplatelet therapy with aspirin and statin continued. Amiodarone and apixaban continued due to paroxysmal atrial fibrillation. Hemodialysis provided as per stonecutter apprentice hand recommendations with close monitoring of volumes and cardiorenal parameters. Electrolytes corrected as needed. Blood sugar was managed with sliding scale of insulin. Hemoglobin and hematocrit were closely monitored with goal to keep hemoglobin above 7. Patient started on Epogen 3 times week. Patient clinically stabilized and was ready for discharge home with home health services. FINAL DIAGNOSES: Severe sepsis /not present on admission Staph capitis bacteremia, persistent likely due to hemodialysis line infection in the setting of sepsis/ present on admission Pulmonary edema Pneumonia Hypoxic hypercarbic respiratory failure Left foot/ankle ulcer Cellulitis left foot End-stage renal disease , on hemodialysis Paroxysmal atrial fibrillation Diabetes mellitus type 2 with diabetic nephropathy Hypotension -resolved History of hypertension Mild elevation of troponin -likely due to hypotension Hyperlipidemia History of CVA with residual left-sided weakness Pacemaker Asthma /COPD Anemia of chronic kidney disease DISCHARGE MEDICATIONS: See Medication Reconciliation list. DISCHARGE INSTRUCTIONS: Patient was discharged home with home health services for IV antibiotics and wound care. Follow-up with a primary care provider in 1 week. I have been assigned to dictate discharge summary for this account. I was not involved in the patient's management. Cary Jarvis NP May 10, 2020 13:14
== END 2020-05-06 16:19 | disposition home health service (06) | DRG 314 ==
LOC: EDBEDREQ 13:09 → EMR 13:34 → 4E 13:40 → EDBEDREQ 15:02 → 2W 04-25 12:27 → ICU 04-25 19:06 → 2E 04-28 17:55
PROC: 0JPT3WZ Removal of Totally Implantable Vascular Access Device from Trunk Subcutaneous Tissue and Fascia, Percutaneous Approach (ICD-10-PCS; 2020-04-28)
PROC: 06H033Z Insertion of Infusion Device into Inferior Vena Cava, Percutaneous Approach (ICD-10-PCS; 2020-04-30)
PROC: 0JH63XZ Insertion of Tunneled Vascular Access Device into Chest Subcutaneous Tissue and Fascia, Percutaneous Approach (ICD-10-PCS; 2020-04-30)
PROC: 30233N1 Transfusion of Nonautologous Red Blood Cells into Peripheral Vein, Percutaneous Approach (ICD-10-PCS; 2020-05-02)
PROC: 5A1D70Z Performance of Urinary Filtration, Intermittent, Less than 6 Hours Per Day (ICD-10-PCS; principal; 2020-05-06)
DX: T80.211A Bloodstream infection due to central venous catheter, initial encounter (principal); A41.1 Sepsis due to other specified staphylococcus; L89.623 Pressure ulcer of left heel, stage 3; N18.6 End stage renal disease; J96.01 Acute respiratory failure with hypoxia; R65.20 Severe sepsis without septic shock; N39.0 Urinary tract infection, site not specified; L03.116 Cellulitis of left lower limb; G82.20 Paraplegia, unspecified; I13.2 Hypertensive heart and chronic kidney disease with heart failure and with stage 5 chronic kidney disease, or end stage renal disease; I50.32 Chronic diastolic (congestive) heart failure; I69.354 Hemiplegia and hemiparesis following cerebral infarction affecting left non-dominant side; L89.620 Pressure ulcer of left heel, unstageable; E11.22 Type 2 diabetes mellitus with diabetic chronic kidney disease; E11.40 Type 2 diabetes mellitus with diabetic neuropathy, unspecified; J44.9 Chronic obstructive pulmonary disease, unspecified; Z88.0 Allergy status to penicillin; I48.0 Paroxysmal atrial fibrillation; E11.21 Type 2 diabetes mellitus with diabetic nephropathy; B96.4 Proteus (mirabilis) (morganii) as the cause of diseases classified elsewhere; Z95.0 Presence of cardiac pacemaker; E87.5 Hyperkalemia; Z79.01 Long term (current) use of anticoagulants; Z79.82 Long term (current) use of aspirin; D50.9 Iron deficiency anemia, unspecified; D69.6 Thrombocytopenia, unspecified; F03.90 Unspecified dementia, unspecified severity, without behavioral disturbance, psychotic disturbance, mood disturbance, and anxiety; D63.1 Anemia in chronic kidney disease; Z99.2 Dependence on renal dialysis; R79.1 Abnormal coagulation profile
CPT/HCPCS: 36415; 36590; 36600; 71045; 76000; 78315; 80048; 80053; 80061; 80076; 80202; 82533; 82607; 82728; 82746; 82803; 82962; 82977; 83036; 83540; 83550; 83605; 83615; 83735; 83880; 84100; 84132; 84443; 84484; 84550; 85007; 85025; 85610; 85651; 85730; 86140; 86703; 86705; 86709; 86803; 86850; 86900; 86901; 86920; 87040; 87081; 87181; 87340; 93005; 93306; 93922; 93925; 93970; 96365; 96367; 99285; J1815; J2405; J7030

== ENCOUNTER 2020-06-23 08:42 | Inpatient (IN) | payer MEDICARE, OTHER ==
[~2020-06-23] VITALS: Ht 165.1 cm; Wt 110.0 kg
[2020-06-23 09:00] VITALS: BP 135/71
--- NOTE | 2020-06-23 09:00 | NUR ---
Note undone in EDM - 06/23/20 at 1226 by ARCHIE ED Nurse Note: Patient from brought in by [facility] due to left side weakness and pain for a couple of days. Patient has history of CVA 2007 and had prior left side weakness . Also noted left side permacath. Dialysis M// and last session 06/14/20. Denies CP or SOB. AAO x4, non ambulatory and follows commands.
--- NOTE | 2020-06-23 09:05 | NUR ---
ED Nurse Note: Patient from brought in by [facility] due to left side weakness and pain for a couple of days. Patient has history of CVA 2007 and had prior left side weakness . Also noted right side permacath. Dialysis M/W/ and last session 06/14/20. Denies CP or SOB. AAO x2, non ambulatory and follows commands.
--- NOTE | 2020-06-23 09:10 | NUR ---
Note undone in EDM - 06/23/20 at 1252 by GAYATRI ED Nurse Note: Patient from brought in by [facility] due to left side weakness and pain for a couple of days. Patient has history of CVA 2007 and had prior left side weakness . Also noted right side permacath. Dialysis M/W/ and last session 06/14/20. Denies CP or SOB. AAO x4, non ambulatory and follows commands.
--- NOTE | 2020-06-23 09:20 | NUR ---
ED Nurse Note: Collected blood and covid19 swab then sent.
--- NOTE | 2020-06-23 09:25 | NUR ---
ED Nurse Note: Colten Beltran
--- NOTE | 2020-06-23 09:26 | NUR ---
Dali deluna in EDM - 06/23/20 at 0944 by SANA ED Note: Colten Beltran
--- NOTE | 2020-06-23 09:27 | NUR ---
ED Nurse Note: Per daughter, last HD was Jun 14 and pt's c/o has been going on for 7 days.
--- NOTE | 2020-06-23 09:34 | NUR ---
ED Nurse Note: vet tech at the bed side for CXR.
[2020-06-23 09:47] LABS: BASOPHILS % (AUTO) 2.6 % (0.0-2.0); EOSINOPHILS % (AUTO) 7.3 % (0.0-3.0); HEMATOCRIT 35.1 % (37.0-47.0); HEMOGLOBIN 11.7 G/DL (12.0-16.0); LYMPHOCYTES % (AUTO) 40.2 % (20.0-45.0); MEAN CORPUSCULAR VOLUME 92 FL (80-99); MONOCYTES % (AUTO) 7.6 % (1.0-10.0); NEUTROPHILS % (AUTO) 42.4 % (45.0-75.0); PLATELET COUNT 133 K/UL (150-450); RED BLOOD COUNT 3.81 M/UL (4.20-5.40); RED CELL DISTRIBUTION WIDTH 13.1 % (11.6-14.8); WHITE BLOOD COUNT 5.9 K/UL (4.8-10.8)
[2020-06-23 10:11] LABS: ALBUMIN 3.3 G/DL (3.4-5.0); ALBUMIN/GLOBULIN RATIO 0.9 (1.0-2.7); BILIRUBIN,TOTAL 0.4 MG/DL (0.2-1.0); CALCIUM 9.2 MG/DL (8.5-10.1); CKMB 0.9 NG/ML (0.0-3.6); CREATININE 12.7 MG/DL (0.55-1.30)
[2020-06-23 10:12] LABS: POTASSIUM 6.6 MMOL/L (3.5-5.1)
--- NOTE | 2020-06-23 10:22 | NUR ---
ED Nurse Note: Noted large amount of brown stool on diapers. RN and interventional radiology technologist removed old diaper and Cleansed back area with water, patted dry and place new linen beneath buttocks. Noted sacrum wound.
--- NOTE | 2020-06-23 10:32 | Emergency Room Report ---
History of Present Illness General Chief Complaint: Generalized Weakness Source: Patient, Family Member, Medical Record Present Illness HPI This patient is brought in by EMS. She is also accompanied by her daughter. The patient has a history of multiple chronic medical problems. She has a history of CVA with left-sided weakness and end-stage renal disease and is dialysis dependent. She has not been to dialysis in over 1 week. Per the patient, the transportation to get her to dialysis did not arrive. She has no other transportation other than the shuttle system that is in place for her. She states that she has generalized weakness. She denies new pain. She states she has chronic pain in her left side of her body. She denies fever or chills. She denies nausea or vomiting. She denies dysuria. She denies abdominal pain. She has no other complaints. 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: Yes COVID-19 Screening: Negative COVID-19 COVID-19 Testing Source: unk source Patient History Past Medical History: see triage record, DM, HTN, [place], CAD, CHF, COPD, GERD, CVA/TIA, renal disease, dialysis Past Surgical History: pacemaker Social History: Denies: smoking, alcohol use, drug use Now: No Reviewed Nursing Documentation: PMH: Agreed; PSxH: Agreed Nursing Documentation-PMH Past Medical History: No History, Except For Hx Cardiac Problems: Yes - BRADYCARDIA, FLUID OVERLOAD Hx Hypertension: Yes Hx Pacemaker: Yes - LEFT UPPER CHEST Hx Asthma: Yes Hx COPD: Yes Hx Diabetes: Yes Hx Cancer: No Hx Gastrointestinal Problems: No Hx Dialysis: Yes - ESRD ON HD (MWF) Hx Neurological Problems: Yes Hx Cerebrovascular Accident: Yes - 1974 Hx Weakness: Yes Review of Systems All Other Systems: negative except mentioned in HPI Physical Exam Vital Signs Date Time Temp Pulse Resp B/P (MAP) Pulse Ox O2 Delivery O2 Flow Rate FiO2 06/23/20 08:50 98.4 61 12 133/55 (81) 98 Room Air Sp02 EP Interpretation: reviewed, normal General Appearance: no apparent distress, alert, GCS 15, non-toxic, obese Head: normocephalic, atraumatic ENT: hearing grossly normal, no angioedema, normal voice Neck: normal inspection, full range of motion Respiratory: chest non-tender, lungs clear, normal breath sounds, no respiratory distress, no retraction, no accessory muscle use, speaking full sentences Cardiovascular #1: regular rate, rhythm, no edema, edema - BLE Gastrointestinal: normal bowel sounds, non tender, soft, non-distended, no guarding, no rebound Rectal: deferred Musculoskeletal: back normal, normal range of motion, non-tender Neurologic: alert, oriented x3, responsive, speech normal, other - L. weakness (baseline) Psychiatric: judgement/insight normal, memory normal, mood/affect normal, no suicidal/homicidal ideation Skin: Decubitus/Ulcer - See RN skin exam Medical Decision Making Diagnostic Impression: Primary Impression: ESRD (end stage renal disease) Additional Impressions: Volume overload Hyperkalemia ER Course The patient has end-stage renal disease and volume overload. She is also found to have hyperkalemia. This is secondary to her not being able to obtain dialysis for 5 sessions. The patient's primary care physician in addition to her sports intern was contacted to arrange emergency dialysis as an inpatient. The patient remained stable in the emergency department was admitted for further monitoring, evaluation and treatment per nephrology and internal medicine. This patient was evaluated in the context of the global COVID-19 pandemic, which necessitated consideration that the patient might be at risk for infection with the [id number] virus that causes COVID-19. Institutional protocols and algorithms that pertain to the evaluation of patients at risk for COVID-19 and the state of rapid change based on information released by multiple regulatory bodies including the CDC and federal and state organizations. These policies and algorithms were followed during the patient's care in the ED. Laboratory Tests Test 06/23/20 09:00 White Blood Count 5.9 K/UL (4.8-10.8) Red Blood Count 3.81 M/UL (4.20-5.40) L Hemoglobin 11.7 G/DL (12.0-16.0) L Hematocrit 35.1 % (37.0-47.0) L Mean Corpuscular Volume 92 FL (80-99) Mean Corpuscular Hemoglobin 30.6 PG (27.0-31.0) Mean Corpuscular Hemoglobin Concent 33.2 G/DL (32.0-36.0) Red Cell Distribution Width 13.1 % (11.6-14.8) Platelet Count 133 K/UL (150-450) L Mean Platelet Volume 8.0 FL (6.5-10.1) Neutrophils (%) (Auto) 42.4 % (45.0-75.0) L Lymphocytes (%) (Auto) 40.2 % (20.0-45.0) Monocytes (%) (Auto) 7.6 % (1.0-10.0) Eosinophils (%) (Auto) 7.3 % (0.0-3.0) H Basophils (%) (Auto) 2.6 % (0.0-2.0) H Sodium Level 145 MMOL/L (136-145) Potassium Level 6.6 MMOL/L (3.5-5.1) *H Chloride Level 109 MMOL/L (98-107) H Carbon Dioxide Level 26 MMOL/L (21-32) Anion Gap 10 mmol/L (5-15) Blood Urea Nitrogen 95 mg/dL (7-18) H Creatinine 12.7 MG/DL (0.55-1.30) H Estimated Glomerular Filtration Rate 3.5 mL/min (>60) Glucose Level 104 MG/DL (74-106) Lactic Acid Level 1.00 mmol/L (0.4-2.0) Calcium Level 9.2 MG/DL (8.5-10.1) Total Bilirubin 0.4 MG/DL (0.2-1.0) Aspartate Amino Transferase (AST) 17 U/L (15-37) Alanine Aminotransferase (ALT) 12 U/L (12-78) Alkaline Phosphatase 74 U/L (46-116) Total Creatine Kinase 62 U/L (26-308) Creatine Kinase MB 0.9 NG/ML (0.0-3.6) Creatine Kinase MB Relative Index 1.4 Troponin I 0.000 ng/mL (0.000-0.056) Total Protein 7.1 G/DL (6.4-8.2) Albumin 3.3 G/DL (3.4-5.0) L Globulin 3.8 g/dL Albumin/Globulin Ratio 0.9 (1.0-2.7) L Microbiology Date/Time Source Procedure Growth Status 06/23/20 09:15 Nasopharynx SARS-CoV-2 RdRp Gene Assay - Final Complete EKG Diagnostic Results Rate: normal Rhythm: other - Paced ST Segments: no acute changes Rhythm Strip Diag. Results EP Interpretation: yes Rate: 60 Rhythm: no PVC's, no ectopy, other - Paced Last Vital Signs Date Time Temp Pulse Resp B/P (MAP) Pulse Ox O2 Delivery O2 Flow Rate FiO2 06/23/20 09:00 75 15 Room Air 06/23/20 09:00 98.4 135/71 98 Disposition: ADMITTED INPATIENT Condition: Serious Referrals: NON PHYSICIAN (PCP) Tabby Holland DO Jun 23, 2020 10:32
[2020-06-23 11:02] VITALS: BP 152/68
[2020-06-23 11:21] LABS: APPEARANCE,URINE VERY CLOUDY; BILIRUBIN, URINE NEGATIVE (NEGATIVE); COLOR,URINE PALE YELLOW; GLUCOSE, URINE (UA) NEGATIVE (NEGATIVE); KETONES,URINE NEGATIVE (NEGATIVE); LEUKOCYTE ESTERASE ,URINE 3+ (NEGATIVE); NITRITE,URINE NEGATIVE (NEGATIVE); PH,URINE 7 (4.5-8.0); PROTEIN,URINE 3+ (NEGATIVE); UROBILINOGEN,URINE NORMAL MG/DL (0.0-1.0)
--- NOTE | 2020-06-23 12:30 | NUR ---
ED Nurse Note: Report given to Geraldinei RN of telemetry unit.
--- NOTE | 2020-06-23 12:30 | NUR ---
NURSE NOTES: Pt received from Adeola BEAN from ED. Pt A&O x2 (name and place). Cold to all 4 extremities (especially hands). Vaginal bleeding noted, pure wick applied, will monitor for blood in urine. Pt had BM upon arrival, cleaned by GALINDO. Tele monitor applied. White board updated. Yellow gown and socks put on pt. Bed lowered and locked. Oriented to call light. Pt scaly and flaking all over body. Lotion applied everywhere (except feet). Sacral wound noted, will place wound consult and contact Ashkan. Permacath in right chest bandaged, dressing dry and intact. Pt asking for food, will provide once diet order placed. glasses, iphone, and dentures noted and signed for. Addendum: 06/23/20 at 1310 by Adeola Huston RN Vitals as follows (153/71, 57 bpm, 96 on RA, 98.6 F axillary, 18 respirations)
--- NOTE | 2020-06-23 13:36 | History & Physical ---
History and Physical History & Physicial HISTORY OF PRESENT ILLNESS: The patient is a pleasant 69-year-old female with a history of end-stage renal disease, on hemodialysis. The patient has been transferred from her home as she has missed several HD sessions. Dtr called me in the office and reported and she is advised to transfer mother to hospital . The patient is currently receiving dialysis through a temporary PermCath. Today , the patient denies any chest pain , just diffuse pain and aches. No nausea. No vomitus. No diarrhea. No constipation. PAST MEDICAL HISTORY: Diabetes, CVA, paraparesis, and end-stage renal disease. decubitus wound ALLERGIES: Penicillin. PSH: Right permcath insertion . MEDICATIONS: Current hospital medications including, but not limited to lisinopril, hydralazine, Eliquis, and amiodarone. SOCIAL HISTORY: The patient has a daughter who is involved in the care, is residing in her home with her daughter. she was dc/wd from the senior living facility. No prior history of illicit drug abuse, smoking, or alcohol abuse. PHYSICAL EXAMINATION: BP: 150/85, RR: 13, temperature 98.2, pulse oximetry 98% on room air, and pulse rate 60 to 65. HEAD AND NECK: Atraumatic and normocephalic. CHEST: Clear to auscultation. HEART: S1, S2. Regular rate and rhythm. Bradycardic. MUSCULOSKELETAL: No gross lateralized motor deficit, paraparesis. stage 3 decubitus wound in calcaneal region.NEUROLOGIC: The patient is awake and alert x 2. LABORATORY AND DIAGNOSTIC DATA: Labs dated 06/23/20 reviewed ASSESSMENT: 1. hyperKalemia and Missed HD sessions 2. Decubitus wound, enlarging and infected. 3. End-stage renal disease, on temporary PermCath hemodialysis access. 2. Paroxysmal atrial fibrillation, rate is stable. 3. Diabetes type 2. 4. Hypertension. 5. Hyperlipidemia. 6. CVA-history. 7. Dementia. 8. Gastrointestinal and deep vein thrombosis prophylaxes. 9. Pain management Plan: HD- per Nephrology Nephrol-Critical care and vascular services consulted. Agree with Telemetry admission Danie Banegas MD Jun 23, 2020 13:36
--- NOTE | 2020-06-23 13:48 | NUR ---
NURSE NOTES: [facility] Called for dialysis today.
--- NOTE | 2020-06-23 15:06 | Consultation ---
Consult Note Consult Note I am asked to evaluate the patient at the request of Dr. Banegas for dialysis management Patient is known to me and is under my care for her dialysis related condition. It appears that the patient missed dialysis 2 or 3 times because of transportation problem related to her insurance Patient referred to emergency room with weakness ER note: Chief Complaint: Generalized Weakness This patient is brought in by EMS. She is also accompanied by her daughter. The patient has a history of multiple chronic medical problems. She has a history of CVA with left-sided weakness and end-stage renal disease and is dialysis dependent. She has not been to dialysis in over 1 week. Per the patient, the transportation to get her to dialysis did not arrive. She has no other transportation other than the shuttle system that is in place for her. She states that she has generalized weakness. She denies new pain. She states she has chronic pain in her left side of her body. She denies fever or chills. She denies nausea or vomiting. She denies dysuria. She denies abdominal pain. She has no other complaints. 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 COVID-19 Screening: Negative COVID-19 COVID-19 Testing Source: unk source Past Medical History: see triage record, DM, HTN, [place], CAD, CHF, COPD, GERD, CVA/TIA, renal disease, dialysis Past Surgical History: pacemaker Past Medical History: No History, Except For Hx Cardiac Problems: Yes - BRADYCARDIA, FLUID OVERLOAD Hx Hypertension: Yes Hx Pacemaker: Yes - LEFT UPPER CHEST Hx Asthma: Yes Hx COPD: Yes Hx Diabetes: Yes Hx Gastrointestinal Problems: No Hx Dialysis: Yes - ESRD ON HD (MWF) Hx Neurological Problems: Yes Hx Cerebrovascular Accident: Yes - 1974 Hx Weakness: Yes Seen in ER DIscussed with Dr Holland ER Physician Vital Signs Date Time Temp Pulse Resp B/P (MAP) Pulse Ox O2 Delivery O2 Flow Rate FiO2 06/23/20 08:50 98.4 61 12 133/55 (81) 98 Room Air Sp02 EP Interpretation: reviewed, normal General Appearance: no apparent distress,lethargic Head: normocephalic, atraumatic ENT: hearing grossly normal, no angioedema, normal voice Neck: normal inspection, full range of motion Respiratory: chest non-tender, lungs clear, decrease BS bases , no accessory muscle use, speaking full sentences Cardiovascular #1: regular rate, rhythm, occ irregular beats Gastrointestinal: normal bowel sounds, non tender, soft, non-distended, no guarding, no rebound Rectal: deferred Musculoskeletal: back normal, normal range of motion, Neurologic: responsive, speech normal, other - L. weakness (baseline) Skin: Decubitus/Ulcer - See RN skin exam- DIalysis catheter in chest . Assessment/Plan ESRD (end stage renal disease), missed few sessions of hemodialysis Volume overload , Hyperkalemia other conditions: -. Diabetes with diabetic nephropathy and neuropathy. -. History of CVA with left weakness. -. History of atrial fibrillation. -. History of pacemaker. Plan: Stat hemodialysis with low potassium bath ordered Ultrafiltration max as tolerated during hemodialysis continue meds Aim to keep the BP and BS in check Patient had multiple previous admissions here at [facility] . I spent an additional 36 minutes on review of medical records including prior hospital records,consult notes, progress notes, procedures ,imaging labs, hemodynamics, and other clinical documentation. Over 35 min Manas Stephenson MD Jun 23, 2020 15:06
--- NOTE | 2020-06-23 15:09 | Diagnostic Imaging Report ---
Indication: Chest pain, shortness of breath Technique: XRAY Chest 1v Comparison: 05/03/2020 Findings: Heart size and mediastinal contours are stable. Left-sided dual-lead pacemaker and right transjugular tunneled dialysis catheter remain in place. There is mild pulmonary vascular prominence. No evidence of alveolar edema. No focal consolidation, pleural effusion or pneumothorax. Degenerative changes are noted in the spine. No acute osseous abnormality. IMPRESSION: Mild pulmonary vascular prominence. No evidence of alveolar edema. No focal consolidation. Indwelling dialysis catheter and pacemaker.
--- NOTE | 2020-06-23 15:14 | Consultation ---
DATE OF CONSULTATION: 06/23/2020 PULMONARY CONSULTATION CONSULTING PHYSICIAN: Suraj Roe MD. HISTORY OF PRESENT ILLNESS: This is a 69-year-old female, who is brought to the hospital after missing dialysis. The patient has a history of previous CVA and ESRD and is dialysis dependent. She has missed dialysis for a week, apparently due to transportation issues. The patient was admitted to the hospital with pulmonary edema. I have been asked to consult for respiratory status. Currently, the patient is saturating 98% on room air, respirations are 16. PAST MEDICAL HISTORY: Notable for ESRD on dialysis, previous CVA, hypertension, CAD, GERD. PREVIOUS SURGERIES: PermCath for dialysis. She also has history of a pacemaker. REVIEW OF SYSTEMS: Denies any headaches, hematemesis, melena, hematochezia, or weight loss. HOME MEDICATIONS: Reviewed and reconciled in the chart. PHYSICAL EXAMINATION: GENERAL: Reveals 69-year-old female. VITAL SIGNS: Blood pressure is 130/50, heart rate 64, respirations 16. O2 saturation 98% on room air. She is afebrile. HEENT: Unremarkable. LUNGS: Decreased breath sounds bilaterally. ABDOMEN: Soft. EXTREMITIES: There is no edema. ABDOMEN: Soft. LABORATORY TESTING: Shows potassium 6.6. Creatinine 12.7. Hemoglobin . X-ray chest per report shows evidence of mild vascular congestion per ER note. IMPRESSION: 1. Hyperkalemia. 2. Pulmonary edema. 3. Missed dialysis. 4. Diabetes mellitus. 5. Hypertension. 6. History of COPD. DISCUSSION: Admit to the hospital. Currently saturating well on room air. She needs urgent dialysis. Nephrology consultation has been requested. We will follow carefully. Discussed with Dr. Banegas. Suraj Roe M.D. DR: CELIA JOB#: [id number] CC:
[2020-06-23] MEDS ORDERED: HydrALAZINE 25mg tab ORAL PRN (15:30)
[2020-06-23] MEDS ORDERED: Albuterol ud Inhalation HHN PRN (15:30)
[2020-06-23 16:00] VITALS: BP 165/71
[2020-06-23 16:19] LABS: CALCIUM 9.2 MG/DL (8.5-10.1); CREATININE 12.5 MG/DL (0.55-1.30)
--- NOTE | 2020-06-23 16:22 | NUR ---
NURSE NOTES: Pt seen by Ashkan, juan Luther wounds are DTI's and require Physician wound consult. Additionally pt had episode of vomiting. Contacted Dr. Banegas about nausea med and order approval of physician wound consult.
[2020-06-23 16:25] LABS: POTASSIUM 6.2 MMOL/L (3.5-5.1)
--- NOTE | 2020-06-23 16:55 | NUR ---
NURSE NOTES:WOUND CARE NOTES:Pt presented on admission with Multiple Pressure injuries.Sacral DTPI noted over previously compromised area. Surrounding surgical scar. Base of Pressure Injury is indurated ,purpuric with Maroon Borders. Black discoloration with marginal erythema noted to R and L Buttocks. Linear area of hyperpigmentation noted sacral cleft. Darker skin tone without erythema or induration noted to R and L ischial tuberosities. L 1st metatarsal is black with small blood filled blister at tip of metatarsal.Web space of L 1st and L 2nd metatarsal is erythematous and macerated. Mild odor noted. Dry necrotic area noted to lateral aspect of L 5th metatarsal. Dry eschar lateral L foot (L)1cm x (W)1.5cm. Periwound is dry without erythema or fluctuance. Unstageable Pressure Injury L Heel(L)2.4cm x (W)3.5cm. Base of wound is necrotic with surrounding moist and pale skin,dry black borders. R 1st metatarsal is black. T heel is boggy, pale with dry peeling skin. Tx.Plan:Cleanse Sacral wound with Saline. Apply TheraHoney. Apply Moisture Barrier Paste Periwound. Cover with Optifoam drsg. Change every 3 days and prn. Apply Moisture Barrier Paste to R and L ischial tuberosities with each Incontinence care. Follow-up with for wound care orders for L heel ulcer. Apply Cavilon Skin Barrier to R Heel. Cover with Optifoam drsg. Change every 7 days and prn. Reposition at least every 2hours or as tolerated. off-load heels with pillows.
[2020-06-23] MEDS: Docusate 100mg cap ORAL SCH (18:00)
[2020-06-23] MEDS ORDERED: Docusate 100mg cap ORAL SCH (18:00)
--- NOTE | 2020-06-23 19:46 | NUR ---
NURSE NOTES: Received patient from VIKAS Mir. Patient Addendum: 06/23/20 at 1948 by Willian Keating RN NURSE NOTES: Patient awake and able to verbalize needs. IV site intact and flushed. On room air, saturating well. Breathing unlabored and even. Noted to have a right upper chest permacath for HD and right upper chest pacemaker. Also with old left forearm AV fistula that s non-functioning. No complaints of pain or discomfort during the shift. Bed in lowest position, brakes engaged and bed alarm on. Call light placed within reach. Will continue to monitor.
--- NOTE | 2020-06-23 19:52 | NUR ---
HAND-OFF: Report given to Frank BEAN. Endorsed meds which were held off until after dialysis. Mentioned low Plt and vaginal bleeding and 2 episodes of soft stool.
[2020-06-23 20:00] VITALS: BP 152/78
[2020-06-23] MEDS ORDERED: Heparin 5000 units/ml inj SUBQ SCH (21:00)
[2020-06-23] MEDS: Eliquis 2.5mg tablet ORAL SCH (21:58)
[2020-06-23] MEDS: Renvela 800mg Pkt ORAL SCH (21:59)
[2020-06-23] MEDS: HydrALAZINE 25mg tab ORAL SCH (21:59)
[2020-06-24] VITALS: BP 121/70
[2020-06-24 04:00] VITALS: BP 110/38
[2020-06-24] MEDS: HydrALAZINE 25mg tab ORAL SCH ×3 (05:36→21:01)
--- NOTE | 2020-06-24 07:36 | NUR ---
NURSE HAND-OFF REPORT: Important Events on Shift:[No IV access. Colace withheld last night] Patient Status: [FC] Diet: [Renal diet, think liquids] Pending Orders: [] Pending Results/Labs:[] Pending MD notification:[] Latest Vital Signs: Temperature 97.7 , Pulse 59 , B/P 110 /38 , Respiratory Rate 20 , O2 SAT 96 , Room Air, O2 Flow Rate . Vital Sign Comment: [] EKG Rhythm: A-Paced Rhythm change?: N MD Notified?: - MD Response: Latest Srivastava Fall Score: 50 Fall Risk: High Risk Safety Measures: Call light Within Reach, Bed Alarm Zone 1, Side Rails Side Rails x2, Bed position Low and Locked. Fall Precautions: Yellow Socks Yellow Gown Door Sign Patient Fall Education Report given to [VIKAS Mir].
--- NOTE | 2020-06-24 07:37 | NUR ---
NURSE NOTES: Pt received from Frank BEAN. Pt in bed sleeping. Endorsed to me that her IV came out last night. Will reinsert new one later today. Bed low and locked. Call light within reach. White board updated.
[2020-06-24 07:55] VITALS: BP 114/45
--- NOTE | 2020-06-24 07:58 | NUR ---
RD ASSESSMENT & RECOMMENDATIONS SEE CARE ACTIVITY FOR COMPLETE ASSESSMENT DAILY ESTIMATED NEEDS: Needs based on ESRD on HD, wound obese 70.5kg abw 20-25 kcals/kg 5169-7685 total kcals 1.8-2.5 IBW 56.8kg g protein/kg 102-142 g total protein Fluid per MD on HD NUTRITION DIAGNOSIS: Increased protein needs r/t renal dysfunction and wound healing as evidenced by pt w/ ESRD on HD, w/ L heel unstageable wound. CURRENT DIET:renal diet, no chicken PO DIET RECOMMENDATIONS: RENAL DIET/ texture per OIL DIPPER ADDITIONAL RECOMMENDATIONS: 1) Calibrated bedscale wt if adding P200 mattress + pump 2) Add NEPRO 1 tetra w/ meals w/ poor meal acceptance Prior adm w/ poor po intake 3) Wound care: continue SOLEDAD BID + Add Nephrovite x1 daily Vit C-> dosing per nephro 4) Monitor lytes and renal fxn .
[2020-06-24] MEDS: Renvela 800mg Pkt ORAL SCH ×3 (08:31→18:21)
[2020-06-24] MEDS: Docusate 100mg cap ORAL SCH ×3 (08:32→18:00)
[2020-06-24] MEDS: Eliquis 2.5mg tablet ORAL SCH ×2 (08:32→18:17)
[2020-06-24] MEDS: Aspirin Baby 81mg ORAL SCH (09:00)
[2020-06-24 09:08] LABS: BASOPHILS % (AUTO) 2.8 % (0.0-2.0); EOSINOPHILS % (AUTO) 4.6 % (0.0-3.0); HEMATOCRIT 33.9 % (37.0-47.0); HEMOGLOBIN 11.1 G/DL (12.0-16.0); LYMPHOCYTES % (AUTO) 32.6 % (20.0-45.0); MEAN CORPUSCULAR VOLUME 91 FL (80-99); MONOCYTES % (AUTO) 10.3 % (1.0-10.0); NEUTROPHILS % (AUTO) 49.6 % (45.0-75.0); PLATELET COUNT 112 K/UL (150-450); RED BLOOD COUNT 3.71 M/UL (4.20-5.40); RED CELL DISTRIBUTION WIDTH 12.8 % (11.6-14.8); WHITE BLOOD COUNT 5.1 K/UL (4.8-10.8)
[2020-06-24 09:36] LABS: ALANINE AMINOTRANSFERASE 15 U/L (12-78); ALBUMIN 3.2 G/DL (3.4-5.0); ALBUMIN/GLOBULIN RATIO 0.9 (1.0-2.7); ALKALINE PHOSPHATASE 73 U/L (46-116); ANION GAP 9 mmol/L (5-15); ASPARTATE AMINO TRANSFERASE 16 U/L (15-37); BILIRUBIN,TOTAL 0.5 MG/DL (0.2-1.0); BLOOD UREA NITROGEN 46 mg/dL (7-18); CALCIUM 8.8 MG/DL (8.5-10.1); CARBON DIOXIDE 30 MMOL/L (21-32); CHLORIDE 97 MMOL/L (98-107); CHOLESTEROL 168 MG/DL (< 200); CREATININE 7.5 MG/DL (0.55-1.30); GAMMA GLUTAMYL TRANSPEPTIDASE 22 U/L (5-85); HDL CHOLESTEROL 62 MG/DL (40-60); PHOSPHORUS 3.5 MG/DL (2.5-4.9); POTASSIUM 4.6 MMOL/L (3.5-5.1); SODIUM 136 MMOL/L (136-145); TRIGLYCERIDES 60 MG/DL (30-150)
--- NOTE | 2020-06-24 09:48 | NUR ---
NURSE NOTES: Asprin held as plt is trending down (112 from 133 yesterday). Maurice schaefer. Will report to Dr. Banegas on his round.
--- NOTE | 2020-06-24 10:08 | Consultation ---
History of Present Illness General Date patient seen: Jun 24, 2020 Reason for Hospitalization: Generalized Weakness Present Illness HPI This is a very pleasant 69-year-old female well-known to me from prior admissions and care plans who has a she is admitted further care and management. On admission surgery called to evaluate and assist with care and management. Patient continues to have multiple wounds abnormal labs history of multiple chronic medical problems. She has a history of CVA with left-sided weakness and end-stage renal disease and is dialysis dependent. She has not been to dialysis in over 1 week. Per the patient, the transportation to get her to dialysis did not arrive. She has no other transportation other than the shuttle system that is in place for her. She states that she has generalized weakness. She denies new pain. She states she has chronic pain in her left side of her body. She denies fever or chills. She denies nausea or vomiting. She denies dysuria. She denies abdominal pain. She has no other complaints.. Allergies: Coded Allergies: PENICILLINS (Verified Allergy, Unknown, 04/23/20) Tolerated Cefepime 04/23/20 COVID-19 Screening Contact w/high risk pt: No Recent Travel to affected area: No Experienced COVID-19 symptoms?: No Medication History Scheduled Amino Acids/Protein Hydrolys (Pro-Stat Liquid), 30 ML ORAL TWICE A DAY, (Reported) Apixaban (Eliquis), 2.5 MG ORAL BID Aspirin* (Aspirin*), 81 MG ORAL DAILY Atorvastatin Calcium* (Atorvastatin Calcium*), 10 MG ORAL BEDTIME, (Reported) Cholecalciferol (Vitamin D3) (Vitamin D-400*), 400 UNITS ORAL DAILY, (Reported) Docusate Sodium* (Docusate Sodium*), 100 MG ORAL TWICE A DAY, (Reported) Ferrous Sulfate* (Ferrous Sulfate*), 325 MG ORAL DAILY, (Reported) Gabapentin* (Gabapentin*), 100 MG ORAL Q12HR, (Reported) Gabapentin* (Gabapentin*), 300 MG ORAL THREE TIMES A DAY, (Reported) Hydralazine Hcl* (Hydralazine Hcl*), 25 MG ORAL EVERY 8 HOURS, (Reported) Sevelamer Carbonate* (Renvela*), 800 MG ORAL THREE TIMES A DAY, (Reported) Vitamin B Complex (Vitamin B Complex), 1 EACH PO DAILY, (Reported) [Nephro Aide], 1 TAB PO DAILY, (Reported) Scheduled PRN Acetaminophen* (Acetaminophen 325MG Tablet*), 650 MG ORAL Q4H PRN for For Pain, (Reported) Albuterol Sulfate* (Albuterol Sulfate Hhn*), 3 ML INH Q6H PRN for wheezing, (Reported) Bisacodyl (Bisacodyl), 10 MG RC EVERY DAY PRN for Constipation, (Reported) Hydrocodone Bit/Acetaminophen 5-325* ([place] 5-325*), 1 TAB ORAL Q4H PRN for For Pain, (Reported) Na Phos,M-B/Na Phos,Di-Ba* (Fleet Enema*), 133 ML RECTAL DAILY PRN for Constipation, (Reported) Miscellaneous Medications Dextran 70/Hypromellose (Artificial Tears Eye Drops*), 1 DROP BOTH EYES, (Reported) Discontinued Medications [Vanco pharmacy to dose], 1 EA MISC DAILY PRN Discontinued Reason: Medication dose changed [Vanco pharmacy to dose], 1 EA MISC DAILY PRN Discontinued Reason: MD discontinued med Patient History Limited by: medical condition History Provided By: Medical Record, PMD Healthcare decision maker Resuscitation status Advanced Directive on File Past Medical/Surgical History Past Medical/Surgical History: (1) ESRD (end stage renal disease) (2) Volume overload (3) COPD (chronic obstructive pulmonary disease) (4) Hyperkalemia (5) Generalized weakness (6) Bradycardia (7) Diabetic nephropathy (8) Diabetic nephropathy (9) Pacemaker (10) Hypertensive kidney disease (11) History of atrial fibrillation (12) History of CVA (cerebrovascular accident) (13) Cellulitis of left foot (14) Heel abrasion (15) Anemia in chronic kidney disease (CKD) (16) Elevated troponin I level (17) Urinary tract infection due to Proteus (18) Dyspnea (19) Symptomatic anemia (20) Acute on chronic renal failure (21) Anemia (22) HTN (hypertension) Review of Systems Review of Symptoms General ROS: no weight loss or fever Psychological ROS: no depression or mood changes, no memory loss Ophthalmic ROS: no visual changes or eye irritation ENT ROS: no nasal congestion, hearing loss, dizziness Allergy and Immunology ROS: no allergic symptoms or urticaria Hematological and Lymphatic ROS: no swollen glands, unusual bleeding or bruising Endocrine ROS: no polyuria, polydipsia, weight changes, temperature intolerance Respiratory ROS: no cough, shortness of breath, or wheezing Cardiovascular ROS: no chest pain or dyspnea on exertion Gastrointestinal ROS: denies abdominal pain, bright red blood in stool. Musculoskeletal ROS: no myalgias or arthralgias Neurological ROS: no TIA or stroke symptoms Dermatological ROS: no new or changing skin lesions, rashes or pruritis limited given condition Physical Exam Physical Exam General appearance: alert, no distress, appears stated age Head: Normocephalic, without obvious abnormality, atraumatic Eyes: conjunctivae/corneas clear. PERRL, EOM's intact. Fundi benign Throat: Lips, mucosa, and tongue normal. Teeth and gums normal Neck: supple, symmetrical, trachea midline, no adenopathy, thyroid: not enlarged, symmetric, no tenderness/mass/nodules, no carotid bruit and no JVD Lungs: clear to auscultation bilaterally Heart: regular rate and rhythm, S1, S2 normal, no murmur, click, rub or gallop Abdomen: soft, non-tender. Bowel sounds normal. No masses, no organomegaly Extremities: extremities normal, atraumatic, no cyanosis or edema Pulses: 2+ and symmetric Skin: Skin see below Neurologic: Grossly normal Last 24 Hour Vital Signs Date Time Temp Pulse Resp B/P (MAP) Pulse Ox O2 Delivery O2 Flow Rate FiO2 06/24/20 09:00 Room Air 06/24/20 08:00 60 06/24/20 07:55 97.9 59 18 114/45 (68) 95 06/24/20 05:36 110/38 06/24/20 04:00 60 06/24/20 04:00 97.7 59 20 110/38 (62) 96 06/24/20 00:00 97.9 60 20 121/70 (87) 96 06/24/20 00:00 60 06/23/20 21:59 152/78 06/23/20 21:00 Room Air 06/23/20 20:00 60 06/23/20 20:00 97.7 64 20 152/78 (102) 95 06/23/20 16:00 96.8 60 18 165/71 (102) 96 06/23/20 16:00 60 06/23/20 13:58 Room Air 06/23/20 12:31 98.6 77 20 145/70 97 Room Air 06/23/20 11:02 98.2 89 16 152/68 100 Room Air Intake and Output 06/23/20 06/24/20 19:00 07:00 Intake Total 1250 ml Output Total 1050 ml Balance 1250 ml -1050 ml Intake Oral 250 ml IV Total 1000 ml Output Urine Total 50 ml Hemodialysis UF 1000 ml # Voids 2 1 # Bowel Movements 3 1 Laboratory Tests Test 06/23/20 10:33 06/23/20 15:40 06/24/20 08:55 Urine Color Pale yellow Urine Appearance Very cloudy Urine pH 7 (4.5-8.0) Urine Specific [place] 1.010 (1.005-1.035) Urine Protein 3+ (NEGATIVE) H Urine Glucose (UA) Negative (NEGATIVE) Urine Ketones Negative (NEGATIVE) Urine Blood 5+ (NEGATIVE) H Urine Nitrite Negative (NEGATIVE) Urine Bilirubin Negative (NEGATIVE) Urine Urobilinogen Normal MG/DL (0.0-1.0) Urine Leukocyte Esterase 3+ (NEGATIVE) H Urine RBC 20-30 /HPF (0 - 2) H Urine WBC Tntc /HPF (0 - 2) H Urine Squamous Epithelial Cells Few /LPF (NONE/OCC) Urine Bacteria Moderate /HPF (NONE) H Sodium Level 143 MMOL/L (136-145) 136 MMOL/L (136-145) Potassium Level 6.2 MMOL/L (3.5-5.1) *H 4.6 MMOL/L (3.5-5.1) Chloride Level 106 MMOL/L (98-107) 97 MMOL/L (98-107) L Carbon Dioxide Level 25 MMOL/L (21-32) 30 MMOL/L (21-32) Anion Gap 11 mmol/L (5-15) 9 mmol/L (5-15) Blood Urea Nitrogen 96 mg/dL (7-18) H 46 mg/dL (7-18) H Creatinine 12.5 MG/DL (0.55-1.30) H 7.5 MG/DL (0.55-1.30) H Estimat Glomerular Filtration Rate 3.6 mL/min (>60) 6.4 mL/min (>60) Glucose Level 145 MG/DL (74-106) H 81 MG/DL (74-106) Calcium Level 9.2 MG/DL (8.5-10.1) 8.8 MG/DL (8.5-10.1) Hepatitis B Surface Antigen Pending White Blood Count 5.1 K/UL (4.8-10.8) Red Blood Count 3.71 M/UL (4.20-5.40) L Hemoglobin 11.1 G/DL (12.0-16.0) L Hematocrit 33.9 % (37.0-47.0) L Mean Corpuscular Volume 91 FL (80-99) Mean Corpuscular Hemoglobin 30.0 PG (27.0-31.0) Mean Corpuscular Hemoglobin Concent 32.8 G/DL (32.0-36.0) Red Cell Distribution Width 12.8 % (11.6-14.8) Platelet Count 112 K/UL (150-450) L Mean Platelet Volume 8.8 FL (6.5-10.1) Neutrophils (%) (Auto) 49.6 % (45.0-75.0) Lymphocytes (%) (Auto) 32.6 % (20.0-45.0) Monocytes (%) (Auto) 10.3 % (1.0-10.0) H Eosinophils (%) (Auto) 4.6 % (0.0-3.0) H Basophils (%) (Auto) 2.8 % (0.0-2.0) H Hemoglobin A1c 5.4 % (4.3-6.0) Uric Acid 4.2 MG/DL (2.6-7.2) Phosphorus Level 3.5 MG/DL (2.5-4.9) Magnesium Level 2.7 MG/DL (1.8-2.4) H Total Bilirubin 0.5 MG/DL (0.2-1.0) Gamma Glutamyl Transpeptidase 22 U/L (5-85) Aspartate Amino Transf (AST/SGOT) 16 U/L (15-37) Alanine Aminotransferase (ALT/SGPT) 15 U/L (12-78) Alkaline Phosphatase 73 U/L (46-116) C-Reactive Protein, Quantitative 0.7 mg/dL (0.00-0.90) Pro-B-Type Natriuretic Peptide 5766 pg/mL (0-125) H Total Protein 6.6 G/DL (6.4-8.2) Albumin 3.2 G/DL (3.4-5.0) L Globulin 3.4 g/dL Albumin/Globulin Ratio 0.9 (1.0-2.7) L Triglycerides Level 60 MG/DL (30-150) Cholesterol Level 168 MG/DL (< 200) LDL Cholesterol 85 mg/dL (<100) HDL Cholesterol 62 MG/DL (40-60) H Cholesterol/HDL Ratio 2.7 (3.3-4.4) L Microbiology Date/Time Source Procedure Growth Status 06/23/20 11:05 Rectum Received 06/23/20 10:33 Urine,Clean Catch Urine Culture - Preliminary NO GROWTH Resulted Height (Feet): 5 Height (Inches): 5.00 Weight (Pounds): 238 Medications Current Medications Medications (Trade) Dose Ordered Sig/Jesus Route PRN Reason Start Time Stop Time Status Last Admin Dose Admin Acetaminophen (Tylenol) 650 mg Q4H PRN ORAL For Pain 06/23/20 15:15 07/23/20 15:14 Albuterol Sulfate (Proventil) 2.5 mg Q6H PRN HHN wheezing 06/23/20 15:30 06/28/20 15:29 Apixaban (Eliquis) 2.5 mg BID ORAL 06/23/20 18:00 09/21/20 17:59 06/24/20 08:32 Aspirin (ASA) 81 mg DAILY ORAL 06/24/20 09:00 08/08/20 08:59 Atorvastatin Calcium (Lipitor) 10 mg BEDTIME ORAL 06/23/20 21:00 09/21/20 20:59 06/23/20 21:59 Docusate Sodium (Colace) 100 mg THREE TIMES A DAY ORAL 06/23/20 18:00 07/23/20 17:59 06/24/20 08:32 Gabapentin (Neurontin) 100 mg BID ORAL 06/23/20 18:00 07/23/20 17:59 06/24/20 08:31 Hydralazine HCl (Apresoline) 25 mg EVERY 8 HOURS ORAL 06/23/20 22:00 09/21/20 21:59 06/23/20 21:59 Hydralazine HCl (Apresoline) 25 mg Q4H PRN ORAL bp over 160 syst 06/23/20 15:30 09/21/20 15:29 Ondansetron HCl (Zofran) 4 mg Q6H PRN IVP Nausea & Vomiting 06/23/20 20:00 07/23/20 19:59 Pantoprazole (Protonix) 40 mg EVERY 12 HOURS ORAL 06/23/20 21:00 07/23/20 20:59 06/24/20 08:32 Sevelamer Carbonate (Renvela) 800 mg THREE TIMES A DAY ORAL 06/23/20 18:00 09/21/20 17:59 06/24/20 08:31 Assessment/Plan Problem List: (1) Diabetic nephropathy ICD Codes: E11.21 - Type 2 diabetes mellitus with diabetic nephropathy SNOMED: 28379730, 431885222 (2) Cellulitis of left foot ICD Codes: L03.116 - Cellulitis of left lower limb SNOMED: 731385792 (3) Pacemaker ICD Codes: Z95.0 - Presence of cardiac pacemaker SNOMED: 779927811 (4) Anemia in chronic kidney disease (CKD) ICD Codes: N18.9 - Chronic kidney disease, unspecified; D63.1 - Anemia in chronic kidney disease SNOMED: 967909332 (5) History of CVA (cerebrovascular accident) ICD Codes: Z86.73 - Personal history of transient ischemic attack (TIA), and cerebral infarction without residual deficits SNOMED: 308245700 (6) History of atrial fibrillation ICD Codes: Z86.79 - Personal history of other diseases of the circulatory system SNOMED: 464562919 (7) COPD (chronic obstructive pulmonary disease) ICD Codes: J44.9 - Chronic obstructive pulmonary disease, unspecified SNOMED: 42743183 (8) Bradycardia ICD Codes: R00.1 - Bradycardia, unspecified SNOMED: 02822650 (9) Diabetic nephropathy ICD Codes: E11.21 - Type 2 diabetes mellitus with diabetic nephropathy SNOMED: 03351070, 675077806 (10) Hypertensive kidney disease ICD Codes: I12.9 - Hypertensive chronic kidney disease with stage 1 through stage 4 chronic kidney disease, or unspecified chronic kidney disease SNOMED: 69282758 (11) Heel abrasion ICD Codes: S90.819A - Abrasion, unspecified foot, initial encounter SNOMED: 187154947, 749927442 (12) Elevated troponin I level ICD Codes: R74.8 - Abnormal levels of other serum enzymes SNOMED: 223010031 (13) Urinary tract infection due to Proteus ICD Codes: N39.0 - Urinary tract infection, site not specified; B96.4 - Proteus (mirabilis) (morganii) as the cause of diseases classified elsewhere SNOMED: 663310982 (14) ESRD (end stage renal disease) ICD Codes: N18.6 - End stage renal disease SNOMED: 25483494 (15) Volume overload ICD Codes: E87.70 - Fluid overload, unspecified SNOMED: 79260210 (16) Hyperkalemia ICD Codes: E87.5 - Hyperkalemia SNOMED: 84392345 (17) Generalized weakness ICD Codes: R53.1 - Weakness SNOMED: 88497918 (18) Dyspnea ICD Codes: R06.00 - Dyspnea, unspecified SNOMED: 840487612 (19) Symptomatic anemia ICD Codes: D64.9 - Anemia, unspecified SNOMED: 044819558 (20) Acute on chronic renal failure ICD Codes: N17.9 - Acute kidney failure, unspecified; N18.9 - Chronic kidney disease, unspecified SNOMED: 790571477 (21) Anemia ICD Codes: D64.9 - Anemia, unspecified SNOMED: 313385551 (22) HTN (hypertension) ICD Codes: I10 - Essential (primary) hypertension SNOMED: 92255399 (23) Deep tissue injury Assessment & Plan: Pt presented on admission with Multiple Pressure injuries.Sacral DTPI noted over previously compromised area. Surrounding surgical scar. Base of Pressure Injury is indurated ,purpuric with Maroon Borders. Black discoloration with marginal erythema noted to R and L Buttocks. Linear area of hyperpigmentation noted sacral cleft. Darker skin tone without erythema or induration noted to R and L ischial tuberosities. L 1st metatarsal is black with small blood filled blister at tip of metatarsal.Web space of L 1st and L 2nd metatarsal is erythematous and macerated. Mild odor noted. Dry necrotic area noted to lateral aspect of L 5th metatarsal. Dry eschar lateral L foot (L)1cm x (W)1.5cm. Periwound is dry without erythema or fluctuance. Unstageable Pressure Injury L Heel(L)2.4cm x (W)3.5cm. Base of wound is necrotic with surrounding moist and pale skin,dry black borders. R 1st metatarsal is black. T heel is boggy, pale with dry peeling skin. Tx.Plan: Cleanse Sacral wound with Saline. Apply TheraHoney. Apply Moisture Barrier Paste Periwound. Cover with Optifoam drsg. Change every 3 days and prn. Apply Moisture Barrier Paste to R and L ischial tuberosities with each Incontinence care. wash L heel. apply betadine and cover with optifoam dressing Apply Cavilon Skin Barrier to R Heel. Cover with Optifoam drsg. Change every 7 days and prn. Reposition at least every 2hours or as tolerated. off-load heels with pillows. nutritional optimization DAILY ESTIMATED NEEDS: Needs based on ESRD on HD, wound obese 70.5kg abw 20-25 kcals/kg 5887-4178 total kcals 1.8-2.5 IBW 56.8kg g protein/kg 102-142 g total protein Fluid per MD on HD NUTRITION DIAGNOSIS: Increased protein needs r/t renal dysfunction and wound healing as evidenced by pt w/ ESRD on HD, w/ L heel unstageable wound. CURRENT DIET:renal diet, no chicken PO DIET RECOMMENDATIONS: RENAL DIET/ texture per JUNIOR PROJECT COORDINATOR ADDITIONAL RECOMMENDATIONS: 1) Calibrated bedscale wt if adding P200 mattress + pump 2) Add NEPRO 1 tetra w/ meals w/ poor meal acceptance Prior adm w/ poor po intake 3) Wound care: continue SOLEDAD BID + Add Nephrovite x1 daily Vit C-> dosing per nephro 4) Monitor lytes and renal fxn ICD Codes: T14.8XXA - Other injury of unspecified body region, initial encounter SNOMED: 258106606 Luis Alberto Cade Jun 24, 2020 10:08
--- NOTE | 2020-06-24 11:20 | General Progress Note ---
Subjective Allergies: Coded Allergies: PENICILLINS (Verified Allergy, Unknown, 04/23/20) Tolerated Cefepime 04/23/20 Objective Last 24 Hour Vital Signs Date Time Temp Pulse Resp B/P (MAP) Pulse Ox O2 Delivery O2 Flow Rate FiO2 06/24/20 09:00 Room Air 06/24/20 08:00 60 06/24/20 07:55 97.9 59 18 114/45 (68) 95 06/24/20 05:36 110/38 06/24/20 04:00 60 06/24/20 04:00 97.7 59 20 110/38 (62) 96 06/24/20 00:00 97.9 60 20 121/70 (87) 96 06/24/20 00:00 60 06/23/20 21:59 152/78 06/23/20 21:00 Room Air 06/23/20 20:00 60 06/23/20 20:00 97.7 64 20 152/78 (102) 95 06/23/20 16:00 96.8 60 18 165/71 (102) 96 06/23/20 16:00 60 06/23/20 13:58 Room Air 06/23/20 12:31 98.6 77 20 145/70 97 Room Air Intake and Output 06/23/20 06/24/20 19:00 07:00 Intake Total 1250 ml Output Total 1050 ml Balance 1250 ml -1050 ml Intake Oral 250 ml IV Total 1000 ml Output Urine Total 50 ml Hemodialysis UF 1000 ml # Voids 2 1 # Bowel Movements 3 1 Laboratory Tests 06/23/20 15:40: Sodium Level 143, Potassium Level 6.2*H, Chloride Level 106, Carbon Dioxide Level 25, Anion Gap 11, Blood Urea Nitrogen 96H, Creatinine 12.5H, Estimat Glomerular Filtration Rate 3.6, Glucose Level 145H, Calcium Level 9.2, Hepatitis B Surface Antigen [Pending] 06/24/20 08:55: Sodium Level 136, Potassium Level 4.6, Chloride Level 97L, Carbon Dioxide Level 30, Anion Gap 9, Blood Urea Nitrogen 46H, Creatinine 7.5H, Estimat Glomerular Filtration Rate 6.4, Glucose Level 81, Calcium Level 8.8, White Blood Count 5.1, Red Blood Count 3.71L, Hemoglobin 11.1L, Hematocrit 33.9L, Mean Corpuscular Volume 91, Mean Corpuscular Hemoglobin 30.0, Mean Corpuscular Hemoglobin Concent 32.8, Red Cell Distribution Width 12.8, Platelet Count 112L, Mean Platelet Volume 8.8, Neutrophils (%) (Auto) 49.6, Lymphocytes (%) (Auto) 32.6, Monocytes (%) (Auto) 10.3H, Eosinophils (%) (Auto) 4.6H, Basophils (%) (Auto) 2.8H, Hemoglobin A1c 5.4, Uric Acid 4.2, Phosphorus Level 3.5, Magnesium Level 2.7H, Total Bilirubin 0.5, Gamma Glutamyl Transpeptidase 22, Aspartate Amino Transf (AST/SGOT) 16, Alanine Aminotransferase (ALT/SGPT) 15, Alkaline Phosphatase 73, C-Reactive Protein, Quantitative 0.7, Pro-B-Type Natriuretic Peptide 5766H, Total Protein 6.6, Albumin 3.2L, Globulin 3.4, Albumin/Globulin Ratio 0.9L, Triglycerides Level 60, Cholesterol Level 168, LDL Cholesterol 85, HDL Cholesterol 62H, Cholesterol/HDL Ratio 2.7L Height (Feet): 5 Height (Inches): 5.00 Weight (Pounds): 238 Assessment/Plan Assessment/Plan: S: I am ok O: seems comfortable, no sob or cp PHYSICAL EXAMINATION: . HEAD AND NECK: Atraumatic and normocephalic. CHEST: Clear to auscultation. HEART: S1, S2. Regular rate and rhythm. Bradycardic. MUSCULOSKELETAL: No gross lateralized motor deficit, paraparesis. stage 3 decubitus wound in calcaneal region.NEUROLOGIC: The patient is awake and alert x 2. LABORATORY AND DIAGNOSTIC DATA: Labs dated 06/24/20 reviewed Meds: reviwed and reconciled in chart ASSESSMENT: 1. hyperKalemia and Missed HD sessions 2. Decubitus wound, enlarging and infected. 3. End-stage renal disease, on temporary PermCath hemodialysis access. 2. Paroxysmal atrial fibrillation, rate is stable. 3. Diabetes type 2. 4. Hypertension. 5. Hyperlipidemia. 6. CVA-history. 7. Dementia. 8. Gastrointestinal and deep vein thrombosis prophylaxes. 9. Pain management Plan: HD- per Nephrology Nephrol-Critical care and vascular services consulted. Agree with Telemetry admission consult SW to discuss options to avoid future delays in outpatient HD Rezvani,Mohammad MD Jun 24, 2020 11:20
--- NOTE | 2020-06-24 11:50 | Pulmonology Progress Note ---
Subjective Interval Events: None new Constitutional: Reports: no symptoms HEENT: Repors: no symptoms Respiratory: Reports: no symptoms Cardiovascular: Reports: no symptoms Gastrointestinal/Abdominal: Reports: no symptoms Genitourinary: Reports: no symptoms Allergies: Coded Allergies: PENICILLINS (Verified Allergy, Unknown, 04/23/20) Tolerated Cefepime 04/23/20 Objective Last 24 Hour Vital Signs Date Time Temp Pulse Resp B/P (MAP) Pulse Ox O2 Delivery O2 Flow Rate FiO2 06/24/20 09:00 Room Air 06/24/20 08:00 60 06/24/20 07:55 97.9 59 18 114/45 (68) 95 06/24/20 05:36 110/38 06/24/20 04:00 60 06/24/20 04:00 97.7 59 20 110/38 (62) 96 06/24/20 00:00 97.9 60 20 121/70 (87) 96 06/24/20 00:00 60 06/23/20 21:59 152/78 06/23/20 21:00 Room Air 06/23/20 20:00 60 06/23/20 20:00 97.7 64 20 152/78 (102) 95 06/23/20 16:00 96.8 60 18 165/71 (102) 96 06/23/20 16:00 60 06/23/20 13:58 Room Air 06/23/20 12:31 98.6 77 20 145/70 97 Room Air Intake and Output 06/23/20 06/24/20 19:00 07:00 Intake Total 1250 ml Output Total 1050 ml Balance 1250 ml -1050 ml Intake Oral 250 ml IV Total 1000 ml Output Urine Total 50 ml Hemodialysis UF 1000 ml # Voids 2 1 # Bowel Movements 3 1 General Appearance: WD/WN HEENT: normocephalic Respiratory: chest wall non-tender Cardiovascular: normal peripheral pulses Microbiology Date/Time Source Procedure Growth Status 06/23/20 11:05 Rectum Received 06/23/20 10:33 Urine,Clean Catch Urine Culture - Preliminary NO GROWTH Resulted 06/23/20 09:15 Nasopharynx SARS-CoV-2 RdRp Gene Assay - Final Complete 06/23/20 09:00 Blood Blood Culture - Preliminary Resulted Laboratory Tests 06/23/20 15:40: Sodium Level 143, Potassium Level 6.2*H, Chloride Level 106, Carbon Dioxide Level 25, Anion Gap 11, Blood Urea Nitrogen 96H, Creatinine 12.5H, Estimat Glomerular Filtration Rate 3.6, Glucose Level 145H, Calcium Level 9.2, Hepatitis B Surface Antigen [Pending] 06/24/20 08:55: Sodium Level 136, Potassium Level 4.6, Chloride Level 97L, Carbon Dioxide Level 30, Anion Gap 9, Blood Urea Nitrogen 46H, Creatinine 7.5H, Estimat Glomerular Filtration Rate 6.4, Glucose Level 81, Calcium Level 8.8, White Blood Count 5.1, Red Blood Count 3.71L, Hemoglobin 11.1L, Hematocrit 33.9L, Mean Corpuscular Volume 91, Mean Corpuscular Hemoglobin 30.0, Mean Corpuscular Hemoglobin Concent 32.8, Red Cell Distribution Width 12.8, Platelet Count 112L, Mean Platelet Volume 8.8, Neutrophils (%) (Auto) 49.6, Lymphocytes (%) (Auto) 32.6, Monocytes (%) (Auto) 10.3H, Eosinophils (%) (Auto) 4.6H, Basophils (%) (Auto) 2.8H, Hemoglobin A1c 5.4, Uric Acid 4.2, Phosphorus Level 3.5, Magnesium Level 2.7H, Total Bilirubin 0.5, Gamma Glutamyl Transpeptidase 22, Aspartate Amino Transf (AST/SGOT) 16, Alanine Aminotransferase (ALT/SGPT) 15, Alkaline Phosphatase 73, C-Reactive Protein, Quantitative 0.7, Pro-B-Type Natriuretic Peptide 5766H, Total Protein 6.6, Albumin 3.2L, Globulin 3.4, Albumin/Globulin Ratio 0.9L, Triglycerides Level 60, Cholesterol Level 168, LDL Cholesterol 85, HDL Cholesterol 62H, Cholesterol/HDL Ratio 2.7L Current Medications Medications (Trade) Dose Ordered Sig/Jesus Route PRN Reason Start Time Stop Time Status Last Admin Dose Admin Acetaminophen (Tylenol) 650 mg Q4H PRN ORAL For Pain 06/23/20 15:15 07/23/20 15:14 Albuterol Sulfate (Proventil) 2.5 mg Q6H PRN HHN wheezing 06/23/20 15:30 06/28/20 15:29 Apixaban (Eliquis) 2.5 mg BID ORAL 06/23/20 18:00 09/21/20 17:59 06/24/20 08:32 Aspirin (ASA) 81 mg DAILY ORAL 06/24/20 09:00 08/08/20 08:59 Atorvastatin Calcium (Lipitor) 10 mg BEDTIME ORAL 06/23/20 21:00 09/21/20 20:59 06/23/20 21:59 Docusate Sodium (Colace) 100 mg THREE TIMES A DAY ORAL 06/23/20 18:00 07/23/20 17:59 06/24/20 08:32 Gabapentin (Neurontin) 100 mg BID ORAL 06/23/20 18:00 07/23/20 17:59 06/24/20 08:31 Hydralazine HCl (Apresoline) 25 mg EVERY 8 HOURS ORAL 06/23/20 22:00 09/21/20 21:59 06/23/20 21:59 Hydralazine HCl (Apresoline) 25 mg Q4H PRN ORAL bp over 160 syst 06/23/20 15:30 09/21/20 15:29 Ondansetron HCl (Zofran) 4 mg Q6H PRN IVP Nausea & Vomiting 06/23/20 20:00 07/23/20 19:59 Pantoprazole (Protonix) 40 mg EVERY 12 HOURS ORAL 06/23/20 21:00 07/23/20 20:59 06/24/20 08:32 Sevelamer Carbonate (Renvela) 800 mg THREE TIMES A DAY ORAL 06/23/20 18:00 09/21/20 17:59 06/24/20 08:31 Assessment/Plan Assessment/Plan IMPRESSION: 1. Hyperkalemia. 2. Pulmonary edema. 3. Missed dialysis. 4. Diabetes mellitus. 5. Hypertension. 6. History of COPD. DISCUSSION: Currently saturating well on room air. Discussed with Dr. Banegas. Yajaira Tse Omar Syed MD Jun 24, 2020 11:50
[2020-06-24 12:00] VITALS: BP 129/64
--- NOTE | 2020-06-24 13:26 | Consultation ---
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 Denied f/c, n/v/d, NUNEZ Of note, patient was admitted here from 04/23- 05/06 for Sepsis, pulmonary PNA vs edema, S. capitis bacteremia. Allergies: Coded Allergies: PENICILLINS (Verified Allergy, Unknown, 04/23/20) Tolerated Cefepime 04/23/20 Medication History Scheduled Amino Acids/Protein Hydrolys (Pro-Stat Liquid), 30 ML ORAL TWICE A DAY, (Reported) Apixaban (Eliquis), 2.5 MG ORAL BID Aspirin* (Aspirin*), 81 MG ORAL DAILY Atorvastatin Calcium* (Atorvastatin Calcium*), 10 MG ORAL BEDTIME, (Reported) Cholecalciferol (Vitamin D3) (Vitamin D-400*), 400 UNITS ORAL DAILY, (Reported) Docusate Sodium* (Docusate Sodium*), 100 MG ORAL TWICE A DAY, (Reported) Ferrous Sulfate* (Ferrous Sulfate*), 325 MG ORAL DAILY, (Reported) Gabapentin* (Gabapentin*), 100 MG ORAL Q12HR, (Reported) Gabapentin* (Gabapentin*), 300 MG ORAL THREE TIMES A DAY, (Reported) Hydralazine Hcl* (Hydralazine Hcl*), 25 MG ORAL EVERY 8 HOURS, (Reported) Sevelamer Carbonate* (Renvela*), 800 MG ORAL THREE TIMES A DAY, (Reported) Vitamin B Complex (Vitamin B Complex), 1 EACH PO DAILY, (Reported) [Nephro Aide], 1 TAB PO DAILY, (Reported) Scheduled PRN Acetaminophen* (Acetaminophen 325MG Tablet*), 650 MG ORAL Q4H PRN for For Pain, (Reported) Albuterol Sulfate* (Albuterol Sulfate Hhn*), 3 ML INH Q6H PRN for wheezing, (Reported) Bisacodyl (Bisacodyl), 10 MG RC EVERY DAY PRN for Constipation, (Reported) Hydrocodone Bit/Acetaminophen 5-325* (Globe 5-325*), 1 TAB ORAL Q4H PRN for For Pain, (Reported) Na Phos,M-B/Na Phos,Di-Ba* (Fleet Enema*), 133 ML RECTAL DAILY PRN for Consti pation, (Reported) Miscellaneous Medications Dextran 70/Hypromellose (Artificial Tears Eye Drops*), 1 DROP BOTH EYES, (Reported) Discontinued Medications [Vanco pharmacy to dose], 1 EA MISC DAILY PRN Discontinued Reason: Medication dose changed [[facility] pharmacy to dose], 1 EA MISC DAILY PRN Discontinued Reason: MD discontinued med Patient History Healthcare decision maker Resuscitation status Advanced Directive on File Patient History Narrative Pmhx: as above Shx: Denies: smoking, alcohol use, drug use Fhx: non contributory Review of Systems All Other Systems: negative except mentioned in HPI Physical Exam Physical Exam Narrative HEENT: Unremarkable. LUNGS: Decreased breath sounds bilaterally. ABDOMEN: Soft. EXTREMITIES: There is no edema. Last 24 Hour Vital Signs Date Time Temp Pulse Resp B/P (MAP) Pulse Ox O2 Delivery O2 Flow Rate FiO2 06/24/20 09:00 Room Air 06/24/20 08:00 60 06/24/20 07:55 97.9 59 18 114/45 (68) 95 06/24/20 05:36 110/38 06/24/20 04:00 60 06/24/20 04:00 97.7 59 20 110/38 (62) 96 06/24/20 00:00 97.9 60 20 121/70 (87) 96 06/24/20 00:00 60 06/23/20 21:59 152/78 06/23/20 21:00 Room Air 06/23/20 20:00 60 06/23/20 20:00 97.7 64 20 152/78 (102) 95 06/23/20 16:00 96.8 60 18 165/71 (102) 96 06/23/20 16:00 60 06/23/20 13:58 Room Air Intake and Output 06/23/20 06/24/20 19:00 07:00 Intake Total 1250 ml Output Total 1050 ml Balance 1250 ml -1050 ml Intake Oral 250 ml IV Total 1000 ml Output Urine Total 50 ml Hemodialysis UF 1000 ml # Voids 2 1 # Bowel Movements 3 1 Laboratory Tests Test 06/23/20 15:40 06/24/20 08:55 Sodium Level 143 MMOL/L (136-145) 136 MMOL/L (136-145) Potassium Level 6.2 MMOL/L (3.5-5.1) *H 4.6 MMOL/L (3.5-5.1) Chloride Level 106 MMOL/L (98-107) 97 MMOL/L (98-107) L Carbon Dioxide Level 25 MMOL/L (21-32) 30 MMOL/L (21-32) Anion Gap 11 mmol/L (5-15) 9 mmol/L (5-15) Blood Urea Nitrogen 96 mg/dL (7-18) H 46 mg/dL (7-18) H Creatinine 12.5 MG/DL (0.55-1.30) H 7.5 MG/DL (0.55-1.30) H Estimat Glomerular Filtration Rate 3.6 mL/min (>60) 6.4 mL/min (>60) Glucose Level 145 MG/DL (74-106) H 81 MG/DL (74-106) Calcium Level 9.2 MG/DL (8.5-10.1) 8.8 MG/DL (8.5-10.1) Hepatitis B Surface Antigen Pending White Blood Count 5.1 K/UL (4.8-10.8) Red Blood Count 3.71 M/UL (4.20-5.40) L Hemoglobin 11.1 G/DL (12.0-16.0) L Hematocrit 33.9 % (37.0-47.0) L Mean Corpuscular Volume 91 FL (80-99) Mean Corpuscular Hemoglobin 30.0 PG (27.0-31.0) Mean Corpuscular Hemoglobin Concent 32.8 G/DL (32.0-36.0) Red Cell Distribution Width 12.8 % (11.6-14.8) Platelet Count 112 K/UL (150-450) L Mean Platelet Volume 8.8 FL (6.5-10.1) Neutrophils (%) (Auto) 49.6 % (45.0-75.0) Lymphocytes (%) (Auto) 32.6 % (20.0-45.0) Monocytes (%) (Auto) 10.3 % (1.0-10.0) H Eosinophils (%) (Auto) 4.6 % (0.0-3.0) H Basophils (%) (Auto) 2.8 % (0.0-2.0) H Hemoglobin A1c 5.4 % (4.3-6.0) Uric Acid 4.2 MG/DL (2.6-7.2) Phosphorus Level 3.5 MG/DL (2.5-4.9) Magnesium Level 2.7 MG/DL (1.8-2.4) H Total Bilirubin 0.5 MG/DL (0.2-1.0) Gamma Glutamyl Transpeptidase 22 U/L (5-85) Aspartate Amino Transf (AST/SGOT) 16 U/L (15-37) Alanine Aminotransferase (ALT/SGPT) 15 U/L (12-78) Alkaline Phosphatase 73 U/L (46-116) C-Reactive Protein, Quantitative 0.7 mg/dL (0.00-0.90) Pro-B-Type Natriuretic Peptide 5766 pg/mL (0-125) H Total Protein 6.6 G/DL (6.4-8.2) Albumin 3.2 G/DL (3.4-5.0) L Globulin 3.4 g/dL Albumin/Globulin Ratio 0.9 (1.0-2.7) L Triglycerides Level 60 MG/DL (30-150) Cholesterol Level 168 MG/DL (< 200) LDL Cholesterol 85 mg/dL (<100) HDL Cholesterol 62 MG/DL (40-60) H Cholesterol/HDL Ratio 2.7 (3.3-4.4) L Height (Feet): 5 Height (Inches): 5.00 Weight (Pounds): 238 Medications Current Medications Medications (Trade) Dose Ordered Sig/Jesus Route PRN Reason Start Time Stop Time Status Last Admin Dose Admin Acetaminophen (Tylenol) 650 mg Q4H PRN ORAL For Pain 06/23/20 15:15 07/23/20 15:14 Albuterol Sulfate (Proventil) 2.5 mg Q6H PRN HHN wheezing 06/23/20 15:30 06/28/20 15:29 Apixaban (Eliquis) 2.5 mg BID ORAL 06/23/20 18:00 09/21/20 17:59 06/24/20 08:32 Aspirin (ASA) 81 mg DAILY ORAL 06/24/20 09:00 08/08/20 08:59 Atorvastatin Calcium (Lipitor) 10 mg BEDTIME ORAL 06/23/20 21:00 09/21/20 20:59 06/23/20 21:59 Docusate Sodium (Colace) 100 mg THREE TIMES A DAY ORAL 06/23/20 18:00 07/23/20 17:59 06/24/20 08:32 Gabapentin (Neurontin) 100 mg BID ORAL 06/23/20 18:00 07/23/20 17:59 06/24/20 08:31 Hydralazine HCl (Apresoline) 25 mg EVERY 8 HOURS ORAL 06/23/20 22:00 09/21/20 21:59 06/23/20 21:59 Hydralazine HCl (Apresoline) 25 mg Q4H PRN ORAL bp over 160 syst 06/23/20 15:30 09/21/20 15:29 Ondansetron HCl (Zofran) 4 mg Q6H PRN IVP Nausea & Vomiting 06/23/20 20:00 07/23/20 19:59 Pantoprazole (Protonix) 40 mg EVERY 12 HOURS ORAL 06/23/20 21:00 07/23/20 20:59 06/24/20 08:32 Sevelamer Carbonate (Renvela) 800 mg THREE TIMES A DAY ORAL 06/23/20 18:00 09/21/20 17:59 06/24/20 08:31 Vancomycin HCl ([facility] pharmacy to dose) 1 ea DAILY PRN MISC Per rx protocol 06/24/20 12:45 07/24/20 12:44 Vancomycin/Sodium Chloride 275 ml @ 137.5 mls/ hr ONCE IVPB 06/24/20 14:00 06/24/20 16:00 Assessment/Plan Assessment/Plan: Abx: IV Vancomycin 06/24- Assessment: COVID19 neg x1 (06/23n rapid COVID pCR neg) -CXR: Mild pulmonary vascular prominence. No evidence of alveolar edema. No focal consolidation. Afebrile No leukocytosis Gram positive bacteremia- real vs contaminant- has hx of CONS bacteremia that was presumed to be HD line infection on 04/2020 given sepsis on presentation and was treated without removal of catheter. This time, patient is not septic Pyuria -u/a wbc tnct, nit -, leuk +3; ucx NTD Hyperkalemia, SP (due to missing HD sessions) hx of SEvere sepsis 2ry S. capitis bacteremia, persistent; 04/2020 SP Rx -likely HD line infection in the setting of sepsis -04/23 Bcx 1/4 Staph capitis ; 04/25 Bcx 1/4 Staph capitis; 04/27 Bcx Neg x4 (peripheral, HD line) -2d Echo: no vegetations seen Hx of L foot/ankle wound; no grossly infected- no OM on bone scan -04/28/20 Bone scan: No significant abnormality in the left heel to suggest osteomyelitis of the location of clinically described left heel wound. Mild bilateral abnormal uptake, as detailed above, likely reflecting degenerative changes -xray L foot/ankle: No acute findings in the left foot. -CRP 5.9, ESR 53 Dm2 HTN Asthma/COPD CVA w/ residual L side weakness s/p PPM asthma ESRD on HD (MWF) via permacath R upper chest GERD decubitus ulcer Afib Plan: -Continue empiric IV Vancomycin #1 -05/10/20 SP IV Vancomycin #18 -05/05 SP Meropenem #4 -04/29 SP Cefepime #5 -04/25 SP Ceftriaxone #3 -04/23/20 SP Cefepime x1 -f/u cx -Monitor CBC/CMP, temperatures -Bcx x2 -May need RASHAAD, permacath removal Thank you for this consultation. Will continue to follow along with you. Discussed with Kathia Henry M.D. Jun 24, 2020 13:26
--- NOTE | 2020-06-24 13:31 | NUR ---
PROMOTIONAL ADVERTISING ASSISTANT NOTE SW attempted to meet w/ pt at 12:20pm. Pt was sleeping and did not respond to this SW. SW will attempt again. Addendum: 06/24/20 at 1650 by CORIN GUTHRIE SW attempted to meet w/ pt at 4:30pm. Pt was sleeping. SW will attempt on the next day.
[2020-06-24] MEDS ORDERED: Vancomycin 1.5gm/NS Premix q24h IVPB SCH (14:00)
--- NOTE | 2020-06-24 14:04 | NUR ---
NURSE NOTES: Colace held since pt had diarrhea earlier today.
--- NOTE | 2020-06-24 14:20 | NUR ---
CASE MANAGEMENT:REVIEW BIBA FROM HOME CC; WEAKNESS PMH: CVA. ESRD ON HD M/W/F. NON AMBULATORY SI: HYPERKALEMIA. VOLUME OVERLOAD 98.4 61 12 133/55 98% ON RA K+6.6 BUN+95 CR+12.7 IS: 1L NS BOLUS URINE CX BLOOD CX CHEST XRAY : TELEMETRY STATUS DCP: FROM HOME
[2020-06-24 16:00] VITALS: BP 126/60
--- NOTE | 2020-06-24 16:13 | Nephrology Progress Note ---
Assessment/Plan Problem List: (1) ESRD (end stage renal disease) (2) Volume overload (3) Hyperkalemia (4) Bradycardia (5) Pacemaker (6) Diabetic nephropathy Assessment ESRD (end stage renal disease), missed few sessions of hemodialysis Volume overload , Hyperkalemia other conditions: -. Diabetes with diabetic nephropathy and neuropathy. -. History of CVA with left weakness. -. History of atrial fibrillation. -. History of pacemaker. Plan Patient received dialysis yesterday. Will attempt dialysis again tomorrow. Labs, medications reviewed. Continue per consultants. Subjective ROS Limited/Unobtainable: No Constitutional: Reports: malaise Objective Objective Last 24 Hour Vital Signs Date Time Temp Pulse Resp B/P (MAP) Pulse Ox O2 Delivery O2 Flow Rate FiO2 06/24/20 12:00 60 06/24/20 12:00 97.9 60 18 129/64 (85) 96 06/24/20 09:00 Room Air 06/24/20 08:00 60 06/24/20 07:55 97.9 59 18 114/45 (68) 95 06/24/20 05:36 110/38 06/24/20 04:00 60 06/24/20 04:00 97.7 59 20 110/38 (62) 96 06/24/20 00:00 97.9 60 20 121/70 (87) 96 06/24/20 00:00 60 06/23/20 21:59 152/78 06/23/20 21:00 Room Air 06/23/20 20:00 60 06/23/20 20:00 97.7 64 20 152/78 (102) 95 Intake and Output 06/23/20 06/24/20 19:00 07:00 Intake Total 1250 ml Output Total 1050 ml Balance 1250 ml -1050 ml Intake Oral 250 ml IV Total 1000 ml Output Urine Total 50 ml Hemodialysis UF 1000 ml # Voids 2 1 # Bowel Movements 3 1 Current Medications Medications (Trade) Dose Ordered Sig/Jesus Route PRN Reason Start Time Stop Time Status Last Admin Dose Admin Acetaminophen (Tylenol) 650 mg Q4H PRN ORAL For Pain 06/23/20 15:15 07/23/20 15:14 Albuterol Sulfate (Proventil) 2.5 mg Q6H PRN HHN wheezing 06/23/20 15:30 06/28/20 15:29 Apixaban (Eliquis) 2.5 mg BID ORAL 06/23/20 18:00 09/21/20 17:59 06/24/20 08:32 Aspirin (ASA) 81 mg DAILY ORAL 06/24/20 09:00 08/08/20 08:59 Atorvastatin Calcium (Lipitor) 10 mg BEDTIME ORAL 06/23/20 21:00 09/21/20 20:59 06/23/20 21:59 Docusate Sodium (Colace) 100 mg THREE TIMES A DAY ORAL 06/23/20 18:00 07/23/20 17:59 06/24/20 08:32 Gabapentin (Neurontin) 100 mg BID ORAL 06/23/20 18:00 07/23/20 17:59 06/24/20 08:31 Hydralazine HCl (Apresoline) 25 mg EVERY 8 HOURS ORAL 06/23/20 22:00 09/21/20 21:59 06/23/20 21:59 Hydralazine HCl (Apresoline) 25 mg Q4H PRN ORAL bp over 160 syst 06/23/20 15:30 09/21/20 15:29 Ondansetron HCl (Zofran) 4 mg Q6H PRN IVP Nausea & Vomiting 06/23/20 20:00 07/23/20 19:59 Pantoprazole (Protonix) 40 mg EVERY 12 HOURS ORAL 06/23/20 21:00 07/23/20 20:59 06/24/20 08:32 Sevelamer Carbonate (Renvela) 800 mg THREE TIMES A DAY ORAL 06/23/20 18:00 09/21/20 17:59 06/24/20 15:01 Vancomycin HCl ([facility] pharmacy to dose) 1 ea DAILY PRN MISC Per rx protocol 06/24/20 12:45 07/24/20 12:44 Laboratory Tests 06/24/20 08:55: White Blood Count 5.1, Red Blood Count 3.71L, Hemoglobin 11.1L, Hematocrit 33.9L , Mean Corpuscular Volume 91, Mean Corpuscular Hemoglobin 30.0, Mean Corpuscular Hemoglobin Concent 32.8, Red Cell Distribution Width 12.8, Platelet Count 112L, Mean Platelet Volume 8.8, Neutrophils (%) (Auto) 49.6, Lymphocytes (%) (Auto) 32.6, Monocytes (%) (Auto) 10.3H, Eosinophils (%) (Auto) 4.6H, Basophils (%) (Auto) 2.8H, Sodium Level 136, Potassium Level 4.6, Chloride Level 97L, Carbon Dioxide Level 30, Anion Gap 9, Blood Urea Nitrogen 46H, Creatinine 7.5H, Estimat Glomerular Filtration Rate 6.4, Glucose Level 81, Hemoglobin A1c 5.4, Uric Acid 4.2, Calcium Level 8.8, Phosphorus Level 3.5, Magnesium Level 2.7H, Total Bilirubin 0.5, Gamma Glutamyl Transpeptidase 22, Aspartate Amino Transf (AST/SGOT) 16, Alanine Aminotransferase (ALT/SGPT) 15, Alkaline Phosphatase 73, C-Reactive Protein, Quantitative 0.7, Pro-B-Type Natriuretic Peptide 5766H, Total Protein 6.6, Albumin 3.2L, Globulin 3.4, Albumin/Globulin Ratio 0.9L, Triglycerides Level 60, Cholesterol Level 168, LDL Cholesterol 85, HDL C holesterol 62H, Cholesterol/HDL Ratio 2.7L Height (Feet): 5 Height (Inches): 5.00 Weight (Pounds): 238 General Appearance: no apparent distress, lethargic Cardiovascular: normal rate Respiratory/Chest: decreased breath sounds Abdomen: soft Manas Stephenson MD Jun 24, 2020 16:13
--- NOTE | 2020-06-24 17:42 | NUR ---
NURSE NOTES: Per Dr. Stephenson, VIP called re dialysis tomorrow.
--- NOTE | 2020-06-24 20:21 | NUR ---
HAND-OFF: Report given to Sana POLLOCK.
--- NOTE | 2020-06-24 20:36 | NUR ---
NURSE NOTES: Received report from VIKAS Mir. Patient is awake lying semi-patel's; resting comfortably. No signs of acute distress noted; denies pain at this time. AOx2 with periods of forgetfulness. Checked IV site; patent and flushed. No erythema, bleeding, or infiltration noted. Right upper chest permacath in place. Bed at lowest position, brakes on, siderails up x3. Call light within reach. Will continue to monitor.
--- NOTE | 2020-06-24 22:00 | NUR ---
NURSE NOTES: PATIENT TRANSFERRED FROM TELE/ROOM 210 TO ROOM 404 BED 1 VIA GURNEY, PATIENT AWAKE, ALERT/ORIENTED X2, REALITY ORIENTATION PROVIDED, REQUIRE REPETITIVE INTERVENTIONS DUE TO FORGETFULNESS, DENIES PAIN. NO SIGNS AND SYMPTOMS OF ACUTE CARDIO RESPIRATORY DISTRESS/SHORTNESS OF BREATH, DENIES CHEST PAIN. NOTED WITH RIGHT CHEST PERMA CATH, NEXT HD 06/25/20, DRESSING DRY AND INTACT, CHANGED ON 06/23. DENIES GI DISCOMFORT, EXTERNAL CATHETER INTACT, DRAINING YELLOW URINE, NO SIGNS OF HEMATURIA. SIDE RAILS UP X3/BED IN LOWEST POSITION FOR SAFETY, BED ALARM ACTIVATED. HOUR ROUNDING FOR SAFETY/NEEDS. ENCOURAGED PATIENT TO UTILIZE CALL LIGHT FOR ASSISTANCE, VERBALIZED UNDERSTANDING, CONTINUE WITH CURRENT PLAN OF CARE. NAD.
--- NOTE | 2020-06-24 22:05 | NUR ---
TRANSFER TO FLOOR: Report given to RUBY Dalton. Patient was transferred to 4E Med-Surg floor from Telemetry unit without incident. No signs of acute distress noted; denies pain at this time. Belongings list checked with patient and transferring RN. Patient taken off Tele box; tolerated well. Endorsed to receiving nurse regarding need to take wound care photos; verbalized understanding. Ruby Verduzco, patient's daughter, informed of patient's transfer. Bed at lowest position, brakes on, siderails up x3. Call light within reach.
[2020-06-25] VITALS: BP 101/60
[2020-06-25 04:00] VITALS: BP 109/51
[2020-06-25] MEDS: HydrALAZINE 25mg tab ORAL SCH ×4 (06:00→21:46)
--- NOTE | 2020-06-25 06:27 | NUR ---
NURSE NOTES: RESTED WELL, NO SIGNIFICANT CHANGE OF CONDITION NOTED THROUGHOUT THE NIGHT. SAFETY MAINTAINED. NAD.
[2020-06-25 07:11] LABS: BASOPHILS % (AUTO) 3.6 % (0.0-2.0); EOSINOPHILS % (AUTO) 5.6 % (0.0-3.0); HEMATOCRIT 36.3 % (37.0-47.0); HEMOGLOBIN 11.9 G/DL (12.0-16.0); LYMPHOCYTES % (AUTO) 33.6 % (20.0-45.0); MEAN CORPUSCULAR VOLUME 91 FL (80-99); MONOCYTES % (AUTO) 9.2 % (1.0-10.0); PLATELET COUNT 117 K/UL (150-450); RED BLOOD COUNT 3.98 M/UL (4.20-5.40); RED CELL DISTRIBUTION WIDTH 12.6 % (11.6-14.8); WHITE BLOOD COUNT 4.7 K/UL (4.8-10.8)
[2020-06-25 07:13] LABS: ALBUMIN 3.2 G/DL (3.4-5.0); ALBUMIN/GLOBULIN RATIO 0.9 (1.0-2.7); BILIRUBIN,TOTAL 0.6 MG/DL (0.2-1.0); CALCIUM 9.1 MG/DL (8.5-10.1); CREATININE 8.1 MG/DL (0.55-1.30); POTASSIUM 5.3 MMOL/L (3.5-5.1)
--- NOTE | 2020-06-25 07:35 | NUR ---
NURSE NOTES: Received report from RUBY Moreno, pt was a transfer from [facility] last night. Patient received lying in hospital bed, AAO x 4, able to make needs known, nonambulatory, bedbound, on RA in no apparent respiratory distress but has c/o of pain on the R upper chest whenever she breathes deeply at 8/10 that began this AM. Pt had LBM this Am, oliguric, incontinent x 2. Multiple skin issues reported to R thigh and L and R great toe. Pt has a R hand 22g pIV asymptomatic. Pt has R upper chest permacath, dressing clean dry and intact. Planned for HD today. Bed in lowest position, locked, and call light within reach. Will notify MD herman chest pain.
[2020-06-25 08:00] VITALS: BP 113/50
--- NOTE | 2020-06-25 08:15 | NUR ---
NURSE NOTES: Dr. Banegas notified of patient's c/o R upper chest pain when breathing deeply. Awaiting response. Will continue to f/u.
--- NOTE | 2020-06-25 08:20 | NUR ---
NURSE NOTES: Received call from Mike of [facility] confirming HD schedule today for 1100.
[2020-06-25] MEDS: Eliquis 2.5mg tablet ORAL SCH ×2 (08:25→19:21)
[2020-06-25] MEDS: Aspirin Baby 81mg ORAL SCH (08:26)
[2020-06-25] MEDS: Renvela 800mg Pkt ORAL SCH ×3 (08:26→19:21)
[2020-06-25] MEDS: Docusate 100mg cap ORAL SCH ×3 (08:43→19:21)
--- NOTE | 2020-06-25 10:52 | Nephrology Progress Note ---
Assessment/Plan Problem List: (1) ESRD (end stage renal disease) (2) Volume overload (3) Hyperkalemia (4) Bradycardia (5) Pacemaker (6) Diabetic nephropathy Assessment ESRD (end stage renal disease), missed few sessions of hemodialysis Volume overload , Hyperkalemia other conditions: -. Diabetes with diabetic nephropathy and neuropathy. -. History of CVA with left weakness. -. History of atrial fibrillation. -. History of pacemaker. Plan June 25: Clinically stable. Labs reviewed. Medication list reviewed. Due for dialysis today. Continue with same management. Patient received dialysis yesterday. Will attempt dialysis again tomorrow. Labs, medications reviewed. Continue per consultants. Subjective ROS Limited/Unobtainable: No Constitutional: Reports: malaise Objective Objective Last 24 Hour Vital Signs Date Time Temp Pulse Resp B/P (MAP) Pulse Ox O2 Delivery O2 Flow Rate FiO2 06/25/20 08:00 97.8 60 18 113/50 (71) 96 06/25/20 06:00 108/53 06/25/20 04:00 98.2 61 18 109/51 (70) 93 06/25/20 00:00 98.8 60 18 101/60 (74) 92 06/24/20 21:01 106/61 06/24/20 21:00 Room Air 06/24/20 17:29 129/64 06/24/20 16:00 60 06/24/20 16:00 96.6 59 18 126/60 (82) 96 06/24/20 12:00 60 06/24/20 12:00 97.9 60 18 129/64 (85) 96 Intake and Output 06/24/20 06/25/20 19:00 07:00 Intake Total 540 ml Output Total 75 ml Balance 465 ml Intake Oral 540 ml Output Urine Total 75 ml # Bowel Movements 2 Current Medications Medications (Trade) Dose Ordered Sig/Jesus Route PRN Reason Start Time Stop Time Status Last Admin Dose Admin Acetaminophen (Tylenol) 650 mg Q4H PRN ORAL For Pain 06/23/20 15:15 07/23/20 15:14 Albuterol Sulfate (Proventil) 2.5 mg Q6H PRN HHN wheezing 06/23/20 15:30 06/28/20 15:29 Apixaban (Eliquis) 2.5 mg BID ORAL 06/23/20 18:00 09/21/20 17:59 06/25/20 08:25 Aspirin (ASA) 81 mg DAILY ORAL 06/24/20 09:00 08/08/20 08:59 06/25/20 08:26 Atorvastatin Calcium (Lipitor) 10 mg BEDTIME ORAL 06/23/20 21:00 09/21/20 20:59 06/24/20 21:09 Docusate Sodium (Colace) 100 mg THREE TIMES A DAY ORAL 06/23/20 18:00 07/23/20 17:59 06/24/20 08:32 Gabapentin (Neurontin) 100 mg BID ORAL 06/23/20 18:00 07/23/20 17:59 06/25/20 08:25 Hydralazine HCl (Apresoline) 25 mg EVERY 8 HOURS ORAL 06/23/20 22:00 09/21/20 21:59 06/24/20 17:29 Hydralazine HCl (Apresoline) 25 mg Q4H PRN ORAL bp over 160 syst 06/23/20 15:30 09/21/20 15:29 Ondansetron HCl (Zofran) 4 mg Q6H PRN IVP Nausea & Vomiting 06/23/20 20:00 07/23/20 19:59 Pantoprazole (Protonix) 40 mg EVERY 12 HOURS ORAL 06/23/20 21:00 07/23/20 20:59 06/25/20 08:26 Sevelamer Carbonate (Renvela) 800 mg THREE TIMES A DAY ORAL 06/23/20 18:00 09/21/20 17:59 06/25/20 08:26 Vancomycin HCl ([facility] pharmacy to dose) 1 ea DAILY PRN MISC Per rx protocol 06/24/20 12:45 07/24/20 12:44 Vancomycin HCl 1 gm/Dextrose 275 ml @ 183.708 mls/hr ONCE ONCE IVPB 06/25/20 12:00 06/25/20 13:29 Laboratory Tests 06/25/20 06:00: White Blood Count 4.7L, Red Blood Count 3.98L, Hemoglobin 11.9L, Hematocrit 36.3L, Mean Corpuscular Volume 91, Mean Corpuscular Hemoglobin 29.9, Mean Corpuscular Hemoglobin Concent 32.8, Red Cell Distribution Width 12.6, Platelet Count 117L, Mean Platelet Volume 8.9, Neutrophils (%) (Auto) 48.0, Lymphocytes (%) (Auto) 33.6, Monocytes (%) (Auto) 9.2, Eosinophils (%) (Auto) 5.6H, Basophils (%) (Auto) 3.6H, Erythrocyte Sedimentation Rate 29, Sodium Level 139, Potassium Level 5.3H, Chloride Level 99, Carbon Dioxide Level 29, Anion Gap 11, Blood Urea Nitrogen 52H, Creatinine 8.1H, Estimat Glomerular Filtration Rate 5.9, Glucose Level 88, Calcium Level 9.1, Phosphorus Level 4.3, Total Bilirubin 0.6, Aspartate Amino Transf (AST/SGOT) 23, Alanine Aminotransferase (ALT/SGPT) 14, Alkaline Phosphatase 73, Troponin I [Pending], C-Reactive Protein, Quantitative 1.4H, Total Protein 6.9, Albumin 3.2L, Globulin 3.7, Al bumin/Globulin Ratio 0.9L, Random Vancomycin Level 18.7 Height (Feet): 5 Height (Inches): 5.00 Weight (Pounds): 238 General Appearance: no apparent distress Cardiovascular: normal rate Respiratory/Chest: decreased breath sounds Abdomen: soft Manas Stephenson MD Jun 25, 2020 10:52
--- NOTE | 2020-06-25 10:56 | Pulmonology Progress Note ---
Subjective ROS Limited/Unobtainable: No Interval Events: None new Constitutional: Reports: no symptoms HEENT: Repors: no symptoms Respiratory: Reports: no symptoms Cardiovascular: Reports: no symptoms Gastrointestinal/Abdominal: Reports: no symptoms Genitourinary: Reports: no symptoms Allergies: Coded Allergies: PENICILLINS (Verified Allergy, Unknown, 04/23/20) Tolerated Cefepime 04/23/20 Objective Last 24 Hour Vital Signs Date Time Temp Pulse Resp B/P (MAP) Pulse Ox O2 Delivery O2 Flow Rate FiO2 06/25/20 08:00 97.8 60 18 113/50 (71) 96 06/25/20 06:00 108/53 06/25/20 04:00 98.2 61 18 109/51 (70) 93 06/25/20 00:00 98.8 60 18 101/60 (74) 92 06/24/20 21:01 106/61 06/24/20 21:00 Room Air 06/24/20 17:29 129/64 06/24/20 16:00 60 06/24/20 16:00 96.6 59 18 126/60 (82) 96 06/24/20 12:00 60 06/24/20 12:00 97.9 60 18 129/64 (85) 96 Intake and Output 06/24/20 06/25/20 19:00 07:00 Intake Total 540 ml Output Total 75 ml Balance 465 ml Intake Oral 540 ml Output Urine Total 75 ml # Bowel Movements 2 General Appearance: WD/WN HEENT: normocephalic Respiratory: chest wall non-tender Cardiovascular: normal peripheral pulses Microbiology Date/Time Source Procedure Growth Status 06/23/20 11:05 Rectum VRE Culture - Final NO VANCOMYCIN RESISTANT ENTEROCOCCUS ... Complete 06/23/20 11:05 Rectum - Final NO CARBAPENEM-RESISTANT ENTEROBACTERI... Complete 06/23/20 10:33 Urine,Clean Catch Urine Culture - Preliminary Yeast Species Resulted 06/23/20 09:15 Nasopharynx SARS-CoV-2 RdRp Gene Assay - Final Complete 06/23/20 09:00 Blood Blood Culture - Preliminary Staphylococcus Sp Coag Neg Resulted 06/23/20 09:00 Blood Blood Culture - Preliminary Staphylococcus Sp Coag Neg Resulted Laboratory Tests 06/25/20 06:00: White Blood Count 4.7L, Red Blood Count 3.98L, Hemoglobin 11.9L, Hematocrit 36.3L, Mean Corpuscular Volume 91, Mean Corpuscular Hemoglobin 29.9, Mean Corpuscular Hemoglobin Concent 32.8, Red Cell Distribution Width 12.6, Platelet Count 117L, Mean Platelet Volume 8.9, Neutrophils (%) (Auto) 48.0, Lymphocytes (%) (Auto) 33.6, Monocytes (%) (Auto) 9.2, Eosinophils (%) (Auto) 5.6H, Basophils (%) (Auto) 3.6H, Erythrocyte Sedimentation Rate 29, Sodium Level 139, Potassium Level 5.3H, Chloride Level 99, Carbon Dioxide Level 29, Anion Gap 11, Blood Urea Nitrogen 52H, Creatinine 8.1H, Estimat Glomerular Filtration Rate 5.9, Glucose Level 88, Calcium Level 9.1, Phosphorus Level 4.3, Total Bilirubin 0.6, Aspartate Amino Transf (AST/SGOT) 23, Alanine Aminotransferase (ALT/SGPT) 14, Alkaline Phosphatase 73, Troponin I 0.003, C-Reactive Protein, Quantitative 1.4H, Total Protein 6.9, Albumin 3.2L, Globulin 3.7, Albumin/Globulin Ratio 0.9L , Random Vancomycin Level 18.7 Current Medications Medications (Trade) Dose Ordered Sig/Jesus Route PRN Reason Start Time Stop Time Status Last Admin Dose Admin Acetaminophen (Tylenol) 650 mg Q4H PRN ORAL For Pain 06/23/20 15:15 07/23/20 15:14 Albuterol Sulfate (Proventil) 2.5 mg Q6H PRN HHN wheezing 06/23/20 15:30 06/28/20 15:29 Apixaban (Eliquis) 2.5 mg BID ORAL 06/23/20 18:00 09/21/20 17:59 06/25/20 08:25 Aspirin (ASA) 81 mg DAILY ORAL 06/24/20 09:00 08/08/20 08:59 06/25/20 08:26 Atorvastatin Calcium (Lipitor) 10 mg BEDTIME ORAL 06/23/20 21:00 09/21/20 20:59 06/24/20 21:09 Docusate Sodium (Colace) 100 mg THREE TIMES A DAY ORAL 06/23/20 18:00 07/23/20 17:59 06/24/20 08:32 Gabapentin (Neurontin) 100 mg BID ORAL 06/23/20 18:00 07/23/20 17:59 06/25/20 08:25 Hydralazine HCl (Apresoline) 25 mg EVERY 8 HOURS ORAL 06/23/20 22:00 09/21/20 21:59 06/24/20 17:29 Hydralazine HCl (Apresoline) 25 mg Q4H PRN ORAL bp over 160 syst 06/23/20 15:30 09/21/20 15:29 Ondansetron HCl (Zofran) 4 mg Q6H PRN IVP Nausea & Vomiting 06/23/20 20:00 07/23/20 19:59 Pantoprazole (Protonix) 40 mg EVERY 12 HOURS ORAL 06/23/20 21:00 07/23/20 20:59 06/25/20 08:26 Sevelamer Carbonate (Renvela) 800 mg THREE TIMES A DAY ORAL 06/23/20 18:00 09/21/20 17:59 06/25/20 08:26 Vancomycin HCl ([facility] pharmacy to dose) 1 ea DAILY PRN MISC Per rx protocol 06/24/20 12:45 07/24/20 12:44 Vancomycin HCl 1 gm/Dextrose 275 ml @ 183.708 mls/hr ONCE ONCE IVPB 06/25/20 12:00 06/25/20 13:29 Assessment/Plan Assessment/Plan IMPRESSION: 1. Hyperkalemia. 2. Pulmonary edema. 3. Missed dialysis. 4. Diabetes mellitus. 5. Hypertension. 6. History of COPD. DISCUSSION: Currently saturating well on room air. Discussed with Dr. Banegas. Yajaira Tse Omar Syed MD Jun 25, 2020 10:56
--- NOTE | 2020-06-25 11:50 | Surgery Progress Note ---
Surgery Progress Note Subjective Additional Comments comfortable stable no complaints line okay hd cath evaluated Objective Last 24 Hour Vital Signs Date Time Temp Pulse Resp B/P (MAP) Pulse Ox O2 Delivery O2 Flow Rate FiO2 06/25/20 08:00 97.8 60 18 113/50 (71) 96 06/25/20 06:00 108/53 06/25/20 04:00 98.2 61 18 109/51 (70) 93 06/25/20 00:00 98.8 60 18 101/60 (74) 92 06/24/20 21:01 106/61 06/24/20 21:00 Room Air 06/24/20 17:29 129/64 06/24/20 16:00 60 06/24/20 16:00 96.6 59 18 126/60 (82) 96 06/24/20 12:00 60 06/24/20 12:00 97.9 60 18 129/64 (85) 96 I&O Intake and Output 06/24/20 06/25/20 19:00 07:00 Intake Total 540 ml Output Total 75 ml Balance 465 ml Intake Oral 540 ml Output Urine Total 75 ml # Bowel Movements 2 Dressing: saturated Wound: clean Cardiovascular: RSR Respiratory: decreased breath sounds Abdomen: soft, non-tender, present bowel sounds Extremities: edema, no tenderness, no cyanosis Laboratory Tests Test 06/25/20 06:00 White Blood Count 4.7 K/UL (4.8-10.8) L Red Blood Count 3.98 M/UL (4.20-5.40) L Hemoglobin 11.9 G/DL (12.0-16.0) L Hematocrit 36.3 % (37.0-47.0) L Mean Corpuscular Volume 91 FL (80-99) Mean Corpuscular Hemoglobin 29.9 PG (27.0-31.0) Mean Corpuscular Hemoglobin Concent 32.8 G/DL (32.0-36.0) Red Cell Distribution Width 12.6 % (11.6-14.8) Platelet Count 117 K/UL (150-450) L Mean Platelet Volume 8.9 FL (6.5-10.1) Neutrophils (%) (Auto) 48.0 % (45.0-75.0) Lymphocytes (%) (Auto) 33.6 % (20.0-45.0) Monocytes (%) (Auto) 9.2 % (1.0-10.0) Eosinophils (%) (Auto) 5.6 % (0.0-3.0) H Basophils (%) (Auto) 3.6 % (0.0-2.0) H Erythrocyte Sedimentation Rate 29 MM/HR (0-30) Sodium Level 139 MMOL/L (136-145) Potassium Level 5.3 MMOL/L (3.5-5.1) H Chloride Level 99 MMOL/L (98-107) Carbon Dioxide Level 29 MMOL/L (21-32) Anion Gap 11 mmol/L (5-15) Blood Urea Nitrogen 52 mg/dL (7-18) H Creatinine 8.1 MG/DL (0.55-1.30) H Estimat Glomerular Filtration Rate 5.9 mL/min (>60) Glucose Level 88 MG/DL (74-106) Calcium Level 9.1 MG/DL (8.5-10.1) Phosphorus Level 4.3 MG/DL (2.5-4.9) Total Bilirubin 0.6 MG/DL (0.2-1.0) Aspartate Amino Transf (AST/SGOT) 23 U/L (15-37) Alanine Aminotransferase (ALT/SGPT) 14 U/L (12-78) Alkaline Phosphatase 73 U/L (46-116) Troponin I 0.003 ng/mL (0.000-0.056) C-Reactive Protein, Quantitative 1.4 mg/dL (0.00-0.90) H Total Protein 6.9 G/DL (6.4-8.2) Albumin 3.2 G/DL (3.4-5.0) L Globulin 3.7 g/dL Albumin/Globulin Ratio 0.9 (1.0-2.7) L Random Vancomycin Level 18.7 ug/mL Plan Problems: (1) Diabetic nephropathy (2) Cellulitis of left foot (3) Pacemaker (4) Anemia in chronic kidney disease (CKD) (5) History of CVA (cerebrovascular accident) (6) History of atrial fibrillation (7) COPD (chronic obstructive pulmonary disease) (8) Bradycardia (9) Diabetic nephropathy (10) Hypertensive kidney disease (11) Heel abrasion (12) Elevated troponin I level (13) Urinary tract infection due to Proteus (14) ESRD (end stage renal disease) (15) Volume overload (16) Hyperkalemia (17) Generalized weakness (18) Dyspnea (19) Symptomatic anemia (20) Acute on chronic renal failure (21) Anemia (22) HTN (hypertension) (23) Deep tissue injury Assessment & Plan: Pt presented on admission with Multiple Pressure injuries.Sacral DTPI noted over previously compromised area. Surrounding surgical scar. Base of Pressure Injury is indurated ,purpuric with Maroon Borders. Black discoloration with marginal erythema noted to R and L Buttocks. Linear area of hyperpigmentation noted sacral cleft. Darker skin tone without erythema or induration noted to R and L ischial t uberosities. L 1st metatarsal is black with small blood filled blister at tip of metatarsal.Web space of L 1st and L 2nd metatarsal is erythematous and macerated. Mild odor noted. Dry necrotic area noted to lateral aspect of L 5th metatarsal. Dry eschar lateral L foot (L)1cm x (W)1.5cm. Periwound is dry without erythema or fluctuance. Unstageable Pressure Injury L Heel(L)2.4cm x (W)3.5cm. Base of wound is necrotic with surrounding moist and pale skin,dry black borders. R 1st metatarsal is black. T heel is boggy, pale with dry peeling skin. Tx.Plan: Cleanse Sacral wound with Saline. Apply TheraHoney. Apply Moisture Barrier Paste Periwound. Cover with Optifoam drsg. Change every 3 days and prn. Apply Moisture Barrier Paste to R and L ischial tuberosities with each Incontinence care. wash L heel. apply betadine and cover with optifoam dressing Apply Cavilon Skin Barrier to R Heel. Cover with Optifoam drsg. Change every 7 days and prn. Reposition at least every 2hours or as tolerated. off-load heels with pillows. nutritional optimization DAILY ESTIMATED NEEDS: Needs based on ESRD on HD, wound obese 70.5kg abw 20-25 kcals/kg [id number] total kcals 1.8-2.5 IBW 56.8kg g protein/kg 102-142 g total protein Fluid per MD on HD NUTRITION DIAGNOSIS: Increased protein needs r/t renal dysfunction and wound healing as evidenced by pt w/ ESRD on HD, w/ L heel unstageable wound. 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
[2020-06-25 12:00] VITALS: BP 119/53
[2020-06-25] MEDS: Vancomycin 1gm/D5W 275ml IVPB ONE ×4 (12:00→12:29)
--- NOTE | 2020-06-25 12:56 | General Progress Note ---
Subjective Allergies: Coded Allergies: PENICILLINS (Verified Allergy, Unknown, 04/23/20) Tolerated Cefepime 04/23/20 Objective Last 24 Hour Vital Signs Date Time Temp Pulse Resp B/P (MAP) Pulse Ox O2 Delivery O2 Flow Rate FiO2 06/25/20 08:00 97.8 60 18 113/50 (71) 96 06/25/20 06:00 108/53 06/25/20 04:00 98.2 61 18 109/51 (70) 93 06/25/20 00:00 98.8 60 18 101/60 (74) 92 06/24/20 21:01 106/61 06/24/20 21:00 Room Air 06/24/20 17:29 129/64 06/24/20 16:00 60 06/24/20 16:00 96.6 59 18 126/60 (82) 96 Intake and Output 06/24/20 06/25/20 19:00 07:00 Intake Total 540 ml Output Total 75 ml Balance 465 ml Intake Oral 540 ml Output Urine Total 75 ml # Bowel Movements 2 Laboratory Tests 06/25/20 06:00: White Blood Count 4.7L, Red Blood Count 3.98L, Hemoglobin 11.9L, Hematocrit 36.3L, Mean Corpuscular Volume 91, Mean Corpuscular Hemoglobin 29.9, Mean Corpuscular Hemoglobin Concent 32.8, Red Cell Distribution Width 12.6, Platelet Count 117L, Mean Platelet Volume 8.9, Neutrophils (%) (Auto) 48.0, Lymphocytes (%) (Auto) 33.6, Monocytes (%) (Auto) 9.2, Eosinophils (%) (Auto) 5.6H, Basophils (%) (Auto) 3.6H, Erythrocyte Sedimentation Rate 29, Sodium Level 139, Potassium Level 5.3H, Chloride Level 99, Carbon Dioxide Level 29, Anion Gap 11, Blood Urea Nitrogen 52H, Creatinine 8.1H, Estimat Glomerular Filtration Rate 5.9, Glucose Level 88, Calcium Level 9.1, Phosphorus Level 4.3, Total Bilirubin 0.6, Aspartate Amino Transf (AST/SGOT) 23, Alanine Aminotransferase (ALT/SGPT) 14, Alkaline Phosphatase 73, Troponin I 0.003, C-Reactive Protein, Quantitative 1.4H, Total Protein 6.9, Albumin 3.2L, Globulin 3.7, Albumin/Globulin Ratio 0.9L , Random Vancomycin Level 18.7 Height (Feet): 5 Height (Inches): 5.00 Weight (Pounds): 238 Assessment/Plan Assessment/Plan: S: I am ok O: seems comfortable, no sob or cp PHYSICAL EXAMINATION: . HEAD AND NECK: Atraumatic and normocephalic. CHEST: Clear to auscultation. HEART: S1, S2. Regular rate and rhythm. Bradycardic. MUSCULOSKELETAL: No gross lateralized motor deficit, paraparesis. stage 3 decubitus wound in calcaneal region.NEUROLOGIC: The patient is awake and alert x 2. LABORATORY AND DIAGNOSTIC DATA: Labs dated 06/25/20 reviewed Meds: reviwed and reconciled in chart ASSESSMENT: 1. hyperKalemia and Missed HD sessions 2. Decubitus wound, enlarging and infected. 3. End-stage renal disease, on temporary PermCath hemodialysis access. 2. Paroxysmal atrial fibrillation, rate is stable. 3. Diabetes type 2. 4. Hypertension. 5. Hyperlipidemia. 6. CVA-history. 7. Dementia. 8. Gastrointestinal and deep vein thrombosis prophylaxes. 9. Pain management Plan: HD- per Nephrology Nephrol-Critical care and vascular services consulted. Agree with Telemetry admission consult SW to discuss options to avoid future delays in outpatient HD Empirical abx, followup with blood cultures, per Danie Adan MD Jun 25, 2020 12:56
--- NOTE | 2020-06-25 13:09 | NUR ---
CASE MANAGEMENT:REVIEW SI;HYPERKALEMIA. ESRD on HD. DM. 98.8 61 18 101/60 92% ON RA WBC 4.7 K+ 5.3 BUN 51 CR 8.1 CRP 1.4 IS;VANCOMYCIN IV ONCE ASA PO QD PROTONIX PO Q12 ELIQUIS PO BID MED SURG STATUS DCP;FROM HOME PLAN; INPATIENT HD TODAY
--- NOTE | 2020-06-25 13:09 | Cardiology Report ---
APPROVED REPORT EXAM: Two-dimensional and M-mode echocardiogram with Doppler and color Doppler. INDICATION VEGITATION M-Mode DIMENSIONS IVSd1.7 (0.7-1.1cm)Left Atrium (MM)4.5 (1.6-4.0cm) LVDd5.0 (3.5-5.6cm)Aortic Root3.7 (2.0-3.7cm) PWd1.5 (0.7-1.1cm)Aortic Cusp Exc.1.9 (1.5-2.0cm) IVSs1.5 cm LVDs1.5 (2.5-4.0cm) PWs3.6 cm <Conclusion> Technically difficult study due to pts body habitus. Normal left ventricular chamber size, systolic function and wall motion to extent visualized. Left ventricular ejection fraction estimated to be 55%. Mild left ventricular hypertrophy by 2-D. No evidence of pericardial fat or effusion. Mild left atrial enlargement. Right cardiac chamber sizes are within normal limits. Calcification of aortic valve with adequate cusp excursion. Moderate thickened mitral valve leaflets with normal excursion. Mitral annulus and aortic root calcification. Pulmonic valve not well visualized. Normal tricuspid valve structure. IVC measured at size 2.2 cm without physiologic collapse, suggestive of increased RA pressure. A color flow and spectral Doppler study was performed and revealed: No aortic regurgitation. Trace mitral regurgitation. Mitral inflow velocities indicates possible pseudo normalization pattern implying moderately elevated left atrial pressure (Grade II ). Trace tricuspid regurgitation. Tricuspid systolic velocities suggests peak right ventricular systolic pressure of 21 mmHg. Trace pulmonic regurgitation present.
--- NOTE | 2020-06-25 15:03 | NUR ---
[employer] NOTE SW met w/ pt and discussed the importance of outpatient dialysis and barriers of missed dialysis in the past. Pt reports it was a transportation issue that her daughter may have more information. Pt provided verbal consent to speak to her daughter, Ruby Verduzco [phone]. SW spoke w/ Ruby Verduzco stating there is an issue w/ [employer] insurance and she will have hearing soon. Ruby is working on getting her [employer] insurance back. The case was discussed w/ BETHANY Moreno.
[2020-06-25 16:00] VITALS: BP 121/62
--- NOTE | 2020-06-25 16:55 | Diagnostic Imaging Report ---
BILATERAL UPPER EXTREMITY VENOUS DOPPLER STUDY, BILATERAL UPPER EXTREMITY ARTERIAL DOPPLER STUDY, AND BILATERAL UPPER EXTREMITY VEIN MAPPING Indication: Vascular mapping for access Technique: Grayscale and duplex Doppler imaging of the veins in both upper extremities performed in real time utilizing compression and augmentation, as well as Doppler interrogation of the upper extremity arteries and measurements obtained of superficial veins. Comparison: None Findings: There is no evidence of thrombosis in the deep veins of both upper extremities. The following measurements were obtained of the right upper extremity superficial veins: * Basilic vein upper arm: 2.9 mm, approximately 20 mm from the skin. * Basilic vein forearm: 1.6 mm, approximately 10 mm from the skin * Cephalic vein is not visualized. The following measurements were obtained of the left upper extremity superficial veins: * Left cephalic vein upper arm: 1.7 mm less than 10 mm from the skin The patient is status post brachiobasilic arterial venous fistula creation, which is patent. Arterial anastomosis appears widely patent. There is an indwelling stent in the left proximal basilic vein near the inflow to the axillary vein. Right axillary, subclavian, and brachial arteries demonstrate normal triphasic were performed and normal velocities. Right brachial artery is mildly calcified. The right radial artery is patent and demonstrates normal triphasic waveforms. The right ulnar artery is patent and demonstrates normal triphasic waveforms. Left axillary, subclavian, and brachial arteries demonstrate normal triphasic were performed and normal velocities. The left radial artery is patent and demonstrates normal triphasic waveforms. The left ulnar artery is patent and demonstrates normal triphasic waveforms. IMPRESSION: 1. No evidence of deep venous thrombosis involving the upper extremities. 2. Status post left brachiobasilic arteriovenous fistula creation, widely patent, with indwelling stent in the proximal basilic vein near the axillary inflow. 3. Superficial venous measurements as above.
--- NOTE | 2020-06-25 17:11 | Infectious Diseases Prog Note ---
Assessment/Plan Assessment: COVID19 neg x1 (06/23n rapid COVID pCR neg) -CXR: Mild pulmonary vascular prominence. No evidence of alveolar edema. No focal consolidation. Afebrile No leukocytosis Gram positive bacteremia- real vs contaminant- has hx of CONS bacteremia that was presumed to be HD line infection on 04/2020 given sepsis on presentation and was treated without removal of catheter. This time, patient is not septic --06/23 Bcx 2/4 GPC clusters; 06/24 Bcx p --2d echo: no vegetations seen Pyuria -u/a wbc tnct, nit -, leuk +3; ucx NTD Hyperkalemia, SP (due to missing HD sessions) hx of SEvere sepsis 2ry S. capitis bacteremia, persistent; 04/2020 SP Rx -likely HD line infection in the setting of sepsis -04/23 Bcx 1/4 Staph capitis ; 04/25 Bcx 1/4 Staph capitis; 04/27 Bcx Neg x4 (peripheral, HD line) -2d Echo: no vegetations seen Hx of L foot/ankle wound; no grossly infected- no OM on bone scan -04/28/20 Bone scan: No significant abnormality in the left heel to suggest osteomyelitis of the location of clinically described left heel wound. Mild bilateral abnormal uptake, as detailed above, likely reflecting degenerative changes -xray L foot/ankle: No acute findings in the left foot. 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 Will continue to follow along with you. Discussed with RN. Subjective Allergies: Coded Allergies: PENICILLINS (Verified Allergy, Unknown, 04/23/20) Tolerated Cefepime 04/23/20 Objective Last 24 Hour Vital Signs Date Time Temp Pulse Resp B/P (MAP) Pulse Ox O2 Delivery O2 Flow Rate FiO2 06/25/20 16:00 97.6 101 19 121/62 (81) 98 06/25/20 12:00 98.8 63 18 119/53 (75) 98 06/25/20 09:00 Room Air 06/25/20 08:00 97.8 60 18 113/50 (71) 96 06/25/20 06:00 108/53 06/25/20 04:00 98.2 61 18 109/51 (70) 93 06/25/20 00:00 98.8 60 18 101/60 (74) 92 06/24/20 21:01 106/61 06/24/20 21:00 Room Air 06/24/20 17:29 129/64 Height (Feet): 5 Height (Inches): 5.00 Weight (Pounds): 238 HEENT: Unremarkable. LUNGS: Decreased breath sounds bilaterally. ABDOMEN: Soft. EXTREMITIES: There is no edema. Microbiology Date/Time Source Procedure Growth Status 06/23/20 11:05 Rectum VRE Culture - Final NO VANCOMYCIN RESISTANT ENTEROCOCCUS ... Complete 06/23/20 11:05 Rectum - Final NO CARBAPENEM-RESISTANT ENTEROBACTERI... Complete 06/23/20 10:33 Urine,Clean Catch Urine Culture - Preliminary Yeast Species Resulted 06/23/20 09:15 Nasopharynx SARS-CoV-2 RdRp Gene Assay - Final Complete 06/23/20 09:00 Blood Blood Culture - Preliminary Staphylococcus Sp Coag Neg Resulted 06/23/20 09:00 Blood Blood Culture - Preliminary Staphylococcus Sp Coag Neg Resulted Laboratory Tests Test 06/25/20 06:00 White Blood Count 4.7 K/UL (4.8-10.8) L Red Blood Count 3.98 M/UL (4.20-5.40) L Hemoglobin 11.9 G/DL (12.0-16.0) L Hematocrit 36.3 % (37.0-47.0) L Mean Corpuscular Volume 91 FL (80-99) Mean Corpuscular Hemoglobin 29.9 PG (27.0-31.0) Mean Corpuscular Hemoglobin Concent 32.8 G/DL (32.0-36.0) Red Cell Distribution Width 12.6 % (11.6-14.8) Platelet Count 117 K/UL (150-450) L Mean Platelet Volume 8.9 FL (6.5-10.1) Neutrophils (%) (Auto) 48.0 % (45.0-75.0) Lymphocytes (%) (Auto) 33.6 % (20.0-45.0) Monocytes (%) (Auto) 9.2 % (1.0-10.0) Eosinophils (%) (Auto) 5.6 % (0.0-3.0) H Basophils (%) (Auto) 3.6 % (0.0-2.0) H Erythrocyte Sedimentation Rate 29 MM/HR (0-30) Sodium Level 139 MMOL/L (136-145) Potassium Level 5.3 MMOL/L (3.5-5.1) H Chloride Level 99 MMOL/L (98-107) Carbon Dioxide Level 29 MMOL/L (21-32) Anion Gap 11 mmol/L (5-15) Blood Urea Nitrogen 52 mg/dL (7-18) H Creatinine 8.1 MG/DL (0.55-1.30) H Estimat Glomerular Filtration Rate 5.9 mL/min (>60) Glucose Level 88 MG/DL (74-106) Calcium Level 9.1 MG/DL (8.5-10.1) Phosphorus Level 4.3 MG/DL (2.5-4.9) Total Bilirubin 0.6 MG/DL (0.2-1.0) Aspartate Amino Transf (AST/SGOT) 23 U/L (15-37) Alanine Aminotransferase (ALT/SGPT) 14 U/L (12-78) Alkaline Phosphatase 73 U/L (46-116) Troponin I 0.003 ng/mL (0.000-0.056) C-Reactive Protein, Quantitative 1.4 mg/dL (0.00-0.90) H Total Protein 6.9 G/DL (6.4-8.2) Albumin 3.2 G/DL (3.4-5.0) L Globulin 3.7 g/dL Albumin/Globulin Ratio 0.9 (1.0-2.7) L Random Vancomycin Level 18.7 ug/mL Current Medications Medications (Trade) Dose Ordered Sig/Jesus Route PRN Reason Start Time Stop Time Status Last Admin Dose Admin Acetaminophen (Tylenol) 650 mg Q4H PRN ORAL For Pain 06/23/20 15:15 07/23/20 15:14 Albuterol Sulfate (Proventil) 2.5 mg Q6H PRN HHN wheezing 06/23/20 15:30 06/28/20 15:29 Apixaban (Eliquis) 2.5 mg BID ORAL 06/23/20 18:00 09/21/20 17:59 06/25/20 08:25 Aspirin (ASA) 81 mg DAILY ORAL 06/24/20 09:00 08/08/20 08:59 06/25/20 08:26 Atorvastatin Calcium (Lipitor) 10 mg BEDTIME ORAL 06/23/20 21:00 09/21/20 20:59 06/24/20 21:09 Docusate Sodium (Colace) 100 mg THREE TIMES A DAY ORAL 06/23/20 18:00 07/23/20 17:59 06/25/20 12:29 Gabapentin (Neurontin) 100 mg BID ORAL 06/23/20 18:00 07/23/20 17:59 06/25/20 08:25 Hydralazine HCl (Apresoline) 25 mg EVERY 8 HOURS ORAL 06/23/20 22:00 09/21/20 21:59 06/24/20 17:29 Hydralazine HCl (Apresoline) 25 mg Q4H PRN ORAL bp over 160 syst 06/23/20 15:30 09/21/20 15:29 Ondansetron HCl (Zofran) 4 mg Q6H PRN IVP Nausea & Vomiting 06/23/20 20:00 07/23/20 19:59 Pantoprazole (Protonix) 40 mg EVERY 12 HOURS ORAL 06/23/20 21:00 07/23/20 20:59 06/25/20 08:26 Sevelamer Carbonate (Renvela) 800 mg THREE TIMES A DAY ORAL 06/23/20 18:00 09/21/20 17:59 06/25/20 12:29 Vancomycin HCl ([facility] pharmacy to dose) 1 ea DAILY PRN MISC Per rx protocol 06/24/20 12:45 07/24/20 12:44 Kathia Lei M.D. Jun 25, 2020 17:11
--- NOTE | 2020-06-25 19:24 | NUR ---
NURSE HAND-OFF: Important Events on Shift: HD today 1L out, reports of CP, MD notified orders received, Troponin negative, EKG done, Cardio notified, Patient Status: stable Diet: renal Pending Orders: n/a Pending Results/Labs: n/a Pending MD notification: n/a Latest Vital Signs: Temperature 97.6 , Pulse 101 , B/P 121 /62 , Respiratory Rate 19 , O2 SAT 98 , Room Air, O2 Flow Rate . Vital Sign Comment: monitor pain Latest Srivastava Fall Score: 30 Fall Risk: Medium Risk Safety Measures: Call light Within Reach, Bed Alarm Zone 1, Side Rails Side Rails x2, Bed position Low and Locked. Fall Precautions: Yellow Socks Yellow Gown Door Sign Patient Fall Education Report given to RUBY Moreno. Endorsed POC.
[2020-06-25 20:00] VITALS: BP 125/56
[2020-06-25] MEDS ORDERED: Vancomycin 1gm/D5W 275ml IVPB ONE ×2 (22:00)
--- NOTE | 2020-06-25 22:13 | General Progress Note ---
Progress Note Progress Note Patient seen and examined ESRD on HD via right chest permcath Hx of left arm av shunt malfunctioning Left chest pacemaker Morbid obesity Hx of CVA non ambulatory with dementia Severe calcific PAD with left foot decub ulcer Rec Abx per ID Arm leg duplex Right arm av shunt placement once cleared by ID--can be performed as outpatient Off load legs with decub & DVT precautions Podiatry eval and foot wound care d/w patient nurse David Feng MD Jun 25, 2020 22:13
[2020-06-26] VITALS (7 sets, daily range): BP systolic 114–137; BP diastolic 51–71
[2020-06-26] MEDS: HydrALAZINE 25mg tab ORAL SCH ×3 (05:26→20:52)
[2020-06-26 05:36] LABS: HEMATOCRIT 29.4 % (37.0-47.0); HEMOGLOBIN 9.8 G/DL (12.0-16.0); MEAN CORPUSCULAR VOLUME 91 FL (80-99); PLATELET COUNT 90 K/UL (150-450); RED BLOOD COUNT 3.25 M/UL (4.20-5.40); RED CELL DISTRIBUTION WIDTH 12.5 % (11.6-14.8); WHITE BLOOD COUNT 4.3 K/UL (4.8-10.8)
[2020-06-26 06:05] LABS: ALBUMIN 2.7 G/DL (3.4-5.0); ALBUMIN/GLOBULIN RATIO 0.8 (1.0-2.7); BILIRUBIN,TOTAL 0.4 MG/DL (0.2-1.0); CALCIUM 8.1 MG/DL (8.5-10.1); CREATININE 5.1 MG/DL (0.55-1.30); PHOSPHORUS 3.3 MG/DL (2.5-4.9); POTASSIUM 3.7 MMOL/L (3.5-5.1)
--- NOTE | 2020-06-26 07:38 | NUR ---
NURSE HAND-OFF: Important Events on Shift:[HD 06/25, 1L REMOVED] Patient Status: [STABLE, AFEBRILE] Diet: [RENAL, NO CHICKEN] Pending Orders: [AML] Pending Results/Labs:[] Pending MD notification:[N/A] Latest Vital Signs: Temperature 98.8 , Pulse 60 , B/P 98 /68 , Respiratory Rate 18 , O2 SAT 97 , Room Air, O2 Flow Rate . Vital Sign Comment: STABLE, AFEBRILE] Latest Srivastava Fall Score: 30 Fall Risk: Medium Risk Safety Measures: Call light Within Reach, Bed Alarm Zone 1, Side Rails Side Rails x2, Bed position Low and Locked. Fall Precautions: Yellow Socks Yellow Gown Door Sign Patient Fall Education Report given to [VIKAS VAZQUEZ].
--- NOTE | 2020-06-26 08:00 | NUR ---
NURSE NOTES: Patient awake and alert and oriented,respirations unlabored .Noted patient with Right chest Dialysis Perma Cath in place. Dressing clean and Dry.patient sitting up in bed and eating breakfast.Bed alarm on,call light within reach.
[2020-06-26] MEDS: Renvela 800mg Pkt ORAL SCH ×3 (09:00→18:00)
[2020-06-26] MEDS: Docusate 100mg cap ORAL SCH ×3 (09:19→19:08)
--- NOTE | 2020-06-26 09:40 | NUR ---
NURSE NOTES: DR Setphenson aware of patient platelet of 90 k/UL,Order to continue medication Eliquis and aspirin as ordered.
[2020-06-26] MEDS: Eliquis 2.5mg tablet ORAL SCH ×2 (09:43→19:08)
[2020-06-26] MEDS: Aspirin Baby 81mg ORAL SCH (09:45)
--- NOTE | 2020-06-26 10:22 | Diagnostic Imaging Report ---
EXAM: US Duplex Bilateral Lower Extremities Veins CLINICAL HISTORY: DVT TECHNIQUE: Real-time duplex ultrasound scan of the bilateral lower extremity veins integrating B-mode two-dimensional vascular structure, Doppler spectral analysis, color flow Doppler imaging and compression. COMPARISON: Lower extremity venous Doppler ultrasound on 04/30/2020 FINDINGS: Right deep veins: Unremarkable. No DVT in the right common femoral, femoral, proximal deep femoral or popliteal veins. The veins demonstrate normal color flow, are normally compressible, with normal phasic flow and/or augmentation response. Right superficial veins: Unremarkable. No thrombus in the visualized right great saphenous vein. Left deep veins: Unremarkable. No DVT in the left common femoral, femoral, proximal deep femoral or popliteal veins. The veins demonstrate normal color flow, are normally compressible, with normal phasic flow and/or augmentation response. Left superficial veins: Unremarkable. No thrombus in the visualized left great saphenous vein. Soft tissues: No acute findings. No popliteal cyst. IMPRESSION: No deep venous thrombosis identified in either lower extremity.
--- NOTE | 2020-06-26 10:39 | Consultation ---
History of Present Illness General Date patient seen: Jun 26, 2020 Time patient seen: 10:32 Chief Complaint: Generalized Weakness Present Illness HPI [employer] FOR [employer]OL[employer]IE 69 y/o F with hx of Dm2, HTN, Asthma/COPD, GERD, decubitus ulcer, Afib, CVA 10 y rs ago w/ residual L side weakness, s/p PPM, asthma, ESRD on HD (MWF) via permacath R upper chest presented to ED on 06/23 due to missing HD for 1 week due to problems with transportation; reported generalized weakness. Allergies: Coded Allergies: PENICILLINS (Verified Allergy, Unknown, 04/23/20) Tolerated Cefepime 04/23/20 Medication History Scheduled Amino Acids/Protein Hydrolys (Pro-Stat Liquid), 30 ML ORAL TWICE A DAY, (Reported) Apixaban (Eliquis), 2.5 MG ORAL BID Aspirin* (Aspirin*), 81 MG ORAL DAILY Atorvastatin Calcium* (Atorvastatin Calcium*), 10 MG ORAL BEDTIME, (Reported) Cholecalciferol (Vitamin D3) (Vitamin D-400*), 400 UNITS ORAL DAILY, (Reported) Docusate Sodium* (Docusate Sodium*), 100 MG ORAL TWICE A DAY, (Reported) Ferrous Sulfate* (Ferrous Sulfate*), 325 MG ORAL DAILY, (Reported) Gabapentin* (Gabapentin*), 100 MG ORAL Q12HR, (Reported) Gabapentin* (Gabapentin*), 300 MG ORAL THREE TIMES A DAY, (Reported) Hydralazine Hcl* (Hydralazine Hcl*), 25 MG ORAL EVERY 8 HOURS, (Reported) Sevelamer Carbonate* (Renvela*), 800 MG ORAL THREE TIMES A DAY, (Reported) Vitamin B Complex (Vitamin B Complex), 1 EACH PO DAILY, (Reported) [Nephro Aide], 1 TAB PO DAILY, (Reported) Scheduled PRN Acetaminophen* (Acetaminophen 325MG Tablet*), 650 MG ORAL Q4H PRN for For Pain, (Reported) Albuterol Sulfate* (Albuterol Sulfate Hhn*), 3 ML INH Q6H PRN for wheezing, (Reported) Bisacodyl (Bisacodyl), 10 MG RC EVERY DAY PRN for Constipation, (Reported) Hydrocodone Bit/Acetaminophen 5-325* ([place] 5-325*), 1 TAB ORAL Q4H PRN for For Pain, (Reported) Na Phos,M-B/Na Phos,Di-Ba* (Fleet Enema*), 133 ML RECTAL DAILY PRN for Constipation, (Reported) Miscellaneous Medications Dextran 70/Hypromellose (Artificial Tears Eye Drops*), 1 DROP BOTH EYES, (Repo rted) Discontinued Medications [[facility] pharmacy to dose], 1 EA MISC DAILY PRN Discontinued Reason: Medication dose changed [[facility] pharmacy to dose], 1 EA MISC DAILY PRN Discontinued Reason: MD discontinued med Patient History Healthcare decision maker Resuscitation status Advanced Directive on File Review of Systems Constitutional: Reports: no symptoms Eye: Reports: no symptoms ENT: Reports: no symptoms Respiratory: Reports: no symptoms Cardiovascular: Reports: no symptoms Gastrointestinal: Reports: no symptoms Genitourinary: Reports: no symptoms Musculoskeletal: Reports: no symptoms Skin: Reports: no symptoms Psychiatric: Reports: no symptoms Hematologic/Lymphatic: Reports: no symptoms Physical Exam General Appearance: no apparent distress, alert Lines, tubes and drains: peripheral HEENT: normocephalic, atraumatic, anicteric, mucous membranes moist Neck: non-tender, normal alignment, supple Respiratory/Chest: chest wall non-tender, lungs clear, normal breath sounds Cardiovascular/Chest: normal peripheral pulses, normal rate, regular rhythm Abdomen: normal bowel sounds, non tender, soft Extremities: normal range of motion, non-tender, normal inspection, no calf tenderness, normal capillary refill, non-pitting Skin Exam: normal pigmentation, warm/dry Neurologic: hospice case manager II-XII grossly normal Last 24 Hour Vital Signs Date Time Temp Pulse Resp B/P (MAP) Pulse Ox O2 Delivery O2 Flow Rate FiO2 06/26/20 05:26 98/68 06/26/20 04:00 98.8 60 18 114/51 (72) 97 06/26/20 00:00 98.4 61 18 137/71 (93) 97 06/25/20 21:46 107/56 06/25/20 21:00 Room Air 06/25/20 20:00 98.1 60 18 125/56 (79) 96 06/25/20 16:00 97.6 101 19 121/62 (81) 98 06/25/20 12:00 98.8 63 18 119/53 (75) 98 Intake and Output 06/25/20 06/26/20 19:00 07:00 Intake Total 303.708 ml Output Total 1000 ml Balance -1000 ml 303.708 ml Intake Oral 120 ml IV Total 183.708 ml Hemodialysis UF 1000 ml # Bowel Movements 1 Laboratory Tests Test 06/26/20 04:25 White Blood Count 4.3 K/UL (4.8-10.8) L Red Blood Count 3.25 M/UL (4.20-5.40) L Hemoglobin 9.8 G/DL (12.0-16.0) L Hematocrit 29.4 % (37.0-47.0) L Mean Corpuscular Volume 91 FL (80-99) Mean Corpuscular Hemoglobin 30.1 PG (27.0-31.0) Mean Corpuscular Hemoglobin Concent 33.2 G/DL (32.0-36.0) Red Cell Distribution Width 12.5 % (11.6-14.8) Platelet Count 90 K/UL (150-450) L Mean Platelet Volume 8.3 FL (6.5-10.1) Neutrophils (%) (Auto) % (45.0-75.0) Lymphocytes (%) (Auto) % (20.0-45.0) Monocytes (%) (Auto) % (1.0-10.0) Eosinophils (%) (Auto) % (0.0-3.0) Basophils (%) (Auto) % (0.0-2.0) Differential Total Cells Counted 100 Neutrophils % (Manual) 52 % (45-75) Lymphocytes % (Manual) 34 % (20-45) Monocytes % (Manual) 6 % (1-10) Eosinophils % (Manual) 7 % (0-3) H Basophils % (Manual) 1 % (0-2) Band Neutrophils 0 % (0-8) Platelet Estimate Decreased L Platelet Morphology Normal Red Blood Cell Morphology Normal Sodium Level 131 MMOL/L (136-145) L Potassium Level 3.7 MMOL/L (3.5-5.1) Chloride Level 97 MMOL/L (98-107) L Carbon Dioxide Level 24 MMOL/L (21-32) Anion Gap 10 mmol/L (5-15) Blood Urea Nitrogen 23 mg/dL (7-18) H Creatinine 5.1 MG/DL (0.55-1.30) H Estimat Glomerular Filtration Rate 10.1 mL/min (>60) Glucose Level 120 MG/DL (74-106) H Calcium Level 8.1 MG/DL (8.5-10.1) L Phosphorus Level 3.3 MG/DL (2.5-4.9) Total Bilirubin 0.4 MG/DL (0.2-1.0) Aspartate Amino Transf (AST/SGOT) 17 U/L (15-37) Alanine Aminotransferase (ALT/SGPT) 14 U/L (12-78) Alkaline Phosphatase 62 U/L (46-116) C-Reactive Protein, Quantitative 1.1 mg/dL (0.00-0.90) H Pro-B-Type Natriuretic Peptide 4688 pg/mL (0-125) H Total Protein 6.0 G/DL (6.4-8.2) L Albumin 2.7 G/DL (3.4-5.0) L Globulin 3.3 g/dL Albumin/Globulin Ratio 0.8 (1.0-2.7) L Height (Feet): 5 Height (Inches): 5.00 Weight (Pounds): 238 Medications Current Medications Medications (Trade) Dose Ordered Sig/Jesus Route PRN Reason Start Time Stop Time Status Last Admin Dose Admin Acetaminophen (Tylenol) 650 mg Q4H PRN ORAL For Pain 06/23/20 15:15 07/23/20 15:14 Albuterol Sulfate (Proventil) 2.5 mg Q6H PRN HHN wheezing 06/23/20 15:30 06/28/20 15:29 Apixaban (Eliquis) 2.5 mg BID ORAL 06/23/20 18:00 09/21/20 17:59 06/26/20 09:43 Aspirin (ASA) 81 mg DAILY ORAL 06/24/20 09:00 08/08/20 08:59 06/26/20 09:45 Atorvastatin Calcium (Lipitor) 10 mg BEDTIME ORAL 06/23/20 21:00 09/21/20 20:59 06/25/20 21:45 Docusate Sodium (Colace) 100 mg THREE TIMES A DAY ORAL 06/23/20 18:00 07/23/20 17:59 06/26/20 09:19 Gabapentin (Neurontin) 100 mg BID ORAL 06/23/20 18:00 07/23/20 17:59 06/26/20 09:20 Hydralazine HCl (Apresoline) 25 mg EVERY 8 HOURS ORAL 06/23/20 22:00 09/21/20 21:59 06/24/20 17:29 Hydralazine HCl (Apresoline) 25 mg Q4H PRN ORAL bp over 160 syst 06/23/20 15:30 09/21/20 15:29 Ondansetron HCl (Zofran) 4 mg Q6H PRN IVP Nausea & Vomiting 06/23/20 20:00 07/23/20 19:59 Pantoprazole (Protonix) 40 mg EVERY 12 HOURS ORAL 06/23/20 21:00 07/23/20 20:59 06/26/20 09:20 Sevelamer Carbonate (Renvela) 800 mg THREE TIMES A DAY ORAL 06/23/20 18:00 09/21/20 17:59 06/25/20 19:21 Vancomycin HCl ([facility] pharmacy to dose) 1 ea DAILY PRN MISC Per rx protocol 06/24/20 12:45 07/24/20 12:44 Assessment/Plan Status: stable Assessment/Plan: ASSESSMENT: ESRD on HD via right chest permcath Hx of left arm av shunt malfunctioning Left chest pacemaker Morbid obesity Hx of CVA non ambulatory with dementia Severe calcific PAD with left foot decub ulcer Hypertension Diabetes Asthma hx of CVA left weakness GERD decubitus ulcer AFIB Plan: -Continue Eliquis -Continue statin -Hydralazine for hypertension -Patient currently A paced V sensed -Echocardiogram: Normal left ventricular chamber size, systolic function and wall motion to extent visualized. Left ventricular ejection fraction estimated to be 55%. Mild left ventricular hypertrophy by 2-D. No evidence of pericardial fat or effusion. Mild left atrial enlargement. Right cardiac chamber sizes are within normal limits. Calcification of aortic valve with adequate cusp excursion. Moderate thickened mitral valve leaflets with normal excursion. Mitral annulus and aortic root calcification. Pulmonic valve not well visualized. Normal tricuspid valve structure. IVC measured at size 2.2 cm without physiologic collapse, suggestive of increased RA pressure. A color flow and spectral Doppler study was performed and revealed: No aortic regurgitation. Trace mitral regurgitation. Mitral inflow velocities indicates possible pseudo normalization pattern implying moderately elevated left atrial pressure (Grade II ). Trace tricuspid regurgitation. Tricuspid systolic velocities suggests peak right ventricular systolic pressure of 21 mmHg. Trace pulmonic regurgitation present. Benjamín Lo MD Jun 26, 2020 10:39
--- NOTE | 2020-06-26 11:55 | Pulmonology Progress Note ---
Subjective ROS Limited/Unobtainable: No Interval Events: None new Constitutional: Reports: no symptoms HEENT: Repors: no symptoms Respiratory: Reports: no symptoms Cardiovascular: Reports: no symptoms Gastrointestinal/Abdominal: Reports: no symptoms Genitourinary: Reports: no symptoms Allergies: Coded Allergies: PENICILLINS (Verified Allergy, Unknown, 04/23/20) Tolerated Cefepime 04/23/20 Objective Last 24 Hour Vital Signs Date Time Temp Pulse Resp B/P (MAP) Pulse Ox O2 Delivery O2 Flow Rate FiO2 06/26/20 09:00 Room Air 06/26/20 08:00 98.1 61 18 127/58 (81) 96 06/26/20 05:26 98/68 06/26/20 04:00 98.8 60 18 114/51 (72) 97 06/26/20 00:00 98.4 61 18 137/71 (93) 97 06/25/20 21:46 107/56 06/25/20 21:00 Room Air 06/25/20 20:00 98.1 60 18 125/56 (79) 96 06/25/20 16:00 97.6 101 19 121/62 (81) 98 06/25/20 12:00 98.8 63 18 119/53 (75) 98 Intake and Output 06/25/20 06/26/20 19:00 07:00 Intake Total 303.708 ml Output Total 1000 ml Balance -1000 ml 303.708 ml Intake Oral 120 ml IV Total 183.708 ml Hemodialysis UF 1000 ml # Bowel Movements 1 General Appearance: WD/WN HEENT: normocephalic Respiratory: chest wall non-tender Cardiovascular: normal peripheral pulses Laboratory Tests 06/26/20 04:25: White Blood Count 4.3L, Red Blood Count 3.25L, Hemoglobin 9.8L, Hematocrit 29.4L , Mean Corpuscular Volume 91, Mean Corpuscular Hemoglobin 30.1, Mean Corpuscular Hemoglobin Concent 33.2, Red Cell Distribution Width 12.5, Platelet Count 90L, Mean Platelet Volume 8.3, Neutrophils (%) (Auto) , Lymphocytes (%) (Auto) , Monocytes (%) (Auto) , Eosinophils (%) (Auto) , Basophils (%) (Auto) , Differen tial Total Cells Counted 100, Neutrophils % (Manual) 52, Lymphocytes % (Manual) 34, Monocytes % (Manual) 6, Eosinophils % (Manual) 7H, Basophils % (Manual) 1, Band Neutrophils 0, Platelet Estimate DecreasedL, Platelet Morphology Normal, Red Blood Cell Morphology Normal, Sodium Level 131L, Potassium Level 3.7, Chloride Level 97L, Carbon Dioxide Level 24, Anion Gap 10, Blood Urea Nitrogen 23H, Creatinine 5.1H, Estimat Glomerular Filtration Rate 10.1, Glucose Level 120H, Calcium Level 8.1L, Phosphorus Level 3.3, Total Bilirubin 0.4, Aspartate Amino Transf (AST/SGOT) 17, Alanine Aminotransferase (ALT/SGPT) 14, Alkaline Phosphatase 62, C-Reactive Protein, Quantitative 1.1H, Pro-B-Type Natriuretic Peptide 4688H, Total Protein 6.0L, Albumin 2.7L, Globulin 3.3, Albumin/Globulin Ratio 0.8L Current Medications Medications (Trade) Dose Ordered Sig/Jesus Route PRN Reason Start Time Stop Time Status Last Admin Dose Admin Acetaminophen (Tylenol) 650 mg Q4H PRN ORAL For Pain 06/23/20 15:15 07/23/20 15:14 Albuterol Sulfate (Proventil) 2.5 mg Q6H PRN HHN wheezing 06/23/20 15:30 06/28/20 15:29 Apixaban (Eliquis) 2.5 mg BID ORAL 06/23/20 18:00 09/21/20 17:59 06/26/20 09:43 Aspirin (ASA) 81 mg DAILY ORAL 06/24/20 09:00 08/08/20 08:59 06/26/20 09:45 Atorvastatin Calcium (Lipitor) 10 mg BEDTIME ORAL 06/23/20 21:00 09/21/20 20:59 06/25/20 21:45 Docusate Sodium (Colace) 100 mg THREE TIMES A DAY ORAL 06/23/20 18:00 07/23/20 17:59 06/26/20 09:19 Gabapentin (Neurontin) 100 mg BID ORAL 06/23/20 18:00 07/23/20 17:59 06/26/20 09:20 Hydralazine HCl (Apresoline) 25 mg EVERY 8 HOURS ORAL 06/23/20 22:00 09/21/20 21:59 06/24/20 17:29 Hydralazine HCl (Apresoline) 25 mg Q4H PRN ORAL bp over 160 syst 06/23/20 15:30 09/21/20 15:29 Ondansetron HCl (Zofran) 4 mg Q6H PRN IVP Nausea & Vomiting 06/23/20 20:00 07/23/20 19:59 Pantoprazole (Protonix) 40 mg EVERY 12 HOURS ORAL 06/23/20 21:00 07/23/20 20:59 06/26/20 09:20 Sevelamer Carbonate (Renvela) 800 mg THREE TIMES A DAY ORAL 06/23/20 18:00 09/21/20 17:59 06/25/20 19:21 Vancomycin HCl ([facility] pharmacy to dose) 1 ea DAILY PRN MISC Per rx protocol 06/24/20 12:45 07/24/20 12:44 Assessment/Plan Assessment/Plan IMPRESSION: 1. Hyperkalemia. 2. Pulmonary edema. 3. Missed dialysis. 4. Diabetes mellitus. 5. Hypertension. 6. History of COPD. DISCUSSION: Continue HD Currently saturating well on room air. Discussed with Dr. Banegas. Yajaira Tse Omar Syed MD Jun 26, 2020 11:55
[2020-06-26] MEDS ORDERED: Tubing IV Secondary IV ONE (12:10)
--- NOTE | 2020-06-26 13:45 | Infectious Diseases Prog Note ---
Assessment/Plan Assessment: COVID19 neg x1 (06/23n rapid COVID pCR neg) -CXR: Mild pulmonary vascular prominence. No evidence of alveolar edema. No focal consolidation. Afebrile No leukocytosis Gram positive bacteremia- real vs contaminant- has hx of CONS bacteremia that was presumed to be HD line infection on 04/2020 given sepsis on presentation and was treated without removal of catheter. This time, patient is not septic --06/23 Bcx 2/4 GPC clusters; 06/24 Bcx p --2d echo: no vegetations seen Pyuria -u/a wbc tnct, nit -, leuk +3; ucx NTD Hyperkalemia, SP (due to missing HD sessions) hx of SEvere sepsis 2ry S. capitis bacteremia, persistent; 04/2020 SP Rx -likely HD line infection in the setting of sepsis -04/23 Bcx 1/4 Staph capitis ; 04/25 Bcx 1/4 Staph capitis; 04/27 Bcx Neg x4 (peripheral, HD line) -2d Echo: no vegetations seen Hx of L foot/ankle wound; no grossly infected- no OM on bone scan -04/28/20 Bone scan: No significant abnormality in the left heel to suggest osteomyelitis of the location of clinically described left heel wound. Mild bilateral abnormal uptake, as detailed above, likely reflecting degenerative changes -xray L foot/ankle: No acute findings in the left foot. -CRP 5.9, ESR 53 Dm2 HTN Asthma/COPD CVA w/ residual L side weakness s/p PPM asthma ESRD on HD (MWF) via permacath R upper chest GERD decubitus ulcer Afib Plan: -Continue empiric IV Vancomycin #3 -05/10/20 SP IV Vancomycin #18 -05/05 SP Meropenem #4 -04/29 SP Cefepime #5 -04/25 SP Ceftriaxone #3 -04/23/20 SP Cefepime x1 -f/u cx -Monitor CBC/CMP, temperatures -Bcx x2 -May need RASHAAD, permacath removal Thank you for this consultation. Will continue to follow along with you. Discussed with RN. Subjective Allergies: Coded Allergies: PENICILLINS (Verified Allergy, Unknown, 04/23/20) Tolerated Cefepime 04/23/20 afebrile Objective Last 24 Hour Vital Signs Date Time Temp Pulse Resp B/P (MAP) Pulse Ox O2 Delivery O2 Flow Rate FiO2 06/26/20 09:00 Room Air 06/26/20 08:00 98.1 61 18 127/58 (81) 96 06/26/20 05:26 98/68 06/26/20 04:00 98.8 60 18 114/51 (72) 97 06/26/20 00:00 98.4 61 18 137/71 (93) 97 06/25/20 21:46 107/56 06/25/20 21:00 Room Air 06/25/20 20:00 98.1 60 18 125/56 (79) 96 06/25/20 16:00 97.6 101 19 121/62 (81) 98 Height (Feet): 5 Height (Inches): 5.00 Weight (Pounds): 238 HEENT: atraumatic Respiratory/Chest: normal breath sounds Cardiovascular: regular rhythm Laboratory Tests Test 06/26/20 04:25 White Blood Count 4.3 K/UL (4.8-10.8) L Red Blood Count 3.25 M/UL (4.20-5.40) L Hemoglobin 9.8 G/DL (12.0-16.0) L Hematocrit 29.4 % (37.0-47.0) L Mean Corpuscular Volume 91 FL (80-99) Mean Corpuscular Hemoglobin 30.1 PG (27.0-31.0) Mean Corpuscular Hemoglobin Concent 33.2 G/DL (32.0-36.0) Red Cell Distribution Width 12.5 % (11.6-14.8) Platelet Count 90 K/UL (150-450) L Mean Platelet Volume 8.3 FL (6.5-10.1) Neutrophils (%) (Auto) % (45.0-75.0) Lymphocytes (%) (Auto) % (20.0-45.0) Monocytes (%) (Auto) % (1.0-10.0) Eosinophils (%) (Auto) % (0.0-3.0) Basophils (%) (Auto) % (0.0-2.0) Differential Total Cells Counted 100 Neutrophils % (Manual) 52 % (45-75) Lymphocytes % (Manual) 34 % (20-45) Monocytes % (Manual) 6 % (1-10) Eosinophils % (Manual) 7 % (0-3) H Basophils % (Manual) 1 % (0-2) Band Neutrophils 0 % (0-8) Platelet Estimate Decreased L Platelet Morphology Normal Red Blood Cell Morphology Normal Sodium Level 131 MMOL/L (136-145) L Potassium Level 3.7 MMOL/L (3.5-5.1) Chloride Level 97 MMOL/L (98-107) L Carbon Dioxide Level 24 MMOL/L (21-32) Anion Gap 10 mmol/L (5-15) Blood Urea Nitrogen 23 mg/dL (7-18) H Creatinine 5.1 MG/DL (0.55-1.30) H Estimat Glomerular Filtration Rate 10.1 mL/min (>60) Glucose Level 120 MG/DL (74-106) H Calcium Level 8.1 MG/DL (8.5-10.1) L Phosphorus Level 3.3 MG/DL (2.5-4.9) Total Bilirubin 0.4 MG/DL (0.2-1.0) Aspartate Amino Transf (AST/SGOT) 17 U/L (15-37) Alanine Aminotransferase (ALT/SGPT) 14 U/L (12-78) Alkaline Phosphatase 62 U/L (46-116) C-Reactive Protein, Quantitative 1.1 mg/dL (0.00-0.90) H Pro-B-Type Natriuretic Peptide 4688 pg/mL (0-125) H Total Protein 6.0 G/DL (6.4-8.2) L Albumin 2.7 G/DL (3.4-5.0) L Globulin 3.3 g/dL Albumin/Globulin Ratio 0.8 (1.0-2.7) L Current Medications Medications (Trade) Dose Ordered Sig/Jesus Route PRN Reason Start Time Stop Time Status Last Admin Dose Admin Acetaminophen (Tylenol) 650 mg Q4H PRN ORAL For Pain 06/23/20 15:15 07/23/20 15:14 Albuterol Sulfate (Proventil) 2.5 mg Q6H PRN HHN wheezing 06/23/20 15:30 06/28/20 15:29 Apixaban (Eliquis) 2.5 mg BID ORAL 06/23/20 18:00 09/21/20 17:59 06/26/20 09:43 Aspirin (ASA) 81 mg DAILY ORAL 06/24/20 09:00 08/08/20 08:59 06/26/20 09:45 Atorvastatin Calcium (Lipitor) 10 mg BEDTIME ORAL 06/23/20 21:00 09/21/20 20:59 06/25/20 21:45 Docusate Sodium (Colace) 100 mg THREE TIMES A DAY ORAL 06/23/20 18:00 07/23/20 17:59 06/26/20 09:19 Gabapentin (Neurontin) 100 mg BID ORAL 06/23/20 18:00 07/23/20 17:59 06/26/20 09:20 Hydralazine HCl (Apresoline) 25 mg EVERY 8 HOURS ORAL 06/23/20 22:00 09/21/20 21:59 06/24/20 17:29 Hydralazine HCl (Apresoline) 25 mg Q4H PRN ORAL bp over 160 syst 06/23/20 15:30 09/21/20 15:29 Ondansetron HCl (Zofran) 4 mg Q6H PRN IVP Nausea & Vomiting 06/23/20 20:00 07/23/20 19:59 Pantoprazole (Protonix) 40 mg EVERY 12 HOURS ORAL 06/23/20 21:00 07/23/20 20:59 06/26/20 09:20 Sevelamer Carbonate (Renvela) 800 mg THREE TIMES A DAY ORAL 06/23/20 18:00 09/21/20 17:59 06/25/20 19:21 Vancomycin HCl (Vanco pharmacy to dose) 1 ea DAILY PRN MISC Per rx protocol 06/24/20 12:45 07/24/20 12:44 Cralo Lawrence MD Jun 26, 2020 13:45
--- NOTE | 2020-06-26 15:01 | Surgery Progress Note ---
Surgery Progress Note Subjective Additional Comments afebrile HD stable labs okay no n/v Objective Last 24 Hour Vital Signs Date Time Temp Pulse Resp B/P (MAP) Pulse Ox O2 Delivery O2 Flow Rate FiO2 06/26/20 14:23 135/84 06/26/20 09:00 Room Air 06/26/20 08:00 98.1 61 18 127/58 (81) 96 06/26/20 05:26 98/68 06/26/20 04:00 98.8 60 18 114/51 (72) 97 06/26/20 00:00 98.4 61 18 137/71 (93) 97 06/25/20 21:46 107/56 06/25/20 21:00 Room Air 06/25/20 20:00 98.1 60 18 125/56 (79) 96 06/25/20 16:00 97.6 101 19 121/62 (81) 98 I&O Intake and Output 06/25/20 06/26/20 19:00 07:00 Intake Total 303.708 ml Output Total 1000 ml Balance -1000 ml 303.708 ml Intake Oral 120 ml IV Total 183.708 ml Hemodialysis UF 1000 ml # Bowel Movements 1 Wound: other Cardiovascular: RSR Respiratory: decreased breath sounds Abdomen: soft, non-tender, present bowel sounds Extremities: no edema, no tenderness, no cyanosis Laboratory Tests Test 06/26/20 04:25 White Blood Count 4.3 K/UL (4.8-10.8) L Red Blood Count 3.25 M/UL (4.20-5.40) L Hemoglobin 9.8 G/DL (12.0-16.0) L Hematocrit 29.4 % (37.0-47.0) L Mean Corpuscular Volume 91 FL (80-99) Mean Corpuscular Hemoglobin 30.1 PG (27.0-31.0) Mean Corpuscular Hemoglobin Concent 33.2 G/DL (32.0-36.0) Red Cell Distribution Width 12.5 % (11.6-14.8) Platelet Count 90 K/UL (150-450) L Mean Platelet Volume 8.3 FL (6.5-10.1) Neutrophils (%) (Auto) % (45.0-75.0) Lymphocytes (%) (Auto) % (20.0-45.0) Monocytes (%) (Auto) % (1.0-10.0) Eosinophils (%) (Auto) % (0.0-3.0) Basophils (%) (Auto) % (0.0-2.0) Differential Total Cells Counted 100 Neutrophils % (Manual) 52 % (45-75) Lymphocytes % (Manual) 34 % (20-45) Monocytes % (Manual) 6 % (1-10) Eosinophils % (Manual) 7 % (0-3) H Basophils % (Manual) 1 % (0-2) Band Neutrophils 0 % (0-8) Platelet Estimate Decreased L Platelet Morphology Normal Red Blood Cell Morphology Normal Sodium Level 131 MMOL/L (136-145) L Potassium Level 3.7 MMOL/L (3.5-5.1) Chloride Level 97 MMOL/L (98-107) L Carbon Dioxide Level 24 MMOL/L (21-32) Anion Gap 10 mmol/L (5-15) Blood Urea Nitrogen 23 mg/dL (7-18) H Creatinine 5.1 MG/DL (0.55-1.30) H Estimat Glomerular Filtration Rate 10.1 mL/min (>60) Glucose Level 120 MG/DL (74-106) H Calcium Level 8.1 MG/DL (8.5-10.1) L Phosphorus Level 3.3 MG/DL (2.5-4.9) Total Bilirubin 0.4 MG/DL (0.2-1.0) Aspartate Amino Transf (AST/SGOT) 17 U/L (15-37) Alanine Aminotransferase (ALT/SGPT) 14 U/L (12-78) Alkaline Phosphatase 62 U/L (46-116) C-Reactive Protein, Quantitative 1.1 mg/dL (0.00-0.90) H Pro-B-Type Natriuretic Peptide 4688 pg/mL (0-125) H Total Protein 6.0 G/DL (6.4-8.2) L Albumin 2.7 G/DL (3.4-5.0) L Globulin 3.3 g/dL Albumin/Globulin Ratio 0.8 (1.0-2.7) L Plan Problems: (1) Diabetic nephropathy (2) Cellulitis of left foot (3) Pacemaker (4) Anemia in chronic kidney disease (CKD) (5) History of CVA (cerebrovascular accident) (6) History of atrial fibrillation (7) COPD (chronic obstructive pulmonary disease) (8) Bradycardia (9) Diabetic nephropathy (10) Hypertensive kidney disease (11) Heel abrasion (12) Elevated troponin I level (13) Urinary tract infection due to Proteus (14) ESRD (end stage renal disease) (15) Volume overload (16) Hyperkalemia (17) Generalized weakness (18) Dyspnea (19) Symptomatic anemia (20) Acute on chronic renal failure (21) Anemia (22) HTN (hypertension) (23) Deep tissue injury Assessment & Plan: Pt presented on admission with Multiple Pressure injuries.Sacral DTPI noted over previously compromised area. Surrounding surgical scar. Base of Pressure Injury is indurated ,purpuric with Maroon Borders. Black discoloration with marginal erythema noted to R and L Buttocks. Linear area of hyperpigmentation noted sacral cleft. Darker skin tone without erythema or induration noted to R and L ischial tuberosities. L 1st metatarsal is black with small blood filled blister at tip of metatarsal.Web space of L 1st and L 2nd metatarsal is erythematous and macerated. Mild odor noted. Dry necrotic area noted to lateral aspect of L 5th metatarsal. Dry eschar lateral L foot (L)1cm x (W)1.5cm. Periwound is dry without erythema or fluctuance. Unstageable Pressure Injury L Heel(L)2.4cm x (W)3.5cm. Base of wound is necrotic with surrounding moist and pale skin,dry black borders. R 1st metatarsal is black. T heel is boggy, pale with dry peeling skin. Tx.Plan: Cleanse Sacral wound with Saline. Apply TheraHoney. Apply Moisture Barrier Paste Periwound. Cover with Optifoam drsg. Change every 3 days and prn. Apply Moisture Barrier Paste to R and L ischial tuberosities with each Incontinence care. wash L heel. apply betadine and cover with optifoam dressing Apply Cavilon Skin Barrier to R Heel. Cover with Optifoam drsg. Change every 7 days and prn. Reposition at least every 2hours or as tolerated. off-load heels with pillows. nutritional optimization DAILY ESTIMATED NEEDS: Needs based on ESRD on HD, wound obese 70.5kg abw 20-25 kcals/kg 9089-6375 total kcals 1.8-2.5 IBW 56.8kg g protein/kg 102-142 g total protein Fluid per MD on HD NUTRITION DIAGNOSIS: Increased protein needs r/t renal dysfunction and wound healing as evidenced by pt w/ ESRD on HD, w/ L heel unstageable wound. CURRENT DIET:renal diet, no chicken PO DIET RECOMMENDATIONS: RENAL DIET/ texture per MARKETING ADMIN ADDITIONAL RECOMMENDATIONS: 1) Calibrated bedscale wt if adding P200 mattress + pump 2) Add NEPRO 1 tetra w/ meals w/ poor meal acceptance Prior adm w/ poor po intake 3) Wound care: continue SOLEDAD BID + Add Nephrovite x1 daily Vit C-> dosing per nephro 4) Monitor lytes and renal fxn Luis Alberto Cade Jun 26, 2020 15:01
--- NOTE | 2020-06-26 15:03 | Nephrology Progress Note ---
Assessment/Plan Problem List: (1) ESRD (end stage renal disease) (2) Volume overload (3) Hyperkalemia (4) Bradycardia (5) Pacemaker (6) Diabetic nephropathy Assessment ESRD (end stage renal disease), missed few sessions of hemodialysis Volume overload , Hyperkalemia other conditions: -. Diabetes with diabetic nephropathy and neuropathy. -. History of CVA with left weakness. -. History of atrial fibrillation. -. History of pacemaker. Plan June 26: Patient stable. Dialyzed yesterday. Labs reviewed. Due for dialysis tomorrow. Continue per vascular surgical recommendation. June 25: Clinically stable. Labs reviewed. Medication list reviewed. Due for dialysis today. Continue with same management. Patient received dialysis yesterday. Will attempt dialysis again tomorrow. Labs, medications reviewed. Continue per consultants. Subjective ROS Limited/Unobtainable: No Constitutional: Reports: malaise Objective Objective Last 24 Hour Vital Signs Date Time Temp Pulse Resp B/P (MAP) Pulse Ox O2 Delivery O2 Flow Rate FiO2 06/26/20 14:23 135/84 06/26/20 09:00 Room Air 06/26/20 08:00 98.1 61 18 127/58 (81) 96 06/26/20 05:26 98/68 06/26/20 04:00 98.8 60 18 114/51 (72) 97 06/26/20 00:00 98.4 61 18 137/71 (93) 97 06/25/20 21:46 107/56 06/25/20 21:00 Room Air 06/25/20 20:00 98.1 60 18 125/56 (79) 96 06/25/20 16:00 97.6 101 19 121/62 (81) 98 Intake and Output 06/25/20 06/26/20 19:00 07:00 Intake Total 303.708 ml Output Total 1000 ml Balance -1000 ml 303.708 ml Intake Oral 120 ml IV Total 183.708 ml Hemodialysis UF 1000 ml # Bowel Movements 1 Laboratory Tests 06/26/20 04:25: White Blood Count 4.3L, Red Blood Count 3.25L, Hemoglobin 9.8L, Hematocrit 29.4L , Mean Corpuscular Volume 91, Mean Corpuscular Hemoglobin 30.1, Mean Corpuscular Hemoglobin Concent 33.2, Red Cell Distribution Width 12.5, Platelet Count 90L, Mean Platelet Volume 8.3, Neutrophils (%) (Auto) , Lymphocytes (%) (Auto) , Monocytes (%) (Auto) , Eosinophils (%) (Auto) , Basophils (%) (Auto) , Differential Total Cells Counted 100, Neutrophils % (Manual) 52, Lymphocytes % (Manual) 34, Monocytes % (Manual) 6, Eosinophils % (Manual) 7H, Basophils % (Manual) 1, Band Neutrophils 0, Platelet Estimate DecreasedL, Platelet Morphology Normal, Red Blood Cell Morphology Normal, Sodium Level 131L, Potassium Level 3.7, Chloride Level 97L, Carbon Dioxide Level 24, Anion Gap 10, Blood Urea Nitrogen 23H, Creatinine 5.1H, Estimat Glomerular Filtration Rate 10.1, Glucose Level 120H, Calcium Level 8.1L, Phosphorus Level 3.3, Total Bilirubin 0.4, Aspartate Amino Transf (AST/SGOT) 17, Alanine Aminotransferase (ALT/SGPT) 14, Alkaline Phosphatase 62, C-Reactive Protein, Quantitative 1.1H, Pro-B-Type Natriuretic Peptide 4688H, Total Protein 6.0L, Albumin 2.7L, Globulin 3.3, Albumin/Globulin Ratio 0.8L Height (Feet): 5 Height (Inches): 5.00 Weight (Pounds): 238 General Appearance: no apparent distress Cardiovascular: normal rate Respiratory/Chest: decreased breath sounds Abdomen: soft Objective No change Manas Stephenson MD Jun 26, 2020 15:03
--- NOTE | 2020-06-26 15:36 | General Progress Note ---
Subjective Allergies: Coded Allergies: PENICILLINS (Verified Allergy, Unknown, 04/23/20) Tolerated Cefepime 04/23/20 Objective Last 24 Hour Vital Signs Date Time Temp Pulse Resp B/P (MAP) Pulse Ox O2 Delivery O2 Flow Rate FiO2 06/26/20 14:23 135/84 06/26/20 09:00 Room Air 06/26/20 08:00 98.1 61 18 127/58 (81) 96 06/26/20 05:26 98/68 06/26/20 04:00 98.8 60 18 114/51 (72) 97 06/26/20 00:00 98.4 61 18 137/71 (93) 97 06/25/20 21:46 107/56 06/25/20 21:00 Room Air 06/25/20 20:00 98.1 60 18 125/56 (79) 96 06/25/20 16:00 97.6 101 19 121/62 (81) 98 Intake and Output 06/25/20 06/26/20 19:00 07:00 Intake Total 303.708 ml Output Total 1000 ml Balance -1000 ml 303.708 ml Intake Oral 120 ml IV Total 183.708 ml Hemodialysis UF 1000 ml # Bowel Movements 1 Laboratory Tests 06/26/20 04:25: White Blood Count 4.3L, Red Blood Count 3.25L, Hemoglobin 9.8L, Hematocrit 29.4L , Mean Corpuscular Volume 91, Mean Corpuscular Hemoglobin 30.1, Mean Corpuscular Hemoglobin Concent 33.2, Red Cell Distribution Width 12.5, Platelet Count 90L, Mean Platelet Volume 8.3, Neutrophils (%) (Auto) , Lymphocytes (%) (Auto) , Monocytes (%) (Auto) , Eosinophils (%) (Auto) , Basophils (%) (Auto) , Differential Total Cells Counted 100, Neutrophils % (Manual) 52, Lymphocytes % (Manual) 34, Monocytes % (Manual) 6, Eosinophils % (Manual) 7H, Basophils % (Manual) 1, Band Neutrophils 0, Platelet Estimate DecreasedL, Platelet Morphology Normal, Red Blood Cell Morphology Normal, Sodium Level 131L, Potassium Level 3.7, Chloride Level 97L, Carbon Dioxide Level 24, Anion Gap 10, Blood Urea Nitrogen 23H, Creatinine 5.1H, Estimat Glomerular Filtration Rate 10.1, Glucose Level 120H, Calcium Level 8.1L, Phosphorus Level 3.3, Total Bilirubin 0.4, Aspartate Amino Transf (AST/SGOT) 17, Alanine Aminotransferase (ALT/SGPT) 14, Alkaline Phosphatase 62, C-Reactive Protein, Quantitative 1.1H, Pro-B-Type Natriuretic Peptide 4688H, Total Protein 6.0L, Albumin 2.7L, Globulin 3.3, Albumin/Globulin Ratio 0.8L Height (Feet): 5 Height (Inches): 5.00 Weight (Pounds): 238 Assessment/Plan Status: stable Assessment/Plan: S: I am ok O: seems comfortable, no sob or cp PHYSICAL EXAMINATION: . HEAD AND NECK: Atraumatic and normocephalic. CHEST: Clear to auscultation. HEART: S1, S2. Regular rate and rhythm. Bradycardic. MUSCULOSKELETAL: No gross lateralized motor deficit, paraparesis. stage 3 decubitus wound in calcaneal region.NEUROLOGIC: The patient is awake and alert x 2. LABORATORY AND DIAGNOSTIC DATA: Labs dated 06/26/20 reviewed Meds: reviwed and reconciled in chart ASSESSMENT: 1. hyperKalemia and Missed HD sessions 2. Decubitus wound, enlarging and infected. 3. End-stage renal disease, on temporary PermCath hemodialysis access. 2. Paroxysmal atrial fibrillation, rate is stable. 3. Diabetes type 2. 4. Hypertension. 5. Hyperlipidemia. 6. CVA-history. 7. Dementia. 8. Gastrointestinal and deep vein thrombosis prophylaxes. 9. Pain management Plan: HD- per Nephrology Nephrol-Critical care and vascular services consulted. Agree with Telemetry admission consult SW to discuss options to avoid future delays in outpatient HD Empirical abx, followup with blood cultures, per Danie Adan MD Jun 26, 2020 15:36
--- NOTE | 2020-06-26 19:00 | NUR ---
NURSE NOTES: patient resting,patient schedule for dialysis on 06/27.Right chest perma cath remains intact. patient had arterial and venous duplex today,charge nurse Benjamín faxed results as ordered.
--- NOTE | 2020-06-26 19:42 | NUR ---
NURSE HAND-OFF: Colette BEAN Important Events on Shift:[] Patient Status: [] Diet: [] Renal diet Pending Orders: [] Dialysis due on 06/28/20 Pending Results/Labs:[] Pending MD notification:[] Latest Vital Signs: Temperature 98.1 , Pulse 72 , B/P 120 /65 , Respiratory Rate 17 , O2 SAT 98 , Room Air, O2 Flow Rate . Vital Sign Comment: [] Latest Srivastava Fall Score: 30 Fall Risk: Medium Risk Safety Measures: Call light Within Reach, Bed Alarm Zone 1, Side Rails Side Rails x2, Bed position Low and Locked. Fall Precautions: Yellow Socks y Yellow Gown y Door Sign y Patient Fall Education Report given to [].
[2020-06-26] MEDS ORDERED: Vancomycin 1gm/D5W 275ml IVPB ONE ×2 (20:00)
--- NOTE | 2020-06-26 20:00 | NUR ---
NURSE NOTES: Patient received in bed, asleep, no acute distress at this time. Will continue with plan of care. NATHANAEL Mckeon nurse of [facility] in the unit, made aware of HD order for tomorrow.
--- NOTE | 2020-06-26 20:12 | NUR ---
NURSE NOTES: Called was placed to Nephrology for schedule Dialysis due on 06/27 20,per DR Naylor order.
--- NOTE | 2020-06-26 21:00 | NUR ---
NURSE NOTES: Noted with IV occluded and painful while flushing. Attempted to re-insert, unsuccessful. Charge nurse made aware and will attempt IV insertion.
[2020-06-26] MEDS: HYDROcodone/Acetamin 5/325 tab ORAL PRN (21:34)
--- NOTE | 2020-06-26 22:30 | NUR ---
NURSE NOTES: Patient c/o pain on her left arm and left leg. Offered tylenol but patient stated she takes norco. Dr. Banegas was called and received order for norco 5/325mg po q4hr prn. Patient was medicated. Wound pictures were done and dressings applied per orders. Tolerated well.
[2020-06-27] MEDS: HYDROcodone/Acetamin 5/325 tab ORAL PRN ×4 (01:43→21:48)
[2020-06-27 04:00] VITALS: BP_SYST 124; BP_SYST 126; BP_DIAS 47; BP_DIAS 57
[2020-06-27] MEDS: HydrALAZINE 25mg tab ORAL SCH ×3 (05:19→21:42)
--- NOTE | 2020-06-27 07:31 | NUR ---
NURSE HAND-OFF: Important Events on Shift:[new order for norco q4h prn for pain, wound dressings changed, new IV access] Patient Status: [eating, stable] Diet: [Renal] Pending Orders: [for HD today, for Art duplex of bilateral legs] Pending Results/Labs:[] Pending MD notification:[] Latest Vital Signs: Temperature 98.5 , Pulse 60 , B/P 124 /57 , Respiratory Rate 18 , O2 SAT 94 , Room Air, O2 Flow Rate . Vital Sign Comment: [stable] Latest Srivastava Fall Score: 50 Fall Risk: High Risk Safety Measures: Call light Within Reach, Bed Alarm Zone 1, Side Rails Side Rails x2, Bed position Low and Locked. Fall Precautions: Yellow Socks Yellow Gown Door Sign Patient Fall Education Report given to [Carmen BEAN].
--- NOTE | 2020-06-27 07:41 | NUR ---
NURSE NOTES: Report received from VIKAS Alvarenga. Patient observed to be awake, alert and oriented x2. With episodes of forgetfulness. Currently on room air, no s/sx of SOB/Distress, no c/o any pain or gi/gu discomfort. IV site located on RFA g18 asymptomatic, inplace and intact. For dialysis today, dialysis site R chest permacath. Patient's bed placed on low and locked, call light placed within reach and iwill continue to monitor.
[2020-06-27 08:00] VITALS: BP 110/62
[2020-06-27] MEDS: Aspirin Baby 81mg ORAL SCH (08:48)
[2020-06-27] MEDS: Docusate 100mg cap ORAL SCH ×3 (08:49→18:08)
[2020-06-27] MEDS: Eliquis 2.5mg tablet ORAL SCH ×2 (08:49→18:09)
[2020-06-27] MEDS: Renvela 800mg Pkt ORAL SCH ×2 (08:58→18:00)
--- NOTE | 2020-06-27 11:32 | Diagnostic Imaging Report ---
EXAM: US Duplex Bilateral Lower Extremities Arteries CLINICAL HISTORY: DVT TECHNIQUE: Real-time duplex ultrasound scan of the bilateral lower extremity arteries integrating B-mode two-dimensional vascular structure, Doppler spectral analysis and color flow Doppler imaging. COMPARISON: None FINDINGS: Examination is limited due to patient body habitus and pain. Right common femoral artery: Not imaged due to lack of patient cooperation. Right superficial femoral artery: Monophasic waveforms. No elevated flow velocities. Right popliteal artery: Monophasic waveforms. No elevated flow velocities. Right calf/foot arteries: Monophasic waveforms. No elevated flow velocities. Left common femoral artery: Biphasic waveforms. No elevated flow velocities. Left superficial femoral artery: Biphasic waveforms. No elevated flow velocities. Left popliteal artery: Not imaged due to patient positioning. Left calf/foot arteries: Monophasic waveforms. No elevated flow velocities. Soft tissues: Unremarkable. Other: Diffuse arterial calcifications bilaterally. IMPRESSION: 1. Examination is limited due to patient's body habitus and pain/lack of cooperation. The right common femoral artery and left popliteal artery could not be imaged. 2. No arterial occlusion. 3. Monophasic waveforms in the right lower extremity arteries suggests inflow disease. 4. Biphasic waveforms in the left common femoral artery and superficial femoral artery. Monophasic waveforms in the left calf arteries, suggesting trifurcation disease.
--- NOTE | 2020-06-27 11:34 | Pulmonology Progress Note ---
Subjective ROS Limited/Unobtainable: No Interval Events: None new Constitutional: Reports: no symptoms HEENT: Repors: no symptoms Respiratory: Reports: no symptoms Cardiovascular: Reports: no symptoms Gastrointestinal/Abdominal: Reports: no symptoms Genitourinary: Reports: no symptoms Allergies: Coded Allergies: PENICILLINS (Verified Allergy, Unknown, 04/23/20) Tolerated Cefepime 04/23/20 Objective Last 24 Hour Vital Signs Date Time Temp Pulse Resp B/P (MAP) Pulse Ox O2 Delivery O2 Flow Rate FiO2 06/27/20 09:00 Room Air 06/27/20 08:00 97.7 60 18 110/62 (78) 94 06/27/20 05:19 124/57 06/27/20 04:00 98.5 60 18 124/57 (79) 94 06/26/20 23:44 98.2 60 18 128/59 (82) 95 06/26/20 21:00 Room Air 06/26/20 20:52 114/54 06/26/20 20:00 98.0 60 18 114/54 (74) 96 06/26/20 16:00 98.1 72 17 120/65 (83) 98 06/26/20 14:23 135/84 06/26/20 12:00 98.3 70 18 128/56 (80) 97 Intake and Output 06/26/20 06/27/20 19:00 07:00 Intake Total 900 ml 515.000 ml Balance 900 ml 515.000 ml Intake Oral 240 ml IV Total 275.000 ml Other 900 ml General Appearance: WD/WN HEENT: normocephalic Respiratory: chest wall non-tender Cardiovascular: normal peripheral pulses Microbiology Date/Time Source Procedure Growth Status 06/25/20 18:20 Blood Blood Culture - Preliminary NO GROWTH AFTER 24 HOURS Resulted 06/25/20 18:10 Blood Blood Culture - Preliminary NO GROWTH AFTER 24 HOURS Resulted Current Medications Medications (Trade) Dose Ordered Sig/Jesus Route PRN Reason Start Time Stop Time Status Last Admin Dose Admin Acetaminophen (Tylenol) 650 mg Q4H PRN ORAL For Pain 06/23/20 15:15 07/23/20 15:14 Acetaminophen/ Hydrocodone Bitart ([place] 5/325) 1 tab Q4H PRN ORAL Moderate Pain (Pain Scale 4-6) 06/26/20 21:30 07/03/20 21:29 06/27/20 10:02 Albuterol Sulfate (Proventil) 2.5 mg Q6H PRN HHN wheezing 06/23/20 15:30 06/28/20 15:29 Apixaban (Eliquis) 2.5 mg BID ORAL 06/23/20 18:00 09/21/20 17:59 06/27/20 08:49 Aspirin (ASA) 81 mg DAILY ORAL 06/24/20 09:00 08/08/20 08:59 06/27/20 08:48 Atorvastatin Calcium (Lipitor) 10 mg BEDTIME ORAL 06/23/20 21:00 09/21/20 20:59 06/26/20 20:52 Docusate Sodium (Colace) 100 mg THREE TIMES A DAY ORAL 06/23/20 18:00 07/23/20 17:59 06/27/20 08:49 Gabapentin (Neurontin) 100 mg BID ORAL 06/23/20 18:00 07/23/20 17:59 06/27/20 08:49 Hydralazine HCl (Apresoline) 25 mg EVERY 8 HOURS ORAL 06/23/20 22:00 09/21/20 21:59 06/26/20 20:52 Hydralazine HCl (Apresoline) 25 mg Q4H PRN ORAL bp over 160 syst 06/23/20 15:30 09/21/20 15:29 Ondansetron HCl (Zofran) 4 mg Q6H PRN IVP Nausea & Vomiting 06/23/20 20:00 07/23/20 19:59 Pantoprazole (Protonix) 40 mg EVERY 12 HOURS ORAL 06/23/20 21:00 07/23/20 20:59 06/27/20 08:49 Sevelamer Carbonate (Renvela) 800 mg BID ORAL 06/26/20 18:00 09/21/20 17:59 Vancomycin HCl ([facility] pharmacy to dose) 1 ea DAILY PRN MISC Per rx protocol 06/24/20 12:45 07/24/20 12:44 Assessment/Plan Assessment/Plan IMPRESSION: 1. Hyperkalemia. 2. Pulmonary edema. 3. Missed dialysis. 4. Diabetes mellitus. 5. Hypertension. 6. History of COPD. DISCUSSION: Continue HD Currently saturating well on room air. Discussed with Dr. Banegas. Yajaira Tse Omar Syed [place] Jun 27, 2020 11:34
[2020-06-27 12:00] VITALS: BP 115/66
--- NOTE | 2020-06-27 12:30 | NUR ---
NURSE NOTES: Patient on dialysis with VIP. Patient observed to be awake, alert and oriented x2. HOB elevated, currently on room air, no s/sx of SOB/Distress, no c/o any pain or gi/gu discomfort. Being dialyzed through right chest permacath. Will continue to monitor closely for any adverse reactions of dialysis.
--- NOTE | 2020-06-27 12:51 | Nephrology Progress Note ---
Assessment/Plan Problem List: (1) ESRD (end stage renal disease) (2) Volume overload (3) Hyperkalemia (4) Bradycardia (5) Pacemaker (6) Diabetic nephropathy Assessment ESRD (end stage renal disease), missed few sessions of hemodialysis Volume overload , Hyperkalemia other conditions: -. Diabetes with diabetic nephropathy and neuropathy. -. History of CVA with left weakness. -. History of atrial fibrillation. -. History of pacemaker. Plan June 27: Lab reviewed. Status quo. Due for dialysis today. Stable from renal standpoint of view. Continue per PMD and consultants. June 26: Patient stable. Dialyzed yesterday. Labs reviewed. Due for dialysis tomorrow. Continue per vascular surgical recommendation. June 25: Clinically stable. Labs reviewed. Medication list reviewed. Due for dialysis today. Continue with same management. Patient received dialysis yesterday. Will attempt dialysis again tomorrow. Labs, medications reviewed. Continue per consultants. Subjective ROS Limited/Unobtainable: No Constitutional: Reports: malaise Objective Objective Last 24 Hour Vital Signs Date Time Temp Pulse Resp B/P (MAP) Pulse Ox O2 Delivery O2 Flow Rate FiO2 06/27/20 09:00 Room Air 06/27/20 08:00 97.7 60 18 110/62 (78) 94 06/27/20 05:19 124/57 06/27/20 04:00 98.5 60 18 124/57 (79) 94 06/26/20 23:44 98.2 60 18 128/59 (82) 95 06/26/20 21:00 Room Air 06/26/20 20:52 114/54 06/26/20 20:00 98.0 60 18 114/54 (74) 96 06/26/20 16:00 98.1 72 17 120/65 (83) 98 06/26/20 14:23 135/84 Intake and Output 06/26/20 06/27/20 19:00 07:00 Intake Total 900 ml 515.000 ml Balance 900 ml 515.000 ml Intake Oral 240 ml IV Total 275.000 ml Other 900 ml Height (Feet): 5 Height (Inches): 5.00 Weight (Pounds): 238 General Appearance: no apparent distress Cardiovascular: normal rate Respiratory/Chest: decreased breath sounds Abdomen: soft Objective No change Manas Stephenson MD Jun 27, 2020 12:51
--- NOTE | 2020-06-27 13:19 | Surgery Progress Note ---
Surgery Progress Note Subjective Symptoms: improved, tolerating diet, passing flatus, pain decreased Objective Last 24 Hour Vital Signs Date Time Temp Pulse Resp B/P (MAP) Pulse Ox O2 Delivery O2 Flow Rate FiO2 06/27/20 12:00 97.7 60 20 115/66 (82) 96 06/27/20 09:00 Room Air 06/27/20 08:00 97.7 60 18 110/62 (78) 94 06/27/20 05:19 124/57 06/27/20 04:00 98.5 60 18 124/57 (79) 94 06/26/20 23:44 98.2 60 18 128/59 (82) 95 06/26/20 21:00 Room Air 06/26/20 20:52 114/54 06/26/20 20:00 98.0 60 18 114/54 (74) 96 06/26/20 16:00 98.1 72 17 120/65 (83) 98 06/26/20 14:23 135/84 I&O Intake and Output 06/26/20 06/27/20 19:00 07:00 Intake Total 900 ml 515.000 ml Balance 900 ml 515.000 ml Intake Oral 240 ml IV Total 275.000 ml Other 900 ml Dressing: other Wound: other Cardiovascular: RSR Respiratory: decreased breath sounds Abdomen: soft, non-tender Extremities: no tenderness Plan Problems: (1) Diabetic nephropathy (2) Cellulitis of left foot (3) Pacemaker (4) Anemia in chronic kidney disease (CKD) (5) History of CVA (cerebrovascular accident) (6) History of atrial fibrillation (7) COPD (chronic obstructive pulmonary disease) (8) Bradycardia (9) Diabetic nephropathy (10) Hypertensive kidney disease (11) Heel abrasion (12) Elevated troponin I level (13) Urinary tract infection due to Proteus (14) ESRD (end stage renal disease) (15) Volume overload (16) Hyperkalemia (17) Generalized weakness (18) Dyspnea (19) Symptomatic anemia (20) Acute on chronic renal failure (21) Anemia (22) HTN (hypertension) (23) Deep tissue injury Assessment & Plan: Pt presented on admission with Multiple Pressure injuries.Sacral DTPI noted over previously compromised area. Surrounding surgical scar. Base of Pressure Injury is indurated ,purpuric with Maroon Borders. Black discoloration with marginal erythema noted to R and L Buttocks. Linear area of hyperpigmentation noted sacral cleft. Darker skin tone without erythema or induration noted to R and L ischial tuberosities. L 1st metatarsal is black with small blood filled blister at tip of metatarsal.Web space of L 1st and L 2nd metatarsal is erythematous and macerated. Mild odor noted. Dry necrotic area noted to lateral aspect of L 5th metatarsal. Dry eschar lateral L foot (L)1cm x (W)1.5cm. Periwound is dry without erythema or fluctuance. Unstageable Pressure Injury L Heel(L)2.4cm x (W)3.5cm. Base of wound is necrotic with surrounding moist and pale skin,dry black borders. R 1st metatarsal is black. T heel is boggy, pale with dry peeling skin. Tx.Plan: Cleanse Sacral wound with Saline. Apply TheraHoney. Apply Moisture Barrier Paste Periwound. Cover with Optifoam drsg. Change every 3 days and prn. Apply Moisture Barrier Paste to R and L ischial tuberosities with each Incontinence care. wash L heel. apply betadine and cover with optifoam dressing Apply Cavilon Skin Barrier to R Heel. Cover with Optifoam drsg. Change every 7 days and prn. Reposition at least every 2hours or as tolerated. off-load heels with pillows. nutritional optimization DAILY ESTIMATED NEEDS: Needs based on ESRD on HD, wound obese 70.5kg abw 20-25 kcals/kg 7037-0193 total kcals 1.8-2.5 IBW 56.8kg g protein/kg 102-142 g total protein Fluid per MD on HD NUTRITION DIAGNOSIS: Increased protein needs r/t renal dysfunction and wound healing as evidenced by pt w/ ESRD on HD, w/ L heel unstageable wound. CURRENT DIET:renal diet, no chicken PO DIET RECOMMENDATIONS: RENAL DIET/ texture per [employer] ADDITIONAL RECOMMENDATIONS: 1) Calibrated bedscale wt if adding P200 mattress + pump 2) Add NEPRO 1 tetra w/ meals w/ poor meal acceptance Prior adm w/ poor po intake 3) Wound care: continue SOLEDAD BID + Add Nephrovite x1 daily Vit C-> dosing per nephro 4) Monitor lytes and renal fxn Luis Alberto Cade Jun 27, 2020 13:19
--- NOTE | 2020-06-27 13:23 | NUR ---
NURSE NOTES: Faxed Arterial Duplex bilateral leg results to Dr. Feng's office.
--- NOTE | 2020-06-27 15:14 | NUR ---
NURSE NOTES:WOUND CARE NOTES:Return visit to complete Skin assessment as pt was being dialyzed previous day.Pt is morbidly obese. Bilat breasts folds and abdominal folds are moist and malodorous MASD Buttocks including Bilat Ischial tuberosities. Affected areas are erythematous and denuded. Moisture Intertrigo cleft of buttocks. Full thickness Ulcer medial upper R thigh (L)1.4cm x (W)1 cm x (D)0.2cm. Base of wound is monique with scattered Biofilm, and macerated Borders. NO exudate noted. Periwound, skin is erythematous, moist and malodorous. An area of Hyperpigmentation noted to medial aspect of R thigh in close proximity to wound. Medial upper L thigh is erythematous ,denuded and malodorous. Tx.Plan: Apply Moisture Barrier Paste to buttocks, ischium, and Bilat medial upper thighs with each incontinence care. Cleanse wound medial upper L thigh with Saline. Apply Therahoney. Apply Moisture Barrier Paste periwound. Cover with Optifoam drsg. Change Daily and prn. Reposition at least every 2hours or as tolerated. Off-load heels with Pillow.
[2020-06-27 16:00] VITALS: BP 117/51
--- NOTE | 2020-06-27 19:26 | NUR ---
NURSE NOTES: Received report from VIKAS Morales. Rounding is done. Patient is a/o x2, forgetful. Denied any pain at this time. No any distress at this time. Breathing is even and unlabored. IV site is intact and patent. PERMACATH on Rt. chest is intact. No skin change noted. All safety measures provided. Bed is on alarm, locked, and lowest position. Call light within reach. Will continue to monitor.
--- NOTE | 2020-06-27 19:37 | NUR ---
NURSE HAND-OFF: Important Events on Shift:Dialysis today 0 output Patient Status: stable Diet: renal diet (no chicken) Pending Orders: n/a Pending Results/Labs:n/a Pending MD notification:n/a Latest Vital Signs: Temperature 97.5 , Pulse 63 , B/P 117 /51 , Respiratory Rate 18 , O2 SAT 95 , Room Air, O2 Flow Rate . Vital Sign Comment: stable Latest Srivastava Fall Score: 50 Fall Risk: High Risk Safety Measures: Call light Within Reach, Bed Alarm Zone 1, Side Rails Side Rails x2, Bed position Low and Locked. Fall Precautions: Yellow Socks Yellow Gown Door Sign Patient Fall Education Report given to VIKAS Hess.
[2020-06-27 20:00] VITALS: BP 109/51
[2020-06-28] VITALS: BP 98/49
[2020-06-28] MEDS: HYDROcodone/Acetamin 5/325 tab ORAL PRN ×2 (03:10→09:41)
[2020-06-28 04:00] VITALS: BP 100/46
[2020-06-28] MEDS: HydrALAZINE 25mg tab ORAL SCH ×3 (06:00→21:39)
--- NOTE | 2020-06-28 07:25 | NUR ---
NURSE HAND-OFF: Important Events on Shift:[PAIN CONTROL] Patient Status: STABLE Diet: [RENAL, NO CHICKEN] Pending Orders: [N] Pending Results/Labs:[N] Pending MD notification:[N] Latest Vital Signs: Temperature 98.4 , Pulse 60 , B/P 100 /46 , Respiratory Rate 18 , O2 SAT 96 , Room Air, O2 Flow Rate . Vital Sign Comment: [STABLE] Latest Srivastava Fall Score: 50 Fall Risk: High Risk Safety Measures: Call light Within Reach, Bed Alarm Zone 1, Side Rails Side Rails x2, Bed position Low and Locked. Fall Precautions: Yellow Socks Yellow Gown Door Sign Patient Fall Education Report given to [FAIZAN RN].
--- NOTE | 2020-06-28 07:36 | General Progress Note ---
Subjective Allergies: Coded Allergies: PENICILLINS (Verified Allergy, Unknown, 04/23/20) Tolerated Cefepime 04/23/20 Objective Last 24 Hour Vital Signs Date Time Temp Pulse Resp B/P (MAP) Pulse Ox O2 Delivery O2 Flow Rate FiO2 06/28/20 06:00 100/46 06/28/20 04:00 98.4 60 18 100/46 (64) 96 06/28/20 00:00 97.9 60 18 98/49 (65) 93 06/27/20 21:42 109/51 06/27/20 21:00 Room Air 06/27/20 20:00 99.0 59 18 109/51 (70) 94 06/27/20 16:00 97.5 63 18 117/51 (73) 95 06/27/20 13:29 115/66 06/27/20 12:00 97.7 60 20 115/66 (82) 96 06/27/20 09:00 Room Air 06/27/20 08:00 97.7 60 18 110/62 (78) 94 Intake and Output 06/27/20 06/28/20 19:00 07:00 Intake Total 300 ml 240 ml Output Total 1000 ml Balance -700 ml 240 ml Intake Oral 300 ml 240 ml Hemodialysis UF 1000 ml Height (Feet): 5 Height (Inches): 5.00 Weight (Pounds): 238 Assessment/Plan Status: stable Assessment/Plan: S: I am ok O: seems comfortable, no sob or cp PHYSICAL EXAMINATION: . HEAD AND NECK: Atraumatic and normocephalic. CHEST: Clear to auscultation. HEART: S1, S2. Regular rate and rhythm. Bradycardic. MUSCULOSKELETAL: No gross lateralized motor deficit, paraparesis. stage 3 decubitus wound in calcaneal region.NEUROLOGIC: The patient is awake and alert x 2. LABORATORY AND DIAGNOSTIC DATA: Labs dated 06/26/20 reviewed Meds: reviwed and reconciled in chart ASSESSMENT: 1. hyperKalemia and Missed HD sessions 2. Decubitus wound, enlarging and infected. 3. End-stage renal disease, on temporary PermCath hemodialysis access. 2. Paroxysmal atrial fibrillation, rate is stable. 3. Diabetes type 2. 4. Hypertension. 5. Hyperlipidemia. 6. CVA-history. 7. Dementia. 8. Gastrointestinal and deep vein thrombosis prophylaxes. 9. Pain management Plan: HD- per Nephrology Nephrol-Critical care and vascular services consulted. Agree with Telemetry admission consult SW to discuss options to avoid future delays in outpatient HD Negative blood culture FU as out patient, once clear by Nephrology Danie Banegas MD Jun 28, 2020 07:36
--- NOTE | 2020-06-28 07:36 | NUR ---
NURSE NOTES: pt is in the bed asleep and resting comfortably. respiration is even and unlabored. no acute distress noted at this time. call light is within reach.
[2020-06-28 08:00] VITALS: BP 141/69
[2020-06-28 09:02] LABS: HEMATOCRIT 30.1 % (37.0-47.0); HEMOGLOBIN 9.7 G/DL (12.0-16.0); MEAN CORPUSCULAR VOLUME 92 FL (80-99); PLATELET COUNT 97 K/UL (150-450); RED BLOOD COUNT 3.27 M/UL (4.20-5.40); RED CELL DISTRIBUTION WIDTH 13.1 % (11.6-14.8); WHITE BLOOD COUNT 4.6 K/UL (4.8-10.8)
[2020-06-28 09:17] LABS: ALBUMIN 2.8 G/DL (3.4-5.0); ALBUMIN/GLOBULIN RATIO 0.8 (1.0-2.7); BILIRUBIN,TOTAL 0.4 MG/DL (0.2-1.0); CALCIUM 8.7 MG/DL (8.5-10.1); CREATININE 4.7 MG/DL (0.55-1.30); POTASSIUM 4.1 MMOL/L (3.5-5.1)
[2020-06-28] MEDS: Renvela 800mg Pkt ORAL SCH ×2 (09:34→18:09)
[2020-06-28] MEDS: Docusate 100mg cap ORAL SCH ×3 (09:34→18:09)
[2020-06-28] MEDS: Aspirin Baby 81mg ORAL SCH (09:34)
[2020-06-28] MEDS: Eliquis 2.5mg tablet ORAL SCH ×2 (09:34→18:09)
[2020-06-28] MEDS ORDERED: Tubing IV Secondary IV ONE (09:37)
[2020-06-28] MEDS ORDERED: NS 275ml ONE (09:37)
--- NOTE | 2020-06-28 09:47 | Surgery Progress Note ---
Surgery Progress Note Subjective Additional Comments resting comfortable n complaints no n/v labs noted Objective Last 24 Hour Vital Signs Date Time Temp Pulse Resp B/P (MAP) Pulse Ox O2 Delivery O2 Flow Rate FiO2 06/28/20 08:00 98.4 71 20 141/69 (93) 95 06/28/20 06:00 100/46 06/28/20 04:00 98.4 60 18 100/46 (64) 96 06/28/20 00:00 97.9 60 18 98/49 (65) 93 06/27/20 21:42 109/51 06/27/20 21:00 Room Air 06/27/20 20:00 99.0 59 18 109/51 (70) 94 06/27/20 16:00 97.5 63 18 117/51 (73) 95 06/27/20 13:29 115/66 06/27/20 12:00 97.7 60 20 115/66 (82) 96 I&O Intake and Output 06/27/20 06/28/20 19:00 07:00 Intake Total 300 ml 240 ml Output Total 1000 ml Balance -700 ml 240 ml Intake Oral 300 ml 240 ml Hemodialysis UF 1000 ml Dressing: other Wound: other Cardiovascular: RSR Respiratory: decreased breath sounds Abdomen: soft, non-tender, present bowel sounds Extremities: no tenderness, no cyanosis Laboratory Tests Test 06/28/20 08:45 White Blood Count 4.6 K/UL (4.8-10.8) L Red Blood Count 3.27 M/UL (4.20-5.40) L Hemoglobin 9.7 G/DL (12.0-16.0) L Hematocrit 30.1 % (37.0-47.0) L Mean Corpuscular Volume 92 FL (80-99) Mean Corpuscular Hemoglobin 29.8 PG (27.0-31.0) Mean Corpuscular Hemoglobin Concent 32.4 G/DL (32.0-36.0) Red Cell Distribution Width 13.1 % (11.6-14.8) Platelet Count 97 K/UL (150-450) L Mean Platelet Volume 9.6 FL (6.5-10.1) Neutrophils (%) (Auto) % (45.0-75.0) Lymphocytes (%) (Auto) % (20.0-45.0) Monocytes (%) (Auto) % (1.0-10.0) Eosinophils (%) (Auto) % (0.0-3.0) Basophils (%) (Auto) % (0.0-2.0) Neutrophils % (Manual) Pending Lymphocytes % (Manual) Pending Platelet Estimate Pending Platelet Morphology Pending Sodium Level 135 MMOL/L (136-145) L Potassium Level 4.1 MMOL/L (3.5-5.1) Chloride Level 100 MMOL/L (98-107) Carbon Dioxide Level 27 MMOL/L (21-32) Anion Gap 8 mmol/L (5-15) Blood Urea Nitrogen 20 mg/dL (7-18) H Creatinine 4.7 MG/DL (0.55-1.30) H Estimat Glomerular Filtration Rate 11.0 mL/min (>60) Glucose Level 109 MG/DL (74-106) H Calcium Level 8.7 MG/DL (8.5-10.1) Total Bilirubin 0.4 MG/DL (0.2-1.0) Aspartate Amino Transf (AST/SGOT) 16 U/L (15-37) Alanine Aminotransferase (ALT/SGPT) 18 U/L (12-78) Alkaline Phosphatase 58 U/L (46-116) Total Protein 6.1 G/DL (6.4-8.2) L Albumin 2.8 G/DL (3.4-5.0) L Globulin 3.3 g/dL Albumin/Globulin Ratio 0.8 (1.0-2.7) L Plan Problems: (1) Diabetic nephropathy (2) Cellulitis of left foot (3) Pacemaker (4) Anemia in chronic kidney disease (CKD) (5) History of CVA (cerebrovascular accident) (6) History of atrial fibrillation (7) COPD (chronic obstructive pulmonary disease) (8) Bradycardia (9) Diabetic nephropathy (10) Hypertensive kidney disease (11) Heel abrasion (12) Elevated troponin I level (13) Urinary tract infection due to Proteus (14) ESRD (end stage renal disease) (15) Volume overload (16) Hyperkalemia (17) Generalized weakness (18) Dyspnea (19) Symptomatic anemia (20) Acute on chronic renal failure (21) Anemia (22) HTN (hypertension) (23) Deep tissue injury Assessment & Plan: Pt presented on admission with Multiple Pressure injuries.Sacral DTPI noted over previously compromised area. Surrounding surgical scar. Base of Pressure Injury is indurated ,purpuric with Maroon Borders. Black discoloration with marginal erythema noted to R and L Buttocks. Linear area of hyperpigmentation noted sacral cleft. Darker skin tone without erythema or induration noted to R and L ischial tuberosities. L 1st metatarsal is black with small blood filled blister at tip of metatarsal.Web space of L 1st and L 2nd metatarsal is erythematous and macerated. Mild odor noted. Dry necrotic area noted to lateral aspect of L 5th metatarsal. Dry eschar lateral L foot (L)1cm x (W)1.5cm. Periwound is dry without erythema or fluctuance. Unstageable Pressure Injury L Heel(L)2.4cm x (W)3.5cm. Base of wound is necrotic with surrounding moist and pale skin,dry black borders. R 1st metatarsal is black. T heel is boggy, pale with dry peeling skin. Return visit to complete Skin assessment as pt was being dialyzed previous day.Pt is morbidly obese. Bilat breasts folds and abdominal folds are moist and malodorous MASD Buttocks including Bilat Ischial tuberosities. Affected areas are erythematous and denuded. Moisture Intertrigo hardy cleft of buttocks. Full thickness Ulcer medial upper R thigh (L)1.4cm x (W)1 cm x (D)0.2cm. Base of wound is monique with scattered Biofilm, and macerated Borders. NO exudate noted. Periwound, skin is erythematous, moist and malodorous. An area of Hyperpigmentation noted to medial aspect of R thigh in close proximity to wound. Medial upper L thigh is erythematous ,denuded and malodorous. Tx.Plan: Apply Moisture Barrier Paste to buttocks, ischium, and Bilat medial upper thighs with each incontinence care. Cleanse wound medial upper L thigh with Saline. Apply Therahoney. Apply Moisture Barrier Paste periwound. Cover with Optifoam drsg. Change Daily and prn. Cleanse Sacral wound with Saline. Apply TheraHoney. Apply Moisture Barrier Paste Periwound. Cover with Optifoam drsg. Change every 3 days and prn. Apply Moisture Barrier Paste to R and L ischial tuberosities with each Incontinence care. wash L heel. apply betadine and cover with optifoam dressing Apply Cavilon Skin Barrier to R Heel. Cover with Optifoam drsg. Change every 7 days and prn. Reposition at least every 2hours or as tolerated. off-load heels with pillows. nutritional optimization DAILY ESTIMATED NEEDS: Needs based on ESRD on HD, wound obese 70.5kg abw 20-25 kcals/kg 2897-5285 total kcals 1.8-2.5 IBW 56.8kg g protein/kg 102-142 g total protein Fluid per MD on HD NUTRITION DIAGNOSIS: Increased protein needs r/t renal dysfunction and wound healing as evidenced by pt w/ ESRD on HD, w/ L heel unstageable wound. CURRENT DIET:renal diet, no chicken PO DIET RECOMMENDATIONS: RENAL DIET/ texture per [employer]PER[employer] ADDITIONAL RECOMMENDATIONS: 1) Calibrated bedscale wt if adding P200 mattress + pump 2) Add NEPRO 1 tetra w/ meals w/ poor meal acceptance Prior adm w/ poor po intake 3) Wound care: continue SOLEDAD BID + Add Nephrovite x1 daily Vit C-> dosing per nephro 4) Monitor lytes and renal fxn Luis Alberto Cade Jun 28, 2020 09:47
--- NOTE | 2020-06-28 09:54 | Vascular Surgery Progress Note ---
Subjective Subjective No new complaints All noted Duplex images reviewed Objective Objective Last 24 Hour Vital Signs Date Time Temp Pulse Resp B/P (MAP) Pulse Ox O2 Delivery O2 Flow Rate FiO2 06/28/20 08:00 98.4 71 20 141/69 (93) 95 06/28/20 06:00 100/46 06/28/20 04:00 98.4 60 18 100/46 (64) 96 06/28/20 00:00 97.9 60 18 98/49 (65) 93 06/27/20 21:42 109/51 06/27/20 21:00 Room Air 06/27/20 20:00 99.0 59 18 109/51 (70) 94 06/27/20 16:00 97.5 63 18 117/51 (73) 95 06/27/20 13:29 115/66 06/27/20 12:00 97.7 60 20 115/66 (82) 96 Intake and Output 06/27/20 06/28/20 19:00 07:00 Intake Total 300 ml 240 ml Output Total 1000 ml Balance -700 ml 240 ml Intake Oral 300 ml 240 ml Hemodialysis UF 1000 ml Laboratory Tests Test 06/28/20 08:45 White Blood Count 4.6 K/UL (4.8-10.8) L Red Blood Count 3.27 M/UL (4.20-5.40) L Hemoglobin 9.7 G/DL (12.0-16.0) L Hematocrit 30.1 % (37.0-47.0) L Mean Corpuscular Volume 92 FL (80-99) Mean Corpuscular Hemoglobin 29.8 PG (27.0-31.0) Mean Corpuscular Hemoglobin Concent 32.4 G/DL (32.0-36.0) Red Cell Distribution Width 13.1 % (11.6-14.8) Platelet Count 97 K/UL (150-450) L Mean Platelet Volume 9.6 FL (6.5-10.1) Neutrophils (%) (Auto) % (45.0-75.0) Lymphocytes (%) (Auto) % (20.0-45.0) Monocytes (%) (Auto) % (1.0-10.0) Eosinophils (%) (Auto) % (0.0-3.0) Basophils (%) (Auto) % (0.0-2.0) Neutrophils % (Manual) Pending Lymphocytes % (Manual) Pending Platelet Estimate Pending Platelet Morphology Pending Sodium Level 135 MMOL/L (136-145) L Potassium Level 4.1 MMOL/L (3.5-5.1) Chloride Level 100 MMOL/L (98-107) Carbon Dioxide Level 27 MMOL/L (21-32) Anion Gap 8 mmol/L (5-15) Blood Urea Nitrogen 20 mg/dL (7-18) H Creatinine 4.7 MG/DL (0.55-1.30) H Estimat Glomerular Filtration Rate 11.0 mL/min (>60) Glucose Level 109 MG/DL (74-106) H Calcium Level 8.7 MG/DL (8.5-10.1) Total Bilirubin 0.4 MG/DL (0.2-1.0) Aspartate Amino Transf (AST/SGOT) 16 U/L (15-37) Alanine Aminotransferase (ALT/SGPT) 18 U/L (12-78) Alkaline Phosphatase 58 U/L (46-116) Total Protein 6.1 G/DL (6.4-8.2) L Albumin 2.8 G/DL (3.4-5.0) L Globulin 3.3 g/dL Albumin/Globulin Ratio 0.8 (1.0-2.7) L Height (Feet): 5 Height (Inches): 5.00 Weight (Pounds): 238 Objective Afebrile vsss Right chest permcath Left arm pulsatile bruit Left chest pacemaker foot wounds+ Absent pedal pulses Feet warm Assessment/Plan Assessment ESRD on HD via right chest permcath Hx of left arm av shunt malfunctioning Left chest pacemaker Morbid obesity Hx of CVA non ambulatory with dementia Severe calcific PAD with left foot decub ulcer Plan Abx per ID Medical optimization in progress Right arm new av shunt placement once cleared by ID--can be performed as outpatient Off load legs with decub & DVT precautions Podiatry eval and foot wound care David Feng MD Jun 28, 2020 09:54
--- NOTE | 2020-06-28 10:04 | NUR ---
RD ASSESSMENT & RECOMMENDATIONS SEE CARE ACTIVITY FOR COMPLETE ASSESSMENT DAILY ESTIMATED NEEDS: Needs based on ESRD on HD, wound obese 70.5kg abw 20-25 kcals/kg [id number] total kcals 1.8-2.5 IBW 56.8kg g protein/kg 102-142 g total protein Fluid per MD on HD NUTRITION DIAGNOSIS: Increased protein needs r/t renal dysfunction and wound healing as evidenced by pt w/ ESRD on HD, w/ L heel unstageable wound. CURRENT DIET:renal diet, no chicken PO DIET RECOMMENDATIONS: RENAL DIET/ texture per DATA REDUCTION TECHNICIAN ADDITIONAL RECOMMENDATIONS: 1) Calibrated bedscale wt if adding P200 mattress + pump 2) Add NEPRO 1 tetra w/ meals w/ poor meal acceptance Prior adm w/ poor po intake -> now improved. 3) Wound care: continue SOLEDAD BID + Add Nephrovite x1 daily Vit C-> dosing per nephro 4) Monitor lytes and renal fxn .
--- NOTE | 2020-06-28 10:23 | Pulmonology Progress Note ---
Subjective ROS Limited/Unobtainable: No Interval Events: None new Constitutional: Reports: no symptoms HEENT: Repors: no symptoms Respiratory: Reports: no symptoms Cardiovascular: Reports: no symptoms Gastrointestinal/Abdominal: Reports: no symptoms Genitourinary: Reports: no symptoms Allergies: Coded Allergies: PENICILLINS (Verified Allergy, Unknown, 04/23/20) Tolerated Cefepime 04/23/20 Objective Last 24 Hour Vital Signs Date Time Temp Pulse Resp B/P (MAP) Pulse Ox O2 Delivery O2 Flow Rate FiO2 06/28/20 08:00 98.4 71 20 141/69 (93) 95 06/28/20 06:00 100/46 06/28/20 04:00 98.4 60 18 100/46 (64) 96 06/28/20 00:00 97.9 60 18 98/49 (65) 93 06/27/20 21:42 109/51 06/27/20 21:00 Room Air 06/27/20 20:00 99.0 59 18 109/51 (70) 94 06/27/20 16:00 97.5 63 18 117/51 (73) 95 06/27/20 13:29 115/66 06/27/20 12:00 97.7 60 20 115/66 (82) 96 Intake and Output 06/27/20 06/28/20 19:00 07:00 Intake Total 300 ml 240 ml Output Total 1000 ml Balance -700 ml 240 ml Intake Oral 300 ml 240 ml Hemodialysis UF 1000 ml General Appearance: WD/WN HEENT: normocephalic Respiratory: chest wall non-tender Cardiovascular: normal peripheral pulses Microbiology Date/Time Source Procedure Growth Status 06/25/20 18:20 Blood Blood Culture - Preliminary NO GROWTH AFTER 24 HOURS Resulted 06/25/20 18:10 Blood Blood Culture - Preliminary NO GROWTH AFTER 24 HOURS Resulted Laboratory Tests 06/28/20 08:45: White Blood Count 4.6L, Red Blood Count 3.27L, Hemoglobin 9.7L, Hematocrit 30.1L , Mean Corpuscular Volume 92, Mean Corpuscular Hemoglobin 29.8, Mean Corpuscular Hemoglobin Concent 32.4, Red Cell Distribution Width 13.1, Platelet Count 97L, Mean Platelet Volume 9.6, Neutrophils (%) (Auto) , Lymphocytes (%) (Auto) , M onocytes (%) (Auto) , Eosinophils (%) (Auto) , Basophils (%) (Auto) , Neutrophils % (Manual) [Pending], Lymphocytes % (Manual) [Pending], Platelet Estimate [Pending], Platelet Morphology [Pending], Sodium Level 135L, Potassium Level 4.1, Chloride Level 100, Carbon Dioxide Level 27, Anion Gap 8, Blood Urea Nitrogen 20H, Creatinine 4.7H, Estimat Glomerular Filtration Rate 11.0, Glucose Level 109H, Calcium Level 8.7, Total Bilirubin 0.4, Aspartate Amino Transf (AST/SGOT) 16, Alanine Aminotransferase (ALT/SGPT) 18, Alkaline Phosphatase 58, Total Protein 6.1L, Albumin 2.8L, Globulin 3.3, Albumin/Globulin Ratio 0.8L Current Medications Medications (Trade) Dose Ordered Sig/Jesus Route PRN Reason Start Time Stop Time Status Last Admin Dose Admin Acetaminophen (Tylenol) 650 mg Q4H PRN ORAL For Pain 06/23/20 15:15 07/23/20 15:14 Acetaminophen/ Hydrocodone Bitart ([place] 5/325) 1 tab Q4H PRN ORAL Moderate Pain (Pain Scale 4-6) 06/26/20 21:30 07/03/20 21:29 06/28/20 09:41 Albuterol Sulfate (Proventil) 2.5 mg Q6H PRN HHN wheezing 06/23/20 15:30 06/28/20 15:29 Apixaban (Eliquis) 2.5 mg BID ORAL 06/23/20 18:00 09/21/20 17:59 06/28/20 09:34 Aspirin (ASA) 81 mg DAILY ORAL 06/24/20 09:00 08/08/20 08:59 06/28/20 09:34 Atorvastatin Calcium (Lipitor) 10 mg BEDTIME ORAL 06/23/20 21:00 09/21/20 20:59 06/27/20 21:38 Docusate Sodium (Colace) 100 mg THREE TIMES A DAY ORAL 06/23/20 18:00 07/23/20 17:59 06/28/20 09:34 Gabapentin (Neurontin) 100 mg BID ORAL 06/23/20 18:00 07/23/20 17:59 06/28/20 09:34 Hydralazine HCl (Apresoline) 25 mg EVERY 8 HOURS ORAL 06/23/20 22:00 09/21/20 21:59 06/26/20 20:52 Hydralazine HCl (Apresoline) 25 mg Q4H PRN ORAL bp over 160 syst 06/23/20 15:30 09/21/20 15:29 Ondansetron HCl (Zofran) 4 mg Q6H PRN IVP Nausea & Vomiting 06/23/20 20:00 07/23/20 19:59 06/28/20 03:20 Pantoprazole (Protonix) 40 mg EVERY 12 HOURS ORAL 06/23/20 21:00 07/23/20 20:59 06/28/20 09:34 Sevelamer Carbonate (Renvela) 800 mg BID ORAL 06/26/20 18:00 09/21/20 17:59 06/28/20 09:34 Vancomycin HCl ([facility] pharmacy to dose) 1 ea DAILY PRN MISC Per rx protocol 06/24/20 12:45 07/24/20 12:44 Assessment/Plan Assessment/Plan IMPRESSION: 1. Hyperkalemia. 2. Pulmonary edema. 3. Missed dialysis. 4. Diabetes mellitus. 5. Hypertension. 6. History of COPD. DISCUSSION: Continue HD Currently saturating well on room air. Discussed with Dr. Banegas. Yajaira Tse Omar Syed MD Jun 28, 2020 10:23
--- NOTE | 2020-06-28 10:31 | Cardiology Progress Note ---
Assessment/Plan Status: stable Assessment/Plan Assessment/Plan Status: stable Assessment/Plan: ASSESSMENT: ESRD on HD via right chest permcath Hx of left arm av shunt malfunctioning Left chest pacemaker Morbid obesity Hx of CVA non ambulatory with dementia Severe calcific PAD with left foot decub ulcer Hypertension Diabetes Asthma hx of CVA left weakness GERD decubitus ulcer AFIB Plan: -Continue Eliquis -Continue statin -Hydralazine for hypertension -Patient currently A paced V sensed -Echocardiogram: Normal left ventricular chamber size, systolic function and wall motion to extent visualized. Left ventricular ejection fraction estimated to be 55%. Mild left ventricular hypertrophy by 2-D. No evidence of pericardial fat or effusion. Mild left atrial enlargement. Right cardiac chamber sizes are within normal limits. Calcification of aortic valve with adequate cusp excursion. Moderate thickened mitral valve leaflets with normal excursion. Mitral annulus and aortic root calcification. Pulmonic valve not well visualized. Normal tricuspid valve structure. IVC measured at size 2.2 cm without physiologic collapse, suggestive of increased RA pressure. A color flow and spectral Doppler study was performed and revealed: No aortic regurgitation. Trace mitral regurgitation. Mitral inflow velocities indicates possible pseudo normalization pattern implying moderately elevated left atrial pressure (Grade II ). Trace tricuspid regurgitation. Tricuspid systolic velocities suggests peak right ventricular systolic pressure of 21 mmHg. Trace pulmonic regurgitation present. Subjective Cardiovascular: Reports: no symptoms Respiratory: Reports: no symptoms Gastrointestinal/Abdominal: Reports: no symptoms Genitourinary: Reports: no symptoms Subjective Coverage for [place] No acute events Objective Last 24 Hour Vital Signs Date Time Temp Pulse Resp B/P (MAP) Pulse Ox O2 Delivery O2 Flow Rate FiO2 06/28/20 08:00 98.4 71 20 141/69 (93) 95 06/28/20 06:00 100/46 06/28/20 04:00 98.4 60 18 100/46 (64) 96 06/28/20 00:00 97.9 60 18 98/49 (65) 93 06/27/20 21:42 109/51 06/27/20 21:00 Room Air 06/27/20 20:00 99.0 59 18 109/51 (70) 94 06/27/20 16:00 97.5 63 18 117/51 (73) 95 06/27/20 13:29 115/66 06/27/20 12:00 97.7 60 20 115/66 (82) 96 General Appearance: no apparent distress, alert EENT: PERRL/EOMI, normal ENT inspection, TMs normal, pharynx normal Neck: non-tender, normal alignment, supple, normal inspection, no JVD Rhythm: NSR Cardiovascular: normal peripheral pulses, normal rate, regular rhythm Respiratory/Chest: chest wall non-tender, lungs clear, normal breath sounds, no respiratory distress Abdomen: non tender, soft Extremities: normal range of motion, non-tender, normal inspection Neurologic: rn pediatric icu II-XII grossly normal, no motor/sensory deficits Intake and Output 06/27/20 06/28/20 19:00 07:00 Intake Total 300 ml 240 ml Output Total 1000 ml Balance -700 ml 240 ml Intake Oral 300 ml 240 ml Hemodialysis UF 1000 ml Laboratory Tests Test 06/28/20 08:45 White Blood Count 4.6 K/UL (4.8-10.8) L Red Blood Count 3.27 M/UL (4.20-5.40) L Hemoglobin 9.7 G/DL (12.0-16.0) L Hematocrit 30.1 % (37.0-47.0) L Mean Corpuscular Volume 92 FL (80-99) Mean Corpuscular Hemoglobin 29.8 PG (27.0-31.0) Mean Corpuscular Hemoglobin Concent 32.4 G/DL (32.0-36.0) Red Cell Distribution Width 13.1 % (11.6-14.8) Platelet Count 97 K/UL (150-450) L Mean Platelet Volume 9.6 FL (6.5-10.1) Neutrophils (%) (Auto) % (45.0-75.0) Lymphocytes (%) (Auto) % (20.0-45.0) Monocytes (%) (Auto) % (1.0-10.0) Eosinophils (%) (Auto) % (0.0-3.0) Basophils (%) (Auto) % (0.0-2.0) Neutrophils % (Manual) Pending Lymphocytes % (Manual) Pending Platelet Estimate Pending Platelet Morphology Pending Sodium Level 135 MMOL/L (136-145) L Potassium Level 4.1 MMOL/L (3.5-5.1) Chloride Level 100 MMOL/L (98-107) Carbon Dioxide Level 27 MMOL/L (21-32) Anion Gap 8 mmol/L (5-15) Blood Urea Nitrogen 20 mg/dL (7-18) H Creatinine 4.7 MG/DL (0.55-1.30) H Estimat Glomerular Filtration Rate 11.0 mL/min (>60) Glucose Level 109 MG/DL (74-106) H Calcium Level 8.7 MG/DL (8.5-10.1) Total Bilirubin 0.4 MG/DL (0.2-1.0) Aspartate Amino Transf (AST/SGOT) 16 U/L (15-37) Alanine Aminotransferase (ALT/SGPT) 18 U/L (12-78) Alkaline Phosphatase 58 U/L (46-116) Total Protein 6.1 G/DL (6.4-8.2) L Albumin 2.8 G/DL (3.4-5.0) L Globulin 3.3 g/dL Albumin/Globulin Ratio 0.8 (1.0-2.7) L Microbiology Date/Time Source Procedure Growth Status 06/25/20 18:20 Blood Blood Culture - Preliminary NO GROWTH AFTER 24 HOURS Resulted 06/25/20 18:10 Blood Blood Culture - Preliminary NO GROWTH AFTER 24 HOURS Resulted Benjamín Lo MD Jun 28, 2020 10:31
[2020-06-28 12:00] VITALS: BP 93/43
--- NOTE | 2020-06-28 12:04 | Infectious Diseases Prog Note ---
Assessment/Plan Assessment: COVID19 neg x1 (06/23n rapid COVID pCR neg) -CXR: Mild pulmonary vascular prominence. No evidence of alveolar edema. No focal consolidation. Afebrile No leukocytosis S. capitis bacteremia- likely HD cath infection as this is the same organism she was bacteremic and septic back in April 2020- it was treated at the time w/ 2 weeks of IV vancomycin but no recurrence of bacteremia --06/23 Bcx 2/4 GPC clusters; 06/25 Bcx NTD --2d echo: no vegetations seen Pyuria -u/a wbc tnct, nit -, leuk +3; ucx NTD Hyperkalemia, SP (due to missing HD sessions) hx of SEvere sepsis 2ry S. capitis bacteremia, persistent; 04/2020 SP Rx -likely HD line infection in the setting of sepsis -04/23 Bcx 1/4 Staph capitis ; 04/25 Bcx 1/4 Staph capitis; 04/27 Bcx Neg x4 (peripheral, HD line) -2d Echo: no vegetations seen Hx of L foot/ankle wound; no grossly infected- no OM on bone scan -04/28/20 Bone scan: No significant abnormality in the left heel to suggest osteomyelitis of the location of clinically described left heel wound. Mild bilateral abnormal uptake, as detailed above, likely reflecting degenerative changes -xray L foot/ankle: No acute findings in the left foot. -CRP 5.9, ESR 53 Dm2 HTN Asthma/COPD CVA w/ residual L side weakness s/p PPM asthma ESRD on HD (MWF) via permacath R upper chest GERD decubitus ulcer Afib Plan: -Continue IV Vancomycin #5 for S. capitis bacteremia and likely HD cath infection -05/10/20 SP IV Vancomycin #18 -05/05 SP Meropenem #4 -04/29 SP Cefepime #5 -04/25 SP Ceftriaxone #3 -04/23/20 SP Cefepime x1 -f/u cx -Monitor CBC/CMP, temperatures -f/u Bcx x2 -May need RASHAAD if recurrent bacteremia, febrile -Discussed with Dr Makenzie herman concern for HD cath infection as recurrence of bacteremia with same organisms in April despite treatment. Recommend removal and placing new catheter. Repeat Bcx are already not growth and patient is afebrile Thank you for this consultation. Will continue to follow along with you. Discussed with RN. Subjective Allergies: Coded Allergies: PENICILLINS (Verified Allergy, Unknown, 04/23/20) Tolerated Cefepime 04/23/20 afebrile at [facility] Objective Last 24 Hour Vital Signs Date Time Temp Pulse Resp B/P (MAP) Pulse Ox O2 Delivery O2 Flow Rate FiO2 06/28/20 09:00 Room Air 06/28/20 08:00 98.4 71 20 141/69 (93) 95 06/28/20 06:00 100/46 06/28/20 04:00 98.4 60 18 100/46 (64) 96 06/28/20 00:00 97.9 60 18 98/49 (65) 93 06/27/20 21:42 109/51 06/27/20 21:00 Room Air 06/27/20 20:00 99.0 59 18 109/51 (70) 94 06/27/20 16:00 97.5 63 18 117/51 (73) 95 06/27/20 13:29 115/66 06/27/20 12:00 97.7 60 20 115/66 (82) 96 Height (Feet): 5 Height (Inches): 5.00 Weight (Pounds): 238 HEENT: Unremarkable. LUNGS: Decreased breath sounds bilaterally. ABDOMEN: Soft. EXTREMITIES: There is no edema. Microbiology Date/Time Source Procedure Growth Status 06/25/20 18:20 Blood Blood Culture - Preliminary NO GROWTH AFTER 24 HOURS Resulted 06/25/20 18:10 Blood Blood Culture - Preliminary NO GROWTH AFTER 24 HOURS Resulted Laboratory Tests Test 06/28/20 08:45 White Blood Count 4.6 K/UL (4.8-10.8) L Red Blood Count 3.27 M/UL (4.20-5.40) L Hemoglobin 9.7 G/DL (12.0-16.0) L Hematocrit 30.1 % (37.0-47.0) L Mean Corpuscular Volume 92 FL (80-99) Mean Corpuscular Hemoglobin 29.8 PG (27.0-31.0) Mean Corpuscular Hemoglobin Concent 32.4 G/DL (32.0-36.0) Red Cell Distribution Width 13.1 % (11.6-14.8) Platelet Count 97 K/UL (150-450) L Mean Platelet Volume 9.6 FL (6.5-10.1) Neutrophils (%) (Auto) % (45.0-75.0) Lymphocytes (%) (Auto) % (20.0-45.0) Monocytes (%) (Auto) % (1.0-10.0) Eosinophils (%) (Auto) % (0.0-3.0) Basophils (%) (Auto) % (0.0-2.0) Differential Total Cells Counted 100 Neutrophils % (Manual) 57 % (45-75) Lymphocytes % (Manual) 32 % (20-45) Monocytes % (Manual) 5 % (1-10) Eosinophils % (Manual) 6 % (0-3) H Basophils % (Manual) 0 % (0-2) Band Neutrophils 0 % (0-8) Platelet Estimate Decreased L Platelet Morphology Normal Sodium Level 135 MMOL/L (136-145) L Potassium Level 4.1 MMOL/L (3.5-5.1) Chloride Level 100 MMOL/L (98-107) Carbon Dioxide Level 27 MMOL/L (21-32) Anion Gap 8 mmol/L (5-15) Blood Urea Nitrogen 20 mg/dL (7-18) H Creatinine 4.7 MG/DL (0.55-1.30) H Estimat Glomerular Filtration Rate 11.0 mL/min (>60) Glucose Level 109 MG/DL (74-106) H Calcium Level 8.7 MG/DL (8.5-10.1) Total Bilirubin 0.4 MG/DL (0.2-1.0) Aspartate Amino Transf (AST/SGOT) 16 U/L (15-37) Alanine Aminotransferase (ALT/SGPT) 18 U/L (12-78) Alkaline Phosphatase 58 U/L (46-116) Total Protein 6.1 G/DL (6.4-8.2) L Albumin 2.8 G/DL (3.4-5.0) L Globulin 3.3 g/dL Albumin/Globulin Ratio 0.8 (1.0-2.7) L Current Medications Medications (Trade) Dose Ordered Sig/Jesus Route PRN Reason Start Time Stop Time Status Last Admin Dose Admin Acetaminophen (Tylenol) 650 mg Q4H PRN ORAL For Pain 06/23/20 15:15 07/23/20 15:14 Acetaminophen/ Hydrocodone Bitart ([place] 5/325) 1 tab Q4H PRN ORAL Moderate Pain (Pain Scale 4-6) 06/26/20 21:30 07/03/20 21:29 06/28/20 09:41 Albuterol Sulfate (Proventil) 2.5 mg Q6H PRN HHN wheezing 06/23/20 15:30 06/28/20 15:29 Apixaban (Eliquis) 2.5 mg BID ORAL 06/23/20 18:00 09/21/20 17:59 06/28/20 09:34 Aspirin (ASA) 81 mg DAILY ORAL 06/24/20 09:00 08/08/20 08:59 06/28/20 09:34 Atorvastatin Calcium (Lipitor) 10 mg BEDTIME ORAL 06/23/20 21:00 09/21/20 20:59 06/27/20 21:38 Docusate Sodium (Colace) 100 mg THREE TIMES A DAY ORAL 06/23/20 18:00 07/23/20 17:59 06/28/20 09:34 Gabapentin (Neurontin) 100 mg BID ORAL 06/23/20 18:00 07/23/20 17:59 06/28/20 09:34 Hydralazine HCl (Apresoline) 25 mg EVERY 8 HOURS ORAL 06/23/20 22:00 09/21/20 21:59 06/26/20 20:52 Hydralazine HCl (Apresoline) 25 mg Q4H PRN ORAL bp over 160 syst 06/23/20 15:30 09/21/20 15:29 Ondansetron HCl (Zofran) 4 mg Q6H PRN IVP Nausea & Vomiting 06/23/20 20:00 07/23/20 19:59 06/28/20 03:20 Pantoprazole (Protonix) 40 mg EVERY 12 HOURS ORAL 06/23/20 21:00 07/23/20 20:59 06/28/20 09:34 Sevelamer Carbonate (Renvela) 800 mg BID ORAL 06/26/20 18:00 09/21/20 17:59 06/28/20 09:34 Vancomycin HCl ([facility] pharmacy to dose) 1 ea DAILY PRN MISC Per rx protocol 06/24/20 12:45 07/24/20 12:44 Kathia Lei M.D. Jun 28, 2020 12:04
--- NOTE | 2020-06-28 13:20 | Nephrology Progress Note ---
Assessment/Plan Problem List: (1) ESRD (end stage renal disease) (2) Volume overload (3) Hyperkalemia (4) Bradycardia (5) Pacemaker (6) Diabetic nephropathy Assessment ESRD (end stage renal disease), missed few sessions of hemodialysis Volume overload , Hyperkalemia other conditions: -. Diabetes with diabetic nephropathy and neuropathy. -. History of CVA with left weakness. -. History of atrial fibrillation. -. History of pacemaker. Plan June 28: Labs reviewed. Status quo. Dialyzed yesterday June 27. Discussed with ID. Patient bacteremic with the same organism of previous admission. Suggestion to remove the current permacath and replaced with a new one at the same time. PMD and vascular surgeon aware. Due for next dialysis on June 30. June 27: Lab reviewed. Status quo. Due for dialysis today. Stable from renal standpoint of view. Continue per PMD and consultants. June 26: Patient stable. Dialyzed yesterday. Labs reviewed. Due for dialysis tomorrow. Continue per vascular surgical recommendation. June 25: Clinically stable. Labs reviewed. Medication list reviewed. Due for dialysis today. Continue with same management. Patient received dialysis yesterday. Will attempt dialysis again tomorrow. Labs, medications reviewed. Continue per consultants. Subjective ROS Limited/Unobtainable: No Constitutional: Reports: malaise Objective Objective Last 24 Hour Vital Signs Date Time Temp Pulse Resp B/P (MAP) Pulse Ox O2 Delivery O2 Flow Rate FiO2 06/28/20 12:00 98.2 60 20 93/43 (60) 94 06/28/20 09:00 Room Air 06/28/20 08:00 98.4 71 20 141/69 (93) 95 06/28/20 06:00 100/46 06/28/20 04:00 98.4 60 18 100/46 (64) 96 06/28/20 00:00 97.9 60 18 98/49 (65) 93 06/27/20 21:42 109/51 06/27/20 21:00 Room Air 06/27/20 20:00 99.0 59 18 109/51 (70) 94 06/27/20 16:00 97.5 63 18 117/51 (73) 95 06/27/20 13:29 115/66 Intake and Output 06/27/20 06/28/20 19:00 07:00 Intake Total 300 ml 240 ml Output Total 1000 ml Balance -700 ml 240 ml Intake Oral 300 ml 240 ml Hemodialysis UF 1000 ml Laboratory Tests 06/28/20 08:45: White Blood Count 4.6L, Red Blood Count 3.27L, Hemoglobin 9.7L, Hematocrit 30.1L , Mean Corpuscular Volume 92, Mean Corpuscular Hemoglobin 29.8, Mean Corpuscular Hemoglobin Concent 32.4, Red Cell Distribution Width 13.1, Platelet Count 97L, Mean Platelet Volume 9.6, Neutrophils (%) (Auto) , Lymphocytes (%) (Auto) , Monocytes (%) (Auto) , Eosinophils (%) (Auto) , Basophils (%) (Auto) , Differential Total Cells Counted 100, Neutrophils % (Manual) 57, Lymphocytes % (Manual) 32, Monocytes % (Manual) 5, Eosinophils % (Manual) 6H, Basophils % (Manual) 0, Band Neutrophils 0, Platelet Estimate DecreasedL, Platelet Morphology Normal, Sodium Level 135L, Potassium Level 4.1, Chloride Level 100, Carbon Dioxide Level 27, Anion Gap 8, Blood Urea Nitrogen 20H, Creatinine 4.7H, Estimat Glomerular Filtration Rate 11.0, Glucose Level 109H, Calcium Level 8.7, Total Bilirubin 0.4, Aspartate Amino Transf (AST/SGOT) 16, Alanine Aminotransferase (ALT/SGPT) 18, Alkaline Phosphatase 58, Total Protein 6.1L, Albumin 2.8L, Globulin 3.3, Albumin/Globulin Ratio 0.8L Height (Feet): 5 Height (Inches): 5.00 Weight (Pounds): 238 General Appearance: no apparent distress Cardiovascular: normal rate Respiratory/Chest: decreased breath sounds Abdomen: soft Objective No change Manas Stephenson MD Jun 28, 2020 13:19
[2020-06-28 16:00] VITALS: BP 105/65
--- NOTE | 2020-06-28 16:26 | NUR ---
CASE MANAGEMENT:REVIEW SI;HYPERKALEMIA. ESRD on HD. DM. BACTEREMIA. 98.4 71 20 93/43 94% ON RA WBC 4.6 RBC 3.27 PLT 97 NA 135 BUN 20 CR 4.7 ALB 2.8 IS;NORCO PO Q4 PRN ASA PO QD PROTONIX PO Q12 LIPITOR PO HS ELIQUIS PO BID MED SURG STATUS DCP;FROM HOME PLAN; REMOVE PERMA CATH PLACE ILAN CATH DC HOME WHEN STABLE
--- NOTE | 2020-06-28 19:40 | NUR ---
NURSE NOTES: Patient in bed, easily awakened on her name. On room air, no SOB noted. With IV access on right arm. No dialysis access. Instructed to use call light for assistance. Call light and telephone in reach. Bed in lowest, lock engaged and alarm on. Will continue plan of care.
--- NOTE | 2020-06-28 19:58 | NUR ---
HANDS OFF: REPORT GIVEN TO AJGRUTI.
[2020-06-28 20:00] VITALS: BP 119/61
[2020-06-29] VITALS: BP 109/49
--- NOTE | 2020-06-29 01:18 | NUR ---
NURSE NOTES: Dressings changed.
[2020-06-29 04:00] VITALS: BP 101/47
[2020-06-29] MEDS: HydrALAZINE 25mg tab ORAL SCH ×3 (05:20→21:52)
--- NOTE | 2020-06-29 06:27 | NUR ---
NURSE HAND-OFF: Important Events on Shift:Dressings changed, Patient spoke with daughter on the phone Patient Status: Forgetful Diet: Renal Pending Orders: labs Pending Results/Labs:am labs Pending MD notification: Latest Vital Signs: Temperature 98.2 , Pulse 60 , B/P 101 /47 , Respiratory Rate 18 , O2 SAT 92 , Room Air, O2 Flow Rate . Vital Sign Comment: Latest Srivastava Fall Score: 50 Fall Risk: High Risk Safety Measures: Call light Within Reach, Bed Alarm Zone 1, Side Rails Side Rails x2, Bed position Low and Locked. Fall Precautions: Yellow Socks Yellow Gown Door Sign Patient Fall Education
[2020-06-29 06:45] LABS: BASOPHILS % (AUTO) 1.6 % (0.0-2.0); EOSINOPHILS % (AUTO) 4.3 % (0.0-3.0); HEMATOCRIT 29.5 % (37.0-47.0); HEMOGLOBIN 9.6 G/DL (12.0-16.0); LYMPHOCYTES % (AUTO) 33.5 % (20.0-45.0); MEAN CORPUSCULAR VOLUME 92 FL (80-99); MONOCYTES % (AUTO) 12.3 % (1.0-10.0); NEUTROPHILS % (AUTO) 48.3 % (45.0-75.0); PLATELET COUNT 108 K/UL (150-450); RED BLOOD COUNT 3.22 M/UL (4.20-5.40); RED CELL DISTRIBUTION WIDTH 12.9 % (11.6-14.8); WHITE BLOOD COUNT 5.4 K/UL (4.8-10.8)
--- NOTE | 2020-06-29 07:36 | NUR ---
HAND-OFF: Report given to VIKAS Morales.
--- NOTE | 2020-06-29 07:44 | NUR ---
NURSE NOTES: Report received from VIKAS Anaya. Patient observed to be asleep, with HOB elevated. Currently on room air, no s/sx of SOB/Distress. No s/sx of any pain. IV site located on RFA gauge 18, asymptomatic, inplace and intact. Bed placed on lowest, and locked position, call light placed within reach and will continue to monitor for any changes in condition.
[2020-06-29 08:00] VITALS: BP 108/46
[2020-06-29] MEDS: Aspirin Baby 81mg ORAL SCH (08:18)
[2020-06-29] MEDS: Docusate 100mg cap ORAL SCH ×3 (08:18→17:11)
[2020-06-29] MEDS: Renvela 800mg Pkt ORAL SCH ×2 (08:18→17:12)
[2020-06-29] MEDS: Eliquis 2.5mg tablet ORAL SCH ×2 (08:18→17:12)
[2020-06-29 09:01] LABS: ALBUMIN 2.8 G/DL (3.4-5.0); ALBUMIN/GLOBULIN RATIO 0.8 (1.0-2.7); BILIRUBIN,TOTAL 0.4 MG/DL (0.2-1.0); CREATININE 6.3 MG/DL (0.55-1.30); PHOSPHORUS 4.1 MG/DL (2.5-4.9); POTASSIUM 4.2 MMOL/L (3.5-5.1)
--- NOTE | 2020-06-29 10:14 | General Progress Note ---
Subjective Allergies: Coded Allergies: PENICILLINS (Verified Allergy, Unknown, 04/23/20) Tolerated Cefepime 04/23/20 Objective Last 24 Hour Vital Signs Date Time Temp Pulse Resp B/P (MAP) Pulse Ox O2 Delivery O2 Flow Rate FiO2 06/29/20 09:00 Room Air 06/29/20 08:00 98.3 60 19 108/46 (66) 92 06/29/20 05:20 101/47 06/29/20 04:00 98.2 60 18 101/47 (65) 92 06/29/20 00:00 99.0 60 18 109/49 (69) 93 06/28/20 21:00 Room Air 06/28/20 20:00 98.4 60 18 119/61 (80) 92 06/28/20 16:00 98.0 64 19 105/65 (78) 94 06/28/20 14:00 93/43 06/28/20 12:00 98.2 60 20 93/43 (60) 94 Intake and Output 06/28/20 06/29/20 19:00 07:00 Intake Total 480 ml Output Total 1 ml Balance 480 ml -1 ml Intake Oral 480 ml Stool Total 1 ml # Voids 1 Laboratory Tests 06/28/20 15:00: Prothrombin Time 11.4, Prothromb Time International Ratio 1.0, Activated Partial Thromboplast Time 28 06/29/20 06:10: White Blood Count 5.4, Red Blood Count 3.22L, Hemoglobin 9.6L, Hematocrit 29.5L, Mean Corpuscular Volume 92, Mean Corpuscular Hemoglobin 29.9, Mean Corpuscular Hemoglobin Concent 32.6, Red Cell Distribution Width 12.9, Platelet Count 108L, Mean Platelet Volume 9.0, Neutrophils (%) (Auto) 48.3, Lymphocytes (%) (Auto) 33.5, Monocytes (%) (Auto) 12.3H, Eosinophils (%) (Auto) 4.3H, Basophils (%) (Auto) 1.6, Sodium Level 137, Potassium Level 4.2, Chloride Level 101, Carbon Dioxide Level 25, Anion Gap 11, Blood Urea Nitrogen 29H, Creatinine 6.3H, Estimat Glomerular Filtration Rate 7.9, Glucose Level 106, Uric Acid 3.3, Calcium Level 9.0, Phosphorus Level 4.1, Magnesium Level 2.5H, Total Bilirubin 0.4, Aspartate Amino Transf (AST/SGOT) 18, Alanine Aminotransferase (ALT/SGPT) 18, Alkaline Phosphatase 57, C-Reactive Protein, Quantitative 0.8, Pro-B-Type N atriuretic Peptide 4045H, Total Protein 6.1L, Albumin 2.8L, Globulin 3.3, Albumin/Globulin Ratio 0.8L Height (Feet): 5 Height (Inches): 5.00 Weight (Pounds): 238 Assessment/Plan Status: stable Assessment/Plan: S: I am ok O: seems comfortable, no sob or cp PHYSICAL EXAMINATION: . HEAD AND NECK: Atraumatic and normocephalic. CHEST: Clear to auscultation. HEART: S1, S2. Regular rate and rhythm. Bradycardic. MUSCULOSKELETAL: No gross lateralized motor deficit, paraparesis. stage 3 decubitus wound in calcaneal region.NEUROLOGIC: The patient is awake and alert x 2. LABORATORY AND DIAGNOSTIC DATA: Labs dated 06/28/20 reviewed Meds: reviwed and reconciled in chart ASSESSMENT: 1. Sepsis with Staph 2. hyperKalemia and Missed HD sessions 2. Decubitus wound, enlarging and infected. 3. End-stage renal disease, on temporary PermCath hemodialysis access. 2. Paroxysmal atrial fibrillation, rate is stable. 3. Diabetes type 2. 4. Hypertension. 5. Hyperlipidemia. 6. CVA-history. 7. Dementia. 8. Gastrointestinal and deep vein thrombosis prophylaxes. 9. Pain management Plan: HD- per Nephrology Nephrol-Critical care and vascular services consulted. Agree with Telemetry admission consult SW to discuss options to avoid future delays in outpatient HD Negative blood culture Discussion: D/w ID , given the initial bacteremia with Staph Capisits in this patient with long standing HD-Permcath in place. There is moderte risk for underlying line infection. Will proceed with line Extraction. Also, D/w cardiology ( Dr Franco) on Jun 29 for risk assessment for possible infective endocarditis workup . D/w Daughter on Jun 28 Danie Banegas MD Jun 29, 2020 10:14
--- NOTE | 2020-06-29 10:31 | Pulmonology Progress Note ---
Subjective ROS Limited/Unobtainable: No Interval Events: None new Constitutional: Reports: no symptoms HEENT: Repors: no symptoms Respiratory: Reports: no symptoms Cardiovascular: Reports: no symptoms Gastrointestinal/Abdominal: Reports: no symptoms Genitourinary: Reports: no symptoms Allergies: Coded Allergies: PENICILLINS (Verified Allergy, Unknown, 04/23/20) Tolerated Cefepime 04/23/20 Objective Last 24 Hour Vital Signs Date Time Temp Pulse Resp B/P (MAP) Pulse Ox O2 Delivery O2 Flow Rate FiO2 06/29/20 09:00 Room Air 06/29/20 08:00 98.3 60 19 108/46 (66) 92 06/29/20 05:20 101/47 06/29/20 04:00 98.2 60 18 101/47 (65) 92 06/29/20 00:00 99.0 60 18 109/49 (69) 93 06/28/20 21:00 Room Air 06/28/20 20:00 98.4 60 18 119/61 (80) 92 06/28/20 16:00 98.0 64 19 105/65 (78) 94 06/28/20 14:00 93/43 06/28/20 12:00 98.2 60 20 93/43 (60) 94 Intake and Output 06/28/20 06/29/20 19:00 07:00 Intake Total 480 ml Output Total 1 ml Balance 480 ml -1 ml Intake Oral 480 ml Stool Total 1 ml # Voids 1 General Appearance: WD/WN HEENT: normocephalic Respiratory: chest wall non-tender Cardiovascular: normal peripheral pulses Laboratory Tests 06/28/20 15:00: Prothrombin Time 11.4, Prothromb Time International Ratio 1.0, Activated Partial Thromboplast Time 28 06/29/20 06:10: White Blood Count 5.4, Red Blood Count 3.22L, Hemoglobin 9.6L, Hematocrit 29.5L, Mean Corpuscular Volume 92, Mean Corpuscular Hemoglobin 29.9, Mean Corpuscular Hemoglobin Concent 32.6, Red Cell Distribution Width 12.9, Platelet Count 108L, Mean Platelet Volume 9.0, Neutrophils (%) (Auto) 48.3, Lymphocytes (%) (Auto) 33.5, Monocytes (%) (Auto) 12.3H, Eosinophils (%) (Auto) 4.3H, Basophils (%) (Au to) 1.6, Sodium Level 137, Potassium Level 4.2, Chloride Level 101, Carbon Dioxide Level 25, Anion Gap 11, Blood Urea Nitrogen 29H, Creatinine 6.3H, Estimat Glomerular Filtration Rate 7.9, Glucose Level 106, Uric Acid 3.3, Calcium Level 9.0, Phosphorus Level 4.1, Magnesium Level 2.5H, Total Bilirubin 0.4, Aspartate Amino Transf (AST/SGOT) 18, Alanine Aminotransferase (ALT/SGPT) 18, Alkaline Phosphatase 57, C-Reactive Protein, Quantitative 0.8, Pro-B-Type Natriuretic Peptide 4045H, Total Protein 6.1L, Albumin 2.8L, Globulin 3.3, Albumin/Globulin Ratio 0.8L Current Medications Medications (Trade) Dose Ordered Sig/Jesus Route PRN Reason Start Time Stop Time Status Last Admin Dose Admin Acetaminophen (Tylenol) 650 mg Q4H PRN ORAL For Pain 06/23/20 15:15 07/23/20 15:14 Acetaminophen/ Hydrocodone Bitart ([place] 5/325) 1 tab Q4H PRN ORAL Moderate Pain (Pain Scale 4-6) 06/26/20 21:30 07/03/20 21:29 06/28/20 09:41 Apixaban (Eliquis) 2.5 mg BID ORAL 06/23/20 18:00 09/21/20 17:59 06/29/20 08:18 Aspirin (ASA) 81 mg DAILY ORAL 06/24/20 09:00 08/08/20 08:59 06/29/20 08:18 Atorvastatin Calcium (Lipitor) 10 mg BEDTIME ORAL 06/23/20 21:00 09/21/20 20:59 06/28/20 21:25 Docusate Sodium (Colace) 100 mg THREE TIMES A DAY ORAL 06/23/20 18:00 07/23/20 17:59 06/29/20 08:18 Gabapentin (Neurontin) 100 mg BID ORAL 06/23/20 18:00 07/23/20 17:59 06/29/20 08:18 Hydralazine HCl (Apresoline) 25 mg EVERY 8 HOURS ORAL 06/23/20 22:00 09/21/20 21:59 06/26/20 20:52 Hydralazine HCl (Apresoline) 25 mg Q4H PRN ORAL bp over 160 syst 06/23/20 15:30 09/21/20 15:29 Ondansetron HCl (Zofran) 4 mg Q6H PRN IVP Nausea & Vomiting 06/23/20 20:00 07/23/20 19:59 06/28/20 03:20 Pantoprazole (Protonix) 40 mg EVERY 12 HOURS ORAL 06/23/20 21:00 07/23/20 20:59 06/29/20 08:18 Sevelamer Carbonate (Renvela) 800 mg BID ORAL 06/26/20 18:00 09/21/20 17:59 06/28/20 18:09 Vancomycin HCl ([facility] pharmacy to dose) 1 ea DAILY PRN MISC Per rx protocol 06/24/20 12:45 07/24/20 12:44 Assessment/Plan Assessment/Plan IMPRESSION: 1. Hyperkalemia. 2. Pulmonary edema. 3. Missed dialysis. 4. Diabetes mellitus. 5. Hypertension. 6. History of COPD. DISCUSSION: Continue HD Currently saturating well on room air. Discussed with Dr. Banegas. Yajaira Tse Omar Syed MD Jun 29, 2020 10:31
--- NOTE | 2020-06-29 11:03 | NUR ---
NURSE NOTES: Consent for Tunnel Catheter Placement on 06/30/2020 obtained via telephone by daughter Ruby Rocha
--- NOTE | 2020-06-29 11:28 | Diagnostic Imaging Report ---
Indications: Suspected tunneled dialysis catheter infection Technique: Sterile prepping and draping right chest. Local anesthesia with 1% lidocaine. Using gentle traction, the catheter was removed. Digital fluoroscopic spot radiographs document position of the catheter preremoval, and document complete removal of the catheter on the post removal images. The patient tolerated the procedure well, without immediate complication. Total fluoroscopy time 6.7 seconds Total dose 0.99 mGy Number of images: 2 Comparison: None. Findings: Preremoval images demonstrate a tunneled dialysis catheter in the expected position. Completion digital fluoroscopy spot radiograph documents complete removal of the tunneled dialysis catheter. Impression: Successful removal of tunneled dialysis catheter, as noted.
[2020-06-29 12:00] VITALS: BP 110/52
--- NOTE | 2020-06-29 12:54 | Infectious Diseases Prog Note ---
Assessment/Plan Assessment: COVID19 neg x1 (06/23n rapid COVID pCR neg) -CXR: Mild pulmonary vascular prominence. No evidence of alveolar edema. No focal consolidation. Afebrile No leukocytosis S. capitis bacteremia- likely HD cath infection as this is the same organism she was bacteremic and septic back in April 2020- it was treated at the time w/ 2 weeks of IV vancomycin but no recurrence of bacteremia --06/28 SP permacath removal; cath tip cx NTD --06/23 Bcx 2/4 GPC clusters; 06/25 Bcx NTD --2d echo: no vegetations seen Pyuria -u/a wbc tnct, nit -, leuk +3; ucx NTD Hyperkalemia, SP (due to missing HD sessions) hx of SEvere sepsis 2ry S. capitis bacteremia, persistent; 04/2020 SP Rx -likely HD line infection in the setting of sepsis -04/23 Bcx 1/4 Staph capitis ; 04/25 Bcx 1/4 Staph capitis; 04/27 Bcx Neg x4 (peripheral, HD line) -2d Echo: no vegetations seen Hx of L foot/ankle wound; no grossly infected- no OM on bone scan -04/28/20 Bone scan: No significant abnormality in the left heel to suggest osteomyelitis of the location of clinically described left heel wound. Mild bilateral abnormal uptake, as detailed above, likely reflecting degenerative changes -xray L foot/ankle: No acute findings in the left foot. -CRP 5.9, ESR 53 Dm2 HTN Asthma/COPD CVA w/ residual L side weakness s/p PPM asthma ESRD on HD (MWF) via permacath R upper chest GERD decubitus ulcer Afib Plan: -Continue IV Vancomycin #04/04 for S. capitis bacteremia and likely HD cath infection -05/10/20 SP IV Vancomycin # -05/05 SP Meropenem #4 -04/29 SP Cefepime #5 -04/25 SP Ceftriaxone #3 -04/23/20 SP Cefepime x1 -f/u cx -Monitor CBC/CMP, temperatures -f/u Bcx x2 -May need RASHAAD if recurrent bacteremia, febrile -Discussed with Dr Makenzie herman concern for HD cath infection as recurrence of bacteremia with same organisms in April despite treatment. Recommend removal and placing new catheter. Repeat Bcx are already not growth and patient is afebrile Thank you for this consultation. Will continue to follow along with you. Discussed with RN, Dr Banegas, Dr Stephenson. Subjective Allergies: Coded Allergies: PENICILLINS (Verified Allergy, Unknown, 04/23/20) Tolerated Cefepime 04/23/20 afebrile at [facility] Bcx NTD tunneled cath removed yesterday; plan for new one tomorrow Objective Last 24 Hour Vital Signs Date Time Temp Pulse Resp B/P (MAP) Pulse Ox O2 Delivery O2 Flow Rate FiO2 06/29/20 12:00 98.5 71 18 110/52 (71) 93 06/29/20 09:00 Room Air 06/29/20 08:00 98.3 60 19 108/46 (66) 92 06/29/20 05:20 101/47 06/29/20 04:00 98.2 60 18 101/47 (65) 92 06/29/20 00:00 99.0 60 18 109/49 (69) 93 06/28/20 21:00 Room Air 06/28/20 20:00 98.4 60 18 119/61 (80) 92 06/28/20 16:00 98.0 64 19 105/65 (78) 94 06/28/20 14:00 93/43 Height (Feet): 5 Height (Inches): 5.00 Weight (Pounds): 238 HEENT: Unremarkable. LUNGS: Decreased breath sounds bilaterally. ABDOMEN: Soft. EXTREMITIES: There is no edema. Microbiology Date/Time Source Procedure Growth Status 06/28/20 16:00 Chest Catheter Tip Culture - Preliminary NO GROWTH Resulted Laboratory Tests Test 06/28/20 15:00 06/29/20 06:10 Prothrombin Time 11.4 SEC (9.30-11.50) Prothromb Time International Ratio 1.0 (0.9-1.1) Activated Partial Thromboplast Time 28 SEC (23-33) White Blood Count 5.4 K/UL (4.8-10.8) Red Blood Count 3.22 M/UL (4.20-5.40) L Hemoglobin 9.6 G/DL (12.0-16.0) L Hematocrit 29.5 % (37.0-47.0) L Mean Corpuscular Volume 92 FL (80-99) Mean Corpuscular Hemoglobin 29.9 PG (27.0-31.0) Mean Corpuscular Hemoglobin Concent 32.6 G/DL (32.0-36.0) Red Cell Distribution Width 12.9 % (11.6-14.8) Platelet Count 108 K/UL (150-450) L Mean Platelet Volume 9.0 FL (6.5-10.1) Neutrophils (%) (Auto) 48.3 % (45.0-75.0) Lymphocytes (%) (Auto) 33.5 % (20.0-45.0) Monocytes (%) (Auto) 12.3 % (1.0-10.0) H Eosinophils (%) (Auto) 4.3 % (0.0-3.0) H Basophils (%) (Auto) 1.6 % (0.0-2.0) Sodium Level 137 MMOL/L (136-145) Potassium Level 4.2 MMOL/L (3.5-5.1) Chloride Level 101 MMOL/L (98-107) Carbon Dioxide Level 25 MMOL/L (21-32) Anion Gap 11 mmol/L (5-15) Blood Urea Nitrogen 29 mg/dL (7-18) H Creatinine 6.3 MG/DL (0.55-1.30) H Estimat Glomerular Filtration Rate 7.9 mL/min (>60) Glucose Level 106 MG/DL (74-106) Uric Acid 3.3 MG/DL (2.6-7.2) Calcium Level 9.0 MG/DL (8.5-10.1) Phosphorus Level 4.1 MG/DL (2.5-4.9) Magnesium Level 2.5 MG/DL (1.8-2.4) H Total Bilirubin 0.4 MG/DL (0.2-1.0) Aspartate Amino Transf (AST/SGOT) 18 U/L (15-37) Alanine Aminotransferase (ALT/SGPT) 18 U/L (12-78) Alkaline Phosphatase 57 U/L (46-116) C-Reactive Protein, Quantitative 0.8 mg/dL (0.00-0.90) Pro-B-Type Natriuretic Peptide 4045 pg/mL (0-125) H Total Protein 6.1 G/DL (6.4-8.2) L Albumin 2.8 G/DL (3.4-5.0) L Globulin 3.3 g/dL Albumin/Globulin Ratio 0.8 (1.0-2.7) L Current Medications Medications (Trade) Dose Ordered Sig/Jesus Route PRN Reason Start Time Stop Time Status Last Admin Dose Admin Acetaminophen (Tylenol) 650 mg Q4H PRN ORAL For Pain 06/23/20 15:15 07/23/20 15:14 Acetaminophen/ Hydrocodone Bitart ([place] 5/325) 1 tab Q4H PRN ORAL Moderate Pain (Pain Scale 4-6) 06/26/20 21:30 07/03/20 21:29 06/28/20 09:41 Apixaban (Eliquis) 2.5 mg BID ORAL 06/23/20 18:00 09/21/20 17:59 06/29/20 08:18 Aspirin (ASA) 81 mg DAILY ORAL 06/24/20 09:00 08/08/20 08:59 06/29/20 08:18 Atorvastatin Calcium (Lipitor) 10 mg BEDTIME ORAL 06/23/20 21:00 09/21/20 20:59 06/28/20 21:25 Docusate Sodium (Colace) 100 mg THREE TIMES A DAY ORAL 06/23/20 18:00 07/23/20 17:59 06/29/20 12:01 Gabapentin (Neurontin) 100 mg BID ORAL 06/23/20 18:00 07/23/20 17:59 06/29/20 08:18 Hydralazine HCl (Apresoline) 25 mg EVERY 8 HOURS ORAL 06/23/20 22:00 09/21/20 21:59 06/26/20 20:52 Hydralazine HCl (Apresoline) 25 mg Q4H PRN ORAL bp over 160 syst 06/23/20 15:30 09/21/20 15:29 Ondansetron HCl (Zofran) 4 mg Q6H PRN IVP Nausea & Vomiting 06/23/20 20:00 07/23/20 19:59 06/28/20 03:20 Pantoprazole (Protonix) 40 mg EVERY 12 HOURS ORAL 06/23/20 21:00 07/23/20 20:59 06/29/20 08:18 Sevelamer Carbonate (Renvela) 800 mg BID ORAL 06/26/20 18:00 09/21/20 17:59 06/28/20 18:09 Vancomycin HCl ([facility] pharmacy to dose) 1 ea DAILY PRN MISC Per rx protocol 06/24/20 12:45 07/24/20 12:44 Kathia Lei M.D. Jun 29, 2020 12:54
--- NOTE | 2020-06-29 14:19 | Surgery Progress Note ---
Surgery Progress Note Subjective Symptoms: improved, pain absent, tolerating diet, passing flatus, BM Objective Last 24 Hour Vital Signs Date Time Temp Pulse Resp B/P (MAP) Pulse Ox O2 Delivery O2 Flow Rate FiO2 06/29/20 14:00 110/52 06/29/20 12:00 98.5 71 18 110/52 (71) 93 06/29/20 09:00 Room Air 06/29/20 08:00 98.3 60 19 108/46 (66) 92 06/29/20 05:20 101/47 06/29/20 04:00 98.2 60 18 101/47 (65) 92 06/29/20 00:00 99.0 60 18 109/49 (69) 93 06/28/20 21:00 Room Air 06/28/20 20:00 98.4 60 18 119/61 (80) 92 06/28/20 16:00 98.0 64 19 105/65 (78) 94 I&O Intake and Output 06/28/20 06/29/20 19:00 07:00 Intake Total 480 ml Output Total 1 ml Balance 480 ml -1 ml Intake Oral 480 ml Stool Total 1 ml # Voids 1 Dressing: saturated Cardiovascular: RSR Respiratory: clear Abdomen: soft, non-tender, present bowel sounds Extremities: edema, no tenderness, no cyanosis Laboratory Tests Test 06/28/20 15:00 06/29/20 06:10 Prothrombin Time 11.4 SEC (9.30-11.50) Prothromb Time International Ratio 1.0 (0.9-1.1) Activated Partial Thromboplast Time 28 SEC (23-33) White Blood Count 5.4 K/UL (4.8-10.8) Red Blood Count 3.22 M/UL (4.20-5.40) L Hemoglobin 9.6 G/DL (12.0-16.0) L Hematocrit 29.5 % (37.0-47.0) L Mean Corpuscular Volume 92 FL (80-99) Mean Corpuscular Hemoglobin 29.9 PG (27.0-31.0) Mean Corpuscular Hemoglobin Concent 32.6 G/DL (32.0-36.0) Red Cell Distribution Width 12.9 % (11.6-14.8) Platelet Count 108 K/UL (150-450) L Mean Platelet Volume 9.0 FL (6.5-10.1) Neutrophils (%) (Auto) 48.3 % (45.0-75.0) Lymphocytes (%) (Auto) 33.5 % (20.0-45.0) Monocytes (%) (Auto) 12.3 % (1.0-10.0) H Eosinophils (%) (Auto) 4.3 % (0.0-3.0) H Basophils (%) (Auto) 1.6 % (0.0-2.0) Sodium Level 137 MMOL/L (136-145) Potassium Level 4.2 MMOL/L (3.5-5.1) Chloride Level 101 MMOL/L (98-107) Carbon Dioxide Level 25 MMOL/L (21-32) Anion Gap 11 mmol/L (5-15) Blood Urea Nitrogen 29 mg/dL (7-18) H Creatinine 6.3 MG/DL (0.55-1.30) H Estimat Glomerular Filtration Rate 7.9 mL/min (>60) Glucose Level 106 MG/DL (74-106) Uric Acid 3.3 MG/DL (2.6-7.2) Calcium Level 9.0 MG/DL (8.5-10.1) Phosphorus Level 4.1 MG/DL (2.5-4.9) Magnesium Level 2.5 MG/DL (1.8-2.4) H Total Bilirubin 0.4 MG/DL (0.2-1.0) Aspartate Amino Transf (AST/SGOT) 18 U/L (15-37) Alanine Aminotransferase (ALT/SGPT) 18 U/L (12-78) Alkaline Phosphatase 57 U/L (46-116) C-Reactive Protein, Quantitative 0.8 mg/dL (0.00-0.90) Pro-B-Type Natriuretic Peptide 4045 pg/mL (0-125) H Total Protein 6.1 G/DL (6.4-8.2) L Albumin 2.8 G/DL (3.4-5.0) L Globulin 3.3 g/dL Albumin/Globulin Ratio 0.8 (1.0-2.7) L Plan Problems: (1) Diabetic nephropathy (2) Cellulitis of left foot (3) Pacemaker (4) Anemia in chronic kidney disease (CKD) (5) History of CVA (cerebrovascular accident) (6) History of atrial fibrillation (7) COPD (chronic obstructive pulmonary disease) (8) Bradycardia (9) Diabetic nephropathy (10) Hypertensive kidney disease (11) Heel abrasion (12) Elevated troponin I level (13) Urinary tract infection due to Proteus (14) ESRD (end stage renal disease) (15) Volume overload (16) Hyperkalemia (17) Generalized weakness (18) Dyspnea (19) Symptomatic anemia (20) Acute on chronic renal failure (21) Anemia (22) HTN (hypertension) (23) Deep tissue injury Assessment & Plan: Pt presented on admission with Multiple Pressure injuries.Sacral DTPI noted over previously compromised area. Surrounding surgical scar. Base of Pressure Injury is indurated ,purpuric with Maroon Borders. Black discoloration with marginal erythema noted to R and L Buttocks. Linear area of hyperpigmentation noted sacral cleft. Darker skin tone without erythema or induration noted to R and L ischial tuberosities. L 1st metatarsal is black with small blood filled blister at tip of metatarsal.Web space of L 1st and L 2nd metatarsal is erythematous and macerated. Mild odor noted. Dry necrotic area noted to lateral aspect of L 5th metatarsal. Dry eschar lateral L foot (L)1cm x (W)1.5cm. Periwound is dry without erythema or fluctuance. Unstageable Pressure Injury L Heel(L)2.4cm x (W)3.5cm. Base of wound is necrotic with surrounding moist and pale skin,dry black borders. R 1st metatarsal is black. T heel is boggy, pale with dry peeling skin. Return visit to complete Skin assessment as pt was being dialyzed previous day.Pt is morbidly obese. Bilat breasts folds and abdominal folds are moist and malodorous MASD Buttocks including Bilat Ischial tuberosities. Affected areas are erythematous and denuded. Moisture Intertrigo cleft of buttocks. Full thickness Ulcer medial upper R thigh (L)1.4cm x (W)1 cm x (D)0.2cm. Base of wound is monique with scattered Biofilm, and macerated Borders. NO exudate noted. Periwound, skin is erythematous, moist and malodorous. An area of Hyperpigmentation noted to medial aspect of R thigh in close proximity to wound. Medial upper L thigh is erythematous ,denuded and malodorous. Tx.Plan: Apply Moisture Barrier Paste to buttocks, ischium, and Bilat medial upper thighs with each incontinence care. Cleanse wound medial upper L thigh with Saline. Apply Therahoney. Apply Moisture Barrier Paste periwound. Cover with Optifoam drsg. Change Daily and prn. Cleanse Sacral wound with Saline. Apply TheraHoney. Apply Moisture Barrier Paste Periwound. Cover with Optifoam drsg. Change every 3 days and prn. Apply Moisture Barrier Paste to R and L ischial tuberosities with each Incontinence care. wash L heel. apply betadine and cover with optifoam dressing Apply Cavilon Skin Barrier to R Heel. Cover with Optifoam drsg. Change every 7 days and prn. Reposition at least every 2hours or as tolerated. off-load heels with pillows. nutritional optimization DAILY ESTIMATED NEEDS: Needs based on ESRD on HD, wound obese 70.5kg abw 20-25 kcals/kg [id number] total kcals 1.8-2.5 IBW 56.8kg g protein/kg 102-142 g total protein Fluid per MD on HD NUTRITION DIAGNOSIS: Increased protein needs r/t renal dysfunction and wound healing as evidenced by pt w/ ESRD on HD, w/ L heel unstageable wound. CURRENT DIET:renal diet, no chicken PO DIET RECOMMENDATIONS: RENAL DIET/ texture per [employer] ADDITIONAL RECOMMENDATIONS: 1) Calibrated bedscale wt if adding P200 mattress + pump 2) Add NEPRO 1 tetra w/ meals w/ poor meal acceptance Prior adm w/ poor po intake 3) Wound care: continue SOLEDAD BID + Add Nephrovite x1 daily Vit C-> dosing per nephro 4) Monitor lytes and renal fxn Luis Alberto Cade Jun 29, 2020 14:19
[2020-06-29 16:00] VITALS: BP 115/61
--- NOTE | 2020-06-29 16:01 | Cardiac Electrophysiology PN ---
Assessment/Plan Assessment/Plan 1. AFIB, On Eliquis 2.5 bid 2. Hypertension, on hydralazine 25 bid 3. ESRD on HD via right chest permcath (removed now and will be getting a new one tomorrow). 4. Hx of left arm av shunt malfunctioning 5. Left chest DDD pacemaker 6. Hx of CVA non ambulatory with dementia 7. Severe calcific PAD with left foot decub ulcer Diabetes Asthma hx of CVA left weakness GERD decubitus ulcer Echocardiogram: Normal left ventricular chamber size, systolic function and wall motion to extent visualized. Left ventricular ejection fraction estimated to be 55%. Subjective Subjective Alert in NAD Had Right side PermCath removed yesterday and is scheduled for new Right side catheter tomorrow Objective Last 24 Hour Vital Signs Date Time Temp Pulse Resp B/P (MAP) Pulse Ox O2 Delivery O2 Flow Rate FiO2 06/29/20 14:00 110/52 06/29/20 12:00 98.5 71 18 110/52 (71) 93 06/29/20 09:00 Room Air 06/29/20 08:00 98.3 60 19 108/46 (66) 92 06/29/20 05:20 101/47 06/29/20 04:00 98.2 60 18 101/47 (65) 92 06/29/20 00:00 99.0 60 18 109/49 (69) 93 06/28/20 21:00 Room Air 06/28/20 20:00 98.4 60 18 119/61 (80) 92 06/28/20 16:00 98.0 64 19 105/65 (78) 94 Intake and Output 06/28/20 06/29/20 19:00 07:00 Intake Total 480 ml Output Total 1 ml Balance 480 ml -1 ml Intake Oral 480 ml Stool Total 1 ml # Voids 1 Laboratory Tests Test 06/29/20 06:10 White Blood Count 5.4 K/UL (4.8-10.8) Red Blood Count 3.22 M/UL (4.20-5.40) L Hemoglobin 9.6 G/DL (12.0-16.0) L Hematocrit 29.5 % (37.0-47.0) L Mean Corpuscular Volume 92 FL (80-99) Mean Corpuscular Hemoglobin 29.9 PG (27.0-31.0) Mean Corpuscular Hemoglobin Concent 32.6 G/DL (32.0-36.0) Red Cell Distribution Width 12.9 % (11.6-14.8) Platelet Count 108 K/UL (150-450) L Mean Platelet Volume 9.0 FL (6.5-10.1) Neutrophils (%) (Auto) 48.3 % (45.0-75.0) Lymphocytes (%) (Auto) 33.5 % (20.0-45.0) Monocytes (%) (Auto) 12.3 % (1.0-10.0) H Eosinophils (%) (Auto) 4.3 % (0.0-3.0) H Basophils (%) (Auto) 1.6 % (0.0-2.0) Sodium Level 137 MMOL/L (136-145) Potassium Level 4.2 MMOL/L (3.5-5.1) Chloride Level 101 MMOL/L (98-107) Carbon Dioxide Level 25 MMOL/L (21-32) Anion Gap 11 mmol/L (5-15) Blood Urea Nitrogen 29 mg/dL (7-18) H Creatinine 6.3 MG/DL (0.55-1.30) H Estimat Glomerular Filtration Rate 7.9 mL/min (>60) Glucose Level 106 MG/DL (74-106) Uric Acid 3.3 MG/DL (2.6-7.2) Calcium Level 9.0 MG/DL (8.5-10.1) Phosphorus Level 4.1 MG/DL (2.5-4.9) Magnesium Level 2.5 MG/DL (1.8-2.4) H Total Bilirubin 0.4 MG/DL (0.2-1.0) Aspartate Amino Transf (AST/SGOT) 18 U/L (15-37) Alanine Aminotransferase (ALT/SGPT) 18 U/L (12-78) Alkaline Phosphatase 57 U/L (46-116) C-Reactive Protein, Quantitative 0.8 mg/dL (0.00-0.90) Pro-B-Type Natriuretic Peptide 4045 pg/mL (0-125) H Total Protein 6.1 G/DL (6.4-8.2) L Albumin 2.8 G/DL (3.4-5.0) L Globulin 3.3 g/dL Albumin/Globulin Ratio 0.8 (1.0-2.7) L Microbiology Date/Time Source Procedure Growth Status 06/28/20 16:00 Chest Catheter Tip Culture - Preliminary NO GROWTH Resulted Objective HEENT: No JVD LUNGS: Clear CVS: RRR. Pacer left subclavian ABDOMEN: Soft EXT: Right Perm Cath is removed. Left arm AVF fistula Triston Franco MD Jun 29, 2020 16:01
--- NOTE | 2020-06-29 16:32 | Nephrology Progress Note ---
Assessment/Plan Problem List: (1) ESRD (end stage renal disease) (2) Volume overload (3) Hyperkalemia (4) Bradycardia (5) Pacemaker (6) Diabetic nephropathy Assessment ESRD (end stage renal disease), missed few sessions of hemodialysis Volume overload , Hyperkalemia other conditions: -. Diabetes with diabetic nephropathy and neuropathy. -. History of CVA with left weakness. -. History of atrial fibrillation. -. History of pacemaker. Plan June 29: Labs reviewed. Status quo. Dialyzed June 27. Due for dialysis June 30 tomorrow. Permacath removed yesterday and will be reinserted tomorrow prior to dialysis. Continue per consultants. June 28: Labs reviewed. Status quo. Dialyzed yesterday June 27. Discussed with ID. Patient bacteremic with the same organism of previous admission. Suggestion to remove the current permacath and replaced with a new one at the same time. PMD and vascular surgeon aware. Due for next dialysis on June 30. June 27: Lab reviewed. Status quo. Due for dialysis today. Stable from renal standpoint of view. Continue per PMD and consultants. June 26: Patient stable. Dialyzed yesterday. Labs reviewed. Due for dialysis tomorrow. Continue per vascular surgical recommendation. June 25: Clinically stable. Labs reviewed. Medication list reviewed. Due for dialysis today. Continue with same management. Patient received dialysis yesterday. Will attempt dialysis again tomorrow. Labs, medications reviewed. Continue per consultants. Subjective ROS Limited/Unobtainable: No Constitutional: Reports: malaise Objective Objective Last 24 Hour Vital Signs Date Time Temp Pulse Resp B/P (MAP) Pulse Ox O2 Delivery O2 Flow Rate FiO2 06/29/20 16:00 98.0 79 18 115/61 (79) 95 06/29/20 14:00 110/52 06/29/20 12:00 98.5 71 18 110/52 (71) 93 06/29/20 09:00 Room Air 06/29/20 08:00 98.3 60 19 108/46 (66) 92 06/29/20 05:20 101/47 06/29/20 04:00 98.2 60 18 101/47 (65) 92 06/29/20 00:00 99.0 60 18 109/49 (69) 93 06/28/20 21:00 Room Air 06/28/20 20:00 98.4 60 18 119/61 (80) 92 Intake and Output 06/28/20 06/29/20 19:00 07:00 Intake Total 480 ml Output Total 1 ml Balance 480 ml -1 ml Intake Oral 480 ml Stool Total 1 ml # Voids 1 Laboratory Tests 06/29/20 06:10: White Blood Count 5.4, Red Blood Count 3.22L, Hemoglobin 9.6L, Hematocrit 29.5L, Mean Corpuscular Volume 92, Mean Corpuscular Hemoglobin 29.9, Mean Corpuscular Hemoglobin Concent 32.6, Red Cell Distribution Width 12.9, Platelet Count 108L, Mean Platelet Volume 9.0, Neutrophils (%) (Auto) 48.3, Lymphocytes (%) (Auto) 33.5, Monocytes (%) (Auto) 12.3H, Eosinophils (%) (Auto) 4.3H, Basophils (%) (Auto) 1.6, Sodium Level 137, Potassium Level 4.2, Chloride Level 101, Carbon Dioxide Level 25, Anion Gap 11, Blood Urea Nitrogen 29H, Creatinine 6.3H, Estimat Glomerular Filtration Rate 7.9, Glucose Level 106, Uric Acid 3.3, Calcium Level 9.0, Phosphorus Level 4.1, Magnesium Level 2.5H, Total Bilirubin 0.4, Aspartate Amino Transf (AST/SGOT) 18, Alanine Aminotransferase (ALT/SGPT) 18, Alkaline Phosphatase 57, C-Reactive Protein, Quantitative 0.8, Pro-B-Type Natriuretic Peptide 4045H, Total Protein 6.1L, Albumin 2.8L, Globulin 3.3, Albumin/Globulin Ratio 0.8L Height (Feet): 5 Height (Inches): 5.00 Weight (Pounds): 238 General Appearance: no apparent distress Cardiovascular: normal rate Respiratory/Chest: decreased breath sounds Abdomen: soft Objective No change Manas Stephenson MD Jun 29, 2020 16:32
--- NOTE | 2020-06-29 19:54 | NUR ---
NURSE HAND-OFF: Important Events on Shift:consent for tunnel catheter placement obtained Patient Status: stable Diet: renal diet Pending Orders: n/a Pending Results/Labs:n/a Pending MD notification:n/a Latest Vital Signs: Temperature 98.0 , Pulse 79 , B/P 115 /61 , Respiratory Rate 18 , O2 SAT 95 , Room Air, O2 Flow Rate . Vital Sign Comment: stable Latest Srivastava Fall Score: 50 Fall Risk: High Risk Safety Measures: Call light Within Reach, Bed Alarm Zone 1, Side Rails Side Rails x2, Bed position Low and Locked. Fall Precautions: Yellow Socks Yellow Gown Door Sign Patient Fall Education Report given to VIKAS Anaya.
[2020-06-29 20:00] VITALS: BP 101/54
--- NOTE | 2020-06-29 22:31 | NUR ---
NURSE NOTES: Called [facility] for patient's schedule dialysis tomorrow. Spoke with Geovanna and to tell hemodialysis nurse to call RN first to make sure that patient has the tunnel catheter before coming in.
[2020-06-30] VITALS: BP 118/63
[2020-06-30 04:00] VITALS: BP 110/55
[2020-06-30] MEDS: HydrALAZINE 25mg tab ORAL SCH ×3 (06:00→21:37)
--- NOTE | 2020-06-30 06:41 | NUR ---
NURSE HAND-OFF: Important Events on Shift:Called [facility] for todays's schedule after tunnel placement Patient Status: Stable and forgetful Diet: Renal Pending Orders: AM lab Pending Results/Labs: Alidao random Pending MD notification: Latest Vital Signs: Temperature 98.2 , Pulse 60 , B/P 110 /55 , Respiratory Rate 18 , O2 SAT 93 , Room Air, O2 Flow Rate . Vital Sign Comment: Latest Srivastava Fall Score: 50 Fall Risk: High Risk Safety Measures: Call light Within Reach, Bed Alarm Zone 1, Side Rails Side Rails x2, Bed position Low and Locked. Fall Precautions: Yellow Socks Yellow Gown Door Sign Patient Fall Education
--- NOTE | 2020-06-30 07:23 | NUR ---
HAND-OFF: Report given to VIKAS Morales.
--- NOTE | 2020-06-30 07:31 | NUR ---
NURSE NOTES: Report received from VIKAS Anaya. Patient seen lying in bed, awake, alert, and oriented. With HOB elevated, currently on room air, no s/sx of SOB/Distress, no c/o any pain or gi/gu discomfort. Patient with an IV site located on RFA gauge 18, asymptomatic, inplace and intact. For Tunnel Catheter placement scheduled today, consent obtained. Bed placed on lowest and locked position, call light placed within reach and will continue to closely monitor.
[2020-06-30 08:00] VITALS: BP 121/51
--- NOTE | 2020-06-30 08:30 | Nephrology Progress Note ---
Assessment/Plan Problem List: (1) ESRD (end stage renal disease) (2) Volume overload (3) Hyperkalemia (4) Bradycardia (5) Pacemaker (6) Diabetic nephropathy Assessment ESRD (end stage renal disease), missed few sessions of hemodialysis Volume overload , Hyperkalemia other conditions: -. Diabetes with diabetic nephropathy and neuropathy. -. History of CVA with left weakness. -. History of atrial fibrillation. -. History of pacemaker. Plan June 30: Patient due placement of permacath today followed by dialysis. Continue with same management. June 29: Labs reviewed. Status quo. Dialyzed June 27. Due for dialysis June 30 tomorrow. Permacath removed yesterday and will be reinserted tomorrow prior to dialysis. Continue per consultants. June 28: Labs reviewed. Status quo. Dialyzed yesterday June 27. Discussed with ID. Patient bacteremic with the same organism of previous admission. Suggestion to remove the current permacath and replaced with a new one at the same time. PMD and vascular surgeon aware. Due for next dialysis on June 30. June 27: Lab reviewed. Status quo. Due for dialysis today. Stable from renal standpoint of view. Continue per PMD and consultants. June 26: Patient stable. Dialyzed yesterday. Labs reviewed. Due for dialysis tomorrow. Continue per vascular surgical recommendation. June 25: Clinically stable. Labs reviewed. Medication list reviewed. Due for dialysis today. Continue with same management. Patient received dialysis yesterday. Will attempt dialysis again tomorrow. Labs, medications reviewed. Continue per consultants. Subjective ROS Limited/Unobtainable: No Constitutional: Reports: malaise Objective Objective Last 24 Hour Vital Signs Date Time Temp Pulse Resp B/P (MAP) Pulse Ox O2 Delivery O2 Flow Rate FiO2 06/30/20 06:00 110/55 06/30/20 04:00 98.2 60 18 110/55 (73) 93 06/30/20 00:00 98.1 60 18 118/63 (81) 93 06/29/20 21:52 101/54 06/29/20 21:00 Room Air 06/29/20 20:00 97.3 60 18 101/54 (70) 94 06/29/20 16:00 98.0 79 18 115/61 (79) 95 06/29/20 14:00 110/52 06/29/20 12:00 98.5 71 18 110/52 (71) 93 06/29/20 09:00 Room Air Intake and Output 06/29/20 06/30/20 19:00 07:00 Intake Total 1000 ml 360 ml Balance 1000 ml 360 ml Other 1000 ml 360 ml Laboratory Tests 06/30/20 06:15: Random Vancomycin Level 24.7 Height (Feet): 5 Height (Inches): 5.00 Weight (Pounds): 238 General Appearance: no apparent distress Cardiovascular: normal rate Respiratory/Chest: decreased breath sounds Abdomen: soft Objective No change Manas Stephenson MD Jun 30, 2020 08:30
[2020-06-30] MEDS: Docusate 100mg cap ORAL SCH ×3 (08:59→18:02)
[2020-06-30] MEDS: Renvela 800mg Pkt ORAL SCH ×2 (09:00→18:00)
[2020-06-30] MEDS: Eliquis 2.5mg tablet ORAL SCH ×2 (09:00→18:02)
[2020-06-30] MEDS: Aspirin Baby 81mg ORAL SCH (09:00)
--- NOTE | 2020-06-30 10:37 | Pulmonology Progress Note ---
Subjective ROS Limited/Unobtainable: No Interval Events: None new Constitutional: Reports: no symptoms HEENT: Repors: no symptoms Respiratory: Reports: no symptoms Cardiovascular: Reports: no symptoms Gastrointestinal/Abdominal: Reports: no symptoms Genitourinary: Reports: no symptoms Allergies: Coded Allergies: PENICILLINS (Verified Allergy, Unknown, 04/23/20) Tolerated Cefepime 04/23/20 Objective Last 24 Hour Vital Signs Date Time Temp Pulse Resp B/P (MAP) Pulse Ox O2 Delivery O2 Flow Rate FiO2 06/30/20 09:00 Room Air 06/30/20 08:00 97.4 60 19 121/51 (74) 93 06/30/20 06:00 110/55 06/30/20 04:00 98.2 60 18 110/55 (73) 93 06/30/20 00:00 98.1 60 18 118/63 (81) 93 06/29/20 21:52 101/54 06/29/20 21:00 Room Air 06/29/20 20:00 97.3 60 18 101/54 (70) 94 06/29/20 16:00 98.0 79 18 115/61 (79) 95 06/29/20 14:00 110/52 06/29/20 12:00 98.5 71 18 110/52 (71) 93 Intake and Output 06/29/20 06/30/20 19:00 07:00 Intake Total 1000 ml 360 ml Balance 1000 ml 360 ml Other 1000 ml 360 ml General Appearance: WD/WN HEENT: normocephalic Respiratory: chest wall non-tender Cardiovascular: normal peripheral pulses Microbiology Date/Time Source Procedure Growth Status 06/28/20 16:00 Chest Catheter Tip Culture - Preliminary NO GROWTH Resulted Laboratory Tests 06/30/20 06:15: Random Vancomycin Level 24.7 Current Medications Medications (Trade) Dose Ordered Sig/Jesus Route PRN Reason Start Time Stop Time Status Last Admin Dose Admin Acetaminophen (Tylenol) 650 mg Q4H PRN ORAL For Pain 06/23/20 15:15 07/23/20 15:14 Acetaminophen/ Hydrocodone Bitart (Cowen 5/325) 1 tab Q4H PRN ORAL Moderate Pain (Pain Scale 4-6) 06/26/20 21:30 07/03/20 21:29 06/28/20 09:41 Apixaban (Eliquis) 2.5 mg BID ORAL 06/23/20 18:00 09/21/20 17:59 06/29/20 17:12 Aspirin (ASA) 81 mg DAILY ORAL 06/24/20 09:00 08/08/20 08:59 06/29/20 08:18 Atorvastatin Calcium (Lipitor) 10 mg BEDTIME ORAL 06/23/20 21:00 09/21/20 20:59 06/29/20 21:49 Docusate Sodium (Colace) 100 mg THREE TIMES A DAY ORAL 06/23/20 18:00 07/23/20 17:59 06/30/20 08:59 Gabapentin (Neurontin) 100 mg BID ORAL 06/23/20 18:00 07/23/20 17:59 06/30/20 08:59 Hydralazine HCl (Apresoline) 25 mg EVERY 8 HOURS ORAL 06/23/20 22:00 09/21/20 21:59 06/26/20 20:52 Hydralazine HCl (Apresoline) 25 mg Q4H PRN ORAL bp over 160 syst 06/23/20 15:30 09/21/20 15:29 Ondansetron HCl (Zofran) 4 mg Q6H PRN IVP Nausea & Vomiting 06/23/20 20:00 07/23/20 19:59 06/28/20 03:20 Pantoprazole (Protonix) 40 mg EVERY 12 HOURS ORAL 06/23/20 21:00 07/23/20 20:59 06/30/20 08:59 Sevelamer Carbonate (Renvela) 800 mg BID ORAL 06/26/20 18:00 09/21/20 17:59 06/28/20 18:09 Vancomycin HCl ([facility] pharmacy to dose) 1 ea DAILY PRN MISC Per rx protocol 06/24/20 12:45 07/24/20 12:44 Assessment/Plan Assessment/Plan IMPRESSION: 1. Hyperkalemia. 2. Pulmonary edema. 3. Missed dialysis. 4. Diabetes mellitus. 5. Hypertension. 6. History of COPD. DISCUSSION: Continue HD Currently saturating well on room air. Discussed with Dr. Banegas. Yajaira Tse Omar Syed MD Jun 30, 2020 10:37
[2020-06-30 12:00] VITALS: BP 131/50
--- NOTE | 2020-06-30 14:32 | Cardiac Electrophysiology PN ---
Assessment/Plan Assessment/Plan 1. AFIB, On Eliquis 2.5 bid 2. Hypertension, on hydralazine 25 bid. EF 55%. 3. ESRD on HD via right chest permcath (removed now and will be getting a new one ). 4. Hx of left arm av shunt malfunctioning 5. Left chest DDD pacemaker 6. Hx of CVA non ambulatory with dementia 7. Severe calcific PAD with left foot decub ulcer 8. Diabetes 9. Asthma 10. hx of CVA left weakness 11.GERD 12. decubitus ulcer Subjective Subjective Alert in NAD. Had Right side PermCath removed and is scheduled for new Right side catheter today but still not done yet Objective Last 24 Hour Vital Signs Date Time Temp Pulse Resp B/P (MAP) Pulse Ox O2 Delivery O2 Flow Rate FiO2 06/30/20 13:38 131/50 06/30/20 12:00 98.1 70 18 131/50 (77) 94 06/30/20 09:00 Room Air 06/30/20 08:00 97.4 60 19 121/51 (74) 93 06/30/20 06:00 110/55 06/30/20 04:00 98.2 60 18 110/55 (73) 93 06/30/20 00:00 98.1 60 18 118/63 (81) 93 06/29/20 21:52 101/54 06/29/20 21:00 Room Air 06/29/20 20:00 97.3 60 18 101/54 (70) 94 06/29/20 16:00 98.0 79 18 115/61 (79) 95 Intake and Output 06/29/20 06/30/20 19:00 07:00 Intake Total 1000 ml 360 ml Balance 1000 ml 360 ml Other 1000 ml 360 ml Laboratory Tests Test 06/30/20 06:15 Random Vancomycin Level 24.7 ug/mL Microbiology Date/Time Source Procedure Growth Status 06/28/20 16:00 Chest Catheter Tip Culture - Preliminary NO GROWTH AFTER 24 HOURS Resulted Objective HEENT: No JVD LUNGS: Clear CVS: RRR. Pacer left subclavian ABDOMEN: Soft EXT: Right Perm Cath is removed. Left arm AVF fistula Triston Franco MD Jun 30, 2020 14:32
--- NOTE | 2020-06-30 15:58 | NUR ---
CASE MANAGEMENT:REVIEW SI;TUNNEL CATH PLACEMENT TODAY HYPERKALEMIA. ESRD on HD. DM. BACTEREMIA. 98.2 70 19 131/50 93% ON RA IS;ASA PO QD HYDRALAZINE PO Q8 PROTONIX PO Q12 LIPITOR PO HS GABAPENTIN PO BID ELIQUIS PO BID MED SURG STATUS DCP;FROM HOME
[2020-06-30 16:00] VITALS: BP_SYST 121; BP_SYST 135; BP_DIAS 58; BP_DIAS 71
--- NOTE | 2020-06-30 16:06 | Surgery Progress Note ---
Surgery Progress Note Subjective Symptoms: improved, tolerating diet Additional Comments plan for HD cath today discussed with nephrology discussed with IR Objective Last 24 Hour Vital Signs Date Time Temp Pulse Resp B/P (MAP) Pulse Ox O2 Delivery O2 Flow Rate FiO2 06/30/20 13:38 131/50 06/30/20 12:00 98.1 70 18 131/50 (77) 94 06/30/20 09:00 Room Air 06/30/20 08:00 97.4 60 19 121/51 (74) 93 06/30/20 06:00 110/55 06/30/20 04:00 98.2 60 18 110/55 (73) 93 06/30/20 00:00 98.1 60 18 118/63 (81) 93 06/29/20 21:52 101/54 06/29/20 21:00 Room Air 06/29/20 20:00 97.3 60 18 101/54 (70) 94 I&O Intake and Output 06/29/20 06/30/20 19:00 07:00 Intake Total 1000 ml 360 ml Balance 1000 ml 360 ml Other 1000 ml 360 ml Dressing: dry Wound: clean Cardiovascular: RSR Respiratory: clear Abdomen: soft, non-tender, present bowel sounds Extremities: no edema, no tenderness, no cyanosis Laboratory Tests Test 06/30/20 06:15 Random Vancomycin Level 24.7 ug/mL Plan Problems: (1) Diabetic nephropathy (2) Cellulitis of left foot (3) Pacemaker (4) Anemia in chronic kidney disease (CKD) (5) History of CVA (cerebrovascular accident) (6) History of atrial fibrillation (7) COPD (chronic obstructive pulmonary disease) (8) Bradycardia (9) Diabetic nephropathy (10) Hypertensive kidney disease (11) Heel abrasion (12) Elevated troponin I level (13) Urinary tract infection due to Proteus (14) ESRD (end stage renal disease) Assessment & Plan: plan HD cath insertion resume HD per nepro (15) Volume overload (16) Hyperkalemia (17) Generalized weakness (18) Dyspnea (19) Symptomatic anemia (20) Acute on chronic renal failure (21) Anemia (22) HTN (hypertension) (23) Deep tissue injury Assessment & Plan: Pt presented on admission with Multiple Pressure injuries.Sacral DTPI noted over previously compromised area. Surrounding surgical scar. Base of Pressure Injury is indurated ,purpuric with Maroon Borders. Black discoloration with marginal erythema noted to R and L Buttocks. Linear area of hyperpigmentation noted sacral cleft. Darker skin tone without erythema or induration noted to R and L ischial tuberosities. L 1st metatarsal is black with small blood filled blister at tip of metatarsal.W eb space of L 1st and L 2nd metatarsal is erythematous and macerated. Mild odor noted. Dry necrotic area noted to lateral aspect of L 5th metatarsal. Dry eschar lateral L foot (L)1cm x (W)1.5cm. Periwound is dry without erythema or fluctuance. Unstageable Pressure Injury L Heel(L)2.4cm x (W)3.5cm. Base of wound is necrotic with surrounding moist and pale skin,dry black borders. R 1st metatarsal is black. T heel is boggy, pale with dry peeling skin. Return visit to complete Skin assessment as pt was being dialyzed previous day.Pt is morbidly obese. Bilat breasts folds and abdominal folds are moist and malodorous MASD Buttocks including Bilat Ischial tuberosities. Affected areas are erythematous and denuded. Moisture Intertrigo hardy cleft of buttocks. Full thickness Ulcer medial upper R thigh (L)1.4cm x (W)1 cm x (D)0.2cm. Base of wound is monique with scattered Biofilm, and macerated Borders. NO exudate noted. Periwound, skin is erythematous, moist and malodorous. An area of Hyperpigmentation noted to medial aspect of R thigh in close proximity to wound. Medial upper L thigh is erythematous ,denuded and malodorous. Tx.Plan: Apply Moisture Barrier Paste to buttocks, ischium, and Bilat medial upper thighs with each incontinence care. Cleanse wound medial upper L thigh with Saline. Apply Therahoney. Apply Moisture Barrier Paste periwound. Cover with Optifoam drsg. Change Daily and prn. Cleanse Sacral wound with Saline. Apply TheraHoney. Apply Moisture Barrier Paste Periwound. Cover with Optifoam drsg. Change every 3 days and prn. Apply Moisture Barrier Paste to R and L ischial tuberosities with each Incontinence care. wash L heel. apply betadine and cover with optifoam dressing Apply Cavilon Skin Barrier to R Heel. Cover with Optifoam drsg. Change every 7 days and prn. Reposition at least every 2hours or as tolerated. off-load heels with pillows. nutritional optimization DAILY ESTIMATED NEEDS: Needs based on ESRD on HD, wound obese 70.5kg abw 20-25 kcals/kg [id number] total kcals 1.8-2.5 IBW 56.8kg g protein/kg 102-142 g total protein Fluid per MD on HD NUTRITION DIAGNOSIS: Increased protein needs r/t renal dysfunction and wound healing as evidenced by pt w/ ESRD on HD, w/ L heel unstageable wound. CURRENT DIET:renal diet, no chicken PO DIET RECOMMENDATIONS: RENAL DIET/ texture per [employer] ADDITIONAL RECOMMENDATIONS: 1) Calibrated bedscale wt if adding P200 mattress + pump 2) Add NEPRO 1 tetra w/ meals w/ poor meal acceptance Prior adm w/ poor po intake 3) Wound care: continue SOLEDAD BID + Add Nephrovite x1 daily Vit C-> dosing per nephro 4) Monitor lytes and renal fxn Luis Alberto Cade Jun 30, 2020 16:06
[2020-06-30] MEDS ORDERED: Lidocaine 1% Plain 30 ml INJ PRN (16:31)
[2020-06-30] MEDS ORDERED: Heparin1,000 units/500ml Premix(Conc:2 units/ml) IV PRN (16:31)
--- NOTE | 2020-06-30 17:07 | General Progress Note ---
Subjective Allergies: Coded Allergies: PENICILLINS (Verified Allergy, Unknown, 04/23/20) Tolerated Cefepime 04/23/20 Objective Last 24 Hour Vital Signs Date Time Temp Pulse Resp B/P (MAP) Pulse Ox O2 Delivery O2 Flow Rate FiO2 06/30/20 16:00 98.1 61 18 135/58 (83) 98 06/30/20 16:00 98.0 81 18 121/71 (88) 96 06/30/20 13:38 131/50 06/30/20 12:00 98.1 70 18 131/50 (77) 94 06/30/20 09:00 Room Air 06/30/20 08:00 97.4 60 19 121/51 (74) 93 06/30/20 06:00 110/55 06/30/20 04:00 98.2 60 18 110/55 (73) 93 06/30/20 00:00 98.1 60 18 118/63 (81) 93 06/29/20 21:52 101/54 06/29/20 21:00 Room Air 06/29/20 20:00 97.3 60 18 101/54 (70) 94 Intake and Output 06/29/20 06/30/20 19:00 07:00 Intake Total 1000 ml 360 ml Balance 1000 ml 360 ml Other 1000 ml 360 ml Laboratory Tests 06/30/20 06:15: Random Vancomycin Level 24.7 Height (Feet): 5 Height (Inches): 5.00 Weight (Pounds): 238 Assessment/Plan Status: stable Assessment/Plan: S: I am ok O: seems comfortable, no sob or cp PHYSICAL EXAMINATION: . HEAD AND NECK: Atraumatic and normocephalic. CHEST: Clear to auscultation. HEART: S1, S2. Regular rate and rhythm. Bradycardic. MUSCULOSKELETAL: No gross lateralized motor deficit, paraparesis. stage 3 decubitus wound in calcaneal region.NEUROLOGIC: The patient is awake and alert x 2. LABORATORY AND DIAGNOSTIC DATA: Labs dated 06/29/20 reviewed Meds: reviwed and reconciled in chart ASSESSMENT: 1. Sepsis with Staph 2. hyperKalemia and Missed HD sessions 2. Decubitus wound, enlarging and infected. 3. End-stage renal disease, on temporary PermCath hemodialysis access. 2. Paroxysmal atrial fibrillation, rate is stable. 3. Diabetes type 2. 4. Hypertension. 5. Hyperlipidemia. 6. CVA-history. 7. Dementia. 8. Gastrointestinal and deep vein thrombosis prophylaxes. 9. Pain management Plan: HD- per Nephrology Nephrol-Critical care and vascular services consulted. Agree with Telemetry admission consult SW to discuss options to avoid future delays in outpatient HD Negative blood culture Discussion: D/w ID , given the initial bacteremia with Staph Capisits in this patient with long standing HD-Permcath in place. There is moderte risk for underlying line infection. Will proceed with line Extraction. Also, D/w cardiology ( Dr Franco) on Jun 29 for risk assessment for possible infective endocarditis workup . D/w Daughter on Jun 28 S/P extraction of HD access proceed with insertion of new one D/w Dr Stephenson in detailed Danie Banegas MD Jun 30, 2020 17:07
--- NOTE | 2020-06-30 17:40 | Pre-Procedure Note/Attestation ---
Pre-Procedure Note/Attestation Complete Prior to Procedure Planned Procedure: not applicable Procedure Narrative: farhat catheter Indications for Procedure Pre-Operative Diagnosis: renal failure Attestation I attest that I discussed the nature of the procedure; its benefits; risks and complications; and alternatives (and the risks and benefits of such alternatives), prior to the procedure, with the patient (or the patient's legal insurance healthcare representative). I attest that, if there was a reasonable possibility of needing a blood transfusion, the patient (or the patient's legal insurance healthcare representative) was given the [facility] standardized written summary, pursuant to the Alvaro Judit Blood Safety Act ([place] Health and Safety Code # 1645, as amended). I attest that I re-evaluated the patient just prior to the surgery and that there has been no change in the patient's H&P, except as documented below: Mello Chaudhry MD Jun 30, 2020 17:40
--- NOTE | 2020-06-30 17:41 | Brief Operative Note ---
Immediate Post Operative Note Operative Note Pre-op Diagnosis: renal failure Procedure: R GERI dougherty Post-op Diagnosis: same as pre-op Surgeon: Manny Chaudhry Anesthesia: local Specimen: none Complications: none Fluids: none Implant(s) used?: No Mello Chaudhry MD Jun 30, 2020 17:41
--- NOTE | 2020-06-30 17:59 | Infectious Diseases Prog Note ---
Assessment/Plan Assessment: COVID19 neg x1 (06/23n rapid COVID pCR neg) -CXR: Mild pulmonary vascular prominence. No evidence of alveolar edema. No focal consolidation. Afebrile No leukocytosis S. capitis bacteremia- likely HD cath infection as this is the same organism she was bacteremic and septic back in April 2020- it was treated at the time w/ 2 weeks of IV vancomycin but no recurrence of bacteremia --06/30 SP R IJV farhat --06/28 SP permacath removal; cath tip cx NTD --06/23 Bcx 2/4 GPC clusters; 06/25 Bcx NTD --2d echo: no vegetations seen Pyuria -u/a wbc tnct, nit -, leuk +3; ucx NTD Hyperkalemia, SP (due to missing HD sessions) hx of SEvere sepsis 2ry S. capitis bacteremia, persistent; 04/2020 SP Rx -likely HD line infection in the setting of sepsis -04/23 Bcx 1/4 Staph capitis ; 04/25 Bcx 1/4 Staph capitis; 04/27 Bcx Neg x4 (peripheral, HD line) -2d Echo: no vegetations seen Hx of L foot/ankle wound; no grossly infected- no OM on bone scan -04/28/20 Bone scan: No significant abnormality in the left heel to suggest osteomyelitis of the location of clinically described left heel wound. Mild bilateral abnormal uptake, as detailed above, likely reflecting degenerative changes -xray L foot/ankle: No acute findings in the left foot. 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 capitis bacteremia and likely HD cath infection -05/10/20 SP IV Vancomycin #18 -05/05 SP Meropenem #4 -04/29 SP Cefepime #5 -04/25 SP Ceftriaxone #3 -04/23/20 SP Cefepime x1 -f/u cx -Monitor CBC/CMP, temperatures -f/u Bcx x2 -May need RASHAAD if recurrent bacteremia, febrile Thank you for this consultation. Will continue to follow along with you. Discussed with RN, Dr ReDr Seema licona. Subjective Allergies: Coded Allergies: PENICILLINS (Verified Allergy, Unknown, 04/23/20) Tolerated Cefepime 04/23/20 afebrile repeawt bcx and cath tip cx NTD Objective Last 24 Hour Vital Signs Date Time Temp Pulse Resp B/P (MAP) Pulse Ox O2 Delivery O2 Flow Rate FiO2 06/30/20 16:00 98.1 61 18 135/58 (83) 98 06/30/20 16:00 98.0 81 18 121/71 (88) 96 06/30/20 13:38 131/50 06/30/20 12:00 98.1 70 18 131/50 (77) 94 06/30/20 09:00 Room Air 06/30/20 08:00 97.4 60 19 121/51 (74) 93 06/30/20 06:00 110/55 06/30/20 04:00 98.2 60 18 110/55 (73) 93 06/30/20 00:00 98.1 60 18 118/63 (81) 93 06/29/20 21:52 101/54 06/29/20 21:00 Room Air 06/29/20 20:00 97.3 60 18 101/54 (70) 94 Height (Feet): 5 Height (Inches): 5.00 Weight (Pounds): 238 HEENT: Unremarkable. LUNGS: Decreased breath sounds bilaterally. ABDOMEN: Soft. EXTREMITIES: There is no edema. Microbiology Date/Time Source Procedure Growth Status 06/28/20 16:00 Chest Catheter Tip Culture - Preliminary NO GROWTH AFTER 24 HOURS Resulted Laboratory Tests Test 06/30/20 06:15 Random Vancomycin Level 24.7 ug/mL Current Medications Medications (Trade) Dose Ordered Sig/Jesus Route PRN Reason Start Time Stop Time Status Last Admin Dose Admin Acetaminophen (Tylenol) 650 mg Q4H PRN ORAL For Pain 06/23/20 15:15 07/23/20 15:14 Acetaminophen/ Hydrocodone Bitart ([place] 5/325) 1 tab Q4H PRN ORAL Moderate Pain (Pain Scale 4-6) 06/26/20 21:30 07/03/20 21:29 06/28/20 09:41 Apixaban (Eliquis) 2.5 mg BID ORAL 06/23/20 18:00 09/21/20 17:59 06/29/20 17:12 Aspirin (ASA) 81 mg DAILY ORAL 06/24/20 09:00 08/08/20 08:59 06/29/20 08:18 Atorvastatin Calcium (Lipitor) 10 mg BEDTIME ORAL 06/23/20 21:00 09/21/20 20:59 06/29/20 21:49 Docusate Sodium (Colace) 100 mg THREE TIMES A DAY ORAL 06/23/20 18:00 07/23/20 17:59 06/30/20 13:39 Gabapentin (Neurontin) 100 mg BID ORAL 06/23/20 18:00 07/23/20 17:59 06/30/20 08:59 Heparin Sodium/ Sodium Chloride (Heparin 1000 units/500ml Premix) 1,000 unit ONCE PRN IV PROCEDURE 06/30/20 16:31 06/30/20 23:59 Hydralazine HCl (Apresoline) 25 mg EVERY 8 HOURS ORAL 06/23/20 22:00 09/21/20 21:59 06/30/20 13:38 Hydralazine HCl (Apresoline) 25 mg Q4H PRN ORAL bp over 160 syst 06/23/20 15:30 09/21/20 15:29 Lidocaine HCl (Xylocaine 1% 30ml) 30 ml ONCE PRN INJ PROCEDURE 06/30/20 16:31 06/30/20 23:59 Ondansetron HCl (Zofran) 4 mg Q6H PRN IVP Nausea & Vomiting 06/23/20 20:00 07/23/20 19:59 06/28/20 03:20 Pantoprazole (Protonix) 40 mg EVERY 12 HOURS ORAL 06/23/20 21:00 07/23/20 20:59 06/30/20 08:59 Sevelamer Carbonate (Renvela) 800 mg BID ORAL 06/26/20 18:00 09/21/20 17:59 06/28/20 18:09 Vancomycin HCl (Vanco pharmacy to dose) 1 ea DAILY PRN MISC Per rx protocol 06/24/20 12:45 07/24/20 12:44 Kathia Lei M.D. Jun 30, 2020 17:59
--- NOTE | 2020-06-30 18:07 | NUR ---
RADIOLOGY NOTE: RIJ 3L ILAN PLACED
--- NOTE | 2020-06-30 18:09 | NUR ---
NURSE NOTES: Reached out to Radiology earlier in regards to status of Tunneled Dialysis Catheter Placement, was informed of inability to proceed with procedure. Notified Dr. Stephenson and Dr. Cade. Order for non tunneled dialysis catheter placement was done by Dr. Cade. Procedure was done by Dr. Meol from Radiology. A three lumen catheter was placed on right intrajugular. Catheter site asymptomatic, inplace and intact. Patient in stable condition. Will continue to monitor for any changes of condition.
--- NOTE | 2020-06-30 19:12 | Diagnostic Imaging Report ---
Indication: Post central line placement Technique: Procedure performed at bedside. Procedural timeout performed. Total sterile technique, including sterile probe cover and sterile gel, sterile gloves, hand hygiene, hat, mask, sterile gown, large sterile drape, and preparation with 2% chlorhexidine utilized. Local anesthesia with 1% lidocaine. Under real-time ultrasound guidance, puncture right internal jugular vein using 21-gauge micropuncture needle, passage 0.018 guidewire, insertion 4 [place] micropuncture introducer,, passage 0.035 guidewire, over which was passed serial dilators and then a 13 [place] 15 cm triple-lumen temporary dialysis catheter. Guidewire was removed. Catheter ports were aspirated and flushed. The catheter was fixed to the skin. Patient tolerated procedure well. A chest x-ray was obtained, documents catheter tip position at the cavoatrial junction. Comparison: 06/23/2020 radiograph Findings: As above Impression: Successful bedside placement of right transjugular temporary dialysis catheter, as described.
--- NOTE | 2020-06-30 19:28 | NUR ---
NURSE HAND-OFF: Important Events on Shift:S/p non tunneled dialysis cathether placement 06/30/2020 Patient Status: stable Diet: renal diet Pending Orders: n/a Pending Results/Labs:n/a Pending MD notification:n/a Latest Vital Signs: Temperature 98.1 , Pulse 61 , B/P 135 /58 , Respiratory Rate 18 , O2 SAT 98 , Room Air, O2 Flow Rate . Vital Sign Comment: stable Latest Srivastava Fall Score: 50 Fall Risk: High Risk Safety Measures: Call light Within Reach, Bed Alarm Zone 1, Side Rails Side Rails x2, Bed position Low and Locked. Fall Precautions: Yellow Socks Yellow Gown Door Sign Patient Fall Education Report given to VIKAS Bee.
--- NOTE | 2020-06-30 19:31 | NUR ---
NURSE NOTES: Provided hand off report to oncoming nurse for patient. Called instructional support assistant dialysis nurse and informed of inserted non tunneled dialysis catheter and was okay to use. Dialysis said that she would be coming tomorrow morning 07/01/2020
--- NOTE | 2020-06-30 19:32 | NUR ---
NURSE NOTES: Received patient in bed. A&OX2, forgetful. IV site patent and intact. Non tunneled cath noted on right neck, dressing dry and intact. Bed in lowest position. Call light within reach. Will continue to monitor.
--- NOTE | 2020-06-30 19:57 | NUR ---
NURSE NOTES: Notified Hemodialysis nurse(Mike) regarding Hemodialysis order today. Mike RN said that she will do tomorrow morning and notified Dr. Stephenson.
[2020-06-30 20:00] VITALS: BP 132/61
--- NOTE | 2020-06-30 20:04 | NUR ---
NURSE NOTES: Hemodialysis nurse(Mike RN) called, nurse(Mike RN) confirmed with Dr. Stephenson to do Hemodialysis tomorrow morning.
[2020-07-01] VITALS: BP 122/68
[2020-07-01] MEDS: HYDROcodone/Acetamin 5/325 tab ORAL PRN (01:25)
[2020-07-01 04:00] VITALS: BP 125/75
[2020-07-01] MEDS: HydrALAZINE 25mg tab ORAL SCH ×3 (05:57→21:53)
[2020-07-01 06:35] LABS: BASOPHILS % (AUTO) 1.6 % (0.0-2.0); EOSINOPHILS % (AUTO) 5.4 % (0.0-3.0); HEMATOCRIT 28.7 % (37.0-47.0); HEMOGLOBIN 9.6 G/DL (12.0-16.0); LYMPHOCYTES % (AUTO) 30.4 % (20.0-45.0); MEAN CORPUSCULAR VOLUME 91 FL (80-99); MONOCYTES % (AUTO) 9.9 % (1.0-10.0); NEUTROPHILS % (AUTO) 52.7 % (45.0-75.0); PLATELET COUNT 129 K/UL (150-450); RED BLOOD COUNT 3.15 M/UL (4.20-5.40); WHITE BLOOD COUNT 5.7 K/UL (4.8-10.8)
[2020-07-01 07:34] LABS: ALBUMIN 2.9 G/DL (3.4-5.0); ALBUMIN/GLOBULIN RATIO 1.1 (1.0-2.7); BILIRUBIN,TOTAL 0.4 MG/DL (0.2-1.0); CALCIUM 9.2 MG/DL (8.5-10.1); POTASSIUM 4.5 MMOL/L (3.5-5.1)
--- NOTE | 2020-07-01 07:38 | NUR ---
NURSE HAND-OFF: Important Events on Shift: Patient Status: Diet: Renal Pending Orders: Pending Results/Labs: Pending MD notification: Latest Vital Signs: Temperature 98.4 , Pulse 66 , B/P 125 /75 , Respiratory Rate 20 , O2 SAT 94 , Room Air, O2 Flow Rate . Vital Sign Comment: Latest Srivastava Fall Score: 50 Fall Risk: High Risk Safety Measures: Call light Within Reach, Bed Alarm Zone 1, Side Rails Side Rails x2, Bed position Low and Locked. Fall Precautions: Yellow Socks Yellow Gown Door Sign Patient Fall Education Report given to Tyesha BEAN.
--- NOTE | 2020-07-01 07:54 | NUR ---
NURSE NOTES: Report received from Rohit BEAN. Patient seen on rounds, asleep but easily rousable, not in distress, no signs of pain. Non-tunneled catheter noted on right upper chest, dressing intact, no bleeding noted. Nurse reports that pt is scheduled for HD today and that dialysis nurse is aware. MD Dr. Stephenson is also aware that HD was not done yesterday and will be done this AM. Left arm precautions maintained. PIV on right forearm patent and intact. Wound dressings intact over sacrum, bilateral thighs and bilateral heels. Bed low and locked, siderails up x2, call light placed within reach and intstructed to call nurse for assistance. Will continue to monitor.
[2020-07-01 08:00] VITALS: BP 105/50
[2020-07-01] MEDS: Docusate 100mg cap ORAL SCH ×4 (08:16→18:02)
[2020-07-01] MEDS: Eliquis 2.5mg tablet ORAL SCH ×2 (08:16→18:03)
[2020-07-01] MEDS: Renvela 800mg Pkt ORAL SCH ×2 (08:16→18:03)
[2020-07-01] MEDS: Aspirin Baby 81mg ORAL SCH (08:16)
[2020-07-01 08:44] LABS: PHOSPHORUS 4.8 MG/DL (2.5-4.9)
--- NOTE | 2020-07-01 10:41 | Infectious Diseases Prog Note ---
Assessment/Plan Assessment: COVID19 neg x1 (06/23n rapid COVID pCR neg) -CXR: Mild pulmonary vascular prominence. No evidence of alveolar edema. No focal consolidation. Afebrile No leukocytosis S. capitis bacteremia- likely HD cath infection as this is the same organism she was bacteremic and septic back in April 2020- it was treated at the time w/ 2 weeks of IV vancomycin but no recurrence of bacteremia --06/30 SP R IJV farhat --06/28 SP permacath removal; cath tip cx NTD --06/23 Bcx 2/4 GPC clusters; 06/25 Bcx NTD --2d echo: no vegetations seen Pyuria -u/a wbc tnct, nit -, leuk +3; ucx NTD Hyperkalemia, SP (due to missing HD sessions) hx of SEvere sepsis 2ry S. capitis bacteremia, persistent; 04/2020 SP Rx -likely HD line infection in the setting of sepsis -04/23 Bcx 1/4 Staph capitis ; 04/25 Bcx 1/4 Staph capitis; 04/27 Bcx Neg x4 (peripheral, HD line) -2d Echo: no vegetations seen Hx of L foot/ankle wound; no grossly infected- no OM on bone scan -04/28/20 Bone scan: No significant abnormality in the left heel to suggest osteomyelitis of the location of clinically described left heel wound. Mild bilateral abnormal uptake, as detailed above, likely reflecting degenerative changes -xray L foot/ankle: No acute findings in the left foot. 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 capitis bacteremia and likely HD cath infection -05/10/20 SP IV Vancomycin #18 -05/05 SP Meropenem #4 -04/29 SP Cefepime #5 -04/25 SP Ceftriaxone #3 -04/23/20 SP Cefepime x1 -f/u cx -Monitor CBC/CMP, temperatures -f/u Bcx x2 -May need RASHAAD if recurrent bacteremia, febrile Thank you for this consultation. Will continue to follow along with you. Discussed with RN, Dr ReDr Seema licona. Subjective Allergies: Coded Allergies: PENICILLINS (Verified Allergy, Unknown, 04/23/20) Tolerated Cefepime 04/23/20 Afebrile No leukocytosis Objective Last 24 Hour Vital Signs Date Time Temp Pulse Resp B/P (MAP) Pulse Ox O2 Delivery O2 Flow Rate FiO2 07/01/20 09:00 Room Air 07/01/20 08:00 97.9 60 18 105/50 (68) 93 07/01/20 05:57 125/75 07/01/20 04:00 98.4 66 20 125/75 (92) 94 07/01/20 00:00 98.1 71 20 122/68 (86) 95 06/30/20 21:37 132/61 06/30/20 21:00 Room Air 06/30/20 20:00 97.9 60 20 132/61 (84) 94 06/30/20 16:00 98.1 61 18 135/58 (83) 98 06/30/20 16:00 98.0 81 18 121/71 (88) 96 06/30/20 13:38 131/50 06/30/20 12:00 98.1 70 18 131/50 (77) 94 Height (Feet): 5 Height (Inches): 5.00 Weight (Pounds): 238 GENERAL: NAD HEENT: NCAT, MMM, EOMI LUNGS: Equal rise and fall of chest B/L no accessory muscle use ABDOMEN: Soft, nondistended EXTREMITIES: No cyanosis, clubbing, or edema. Microbiology Date/Time Source Procedure Growth Status 06/28/20 16:00 Chest Catheter Tip Culture - Preliminary NO GROWTH AFTER 24 HOURS Resulted Laboratory Tests Test 07/01/20 05:55 White Blood Count 5.7 K/UL (4.8-10.8) Red Blood Count 3.15 M/UL (4.20-5.40) L Hemoglobin 9.6 G/DL (12.0-16.0) L Hematocrit 28.7 % (37.0-47.0) L Mean Corpuscular Volume 91 FL (80-99) Mean Corpuscular Hemoglobin 30.5 PG (27.0-31.0) Mean Corpuscular Hemoglobin Concent 33.4 G/DL (32.0-36.0) Red Cell Distribution Width 13.0 % (11.6-14.8) Platelet Count 129 K/UL (150-450) L Mean Platelet Volume 8.7 FL (6.5-10.1) Neutrophils (%) (Auto) 52.7 % (45.0-75.0) Lymphocytes (%) (Auto) 30.4 % (20.0-45.0) Monocytes (%) (Auto) 9.9 % (1.0-10.0) Eosinophils (%) (Auto) 5.4 % (0.0-3.0) H Basophils (%) (Auto) 1.6 % (0.0-2.0) Sodium Level 138 MMOL/L (136-145) Potassium Level 4.5 MMOL/L (3.5-5.1) Chloride Level 102 MMOL/L (98-107) Carbon Dioxide Level 24 MMOL/L (21-32) Anion Gap 12 mmol/L (5-15) Blood Urea Nitrogen 56 mg/dL (7-18) H Creatinine 9.0 MG/DL (0.55-1.30) H Estimat Glomerular Filtration Rate 5.2 mL/min (>60) Glucose Level 99 MG/DL (74-106) Calcium Level 9.2 MG/DL (8.5-10.1) Phosphorus Level 4.8 MG/DL (2.5-4.9) Magnesium Level 2.7 MG/DL (1.8-2.4) H Total Bilirubin 0.4 MG/DL (0.2-1.0) Aspartate Amino Transf (AST/SGOT) 19 U/L (15-37) Alanine Aminotransferase (ALT/SGPT) 15 U/L (12-78) Alkaline Phosphatase 56 U/L (46-116) C-Reactive Protein, Quantitative < 0.4 mg/dL (0.00-0.90) Pro-B-Type Natriuretic Peptide 5915 pg/mL (0-125) H Total Protein 5.6 G/DL (6.4-8.2) L Albumin 2.9 G/DL (3.4-5.0) L Globulin 2.7 g/dL Albumin/Globulin Ratio 1.1 (1.0-2.7) Random Vancomycin Level 25.3 ug/mL Current Medications Medications (Trade) Dose Ordered Sig/Jesus Route PRN Reason Start Time Stop Time Status Last Admin Dose Admin Acetaminophen (Tylenol) 650 mg Q4H PRN ORAL For Pain 06/23/20 15:15 07/23/20 15:14 Acetaminophen/ Hydrocodone Bitart ([place] 5/325) 1 tab Q4H PRN ORAL Moderate Pain (Pain Scale 4-6) 06/26/20 21:30 07/03/20 21:29 07/01/20 01:25 Apixaban (Eliquis) 2.5 mg BID ORAL 06/23/20 18:00 09/21/20 17:59 06/30/20 18:02 Aspirin (ASA) 81 mg DAILY ORAL 06/24/20 09:00 08/08/20 08:59 06/29/20 08:18 Atorvastatin Calcium (Lipitor) 10 mg BEDTIME ORAL 06/23/20 21:00 09/21/20 20:59 06/30/20 21:37 Chlorhexidine Gluconate (Cira-Hex 2%) 1 applic DAILY@1999 TOPIC 07/01/20 20:00 09/29/20 19:59 Docusate Sodium (Colace) 100 mg THREE TIMES A DAY ORAL 06/23/20 18:00 07/23/20 17:59 07/01/20 08:16 Gabapentin (Neurontin) 100 mg BID ORAL 06/23/20 18:00 07/23/20 17:59 07/01/20 08:16 Hydralazine HCl (Apresoline) 25 mg EVERY 8 HOURS ORAL 06/23/20 22:00 09/21/20 21:59 06/30/20 21:37 Hydralazine HCl (Apresoline) 25 mg Q4H PRN ORAL bp over 160 syst 06/23/20 15:30 09/21/20 15:29 Ondansetron HCl (Zofran) 4 mg Q6H PRN IVP Nausea & Vomiting 06/23/20 20:00 07/23/20 19:59 06/28/20 03:20 Pantoprazole (Protonix) 40 mg EVERY 12 HOURS ORAL 06/23/20 21:00 07/23/20 20:59 07/01/20 08:16 Sevelamer Carbonate (Renvela) 800 mg BID ORAL 06/26/20 18:00 09/21/20 17:59 07/01/20 08:16 Vancomycin HCl (Vanco pharmacy to dose) 1 ea DAILY PRN MISC Per rx protocol 06/24/20 12:45 07/24/20 12:44 Benjamín Montoya MD Jul 01, 2020 10:41
--- NOTE | 2020-07-01 10:48 | Pulmonology Progress Note ---
Subjective ROS Limited/Unobtainable: No Interval Events: None new Constitutional: Reports: no symptoms HEENT: Repors: no symptoms Respiratory: Reports: no symptoms Cardiovascular: Reports: no symptoms Gastrointestinal/Abdominal: Reports: no symptoms Genitourinary: Reports: no symptoms Allergies: Coded Allergies: PENICILLINS (Verified Allergy, Unknown, 04/23/20) Tolerated Cefepime 04/23/20 Objective Last 24 Hour Vital Signs Date Time Temp Pulse Resp B/P (MAP) Pulse Ox O2 Delivery O2 Flow Rate FiO2 07/01/20 09:00 Room Air 07/01/20 08:00 97.9 60 18 105/50 (68) 93 07/01/20 05:57 125/75 07/01/20 04:00 98.4 66 20 125/75 (92) 94 07/01/20 00:00 98.1 71 20 122/68 (86) 95 06/30/20 21:37 132/61 06/30/20 21:00 Room Air 06/30/20 20:00 97.9 60 20 132/61 (84) 94 06/30/20 16:00 98.1 61 18 135/58 (83) 98 06/30/20 16:00 98.0 81 18 121/71 (88) 96 06/30/20 13:38 131/50 06/30/20 12:00 98.1 70 18 131/50 (77) 94 Intake and Output 06/30/20 07/01/20 19:00 07:00 Intake Total 600 ml Balance 600 ml Other 600 ml # Voids 1 General Appearance: WD/WN HEENT: normocephalic Respiratory: chest wall non-tender Cardiovascular: normal peripheral pulses Microbiology Date/Time Source Procedure Growth Status 06/28/20 16:00 Chest Catheter Tip Culture - Preliminary NO GROWTH AFTER 24 HOURS Resulted Laboratory Tests 07/01/20 05:55: White Blood Count 5.7, Red Blood Count 3.15L, Hemoglobin 9.6L, Hematocrit 28.7L, Mean Corpuscular Volume 91, Mean Corpuscular Hemoglobin 30.5, Mean Corpuscular Hemoglobin Concent 33.4, Red Cell Distribution Width 13.0, Platelet Count 129L, Mean Platelet Volume 8.7, Neutrophils (%) (Auto) 52.7, Lymphocytes (%) (Auto) 30.4, Monocytes (%) (Auto) 9.9, Eosinophils (%) (Auto) 5.4H, Basophils (%) (Auto) 1.6, Sodium Level 138, Potassium Level 4.5, Chloride Level 102, Carbon Dioxide Level 24, Anion Gap 12, Blood Urea Nitrogen 56H, Creatinine 9.0H, Estimat Glomerular Filtration Rate 5.2, Glucose Level 99, Calcium Level 9.2, Phosphorus Level 4.8, Magnesium Level 2.7H, Total Bilirubin 0.4, Aspartate Amino Transf (AST/SGOT) 19, Alanine Aminotransferase (ALT/SGPT) 15, Alkaline Phosphatase 56, C-Reactive Protein, Quantitative < 0.4, Pro-B-Type Natriuretic Peptide 5915H, Total Protein 5.6L, Albumin 2.9L, Globulin 2.7, Albumin/Globulin Ratio 1.1, Random Vancomycin Level 25.3 Current Medications Medications (Trade) Dose Ordered Sig/Jesus Route PRN Reason Start Time Stop Time Status Last Admin Dose Admin Acetaminophen (Tylenol) 650 mg Q4H PRN ORAL For Pain 06/23/20 15:15 07/23/20 15:14 Acetaminophen/ Hydrocodone Bitart ([place] 5/325) 1 tab Q4H PRN ORAL Moderate Pain (Pain Scale 4-6) 06/26/20 21:30 07/03/20 21:29 07/01/20 01:25 Apixaban (Eliquis) 2.5 mg BID ORAL 06/23/20 18:00 09/21/20 17:59 06/30/20 18:02 Aspirin (ASA) 81 mg DAILY ORAL 06/24/20 09:00 08/08/20 08:59 06/29/20 08:18 Atorvastatin Calcium (Lipitor) 10 mg BEDTIME ORAL 06/23/20 21:00 09/21/20 20:59 06/30/20 21:37 Chlorhexidine Gluconate (Cira-Hex 2%) 1 applic DAILY@1999 TOPIC 07/01/20 20:00 09/29/20 19:59 Docusate Sodium (Colace) 100 mg THREE TIMES A DAY ORAL 06/23/20 18:00 07/23/20 17:59 07/01/20 08:16 Gabapentin (Neurontin) 100 mg BID ORAL 06/23/20 18:00 07/23/20 17:59 07/01/20 08:16 Hydralazine HCl (Apresoline) 25 mg EVERY 8 HOURS ORAL 06/23/20 22:00 09/21/20 21:59 06/30/20 21:37 Hydralazine HCl (Apresoline) 25 mg Q4H PRN ORAL bp over 160 syst 06/23/20 15:30 09/21/20 15:29 Ondansetron HCl (Zofran) 4 mg Q6H PRN IVP Nausea & Vomiting 06/23/20 20:00 07/23/20 19:59 06/28/20 03:20 Pantoprazole (Protonix) 40 mg EVERY 12 HOURS ORAL 06/23/20 21:00 07/23/20 20:59 07/01/20 08:16 Sevelamer Carbonate (Renvela) 800 mg BID ORAL 06/26/20 18:00 09/21/20 17:59 07/01/20 08:16 Vancomycin HCl (Vanco pharmacy to dose) 1 ea DAILY PRN MISC Per rx protocol 06/24/20 12:45 07/24/20 12:44 Assessment/Plan Assessment/Plan IMPRESSION: 1. Hyperkalemia. 2. Pulmonary edema. 3. Missed dialysis. 4. Diabetes mellitus. 5. Hypertension. 6. History of COPD. DISCUSSION: Continue HD Currently saturating well on room air. Discussed with Dr. Banegas. Yajaira Tse Omar Syed MD Jul 01, 2020 10:48
--- NOTE | 2020-07-01 11:08 | Cardiac Electrophysiology PN ---
Assessment/Plan Assessment/Plan 1. AFIB, On Eliquis 2.5 bid 2. Hypertension, on hydralazine 25 bid. EF 55%. 3. ESRD on HD via right chest permcath (removed now and got a new one 06/30/20). 4. Hx of left arm av shunt malfunctioning 5. Left chest DDD pacemaker 6. Hx of CVA non ambulatory with dementia 7. Severe calcific PAD with left foot decub ulcer 8. Diabetes 9. Asthma 10. hx of CVA left weakness 11.GERD 12. decubitus ulcer Subjective Subjective Alert in NAD. Getting HD via new Right IJ PermCath Objective Last 24 Hour Vital Signs Date Time Temp Pulse Resp B/P (MAP) Pulse Ox O2 Delivery O2 Flow Rate FiO2 07/01/20 09:00 Room Air 07/01/20 08:00 97.9 60 18 105/50 (68) 93 07/01/20 05:57 125/75 07/01/20 04:00 98.4 66 20 125/75 (92) 94 07/01/20 00:00 98.1 71 20 122/68 (86) 95 06/30/20 21:37 132/61 06/30/20 21:00 Room Air 06/30/20 20:00 97.9 60 20 132/61 (84) 94 06/30/20 16:00 98.1 61 18 135/58 (83) 98 06/30/20 16:00 98.0 81 18 121/71 (88) 96 06/30/20 13:38 131/50 06/30/20 12:00 98.1 70 18 131/50 (77) 94 Intake and Output 06/30/20 07/01/20 19:00 07:00 Intake Total 600 ml Balance 600 ml Other 600 ml # Voids 1 Laboratory Tests Test 07/01/20 05:55 White Blood Count 5.7 K/UL (4.8-10.8) Red Blood Count 3.15 M/UL (4.20-5.40) L Hemoglobin 9.6 G/DL (12.0-16.0) L Hematocrit 28.7 % (37.0-47.0) L Mean Corpuscular Volume 91 FL (80-99) Mean Corpuscular Hemoglobin 30.5 PG (27.0-31.0) Mean Corpuscular Hemoglobin Concent 33.4 G/DL (32.0-36.0) Red Cell Distribution Width 13.0 % (11.6-14.8) Platelet Count 129 K/UL (150-450) L Mean Platelet Volume 8.7 FL (6.5-10.1) Neutrophils (%) (Auto) 52.7 % (45.0-75.0) Lymphocytes (%) (Auto) 30.4 % (20.0-45.0) Monocytes (%) (Auto) 9.9 % (1.0-10.0) Eosinophils (%) (Auto) 5.4 % (0.0-3.0) H Basophils (%) (Auto) 1.6 % (0.0-2.0) Sodium Level 138 MMOL/L (136-145) Potassium Level 4.5 MMOL/L (3.5-5.1) Chloride Level 102 MMOL/L (98-107) Carbon Dioxide Level 24 MMOL/L (21-32) Anion Gap 12 mmol/L (5-15) Blood Urea Nitrogen 56 mg/dL (7-18) H Creatinine 9.0 MG/DL (0.55-1.30) H Estimat Glomerular Filtration Rate 5.2 mL/min (>60) Glucose Level 99 MG/DL (74-106) Calcium Level 9.2 MG/DL (8.5-10.1) Phosphorus Level 4.8 MG/DL (2.5-4.9) Magnesium Level 2.7 MG/DL (1.8-2.4) H Total Bilirubin 0.4 MG/DL (0.2-1.0) Aspartate Amino Transf (AST/SGOT) 19 U/L (15-37) Alanine Aminotransferase (ALT/SGPT) 15 U/L (12-78) Alkaline Phosphatase 56 U/L (46-116) C-Reactive Protein, Quantitative < 0.4 mg/dL (0.00-0.90) Pro-B-Type Natriuretic Peptide 5915 pg/mL (0-125) H Total Protein 5.6 G/DL (6.4-8.2) L Albumin 2.9 G/DL (3.4-5.0) L Globulin 2.7 g/dL Albumin/Globulin Ratio 1.1 (1.0-2.7) Random Vancomycin Level 25.3 ug/mL Microbiology Date/Time Source Procedure Growth Status 06/28/20 16:00 Chest Catheter Tip Culture - Preliminary NO GROWTH AFTER 24 HOURS Resulted Objective HEENT: No JVD. New Right IJ PermCAth in place LUNGS: Clear CVS: RRR. Pacer left subclavian ABDOMEN: Soft EXT: Right chest PermCath is removed. Left arm AVF fistula Triston Franco MD Jul 01, 2020 11:08
[2020-07-01 12:00] VITALS: BP 129/62
--- NOTE | 2020-07-01 13:52 | Surgery Progress Note ---
Surgery Progress Note Subjective Additional Comments right IJ temp hd cath placed HD today plan permacath tomorrow Objective Last 24 Hour Vital Signs Date Time Temp Pulse Resp B/P (MAP) Pulse Ox O2 Delivery O2 Flow Rate FiO2 07/01/20 13:19 109/55 07/01/20 12:00 98.0 60 19 129/62 (84) 93 07/01/20 09:00 Room Air 07/01/20 08:00 97.9 60 18 105/50 (68) 93 07/01/20 05:57 125/75 07/01/20 04:00 98.4 66 20 125/75 (92) 94 07/01/20 00:00 98.1 71 20 122/68 (86) 95 06/30/20 21:37 132/61 06/30/20 21:00 Room Air 06/30/20 20:00 97.9 60 20 132/61 (84) 94 06/30/20 16:00 98.1 61 18 135/58 (83) 98 06/30/20 16:00 98.0 81 18 121/71 (88) 96 I&O Intake and Output 06/30/20 07/01/20 19:00 07:00 Intake Total 600 ml Balance 600 ml Other 600 ml # Voids 1 Dressing: other Wound: other Cardiovascular: RSR Respiratory: decreased breath sounds Abdomen: soft, non-tender, present bowel sounds Extremities: no edema, no tenderness, no cyanosis Laboratory Tests Test 07/01/20 05:55 White Blood Count 5.7 K/UL (4.8-10.8) Red Blood Count 3.15 M/UL (4.20-5.40) L Hemoglobin 9.6 G/DL (12.0-16.0) L Hematocrit 28.7 % (37.0-47.0) L Mean Corpuscular Volume 91 FL (80-99) Mean Corpuscular Hemoglobin 30.5 PG (27.0-31.0) Mean Corpuscular Hemoglobin Concent 33.4 G/DL (32.0-36.0) Red Cell Distribution Width 13.0 % (11.6-14.8) Platelet Count 129 K/UL (150-450) L Mean Platelet Volume 8.7 FL (6.5-10.1) Neutrophils (%) (Auto) 52.7 % (45.0-75.0) Lymphocytes (%) (Auto) 30.4 % (20.0-45.0) Monocytes (%) (Auto) 9.9 % (1.0-10.0) Eosinophils (%) (Auto) 5.4 % (0.0-3.0) H Basophils (%) (Auto) 1.6 % (0.0-2.0) Sodium Level 138 MMOL/L (136-145) Potassium Level 4.5 MMOL/L (3.5-5.1) Chloride Level 102 MMOL/L (98-107) Carbon Dioxide Level 24 MMOL/L (21-32) Anion Gap 12 mmol/L (5-15) Blood Urea Nitrogen 56 mg/dL (7-18) H Creatinine 9.0 MG/DL (0.55-1.30) H Estimat Glomerular Filtration Rate 5.2 mL/min (>60) Glucose Level 99 MG/DL (74-106) Calcium Level 9.2 MG/DL (8.5-10.1) Phosphorus Level 4.8 MG/DL (2.5-4.9) Magnesium Level 2.7 MG/DL (1.8-2.4) H Total Bilirubin 0.4 MG/DL (0.2-1.0) Aspartate Amino Transf (AST/SGOT) 19 U/L (15-37) Alanine Aminotransferase (ALT/SGPT) 15 U/L (12-78) Alkaline Phosphatase 56 U/L (46-116) C-Reactive Protein, Quantitative < 0.4 mg/dL (0.00-0.90) Pro-B-Type Natriuretic Peptide 5915 pg/mL (0-125) H Total Protein 5.6 G/DL (6.4-8.2) L Albumin 2.9 G/DL (3.4-5.0) L Globulin 2.7 g/dL Albumin/Globulin Ratio 1.1 (1.0-2.7) Random Vancomycin Level 25.3 ug/mL Plan Problems: (1) Diabetic nephropathy (2) Cellulitis of left foot (3) Pacemaker (4) Anemia in chronic kidney disease (CKD) (5) History of CVA (cerebrovascular accident) (6) History of atrial fibrillation (7) COPD (chronic obstructive pulmonary disease) (8) Bradycardia (9) Diabetic nephropathy (10) Hypertensive kidney disease (11) Heel abrasion (12) Elevated troponin I level (13) Urinary tract infection due to Proteus (14) ESRD (end stage renal disease) Assessment & Plan: plan HD cath insertion resume HD per nepro (15) Volume overload (16) Hyperkalemia (17) Generalized weakness (18) Dyspnea (19) Symptomatic anemia (20) Acute on chronic renal failure (21) Anemia (22) HTN (hypertension) (23) Deep tissue injury Assessment & Plan: Pt presented on admission with Multiple Pressure injuries.Sacral DTPI noted over previously compromised area. Surrounding surgical scar. Base of Pressure Injury is indurated ,purpuric with Maroon Borders. Black discoloration with marginal erythema noted to R and L Buttocks. Linear area of hyperpigmentation noted sacral cleft. Darker skin tone without erythema or induration noted to R and L ischial tuberosities. L 1st metatarsal is black with small blood filled blister at tip of metatarsal.Web space of L 1st and L 2nd metatarsal is erythematous and macerated. Mild odor noted. Dry necrotic area noted to lateral aspect of L 5th metatarsal. Dry eschar lateral L foot (L)1cm x (W)1.5cm. Periwound is dry without erythema or fluctuance. Unstageable Pressure Injury L Heel(L)2.4cm x (W)3.5cm. Base of wound is necrotic with surrounding moist and pale skin,dry black borders. R 1st metatarsal is black. T heel is boggy, pale with dry peeling skin. Return visit to complete Skin assessment as pt was being dialyzed previous day.Pt is morbidly obese. Bilat breasts folds and abdominal folds are moist and malodorous MASD Buttocks including Bilat Ischial tuberosities. Affected areas are er ythematous and denuded. Moisture Intertrigo hardy cleft of buttocks. Full thickness Ulcer medial upper R thigh (L)1.4cm x (W)1 cm x (D)0.2cm. Base of wound is monique with scattered Biofilm, and macerated Borders. NO exudate noted. Periwound, skin is erythematous, moist and malodorous. An area of Hyperpigmentation noted to medial aspect of R thigh in close proximity to wound. Medial upper L thigh is erythematous ,denuded and malodorous. Tx.Plan: Apply Moisture Barrier Paste to buttocks, ischium, and Bilat medial upper thighs with each incontinence care. Cleanse wound medial upper L thigh with Saline. Apply Therahoney. Apply Moisture Barrier Paste periwound. Cover with Optifoam drsg. Change Daily and prn. Cleanse Sacral wound with Saline. Apply TheraHoney. Apply Moisture Barrier Paste Periwound. Cover with Optifoam drsg. Change every 3 days and prn. Apply Moisture Barrier Paste to R and L ischial tuberosities with each Incontinence care. wash L heel. apply betadine and cover with optifoam dressing Apply Cavilon Skin Barrier to R Heel. Cover with Optifoam drsg. Change every 7 days and prn. Reposition at least every 2hours or as tolerated. off-load heels with pillows. nutritional optimization DAILY ESTIMATED NEEDS: Needs based on ESRD on HD, wound obese 70.5kg abw 20-25 kcals/kg 2190-0978 total kcals 1.8-2.5 IBW 56.8kg g protein/kg 102-142 g total protein Fluid per MD on HD NUTRITION DIAGNOSIS: Increased protein needs r/t renal dysfunction and wound healing as evidenced by pt w/ ESRD on HD, w/ L heel unstageable wound. CURRENT DIET:renal diet, no chicken PO DIET RECOMMENDATIONS: RENAL DIET/ texture per [employer]LOADER ADDITIONAL RECOMMENDATIONS: 1) Calibrated bedscale wt if adding P200 mattress + pump 2) Add NEPRO 1 tetra w/ meals w/ poor meal acceptance Prior adm w/ poor po intake 3) Wound care: continue SOLEDAD BID + Add Nephrovite x1 daily Vit C-> dosing per nephro 4) Monitor lytes and renal fxn Luis Alberto Cade Jul 01, 2020 13:52
--- NOTE | 2020-07-01 14:04 | Nephrology Progress Note ---
Assessment/Plan Problem List: (1) ESRD (end stage renal disease) (2) Volume overload (3) Hyperkalemia (4) Bradycardia (5) Pacemaker (6) Diabetic nephropathy Assessment ESRD (end stage renal disease), missed few sessions of hemodialysis Volume overload , Hyperkalemia other conditions: -. Diabetes with diabetic nephropathy and neuropathy. -. History of CVA with left weakness. -. History of atrial fibrillation. -. History of pacemaker. Plan July 01: Radiology was unable to put tunneled catheter for patient yesterday. Temporary jugular catheter was inserted last evening and patient received dialysis this morning. Patient due placement of a tunneled catheter tomorrow. Renal parameters stable. Continue same treatment plan. June 30: Patient due placement of permacath today followed by dialysis. Continue with same management. June 29: Labs reviewed. Status quo. Dialyzed June 27. Due for dialysis June 30 tomorrow. Permacath removed yesterday and will be reinserted tomorrow prior to dialysis. Continue per consultants. June 28: Labs reviewed. Status quo. Dialyzed yesterday June 27. Discussed with ID. Patient bacteremic with the same organism of previous admission. Suggestion to remove the current permacath and replaced with a new one at the same time. PMD and vascular surgeon aware. Due for next dialysis on June 30. June 27: Lab reviewed. Status quo. Due for dialysis today. Stable from renal standpoint of view. Continue per PMD and consultants. June 26: Patient stable. Dialyzed yesterday. Labs reviewed. Due for dialysis tomorrow. Continue per vascular surgical recommendation. June 25: Clinically stable. Labs reviewed. Medication list reviewed. Due for dialysis today. Continue with same management. Patient received dialysis yesterday. Will attempt dialysis again tomorrow. Labs, medications reviewed. Continue per consultants. Subjective ROS Limited/Unobtainable: No Constitutional: Reports: malaise Objective Objective Last 24 Hour Vital Signs Date Time Temp Pulse Resp B/P (MAP) Pulse Ox O2 Delivery O2 Flow Rate FiO2 07/01/20 13:19 109/55 07/01/20 12:00 98.0 60 19 129/62 (84) 93 07/01/20 09:00 Room Air 07/01/20 08:00 97.9 60 18 105/50 (68) 93 9/24/20 05:57 125/75 07/01/20 04:00 98.4 66 20 125/75 (92) 94 07/01/20 00:00 98.1 71 20 122/68 (86) 95 06/30/20 21:37 132/61 06/30/20 21:00 Room Air 06/30/20 20:00 97.9 60 20 132/61 (84) 94 06/30/20 16:00 98.1 61 18 135/58 (83) 98 06/30/20 16:00 98.0 81 18 121/71 (88) 96 Intake and Output 06/30/20 07/01/20 19:00 07:00 Intake Total 600 ml Balance 600 ml Other 600 ml # Voids 1 Laboratory Tests 07/01/20 05:55: White Blood Count 5.7, Red Blood Count 3.15L, Hemoglobin 9.6L, Hematocrit 28.7L, Mean Corpuscular Volume 91, Mean Corpuscular Hemoglobin 30.5, Mean Corpuscular Hemoglobin Concent 33.4, Red Cell Distribution Width 13.0, Platelet Count 129L, Mean Platelet Volume 8.7, Neutrophils (%) (Auto) 52.7, Lymphocytes (%) (Auto) 30.4, Monocytes (%) (Auto) 9.9, Eosinophils (%) (Auto) 5.4H, Basophils (%) (Auto) 1.6, Sodium Level 138, Potassium Level 4.5, Chloride Level 102, Carbon Dioxide Level 24, Anion Gap 12, Blood Urea Nitrogen 56H, Creatinine 9.0H, Estimat Glomerular Filtration Rate 5.2, Glucose Level 99, Calcium Level 9.2, Phosphorus Level 4.8, Magnesium Level 2.7H, Total Bilirubin 0.4, Aspartate Amino Transf (AST/SGOT) 19, Alanine Aminotransferase (ALT/SGPT) 15, Alkaline Phosphatase 56, C-Reactive Protein, Quantitative < 0.4, Pro-B-Type Natriuretic Peptide 5915H, Total Protein 5.6L, Albumin 2.9L, Globulin 2.7, Albumin/Globulin Ratio 1.1, Random Vancomycin Level 25.3 Height (Feet): 5 Height (Inches): 5.00 Weight (Pounds): 238 General Appearance: no apparent distress Neck: other - Right jugular dialysis catheter Respiratory/Chest: decreased breath sounds Abdomen: distended Objective No change Fouladian,Manas MD Jul 01, 2020 14:04
--- NOTE | 2020-07-01 14:05 | Cardiology Report ---
APPROVED REPORT EKG Measurement Heart [id number] [id number] <Conclusion> Atrial-paced rhythm with prolonged AV conduction Prolonged QT Abnormal ECG
--- NOTE | 2020-07-01 14:19 | Cardiology Report ---
APPROVED REPORT EKG Measurement Heart [id number] P66 [id number] <Conclusion> Atrial-paced rhythm Abnormal ECG
--- NOTE | 2020-07-01 15:38 | General Progress Note ---
Subjective Allergies: Coded Allergies: PENICILLINS (Verified Allergy, Unknown, 04/23/20) Tolerated Cefepime 04/23/20 Objective Last 24 Hour Vital Signs Date Time Temp Pulse Resp B/P (MAP) Pulse Ox O2 Delivery O2 Flow Rate FiO2 07/01/20 13:19 109/55 07/01/20 12:00 98.0 60 19 129/62 (84) 93 07/01/20 09:00 Room Air 07/01/20 08:00 97.9 60 18 105/50 (68) 93 07/01/20 05:57 125/75 07/01/20 04:00 98.4 66 20 125/75 (92) 94 07/01/20 00:00 98.1 71 20 122/68 (86) 95 06/30/20 21:37 132/61 06/30/20 21:00 Room Air 06/30/20 20:00 97.9 60 20 132/61 (84) 94 06/30/20 16:00 98.1 61 18 135/58 (83) 98 06/30/20 16:00 98.0 81 18 121/71 (88) 96 Intake and Output 06/30/20 07/01/20 19:00 07:00 Intake Total 600 ml Balance 600 ml Other 600 ml # Voids 1 Laboratory Tests 07/01/20 05:55: White Blood Count 5.7, Red Blood Count 3.15L, Hemoglobin 9.6L, Hematocrit 28.7L, Mean Corpuscular Volume 91, Mean Corpuscular Hemoglobin 30.5, Mean Corpuscular Hemoglobin Concent 33.4, Red Cell Distribution Width 13.0, Platelet Count 129L, Mean Platelet Volume 8.7, Neutrophils (%) (Auto) 52.7, Lymphocytes (%) (Auto) 30 .4, Monocytes (%) (Auto) 9.9, Eosinophils (%) (Auto) 5.4H, Basophils (%) (Auto) 1.6, Sodium Level 138, Potassium Level 4.5, Chloride Level 102, Carbon Dioxide Level 24, Anion Gap 12, Blood Urea Nitrogen 56H, Creatinine 9.0H, Estimat Glomerular Filtration Rate 5.2, Glucose Level 99, Calcium Level 9.2, Phosphorus Level 4.8, Magnesium Level 2.7H, Total Bilirubin 0.4, Aspartate Amino Transf (AST/SGOT) 19, Alanine Aminotransferase (ALT/SGPT) 15, Alkaline Phosphatase 56, C-Reactive Protein, Quantitative < 0.4, Pro-B-Type Natriuretic Peptide 5915H, Total Protein 5.6L, Albumin 2.9L, Globulin 2.7, Albumin/Globulin Ratio 1.1, Random Vancomycin Level 25.3 Height (Feet): 5 Height (Inches): 5.00 Weight (Pounds): 238 Assessment/Plan Status: stable Assessment/Plan: S: I am ok O: seems comfortable, no sob or cp PHYSICAL EXAMINATION: . HEAD AND NECK: Atraumatic and normocephalic. CHEST: Clear to auscultation. HEART: S1, S2. Regular rate and rhythm. Bradycardic. MUSCULOSKELETAL: No gross lateralized motor deficit, paraparesis. stage 3 decubitus wound in calcaneal region.NEUROLOGIC: The patient is awake and alert x 2. LABORATORY AND DIAGNOSTIC DATA: Labs dated 06/29/20 reviewed Meds: reviwed and reconciled in chart ASSESSMENT: 1. Sepsis with Staph 2. hyperKalemia and Missed HD sessions 2. Decubitus wound, enlarging and infected. 3. End-stage renal disease, on temporary PermCath hemodialysis access. 2. Paroxysmal atrial fibrillation, rate is stable. 3. Diabetes type 2. 4. Hypertension. 5. Hyperlipidemia. 6. CVA-history. 7. Dementia. 8. Gastrointestinal and deep vein thrombosis prophylaxes. 9. Pain management Plan: HD- per Nephrology Nephrol-Critical care and vascular services consulted. Agree with Telemetry admission consult SW to discuss options to avoid future delays in outpatient HD Negative blood culture Discussion: D/w ID , given the initial bacteremia with Staph Capisits in this patient with long standing HD-Permcath in place. There is moderte risk for underlying line infection. Will proceed with line Extraction. Also, D/w cardiology ( Dr Franco) on Jun 29 for risk assessment for possible infective endocarditis workup . D/w Daughter on Jun 28 S/P extraction of HD access proceed with insertion of new Temp Tunel cath D/w Dr Stephenson in detailed on Jul 01 Pending Re-insertion of the Permcath Danie Banegas MD Jul 01, 2020 15:38
[2020-07-01 16:00] VITALS: BP 124/63
--- NOTE | 2020-07-01 19:31 | NUR ---
NURSE HAND-OFF: Important Events on Shift: S/P HD, vitals stable, for permacath placement in AM Patient Status: Stable Diet: Renal Pending Orders: Permacath placement Pending Results/Labs:None Pending MD notification:None Latest Vital Signs: Temperature 98.4 , Pulse 60 , B/P 124 /63 , Respiratory Rate 18 , O2 SAT 93 , Room Air, O2 Flow Rate . Vital Sign Comment: Latest Srivastava Fall Score: 50 Fall Risk: High Risk Safety Measures: Call light Within Reach, Bed Alarm Zone 1, Side Rails Side Rails x3, Bed position Low and Locked. Fall Precautions: Yellow Socks Yellow Gown Door Sign Patient Fall Education Report given to Rohit BEAN.
[2020-07-01 20:00] VITALS: BP 153/57
[2020-07-01] MEDS: Dyna-Hex 2% Top Sol 2oz TOPIC SCH (21:52)
[2020-07-02] VITALS (10 sets, daily range): BP systolic 106–152; BP diastolic 55–79
[2020-07-02] MEDS: HydrALAZINE 25mg tab ORAL SCH ×3 (05:33→21:37)
--- NOTE | 2020-07-02 07:01 | NUR ---
NURSE HAND-OFF: Important Events on Shift: Patient Status: stable Diet: renal Pending Orders: Pending Results/Labs: Pending MD notification: Latest Vital Signs: Temperature 98.8 , Pulse 60 , B/P 133 /62 , Respiratory Rate 18 , O2 SAT 94 , Room Air, O2 Flow Rate . Vital Sign Comment: Latest Srivastava Fall Score: 50 Fall Risk: High Risk Safety Measures: Call light Within Reach, Bed Alarm Zone 1, Side Rails Side Rails x3, Bed position Low and Locked. Fall Precautions: Yellow Socks Yellow Gown Door Sign Patient Fall Education Report given to Tyesha BEAN.
--- NOTE | 2020-07-02 07:03 | Pulmonology Progress Note ---
Subjective ROS Limited/Unobtainable: No Interval Events: None new Constitutional: Reports: no symptoms HEENT: Repors: no symptoms Respiratory: Reports: no symptoms Cardiovascular: Reports: no symptoms Gastrointestinal/Abdominal: Reports: no symptoms Genitourinary: Reports: no symptoms Allergies: Coded Allergies: PENICILLINS (Verified Allergy, Unknown, 04/23/20) Tolerated Cefepime 04/23/20 Objective Last 24 Hour Vital Signs Date Time Temp Pulse Resp B/P (MAP) Pulse Ox O2 Delivery O2 Flow Rate FiO2 07/02/20 05:33 133/62 07/02/20 04:00 98.8 60 18 133/62 (85) 94 07/02/20 00:00 98.5 61 18 132/56 (81) 95 07/01/20 21:53 153/57 07/01/20 21:00 Room Air 07/01/20 20:00 98.6 60 18 153/57 (89) 95 07/01/20 16:00 98.4 60 18 124/63 (83) 93 07/01/20 13:19 109/55 07/01/20 12:00 98.0 60 19 129/62 (84) 93 07/01/20 09:00 Room Air 07/01/20 08:00 97.9 60 18 105/50 (68) 93 Intake and Output 07/01/20 07/02/20 19:00 07:00 Intake Total 800 ml 240 ml Output Total 1000 ml Balance -200 ml 240 ml Intake Oral 800 ml 240 ml Hemodialysis UF 1000 ml General Appearance: WD/WN HEENT: normocephalic Respiratory: chest wall non-tender Cardiovascular: normal peripheral pulses Current Medications Medications (Trade) Dose Ordered Sig/Jesus Route PRN Reason Start Time Stop Time Status Last Admin Dose Admin Acetaminophen (Tylenol) 650 mg Q4H PRN ORAL For Pain 06/23/20 15:15 07/23/20 15:14 Acetaminophen/ Hydrocodone Bitart ([place] 5/325) 1 tab Q4H PRN ORAL Moderate Pain (Pain Scale 4-6) 06/26/20 21:30 07/03/20 21:29 07/01/20 01:25 Apixaban (Eliquis) 2.5 mg BID ORAL 06/23/20 18:00 09/21/20 17:59 07/01/20 18:03 Aspirin (ASA) 81 mg DAILY ORAL 06/24/20 09:00 08/08/20 08:59 06/29/20 08:18 Atorvastatin Calcium (Lipitor) 10 mg BEDTIME ORAL 06/23/20 21:00 09/21/20 20:59 07/01/20 21:53 Chlorhexidine Gluconate (Cira-Hex 2%) 1 applic DAILY@1999 TOPIC 07/01/20 20:00 09/29/20 19:59 07/01/20 21:52 Docusate Sodium (Colace) 100 mg THREE TIMES A DAY ORAL 06/23/20 18:00 07/23/20 17:59 07/01/20 18:02 Gabapentin (Neurontin) 100 mg BID ORAL 06/23/20 18:00 07/23/20 17:59 07/01/20 18:03 Hydralazine HCl (Apresoline) 25 mg EVERY 8 HOURS ORAL 06/23/20 22:00 09/21/20 21:59 07/02/20 05:33 Hydralazine HCl (Apresoline) 25 mg Q4H PRN ORAL bp over 160 syst 06/23/20 15:30 09/21/20 15:29 Ondansetron HCl (Zofran) 4 mg Q6H PRN IVP Nausea & Vomiting 06/23/20 20:00 07/23/20 19:59 06/28/20 03:20 Pantoprazole (Protonix) 40 mg EVERY 12 HOURS ORAL 06/23/20 21:00 07/23/20 20:59 07/01/20 21:53 Sevelamer Carbonate (Renvela) 800 mg BID ORAL 06/26/20 18:00 09/21/20 17:59 07/01/20 18:03 Vancomycin HCl (Vanco pharmacy to dose) 1 ea DAILY PRN MISC Per rx protocol 06/24/20 12:45 07/24/20 12:44 Assessment/Plan Assessment/Plan IMPRESSION: 1. Hyperkalemia. 2. Pulmonary edema. 3. Missed dialysis. 4. Diabetes mellitus. 5. Hypertension. 6. History of COPD. DISCUSSION: Continue HD Currently saturating well on room air. Discussed with Dr. Banegas. Yajaira Tse Omar Syed MD Jul 02, 2020 07:03
--- NOTE | 2020-07-02 07:29 | NUR ---
NURSE NOTES: Report received from Rohit BEAN. Patient seen on rounds, eating breakfast, not in distress, no signs of pain. Non-tunneled catheter noted on right IJ, dressing intact, no bleeding noted. Pt is scheduled for placement of tunneled catheter today, consents in. Left arm precautions maintained. PIV on right forearm patent and intact. Wound dressings intact over sacrum, bilateral thighs and bilateral heels. Bed low and locked, siderails up x2, call light placed within reach and intstructed to call nurse for assistance. Will continue to monitor.
[2020-07-02] MEDS: Renvela 800mg Pkt ORAL SCH ×2 (08:00→17:21)
[2020-07-02] MEDS: Docusate 100mg cap ORAL SCH ×3 (08:00→17:21)
[2020-07-02] MEDS: Aspirin Baby 81mg ORAL SCH (08:00)
[2020-07-02] MEDS: Eliquis 2.5mg tablet ORAL SCH ×2 (08:01→17:21)
[2020-07-02] MEDS ORDERED: Heparin1,000 units/500ml Premix(Conc:2 units/ml) IV PRN (09:47)
[2020-07-02] MEDS ORDERED: Lidocaine 2% 20mg/ml/EPI 0.01mg/ml 20ml INJ PRN (09:47)
--- NOTE | 2020-07-02 10:30 | Nephrology Progress Note ---
Assessment/Plan Problem List: (1) ESRD (end stage renal disease) (2) Volume overload (3) Hyperkalemia (4) Bradycardia (5) Pacemaker (6) Diabetic nephropathy Assessment ESRD (end stage renal disease), missed few sessions of hemodialysis Volume overload , Hyperkalemia other conditions: -. Diabetes with diabetic nephropathy and neuropathy. -. History of CVA with left weakness. -. History of atrial fibrillation. -. History of pacemaker. Plan July 02: Patient doing insertion of tunneled catheter today. Patient was last dialyzed yesterday morning. After insertion of tunneled catheter we arrange for dialysis tomorrow morning. July 01: Radiology was unable to put tunneled catheter for patient yesterday. Temporary jugular catheter was inserted last evening and patient received dialysis this morning. Patient due placement of a tunneled catheter tomorrow. Renal parameters stable. Continue same treatment plan. June 30: Patient due placement of permacath today followed by dialysis. Continue with same management. June 29: Labs reviewed. Status quo. Dialyzed June 27. Due for dialysis June 30 tomorrow. Permacath removed yesterday and will be cayetano nserted tomorrow prior to dialysis. Continue per consultants. June 28: Labs reviewed. Status quo. Dialyzed yesterday June 27. Discussed with ID. Patient bacteremic with the same organism of previous admission. Suggestion to remove the current permacath and replaced with a new one at the same time. PMD and vascular surgeon aware. Due for next dialysis on June 30. June 27: Lab reviewed. Status quo. Due for dialysis today. Stable from renal standpoint of view. Continue per PMD and consultants. June 26: Patient stable. Dialyzed yesterday. Labs reviewed. Due for dialysis tomorrow. Continue per vascular surgical recommendation. June 25: Clinically stable. Labs reviewed. Medication list reviewed. Due for dialysis today. Continue with same management. Patient received dialysis yesterday. Will attempt dialysis again tomorrow. Labs, medications reviewed. Continue per consultants. Subjective ROS Limited/Unobtainable: No Constitutional: Reports: malaise, weakness Objective Objective Last 24 Hour Vital Signs Date Time Temp Pulse Resp B/P (MAP) Pulse Ox O2 Delivery O2 Flow Rate FiO2 07/02/20 09:00 Room Air 07/02/20 08:00 98.2 60 20 106/55 (72) 96 07/02/20 05:33 133/62 07/02/20 04:00 98.8 60 18 133/62 (85) 94 07/02/20 00:00 98.5 61 18 132/56 (81) 95 07/01/20 21:53 153/57 07/01/20 21:00 Room Air 07/01/20 20:00 98.6 60 18 153/57 (89) 95 07/01/20 16:00 98.4 60 18 124/63 (83) 93 07/01/20 13:19 109/55 07/01/20 12:00 98.0 60 19 129/62 (84) 93 Intake and Output 07/01/20 07/02/20 19:00 07:00 Intake Total 800 ml 240 ml Output Total 1000 ml Balance -200 ml 240 ml Intake Oral 800 ml 240 ml Hemodialysis UF 1000 ml No chemistry panel done today Height (Feet): 5 Height (Inches): 5.00 Weight (Pounds): 238 General Appearance: no apparent distress Cardiovascular: normal rate Respiratory/Chest: decreased breath sounds Abdomen: distended Objective No change Manas Stephenson MD Jul 02, 2020 10:30
--- NOTE | 2020-07-02 10:38 | NUR ---
NURSE NOTES: Spoke with Veto from [facility] dialysis to inform them of patient's scheduled dialysis today 07/02, says he will notify on-call nurse and to wait for callback.
--- NOTE | 2020-07-02 10:48 | Infectious Diseases Prog Note ---
Assessment/Plan Assessment: COVID19 neg x1 (06/23n rapid COVID pCR neg) -CXR: Mild pulmonary vascular prominence. No evidence of alveolar edema. No focal consolidation. Afebrile No leukocytosis S. capitis bacteremia- likely HD cath infection as this is the same organism she was bacteremic and septic back in April 2020- it was treated at the time w/ 2 weeks of IV vancomycin but no recurrence of bacteremia --06/30 SP R IJV farhat --06/28 SP permacath removal; cath tip cx NTD --06/23 Bcx 2/4 GPC clusters; 06/25 Bcx NTD --2d echo: no vegetations seen Pyuria -u/a wbc tnct, nit -, leuk +3; ucx NTD Hyperkalemia, SP (due to missing HD sessions) hx of SEvere sepsis 2ry S. capitis bacteremia, persistent; 04/2020 SP Rx -likely HD line infection in the setting of sepsis -04/23 Bcx 1/4 Staph capitis ; 04/25 Bcx 1/4 Staph capitis; 04/27 Bcx Neg x4 (peripheral, HD line) -2d Echo: no vegetations seen Hx of L foot/ankle wound; no grossly infected- no OM on bone scan -04/28/20 Bone scan: No significant abnormality in the left heel to suggest osteomyelitis of the location of clinically described left heel wound. Mild bilateral abnormal uptake, as detailed above, likely reflecting degenerative changes -xray L foot/ankle: No acute findings in the left foot. -CRP 5.9, ESR 53 Dm2 HTN Asthma/COPD CVA w/ residual L side weakness s/p PPM asthma ESRD on HD (MWF) via permacath R upper chest GERD decubitus ulcer Afib Plan: -Continue IV Vancomycin #07/05 for S. capitis bacteremia and likely HD cath infection -05/10/20 SP IV Vancomycin #18 -05/05 SP Meropenem #4 -04/29 SP Cefepime #5 -04/25 SP Ceftriaxone #3 -04/23/20 SP Cefepime x1 -f/u cx -Monitor CBC/CMP, temperatures -f/u Bcx x2 -May need RASHAAD if recurrent bacteremia, febrile Thank you for this consultation. Will continue to follow along with you. Discussed with RN, Dr ReDr Seema licona. Subjective Allergies: Coded Allergies: PENICILLINS (Verified Allergy, Unknown, 04/23/20) Tolerated Cefepime 04/23/20 Afebrile No leukocytosis On RA Objective Last 24 Hour Vital Signs Date Time Temp Pulse Resp B/P (MAP) Pulse Ox O2 Delivery O2 Flow Rate FiO2 07/02/20 09:00 Room Air 07/02/20 08:00 98.2 60 20 106/55 (72) 96 07/02/20 05:33 133/62 07/02/20 04:00 98.8 60 18 133/62 (85) 94 07/02/20 00:00 98.5 61 18 132/56 (81) 95 07/01/20 21:53 153/57 07/01/20 21:00 Room Air 07/01/20 20:00 98.6 60 18 153/57 (89) 95 07/01/20 16:00 98.4 60 18 124/63 (83) 93 07/01/20 13:19 109/55 07/01/20 12:00 98.0 60 19 129/62 (84) 93 Height (Feet): 5 Height (Inches): 5.00 Weight (Pounds): 238 GENERAL: NAD on RA HEENT: NCAT, MMM, EOMI LUNGS: Equal rise and fall of chest B/L no accessory muscle use ABDOMEN: Soft, nondistended EXTREMITIES: No cyanosis, clubbing, or edema. Current Medications Medications (Trade) Dose Ordered Sig/Jesus Route PRN Reason Start Time Stop Time Status Last Admin Dose Admin Acetaminophen (Tylenol) 650 mg Q4H PRN ORAL For Pain 06/23/20 15:15 07/23/20 15:14 Acetaminophen/ Hydrocodone Bitart ([place] 5/325) 1 tab Q4H PRN ORAL Moderate Pain (Pain Scale 4-6) 06/26/20 21:30 07/03/20 21:29 07/01/20 01:25 Apixaban (Eliquis) 2.5 mg BID ORAL 06/23/20 18:00 09/21/20 17:59 07/01/20 18:03 Aspirin (ASA) 81 mg DAILY ORAL 06/24/20 09:00 08/08/20 08:59 06/29/20 08:18 Atorvastatin Calcium (Lipitor) 10 mg BEDTIME ORAL 06/23/20 21:00 09/21/20 20:59 07/01/20 21:53 Chlorhexidine Gluconate (Cira-Hex 2%) 1 applic DAILY@1999 TOPIC 07/01/20 20:00 09/29/20 19:59 07/01/20 21:52 Docusate Sodium (Colace) 100 mg THREE TIMES A DAY ORAL 06/23/20 18:00 07/23/20 17:59 07/02/20 08:00 Gabapentin (Neurontin) 100 mg BID ORAL 06/23/20 18:00 07/23/20 17:59 07/02/20 08:00 Heparin Sodium/ Sodium Chloride (Heparin 1000 units/500ml Premix) 1,000 unit ONCE PRN IV PROCEDURE 07/02/20 09:47 07/02/20 23:59 Hydralazine HCl (Apresoline) 25 mg EVERY 8 HOURS ORAL 06/23/20 22:00 09/21/20 21:59 07/02/20 05:33 Hydralazine HCl (Apresoline) 25 mg Q4H PRN ORAL bp over 160 syst 06/23/20 15:30 09/21/20 15:29 Lidocaine/ Epinephrine (Lidocaine/ Epinephrine 2%) 40 ml ONCE PRN INJ PROCEDURE 07/02/20 09:47 07/02/20 23:59 Ondansetron HCl (Zofran) 4 mg Q6H PRN IVP Nausea & Vomiting 06/23/20 20:00 07/23/20 19:59 06/28/20 03:20 Pantoprazole (Protonix) 40 mg EVERY 12 HOURS ORAL 06/23/20 21:00 07/23/20 20:59 07/02/20 08:00 Sevelamer Carbonate (Renvela) 800 mg BID ORAL 06/26/20 18:00 09/21/20 17:59 07/02/20 08:00 Vancomycin HCl ([facility] pharmacy to dose) 1 ea DAILY PRN MISC Per rx protocol 06/24/20 12:45 07/24/20 12:44 Benjamín Montoya MD Jul 02, 2020 10:48
--- NOTE | 2020-07-02 10:54 | NUR ---
GENERATOR MECHANICPRACTICING DERMATOLOGIST SI: VOLUME OVERLOAD,HYPERKALEMIA T. 98.8 HR 60 RR 20 B/P 106/55 RA 96% IS: NEURONTIN PO PROTONIX PO ASA PO PERMACATH INSERTION MED/SURG STATUS
--- NOTE | 2020-07-02 13:06 | Cardiac Electrophysiology PN ---
Assessment/Plan Assessment/Plan 1. AFIB, On Eliquis 2.5 bid 2. Hypertension, on hydralazine 25 bid. EF 55%. 3. ESRD on HD via right chest permcath (removed now and got a Steve cathter on 06/30/20). Getting a new PermCath today 4. Hx of left arm av shunt malfunctioning 5. Left chest DDD pacemaker 6. Hx of CVA non ambulatory with dementia 7. Severe calcific PAD with left foot decub ulcer 8. Diabetes 9. Asthma 10. hx of CVA left weakness 11.GERD 12. decubitus ulcer Subjective Subjective Alert in NAD. Had HD via new Right IJ PermCath. Getting new Perm Cath placement today Objective Last 24 Hour Vital Signs Date Time Temp Pulse Resp B/P (MAP) Pulse Ox O2 Delivery O2 Flow Rate FiO2 07/02/20 12:00 98.1 60 20 111/57 (75) 95 07/02/20 09:00 Room Air 07/02/20 08:00 98.2 60 20 106/55 (72) 96 07/02/20 05:33 133/62 07/02/20 04:00 98.8 60 18 133/62 (85) 94 07/02/20 00:00 98.5 61 18 132/56 (81) 95 07/01/20 21:53 153/57 07/01/20 21:00 Room Air 07/01/20 20:00 98.6 60 18 153/57 (89) 95 07/01/20 16:00 98.4 60 18 124/63 (83) 93 07/01/20 13:19 109/55 Intake and Output 07/01/20 07/02/20 19:00 07:00 Intake Total 800 ml 240 ml Output Total 1000 ml Balance -200 ml 240 ml Intake Oral 800 ml 240 ml Hemodialysis UF 1000 ml Objective HEENT: No JVD. New Right IJ PermCAth in place LUNGS: Clear CVS: RRR. Pacer left subclavian ABDOMEN: Soft EXT: Right chest PermCath is removed. Left arm AVF fistula Triston Franco MD Jul 02, 2020 13:06
--- NOTE | 2020-07-02 13:15 | Pre-Procedure Note/Attestation ---
Pre-Procedure Note/Attestation Complete Prior to Procedure Planned Procedure: not applicable Procedure Narrative: permacath Indications for Procedure Pre-Operative Diagnosis: renal failure Attestation I attest that I discussed the nature of the procedure; its benefits; risks and complications; and alternatives (and the risks and benefits of such alternatives), prior to the procedure, with the patient (or the patient's legal patient support representative). I attest that, if there was a reasonable possibility of needing a blood t ransfusion, the patient (or the patient's legal patient support representative) was given the [facility] standardized written summary, pursuant to the Alvaro Judit Blood Safety Act ([place] Health and Safety Code # 1645, as amended). I attest that I re-evaluated the patient just prior to the surgery and that there has been no change in the patient's H&P, except as documented below: D/W pt's. daughter Heaven EstradaMello Morris MD Jul 02, 2020 13:15
--- NOTE | 2020-07-02 13:39 | General Progress Note ---
Subjective Allergies: Coded Allergies: PENICILLINS (Verified Allergy, Unknown, 04/23/20) Tolerated Cefepime 04/23/20 Objective Last 24 Hour Vital Signs Date Time Temp Pulse Resp B/P (MAP) Pulse Ox O2 Delivery O2 Flow Rate FiO2 07/02/20 13:29 98.2 65 17 152/79 (103) 100 07/02/20 13:21 98.0 60 19 131/61 (84) 99 07/02/20 13:06 98.0 60 16 129/68 (88) 10 07/02/20 13:03 60 16 07/02/20 12:00 98.1 60 20 111/57 (75) 95 07/02/20 09:00 Room Air 07/02/20 08:00 98.2 60 20 106/55 (72) 96 07/02/20 05:33 133/62 07/02/20 04:00 98.8 60 18 133/62 (85) 94 07/02/20 00:00 98.5 61 18 132/56 (81) 95 07/01/20 21:53 153/57 07/01/20 21:00 Room Air 07/01/20 20:00 98.6 60 18 153/57 (89) 95 07/01/20 16:00 98.4 60 18 124/63 (83) 93 Intake and Output 07/01/20 07/02/20 19:00 07:00 Intake Total 800 ml 240 ml Output Total 1000 ml Balance -200 ml 240 ml Intake Oral 800 ml 240 ml Hemodialysis UF 1000 ml Height (Feet): 5 Height (Inches): 5.00 Weight (Pounds): 238 Assessment/Plan Status: stable Assessment/Plan: S: I am ok O: seems comfortable, no sob or cp PHYSICAL EXAMINATION: . HEAD AND NECK: Atraumatic and normocephalic. CHEST: Clear to auscultation. HEART: S1, S2. Regular rate and rhythm. Bradycardic. MUSCULOSKELETAL: No gross lateralized motor deficit, paraparesis. stage 3 decubitus wound in calcaneal region.NEUROLOGIC: The patient is awake and alert x 2. LABORATORY AND DIAGNOSTIC DATA: Labs dated 07/02/20 reviewed Meds: reviwed and reconciled in chart ASSESSMENT: 1. Sepsis with Staph 2. hyperKalemia and Missed HD sessions 2. Decubitus wound, enlarging and infected. 3. End-stage renal disease, on temporary PermCath hemodialysis access. 2. Paroxysmal atrial fibrillation, rate is stable. 3. Diabetes type 2. 4. Hypertension. 5. Hyperlipidemia. 6. CVA-history. 7. Dementia. 8. Gastrointestinal and deep vein thrombosis prophylaxes. 9. Pain management Plan: HD- per Nephrology Nephrol-Critical care and vascular services consulted. Agree with Telemetry admission consult SW to discuss options to avoid future delays in outpatient HD Negative blood culture Discussion: D/w ID , given the initial bacteremia with Staph Capisits in this patient with long standing HD-Permcath in place. There is moderte risk for underlying line infection. Will proceed with line Extraction. Also, D/w cardiology ( Dr Franco) on Jun 29 for risk assessment for possible infective endocarditis workup . D/w Daughter on Jun 28 S/P extraction of HD access proceed with insertion of new Temp Tunel cath D/w Dr Stephenson in detailed on Jul 01 Pending Re-insertion of the Permcath Danie Banegas MD Jul 02, 2020 13:39
--- NOTE | 2020-07-02 14:25 | NUR ---
NURSE NOTES: Patient returned from radiology s/p tunnel cath placement on right chest in stable condition. Noted skin tear over right neck, wound dressed.
--- NOTE | 2020-07-02 14:57 | Brief Operative Note ---
Immediate Post Operative Note Operative Note Pre-op Diagnosis: renal failure Procedure: R IJV permacath Post-op Diagnosis: same as pre-op Surgeon: Manny Hernandez Anesthesia: MAC Specimen: none Complications: none Fluids: none Implant(s) used?: No Mello Hernandez MD Jul 02, 2020 14:57
--- NOTE | 2020-07-02 15:37 | Surgery Progress Note ---
Surgery Progress Note Subjective Symptoms: improved Additional Comments permacath today no complications comfortable Objective Last 24 Hour Vital Signs Date Time Temp Pulse Resp B/P (MAP) Pulse Ox O2 Delivery O2 Flow Rate FiO2 07/02/20 14:00 152/79 07/02/20 13:29 98.2 65 17 152/79 (103) 100 07/02/20 13:21 98.0 60 19 131/61 (84) 99 07/02/20 13:06 98.0 60 16 129/68 (88) 10 07/02/20 13:03 60 16 07/02/20 12:00 98.1 60 20 111/57 (75) 95 07/02/20 09:00 Room Air 07/02/20 08:00 98.2 60 20 106/55 (72) 96 07/02/20 05:33 133/62 07/02/20 04:00 98.8 60 18 133/62 (85) 94 07/02/20 00:00 98.5 61 18 132/56 (81) 95 07/01/20 21:53 153/57 07/01/20 21:00 Room Air 07/01/20 20:00 98.6 60 18 153/57 (89) 95 07/01/20 16:00 98.4 60 18 124/63 (83) 93 I&O Intake and Output 07/01/20 07/02/20 19:00 07:00 Intake Total 800 ml 240 ml Output Total 1000 ml Balance -200 ml 240 ml Intake Oral 800 ml 240 ml Hemodialysis UF 1000 ml Dressing: dry Wound: clean Cardiovascular: RSR Respiratory: clear Abdomen: soft, non-tender, present bowel sounds Extremities: no edema, no tenderness, no cyanosis Plan Problems: (1) Diabetic nephropathy (2) Cellulitis of left foot (3) Pacemaker (4) Anemia in chronic kidney disease (CKD) (5) History of CVA (cerebrovascular accident) (6) History of atrial fibrillation (7) COPD (chronic obstructive pulmonary disease) (8) Bradycardia (9) Diabetic nephropathy (10) Hypertensive kidney disease (11) Heel abrasion (12) Elevated troponin I level (13) Urinary tract infection due to Proteus (14) ESRD (end stage renal disease) Assessment & Plan: plan HD cath insertion resume HD per nepro (15) Volume overload (16) Hyperkalemia (17) Generalized weakness (18) Dyspnea (19) Symptomatic anemia (20) Acute on chronic renal failure (21) Anemia (22) HTN (hypertension) (23) Deep tissue injury Assessment & Plan: Pt presented on admission with Multiple Pressure injuries.Sacral DTPI noted over previously compromised area. Surrounding surgical scar. Base of Pressure Injury is indurated ,purpuric with Maroon Borders. Black discoloration with marginal erythema noted to R and L Buttocks. Linear area of hyperpigmentation noted sacral cleft. Darker skin tone without erythema or induration noted to R and L ischial tuberosities. L 1st metatarsal is black with small blood filled blister at tip of metatarsal.Web space of L 1st and L 2nd metatarsal is erythematous and macerated. Mild odor noted. Dry necrotic area noted to lateral aspect of L 5th metatarsal. Dry eschar lateral L foot (L)1cm x (W)1.5cm. Periwound is dry without erythema or fluctuance. Unstageable Pressure Injury L Heel(L)2.4cm x (W)3.5cm. Base of wound is necrotic with surrounding moist and pale skin,dry black borders. R 1st metatarsal is black. T heel is boggy, pale with dry peeling skin. Return visit to complete Skin assessment as pt was being dialyzed previous day.Pt is morbidly obese. Bilat breasts folds and abdominal folds are moist and malodorous MASD Buttocks including Bilat Ischial tuberosities. Affected areas are erythematous and denuded. Moisture Intertrigo cleft of buttocks. Full thickness Ulcer medial upper R thigh (L)1.4cm x (W)1 cm x (D)0.2cm. Base of wound is monique with scattered Biofilm, and macerated Borders. NO exudate noted. Periwound, skin is erythematous, moist and malodorous. An area of Hyperpigmentation noted to medial aspect of R thigh in close proximity to wound. Medial upper L thigh is erythematous ,denuded and malodorous. Tx.Plan: Apply Moisture Barrier Paste to buttocks, ischium, and Bilat medial upper thighs with each incontinence care. Cleanse wound medial upper L thigh with Saline. Apply Therahoney. Apply Moisture Barrier Paste periwound. Cover with Optifoam drsg. Change Daily and prn. Cleanse Sacral wound with Saline. Apply TheraHoney. Apply Moisture Barrier Paste Periwound. Cover with Optifoam drsg. Change every 3 days and prn. Apply Moisture Barrier Paste to R and L ischial tuberosities with each Incontinence care. wash L heel. apply betadine and cover with optifoam dressing Apply Cavilon Skin Barrier to R Heel. Cover with Optifoam drsg. Change every 7 days and prn. Reposition at least every 2hours or as tolerated. off-load heels with pillows. nutritional optimization DAILY ESTIMATED NEEDS: Needs based on ESRD on HD, wound obese 70.5kg abw 20-25 kcals/kg [id number] total kcals 1.8-2.5 IBW 56.8kg g protein/kg 102-142 g total protein Fluid per MD on HD NUTRITION DIAGNOSIS: Increased protein needs r/t renal dysfunction and wound healing as evidenced by pt w/ ESRD on HD, w/ L heel unstageable wound. CURRENT DIET:renal diet, no chicken PO DIET RECOMMENDATIONS: RENAL DIET/ texture per [employer] ADDITIONAL RECOMMENDATIONS: 1) Calibrated bedscale wt if adding P200 mattress + pump 2) Add NEPRO 1 tetra w/ meals w/ poor meal acceptance Prior adm w/ poor po intake 3) Wound care: continue SOLEDAD BID + Add Nephrovite x1 daily Vit C-> dosing per nephro 4) Monitor lytes and renal fxn Luis Alberto Cade Jul 02, 2020 15:37
--- NOTE | 2020-07-02 18:30 | Consultation ---
DATE OF CONSULTATION: 06/25/2020 CONSULTING PHYSICIAN: David Feng M.D. REFERRING PHYSICIAN: Danie Banegas M.D. REASON FOR CONSULTATION: Access for hemodialysis. HISTORY OF PRESENT ILLNESS: The patient is a 69-year-old morbidly obese female who is currently on dialysis with right chest PermCath. The patient has a left upper arm AV shunt placed by another physician with stent placement, which is malfunctioning. She has a left chest pacemaker. The patient is confused with dementia. All the information is obtained from her medical records. The patient currently has no other complaint. PAST MEDICAL HISTORY: As above. History of end-stage renal failure, on hemodialysis, history of right chest PermCath, left chest pacemaker, left arm AV shunt placement with stent, morbid obesity, history of stroke, nonambulatory, left foot decubitus necrosis, calcific arterial occlusive disease. MEDICATIONS: See attached MAR. ALLERGIES: She is allergic to penicillin. SOCIAL HISTORY: Unobtainable. FAMILY HISTORY: Unobtainable. REVIEW OF SYSTEMS: Unobtainable due to altered mental status. PHYSICAL EXAMINATION: VITAL SIGNS: The patient is currently afebrile at 97.7, heart rate is 88, blood pressure 150/70, respiratory rate 16. The patient has palpable radial pulses. Left upper arm AV shunt has a weak bruit CHEST: There is a left chest pacemaker in place. Right chest PermCath in place. Site is clear, dry, and intact. LUNGS: Clear to auscultation. HEART: Regular rate and rhythm. ABDOMEN: Soft. She is morbidly obese. EXTREMITIES: She has palpable femoral pulses. Absent popliteal and pedal pulses bilaterally. Feet are warm. She has left foot decubitus necrosis and ulceration noted. IMPRESSION: 1. End-stage renal failure, requiring permanent access for hemodialysis. 2. Currently on dialysis through a right chest PermCath with a malfunctioning left arm AV shunt with stent and left chest pacemaker. 3. Morbid obesity. 4. History of stroke. 5. Nonambulatory, with dementia. 6. Severe calcific arterial occlusive disease with left foot decubitus ulceration. PLAN AND RECOMMENDATIONS: 1. Antibiotics per infectious disease service. 2. Arm and leg duplex was ordered. 3. Offload the legs with DVT and decubitus precaution. 4. Podiatry evaluation and foot wound care. 5. We will schedule the patient for right arm AV shunt once cleared by infectious disease services. This can be performed as an outpatient. 6. The above was discussed at length with the patient and nurse. David Feng M.D. DR: Tashi JOB#: [id number] CC: KAY
--- NOTE | 2020-07-02 19:24 | Diagnostic Imaging Report ---
Indications: Needs long-term dialysis access Technique: Informed consent obtained by phone from patient's daughter. Patient given IV clindamycin. Total sterile technique, including sterile probe cover and sterile gel, sterile gloves, hand hygiene, hat, mask,, sterile gown, large sterile drape, and preparation with 2% chlorhexidine utilized. Local anesthesia with 1% lidocaine. No ultrasound guidance was utilized. Using the pre-existing temporary dialysis catheter, a 0.035 guidewire was inserted, directed into the inferior vena cava. Over this was passed a dilator from the dialysis catheter tray which was left in situ. The subcutaneous tract was then anesthetized with 1% lidocaine. A chest dermatotomy was made . The tunneling device was used to pull a 14.5 [place]ian 23 cm BioFlo catheter through the subcutaneous tunnel to the neck dermatotomy. A guidewire was passed through the neck introducer into the inferior vena cava, and serial dilators were passed over it, followed by the introduction of a 14.5 [place] AirGuard peel-away sheath. The catheter was then introduced into the sheath, the peel-away sheath was removed. Digital radiograph documents satisfactory catheter tip position in the high right atrium, no kinking at the insertion site. Both catheter ports aspirated and flushed. Catheter was fixed to the skin. Patient tolerated procedure well without immediate complication. Total fluoroscopy time 53.5 seconds. Total dose area product [id number] mGym2 Total number of images-one Comparison: None. Findings: Completion radiograph documents satisfactory position and course of the catheter, catheter tip at the high right atrium. Impression: Successful placement of right transjugular tunneled dialysis catheter, as described above
--- NOTE | 2020-07-02 19:39 | NUR ---
NURSE NOTES: Received report from Stanley BEAN. Rounding is done. Patient is asleep and no any distress noted at this time. Breathing is even and unlabored. Iv site is intact and patent. Dressing for wound are c/d/i. tunneled catheter on Rt upper chest is intact. Bed is on alarm, locked, and lowest position. All safety measures are provided. Call light within reach. Will continue to monitor.
--- NOTE | 2020-07-02 19:42 | NUR ---
NURSE HAND-OFF: Important Events on Shift: S/P tunnel cath placement, for HD eleonora am VIP dialysis aware, DC pending Patient Status: Stable Diet: Renal Pending Orders: None Pending Results/Labs:Labs in AM Pending MD notification: No Latest Vital Signs: Temperature 98.4 , Pulse 60 , B/P 112 /55 , Respiratory Rate 29 , O2 SAT 95 , Room Air, O2 Flow Rate . Vital Sign Comment: Latest Srivastava Fall Score: 50 Fall Risk: High Risk Safety Measures: Call light Within Reach, Bed Alarm Zone 1, Side Rails Side Rails x3, Bed position Low and Locked. Fall Precautions: Yellow Socks Yellow Gown Door Sign Patient Fall Education Report given to Justino patrick RN.
[2020-07-02] MEDS: Dyna-Hex 2% Top Sol 2oz TOPIC SCH (21:31)
[2020-07-03] VITALS: BP 117/65
[2020-07-03 04:00] VITALS: BP 134/72
[2020-07-03] MEDS: HydrALAZINE 25mg tab ORAL SCH ×3 (06:33→21:47)
--- NOTE | 2020-07-03 07:12 | NUR ---
NURSE HAND-OFF: Important Events on Shift:[plan of dialysis on morning] Patient Status: [stable] Diet: [renal] Pending Orders: [n] Pending Results/n Pending MD notification:[n] Latest Vital Signs: Temperature 97.9 , Pulse 61 , B/P 145 /75 , Respiratory Rate 18 , O2 SAT 95 , Room Air, O2 Flow Rate . Vital Sign Comment: [stable] Latest Srivastava Fall Score: 50 Fall Risk: High Risk Safety Measures: Call light Within Reach, Bed Alarm Zone 1, Side Rails Side Rails x3, Bed position Low and Locked. Fall Precautions: Yellow Socks Yellow Gown Door Sign Patient Fall Education Report given to [Danie RN].
--- NOTE | 2020-07-03 07:40 | NUR ---
NURSE NOTES: Received report from Betina BELTRAN. Patient is resting comfortably in bed, patient awake, alert, oriented x2 forgetfull, no sign of distress, HL is intact and patent. Right upper chest dressing clean dry and intact,on fall and aspiration precaution,. Bed is on alarm, locked, and lowest position. turn Q 2h for comfort and good circulation,All safety measures are provided. Call light within reach. Will continue to monitor patient condition, scheduled for HD today, HD nurse aware, call light w/n easy reach .yessica duncan
--- NOTE | 2020-07-03 07:42 | Infectious Diseases Prog Note ---
Assessment/Plan Assessment: COVID19 neg x1 (06/23n rapid COVID pCR neg) -CXR: Mild pulmonary vascular prominence. No evidence of alveolar edema. No focal consolidation. Afebrile No leukocytosis S. capitis bacteremia- likely HD cath infection as this is the same organism she was bacteremic and septic back in April 2020- it was treated at the time w/ 2 weeks of IV vancomycin but no recurrence of bacteremia --06/30 SP R IJV farhat --06/28 SP permacath removal; cath tip cx NTD --06/23 Bcx 2/4 GPC clusters; 06/25 Bcx NTD --2d echo: no vegetations seen Pyuria -u/a wbc tnct, nit -, leuk +3; ucx NTD Hyperkalemia, SP (due to missing HD sessions) hx of SEvere sepsis 2ry S. capitis bacteremia, persistent; 04/2020 SP Rx -likely HD line infection in the setting of sepsis -04/23 Bcx 1/4 Staph capitis ; 04/25 Bcx 1/4 Staph capitis; 04/27 Bcx Neg x4 (peripheral, HD line) -2d Echo: no vegetations seen Hx of L foot/ankle wound; no grossly infected- no OM on bone scan -04/28/20 Bone scan: No significant abnormality in the left heel to suggest osteomyelitis of the location of clinically described left heel wound. Mild bilateral abnormal uptake, as detailed above, likely reflecting degenerative changes -xray L foot/ankle: No acute findings in the left foot. -CRP 5.9, ESR 53 Dm2 HTN Asthma/COPD CVA w/ residual L side weakness s/p PPM asthma ESRD on HD (MWF) via permacath R upper chest GERD decubitus ulcer Afib Plan: -Continue IV Vancomycin #08/04 for S. capitis bacteremia and likely HD cath infection -05/10/20 SP IV Vancomycin #18 -05/05 SP Meropenem #4 -04/29 SP Cefepime #5 -04/25 SP Ceftriaxone #3 -04/23/20 SP Cefepime x1 -f/u cx -Monitor CBC/CMP, temperatures -f/u Bcx x2 -May need RASHAAD if recurrent bacteremia, febrile D/w RN Thank you for this consultation. Will continue to follow along with you. Subjective Allergies: Coded Allergies: PENICILLINS (Verified Allergy, Unknown, 04/23/20) Tolerated Cefepime 04/23/20 AF On RA NAD Objective Last 24 Hour Vital Signs Date Time Temp Pulse Resp B/P (MAP) Pulse Ox O2 Delivery O2 Flow Rate FiO2 07/03/20 06:33 145/75 07/03/20 04:00 97.9 61 18 134/72 (92) 95 07/03/20 00:00 98.9 60 18 117/65 (82) 96 07/02/20 21:37 109/62 07/02/20 21:00 Room Air 07/02/20 20:00 98.6 60 18 118/56 (76) 96 07/02/20 16:00 98.4 60 29 112/55 (74) 95 07/02/20 14:00 152/79 07/02/20 13:29 98.2 65 17 152/79 (103) 100 07/02/20 13:21 98.0 60 19 131/61 (84) 99 07/02/20 13:06 98.0 60 16 129/68 (88) 10 07/02/20 13:03 60 16 07/02/20 12:00 98.1 60 20 111/57 (75) 95 07/02/20 09:00 Room Air 07/02/20 08:00 98.2 60 20 106/55 (72) 96 Height (Feet): 5 Height (Inches): 5.00 Weight (Pounds): 238 Gen: NAD in bed HEENT: NCAT, EOMI, PERRL Pulm: BL chest rise Abd: Soft, NTND Ext: No c/c/e Neuro: Awake Laboratory Tests Test 07/03/20 07:10 White Blood Count Pending Red Blood Count Pending Hemoglobin Pending Hematocrit Pending Mean Corpuscular Volume Pending Mean Corpuscular Hemoglobin Pending Mean Corpuscular Hemoglobin Concent Pending Red Cell Distribution Width Pending Platelet Count Pending Mean Platelet Volume Pending Neutrophils (%) (Auto) Pending Lymphocytes (%) (Auto) Pending Monocytes (%) (Auto) Pending Eosinophils (%) (Auto) Pending Basophils (%) (Auto) Pending Sodium Level Pending Potassium Level Pending Chloride Level Pending Carbon Dioxide Level Pending Blood Urea Nitrogen Pending Creatinine Pending Estimat Glomerular Filtration Rate Pending Glucose Level Pending Uric Acid Pending Calcium Level Pending Phosphorus Level Pending Magnesium Level Pending Total Bilirubin Pending Aspartate Amino Transf (AST/SGOT) Pending Alanine Aminotransferase (ALT/SGPT) Pending Alkaline Phosphatase Pending C-Reactive Protein, Quantitative Pending Pro-B-Type Natriuretic Peptide Pending Total Protein Pending Albumin Pending Globulin Pending Current Medications Medications (Trade) Dose Ordered Sig/Jesus Route PRN Reason Start Time Stop Time Status Last Admin Dose Admin Acetaminophen (Tylenol) 650 mg Q4H PRN ORAL For Pain 06/23/20 15:15 07/23/20 15:14 Acetaminophen/ Hydrocodone Bitart ([place] 5/325) 1 tab Q4H PRN ORAL Moderate Pain (Pain Scale 4-6) 06/26/20 21:30 07/03/20 21:29 07/01/20 01:25 Apixaban (Eliquis) 2.5 mg BID ORAL 06/23/20 18:00 09/21/20 17:59 07/02/20 17:21 Aspirin (ASA) 81 mg DAILY ORAL 06/24/20 09:00 08/08/20 08:59 06/29/20 08:18 Atorvastatin Calcium (Lipitor) 10 mg BEDTIME ORAL 06/23/20 21:00 09/21/20 20:59 07/02/20 21:32 Chlorhexidine Gluconate (Cira-Hex 2%) 1 applic DAILY@1999 TOPIC 07/01/20 20:00 09/29/20 19:59 07/02/20 21:31 Docusate Sodium (Colace) 100 mg THREE TIMES A DAY ORAL 06/23/20 18:00 07/23/20 17:59 07/02/20 17:21 Gabapentin (Neurontin) 100 mg BID ORAL 06/23/20 18:00 07/23/20 17:59 07/02/20 17:21 Hydralazine HCl (Apresoline) 25 mg EVERY 8 HOURS ORAL 06/23/20 22:00 09/21/20 21:59 07/03/20 06:33 Hydralazine HCl (Apresoline) 25 mg Q4H PRN ORAL bp over 160 syst 06/23/20 15:30 09/21/20 15:29 Ondansetron HCl (Zofran) 4 mg Q6H PRN IVP Nausea & Vomiting 06/23/20 20:00 07/23/20 19:59 06/28/20 03:20 Pantoprazole (Protonix) 40 mg EVERY 12 HOURS ORAL 06/23/20 21:00 07/23/20 20:59 07/02/20 21:31 Sevelamer Carbonate (Renvela) 800 mg BID ORAL 06/26/20 18:00 09/21/20 17:59 07/02/20 17:21 Vancomycin HCl ([facility] pharmacy to dose) 1 ea DAILY PRN MISC Per rx protocol 06/24/20 12:45 07/24/20 12:44 Mariela Graham M.D. Jul 03, 2020 07:42
[2020-07-03 07:50] LABS: BASOPHILS % (AUTO) 2.1 % (0.0-2.0); EOSINOPHILS % (AUTO) 5.7 % (0.0-3.0); HEMATOCRIT 29.2 % (37.0-47.0); HEMOGLOBIN 9.8 G/DL (12.0-16.0); LYMPHOCYTES % (AUTO) 34.3 % (20.0-45.0); MEAN CORPUSCULAR VOLUME 91 FL (80-99); MONOCYTES % (AUTO) 11.7 % (1.0-10.0); NEUTROPHILS % (AUTO) 46.2 % (45.0-75.0); PLATELET COUNT 124 K/UL (150-450); RED BLOOD COUNT 3.21 M/UL (4.20-5.40); RED CELL DISTRIBUTION WIDTH 13.1 % (11.6-14.8); WHITE BLOOD COUNT 5.4 K/UL (4.8-10.8)
[2020-07-03 08:11] VITALS: BP 122/76
[2020-07-03 08:23] LABS: ALBUMIN 2.7 G/DL (3.4-5.0); ALBUMIN/GLOBULIN RATIO 0.8 (1.0-2.7); BILIRUBIN,TOTAL 0.4 MG/DL (0.2-1.0); CALCIUM 9.2 MG/DL (8.5-10.1); CREATININE 7.9 MG/DL (0.55-1.30); POTASSIUM 4.7 MMOL/L (3.5-5.1)
[2020-07-03] MEDS: Docusate 100mg cap ORAL SCH ×3 (08:34→17:05)
[2020-07-03] MEDS: Aspirin Baby 81mg ORAL SCH (08:34)
[2020-07-03] MEDS: Renvela 800mg Pkt ORAL SCH ×2 (08:35→17:05)
[2020-07-03] MEDS: Eliquis 2.5mg tablet ORAL SCH ×2 (08:35→17:05)
--- NOTE | 2020-07-03 09:33 | Nephrology Progress Note ---
Assessment/Plan Problem List: (1) ESRD (end stage renal disease) (2) Volume overload (3) Hyperkalemia (4) Bradycardia (5) Pacemaker (6) Diabetic nephropathy Assessment ESRD (end stage renal disease), missed few sessions of hemodialysis Volume overload , Hyperkalemia other conditions: -. Diabetes with diabetic nephropathy and neuropathy. -. History of CVA with left weakness. -. History of atrial fibrillation. -. History of pacemaker. Plan July 03: Patient now has a new permacath placed since yesterday. Patient due for dialysis today. Labs reviewed. Medication reviewed. Continue per PMD and consultants. July 02: Patient doing insertion of tunneled catheter today. Patient was last dialyzed yesterday morning. After insertion of tunneled catheter we arrange for dialysis tomorrow morning. July 01: Radiology was unable to put tunneled catheter for patient yesterday. Temporary jugular catheter was inserted last evening and patient received dialysis this morning. Patient due placement of a tunneled catheter tomorrow. Renal parameters stable. Continue same treatment plan. June 30: Patient due placement of permacath today followed by dialysis. Continue with same management. June 29: Labs reviewed. Status quo. Dialyzed June 27. Due for dialysis June 30 tomorrow. Permacath removed yesterday and will be reinserted tomorrow prior to dialysis. Continue per consultants. June 28: Labs reviewed. Status quo. Dialyzed yesterday June 27. Discussed with ID. Patient bacteremic with the same organism of previous admission. Suggestion to remove the current permacath and replaced with a new one at the same time. PMD and vascular surgeon aware. Due for next dialysis on June 30. June 27: Lab reviewed. Status quo. Due for dialysis today. Stable from renal standpoint of view. Continue per PMD and consultants. June 26: Patient stable. Dialyzed yesterday. Labs reviewed. Due for dialysis tomorrow. Continue per vascular surgical recommendation. June 25: Clinically stable. Labs reviewed. Medication list reviewed. Due for dialysis today. Continue with same management. Patient received dialysis yesterday. Will attempt dialysis again tomorrow. Labs, medications reviewed. Continue per consultants. Subjective ROS Limited/Unobtainable: No Constitutional: Reports: malaise Objective Objective Last 24 Hour Vital Signs Date Time Temp Pulse Resp B/P (MAP) Pulse Ox O2 Delivery O2 Flow Rate FiO2 9/26/20 08:11 97.5 63 18 122/76 (91) 96 07/03/20 06:33 145/75 07/03/20 04:00 97.9 61 18 134/72 (92) 95 07/03/20 00:00 98.9 60 18 117/65 (82) 96 07/02/20 21:37 109/62 07/02/20 21:00 Room Air 07/02/20 20:00 98.6 60 18 118/56 (76) 96 07/02/20 16:00 98.4 60 29 112/55 (74) 95 07/02/20 14:00 152/79 07/02/20 13:29 98.2 65 17 152/79 (103) 100 07/02/20 13:21 98.0 60 19 131/61 (84) 99 07/02/20 13:06 98.0 60 16 129/68 (88) 10 07/02/20 13:03 60 16 07/02/20 12:00 98.1 60 20 111/57 (75) 95 Intake and Output 07/02/20 07/03/20 19:00 07:00 Intake Total 720 ml 360 ml Balance 720 ml 360 ml Intake Oral 720 ml 360 ml Laboratory Tests 07/03/20 07:10: White Blood Count 5.4, Red Blood Count 3.21L, Hemoglobin 9.8L, Hematocrit 29.2L, Mean Corpuscular Volume 91, Mean Corpuscular Hemoglobin 30.5, Mean Corpuscular Hemoglobin Concent 33.6, Red Cell Distribution Width 13.1, Platelet Count 124L, Mean Platelet Volume 8.0, Neutrophils (%) (Auto) 46.2, Lymphocytes (%) (Auto) 34.3, Monocytes (%) (Auto) 11.7H, Eosinophils (%) (Auto) 5.7H, Basophils (%) (Auto) 2.1H, Sodium Level 138, Potassium Level 4.7, Chloride Level 103, Carbon Dioxide Level 28, Anion Gap 7, Blood Urea Nitrogen 51H, Creatinine 7.9H, Estimat Glomerular Filtration Rate 6.1, Glucose Level 93, Uric Acid 4.2, Calcium Level 9.2, Phosphorus Level 4.0, Magnesium Level 2.6H, Total Bilirubin 0.4, Aspartate Amino Transf (AST/SGOT) 17, Alanine Aminotransferase (ALT/SGPT) 13, Alkaline Phosphatase 54, C-Reactive Protein, Quantitative 1.5H, Pro-B-Type Natriuretic P eptide 5544H, Total Protein 6.1L, Albumin 2.7L, Globulin 3.4, Albumin/Globulin Ratio 0.8L Height (Feet): 5 Height (Inches): 5.00 Weight (Pounds): 238 General Appearance: no apparent distress Cardiovascular: normal rate Respiratory/Chest: lungs clear Abdomen: soft, other - Obese Objective No change Manas Stephenson MD Jul 03, 2020 09:33
--- NOTE | 2020-07-03 09:52 | General Progress Note ---
Subjective Allergies: Coded Allergies: PENICILLINS (Verified Allergy, Unknown, 04/23/20) Tolerated Cefepime 04/23/20 Objective Last 24 Hour Vital Signs Date Time Temp Pulse Resp B/P (MAP) Pulse Ox O2 Delivery O2 Flow Rate FiO2 07/03/20 08:20 Room Air 07/03/20 08:11 97.5 63 18 122/76 (91) 96 07/03/20 06:33 145/75 07/03/20 04:00 97.9 61 18 134/72 (92) 95 07/03/20 00:00 98.9 60 18 117/65 (82) 96 07/02/20 21:37 109/62 07/02/20 21:00 Room Air 07/02/20 20:00 98.6 60 18 118/56 (76) 96 07/02/20 16:00 98.4 60 29 112/55 (74) 95 07/02/20 14:00 152/79 07/02/20 13:29 98.2 65 17 152/79 (103) 100 07/02/20 13:21 98.0 60 19 131/61 (84) 99 07/02/20 13:06 98.0 60 16 129/68 (88) 10 07/02/20 13:03 60 16 07/02/20 12:00 98.1 60 20 111/57 (75) 95 Intake and Output 07/02/20 07/03/20 19:00 07:00 Intake Total 720 ml 360 ml Balance 720 ml 360 ml Intake Oral 720 ml 360 ml Laboratory Tests 07/03/20 07:10: White Blood Count 5.4, Red Blood Count 3.21L, Hemoglobin 9.8L, Hematocrit 29.2L, Mean Corpuscular Volume 91, Mean Corpuscular Hemoglobin 30.5, Mean Corpuscular Hemoglobin Concent 33.6, Red Cell Distribution Width 13.1, Platelet Count 124L, Mean Platelet Volume 8.0, Neutrophils (%) (Auto) 46.2, Lymphocytes (%) (Auto) 34.3, Monocytes (%) (Auto) 11.7H, Eosinophils (%) (Auto) 5.7H, Basophils (%) (Auto) 2.1H, Sodium Level 138, Potassium Level 4.7, Chloride Level 103, Carbon Dioxide Level 28, Anion Gap 7, Blood Urea Nitrogen 51H, Creatinine 7.9H, Estimat Glomerular Filtration Rate 6.1, Glucose Level 93, Uric Acid 4.2, Calcium Level 9.2, Phosphorus Level 4.0, Magnesium Level 2.6H, Total Bilirubin 0.4, Aspartate Amino Transf (AST/SGOT) 17, Alanine Aminotransferase (ALT/SGPT) 13, Alkaline Phosphatase 54, C-Reactive Protein, Quantitative 1.5H, Pro-B-Type Natriuretic Peptide 5544H, Total Protein 6.1L, Albumin 2.7L, Globulin 3.4, Albumin/Globulin Ratio 0.8L Height (Feet): 5 Height (Inches): 5.00 Weight (Pounds): 238 Assessment/Plan Status: stable Assessment/Plan: S: I am ok O: seems comfortable, no sob or cp PHYSICAL EXAMINATION: . HEAD AND NECK: Atraumatic and normocephalic. CHEST: Clear to auscultation. HEART: S1, S2. Regular rate and rhythm. Bradycardic. MUSCULOSKELETAL: New Permcath in right upper chest , No gross lateralized motor deficit, paraparesis. stage 3 decubitus wound in calcaneal region.NEUROLOGIC: The patient is awake and alert x 2. LABORATORY AND DIAGNOSTIC DATA: Labs dated 07/02/20 reviewed Meds: reviwed and reconciled in chart ASSESSMENT: 1. Sepsis with Staph 2. hyperKalemia and Missed HD sessions 2. Decubitus wound, enlarging and infected. 3. End-stage renal disease, on temporary PermCath hemodialysis access. 2. Paroxysmal atrial fibrillation, rate is stable. 3. Diabetes type 2. 4. Hypertension. 5. Hyperlipidemia. 6. CVA-history. 7. Dementia. 8. Gastrointestinal and deep vein thrombosis prophylaxes. 9. Pain management Plan: HD- per Nephrology Nephrol-Critical care and vascular services consulted. Agree with Telemetry admission consult SW to discuss options to avoid future delays in outpatient HD Negative blood culture Discussion: D/w ID , given the initial bacteremia with Staph Capisits in this patient with long standing HD-Permcath in place. There is moderte risk for underlying line infection. Will proceed with line Extraction. Also, D/w cardiology ( Dr Franco) on Jun 29 for risk assessment for possible infective endocarditis workup . D/w Daughter on Jun 28 S/P extraction of HD access proceed with insertion of new Temp Tunel cath D/w Dr Stephenson in detailed on Jul 01 S/P Re-insertion of the Permcath once ok from nephrology viewpoint. may be followed as o./p Danie Banegas MD Jul 03, 2020 09:52
--- NOTE | 2020-07-03 10:54 | Pulmonology Progress Note ---
Subjective ROS Limited/Unobtainable: No Interval Events: None new Constitutional: Reports: no symptoms HEENT: Repors: no symptoms Respiratory: Reports: no symptoms Cardiovascular: Reports: no symptoms Gastrointestinal/Abdominal: Reports: no symptoms Genitourinary: Reports: no symptoms Allergies: Coded Allergies: PENICILLINS (Verified Allergy, Unknown, 04/23/20) Tolerated Cefepime 04/23/20 Objective Last 24 Hour Vital Signs Date Time Temp Pulse Resp B/P (MAP) Pulse Ox O2 Delivery O2 Flow Rate FiO2 07/03/20 08:20 Room Air 07/03/20 08:11 97.5 63 18 122/76 (91) 96 07/03/20 06:33 145/75 07/03/20 04:00 97.9 61 18 134/72 (92) 95 07/03/20 00:00 98.9 60 18 117/65 (82) 96 07/02/20 21:37 109/62 07/02/20 21:00 Room Air 07/02/20 20:00 98.6 60 18 118/56 (76) 96 07/02/20 16:00 98.4 60 29 112/55 (74) 95 07/02/20 14:00 152/79 07/02/20 13:29 98.2 65 17 152/79 (103) 100 07/02/20 13:21 98.0 60 19 131/61 (84) 99 07/02/20 13:06 98.0 60 16 129/68 (88) 10 07/02/20 13:03 60 16 07/02/20 12:00 98.1 60 20 111/57 (75) 95 Intake and Output 07/02/20 07/03/20 19:00 07:00 Intake Total 720 ml 360 ml Balance 720 ml 360 ml Intake Oral 720 ml 360 ml General Appearance: WD/WN HEENT: normocephalic Respiratory: chest wall non-tender Cardiovascular: normal peripheral pulses Laboratory Tests 07/03/20 07:10: White Blood Count 5.4, Red Blood Count 3.21L, Hemoglobin 9.8L, Hematocrit 29.2L, Mean Corpuscular Volume 91, Mean Corpuscular Hemoglobin 30.5, Mean Corpuscular Hemoglobin Concent 33.6, Red Cell Distribution Width 13.1, Platelet Count 124L, Mean Platelet Volume 8.0, Neutrophils (%) (Auto) 46.2, Lymphocytes (%) (Auto) 34.3, Monocytes (%) (Auto) 11.7H, Eosinophils (%) (Auto) 5.7H, Basophils (%) (Auto) 2.1H, Sodium Level 138, Potassium Level 4.7, Chloride Level 103, Carbon Dioxide Level 28, Anion Gap 7, Blood Urea Nitrogen 51H, Creatinine 7.9H, Estimat Glomerular Filtration Rate 6.1, Glucose Level 93, Uric Acid 4.2, Calcium Level 9.2, Phosphorus Level 4.0, Magnesium Level 2.6H, Total Bilirubin 0.4, Aspartate Amino Transf (AST/SGOT) 17, Alanine Aminotransferase (ALT/SGPT) 13, Alkaline Phosphatase 54, C-Reactive Protein, Quantitative 1.5H, Pro-B-Type Natriuretic Peptide 5544H, Total Protein 6.1L, Albumin 2.7L, Globulin 3.4, Albumin/Globulin Ratio 0.8L Current Medications Medications (Trade) Dose Ordered Sig/Jesus Route PRN Reason Start Time Stop Time Status Last Admin Dose Admin Acetaminophen (Tylenol) 650 mg Q4H PRN ORAL For Pain 06/23/20 15:15 07/23/20 15:14 Acetaminophen/ Hydrocodone Bitart ([place] 5/325) 1 tab Q4H PRN ORAL Moderate Pain (Pain Scale 4-6) 06/26/20 21:30 07/03/20 21:29 07/01/20 01:25 Apixaban (Eliquis) 2.5 mg BID ORAL 06/23/20 18:00 09/21/20 17:59 07/03/20 08:35 Aspirin (ASA) 81 mg DAILY ORAL 06/24/20 09:00 08/08/20 08:59 07/03/20 08:34 Atorvastatin Calcium (Lipitor) 10 mg BEDTIME ORAL 06/23/20 21:00 09/21/20 20:59 07/02/20 21:32 Chlorhexidine Gluconate (Cira-Hex 2%) 1 applic DAILY@1999 TOPIC 07/01/20 20:00 09/29/20 19:59 07/02/20 21:31 Docusate Sodium (Colace) 100 mg THREE TIMES A DAY ORAL 06/23/20 18:00 07/23/20 17:59 07/03/20 08:34 Gabapentin (Neurontin) 100 mg BID ORAL 06/23/20 18:00 07/23/20 17:59 07/03/20 08:35 Hydralazine HCl (Apresoline) 25 mg EVERY 8 HOURS ORAL 06/23/20 22:00 09/21/20 21:59 07/03/20 06:33 Hydralazine HCl (Apresoline) 25 mg Q4H PRN ORAL bp over 160 syst 06/23/20 15:30 09/21/20 15:29 Ondansetron HCl (Zofran) 4 mg Q6H PRN IVP Nausea & Vomiting 06/23/20 20:00 07/23/20 19:59 06/28/20 03:20 Pantoprazole (Protonix) 40 mg EVERY 12 HOURS ORAL 06/23/20 21:00 07/23/20 20:59 07/03/20 08:34 Sevelamer Carbonate (Renvela) 800 mg BID ORAL 06/26/20 18:00 09/21/20 17:59 07/03/20 08:35 Vancomycin HCl ([facility] pharmacy to dose) 1 ea DAILY PRN MISC Per rx protocol 06/24/20 12:45 07/24/20 12:44 Assessment/Plan Assessment/Plan IMPRESSION: 1. Hyperkalemia. 2. Pulmonary edema. 3. Missed dialysis. 4. Diabetes mellitus. 5. Hypertension. 6. History of COPD. DISCUSSION: monitor fluid status Continue HD Currently saturating well on room air. meds noted impression, plan, and exam edited and reviewed in detail care discussed with Travis Quinteros MD Jul 03, 2020 10:54
--- NOTE | 2020-07-03 12:30 | NUR ---
nurse notes HD done by HD nurse with 0 net UF , patient resting comfortably in bed yessica duncan
[2020-07-03 13:18] VITALS: BP 101/30
[2020-07-03 15:51] VITALS: BP 130/79
--- NOTE | 2020-07-03 16:01 | Cardiac Electrophysiology PN ---
Assessment/Plan Assessment/Plan 1. AFIB, On Eliquis 2.5 bid 2. Hypertension, on hydralazine 25 bid. EF 55%. 3. ESRD on HD via right chest permcath ( removed now and got a Steve cathter on 06/30/20 ). S/P new PermCath 07/02/20 4. Hx of left arm av shunt malfunctioning 5. Left chest DDD pacemaker 6. Hx of CVA non ambulatory with dementia 7. Severe calcific PAD with left foot decub ulcer 8. Diabetes 9. Asthma 10. hx of CVA left weakness 11.GERD 12. decubitus ulcer Subjective Subjective Alert in NAD. Had HD via new Right IJ PermCath. Got new Perm Cath placement yesterday. Objective Last 24 Hour Vital Signs Date Time Temp Pulse Resp B/P (MAP) Pulse Ox O2 Delivery O2 Flow Rate FiO2 07/03/20 15:51 98.5 60 19 130/79 (96) 96 07/03/20 13:20 101/30 07/03/20 13:18 97.2 60 18 101/30 (53) 96 07/03/20 08:20 Room Air 07/03/20 08:11 97.5 63 18 122/76 (91) 96 07/03/20 06:33 145/75 07/03/20 04:00 97.9 61 18 134/72 (92) 95 07/03/20 00:00 98.9 60 18 117/65 (82) 96 07/02/20 21:37 109/62 07/02/20 21:00 Room Air 07/02/20 20:00 98.6 60 18 118/56 (76) 96 07/02/20 16:00 98.4 60 29 112/55 (74) 95 Intake and Output 07/02/20 07/03/20 19:00 07:00 Intake Total 720 ml 360 ml Balance 720 ml 360 ml Intake Oral 720 ml 360 ml Laboratory Tests Test 07/03/20 07:10 White Blood Count 5.4 K/UL (4.8-10.8) Red Blood Count 3.21 M/UL (4.20-5.40) L Hemoglobin 9.8 G/DL (12.0-16.0) L Hematocrit 29.2 % (37.0-47.0) L Mean Corpuscular Volume 91 FL (80-99) Mean Corpuscular Hemoglobin 30.5 PG (27.0-31.0) Mean Corpuscular Hemoglobin Concent 33.6 G/DL (32.0-36.0) Red Cell Distribution Width 13.1 % (11.6-14.8) Platelet Count 124 K/UL (150-450) L Mean Platelet Volume 8.0 FL (6.5-10.1) Neutrophils (%) (Auto) 46.2 % (45.0-75.0) Lymphocytes (%) (Auto) 34.3 % (20.0-45.0) Monocytes (%) (Auto) 11.7 % (1.0-10.0) H Eosinophils (%) (Auto) 5.7 % (0.0-3.0) H Basophils (%) (Auto) 2.1 % (0.0-2.0) H Sodium Level 138 MMOL/L (136-145) Potassium Level 4.7 MMOL/L (3.5-5.1) Chloride Level 103 MMOL/L (98-107) Carbon Dioxide Level 28 MMOL/L (21-32) Anion Gap 7 mmol/L (5-15) Blood Urea Nitrogen 51 mg/dL (7-18) H Creatinine 7.9 MG/DL (0.55-1.30) H Estimat Glomerular Filtration Rate 6.1 mL/min (>60) Glucose Level 93 MG/DL (74-106) Uric Acid 4.2 MG/DL (2.6-7.2) Calcium Level 9.2 MG/DL (8.5-10.1) Phosphorus Level 4.0 MG/DL (2.5-4.9) Magnesium Level 2.6 MG/DL (1.8-2.4) H Total Bilirubin 0.4 MG/DL (0.2-1.0) Aspartate Amino Transf (AST/SGOT) 17 U/L (15-37) Alanine Aminotransferase (ALT/SGPT) 13 U/L (12-78) Alkaline Phosphatase 54 U/L (46-116) C-Reactive Protein, Quantitative 1.5 mg/dL (0.00-0.90) H Pro-B-Type Natriuretic Peptide 5544 pg/mL (0-125) H Total Protein 6.1 G/DL (6.4-8.2) L Albumin 2.7 G/DL (3.4-5.0) L Globulin 3.4 g/dL Albumin/Globulin Ratio 0.8 (1.0-2.7) L Objective HEENT: No JVD. New Right IJ PermCAth in place LUNGS: Clear CVS: RRR. Pacer left subclavian ABDOMEN: Soft EXT: Right chest PermCath is removed. Left arm AVF fistula Triston Franco MD Jul 03, 2020 16:01
--- NOTE | 2020-07-03 18:23 | NUR ---
NURSE HAND-OFF: Important Events on Shift:[HD done ] Patient Status: [improving] Diet: [renal diet] Pending Orders: [[place] eleonora] Pending Results/Labs:[none] Pending MD notification:[none] Latest Vital Signs: Temperature 98.5 , Pulse 60 , B/P 130 /79 , Respiratory Rate 19 , O2 SAT 96 , Room Air, O2 Flow Rate . Vital Sign Comment: [stable] Latest Srivastava Fall Score: 50 Fall Risk: High Risk Safety Measures: Call light Within Reach, Bed Alarm Zone 1, Side Rails Side Rails x3, Bed position Low and Locked. Fall Precautions: Yellow Socks Yellow Gown Door Sign Patient Fall Education Report given to [[facility] SHIFT VIKAS LEZAMA RN]. Addendum: 07/03/20 at 1928 by SURJIT SAMANIEGO RN RN NURSE HAND-OFF: Important Events on Shift:[HD done ] Patient Status: [improving] Diet: [renal diet] Pending Orders: [VT eleonora] Pending Results/Labs:[none] Pending MD notification:[none] Latest Vital Signs: Temperature 98.5 , Pulse 60 , B/P 130 /79 , Respiratory Rate 19 , O2 SAT 96 , Room Air, O2 Flow Rate . Vital Sign Comment: [stable] Latest Srivastava Fall Score: 50 Fall Risk: High Risk Safety Measures: Call light Within Reach, Bed Alarm Zone 1, Side Rails Side Rails x3, Bed position Low and Locked. Fall Precautions: Yellow Socks Yellow Gown Door Sign Patient Fall Education Report given to Jacqueline pinto RN accordingly VIKAS LEZAMA].
--- NOTE | 2020-07-03 19:25 | NUR ---
NURSE NOTES: Received report from slaav sales rn. patient is asleep. on room air. no sob. with iv line on the right forearm, saline lock. per slava, 's/p hd with no output". bed locked and in lowest position. call light and light button within easy reach. bed alarm on. will continue plan of care.
[2020-07-03 20:00] VITALS: BP 138/67
--- NOTE | 2020-07-03 20:00 | Surgery Progress Note ---
Surgery Progress Note Subjective Additional Comments improved receiving HD today no n/v Objective Last 24 Hour Vital Signs Date Time Temp Pulse Resp B/P (MAP) Pulse Ox O2 Delivery O2 Flow Rate FiO2 07/03/20 15:51 98.5 60 19 130/79 (96) 96 07/03/20 13:20 101/30 07/03/20 13:18 97.2 60 18 101/30 (53) 96 07/03/20 08:20 Room Air 07/03/20 08:11 97.5 63 18 122/76 (91) 96 07/03/20 06:33 145/75 07/03/20 04:00 97.9 61 18 134/72 (92) 95 07/03/20 00:00 98.9 60 18 117/65 (82) 96 07/02/20 21:37 109/62 07/02/20 21:00 Room Air I&O Intake and Output 07/02/20 07/03/20 19:00 07:00 Intake Total 720 ml 360 ml Balance 720 ml 360 ml Intake Oral 720 ml 360 ml Dressing: dry Wound: clean Cardiovascular: RSR Respiratory: clear Abdomen: non-tender, present bowel sounds Extremities: no tenderness, no cyanosis Laboratory Tests Test 07/03/20 07:10 White Blood Count 5.4 K/UL (4.8-10.8) Red Blood Count 3.21 M/UL (4.20-5.40) L Hemoglobin 9.8 G/DL (12.0-16.0) L Hematocrit 29.2 % (37.0-47.0) L Mean Corpuscular Volume 91 FL (80-99) Mean Corpuscular Hemoglobin 30.5 PG (27.0-31.0) Mean Corpuscular Hemoglobin Concent 33.6 G/DL (32.0-36.0) Red Cell Distribution Width 13.1 % (11.6-14.8) Platelet Count 124 K/UL (150-450) L Mean Platelet Volume 8.0 FL (6.5-10.1) Neutrophils (%) (Auto) 46.2 % (45.0-75.0) Lymphocytes (%) (Auto) 34.3 % (20.0-45.0) Monocytes (%) (Auto) 11.7 % (1.0-10.0) H Eosinophils (%) (Auto) 5.7 % (0.0-3.0) H Basophils (%) (Auto) 2.1 % (0.0-2.0) H Sodium Level 138 MMOL/L (136-145) Potassium Level 4.7 MMOL/L (3.5-5.1) Chloride Level 103 MMOL/L (98-107) Carbon Dioxide Level 28 MMOL/L (21-32) Anion Gap 7 mmol/L (5-15) Blood Urea Nitrogen 51 mg/dL (7-18) H Creatinine 7.9 MG/DL (0.55-1.30) H Estimat Glomerular Filtration Rate 6.1 mL/min (>60) Glucose Level 93 MG/DL (74-106) Uric Acid 4.2 MG/DL (2.6-7.2) Calcium Level 9.2 MG/DL (8.5-10.1) Phosphorus Level 4.0 MG/DL (2.5-4.9) Magnesium Level 2.6 MG/DL (1.8-2.4) H Total Bilirubin 0.4 MG/DL (0.2-1.0) Aspartate Amino Transf (AST/SGOT) 17 U/L (15-37) Alanine Aminotransferase (ALT/SGPT) 13 U/L (12-78) Alkaline Phosphatase 54 U/L (46-116) C-Reactive Protein, Quantitative 1.5 mg/dL (0.00-0.90) H Pro-B-Type Natriuretic Peptide 5544 pg/mL (0-125) H Total Protein 6.1 G/DL (6.4-8.2) L Albumin 2.7 G/DL (3.4-5.0) L Globulin 3.4 g/dL Albumin/Globulin Ratio 0.8 (1.0-2.7) L Plan Problems: (1) Diabetic nephropathy (2) Cellulitis of left foot (3) Pacemaker (4) Anemia in chronic kidney disease (CKD) (5) History of CVA (cerebrovascular accident) (6) History of atrial fibrillation (7) COPD (chronic obstructive pulmonary disease) (8) Bradycardia (9) Diabetic nephropathy (10) Hypertensive kidney disease (11) Heel abrasion (12) Elevated troponin I level (13) Urinary tract infection due to Proteus (14) ESRD (end stage renal disease) Assessment & Plan: plan HD cath insertion resume HD per nepro (15) Volume overload (16) Hyperkalemia (17) Generalized weakness (18) Dyspnea (19) Symptomatic anemia (20) Acute on chronic renal failure (21) Anemia (22) HTN (hypertension) (23) Deep tissue injury Assessment & Plan: Pt presented on admission with Multiple Pressure injuries.Sacral DTPI noted over previously compromised area. Surrounding surgical scar. Base of Pressure Injury is indurated ,purpuric with Maroon Borders. Black discoloration with marginal erythema noted to R and L Buttocks. Linear area of hyperpigmentation noted sacral cleft. Darker skin tone without erythema or induration noted to R and L ischial tuberosities. L 1st metatarsal is black with small blood filled blister at tip of metatarsal.Web space of L 1st and L 2nd metatarsal is erythematous and macera mahesh. Mild odor noted. Dry necrotic area noted to lateral aspect of L 5th metatarsal. Dry eschar lateral L foot (L)1cm x (W)1.5cm. Periwound is dry without erythema or fluctuance. Unstageable Pressure Injury L Heel(L)2.4cm x (W)3.5cm. Base of wound is necrotic with surrounding moist and pale skin,dry black borders. R 1st metatarsal is black. T heel is boggy, pale with dry peeling skin. Return visit to complete Skin assessment as pt was being dialyzed previous day.Pt is morbidly obese. Bilat breasts folds and abdominal folds are moist and malodorous MASD Buttocks including Bilat Ischial tuberosities. Affected areas are erythematous and denuded. Moisture Intertrigo cleft of buttocks. Full thickness Ulcer medial upper R thigh (L)1.4cm x (W)1 cm x (D)0.2cm. Base of wound is monique with scattered Biofilm, and macerated Borders. NO exudate noted. Periwound, skin is erythematous, moist and malodorous. An area of Hyperpigmentation noted to medial aspect of R thigh in close proximity to wound. Medial upper L thigh is erythematous ,denuded and malodorous. Tx.Plan: Apply Moisture Barrier Paste to buttocks, ischium, and Bilat medial upper thighs with each incontinence care. Cleanse wound medial upper L thigh with Saline. Apply Therahoney. Apply Moisture Barrier Paste periwound. Cover with Optifoam drsg. Change Daily and prn. Cleanse Sacral wound with Saline. Apply TheraHoney. Apply Moisture Barrier Paste Periwound. Cover with Optifoam drsg. Change every 3 days and prn. Apply Moisture Barrier Paste to R and L ischial tuberosities with each Incontinence care. wash L heel. apply betadine and cover with optifoam dressing Apply Cavilon Skin Barrier to R Heel. Cover with Optifoam drsg. Change every 7 days and prn. Reposition at least every 2hours or as tolerated. off-load heels with pillows. nutritional optimization DAILY ESTIMATED NEEDS: Needs based on ESRD on HD, wound obese 70.5kg abw 20-25 kcals/kg 2015-2200 total kcals 1.8-2.5 IBW 56.8kg g protein/kg 102-142 g total protein Fluid per MD on HD NUTRITION DIAGNOSIS: Increased protein needs r/t renal dysfunction and wound healing as evidenced by pt w/ ESRD on HD, w/ L heel unstageable wound. CURRENT DIET:renal diet, no chicken PO DIET RECOMMENDATIONS: RENAL DIET/ texture per TERMITE TECHNICIAN ADDITIONAL RECOMMENDATIONS: 1) Calibrated bedscale wt if adding P200 mattress + pump 2) Add NEPRO 1 tetra w/ meals w/ poor meal acceptance Prior adm w/ poor po intake 3) Wound care: continue SOLEDAD BID + Add Nephrovite x1 daily Vit C-> dosing per nephro 4) Monitor lytes and renal fxn Luis Alberto Cade Jul 03, 2020 20:00
[2020-07-03] MEDS: Dyna-Hex 2% Top Sol 2oz TOPIC SCH (20:58)
[2020-07-04] VITALS: BP 125/70
--- NOTE | 2020-07-04 | NUR ---
NURSE NOTES: PAGED DR. KEITA FOR THE ALBURTIS ORDER THAT WAS DISCONTINUED. PATIENT COMPLAINTS OF PAIN AND AGREED TO TAKE TYLENOL FOR THE MEAN TIME.
--- NOTE | 2020-07-04 01:00 | NUR ---
NURSE NOTES: PATIENT IS ASLEEP. NO COMPLAINTS OF ANY PAIN AND DISCOMFORT. PAGED DR. KEITA, AWAITING FOR CALL BACK. CHARGE NURSE MADE AWARE.
[2020-07-04 04:00] VITALS: BP 146/80
[2020-07-04] MEDS: HydrALAZINE 25mg tab ORAL SCH ×3 (06:00→22:06)
--- NOTE | 2020-07-04 06:41 | NUR ---
NURSE HAND-OFF: Important Events on Shift: WOUND DRESSING CHANGED, PAIN MNGT, S/P HD YESTERDAY Patient Status: STABLE Diet: RENAL DIET Pending Orders: Pending Results/Labs: Pending MD notification: Latest Vital Signs: Temperature 98.1 , Pulse 60 , B/P 109 /70 , Respiratory Rate 19 , O2 SAT 96 , Room Air, O2 Flow Rate . Vital Sign Comment: Latest Srivastava Fall Score: 50 Fall Risk: High Risk Safety Measures: Call light Within Reach, Bed Alarm Zone 1, Side Rails Side Rails x3, Bed position Low and Locked. Fall Precautions: Yellow Socks Yellow Gown Door Sign Patient Fall Education
--- NOTE | 2020-07-04 07:44 | NUR ---
HAND-OFF: Report given to VIKAS SMITH.
[2020-07-04 08:00] VITALS: BP 155/81
--- NOTE | 2020-07-04 08:08 | Surgery Progress Note ---
Surgery Progress Note Subjective Symptoms: improved, tolerating diet, passing flatus, BM, pain decreased Objective Last 24 Hour Vital Signs Date Time Temp Pulse Resp B/P (MAP) Pulse Ox O2 Delivery O2 Flow Rate FiO2 07/04/20 08:00 98.0 61 18 155/81 (105) 98 07/04/20 06:00 109/70 07/04/20 04:00 98.1 60 19 146/80 (102) 96 07/04/20 01:11 97.7 07/04/20 00:00 97.7 60 20 125/70 (88) 95 07/03/20 21:47 129/87 07/03/20 21:00 Room Air 07/03/20 20:00 97.2 70 20 138/67 (90) 95 07/03/20 15:51 98.5 60 19 130/79 (96) 96 07/03/20 13:20 101/30 07/03/20 13:18 97.2 60 18 101/30 (53) 96 07/03/20 08:20 Room Air 07/03/20 08:11 97.5 63 18 122/76 (91) 96 I&O Intake and Output 07/03/20 07/04/20 19:00 07:00 Intake Total 600 ml 300 ml Output Total 0 ml Balance 600 ml 300 ml Intake Oral 300 ml Other 600 ml Hemodialysis UF 0 ml # Voids 2 Dressing: dry Wound: clean Cardiovascular: RSR Respiratory: clear Abdomen: soft, non-tender, present bowel sounds Extremities: edema, no tenderness, no cyanosis, pulses, other Laboratory Tests Test 07/04/20 06:55 Random Vancomycin Level Pending Plan Problems: (1) Diabetic nephropathy (2) Cellulitis of left foot (3) Pacemaker (4) Anemia in chronic kidney disease (CKD) (5) History of CVA (cerebrovascular accident) (6) History of atrial fibrillation (7) COPD (chronic obstructive pulmonary disease) (8) Bradycardia (9) Diabetic nephropathy (10) Hypertensive kidney disease (11) Heel abrasion (12) Elevated troponin I level (13) Urinary tract infection due to Proteus (14) ESRD (end stage renal disease) Assessment & Plan: plan HD cath insertion resume HD per nepro (15) Volume overload (16) Hyperkalemia (17) Generalized weakness (18) Dyspnea (19) Symptomatic anemia (20) Acute on chronic renal failure (21) Anemia (22) HTN (hypertension) (23) Deep tissue injury Assessment & Plan: Pt presented on admission with Multiple Pressure injuries.Sacral DTPI noted over previously compromised area. Surrounding surgical scar. Base of Pressure Injury is indurated ,purpuric with Maroon Borders. Black discoloration with marginal erythema noted to R and L Buttocks. Linear area of hyperpigmentation noted sacral cleft. Darker skin tone without erythema or induration noted to R and L ischial tuberosities. L 1st metatarsal is black with small blood filled blister at tip of metatarsal.W eb space of L 1st and L 2nd metatarsal is erythematous and macerated. Mild odor noted. Dry necrotic area noted to lateral aspect of L 5th metatarsal. Dry eschar lateral L foot (L)1cm x (W)1.5cm. Periwound is dry without erythema or fluctuance. Unstageable Pressure Injury L Heel(L)2.4cm x (W)3.5cm. Base of wound is necrotic with surrounding moist and pale skin,dry black borders. R 1st metatarsal is black. T heel is boggy, pale with dry peeling skin. Return visit to complete Skin assessment as pt was being dialyzed previous day.Pt is morbidly obese. Bilat breasts folds and abdominal folds are moist and malodorous MASD Buttocks including Bilat Ischial tuberosities. Affected areas are erythematous and denuded. Moisture Intertrigo hardy cleft of buttocks. Full thickness Ulcer medial upper R thigh (L)1.4cm x (W)1 cm x (D)0.2cm. Base of wound is monique with scattered Biofilm, and macerated Borders. NO exudate noted. Periwound, skin is erythematous, moist and malodorous. An area of Hyperpigmentation noted to medial aspect of R thigh in close proximity to wound. Medial upper L thigh is erythematous ,denuded and malodorous. Tx.Plan: Apply Moisture Barrier Paste to buttocks, ischium, and Bilat medial upper thighs with each incontinence care. Cleanse wound medial upper L thigh with Saline. Apply Therahoney. Apply Moisture Barrier Paste periwound. Cover with Optifoam drsg. Change Daily and prn. Cleanse Sacral wound with Saline. Apply TheraHoney. Apply Moisture Barrier Paste Periwound. Cover with Optifoam drsg. Change every 3 days and prn. Apply Moisture Barrier Paste to R and L ischial tuberosities with each Incontinence care. wash L heel. apply betadine and cover with optifoam dressing Apply Cavilon Skin Barrier to R Heel. Cover with Optifoam drsg. Change every 7 days and prn. Reposition at least every 2hours or as tolerated. off-load heels with pillows. nutritional optimization DAILY ESTIMATED NEEDS: Needs based on ESRD on HD, wound obese 70.5kg abw 20-25 kcals/kg 3560-3473 total kcals 1.8-2.5 IBW 56.8kg g protein/kg 102-142 g total protein Fluid per MD on HD NUTRITION DIAGNOSIS: Increased protein needs r/t renal dysfunction and wound healing as evidenced by pt w/ ESRD on HD, w/ L heel unstageable wound. CURRENT DIET:renal diet, no chicken PO DIET RECOMMENDATIONS: RENAL DIET/ texture per EXCHANGE TROUBLE SHOOTER ADDITIONAL RECOMMENDATIONS: 1) Calibrated bedscale wt if adding P200 mattress + pump 2) Add NEPRO 1 tetra w/ meals w/ poor meal acceptance Prior adm w/ poor po intake 3) Wound care: continue SOLEDAD BID + Add Nephrovite x1 daily Vit C-> dosing per nephro 4) Monitor lytes and renal fxn Luis Alberto Cade Jul 04, 2020 08:08
--- NOTE | 2020-07-04 08:20 | NUR ---
NURSE NOTES: received patient in bed, with complaint of pain 5/10 generalized, reported to dr. Banegas and obtained reorder of Amonate, processed order. Received also order for HD to be done tomorrow 07/05, notified [facility], spoken to Sybil. Patient is awake, alert, in bedrest and has right forearm gauge 18 saline locked as IV access. Also Right upper chest Permacath in place. Bed at the lowest position possible, on bed alarm, call light within easy reach, side rails x2. Will continue to monitor patient and follow up with the plan of care.
[2020-07-04] MEDS: Aspirin Baby 81mg ORAL SCH (08:52)
[2020-07-04] MEDS: HYDROcodone/Acetamin 5/325 tab ORAL PRN ×2 (08:52→19:23)
[2020-07-04] MEDS: Eliquis 2.5mg tablet ORAL SCH ×2 (08:53→18:11)
[2020-07-04] MEDS: Docusate 100mg cap ORAL SCH ×3 (08:53→18:11)
--- NOTE | 2020-07-04 08:55 | General Progress Note ---
Subjective Allergies: Coded Allergies: PENICILLINS (Verified Allergy, Unknown, 04/23/20) Tolerated Cefepime 04/23/20 Objective Last 24 Hour Vital Signs Date Time Temp Pulse Resp B/P (MAP) Pulse Ox O2 Delivery O2 Flow Rate FiO2 07/04/20 08:00 98.0 61 18 155/81 (105) 98 07/04/20 06:00 109/70 07/04/20 04:00 98.1 60 19 146/80 (102) 96 07/04/20 01:11 97.7 07/04/20 00:00 97.7 60 20 125/70 (88) 95 07/03/20 21:47 129/87 07/03/20 21:00 Room Air 07/03/20 20:00 97.2 70 20 138/67 (90) 95 07/03/20 15:51 98.5 60 19 130/79 (96) 96 07/03/20 13:20 101/30 07/03/20 13:18 97.2 60 18 101/30 (53) 96 Intake and Output 07/03/20 07/04/20 19:00 07:00 Intake Total 600 ml 300 ml Output Total 0 ml Balance 600 ml 300 ml Intake Oral 300 ml Other 600 ml Hemodialysis UF 0 ml # Voids 2 Laboratory Tests 07/04/20 06:55: Random Vancomycin Level 18.1 Height (Feet): 5 Height (Inches): 5.00 Weight (Pounds): 238 Assessment/Plan Status: stable Assessment/Plan: S: I am ok O: seems comfortable, no sob or cp PHYSICAL EXAMINATION: . HEAD AND NECK: Atraumatic and normocephalic. CHEST: Clear to auscultation. HEART: S1, S2. Regular rate and rhythm. Bradycardic. MUSCULOSKELETAL: New Permcath in right upper chest , No gross lateralized motor deficit, paraparesis. stage 3 decubitus wound in calcaneal region.NEUROLOGIC: The patient is awake and alert x 2. LABORATORY AND DIAGNOSTIC DATA: Labs dated 07/02/20 reviewed Meds: reviwed and reconciled in chart ASSESSMENT: 1. Sepsis with Staph 2. hyperKalemia and Missed HD sessions 2. Decubitus wound, enlarging and infected. 3. End-stage renal disease, on temporary PermCath hemodialysis access. 2. Paroxysmal atrial fibrillation, rate is stable. 3. Diabetes type 2. 4. Hypertension. 5. Hyperlipidemia. 6. CVA-history. 7. Dementia. 8. Gastrointestinal and deep vein thrombosis prophylaxes. 9. Pain management Plan: HD- per Nephrology Nephrol-Critical care and vascular services consulted. Agree with Telemetry admission consult SW to discuss options to avoid future delays in outpatient HD Negative blood culture Discussion: D/w ID , given the initial bacteremia with Staph Capisits in this patient with long standing HD-Permcath in place. There is moderte risk for underlying line infection. Will proceed with line Extraction. Also, D/w cardiology ( Dr Franco) on Jun 29 for risk assessment for possible infective endocarditis workup . D/w Daughter on Jun 28 S/P extraction of HD access proceed with insertion of new Temp Tunel cath D/w Dr Stephenson in detailed on Jul 01 S/P Re-insertion of the Permcath may be followed as o./p post HD tomorrow Danie Banegas MD Jul 04, 2020 08:55
[2020-07-04] MEDS: Renvela 800mg Pkt ORAL SCH (09:00)
--- NOTE | 2020-07-04 09:28 | Nephrology Progress Note ---
Assessment/Plan Problem List: (1) ESRD (end stage renal disease) (2) Volume overload (3) Hyperkalemia (4) Bradycardia (5) Pacemaker (6) Diabetic nephropathy Assessment ESRD (end stage renal disease), missed few sessions of hemodialysis Volume overload , Hyperkalemia other conditions: -. Diabetes with diabetic nephropathy and neuropathy. -. History of CVA with left weakness. -. History of atrial fibrillation. -. History of pacemaker. Plan July 04: Patient was dialyzed yesterday. No labs drawn today. Due for dialysis tomorrow. If in-house will dialyze tomorrow if discharged will be dialyzed at outpatient dialysis unit. July 03: Patient now has a new permacath placed since yesterday. Patient due for dialysis today. Labs reviewed. Medication reviewed. Continue per PMD and consultants. July 02: Patient doing insertion of tunneled catheter today. Patient was last dialyzed yesterday morning. After insertion of tunneled catheter we arrange for dialysis tomorrow morning. July 01: Radiology was unable to put tunneled catheter for patient yesterday. Temporary jugular catheter was inserted last evening and patient received dialysis this morning. Patient due placement of a tunneled catheter tomorrow. Renal parameters stable. Continue same treatment plan. June 30: Patient due placement of permacath today followed by dialysis. Continue with same management. June 29: Labs reviewed. Status quo. Dialyzed June 27. Due for dialysis June 30 tomorrow. Permacath removed yesterday and will be reinserted tomorrow prior to dialysis. Continue per consultants. June 28: Labs reviewed. Status quo. Dialyzed yesterday June 27. Discussed with ID. Patient bacteremic with the same organism of previous admission. Suggestion to remove the current permacath and replaced with a new one at the same time. PMD and vascular surgeon aware. Due for next dialysis on June 30. June 27: Lab reviewed. Status quo. Due for dialysis today. Stable from renal standpoint of view. Continue per PMD and consultants. June 26: Patient stable. Dialyzed yesterday. Labs reviewed. Due for dialysis tomorrow. Continue per vascular surgical recommendation. June 25: Clinically stable. Labs reviewed. Medication list reviewed. Due for dialysis today. Continue with same management. Patient received dialysis yesterday. Will attempt dialysis again tomorrow. Labs, medications reviewed. Continue per consultants. Subjective ROS Limited/Unobtainable: No Objective Objective Last 24 Hour Vital Signs Date Time Temp Pulse Resp B/P (MAP) Pulse Ox O2 Delivery O2 Flow Rate FiO2 07/04/20 08:00 98.0 61 18 155/81 (105) 98 07/04/20 06:00 109/70 07/04/20 04:00 98.1 60 19 146/80 (102) 96 07/04/20 01:11 97.7 07/04/20 00:00 97.7 60 20 125/70 (88) 95 07/03/20 21:47 129/87 07/03/20 21:00 Room Air 07/03/20 20:00 97.2 70 20 138/67 (90) 95 07/03/20 15:51 98.5 60 19 130/79 (96) 96 07/03/20 13:20 101/30 07/03/20 13:18 97.2 60 18 101/30 (53) 96 Intake and Output 07/03/20 07/04/20 19:00 07:00 Intake Total 600 ml 300 ml Output Total 0 ml Balance 600 ml 300 ml Intake Oral 300 ml Other 600 ml Hemodialysis UF 0 ml # Voids 2 Current Medications Medications (Trade) Dose Ordered Sig/Jesus Route PRN Reason Start Time Stop Time Status Last Admin Dose Admin Acetaminophen (Tylenol) 650 mg Q4H PRN ORAL For Pain 06/23/20 15:15 07/23/20 15:14 07/04/20 00:41 Acetaminophen/ Hydrocodone Bitart ([place] 5/325) 1 tab Q4H PRN ORAL Moderate Pain (Pain Scale 4-6) 07/04/20 08:30 07/11/20 08:29 07/04/20 08:52 Apixaban (Eliquis) 2.5 mg BID ORAL 06/23/20 18:00 09/21/20 17:59 07/04/20 08:53 Aspirin (ASA) 81 mg DAILY ORAL 06/24/20 09:00 08/08/20 08:59 07/04/20 08:52 Atorvastatin Calcium (Lipitor) 10 mg BEDTIME ORAL 06/23/20 21:00 09/21/20 20:59 07/03/20 20:58 Chlorhexidine Gluconate (Cira-Hex 2%) 1 applic DAILY@1999 TOPIC 07/01/20 20:00 09/29/20 19:59 07/03/20 20:58 Docusate Sodium (Colace) 100 mg THREE TIMES A DAY ORAL 06/23/20 18:00 07/23/20 17:59 07/04/20 08:53 Gabapentin (Neurontin) 100 mg BID ORAL 06/23/20 18:00 07/23/20 17:59 07/04/20 08:52 Hydralazine HCl (Apresoline) 25 mg EVERY 8 HOURS ORAL 06/23/20 22:00 09/21/20 21:59 07/03/20 21:47 Hydralazine HCl (Apresoline) 25 mg Q4H PRN ORAL bp over 160 syst 06/23/20 15:30 09/21/20 15:29 Ondansetron HCl (Zofran) 4 mg Q6H PRN IVP Nausea & Vomiting 06/23/20 20:00 07/23/20 19:59 06/28/20 03:20 Pantoprazole (Protonix) 40 mg EVERY 12 HOURS ORAL 06/23/20 21:00 07/23/20 20:59 07/04/20 08:53 Sevelamer Carbonate (Renvela) 800 mg BIAC ORAL 07/04/20 16:30 10/02/20 16:29 Sevelamer Carbonate (Renvela) 800 mg BID ORAL 06/26/20 18:00 09/21/20 17:59 07/03/20 17:05 [facility] PRN MISC Per rx protocol 06/24/20 12:45 07/24/20 12:44 Laboratory Tests 07/04/20 06:55: Random Vancomycin Level 18.1 Height (Feet): 5 Height (Inches): 5.00 Weight (Pounds): 238 General Appearance: no apparent distress Cardiovascular: normal rate Respiratory/Chest: decreased breath sounds Abdomen: soft Objective No change Manas Stephenson MD Jul 04, 2020 09:28
--- NOTE | 2020-07-04 10:07 | Pulmonology Progress Note ---
Subjective ROS Limited/Unobtainable: No Constitutional: Reports: no symptoms HEENT: Repors: no symptoms Respiratory: Reports: no symptoms Cardiovascular: Reports: no symptoms Gastrointestinal/Abdominal: Reports: no symptoms Genitourinary: Reports: no symptoms Allergies: Coded Allergies: PENICILLINS (Verified Allergy, Unknown, 04/23/20) Tolerated Cefepime 04/23/20 Subjective care reviewed findings noted renal discussed Objective Last 24 Hour Vital Signs Date Time Temp Pulse Resp B/P (MAP) Pulse Ox O2 Delivery O2 Flow Rate FiO2 07/04/20 08:00 98.0 61 18 155/81 (105) 98 07/04/20 06:00 109/70 07/04/20 04:00 98.1 60 19 146/80 (102) 96 07/04/20 01:11 97.7 07/04/20 00:00 97.7 60 20 125/70 (88) 95 07/03/20 21:47 129/87 07/03/20 21:00 Room Air 07/03/20 20:00 97.2 70 20 138/67 (90) 95 07/03/20 15:51 98.5 60 19 130/79 (96) 96 07/03/20 13:20 101/30 07/03/20 13:18 97.2 60 18 101/30 (53) 96 Intake and Output 07/03/20 07/04/20 18:59 06:59 Intake Total 600 ml 300 ml Output Total 0 ml Balance 600 ml 300 ml Intake Oral 300 ml Other 600 ml Hemodialysis UF 0 ml # Voids 2 General Appearance: WD/WN HEENT: normocephalic Respiratory: chest wall non-tender, normal breath sounds, no respiratory distress Cardiovascular: normal peripheral pulses, normal rate, regular rhythm, no JVD Abdomen: normal bowel sounds, soft, non tender, non distended Extremities: no cyanosis, no clubbing, no edema Laboratory Tests 07/04/20 06:55: Random Vancomycin Level 18.1 Current Medications Medications (Trade) Dose Ordered Sig/Jesus Route PRN Reason Start Time Stop Time Status Last Admin Dose Admin Acetaminophen (Tylenol) 650 mg Q4H PRN ORAL For Pain 06/23/20 15:15 07/23/20 15:14 07/04/20 00:41 Acetaminophen/ Hydrocodone Bitart ([place] 5/325) 1 tab Q4H PRN ORAL Moderate Pain (Pain Scale 4-6) 07/04/20 08:30 07/11/20 08:29 07/04/20 08:52 Apixaban (Eliquis) 2.5 mg BID ORAL 06/23/20 18:00 09/21/20 17:59 07/04/20 08:53 Aspirin (ASA) 81 mg DAILY ORAL 06/24/20 09:00 08/08/20 08:59 07/04/20 08:52 Atorvastatin Calcium (Lipitor) 10 mg BEDTIME ORAL 06/23/20 21:00 09/21/20 20:59 07/03/20 20:58 Chlorhexidine Gluconate (Cira-Hex 2%) 1 applic DAILY@1999 TOPIC 07/01/20 20:00 09/29/20 19:59 07/03/20 20:58 Docusate Sodium (Colace) 100 mg THREE TIMES A DAY ORAL 06/23/20 18:00 07/23/20 17:59 07/04/20 08:53 Gabapentin (Neurontin) 100 mg BID ORAL 06/23/20 18:00 07/23/20 17:59 07/04/20 08:52 Hydralazine HCl (Apresoline) 25 mg EVERY 8 HOURS ORAL 06/23/20 22:00 09/21/20 21:59 07/03/20 21:47 Hydralazine HCl (Apresoline) 25 mg Q4H PRN ORAL bp over 160 syst 06/23/20 15:30 09/21/20 15:29 Ondansetron HCl (Zofran) 4 mg Q6H PRN IVP Nausea & Vomiting 06/23/20 20:00 07/23/20 19:59 06/28/20 03:20 Pantoprazole (Protonix) 40 mg EVERY 12 HOURS ORAL 06/23/20 21:00 07/23/20 20:59 07/04/20 08:53 Sevelamer Carbonate (Renvela) 800 mg BIAC ORAL 07/04/20 16:30 10/02/20 16:29 Sevelamer Carbonate (Renvela) 800 mg BID ORAL 06/26/20 18:00 09/21/20 17:59 07/03/20 17:05 Vancomycin HCl ([facility] pharmacy to dose) 1 ea DAILY PRN MISC Per rx protocol 06/24/20 12:45 07/24/20 12:44 Assessment/Plan Assessment/Plan IMPRESSION: 1. Hyperkalemia. 2. Pulmonary edema. 3. Missed dialysis. 4. Diabetes mellitus. 5. Hypertension. 6. History of COPD. DISCUSSION: monitor fluid status Continue HD- renal noted Currently saturating well on room air. meds noted dc planning full code impression, plan, and exam edited and reviewed in detail care discussed with Travis Quinteros MD Jul 04, 2020 10:07
--- NOTE | 2020-07-04 10:29 | NUR ---
RD ASSESSMENT & RECOMMENDATIONS SEE CARE ACTIVITY FOR COMPLETE ASSESSMENT DAILY ESTIMATED NEEDS: Needs based on ESRD on HD, wound obese 70.5kg abw 20-25 kcals/kg 5036-4901 total kcals 1.8-2.5 IBW 56.8kg g protein/kg 102-142 g total protein Fluid per MD on HD NUTRITION DIAGNOSIS: Increased protein needs r/t renal dysfunction and wound healing as evidenced by pt w/ ESRD on HD, w/ L heel unstageable wound. CURRENT DIET:renal diet, no chicken PO DIET RECOMMENDATIONS: RENAL DIET+ DOUBLE PRO PORTIONS / texture per [employer] ADDITIONAL RECOMMENDATIONS: 1) Calibrated bedscale wt if adding P200 mattress + pump 2) Add NEPRO 1 tetra w/ meals w/ poor meal acceptance Prior adm w/ poor po intake -> now improved. 3) Wound care: continue SOLEDAD BID + Add Nephrovite x1 daily Vit C-> dosing per nephro 4) Monitor lytes and renal fxn .
[2020-07-04 12:00] VITALS: BP 109/59
--- NOTE | 2020-07-04 13:25 | Cardiac Electrophysiology PN ---
Assessment/Plan Assessment/Plan 1. Atrilal FIB, On Eliquis 2.5 bid and off any AVN blockers 2. Hypertension, on hydralazine 25 bid. EF 55%. 3. ESRD on HD via right chest permcath ( removed now and got a Steve cathter on 06/30/20 ). S/P new PermCath 07/02/20 4. Hx of left arm av shunt malfunctioning 5. Left chest DDD pacemaker 6. Hx of CVA non ambulatory with dementia 7. Severe calcific PAD with left foot decub ulcer 8. Diabetes 9. Asthma 10. hx of CVA left weakness 11.GERD 12. decubitus ulcer DW RN Subjective Subjective Alert in NAD. Got new Perm Cath placement. No CP or SOB. Complains about the food. Objective Last 24 Hour Vital Signs Date Time Temp Pulse Resp B/P (MAP) Pulse Ox O2 Delivery O2 Flow Rate FiO2 07/04/20 13:05 109/59 07/04/20 12:00 96.0 60 16 109/59 (76) 95 07/04/20 09:22 98.0 07/04/20 09:00 Room Air 07/04/20 08:00 98.0 61 18 155/81 (105) 98 07/04/20 06:00 109/70 07/04/20 04:00 98.1 60 19 146/80 (102) 96 07/04/20 01:11 97.7 07/04/20 00:00 97.7 60 20 125/70 (88) 95 07/03/20 21:47 129/87 07/03/20 21:00 Room Air 07/03/20 20:00 97.2 70 20 138/67 (90) 95 07/03/20 15:51 98.5 60 19 130/79 (96) 96 Intake and Output 07/03/20 07/04/20 19:00 07:00 Intake Total 600 ml 300 ml Output Total 0 ml Balance 600 ml 300 ml Intake Oral 300 ml Other 600 ml Hemodialysis UF 0 ml # Voids 2 Laboratory Tests Test 07/04/20 06:55 Random Vancomycin Level 18.1 ug/mL Objective HEENT: No JVD. New Right IJ PermCAth in place LUNGS: Clear CVS: RRR. Pacer left subclavian ABDOMEN: Soft EXT: Right chest PermCath is removed. Left arm AVF fistula Triston Franco MD Jul 04, 2020 13:25
[2020-07-04 15:37] VITALS: BP 113/60
[2020-07-04] MEDS ORDERED: Hydrocortisone 1% Cr TOPIC PRN (19:00)
--- NOTE | 2020-07-04 19:10 | NUR ---
NURSE HAND-OFF: Important Events on Shift:[n/a] Patient Status: [] Diet: [Renal] Pending Orders: [CBC, CMP, BNP, CRP, PHOS, crp] Pending Results/Labs:[] Pending MD notification:[] Latest Vital Signs: Temperature 97.9 , Pulse 60 , B/P 113 /60 , Respiratory Rate 17 , O2 SAT 97 , Room Air, O2 Flow Rate . Vital Sign Comment: [] Latest Srivastava Fall Score: 50 Fall Risk: High Risk Safety Measures: Call light Within Reach, Bed Alarm Zone 1, Side Rails Side Rails x3, Bed position Low and Locked. Fall Precautions: Yellow Socks Yellow Gown Door Sign Patient Fall Education Report given to [VIKAS Pickard].
[2020-07-04] MEDS: Dyna-Hex 2% Top Sol 2oz TOPIC SCH (19:23)
--- NOTE | 2020-07-04 19:30 | NUR ---
NURSE NOTES: Received report from yessica castillo. patient is awake. on room air. no sob. verbally responsive.able to express needs. with iv line on the right forearm, saline lock.noted with right chest permacath with dry and intact dressing. with complaints of pain on the leg.per anna, " for hd tomorrow under vip" reiterated to call and ask for assistance to prevent fall or injury. bed locked and in lowest position. call light and light button within easy reach. bed alarm on. will continue plan of care.
[2020-07-04 20:00] VITALS: BP 129/70
[2020-07-04] MEDS: Hydrocortisone 1% Oint TOPIC PRN (20:45)
[2020-07-05] VITALS: BP 124/65
[2020-07-05 04:00] VITALS: BP 136/70
[2020-07-05] MEDS: HydrALAZINE 25mg tab ORAL SCH ×2 (05:31→13:51)
--- NOTE | 2020-07-05 06:26 | NUR ---
NURSE HAND-OFF: Important Events on Shift:hd today under vip; repositioned q2h; pain mngt Patient Status: stable Diet: renal diet Pending Orders: hd today Pending Results/Labs: Pending MD notification: Latest Vital Signs: Temperature 97.2 , Pulse 61 , B/P 136 /70 , Respiratory Rate 19 , O2 SAT 96 , Room Air, O2 Flow Rate . Vital Sign Comment: Latest Srivastava Fall Score: 50 Fall Risk: High Risk Safety Measures: Call light Within Reach, Bed Alarm Zone 1, Side Rails Side Rails x3, Bed position Low and Locked. Fall Precautions: Yellow Socks Yellow Gown Door Sign Patient Fall Education
[2020-07-05 07:21] LABS: HEMATOCRIT 29.1 % (37.0-47.0); HEMOGLOBIN 9.7 G/DL (12.0-16.0); LYMPHOCYTES % (AUTO) 36.2 % (20.0-45.0); MEAN CORPUSCULAR VOLUME 91 FL (80-99); MONOCYTES % (AUTO) 11.7 % (1.0-10.0); NEUTROPHILS % (AUTO) 43.3 % (45.0-75.0); PLATELET COUNT 134 K/UL (150-450); RED BLOOD COUNT 3.19 M/UL (4.20-5.40); RED CELL DISTRIBUTION WIDTH 13.1 % (11.6-14.8); WHITE BLOOD COUNT 5.1 K/UL (4.8-10.8)
--- NOTE | 2020-07-05 07:24 | NUR ---
HAND-OFF: Report given to yessica castillo.
--- NOTE | 2020-07-05 07:28 | NUR ---
NURSE NOTES: received patient in bed asleep, in room air, in no acute distress. Patient is bedridden, right forearm gauge 18 saline locked and right upper chest Permacath in place. Hemodialysis scheduled for today with [facility] Nephrology. Bed at the lowest position possible, on bed alarm, call light within easy reach, side rails x2. Will continue to monitor patient and follow up with the plan of care.
[2020-07-05 08:00] VITALS: BP 101/52
[2020-07-05 08:02] LABS: ALBUMIN 2.7 G/DL (3.4-5.0); ALBUMIN/GLOBULIN RATIO 0.8 (1.0-2.7); BILIRUBIN,TOTAL 0.3 MG/DL (0.2-1.0); CREATININE 6.5 MG/DL (0.55-1.30); PHOSPHORUS 4.3 MG/DL (2.5-4.9); POTASSIUM 4.4 MMOL/L (3.5-5.1)
[2020-07-05] MEDS: Eliquis 2.5mg tablet ORAL SCH ×2 (08:53→16:40)
[2020-07-05] MEDS: Docusate 100mg cap ORAL SCH ×3 (08:53→16:40)
[2020-07-05] MEDS: Aspirin Baby 81mg ORAL SCH (08:53)
[2020-07-05] MEDS: HYDROcodone/Acetamin 5/325 tab ORAL PRN (08:54)
[2020-07-05] MEDS: Hydrocortisone 1% Oint TOPIC PRN (08:57)
--- NOTE | 2020-07-05 09:25 | General Progress Note ---
Subjective Allergies: Coded Allergies: PENICILLINS (Verified Allergy, Unknown, 04/23/20) Tolerated Cefepime 04/23/20 Objective Last 24 Hour Vital Signs Date Time Temp Pulse Resp B/P (MAP) Pulse Ox O2 Delivery O2 Flow Rate FiO2 07/05/20 08:00 97.8 59 18 101/52 (68) 97 07/05/20 04:00 97.2 61 19 136/70 (92) 96 07/05/20 00:00 98.4 57 18 124/65 (84) 96 07/04/20 22:06 130/65 07/04/20 21:00 Room Air 07/04/20 20:00 97.9 61 18 129/70 (89) 96 07/04/20 19:23 97.9 07/04/20 15:37 97.9 60 17 113/60 (77) 97 07/04/20 13:05 109/59 07/04/20 12:00 96.0 60 16 109/59 (76) 95 Intake and Output 07/04/20 07/05/20 19:00 07:00 Intake Total 500 ml 250 ml Balance 500 ml 250 ml Intake Oral 250 ml Other 500 ml Laboratory Tests 07/05/20 06:20: White Blood Count 5.1, Red Blood Count 3.19L, Hemoglobin 9.7L, Hematocrit 29.1L, Mean Corpuscular Volume 91, Mean Corpuscular Hemoglobin 30.3, Mean Corpuscular Hemoglobin Concent 33.2, Red Cell Distribution Width 13.1, Platelet Count 134L, Mean Platelet Volume 7.7, Neutrophils (%) (Auto) 43.3L, Lymphocytes (%) (Auto) 36.2, Monocytes (%) (Auto) 11.7H, Eosinophils (%) (Auto) 7.0H, Basophils (%) (Auto) 2.0, Sodium Level 137, Potassium Level 4.4, Chloride Level 98, Carbon Dioxide Level 30, Anion Gap 9, Blood Urea Nitrogen 49H, Creatinine 6.5H, Estimat Glomerular Filtration Rate 7.6, Glucose Level 89, Calcium Level 9.0, Phosphorus Level 4.3, Total Bilirubin 0.3, Aspartate Amino Transf (AST/SGOT) 14L, Alanine Aminotransferase (ALT/SGPT) 12, Alkaline Phosphatase 53, C-Reactive Protein, Quantitative 1.2H, Pro-B-Type Natriuretic Peptide 4474H, Total Protein 6.1L, Albumin 2.7L, Globulin 3.4, Albumin/Globulin Ratio 0.8L Height (Feet): 5 Height (Inches): 5.00 Weight (Pounds): 238 Assessment/Plan Status: stable Assessment/Plan: S: I am ok O: seems comfortable, no sob or cp PHYSICAL EXAMINATION: . HEAD AND NECK: Atraumatic and normocephalic. CHEST: Clear to auscultation. HEART: S1, S2. Regular rate and rhythm. Bradycardic. MUSCULOSKELETAL: New Permcath in right upper chest , No gross lateralized motor deficit, paraparesis. stage 3 decubitus wound in calcaneal region.NEUROLOGIC: The patient is awake and alert x 2. LABORATORY AND DIAGNOSTIC DATA: Labs dated 07/03/20 reviewed Meds: reviewed and reconciled in chart ASSESSMENT: 1. Sepsis with Staph 2. hyperKalemia and Missed HD sessions 2. Decubitus wound, enlarging and infected. 3. End-stage renal disease, on temporary PermCath hemodialysis access. 2. Paroxysmal atrial fibrillation, rate is stable. 3. Diabetes type 2. 4. Hypertension. 5. Hyperlipidemia. 6. CVA-history. 7. Dementia. 8. Gastrointestinal and deep vein thrombosis prophylaxes. 9. Pain management Plan: HD- per Nephrology Nephrol-Critical care and vascular services consulted. Agree with Telemetry admission consult SW to discuss options to avoid future delays in outpatient HD Negative blood culture Discussion: D/w ID , given the initial bacteremia with Staph Capisits in this patient with long standing HD-Permcath in place. There is moderte risk for underlying line infection. Will proceed with line Extraction. Also, D/w cardiology ( Dr Franco) on Jun 29 for risk assessment for possible infective endocarditis workup . D/w Daughter on Jun 28 S/P extraction of HD access proceed with insertion of new Temp Tunel cath D/w Dr Stephenson in detailed on Jul 01 S/P Re-insertion of the Permcath may be followed as o./p post HD tomorrow Danie Banegas MD Jul 05, 2020 09:25
--- NOTE | 2020-07-05 10:24 | Cardiac Electrophysiology PN ---
Assessment/Plan Assessment/Plan 1. Atrial FIB, On Eliquis 2.5 bid and off any AVN blockers 2. Hypertension, on hydralazine 25 bid. EF 55%. 3. ESRD on HD via right chest permcath ( removed now and got a Steve cathter on 06/30/20 ). S/P new PermCath 07/02/20 4. Hx of left arm av shunt malfunctioning 5. Left chest DDD pacemaker 6. Hx of CVA non ambulatory with dementia 7. Severe calcific PAD with left foot decub ulcer 8. Diabetes 9. Asthma 10. hx of CVA left weakness 11.GERD 12. decubitus ulcer DW RN Subjective Subjective Alert in NAD. Got new Perm Cath placement. No CP or SOB. Scheduled for discharge after HD today. Objective Last 24 Hour Vital Signs Date Time Temp Pulse Resp B/P (MAP) Pulse Ox O2 Delivery O2 Flow Rate FiO2 07/05/20 09:24 97.2 07/05/20 08:00 97.8 59 18 101/52 (68) 97 07/05/20 04:00 97.2 61 19 136/70 (92) 96 07/05/20 00:00 98.4 57 18 124/65 (84) 96 07/04/20 22:06 130/65 07/04/20 21:00 Room Air 07/04/20 20:00 97.9 61 18 129/70 (89) 96 07/04/20 19:23 97.9 07/04/20 15:37 97.9 60 17 113/60 (77) 97 07/04/20 13:05 109/59 07/04/20 12:00 96.0 60 16 109/59 (76) 95 Intake and Output 07/04/20 07/05/20 18:59 06:59 Intake Total 500 ml 250 ml Balance 500 ml 250 ml Intake Oral 250 ml Other 500 ml Laboratory Tests Test 07/05/20 06:20 White Blood Count 5.1 K/UL (4.8-10.8) Red Blood Count 3.19 M/UL (4.20-5.40) L Hemoglobin 9.7 G/DL (12.0-16.0) L Hematocrit 29.1 % (37.0-47.0) L Mean Corpuscular Volume 91 FL (80-99) Mean Corpuscular Hemoglobin 30.3 PG (27.0-31.0) Mean Corpuscular Hemoglobin Concent 33.2 G/DL (32.0-36.0) Red Cell Distribution Width 13.1 % (11.6-14.8) Platelet Count 134 K/UL (150-450) L Mean Platelet Volume 7.7 FL (6.5-10.1) Neutrophils (%) (Auto) 43.3 % (45.0-75.0) L Lymphocytes (%) (Auto) 36.2 % (20.0-45.0) Monocytes (%) (Auto) 11.7 % (1.0-10.0) H Eosinophils (%) (Auto) 7.0 % (0.0-3.0) H Basophils (%) (Auto) 2.0 % (0.0-2.0) Sodium Level 137 MMOL/L (136-145) Potassium Level 4.4 MMOL/L (3.5-5.1) Chloride Level 98 MMOL/L (98-107) Carbon Dioxide Level 30 MMOL/L (21-32) Anion Gap 9 mmol/L (5-15) Blood Urea Nitrogen 49 mg/dL (7-18) H Creatinine 6.5 MG/DL (0.55-1.30) H Estimat Glomerular Filtration Rate 7.6 mL/min (>60) Glucose Level 89 MG/DL (74-106) Calcium Level 9.0 MG/DL (8.5-10.1) Phosphorus Level 4.3 MG/DL (2.5-4.9) Total Bilirubin 0.3 MG/DL (0.2-1.0) Aspartate Amino Transf (AST/SGOT) 14 U/L (15-37) L Alanine Aminotransferase (ALT/SGPT) 12 U/L (12-78) Alkaline Phosphatase 53 U/L (46-116) C-Reactive Protein, Quantitative 1.2 mg/dL (0.00-0.90) H Pro-B-Type Natriuretic Peptide 4474 pg/mL (0-125) H Total Protein 6.1 G/DL (6.4-8.2) L Albumin 2.7 G/DL (3.4-5.0) L Globulin 3.4 g/dL Albumin/Globulin Ratio 0.8 (1.0-2.7) L Objective HEENT: No JVD. New Right IJ PermCath in place LUNGS: Clear CVS: RRR. Pacer left subclavian ABDOMEN: Soft EXT: Left arm AVF fistula Triston Franco MD Jul 05, 2020 10:24
--- NOTE | 2020-07-05 11:29 | Infectious Diseases Prog Note ---
Assessment/Plan Assessment: COVID19 neg x1 (06/23n rapid COVID pCR neg) -CXR: Mild pulmonary vascular prominence. No evidence of alveolar edema. No focal consolidation. Afebrile No leukocytosis S. capitis bacteremia- likely HD cath infection as this is the same organism she was bacteremic and septic back in April 2020- it was treated at the time w/ 2 weeks of IV vancomycin but no recurrence of bacteremia --06/30 SP R IJV farhat --06/28 SP permacath removal; cath tip cx NTD --06/23 Bcx 2/4 GPC clusters; 06/25 Bcx NTD --2d echo: no vegetations seen Pyuria -u/a wbc tnct, nit -, leuk +3; ucx NTD Hyperkalemia, SP (due to missing HD sessions) hx of SEvere sepsis 2ry S. capitis bacteremia, persistent; 04/2020 SP Rx -likely HD line infection in the setting of sepsis -04/23 Bcx 1/4 Staph capitis ; 04/25 Bcx 1/4 Staph capitis; 04/27 Bcx Neg x4 (peripheral, HD line) -2d Echo: no vegetations seen Hx of L foot/ankle wound; no grossly infected- no OM on bone scan -04/28/20 Bone scan: No significant abnormality in the left heel to suggest osteomyelitis of the location of clinically described left heel wound. Mild bilateral abnormal uptake, as detailed above, likely reflecting degenerative changes -xray L foot/ankle: No acute findings in the left foot. -CRP 5.9, ESR 53 Dm2 HTN Asthma/COPD CVA w/ residual L side weakness s/p PPM asthma ESRD on HD (MWF) via permacath R upper chest GERD decubitus ulcer Afib Plan: -Continue IV Vancomycin #10/04 for S. capitis bacteremia and likely HD cath infection -05/10/20 SP IV Vancomycin #18 -05/05 SP Meropenem #4 -04/29 SP Cefepime #5 -04/25 SP Ceftriaxone #3 -04/23/20 SP Cefepime x1 -f/u cx -Monitor CBC/CMP, temperatures -f/u Bcx x2 -May need RASHAAD if recurrent bacteremia, febrile D/w RN Thank you for this consultation. Will continue to follow along with you. Subjective Allergies: Coded Allergies: PENICILLINS (Verified Allergy, Unknown, 04/23/20) Tolerated Cefepime 04/23/20 Afebrile No leukocytosis VICKY Objective Last 24 Hour Vital Signs Date Time Temp Pulse Resp B/P (MAP) Pulse Ox O2 Delivery O2 Flow Rate FiO2 07/05/20 09:24 97.2 07/05/20 08:00 97.8 59 18 101/52 (68) 97 07/05/20 04:00 97.2 61 19 136/70 (92) 96 07/05/20 00:00 98.4 57 18 124/65 (84) 96 07/04/20 22:06 130/65 07/04/20 21:00 Room Air 07/04/20 20:00 97.9 61 18 129/70 (89) 96 07/04/20 19:23 97.9 07/04/20 15:37 97.9 60 17 113/60 (77) 97 07/04/20 13:05 109/59 07/04/20 12:00 96.0 60 16 109/59 (76) 95 Height (Feet): 5 Height (Inches): 5.00 Weight (Pounds): 238 GENERAL: NAD HEENT: NCAT, MMM, EOMI LUNGS: Equal rise and fall of chest B/L no accessory muscle use ABDOMEN: Soft, nondistended EXTREMITIES: No cyanosis, clubbing, or edema. Laboratory Tests Test 07/05/20 06:20 White Blood Count 5.1 K/UL (4.8-10.8) Red Blood Count 3.19 M/UL (4.20-5.40) L Hemoglobin 9.7 G/DL (12.0-16.0) L Hematocrit 29.1 % (37.0-47.0) L Mean Corpuscular Volume 91 FL (80-99) Mean Corpuscular Hemoglobin 30.3 PG (27.0-31.0) Mean Corpuscular Hemoglobin Concent 33.2 G/DL (32.0-36.0) Red Cell Distribution Width 13.1 % (11.6-14.8) Platelet Count 134 K/UL (150-450) L Mean Platelet Volume 7.7 FL (6.5-10.1) Neutrophils (%) (Auto) 43.3 % (45.0-75.0) L Lymphocytes (%) (Auto) 36.2 % (20.0-45.0) Monocytes (%) (Auto) 11.7 % (1.0-10.0) H Eosinophils (%) (Auto) 7.0 % (0.0-3.0) H Basophils (%) (Auto) 2.0 % (0.0-2.0) Sodium Level 137 MMOL/L (136-145) Potassium Level 4.4 MMOL/L (3.5-5.1) Chloride Level 98 MMOL/L (98-107) Carbon Dioxide Level 30 MMOL/L (21-32) Anion Gap 9 mmol/L (5-15) Blood Urea Nitrogen 49 mg/dL (7-18) H Creatinine 6.5 MG/DL (0.55-1.30) H Estimat Glomerular Filtration Rate 7.6 mL/min (>60) Glucose Level 89 MG/DL (74-106) Calcium Level 9.0 MG/DL (8.5-10.1) Phosphorus Level 4.3 MG/DL (2.5-4.9) Total Bilirubin 0.3 MG/DL (0.2-1.0) Aspartate Amino Transf (AST/SGOT) 14 U/L (15-37) L Alanine Aminotransferase (ALT/SGPT) 12 U/L (12-78) Alkaline Phosphatase 53 U/L (46-116) C-Reactive Protein, Quantitative 1.2 mg/dL (0.00-0.90) H Pro-B-Type Natriuretic Peptide 4474 pg/mL (0-125) H Total Protein 6.1 G/DL (6.4-8.2) L Albumin 2.7 G/DL (3.4-5.0) L Globulin 3.4 g/dL Albumin/Globulin Ratio 0.8 (1.0-2.7) L Current Medications Medications (Trade) Dose Ordered Sig/Jesus Route PRN Reason Start Time Stop Time Status Last Admin Dose Admin Acetaminophen (Tylenol) 650 mg Q4H PRN ORAL For Pain 06/23/20 15:15 07/23/20 15:14 07/04/20 00:41 Acetaminophen/ Hydrocodone Bitart ([place] 5/325) 1 tab Q4H PRN ORAL Moderate Pain (Pain Scale 4-6) 07/04/20 08:30 07/11/20 08:29 07/05/20 08:54 Apixaban (Eliquis) 2.5 mg BID ORAL 06/23/20 18:00 09/21/20 17:59 07/05/20 08:53 Aspirin (ASA) 81 mg DAILY ORAL 06/24/20 09:00 08/08/20 08:59 07/05/20 08:53 Atorvastatin Calcium (Lipitor) 10 mg BEDTIME ORAL 06/23/20 21:00 09/21/20 20:59 07/04/20 20:44 Chlorhexidine Gluconate (Cira-Hex 2%) 1 applic DAILY@1999 TOPIC 07/01/20 20:00 09/29/20 19:59 07/04/20 19:23 Docusate Sodium (Colace) 100 mg THREE TIMES A DAY ORAL 06/23/20 18:00 07/23/20 17:59 07/05/20 08:53 Gabapentin (Neurontin) 100 mg BID ORAL 06/23/20 18:00 07/23/20 17:59 07/05/20 08:53 Hydralazine HCl (Apresoline) 25 mg EVERY 8 HOURS ORAL 06/23/20 22:00 09/21/20 21:59 07/04/20 22:06 Hydralazine HCl (Apresoline) 25 mg Q4H PRN ORAL bp over 160 syst 06/23/20 15:30 09/21/20 15:29 Hydrocortisone (Hydrocortisone) 1 applic Q6H PRN TOPIC Itching 07/04/20 19:00 10/02/20 18:59 07/05/20 08:57 Ondansetron HCl (Zofran) 4 mg Q6H PRN IVP Nausea & Vomiting 06/23/20 20:00 07/23/20 19:59 06/28/20 03:20 Pantoprazole (Protonix) 40 mg EVERY 12 HOURS ORAL 06/23/20 21:00 07/23/20 20:59 07/05/20 08:53 Sevelamer Carbonate (Renvela) 800 mg BIAC ORAL 07/04/20 16:30 10/02/20 16:29 07/05/20 05:31 Vancomycin HCl ([facility] pharmacy to dose) 1 ea DAILY PRN MISC Per rx protocol 06/24/20 12:45 07/24/20 12:44 Benjamín Montoya MD Jul 05, 2020 11:29
--- NOTE | 2020-07-05 11:37 | Nephrology Progress Note ---
Assessment/Plan Problem List: (1) ESRD (end stage renal disease) (2) Volume overload (3) Hyperkalemia (4) Bradycardia (5) Pacemaker (6) Diabetic nephropathy Assessment ESRD (end stage renal disease), missed few sessions of hemodialysis Volume overload , Hyperkalemia other conditions: -. Diabetes with diabetic nephropathy and neuropathy. -. History of CVA with left weakness. -. History of atrial fibrillation. -. History of pacemaker. Plan July 05: Patient due for dialysis today. Labs reviewed. Continue per consultants. Patient to continue to have dialysis Sunday. July 04: Patient was dialyzed yesterday. No labs drawn today. Due for dialysis tomorrow. If in-house will dialyze tomorrow if discharged will be dialyzed at outpatient dialysis unit. July 03: Patient now has a new permacath placed since yesterday. Patient due for dialysis today. Labs reviewed. Medication reviewed. Continue per PMD and consultants. July 02: Patient doing insertion of tunneled catheter today. Patient was last dialyzed yesterday morning. After insertion of tunneled catheter we arrange for dialysis tomorrow morning. July 01: Radiology was unable to put tunneled catheter for patient yesterday. Temporary jugular catheter was inserted last evening and patient received dialysis this morning. Patient due placement of a tunneled catheter tomorrow. Renal parameters stable. Continue same treatment plan. June 30: Patient due placement of permacath today followed by dialysis. Continue with same management. June 29: Labs reviewed. Status quo. Dialyzed June 27. Due for dialysis June 30 tomorrow. Permacath removed yesterday and will be reinserted tomorrow prior to dialysis. Continue per consultants. June 28: Labs reviewed. Status quo. Dialyzed yesterday June 27. Discussed with ID. Patient bacteremic with the same organism of previous admission. Suggestion to remove the current permacath and replaced with a new one at the same time. PMD and vascular surgeon aware. Due for next dialysis on June 30. June 27: Lab reviewed. Status quo. Due for dialysis today. Stable from renal standpoint of view. Continue per PMD and consultants. June 26: Patient stable. Dialyzed yesterday. Labs reviewed. Due for dialysis tomorrow. Continue per vascular surgical recommendation. June 25: Clinically stable. Labs reviewed. Medication list reviewed. Due for dialysis today. Continue with same management. Patient received dialysis yesterday. Will attempt dialysis again tomorrow. Labs, medications reviewed. Continue per consultants. Subjective ROS Limited/Unobtainable: No Objective Objective Last 24 Hour Vital Signs Date Time Temp Pulse Resp B/P (MAP) Pulse Ox O2 Delivery O2 Flow Rate FiO2 07/05/20 09:24 97.2 07/05/20 08:00 97.8 59 18 101/52 (68) 97 07/05/20 04:00 97.2 61 19 136/70 (92) 96 07/05/20 00:00 98.4 57 18 124/65 (84) 96 07/04/20 22:06 130/65 07/04/20 21:00 Room Air 07/04/20 20:00 97.9 61 18 129/70 (89) 96 07/04/20 19:23 97.9 07/04/20 15:37 97.9 60 17 113/60 (77) 97 07/04/20 13:05 109/59 07/04/20 12:00 96.0 60 16 109/59 (76) 95 Intake and Output 07/04/20 07/05/20 19:00 07:00 Intake Total 500 ml 250 ml Balance 500 ml 250 ml Intake Oral 250 ml Other 500 ml Laboratory Tests 07/05/20 06:20: White Blood Count 5.1, Red Blood Count 3.19L, Hemoglobin 9.7L, Hematocrit 29.1L, Mean Corpuscular Volume 91, Mean Corpuscular Hemoglobin 30.3, Mean Corpuscular Hemoglobin Concent 33.2, Red Cell Distribution Width 13.1, Platelet Count 134L, Mean Platelet Volume 7.7, Neutrophils (%) (Auto) 43.3L, Lymphocytes (%) (Auto) 36.2, Monocytes (%) (Auto) 11.7H, Eosinophils (%) (Auto) 7.0H, Basophils (%) (Auto) 2.0, Sodium Level 137, Potassium Level 4.4, Chloride Level 98, Carbon Dioxide Level 30, Anion Gap 9, Blood Urea Nitrogen 49H, Creatinine 6.5H, Estimat Glomerular Filtration Rate 7.6, Glucose Level 89, Calcium Level 9.0, Phosphorus Level 4.3, Total Bilirubin 0.3, Aspartate Amino Transf (AST/SGOT) 14L, Alanine Aminotransferase (ALT/SGPT) 12, Alkaline Phosphatase 53, C-Reactive Protein, Quantitative 1.2H, Pro-B-Type Natriuretic Peptide 4474H, Total Protein 6.1L, Albumin 2.7L, Globulin 3.4, Albumin/Globulin Ratio 0.8L Height (Feet): 5 Height (Inches): 5.00 Weight (Pounds): 238 General Appearance: no apparent distress Cardiovascular: normal rate Respiratory/Chest: decreased breath sounds Abdomen: soft Objective No change Manas Stephenson MD Jul 05, 2020 11:37
[2020-07-05 12:00] VITALS: BP 96/55
--- NOTE | 2020-07-05 12:40 | Pulmonology Progress Note ---
Subjective ROS Limited/Unobtainable: No Constitutional: Reports: no symptoms HEENT: Repors: no symptoms Respiratory: Reports: no symptoms Cardiovascular: Reports: no symptoms Gastrointestinal/Abdominal: Reports: no symptoms Genitourinary: Reports: no symptoms Allergies: Coded Allergies: PENICILLINS (Verified Allergy, Unknown, 04/23/20) Tolerated Cefepime 04/23/20 Objective Last 24 Hour Vital Signs Date Time Temp Pulse Resp B/P (MAP) Pulse Ox O2 Delivery O2 Flow Rate FiO2 07/05/20 09:24 97.2 07/05/20 09:00 Room Air 07/05/20 08:00 97.8 59 18 101/52 (68) 97 07/05/20 04:00 97.2 61 19 136/70 (92) 96 07/05/20 00:00 98.4 57 18 124/65 (84) 96 07/04/20 22:06 130/65 07/04/20 21:00 Room Air 07/04/20 20:00 97.9 61 18 129/70 (89) 96 07/04/20 19:23 97.9 07/04/20 15:37 97.9 60 17 113/60 (77) 97 07/04/20 13:05 109/59 Intake and Output 07/04/20 07/05/20 19:00 07:00 Intake Total 500 ml 250 ml Balance 500 ml 250 ml Intake Oral 250 ml Other 500 ml General Appearance: WD/WN HEENT: normocephalic Respiratory: chest wall non-tender, normal breath sounds, no respiratory distress Cardiovascular: normal peripheral pulses, normal rate, regular rhythm, no JVD Abdomen: normal bowel sounds, soft, non tender, non distended Extremities: no cyanosis, no clubbing, no edema Laboratory Tests 07/05/20 06:20: White Blood Count 5.1, Red Blood Count 3.19L, Hemoglobin 9.7L, Hematocrit 29.1L, Mean Corpuscular Volume 91, Mean Corpuscular Hemoglobin 30.3, Mean Corpuscular Hemoglobin Concent 33.2, Red Cell Distribution Width 13.1, Platelet Count 134L, Mean Platelet Volume 7.7, Neutrophils (%) (Auto) 43.3L, Lymphocytes (%) (Auto) 36.2, Monocytes (%) (Auto) 11.7H, Eosinophils (%) (Auto) 7.0H, Basophils (%) (Auto) 2.0, Sodium Level 137, Potassium Level 4.4, Chloride Level 98, Carbon Dioxide Level 30, Anion Gap 9, Blood Urea Nitrogen 49H, Creatinine 6.5H, Estimat Glomerular Filtration Rate 7.6, Glucose Level 89, Calcium Level 9.0, Phosphorus Level 4.3, Total Bilirubin 0.3, Aspartate Amino Transf (AST/SGOT) 14L, Alanine Aminotransferase (ALT/SGPT) 12, Alkaline Phosphatase 53, C-Reactive Protein, Quantitative 1.2H, Pro-B-Type Natriuretic Peptide 4474H, Total Protein 6.1L, Albumin 2.7L, Globulin 3.4, Albumin/Globulin Ratio 0.8L Current Medications Medications (Trade) Dose Ordered Sig/Jesus Route PRN Reason Start Time Stop Time Status Last Admin Dose Admin Acetaminophen (Tylenol) 650 mg Q4H PRN ORAL For Pain 06/23/20 15:15 07/23/20 15:14 07/04/20 00:41 Acetaminophen/ Hydrocodone Bitart ([place] 5/325) 1 tab Q4H PRN ORAL Moderate Pain (Pain Scale 4-6) 07/04/20 08:30 07/11/20 08:29 07/05/20 08:54 Apixaban (Eliquis) 2.5 mg BID ORAL 06/23/20 18:00 09/21/20 17:59 07/05/20 08:53 Aspirin (ASA) 81 mg DAILY ORAL 06/24/20 09:00 08/08/20 08:59 07/05/20 08:53 Atorvastatin Calcium (Lipitor) 10 mg BEDTIME ORAL 06/23/20 21:00 09/21/20 20:59 07/04/20 20:44 Chlorhexidine Gluconate (Cira-Hex 2%) 1 applic DAILY@1999 TOPIC 07/01/20 20:00 09/29/20 19:59 07/04/20 19:23 Docusate Sodium (Colace) 100 mg THREE TIMES A DAY ORAL 06/23/20 18:00 07/23/20 17:59 07/05/20 08:53 Gabapentin (Neurontin) 100 mg BID ORAL 06/23/20 18:00 07/23/20 17:59 07/05/20 08:53 Hydralazine HCl (Apresoline) 25 mg EVERY 8 HOURS ORAL 06/23/20 22:00 09/21/20 21:59 07/04/20 22:06 Hydralazine HCl (Apresoline) 25 mg Q4H PRN ORAL bp over 160 syst 06/23/20 15:30 09/21/20 15:29 Hydrocortisone (Hydrocortisone) 1 applic Q6H PRN TOPIC Itching 07/04/20 19:00 10/02/20 18:59 07/05/20 08:57 Ondansetron HCl (Zofran) 4 mg Q6H PRN IVP Nausea & Vomiting 06/23/20 20:00 07/23/20 19:59 06/28/20 03:20 Pantoprazole (Protonix) 40 mg EVERY 12 HOURS ORAL 06/23/20 21:00 07/23/20 20:59 07/05/20 08:53 Sevelamer Carbonate (Renvela) 800 mg BIAC ORAL 07/04/20 16:30 10/02/20 16:29 07/05/20 05:31 Vancomycin HCl (Vanc pharmacy to dose) 1 ea DAILY PRN MISC Per rx protocol 06/24/20 12:45 07/24/20 12:44 Assessment/Plan Assessment/Plan Pulmonary Progress Note Subjective ROS Limited/Unobtainable: No Constitutional: Reports: no symptoms HEENT: Repors: no symptoms Respiratory: Reports: no symptoms Cardiovascular: Reports: no symptoms Gastrointestinal/Abdominal: Reports: no symptoms Genitourinary: Reports: no symptoms Allergies: Coded Allergies: PENICILLINS (Verified Allergy, Unknown, 04/23/20) Tolerated Cefepime 04/23/20 Subjective care reviewed findings noted renal discussed Objective Vital Signs noted General Appearance: WD/WN HEENT: normocephalic Respiratory: chest wall non-tender, normal breath sounds, no respiratory distress Cardiovascular: normal peripheral pulses, normal rate, regular rhythm, no JVD Abdomen: normal bowel sounds, soft, non tender, non distended Extremities: no cyanosis, no clubbing, no edema Laboratory Tests noted Assessment/Plan IMPRESSION: 1. Hyperkalemia. 2. Pulmonary edema. 3. Missed dialysis. 4. Diabetes mellitus. 5. Hypertension. 6. History of COPD. DISCUSSION: monitor fluid status Continue HD- renal noted Currently saturating well on room air. meds noted dc planning full code impression, plan, and exam edited and reviewed in detail care discussed with RN Benjamín Jane MD Jul 05, 2020 12:40
[2020-07-05 16:00] VITALS: BP 107/52
--- NOTE | 2020-07-05 19:20 | NUR ---
NURSE NOTES: Patient has been discharged to home, by [facility] report given to Paco from [id number]. Notified him daughter Padma asked to go through [facility] and call her from there, given him her tel # . Also called daughter and let her know ETA. Patient in stable condition and VS, stable after HD, no output has BP low at the beginning of the procedure. Taken IV access off, no bleeding after site compression. Done change of dressing and taken pictures, unable to upload on EMR due to message " Could not open to [employer]" and no other camera name option available. Collected MRSA nares from patient, who was resistant and sked for a MIXED LIVESTOCK FARMER to hold her head. Still, patient moved head several times, making it difficult to obtain specimen. Patient unable to sign off belongings list but left with all her belongings. Taken ID band off. No complaint of pain or discomfort, leaving on [place] with ambulance personnel. Addendum: 07/05/20 at 1952 by LUIS DICKSON RN NURSE NOTES: given discharge packet with medication reconciliation, and pamphlet regarding her condition. Told patient to continue on her schedule for HD: [facility].
--- NOTE | 2020-07-05 21:17 | Surgery Progress Note ---
Surgery Progress Note Subjective Symptoms: improved, pain absent, tolerating diet, passing flatus, BM Objective Last 24 Hour Vital Signs Date Time Temp Pulse Resp B/P (MAP) Pulse Ox O2 Delivery O2 Flow Rate FiO2 07/05/20 16:00 97.9 60 19 107/52 (70) 98 07/05/20 13:51 96/55 07/05/20 12:00 97.9 60 18 96/55 (69) 96 07/05/20 09:24 97.2 07/05/20 09:00 Room Air 07/05/20 08:00 97.8 59 18 101/52 (68) 97 07/05/20 04:00 97.2 61 19 136/70 (92) 96 07/05/20 00:00 98.4 57 18 124/65 (84) 96 07/04/20 22:06 130/65 I&O Intake and Output 07/04/20 07/05/20 19:00 07:00 Intake Total 500 ml 250 ml Balance 500 ml 250 ml Intake Oral 250 ml Other 500 ml Cardiovascular: RSR Respiratory: clear Abdomen: soft, non-tender, present bowel sounds Extremities: no edema, no tenderness, no cyanosis Laboratory Tests Test 07/05/20 06:20 White Blood Count 5.1 K/UL (4.8-10.8) Red Blood Count 3.19 M/UL (4.20-5.40) L Hemoglobin 9.7 G/DL (12.0-16.0) L Hematocrit 29.1 % (37.0-47.0) L Mean Corpuscular Volume 91 FL (80-99) Mean Corpuscular Hemoglobin 30.3 PG (27.0-31.0) Mean Corpuscular Hemoglobin Concent 33.2 G/DL (32.0-36.0) Red Cell Distribution Width 13.1 % (11.6-14.8) Platelet Count 134 K/UL (150-450) L Mean Platelet Volume 7.7 FL (6.5-10.1) Neutrophils (%) (Auto) 43.3 % (45.0-75.0) L Lymphocytes (%) (Auto) 36.2 % (20.0-45.0) Monocytes (%) (Auto) 11.7 % (1.0-10.0) H Eosinophils (%) (Auto) 7.0 % (0.0-3.0) H Basophils (%) (Auto) 2.0 % (0.0-2.0) Sodium Level 137 MMOL/L (136-145) Potassium Level 4.4 MMOL/L (3.5-5.1) Chloride Level 98 MMOL/L (98-107) Carbon Dioxide Level 30 MMOL/L (21-32) Anion Gap 9 mmol/L (5-15) Blood Urea Nitrogen 49 mg/dL (7-18) H Creatinine 6.5 MG/DL (0.55-1.30) H Estimat Glomerular Filtration Rate 7.6 mL/min (>60) Glucose Level 89 MG/DL (74-106) Calcium Level 9.0 MG/DL (8.5-10.1) Phosphorus Level 4.3 MG/DL (2.5-4.9) Total Bilirubin 0.3 MG/DL (0.2-1.0) Aspartate Amino Transf (AST/SGOT) 14 U/L (15-37) L Alanine Aminotransferase (ALT/SGPT) 12 U/L (12-78) Alkaline Phosphatase 53 U/L (46-116) C-Reactive Protein, Quantitative 1.2 mg/dL (0.00-0.90) H Pro-B-Type Natriuretic Peptide 4474 pg/mL (0-125) H Total Protein 6.1 G/DL (6.4-8.2) L Albumin 2.7 G/DL (3.4-5.0) L Globulin 3.4 g/dL Albumin/Globulin Ratio 0.8 (1.0-2.7) L Plan Problems: (1) Diabetic nephropathy (2) Cellulitis of left foot (3) Pacemaker (4) Anemia in chronic kidney disease (CKD) (5) History of CVA (cerebrovascular accident) (6) History of atrial fibrillation (7) COPD (chronic obstructive pulmonary disease) (8) Bradycardia (9) Diabetic nephropathy (10) Hypertensive kidney disease (11) Heel abrasion (12) Elevated troponin I level (13) Urinary tract infection due to Proteus (14) ESRD (end stage renal disease) Assessment & Plan: plan HD cath insertion resume HD per nepro (15) Volume overload (16) Hyperkalemia (17) Generalized weakness (18) Dyspnea (19) Symptomatic anemia (20) Acute on chronic renal failure (21) Anemia (22) HTN (hypertension) (23) Deep tissue injury Assessment & Plan: Pt presented on admission with Multiple Pressure injuries.Sacral DTPI noted over previously compromised area. Surrounding surgical scar. Base of Pressure Injury is indurated ,purpuric with Maroon Borders. Black discoloration with marginal erythema noted to R and L Buttocks. Linear area of hyperpigmentation noted sacral cleft. Darker skin tone without erythema or induration noted to R and L ischial tuberosities. L 1st metatarsal is black with small blood filled blister at tip of metatarsal.Web space of L 1st and L 2nd metatarsal is erythematous and macerated. Mild odor noted. Dry necrotic area noted to lateral aspect of L 5th metatarsal. Dry eschar lateral L foot (L)1cm x (W)1.5cm. Periwound is dry without erythema or fluctuance. Unstageable Pressure Injury L Heel(L)2.4cm x (W)3.5cm. Base of wound is necrotic with surrounding moist and pale skin,dry black borders. R 1st metatarsal is black. T heel is boggy, pale with dry peeling skin. Return visit to complete Skin assessment as pt was being dialyzed previous day.Pt is morbidly obese. Bilat breasts folds and abdominal folds are moist and malodorous MASD Buttocks including Bilat Ischial tuberosities. Affected areas are erythematous and denuded. Moisture Intertrigo cleft of buttocks. Full thickness Ulcer medial upper R thigh (L)1.4cm x (W)1 cm x (D)0.2cm. Base of wound is monique with scattered Biofilm, and macerated Borders. NO exudate noted. Periwound, skin is erythematous, moist and malodorous. An area of Hyperpigmentation noted to medial aspect of R thigh in close proximity to wound. Medial upper L thigh is erythematous ,denuded and malodorous. Tx.Plan: Apply Moisture Barrier Paste to buttocks, ischium, and Bilat medial upper thighs with each incontinence care. Cleanse wound medial upper L thigh with Saline. Apply Therahoney. Apply Moisture Barrier Paste periwound. Cover with Optifoam drsg. Change Daily and prn. Cleanse Sacral wound with Saline. Apply TheraHoney. Apply Moisture Barrier Paste Periwound. Cover with Optifoam drsg. Change every 3 days and prn. Apply Moisture Barrier Paste to R and L ischial tuberosities with each Incontinence care. wash L heel. apply betadine and cover with optifoam dressing Apply Cavilon Skin Barrier to R Heel. Cover with Optifoam drsg. Change every 7 days and prn. Reposition at least every 2hours or as tolerated. off-load heels with pillows. nutritional optimization DAILY ESTIMATED NEEDS: Needs based on ESRD on HD, wound obese 70.5kg abw 20-25 kcals/kg [id number] total kcals 1.8-2.5 IBW 56.8kg g protein/kg 102-142 g total protein Fluid per MD on HD NUTRITION DIAGNOSIS: Increased protein needs r/t renal dysfunction and wound healing as evidenced by pt w/ ESRD on HD, w/ L heel unstageable wound. CURRENT DIET:renal diet, no chicken PO DIET RECOMMENDATIONS: RENAL DIET/ texture per BUILDING ANALYST/SUPERVISOR ADDITIONAL RECOMMENDATIONS: 1) Calibrated bedscale wt if adding P200 mattress + pump 2) Add NEPRO 1 tetra w/ meals w/ poor meal acceptance Prior adm w/ poor po intake 3) Wound care: continue SOLEDAD BID + Add Nephrovite x1 daily Vit C-> dosing per nephro 4) Monitor lytes and renal fxn Luis Alberto Cade Jul 05, 2020 21:17
--- NOTE | 2020-07-06 08:24 | Discharge Summary ---
Discharge Summary Discharge Summary _ DATE OF ADMISSION: 06/23/2020 DATE OF DISCHARGE: 07/05/2020 DISCHARGED BY: Dr. Banegas REASON FOR ADMISSION: 69 years old female with past medical history of diabetes, CVA, end-stage renal disease, on hemodialysis, decubitus ulcer, was transferred from home after missing several hemodialysis session. Patient had hemodialysis catheter for dialysis. No fever and chills. No nausea and vomiting. No abdominal pain. Upon evaluation vital signs were stable. Chest x-ray revealed volume overload mild volume overload ; no focal consolidation. Left-sided dual lead pacemaker and right transjugular tunneled dialysis catheter. Laboratory work-up revealed no leukocytosis ,hemoglobin 11.7 ,hematocrit 35.1, platelet count 133. Potassium 6.6. BUN 95, creatinine 12.7. Glucose 104. Lactic acid 1.0. Stable LFT. Troponin negative . Rapid COVID-19 was negative. Patient admitted with hyperkalemia , volume overload due to missed hemodialysis and end-stage renal disease. CONSULTANTS: director of hotel Dr. Shepherd vascular surgeon Dr. Feng pulmonary Dr. Roe ID specialist Dr. Lei light rail train operator Dr. Stephenson general surgery Dr. Cade [facility] COURSE: Patient admitted . Hemodialysis provided as per light rail train operator recommendation with ultrafiltration and close monitoring of volumes, renal parameters electrolytes. Hyperkalemia was corrected. Echocardiogram revealed preserved ejection fraction of 55%. No evidence of wall motion abnormality. Moderately elevated left atrial pressure grade 2. Venous duplex bilateral upper and lower extremity revealed no evidence of DVT. Blood culture initially revealed Staph capitis . Patient had Staph capitis bacteremia in April 2020 and at that time was treated with 2 weeks of IV vancomycin with no recurrence of bacteremia. Blood culture initially this time were positive as well. Patient started on vancomycin as epr ID specialist recommendations. PermCath was removed . Repeated blood culture 06/25 revealed no evidence of growth. Echocardiogram revealed no evidence of vegetation. Catheter tip culture revealed no evidence of growth. Per ID specialist, Staph capitis bacteremia was likely due to hemodialysis catheter infection . Patient had Staph capitis bacteremia in April 2020 and at that time was treated with 2 weeks of IV vancomycin with no recurrence of bacteremia. ID specialist recommended total treatment of 4 weeks with IV vancomycin for staph capitis bacteremia due to likely hemodialysis catheter infection. Patient subsequently undergone Setve catheter placement on 06/30 and then the new PermCath placement on 07/02. Vascular surgeon seen and evaluated patient. Vascular surgeon recommended to complete antibiotics as per ID recommendation. Offload legs decubitus. Insertion of AV fistula can be performed as outpatient once cleared by infectious disease specialist. Patient had a history of left foot ankle wound , which was not grossly infected. No osteomyelitis on bone scan prior. Wound care provided as per surgeon recommendation . Continue wound care at the facility. CRP 5.9, ESR 53. Anticoagulation for atrial fibrillation with Eliquis provided. Blood pressure was managed with hydralazine. Patient was off any AV joe agents. Heart rate stabilized. Supplemental oxygen was on board as needed. Pulse oximetry remained stable on room air. GI prophylaxis provided. Supportive care provided. Patient clinically stabilized and was ready for discharge home. FINAL DIAGNOSES: Sepsis with Staph capitis likely due to hemodialysis catheter infection Hyperkalemia Volume overload due to missed hemodialysis End-stage renal disease, requiring hemodialysis Atrial fibrillation Bradycardia Diabetes mellitus Hypertension Left chest DDD pacemaker Severe calcific PAD with left foot decubitus ulcer History of left arm AV shunt malfunctioning Morbid obesity Asthma hyperlipidemia History of CVA with left-sided hemiparesis Dementia Decubitus ulcer present on admission DISCHARGE MEDICATIONS: See Medication Reconciliation list. DISCHARGE INSTRUCTIONS: Patient was discharged home. Outpatient follow-up with the dialysis as scheduled. Follow-up with a primary care provider in 1 week. I have been assigned to dictate discharge summary for this account. I was not involved in the patient's management. Cary Jarvis NP Jul 06, 2020 08:24
== END 2020-07-05 19:20 | disposition home or self-care (01) | DRG 314 ==
LOC: EDBD 08:42 → EDUNIT# 08:42 → EMR 09:10 → 2E 10:58 → EDBEDREQ 11:56 → 4E 06-24 23:15
PROC: 5A1D70Z Performance of Urinary Filtration, Intermittent, Less than 6 Hours Per Day (ICD-10-PCS; 2020-06-26)
PROC: 05PYX3Z Removal of Infusion Device from Upper Vein, External Approach (ICD-10-PCS; 2020-06-28)
PROC: 05HM33Z Insertion of Infusion Device into Right Internal Jugular Vein, Percutaneous Approach (ICD-10-PCS; principal; 2020-06-30)
PROC: 0JH63XZ Insertion of Tunneled Vascular Access Device into Chest Subcutaneous Tissue and Fascia, Percutaneous Approach (ICD-10-PCS; 2020-07-02)
PROC: 02H633Z Insertion of Infusion Device into Right Atrium, Percutaneous Approach (ICD-10-PCS; 2020-07-02)
DX: T80.211A Bloodstream infection due to central venous catheter, initial encounter (principal); A41.1 Sepsis due to other specified staphylococcus; L89.893 Pressure ulcer of other site, stage 3; N18.6 End stage renal disease; J81.0 Acute pulmonary edema; L89.603 Pressure ulcer of unspecified heel, stage 3; I12.0 Hypertensive chronic kidney disease with stage 5 chronic kidney disease or end stage renal disease; I69.354 Hemiplegia and hemiparesis following cerebral infarction affecting left non-dominant side; L03.116 Cellulitis of left lower limb; N39.0 Urinary tract infection, site not specified; N17.9 Acute kidney failure, unspecified; I48.20 Chronic atrial fibrillation, unspecified; E87.5 Hyperkalemia; E11.22 Type 2 diabetes mellitus with diabetic chronic kidney disease; E78.5 Hyperlipidemia, unspecified; F03.90 Unspecified dementia, unspecified severity, without behavioral disturbance, psychotic disturbance, mood disturbance, and anxiety; J44.9 Chronic obstructive pulmonary disease, unspecified; J45.909 Unspecified asthma, uncomplicated; K21.9 Gastro-esophageal reflux disease without esophagitis; Z88.0 Allergy status to penicillin; I70.209 Unspecified atherosclerosis of native arteries of extremities, unspecified extremity; E66.01 Morbid (severe) obesity due to excess calories; Z91.15 Patient's noncompliance with renal dialysis; Z95.0 Presence of cardiac pacemaker; Z99.2 Dependence on renal dialysis; Z79.82 Long term (current) use of aspirin; D63.1 Anemia in chronic kidney disease; R00.1 Bradycardia, unspecified; B96.4 Proteus (mirabilis) (morganii) as the cause of diseases classified elsewhere; E11.21 Type 2 diabetes mellitus with diabetic nephropathy; L89.156 Pressure-induced deep tissue damage of sacral region; L89.620 Pressure ulcer of left heel, unstageable; E11.40 Type 2 diabetes mellitus with diabetic neuropathy, unspecified; Z79.01 Long term (current) use of anticoagulants; G89.29 Other chronic pain; E87.79 Other fluid overload; Z68.39 Body mass index [BMI] 39.0-39.9, adult
CPT/HCPCS: 36415; 36558; 36569; 36589; 71045; 76000; 76937; 80048; 80053; 80061; 80202; 81003; 82550; 82553; 82977; 83036; 83605; 83735; 83880; 84100; 84484; 84550; 85007; 85025; 85610; 85651; 85730; 86140; 86706; 87040; 87070; 87081; 87086; 87181; 93005; 93306; 93922; 93925; 93930; 93970; 96360; 99285; J2405; J7030; S0077; U0002

== ENCOUNTER 2020-07-20 19:48 | Inpatient (IN) | payer MEDICARE, OTHER ==
[~2020-07-20] VITALS: Ht 162.6 cm; Wt 112.7 kg
--- NOTE | 2020-07-20 20:05 | Emergency Room Report ---
History of Present Illness General Chief Complaint: General Complaint Source: Patient Present Illness HPI Patient is a 70-year-old female multiple medical history specifically past medical history of end-stage renal disease on dialysis Sunday last dialysis was on Sunday but last week she missed Sunday and Sunday she states that this is all due to insurance issues with transportation. Patient denies any chest pain or shortness of breath. She denies any fever or chills. She denies any abdominal pain, nausea or vomiting. Patient was brought in by EMS from her home. Dr. Makenzie osborn upon patient arrival. Allergies: Coded Allergies: PENICILLINS (Verified Allergy, Unknown, 04/23/20) Tolerated Cefepime 04/23/20 COVID-19 Screening Contact w/high risk pt: No Recent Travel to affected area: No Experienced COVID-19 symptoms?: No COVID-19 symptoms experienced: Cough COVID-19 Testing performed DETECTIVE BUREAU CHIEF: No Patient History Reviewed Nursing Documentation: PMH: Agreed; PSxH: Agreed Nursing Documentation-PMH Hx Cardiac Problems: Yes - BRADYCARDIA, FLUID OVERLOAD Hx Hypertension: Yes Hx Pacemaker: Yes - LEFT UPPER CHEST Hx Asthma: Yes Hx COPD: Yes Hx Diabetes: Yes Hx Cancer: No Hx Gastrointestinal Problems: No Hx Dialysis: Yes - ESRD ON HD (MWF) Hx Neurological Problems: Yes Hx Cerebrovascular Accident: Yes - 1974 Hx Weakness: Yes Review of Systems All Other Systems: negative except mentioned in HPI Physical Exam Sp02 EP Interpretation: reviewed, normal General Appearance: no apparent distress, alert, GCS 15, non-toxic, obese, Chronically Ill Head: normocephalic, atraumatic Eyes: bilateral eye normal inspection, bilateral eye PERRL ENT: hearing grossly normal, normal pharynx, no angioedema, normal voice Neck: full range of motion, supple/symm/no masses Respiratory: no respiratory distress, no accessory muscle use, other - Right anterior chest wall permacath in place Cardiovascular #1: regular rate, rhythm Gastrointestinal: non tender, soft, overweight Rectal: deferred Musculoskeletal: no calf tenderness Neurologic: kosher butcher III-XII nml as tested, oriented x3 Psychiatric: no suicidal/homicidal ideation Skin: no rash Lymphatic: no adenopathy Medical Decision Making Diagnostic Impression: Primary Impression: ESRD (end stage renal disease) Additional Impressions: Anemia in chronic kidney disease (CKD) Hyperkalemia ER Course At 8:10 PM I spoke with Dr. Banegas. He would like his patient admitted for dialysis tomorrow morning. He is also requesting that I paged the patient's aircraft systems technician Dr. Leija. I am paging him now. Dr. Leija called back. He will put in the dialysis order. He knows the issue with the insurance and has binder caser working on it. Patient has mild hyperkalemia with potassium of 5.3. Patient's labs demonstrate chronic renal insufficiency. Patient will be admitted for dialysis. Patient also given 30 g of Kayexalate. Laboratory Tests Test 07/20/20 20:20 White Blood Count 6.7 K/UL (4.8-10.8) Red Blood Count 3.06 M/UL (4.20-5.40) L Hemoglobin 9.2 G/DL (12.0-16.0) L Hematocrit 29.6 % (37.0-47.0) L Mean Corpuscular Volume 97 FL (80-99) Mean Corpuscular Hemoglobin 30.0 PG (27.0-31.0) Mean Corpuscular Hemoglobin Concent 31.0 G/DL (32.0-36.0) L Red Cell Distribution Width 14.6 % (11.6-14.8) Platelet Count 147 K/UL (150-450) L Mean Platelet Volume 8.3 FL (6.5-10.1) Neutrophils (%) (Auto) 51.6 % (45.0-75.0) Lymphocytes (%) (Auto) 30.5 % (20.0-45.0) Monocytes (%) (Auto) 9.4 % (1.0-10.0) Eosinophils (%) (Auto) 6.4 % (0.0-3.0) H Basophils (%) (Auto) 2.1 % (0.0-2.0) H Prothrombin Time 10.8 SEC (9.30-11.50) Prothrombin Time INR 1.0 (0.9-1.1) Activated Partial Thromboplast Time 27 SEC (23-33) Sodium Level 140 MMOL/L (136-145) Potassium Level 5.3 MMOL/L (3.5-5.1) H Chloride Level 103 MMOL/L (98-107) Carbon Dioxide Level 30 MMOL/L (21-32) Anion Gap 7 mmol/L (5-15) Blood Urea Nitrogen 65 mg/dL (7-18) H Creatinine 9.3 MG/DL (0.55-1.30) H Estimated Glomerular Filtration Rate 5.1 mL/min (>60) Glucose Level 128 MG/DL (74-106) H Calcium Level 9.6 MG/DL (8.5-10.1) Magnesium Level 3.3 MG/DL (1.8-2.4) H Total Bilirubin 0.3 MG/DL (0.2-1.0) Aspartate Amino Transferase (AST) 14 U/L (15-37) L Alanine Aminotransferase (ALT) 11 U/L (12-78) L Alkaline Phosphatase 57 U/L (46-116) Total Protein 6.9 G/DL (6.4-8.2) Albumin 3.1 G/DL (3.4-5.0) L Globulin 3.8 g/dL Albumin/Globulin Ratio 0.8 (1.0-2.7) L EKG Diagnostic Results Troponin ordered: No - EKG ordered for missed dialysis and possible hyperkalemia EKG Time: 19:58 EP Interpretation: Verenice Gibbs MD Rate: normal Rhythm: NSR ST Segments: no acute changes Other Impression PVC ASA given to the pt in ED: No Rhythm Strip Diag. Results Rhythm Strip Time: 20:05 EP Interpretation: yes - Verenice Gibbs MD Rate: 82 bpm Rhythm: NSR, no PVC's, no ectopy Chest X-Ray Diagnostic Results Chest X-Ray Diagnostic Results : Chest X-Ray Ordered: Yes # of Views/Limited/Complete: 1 View Indication: Other - Missed dialysis EP Interpretation: Yes Interpretation: no consolidation, no effusion, no pneumothorax, other - Mildly increased pulmonary vasculature Impression: Other - mild pulmonary congestion Electronically Signed by: Verenice Gibbs MD Disposition: PLACE IN OBSERVATION Condition: Critical Physician Consult: Dr. Banegas and Dr. Leija Additional Instructions: Please note that this report is being documented using [employer] technology. This can lead to erroneous entry secondary to incorrect interpretation by the dictating instrument. Verenice Gibbs M.D. Jul 20, 2020 20:05
--- NOTE | 2020-07-20 20:10 | NUR ---
ED Nurse Note: Recieved pt BIBA from home with c/o not having dialysis and wheezing, pt is ESRD and does dialysis on , had on sunday but missed last sun and sunday, pt is awake, alert and oriented x 4, denies chest pain, mild bilat inspiratory and expiratory wheezes heard on breath sounds, pt has permacath to right chest wall and AV shunt to left arm which is new and not used yet, positive bruit and thrill felt, pt also with pacemaker, pt immediately placed on cardiac monitoring, pt is morbid obese and requires multiple staff to position, will resume care as ordered and continue to closely monitor.
[2020-07-20 20:42] LABS: BASOPHILS % (AUTO) 2.1 % (0.0-2.0); EOSINOPHILS % (AUTO) 6.4 % (0.0-3.0); HEMATOCRIT 29.6 % (37.0-47.0); HEMOGLOBIN 9.2 G/DL (12.0-16.0); LYMPHOCYTES % (AUTO) 30.5 % (20.0-45.0); MEAN CORPUSCULAR VOLUME 97 FL (80-99); MONOCYTES % (AUTO) 9.4 % (1.0-10.0); NEUTROPHILS % (AUTO) 51.6 % (45.0-75.0); PLATELET COUNT 147 K/UL (150-450); RED BLOOD COUNT 3.06 M/UL (4.20-5.40); RED CELL DISTRIBUTION WIDTH 14.6 % (11.6-14.8); WHITE BLOOD COUNT 6.7 K/UL (4.8-10.8)
[2020-07-20] MEDS ORDERED: HYDROmorphone 1mg/ml Carpuject IM ONE (20:45)
[2020-07-20 20:55] LABS: CALCIUM 9.6 MG/DL (8.5-10.1); CREATININE 9.3 MG/DL (0.55-1.30); POTASSIUM 5.3 MMOL/L (3.5-5.1)
[2020-07-20 20:59] LABS: ALBUMIN 3.1 G/DL (3.4-5.0); ALBUMIN/GLOBULIN RATIO 0.8 (1.0-2.7); BILIRUBIN,TOTAL 0.3 MG/DL (0.2-1.0)
[2020-07-20 21:00] VITALS: BP 152/86
--- NOTE | 2020-07-20 21:05 | NUR ---
ED Nurse Note: Pt in bed resting quietly on monitoring, multiple attempts made for IV access unsuccessful, pt is very hard stick, charge nurse and MD barlow bedside assisting, pt c/o severe pain to buttocks area and medicated, will continue to closely monitor and prepare for hospital admission.
[2020-07-20] MEDS ORDERED: Sodium Polystyrene Sulfonate 15gm Powder ORAL ONE (21:15)
--- NOTE | 2020-07-20 21:45 | NUR ---
ED Nurse Note: IV access obtained, meds given for pain effective, pt sleeping,a rouses easily to verbal stimuli, pt is being admitted, pt refused naasal swabs, rectal swabs done, pt also noted with sacrykl / coccyx wound with excoriation to vicki area, photos taken, MD notified and shown area, pt daughter present in lobby and aware of admission, spoken to by charge nurse sara, report called to floor nurse KENNEDIRN, pt being taken to unit via gurney with [facility], has all belongings and list completed, nad noted during ot transport to unit.
[2020-07-20] MEDS ORDERED: HYDROcodone/Acetamin 5/325 tab ORAL PRN (23:30)
[2020-07-21] MEDS: HydrALAZINE 25mg tab ORAL SCH ×4 (00:21→21:10)
[2020-07-21 00:59] VITALS: BP 167/74
[2020-07-21 04:00] VITALS: BP 133/76
--- NOTE | 2020-07-21 04:47 | NUR ---
NURSE NOTES: Admitted is a 70 years old female via [facility], transferred to bed and made comfortable. oriented to hospital policies, call light and bed control. All orders verified with Dr. Banegas, taken and carried out. Pt. refused body assessment and picture taking of her wound,states, " Why? They just took it downstairs, why do you have to do it again?" tried to explain the importance but pt. starts to argue and states, " No. I don't want to. period." Pt. is uncooperative, does not want interview because she is tired and wants to go sleep. Retried doin it again after 3 hours but pt. still refused. Rights respected. With permacath on right chest wall and shunt on left upper arm as per report, unable to see and examined it due to pt. is uncooperative. Will continue to monitor and will re eval.
--- NOTE | 2020-07-21 07:36 | History & Physical ---
History and Physical History & Physicial HISTORY OF PRESENT ILLNESS: The patient is a pleasant 70-year-old female with a history of end-stage renal disease, on hemodialysis. The patient has been transferred from her home as she has missed several HD sessions. Dtr called me in the office and reported and she is advised to transfer mother to hospital . The patient is currently receiving dialysis through a temporary PermCath. Today , the patient denies any chest pain , just diffuse pain and aches. No nausea. No vomitus. No diarrhea. No constipation. PAST MEDICAL HISTORY: Diabetes, CVA, paraparesis, and end-stage renal disease. decubitus wound ALLERGIES: Penicillin. PSH: Right permcath insertion and extraction followed by new line replacement . MEDICATIONS: Current hospital medications including, but not limited to lisinopril, hydralazine, Eliquis, and amiodarone. SOCIAL HISTORY: The patient has a daughter who is involved in the care, is residing in her home with her daughter. she was dc/wd from the [facility]. No prior history of illicit drug abuse, smoking, or alcohol abuse. PHYSICAL EXAMINATION: BP: 135/85, RR: 13, temperature 98.2, pulse oximetry 98% on room air, and pulse rate 60 to 65. HEAD AND NECK: Atraumatic and normocephalic. CHEST: Clear to auscultation. HEART: S1, S2. Regular rate and rhythm. Bradycardic. MUSCULOSKELETAL: No gross lateralized motor deficit, paraparesis. stage 3 decubitus wound in calcaneal region.NEUROLOGIC: The patient is awake and alert x 2. LABORATORY AND DIAGNOSTIC DATA: Labs dated 07/20/20 reviewed ASSESSMENT: 1. hyperKalemia and Missed HD sessions 2. Decubitus wound, enlarging and infected. 3. End-stage renal disease, on temporary PermCath hemodialysis access. 2. Paroxysmal atrial fibrillation, rate is stable. 3. Diabetes type 2. 4. Hypertension. 5. Hyperlipidemia. 6. CVA-history. 7. Dementia. 8. Gastrointestinal and deep vein thrombosis prophylaxes. 9. Pain management Plan: HD- per Nephrology Nephrology , Dr Stephenson consulted. Agree with medical floor admission Danie Banegas MD Jul 21, 2020 07:36
--- NOTE | 2020-07-21 07:37 | General Progress Note ---
Subjective Allergies: Coded Allergies: PENICILLINS (Verified Allergy, Unknown, 04/23/20) Tolerated Cefepime 04/23/20 Objective Last 24 Hour Vital Signs Date Time Temp Pulse Resp B/P (MAP) Pulse Ox O2 Delivery O2 Flow Rate FiO2 07/21/20 06:00 133/75 07/21/20 04:00 98.2 73 22 133/76 (95) 94 07/21/20 00:59 98.4 58 22 167/74 (105) 94 07/21/20 00:29 Room Air 07/21/20 00:21 167/74 07/20/20 21:55 98.2 64 15 152/86 97 Room Air 07/20/20 21:48 98.2 07/20/20 21:00 98.2 64 15 152/86 97 Room Air 07/20/20 20:10 66 15 Room Air 07/20/20 19:50 98.2 66 15 168/71 (103) 97 Room Air Intake and Output 07/20/20 07/21/20 19:00 07:00 Intake Total 50 ml Output Total 0 ml Balance 50 ml Intake Oral 50 ml Output Urine Total 0 ml Laboratory Tests 07/20/20 20:20: White Blood Count 6.7, Red Blood Count 3.06L, Hemoglobin 9.2L, Hematocrit 29.6L, Mean Corpuscular Volume 97, Mean Corpuscular Hemoglobin 30.0, Mean Corpuscular Hemoglobin Concent 31.0L, Red Cell Distribution Width 14.6, Platelet Count 147L, Mean Platelet Volume 8.3, Neutrophils (%) (Auto) 51.6, Lymphocytes (%) (Auto) 3 0.5, Monocytes (%) (Auto) 9.4, Eosinophils (%) (Auto) 6.4H, Basophils (%) (Auto) 2.1H, Prothrombin Time 10.8, Prothromb Time International Ratio 1.0, Activated Partial Thromboplast Time 27, Sodium Level 140, Potassium Level 5.3H, Chloride Level 103, Carbon Dioxide Level 30, Anion Gap 7, Blood Urea Nitrogen 65H, Creatinine 9.3H, Estimat Glomerular Filtration Rate 5.1, Glucose Level 128H, Calcium Level 9.6, Magnesium Level 3.3H, Total Bilirubin 0.3, Aspartate Amino Transf (AST/SGOT) 14L, Alanine Aminotransferase (ALT/SGPT) 11L, Alkaline Phosphatase 57, Total Protein 6.9, Albumin 3.1L, Globulin 3.8, Albumin/Globulin Ratio 0.8L Height (Feet): 5 Height (Inches): 4.00 Weight (Pounds): 179 Assessment/Plan Assessment/Plan: S: I am ok O: seems comfortable, denies chest pain sob PHYSICAL EXAMINATION: HEAD AND NECK: Atraumatic and normocephalic. CHEST: Clear to auscultation. HEART: S1, S2. Regular rate and rhythm. Bradycardic. MUSCULOSKELETAL: No gross lateralized motor deficit, paraparesis. stage 3 decubitus wound in calcaneal region.NEUROLOGIC: The patient is awake and alert x 2. LABORATORY AND DIAGNOSTIC DATA: Labs dated 07/22/20 reviewed ASSESSMENT: 1. hyperKalemia and Missed HD sessions in a patient who refuses Kayexalate 2. Decubitus wound, enlarging and infected. 3. End-stage renal disease, on temporary PermCath hemodialysis access. 2. Paroxysmal atrial fibrillation, rate is stable. 3. Diabetes type 2. 4. Hypertension. 5. Hyperlipidemia. 6. CVA-history. 7. Dementia. 8. Gastrointestinal and deep vein thrombosis prophylaxes. 9. Pain management Plan: HD- per Nephrology hyperKalemia and Missed HD sessions in a patient who refuses Kayexalate Given the logistic problem for arranging HD and high risk for recurrence of hyperkalemia, will monitor K level for additional day Danie Banegas MD Jul 21, 2020 07:37
--- NOTE | 2020-07-21 07:38 | NUR ---
NURSE HAND-OFF: Important Events on Shift:new admission, refusal to do body check Patient Status: alert but needed to be dialyzed Diet: Renal CCHO Pending Orders: for dialysis today Pending Results/Labs: Pending MD notification: Latest Vital Signs: Temperature 98.2 , Pulse 73 , B/P 133 /75 , Respiratory Rate 22 , O2 SAT 94 , Room Air, O2 Flow Rate . Vital Sign Comment: Latest Srivastava Fall Score: 40 Fall Risk: Medium Risk Safety Measures: Call light Within Reach, Bed Alarm Zone 2, Side Rails Side Rails x2, Bed position Low and Locked. Fall Precautions: Yellow Socks Yellow Gown Door Sign Patient Fall Education Report given to .
--- NOTE | 2020-07-21 07:40 | NUR ---
NURSE NOTES: RN SPOKE TO MERY AT [facility] AND MADE AWARE OF NEW HD ORDER FOR TODAY.
[2020-07-21 08:00] VITALS: BP 148/73
--- NOTE | 2020-07-21 08:05 | NUR ---
NURSE NOTES: RN SPOKE TO VIKAS JUAREZ FROM [facility] AND CONFIRMED HD TODAY IN THE AFTERNOON. PT AWAKE, AXOX4, AND COOPERATIVE. RIGHT CHEST PERMACATH COVERED IN DRY DRESSINGS. PT CONFIRMS PERMACATH IS USED FOR HD. PT EDUCATED THE IMPORTANCE OF REPOSITIONING TO PREVENT PRESSURE ULCERS AND RN NEEDS TO RE-TAKE PICTURES OF SACRAL PER HOSPITAL PROTOCOL. PT VERBALIZED UNDERSTANDING AND AGREED TO TAKE PICTURES LATER IN THE DAY. IN NO APPARENT DISTRESS AT THIS TIME. NO RESPIRATORY DISTRESS NOTED. BED IN LOWEST POSITION WITH BEDSIDE RAILS X3 RAISED. CALL LIGHT WITHIN REACH. RN UNABLE TO WEIGH BED. BED WAS "ZEROED" BEFORE AND GIVING INACCURATE WEIGHT OF 1.5KG. PT IS BEDBOUND AND UNABLE TO RESET BED SCALE.
[2020-07-21] MEDS: Renvela 800mg Pkt ORAL SCH ×3 (09:46→17:17)
[2020-07-21] MEDS: Docusate 100mg cap ORAL SCH ×2 (09:46→17:17)
--- NOTE | 2020-07-21 10:28 | NUR ---
RD ASSESSMENT & RECOMMENDATIONS SEE CARE ACTIVITY FOR COMPLETE ASSESSMENT DAILY ESTIMATED NEEDS: Needs based on ESRD on HD, wound obese 73kg abw 20-25 kcals/kg 3346-1215 total kcals 1.8-2.5 IBW 56.8kg g protein/kg 102-142 g total protein Fluid per MD on HD NUTRITION DIAGNOSIS: Increased protein needs r/t renal dysfunction and wound healing as evidenced by pt w/ ESRD on HD, h/o of wound, eval pending. CURRENT DIET: Low Na/ renal/ CCHO PO DIET RECOMMENDATIONS: RENAL DIET+ DOUBLE PRO PORTIONS / texture per SELF RISING FLOUR MIXER ADDITIONAL RECOMMENDATIONS: 1) Calibrated bedscale wt if adding P200 mattress + pump 2) Add NEPRO 1 tetra w/ meals w/ poor meal acceptance - no record of po intake at this time 3) Wound care: continue SOLEDAD BID + Add Nephrovite x1 daily Vit C-> dosing per nephro 4) Monitor lytes and renal fxn .
--- NOTE | 2020-07-21 10:45 | NUR ---
NURSE NOTES: UNABLE TO WEIGH PT. BED WAS PREVIOUSLY ZEROED WITH PT STILL ON THE BED AND INACCURATE READING SHOWN ON BED SCALE. CRN MADE AWARE. PT IS OBESE AND BEDBOUND.
--- NOTE | 2020-07-21 11:00 | NUR ---
NURSE NOTES: PT HAS 2 SACRAL WOUNDS, DOCUMENTED ON INITIAL WOUND CARE ASSESSMENT. RN ENTERED WOUND CARE PROTOCOL FOR STAGE 2 PRESSURE ULCER OF SACRAL WOUNDS. RN CLEANSED WITH SOAP AND WATER, PATTED DRY, APPLIED TRIAD CREAM, AND APPLIED OPTIFOAM. BILATERAL HEELS ARE INTACT. APPLIED CAVILON SKIN BARRIER WIPE AND COVERED WITH OPTIFOAM FOR PROTECTION. PT TOLERATED WELL.
--- NOTE | 2020-07-21 11:35 | NUR ---
NURSE HAND-OFF: Important Events on Shift: hd confirmed for today with [facility], sacral wound treated and pictures uploaded, mrsa/vre/cre swabs done today and sent to lab. Patient Status: stable Diet: renal/ccho low/low sodium Pending Orders: n/a Pending Results/Labs:n/a Pending MD notification:n/a Latest Vital Signs: Temperature 98.2 , Pulse 60 , B/P 143 /70 , Respiratory Rate 19 , O2 SAT 96 , Nasal Cannula, O2 Flow Rate 2.0 . Vital Sign Comment: stable Latest Srivastava Fall Score: 40 Fall Risk: Medium Risk Safety Measures: Call light Within Reach, Bed Alarm Zone 1, Side Rails Side Rails x3, Bed position Low and Locked. Fall Precautions: Yellow Gown Door Sign Patient Fall Education Report given to Mann Angel RN.
--- NOTE | 2020-07-21 11:36 | NUR ---
NURSE NOTES: I received this patient report from VIKAS Bowie; patient sleepy; on room air, no sing of distress and shortness of breath; no sing of chest pain; IV Right Upper Arm flushes well; Hemodialysis access on Right chest Per-macath; per report patient scheduled for hemodialysis with [facility] today; per report dialysis nurseMike confirmed the scheduled hemodialysis, and will dialysis this patient this afternoon. Patient's weight wasn't taken by previous nurse; side rials up x2, breaks engaged, bed at lowest position, bed alarm on; call light within reach; will keep monitoring.
[2020-07-21 12:00] VITALS: BP 143/70
--- NOTE | 2020-07-21 13:17 | Consultation ---
Consult Note Consult Note Patient is under my care for dialysis related management. She missed getting outpatient dialysis a few sessions. Patient is a 70-year-old female multiple medical history specifically past medical history of end-stage renal disease on dialysis Sunday last dialysis was on Sunday but last week she missed Sunday and Sunday she states that this is all due to insurance issues with transportation. Patient denies any chest pain or shortness of breath. She denies any fever or chills. She denies any abdominal pain, nausea or vomiting. Patient was brought in by EMS from her home. Dr. Banegas paged upon patient arrival. Allergies: PENICILLINS (Verified Allergy, Unknown, 04/23/20 Tolerated Cefepime 04/23/20 COVID-19 Screening Contact w/high risk pt: No Recent Travel to affected area: No Experienced COVID-19 symptoms?: No COVID-19 symptoms experienced: Cough COVID-19 Testing performed AMBULATORY NURSE: No Hx Cardiac Problems: Yes - BRADYCARDIA, FLUID OVERLOAD Hx Hypertension: Yes Hx Pacemaker: Yes - LEFT UPPER CHEST Hx Asthma: Yes Hx COPD: Yes Hx Diabetes: Yes Hx Gastrointestinal Problems: No Hx Dialysis: Yes - ESRD ON HD (MWF) Hx Neurological Problems: Yes Hx Cerebrovascular Accident: Yes - 1974 Hx Weakness: Yes Assessment/Plan ESRD (end stage renal disease), missed few sessions of hemodialysis Volume overload , Hyperkalemia other conditions: -. Diabetes with diabetic nephropathy and neuropathy. -. History of CVA with left weakness. -. History of atrial fibrillation. -. History of pacemaker. Hemodialysis with low potassium bath ordered Ultrafiltration max as tolerated during hemodialysis continue meds Aim to keep the BP and BS in check Manas Stephenson MD Jul 21, 2020 13:17
--- NOTE | 2020-07-21 13:32 | NUR ---
NURSE NOTES: Skin/wound assessment:Sacral Pressure ulcer stage 2 with two open areas proximal 1.8x0.5x0.2 pink granulation tissue,distal 0.8x0.9x0.2 pink granulation tissue moderate amount serosanguineous drainage,periwound skin excoriation Triad and Optifoam to entire sacral area.Left Heel pressure ulcer DTI dark red/black wound bed ,callus wound edges no drainage Cavalon and Optifaom applied.Right heel skin dry intact Optifoam applied .Heels offloaded with pillows.Report given to RN taking care of the patient.
--- NOTE | 2020-07-21 14:54 | Diagnostic Imaging Report ---
Indication: Chest pain Technique: One view of the chest Comparison: 06/23/2020 Findings: Lungs and pleural spaces are clear. The heart size is normal. There is a left chest pacemaker again demonstrated. Right jugular tunneled dialysis catheter is again demonstrated. Impression: No acute process.
--- NOTE | 2020-07-21 14:58 | NUR ---
P.T Note: P.T evaluation completed. Pt is alert, O x 4 , pleasant and cooperative. Pt. requires MAX A X 1 to turn/roll towards L/R using bed rails. Pt is dependent/max a x 2 to sit at the EOB. Pt is non ambulatory and baseline bed and w/c bound. Family/CG uses beny lift to transfer pt from bed to/w/c/recliner at least 3x/wk per pt claim. Pt is not a candidate for skilled P.T service as pt is already at baseline. Recommend DC to prior living arrangement when medically stable. DC P.T services. Thank you for this referral.
--- NOTE | 2020-07-21 15:21 | NUR ---
CASE MANAGEMENT:INITIAL REVIEW 70 YR OLD FEMALE BIBA FROM HOME CC;GENERAL COMPLAINT SI;RENAL FAILURE. MISSED HD X2 DAYS. HYPERKALEMIA. 98.2 66 15 168/71 97% ON RA H/H 9.2/29.6 K+ 5.3 BUN 65 CR 9.3 CXR ~ NO ACUTE PROCESS IS;DILAUDID IM ONCE KAYEXALATE PO ONCE ADMITTED TO MED SURG 07/20/20 @ 2333 MED SURG STATUS DCP;FROM HOME
[2020-07-21 16:00] VITALS: BP 121/63
--- NOTE | 2020-07-21 17:00 | NUR ---
NURSE NOTES: Patient started getting Hemodialysis;
[2020-07-21] MEDS ORDERED: ELIQUIS2.5 MG ORAL (18:55)
[2020-07-21] MEDS ORDERED: VITAMIN C500 M1 ORAL (18:55)
[2020-07-21] MEDS ORDERED: RENVELA0.8 GM ORAL (18:55)
[2020-07-21] MEDS ORDERED: DOCUSATE SODIU100 MG ORAL (18:55)
[2020-07-21] MEDS ORDERED: NEOSPORIN OINT30 GM TOPIC (18:55)
[2020-07-21] MEDS ORDERED: MAGNESIUM250 M2 PO (18:55)
[2020-07-21] MEDS ORDERED: COENZYME Q10200 MG PO (18:55)
[2020-07-21] MEDS ORDERED: ASPIRIN81 MG ORAL (18:55)
[2020-07-21] MEDS ORDERED: OMEGA 3 FISH O1 EAC1 PO (18:55)
--- NOTE | 2020-07-21 19:20 | NUR ---
HAND-OFF: Report given to VIKAS Pressley. Patient is getting Hemodialysis, stalbe at this time.
--- NOTE | 2020-07-21 19:51 | NUR ---
NURSE NOTES: Received patient asleep in bed, dialysis ongoing, dialysis nurse at bedside. No s/s of acute distress. Bed low and locked.
[2020-07-21 20:00] VITALS: BP 122/68
[2020-07-22] VITALS (7 sets, daily range): BP systolic 105–151; BP diastolic 58–75
[2020-07-22] MEDS: HydrALAZINE 25mg tab ORAL SCH ×2 (05:47→14:02)
[2020-07-22 07:19] LABS: BASOPHILS % (AUTO) 1.5 % (0.0-2.0); EOSINOPHILS % (AUTO) 6.7 % (0.0-3.0); HEMATOCRIT 26.2 % (37.0-47.0); HEMOGLOBIN 8.6 G/DL (12.0-16.0); LYMPHOCYTES % (AUTO) 32.7 % (20.0-45.0); MEAN CORPUSCULAR VOLUME 91 FL (80-99); MONOCYTES % (AUTO) 10.9 % (1.0-10.0); NEUTROPHILS % (AUTO) 48.2 % (45.0-75.0); PLATELET COUNT 127 K/UL (150-450); RED BLOOD COUNT 2.89 M/UL (4.20-5.40); RED CELL DISTRIBUTION WIDTH 13.3 % (11.6-14.8); WHITE BLOOD COUNT 5.6 K/UL (4.8-10.8)
[2020-07-22 07:26] LABS: ALANINE AMINOTRANSFERASE 11 U/L (12-78); ALBUMIN 2.8 G/DL (3.4-5.0); ALBUMIN/GLOBULIN RATIO 0.8 (1.0-2.7); ALKALINE PHOSPHATASE 48 U/L (46-116); ANION GAP 4 mmol/L (5-15); ASPARTATE AMINO TRANSFERASE 17 U/L (15-37); BILIRUBIN,TOTAL 0.3 MG/DL (0.2-1.0); BLOOD UREA NITROGEN 31 mg/dL (7-18); CALCIUM 8.8 MG/DL (8.5-10.1); CARBON DIOXIDE 33 MMOL/L (21-32); CHLORIDE 102 MMOL/L (98-107); CHOLESTEROL 191 MG/DL (< 200); CREATININE 5.7 MG/DL (0.55-1.30); FERRITIN 809 NG/ML (8-388); GAMMA GLUTAMYL TRANSPEPTIDASE 17 U/L (5-85); HDL CHOLESTEROL 66 MG/DL (40-60); PHOSPHORUS 2.4 MG/DL (2.5-4.9); POTASSIUM 4.3 MMOL/L (3.5-5.1); SODIUM 139 MMOL/L (136-145); TRIGLYCERIDES 48 MG/DL (30-150)
--- NOTE | 2020-07-22 07:29 | NUR ---
HAND-OFF: Report given to VIKAS Lara.
--- NOTE | 2020-07-22 07:43 | NUR ---
NURSE NOTES: made rounds, pt is sitting up in bed and eating breakfast; tolerates meals well. breathing is even and unlabored. no acute distress noted. call light is within reach, will follow plan of care.
[2020-07-22 07:45] LABS: % IRON SATURATION 47 % (15-50); IRON 88 ug/dL (50-175); TOTAL IRON BINDING CAPACITY 187 ug/dL (250-450)
[2020-07-22] MEDS: Docusate 100mg cap ORAL SCH ×2 (09:07→17:57)
[2020-07-22] MEDS: Renvela 800mg Pkt ORAL SCH ×3 (09:07→17:58)
[2020-07-22] MEDS: Eliquis 2.5mg tablet ORAL SCH ×2 (09:07→17:58)
--- NOTE | 2020-07-22 10:38 | NUR ---
ELECTRICAL SYSTEMS DRAFTER NOTE S/W PATIENT AT BEDSIDE. PATIENT STATES, "I'M DOING WELL". STATED SHE MISSED HD DUE TO TRANSPORTATION ISSUES. CALL MADE TO PATIENTS DAUGHTER ARMEN HORAN. PER DTR, PATIENT MISSED 2 DAYS OF HD DUE TO TRANSPORTATION ISSUED WITH PATIENTS INSURANCE. CONFIRMED PATIENT RECEIVES HD AT [facility]. CALL MADE TO [facility] [phone], PER CLEM, PATIENT WAS LAST DIALYZED ON 07/16/20. PATIENT ARRIVES VIA GURNEY TRANSPORT. WILL FOLLOW UP WITH CALL THE CAR IN RE TO TRANSPORTATION
--- NOTE | 2020-07-22 12:25 | Nephrology Progress Note ---
Assessment/Plan Problem List: (1) Hyperkalemia (2) ESRD (end stage renal disease) (3) Anemia (4) HTN (hypertension) Assessment ESRD (end stage renal disease), missed few sessions of hemodialysis Volume overload , Hyperkalemia other conditions: -. Diabetes with diabetic nephropathy and neuropathy. -. History of CVA with left weakness. -. History of atrial fibrillation. -. History of pacemaker. Plan July 22: Patient was dialyzed yesterday. Will attempt dialysis tomorrow. geothermal operations manager involved on the case to arrange for outpatient transportation from her residence to dialysis unit. Patient cannot be discharged unless has access to outpatient dialysis unit for her regular 3 times a week outpatient dialysis. Labs reviewed. Epogen subcu ordered. Blood pressure within normal limit. Subjective ROS Limited/Unobtainable: No Constitutional: Reports: malaise Objective Objective Last 24 Hour Vital Signs Date Time Temp Pulse Resp B/P (MAP) Pulse Ox O2 Delivery O2 Flow Rate FiO2 07/22/20 09:00 Nasal Cannula 2.0 07/22/20 08:00 98.1 60 19 129/75 (93) 96 07/22/20 05:47 151/72 07/22/20 04:00 99.0 73 20 151/72 (98) 96 07/22/20 00:00 97.0 103 20 105/58 (74) 96 07/21/20 21:55 Nasal Cannula 2.0 07/21/20 21:47 98.1 07/21/20 21:10 122/68 07/21/20 20:00 98.1 62 18 122/68 (86) 96 07/21/20 16:00 98.1 60 18 121/63 (82) 96 Intake and Output 07/21/20 07/22/20 19:00 07:00 Intake Total 1440 ml 360 ml Output Total 2000 ml Balance 1440 ml -1640 ml Intake Oral 1440 ml Other 360 ml Hemodialysis UF 2000 ml Current Medications Medications (Trade) Dose Ordered Sig/Jesus Route PRN Reason Start Time Stop Time Status Last Admin Dose Admin Acetaminophen (Tylenol) 650 mg Q4H PRN ORAL Mild Pain (Pain Scale 1-3) 07/20/20 23:30 08/19/20 23:29 Acetaminophen/ Hydrocodone Bitart ([place] 5/325) 1 tab Q4H PRN ORAL PAIN 4-10 07/20/20 23:30 07/27/20 23:29 07/21/20 21:17 Apixaban (Eliquis) 2.5 mg BID ORAL 07/22/20 09:00 10/20/20 08:59 07/22/20 09:07 Aspirin (ASA) 81 mg DAILY ORAL 07/21/20 09:00 09/04/20 08:59 07/22/20 09:07 Atorvastatin Calcium (Lipitor) 20 mg BEDTIME ORAL 07/21/20 21:00 10/19/20 20:59 07/21/20 21:11 Docusate Sodium (Colace) 100 mg TWICE A DAY ORAL 07/21/20 09:00 08/20/20 08:59 07/22/20 09:07 Epoetin Jose (Epoetin Jose(ESRD on dialysis)) 10,000 unit SUBQ 07/23/20 21:00 10/21/20 20:59 UNV Folic Acid (Folate) 1 mg DAILY ORAL 07/22/20 09:00 08/21/20 08:59 07/22/20 09:07 Gabapentin (Neurontin) 300 mg DAILY ORAL 07/21/20 09:00 08/20/20 08:59 07/22/20 09:06 Hydralazine HCl (Apresoline) 25 mg EVERY 8 HOURS ORAL 07/20/20 23:30 10/18/20 23:29 07/22/20 05:47 Sevelamer Carbonate (Renvela) 800 mg THREE TIMES A DAY ORAL 07/21/20 09:00 10/19/20 08:59 07/22/20 09:07 Laboratory Tests 07/21/20 19:00: Hepatitis B Surface Antigen [Pending] 07/22/20 05:45: White Blood Count 5.6, Red Blood Count 2.89L, Hemoglobin 8.6L, Hematocrit 26.2L, Mean Corpuscular Volume 91, Mean Corpuscular Hemoglobin 30.0, Mean Corpuscular Hemoglobin Concent 33.0, Red Cell Distribution Width 13.3, Platelet Count 127L, Mean Platelet Volume 7.3, Neutrophils (%) (Auto) 48.2, Lymphocytes (%) (Auto) 32.7, Monocytes (%) (Auto) 10.9H, Eosinophils (%) (Auto) 6.7H, Basophils (%) (Auto) 1.5, Sodium Level 139, Potassium Level 4.3, Chloride Level 102, Carbon Dioxide Level 33H, Anion Gap 4L, Blood Urea Nitrogen 31H, Creatinine 5.7H, Estimat Glomerular Filtration Rate 8.8, Glucose Level 99, Hemoglobin A1c 6.0, Uric Acid 3.3, Calcium Level 8.8, Phosphorus Level 2.4L, Magnesium Level 2.7H, Iron Level 88, Total Iron Binding Capacity 187L, Percent Iron Saturation 47, Unsaturated Iron Binding 99L, Ferritin 809H, Total Bilirubin 0.3, Gamma Glutamyl Transpeptidase 17, Aspartate Amino Transf (AST/SGOT) 17, Alanine Aminotransferase (ALT/SGPT) 11L, Alkaline Phosphatase 48, C-Reactive Protein, Quantitative 1.5H, Pro-B-Type Natriuretic Peptide 03805C, Total Protein 6.4, Albumin 2.8L, Globulin 3.6, Albumin/Globulin Ratio 0.8L, Triglycerides Level 48, Cholesterol Level 191, LDL Cholesterol 99, HDL Cholesterol 66H, Cholesterol/HDL Ratio 2.9L, Vitamin B12 Level 1601H, Folate 6.9L, Thyroid Stimulating Hormone (TSH) 2.528 Height (Feet): 5 Height (Inches): 4.00 Weight (Pounds): 179 General Appearance: no apparent distress Respiratory/Chest: decreased breath sounds Abdomen: soft Manas Stephenson MD Jul 22, 2020 12:25
--- NOTE | 2020-07-22 15:05 | General Progress Note ---
Subjective Allergies: Coded Allergies: PENICILLINS (Verified Allergy, Unknown, 04/23/20) Tolerated Cefepime 04/23/20 Objective Last 24 Hour Vital Signs Date Time Temp Pulse Resp B/P (MAP) Pulse Ox O2 Delivery O2 Flow Rate FiO2 07/22/20 14:02 119/64 07/22/20 14:00 119/64 (82) 07/22/20 12:00 97.9 61 18 112/66 (81) 95 07/22/20 09:00 Nasal Cannula 2.0 07/22/20 08:00 98.1 60 19 129/75 (93) 96 07/22/20 05:47 151/72 07/22/20 04:00 99.0 73 20 151/72 (98) 96 07/22/20 00:00 97.0 103 20 105/58 (74) 96 07/21/20 21:55 Nasal Cannula 2.0 07/21/20 21:47 98.1 07/21/20 21:10 122/68 07/21/20 20:00 98.1 62 18 122/68 (86) 96 07/21/20 16:00 98.1 60 18 121/63 (82) 96 Intake and Output 07/21/20 07/22/20 19:00 07:00 Intake Total 1440 ml 360 ml Output Total 2000 ml Balance 1440 ml -1640 ml Intake Oral 1440 ml Other 360 ml Hemodialysis UF 2000 ml Laboratory Tests 07/21/20 19:00: Hepatitis B Surface Antigen [Pending] 07/22/20 05:45: White Blood Count 5.6, Red Blood Count 2.89L, Hemoglobin 8.6L, Hematocrit 26.2L, Mean Corpuscular Volume 91, Mean Corpuscular Hemoglobin 30.0, Mean Corpuscular Hemoglobin Concent 33.0, Red Cell Distribution Width 13.3, Platelet Count 127L, Mean Platelet Volume 7.3, Neutrophils (%) (Auto) 48.2, Lymphocytes (%) (Auto) 32.7, Monocytes (%) (Auto) 10.9H, Eosinophils (%) (Auto) 6.7H, Basophils (%) (Auto) 1.5, Sodium Level 139, Potassium Level 4.3, Chloride Level 102, Carbon Dioxide Level 33H, Anion Gap 4L, Blood Urea Nitrogen 31H, Creatinine 5.7H, Estimat Glomerular Filtration Rate 8.8, Glucose Level 99, Hemoglobin A1c 6.0, Uric Acid 3.3, Calcium Level 8.8, Phosphorus Level 2.4L, Magnesium Level 2.7H, Iron Level 88, Total Iron Binding Capacity 187L, Percent Iron Saturation 47, Unsaturated Iron Binding 99L, Ferritin 809H, Total Bilirubin 0.3, Gamma Glutamyl Transpeptidase 17, Aspartate Amino Transf (AST/SGOT) 17, Alanine Aminotransferase (ALT/SGPT) 11L, Alkaline Phosphatase 48, C-Reactive Protein, Quantitative 1.5H, Pro-B-Type Natriuretic Peptide 39712S, Total Protein 6.4, Albumin 2.8L, Globulin 3.6, Albumin/Globulin Ratio 0.8L, Triglycerides Level 48, Cholesterol Level 191, LDL Cholesterol 99, HDL Cholesterol 66H, Cholesterol/HDL Ratio 2.9L, Vitamin B12 Level 1601H, Folate 6.9L, Thyroid Stimulating Hormone (TSH) 2.528 Height (Feet): 5 Height (Inches): 4.00 Weight (Pounds): 179 Assessment/Plan Assessment/Plan: S: I am ok O: seems comfortable, denies chest pain sob PHYSICAL EXAMINATION: HEAD AND NECK: Atraumatic and normocephalic. CHEST: Clear to auscultation. HEART: S1, S2. Regular rate and rhythm. Bradycardic. MUSCULOSKELETAL: No gross lateralized motor deficit, paraparesis. stage 3 decubitus wound in calcaneal region.NEUROLOGIC: The patient is awake and alert x 2. LABORATORY AND DIAGNOSTIC DATA: Labs dated 07/22/20 reviewed ASSESSMENT: 1. hyperKalemia and Missed HD sessions in a patient who refuses Kayexalate 2. Decubitus wound, enlarging and infected. 3. End-stage renal disease, on temporary PermCath hemodialysis access. 2. Paroxysmal atrial fibrillation, rate is stable. 3. Diabetes type 2. 4. Hypertension. 5. Hyperlipidemia. 6. CVA-history. 7. Dementia. 8. Gastrointestinal and deep vein thrombosis prophylaxes. 9. Pain management Plan: HD- per Nephrology hyperKalemia and Missed HD sessions in a patient who refuses Kayexalate Given the logistic problems for arranging HD for this patient and being high risk for recurrence of hyperkalemia, will monitor K level for additional day Danie Banegas MD Jul 22, 2020 15:05
--- NOTE | 2020-07-22 17:03 | NUR ---
GRADES 1 THROUGH 6 TEACHER NOTE S/W PATIENTS DAUGHTER WHO REQUESTS FOR PATIENT TO BE TRANSPORTED HOME BY AMBULANCE VIA GURNEY. PER PATIENTS DAUGHTER, SHE WILL PAY FOR ANY CHARGES INCURRED FOR GURNEY TRANSPORT. [facility]SPORTATION SCHEDULED WITH [facility] WITH ETA @ [id number]
--- NOTE | 2020-07-22 19:10 | NUR ---
HAND-OFF: Report given to Radha.
--- NOTE | 2020-07-22 21:27 | NUR ---
NURSE NOTES: Patient discharged via [facility]. Patient was transported to [facility] via [facility]. VSS. ANO x3. No signs of distress or SOB. Patient clean and dry. IV access removed along with ID band. WCP taken previous shift by AM nurse. Patient left the hospital by 2129.
--- NOTE | 2020-07-23 17:00 | Cardiology Report ---
APPROVED REPORT EKG Measurement Heart [id number] <Conclusion> Sinus rhythm Nonspecific ST and T wave abnormality Abnormal ECG
[2020-07-23] MEDS ORDERED: Epoetin Alfa-EPBX(ESRD on dialysis)10,000 unit/ml vial SUBQ SCH (21:00)
--- NOTE | 2020-07-26 09:42 | Discharge Summary ---
Discharge Summary Discharge Summary _ DATE OF ADMISSION: 07/20/2020 DATE OF DISCHARGE: 07/22/2020 DISCHARGED BY: Dr. Banegas REASON FOR ADMISSION: 70 years old female with past medical history of hypertension, pacemaker, COPD/asthma, CVA, diabetes mellitus, end-stage renal disease, on hemodialysis, missed 2 dialysis sessions last week due to insurance issues with transportation , was sent for evaluation as advised by her structural worker. She denied chest pain She denied fever and chills. She denied abdominal pain, nausea and vomiting. Upon evaluation no leukocytosis, hemoglobin 9.2, hematocrit 29.6, platelet count 147. Potassium 5.3. BUN 65, creatinine 9.3. Magnesium 3.3. Chest x-ray revealed left chest pacemaker. Right jugular tunneled dialysis catheter in place. Lungs and pleural spaces were clear. In emergency department patient received Kayexalate and admitted to the hospital for further management. CONSULTANTS: structural worker Dr. Stephenson HOSPITAL COURSE: Patient admitted and received hemodialysis the next day with low potassium bath. Ultrafiltration was maximized as tolerated during hemodialysis. Home medication continued. Blood pressure and blood sugar were kept in check. Supplemental oxygen provided initially to keep pulse oximetry above 92%. Patient was on oxygen via nasal cannula. Volumes, renal parameters and electrolytes were closely monitored. Prior to discharge BUN from initial 65 down to 31 and 318 from 9.3 down to 5.7 Hemoglobin and hematocrit were closely monitored his goal to keep hemoglobin above 7. Prior to discharge hemoglobin 8.6, hematocrit 26.2. Epogen was given during dialysis Anticoagulation for thromboembolic prophylaxis with Eliquis continued. GI prophylaxis provided. Hemoglobin A1c 6.0 at goal. Diabetic diet and diabetic teaching provided. Supportive care provided. Patient clinically stabilized and was ready for discharge. FINAL DIAGNOSES: End-stage renal disease on hemodialysis, missed few session of hemodialysis Volume overload Hyperkalemia Diabetes mellitus with diabetic nephropathy and neuropathy History of CVA with left side weakness Pacemaker Paroxysmal atrial fibrillation Hypertension Hyperlipidemia History of CVA Dementia Anemia of chronic disease DISCHARGE MEDICATIONS: See Medication Reconciliation list. DISCHARGE INSTRUCTIONS: Patient was discharged home. Follow up with the primary care provider in 1 week. Follow-up with outpatient hemodialysis as scheduled. I have been assigned to dictate discharge summary for this account. I was not involved in the patient's management. Cary Jarvis NP Jul 26, 2020 09:42
== END 2020-07-22 21:30 | disposition home or self-care (01) | DRG 640 ==
LOC: EDBD 19:48 → EMR 20:31 → 4E 20:37 → EDBEDREQ 21:04 → 4E 22:20
DX: E87.5 Hyperkalemia (principal); L89.503 Pressure ulcer of unspecified ankle, stage 3; N18.6 End stage renal disease; I12.0 Hypertensive chronic kidney disease with stage 5 chronic kidney disease or end stage renal disease; I69.354 Hemiplegia and hemiparesis following cerebral infarction affecting left non-dominant side; F03.90 Unspecified dementia, unspecified severity, without behavioral disturbance, psychotic disturbance, mood disturbance, and anxiety; I48.0 Paroxysmal atrial fibrillation; L89.159 Pressure ulcer of sacral region, unspecified stage; Z88.0 Allergy status to penicillin; E11.22 Type 2 diabetes mellitus with diabetic chronic kidney disease; E87.79 Other fluid overload; Z99.2 Dependence on renal dialysis; Z95.0 Presence of cardiac pacemaker; E11.40 Type 2 diabetes mellitus with diabetic neuropathy, unspecified; Z91.15 Patient's noncompliance with renal dialysis; E78.5 Hyperlipidemia, unspecified; D63.8 Anemia in other chronic diseases classified elsewhere
CPT/HCPCS: 36415; 71045; 80053; 80061; 82607; 82728; 82746; 82977; 83036; 83540; 83550; 83735; 83880; 84100; 84443; 84550; 85025; 85610; 85730; 86140; 86706; 87081; 93005; 96372; 99285

== ENCOUNTER 2020-08-27 15:11 | Inpatient (IN) | payer MEDICARE, OTHER ==
[~2020-08-27] VITALS: Ht 165.1 cm; Wt 104.8 kg
[~2020-08-27 15:11] MED LIST changes: +ASPIRIN81 MG ORAL; +COENZYME Q10200 MG PO; +MAGNESIUM250 M2 PO; +NEOSPORIN OINT30 GM TOPIC; +OMEGA 3 FISH O1 EAC1 PO; +VITAMIN C500 M1 ORAL
--- NOTE | 2020-08-27 15:17 | Emergency Room Report ---
History of Present Illness Present Illness HPI 70-year-old female with history of end-stage renal disease on dialysis Sunday here with generalized weakness. The patient missed her dialysis appointment today. She says that she went to dialysis and the checked basic labs and her potassium level was "low" prompting her to come to the emergency department. Patient has no complaints at this time. Denies headache, vision changes, fevers, chills, chest pain, palpitation, shortness of breath, back pain, abdominal pain, nausea, vomiting, diarrhea. 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 Pacemaker Paroxysmal atrial fibrillation Hypertension Hyperlipidemia History of CVA Dementia Anemia of chronic disease Allergies: Coded Allergies: PENICILLINS (Verified Allergy, Unknown, 04/23/20) Tolerated Cefepime 04/23/20 COVID-19 Screening Contact w/high risk pt: No Recent Travel to affected area: No Experienced COVID-19 symptoms?: No COVID-19 symptoms experienced: Cough Nursing Documentation-PMH Hx Cardiac Problems: Yes Hx Hypertension: Yes Hx Pacemaker: Yes Hx Asthma: Yes Hx COPD: Yes Hx Diabetes: Yes Hx Cancer: No Hx Gastrointestinal Problems: No Hx Dialysis: Yes - ESRD ON HD (MWF) Hx Neurological Problems: No Hx Cerebrovascular Accident: Yes - 1974 Hx Weakness: Yes Review of Systems All Other Systems: negative except mentioned in HPI Physical Exam Sp02 EP Interpretation: reviewed, normal General Appearance: no apparent distress, alert, non-toxic Head: normocephalic, atraumatic Eyes: bilateral eye normal inspection, bilateral eye PERRL ENT: hearing grossly normal, normal pharynx, no angioedema, normal voice Neck: full range of motion, supple/symm/no masses Respiratory: chest non-tender, normal breath sounds, speaking full sentences, other - Bilateral rales at the lung bases. Permacath in the right upper chest without any surrounding erythema or induration. Pacemaker palpable in the left upper chest without any surrounding erythema or induration Cardiovascular #1: regular rate, rhythm, no edema Cardiovascular #2: 2+ carotid (R), 2+ carotid (L), 2+ radial (R), 2+ radial (L), 2+ dorsalis pedis (R), 2+ dorsalis pedis (L) Gastrointestinal: normal bowel sounds, non tender, soft, non-distended, no guarding, no rebound Rectal: deferred Genitourinary: normal inspection, no CVA tenderness Musculoskeletal: back normal, normal range of motion, gait/station normal, non- tender Neurologic: alert, motor strength/tone normal, sensory intact, responsive, speech normal Psychiatric: judgement/insight normal, memory normal, mood/affect normal, no suicidal/homicidal ideation Lymphatic: no adenopathy Procedures Central Line Central Line : Consent: Emergent Central Line Lumen: triple Maximal Sterile Barrier Tech: yes cap, yes mask, yes sterile gown, yes sterile gloves, yes large sterile sheet, yes hand hygiene, yes chlorhexidine prep No Max Barrier Tech Because: emergency insertion Central Line Postion: femoral (R) Anesthesia: Lidocaine US Guided Line?: Yes Vessel visualized with U/S: Right Femoral Vein Ultrasound Findings: Collapsible Vessel, Vessel Patent, Color flow present, Visualize vessel puncture Complications: none Central Line Post Position: sutured, good blood return Attempts: One Patient Tolerated: Well Complications: None Medical Decision Making Diagnostic Impression: Primary Impression: ESRD (end stage renal disease) Additional Impressions: Anemia Episode of generalized weakness ER Course Chest x-ray: Cardiomegaly and mild pulmonary vascular congestion/fluid overload Total critical care time: Approximately 30 minutes Due to a high probability of clinically significant, life threatening deterioration, the patient required the highest level of preparedness to intervene emergently and I personally spent this critical care time directly and personally managing the patient. This critical care time included obtaining a history, examining the patient, pulse oximetry, ordering and reviewing studies, ordering treatments, evaluating response to treatment and updating management plan as needed, frequent reassessment and discussion with other providers as we ll as arranging for ultimate disposition. This critical to care time was performed to assess and manage the high probability of life-threatening deterioration that could result in multiorgan failure. This critical care time is separate from the separately billable procedures and treating other patients. EKG: Atrial paced rhythm with prolonged AV conduction. Normal axis., no isch emia, intervals WNL. No ectopy Rhythm strip: patient monitored for arrhythmias - no malignant dysrhythmias, runs of PVCs, nor pauses noted 70-year-old female here with generalized weakness. Patient has history of end- stage renal disease on dialysis Sunday. She missed dialysis today. She had normal vital signs on room air here in the emergency department and exhibited no evidence of shortness of breath. Chest x-ray however did reveal pulmonary vascular congestion and fluid overload. Due to very poor IV access the right femoral vein triple-lumen central line was placed as described above. Patient was found to be hyperkalemic with a potassium of 6.0. Showed no hyperkalemic changes on her EKG. She was given calcium, insulin, dextrose, L asix in the emergency department. She remained hemodynamically stable and neurovascular intact with no complaints. Admitted to telemetry. Currently waiting the results of repeat BMP. Signed out to oncoming physician Dr. Herrmann. Wil Elliott M.D. Aug 27, 2020 15:17
[2020-08-27 15:23] VITALS: BP 118/74
--- NOTE | 2020-08-27 15:23 | NUR ---
ED Nurse Note: Pt ANDREA WHITLOCK from the dialysis Center c/o generalized weakness. Per pt, her potassium level was low and was told to go to the ER. Pt missed her dialysis today. Dialysis days MWF. Pt has 2 active shunt on left upper arm and right upper arm, permacath on right upper chest. Denies CP. No SOB, on room air. Pt placed on manager sales. ERMD at bedside.
--- NOTE | 2020-08-27 15:32 | NUR ---
ED Nurse Note: Xray at bedside.
--- NOTE | 2020-08-27 15:58 | Diagnostic Imaging Report ---
Indication: Cough Technique: XRAY Chest 1v Comparison: 07/20/2020 Findings: Heart is enlarged but stable in size compared to the prior exam. Left-sided dual-lead pacer is again noted. Right-sided permacath and right-sided likely venous stents noted. There is pulmonary vascular congestion. No focal consolidation. No pleural effusion, pneumothorax. No acute osseous abnormality. Impression: Cardiomegaly and mild pulmonary vascular congestion/fluid overload.
[2020-08-27] MEDS ORDERED: Lidocaine 1% Plain 30 ml INJ ONE (17:15)
--- NOTE | 2020-08-27 18:00 | NUR ---
ED Nurse Note: ERMd at bedside for Central line insertion.
[2020-08-27] MEDS ORDERED: CALCIUM ACETAT667 M1 PO (18:08)
[2020-08-27] MEDS ORDERED: ADALAT10 MG ORAL (18:08)
[2020-08-27] MEDS ORDERED: PHENERGAN25 M1 ORAL (18:08)
[2020-08-27] MEDS ORDERED: CATAPRES0.1 MG ORAL (18:08)
[2020-08-27] MEDS ORDERED: PANTOPRAZOLE SO40 MG ORAL (18:08)
[2020-08-27] MEDS ORDERED: ACETAMINOPHEN325 M1 ORAL (18:08)
[2020-08-27] MEDS ORDERED: METOPROLOL SUC100 MG ORAL (18:08)
--- NOTE | 2020-08-27 18:20 | NUR ---
ED Nurse Note: Blood sent to lab.
[2020-08-27 18:38] LABS: HEMOGLOBIN 7.6 G/DL (12.0-16.0); MEAN CORPUSCULAR VOLUME 98 FL (80-99); PLATELET COUNT 242 K/UL (150-450); RED BLOOD COUNT 2.55 M/UL (4.20-5.40); RED CELL DISTRIBUTION WIDTH 15.9 % (11.6-14.8); WHITE BLOOD COUNT 7.9 K/UL (4.8-10.8)
[2020-08-27 19:01] LABS: ALANINE AMINOTRANSFERASE < 6 U/L (12-78); ALBUMIN 3.1 G/DL (3.4-5.0); ALBUMIN/GLOBULIN RATIO 0.9 (1.0-2.7); ALKALINE PHOSPHATASE 56 U/L (46-116); ASPARTATE AMINO TRANSFERASE 11 U/L (15-37); BILIRUBIN,TOTAL 0.4 MG/DL (0.2-1.0); CALCIUM 9.3 MG/DL (8.5-10.1); CARBON DIOXIDE 27 MMOL/L (21-32); CHLORIDE 98 MMOL/L (98-107); SODIUM 137 MMOL/L (136-145)
--- NOTE | 2020-08-27 19:10 | NUR ---
HAND-OFF: Report given to Ketty BEAN.
--- NOTE | 2020-08-27 19:11 | NUR ---
ED Nurse Note: pt laying in bed with eyes closed, arousable when name is called. Pt is AAOx4, c/o weakness. Vital signs are stable.
--- NOTE | 2020-08-27 19:40 | NUR ---
ED Nurse Note: CRE, VRE, and MRSA sent to lab.
[2020-08-27 19:52] LABS: BLOOD UREA NITROGEN 49 mg/dL (7-18); CREATININE 7.7 MG/DL (0.55-1.30)
[2020-08-27 19:53] LABS: ANION GAP 12 mmol/L (5-15)
[2020-08-27] MEDS ORDERED: Calcium Gluconate 1gm/10ml vial IVP ONE (20:00)
[2020-08-27] MEDS ORDERED: Insulin Human Regular 100units/ml 3ml IV ONE (20:00)
--- NOTE | 2020-08-27 20:15 | NUR ---
ED Nurse Note: blood collected and sent to lab
[2020-08-27 20:30] LABS: CALCIUM 9.4 MG/DL (8.5-10.1); CREATININE 7.6 MG/DL (0.55-1.30)
--- NOTE | 2020-08-27 21:25 | NUR ---
ED Nurse Note: blood collected after meds, BMP resent to lab
[2020-08-27 21:45] LABS: CALCIUM 9.5 MG/DL (8.5-10.1); CREATININE 7.6 MG/DL (0.55-1.30); POTASSIUM 5.5 MMOL/L (3.5-5.1)
--- NOTE | 2020-08-27 22:20 | NUR ---
ED Nurse Note: gave report to Belen BEAN
--- NOTE | 2020-08-27 22:21 | NUR ---
NURSE NOTES: RECEIVED REPORT FROM VIKAS RAHMAN. INFORMED HIM OF SWAB ORDERS. AWAITING ARRIVAL OF PATIENT.
--- NOTE | 2020-08-27 22:35 | NUR ---
ED Nurse Note: pt transfered to Tele via gurney accompanied by staff technologist, pt instable condition. Admission packet and belongings taken with pt.
--- NOTE | 2020-08-27 22:45 | NUR ---
NURSE NOTES: PATIENT TRANSFERRED FROM ED TO [facility] PER MD ORDER; ADMITTED UNDER CARE OF DR. KEITA WITH ADMITTING DIAGNOSIS OF WEAKNESS; TRANSFERRED FROM [facility] TO [facility] WITHOUT INCIDENT. AAOX2-3, VERBALLY RESPONSIVE AND ABLE TO MAKE NEEDS KNOWN. NO COMPLAINTS OF PAIN OR DISCOMFORT AT THIS TIME. BREATHING EVEN AND UNLABORED ON ROOM AIR, NO S/SX OF DISTRESS. PATIENT NOTED TO HAVE MARIA R AV SHUNT- BRUIT AND THRILL PRESENT, PER PATIENT NOT IN USE; PATIENT NOTED TO HAVE MAUREEN AV SHUNT WITH DRESSING APPLIED, BRUIT AND THRILL PRESENT; ADDITIONALLY, NOTED TO HAVE RIGHT UPPER CHEST PERMACATH. PATIENT HAS LEFT UPPER CHEST PACEMAKER. PATIENT NOTED TO HAVE RIGHT FEMORAL TLC WITH SOILED DRESSING- DRESSING CHANGED AT TIME OF ADMISSION. SKIN ASSESSMENT DONE. CHANGED INTO HOSPITAL GOWN, GAS SCRUBBER OPERATOR PLACED, BELONGINGS VERIFIED WITH PATIENT- HAS U/L DENTURES, AND PRESCRIPTION GLASSES. PUREWICK APPLIED, DRAINING WELL TO WALL SUCTION. V/S AT TIME OF ADMISSION: BP 119/44 (RIGHT LEG) SAO2 100% ON ROOM AIR, HR 58, TEMP 98.6F (AXILLARY), RR 14. ADMISSION ORDERS PREVIOUSLY RECEIVED FROM DR. KEITA. FALL PRECAUTIONS IN PLACE. CONTACT ISOLATION MAINTAINED. BED LOCKED AND IN LOWEST POSITON, SIDERAILS UP X 3. CALL LIGHT WITHIN REACH, WILL CONTINUE TO MONITOR PER POC.
[2020-08-27 23:00] VITALS: BP 119/44
[2020-08-27] MEDS ORDERED: HydrALAZINE 25mg tab ORAL PRN (23:30)
[2020-08-27] MEDS ORDERED: HYDROcodone/Acetamin 5/325 tab ORAL PRN (23:30)
[2020-08-28] VITALS: BP 121/48
[2020-08-28 04:00] VITALS: BP 101/44
--- NOTE | 2020-08-28 04:14 | NUR ---
NURSE NOTES: CALLED ELIZABETH, S/W JOANNE TO SCHEDULE PATIENT FOR DIALYSIS TODAY, 08/28- PER JOANNE, WILL LET ON-CALL NURSE KNOW.
--- NOTE | 2020-08-28 05:01 | NUR ---
NURSE NOTES: BLOOD DRAWN AND SENT TO LAB.
[2020-08-28 06:07] LABS: HEMATOCRIT 24.5 % (37.0-47.0); HEMOGLOBIN 7.3 G/DL (12.0-16.0); MEAN CORPUSCULAR VOLUME 103 FL (80-99); PLATELET COUNT 221 K/UL (150-450); RED BLOOD COUNT 2.38 M/UL (4.20-5.40); RED CELL DISTRIBUTION WIDTH 15.6 % (11.6-14.8)
--- NOTE | 2020-08-28 07:00 | NUR ---
NURSE HAND-OFF REPORT: Important Events on Shift: NEW ADMISSION Patient Status: STABLE Diet: RENAL, SOFT EASY CHEW Pending Orders: FOR HD TODAY, 2 UNITS PRBCS- CONSENT NEEDS TO BE OBTAINED Pending Results/Labs: AM LABS Pending MD notification: N/A Latest Vital Signs: Temperature 96.6 , Pulse 60 , B/P 101 /44 , Respiratory Rate 17 , O2 SAT 98 , Room Air, O2 Flow Rate . Vital Sign Comment: STABLE EKG Rhythm: SR, A-PACED, 1ST AVB Rhythm change?: N MD Notified?: - MD Response: Latest Srivastava Fall Score: 50 Fall Risk: High Risk Safety Measures: Call light Within Reach, Bed Alarm Zone 1, Side Rails Side Rails x3, Bed position Low and Locked. Fall Precautions: Yellow Socks Door Sign Patient Fall Education Report given to VIKAS LINDA.
--- NOTE | 2020-08-28 07:27 | NUR ---
NURSE NOTES: Pt received from Winter BEAN. pt in bed resting, no complaint of pain or sob. bed low and locked. call light within reach. Endorsed that pt needs consent from daughter for HD and blood transfusion. Will get consent from daughter shortly.
[2020-08-28 07:58] LABS: ALANINE AMINOTRANSFERASE 9 U/L (12-78); ALBUMIN/GLOBULIN RATIO 0.9 (1.0-2.7); ALKALINE PHOSPHATASE 52 U/L (46-116); ANION GAP 9 mmol/L (5-15); ASPARTATE AMINO TRANSFERASE 12 U/L (15-37); BILIRUBIN,TOTAL 0.4 MG/DL (0.2-1.0); BLOOD UREA NITROGEN 49 mg/dL (7-18); CALCIUM 9.3 MG/DL (8.5-10.1); CARBON DIOXIDE 27 MMOL/L (21-32); CHLORIDE 100 MMOL/L (98-107); CHOLESTEROL 195 MG/DL (< 200); CREATININE 7.8 MG/DL (0.55-1.30); FERRITIN 796 NG/ML (8-388); GAMMA GLUTAMYL TRANSPEPTIDASE 16 U/L (5-85); HDL CHOLESTEROL 63 MG/DL (40-60); PHOSPHORUS 3.5 MG/DL (2.5-4.9); POTASSIUM 5.6 MMOL/L (3.5-5.1); SODIUM 136 MMOL/L (136-145); TRIGLYCERIDES 47 MG/DL (30-150)
[2020-08-28 08:00] VITALS: BP 135/63
[2020-08-28 08:59] LABS: % IRON SATURATION 27 % (15-50); IRON 55 ug/dL (50-175); TOTAL IRON BINDING CAPACITY 204 ug/dL (250-450)
--- NOTE | 2020-08-28 09:57 | Consultation ---
Consult Note Consult Note Patient is 70-year-old female and is under my care for her dialysis related management. The patient has not been showing up to dialysis unit on a regular basis due to transportation issues. Last dialysis patient had blood drawn in outpatient dialysis unit and her serum potassium was 7 and was anemic. Patient's daughter was contacted and the patient was summoned to come to emergency room for evaluation Emergency room note: 70-year-old female with history of end-stage renal disease on dialysis Sunday here with generalized weakness. The patient missed her dialysis appointment today. She says that she went to dialysis and the checked basic labs and her potassium level was "low" prompting her to come to the emergency department. Patient has no complaints at this time. Denies headache, vision changes, fevers, chills, chest pain, palpitation, shortness of breath, back pain, abdominal pain, nausea, vomiting, diarrhea. 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 Pacemaker Paroxysmal atrial fibrillation Hypertension Hyperlipidemia History of CVA Dementia Anemia of chronic disease Allergies: Coded Allergies: PENICILLINS (Verified Allergy, Unknown, 04/23/20) Tolerated Cefepime 04/23/20 COVID-19 Screening Contact w/high risk pt: No Recent Travel to affected area: No Experienced COVID-19 symptoms?: No COVID-19 symptoms experienced: Cough Nursing Documentation-PMH Hx Cardiac Problems: Yes Hx Hypertension: Yes Hx Pacemaker: Yes Hx Asthma: Yes Hx COPD: Yes Hx Diabetes: Yes Hx Gastrointestinal Problems: No Hx Dialysis: Yes - ESRD ON HD (MWF) Hx Cerebrovascular Accident: Yes - 1974 Hx Weakness: Yes Assessment/Plan End-stage renal disease on hemodialysis Sunday Patient has been missing dialysis frequently Patient presented with hyperkalemia and anemia other conditions: -. Diabetes with diabetic nephropathy and neuropathy. -. History of CVA with left weakness. -. History of atrial fibrillation. -. History of pacemaker. Plan: Hemodialysis Anemia work-up, transfusion Adjust electrolytes and chemistries Adjust blood pressure and blood sugar Per orders Manas Stephenson MD Aug 28, 2020 09:57
--- NOTE | 2020-08-28 10:53 | History & Physical ---
History and Physical History & Physicial HISTORY OF PRESENT ILLNESS: The patient is a pleasant 70-year-old female with a history of end-stage renal disease, on hemodialysis. The patient has been transferred from her home as she has missed several HD sessions. Dr Stephenson called me in the office and reported about the abnormal lab result. Today , the patient denies any chest pain , just diffuse pain and aches. No nausea. No vomitus. No diarrhea. No constipation. PAST MEDICAL HISTORY: Diabetes, CVA, paraparesis, and end-stage renal disease. decubitus wound ALLERGIES: Penicillin. PSH: Right permcath insertion and extraction followed by new line replacement . MEDICATIONS: Current hospital medications including, but not limited to lisinopril, hydralazine, Eliquis, and amiodarone. SOCIAL HISTORY: The patient has a daughter who is involved in the care, is residing in her home with her daughter. [facility]. No prior history of illicit drug abuse, smoking, or alcohol abuse. PHYSICAL EXAMINATION: BP: 140/85, RR: 13, temperature 98.2, pulse oximetry 98% on room air, and pulse rate 60 to 65. HEAD AND NECK: Atraumatic and normocephalic. CHEST: Clear to auscultation. HEART: S1, S2. Regular rate and rhythm. Bradycardic. MUSCULOSKELETAL: No gross lateralized motor deficit, paraparesis. stage 3 decubitus wound in calcaneal region.NEUROLOGIC: The patient is awake and alert x 2. LABORATORY AND DIAGNOSTIC DATA: Labs dated 08/27/20 reviewed ASSESSMENT: 1. hyperKalemia and Missed HD sessions 2. Decubitus wound, enlarging and infected. 3. End-stage renal disease, on temporary PermCath hemodialysis access. 2. Paroxysmal atrial fibrillation, rate is stable. 3. Diabetes type 2. 4. Hypertension. 5. Hyperlipidemia. 6. CVA-history. 7. Dementia. 8. Gastrointestinal and deep vein thrombosis prophylaxes. 9. Pain management Plan: HD- per Nephrology Nephrology , Dr Stephenson consulted. Agree with Tele floor admission Critiacal director critical care, Cardiology are notified comment: Time of this note does not reflect actual of the encounter on Aug 27, 2020 Danie Banegas MD Aug 28, 2020 10:53
--- NOTE | 2020-08-28 10:55 | General Progress Note ---
Subjective Allergies: Coded Allergies: PENICILLINS (Verified Allergy, Unknown, 04/23/20) Tolerated Cefepime 04/23/20 Objective Last 24 Hour Vital Signs Date Time Temp Pulse Resp B/P (MAP) Pulse Ox O2 Delivery O2 Flow Rate FiO2 08/28/20 08:00 97.9 59 20 135/63 (87) 94 08/28/20 08:00 60 08/28/20 04:00 60 08/28/20 04:00 96.6 60 17 101/44 (63) 98 08/28/20 00:00 60 08/28/20 00:00 98.6 61 16 121/48 (72) 100 08/27/20 23:50 Room Air 08/27/20 23:00 60 08/27/20 23:00 98.6 58 14 119/44 (69) 100 08/27/20 22:35 98.8 64 18 142/81 100 Room Air 08/27/20 15:23 69 18 Room Air 08/27/20 15:23 98.1 69 18 118/74 97 Room Air 08/27/20 15:19 98.1 69 18 118/74 (89) 97 Room Air Intake and Output 08/27/20 08/28/20 19:00 07:00 Intake Total 360 ml Balance 360 ml Intake Oral 360 ml Laboratory Tests 08/27/20 18:20: White Blood Count 7.9, Red Blood Count 2.55L, Hemoglobin 7.6L, Hematocrit 25.0L, Mean Corpuscular Volume 98, Mean Corpuscular Hemoglobin 29.6, Mean Corpuscular Hemoglobin Concent 30.2L, Red Cell Distribution Width 15.9H, Platelet Count 242, Mean Platelet Volume 7.2, Neutrophils (%) (Auto) , Lymphocytes (%) (Auto) , Monocytes (%) (Auto) , Eosinophils (%) (Auto) , Basophils (%) (Auto) , Differential Total Cells Counted 100, Neutrophils % (Manual) 65, Lymphocytes % (Manual) 24, Monocytes % (Manual) 4, Eosinophils % (Manual) 7H, Basophils % (Manual) 0, Band Neutrophils 0, Platelet Estimate Adequate, Platelet Morphology Normal, Hypochromasia 1+, Poikilocytosis , Anisocytosis 1+, Macrocytosis 1+, Sodium Level 137, Potassium Level 6.0*H, Chloride Level 98, Carbon Dioxide Level 27, Anion Gap 12, Blood Urea Nitrogen 49H, Creatinine 7.7H, Estimat Glomerular Filtration Rate 6.3, Glucose Level 93, Calcium Level 9.3, Total Bilirubin 0.4, Aspartate Amino Transf (AST/SGOT) 11L, Alanine Aminotransferase (ALT/SGPT) < 6L, Alkaline Phosphatase 56, Troponin I 0.032, Total Protein 6.7, Albumin 3.1L, Globulin 3.6, Albumin/Globulin Ratio 0.9L 08/27/20 20:10: Sodium Level 138, Potassium Level 6.0*H, Chloride Level 100, Carbon Dioxide Level 30, Anion Gap 9, Blood Urea Nitrogen 50H, Creatinine 7.6H, Estimat Glomerular Filtration Rate 6.4, Glucose Level 90, Calcium Level 9.4 08/27/20 21:20: Sodium Level 138, Potassium Level 5.5H, Chloride Level 99, Carbon Dioxide Level 31, Anion Gap 9, Blood Urea Nitrogen 49H, Creatinine 7.6H, Estimat Glomerular Filtration Rate 6.4, Glucose Level 142H, Calcium Level 9.5 08/28/20 05:00: White Blood Count 7.0, Red Blood Count 2.38L, Hemoglobin 7.3L, Hematocrit 24.5L, Mean Corpuscular Volume 103H, Mean Corpuscular Hemoglobin 30.8, Mean Corpuscular Hemoglobin Concent 29.9L, Red Cell Distribution Width 15.6H, Platelet Count 221, Mean Platelet Volume 6.9, Neutrophils (%) (Auto) , Lymphocytes (%) (Auto) , Monocytes (%) (Auto) , Eosinophils (%) (Auto) , Basophils (%) (Auto) , Differential Total Cells Counted 100, Neutrophils % (Manual) 59, Lymphocytes % (Manual) 29, Monocytes % (Manual) 8, Eosinophils % (Manual) 4H, Basophils % (Manual) 0, Band Neutrophils 0, Platelet Estimate Adequate, Platelet Morphology Normal, Anisocytosis 1+, Macrocytosis 1+, Sodium Level 136, Potassium Level 5.6H , Chloride Level 100, Carbon Dioxide Level 27, Anion Gap 9, Blood Urea Nitrogen 49H, Creatinine 7.8H, Estimat Glomerular Filtration Rate 6.2, Glucose Level 87, Calcium Level 9.3, Total Bilirubin 0.4, Aspartate Amino Transf (AST/SGOT) 12L, Alanine Aminotransferase (ALT/SGPT) 9L, Alkaline Phosphatase 52, Troponin I 0.023, Total Protein 6.4, Albumin 3.0L, Globulin 3.4, Albumin/Globulin Ratio 0.9L, Polychromasia 1+, Hemoglobin A1c 5.3, Uric Acid 5.8, Phosphorus Level 3.5, Magnesium Level 2.9H, Iron Level 55, Total Iron Binding Capacity 204L, Percent Iron Saturation 27, Unsaturated Iron Binding 149, Ferritin 796H, Gamma Glutamyl Transpeptidase 16, C-Reactive Protein, Quantitative 1.5H, Pro-B-Type Natriuretic Peptide > 69484C, Triglycerides Level 47, Cholesterol Level 195, LDL Cholesterol 99, HDL Cholesterol 63H, Cholesterol/HDL Ratio 3.1L, Vitamin B12 Level > 2000H, Folate 10.7, Thyroid Stimulating Hormone (TSH) 2.746 Height (Feet): 5 Height (Inches): 5.00 Weight (Pounds): 231 Assessment/Plan Assessment/Plan: S: I am ok O: Deneis any chest pain or sob PHYSICAL EXAMINATION: HEAD AND NECK: Atraumatic and normocephalic. CHEST: Clear to auscultation. HEART: S1, S2. Regular rate and rhythm. Bradycardic. MUSCULOSKELETAL: No gross lateralized motor deficit, paraparesis. stage 3 decubitus wound in calcaneal region.NEUROLOGIC: The patient is awake and alert x 2. LABORATORY AND DIAGNOSTIC DATA: Labs dated 08/28/20 reviewed ASSESSMENT: 1. hyperKalemia and Missed HD sessions 2. Decubitus wound, enlarging and infected. 3. Acute on chronic Anemia 4. End-stage renal disease, on temporary PermCath hemodialysis access. 2. Paroxysmal atrial fibrillation, rate is stable. 3. Diabetes type 2. 4. Hypertension. 5. Hyperlipidemia. 6. CVA-history. 7. Dementia. 8. Gastrointestinal and deep vein thrombosis prophylaxes. 9. Pain management Plan: Blood transfusion Monitor Electrolyte level resume home medications Remains high risk for re-admission , given repeated missed HD sessions as op Danie Banegas MD Aug 28, 2020 10:55
--- NOTE | 2020-08-28 11:00 | NUR ---
NURSE NOTES: Blood transfusion in right femoral stopped and transferred to dialysis machine. All morning meds will be given after dialysis because per dialysis nurse they will not be as effective.
[2020-08-28 12:00] VITALS: BP 119/43
[2020-08-28] MEDS: Aspirin Baby 81mg ORAL SCH (12:10)
[2020-08-28] MEDS: Eliquis 2.5mg tablet ORAL SCH ×2 (12:10→17:34)
[2020-08-28] MEDS: Renvela 800mg Pkt ORAL SCH ×3 (12:10→17:34)
[2020-08-28] MEDS: Docusate 100mg cap ORAL SCH ×2 (12:10→17:34)
--- NOTE | 2020-08-28 12:24 | Consultation ---
Consult Note Consult Note DATE OF CONSULTATION: 08/28/2020 PULMONARY CONSULTATION CONSULTING PHYSICIAN: Suraj Roe MD. HISTORY OF PRESENT ILLNESS: This is a 69-year-old female, who is brought to the hospital after missing dialysis. The patient has a history of previous CVA and ESRD and is dialysis dependent. She has missed dialysis in the past as well. . The patient was admitted to the hospital with pulmonary edema. I have been asked to consult for respiratory status. Currently, the patient is saturating 96% on room air, respirations are 16. PAST MEDICAL HISTORY: Notable for ESRD on dialysis, previous CVA, hypertension, CAD, GERD. PREVIOUS SURGERIES: PermCath for dialysis. She also has history of a pacemaker. REVIEW OF SYSTEMS: Denies any headaches, hematemesis, melena, hematochezia, or weight loss. HOME MEDICATIONS: Reviewed and reconciled in the chart. PHYSICAL EXAMINATION: GENERAL: Reveals 69-year-old female. VITAL SIGNS: Blood pressure is 120/50, heart rate 84, respirations 16. O2 saturation 98% on room air. She is afebrile. HEENT: Unremarkable. LUNGS: Decreased breath sounds bilaterally. ABDOMEN: Soft. EXTREMITIES: There is no edema. ABDOMEN: Soft. LABORATORY TESTING: Reviewed X-ray chest per report shows evidence of mild vascular congestion per ER note. IMPRESSION: 1. Electrolyte disorder 2. Pulmonary edema. 3. Missed dialysis. 4. Diabetes mellitus. 5. Hypertension. 6. History of COPD. DISCUSSION: Admit to the hospital. Currently saturating well on room air. She needs dialysis. Nephrology consultation has been requested. I will follow carefully. Discussed with Dr. Banegas. Suraj Roe M.D. Suraj Roe MD Aug 28, 2020 12:24
--- NOTE | 2020-08-28 12:52 | Consultation ---
History of Present Illness General Date patient seen: Aug 28, 2020 Reason for Hospitalization: Generalized Weakness Present Illness HPI 70 year old female with multiple medical comorbidities, esrd on HD, care facility patient who presented after missed dialysis noted to have abnormal labs, hypoalbumin, and breakdown. surgery called to evaluate and assist with care and management. patient seen, chart reviewed, patient examined. no n/v//fc. abd discomfort cramping intermittent similar to reflux. +flatus. Allergies: Coded Allergies: PENICILLINS (Verified Allergy, Unknown, 04/23/20) Tolerated Cefepime 04/23/20 COVID-19 Screening Contact w/high risk pt: No Recent Travel to affected area: No Experienced COVID-19 symptoms?: No Medication History Scheduled Apixaban (Eliquis*), 2.5 MG ORAL BID, (Reported) Ascorbic Acid* (Vitamin C*), 1,000 MG ORAL THREE TIMES A WEEK, (Reported) Aspirin* (Aspirin*), 81 MG ORAL DAILY, (Reported) Atorvastatin Calcium* (Atorvastatin Calcium*), 20 MG ORAL BEDTIME, (Reported) Calcium Acetate (Calcium Acetate), 667 MG PO TID, (Reported) Clonidine Hcl* (Catapres*), 0.1 MG ORAL EVERY 6 HOURS, (Reported) Docusate Sodium* (Docusate Sodium*), 100 MG ORAL TWICE A DAY, (Reported) Ferrous Sulfate* (Ferrous Sulfate*), 325 MG ORAL DAILY, (Reported) Gabapentin* (Gabapentin*), 100 MG ORAL TID, (Reported) Hydralazine Hcl* (Hydralazine Hcl*), 25 MG ORAL EVERY 8 HOURS, (Reported) Magnesium Oxide (Magnesium), 250 MG PO THREE TIMES A WEEK, (Reported) Metoprolol Succinate* (Metoprolol Succinate*), 100 MG ORAL DAILY, (Reported) Neomycin/Polymyxin/Bacitracin* (Triple Antibiotic Ointment*), 30 GM TOPIC DAILY, (Reported) Nifedipine (Nifedipine*), 60 MG ORAL EVERY 8 HOURS, (Reported) [place]-3 Fatty Acids/Fish Oil ([place] 3 Fish Oil Softgel), 250 MG PO THREE TIMES A WEEK, (Reported) Pantoprazole* (Pantoprazole*), 40 MG ORAL DAILY, (Reported) Promethazine Hcl* (Phenergan*), 25 MG ORAL Q6H, (Reported) Sevelamer Carbonate* (Renvela*), 800 MG ORAL THREE TIMES A DAY, (Reported) Ubidecarenone (Coenzyme Q10), 250 MG PO THREE TIMES A WEEK, (Reported) Scheduled PRN Acetaminophen* (Acetaminophen 325MG Tablet*), 650 MG ORAL Q4H PRN for For Pain, (Reported) Hydrocodone Bit/Acetaminophen 5-325* ([place] 5-325*), 1 TAB ORAL Q4H PRN for For Pain, (Reported) Patient History History Provided By: Patient, Medical Record, PMD Healthcare decision maker Resuscitation status Advanced Directive on File Past Medical/Surgical History Past Medical/Surgical History: (1) Volume overload (2) COPD (chronic obstructive pulmonary disease) (3) Bradycardia (4) Diabetic nephropathy (5) Diabetic nephropathy (6) Pacemaker (7) Hypertensive kidney disease (8) History of atrial fibrillation (9) History of CVA (cerebrovascular accident) (10) Cellulitis of left foot (11) Heel abrasion (12) Elevated troponin I level (13) Urinary tract infection due to Proteus (14) Deep tissue injury (15) Hyperkalemia (16) Anemia in chronic kidney disease (CKD) (17) Episode of generalized weakness (18) ESRD (end stage renal disease) (19) Generalized weakness (20) Dyspnea (21) Symptomatic anemia (22) Acute on chronic renal failure (23) Anemia (24) HTN (hypertension) Review of Systems Review of Symptoms General ROS: no weight loss or fever Psychological ROS: no depression or mood changes, no memory loss Ophthalmic ROS: no visual changes or eye irritation ENT ROS: no nasal congestion, hearing loss, dizziness Allergy and Immunology ROS: no allergic symptoms or urticaria Hematological and Lymphatic ROS: no swollen glands, unusual bleeding or bruising Endocrine ROS: no polyuria, polydipsia, weight changes, temperature intolerance Respiratory ROS: no cough, shortness of breath, or wheezing Cardiovascular ROS: no chest pain or dyspnea on exertion Gastrointestinal ROS: denies abdominal pain, bright red blood in stool. Musculoskeletal ROS: no myalgias or arthralgias Neurological ROS: no TIA or stroke symptoms Dermatological ROS: no new or changing skin lesions, rashes or pruritis Physical Exam Physical Exam General appearance: alert, cooperative, no distress, appears stated age Head: Normocephalic, without obvious abnormality, atraumatic Eyes: conjunctivae/corneas clear. PERRL, EOM's intact. Fundi benign Throat: Lips, mucosa, and tongue normal. Teeth and gums normal Neck: supple, symmetrical, trachea midline, no adenopathy, thyroid: not enlarged, symmetric, no tenderness/mass/nodules, no carotid bruit and no JVD Lungs: clear to auscultation bilaterally Heart: regular rate and rhythm, S1, S2 normal, no murmur, click, rub or gallop Abdomen: soft, non-tender. Bowel sounds normal. No masses, no organomegaly Extremities: extremities normal, atraumatic, no cyanosis or edema Pulses: 2+ and symmetric Skin: Skin see below Neurologic: Grossly normal Last 24 Hour Vital Signs Date Time Temp Pulse Resp B/P (MAP) Pulse Ox O2 Delivery O2 Flow Rate FiO2 08/28/20 09:00 Room Air 08/28/20 08:00 97.9 59 20 135/63 (87) 94 08/28/20 08:00 60 08/28/20 04:00 60 08/28/20 04:00 96.6 60 17 101/44 (63) 98 08/28/20 00:00 60 08/28/20 00:00 98.6 61 16 121/48 (72) 100 08/27/20 23:50 Room Air 08/27/20 23:00 60 08/27/20 23:00 98.6 58 14 119/44 (69) 100 08/27/20 22:35 98.8 64 18 142/81 100 Room Air 08/27/20 15:23 69 18 Room Air 08/27/20 15:23 98.1 69 18 118/74 97 Room Air 08/27/20 15:19 98.1 69 18 118/74 (89) 97 Room Air Intake and Output 08/27/20 08/28/20 19:00 07:00 Intake Total 360 ml Balance 360 ml Intake Oral 360 ml Laboratory Tests Test 08/27/20 18:20 08/27/20 20:10 08/27/20 21:20 08/28/20 05:00 White Blood Count 7.9 K/UL (4.8-10.8) 7.0 K/UL (4.8-10.8) Red Blood Count 2.55 M/UL (4.20-5.40) L 2.38 M/UL (4.20-5.40) L Hemoglobin 7.6 G/DL (12.0-16.0) L 7.3 G/DL (12.0-16.0) L Hematocrit 25.0 % (37.0-47.0) L 24.5 % (37.0-47.0) L Mean Corpuscular Volume 98 FL (80-99) 103 FL (80-99) H Mean Corpuscular Hemoglobin 29.6 PG (27.0-31.0) 30.8 PG (27.0-31.0) Mean Corpuscular Hemoglobin Concent 30.2 G/DL (32.0-36.0) L 29.9 G/DL (32.0-36.0) L Red Cell Distribution Width 15.9 % (11.6-14.8) H 15.6 % (11.6-14.8) H Platelet Count 242 K/UL (150-450) 221 K/UL (150-450) Mean Platelet Volume 7.2 FL (6.5-10.1) 6.9 FL (6.5-10.1) Neutrophils (%) (Auto) % (45.0-75.0) % (45.0-75.0) Lymphocytes (%) (Auto) % (20.0-45.0) % (20.0-45.0) Monocytes (%) (Auto) % (1.0-10.0) % (1.0-10.0) Eosinophils (%) (Auto) % (0.0-3.0) % (0.0-3.0) Basophils (%) (Auto) % (0.0-2.0) % (0.0-2.0) Differential Total Cells Counted 100 100 Neutrophils % (Manual) 65 % (45-75) 59 % (45-75) Lymphocytes % (Manual) 24 % (20-45) 29 % (20-45) Monocytes % (Manual) 4 % (1-10) 8 % (1-10) Eosinophils % (Manual) 7 % (0-3) H 4 % (0-3) H Basophils % (Manual) 0 % (0-2) 0 % (0-2) Band Neutrophils 0 % (0-8) 0 % (0-8) Platelet Estimate Adequate Adequate Platelet Morphology Normal Normal Hypochromasia 1+ Poikilocytosis Anisocytosis 1+ 1+ Macrocytosis 1+ 1+ Sodium Level 137 MMOL/L (136-145) 138 MMOL/L (136-145) 138 MMOL/L (136-145) 136 MMOL/L (136-145) Potassium Level 6.0 MMOL/L (3.5-5.1) *H 6.0 MMOL/L (3.5-5.1) *H 5.5 MMOL/L (3.5-5.1) H 5.6 MMOL/L (3.5-5.1) H Chloride Level 98 MMOL/L (98-107) 100 MMOL/L (98-107) 99 MMOL/L (98-107) 100 MMOL/L (98-107) Carbon Dioxide Level 27 MMOL/L (21-32) 30 MMOL/L (21-32) 31 MMOL/L (21-32) 27 MMOL/L (21-32) Anion Gap 12 mmol/L (5-15) 9 mmol/L (5-15) 9 mmol/L (5-15) 9 mmol/L (5-15) Blood Urea Nitrogen 49 mg/dL (7-18) H 50 mg/dL (7-18) H 49 mg/dL (7-18) H 49 mg/dL (7-18) H Creatinine 7.7 MG/DL (0.55-1.30) H 7.6 MG/DL (0.55-1.30) H 7.6 MG/DL (0.55-1.30) H 7.8 MG/DL (0.55-1.30) H Estimat Glomerular Filtration Rate 6.3 mL/min (>60) 6.4 mL/min (>60) 6.4 mL/min (>60) 6.2 mL/min (>60) Glucose Level 93 MG/DL (74-106) 90 MG/DL (74-106) 142 MG/DL (74-106) H 87 MG/DL (74-106) Calcium Level 9.3 MG/DL (8.5-10.1) 9.4 MG/DL (8.5-10.1) 9.5 MG/DL (8.5-10.1) 9.3 MG/DL (8.5-10.1) Total Bilirubin 0.4 MG/DL (0.2-1.0) 0.4 MG/DL (0.2-1.0) Aspartate Amino Transf (AST/SGOT) 11 U/L (15-37) L 12 U/L (15-37) L Alanine Aminotransferase (ALT/SGPT) < 6 U/L (12-78) L 9 U/L (12-78) L Alkaline Phosphatase 56 U/L (46-116) 52 U/L (46-116) Troponin I 0.032 ng/mL (0.000-0.056) 0.023 ng/mL (0.000-0.056) Total Protein 6.7 G/DL (6.4-8.2) 6.4 G/DL (6.4-8.2) Albumin 3.1 G/DL (3.4-5.0) L 3.0 G/DL (3.4-5.0) L Globulin 3.6 g/dL 3.4 g/dL Albumin/Globulin Ratio 0.9 (1.0-2.7) L 0.9 (1.0-2.7) L Polychromasia 1+ Hemoglobin A1c 5.3 % (4.3-6.0) Uric Acid 5.8 MG/DL (2.6-7.2) Phosphorus Level 3.5 MG/DL (2.5-4.9) Magnesium Level 2.9 MG/DL (1.8-2.4) H Iron Level 55 ug/dL (50-175) Total Iron Binding Capacity 204 ug/dL (250-450) L Percent Iron Saturation 27 % (15-50) Unsaturated Iron Binding 149 ug/dL (112-346) Ferritin 796 NG/ML (8-388) H Gamma Glutamyl Transpeptidase 16 U/L (5-85) C-Reactive Protein, Quantitative 1.5 mg/dL (0.00-0.90) H Pro-B-Type Natriuretic Peptide > 69646 pg/mL (0-125) H Triglycerides Level 47 MG/DL (30-150) Cholesterol Level 195 MG/DL (< 200) LDL Cholesterol 99 mg/dL (<100) HDL Cholesterol 63 MG/DL (40-60) H Cholesterol/HDL Ratio 3.1 (3.3-4.4) L Vitamin B12 Level > 2000 PG/ML (193-986) H Folate 10.7 NG/ML (8.6-58.9) Thyroid Stimulating Hormone (TSH) 2.746 uiU/mL (0.358-3.740) Height (Feet): 5 Height (Inches): 5.00 Weight (Pounds): 231 Medications Current Medications Medications (Trade) Dose Ordered Sig/Jesus Route PRN Reason Start Time Stop Time Status Last Admin Dose Admin Acetaminophen (Tylenol) 650 mg Q4H PRN ORAL Mild Pain (Pain Scale 1-3) 08/27/20 23:30 09/26/20 23:29 Acetaminophen/ Hydrocodone Bitart ([place] 5/325) 1 tab Q4H PRN ORAL Moderate Pain (Pain Scale 4-6) 08/27/20 23:30 09/03/20 23:29 Apixaban (Eliquis) 2.5 mg BID ORAL 08/28/20 09:00 11/26/20 08:59 08/28/20 12:10 Aspirin (ASA) 81 mg DAILY ORAL 08/28/20 09:00 10/12/20 08:59 08/28/20 12:10 Atorvastatin Calcium (Lipitor) 20 mg BEDTIME ORAL 08/28/20 21:00 11/26/20 20:59 Calcium Acetate (Phoslo) 667 mg TID ORAL 08/28/20 09:00 11/26/20 08:59 08/28/20 12:11 Docusate Sodium (Colace) 100 mg TWICE A DAY ORAL 08/28/20 09:00 09/27/20 08:59 08/28/20 12:10 Epoetin Jose (Epoetin Jose(ESRD on dialysis)) 10,000 unit SUN-SUN-SUN SUBQ 08/30/20 21:00 11/28/20 20:59 Gabapentin (Neurontin) 100 mg TID ORAL 08/28/20 09:00 09/27/20 08:59 08/28/20 12:11 Hydralazine HCl (Apresoline) 25 mg Q4H PRN ORAL bp over 160 syst 08/27/20 23:30 11/25/20 23:29 Pantoprazole (Protonix) 40 mg EVERY 12 HOURS ORAL 08/28/20 00:00 09/27/20 00:00 08/28/20 12:10 Sevelamer Carbonate (Renvela) 800 mg THREE TIMES A DAY ORAL 08/28/20 09:00 11/26/20 08:59 08/28/20 12:10 Assessment/Plan Problem List: (1) Episode of generalized weakness ICD Codes: R53.1 - Weakness SNOMED: 25183386 (2) ESRD (end stage renal disease) Assessment & Plan: as per renal plan HD access okay cont to use ICD Codes: N18.6 - End stage renal disease SNOMED: 87086119 (3) COPD (chronic obstructive pulmonary disease) ICD Codes: J44.9 - Chronic obstructive pulmonary disease, unspecified SNOMED: 55494945 (4) Hyperkalemia ICD Codes: E87.5 - Hyperkalemia SNOMED: 80797009 (5) Generalized weakness ICD Codes: R53.1 - Weakness SNOMED: 79901945 (6) Bradycardia ICD Codes: R00.1 - Bradycardia, unspecified SNOMED: 18579635 (7) Diabetic nephropathy ICD Codes: E11.21 - Type 2 diabetes mellitus with diabetic nephropathy SNOMED: 58284375, 176588570 (8) Diabetic nephropathy ICD Codes: E11.21 - Type 2 diabetes mellitus with diabetic nephropathy SNOMED: 89728368, 157959607 (9) Pacemaker ICD Codes: Z95.0 - Presence of cardiac pacemaker SNOMED: 681999172 (10) Hypertensive kidney disease ICD Codes: I12.9 - Hypertensive chronic kidney disease with stage 1 through stage 4 chronic kidney disease, or unspecified chronic kidney disease SNOMED: 48382954 (11) History of atrial fibrillation ICD Codes: Z86.79 - Personal history of other diseases of the circulatory system SNOMED: 497439683 (12) History of CVA (cerebrovascular accident) ICD Codes: Z86.73 - Personal history of transient ischemic attack (TIA), and cerebral infarction without residual deficits SNOMED: 490895491 (13) Volume overload ICD Codes: E87.70 - Fluid overload, unspecified SNOMED: 80662358 (14) Cellulitis of left foot Assessment & Plan: improved as compared to prior cont local care ICD Codes: L03.116 - Cellulitis of left lower limb SNOMED: 128270175 (15) Heel abrasion ICD Codes: S90.819A - Abrasion, unspecified foot, initial encounter SNOMED: 243526276, 610333380 (16) Anemia in chronic kidney disease (CKD) ICD Codes: N18.9 - Chronic kidney disease, unspecified; D63.1 - Anemia in chronic kidney disease SNOMED: 050508637 (17) Elevated troponin I level ICD Codes: R74.8 - Abnormal levels of other serum enzymes SNOMED: 965198559 (18) Urinary tract infection due to Proteus ICD Codes: N39.0 - Urinary tract infection, site not specified; B96.4 - Proteus (mirabilis) (morganii) as the cause of diseases classified elsewhere SNOMED: 198351152 (19) Deep tissue injury Assessment & Plan: Pt presented on admission with Multiple Pressure injuries. Sacral DTPI noted over previously compromised area with breakdown. Surrounding surgical scar. Base of Pressure Injury is indurated ,purpuric with Maroon Borders. Black discoloration with marginal erythema noted to R and L Buttocks. Linear area of hyperpigmentation noted sacral cleft. Darker skin tone without erythema or induration noted to R and L ischial tuberosities. L 1st metatarsal is black with small blood filled blister at tip of metatarsal.Web space of L 1st and L 2nd metatarsal is erythematous and macerated. Mild odor noted. Dry necrotic area noted to lateral aspect of L 5th metatarsal. Dry eschar lateral L foot (L)1cm x (W)1.5cm. Periwound is dry without erythema or fluctuance. Unstageable Pressure Injury L Heel(L)2.4cm x (W)3.5cm. Base of wound is necrotic with surrounding moist and pale skin,dry black borders. R 1st metatarsal is black. T heel is boggy, pale with dry peeling skin. Return visit to complete Skin assessment as pt was being dialyzed previous day.Pt is morbidly obese. Bilat breasts folds and abdominal folds are moist and malodorous MASD Buttocks including Bilat Ischial tuberosities. Affected areas are erythematous and denuded. Moisture Intertrigo hardy cleft of buttocks. Full thickness Ulcer medial upper R thigh (L)1.4cm x (W)1 cm x (D)0.2cm. Base of wound is monique with scattered Biofilm, and macerated Borders. NO exudate noted. Periwound, skin is erythematous, moist and malodorous. An area of Hyperpigmentation noted to medial aspect of R thigh in close proximity to wound. Medial upper L thigh is erythematous ,denuded and malodorous. Tx.Plan: Apply Moisture Barrier Paste to buttocks, ischium, and Bilat medial upper thighs with each incontinence care. Cleanse wound medial upper L thigh with Saline. Apply Therahoney. Apply Moisture Barrier Paste periwound. Cover with Optifoam drsg. Change Daily and prn. Cleanse Sacral wound with Saline. Apply TheraHoney. Apply Moisture Barrier Paste Periwound. Cover with Optifoam drsg. Change every 3 days and prn. Apply Moisture Barrier Paste to R and L ischial tuberosities with each Incontinence care. wash L heel. apply betadine and cover with optifoam dressing Apply Cavilon Skin Barrier to R Heel. Cover with Optifoam drsg. Change every 7 days and prn. Reposition at least every 2hours or as tolerated. off-load heels with pillows. nutritional optimization ICD Codes: T14.8XXA - Other injury of unspecified body region, initial encounter SNOMED: 593580296 (20) Dyspnea ICD Codes: R06.00 - Dyspnea, unspecified SNOMED: 730952985 (21) Symptomatic anemia ICD Codes: D64.9 - Anemia, unspecified SNOMED: 631477300 (22) Acute on chronic renal failure ICD Codes: N17.9 - Acute kidney failure, unspecified; N18.9 - Chronic kidney disease, unspecified SNOMED: 247701397 (23) Anemia ICD Codes: D64.9 - Anemia, unspecified SNOMED: 057268708 (24) HTN (hypertension) ICD Codes: I10 - Essential (primary) hypertension SNOMED: 65371037 Luis Alberto Cade Aug 28, 2020 12:52
[2020-08-28 16:00] VITALS: BP 145/59
--- NOTE | 2020-08-28 18:09 | NUR ---
NURSE HAND-OFF REPORT: Important Events on Shift:[pt received 2 units PRBC for low HgB. otherwise no remarkable events ] Patient Status: [in bed resting] Diet: [renal soft easy chew, ] Pending Orders: [] Pending Results/Labs:[] Pending MD notification:[] Latest Vital Signs: Temperature 98.1 , Pulse 59 , B/P 145 /59 , Respiratory Rate 20 , O2 SAT 97 , Room Air, O2 Flow Rate . Vital Sign Comment: [] EKG Rhythm: SR, A-PACED Rhythm change?: N MD Notified?: - MD Response: Latest Srivastava Fall Score: 50 Fall Risk: High Risk Safety Measures: Call light Within Reach, Bed Alarm Zone 2, Side Rails Side Rails x2, Bed position Low and Locked. Fall Precautions: Yellow Gown Door Sign Patient Fall Education Report given to [pending assignment]. Addendum: 08/28/20 at 1937 by Adeola Huston RN Report given to Laura BEAN
--- NOTE | 2020-08-28 18:11 | NUR ---
NURSE NOTES: Received pt asleep, arousable to voice, comfortable in bed, in no acute distress; call light within easy reach, bed locked and in lowest position; side rails x 3. Will continue to monitor.
--- NOTE | 2020-08-28 18:21 | Cardiology Progress Note ---
Assessment/Plan Assessment/Plan The patient is seen and examined, full consult note is dictated. Objective Last 24 Hour Vital Signs Date Time Temp Pulse Resp B/P (MAP) Pulse Ox O2 Delivery O2 Flow Rate FiO2 08/28/20 16:00 98.1 59 20 145/59 (87) 97 08/28/20 15:51 60 08/28/20 12:00 60 08/28/20 12:00 97.6 59 20 119/43 (68) 94 08/28/20 09:00 Room Air 08/28/20 08:00 97.9 59 20 135/63 (87) 94 08/28/20 08:00 60 08/28/20 04:00 60 08/28/20 04:00 96.6 60 17 101/44 (63) 98 08/28/20 00:00 60 08/28/20 00:00 98.6 61 16 121/48 (72) 100 08/27/20 23:50 Room Air 08/27/20 23:00 60 08/27/20 23:00 98.6 58 14 119/44 (69) 100 08/27/20 22:35 98.8 64 18 142/81 100 Room Air Intake and Output 08/27/20 08/28/20 19:00 07:00 Intake Total 360 ml Balance 360 ml Intake Oral 360 ml Laboratory Tests Test 08/27/20 20:10 08/27/20 21:20 08/28/20 05:00 Sodium Level 138 MMOL/L (136-145) 138 MMOL/L (136-145) 136 MMOL/L (136-145) Potassium Level 6.0 MMOL/L (3.5-5.1) *H 5.5 MMOL/L (3.5-5.1) H 5.6 MMOL/L (3.5-5.1) H Chloride Level 100 MMOL/L (98-107) 99 MMOL/L (98-107) 100 MMOL/L (98-107) Carbon Dioxide Level 30 MMOL/L (21-32) 31 MMOL/L (21-32) 27 MMOL/L (21-32) Anion Gap 9 mmol/L (5-15) 9 mmol/L (5-15) 9 mmol/L (5-15) Blood Urea Nitrogen 50 mg/dL (7-18) H 49 mg/dL (7-18) H 49 mg/dL (7-18) H Creatinine 7.6 MG/DL (0.55-1.30) H 7.6 MG/DL (0.55-1.30) H 7.8 MG/DL (0.55-1.30) H Estimat Glomerular Filtration Rate 6.4 mL/min (>60) 6.4 mL/min (>60) 6.2 mL/min (>60) Glucose Level 90 MG/DL (74-106) 142 MG/DL (74-106) H 87 MG/DL (74-106) Calcium Level 9.4 MG/DL (8.5-10.1) 9.5 MG/DL (8.5-10.1) 9.3 MG/DL (8.5-10.1) White Blood Count 7.0 K/UL (4.8-10.8) Red Blood Count 2.38 M/UL (4.20-5.40) L Hemoglobin 7.3 G/DL (12.0-16.0) L Hematocrit 24.5 % (37.0-47.0) L Mean Corpuscular Volume 103 FL (80-99) H Mean Corpuscular Hemoglobin 30.8 PG (27.0-31.0) Mean Corpuscular Hemoglobin Concent 29.9 G/DL (32.0-36.0) L Red Cell Distribution Width 15.6 % (11.6-14.8) H Platelet Count 221 K/UL (150-450) Mean Platelet Volume 6.9 FL (6.5-10.1) Neutrophils (%) (Auto) % (45.0-75.0) Lymphocytes (%) (Auto) % (20.0-45.0) Monocytes (%) (Auto) % (1.0-10.0) Eosinophils (%) (Auto) % (0.0-3.0) Basophils (%) (Auto) % (0.0-2.0) Differential Total Cells Counted 100 Neutrophils % (Manual) 59 % (45-75) Lymphocytes % (Manual) 29 % (20-45) Monocytes % (Manual) 8 % (1-10) Eosinophils % (Manual) 4 % (0-3) H Basophils % (Manual) 0 % (0-2) Band Neutrophils 0 % (0-8) Platelet Estimate Adequate Platelet Morphology Normal Polychromasia 1+ Anisocytosis 1+ Macrocytosis 1+ Hemoglobin A1c 5.3 % (4.3-6.0) Uric Acid 5.8 MG/DL (2.6-7.2) Phosphorus Level 3.5 MG/DL (2.5-4.9) Magnesium Level 2.9 MG/DL (1.8-2.4) H Iron Level 55 ug/dL (50-175) Total Iron Binding Capacity 204 ug/dL (250-450) L Percent Iron Saturation 27 % (15-50) Unsaturated Iron Binding 149 ug/dL (112-346) Ferritin 796 NG/ML (8-388) H Total Bilirubin 0.4 MG/DL (0.2-1.0) Gamma Glutamyl Transpeptidase 16 U/L (5-85) Aspartate Amino Transf (AST/SGOT) 12 U/L (15-37) L Alanine Aminotransferase (ALT/SGPT) 9 U/L (12-78) L Alkaline Phosphatase 52 U/L (46-116) Troponin I 0.023 ng/mL (0.000-0.056) C-Reactive Protein, Quantitative 1.5 mg/dL (0.00-0.90) H Pro-B-Type Natriuretic Peptide > 75971 pg/mL (0-125) H Total Protein 6.4 G/DL (6.4-8.2) Albumin 3.0 G/DL (3.4-5.0) L Globulin 3.4 g/dL Albumin/Globulin Ratio 0.9 (1.0-2.7) L Triglycerides Level 47 MG/DL (30-150) Cholesterol Level 195 MG/DL (< 200) LDL Cholesterol 99 mg/dL (<100) HDL Cholesterol 63 MG/DL (40-60) H Cholesterol/HDL Ratio 3.1 (3.3-4.4) L Vitamin B12 Level > 2000 PG/ML (193-986) H Folate 10.7 NG/ML (8.6-58.9) Thyroid Stimulating Hormone (TSH) 2.746 uiU/mL (0.358-3.740) Triston Joy MD Aug 28, 2020 18:21
[2020-08-28 20:00] VITALS: BP 114/50
--- NOTE | 2020-08-28 22:00 | Consultation ---
DATE OF CONSULTATION: 08/28/2020 CARDIOLOGY CONSULTATION CONSULTING PHYSICIAN: Triston Joy M.D. REFERRING PHYSICIAN: Danie Banegas M.D. REASON FOR CONSULTATION: Management of shortness of breath. HISTORY OF PRESENT ILLNESS: The patient is a very unfortunate 70-year-old female, who presents to the hospital with complaints of shortness of breath and abnormal laboratories with abnormal potassium level. At the time of arrival to the hospital today, she did not have any chest pain. She apparently missed her hemodialysis appointment on August 27, 2020. Her cardiovascular history is significant for history of dual-chamber pacemaker implantation for diagnosis of sick sinus syndrome, CVA with left hemipareses, diabetes mellitus, paroxysmal atrial fibrillation, hypertension, and hyperlipidemia. The patien's dual-chamber pacemaker is [employer] and was interrogated in June 2020 showing normal lead data and longevity. At the time of arrival to the hospital, blood pressure was 118/74 mmHg and heart rate was 70. A 12-lead electrocardiogram was significant for atrial paced rhythm at the rate of 70 with ventricular sense and no acute ischemic features. The patient had blood tests in the emergency department, which revealed severe low hemoglobin at 7.6, elevated potassium at 6.0, and BUN and creatinine of 49 and 7.7. Troponin I level x2 were normal and proBNP in the phase of hemodialysis was over 35,000. The patient was admitted to telemetry unit for evaluation and management of hyperkalemia and shortness of breath. Cardiology consultation was made at the request of Dr. Banegas for evaluation and management of pacemaker. PAST MEDICAL HISTORY: 1. End-stage renal disease, on three days of hemodialysis. 2. CVA with left hemiparesis. 3. Diabetes mellitus. 4. Diabetic neuropathy. 5. Paroxysmal atrial fibrillation. 6. Hypertension. 7. Hyperlipidemia. 8. Dementia. 9. Anemia of chronic disease. MEDICATIONS: List of medication includes acetaminophen 650 mg q.4 hours p.r.n. pain, Eliquis 2.5 mg twice daily, ascorbic acid 1000 mg 3 times a week, aspirin 81 mg daily, atorvastatin 20 mg p.o. at bedtime, calcium acetate 667 mg 3 times a day, clonidine 0.1 mg q. 6 hours p.r.n. hypertension, Colace 100 mg p.o. twice daily, ferrous sulfate 325 mg daily, gabapentin 100 mg 3 times a day, hydralazine 25 mg q.8 hours, Rozet 5/325 one tablet q.4 hours p.r.n. pain. Magnesium 250 mg 3 times a week, metoprolol 100 mg p.o. daily, and triple antibiotic ointment, nifedipine 60 mg q.8 hours, fish oil 250 mg 3 times a week, pantoprazole 40 mg p.o. daily, promethazine 25 mg q.6 hours p.r.n. nausea, Renvela 800 mg three times a day, and Coenzyme Q10 250 mg 2 times a week. ALLERGIES: Penicillin. SOCIAL HISTORY: Denies any tobacco, alcohol, or illicit drug use. FAMILY HISTORY: No premature coronary artery disease in the first-degree relatives. REVIEW OF SYSTEMS: HEENT: Denies any headache, diplopia, or blurred vision. CONSTITUTIONAL: Positive weakness, but no fever, chills, or night sweats. CARDIOVASCULAR: Positive for shortness of breath, but no chest pain. No PND, orthopnea, leg swelling, palpitations, or syncope. PULMONARY: Denies any cough, hemoptysis, or wheezing. Positive for shortness of breath. GASTROINTESTINAL: Denies any nausea, vomiting, diarrhea, constipation, abdominal pain, or GI bleeding. GENITOURINARY: Denies any hematuria. On hemodialysis 3 days a week. NEUROLOGY: Denies any motor dysfunction, sensory deficit, or altered speech. MUSCULOSKELETAL: Nonambulatory. Positive gait instability and paralyzed in the left side of the body. PHYSICAL EXAMINATION: VITAL SIGNS: Blood pressure was 118/74 mmHg, pulse of 69, respirations 18, temperature 98.1 degrees Fahrenheit, and saturation 97% on room air. GENERAL: The patient is a very unfortunate 31-year-old female, who is seen in Cardiology consultation in no respiratory distress. Alert and oriented x4. HEENT: Atraumatic and normocephalic. Anicteric. Pupils are equal, round, and reactive to light and accommodation. Extraocular muscles intact. A conjunctival pallor is present. NECK: JVP cannot be assessed. A carotid upstroke is 2+ bilaterally. No carotid bruit. CARDIOVASCULAR: Normal S1, S2. Regular rate and rhythm. No murmurs, gallops, or rubs. PMI is at fourth intercostal space in the midclavicular line. LUNGS: Clear to auscultation bilaterally. ABDOMEN: Soft, nontender, and nondistended. No hepatosplenomegaly. Positive bowel sounds. EXTREMITIES: A 2+ bilateral lower extremity edema. Right PermCath in the anterior chest wall is also seen. LABORATORY FINDINGS: Sodium 137, potassium is 6.0, chloride 98, bicarbonate 27, BUN of 49, creatinine 7.7, glucose is 93, and calcium is 9.3. WBC was 7.9, hemoglobin 7.6, hematocrit 25, and platelet count is 242,000. Chest x-ray showed cardiomegaly with mild pulmonary vascular congestion due to volume overload. ASSESSMENT AND PLAN: The patient is a very unfortunate 70-year-old female seen in Cardiology consultation. 1. Most likely chronic heart failure with preserved EF. Chest x-ray with volume overload. Recent 2D echocardiography shows normal LV function with LVEF approximately 55%. 2. Paroxysmal atrial fibrillation. Continue Eliquis. Currently atrial paced rhythm. 3. Dual-chamber pacemaker implantation with normal function, currently a paced ventricular sensed rhythm. 4. Diabetes mellitus. Continue aspirin and statin. 5. End-stage renal disease. 6. Hyperlipidemia. 7. CVA. I would like to thank Dr. Banegas for the courtesy of this consultation. Triston Joy M.D. DR: DAKOTAH JOB#: [id number] CC:
[2020-08-29] VITALS: BP 136/47
[2020-08-29 04:00] VITALS: BP 125/51
--- NOTE | 2020-08-29 05:10 | NUR ---
NURSE NOTES: R femoral triple lumen catheter dressing changed d/t noted with soilage and old dressing was coming off; pt tolerated dressing change well
--- NOTE | 2020-08-29 07:30 | NUR ---
NURSE NOTES: Received pt from VIKAS Zamudio, pt is sleeping, pt is in RA, no SOB or acute respiratory distress noted. pt has triple lumen R femoral SL. pt has RU chest perm cath, dressing is intact. all needs attended, bed is locked and is in the lowest position, call light within easy reach. will continue to monitor.
--- NOTE | 2020-08-29 07:30 | NUR ---
NURSE HAND-OFF REPORT: Important Events on Shift: R femoral central line triple lumen catheter dressing changed, permacath R chest for HD q MWF, MRSA/VRE/CRE swab collected, Pacemaker L chest; A-paced Patient Status: stable Diet: renal soft, easy to chew, thin liquids Pending Orders: n/a Pending Results/Labs:morning labs; CRE/MRSA/VRE cx Pending MD notification: n/a Latest Vital Signs: Temperature 98.4 , Pulse 60 , B/P 125 /51 , Respiratory Rate 20 , O2 SAT 96 , Room Air, O2 Flow Rate . Vital Sign Comment: stable EKG Rhythm: SR, A-PACED Rhythm change?: N MD Notified?: N - MD Response: Latest Srivastava Fall Score: 70 Fall Risk: High Risk Safety Measures: Call light Within Reach, Bed Alarm Zone 2, Side Rails Side Rails x2, Bed position Low and Locked. Fall Precautions: Yellow Gown Door Sign Patient Fall Education Report given to VIKAS Torres [].
[2020-08-29 08:00] VITALS: BP 135/62
[2020-08-29] MEDS ORDERED: NS 275ml ONE (08:51)
[2020-08-29] MEDS ORDERED: Tubing IV Blood Pump IV ONE (08:51)
[2020-08-29] MEDS: Aspirin Baby 81mg ORAL SCH (09:14)
[2020-08-29] MEDS: Eliquis 2.5mg tablet ORAL SCH ×2 (09:14→17:26)
[2020-08-29] MEDS: Docusate 100mg cap ORAL SCH ×2 (09:14→17:26)
[2020-08-29] MEDS: Renvela 800mg Pkt ORAL SCH ×3 (09:14→17:26)
--- NOTE | 2020-08-29 10:08 | Pulmonology Progress Note ---
Subjective Interval Events: Feeling better Constitutional: Reports: no symptoms HEENT: Repors: no symptoms Respiratory: Reports: no symptoms Cardiovascular: Reports: no symptoms Gastrointestinal/Abdominal: Reports: no symptoms Allergies: Coded Allergies: PENICILLINS (Verified Allergy, Unknown, 04/23/20) Tolerated Cefepime 04/23/20 Objective Last 24 Hour Vital Signs Date Time Temp Pulse Resp B/P (MAP) Pulse Ox O2 Delivery O2 Flow Rate FiO2 08/29/20 08:00 99.1 60 20 135/62 (86) 95 08/29/20 04:00 60 08/29/20 04:00 98.4 60 20 125/51 (75) 96 08/29/20 00:00 98.6 60 20 136/47 (76) 94 08/29/20 00:00 60 08/28/20 21:00 Room Air 08/28/20 20:00 60 08/28/20 20:00 99.7 60 20 114/50 (71) 95 08/28/20 16:00 98.1 59 20 145/59 (87) 97 08/28/20 15:51 60 08/28/20 12:00 60 08/28/20 12:00 97.6 59 20 119/43 (68) 94 Intake and Output 08/28/20 08/29/20 19:00 07:00 Intake Total 118 ml Output Total 2000 ml Balance -1882 ml Intake Oral 118 ml Output Hemodialysis UF 2000 ml General Appearance: no acute distress HEENT: normocephalic Respiratory: chest wall non-tender, lungs clear Cardiovascular: normal peripheral pulses Microbiology Date/Time Source Procedure Growth Status 08/29/20 04:35 Rectum Received Laboratory Tests 08/29/20 06:05: White Blood Count [Pending], Red Blood Count [Pending], Hemoglobin [Pending], Hematocrit [Pending], Mean Corpuscular Volume [Pending], Mean Corpuscular Hemoglobin [Pending], Mean Corpuscular Hemoglobin Concent [Pending], Red Cell Distribution Width [Pending], Platelet Count [Pending], Mean Platelet Volume [Pending], Neutrophils (%) (Auto) [Pending], Lymphocytes (%) (Auto) [Pending], Monocytes (%) (Auto) [Pending], Eosinophils (%) (Auto) [Pending], Basophils (%) (Auto) [Pending], Sodium Level [Pending], Potassium Level [Pending], Chloride Level [Pending], Carbon Dioxide Level [Pending], Blood Urea Nitrogen [Pending], Creatinine [Pending], Estimat Glomerular Filtration Rate [Pending], Glucose Level [Pending], Calcium Level [Pending], Phosphorus Level [Pending], Total Bilirubin [Pending], Aspartate Amino Transf (AST/SGOT) [Pending], Alanine Aminotransferase (ALT/SGPT) [Pending], Alkaline Phosphatase [Pending], Total Protein [Pending], Albumin [Pending], Globulin [Pending] Current Medications Medications (Trade) Dose Ordered Sig/Jesus Route PRN Reason Start Time Stop Time Status Last Admin Dose Admin Acetaminophen (Tylenol) 650 mg Q4H PRN ORAL Mild Pain (Pain Scale 1-3) 08/27/20 23:30 09/26/20 23:29 Acetaminophen/ Hydrocodone Bitart ([place] 5/325) 1 tab Q4H PRN ORAL Moderate Pain (Pain Scale 4-6) 08/27/20 23:30 09/03/20 23:29 Apixaban (Eliquis) 2.5 mg BID ORAL 08/28/20 09:00 11/26/20 08:59 08/29/20 09:14 Aspirin (ASA) 81 mg DAILY ORAL 08/28/20 09:00 10/12/20 08:59 08/29/20 09:14 Atorvastatin Calcium (Lipitor) 20 mg BEDTIME ORAL 08/28/20 21:00 11/26/20 20:59 08/28/20 21:05 Calcium Acetate (Phoslo) 667 mg TID ORAL 08/28/20 09:00 11/26/20 08:59 08/29/20 09:14 Docusate Sodium (Colace) 100 mg TWICE A DAY ORAL 08/28/20 09:00 09/27/20 08:59 08/29/20 09:14 Epoetin Jose (Epoetin Jose(ESRD on dialysis)) 10,000 unit SUN-SUN-SUN SUBQ 08/30/20 21:00 11/28/20 20:59 Gabapentin (Neurontin) 100 mg TID ORAL 08/28/20 09:00 09/27/20 08:59 08/29/20 09:14 Hydralazine HCl (Apresoline) 25 mg Q4H PRN ORAL bp over 160 syst 08/27/20 23:30 11/25/20 23:29 Pantoprazole (Protonix) 40 mg EVERY 12 HOURS ORAL 08/28/20 00:00 09/27/20 00:00 08/29/20 09:14 Sevelamer Carbonate (Renvela) 800 mg THREE TIMES A DAY ORAL 08/28/20 09:00 11/26/20 08:59 08/29/20 09:14 Assessment/Plan Assessment/Plan IMPRESSION: 1. Electrolyte disorder 2. Pulmonary edema. 3. Missed dialysis. 4. Diabetes mellitus. 5. Hypertension. 6. History of COPD. DISCUSSION: Admit to the hospital. Currently saturating well on room air. Continue dialysis. Nephrology consultation noted I will follow carefully. Discussed with Dr. Banegas. Yajaira Tse Omar Syed MD Aug 29, 2020 10:08
[2020-08-29 10:54] LABS: EOSINOPHILS % (AUTO) 5.4 % (0.0-3.0); HEMATOCRIT 35.9 % (37.0-47.0); HEMOGLOBIN 11.6 G/DL (12.0-16.0); LYMPHOCYTES % (AUTO) 24.5 % (20.0-45.0); MEAN CORPUSCULAR VOLUME 98 FL (80-99); MONOCYTES % (AUTO) 12.6 % (1.0-10.0); NEUTROPHILS % (AUTO) 56.5 % (45.0-75.0); PLATELET COUNT 217 K/UL (150-450); RED BLOOD COUNT 3.65 M/UL (4.20-5.40); RED CELL DISTRIBUTION WIDTH 16.1 % (11.6-14.8); WHITE BLOOD COUNT 9.4 K/UL (4.8-10.8)
[2020-08-29 11:11] LABS: ALANINE AMINOTRANSFERASE < 6 U/L (12-78); ALBUMIN 3.2 G/DL (3.4-5.0); ALBUMIN/GLOBULIN RATIO 0.8 (1.0-2.7); ALKALINE PHOSPHATASE 59 U/L (46-116); ANION GAP 8 mmol/L (5-15); ASPARTATE AMINO TRANSFERASE 15 U/L (15-37); BILIRUBIN,TOTAL 0.6 MG/DL (0.2-1.0); BLOOD UREA NITROGEN 38 mg/dL (7-18); CALCIUM 9.5 MG/DL (8.5-10.1); CARBON DIOXIDE 31 MMOL/L (21-32); CHLORIDE 97 MMOL/L (98-107); CREATININE 6.2 MG/DL (0.55-1.30); PHOSPHORUS 2.4 MG/DL (2.5-4.9); POTASSIUM 4.7 MMOL/L (3.5-5.1); SODIUM 136 MMOL/L (136-145)
[2020-08-29 12:00] VITALS: BP 127/42
--- NOTE | 2020-08-29 12:40 | Nephrology Progress Note ---
Assessment/Plan Problem List: (1) ESRD (end stage renal disease) (2) Volume overload (3) Hyperkalemia (4) Hypertensive kidney disease (5) Anemia in chronic kidney disease (CKD) (6) Pacemaker (7) History of atrial fibrillation (8) History of CVA (cerebrovascular accident) Assessment End-stage renal disease on hemodialysis Sunday Patient has been missing dialysis frequently Patient presented with hyperkalemia and anemia Plan Hemodialysis done yesterday August 28, next dialysis August 30 Anemia work-up, transfusion was done August 28 Adjust electrolytes and chemistries Adjust blood pressure and blood sugar Per orders Subjective ROS Limited/Unobtainable: No Constitutional: Reports: malaise Objective Objective Last 24 Hour Vital Signs Date Time Temp Pulse Resp B/P (MAP) Pulse Ox O2 Delivery O2 Flow Rate FiO2 08/29/20 12:00 98.4 60 20 127/42 (70) 98 08/29/20 09:00 Room Air 08/29/20 08:00 99.1 60 20 135/62 (86) 95 08/29/20 07:39 60 08/29/20 04:00 60 08/29/20 04:00 98.4 60 20 125/51 (75) 96 08/29/20 00:00 98.6 60 20 136/47 (76) 94 08/29/20 00:00 60 08/28/20 21:00 Room Air 08/28/20 20:00 60 08/28/20 20:00 99.7 60 20 114/50 (71) 95 08/28/20 16:00 98.1 59 20 145/59 (87) 97 08/28/20 15:51 60 Intake and Output 08/28/20 08/29/20 19:00 07:00 Intake Total 118 ml Output Total 2000 ml Balance -1882 ml Intake Oral 118 ml Output Hemodialysis UF 2000 ml Current Medications Medications (Trade) Dose Ordered Sig/Jesus Route PRN Reason Start Time Stop Time Status Last Admin Dose Admin Acetaminophen (Tylenol) 650 mg Q4H PRN ORAL Mild Pain (Pain Scale 1-3) 08/27/20 23:30 09/26/20 23:29 Acetaminophen/ Hydrocodone Bitart ([place] 5/325) 1 tab Q4H PRN ORAL Moderate Pain (Pain Scale 4-6) 08/27/20 23:30 09/03/20 23:29 Apixaban (Eliquis) 2.5 mg BID ORAL 08/28/20 09:00 11/26/20 08:59 08/29/20 09:14 Aspirin (ASA) 81 mg DAILY ORAL 08/28/20 09:00 10/12/20 08:59 08/29/20 09:14 Atorvastatin Calcium (Lipitor) 20 mg BEDTIME ORAL 08/28/20 21:00 11/26/20 20:59 08/28/20 21:05 Calcium Acetate (Phoslo) 667 mg TID ORAL 08/28/20 09:00 11/26/20 08:59 08/29/20 12:27 Docusate Sodium (Colace) 100 mg TWICE A DAY ORAL 08/28/20 09:00 09/27/20 08:59 08/29/20 09:14 Epoetin Jose (Epoetin Jose(ESRD on dialysis)) 10,000 unit SUBQ 08/30/20 21:00 11/28/20 20:59 Gabapentin (Neurontin) 100 mg TID ORAL 08/28/20 09:00 09/27/20 08:59 08/29/20 12:27 Hydralazine HCl (Apresoline) 25 mg Q4H PRN ORAL bp over 160 syst 08/27/20 23:30 11/25/20 23:29 Pantoprazole (Protonix) 40 mg EVERY 12 HOURS ORAL 08/28/20 00:00 09/27/20 00:00 08/29/20 09:14 Sevelamer Carbonate (Renvela) 800 mg THREE TIMES A DAY ORAL 08/28/20 09:00 11/26/20 08:59 08/29/20 12:27 Laboratory Tests 08/29/20 09:30: Sodium Level 136, Potassium Level 4.7, Chloride Level 97L, Carbon Dioxide Level 31, Anion Gap 8, Blood Urea Nitrogen 38H, Creatinine 6.2H, Estimat Glomerular Filtration Rate 8.0, Glucose Level 84, Calcium Level 9.5, Phosphorus Level 2.4L, Total Bilirubin 0.6, Aspartate Amino Transf (AST/SGOT) 15, Alanine Aminotransferase (ALT/SGPT) < 6L, Alkaline Phosphatase 59, Total Protein 7.0, Albumin 3.2L, Globulin 3.8, Albumin/Globulin Ratio 0.8L 08/29/20 09:50: White Blood Count 9.4, Red Blood Count 3.65L, Hemoglobin 11.6#L, Hematocrit 35.9#L, Mean Corpuscular Volume 98, Mean Corpuscular Hemoglobin 31.8H, Mean Corpuscular Hemoglobin Concent 32.4, Red Cell Distribution Width 16.1H, Platelet Count 217, Mean Platelet Volume 7.2, Neutrophils (%) (Auto) 56.5, Lymphocytes (%) (Auto) 24.5, Monocytes (%) (Auto) 12.6H, Eosinophils (%) (Auto) 5.4H, Basophils (%) (Auto) 1.0 Height (Feet): 5 Height (Inches): 5.00 Weight (Pounds): 231 General Appearance: no apparent distress Cardiovascular: normal rate Respiratory/Chest: decreased breath sounds Abdomen: soft Manas Stephenson MD Aug 29, 2020 12:40
[2020-08-29 16:00] VITALS: BP 120/48
--- NOTE | 2020-08-29 17:28 | Surgery Progress Note ---
Surgery Progress Note Subjective Symptoms: improved, tolerating diet, voiding well, passing flatus, BM, pain decreased Objective Last 24 Hour Vital Signs Date Time Temp Pulse Resp B/P (MAP) Pulse Ox O2 Delivery O2 Flow Rate FiO2 08/29/20 16:00 98.1 60 20 120/48 (72) 98 08/29/20 15:40 60 08/29/20 12:00 98.4 60 20 127/42 (70) 98 08/29/20 11:36 60 08/29/20 09:00 Room Air 08/29/20 08:00 99.1 60 20 135/62 (86) 95 08/29/20 07:39 60 08/29/20 04:00 60 08/29/20 04:00 98.4 60 20 125/51 (75) 96 08/29/20 00:00 98.6 60 20 136/47 (76) 94 08/29/20 00:00 60 08/28/20 21:00 Room Air 08/28/20 20:00 60 08/28/20 20:00 99.7 60 20 114/50 (71) 95 I&O Intake and Output 08/28/20 08/29/20 19:00 07:00 Intake Total 118 ml Output Total 2000 ml Balance -1882 ml Intake Oral 118 ml Output Hemodialysis UF 2000 ml Dressing: dry Wound: clean Cardiovascular: RSR Respiratory: clear Abdomen: soft, non-tender, present bowel sounds Extremities: no edema, no tenderness, no cyanosis Laboratory Tests Test 08/29/20 09:30 08/29/20 09:50 Sodium Level 136 MMOL/L (136-145) Potassium Level 4.7 MMOL/L (3.5-5.1) Chloride Level 97 MMOL/L (98-107) L Carbon Dioxide Level 31 MMOL/L (21-32) Anion Gap 8 mmol/L (5-15) Blood Urea Nitrogen 38 mg/dL (7-18) H Creatinine 6.2 MG/DL (0.55-1.30) H Estimat Glomerular Filtration Rate 8.0 mL/min (>60) Glucose Level 84 MG/DL (74-106) Calcium Level 9.5 MG/DL (8.5-10.1) Phosphorus Level 2.4 MG/DL (2.5-4.9) L Total Bilirubin 0.6 MG/DL (0.2-1.0) Aspartate Amino Transf (AST/SGOT) 15 U/L (15-37) Alanine Aminotransferase (ALT/SGPT) < 6 U/L (12-78) L Alkaline Phosphatase 59 U/L (46-116) Total Protein 7.0 G/DL (6.4-8.2) Albumin 3.2 G/DL (3.4-5.0) L Globulin 3.8 g/dL Albumin/Globulin Ratio 0.8 (1.0-2.7) L White Blood Count 9.4 K/UL (4.8-10.8) Red Blood Count 3.65 M/UL (4.20-5.40) L Hemoglobin 11.6 G/DL (12.0-16.0) #L Hematocrit 35.9 % (37.0-47.0) #L Mean Corpuscular Volume 98 FL (80-99) Mean Corpuscular Hemoglobin 31.8 PG (27.0-31.0) H Mean Corpuscular Hemoglobin Concent 32.4 G/DL (32.0-36.0) Red Cell Distribution Width 16.1 % (11.6-14.8) H Platelet Count 217 K/UL (150-450) Mean Platelet Volume 7.2 FL (6.5-10.1) Neutrophils (%) (Auto) 56.5 % (45.0-75.0) Lymphocytes (%) (Auto) 24.5 % (20.0-45.0) Monocytes (%) (Auto) 12.6 % (1.0-10.0) H Eosinophils (%) (Auto) 5.4 % (0.0-3.0) H Basophils (%) (Auto) 1.0 % (0.0-2.0) Plan Problems: (1) Episode of generalized weakness (2) ESRD (end stage renal disease) Assessment & Plan: as per renal plan HD access okay cont to use (3) COPD (chronic obstructive pulmonary disease) (4) Hyperkalemia (5) Generalized weakness (6) Bradycardia (7) Diabetic nephropathy (8) Diabetic nephropathy (9) Pacemaker (10) Hypertensive kidney disease (11) History of atrial fibrillation (12) History of CVA (cerebrovascular accident) (13) Volume overload (14) Cellulitis of left foot Assessment & Plan: improved as compared to prior cont local care (15) Heel abrasion (16) Anemia in chronic kidney disease (CKD) (17) Elevated troponin I level (18) Urinary tract infection due to Proteus (19) Deep tissue injury Assessment & Plan: Pt presented on admission with Multiple Pressure injuries. Sacral DTPI noted over previously compromised area with breakdown. Surrounding surgical scar. Base of Pressure Injury is indurated ,purpuric with Maroon Borders. Black discoloration with marginal erythema noted to R and L Buttocks. Linear area of hyperpigmentation noted sacral cleft. Darker skin tone without erythema or induration noted to R and L ischial tuberosities. L 1st metatarsal is black with small blood filled blister at tip of metatarsal.Web space of L 1st and L 2nd metatarsal is erythematous and macerated. Mild odor noted. Dry necrotic area noted to lateral aspect of L 5th metatarsal. Dry eschar lateral L foot (L)1cm x (W)1.5cm. Periwound is dry without erythema or fluctuance. Unstageable Pressure Injury L Heel(L)2.4cm x (W)3.5cm. Base of wound is necrotic with surrounding moist and pale skin,dry black borders. R 1st metatarsal is black. T heel is boggy, pale with dry peeling skin. Return visit to complete Skin assessment as pt was being dialyzed previous da y.Pt is morbidly obese. Bilat breasts folds and abdominal folds are moist and malodorous MASD Buttocks including Bilat Ischial tuberosities. Affected areas are erythematous and denuded. Moisture Intertrigo cleft of buttocks. Full thickness Ulcer medial upper R thigh (L)1.4cm x (W)1 cm x (D)0.2cm. Base of wound is monique with scattered Biofilm, and macerated Borders. NO exudate noted. Periwound, skin is erythematous, moist and malodorous. An area of Hyperpigmentation noted to medial aspect of R thigh in close proximity to wound. Medial upper L thigh is erythematous ,denuded and malodorous. Tx.Plan: Apply Moisture Barrier Paste to buttocks, ischium, and Bilat medial upper thighs with each incontinence care. Cleanse wound medial upper L thigh with Saline. Apply Therahoney. Apply Moisture Barrier Paste periwound. Cover with Optifoam drsg. Change Daily and prn. Cleanse Sacral wound with Saline. Apply TheraHoney. Apply Moisture Barrier Paste Periwound. Cover with Optifoam drsg. Change every 3 days and prn. Apply Moisture Barrier Paste to R and L ischial tuberosities with each Incontinence care. wash L heel. apply betadine and cover with optifoam dressing Apply Cavilon Skin Barrier to R Heel. Cover with Optifoam drsg. Change every 7 days and prn. Reposition at least every 2hours or as tolerated. off-load heels with pillows. nutritional optimization (20) Dyspnea (21) Symptomatic anemia (22) Acute on chronic renal failure (23) Anemia (24) HTN (hypertension) Luis Alberto Cade Aug 29, 2020 17:28
--- NOTE | 2020-08-29 19:25 | NUR ---
NURSE HAND-OFF REPORT: Important Events on Shift: Patient Status: Diet: Pending Orders: Pending Results/Labs: Pending MD notification: Latest Vital Signs: Temperature 98.1 , Pulse 60 , B/P 120 /48 , Respiratory Rate 20 , O2 SAT 98 , Room Air, O2 Flow Rate . Vital Sign Comment: EKG Rhythm: SR with 1th degree HB, A-PACED Rhythm change?: N MD Notified?: Y Katharine Joy MD Response: No New Orders Received Latest Srivastava Fall Score: 70 Fall Risk: High Risk Safety Measures: Call light Within Reach, Bed Alarm Zone 2, Side Rails Side Rails x2, Bed position Low and Locked. Fall Precautions: Yellow Gown Door Sign Patient Fall Education Report given to . Pt is awake and stable, no stress noted, Endorsed plan of care, Endorsed to F/U for HD tomorrow.
--- NOTE | 2020-08-29 19:26 | NUR ---
NURSE NOTES: Received pt aaox2, eating in bed comfortably; in no acute distress; denies any pain nor discomfort. Call light within reach; bed locked and in low position; side railsx2; purewick in place but pt anuric on HD q MWF; R femoral catheter triple lumen and R chest permacath with dressing c/d/i; With scheduled HD tomorrow (q MWF), pt aware. Will continue to monitor.
[2020-08-29 20:00] VITALS: BP 122/70
--- NOTE | 2020-08-29 20:40 | Cardiology Report ---
APPROVED REPORT EKG Measurement Heart [id number] SD 242P [id number] <Conclusion> Atrial-paced rhythm with prolonged AV conduction Nonspecific intraventricular block Abnormal ECG
--- NOTE | 2020-08-29 21:08 | General Progress Note ---
Subjective Allergies: Coded Allergies: PENICILLINS (Verified Allergy, Unknown, 04/23/20) Tolerated Cefepime 04/23/20 Objective Last 24 Hour Vital Signs Date Time Temp Pulse Resp B/P (MAP) Pulse Ox O2 Delivery O2 Flow Rate FiO2 08/29/20 20:00 98.1 60 18 122/70 (87) 95 08/29/20 16:00 98.1 60 20 120/48 (72) 98 08/29/20 15:40 60 08/29/20 12:00 98.4 60 20 127/42 (70) 98 08/29/20 11:36 60 08/29/20 09:00 Room Air 08/29/20 08:00 99.1 60 20 135/62 (86) 95 08/29/20 07:39 60 08/29/20 04:00 60 08/29/20 04:00 98.4 60 20 125/51 (75) 96 08/29/20 00:00 98.6 60 20 136/47 (76) 94 08/29/20 00:00 60 l Intake and Output 08/28/20 08/29/20 19:00 07:00 Intake Total 118 ml Output Total 2000 ml Balance -1882 ml Intake Oral 118 ml Output Hemodialysis UF 2000 ml Laboratory Tests 08/29/20 09:30: Sodium Level 136, Potassium Level 4.7, Chloride Level 97L, Carbon Dioxide Level 31, Anion Gap 8, Blood Urea Nitrogen 38H, Creatinine 6.2H, Estimat Glomerular Filtration Rate 8.0, Glucose Level 84, Calcium Level 9.5, Phosphorus Level 2.4L, Total Bilirubin 0.6, Aspartate Amino Transf (AST/SGOT) 15, Alanine Aminotransferase (ALT/SGPT) < 6L, Alkaline Phosphatase 59, Total Protein 7.0, A lbumin 3.2L, Globulin 3.8, Albumin/Globulin Ratio 0.8L 08/29/20 09:50: White Blood Count 9.4, Red Blood Count 3.65L, Hemoglobin 11.6#L, Hematocrit 35.9#L, Mean Corpuscular Volume 98, Mean Corpuscular Hemoglobin 31.8H, Mean Corpuscular Hemoglobin Concent 32.4, Red Cell Distribution Width 16.1H, Platelet Count 217, Mean Platelet Volume 7.2, Neutrophils (%) (Auto) 56.5, Lymphocytes (%) (Auto) 24.5, Monocytes (%) (Auto) 12.6H, Eosinophils (%) (Auto) 5.4H, Basop hils (%) (Auto) 1.0 Height (Feet): 5 Height (Inches): 5.00 Weight (Pounds): 231 Assessment/Plan Assessment/Plan: S: I am ok O: Deneis any chest pain or sob PHYSICAL EXAMINATION: HEAD AND NECK: Atraumatic and normocephalic. CHEST: Clear to auscultation. HEART: S1, S2. Regular rate and rhythm. Bradycardic. MUSCULOSKELETAL: No gross lateralized motor deficit, paraparesis. stage 3 decubitus wound in calcaneal region.NEUROLOGIC: The patient is awake and alert x 2. LABORATORY AND DIAGNOSTIC DATA: Labs dated 08/29/20 reviewed ASSESSMENT: 1. hyperKalemia and Missed HD sessions 2. Decubitus wound, enlarging and infected. 3. Acute on chronic Anemia 4. End-stage renal disease, on temporary PermCath hemodialysis access. 2. Paroxysmal atrial fibrillation, rate is stable. 3. Diabetes type 2. 4. Hypertension. 5. Hyperlipidemia. 6. CVA-history. 7. Dementia. 8. Gastrointestinal and deep vein thrombosis prophylaxes. 9. Pain management 10. Decubitus wound Plan: Blood transfusion Monitor Electrolyte level resume home medications Remains high risk for re-admission , given repeated missed HD sessions as op NOtes from Wound mgt specialist noted Danie Banegas MD Aug 29, 2020 21:08
--- NOTE | 2020-08-29 23:45 | Cardiology Progress Note ---
Assessment/Plan Assessment/Plan 1. Most likely chronic heart failure with preserved EF. Chest x-ray with volume overload. Recent 2D echocardiography shows normal LV function with LVEF approximately 55%. 2. Paroxysmal atrial fibrillation. Continue Eliquis. Currently atrial paced rhythm. 3. Dual-chamber pacemaker implantation with normal function, currently atrial paced ventricular sensed rhythm. 4. Diabetes mellitus. Continue aspirin and statin. 5. End-stage renal disease. 6. Hyperlipidemia. 7. CVA. Subjective Subjective Atrial paced rhythm at rate of 60. Objective Last 24 Hour Vital Signs Date Time Temp Pulse Resp B/P (MAP) Pulse Ox O2 Delivery O2 Flow Rate FiO2 08/29/20 21:00 Room Air 08/29/20 20:00 98.1 60 18 122/70 (87) 95 08/29/20 20:00 60 08/29/20 16:00 98.1 60 20 120/48 (72) 98 08/29/20 15:40 60 08/29/20 12:00 98.4 60 20 127/42 (70) 98 08/29/20 11:36 60 08/29/20 09:00 Room Air 08/29/20 08:00 99.1 60 20 135/62 (86) 95 08/29/20 07:39 60 08/29/20 04:00 60 08/29/20 04:00 98.4 60 20 125/51 (75) 96 08/29/20 00:00 98.6 60 20 136/47 (76) 94 08/29/20 00:00 60 Intake and Output 08/28/20 08/29/20 19:00 07:00 Intake Total 118 ml Output Total 2000 ml Balance -1882 ml Intake Oral 118 ml Output Hemodialysis UF 2000 ml 2D Echo: LVEF 55%, RVSP 21 mmHg, Grade II LVDD/pseudo-normal LV physiology Laboratory Tests Test 08/29/20 09:30 08/29/20 09:50 Sodium Level 136 MMOL/L (136-145) Potassium Level 4.7 MMOL/L (3.5-5.1) Chloride Level 97 MMOL/L (98-107) L Carbon Dioxide Level 31 MMOL/L (21-32) Anion Gap 8 mmol/L (5-15) Blood Urea Nitrogen 38 mg/dL (7-18) H Creatinine 6.2 MG/DL (0.55-1.30) H Estimat Glomerular Filtration Rate 8.0 mL/min (>60) Glucose Level 84 MG/DL (74-106) Calcium Level 9.5 MG/DL (8.5-10.1) Phosphorus Level 2.4 MG/DL (2.5-4.9) L Total Bilirubin 0.6 MG/DL (0.2-1.0) Aspartate Amino Transf (AST/SGOT) 15 U/L (15-37) Alanine Aminotransferase (ALT/SGPT) < 6 U/L (12-78) L Alkaline Phosphatase 59 U/L (46-116) Total Protein 7.0 G/DL (6.4-8.2) Albumin 3.2 G/DL (3.4-5.0) L Globulin 3.8 g/dL Albumin/Globulin Ratio 0.8 (1.0-2.7) L White Blood Count 9.4 K/UL (4.8-10.8) Red Blood Count 3.65 M/UL (4.20-5.40) L Hemoglobin 11.6 G/DL (12.0-16.0) #L Hematocrit 35.9 % (37.0-47.0) #L Mean Corpuscular Volume 98 FL (80-99) Mean Corpuscular Hemoglobin 31.8 PG (27.0-31.0) H Mean Corpuscular Hemoglobin Concent 32.4 G/DL (32.0-36.0) Red Cell Distribution Width 16.1 % (11.6-14.8) H Platelet Count 217 K/UL (150-450) Mean Platelet Volume 7.2 FL (6.5-10.1) Neutrophils (%) (Auto) 56.5 % (45.0-75.0) Lymphocytes (%) (Auto) 24.5 % (20.0-45.0) Monocytes (%) (Auto) 12.6 % (1.0-10.0) H Eosinophils (%) (Auto) 5.4 % (0.0-3.0) H Basophils (%) (Auto) 1.0 % (0.0-2.0) Microbiology Date/Time Source Procedure Growth Status 08/29/20 04:35 Rectum Received Objective HEENT: Atraumatic and normocephalic. Anicteric. Pupils are equal, round, and reactive to light and accommodation. Extraocular muscles intact. A conjunctival pallor is present. NECK: JVP cannot be assessed. A carotid upstroke is 2+ bilaterally. No carotid bruit. CARDIOVASCULAR: Normal S1, S2. Regular rate and rhythm. No murmurs, gallops, or rubs. PMI is at fourth intercostal space in the midclavicular line. LUNGS: Clear to auscultation bilaterally. ABDOMEN: Soft, nontender, and nondistended. No hepatosplenomegaly. Positive bowel sounds. EXTREMITIES: A 2+ bilateral lower extremity edema. Right PermCath in the anterior chest wall is also seen. Triston Joy MD Aug 29, 2020 23:44
[2020-08-30] VITALS: BP 122/64
[2020-08-30 04:00] VITALS: BP 114/65
--- NOTE | 2020-08-30 07:00 | NUR ---
NURSE HAND-OFF REPORT: Important Events on Shift: Pt sound asleep throughout shift; For scheduled HD today (qmwf); Dialysis nurse to collect blood specimen during today's session Patient Status: stable Diet: renal soft easyto chew Pending Orders: n/a Pending Results/Labs: morning labs, MRSA/CRE/VRE swab Pending MD notification: N Latest Vital Signs: Temperature 97.5 , Pulse 60 , B/P 114 /65 , Respiratory Rate 20 , O2 SAT 96 , Room Air, O2 Flow Rate . Vital Sign Comment: stable EKG Rhythm: A-Paced Rhythm change?: N MD Notified?: N MD Response: N/A Latest Srivastava Fall Score: 70 Fall Risk: High Risk Safety Measures: Call light Within Reach, Bed Alarm Zone 2, Side Rails Side Rails x2, Bed position Low and Locked. Fall Precautions: Yellow Gown Door Sign Patient Fall Education Report given to Christophe Mir RN
--- NOTE | 2020-08-30 07:20 | NUR ---
NURSE NOTES: Pt received from Nabor Estrada. Pt in bed sleeping. Bed low and locked. Call light within reach. no distress noted. Pt to be dialyzed today, Young aware.
--- NOTE | 2020-08-30 07:22 | NUR ---
RD ASSESSMENT & RECOMMENDATIONS SEE CARE ACTIVITY FOR COMPLETE ASSESSMENT DAILY ESTIMATED NEEDS: Needs based on ESRD on HD, wound, obese 70.1kg abw 20-25 kcals/kg 0924-5048 total kcals 1.8-2.5 IBW 56.8kg g protein/kg 102-142 g total protein Fluid per MD on HD NUTRITION DIAGNOSIS: Increased protein needs r/t renal dysfunction and wound healing as evidenced by pt w/ ESRD on HD, h/o of wound, eval pending. (CURRENT DIET: Renal soft) PO DIET RECOMMENDATIONS: RENAL DIET+ DOUBLE PRO PORTIONS ADDITIONAL RECOMMENDATIONS: 1) RE-calibrate bed scale for accurate CBW 2) Add NEPRO 1 tetra w/ meals w/ poor meal acceptance variable intake at this time 3) Wound care: continue SOLEDAD BID + Add Nephrovite x1 daily Vit C-> dosing per nephro 4) Monitor lytes and renal fxn .
[2020-08-30 08:00] VITALS: BP 104/60
[2020-08-30] MEDS: Docusate 100mg cap ORAL SCH ×2 (08:03→17:18)
[2020-08-30] MEDS: Eliquis 2.5mg tablet ORAL SCH ×2 (08:03→17:18)
[2020-08-30] MEDS: Aspirin Baby 81mg ORAL SCH (08:03)
[2020-08-30] MEDS: Renvela 800mg Pkt ORAL SCH ×3 (08:04→17:18)
--- NOTE | 2020-08-30 08:20 | NUR ---
CASE MANAGEMENT:REVIEW 08/30/20 SI: HYPERKALEMIA. ANEMIA. PAFIB STAGE III DECUB. ESRD ON HD. PACEMAKER 97.5 60 20 114/65 96% ON RA IS: EPOETIN SQ MWF LIPITOR PO QHS NEURONTIN PO TID RENVELA PO TID PHOSLO PO TID ASA PO QD ELIQUIS PO BID PROTONIX PO Q12 : TELEMETRY STATUS DCP: PATIENT IS FROM HOME ~ HAS ISSUES WITH OUTPATIENT DIALYSIS TRANSPORTATION
--- NOTE | 2020-08-30 10:06 | Pulmonology Progress Note ---
Subjective ROS Limited/Unobtainable: No Interval Events: Feeling better Constitutional: Reports: no symptoms HEENT: Repors: no symptoms Respiratory: Reports: no symptoms Cardiovascular: Reports: no symptoms Gastrointestinal/Abdominal: Reports: no symptoms Allergies: Coded Allergies: PENICILLINS (Verified Allergy, Unknown, 04/23/20) Tolerated Cefepime 04/23/20 Objective Last 24 Hour Vital Signs Date Time Temp Pulse Resp B/P (MAP) Pulse Ox O2 Delivery O2 Flow Rate FiO2 08/30/20 09:00 Room Air 08/30/20 08:00 97.9 59 20 104/60 (75) 94 08/30/20 08:00 60 08/30/20 04:00 97.5 60 20 114/65 (81) 96 08/30/20 04:00 60 08/30/20 00:00 97.9 60 20 122/64 (83) 95 08/30/20 00:00 60 08/29/20 21:00 Room Air 08/29/20 20:00 98.1 60 18 122/70 (87) 95 08/29/20 20:00 60 08/29/20 16:00 98.1 60 20 120/48 (72) 98 08/29/20 15:40 60 08/29/20 12:00 98.4 60 20 127/42 (70) 98 08/29/20 11:36 60 Intake and Output 08/29/20 08/30/20 19:00 07:00 Intake Total 236 ml Balance 236 ml Intake Oral 236 ml # Voids 1 General Appearance: no acute distress HEENT: normocephalic Respiratory: chest wall non-tender, lungs clear Cardiovascular: normal peripheral pulses Microbiology Date/Time Source Procedure Growth Status 08/29/20 04:35 Rectum Received Current Medications Medications (Trade) Dose Ordered Sig/Jesus Route PRN Reason Start Time Stop Time Status Last Admin Dose Admin Acetaminophen (Tylenol) 650 mg Q4H PRN ORAL Mild Pain (Pain Scale 1-3) 08/27/20 23:30 09/26/20 23:29 Acetaminophen/ Hydrocodone Bitart ([place] 5/325) 1 tab Q4H PRN ORAL Moderate Pain (Pain Scale 4-6) 08/27/20 23:30 09/03/20 23:29 Apixaban (Eliquis) 2.5 mg BID ORAL 08/28/20 09:00 2/19/21 08:59 08/30/20 08:03 Aspirin (ASA) 81 mg DAILY ORAL 08/28/20 09:00 10/12/20 08:59 08/30/20 08:03 Atorvastatin Calcium (Lipitor) 20 mg BEDTIME ORAL 08/28/20 21:00 11/26/20 20:59 08/29/20 20:33 Calcium Acetate (Phoslo) 667 mg TID ORAL 08/28/20 09:00 11/26/20 08:59 08/30/20 08:04 Docusate Sodium (Colace) 100 mg TWICE A DAY ORAL 08/28/20 09:00 09/27/20 08:59 08/30/20 08:03 Epoetin Jose (Epoetin Jose(ESRD on dialysis)) 10,000 unit SUBQ 08/30/20 21:00 11/28/20 20:59 Gabapentin (Neurontin) 100 mg TID ORAL 08/28/20 09:00 09/27/20 08:59 08/30/20 08:03 Hydralazine HCl (Apresoline) 25 mg Q4H PRN ORAL bp over 160 syst 08/27/20 23:30 11/25/20 23:29 Pantoprazole (Protonix) 40 mg EVERY 12 HOURS ORAL 08/28/20 00:00 09/27/20 00:00 08/30/20 08:04 Sevelamer Carbonate (Renvela) 800 mg THREE TIMES A DAY ORAL 08/28/20 09:00 11/26/20 08:59 08/30/20 08:04 Assessment/Plan Assessment/Plan IMPRESSION: 1. Electrolyte disorder 2. Pulmonary edema. 3. Missed dialysis. 4. Diabetes mellitus. 5. Hypertension. 6. History of COPD. DISCUSSION: Admit to the hospital. Currently saturating well on room air. Continue dialysis. Nephrology consultation noted I will follow carefully. Discussed with Dr. Banegas. Yajaira Tse Omar Syed MD Aug 30, 2020 10:06
--- NOTE | 2020-08-30 10:30 | Nephrology Progress Note ---
Assessment/Plan Problem List: (1) ESRD (end stage renal disease) (2) Volume overload (3) Hyperkalemia (4) Hypertensive kidney disease (5) Anemia in chronic kidney disease (CKD) (6) Pacemaker (7) History of atrial fibrillation (8) History of CVA (cerebrovascular accident) Assessment End-stage renal disease on hemodialysis Sunday Patient has been missing dialysis frequently Patient presented with hyperkalemia and anemia Plan August 30: Last dialysis August 28. Due to be started on dialysis shortly. No labs drawn today. Patient already transfused. Patient on outpatient hemodialysis Sunday. Continue per PMD and consultants. Hemodialysis done yesterday August 28, next dialysis August 30 Anemia work-up, transfusion was done August 28 Adjust electrolytes and chemistries Adjust blood pressure and blood sugar Per orders Subjective ROS Limited/Unobtainable: No Constitutional: Reports: malaise Objective Objective Last 24 Hour Vital Signs Date Time Temp Pulse Resp B/P (MAP) Pulse Ox O2 Delivery O2 Flow Rate FiO2 08/30/20 09:00 Room Air 08/30/20 08:00 97.9 59 20 104/60 (75) 94 08/30/20 08:00 60 08/30/20 04:00 97.5 60 20 114/65 (81) 96 08/30/20 04:00 60 08/30/20 00:00 97.9 60 20 122/64 (83) 95 08/30/20 00:00 60 08/29/20 21:00 Room Air 08/29/20 20:00 98.1 60 18 122/70 (87) 95 08/29/20 20:00 60 08/29/20 16:00 98.1 60 20 120/48 (72) 98 08/29/20 15:40 60 08/29/20 12:00 98.4 60 20 127/42 (70) 98 08/29/20 11:36 60 Intake and Output 08/29/20 08/30/20 19:00 07:00 Intake Total 236 ml Balance 236 ml Intake Oral 236 ml # Voids 1 Current Medications Medications (Trade) Dose Ordered Sig/Jesus Route PRN Reason Start Time Stop Time Status Last Admin Dose Admin Acetaminophen (Tylenol) 650 mg Q4H PRN ORAL Mild Pain (Pain Scale 1-3) 08/27/20 23:30 09/26/20 23:29 Acetaminophen/ Hydrocodone Bitart ([place] 5/325) 1 tab Q4H PRN ORAL Moderate Pain (Pain Scale 4-6) 08/27/20 23:30 09/03/20 23:29 Apixaban (Eliquis) 2.5 mg BID ORAL 08/28/20 09:00 11/26/20 08:59 08/30/20 08:03 Aspirin (ASA) 81 mg DAILY ORAL 08/28/20 09:00 10/12/20 08:59 08/30/20 08:03 Atorvastatin Calcium (Lipitor) 20 mg BEDTIME ORAL 08/28/20 21:00 11/26/20 20:59 08/29/20 20:33 Calcium Acetate (Phoslo) 667 mg TID ORAL 08/28/20 09:00 11/26/20 08:59 08/30/20 08:04 Docusate Sodium (Colace) 100 mg TWICE A DAY ORAL 08/28/20 09:00 09/27/20 08:59 08/30/20 08:03 Epoetin Jose (Epoetin Jose(ESRD on dialysis)) 10,000 unit SUN-SUN-SUN SUBQ 08/30/20 21:00 11/28/20 20:59 Gabapentin (Neurontin) 100 mg TID ORAL 08/28/20 09:00 09/27/20 08:59 08/30/20 08:03 Hydralazine HCl (Apresoline) 25 mg Q4H PRN ORAL bp over 160 syst 08/27/20 23:30 11/25/20 23:29 Pantoprazole (Protonix) 40 mg EVERY 12 HOURS ORAL 08/28/20 00:00 09/27/20 00:00 08/30/20 08:04 Sevelamer Carbonate (Renvela) 800 mg THREE TIMES A DAY ORAL 08/28/20 09:00 11/26/20 08:59 08/30/20 08:04 Height (Feet): 5 Height (Inches): 5.00 Weight (Pounds): 231 General Appearance: no apparent distress Cardiovascular: normal rate Respiratory/Chest: decreased breath sounds Abdomen: soft Manas Stephenson MD Aug 30, 2020 10:30
[2020-08-30 12:00] VITALS: BP 88/41
--- NOTE | 2020-08-30 13:32 | Surgery Progress Note ---
Surgery Progress Note Subjective Additional Comments no acute events resting comfortable plan for HD today no n/v/f/c labs noted Objective Last 24 Hour Vital Signs Date Time Temp Pulse Resp B/P (MAP) Pulse Ox O2 Delivery O2 Flow Rate FiO2 08/30/20 12:00 97.6 60 20 88/41 (57) 95 08/30/20 12:00 60 08/30/20 09:00 Room Air 08/30/20 08:00 97.9 59 20 104/60 (75) 94 08/30/20 08:00 60 08/30/20 04:00 97.5 60 20 114/65 (81) 96 08/30/20 04:00 60 08/30/20 00:00 97.9 60 20 122/64 (83) 95 08/30/20 00:00 60 08/29/20 21:00 Room Air 08/29/20 20:00 98.1 60 18 122/70 (87) 95 08/29/20 20:00 60 08/29/20 16:00 98.1 60 20 120/48 (72) 98 08/29/20 15:40 60 I&O Intake and Output 08/29/20 08/30/20 19:00 07:00 Intake Total 236 ml Balance 236 ml Intake Oral 236 ml # Voids 1 Cardiovascular: RSR Respiratory: decreased breath sounds Abdomen: soft, non-tender, present bowel sounds Extremities: edema, no tenderness, no cyanosis Plan Problems: (1) Episode of generalized weakness (2) ESRD (end stage renal disease) Assessment & Plan: as per renal plan HD access okay cont to use (3) COPD (chronic obstructive pulmonary disease) (4) Hyperkalemia (5) Generalized weakness (6) Bradycardia (7) Diabetic nephropathy (8) Diabetic nephropathy (9) Pacemaker (10) Hypertensive kidney disease (11) History of atrial fibrillation (12) History of CVA (cerebrovascular accident) (13) Volume overload (14) Cellulitis of left foot Assessment & Plan: improved as compared to prior cont local care nutritional optimization DAILY ESTIMATED NEEDS: Needs based on ESRD on HD, wound, obese 70.1kg abw 20-25 kcals/kg 2368-1082 total kcals 1.8-2.5 IBW 56.8kg g protein/kg 102-142 g total protein Fluid per MD on HD NUTRITION DIAGNOSIS: Increased protein needs r/t renal dysfunction and wound healing as evidenced by pt w/ ESRD on HD, h/o of wound, eval pending. (CURRENT DIET: Renal soft) PO DIET RECOMMENDATIONS: RENAL DIET+ DOUBLE PRO PORTIONS ADDITIONAL RECOMMENDATIONS: 1) RE-calibrate bed scale for accurate CBW 2) Add NEPRO 1 tetra w/ meals w/ poor meal acceptance variable intake at this time 3) Wound care: continue SOLEDAD BID + Add Nephrovite x1 daily Vit C-> dosing per nephro 4) Monitor lytes and renal fxn (15) Heel abrasion (16) Anemia in chronic kidney disease (CKD) (17) Elevated troponin I level (18) Urinary tract infection due to Proteus (19) Deep tissue injury Assessment & Plan: Pt presented on admission with Multiple Pressure injuries. Sacral DTPI noted over previously compromised area with breakdown. Surrounding surgical scar. Base of Pressure Injury is indurated ,purpuric with Maroon Borders. Black discoloration with marginal erythema noted to R and L Buttocks. Linear area of hyperpigmentation noted sacral cleft. Darker skin tone without erythema or induration noted to R and L ischial tuber osities. L 1st metatarsal is black with small blood filled blister at tip of metatarsal.Web space of L 1st and L 2nd metatarsal is erythematous and macerated. Mild odor noted. Dry necrotic area noted to lateral aspect of L 5th metatarsal. Dry eschar lateral L foot (L)1cm x (W)1.5cm. Periwound is dry without erythema or fluctuance. Unstageable Pressure Injury L Heel(L)2.4cm x (W)3.5cm. Base of wound is necrotic with surrounding moist and pale skin,dry black borders. R 1st metatarsal is black. T heel is boggy, pale with dry peeling skin. Return visit to complete Skin assessment as pt was being dialyzed previous day.Pt is morbidly obese. Bilat breasts folds and abdominal folds are moist and malodorous MASD Buttocks including Bilat Ischial tuberosities. Affected areas are erythematous and denuded. Moisture Intertrigo cleft of buttocks. Full thickness Ulcer medial upper R thigh (L)1.4cm x (W)1 cm x (D)0.2cm. Base of wound is monique with scattered Biofilm, and macerated Borders. NO exudate noted. Periwound, skin is erythematous, moist and malodorous. An area of Hyperpigmentation noted to medial aspect of R thigh in close proximity to wound. Medial upper L thigh is erythematous ,denuded and malodorous. Tx.Plan: Apply Moisture Barrier Paste to buttocks, ischium, and Bilat medial upper thighs with each incontinence care. Cleanse wound medial upper L thigh with Saline. Apply Therahoney. Apply Moisture Barrier Paste periwound. Cover with Optifoam drsg. Change Daily and prn. Cleanse Sacral wound with Saline. Apply TheraHoney. Apply Moisture Barrier Paste Periwound. Cover with Optifoam drsg. Change every 3 days and prn. Apply Moisture Barrier Paste to R and L ischial tuberosities with each Incontinence care. wash L heel. apply betadine and cover with optifoam dressing Apply Cavilon Skin Barrier to R Heel. Cover with Optifoam drsg. Change every 7 days and prn. Reposition at least every 2hours or as tolerated. off-load heels with pillows. nutritional optimization (20) Dyspnea (21) Symptomatic anemia (22) Acute on chronic renal failure (23) Anemia (24) HTN (hypertension) Luis Alberto Cade Aug 30, 2020 13:32
--- NOTE | 2020-08-30 15:33 | General Progress Note ---
Subjective Allergies: Coded Allergies: PENICILLINS (Verified Allergy, Unknown, 04/23/20) Tolerated Cefepime 04/23/20 Objective Last 24 Hour Vital Signs Date Time Temp Pulse Resp B/P (MAP) Pulse Ox O2 Delivery O2 Flow Rate FiO2 08/30/20 12:00 97.6 60 20 88/41 (57) 95 08/30/20 12:00 60 08/30/20 09:00 Room Air 08/30/20 08:00 97.9 59 20 104/60 (75) 94 08/30/20 08:00 60 08/30/20 04:00 97.5 60 20 114/65 (81) 96 08/30/20 04:00 60 08/30/20 00:00 97.9 60 20 122/64 (83) 95 08/30/20 00:00 60 08/29/20 21:00 Room Air 08/29/20 20:00 98.1 60 18 122/70 (87) 95 08/29/20 20:00 60 08/29/20 16:00 98.1 60 20 120/48 (72) 98 08/29/20 15:40 60 Intake and Output 08/29/20 08/30/20 19:00 07:00 Intake Total 236 ml Balance 236 ml Intake Oral 236 ml # Voids 1 Height (Feet): 5 Height (Inches): 5.00 Weight (Pounds): 231 Assessment/Plan Assessment/Plan: S: I am ok O: Deneis any chest pain or sob PHYSICAL EXAMINATION: HEAD AND NECK: Atraumatic and normocephalic. CHEST: Clear to auscultation. HEART: S1, S2. Regular rate and rhythm. Bradycardic. MUSCULOSKELETAL: No gross lateralized motor deficit, paraparesis. stage 3 decubitus wound in calcaneal region.NEUROLOGIC: The patient is awake and alert x 2. LABORATORY AND DIAGNOSTIC DATA: Labs dated 08/30/20 reviewed ASSESSMENT: 1. hyperKalemia and Missed HD sessions 2. Decubitus wound, enlarging and infected. 3. Acute on chronic Anemia 4. End-stage renal disease, on temporary PermCath hemodialysis access. 2. Paroxysmal atrial fibrillation, rate is stable. 3. Diabetes type 2. 4. Hypertension. 5. Hyperlipidemia. 6. CVA-history. 7. Dementia. 8. Gastrointestinal and deep vein thrombosis prophylaxes. 9. Pain management 10. Decubitus wound Plan: Blood transfusion Monitor Electrolyte level resume home medications Remains high risk for re-admission , given repeated missed HD sessions as op NOtes from Wound mgt specialist noted Danie Banegas MD Aug 30, 2020 15:33
[2020-08-30 16:00] VITALS: BP 134/56
--- NOTE | 2020-08-30 18:25 | NUR ---
NURSE HAND-OFF REPORT: Important Events on Shift:[2 liters taken out during dialysis. D/C postponed due to daughter requesting ambulance turkey picker. Femoral PICC line removed per Dr. Banegas orders. Tele box removed, Wrist band cut. Py cant sign DC forms but only belonging is a dress.] Patient Status: [in bed resting stable.] Diet: [renal soft easy chew ] Pending Orders: [] Pending Results/Labs:[] Pending MD notification:[] Latest Vital Signs: Temperature 99.1 , Pulse 60 , B/P 134 /56 , Respiratory Rate 20 , O2 SAT 96 , Room Air, O2 Flow Rate . Vital Sign Comment: [] EKG Rhythm: 1st deg HB Rhythm change?: N MD Notified?: Y -Dr Rufino COLEY Response: No New Orders Received Latest [place] Fall Score: 70 Fall Risk: High Risk Safety Measures: Call light Within Reach, Bed Alarm Zone 2, Side Rails Side Rails x2, Bed position Low and Locked. Fall Precautions: Yellow Gown Door Sign Patient Fall Education Report given to [Pending Rn assignment]. Addendum: 08/30/20 at 1927 by Adeola Huston RN Report given to Brock Hussein
--- NOTE | 2020-08-30 19:54 | NUR ---
NURSE NOTES: Pt received from VIKAS Mir. Pt is resting comfortably in bed and reports pain in site of removed PICC line; managed with rest and change in position. Pt is A/Ox2 and on bedrest; pt stays in bed and orient to ability. Pt is on cardiac monitoring SR APaced asymptomatic and MD aware with Pacemaker in LUpper Chest. Pt is breathing unlabored on RA. Pt has MAUREEN AV shunt active for use and receives dialysis MWF. Pt has RUChest Permacath. Bed is locked in lowest position and call light is within reach. Will continue to monitor. Pt is ready for Discharge.
[2020-08-30] MEDS ORDERED: Atorvastatin 20mg tab ORAL SCH (21:00)
[2020-08-30] MEDS ORDERED: Epoetin Alfa-EPBX(ESRD on dialysis)10,000 unit/ml vial SUBQ SCH (21:00)
--- NOTE | 2020-08-30 22:52 | NUR ---
NURSE NOTES: Pt discharged to [facility] EMT. Pt will return home. Vital Signs Stable.
--- NOTE | 2020-09-01 11:52 | Discharge Summary ---
Discharge Summary Discharge Summary _ DATE OF ADMISSION: 08/27/2020 08/30/2020 DATE OF DISCHARGE: [] DISCHARGED BY: Dr. Bill Luo REASON FOR ADMISSION: [] 70 years old male female with past medical history of end-stage renal disease, hemodialysis, CVA, with left-sided weakness, diabetes mellitus with diabetic nephropathy neuropathy, hyperlipidemia dementia anemia pacemaker paroxysmal atrial fibrillation, presented to with a generalized weakness. Patient apparently missed his dialysis appointment the day prior to presentation to ED. She denied headache vision changes. No fever or chills. No chest pain or shortness of breath. No back pain or abdominal pain she reported that she just did not feel like herself. Upon evaluation laboratory work-up revealed no leukocytosis hemoglobin 7.6 hematocrit 25 platelet count 242. Potassium 6.0. BUN 49, creatinine 7.7 glucose 93 troponin -0.032 albumin 3.1 proBNP above 35,000 EKG revealed atrial paced rhythm calcium insulin dextrose and Lasix patient remained hemodynamically stable and subsequently admitted to telemetry floor for further management prolonged AV conduction chest x-ray revealed pulmonary vascular congestion and fluid overload. Due to very poor IV access right femoral central line triple-lumen was placed in emergency department. Hyperkalemia CONSULTANTS: telephonic rn Dr. Kebede neurologist pulmonary Dr. Roe ID specialist GI specialist web press operator assistant Dr. Stephenson disease intervention specialist/oncologist surgery Dr. Cade psychiatrist HOSPITAL COURSE: [] Patient admitted to telemetry floor. Dialysis provided as per web press operator assistant recommendations close monitoring for volume. Recent echocardiogram revealed preserved ejection fraction for was sent. Anticoagulation with Eliquis continued. Patient remained in atrial paced rhythm. Aspirin and statin continued. Supplemental oxygen was on board as needed to keep pulse oximetry above 92%. Patient saturated well on the room air. GI prophylaxis provided. Antiplatelet therapy with aspirin and statin continued. GI prophylaxis provided. Eliquis scontineud . Patient was transfused with 2 units of packed red blood cells while in the hospital. Prior to discharge hemoglobin 11.6 hematocrit 25.9 patient was on Epogen hyperkalemia resolved prior to discharge BUN 38 creatinine 6.2 potassium 4.7 Patient clinically stabilized and was ready for discharge home FINAL DIAGNOSES: Hyperkalemia Missed hemodialysis Volume overload Acute on chronic anemia End-stage renal disease , on hemodialysis Hypertensive kidney disease Anemia of chronic kidney disease Pulmonary edema Hyperlipidemia Dementia History of CVA Pacemaker History of COPD Diabetes mellitus Deep tissue injury present on admission Patient presented on admission with a multiply pressure injury. Wound care provided as per surgeon recommendation nutrition optimized DISCHARGE MEDICATIONS: See Medication Reconciliation list. DISCHARGE INSTRUCTIONS: Patient was discharged home. Follow-up with a primary care provider in 1 week. I have been assigned to dictate discharge summary for this account. I was not involved in the patient's management. Cary Jarvis NP Sep 01, 2020 11:52
== END 2020-08-30 22:30 | disposition home or self-care (01) | DRG 640 ==
LOC: EDBD 15:11 → EMR 15:30 → 2E 16:30 → EDBEDREQSVC 19:42 → EDBEDREQ 20:57
PROC: 06HM33Z Insertion of Infusion Device into Right Femoral Vein, Percutaneous Approach (ICD-10-PCS; principal; 2020-08-27)
PROC: 30233N1 Transfusion of Nonautologous Red Blood Cells into Peripheral Vein, Percutaneous Approach (ICD-10-PCS; 2020-08-28)
PROC: 5A1D70Z Performance of Urinary Filtration, Intermittent, Less than 6 Hours Per Day (ICD-10-PCS; 2020-08-30)
DX: E87.5 Hyperkalemia (principal); L89.893 Pressure ulcer of other site, stage 3; N18.6 End stage renal disease; I12.0 Hypertensive chronic kidney disease with stage 5 chronic kidney disease or end stage renal disease; I69.354 Hemiplegia and hemiparesis following cerebral infarction affecting left non-dominant side; N17.9 Acute kidney failure, unspecified; I48.0 Paroxysmal atrial fibrillation; E11.22 Type 2 diabetes mellitus with diabetic chronic kidney disease; F03.90 Unspecified dementia, unspecified severity, without behavioral disturbance, psychotic disturbance, mood disturbance, and anxiety; L89.156 Pressure-induced deep tissue damage of sacral region; D63.1 Anemia in chronic kidney disease; E11.40 Type 2 diabetes mellitus with diabetic neuropathy, unspecified; Z95.0 Presence of cardiac pacemaker; E87.79 Other fluid overload; E78.5 Hyperlipidemia, unspecified; L89.96 Pressure-induced deep tissue damage of unspecified site; Z79.82 Long term (current) use of aspirin; J44.9 Chronic obstructive pulmonary disease, unspecified; Z88.0 Allergy status to penicillin; L89.620 Pressure ulcer of left heel, unstageable
CPT/HCPCS: 36415; 71045; 80048; 80053; 80061; 82607; 82728; 82746; 82977; 83036; 83540; 83550; 83735; 83880; 84100; 84443; 84484; 84550; 85007; 85025; 86140; 86850; 86900; 86901; 86920; 87081; 93005; 96374; 96375; 99291

== ENCOUNTER 2020-11-24 11:26 | Inpatient (IN) | payer MEDICARE, OTHER ==
[~2020-11-24] VITALS: Ht 162.6 cm; Wt 77.1 kg
[~2020-11-24 11:26] MED LIST changes: +ADALAT10 MG ORAL; +CATAPRES0.1 MG ORAL; +METOPROLOL SUC100 MG ORAL; +PANTOPRAZOLE SO40 MG ORAL; +PHENERGAN25 M1 ORAL
--- NOTE | 2020-11-24 11:50 | NUR ---
Patient presented to the ER with c/o chest discomfort and not feeling well prior to dialysis. She has a past medical history of end-stage renal disease, on hemodialysis [facility] , CV with left-sided weakness, diabetes mellitus with diabetic neuropathy, hyperlipidemia , dementia ,anemia , pacemaker to Left upper chest and paroxysmal atrial fibrillation. Double lumen port to upper right chest. She has bi-lat fistula to upper arms. She reported that her fistula to left upper arm recently stopped working so another was placed to right upper arm. Positive ascultation of bruit and positive palpation of thrill. Patient denies headache or vision changes. No fever, chills, chest pain or shorthness of breath.
--- NOTE | 2020-11-24 11:59 | Emergency Room Report ---
History of Present Illness General Chief Complaint: Chest Pain Source: Patient, EMS Present Illness HPI Patient was due to get dialysis today but started having chest pressure. This is associated with shortness of breath. She denies any fevers or productive cough. She had dialysis on Sunday which went well. Yesterday she had a pressure ulcer of her sacrum dressed by her doctor. She is not felt this way b efore. She denies having problems with her heart. Patient does not make urine. Patient denies exposure to Covid positive contacts. No fevers, chills, sore throat, palpitations, nausea, vomiting, diarrhea, abdominal pain, shortness of breath, joint pain, rashes, depression, anxiety, visual changes, dizziness, headache. 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 Worked for [employer] Reviewed Nursing Documentation: PMH: Agreed; PSxH: Agreed Nursing Documentation-[facility] Hx Cardiac Problems: Yes Hx Hypertension: Yes Hx Pacemaker: Yes Hx Asthma: Yes Hx COPD: Yes Hx Diabetes: Yes Hx Cancer: Yes Hx Gastrointestinal Problems: Yes Hx Dialysis: Yes - ESRD ON HD (MWF) Hx Neurological Problems: Yes Hx Cerebrovascular Accident: Yes - 1973 Hx Dementia: Yes Hx Weakness: Yes Review of Systems All Other Systems: negative except mentioned in HPI Physical Exam Vital Signs Date Time Temp Pulse Resp B/P (MAP) Pulse Ox O2 Delivery O2 Flow Rate FiO2 11/24/20 11:31 98.4 20 148/60 (89) 98 Room Air Sp02 EP Interpretation: reviewed, normal General Appearance: GCS 15, obese, Chronically Ill Head: normocephalic Eyes: bilateral eye normal inspection, bilateral eye PERRL, bilateral eye EOMI ENT: moist mucus membranes Neck: full range of motion, supple Respiratory: chest non-tender, lungs clear, normal breath sounds Cardiovascular #1: regular rate, rhythm, systolic murmur - 3/6, other - Failed shunts bilateral arms, edema - Trace bilaterally extremities Cardiovascular #2: 2+ radial (R) Gastrointestinal: normal bowel sounds, non tender, soft, non-distended, overweight Genitourinary: no CVA tenderness Musculoskeletal: back normal, decreased range of motion Neurologic: motor weakness - Left, sensory deficit - Left Psychiatric: mood/affect normal Skin: Decubitus/Ulcer - Sacrum is reported, warm/dry Medical Decision Making Diagnostic Impression: Primary Impression: Chest pressure Additional Impression: ESRD (end stage renal disease) on dialysis ER Course Patient presents with chest pressure. She has multiple risk factors. Differential includes acute myocardial infarction, pulmonary edema/congestive heart failure due to fluid overload, bronchitis, pneumonia, pulmonary embolus amongst others. Patient was due to have dialysis today. Evaluation with EKG, chest x-ray and labs. Patient treated with aspirin and nitroglycerin paste. Patient placed on a monitoring coordinator. EKG without injury. Chest x-ray Vas-Cath present no fluid overload. Labs remarkable for end-stage renal disease. Initial troponin negative. Elevated BNP. Negative lactic acid. Patient improved with treatment however due to the high risk factors patient needs admission for rule out of cardiac injury. Patient pressure in her chest is improved with treatment. Discussed with Dr. Banegas @ [phone] Vascular assess a problem. This was signed out to Dr. Elliott. Laboratory Tests Test 11/24/20 11:45 White Blood Count 5.2 K/UL (4.8-10.8) Red Blood Count 3.21 M/UL (4.20-5.40) L Hemoglobin 9.6 G/DL (12.0-16.0) L Hematocrit 31.2 % (37.0-47.0) L Mean Corpuscular Volume 97 FL (80-99) Mean Corpuscular Hemoglobin 29.8 PG (27.0-31.0) Mean Corpuscular Hemoglobin Concent 30.7 G/DL (32.0-36.0) L Red Cell Distribution Width 15.9 % (11.6-14.8) H Platelet Count 122 K/UL (150-450) L Mean Platelet Volume 7.7 FL (6.5-10.1) Neutrophils (%) (Auto) 55.2 % (45.0-75.0) Lymphocytes (%) (Auto) 30.0 % (20.0-45.0) Monocytes (%) (Auto) 10.0 % (1.0-10.0) Eosinophils (%) (Auto) 3.7 % (0.0-3.0) H Basophils (%) (Auto) 1.2 % (0.0-2.0) Prothrombin Time 11.4 SEC (9.30-11.50) Prothrombin Time INR 1.0 (0.9-1.1) Activated Partial Thromboplast Time 71 SEC (23-33) H D-Dimer 2.28 mg/L FEU (0.00-0.49) H Sodium Level 143 MMOL/L (136-145) Potassium Level 4.4 MMOL/L (3.5-5.1) Chloride Level 105 MMOL/L (98-107) Carbon Dioxide Level 30 MMOL/L (21-32) Anion Gap 8 mmol/L (5-15) Blood Urea Nitrogen 44 mg/dL (7-18) H Creatinine 5.2 MG/DL (0.55-1.30) H Estimated Glomerular Filtration Rate 9.9 mL/min (>60) Glucose Level 91 MG/DL (74-106) Lactic Acid Level 0.70 mmol/L (0.4-2.0) Calcium Level 9.4 MG/DL (8.5-10.1) Ferritin 1078 NG/ML (8-388) H Total Bilirubin 0.5 MG/DL (0.2-1.0) Aspartate Amino Transferase (AST) 14 U/L (15-37) L Alanine Aminotransferase (ALT) 9 U/L (12-78) L Alkaline Phosphatase 65 U/L (46-116) Lactate Dehydrogenase 206 U/L (81-234) Total Creatine Kinase 131 U/L (26-308) Troponin I 0.021 ng/mL (0.000-0.056) C-Reactive Protein, Quantitative 1.2 mg/dL (0.00-0.90) H Pro-B-Type Natriuretic Peptide 40550 pg/mL (0-125) H Total Protein 6.3 G/DL (6.4-8.2) L Albumin 2.7 G/DL (3.4-5.0) L Globulin 3.6 g/dL Albumin/Globulin Ratio 0.8 (1.0-2.7) L Lipase 116 U/L (73-393) Microbiology Date/Time Source Procedure Growth Status 11/24/20 15:10 Nasopharynx SARS-CoV-2 Antigen (Rapid)([facility]) - Final Complete EKG Diagnostic Results Troponin ordered: Yes Rate: other - paced Rhythm: other - paced ST Segments: no acute changes ASA given to the pt in ED: Yes Rhythm Strip Diag. Results EP Interpretation: yes Rhythm: NSR, no PVC's, no ectopy Chest X-Ray Diagnostic Results Chest X-Ray Diagnostic Results : Chest X-Ray Ordered: Yes # of Views/Limited/Complete: 1 View Indication: Chest Pain EP Interpretation: Yes Interpretation: no consolidation, no effusion, no pneumothorax, other - Vas- Cath right Impression: Other Electronically Signed by: Electronically signed by Benjamín Pastor MD Last Vital Signs Date Time Temp Pulse Resp B/P (MAP) Pulse Ox O2 Delivery O2 Flow Rate FiO2 11/24/20 12:18 146/51 11/24/20 12:07 98.4 82 16 100 11/24/20 12:07 Room Air 100 Status: improved Disposition: ADMITTED INPATIENT Condition: Serious Benjamín Pastor MD Nov 24, 2020 11:59
[2020-11-24] MEDS ORDERED: Nitroglycerin 2% oint pkt TOPIC ONE (12:00)
[2020-11-24 12:07] VITALS: BP 148/51
[2020-11-24 12:35] LABS: BASOPHILS % (AUTO) 1.2 % (0.0-2.0); EOSINOPHILS % (AUTO) 3.7 % (0.0-3.0); HEMATOCRIT 31.2 % (37.0-47.0); HEMOGLOBIN 9.6 G/DL (12.0-16.0); MEAN CORPUSCULAR VOLUME 97 FL (80-99); NEUTROPHILS % (AUTO) 55.2 % (45.0-75.0); PLATELET COUNT 122 K/UL (150-450); RED BLOOD COUNT 3.21 M/UL (4.20-5.40); RED CELL DISTRIBUTION WIDTH 15.9 % (11.6-14.8); WHITE BLOOD COUNT 5.2 K/UL (4.8-10.8)
[2020-11-24 12:56] LABS: ANION GAP 8 mmol/L (5-15); BLOOD UREA NITROGEN 44 mg/dL (7-18); CALCIUM 9.4 MG/DL (8.5-10.1); CARBON DIOXIDE 30 MMOL/L (21-32); CHLORIDE 105 MMOL/L (98-107); CREATININE 5.2 MG/DL (0.55-1.30); POTASSIUM 4.4 MMOL/L (3.5-5.1); SODIUM 143 MMOL/L (136-145)
[2020-11-24 13:00] VITALS: BP 126/69
[2020-11-24 13:12] LABS: ALANINE AMINOTRANSFERASE 9 U/L (12-78); ALBUMIN 2.7 G/DL (3.4-5.0); ALBUMIN/GLOBULIN RATIO 0.8 (1.0-2.7); ALKALINE PHOSPHATASE 65 U/L (46-116); ASPARTATE AMINO TRANSFERASE 14 U/L (15-37); BILIRUBIN,TOTAL 0.5 MG/DL (0.2-1.0); CREATINE KINASE 131 U/L (26-308); FERRITIN 1078 NG/ML (8-388); LACTATE DEHYDROGENASE 206 U/L (81-234)
--- NOTE | 2020-11-24 14:35 | NUR ---
Nurses note: call and give report to daniel Zavala RN, pending IV placement to tranfer pt to room. V/S stable under her conditon
[2020-11-24 15:05] VITALS: BP 132/51
--- NOTE | 2020-11-24 15:31 | Consultation ---
Consult Note Consult Note I am asked to evaluate the patient at the request of Dr. Banegas for dialysis management Chief Complaint: Chest Pain Patient was due to get dialysis today but started having chest pressure. This is associated with shortness of breath. She denies any fevers or productive cough. She had dialysis on Sunday which went well. Yesterday she had a pressure ulcer of her sacrum dressed by her doctor. She is not felt this way before. She denies having problems with her heart. Patient does not make urine. 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 Worked for [employer] Reviewed Nursing Documentation: PMH: Agreed; PSxH: Agreed Hx Cardiac Problems: Yes Hx Hypertension: Yes Hx Pacemaker: Yes Hx Asthma: Yes Hx COPD: Yes Hx Diabetes: Yes Hx Cancer: Yes Hx Gastrointestinal Problems: Yes Hx Dialysis: Yes - ESRD ON HD (MWF) Hx Neurological Problems: Yes Hx Cerebrovascular Accident: Yes - 1973 Hx Dementia: Yes Hx Weakness: Yes Vital Signs Date Time Temp Pulse Resp B/P (MAP) Pulse Ox O2 Delivery O2 Flow Rate FiO2 11/24/20 11:31 98.4 20 148/60 (89) 98 Room Air GENERAL: The patient is a very unfortunate 31-year-old female, who is seen in Cardiology consultation in no respiratory distress. Alert and oriented x4. HEENT: Atraumatic and normocephalic. Anicteric. Pupils are equal, round, and reactive to light and accommodation. Extraocular muscles intact. A conjunctival pallor is present. NECK: JVP cannot be assessed. A carotid upstroke is 2+ bilaterally. No carotid bruit. CARDIOVASCULAR: Normal S1, S2. Regular rate and rhythm. No murmurs, gallops, or rubs. PMI is at fourth intercostal space in the midclavicular line. LUNGS: Clear to auscultation bilaterally. ABDOMEN: Soft, nontender, and nondistended. No hepatosplenomegaly. Positive bowel sounds. EXTREMITIES: A 2+ bilateral lower extremity edema. Right PermCath in the anterior chest wall is also seen. . Assessment/Plan 70-year-old female with end-stage renal disease presents with chest pressure History of diabetes mellitus with nephropathy and neuropathy Previous CVA with left weakness Pacemaker paroxysmal atrial fibrillation Hypertension Hyperlipemia Anemia Allergy to penicillin Patient has normal right chest permacath however has right arm fistula which was used for the first time yesterday Continue per cardiology advice Keep the blood pressure blood sugar in check Hemodialysis in a.m. Per orders Manas Stephenson MD Nov 24, 2020 15:31
[2020-11-24] MEDS ORDERED: HYDROcodone/Acetamin 5/325 tab ORAL PRN (15:45)
--- NOTE | 2020-11-24 15:45 | NUR ---
Nurses note: pt still pending for IV access.
[2020-11-24] MEDS: Nitroglycerin Patch 0.4mg TDERMAL SCH (16:00)
--- NOTE | 2020-11-24 16:46 | Diagnostic Imaging Report ---
Indication: Chest pain Technique: One view of the chest Comparison: 08/27/2020 Findings: Inspiration is suboptimal. The heart is borderline enlarged. There is a right jugular tunneled dialysis catheter and a left chest pacemaker. Venous stent is seen in the right axilla. There is borderline interstitial congestion, similar to the previous exam No significant change Impression: Borderline cardiomegaly. Equivocal mild interstitial congestion-groin clinical findings
--- NOTE | 2020-11-24 17:05 | Consultation ---
Consult Note Consult Note DATE OF CONSULTATION: 11/24/2020 CONSULTING PHYSICIAN: Suraj Roe MD. ATTENDING PHYSICIAN: Dr. Banegas REASON FOR CONSULTATION: Hypoxia, respiratory distress HISTORY OF PRESENT ILLNESS: This is a 70-year-old female with past medical history of hypertension, stroke, and end-stage renal disease on dialysis, who presented to the ED for evaluation of chest pressure this morning. Patient sat up from bed this morning and started having chest pressure that lasted minutes without any intervention. It was her first time experiencing this type of chest pressure. Patient reports that she is a dialysis patient but missed her dialysis appointment today. She denied making any urine today. Patient tested negative for COVID-19 in the ER. The chest x-ray shows mild interstitial congestion. She was given aspirin and nitroglycerin in ER and is awaiting admission to the hospital. PAST MEDICAL HISTORY: Hypertension, pacemaker, asthma, COPD, diabetes, cancer, ESRD on hemodialysis, CVA, dementia MEDICATIONS: Acetaminophen, Eliquis, ascorbic acid, aspirin, atorvastatin, calcium, clonidine, docusate, ferrous sulfate, gabapentin, hydralazine, hydrocodone, magnesium oxide, metoprolol, triple antibiotic ointment, n ifedipine, omega-3, pantoprazole, promethazine, sevelamer, coenzyme Q 10 ALLERGIES: Penicillin FAMILY HISTORY: Unknown PERSONAL/SOCIAL HISTORY: Patient lives at home with her daughter REVIEW OF SYSTEMS: Negative except mentioned in HPI PHYSICAL EXAMINATION: VITAL SIGNS: Blood pressure 146/51, heart rate 80, respiratory rate 16, weight 77 kg, height 163 cm. General: Patient laying in bed, NAD, normal work of breathing on room air HEENT: Head exam reveals that the head is normocephalic, atraumatic without deformity or unusual swelling. Pupils are PERRLA. CHEST AND LUNGS: Reveals clear, normal, symmetrical breath sounds with no adventitious sounds. CARDIOVASCULAR: Reveals normal S1, S2 without murmurs, rubs, or clicks. ABDOMEN: Soft with no tenderness or organomegaly. RECTAL: Deferred. MUSCULOSKELETAL: There is no tenderness to palpation. Range of motion is normal. NEUROLOGICAL: Alert and oriented x3 , nonfocal LABORATORY DATA: Laboratory testing shows hemoglobin 9.6, hematocrit 31.2. Chemistries show BUN 44, creatinine 5.2 D-dimer 2.28 Assessment/Plan 1. Hypertension, likely secondary to #8 2. Anemia, likely secondary to #8 3. Hypoxic respiratory distress; resolved -COVID-19 negative -Currently saturating well on room air -Provide supplemental oxygen as needed 4. History of asthma -Patient reports distant history of asthma and denies using any inhalers within the past few years 5. History of COPD -Patient denies use of home oxygen -Provide supplemental oxygen as needed 6. Elevated D-dimer -We will order venous duplex ultrasound of legs; order SCD if negative -Her home medications include Eliquis; continue Eliquis 7. ESRD on dialysis - nephro following The care for this patient was discussed with my supervising physician. Time spent for this case was approximately 31 minutes. Navin Morse Nov 24, 2020 17:05
[2020-11-24 18:00] VITALS: BP 141/51
[2020-11-24] MEDS: Eliquis 2.5mg tablet ORAL SCH (18:00)
[2020-11-24] MEDS: Docusate 100mg cap ORAL SCH (18:00)
[2020-11-24] MEDS: Renvela 800mg Pkt ORAL SCH (18:00)
--- NOTE | 2020-11-24 19:11 | NUR ---
Nurses note: report given to assayer helper nurses. pending central line and 1800 medication. provider in room, for procedure at this time
[2020-11-24] MEDS ORDERED: Lidocaine 1% Plain 30 ml INJ ONE (19:30)
--- NOTE | 2020-11-24 20:10 | Consultation ---
History of Present Illness General Chief Complaint: Chest Pain Referring physician: Dr. Banegas Present Illness HPI 70-year-old female with past medical history of hypertension, stroke, and end- stage renal disease on dialysis, who presented to the ED for evaluation of chest pressure this morning. Patient sat up from bed this morning and started having chest pressure that lasted minutes without any intervention. It was her first time experiencing this type of chest pressure. Patient reports that she is a dialysis patient but missed her dialysis appointment today. She denied making any urine today. Patient tested negative for COVID-19 in the ER. The chest x- ray shows mild interstitial congestion. She was given aspirin and nitroglycerin in ER Allergies: Coded Allergies: PENICILLINS (Verified Allergy, Unknown, 04/23/20) Tolerated Cefepime 04/23/20 Medication History Scheduled Amiodarone Hcl* (Cordarone*), 200 MG ORAL DAILY, (Reported) Apixaban (Eliquis*), 2.5 MG ORAL BID, (Reported) Ascorbic Acid* (Vitamin C*), 1,000 MG ORAL THREE TIMES A WEEK, (Reported) Aspirin* (Aspirin*), 81 MG ORAL DAILY, (Reported) Atorvastatin Calcium* (Atorvastatin Calcium*), 20 MG ORAL BEDTIME, (Reported) Calcium Acetate (Calcium Acetate), 667 MG PO TID, (Reported) Clonidine Hcl* (Catapres*), 0.1 MG ORAL EVERY 6 HOURS, (Reported) Docusate Sodium* (Docusate Sodium*), 100 MG ORAL TWICE A DAY, (Reported) Ferrous Sulfate* (Ferrous Sulfate*), 325 MG ORAL DAILY, (Reported) Gabapentin (Neurontin), 300 MG ORAL THREE TIMES A DAY, (Reported) Hydralazine Hcl* (Hydralazine Hcl*), 25 MG ORAL EVERY 8 HOURS, (Reported) Lisinopril* (Lisinopril*), 10 MG ORAL DAILY, (Reported) Magnesium Oxide (Magnesium), 250 MG PO THREE TIMES A WEEK, (Reported) Metoprolol Succinate* (Metoprolol Succinate*), 100 MG ORAL DAILY, (Reported) Neomycin/Polymyxin/Bacitracin* (Triple Antibiotic Ointment*), 30 GM TOPIC DAILY, (Reported) Nifedipine (Nifedipine*), 60 MG ORAL EVERY 8 HOURS, (Reported) [place]-3 Fatty Acids/Fish Oil ([place] 3 Fish Oil Softgel), 250 MG PO THREE TIMES A WEEK, (Reported) Pantoprazole* (Pantoprazole*), 40 MG ORAL DAILY, (Reported) Promethazine Hcl* (Phenergan*), 25 MG ORAL Q6H, (Reported) Sevelamer Carbonate* (Renvela*), 800 MG ORAL THREE TIMES A DAY, (Reported) Ubidecarenone (Coenzyme Q10), 250 MG PO THREE TIMES A WEEK, (Reported) Scheduled PRN Acetaminophen* (Acetaminophen 325MG Tablet*), 650 MG ORAL Q4H PRN for For Pain, (Reported) Hydrocodone Bit/Acetaminophen 5-325* ([place] 5-325*), 1 TAB ORAL Q4H PRN for For Pain, (Reported) Discontinued Medications Gabapentin* (Gabapentin*), 100 MG ORAL TID, (Reported) Discontinued Reason: Prescription changed Patient History Healthcare decision maker Resuscitation status Advanced Directive on File Physical Exam Last 24 Hour Vital Signs Date Time Temp Pulse Resp B/P (MAP) Pulse Ox O2 Delivery O2 Flow Rate FiO2 11/24/20 18:00 66 16 141/51 98 Room Air 11/24/20 15:05 58 16 132/51 95 Room Air 11/24/20 13:00 56 20 126/69 95 Room Air 11/24/20 12:18 146/51 11/24/20 12:07 98.4 82 16 148/51 100 11/24/20 12:07 80 14 Room Air 100 11/24/20 11:31 98.4 20 148/60 (89) 98 Room Air Laboratory Tests Test 11/24/20 11:45 White Blood Count 5.2 K/UL (4.8-10.8) Red Blood Count 3.21 M/UL (4.20-5.40) L Hemoglobin 9.6 G/DL (12.0-16.0) L Hematocrit 31.2 % (37.0-47.0) L Mean Corpuscular Volume 97 FL (80-99) Mean Corpuscular Hemoglobin 29.8 PG (27.0-31.0) Mean Corpuscular Hemoglobin Concent 30.7 G/DL (32.0-36.0) L Red Cell Distribution Width 15.9 % (11.6-14.8) H Platelet Count 122 K/UL (150-450) L Mean Platelet Volume 7.7 FL (6.5-10.1) Neutrophils (%) (Auto) 55.2 % (45.0-75.0) Lymphocytes (%) (Auto) 30.0 % (20.0-45.0) Monocytes (%) (Auto) 10.0 % (1.0-10.0) Eosinophils (%) (Auto) 3.7 % (0.0-3.0) H Basophils (%) (Auto) 1.2 % (0.0-2.0) Prothrombin Time 11.4 SEC (9.30-11.50) Prothromb Time International Ratio 1.0 (0.9-1.1) Activated Partial Thromboplast Time 71 SEC (23-33) H D-Dimer 2.28 mg/L FEU (0.00-0.49) H Sodium Level 143 MMOL/L (136-145) Potassium Level 4.4 MMOL/L (3.5-5.1) Chloride Level 105 MMOL/L (98-107) Carbon Dioxide Level 30 MMOL/L (21-32) Anion Gap 8 mmol/L (5-15) Blood Urea Nitrogen 44 mg/dL (7-18) H Creatinine 5.2 MG/DL (0.55-1.30) H Estimat Glomerular Filtration Rate 9.9 mL/min (>60) Glucose Level 91 MG/DL (74-106) Lactic Acid Level 0.70 mmol/L (0.4-2.0) Calcium Level 9.4 MG/DL (8.5-10.1) Ferritin 1078 NG/ML (8-388) H Total Bilirubin 0.5 MG/DL (0.2-1.0) Aspartate Amino Transf (AST/SGOT) 14 U/L (15-37) L Alanine Aminotransferase (ALT/SGPT) 9 U/L (12-78) L Alkaline Phosphatase 65 U/L (46-116) Lactate Dehydrogenase 206 U/L (81-234) Total Creatine Kinase 131 U/L (26-308) Troponin I 0.021 ng/mL (0.000-0.056) C-Reactive Protein, Quantitative 1.2 mg/dL (0.00-0.90) H Pro-B-Type Natriuretic Peptide 93183 pg/mL (0-125) H Total Protein 6.3 G/DL (6.4-8.2) L Albumin 2.7 G/DL (3.4-5.0) L Globulin 3.6 g/dL Albumin/Globulin Ratio 0.8 (1.0-2.7) L Lipase 116 U/L (73-393) Microbiology Date/Time Source Procedure Growth Status 11/24/20 15:10 Nasopharynx SARS-CoV-2 Antigen (Rapid)([facility]) - Final Complete Height (Feet): 5 Height (Inches): 4.00 Weight (Pounds): 170 Medications Current Medications Medications (Trade) Dose Ordered Sig/Jesus Route PRN Reason Start Time Stop Time Status Last Admin Dose Admin Acetaminophen (Tylenol) 650 mg Q4H PRN ORAL Mild Pain (Pain Scale 1-3) 11/24/20 15:45 12/24/20 15:44 Acetaminophen/ Hydrocodone Bitart ([place] 5/325) 1 tab Q4H PRN ORAL PAIN 4-10 11/24/20 15:45 12/01/20 15:44 Apixaban (Eliquis) 2.5 mg BID ORAL 11/24/20 18:00 02/22/21 17:59 Aspirin (ASA) 81 mg DAILY ORAL 11/25/20 09:00 01/09/21 08:59 Atorvastatin Calcium (Lipitor) 20 mg BEDTIME ORAL 11/24/20 21:00 02/22/21 20:59 Calcium Acetate (Phoslo) 667 mg TID ORAL 11/24/20 18:00 02/22/21 17:59 Docusate Sodium (Colace) 100 mg TID ORAL 11/24/20 18:00 12/24/20 17:59 Gabapentin (Neurontin) 100 mg TID ORAL 11/24/20 18:00 12/24/20 17:59 Hydralazine HCl (Apresoline) 25 mg EVERY 8 HOURS ORAL 11/24/20 22:00 02/22/21 21:59 Metoprolol Tartrate (Lopressor) 25 mg Q12HR ORAL 11/24/20 21:00 02/22/21 20:59 Nitroglycerin (Ntg) 1 patch Q24H TDERMAL 11/24/20 16:00 12/24/20 15:59 Pantoprazole (Protonix) 40 mg DAILY ORAL 11/25/20 09:00 12/25/20 08:59 Sevelamer Carbonate (Renvela) 800 mg THREE TIMES A DAY ORAL 11/24/20 18:00 02/22/21 17:59 Assessment/Plan Status: stable Assessment/Plan: 1. ESRD on HD 2. Chest pain 3. HFpEF, chronic diastolic HF with preserved EF 55% 4. h/o CVA 5. HTN CXR clear lungs, echo shows well preserved LV function EF 55%. Pt will have dialysis. Further recs to follow. Luda Petty PA-C Nov 24, 2020 20:10
--- NOTE | 2020-11-24 20:22 | Emergency Room Report ---
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 COVID-19 Screening: Negative COVID-19 COVID-19 Testing Source: nasal Nursing Documentation-PMH Hx Cardiac Problems: Yes Hx Hypertension: Yes Hx Pacemaker: Yes Hx Asthma: No Hx COPD: No Hx Diabetes: Yes Hx Cancer: No Hx Gastrointestinal Problems: Yes Hx Dialysis: Yes History Of Psychiatric Problem: No Hx Neurological Problems: No Hx Cerebrovascular Accident: No Hx Dementia: Yes Hx Seizures: No Hx Weakness: Yes Physical Exam Vital Signs Date Time Temp Pulse Resp B/P (MAP) Pulse Ox O2 Delivery O2 Flow Rate FiO2 11/24/20 11:31 98.4 20 148/60 (89) 98 Room Air 11/24/20 12:07 80 100 Procedures Central Line Central Line : Consent: Verbal Central Line Lumen: triple Maximal Sterile Barrier Tech: yes cap, yes mask, yes sterile gown, yes sterile gloves, yes large sterile sheet, yes hand hygiene, yes chlorhexidine prep Central Line Postion: internal jugular (L) Anesthesia: Lidocaine US Guided Line?: Yes Vessel visualized with U/S: Left Internal Jugular Ultrasound Findings: Collapsible Vessel, Vessel Patent, Color flow present, Visualize vessel puncture Complications: none Central Line Post Position: sutured, good blood return Attempts: One Patient Tolerated: Well Complications: None Medical Decision Making Diagnostic Impression: Primary Impression: Chest pressure Additional Impression: ESRD (end stage renal disease) on dialysis Last Vital Signs Date Time Temp Pulse Resp B/P (MAP) Pulse Ox O2 Delivery O2 Flow Rate FiO2 11/24/20 18:00 66 16 141/51 98 Room Air 11/24/20 12:07 98.4 11/24/20 12:07 100 Disposition: ADMITTED INPATIENT Condition: Serious Referrals: Danie Banegas MD (PCP) Wil Elliott M.D. Nov 24, 2020 20:22
[2020-11-24] MEDS: Atorvastatin 20mg tab ORAL SCH (22:25)
[2020-11-24 22:29] VITALS: BP 160/61
[2020-11-24] MEDS: HydrALAZINE 25mg tab ORAL SCH (22:29)
--- NOTE | 2020-11-24 22:50 | NUR ---
NURSE NOTES: Patient admitted to Telemetry floor from ED. Patient is awake and alert x2-3. On room air with no signs of distress. Oxygen 99%. Placed on traffic monitor specialist. Patient is sinus rhythm w/ 1st degree HB; CRISTOBAL pacemaker - A-paced. Patient is bedbound. Sacral stage 2 noted, and L heel unstageable. WCP taken. Patient had Left ij triple lumen cath placed in ED; presented to the floor still bleeding from the site - Pressure and ABD applied. Will continue to reassess the site. owner oral surgeon and MD aware. Belongings accounted for. Purewick applied. Bed locked and in lowest position. Call light in reach. Bed alarm on. Spoke w/Dr. Banegas. Admission orders received. Will follow plan of care.
[2020-11-24] MEDS ORDERED: Promethazine 25mg tab ORAL PRN (23:45)
[2020-11-25] VITALS: BP 113/68
[2020-11-25 04:00] VITALS: BP 120/72
[2020-11-25] MEDS ORDERED: Tranexamic Acid 500 MG in NS 55 ML IVPB ONE (04:00)
--- NOTE | 2020-11-25 04:32 | NUR ---
NURSE NOTES: ER MD at bedside to assess the central line site and minimize bleeding. Dressing has been changed by MD as well. OK to use central line per MD.
[2020-11-25] MEDS: HydrALAZINE 25mg tab ORAL SCH ×3 (05:06→22:00)
[2020-11-25 06:07] LABS: BASOPHILS % (AUTO) 1.5 % (0.0-2.0); EOSINOPHILS % (AUTO) 4.3 % (0.0-3.0); HEMOGLOBIN 10.9 G/DL (12.0-16.0); LYMPHOCYTES % (AUTO) 22.9 % (20.0-45.0); MEAN CORPUSCULAR VOLUME 96 FL (80-99); NEUTROPHILS % (AUTO) 62.4 % (45.0-75.0); PLATELET COUNT 162 K/UL (150-450); RED BLOOD COUNT 3.64 M/UL (4.20-5.40); RED CELL DISTRIBUTION WIDTH 15.9 % (11.6-14.8); WHITE BLOOD COUNT 6.6 K/UL (4.8-10.8)
[2020-11-25 06:33] LABS: ALANINE AMINOTRANSFERASE 8 U/L (12-78); ALBUMIN 2.8 G/DL (3.4-5.0); ALBUMIN/GLOBULIN RATIO 0.8 (1.0-2.7); ALKALINE PHOSPHATASE 70 U/L (46-116); ANION GAP 8 mmol/L (5-15); ASPARTATE AMINO TRANSFERASE 9 U/L (15-37); BILIRUBIN,TOTAL 0.5 MG/DL (0.2-1.0); BLOOD UREA NITROGEN 49 mg/dL (7-18); CALCIUM 9.5 MG/DL (8.5-10.1); CARBON DIOXIDE 30 MMOL/L (21-32); CHLORIDE 105 MMOL/L (98-107); CHOLESTEROL 222 MG/DL (< 200); CREATININE 6.2 MG/DL (0.55-1.30); GAMMA GLUTAMYL TRANSPEPTIDASE 10 U/L (5-85); HDL CHOLESTEROL 51 MG/DL (40-60); PHOSPHORUS 3.4 MG/DL (2.5-4.9); POTASSIUM 4.4 MMOL/L (3.5-5.1); SODIUM 143 MMOL/L (136-145); TRIGLYCERIDES 88 MG/DL (30-150)
--- NOTE | 2020-11-25 07:28 | NUR ---
NURSE HAND-OFF REPORT: Important Events on Shift: Admission, Central line placement, 2D echo and VD for 11/25 Patient Status: Stable Diet: Renal, CCHO (soft easy chew) Pending Orders: 2D echo, denisse duplex Pending Results/Labs: AM labs Pending notification: Latest Vital Signs: Temperature 98.2 , Pulse 60 , B/P 120 /72 , Respiratory Rate 20 , O2 SAT 96 , Room Air, O2 Flow Rate . Vital Sign Comment: [] EKG Rhythm: SR w/1st degree AVB Rhythm change?: N Notified?: N -Dr. Makenzie COLEY Response: Latest Srivastava Fall Score: 70 Fall Risk: High Risk Safety Measures: Call light Within Reach, Bed Alarm Zone 1, Side Rails Side Rails x3, Bed position Low and Locked. Fall Precautions: Yellow Socks Patient Fall Education Report given to VIKAS Arambula.
--- NOTE | 2020-11-25 07:51 | NUR ---
NURSE NOTES: Report received from Elizabeth BEAN. Patient seen on rounds, awake and eating breakfast, not in acute distress, no complaints of chest pain. Central line noted over left IJ, no signs of bleeding or infiltration. Pt has left upper chest pacemaker. Right chest permacath noted with dressing intact for dialysis access. Bed low and locked, siderails up x2, call light placed within reach and instructed to call nurse for assistance. Will continue to monitor.
[2020-11-25 08:00] VITALS: BP 135/69
[2020-11-25] MEDS: Aspirin Baby 81mg ORAL SCH (08:35)
[2020-11-25] MEDS: Renvela 800mg Pkt ORAL SCH ×3 (08:47→17:32)
[2020-11-25] MEDS: Docusate 100mg cap ORAL SCH ×3 (08:47→17:32)
[2020-11-25] MEDS: Eliquis 2.5mg tablet ORAL SCH ×2 (08:47→17:32)
--- NOTE | 2020-11-25 09:03 | NUR ---
CASE MANAGEMENT:REVIEW 70 YR OLD FEMALE CC: CHEST PAIN PMH: ESRD SI: CHEST PRESSURE. ESRD ON HD 98.4 20 148/60 98% ON RA H/H-10.9/35.0 BUN+44 CR+5.2 D-DIMER+2.28 IS: ASA PO NITRO 1' CHEST XRAY BLOOD CX : TO TELEMETRY DCP: FROM HOME
--- NOTE | 2020-11-25 10:07 | Consultation ---
History of Present Illness General Date patient seen: Nov 25, 2020 Reason for Hospitalization: Chest Pain Present Illness HPI This is a 70-year-old female well-known to me from prior admissions are cared for in the past that been doing fairly well recovering was recently stressed to have dialysis unfortunately began to have chest pressure and discomfort was brought to ligamentous care for evaluation which time she was admitted further care and management. On admission identified to have abnormal labs worsening decubitus formation in the sacrum and buttock with breakdown as well as some ischemia noticed in the toes and some pain in heel concerns. Surgery called to evaluate assist with care patient seen patient evaluated, chart reviewed Allergies: Coded Allergies: PENICILLINS (Verified Allergy, Unknown, 04/23/20) Tolerated Cefepime 04/23/20 COVID-19 Screening Contact w/high risk pt: No Recent Travel to affected area: No Experienced COVID-19 symptoms?: No Medication History Scheduled Amiodarone Hcl* (Cordarone*), 200 MG ORAL DAILY, (Reported) Apixaban (Eliquis*), 2.5 MG ORAL BID, (Reported) Ascorbic Acid* (Vitamin C*), 1,000 MG ORAL THREE TIMES A WEEK, (Reported) Aspirin* (Aspirin*), 81 MG ORAL DAILY, (Reported) Atorvastatin Calcium* (Atorvastatin Calcium*), 20 MG ORAL BEDTIME, (Reported) Calcium Acetate (Calcium Acetate), 667 MG PO TID, (Reported) Clonidine Hcl* (Catapres*), 0.1 MG ORAL EVERY 6 HOURS, (Reported) Docusate Sodium* (Docusate Sodium*), 100 MG ORAL TWICE A DAY, (Reported) Ferrous Sulfate* (Ferrous Sulfate*), 325 MG ORAL DAILY, (Reported) Gabapentin (Neurontin), 300 MG ORAL THREE TIMES A DAY, (Reported) Hydralazine Hcl* (Hydralazine Hcl*), 25 MG ORAL EVERY 8 HOURS, (Reported) Lisinopril* (Lisinopril*), 10 MG ORAL DAILY, (Reported) Magnesium Oxide (Magnesium), 250 MG PO THREE TIMES A WEEK, (Reported) Metoprolol Succinate* (Metoprolol Succinate*), 100 MG ORAL DAILY, (Reported) Neomycin/Polymyxin/Bacitracin* (Triple Antibiotic Ointment*), 30 GM TOPIC DAILY, (Reported) Nifedipine (Nifedipine*), 60 MG ORAL EVERY 8 HOURS, (Reported) [place]-3 Fatty Acids/Fish Oil ([place] 3 Fish Oil Softgel), 250 MG PO THREE TIMES A WEEK, (Reported) Pantoprazole* (Pantoprazole*), 40 MG ORAL DAILY, (Reported) Promethazine Hcl* (Phenergan*), 25 MG ORAL Q6H, (Reported) Sevelamer Carbonate* (Renvela*), 800 MG ORAL THREE TIMES A DAY, (Reported) Ubidecarenone (Coenzyme Q10), 250 MG PO THREE TIMES A WEEK, (Reported) Scheduled PRN Acetaminophen* (Acetaminophen 325MG Tablet*), 650 MG ORAL Q4H PRN for For Pain, (Reported) Hydrocodone Bit/Acetaminophen 5-325* (Pharr 5-325*), 1 TAB ORAL Q4H PRN for For Pain, (Reported) Discontinued Medications Gabapentin* (Gabapentin*), 100 MG ORAL TID, (Reported) Discontinued Reason: Prescription changed Patient History Limited by: medical condition History Provided By: Patient, Medical Record, PMD Healthcare decision maker Resuscitation status Advanced Directive on File Past Medical/Surgical History Past Medical/Surgical History: (1) Episode of generalized weakness (2) COPD (chronic obstructive pulmonary disease) (3) Hyperkalemia (4) Bradycardia (5) Diabetic nephropathy (6) Diabetic nephropathy (7) Pacemaker (8) Hypertensive kidney disease (9) History of atrial fibrillation (10) History of CVA (cerebrovascular accident) (11) Volume overload (12) Cellulitis of left foot (13) Heel abrasion (14) Anemia in chronic kidney disease (CKD) (15) Elevated troponin I level (16) Urinary tract infection due to Proteus (17) Deep tissue injury (18) Generalized weakness (19) ESRD (end stage renal disease) (20) Chest pressure (21) ESRD (end stage renal disease) on dialysis (22) Dyspnea (23) Symptomatic anemia (24) Acute on chronic renal failure (25) Anemia (26) HTN (hypertension) Review of Systems Review of Symptoms General ROS: no weight loss or fever Psychological ROS: no depression or mood changes, no memory loss Ophthalmic ROS: no visual changes or eye irritation ENT ROS: no nasal congestion, hearing loss, dizziness Allergy and Immunology ROS: no allergic symptoms or urticaria Hematological and Lymphatic ROS: no swollen glands, unusual bleeding or bruising Endocrine ROS: no polyuria, polydipsia, weight changes, temperature intolerance Respiratory ROS: no cough, shortness of breath, or wheezing Cardiovascular ROS: no chest pain or dyspnea on exertion Gastrointestinal ROS: denies abdominal pain, bright red blood in stool. Musculoskeletal ROS: no myalgias or arthralgias Neurological ROS: no TIA or stroke symptoms Dermatological ROS: no new or changing skin lesions, rashes or pruritis Physical Exam Physical Exam General appearance: alert, cooperative, no distress, appears stated age Head: Normocephalic, without obvious abnormality, atraumatic Eyes: conjunctivae/corneas clear. PERRL, EOM's intact. Fundi benign Throat: Lips, mucosa, and tongue normal. Teeth and gums normal Neck: supple, symmetrical, trachea midline, no adenopathy, thyroid: not enlarged, symmetric, no tenderness/mass/nodules, no carotid bruit and no JVD Lungs: clear to auscultation bilaterally Heart: regular rate and rhythm, S1, S2 normal, no murmur, click, rub or gallop Abdomen: soft, non-tender. Bowel sounds normal. No masses, no organomegaly Extremities: extremities as below Pulses: dec and symmetric Skin: Skin see below Neurologic: Grossly normal Last 24 Hour Vital Signs Date Time Temp Pulse Resp B/P (MAP) Pulse Ox O2 Delivery O2 Flow Rate FiO2 11/25/20 09:00 Room Air 11/25/20 08:47 61 135/69 11/25/20 05:06 120/72 11/25/20 04:00 98.2 60 20 120/72 (88) 96 11/25/20 03:07 60 11/25/20 00:00 97.9 62 22 113/68 (83) 92 11/24/20 23:00 60 11/24/20 22:39 Room Air 11/24/20 22:29 98.0 60 18 160/61 (94) 100 11/24/20 22:29 160/61 11/24/20 22:25 60 160/61 11/24/20 21:58 60 11/24/20 19:15 98.4 66 16 141/51 98 Room Air 100 58 11/24/20 18:00 66 16 141/51 98 Room Air 11/24/20 15:05 58 16 132/51 95 Room Air 11/24/20 13:00 56 20 126/69 95 Room Air 11/24/20 12:18 146/51 11/24/20 12:07 98.4 82 16 148/51 100 11/24/20 12:07 80 14 Room Air 100 11/24/20 11:31 98.4 20 148/60 (89) 98 Room Air Intake and Output 11/24/20 11/25/20 19:00 07:00 Intake Total 480 ml Balance 480 ml Intake Oral 480 ml Laboratory Tests Test 11/24/20 11:45 11/25/20 05:55 White Blood Count 5.2 K/UL (4.8-10.8) 6.6 K/UL (4.8-10.8) Red Blood Count 3.21 M/UL (4.20-5.40) L 3.64 M/UL (4.20-5.40) L Hemoglobin 9.6 G/DL (12.0-16.0) L 10.9 G/DL (12.0-16.0) L Hematocrit 31.2 % (37.0-47.0) L 35.0 % (37.0-47.0) L Mean Corpuscular Volume 97 FL (80-99) 96 FL (80-99) Mean Corpuscular Hemoglobin 29.8 PG (27.0-31.0) 29.9 PG (27.0-31.0) Mean Corpuscular Hemoglobin Concent 30.7 G/DL (32.0-36.0) L 31.1 G/DL (32.0-36.0) L Red Cell Distribution Width 15.9 % (11.6-14.8) H 15.9 % (11.6-14.8) H Platelet Count 122 K/UL (150-450) L 162 K/UL (150-450) Mean Platelet Volume 7.7 FL (6.5-10.1) 7.5 FL (6.5-10.1) Neutrophils (%) (Auto) 55.2 % (45.0-75.0) 62.4 % (45.0-75.0) Lymphocytes (%) (Auto) 30.0 % (20.0-45.0) 22.9 % (20.0-45.0) Monocytes (%) (Auto) 10.0 % (1.0-10.0) 9.0 % (1.0-10.0) Eosinophils (%) (Auto) 3.7 % (0.0-3.0) H 4.3 % (0.0-3.0) H Basophils (%) (Auto) 1.2 % (0.0-2.0) 1.5 % (0.0-2.0) Prothrombin Time 11.4 SEC (9.30-11.50) Prothromb Time International Ratio 1.0 (0.9-1.1) Activated Partial Thromboplast Time 71 SEC (23-33) H D-Dimer 2.28 mg/L FEU (0.00-0.49) H Sodium Level 143 MMOL/L (136-145) 143 MMOL/L (136-145) Potassium Level 4.4 MMOL/L (3.5-5.1) 4.4 MMOL/L (3.5-5.1) Chloride Level 105 MMOL/L (98-107) 105 MMOL/L (98-107) Carbon Dioxide Level 30 MMOL/L (21-32) 30 MMOL/L (21-32) Anion Gap 8 mmol/L (5-15) 8 mmol/L (5-15) Blood Urea Nitrogen 44 mg/dL (7-18) H 49 mg/dL (7-18) H Creatinine 5.2 MG/DL (0.55-1.30) H 6.2 MG/DL (0.55-1.30) H Estimat Glomerular Filtration Rate 9.9 mL/min (>60) 8.0 mL/min (>60) Glucose Level 91 MG/DL (74-106) 111 MG/DL (74-106) H Lactic Acid Level 0.70 mmol/L (0.4-2.0) Calcium Level 9.4 MG/DL (8.5-10.1) 9.5 MG/DL (8.5-10.1) Ferritin 1078 NG/ML (8-388) H Total Bilirubin 0.5 MG/DL (0.2-1.0) 0.5 MG/DL (0.2-1.0) Aspartate Amino Transf (AST/SGOT) 14 U/L (15-37) L 9 U/L (15-37) L Alanine Aminotransferase (ALT/SGPT) 9 U/L (12-78) L 8 U/L (12-78) L Alkaline Phosphatase 65 U/L (46-116) 70 U/L (46-116) Lactate Dehydrogenase 206 U/L (81-234) Total Creatine Kinase 131 U/L (26-308) Troponin I 0.021 ng/mL (0.000-0.056) 0.011 ng/mL (0.000-0.056) C-Reactive Protein, Quantitative 1.2 mg/dL (0.00-0.90) H 1.3 mg/dL (0.00-0.90) H Pro-B-Type Natriuretic Peptide 24148 pg/mL (0-125) H 8845 pg/mL (0-125) H Total Protein 6.3 G/DL (6.4-8.2) L 6.4 G/DL (6.4-8.2) Albumin 2.7 G/DL (3.4-5.0) L 2.8 G/DL (3.4-5.0) L Globulin 3.6 g/dL 3.6 g/dL Albumin/Globulin Ratio 0.8 (1.0-2.7) L 0.8 (1.0-2.7) L Lipase 116 U/L (73-393) Hemoglobin A1c 5.7 % (4.3-6.0) Uric Acid 4.4 MG/DL (2.6-7.2) Phosphorus Level 3.4 MG/DL (2.5-4.9) Magnesium Level 3.1 MG/DL (1.8-2.4) H Gamma Glutamyl Transpeptidase 10 U/L (5-85) Triglycerides Level 88 MG/DL (30-150) Cholesterol Level 222 MG/DL (< 200) H LDL Cholesterol 138 mg/dL (<100) H HDL Cholesterol 51 MG/DL (40-60) Cholesterol/HDL Ratio 4.4 (3.3-4.4) Thyroid Stimulating Hormone (TSH) 1.314 uiU/mL (0.358-3.740) Microbiology Date/Time Source Procedure Growth Status 11/24/20 15:10 Nasopharynx SARS-CoV-2 Antigen (Rapid)(KATERINA) - Final Complete Height (Feet): 5 Height (Inches): 4.00 Weight (Pounds): 170 Medications Current Medications Medications (Trade) Dose Ordered Sig/Jesus Route PRN Reason Start Time Stop Time Status Last Admin Dose Admin Acetaminophen (Tylenol) 650 mg Q4H PRN ORAL Mild Pain (Pain Scale 1-3) 11/24/20 15:45 12/24/20 15:44 Acetaminophen/ Hydrocodone Bitart (Pharr 5/325) 1 tab Q4H PRN ORAL PAIN 4-10 11/24/20 15:45 12/01/20 15:44 Apixaban (Eliquis) 2.5 mg BID ORAL 11/24/20 18:00 02/22/21 17:59 11/25/20 08:47 Aspirin (ASA) 81 mg DAILY ORAL 11/25/20 09:00 01/09/21 08:59 11/25/20 08:35 Atorvastatin Calcium (Lipitor) 20 mg BEDTIME ORAL 11/24/20 21:00 02/22/21 20:59 11/24/20 22:25 Calcium Acetate (Phoslo) 667 mg TID ORAL 11/24/20 18:00 02/22/21 17:59 11/25/20 08:47 Chlorhexidine Gluconate (Cira-Hex 2%) 1 applic DAILY@2000 TOPIC 11/25/20 20:00 02/23/21 19:59 Docusate Sodium (Colace) 100 mg TID ORAL 11/24/20 18:00 12/24/20 17:59 11/25/20 08:47 Gabapentin (Neurontin) 100 mg TID ORAL 11/24/20 18:00 12/24/20 17:59 11/25/20 08:35 Hydralazine HCl (Apresoline) 25 mg EVERY 8 HOURS ORAL 11/24/20 22:00 02/22/21 21:59 11/25/20 05:06 Metoprolol Tartrate (Lopressor) 25 mg Q12HR ORAL 11/24/20 21:00 02/22/21 20:59 11/25/20 08:47 Nitroglycerin (Ntg) 1 patch Q24H TDERMAL 11/24/20 16:00 12/24/20 15:59 Pantoprazole (Protonix) 40 mg DAILY ORAL 11/25/20 09:00 12/25/20 08:59 11/25/20 08:35 Promethazine HCl (Phenergan) 25 mg Q6H PRN ORAL Nausea & Vomiting 11/24/20 23:45 12/24/20 23:44 11/25/20 05:05 Sevelamer Carbonate (Renvela) 800 mg THREE TIMES A DAY ORAL 11/24/20 18:00 02/22/21 17:59 11/25/20 08:47 Assessment/Plan Problem List: (1) COPD (chronic obstructive pulmonary disease) ICD Codes: J44.9 - Chronic obstructive pulmonary disease, unspecified SNOMED: 84510849 (2) Hyperkalemia ICD Codes: E87.5 - Hyperkalemia SNOMED: 31295988 (3) Generalized weakness ICD Codes: R53.1 - Weakness SNOMED: 96439582 (4) Bradycardia ICD Codes: R00.1 - Bradycardia, unspecified SNOMED: 57598021 (5) ESRD (end stage renal disease) ICD Codes: N18.6 - End stage renal disease SNOMED: 06557259 (6) Diabetic nephropathy ICD Codes: E11.21 - Type 2 diabetes mellitus with diabetic nephropathy SNOMED: 98774964, 988477116 (7) Diabetic nephropathy ICD Codes: E11.21 - Type 2 diabetes mellitus with diabetic nephropathy SNOMED: 80409479, 115181186 (8) Chest pressure ICD Codes: R07.89 - Other chest pain SNOMED: 866634817 (9) Pacemaker ICD Codes: Z95.0 - Presence of cardiac pacemaker SNOMED: 185249229 (10) Hypertensive kidney disease ICD Codes: I12.9 - Hypertensive chronic kidney disease with stage 1 through stage 4 chronic kidney disease, or unspecified chronic kidney disease SNOMED: 13791188 (11) History of atrial fibrillation ICD Codes: Z86.79 - Personal history of other diseases of the circulatory system SNOMED: 948958366 (12) ESRD (end stage renal disease) on dialysis ICD Codes: N18.6 - End stage renal disease; Z99.2 - Dependence on renal dialysis SNOMED: 484785427 (13) History of CVA (cerebrovascular accident) ICD Codes: Z86.73 - Personal history of transient ischemic attack (TIA), and cerebral infarction without residual deficits SNOMED: 706564883 (14) Volume overload ICD Codes: E87.70 - Fluid overload, unspecified SNOMED: 68606252 (15) Cellulitis of left foot ICD Codes: L03.116 - Cellulitis of left lower limb SNOMED: 902607600 (16) Heel abrasion ICD Codes: S90.819A - Abrasion, unspecified foot, initial encounter SNOMED: 328768361, 697517148 (17) Episode of generalized weakness ICD Codes: R53.1 - Weakness SNOMED: 65058231 (18) Anemia in chronic kidney disease (CKD) ICD Codes: N18.9 - Chronic kidney disease, unspecified; D63.1 - Anemia in chron ic kidney disease SNOMED: 774147158 (19) Elevated troponin I level ICD Codes: R74.8 - Abnormal levels of other serum enzymes SNOMED: 841854264 (20) Urinary tract infection due to Proteus ICD Codes: N39.0 - Urinary tract infection, site not specified; B96.4 - Proteus (mirabilis) (morganii) as the cause of diseases classified elsewhere SNOMED: 043582197 (21) Deep tissue injury Assessment & Plan: Morbidly obese pt whom presented on admission with MASD and Multiple Pressure Injuries. Moisture Intertrigo noted to Skin folds of L breast, abdominal folds and L groin. Full thickness stage 3 Sacral Pressure Injury that is resolving (L)11.5cm x (W)10.3cm. Base of wound is 20% slough ,80% mixed pink epithelial and red granulation. Small amt non-odorous serous exudate noted Hyperpigmentation periwound. Full thickness stage 3 Pressure Injury L Ischium(L)1.2cm x (W)5.3cm. Base of wound is 50% slough,50% beefy red. Edges are macerated. Periwound is erythematous without induration or changes in skin temp. Unstageable Pressure Injury L heel with Loose necrotic cap(L)2.5cm x (W)3cm. 75% loose non-viable cap easily removed. Remaining 25% Necrosis that is adherent to base of wound . with surrounding pink epithelial. Periwound is boggy but bl anchable. R heel is boggy but blanchable. Both feet are mottled and cool to touch. Xerotic skin bilat lower extremities and both feet. Tx.Plan: Cleanse Sacral wound with Saline. Apply Therahoney to slough. Apply Moisture Barrier Paste periwound. Cover with Optifoam drsg. Change Daily and prn. Cleanse L Ischial wound with Saline. Apply TheraHoney. Apply Moisture Barrier Paste periwound. Cover with Optifoam drsg Daily and prn. Wash skin folds with Tepid soap and water. Pat dry. Apply Light dusting of Remedy Antifungal powder to Skin Folds of both breasts, Abdominal folds, and Bilat Groin Twice Daily. Apply Betadine to L heel. Cover with Optifoam drsg. Change every 3 days and prn. Moisturize both lower extremities with lotion Daily. Reposition at least every 2hours or as tolerated. Off-load heels with Pillow. APM/LUCIANA Mattress overlay. ICD Codes: T14.8XXA - Other injury of unspecified body region, initial encounter SNOMED: 833474229 (22) Dyspnea ICD Codes: R06.00 - Dyspnea, unspecified SNOMED: 083871812 (23) Symptomatic anemia ICD Codes: D64.9 - Anemia, unspecified SNOMED: 180392781 (24) Acute on chronic renal failure ICD Codes: N17.9 - Acute kidney failure, unspecified; N18.9 - Chronic kidney disease, unspecified SNOMED: 396157178 (25) Anemia ICD Codes: D64.9 - Anemia, unspecified SNOMED: 427985846 (26) HTN (hypertension) ICD Codes: I10 - Essential (primary) hypertension SNOMED: 70899829 Luis Alberto Cade Nov 25, 2020 10:07
--- NOTE | 2020-11-25 11:52 | Pulmonology Progress Note ---
Subjective ROS Limited/Unobtainable: No Interval Events: None major reported per nursing Constitutional: Reports: no symptoms HEENT: Repors: no symptoms Respiratory: Reports: no symptoms Cardiovascular: Reports: no symptoms Gastrointestinal/Abdominal: Reports: no symptoms Genitourinary: Reports: no symptoms Allergies: Coded Allergies: PENICILLINS (Verified Allergy, Unknown, 04/23/20) Tolerated Cefepime 04/23/20 Objective Last 24 Hour Vital Signs Date Time Temp Pulse Resp B/P (MAP) Pulse Ox O2 Delivery O2 Flow Rate FiO2 11/25/20 09:00 Room Air 11/25/20 08:47 61 135/69 11/25/20 08:00 60 11/25/20 08:00 98.0 61 17 135/69 (91) 92 11/25/20 05:06 120/72 11/25/20 04:00 98.2 60 20 120/72 (88) 96 11/25/20 03:07 60 11/25/20 00:00 97.9 62 22 113/68 (83) 92 11/24/20 23:00 60 11/24/20 22:39 Room Air 11/24/20 22:29 98.0 60 18 160/61 (94) 100 11/24/20 22:29 160/61 11/24/20 22:25 60 160/61 11/24/20 21:58 60 11/24/20 19:15 98.4 66 16 141/51 98 Room Air 100 58 11/24/20 18:00 66 16 141/51 98 Room Air 11/24/20 15:05 58 16 132/51 95 Room Air 11/24/20 13:00 56 20 126/69 95 Room Air 11/24/20 12:18 146/51 11/24/20 12:07 98.4 82 16 148/51 100 11/24/20 12:07 80 14 Room Air 100 Intake and Output 11/24/20 11/25/20 19:00 07:00 Intake Total 480 ml Balance 480 ml Intake Oral 480 ml General Appearance: no acute distress HEENT: atraumatic Respiratory: lungs clear Cardiovascular: normal rate, regular rhythm Abdomen: soft, non tender Microbiology Date/Time Source Procedure Growth Status 11/24/20 15:10 Nasopharynx SARS-CoV-2 Antigen (Rapid)(KATERINA) - Final Complete Laboratory Tests 11/25/20 05:55: White Blood Count 6.6, Red Blood Count 3.64L, Hemoglobin 10.9L, Hematocrit 35.0L , Mean Corpuscular Volume 96, Mean Corpuscular Hemoglobin 29.9, Mean Corpuscular Hemoglobin Concent 31.1L, Red Cell Distribution Width 15.9H, Platelet Count 162, Mean Platelet Volume 7.5, Neutrophils (%) (Auto) 62.4, Lymphocytes (%) (Auto) 22.9, Monocytes (%) (Auto) 9.0, Eosinophils (%) (Auto) 4.3H, Basophils (%) (Auto) 1.5, Sodium Level 143, Potassium Level 4.4, Chloride Level 105, Carbon Dioxide Level 30, Anion Gap 8, Blood Urea Nitrogen 49H, Creatinine 6.2H, Estimat Glomerular Filtration Rate 8.0, Glucose Level 111H, Hemoglobin A1c 5.7, Uric Acid 4.4, Calcium Level 9.5, Phosphorus Level 3.4, Magnesium Level 3.1H, Total Bilirubin 0.5, Gamma Glutamyl Transpeptidase 10, Aspartate Amino Transf (AST/SGOT) 9L, Alanine Aminotransferase (ALT/SGPT) 8L, Alkaline Phosphatase 70, Troponin I 0.011, C-Reactive Protein, Quantitative 1.3H, Pro-B-Type Natriuretic Peptide 8845H, Total Protein 6.4, Albumin 2.8L, Globulin 3.6, Albumin/Globulin Ratio 0.8L, Triglycerides Level 88, Cholesterol Level 222H, LDL Cholesterol 138H , HDL Cholesterol 51, Cholesterol/HDL Ratio 4.4, Thyroid Stimulating Hormone (TSH) 1.314 Current Medications Medications (Trade) Dose Ordered Sig/Jesus Route PRN Reason Start Time Stop Time Status Last Admin Dose Admin Acetaminophen (Tylenol) 650 mg Q4H PRN ORAL Mild Pain (Pain Scale 1-3) 11/24/20 15:45 12/24/20 15:44 Acetaminophen/ Hydrocodone Bitart ([place] 5/325) 1 tab Q4H PRN ORAL PAIN 4-10 11/24/20 15:45 12/01/20 15:44 Apixaban (Eliquis) 2.5 mg BID ORAL 11/24/20 18:00 02/22/21 17:59 11/25/20 08:47 Aspirin (ASA) 81 mg DAILY ORAL 11/25/20 09:00 01/09/21 08:59 11/25/20 08:35 Atorvastatin Calcium (Lipitor) 20 mg BEDTIME ORAL 11/24/20 21:00 02/22/21 20:59 11/24/20 22:25 Calcium Acetate (Phoslo) 667 mg TID ORAL 11/24/20 18:00 02/22/21 17:59 11/25/20 08:47 Chlorhexidine Gluconate (Cira-Hex 2%) 1 applic DAILY@2000 TOPIC 11/25/20 20:00 02/23/21 19:59 Docusate Sodium (Colace) 100 mg TID ORAL 11/24/20 18:00 12/24/20 17:59 11/25/20 08:47 Gabapentin (Neurontin) 100 mg TID ORAL 11/24/20 18:00 12/24/20 17:59 11/25/20 08:35 Hydralazine HCl (Apresoline) 25 mg EVERY 8 HOURS ORAL 11/24/20 22:00 02/22/21 21:59 11/25/20 05:06 Metoprolol Tartrate (Lopressor) 25 mg Q12HR ORAL 11/24/20 21:00 02/22/21 20:59 11/25/20 08:47 Nitroglycerin (Ntg) 1 patch Q24H TDERMAL 11/24/20 16:00 12/24/20 15:59 Pantoprazole (Protonix) 40 mg DAILY ORAL 11/25/20 09:00 12/25/20 08:59 11/25/20 08:35 Promethazine HCl (Phenergan) 25 mg Q6H PRN ORAL Nausea & Vomiting 11/24/20 23:45 12/24/20 23:44 11/25/20 05:05 Sevelamer Carbonate (Renvela) 800 mg THREE TIMES A DAY ORAL 11/24/20 18:00 02/22/21 17:59 11/25/20 08:47 Assessment/Plan Assessment/Plan 1. Hypertension, likely secondary to #8 2. Anemia, likely secondary to #8 3. Hypoxic respiratory distress; resolved -COVID-19 negative -Currently saturating well on room air -Provide supplemental oxygen as needed 4. History of asthma -Patient reports distant history of asthma and denies using any inhalers within the past few years 5. History of COPD -Patient denies use of home oxygen -Provide supplemental oxygen as needed 6. Elevated D-dimer -We will order venous duplex ultrasound of legs; order SCD if negative -Her home medications include Eliquis; continue Eliquis 7. ESRD on dialysis - nephro following The care for this patient was discussed with my supervising physician. Time spent for this case was approximately 31 minutes. Navin Morse Nov 25, 2020 11:51
[2020-11-25 12:00] VITALS: BP 148/76
--- NOTE | 2020-11-25 12:14 | History & Physical ---
History and Physical History & Physicial HISTORY OF PRESENT ILLNESS: The patient is a pleasant 70-year-old female with a history of end-stage renal disease, on hemodialysis. The patient has been transferred from her home because she felt sob. Daughter called me in the office and reported about Mother's symptom. Today she is complaining of b ack pain and lack of sleep, the patient denies any chest pain , just diffuse pain and aches. No nausea. No vomitus. No diarrhea. No constipation. PAST MEDICAL HISTORY: Diabetes, CVA, paraparesis, and end-stage renal disease. decubitus wound ALLERGIES: Penicillin. PSH: Right permcath insertion and extraction followed by new line replacement . MEDICATIONS: Current hospital medications including, but not limited to lisinopril, hydralazine, Eliquis, and amiodarone. SOCIAL HISTORY: The patient has a daughter who is involved in the care, is residing in her home with her daughter. she [facility] dc[facility]wd [facility] facility. No prior history of illicit drug abuse, smoking, or alcohol abuse. PHYSICAL EXAMINATION: BP: 150/85, RR: 13, temperature 98.2, pulse oximetry 98% on room air, and pulse rate 60 to 65. HEAD AND NECK: Atraumatic and normocephalic. CHEST: Clear to auscultation. HEART: S1, S2. Regular rate and rhythm. Bradycardic. MUSCULOSKELETAL: No gross lateralized motor deficit, paraparesis. stage 3 decubitus wound in sacral and calcaneal region.NEUROLOGIC: The patient is awake and alert x 2. LABORATORY AND DIAGNOSTIC DATA: Labs dated 11/25/20 reviewed ASSESSMENT: 1. Hypoxemic respiratory failure secondary to volume over load 2. Decubitus wound, enlarging 3. End-stage renal disease, on temporary PermCath hemodialysis access. 2. Paroxysmal atrial fibrillation, rate is stable. 3. Diabetes type 2. 4. Hypertension. 5. Hyperlipidemia. 6. CVA-history. 7. Dementia. 8. Gastrointestinal and deep vein thrombosis prophylaxes. 9. Pain management Plan: HD- per Nephrology Nephrology , Dr Stephenson consulted. Agree with Tele floor admission operations systems specialist, Cardiology are notified Wound mgt. comment: Time of this note does not reflect actual of the encounter on Aug 27, 2020 Danie Banegas MD Nov 25, 2020 12:14
[2020-11-25] MEDS ORDERED: HYDROcodone/Acetamin 10/325 tab ORAL PRN (12:15)
--- NOTE | 2020-11-25 12:17 | General Progress Note ---
Subjective Allergies: Coded Allergies: PENICILLINS (Verified Allergy, Unknown, 04/23/20) Tolerated Cefepime 04/23/20 Objective Last 24 Hour Vital Signs Date Time Temp Pulse Resp B/P (MAP) Pulse Ox O2 Delivery O2 Flow Rate FiO2 11/25/20 09:00 Room Air 11/25/20 08:47 61 135/69 11/25/20 08:00 60 11/25/20 08:00 98.0 61 17 135/69 (91) 92 11/25/20 05:06 120/72 11/25/20 04:00 98.2 60 20 120/72 (88) 96 11/25/20 03:07 60 11/25/20 00:00 97.9 62 22 113/68 (83) 92 11/24/20 23:00 60 11/24/20 22:39 Room Air 11/24/20 22:29 98.0 60 18 160/61 (94) 100 11/24/20 22:29 160/61 11/24/20 22:25 60 160/61 11/24/20 21:58 60 11/24/20 19:15 98.4 66 16 141/51 98 Room Air 100 58 11/24/20 18:00 66 16 141/51 98 Room Air 11/24/20 15:05 58 16 132/51 95 Room Air 11/24/20 13:00 56 20 126/69 95 Room Air 11/24/20 12:18 146/51 Intake and Output 11/24/20 11/25/20 19:00 07:00 Intake Total 480 ml Balance 480 ml Intake Oral 480 ml Laboratory Tests 11/25/20 05:55: White Blood Count 6.6, Red Blood Count 3.64L, Hemoglobin 10.9L, Hematocrit 35.0L , Mean Corpuscular Volume 96, Mean Corpuscular Hemoglobin 29.9, Mean Corpuscular Hemoglobin Concent 31.1L, Red Cell Distribution Width 15.9H, Platelet Count 162, Mean Platelet Volume 7.5, Neutrophils (%) (Auto) 62.4, Lymphocytes (%) (Auto) 22.9, Monocytes (%) (Auto) 9.0, Eosinophils (%) (Auto) 4.3H, Basophils (%) (Auto) 1.5, Sodium Level 143, Potassium Level 4.4, Chloride Level 105, Carbon Dioxide Level 30, Anion Gap 8, Blood Urea Nitrogen 49H, Creatinine 6.2H, Estimat Glomerular Filtration Rate 8.0, Glucose Level 111H, Hemoglobin A1c 5.7, Uric Ac id 4.4, Calcium Level 9.5, Phosphorus Level 3.4, Magnesium Level 3.1H, Total Bilirubin 0.5, Gamma Glutamyl Transpeptidase 10, Aspartate Amino Transf (AST/SGOT) 9L, Alanine Aminotransferase (ALT/SGPT) 8L, Alkaline Phosphatase 70, Troponin I 0.011, C-Reactive Protein, Quantitative 1.3H, Pro-B-Type Natriuretic Peptide 8845H, Total Protein 6.4, Albumin 2.8L, Globulin 3.6, Albumin/Globulin Ratio 0.8L, Triglycerides Level 88, Cholesterol Level 222H, LDL Cholesterol 138H , HDL Cholesterol 51, Cholesterol/HDL Ratio 4.4, Thyroid Stimulating Hormone (TSH) 1.314 Height (Feet): 5 Height (Inches): 4.00 Weight (Pounds): 170 Assessment/Plan Assessment/Plan: S: I am pain in my back O: mild discomfort. no sob or chest pain reported today. PHYSICAL EXAMINATION: Left IJ central line noted . HEAD AND NECK: Atraumatic and normocephalic. CHEST: Clear to auscultation. HEART: S1, S2. Regular rate and rhythm. Bradycardic. MUSCULOSKELETAL: No gross lateralized motor deficit, paraparesis. stage 3 decubitus wound in sacral and calcaneal region.NEUROLOGIC: The patient is awake and alert x 2. LABORATORY AND DIAGNOSTIC DATA: Labs dated 11/25/20 reviewed ASSESSMENT: 1. Hypoxemic respiratory failure secondary to volume over load 2. Decubitus wound, enlarging 3. End-stage renal disease, on temporary PermCath hemodialysis access. 2. Paroxysmal atrial fibrillation, rate is stable. 3. Diabetes type 2. 4. Hypertension. 5. Hyperlipidemia. 6. CVA-history. 7. Dementia. 8. Gastrointestinal and deep vein thrombosis prophylaxes. 9. Pain management Plan: HD- per Nephrology Nephrology , Dr Stephenson consulted. Agree with Tele floor admission infection control specialist, Cardiology are notified Wound mgt. add [place] 10 for severe pain Danie Banegas MD Nov 25, 2020 12:17
--- NOTE | 2020-11-25 13:09 | NUR ---
NURSE NOTES:WOUND CARE NOTES:Morbidly obese pt whom presented on admission with MASD and Multiple Pressure Injuries. Moisture Intertrigo noted to Skin folds of L breast, abdominal folds and L groin. Full thickness Sacral Pressure Injury that is resolving (L)11.5cm x (W)10.3cm. Base of wound is 20% slough ,80% mixed pink epithelial and red granulation. Small amt non-odorous serous exudate noted Hyperpigmentation periwound. Full thickness Pressure Injury L Ischium(L)1.2cm x (W)5.3cm. Base of wound is 50% slough,50% beefy red. Edges are macerated. Periwound is erythematous without induration or changes in skin temp. Unstageable Pressure Injury L heel with Loose necrotic cap(L)2.5cm x (W)3cm. 75% loose non-viable cap easily removed. Remaining 25% Necrosis that is adherent to base of wound . with surrounding pink epithelial. Periwound is boggy but blanchable. R heel is boggy but blanchable. Both feet are mottled and cool to touch. Xerotic skin bilat lower extremities and both feet. Tx.Plan: Cleanse Sacral wound with Saline. Apply Therahoney to slough. Apply Moisture Barrier Paste periwound. Cover with Optifoam drsg. Change Daily and prn. Cleanse L Ischial wound with Saline. Apply TheraHoney. Apply Moisture Barrier Paste periwound. Cover with Optifoam drsg Daily and prn. Wash skin folds with Tepid soap and water. Pat dry. Apply Light dusting of Remedy Antifungal powder to Skin Folds of both breasts, Abdominal folds, and Bilat Groin Twice Daily. Apply Betadine to L heel. Cover with Optifoam drsg. Change every 3 days and prn. Moisturize both lower extremities with lotion Daily. Reposition at least every 2hours or as tolerated. Off-load heels with Pillow. APM/LUCIANA Mattress overlay.
--- NOTE | 2020-11-25 13:47 | Nephrology Progress Note ---
Assessment/Plan Problem List: (1) ESRD (end stage renal disease) (2) Diabetic nephropathy (3) Pacemaker (4) Hypertensive kidney disease (5) History of CVA (cerebrovascular accident) (6) Anemia in chronic kidney disease (CKD) Assessment 70-year-old female with end-stage renal disease presents with chest pressure History of diabetes mellitus with nephropathy and neuropathy Previous CVA with left weakness Pacemaker paroxysmal atrial fibrillation Hypertension Hyperlipemia Anemia Allergy to penicillin Plan November 25: No chest pain today. Labs reviewed. Medication list reviewed. Hemodialysis in a.m. Patient has normal right chest permacath however has right arm fistula which was used for the first time yesterday Continue per cardiology advice Keep the blood pressure blood sugar in check Hemodialysis in a.m. Per orders Subjective ROS Limited/Unobtainable: No Constitutional: Reports: malaise Objective Objective Last 24 Hour Vital Signs Date Time Temp Pulse Resp B/P (MAP) Pulse Ox O2 Delivery O2 Flow Rate FiO2 11/25/20 09:00 Room Air 11/25/20 08:47 61 135/69 11/25/20 08:00 60 11/25/20 08:00 98.0 61 17 135/69 (91) 92 11/25/20 05:06 120/72 11/25/20 04:00 98.2 60 20 120/72 (88) 96 11/25/20 03:07 60 11/25/20 00:00 97.9 62 22 113/68 (83) 92 11/24/20 23:00 60 11/24/20 22:39 Room Air 11/24/20 22:29 98.0 60 18 160/61 (94) 100 11/24/20 22:29 160/61 11/24/20 22:25 60 160/61 11/24/20 21:58 60 11/24/20 19:15 98.4 66 16 141/51 98 Room Air 100 58 11/24/20 18:00 66 16 141/51 98 Room Air 11/24/20 15:05 58 16 132/51 95 Room Air Intake and Output 11/24/20 11/25/20 19:00 07:00 Intake Total 480 ml Balance 480 ml Intake Oral 480 ml Current Medications Medications (Trade) Dose Ordered Sig/Jesus Route PRN Reason Start Time Stop Time Status Last Admin Dose Admin Acetaminophen (Tylenol) 650 mg Q4H PRN ORAL Mild Pain (Pain Scale 1-3) 11/24/20 15:45 12/24/20 15:44 Acetaminophen/ Hydrocodone Bitart ([place] 10/325) 1 tab Q4H PRN ORAL Severe Pain (Pain Scale 7-10) 11/25/20 12:15 12/02/20 12:14 Acetaminophen/ Hydrocodone Bitart ([place] 5/325) 1 tab Q4H PRN ORAL Moderate Pain (Pain Scale 4-6) 11/24/20 15:45 12/01/20 15:44 Apixaban (Eliquis) 2.5 mg BID ORAL 11/24/20 18:00 02/22/21 17:59 11/25/20 08:47 Aspirin (ASA) 81 mg DAILY ORAL 11/25/20 09:00 01/09/21 08:59 11/25/20 08:35 Atorvastatin Calcium (Lipitor) 20 mg BEDTIME ORAL 11/24/20 21:00 02/22/21 20:59 11/24/20 22:25 Calcium Acetate (Phoslo) 667 mg TID ORAL 11/24/20 18:00 02/22/21 17:59 11/25/20 08:47 Chlorhexidine Gluconate (Cira-Hex 2%) 1 applic DAILY@2000 TOPIC 11/25/20 20:00 02/23/21 19:59 Docusate Sodium (Colace) 100 mg TID ORAL 11/24/20 18:00 12/24/20 17:59 11/25/20 08:47 Gabapentin (Neurontin) 100 mg TID ORAL 11/24/20 18:00 12/24/20 17:59 11/25/20 08:35 Hydralazine HCl (Apresoline) 25 mg EVERY 8 HOURS ORAL 11/24/20 22:00 02/22/21 21:59 11/25/20 05:06 Metoprolol Tartrate (Lopressor) 25 mg Q12HR ORAL 11/24/20 21:00 02/22/21 20:59 11/25/20 08:47 Nitroglycerin (Ntg) 1 patch Q24H TDERMAL 11/24/20 16:00 12/24/20 15:59 Pantoprazole (Protonix) 40 mg DAILY ORAL 11/25/20 09:00 12/25/20 08:59 11/25/20 08:35 Sevelamer Carbonate (Renvela) 800 mg THREE TIMES A DAY ORAL 11/24/20 18:00 02/22/21 17:59 11/25/20 08:47 Zolpidem Tartrate (Ambien) 5 mg HSPRN PRN ORAL Insomnia 11/25/20 21:00 12/02/20 20:59 Laboratory Tests 11/25/20 05:55: White Blood Count 6.6, Red Blood Count 3.64L, Hemoglobin 10.9L, Hematocrit 35.0L , Mean Corpuscular Volume 96, Mean Corpuscular Hemoglobin 29.9, Mean Corpuscular Hemoglobin Concent 31.1L, Red Cell Distribution Width 15.9H, Platelet Count 162, Mean Platelet Volume 7.5, Neutrophils (%) (Auto) 62.4, Lymphocytes (%) (Auto) 22.9, Monocytes (%) (Auto) 9.0, Eosinophils (%) (Auto) 4.3H, Basophils (%) (Auto) 1.5, Sodium Level 143, Potassium Level 4.4, Chloride Level 105, Carbon Dioxide Level 30, Anion Gap 8, Blood Urea Nitrogen 49H, Creatinine 6.2H, Estimat Glomerular Filtration Rate 8.0, Glucose Level 111H, Hemoglobin A1c 5.7, Uric Acid 4.4, Calcium Level 9.5, Phosphorus Level 3.4, Magnesium Level 3.1H, Total Bilirubin 0.5, Gamma Glutamyl Transpeptidase 10, Aspartate Amino Transf (AST/SGOT) 9L, Alanine Aminotransferase (ALT/SGPT) 8L, Alkaline Phosphatase 70, Troponin I 0.011, C-Reactive Protein, Quantitative 1.3H, Pro-B-Type Natriuretic Peptide 8845H, Total Protein 6.4, Albumin 2.8L, Globulin 3.6, Albumin/Globulin Ratio 0.8L, Triglycerides Level 88, Cholesterol Level 222H, LDL Cholesterol 138H , HDL Cholesterol 51, Cholesterol/HDL Ratio 4.4, Thyroid Stimulating Hormone (TSH) 1.314 Height (Feet): 5 Height (Inches): 4.00 Weight (Pounds): 170 General Appearance: no apparent distress Cardiovascular: normal rate Respiratory/Chest: decreased breath sounds Abdomen: soft Manas Stephenson MD Nov 25, 2020 13:47
--- NOTE | 2020-11-25 14:17 | NUR ---
NURSE NOTES: Spoke with Mazin from [facility] to schedule dialysis for tomorrow 11/26. Said he will inform dialysis nurses, Mike and Manuel.
--- NOTE | 2020-11-25 15:51 | Diagnostic Imaging Report ---
Indication: Post line placement Technique: One view of the chest Comparison: 8 hours earlier Findings: Interim placement left jugular central venous catheter, tip which projects at the level of the upper superior vena cava. No pneumothorax. Right jugular tunneled dialysis catheter, left chest pacemaker again demonstrated. The lungs and pleural spaces are grossly clear Impression: Satisfactory left jugular central line placement. No radiographically evident complication Otherwise stable findings as described
[2020-11-25 16:00] VITALS: BP 101/57
[2020-11-25] MEDS: Nitroglycerin Patch 0.4mg TDERMAL SCH (16:45)
--- NOTE | 2020-11-25 19:19 | NUR ---
NURSE HAND-OFF REPORT: Important Events on Shift: HD scheduled for 11/26, consent done, 2D echo and venous duplex done, wound care done, new consult with Dr. Cade Patient Status: Stable Diet: Renal CCHO med soft easy chew Pending Orders: N Pending Results/Labs: N Pending MD notification: N Latest Vital Signs: Temperature 98.1 , Pulse 60 , B/P 101 /57 , Respiratory Rate 18 , O2 SAT 94 , Room Air, O2 Flow Rate . Vital Sign Comment: EKG Rhythm: A-Paced Rhythm change?: N MD Notified?: N -Dr. Makenzie COLEY Response: Latest Srivastava Fall Score: 70 Fall Risk: High Risk Safety Measures: Call light Within Reach, Bed Alarm Zone 2, Side Rails Side Rails x2, Bed position Low and Locked. Fall Precautions: Yellow Socks Door Sign Patient Fall Education Report given to Layla BEAN.
--- NOTE | 2020-11-25 19:21 | NUR ---
NURSE NOTES: Report received from VIKAS Zavala Patient is asleep in stable condition. phototypesetting equipment monitor is in place, shows A-paced with 1st degree AVB. With pacemaker on left upper chest. On renal CCHO (Medium), soft easy chew. Patient is on bedrest. With right chest Perma catheter for her HD access. With Left IJ catheter. On room air, and no complaints of shortness of breath. Safety measures are in place, bed in lowest and locked position, side rails up x 2, call light button and bedside table within reach, instructed to call for any assistance needed. Will continue plan of care.
[2020-11-25 20:00] VITALS: BP 109/51
[2020-11-25] MEDS ORDERED: AMIODARONE HCL200 MG ORAL (20:11)
[2020-11-25] MEDS ORDERED: LISINOPRIL10 MG ORAL (20:11)
[2020-11-25] MEDS ORDERED: NEURONTIN300 MG ORAL (20:11)
[2020-11-25] MEDS: Dyna-Hex 2% Top Sol 2oz TOPIC SCH (20:16)
[2020-11-25] MEDS: Atorvastatin 20mg tab ORAL SCH (20:18)
[2020-11-25] MEDS ORDERED: Zolpidem 5mg tab ORAL PRN (21:00)
--- NOTE | 2020-11-25 21:49 | Cardiology Progress Note ---
Assessment/Plan Status: stable Status Narrative 1. ESRD on HD aneuric 2. Chest pain - troponin 0.02 improved after HD ACS unlikely 3. HFpEF, chronic diastolic HF with preserved EF 55% BNP elevated 4. h/o CVA 5. HTN 6. HPLD HD with Permacath. Pt denies CP. Troponin leak downtrended, ACS unlikely. EKG SR. SBP and HR controlled. Subjective ROS Limited/Unobtainable: No Subjective Resting comfortably, breathing easily Objective Last 24 Hour Vital Signs Date Time Temp Pulse Resp B/P (MAP) Pulse Ox O2 Delivery O2 Flow Rate FiO2 11/25/20 20:17 65 110/61 11/25/20 16:45 101/57 11/25/20 16:00 60 11/25/20 16:00 98.1 61 18 101/57 (72) 94 11/25/20 14:39 148/76 11/25/20 12:00 60 11/25/20 12:00 97.8 61 18 148/76 (100) 92 11/25/20 09:00 Room Air 11/25/20 08:47 61 135/69 11/25/20 08:00 60 11/25/20 08:00 98.0 61 17 135/69 (91) 92 11/25/20 05:06 120/72 11/25/20 04:00 98.2 60 20 120/72 (88) 96 11/25/20 03:07 60 11/25/20 00:00 97.9 62 22 113/68 (83) 92 11/24/20 23:00 60 11/24/20 22:39 Room Air 11/24/20 22:29 98.0 60 18 160/61 (94) 100 11/24/20 22:29 160/61 11/24/20 22:25 60 160/61 11/24/20 21:58 60 General Appearance: no apparent distress EENT: PERRL/EOMI Neck: no JVD Rhythm: NSR Cardiovascular: regular rhythm Respiratory/Chest: normal breath sounds, no accessory muscle use Abdomen: soft Extremities: moderate edema Neurologic: tube coater II-XII grossly normal Intake and Output 11/24/20 11/25/20 19:00 07:00 Intake Total 480 ml Balance 480 ml Intake Oral 480 ml Laboratory Tests Test 11/25/20 05:55 White Blood Count 6.6 K/UL (4.8-10.8) Red Blood Count 3.64 M/UL (4.20-5.40) L Hemoglobin 10.9 G/DL (12.0-16.0) L Hematocrit 35.0 % (37.0-47.0) L Mean Corpuscular Volume 96 FL (80-99) Mean Corpuscular Hemoglobin 29.9 PG (27.0-31.0) Mean Corpuscular Hemoglobin Concent 31.1 G/DL (32.0-36.0) L Red Cell Distribution Width 15.9 % (11.6-14.8) H Platelet Count 162 K/UL (150-450) Mean Platelet Volume 7.5 FL (6.5-10.1) Neutrophils (%) (Auto) 62.4 % (45.0-75.0) Lymphocytes (%) (Auto) 22.9 % (20.0-45.0) Monocytes (%) (Auto) 9.0 % (1.0-10.0) Eosinophils (%) (Auto) 4.3 % (0.0-3.0) H Basophils (%) (Auto) 1.5 % (0.0-2.0) Sodium Level 143 MMOL/L (136-145) Potassium Level 4.4 MMOL/L (3.5-5.1) Chloride Level 105 MMOL/L (98-107) Carbon Dioxide Level 30 MMOL/L (21-32) Anion Gap 8 mmol/L (5-15) Blood Urea Nitrogen 49 mg/dL (7-18) H Creatinine 6.2 MG/DL (0.55-1.30) H Estimat Glomerular Filtration Rate 8.0 mL/min (>60) Glucose Level 111 MG/DL (74-106) H Hemoglobin A1c 5.7 % (4.3-6.0) Uric Acid 4.4 MG/DL (2.6-7.2) Calcium Level 9.5 MG/DL (8.5-10.1) Phosphorus Level 3.4 MG/DL (2.5-4.9) Magnesium Level 3.1 MG/DL (1.8-2.4) H Total Bilirubin 0.5 MG/DL (0.2-1.0) Gamma Glutamyl Transpeptidase 10 U/L (5-85) Aspartate Amino Transf (AST/SGOT) 9 U/L (15-37) L Alanine Aminotransferase (ALT/SGPT) 8 U/L (12-78) L Alkaline Phosphatase 70 U/L (46-116) Troponin I 0.011 ng/mL (0.000-0.056) C-Reactive Protein, Quantitative 1.3 mg/dL (0.00-0.90) H Pro-B-Type Natriuretic Peptide 8845 pg/mL (0-125) H Total Protein 6.4 G/DL (6.4-8.2) Albumin 2.8 G/DL (3.4-5.0) L Globulin 3.6 g/dL Albumin/Globulin Ratio 0.8 (1.0-2.7) L Triglycerides Level 88 MG/DL (30-150) Cholesterol Level 222 MG/DL (< 200) H LDL Cholesterol 138 mg/dL (<100) H HDL Cholesterol 51 MG/DL (40-60) Cholesterol/HDL Ratio 4.4 (3.3-4.4) Thyroid Stimulating Hormone (TSH) 1.314 uiU/mL (0.358-3.740) Microbiology Date/Time Source Procedure Growth Status 11/24/20 15:10 Nasopharynx SARS-CoV-2 Antigen (Rapid)([facility]) - Final Complete Luda Petty PA-C Nov 25, 2020 21:49
[2020-11-26] VITALS: BP 91/51
[2020-11-26 04:00] VITALS: BP 94/44
[2020-11-26] MEDS: HydrALAZINE 25mg tab ORAL SCH (06:00)
--- NOTE | 2020-11-26 07:15 | NUR ---
NURSE HAND-OFF REPORT: Important Events on Shift: Patient has been resting well the whole shift, no complaints made Patient Status: Patient is awake on bed in stable condition. Plan of care endorsed. Diet: Renal CCHO Pending Orders: HD today Pending Results/Labs:none Pending notification:none Latest Vital Signs: Temperature 98.2 , Pulse 60 , B/P 95 /51 , Respiratory Rate 17 , O2 SAT 97 , Room Air, O2 Flow Rate . Vital Sign Comment: stable EKG Rhythm: A-Paced Rhythm change?: N Notified?: N -Dr. Makenzie COLEY Response: Latest Srivastava Fall Score: 70 Fall Risk: High Risk Safety Measures: Call light Within Reach, Bed Alarm Zone 1, Side Rails Side Rails x2, Bed position Low and Locked. Fall Precautions: Yellow Socks Door Sign Patient Fall Education Report given to VIKAS Zavala.
--- NOTE | 2020-11-26 07:17 | NUR ---
NURSE NOTES: Report received from Layla BEAN. Patient seen on rounds, asleep but easily rousable, not in acute distress, no complaints of chest pain. Central line noted over left IJ, no signs of bleeding or infiltration. Pt has left upper chest pacemaker, EKG is A-paced. Right chest permacath noted with dressing intact for dialysis access. Bed low and locked, siderails up x2, low air loss mattress in place, call light placed within reach and instructed to call nurse for assistance. Will continue to monitor.
[2020-11-26 08:00] VITALS: BP 113/53
[2020-11-26] MEDS: Eliquis 2.5mg tablet ORAL SCH ×2 (08:19→17:39)
[2020-11-26] MEDS: Renvela 800mg Pkt ORAL SCH (08:20)
[2020-11-26] MEDS: Aspirin Baby 81mg ORAL SCH (08:20)
[2020-11-26] MEDS: Docusate 100mg cap ORAL SCH ×3 (08:21→17:39)
--- NOTE | 2020-11-26 10:52 | NUR ---
NURSE NOTES: Luda Petty cardio saw patient today, notified of blood pressure readings and that metoprolol was held in AM due to low BP. Pt is getting dialysis today. Ordered to remove NTG patch and monitor BP readings. Orders noted and carried out.
--- NOTE | 2020-11-26 11:05 | Surgery Progress Note ---
Surgery Progress Note Subjective Additional Comments no acute events comfortable resting no n/v dressings going well Objective Last 24 Hour Vital Signs Date Time Temp Pulse Resp B/P (MAP) Pulse Ox O2 Delivery O2 Flow Rate FiO2 11/26/20 09:00 Room Air 11/26/20 08:21 60 95/51 11/26/20 08:00 60 11/26/20 08:00 97.9 60 16 113/53 (73) 99 11/26/20 06:00 95/51 11/26/20 04:00 98.2 62 17 94/44 (61) 97 11/26/20 04:00 60 11/26/20 00:00 98.3 61 16 91/51 (64) 100 11/26/20 00:00 60 11/25/20 22:00 90/48 11/25/20 21:00 Room Air 11/25/20 20:17 65 110/61 11/25/20 20:00 98.5 61 16 109/51 (70) 94 11/25/20 20:00 60 11/25/20 16:45 101/57 11/25/20 16:00 60 11/25/20 16:00 98.1 61 18 101/57 (72) 94 11/25/20 14:39 148/76 11/25/20 12:00 60 11/25/20 12:00 97.8 61 18 148/76 (100) 92 I&O Intake and Output 11/25/20 11/26/20 19:00 07:00 Intake Total 240 ml Output Total 1 ml Balance 240 ml -1 ml Intake Oral 240 ml Output Urine Total 1 ml Dressing: saturated Cardiovascular: RSR Respiratory: decreased breath sounds Abdomen: soft, non-tender, present bowel sounds, non-distended Extremities: no tenderness, no cyanosis Plan Problems: (1) COPD (chronic obstructive pulmonary disease) (2) Hyperkalemia (3) Generalized weakness (4) Bradycardia (5) ESRD (end stage renal disease) (6) Diabetic nephropathy (7) Diabetic nephropathy (8) Chest pressure (9) Pacemaker (10) Hypertensive kidney disease (11) History of atrial fibrillation (12) ESRD (end stage renal disease) on dialysis (13) History of CVA (cerebrovascular accident) (14) Volume overload (15) Cellulitis of left foot (16) Heel abrasion (17) Episode of generalized weakness (18) Anemia in chronic kidney disease (CKD) (19) Elevated troponin I level (20) Urinary tract infection due to Proteus (21) Deep tissue injury Assessment & Plan: Morbidly obese pt whom presented on admission with MASD and Multiple Pressure Injuries. Moisture Intertrigo noted to Skin folds of L breast, abdominal folds and L groin. Full thickness stage 3 Sacral Pressure Injury that is resolving (L)11.5cm x (W)10.3cm. Base of wound is 20% slough ,80% mixed pink epithelial and red granulation. Small amt non-odorous serous exudate noted Hyperpigmentation periwound. Full thickness stage 3 Pressure Injury L Ischium(L)1.2cm x (W)5.3cm. Base of wound is 50% slough,50% beefy red. Edges are macerated. Periwound is erythematous without induration or changes in skin temp. Unstageable Pressure Injury L heel with Loose necrotic cap(L)2.5cm x (W)3cm. 75% loose non-viable cap easily removed. Remaining 25% Necrosis that is adherent to base of wound . with surrounding pink epithelial. Periwound is boggy but blanchable. R heel is boggy but blanchable. Both feet are mottled and cool to touch. Xerotic skin bilat lower extremities and both feet. Tx.Plan: Cleanse Sacral wound with Saline. Apply Therahoney to slough. Apply Moisture Barrier Paste periwound. Cover with Optifoam drsg. Change Daily and prn. Cleanse L Ischial wound with Saline. Apply TheraHoney. Apply Moisture Barrier Paste periwound. Cover with Optifoam drsg Daily and prn. Wash skin folds with Tepid soap and water. Pat dry. Apply Light dusting of Remedy Antifungal powder to Skin Folds of both breasts, Abdominal folds, and Bilat Groin Twice Daily. Apply Betadine to L heel. Cover with Optifoam drsg. Change every 3 days and prn. Moisturize both lower extremities with lotion Daily. Reposition at least every 2hours or as tolerated. Off-load heels with Pillow. APM/LUCIANA Mattress overlay. (22) Dyspnea (23) Symptomatic anemia (24) Acute on chronic renal failure (25) Anemia (26) HTN (hypertension) Luis Alberto Cade Nov 26, 2020 11:05
--- NOTE | 2020-11-26 11:12 | NUR ---
CASE MANAGEMENT:REVIEW 11/26/20 SI: CHEST PAIN. ESRD. CHF 97.9 60 16 113/53-->95/51 99% ON RA IS: PROTONIX PO QD ASA PO QD HYDRALAZINE PO Q8HRS (HELD) LOPRESSOR PO Q12 (HELD) LIPITOR PO QHS RENVELA PO TID NEURONTIN PO TID PHOSLO PO TID ELIQUIS PO BID NITRO PATCH Q24 : TELEMETRY STATUS DCP: FROM HOME
--- NOTE | 2020-11-26 11:31 | General Progress Note ---
Subjective Allergies: Coded Allergies: PENICILLINS (Verified Allergy, Unknown, 04/23/20) Tolerated Cefepime 04/23/20 Objective Last 24 Hour Vital Signs Date Time Temp Pulse Resp B/P (MAP) Pulse Ox O2 Delivery O2 Flow Rate FiO2 11/26/20 09:00 Room Air 11/26/20 08:21 60 95/51 11/26/20 08:00 60 11/26/20 08:00 97.9 60 16 113/53 (73) 99 11/26/20 06:00 95/51 11/26/20 04:00 98.2 62 17 94/44 (61) 97 11/26/20 04:00 60 11/26/20 00:00 98.3 61 16 91/51 (64) 100 11/26/20 00:00 60 11/25/20 22:00 90/48 11/25/20 21:00 Room Air 11/25/20 20:17 65 110/61 11/25/20 20:00 98.5 61 16 109/51 (70) 94 11/25/20 20:00 60 11/25/20 16:45 101/57 11/25/20 16:00 60 11/25/20 16:00 98.1 61 18 101/57 (72) 94 11/25/20 14:39 148/76 11/25/20 12:00 60 11/25/20 12:00 97.8 61 18 148/76 (100) 92 Intake and Output 11/25/20 11/26/20 19:00 07:00 Intake Total 240 ml Output Total 1 ml Balance 240 ml -1 ml Intake Oral 240 ml Output Urine Total 1 ml Height (Feet): 5 Height (Inches): 4.00 Weight (Pounds): 170 Assessment/Plan Status: stable Assessment/Plan: S: I am ok O: mild discomfort in back reported . PHYSICAL EXAMINATION: Left IJ central line noted . HEAD AND NECK: Atraumatic and normocephalic. CHEST: Clear to auscultation. HEART: S1, S2. Regular rate and rhythm. Bradycardic. MUSCULOSKELETAL: No gross lateralized motor deficit, paraparesis. stage 3 decubitus wound in sacral and calcaneal region.NEUROLOGIC: The patient is awake and alert x 2. LABORATORY AND DIAGNOSTIC DATA: Labs dated 11/25/20 reviewed ASSESSMENT: 1. Hypoxemic respiratory failure secondary to volume over load 2. Decubitus wound, enlarging 3. End-stage renal disease, on temporary PermCath hemodialysis access. 2. Paroxysmal atrial fibrillation, rate is stable. 3. Diabetes type 2. 4. Hypertension. 5. Hyperlipidemia. 6. CVA-history. 7. Dementia. 8. Gastrointestinal and deep vein thrombosis prophylaxes. 9. Pain management Plan: HD- per Nephrology Nephrology , Dr Stephenson consulted. Agree with Tele floor admission activity therapy specialist, Cardiology are notified Wound mgt. add [place] 10 for severe pain Given relative low BP, I stop Hydralazine and monitor Danie Banegas MD Nov 26, 2020 11:31
--- NOTE | 2020-11-26 11:59 | Nephrology Progress Note ---
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 Due for dialysis today. Blood pressure hovering around 90 to 100 systolic. Lopressor dose decreased. Albumin for BP support during dialysis. Will check lab tomorrow. Continue per consultants. November 25: No chest pain today. Labs reviewed. Medication list reviewed. Hemodialysis in a.m. Patient has normal right chest permacath however has right arm fistula which was used for the first time yesterday Continue per cardiology advice Keep the blood pressure blood sugar in check Hemodialysis in a.m. Per orders Subjective ROS Limited/Unobtainable: No Constitutional: Reports: malaise Objective Objective Last 24 Hour Vital Signs Date Time Temp Pulse Resp B/P (MAP) Pulse Ox O2 Delivery O2 Flow Rate FiO2 11/26/20 09:00 Room Air 11/26/20 08:21 60 95/51 11/26/20 08:00 60 11/26/20 08:00 97.9 60 16 113/53 (73) 99 11/26/20 06:00 95/51 11/26/20 04:00 98.2 62 17 94/44 (61) 97 11/26/20 04:00 60 11/26/20 00:00 98.3 61 16 91/51 (64) 100 11/26/20 00:00 60 11/25/20 22:00 90/48 11/25/20 21:00 Room Air 11/25/20 20:17 65 110/61 11/25/20 20:00 98.5 61 16 109/51 (70) 94 11/25/20 20:00 60 11/25/20 16:45 101/57 11/25/20 16:00 60 11/25/20 16:00 98.1 61 18 101/57 (72) 94 11/25/20 14:39 148/76 11/25/20 12:00 60 11/25/20 12:00 97.8 61 18 148/76 (100) 92 Intake and Output 11/25/20 11/26/20 19:00 07:00 Intake Total 240 ml Output Total 1 ml Balance 240 ml -1 ml Intake Oral 240 ml Output Urine Total 1 ml Current Medications Medications (Trade) Dose Ordered Sig/Jesus Route PRN Reason Start Time Stop Time Status Last Admin Dose Admin Acetaminophen (Tylenol) 650 mg Q4H PRN ORAL Mild Pain (Pain Scale 1-3) 11/24/20 15:45 12/24/20 15:44 Acetaminophen/ Hydrocodone Bitart ([place] 10/325) 1 tab Q4H PRN ORAL Severe Pain (Pain Scale 7-10) 11/25/20 12:15 12/02/20 12:14 Acetaminophen/ Hydrocodone Bitart ([place] 5/325) 1 tab Q4H PRN ORAL Moderate Pain (Pain Scale 4-6) 11/24/20 15:45 12/01/20 15:44 Apixaban (Eliquis) 2.5 mg BID ORAL 11/24/20 18:00 02/22/21 17:59 11/26/20 08:19 Aspirin (ASA) 81 mg DAILY ORAL 11/25/20 09:00 01/09/21 08:59 11/26/20 08:20 Atorvastatin Calcium (Lipitor) 20 mg BEDTIME ORAL 11/24/20 21:00 02/22/21 20:59 11/25/20 20:18 Calcium Acetate (Phoslo) 667 mg TID ORAL 11/24/20 18:00 02/22/21 17:59 11/26/20 08:20 Chlorhexidine Gluconate (Cira-Hex 2%) 1 applic DAILY@1999 TOPIC 11/25/20 20:00 02/23/21 19:59 11/25/20 20:16 Docusate Sodium (Colace) 100 mg TID ORAL 11/24/20 18:00 12/24/20 17:59 11/26/20 08:21 Gabapentin (Neurontin) 100 mg TID ORAL 11/24/20 18:00 12/24/20 17:59 11/26/20 08:21 Metoprolol Tartrate (Lopressor) 25 mg Q12HR ORAL 11/24/20 21:00 02/22/21 20:59 2/18/21 20:17 Nitroglycerin (Ntg) 1 patch Q24H TDERMAL 11/24/20 16:00 12/24/20 15:59 11/25/20 16:45 Pantoprazole (Protonix) 40 mg DAILY ORAL 11/25/20 09:00 12/25/20 08:59 11/26/20 08:21 Sevelamer Carbonate (Renvela) 800 mg THREE TIMES A DAY ORAL 11/24/20 18:00 02/22/21 17:59 11/26/20 08:20 Zolpidem Tartrate (Ambien) 5 mg HSPRN PRN ORAL Insomnia 11/25/20 21:00 12/02/20 20:59 No labs drawn today Height (Feet): 5 Height (Inches): 4.00 Weight (Pounds): 170 General Appearance: no apparent distress Cardiovascular: normal rate Respiratory/Chest: decreased breath sounds Abdomen: soft Manas Stephenson MD Nov 26, 2020 11:59
[2020-11-26 12:00] VITALS: BP 111/60
--- NOTE | 2020-11-26 12:05 | Pulmonology Progress Note ---
Subjective ROS Limited/Unobtainable: No Interval Events: None major reported per nursing Constitutional: Reports: no symptoms HEENT: Repors: no symptoms Respiratory: Reports: no symptoms Cardiovascular: Reports: no symptoms Gastrointestinal/Abdominal: Reports: no symptoms Genitourinary: Reports: no symptoms Allergies: Coded Allergies: PENICILLINS (Verified Allergy, Unknown, 04/23/20) Tolerated Cefepime 04/23/20 Objective Last 24 Hour Vital Signs Date Time Temp Pulse Resp B/P (MAP) Pulse Ox O2 Delivery O2 Flow Rate FiO2 11/26/20 09:00 Room Air 11/26/20 08:21 60 95/51 11/26/20 08:00 60 11/26/20 08:00 97.9 60 16 113/53 (73) 99 11/26/20 06:00 95/51 11/26/20 04:00 98.2 62 17 94/44 (61) 97 11/26/20 04:00 60 11/26/20 00:00 98.3 61 16 91/51 (64) 100 11/26/20 00:00 60 11/25/20 22:00 90/48 11/25/20 21:00 Room Air 11/25/20 20:17 65 110/61 11/25/20 20:00 98.5 61 16 109/51 (70) 94 11/25/20 20:00 60 11/25/20 16:45 101/57 11/25/20 16:00 60 11/25/20 16:00 98.1 61 18 101/57 (72) 94 11/25/20 14:39 148/76 Intake and Output 11/25/20 11/26/20 19:00 07:00 Intake Total 240 ml Output Total 1 ml Balance 240 ml -1 ml Intake Oral 240 ml Output Urine Total 1 ml General Appearance: no acute distress HEENT: atraumatic Respiratory: lungs clear Cardiovascular: normal rate, regular rhythm Abdomen: soft, non tender Microbiology Date/Time Source Procedure Growth Status 11/24/20 15:10 Nasal Nares MRSA Culture - Final NO METHICILLIN RESISTANT STAPH AUREUS... Complete 11/24/20 15:10 Nasopharynx SARS-CoV-2 Antigen (Rapid)(KATERINA) - Final Complete Current Medications Medications (Trade) Dose Ordered Sig/Jesus Route PRN Reason Start Time Stop Time Status Last Admin Dose Admin Acetaminophen (Tylenol) 650 mg Q4H PRN ORAL Mild Pain (Pain Scale 1-3) 11/24/20 15:45 12/24/20 15:44 Acetaminophen/ Hydrocodone Bitart ([place] 10/325) 1 tab Q4H PRN ORAL Severe Pain (Pain Scale 7-10) 11/25/20 12:15 12/02/20 12:14 Acetaminophen/ Hydrocodone Bitart ([place] 5/325) 1 tab Q4H PRN ORAL Moderate Pain (Pain Scale 4-6) 11/24/20 15:45 12/01/20 15:44 Apixaban (Eliquis) 2.5 mg BID ORAL 11/24/20 18:00 02/22/21 17:59 11/26/20 08:19 Aspirin (ASA) 81 mg DAILY ORAL 11/25/20 09:00 01/09/21 08:59 11/26/20 08:20 Atorvastatin Calcium (Lipitor) 20 mg BEDTIME ORAL 11/24/20 21:00 02/22/21 20:59 11/25/20 20:18 Calcium Acetate (Phoslo) 667 mg TID ORAL 11/24/20 18:00 02/22/21 17:59 11/26/20 08:20 Chlorhexidine Gluconate (Cira-Hex 2%) 1 applic DAILY@2000 TOPIC 11/25/20 20:00 02/23/21 19:59 11/25/20 20:16 Docusate Sodium (Colace) 100 mg TID ORAL 11/24/20 18:00 12/24/20 17:59 11/26/20 08:21 Gabapentin (Neurontin) 100 mg TID ORAL 11/24/20 18:00 12/24/20 17:59 11/26/20 08:21 Metoprolol Tartrate (Lopressor) 12.5 mg Q12HR ORAL 11/27/20 09:00 02/22/21 20:59 Nitroglycerin (Ntg) 1 patch Q24H TDERMAL 11/24/20 16:00 12/24/20 15:59 11/25/20 16:45 Pantoprazole (Protonix) 40 mg DAILY ORAL 11/25/20 09:00 12/25/20 08:59 11/26/20 08:21 Zolpidem Tartrate (Ambien) 5 mg HSPRN PRN ORAL Insomnia 11/25/20 21:00 12/02/20 20:59 Assessment/Plan Assessment/Plan 1. Hypertension, likely secondary to #8 - controlled 2. Anemia, likely secondary to #8 3. Hypoxic respiratory distress; resolved -COVID-19 negative -Currently saturating well on room air -Provide supplemental oxygen as needed 4. History of asthma -Patient reports distant history of asthma and denies using any inhalers within the past few years 5. History of COPD -Patient denies use of home oxygen -Provide supplemental oxygen as needed 6. Elevated D-dimer -Her home medications include Eliquis; continue Eliquis 7. ESRD on dialysis - nephro following - due for dialysis (11/26) The care for this patient was discussed with my supervising physician. Time spent for this case was approximately 31 minutes. Navin Morse Nov 26, 2020 12:05
[2020-11-26 16:00] VITALS: BP 110/57
[2020-11-26] MEDS: Nitroglycerin Patch 0.4mg TDERMAL SCH (16:00)
--- NOTE | 2020-11-26 19:25 | NUR ---
NURSE HAND-OFF REPORT: Important Events on Shift: HD ongoing Patient Status: Stable Diet: Renal CCHO med Pending Orders: N Pending Results/Labs: N Pending MD notification: N Latest Vital Signs: Temperature 97.9 , Pulse 60 , B/P 110 /57 , Respiratory Rate 17 , O2 SAT 97 , Room Air, O2 Flow Rate . Vital Sign Comment: EKG Rhythm: A-Paced Rhythm change?: N MD Notified?: N -Dr. Makenzie COLEY Response: Latest Srivastava Fall Score: 70 Fall Risk: High Risk Safety Measures: Call light Within Reach, Bed Alarm Zone 1, Side Rails Side Rails x2, Bed position Low and Locked. Fall Precautions: Yellow Socks Door Sign Patient Fall Education Report given to Tiffanie Nix LVN.
[2020-11-26 20:00] VITALS: BP 107/57
--- NOTE | 2020-11-26 20:00 | NUR ---
NURSE NOTES: RECEIVED PATIENT LYING IN BED, AWAKE, HEMODIALYSIS ONGOING VIA PERMACATH RIGHT CHEST WALL, TOLERATING WELL. NO SIGNS AND SYMPTOMS OF ACUTE CARDIO RESPIRATORY DISTRESS/SHORTNESS OF BREATH, DENIES CHEST PAIN, NO PERIPHERAL EDEMA NOTED. TLC CATHETER INTACT TO LEFT IJ, DRESSING CHANGED ON 11/25/20. ABDOMEN OBESE, SOFT, NON TENDER, NOTED WITH FAIR APPETITE, 1 TO 1 FEEDER DUE TO DISEASE PROCESS, WEAKNESS NOTED TO UPPER AND LOWER EXTREMITIES, MAX ASSIST WITH ADL'S. SIDE RAILS UP X3, BED IN LOWEST POSITION FOR SAFETY, ENCOURAGED PATIENT TO UTILIZE CALL LIGHT FOR ASSISTANCE, VERBALIZED UNDERSTANDING, CONTINUE WITH CURRENT PLAN OF CARE. NAD.
--- NOTE | 2020-11-26 21:00 | NUR ---
NURSE NOTES: HEMODIALYSIS COMPLETE, NO ILL EFFECTS NOTED, REMOVED 2300ML, NAD, VITALS STABLE.
[2020-11-26] MEDS: Atorvastatin 20mg tab ORAL SCH (21:24)
[2020-11-26] MEDS: Dyna-Hex 2% Top Sol 2oz TOPIC SCH (21:24)
[2020-11-27] VITALS (7 sets, daily range): BP systolic 96–120; BP diastolic 31–66
--- NOTE | 2020-11-27 07:13 | NUR ---
NURSE HAND-OFF REPORT: Important Events on Shift:[LOW BLOOD PRESSURE 96/31 AT 0000, ASYMPTOMATIC - 0015 102/44, ASYMPTOMATIC, LEFT MESSAGE FOR DR. MILLS] Patient Status: [STABLE,B/P 113/57] Diet: [RENAL CCHO M SOFT EASY CHEW] Pending Orders: [AM LABS] Pending Results/Labs:[] Pending MD notification:[] Latest Vital Signs: Temperature 97.7 , Pulse 60 , B/P 113 /57 , Respiratory Rate 17 , O2 SAT 94 , Room Air, O2 Flow Rate . Vital Sign Comment: [STABLE, AFEBRILE] EKG Rhythm: A-Paced, AV Paced Rhythm change?: N MD Notified?: N -Dr. Makenzie COLEY Response: Latest Srivastava Fall Score: 70 Fall Risk: High Risk Safety Measures: Call light Within Reach, Bed Alarm Zone 1, Side Rails Side Rails x2, Bed position Low and Locked. Fall Precautions: Yellow Socks Door Sign Patient Fall Education Report given to [VIKAS KOO].
--- NOTE | 2020-11-27 08:33 | NUR ---
NURSE NOTES: Patient sitting up in bed, awake and alert, on 1 liters nasal cannula, bed in lowest position, call light within reach, no c/o pain, no SOB, in no apparent distress/
[2020-11-27 09:29] LABS: BASOPHILS % (AUTO) 1.3 % (0.0-2.0); EOSINOPHILS % (AUTO) 5.3 % (0.0-3.0); HEMOGLOBIN 10.1 G/DL (12.0-16.0); LYMPHOCYTES % (AUTO) 28.6 % (20.0-45.0); MEAN CORPUSCULAR VOLUME 99 FL (80-99); MONOCYTES % (AUTO) 10.2 % (1.0-10.0); NEUTROPHILS % (AUTO) 54.6 % (45.0-75.0); PLATELET COUNT 173 K/UL (150-450); RED BLOOD COUNT 3.34 M/UL (4.20-5.40); RED CELL DISTRIBUTION WIDTH 16.4 % (11.6-14.8); WHITE BLOOD COUNT 5.5 K/UL (4.8-10.8)
[2020-11-27] MEDS: Aspirin Baby 81mg ORAL SCH (09:36)
[2020-11-27] MEDS: Docusate 100mg cap ORAL SCH ×3 (09:36→17:50)
[2020-11-27] MEDS: Eliquis 2.5mg tablet ORAL SCH ×2 (09:36→17:50)
--- NOTE | 2020-11-27 09:59 | Surgery Progress Note ---
Surgery Progress Note Subjective Symptoms: improved, tolerating diet, passing flatus Objective Last 24 Hour Vital Signs Date Time Temp Pulse Resp B/P (MAP) Pulse Ox O2 Delivery O2 Flow Rate FiO2 11/27/20 09:00 60 118/66 11/27/20 08:00 97.7 60 20 118/66 (83) 96 11/27/20 04:00 97.7 60 17 113/57 (75) 94 11/27/20 04:00 Room Air 11/27/20 04:00 60 11/27/20 00:15 102/44 (63) 11/27/20 00:00 60 11/27/20 00:00 Room Air 11/27/20 00:00 97.9 60 17 96/31 (52) 97 11/26/20 21:00 Room Air 11/26/20 20:00 97.5 60 18 107/57 (74) 96 11/26/20 20:00 60 11/26/20 16:00 97.9 60 17 110/57 (74) 97 11/26/20 16:00 111/60 11/26/20 16:00 60 11/26/20 12:00 60 11/26/20 12:00 97.7 60 17 111/60 (77) 97 I&O Intake and Output 11/26/20 11/27/20 19:00 07:00 Intake Total 300 ml 360 ml Output Total 2300 ml Balance 300 ml -1940 ml Intake Oral 300 ml 360 ml Hemodialysis UF 2300 ml Dressing: saturated Wound: clean Cardiovascular: RSR Respiratory: clear, decreased breath sounds Abdomen: soft, non-tender, present bowel sounds, non-distended Extremities: no edema, no tenderness, no cyanosis Laboratory Tests Test 11/27/20 08:30 White Blood Count 5.5 K/UL (4.8-10.8) Red Blood Count 3.34 M/UL (4.20-5.40) L Hemoglobin 10.1 G/DL (12.0-16.0) L Hematocrit 33.0 % (37.0-47.0) L Mean Corpuscular Volume 99 FL (80-99) Mean Corpuscular Hemoglobin 30.3 PG (27.0-31.0) Mean Corpuscular Hemoglobin Concent 30.7 G/DL (32.0-36.0) L Red Cell Distribution Width 16.4 % (11.6-14.8) H Platelet Count 173 K/UL (150-450) Mean Platelet Volume 7.5 FL (6.5-10.1) Neutrophils (%) (Auto) 54.6 % (45.0-75.0) Lymphocytes (%) (Auto) 28.6 % (20.0-45.0) Monocytes (%) (Auto) 10.2 % (1.0-10.0) H Eosinophils (%) (Auto) 5.3 % (0.0-3.0) H Basophils (%) (Auto) 1.3 % (0.0-2.0) Sodium Level Pending Potassium Level Pending Chloride Level Pending Carbon Dioxide Level Pending Blood Urea Nitrogen Pending Creatinine Pending Estimat Glomerular Filtration Rate Pending Glucose Level Pending Uric Acid Pending Calcium Level Pending Phosphorus Level Pending Magnesium Level Pending Total Bilirubin Pending Aspartate Amino Transf (AST/SGOT) Pending Alanine Aminotransferase (ALT/SGPT) Pending Alkaline Phosphatase Pending C-Reactive Protein, Quantitative Pending Pro-B-Type Natriuretic Peptide Pending Total Protein Pending Albumin Pending Globulin Pending Plan Problems: (1) COPD (chronic obstructive pulmonary disease) (2) Hyperkalemia (3) Generalized weakness (4) Bradycardia (5) ESRD (end stage renal disease) (6) Diabetic nephropathy (7) Diabetic nephropathy (8) Chest pressure (9) Pacemaker (10) Hypertensive kidney disease (11) History of atrial fibrillation (12) ESRD (end stage renal disease) on dialysis (13) History of CVA (cerebrovascular accident) (14) Volume overload (15) Cellulitis of left foot (16) Heel abrasion (17) Episode of generalized weakness (18) Anemia in chronic kidney disease (CKD) (19) Elevated troponin I level (20) Urinary tract infection due to Proteus (21) Deep tissue injury Assessment & Plan: Morbidly obese pt whom presented on admission with MASD and Multiple Pressure Injuries. Moisture Intertrigo noted to Skin folds of L breast, abdominal folds and L groin. Full thickness stage 3 Sacral Pressure Injury that is resolving (L)11.5cm x (W)10.3cm. Base of wound is 20% slough ,80% mixed pink epithelial and red granulation. Small amt non-odorous serous exudate noted Hyperpigmentation periwound. Full thickness stage 3 Pressure Injury L Ischium(L)1.2cm x (W)5.3cm. Base of wound is 50% slough,50% beefy red. Edges are macerated. Periwound is erythematous without induration or changes in skin temp. Unstageable Pressure Injury L heel with Loose necrotic cap(L)2.5cm x (W)3cm. 75% loose non-viable cap easily removed. Remaining 25% Necrosis that is adherent to base of wound . with surrounding pink epithelial. Periwound is boggy but blanchable. R heel is boggy but blanchable. Both feet are mottled and cool to touch. Xerotic skin bilat lower extremities and both feet. Tx.Plan: Cleanse Sacral wound with Saline. Apply Therahoney to slough. Apply Moisture Barrier Paste periwound. Cover with Optifoam drsg. Change Daily and prn. Cleanse L Ischial wound with Saline. Apply TheraHoney. Apply Moisture Barrier Paste periwound. Cover with Optifoam drsg Daily and prn. Wash skin folds with Tepid soap and water. Pat dry. Apply Light dusting of Remedy Antifungal powder to Skin Folds of both breasts, Abdominal folds, and Bilat Groin Twice Daily. Apply Betadine to L heel. Cover with Optifoam drsg. Change every 3 days and prn. Moisturize both lower extremities with lotion Daily. Reposition at least every 2hours or as tolerated. Off-load heels with Pillow. APM/LUCIANA Mattress overlay. (22) Dyspnea (23) Symptomatic anemia (24) Acute on chronic renal failure (25) Anemia (26) HTN (hypertension) Luis Alberto Cade Nov 27, 2020 09:59
[2020-11-27 10:01] LABS: ALBUMIN 2.6 G/DL (3.4-5.0); ALBUMIN/GLOBULIN RATIO 0.7 (1.0-2.7); BILIRUBIN,TOTAL 0.3 MG/DL (0.2-1.0); CALCIUM 8.9 MG/DL (8.5-10.1); CREATININE 5.3 MG/DL (0.55-1.30); PHOSPHORUS 2.4 MG/DL (2.5-4.9); POTASSIUM 4.1 MMOL/L (3.5-5.1)
--- NOTE | 2020-11-27 11:11 | Pulmonology Progress Note ---
Subjective ROS Limited/Unobtainable: No Interval Events: None major reported per nursing Constitutional: Reports: no symptoms HEENT: Repors: no symptoms Respiratory: Reports: no symptoms Cardiovascular: Reports: no symptoms Gastrointestinal/Abdominal: Reports: no symptoms Genitourinary: Reports: no symptoms Allergies: Coded Allergies: PENICILLINS (Verified Allergy, Unknown, 04/23/20) Tolerated Cefepime 04/23/20 Objective Last 24 Hour Vital Signs Date Time Temp Pulse Resp B/P (MAP) Pulse Ox O2 Delivery O2 Flow Rate FiO2 11/27/20 09:00 60 118/66 11/27/20 08:00 97.7 60 20 118/66 (83) 96 11/27/20 08:00 60 11/27/20 04:00 97.7 60 17 113/57 (75) 94 11/27/20 04:00 Room Air 11/27/20 04:00 60 11/27/20 00:15 102/44 (63) 11/27/20 00:00 60 11/27/20 00:00 Room Air 11/27/20 00:00 97.9 60 17 96/31 (52) 97 11/26/20 21:00 Room Air 11/26/20 20:00 97.5 60 18 107/57 (74) 96 11/26/20 20:00 60 11/26/20 16:00 97.9 60 17 110/57 (74) 97 11/26/20 16:00 111/60 11/26/20 16:00 60 11/26/20 12:00 60 11/26/20 12:00 97.7 60 17 111/60 (77) 97 Intake and Output 11/26/20 11/27/20 19:00 07:00 Intake Total 300 ml 360 ml Output Total 2300 ml Balance 300 ml -1940 ml Intake Oral 300 ml 360 ml Hemodialysis UF 2300 ml General Appearance: no acute distress HEENT: atraumatic Respiratory: lungs clear Cardiovascular: normal rate, regular rhythm Abdomen: soft, non tender Microbiology Date/Time Source Procedure Growth Status 11/24/20 15:10 Nasal Nares MRSA Culture - Final NO METHICILLIN RESISTANT STAPH AUREUS... Complete 11/24/20 15:10 Nasopharynx SARS-CoV-2 Antigen (Rapid)(KATERINA) - Final Complete Laboratory Tests 11/27/20 08:30: White Blood Count 5.5, Red Blood Count 3.34L, Hemoglobin 10.1L, Hematocrit 33.0L , Mean Corpuscular Volume 99, Mean Corpuscular Hemoglobin 30.3, Mean Corpuscular Hemoglobin Concent 30.7L, Red Cell Distribution Width 16.4H, Platelet Count 173, Mean Platelet Volume 7.5, Neutrophils (%) (Auto) 54.6, Lymphocytes (%) (Auto) 28.6, Monocytes (%) (Auto) 10.2H, Eosinophils (%) (Auto) 5.3H, Basophils (%) (Auto) 1.3, Sodium Level 141, Potassium Level 4.1, Chloride Level 104, Carbon Dioxide Level 31, Anion Gap 6, Blood Urea Nitrogen 36H, Creatinine 5.3H, Estimat Glomerular Filtration Rate 9.6, Glucose Level 125H, Uric Acid 4.0, Calcium Level 8.9, Phosphorus Level 2.4L, Magnesium Level 2.7H, Total Bilirubin 0.3, Aspartate Amino Transf (AST/SGOT) 14L, Alanine Aminotransferase (ALT/SGPT) 10L, Alkaline Phosphatase 64, C-Reactive Protein, Quantitative 2.0H, Pro-B-Type Natriuretic Peptide 7801H, Total Protein 6.1L, Albumin 2.6L, Globulin 3.5, Albumin/Globulin Ratio 0.7L Current Medications Medications (Trade) Dose Ordered Sig/Jesus Route PRN Reason Start Time Stop Time Status Last Admin Dose Admin Acetaminophen (Tylenol) 650 mg Q4H PRN ORAL Mild Pain (Pain Scale 1-3) 11/24/20 15:45 12/24/20 15:44 Acetaminophen/ Hydrocodone Bitart ([place] 10/325) 1 tab Q4H PRN ORAL Severe Pain (Pain Scale 7-10) 11/25/20 12:15 12/02/20 12:14 Acetaminophen/ Hydrocodone Bitart ([place] 5/325) 1 tab Q4H PRN ORAL Moderate Pain (Pain Scale 4-6) 11/24/20 15:45 12/01/20 15:44 Apixaban (Eliquis) 2.5 mg BID ORAL 11/24/20 18:00 02/22/21 17:59 11/27/20 09:36 Aspirin (ASA) 81 mg DAILY ORAL 11/25/20 09:00 01/09/21 08:59 11/27/20 09:36 Atorvastatin Calcium (Lipitor) 20 mg BEDTIME ORAL 11/24/20 21:00 02/22/21 20:59 11/26/20 21:24 Calcium Acetate (Phoslo) 667 mg TID ORAL 11/24/20 18:00 02/22/21 17:59 11/27/20 09:36 Chlorhexidine Gluconate (Cira-Hex 2%) 1 applic DAILY@2000 TOPIC 11/25/20 20:00 02/23/21 19:59 11/26/20 21:24 Docusate Sodium (Colace) 100 mg TID ORAL 11/24/20 18:00 12/24/20 17:59 11/27/20 09:36 Gabapentin (Neurontin) 100 mg TID ORAL 11/24/20 18:00 12/24/20 17:59 11/27/20 09:36 Metoprolol Tartrate (Lopressor) 12.5 mg Q12HR ORAL 11/27/20 09:00 02/22/21 20:59 Nitroglycerin (Ntg) 1 patch Q24H TDERMAL 11/24/20 16:00 12/24/20 15:59 11/25/20 16:45 Pantoprazole (Protonix) 40 mg DAILY ORAL 11/25/20 09:00 12/25/20 08:59 11/27/20 09:36 Zolpidem Tartrate (Ambien) 5 mg HSPRN PRN ORAL Insomnia 11/25/20 21:00 12/02/20 20:59 Assessment/Plan Assessment/Plan 1. Hypertension 2. Anemia, 3. Hypoxic respiratory distress; resolved -COVID-19 negative -Currently saturating well on room air -Provide supplemental oxygen as needed 4. History of asthma -Patient reports distant history of asthma and denies using any inhalers within the past few years 5. History of COPD -Patient denies use of home oxygen -Provide supplemental oxygen as needed 6. Elevated D-dimer -Her home medications include Eliquis; continue Eliquis 7. ESRD on dialysis Suraj Roe MD Nov 27, 2020 11:11
--- NOTE | 2020-11-27 13:18 | Nephrology Progress Note ---
Assessment/Plan Problem List: (1) ESRD (end stage renal disease) (2) Diabetic nephropathy (3) Pacemaker (4) Hypertensive kidney disease (5) History of CVA (cerebrovascular accident) (6) Anemia in chronic kidney disease (CKD) Assessment 70-year-old female with end-stage renal disease presents with chest pressure History of diabetes mellitus with nephropathy and neuropathy Previous CVA with left weakness Pacemaker paroxysmal atrial fibrillation Hypertension Hyperlipemia Anemia Allergy to penicillin Plan November 27: Dialyzed yesterday. Will attempt to dialyze tomorrow again. Nitropaste discontinued. Continue per consultants. Labs reviewed. Medication list reviewed. November 26: Comfortable. Due for dialysis today. Blood pressure hovering around 90 to 100 systolic. Lopressor dose decreased. Albumin for BP support during dialysis. Will check lab tomorrow. Continue per consultants. November 25: No chest pain today. Labs reviewed. Medication list reviewed. Hemodialysis in a.m. Patient has normal right chest permacath however has right arm fistula which was used for the first time yesterday Continue per cardiology advice Keep the blood pressure blood sugar in check Hemodialysis in a.m. Per orders Subjective ROS Limited/Unobtainable: No Constitutional: Reports: malaise Objective Objective Last 24 Hour Vital Signs Date Time Temp Pulse Resp B/P (MAP) Pulse Ox O2 Delivery O2 Flow Rate FiO2 11/27/20 12:00 97.9 60 18 108/60 (76) 97 11/27/20 12:00 60 11/27/20 09:00 Room Air 11/27/20 09:00 60 118/66 11/27/20 08:00 97.7 60 20 118/66 (83) 96 11/27/20 08:00 60 11/27/20 04:00 97.7 60 17 113/57 (75) 94 11/27/20 04:00 Room Air 11/27/20 04:00 60 11/27/20 00:15 102/44 (63) 11/27/20 00:00 60 11/27/20 00:00 Room Air 11/27/20 00:00 97.9 60 17 96/31 (52) 97 11/26/20 21:00 Room Air 11/26/20 20:00 97.5 60 18 107/57 (74) 96 11/26/20 20:00 60 11/26/20 16:00 97.9 60 17 110/57 (74) 97 11/26/20 16:00 111/60 11/26/20 16:00 60 Intake and Output 11/26/20 11/27/20 19:00 07:00 Intake Total 300 ml 360 ml Output Total 2300 ml Balance 300 ml -1940 ml Intake Oral 300 ml 360 ml Hemodialysis UF 2300 ml Current Medications Medications (Trade) Dose Ordered Sig/Jesus Route PRN Reason Start Time Stop Time Status Last Admin Dose Admin Acetaminophen (Tylenol) 650 mg Q4H PRN ORAL Mild Pain (Pain Scale 1-3) 11/24/20 15:45 12/24/20 15:44 Acetaminophen/ Hydrocodone Bitart ([place] 10/325) 1 tab Q4H PRN ORAL Severe Pain (Pain Scale 7-10) 11/25/20 12:15 12/02/20 12:14 Acetaminophen/ Hydrocodone Bitart ([place] 5/325) 1 tab Q4H PRN ORAL Moderate Pain (Pain Scale 4-6) 11/24/20 15:45 12/01/20 15:44 Apixaban (Eliquis) 2.5 mg BID ORAL 11/24/20 18:00 02/22/21 17:59 11/27/20 09:36 Aspirin (ASA) 81 mg DAILY ORAL 11/25/20 09:00 01/09/21 08:59 11/27/20 09:36 Atorvastatin Calcium (Lipitor) 20 mg BEDTIME ORAL 11/24/20 21:00 02/22/21 20:59 11/26/20 21:24 Calcium Acetate (Phoslo) 667 mg TID ORAL 11/24/20 18:00 02/22/21 17:59 11/27/20 13:00 Chlorhexidine Gluconate (Cira-Hex 2%) 1 applic DAILY@2000 TOPIC 11/25/20 20:00 02/23/21 19:59 11/26/20 21:24 Docusate Sodium (Colace) 100 mg TID ORAL 11/24/20 18:00 12/24/20 17:59 11/27/20 13:00 Gabapentin (Neurontin) 100 mg TID ORAL 11/24/20 18:00 12/24/20 17:59 11/27/20 13:00 Metoprolol Tartrate (Lopressor) 12.5 mg Q12HR ORAL 11/27/20 09:00 02/22/21 20:59 Nitroglycerin (Ntg) 1 patch Q24H TDERMAL 11/24/20 16:00 12/24/20 15:59 11/25/20 16:45 Pantoprazole (Protonix) 40 mg DAILY ORAL 11/25/20 09:00 12/25/20 08:59 11/27/20 09:36 Zolpidem Tartrate (Ambien) 5 mg HSPRN PRN ORAL Insomnia 11/25/20 21:00 12/02/20 20:59 Laboratory Tests 11/27/20 08:30: White Blood Count 5.5, Red Blood Count 3.34L, Hemoglobin 10.1L, Hematocrit 33.0L , Mean Corpuscular Volume 99, Mean Corpuscular Hemoglobin 30.3, Mean Corpuscular Hemoglobin Concent 30.7L, Red Cell Distribution Width 16.4H, Platelet Count 173, Mean Platelet Volume 7.5, Neutrophils (%) (Auto) 54.6, Lymphocytes (%) (Auto) 28.6, Monocytes (%) (Auto) 10.2H, Eosinophils (%) (Auto) 5.3H, Basophils (%) (Auto) 1.3, Sodium Level 141, Potassium Level 4.1, Chloride Level 104, Carbon Dioxide Level 31, Anion Gap 6, Blood Urea Nitrogen 36H, Creatinine 5.3H, Estimat Glomerular Filtration Rate 9.6, Glucose Level 125H, Uric Acid 4.0, Calcium Level 8.9, Phosphorus Level 2.4L, Magnesium Level 2.7H, Total Bilirubin 0.3, Aspartate Amino Transf (AST/SGOT) 14L, Alanine Aminotransferase (ALT/SGPT) 10L, Alkaline Phosphatase 64, C-Reactive Protein, Quantitative 2.0H, Pro-B-Type Natriuretic Peptide 7801H, Total Protein 6.1L, Albumin 2.6L, Globulin 3.5, Albumin/Globulin Ratio 0.7L Height (Feet): 5 Height (Inches): 4.00 Weight (Pounds): 170 General Appearance: no apparent distress Cardiovascular: normal rate Respiratory/Chest: decreased breath sounds Abdomen: soft Manas Stephenson MD Nov 27, 2020 13:18
--- NOTE | 2020-11-27 17:49 | Cardiology Progress Note ---
Assessment/Plan Status Narrative 1. ESRD on HD aneuric 2. Chest pain - troponin 0.02 improved after HD ACS unlikely 3. HFpEF, chronic diastolic HF with preserved EF 55% BNP elevated 4. h/o CVA 5. HTN 6. HPLD HD with Permacath. Pt denies CP. Troponin leak downtrended, ACS unlikely. EKG SR. SBP and HR controlled. Subjective Subjective Resting comfortably, breathing easily Objective Last 24 Hour Vital Signs Date Time Temp Pulse Resp B/P (MAP) Pulse Ox O2 Delivery O2 Flow Rate FiO2 11/27/20 16:00 60 11/27/20 16:00 97.5 62 20 105/63 (77) 96 11/27/20 12:00 97.9 60 18 108/60 (76) 97 11/27/20 12:00 60 11/27/20 09:00 Room Air 11/27/20 09:00 60 118/66 11/27/20 08:00 97.7 60 20 118/66 (83) 96 11/27/20 08:00 60 11/27/20 04:00 97.7 60 17 113/57 (75) 94 11/27/20 04:00 Room Air 11/27/20 04:00 60 11/27/20 00:15 102/44 (63) 11/27/20 00:00 60 11/27/20 00:00 Room Air 11/27/20 00:00 97.9 60 17 96/31 (52) 97 11/26/20 21:00 Room Air 11/26/20 20:00 97.5 60 18 107/57 (74) 96 11/26/20 20:00 60 Intake and Output 11/26/20 11/27/20 19:00 07:00 Intake Total 300 ml 360 ml Output Total 2300 ml Balance 300 ml -1940 ml Intake Oral 300 ml 360 ml Hemodialysis UF 2300 ml Laboratory Tests Test 11/27/20 08:30 White Blood Count 5.5 K/UL (4.8-10.8) Red Blood Count 3.34 M/UL (4.20-5.40) L Hemoglobin 10.1 G/DL (12.0-16.0) L Hematocrit 33.0 % (37.0-47.0) L Mean Corpuscular Volume 99 FL (80-99) Mean Corpuscular Hemoglobin 30.3 PG (27.0-31.0) Mean Corpuscular Hemoglobin Concent 30.7 G/DL (32.0-36.0) L Red Cell Distribution Width 16.4 % (11.6-14.8) H Platelet Count 173 K/UL (150-450) Mean Platelet Volume 7.5 FL (6.5-10.1) Neutrophils (%) (Auto) 54.6 % (45.0-75.0) Lymphocytes (%) (Auto) 28.6 % (20.0-45.0) Monocytes (%) (Auto) 10.2 % (1.0-10.0) H Eosinophils (%) (Auto) 5.3 % (0.0-3.0) H Basophils (%) (Auto) 1.3 % (0.0-2.0) Sodium Level 141 MMOL/L (136-145) Potassium Level 4.1 MMOL/L (3.5-5.1) Chloride Level 104 MMOL/L (98-107) Carbon Dioxide Level 31 MMOL/L (21-32) Anion Gap 6 mmol/L (5-15) Blood Urea Nitrogen 36 mg/dL (7-18) H Creatinine 5.3 MG/DL (0.55-1.30) H Estimat Glomerular Filtration Rate 9.6 mL/min (>60) Glucose Level 125 MG/DL (74-106) H Uric Acid 4.0 MG/DL (2.6-7.2) Calcium Level 8.9 MG/DL (8.5-10.1) Phosphorus Level 2.4 MG/DL (2.5-4.9) L Magnesium Level 2.7 MG/DL (1.8-2.4) H Total Bilirubin 0.3 MG/DL (0.2-1.0) Aspartate Amino Transf (AST/SGOT) 14 U/L (15-37) L Alanine Aminotransferase (ALT/SGPT) 10 U/L (12-78) L Alkaline Phosphatase 64 U/L (46-116) C-Reactive Protein, Quantitative 2.0 mg/dL (0.00-0.90) H Pro-B-Type Natriuretic Peptide 7801 pg/mL (0-125) H Total Protein 6.1 G/DL (6.4-8.2) L Albumin 2.6 G/DL (3.4-5.0) L Globulin 3.5 g/dL Albumin/Globulin Ratio 0.7 (1.0-2.7) L Luda Petty PA-C Nov 27, 2020 17:49
--- NOTE | 2020-11-27 18:58 | NUR ---
NURSE HAND-OFF REPORT: Important Events on Shift: Nitropatch discontinued, blood pressure =130/85. Dialysis ordered for tomorrow with [facility] at 09/27/20. Patient Status: In no apparent distress Diet: Renal CCHO medium soft EZ chew. Pending Orders: HD on 09/27/21. Pending Results/Labs:N/A Pending MD notification:N/A Latest Vital Signs: Temperature 97.5 , Pulse 60 , B/P 105 /63 , Respiratory Rate 20 , O2 SAT 96 , Room Air, O2 Flow Rate . Vital Sign Comment: N/A EKG Rhythm: A-Paced Rhythm change?: N Notified?: N -Dr. Makenzie COLEY Response: Latest Srivastava Fall Score: 70 Fall Risk: High Risk Safety Measures: Call light Within Reach, Bed Alarm Zone 1, Side Rails Side Rails x2, Bed position Low and Locked. Fall Precautions: Yellow Socks Door Sign Patient Fall Education eport given to Tiffanie Nix LVN.
--- NOTE | 2020-11-27 19:03 | NUR ---
NURSE NOTES: Scheduled hemodialysis with Zhao at [facility] for 09/27/21.
--- NOTE | 2020-11-27 20:00 | NUR ---
NURSE NOTES: RECEIVED PATIENT LYING IN BED, AWAKE, ALERT/ORIENTED X3 WITH PERIODS OF CONFUSION, DENIES PAIN. NO SIGNS AND SYMPTOMS OF ACUTE CARDIO RESPIRATORY DISTRESS/SHORTNESS OF BREATH, DENIES CHEST PAIN, NO PERIPHERAL EDEMA NOTED. VITALS STABLE, AFEBRILE. RIGHT SUBCLAVIAN PERMACATH, DRESSING DRY AND INTACT-TLC LEFT IJ PLACED ON 11/24, DRESSING CHANGED ON 11/25/20-HD SCHEDULED 11/28/AV SHUNT TO RIGHT UPPER ARM, NOTED WITH +BRUITT/THRILL. NO COMPLAINTS OF GI DISCOMFORT, NO N/V/D. SIDE RAILS UP X3, BED IN LOWEST POSITION FOR SAFETY, FREQUENT ROUNDING FOR SAFETY/NEEDS. CONTINUE WITH CURRENT PLAN OF CARE. DRESSINGS DRY AND INTACT TO SACRAL/LEFT ISCHIUM/BILATERAL HEELS/P200 MATTRESS FOR WOUND MANAGEMENT.
[2020-11-27] MEDS: Dyna-Hex 2% Top Sol 2oz TOPIC SCH (22:18)
[2020-11-27] MEDS: Atorvastatin 20mg tab ORAL SCH (22:20)
--- NOTE | 2020-11-27 23:00 | General Progress Note ---
Subjective Allergies: Coded Allergies: PENICILLINS (Verified Allergy, Unknown, 04/23/20) Tolerated Cefepime 04/23/20 Objective Last 24 Hour Vital Signs Date Time Temp Pulse Resp B/P (MAP) Pulse Ox O2 Delivery O2 Flow Rate FiO2 11/27/20 21:00 60 100/51 11/27/20 21:00 Room Air 11/27/20 20:00 98.2 61 16 120/53 (75) 99 11/27/20 20:00 60 11/27/20 16:00 60 11/27/20 16:00 97.5 62 20 105/63 (77) 96 11/27/20 12:00 97.9 60 18 108/60 (76) 97 11/27/20 12:00 60 11/27/20 09:00 Room Air 11/27/20 09:00 60 118/66 11/27/20 08:00 97.7 60 20 118/66 (83) 96 11/27/20 08:00 60 11/27/20 04:00 97.7 60 17 113/57 (75) 94 11/27/20 04:00 Room Air 11/27/20 04:00 60 11/27/20 00:15 102/44 (63) 11/27/20 00:00 60 11/27/20 00:00 Room Air 11/27/20 00:00 97.9 60 17 96/31 (52) 97 Intake and Output 11/26/20 11/27/20 19:00 07:00 Intake Total 300 ml 360 ml Output Total 2300 ml Balance 300 ml -1940 ml Intake Oral 300 ml 360 ml Hemodialysis UF 2300 ml Laboratory Tests 11/27/20 08:30: White Blood Count 5.5, Red Blood Count 3.34L, Hemoglobin 10.1L, Hematocrit 33.0L , Mean Corpuscular Volume 99, Mean Corpuscular Hemoglobin 30.3, Mean Corpuscular Hemoglobin Concent 30.7L, Red Cell Distribution Width 16.4H, Platelet Count 173, Mean Platelet Volume 7.5, Neutrophils (%) (Auto) 54.6, Lymphocytes (%) (Auto) 28.6, Monocytes (%) (Auto) 10.2H, Eosinophils (%) (Auto) 5.3H, Basophils (%) (Auto) 1.3, Sodium Level 141, Potassium Level 4.1, Chloride Level 104, Carbon Dioxide Level 31, Anion Gap 6, Blood Urea Nitrogen 36H, Creatinine 5.3H, Estimat Glomerular Filtration Rate 9.6, Glucose Level 125H, Uric Acid 4.0, Calcium Level 8.9, Phosphorus Level 2.4L, Magnesium Level 2.7H, Total Bilirubin 0.3, Aspartate Amino Transf (AST/SGOT) 14L, Alanine Aminotransferase (ALT/SGPT) 10L, Alkaline Phosphatase 64, C-Reactive Protein, Quantitative 2.0H, Pro-B-Type Natriuretic Peptide 7801H, Total Protein 6.1L, Albumin 2.6L, Globulin 3.5, Albumin/Globulin Ratio 0.7L Height (Feet): 5 Height (Inches): 4.00 Weight (Pounds): 170 Assessment/Plan Status: stable Assessment/Plan: S: I am ok O: mild discomfort in back reported . PHYSICAL EXAMINATION: Left IJ central line noted . HEAD AND NECK: Atraumatic and normocephalic. CHEST: Clear to auscultation. HEART: S1, S2. Regular rate and rhythm. Bradycardic. MUSCULOSKELETAL: No gross lateralized motor deficit, paraparesis. stage 3 decubitus wound in sacral and calcaneal region.NEUROLOGIC: The patient is awake and alert x 2. LABORATORY AND DIAGNOSTIC DATA: Labs dated 11/26/20 reviewed ASSESSMENT: 1. Hypoxemic respiratory failure secondary to volume over load 2. Decubitus wound, enlarging 3. End-stage renal disease, on temporary PermCath hemodialysis access. 2. Paroxysmal atrial fibrillation, rate is stable. 3. Diabetes type 2. 4. Hypertension. 5. Hyperlipidemia. 6. CVA-history. 7. Dementia. 8. Gastrointestinal and deep vein thrombosis prophylaxes. 9. Pain management Plan: HD- per Nephrology Nephrology , Dr Stephenson consulted. Agree with Tele floor admission customs import specialist, Cardiology are notified Wound mgt. add Center Line 10 for severe pain Given relative low BP, I stop Hydralazine and monitor notes from insurance law specialist Danie Abarca MD Nov 27, 2020 23:00
[2020-11-28] VITALS: BP 118/51
[2020-11-28 04:00] VITALS: BP 123/52
--- NOTE | 2020-11-28 04:25 | NUR ---
NURSE NOTES: RESTING WELL, NO SIGNS OF DISTRESS.
--- NOTE | 2020-11-28 07:40 | NUR ---
NURSE NOTES: RECEIVED PATIENT LYING IN BED, AWAKE, ALERT/ORIENTED X3 WITH PERIODS OF CONFUSION. ABLE TO VERBALIZE NEEDS. DENIES PAIN. NO SIGNS AND SYMPTOMS OF ACUTE CARDIO RESPIRATORY DISTRESS/SHORTNESS OF BREATH, DENIES CHEST PAIN, NO PERIPHERAL EDEMA NOTED. VITALS STABLE, AFEBRILE. RIGHT SUBCLAVIAN PERMACATH, DRESSING DRY AND INTACT-TLC LEFT IJ PLACED ON 11/24, DRESSING CHANGED ON 11/25/20-HD SCHEDULED 11/28/AV SHUNT TO RIGHT UPPER ARM, NOTED WITH +BRUITT/THRILL. NO COMPLAINTS OF GI DISCOMFORT, NO N/V/D. SCHEDULED FOR HD TODAY WITH [facility]. SIDERAILS UP X3, BED IN LOWEST POSITION FOR SAFETY, FREQUENT ROUNDING FOR SAFETY/NEEDS. CONTINUE WITH CURRENT PLAN OF CARE. DRESSINGS DRY AND INTACT TO SACRAL/LEFT ISCHIUM/BILATERAL HEELS/P200 MATTRESS FOR WOUND MANAGEMENT. WILL CONT TO MONITOR.
--- NOTE | 2020-11-28 07:45 | NUR ---
NURSE HAND-OFF REPORT: Important Events on Shift:[RESTED WELL, UNEVENTFUL NIGHT; WOUND PICTURES UPLOADED TO CHART] Patient Status: [FULL CODE,STABLE] Diet: [RENAL CCHO M SOFT EASY CHEW] Pending Orders: [HEMODIALYSIS 11/28 VIA AV FISTULA] Pending Results/Labs:[] Pending MD notification:[] Latest Vital Signs: Temperature 97.7 , Pulse 60 , B/P 123 /52 , Respiratory Rate 16 , O2 SAT 96 , Room Air, O2 Flow Rate . Vital Sign Comment: [STABLE, AFEBRILE] EKG Rhythm: A-Paced Rhythm change?: N MD Notified?: N -Dr. Makenzie COLEY Response: Latest Srivastava Fall Score: 70 Fall Risk: High Risk Safety Measures: Call light Within Reach, Bed Alarm Zone 1, Side Rails Side Rails x2, Bed position Low and Locked. Fall Precautions: Yellow Socks Door Sign Patient Fall Education Report given to [RUBY ROACH].
--- NOTE | 2020-11-28 07:46 | Pulmonology Progress Note ---
Subjective ROS Limited/Unobtainable: No Interval Events: None major reported per nursing Constitutional: Reports: no symptoms HEENT: Repors: no symptoms Respiratory: Reports: no symptoms Cardiovascular: Reports: no symptoms Gastrointestinal/Abdominal: Reports: no symptoms Genitourinary: Reports: no symptoms Allergies: Coded Allergies: PENICILLINS (Verified Allergy, Unknown, 04/23/20) Tolerated Cefepime 04/23/20 Objective Last 24 Hour Vital Signs Date Time Temp Pulse Resp B/P (MAP) Pulse Ox O2 Delivery O2 Flow Rate FiO2 11/28/20 04:00 60 11/28/20 04:00 97.7 61 16 123/52 (75) 96 11/28/20 00:00 98.3 61 16 118/51 (73) 95 11/28/20 00:00 60 11/27/20 21:00 60 100/51 11/27/20 21:00 Room Air 11/27/20 20:00 98.2 61 16 120/53 (75) 99 11/27/20 20:00 60 11/27/20 16:00 60 11/27/20 16:00 97.5 62 20 105/63 (77) 96 11/27/20 12:00 97.9 60 18 108/60 (76) 97 11/27/20 12:00 60 11/27/20 09:00 Room Air 11/27/20 09:00 60 118/66 11/27/20 08:00 97.7 60 20 118/66 (83) 96 11/27/20 08:00 60 Intake and Output 11/27/20 11/28/20 19:00 07:00 Intake Total 360 ml 480 ml Balance 360 ml 480 ml Intake Oral 360 ml 480 ml General Appearance: no acute distress HEENT: atraumatic Respiratory: lungs clear Cardiovascular: normal rate, regular rhythm Abdomen: soft, non tender Laboratory Tests 11/27/20 08:30: White Blood Count 5.5, Red Blood Count 3.34L, Hemoglobin 10.1L, Hematocrit 33.0L , Mean Corpuscular Volume 99, Mean Corpuscular Hemoglobin 30.3, Mean Corpuscular Hemoglobin Concent 30.7L, Red Cell Distribution Width 16.4H, Platelet Count 173, Mean Platelet Volume 7.5, Neutrophils (%) (Auto) 54.6, Lymphocytes (%) (Auto) 28.6, Monocytes (%) (Auto) 10.2H, Eosinophils (%) (Auto) 5.3H, Basophils (%) (Auto) 1.3, Sodium Level 141, Potassium Level 4.1, Chloride Level 104, Carbon Dioxide Level 31, Anion Gap 6, Blood Urea Nitrogen 36H, Creatinine 5.3H, Estimat Glomerular Filtration Rate 9.6, Glucose Level 125H, Uric Acid 4.0, Calcium Level 8.9, Phosphorus Level 2.4L, Magnesium Level 2.7H, Total Bilirubin 0.3, Aspartate Amino Transf (AST/SGOT) 14L, Alanine Aminotransferase (ALT/SGPT) 10L, Alkaline Phosphatase 64, C-Reactive Protein, Quantitative 2.0H, Pro-B-Type Natriuretic Peptide 7801H, Total Protein 6.1L, Albumin 2.6L, Globulin 3.5, Albumin/Globulin Ratio 0.7L Current Medications Medications (Trade) Dose Ordered Sig/Jesus Route PRN Reason Start Time Stop Time Status Last Admin Dose Admin Acetaminophen (Tylenol) 650 mg Q4H PRN ORAL Mild Pain (Pain Scale 1-3) 11/24/20 15:45 12/24/20 15:44 Acetaminophen/ Hydrocodone Bitart ([place] 10/325) 1 tab Q4H PRN ORAL Severe Pain (Pain Scale 7-10) 11/25/20 12:15 12/02/20 12:14 Acetaminophen/ Hydrocodone Bitart ([place] 5/325) 1 tab Q4H PRN ORAL Moderate Pain (Pain Scale 4-6) 11/24/20 15:45 12/01/20 15:44 Apixaban (Eliquis) 2.5 mg BID ORAL 11/24/20 18:00 02/22/21 17:59 11/27/20 17:50 Aspirin (ASA) 81 mg DAILY ORAL 11/25/20 09:00 01/09/21 08:59 11/27/20 09:36 Atorvastatin Calcium (Lipitor) 20 mg BEDTIME ORAL 11/24/20 21:00 02/22/21 20:59 11/27/20 22:20 Calcium Acetate (Phoslo) 667 mg TID ORAL 11/24/20 18:00 02/22/21 17:59 11/27/20 17:50 Chlorhexidine Gluconate (Cira-Hex 2%) 1 applic DAILY@1999/18/21 20:00 02/23/21 19:59 11/27/20 22:18 Docusate Sodium (Colace) 100 mg TID ORAL 11/24/20 18:00 12/24/20 17:59 11/27/20 17:50 Gabapentin (Neurontin) 100 mg TID ORAL 11/24/20 18:00 12/24/20 17:59 11/27/20 17:50 Metoprolol Tartrate (Lopressor) 12.5 mg Q12HR ORAL 11/27/20 09:00 02/22/21 20:59 Pantoprazole (Protonix) 40 mg DAILY ORAL 11/25/20 09:00 12/25/20 08:59 11/27/20 09:36 Zolpidem Tartrate (Ambien) 5 mg HSPRN PRN ORAL Insomnia 11/25/20 21:00 12/02/20 20:59 Assessment/Plan Assessment/Plan 1. Hypertension 2. Anemia, 3. Hypoxic respiratory distress; resolved -COVID-19 negative -Currently saturating well on room air -Provide supplemental oxygen as needed 4. History of asthma -Patient reports distant history of asthma and denies using any inhalers within the past few years 5. History of COPD -Patient denies use of home oxygen -Provide supplemental oxygen as needed 6. Elevated D-dimer -Her home medications include Eliquis; continue Eliquis 7. ESRD on dialysis Suraj Roe MD Nov 28, 2020 07:46
[2020-11-28 08:00] VITALS: BP 130/59
[2020-11-28] MEDS: Docusate 100mg cap ORAL SCH ×3 (08:22→17:13)
[2020-11-28] MEDS: Eliquis 2.5mg tablet ORAL SCH ×2 (08:22→17:13)
[2020-11-28] MEDS: Aspirin Baby 81mg ORAL SCH (08:22)
--- NOTE | 2020-11-28 10:03 | Cardiology Report ---
APPROVED REPORT EXAM: Two-dimensional and M-mode echocardiogram with Doppler and color Doppler. INDICATION Congestive Heart Failure M-Mode DIMENSIONS IVSd1.3 (0.7-1.1cm)Left Atrium (MM)4.7 (1.6-4.0cm) LVDd4.9 (3.5-5.6cm)Aortic Root3.9 (2.0-3.7cm) PWd1.2 (0.7-1.1cm)Aortic Cusp Exc.2.0 (1.5-2.0cm) IVSs1.9 cmEPSS0.5 (>1.0cm) LVDs3.2 (2.5-4.0cm) PWs1.7 cm <Conclusion> Technically difficult study due to poor parasternal acoustical windows. Study quality precludes accurate assessment of regional wall motion. Normal left ventricular chamber size, systolic function and wall motion to extent visualized. Left ventricular ejection fraction estimated to be 55%. Mild left ventricular hypertrophy by 2-D. No evidence of pericardial effusion. All other cardiac chamber sizes are within normal limits. Focal aortic valve sclerosis with adequate cusp excursion. Thickened mitral valve leaflets with normal excursion. Mitral annulus and aortic root calcification. Pulmonic valve not well visualized. Normal tricuspid valve structure. IVC at normal size with physiologic collapse. A color flow and spectral Doppler study was performed and revealed: No aortic regurgitation. Mild mitral regurgitation. Normal left ventricular diastolic function. Trace tricuspid regurgitation. Tricuspid systolic velocities suggests peak right ventricular systolic pressure of 28 mmHg. Moderate pulmonic regurgitation present.
--- NOTE | 2020-11-28 11:27 | NUR ---
RD ASSESSMENT & RECOMMENDATIONS SEE CARE ACTIVITY FOR COMPLETE ASSESSMENT DAILY ESTIMATED NEEDS: Needs based on ESRD on HD, wound, obese 70kg abw 20-25 kcals/kg [id number] total kcals 1.8-2.5 IBW 56.8kg g protein/kg 102-142 g total protein Fluid per MD on HD NUTRITION DIAGNOSIS: Increased protein needs r/t renal dysfunction and wound healing as evidenced by pt w/ ESRD on HD, w/ multiple wounds, refer to WC eval. CURRENT DIET: Renal / CCHO MED soft PO DIET RECOMMENDATIONS: RENAL DIET+ DOUBLE PRO PORTIONS / texture per MACHINE [employer]OP [employer]ER ADDITIONAL RECOMMENDATIONS: 1) Calibrate bed scale for accurate CBW 2) Add NEPRO 1 tetra w/ meals w/ variable po intake (19g pro/425 kcal) 3) Wound care: continue SOLEDAD BID + Add Nephrovite x1 daily Vit C-> dosing per MD/nephro 4) W/ improved po intake, rec additional Cardiac diet . .
[2020-11-28 12:02] VITALS: BP 136/95
--- NOTE | 2020-11-28 12:56 | Surgery Progress Note ---
Surgery Progress Note Subjective Symptoms: improved, tolerating diet, passing flatus Objective Last 24 Hour Vital Signs Date Time Temp Pulse Resp B/P (MAP) Pulse Ox O2 Delivery O2 Flow Rate FiO2 11/28/20 12:02 98.7 67 18 136/95 (109) 96 11/28/20 09:00 Room Air 11/28/20 08:23 83 130/59 11/28/20 08:00 60 11/28/20 08:00 98.2 83 19 130/59 (82) 97 11/28/20 04:00 60 11/28/20 04:00 97.7 61 16 123/52 (75) 96 11/28/20 00:00 98.3 61 16 118/51 (73) 95 11/28/20 00:00 60 11/27/20 21:00 60 100/51 11/27/20 21:00 Room Air 11/27/20 20:00 98.2 61 16 120/53 (75) 99 11/27/20 20:00 60 11/27/20 16:00 60 11/27/20 16:00 97.5 62 20 105/63 (77) 96 I&O Intake and Output 11/27/20 11/28/20 19:00 07:00 Intake Total 360 ml 480 ml Balance 360 ml 480 ml Intake Oral 360 ml 480 ml Dressing: saturated Cardiovascular: RSR Respiratory: clear Abdomen: soft, non-tender, present bowel sounds, non-distended Extremities: no edema, no tenderness, no cyanosis Plan Problems: (1) COPD (chronic obstructive pulmonary disease) (2) Hyperkalemia (3) Generalized weakness (4) Bradycardia (5) ESRD (end stage renal disease) (6) Diabetic nephropathy (7) Diabetic nephropathy (8) Chest pressure (9) Pacemaker (10) Hypertensive kidney disease (11) History of atrial fibrillation (12) ESRD (end stage renal disease) on dialysis (13) History of CVA (cerebrovascular accident) (14) Volume overload (15) Cellulitis of left foot (16) Heel abrasion (17) Episode of generalized weakness (18) Anemia in chronic kidney disease (CKD) (19) Elevated troponin I level (20) Urinary tract infection due to Proteus (21) Deep tissue injury Assessment & Plan: Morbidly obese pt whom presented on admission with MASD and Multiple Pressure Injuries. Moisture Intertrigo noted to Skin folds of L breast, abdominal folds and L groin. Full thickness stage 3 Sacral Pressure Injury that is resolving (L)11.5cm x (W)10.3cm. Base of wound is 20% slough ,80% mixed pink epithelial and red granulation. Small amt non-odorous serous exudate noted Hyperpigmentation periwound. Full thickness stage 3 Pressure Injury L Ischium(L)1.2cm x (W)5.3cm. Base of wound is 50% slough,50% beefy red. Edges are macerated. Periwound is erythematous without induration or changes in skin temp. Unstageable Pressure Injury L heel with Loose necrotic cap(L)2.5cm x (W)3cm. 75% loose non-viable cap easily removed. Remaining 25% Necrosis that is adherent to base of wound . with surrounding pink epithelial. Periwound is boggy but blanchable. R heel is boggy but blanchable. Both feet are mottled and cool to touch. Xerotic skin bilat lower extremities and both feet. Tx.Plan: Cleanse Sacral wound with Saline. Apply Therahoney to slough. Apply Moisture Barrier Paste periwound. Cover with Optifoam drsg. Change Daily and prn. Cleanse L Ischial wound with Saline. Apply TheraHoney. Apply Moisture Barrier Paste periwound. Cover with Optifoam drsg Daily and prn. Wash skin folds with Tepid soap and water. Pat dry. Apply Light dusting of Remedy Antifungal powder to Skin Folds of both breasts, Abdominal folds, and Bilat Groin Twice Daily. Apply Betadine to L heel. Cover with Optifoam drsg. Change every 3 days and prn. Moisturize both lower extremities with lotion Daily. Reposition at least every 2hours or as tolerated. Off-load heels with Pillow. APM/LUCIANA Mattress overlay. (22) Dyspnea (23) Symptomatic anemia (24) Acute on chronic renal failure (25) Anemia (26) HTN (hypertension) Luis Alberto Cade Nov 28, 2020 12:56
--- NOTE | 2020-11-28 14:01 | Nephrology Progress Note ---
Assessment/Plan Problem List: (1) ESRD (end stage renal disease) (2) Diabetic nephropathy (3) Pacemaker (4) Hypertensive kidney disease (5) History of CVA (cerebrovascular accident) (6) Anemia in chronic kidney disease (CKD) Assessment 70-year-old female with end-stage renal disease presents with chest pressure History of diabetes mellitus with nephropathy and neuropathy Previous CVA with left weakness Pacemaker paroxysmal atrial fibrillation Hypertension Hyperlipemia Anemia Allergy to penicillin Plan November 28: Due for dialysis today. Labs reviewed. Medication list reviewed. Clinically stable. Continue per consultants. November 27: Dialyzed yesterday. Will attempt to dialyze tomorrow again. Nitropaste discontinued. Continue per consultants. Labs reviewed. Medication list reviewed. November 26: Comfortable. Due for dialysis today. Blood pressure hovering around 90 to 100 systolic. Lopressor dose decreased. Albumin for BP support during dialysis. Will check lab tomorrow. Continue per consultants. November 25: No chest pain today. Labs reviewed. Medication list reviewed. Hemodialysis in a.m. Patient has normal right chest permacath however has right arm fistula which was used for the first time yesterday Continue per cardiology advice Keep the blood pressure blood sugar in check Hemodialysis in a.m. Per orders Subjective ROS Limited/Unobtainable: No Constitutional: Reports: malaise Objective Objective Last 24 Hour Vital Signs Date Time Temp Pulse Resp B/P (MAP) Pulse Ox O2 Delivery O2 Flow Rate FiO2 11/28/20 12:02 98.7 67 18 136/95 (109) 96 11/28/20 09:00 Room Air 11/28/20 08:23 83 130/59 11/28/20 08:00 60 11/28/20 08:00 98.2 83 19 130/59 (82) 97 11/28/20 04:00 60 11/28/20 04:00 97.7 61 16 123/52 (75) 96 11/28/20 00:00 98.3 61 16 118/51 (73) 95 11/28/20 00:00 60 11/27/20 21:00 60 100/51 11/27/20 21:00 Room Air 11/27/20 20:00 98.2 61 16 120/53 (75) 99 11/27/20 20:00 60 11/27/20 16:00 60 11/27/20 16:00 97.5 62 20 105/63 (77) 96 Intake and Output 11/27/20 11/28/20 19:00 07:00 Intake Total 360 ml 480 ml Balance 360 ml 480 ml Intake Oral 360 ml 480 ml Current Medications Medications (Trade) Dose Ordered Sig/Jesus Route PRN Reason Start Time Stop Time Status Last Admin Dose Admin Acetaminophen (Tylenol) 650 mg Q4H PRN ORAL Mild Pain (Pain Scale 1-3) 11/24/20 15:45 12/24/20 15:44 Acetaminophen/ Hydrocodone Bitart ([place] 10/325) 1 tab Q4H PRN ORAL Severe Pain (Pain Scale 7-10) 11/25/20 12:15 12/02/20 12:14 Acetaminophen/ Hydrocodone Bitart ([place] 5/325) 1 tab Q4H PRN ORAL Moderate Pain (Pain Scale 4-6) 11/24/20 15:45 12/01/20 15:44 Apixaban (Eliquis) 2.5 mg BID ORAL 11/24/20 18:00 02/22/21 17:59 11/28/20 08:22 Aspirin (ASA) 81 mg DAILY ORAL 11/25/20 09:00 01/09/21 08:59 11/28/20 08:22 Atorvastatin Calcium (Lipitor) 20 mg BEDTIME ORAL 11/24/20 21:00 02/22/21 20:59 11/27/20 22:20 Chlorhexidine Gluconate (Cira-Hex 2%) 1 applic DAILY@2000 TOPIC 11/25/20 20:00 02/23/21 19:59 11/27/20 22:18 Docusate Sodium (Colace) 100 mg TID ORAL 11/24/20 18:00 12/24/20 17:59 11/28/20 08:22 Gabapentin (Neurontin) 100 mg TID ORAL 11/24/20 18:00 12/24/20 17:59 11/28/20 08:22 Metoprolol Tartrate (Lopressor) 12.5 mg Q12HR ORAL 11/27/20 09:00 02/22/21 20:59 Pantoprazole (Protonix) 40 mg DAILY ORAL 11/25/20 09:00 12/25/20 08:59 11/28/20 08:22 Zolpidem Tartrate (Ambien) 5 mg HSPRN PRN ORAL Insomnia 11/25/20 21:00 12/02/20 20:59 Height (Feet): 5 Height (Inches): 4.00 Weight (Pounds): 170 General Appearance: no apparent distress Cardiovascular: normal rate Respiratory/Chest: decreased breath sounds Abdomen: soft Manas Stephenson MD Nov 28, 2020 14:01
[2020-11-28 16:00] VITALS: BP 127/51
--- NOTE | 2020-11-28 17:00 | NUR ---
NURSE NOTES: HD COMPLETED WITH 1L OUT. WILL CONTINUE TO MONITOR.
--- NOTE | 2020-11-28 19:03 | NUR ---
NURSE HAND-OFF REPORT: Important Events on Shift:[HD COMPLETED; CENTRAL LINES DRY, CLEAN AND INTACT. ] Patient Status: [FC] Diet: [RENAL, CCHO MED SOFT EASY CHEW] Pending Orders: [] Pending Results/Labs:[] Pending MD notification:[] Latest Vital Signs: Temperature 99.3 , Pulse 63 , B/P 127 /51 , Respiratory Rate 18 , O2 SAT 93 , Room Air, O2 Flow Rate . Vital Sign Comment: [] EKG Rhythm: A-Paced Rhythm change?: N Notified?: N -Dr. Makenzie COLEY Response: Latest Srivastava Fall Score: 70 Fall Risk: High Risk Safety Measures: Call light Within Reach, Bed Alarm Zone 2, Side Rails Side Rails x3, Bed position Low and Locked. Fall Precautions: Yellow Socks Door Sign Patient Fall Education Report given to [JAROD].
--- NOTE | 2020-11-28 19:22 | General Progress Note ---
Subjective Allergies: Coded Allergies: PENICILLINS (Verified Allergy, Unknown, 04/23/20) Tolerated Cefepime 04/23/20 Objective Last 24 Hour Vital Signs Date Time Temp Pulse Resp B/P (MAP) Pulse Ox O2 Delivery O2 Flow Rate FiO2 11/28/20 16:00 99.3 63 18 127/51 (76) 93 11/28/20 16:00 60 11/28/20 12:02 98.7 67 18 136/95 (109) 96 11/28/20 12:00 60 11/28/20 09:00 Room Air 11/28/20 08:23 83 130/59 11/28/20 08:00 60 11/28/20 08:00 98.2 83 19 130/59 (82) 97 11/28/20 04:00 60 11/28/20 04:00 97.7 61 16 123/52 (75) 96 11/28/20 00:00 98.3 61 16 118/51 (73) 95 11/28/20 00:00 60 11/27/20 21:00 60 100/51 11/27/20 21:00 Room Air 11/27/20 20:00 98.2 61 16 120/53 (75) 99 11/27/20 20:00 60 Intake and Output 11/27/20 11/28/20 19:00 07:00 Intake Total 360 ml 480 ml Balance 360 ml 480 ml Intake Oral 360 ml 480 ml Height (Feet): 5 Height (Inches): 4.00 Weight (Pounds): 170 Assessment/Plan Status: stable Assessment/Plan: S: I am ok O: mild discomfort in back reported . PHYSICAL EXAMINATION: Left IJ central line noted . HEAD AND NECK: Atraumatic and normocephalic. CHEST: Clear to auscultation. HEART: S1, S2. Regular rate and rhythm. Bradycardic. MUSCULOSKELETAL: No gross lateralized motor deficit, paraparesis. stage 3 decubitus wound in sacral and calcaneal region.NEUROLOGIC: The patient is awake and alert x 2. LABORATORY AND DIAGNOSTIC DATA: Labs dated 11/27/20 reviewed ASSESSMENT: 1. Hypoxemic respiratory failure secondary to volume over load 2. Decubitus wound, enlarging 3. End-stage renal disease, on temporary PermCath hemodialysis access. 2. Paroxysmal atrial fibrillation, rate is stable. 3. Diabetes type 2. 4. Hypertension. 5. Hyperlipidemia. 6. CVA-history. 7. Dementia. 8. Gastrointestinal and deep vein thrombosis prophylaxes. 9. Pain management Plan: HD- per Nephrology Nephrology , Dr Stephenson consulted. Agree with Tele floor admission pensions retirement plan specialist, Cardiology are notified Wound mgt. add [place] 10 for severe pain Given relative low BP, I stop Hydralazine and monitor notes from docketing specialist reviwed notes from nephrology reviewed Danie Banegas MD Nov 28, 2020 19:22
[2020-11-28 20:00] VITALS: BP 111/50
[2020-11-28] MEDS: Dyna-Hex 2% Top Sol 2oz TOPIC SCH (20:52)
[2020-11-28] MEDS: Atorvastatin 20mg tab ORAL SCH (20:52)
--- NOTE | 2020-11-28 22:40 | Cardiology Progress Note ---
Assessment/Plan Status Narrative 1. ESRD on HD aneuric 2. Chest pain - troponin 0.02 improved after HD ACS unlikely 3. HFpEF, chronic diastolic HF with preserved EF 55% BNP elevated 4. h/o CVA 5. HTN 6. HPLD HD with Permacath. Pt denies CP. Troponin leak downtrended, ACS unlikely. EKG SR. SBP and HR controlled. Subjective Subjective Resting comfortably, breathing easily Objective Last 24 Hour Vital Signs Date Time Temp Pulse Resp B/P (MAP) Pulse Ox O2 Delivery O2 Flow Rate FiO2 11/28/20 21:00 Room Air 11/28/20 20:52 61 106/49 11/28/20 20:00 98.3 60 20 111/50 (70) 97 11/28/20 20:00 60 11/28/20 16:00 99.3 63 18 127/51 (76) 93 11/28/20 16:00 60 11/28/20 12:02 98.7 67 18 136/95 (109) 96 11/28/20 12:00 60 11/28/20 09:00 Room Air 11/28/20 08:23 83 130/59 11/28/20 08:00 60 11/28/20 08:00 98.2 83 19 130/59 (82) 97 11/28/20 04:00 60 11/28/20 04:00 97.7 61 16 123/52 (75) 96 11/28/20 00:00 98.3 61 16 118/51 (73) 95 11/28/20 00:00 60 Intake and Output 11/27/20 11/28/20 19:00 07:00 Intake Total 360 ml 480 ml Balance 360 ml 480 ml Intake Oral 360 ml 480 ml # Bowel Movements 1 Luda Petty PA-C Nov 28, 2020 22:40
[2020-11-29] VITALS: BP 129/50
[2020-11-29 04:00] VITALS: BP 128/53
--- NOTE | 2020-11-29 04:52 | NUR ---
NURSE NOTES: RECEIVED PATIENT LYING IN BED, AWAKE, ALERT/ORIENTED X3, VERBALLY RESPONSIVE, HEMODIALYSIS ONGOING VIA RIGHT SUBCLAVIAN CATHETER, NO ILL EFFECTS REPORTED FROM PROCEDURE. VITALS STABLE, AFEBRILE, NO SIGNS AND SYMPTOMS OF ACUTE CARDIO RESPIRATORY DISTRESS/SHORTNESS OF BREATH, DENIES CHEST PAIN.. A PACED ON ADVENTURE THERAPIST. TRIPLE LUMEN CATHETER INTACT TO LEFT IJ, CLAMPED. ABDOMEN SOFT/NON DISTENDED/AUDIBLE BOWEL SOUNDS, DENIES N/V/D. SIDE RAILS UP X3/BED IN LOWEST POSITION FOR SAFETY, ENCOURAGED PATIENT TO UTILIZE CALL LIGHT FOR ASSISTANCE, VERBALIZED UNDERSTANDING, CONTINUE WITH CURRENT PLAN OF CARE. BED ALARM ACTIVATED.
[2020-11-29 06:11] LABS: BASOPHILS % (AUTO) 1.3 % (0.0-2.0); EOSINOPHILS % (AUTO) 5.5 % (0.0-3.0); HEMATOCRIT 31.6 % (37.0-47.0); HEMOGLOBIN 9.7 G/DL (12.0-16.0); LYMPHOCYTES % (AUTO) 34.1 % (20.0-45.0); MEAN CORPUSCULAR VOLUME 97 FL (80-99); MONOCYTES % (AUTO) 10.6 % (1.0-10.0); NEUTROPHILS % (AUTO) 48.6 % (45.0-75.0); PLATELET COUNT 164 K/UL (150-450); RED BLOOD COUNT 3.26 M/UL (4.20-5.40); RED CELL DISTRIBUTION WIDTH 16.7 % (11.6-14.8); WHITE BLOOD COUNT 6.1 K/UL (4.8-10.8)
[2020-11-29 06:26] LABS: ALANINE AMINOTRANSFERASE < 6 U/L (12-78); ALBUMIN 2.4 G/DL (3.4-5.0); ALBUMIN/GLOBULIN RATIO 0.7 (1.0-2.7); ALKALINE PHOSPHATASE 63 U/L (46-116); ANION GAP 5 mmol/L (5-15); ASPARTATE AMINO TRANSFERASE 12 U/L (15-37); BILIRUBIN,TOTAL 0.4 MG/DL (0.2-1.0); BLOOD UREA NITROGEN 34 mg/dL (7-18); CARBON DIOXIDE 29 MMOL/L (21-32); CHLORIDE 105 MMOL/L (98-107); CREATININE 5.2 MG/DL (0.55-1.30); PHOSPHORUS 2.3 MG/DL (2.5-4.9); POTASSIUM 3.9 MMOL/L (3.5-5.1); SODIUM 139 MMOL/L (136-145)
--- NOTE | 2020-11-29 07:48 | NUR ---
NURSE HAND-OFF REPORT: Important Events on Shift:[HD REMOVED 1L, NO ILL EFFECTS NOTED FROM PROCEDURE; UNEVENTFUL NIGHT, RESTED WELL, NO COMPLAINTS OF PAIN/DISCOMFORT] Patient Status: [FULL CODE] Diet: [RENAL CCHO M SOFT EASY CHEW - 1:1 FEEDER] Pending Orders: [AM LABS] Pending Results/Labs:[] Pending MD notification:[] Latest Vital Signs: Temperature 98.9 , Pulse 60 , B/P 128 /53 , Respiratory Rate 20 , O2 SAT 96 , Room Air, O2 Flow Rate . Vital Sign Comment: [STABLE, AFEBRILE] EKG Rhythm: A-Paced Rhythm change?: N Notified?: N -Dr. Makenzie COLEY Response: Latest Srivastava Fall Score: 70 Fall Risk: High Risk Safety Measures: Call light Within Reach, Bed Alarm Zone 1, Side Rails Side Rails x2, Bed position Low and Locked. Fall Precautions: Yellow Socks Door Sign Patient Fall Education Report given to [VIKAS WEISS].
--- NOTE | 2020-11-29 07:58 | NUR ---
Commercial Service Technician: received patient report from sonja juan. patient si on bed awake, comfortable eating breakfast. no acute events reported last night.a-pacing. sp HD on 11/28, 1 li out.on Ra tolerating well.will follow plan of care.
[2020-11-29 08:00] VITALS: BP 126/44
[2020-11-29] MEDS: Eliquis 2.5mg tablet ORAL SCH ×2 (08:14→17:06)
[2020-11-29] MEDS: Aspirin Baby 81mg ORAL SCH (08:14)
[2020-11-29] MEDS: Docusate 100mg cap ORAL SCH ×3 (08:14→17:06)
--- NOTE | 2020-11-29 10:38 | Nephrology Progress Note ---
Assessment/Plan Problem List: (1) ESRD (end stage renal disease) (2) Diabetic nephropathy (3) Pacemaker (4) Hypertensive kidney disease (5) History of CVA (cerebrovascular accident) (6) Anemia in chronic kidney disease (CKD) Assessment 70-year-old female with end-stage renal disease presents with chest pressure History of diabetes mellitus with nephropathy and neuropathy Previous CVA with left weakness Pacemaker paroxysmal atrial fibrillation Hypertension Hyperlipemia Anemia Allergy to penicillin Plan November 29: Dialyzed yesterday. Labs reviewed. Medication list reviewed. Next dialysis tomorrow. Stable from renal standpoint of view. November 28: Due for dialysis today. Labs reviewed. Medication list reviewed. Clinically stable. Continue per consultants. November 27: Dialyzed yesterday. Will attempt to dialyze tomorrow again. Nitropaste discontinued. Continue per consultants. Labs reviewed. Medication list reviewed. November 26: Comfortable. Due for dialysis today. Blood pressure hovering around 90 to 100 systolic. Lopressor dose decreased. Albumin for BP support during dialysis. Will check lab tomorrow. Continue per consultants. November 25: No chest pain today. Labs reviewed. Medication list reviewed. Hemodialysis in a.m. Patient has normal right chest permacath however has right arm fistula which was used for the first time yesterday Continue per cardiology advice Keep the blood pressure blood sugar in check Hemodialysis in a.m. Per orders Subjective ROS Limited/Unobtainable: No Constitutional: Reports: malaise Objective Objective Last 24 Hour Vital Signs Date Time Temp Pulse Resp B/P (MAP) Pulse Ox O2 Delivery O2 Flow Rate FiO2 11/29/20 08:14 59 126/44 11/29/20 08:00 97.9 59 18 126/44 (71) 100 11/29/20 08:00 60 11/29/20 08:00 Room Air 11/29/20 04:00 98.9 64 20 128/53 (78) 96 11/29/20 04:00 60 11/29/20 00:00 99.1 60 20 129/50 (76) 96 11/29/20 00:00 60 11/28/20 21:00 Room Air 11/28/20 20:52 61 106/49 11/28/20 20:00 98.3 60 20 111/50 (70) 97 11/28/20 20:00 60 11/28/20 16:00 99.3 63 18 127/51 (76) 93 11/28/20 16:00 60 11/28/20 12:02 98.7 67 18 136/95 (109) 96 11/28/20 12:00 60 Intake and Output 11/28/20 11/29/20 19:00 07:00 Intake Total 1200 ml 300 ml Output Total 1200 ml Balance 0 ml 300 ml Intake Oral 1200 ml 300 ml Output Urine Total 1200 ml # Voids 3 Current Medications Medications (Trade) Dose Ordered Sig/Jesus Route PRN Reason Start Time Stop Time Status Last Admin Dose Admin Acetaminophen (Tylenol) 650 mg Q4H PRN ORAL Mild Pain (Pain Scale 1-3) 11/24/20 15:45 12/24/20 15:44 Acetaminophen/ Hydrocodone Bitart ([place] 10/325) 1 tab Q4H PRN ORAL Severe Pain (Pain Scale 7-10) 11/25/20 12:15 12/02/20 12:14 Acetaminophen/ Hydrocodone Bitart ([place] 5/325) 1 tab Q4H PRN ORAL Moderate Pain (Pain Scale 4-6) 11/24/20 15:45 12/01/20 15:44 Apixaban (Eliquis) 2.5 mg BID ORAL 11/24/20 18:00 02/22/21 17:59 11/29/20 08:14 Aspirin (ASA) 81 mg DAILY ORAL 11/25/20 09:00 01/09/21 08:59 11/29/20 08:14 Atorvastatin Calcium (Lipitor) 20 mg BEDTIME ORAL 11/24/20 21:00 02/22/21 20:59 11/28/20 20:52 Chlorhexidine Gluconate (Cira-Hex 2%) 1 applic DAILY@1999 TOPIC 11/25/20 20:00 02/23/21 19:59 11/28/20 20:52 Docusate Sodium (Colace) 100 mg TID ORAL 11/24/20 18:00 12/24/20 17:59 11/29/20 08:14 Gabapentin (Neurontin) 100 mg TID ORAL 11/24/20 18:00 12/24/20 17:59 11/29/20 08:14 Metoprolol Tartrate (Lopressor) 12.5 mg Q12HR ORAL 11/27/20 09:00 02/22/21 20:59 Pantoprazole (Protonix) 40 mg DAILY ORAL 11/25/20 09:00 12/25/20 08:59 11/29/20 08:14 Zolpidem Tartrate (Ambien) 5 mg HSPRN PRN ORAL Insomnia 11/25/20 21:00 12/02/20 20:59 Laboratory Tests 11/29/20 04:00: White Blood Count 6.1, Red Blood Count 3.26L, Hemoglobin 9.7L, Hematocrit 31.6L, Mean Corpuscular Volume 97, Mean Corpuscular Hemoglobin 29.9, Mean Corpuscular Hemoglobin Concent 30.8L, Red Cell Distribution Width 16.7H, Platelet Count 164, Mean Platelet Volume 6.8, Neutrophils (%) (Auto) 48.6, Lymphocytes (%) (Auto) 34.1, Monocytes (%) (Auto) 10.6H, Eosinophils (%) (Auto) 5.5H, Basophils (%) (Auto) 1.3, Sodium Level 139, Potassium Level 3.9, Chloride Level 105, Carbon Dioxide Level 29, Anion Gap 5, Blood Urea Nitrogen 34H, Creatinine 5.2H, Estimat Glomerular Filtration Rate 9.9, Glucose Level 95, Calcium Level 9.0, Phosphorus Level 2.3L, Magnesium Level 2.4, Total Bilirubin 0.4, Aspartate Amino Transf (AST/SGOT) 12L, Alanine Aminotransferase (ALT/SGPT) < 6L, Alkaline Phosphatase 63, C-Reactive Protein, Quantitative 1.4H, Total Protein 5.8L, Albumin 2.4L, Globulin 3.4, Albumin/Globulin Ratio 0.7L Height (Feet): 5 Height (Inches): 4.00 Weight (Pounds): 170 General Appearance: no apparent distress Cardiovascular: normal rate Respiratory/Chest: decreased breath sounds Abdomen: soft Objective No change Manas Stephenson MD Nov 29, 2020 10:38
--- NOTE | 2020-11-29 10:43 | Surgery Progress Note ---
Surgery Progress Note Subjective Symptoms: improved, tolerating diet, voiding well, passing flatus, BM, pain decreased Objective Last 24 Hour Vital Signs Date Time Temp Pulse Resp B/P (MAP) Pulse Ox O2 Delivery O2 Flow Rate FiO2 11/29/20 08:14 59 126/44 11/29/20 08:00 97.9 59 18 126/44 (71) 100 11/29/20 08:00 60 11/29/20 08:00 Room Air 11/29/20 04:00 98.9 64 20 128/53 (78) 96 11/29/20 04:00 60 11/29/20 00:00 99.1 60 20 129/50 (76) 96 11/29/20 00:00 60 11/28/20 21:00 Room Air 11/28/20 20:52 61 106/49 11/28/20 20:00 98.3 60 20 111/50 (70) 97 11/28/20 20:00 60 11/28/20 16:00 99.3 63 18 127/51 (76) 93 11/28/20 16:00 60 11/28/20 12:02 98.7 67 18 136/95 (109) 96 11/28/20 12:00 60 I&O Intake and Output 11/28/20 11/29/20 19:00 07:00 Intake Total 1200 ml 300 ml Output Total 1200 ml Balance 0 ml 300 ml Intake Oral 1200 ml 300 ml Output Urine Total 1200 ml # Voids 3 Dressing: saturated Wound: clean Cardiovascular: RSR Respiratory: clear Abdomen: soft, non-tender, present bowel sounds, non-distended Extremities: no edema, no tenderness, no cyanosis Laboratory Tests Test 11/29/20 04:00 White Blood Count 6.1 K/UL (4.8-10.8) Red Blood Count 3.26 M/UL (4.20-5.40) L Hemoglobin 9.7 G/DL (12.0-16.0) L Hematocrit 31.6 % (37.0-47.0) L Mean Corpuscular Volume 97 FL (80-99) Mean Corpuscular Hemoglobin 29.9 PG (27.0-31.0) Mean Corpuscular Hemoglobin Concent 30.8 G/DL (32.0-36.0) L Red Cell Distribution Width 16.7 % (11.6-14.8) H Platelet Count 164 K/UL (150-450) Mean Platelet Volume 6.8 FL (6.5-10.1) Neutrophils (%) (Auto) 48.6 % (45.0-75.0) Lymphocytes (%) (Auto) 34.1 % (20.0-45.0) Monocytes (%) (Auto) 10.6 % (1.0-10.0) H Eosinophils (%) (Auto) 5.5 % (0.0-3.0) H Basophils (%) (Auto) 1.3 % (0.0-2.0) Sodium Level 139 MMOL/L (136-145) Potassium Level 3.9 MMOL/L (3.5-5.1) Chloride Level 105 MMOL/L (98-107) Carbon Dioxide Level 29 MMOL/L (21-32) Anion Gap 5 mmol/L (5-15) Blood Urea Nitrogen 34 mg/dL (7-18) H Creatinine 5.2 MG/DL (0.55-1.30) H Estimat Glomerular Filtration Rate 9.9 mL/min (>60) Glucose Level 95 MG/DL (74-106) Calcium Level 9.0 MG/DL (8.5-10.1) Phosphorus Level 2.3 MG/DL (2.5-4.9) L Magnesium Level 2.4 MG/DL (1.8-2.4) Total Bilirubin 0.4 MG/DL (0.2-1.0) Aspartate Amino Transf (AST/SGOT) 12 U/L (15-37) L Alanine Aminotransferase (ALT/SGPT) < 6 U/L (12-78) L Alkaline Phosphatase 63 U/L (46-116) C-Reactive Protein, Quantitative 1.4 mg/dL (0.00-0.90) H Total Protein 5.8 G/DL (6.4-8.2) L Albumin 2.4 G/DL (3.4-5.0) L Globulin 3.4 g/dL Albumin/Globulin Ratio 0.7 (1.0-2.7) L Plan Problems: (1) COPD (chronic obstructive pulmonary disease) (2) Hyperkalemia (3) Generalized weakness (4) Bradycardia (5) ESRD (end stage renal disease) (6) Diabetic nephropathy (7) Diabetic nephropathy (8) Chest pressure (9) Pacemaker (10) Hypertensive kidney disease (11) History of atrial fibrillation (12) ESRD (end stage renal disease) on dialysis (13) History of CVA (cerebrovascular accident) (14) Volume overload (15) Cellulitis of left foot (16) Heel abrasion (17) Episode of generalized weakness (18) Anemia in chronic kidney disease (CKD) (19) Elevated troponin I level (20) Urinary tract infection due to Proteus (21) Deep tissue injury Assessment & Plan: Morbidly obese pt whom presented on admission with MASD and Multiple Pressure Injuries. Moisture Intertrigo noted to Skin folds of L breast, abdominal folds and L groin. Full thickness stage 3 Sacral Pressure Injury that is resolving (L)11.5cm x (W)10.3cm. Base of wound is 20% slough ,80% mixed pink epithelial and red granulation. Small amt non-odorous serous exudate noted Hyperpigmentation periwound. Full thickness stage 3 Pressure Injury L Ischium(L)1.2cm x (W)5.3cm. Base of wound is 50% slough,50% beefy red. Edges are macerated. Periwound is erythematous without induration or changes in skin temp. Unstageable Pressure Injury L heel with Loose necrotic cap(L)2.5cm x (W)3cm. 75% loose non-viable cap easily removed. Remaining 25% Necrosis that is adherent to base of wound . with surrounding pink epithelial. Periwound is boggy but blanchable. R heel is boggy but blanchable. Both feet are mottled and cool to touch. Xerotic skin bilat lower extremities and both feet. Tx.Plan: Cleanse Sacral wound with Saline. Apply Therahoney to slough. Apply Moisture Barrier Paste periwound. Cover with Optifoam drsg. Change Daily and prn. Cleanse L Ischial wound with Saline. Apply TheraHoney. Apply Moisture Barrier Paste periwound. Cover with Optifoam drsg Daily and prn. Wash skin folds with Tepid soap and water. Pat dry. Apply Light dusting of Remedy Antifungal powder to Skin Folds of both breasts, Abdominal folds, and Bilat Groin Twice Daily. Apply Betadine to L heel. Cover with Optifoam drsg. Change every 3 days and prn. Moisturize both lower extremities with lotion Daily. Reposition at least every 2hours or as tolerated. Off-load heels with Pillow. APM/LUCIANA Mattress overlay. (22) Dyspnea (23) Symptomatic anemia (24) Acute on chronic renal failure (25) Anemia (26) HTN (hypertension) Luis Alberto Cade Nov 29, 2020 10:43
--- NOTE | 2020-11-29 11:36 | General Progress Note ---
Subjective Allergies: Coded Allergies: PENICILLINS (Verified Allergy, Unknown, 04/23/20) Tolerated Cefepime 04/23/20 Objective Last 24 Hour Vital Signs Date Time Temp Pulse Resp B/P (MAP) Pulse Ox O2 Delivery O2 Flow Rate FiO2 11/29/20 08:14 59 126/44 11/29/20 08:00 97.9 59 18 126/44 (71) 100 11/29/20 08:00 60 11/29/20 08:00 Room Air 11/29/20 04:00 98.9 64 20 128/53 (78) 96 11/29/20 04:00 60 11/29/20 00:00 99.1 60 20 129/50 (76) 96 11/29/20 00:00 60 11/28/20 21:00 Room Air 11/28/20 20:52 61 106/49 11/28/20 20:00 98.3 60 20 111/50 (70) 97 11/28/20 20:00 60 11/28/20 16:00 99.3 63 18 127/51 (76) 93 11/28/20 16:00 60 11/28/20 12:02 98.7 67 18 136/95 (109) 96 11/28/20 12:00 60 Intake and Output 11/28/20 11/29/20 19:00 07:00 Intake Total 1200 ml 300 ml Output Total 1200 ml Balance 0 ml 300 ml Intake Oral 1200 ml 300 ml Output Urine Total 1200 ml # Voids 3 Laboratory Tests 11/29/20 04:00: White Blood Count 6.1, Red Blood Count 3.26L, Hemoglobin 9.7L, Hematocrit 31.6L, Mean Corpuscular Volume 97, Mean Corpuscular Hemoglobin 29.9, Mean Corpuscular Hemoglobin Concent 30.8L, Red Cell Distribution Width 16.7H, Platelet Count 164, Mean Platelet Volume 6.8, Neutrophils (%) (Auto) 48.6, Lymphocytes (%) (Auto) 34.1, Monocytes (%) (Auto) 10.6H, Eosinophils (%) (Auto) 5.5H, Basophils (%) (Auto) 1.3, Sodium Level 139, Potassium Level 3.9, Chloride Level 105, Carbon Di oxide Level 29, Anion Gap 5, Blood Urea Nitrogen 34H, Creatinine 5.2H, Estimat Glomerular Filtration Rate 9.9, Glucose Level 95, Calcium Level 9.0, Phosphorus Level 2.3L, Magnesium Level 2.4, Total Bilirubin 0.4, Aspartate Amino Transf (AST/SGOT) 12L, Alanine Aminotransferase (ALT/SGPT) < 6L, Alkaline Phosphatase 63, C-Reactive Protein, Quantitative 1.4H, Total Protein 5.8L, Albumin 2.4L, Globulin 3.4, Albumin/Globulin Ratio 0.7L Height (Feet): 5 Height (Inches): 4.00 Weight (Pounds): 170 Assessment/Plan Status: stable Assessment/Plan: S: I am ok O: mild discomfort in back reported . PHYSICAL EXAMINATION: Left IJ central line noted . HEAD AND NECK: Atraumatic and normocephalic. CHEST: Clear to auscultation. HEART: S1, S2. Regular rate and rhythm. Bradycardic. MUSCULOSKELETAL: No gross lateralized motor deficit, paraparesis. stage 3 decubitus wound in sacral and calcaneal region.NEUROLOGIC: The patient is awake and alert x 2. LABORATORY AND DIAGNOSTIC DATA: Labs dated 11/27/20 reviewed ASSESSMENT: 1. Hypoxemic respiratory failure secondary to volume over load 2. Decubitus wound, enlarging 3. End-stage renal disease, on temporary PermCath hemodialysis access. 2. Paroxysmal atrial fibrillation, rate is stable. 3. Diabetes type 2. 4. Hypertension. 5. Hyperlipidemia. 6. CVA-history. 7. Dementia. 8. Gastrointestinal and deep vein thrombosis prophylaxes. 9. Pain management Plan: HD- per Nephrology Nephrology , Dr Stephenson consulted. Agree with Tele floor admission mattress specialist, Cardiology are notified Wound mgt. add [place] 10 for severe pain Given relative low BP, I stop Hydralazine and monitor notes from media center specialist reviewed notes from nephrology reviewed post irrigation and wound off loading . alf poor prognosis for expansion of these Decubitus wounds Danie Banegas MD Nov 29, 2020 11:36
[2020-11-29 11:52] VITALS: BP 111/42
--- NOTE | 2020-11-29 11:59 | Pulmonology Progress Note ---
Subjective ROS Limited/Unobtainable: No Interval Events: None major reported per nursing Constitutional: Reports: no symptoms HEENT: Repors: no symptoms Respiratory: Reports: no symptoms Cardiovascular: Reports: no symptoms Gastrointestinal/Abdominal: Reports: no symptoms Genitourinary: Reports: no symptoms Allergies: Coded Allergies: PENICILLINS (Verified Allergy, Unknown, 04/23/20) Tolerated Cefepime 04/23/20 Objective Last 24 Hour Vital Signs Date Time Temp Pulse Resp B/P (MAP) Pulse Ox O2 Delivery O2 Flow Rate FiO2 11/29/20 11:52 97.5 60 18 111/42 (65) 94 11/29/20 08:14 59 126/44 11/29/20 08:00 97.9 59 18 126/44 (71) 100 11/29/20 08:00 60 11/29/20 08:00 Room Air 11/29/20 04:00 98.9 64 20 128/53 (78) 96 11/29/20 04:00 60 11/29/20 00:00 99.1 60 20 129/50 (76) 96 11/29/20 00:00 60 11/28/20 21:00 Room Air 11/28/20 20:52 61 106/49 11/28/20 20:00 98.3 60 20 111/50 (70) 97 11/28/20 20:00 60 11/28/20 16:00 99.3 63 18 127/51 (76) 93 11/28/20 16:00 60 11/28/20 12:02 98.7 67 18 136/95 (109) 96 11/28/20 12:00 60 Intake and Output 11/28/20 11/29/20 19:00 07:00 Intake Total 1200 ml 300 ml Output Total 1200 ml Balance 0 ml 300 ml Intake Oral 1200 ml 300 ml Output Urine Total 1200 ml # Voids 3 General Appearance: no acute distress HEENT: atraumatic Respiratory: lungs clear Cardiovascular: normal rate, regular rhythm Abdomen: soft, non tender Laboratory Tests 11/29/20 04:00: White Blood Count 6.1, Red Blood Count 3.26L, Hemoglobin 9.7L, Hematocrit 31.6L, Mean Corpuscular Volume 97, Mean Corpuscular Hemoglobin 29.9, Mean Corpuscular Hemoglobin Concent 30.8L, Red Cell Distribution Width 16.7H, Platelet Count 164, Mean Platelet Volume 6.8, Neutrophils (%) (Auto) 48.6, Lymphocytes (%) (Auto) 34.1, Monocytes (%) (Auto) 10.6H, Eosinophils (%) (Auto) 5.5H, Basophils (%) (Auto) 1.3, Sodium Level 139, Potassium Level 3.9, Chloride Level 105, Carbon Dioxide Level 29, Anion Gap 5, Blood Urea Nitrogen 34H, Creatinine 5.2H, Estimat Glomerular Filtration Rate 9.9, Glucose Level 95, Calcium Level 9.0, Phosphorus Level 2.3L, Magnesium Level 2.4, Total Bilirubin 0.4, Aspartate Amino Transf (AST/SGOT) 12L, Alanine Aminotransferase (ALT/SGPT) < 6L, Alkaline Phosphatase 63, C-Reactive Protein, Quantitative 1.4H, Total Protein 5.8L, Albumin 2.4L, Globulin 3.4, Albumin/Globulin Ratio 0.7L Current Medications Medications (Trade) Dose Ordered Sig/Jesus Route PRN Reason Start Time Stop Time Status Last Admin Dose Admin Acetaminophen (Tylenol) 650 mg Q4H PRN ORAL Mild Pain (Pain Scale 1-3) 11/24/20 15:45 12/24/20 15:44 Acetaminophen/ Hydrocodone Bitart ([place] 10/325) 1 tab Q4H PRN ORAL Severe Pain (Pain Scale 7-10) 11/25/20 12:15 12/02/20 12:14 Acetaminophen/ Hydrocodone Bitart ([place] 5/325) 1 tab Q4H PRN ORAL Moderate Pain (Pain Scale 4-6) 11/24/20 15:45 12/01/20 15:44 Apixaban (Eliquis) 2.5 mg BID ORAL 11/24/20 18:00 02/22/21 17:59 11/29/20 08:14 Aspirin (ASA) 81 mg DAILY ORAL 11/25/20 09:00 01/09/21 08:59 11/29/20 08:14 Atorvastatin Calcium (Lipitor) 20 mg BEDTIME ORAL 11/24/20 21:00 02/22/21 20:59 11/28/20 20:52 Chlorhexidine Gluconate (Cira-Hex 2%) 1 applic DAILY@1999 TOPIC 11/25/20 20:00 02/23/21 19:59 11/28/20 20:52 Docusate Sodium (Colace) 100 mg TID ORAL 11/24/20 18:00 12/24/20 17:59 11/29/20 08:14 Gabapentin (Neurontin) 100 mg TID ORAL 11/24/20 18:00 12/24/20 17:59 11/29/20 08:14 Metoprolol Tartrate (Lopressor) 12.5 mg Q12HR ORAL 11/27/20 09:00 02/22/21 20:59 Pantoprazole (Protonix) 40 mg DAILY ORAL 11/25/20 09:00 12/25/20 08:59 11/29/20 08:14 Zolpidem Tartrate (Ambien) 5 mg HSPRN PRN ORAL Insomnia 11/25/20 21:00 12/02/20 20:59 Assessment/Plan Assessment/Plan 1. Hypertension, likely secondary to #8 - controlled 2. Anemia, likely secondary to #8 3. Hypoxic respiratory distress; resolved -COVID-19 negative -Currently saturating well on room air -Provide supplemental oxygen as needed 4. History of asthma -Patient reports distant history of asthma and denies using any inhalers within the past few years 5. History of COPD -Patient denies use of home oxygen -Provide supplemental oxygen as needed 6. Elevated D-dimer -Her home medications include Eliquis; continue Eliquis 7. ESRD on dialysis - nephro following Medically stable from pulmonary standpoint The care for this patient was discussed with my supervising physician. Time spent for this case was approximately 31 minutes. Navin Morse Nov 29, 2020 11:59
--- NOTE | 2020-11-29 15:10 | NUR ---
NURSE NOTES: left a message to dr cullen clarifying if patients is for discharge today. awaiting callback and new order.
--- NOTE | 2020-11-29 15:12 | NUR ---
NURSE NOTES: dr cullen called back and stated that patient should go home [facility] after HD. will continue to monitor.
[2020-11-29 16:00] VITALS: BP 127/43
--- NOTE | 2020-11-29 18:58 | NUR ---
NURSE HAND-OFF REPORT: Important Events on Shift:dc [facility] after HD per makenzie Patient Status: full code Diet: renal ccho Pending Orders: hd [facility] Pending Results/Labs:[] Pending MD notification:[] Latest Vital Signs: Temperature 98.1 , Pulse 59 , B/P 127 /43 , Respiratory Rate 18 , O2 SAT 96 , Room Air, O2 Flow Rate . Vital Sign Comment: [] EKG Rhythm: a-pacing Rhythm change?: N MD Notified?: N -Dr. Makenzie COLEY Response: Latest Srivastava Fall Score: 70 Fall Risk: High Risk Safety Measures: Call light Within Reach, Bed Alarm Zone 2, Side Rails Side Rails x2, Bed position Low and Locked. Fall Precautions: Yellow Socks Door Sign Patient Fall Education Report given to eulalia juan.
[2020-11-29] MEDS: Dyna-Hex 2% Top Sol 2oz TOPIC SCH (20:35)
[2020-11-29] MEDS: Atorvastatin 20mg tab ORAL SCH (20:35)
[2020-11-29 20:49] VITALS: BP 124/44
[2020-11-30] VITALS: BP 104/45
--- NOTE | 2020-11-30 01:17 | NUR ---
PATIENT RESTING IN THE BED DENIES DISCOMFORT. VS STABLE.
[2020-11-30 04:00] VITALS: BP 115/47
--- NOTE | 2020-11-30 06:13 | NUR ---
NURSE HAND-OFF REPORT: Important Events on Shift:[] Patient Status: [] Diet: [] Pending Orders: [] Pending Results/Labs:[] Pending MD notification:[] Latest Vital Signs: Temperature 96.6 , Pulse 60 , B/P 115 /47 , Respiratory Rate 17 , O2 SAT 100 , Room Air, O2 Flow Rate . Vital Sign Comment: [] EKG Rhythm: Sinus Rhythm Rhythm change?: N MD Notified?: N -Dr. Makenzie COLEY Response: Latest Srivastava Fall Score: 70 Fall Risk: High Risk Safety Measures: Call light Within Reach, Bed Alarm Zone 2, Side Rails Side Rails x2, Bed position Low and Locked. Fall Precautions: Yellow Socks Door Sign Patient Fall Education Report given to [].
[2020-11-30 08:00] VITALS: BP 109/52
--- NOTE | 2020-11-30 09:42 | Nephrology Progress Note ---
Assessment/Plan Problem List: (1) ESRD (end stage renal disease) (2) Diabetic nephropathy (3) Pacemaker (4) Hypertensive kidney disease (5) History of CVA (cerebrovascular accident) (6) Anemia in chronic kidney disease (CKD) Assessment 70-year-old female with end-stage renal disease presents with chest pressure History of diabetes mellitus with nephropathy and neuropathy Previous CVA with left weakness Pacemaker paroxysmal atrial fibrillation Hypertension Hyperlipemia Anemia Allergy to penicillin Plan November 30: Due for dialysis today. Clinically stable. Medication list reviewed. No blood drawn today. November 29: Dialyzed yesterday. Labs reviewed. Medication list reviewed. Next dialysis tomorrow. Stable from renal standpoint of view. November 28: Due for dialysis today. Labs reviewed. Medication list reviewed. Clinically stable. Continue per consultants. November 27: Dialyzed yesterday. Will attempt to dialyze tomorrow again. Nitropaste discontinued. Continue per consultants. Labs reviewed. Medication list reviewed. November 26: Comfortable. Due for dialysis today. Blood pressure hovering around 90 to 100 systolic. Lopressor dose decreased. Albumin for BP support during dialysis. Will check lab tomorrow. Continue per consultants. November 25: No chest pain today. Labs reviewed. Medication list reviewed. Hemodialysis in a.m. Patient has normal right chest permacath however has right arm fistula which was used for the first time yesterday Continue per cardiology advice Keep the blood pressure blood sugar in check Hemodialysis in a.m. Per orders Subjective ROS Limited/Unobtainable: No Constitutional: Reports: malaise Objective Objective Last 24 Hour Vital Signs Date Time Temp Pulse Resp B/P (MAP) Pulse Ox O2 Delivery O2 Flow Rate FiO2 11/30/20 08:00 97.7 61 18 109/52 (71) 97 11/30/20 08:00 60 11/30/20 04:00 60 11/30/20 04:00 96.6 60 17 115/47 (69) 100 11/30/20 00:00 60 11/30/20 00:00 99.0 60 18 104/45 (64) 100 11/29/20 21:00 Room Air 11/29/20 20:49 98.6 59 18 124/44 (70) 96 11/29/20 20:35 59 127/43 11/29/20 20:00 60 11/29/20 16:00 98.1 59 18 127/43 (71) 96 11/29/20 15:21 60 11/29/20 12:00 60 11/29/20 11:52 97.5 60 18 111/42 (65) 94 Intake and Output 11/29/20 11/30/20 19:00 07:00 Intake Total 370 ml Output Total 2 ml Balance 370 ml -2 ml Intake Oral 370 ml Output Urine Total 2 ml # Bowel Movements 1 1 Current Medications Medications (Trade) Dose Ordered Sig/Jesus Route PRN Reason Start Time Stop Time Status Last Admin Dose Admin Acetaminophen (Tylenol) 650 mg Q4H PRN ORAL Mild Pain (Pain Scale 1-3) 11/24/20 15:45 12/24/20 15:44 Acetaminophen/ Hydrocodone Bitart ([place] 10/325) 1 tab Q4H PRN ORAL Severe Pain (Pain Scale 7-10) 11/25/20 12:15 12/02/20 12:14 Acetaminophen/ Hydrocodone Bitart ([place] 5/325) 1 tab Q4H PRN ORAL Moderate Pain (Pain Scale 4-6) 11/24/20 15:45 12/01/20 15:44 Apixaban (Eliquis) 2.5 mg BID ORAL 11/24/20 18:00 02/22/21 17:59 11/29/20 17:06 Aspirin (ASA) 81 mg DAILY ORAL 11/25/20 09:00 01/09/21 08:59 11/29/20 08:14 Atorvastatin Calcium (Lipitor) 20 mg BEDTIME ORAL 11/24/20 21:00 02/22/21 20:59 11/29/20 20:35 Chlorhexidine Gluconate (Cira-Hex 2%) 1 applic DAILY@1999 TOPIC 11/25/20 20:00 02/23/21 19:59 11/29/20 20:35 Docusate Sodium (Colace) 100 mg TID ORAL 11/24/20 18:00 12/24/20 17:59 11/29/20 17:06 Gabapentin (Neurontin) 100 mg TID ORAL 11/24/20 18:00 12/24/20 17:59 11/29/20 17:14 Metoprolol Tartrate (Lopressor) 12.5 mg Q12HR ORAL 11/27/20 09:00 02/22/21 20:59 2/22/21 20:35 Pantoprazole (Protonix) 40 mg DAILY ORAL 11/25/20 09:00 12/25/20 08:59 11/29/20 08:14 Zolpidem Tartrate (Ambien) 5 mg HSPRN PRN ORAL Insomnia 11/25/20 21:00 12/02/20 20:59 Height (Feet): 5 Height (Inches): 4.00 Weight (Pounds): 170 General Appearance: no apparent distress Cardiovascular: normal rate Respiratory/Chest: decreased breath sounds Abdomen: soft Objective No change Manas Stephenson MD Nov 30, 2020 09:42
[2020-11-30] MEDS: Aspirin Baby 81mg ORAL SCH (10:04)
[2020-11-30] MEDS: Eliquis 2.5mg tablet ORAL SCH ×2 (10:05→17:07)
[2020-11-30] MEDS: Docusate 100mg cap ORAL SCH ×3 (10:05→17:07)
--- NOTE | 2020-11-30 10:06 | Pulmonology Progress Note ---
Subjective ROS Limited/Unobtainable: No Interval Events: None major reported per nursing Constitutional: Reports: no symptoms HEENT: Repors: no symptoms Respiratory: Reports: no symptoms Cardiovascular: Reports: no symptoms Gastrointestinal/Abdominal: Reports: no symptoms Genitourinary: Reports: no symptoms Allergies: Coded Allergies: PENICILLINS (Verified Allergy, Unknown, 04/23/20) Tolerated Cefepime 04/23/20 Objective Last 24 Hour Vital Signs Date Time Temp Pulse Resp B/P (MAP) Pulse Ox O2 Delivery O2 Flow Rate FiO2 11/30/20 08:00 97.7 61 18 109/52 (71) 97 11/30/20 08:00 60 11/30/20 04:00 60 11/30/20 04:00 96.6 60 17 115/47 (69) 100 11/30/20 00:00 60 11/30/20 00:00 99.0 60 18 104/45 (64) 100 11/29/20 21:00 Room Air 11/29/20 20:49 98.6 59 18 124/44 (70) 96 11/29/20 20:35 59 127/43 11/29/20 20:00 60 11/29/20 16:00 98.1 59 18 127/43 (71) 96 11/29/20 15:21 60 11/29/20 12:00 60 11/29/20 11:52 97.5 60 18 111/42 (65) 94 Intake and Output 11/29/20 11/30/20 19:00 07:00 Intake Total 370 ml Output Total 2 ml Balance 370 ml -2 ml Intake Oral 370 ml Output Urine Total 2 ml # Bowel Movements 1 1 General Appearance: no acute distress HEENT: atraumatic Respiratory: lungs clear Cardiovascular: normal rate, regular rhythm Abdomen: soft, non tender Current Medications Medications (Trade) Dose Ordered Sig/Jesus Route PRN Reason Start Time Stop Time Status Last Admin Dose Admin Acetaminophen (Tylenol) 650 mg Q4H PRN ORAL Mild Pain (Pain Scale 1-3) 11/24/20 15:45 12/24/20 15:44 Acetaminophen/ Hydrocodone Bitart ([place] 10/325) 1 tab Q4H PRN ORAL Severe Pain (Pain Scale 7-10) 11/25/20 12:15 12/02/20 12:14 Acetaminophen/ Hydrocodone Bitart ([place] 5/325) 1 tab Q4H PRN ORAL Moderate Pain (Pain Scale 4-6) 11/24/20 15:45 12/01/20 15:44 Apixaban (Eliquis) 2.5 mg BID ORAL 11/24/20 18:00 02/22/21 17:59 11/29/20 17:06 Aspirin (ASA) 81 mg DAILY ORAL 11/25/20 09:00 01/09/21 08:59 11/29/20 08:14 Atorvastatin Calcium (Lipitor) 20 mg BEDTIME ORAL 11/24/20 21:00 02/22/21 20:59 11/29/20 20:35 Chlorhexidine Gluconate (Cira-Hex 2%) 1 applic DAILY@1999 TOPIC 11/25/20 20:00 02/23/21 19:59 11/29/20 20:35 Docusate Sodium (Colace) 100 mg TID ORAL 11/24/20 18:00 12/24/20 17:59 11/29/20 17:06 Gabapentin (Neurontin) 100 mg TID ORAL 11/24/20 18:00 12/24/20 17:59 11/29/20 17:14 Metoprolol Tartrate (Lopressor) 12.5 mg Q12HR ORAL 11/27/20 09:00 02/22/21 20:59 11/29/20 20:35 Pantoprazole (Protonix) 40 mg DAILY ORAL 11/25/20 09:00 12/25/20 08:59 11/29/20 08:14 Zolpidem Tartrate (Ambien) 5 mg HSPRN PRN ORAL Insomnia 11/25/20 21:00 12/02/20 20:59 Assessment/Plan Assessment/Plan 1. Hypertension, likely secondary to #8 - controlled 2. Anemia, likely secondary to #8 3. Hypoxic respiratory distress; resolved -COVID-19 negative -Currently on 2L NC saturating well; will wean off oxygen - supplemental oxygen as needed 4. History of asthma -Patient reports distant history of asthma and denies using any inhalers within the past few years 5. History of COPD -Patient denies use of home oxygen -Provide supplemental oxygen as needed 6. Elevated D-dimer -Her home medications include Eliquis; continue Eliquis 7. ESRD on dialysis - nephro following Noted plans for discharge after dialysis today Medically stable from pulmonary standpoint The care for this patient was discussed with my supervising physician. Time spent for this case was approximately 31 minutes. Navin Morse Nov 30, 2020 10:06
[2020-11-30] MEDS ORDERED: LOPRESSOR25 M1 ORAL (10:38)
[2020-11-30 12:00] VITALS: BP 122/71
--- NOTE | 2020-11-30 12:57 | NUR ---
*-*DISCHARGE PLANNED PATIENT IS BEING DISCHARGE HOME [facility] SET FOR 4:15PM [id number].
[2020-11-30 16:00] VITALS: BP 108/56
--- NOTE | 2020-11-30 18:54 | Surgery Progress Note ---
Surgery Progress Note Subjective Additional Comments overall stable no n/v exam stable unchanged dressings going well Objective Last 24 Hour Vital Signs Date Time Temp Pulse Resp B/P (MAP) Pulse Ox O2 Delivery O2 Flow Rate FiO2 11/30/20 16:00 60 11/30/20 16:00 98.9 60 18 108/56 (73) 95 11/30/20 12:00 60 11/30/20 12:00 97.7 61 18 122/71 (88) 95 11/30/20 09:00 60 109/52 11/30/20 09:00 Room Air 11/30/20 08:00 97.7 61 18 109/52 (71) 97 11/30/20 08:00 60 11/30/20 04:00 60 11/30/20 04:00 96.6 60 17 115/47 (69) 100 11/30/20 00:00 60 11/30/20 00:00 99.0 60 18 104/45 (64) 100 11/29/20 21:00 Room Air 11/29/20 20:49 98.6 59 18 124/44 (70) 96 11/29/20 20:35 59 127/43 11/29/20 20:00 60 I&O Intake and Output 11/29/20 11/30/20 19:00 07:00 Intake Total 370 ml Output Total 2 ml Balance 370 ml -2 ml Intake Oral 370 ml Output Urine Total 2 ml # Bowel Movements 1 1 Dressing: saturated Cardiovascular: RSR Respiratory: decreased breath sounds Abdomen: soft, flat, non-tender, present bowel sounds, non-distended Extremities: no edema, no tenderness, no cyanosis Plan Problems: (1) COPD (chronic obstructive pulmonary disease) (2) Hyperkalemia (3) Generalized weakness (4) Bradycardia (5) ESRD (end stage renal disease) (6) Diabetic nephropathy (7) Diabetic nephropathy (8) Chest pressure (9) Pacemaker (10) Hypertensive kidney disease (11) History of atrial fibrillation (12) ESRD (end stage renal disease) on dialysis (13) History of CVA (cerebrovascular accident) (14) Volume overload (15) Cellulitis of left foot (16) Heel abrasion (17) Episode of generalized weakness (18) Anemia in chronic kidney disease (CKD) (19) Elevated troponin I level (20) Urinary tract infection due to Proteus (21) Deep tissue injury Assessment & Plan: Morbidly obese pt whom presented on admission with MASD and Multiple Pressure Injuries. Moisture Intertrigo noted to Skin folds of L breast, abdominal folds and L groin. Full thickness stage 3 Sacral Pressure Injury that is resolving (L)11.5cm x (W)10.3cm. Base of wound is 20% slough ,80% mixed pink epithelial and red granulation. Small amt non-odorous serous exudate noted Hyperpigmentation periwound. Full thickness stage 3 Pressure Injury L Ischium(L)1.2cm x (W)5.3cm. Base of wound is 50% slough,50% beefy red. Edges are macerated. Periwound is erythematous without induration or changes in skin temp. Unstageable Pressure Injury L heel with Loose necrotic cap(L)2.5cm x (W)3cm. 75% loose non-viable cap easily removed. Remaining 25% Necrosis that is adherent to base of wound . with surrounding pink epithelial. Periwound is boggy but blanchable. R heel is boggy but blanchable. Both feet are mottled and cool to touch. Xerotic skin bilat lower extremities and both feet. Tx.Plan: Cleanse Sacral wound with Saline. Apply Therahoney to slough. Apply Moisture Barrier Paste periwound. Cover with Optifoam drsg. Change Daily and prn. Cleanse L Ischial wound with Saline. Apply TheraHoney. Apply Moisture Barrier Paste periwound. Cover with Optifoam drsg Daily and prn. Wash skin folds with Tepid soap and water. Pat dry. Apply Light dusting of Remedy Antifungal powder to Skin Folds of both breasts, Abdominal folds, and Bilat Groin Twice Daily. Apply Betadine to L heel. Cover with Optifoam drsg. Change every 3 days and prn. Moisturize both lower extremities with lotion Daily. Reposition at least every 2hours or as tolerated. Off-load heels with Pillow. APM/LUCIANA Mattress overlay. (22) Dyspnea (23) Symptomatic anemia (24) Acute on chronic renal failure (25) Anemia (26) HTN (hypertension) Luis Alberto Cade Nov 30, 2020 18:54
[2020-11-30 20:00] VITALS: BP 101/52
[2020-11-30] MEDS: Dyna-Hex 2% Top Sol 2oz TOPIC SCH (20:00)
--- NOTE | 2020-11-30 20:30 | NUR ---
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 Pt in stable condition. No s/s of distress or discomfort. VSS. Discharged without incident.
--- NOTE | 2020-12-01 14:17 | Discharge Summary ---
Discharge Summary Discharge Summary _ Date of admission: 11/24/2020 Date of discharge: 11/30/[address] Banegas History of Present Illness and Brief Hospital Course Ms. Lassiter is a 70-year-old female with past medical history of hypertension, stroke, and end-stage renal disease on dialysis, who presented to the ED for evaluation of chest pressure x1 day. Patient reported that she is a dialysis patient but missed her dialysis on the day of presentation. Patient tested negative for COVID-19 in the ER. Her chest x-ray showed mild interstitial congestion. Patient was given aspirin and nitroglycerin in the ER and was admitted to the hospital for further management. Patient reported improvement of her chest pain/pressure after one session hemodialysis after admission. She was found to have preserved ejection fraction with ejection fraction of 55% on echocardiogram. Patient presented on admission with multiple pressure injuries including but not limited to sacral, left ischium, and bilateral heels. Patient was also noted to have moisture intertrigo in the skin folds of left breast, abdominal folds and left groin. Appropriate wound care was in place. Throughout her hospitalization, patient was continued on hemodialysis at regular intervals. Patient no longer complained of chest pain/chest pressure or respiratory distress. Patient was medically stable for discharge and was discharged home on 11/30/2020. Consultants: Cardiology [facility] Willson Pulmonology Dr. Roe Nephrology Dr. Naylor Surgery Dr. Cade Discharge Condition Improved and stable Final diagnoses ESRD, on hemodialysis Chest pain HFpEF, EF 55% History of CVA Hypertension Hyperlipidemia Diabetic nephropathy s/p pacemaker implant Anemia in chronic kidney disease Hypoxemic respiratory failure Decubitus wound Paroxysmal atrial fibrillation Diabetes mellitus Dementia History of COPD Hyperkalemia Cellulitis of left foot Heel abrasion I have been assigned to dictate discharge summary for this account. Navin Morse Dec 01, 2020 14:17
--- NOTE | 2020-12-02 19:21 | Cardiology Report ---
APPROVED REPORT EKG Measurement Heart [id number] <Conclusion> Atrial-paced rhythm with prolonged AV conduction Abnormal ECG
== END 2020-11-30 20:40 | disposition home or self-care (01) | DRG 640 ==
LOC: EDBD 11:26 → EDBEDREQ 12:06 → EMR 12:41 → 2E 12:45 → EDBEDREQ 13:35
PROC: 5A1D70Z Performance of Urinary Filtration, Intermittent, Less than 6 Hours Per Day (ICD-10-PCS; principal; 2020-11-26)
DX: E87.79 Other fluid overload (principal); L89.153 Pressure ulcer of sacral region, stage 3; L89.323 Pressure ulcer of left buttock, stage 3; N18.6 End stage renal disease; J96.91 Respiratory failure, unspecified with hypoxia; I69.354 Hemiplegia and hemiparesis following cerebral infarction affecting left non-dominant side; I13.2 Hypertensive heart and chronic kidney disease with heart failure and with stage 5 chronic kidney disease, or end stage renal disease; I50.32 Chronic diastolic (congestive) heart failure; L03.116 Cellulitis of left lower limb; N39.0 Urinary tract infection, site not specified; R07.89 Other chest pain; E11.40 Type 2 diabetes mellitus with diabetic neuropathy, unspecified; Z88.0 Allergy status to penicillin; Z95.0 Presence of cardiac pacemaker; E11.22 Type 2 diabetes mellitus with diabetic chronic kidney disease; Z99.2 Dependence on renal dialysis; Z86.73 Personal history of transient ischemic attack (TIA), and cerebral infarction without residual deficits; D63.1 Anemia in chronic kidney disease; I48.0 Paroxysmal atrial fibrillation; J44.9 Chronic obstructive pulmonary disease, unspecified; F03.90 Unspecified dementia, unspecified severity, without behavioral disturbance, psychotic disturbance, mood disturbance, and anxiety; E87.5 Hyperkalemia; S90.819A Abrasion, unspecified foot, initial encounter; X58.XXXA Exposure to other specified factors, initial encounter; Z79.01 Long term (current) use of anticoagulants; B96.4 Proteus (mirabilis) (morganii) as the cause of diseases classified elsewhere; E66.01 Morbid (severe) obesity due to excess calories; L89.620 Pressure ulcer of left heel, unstageable; Z68.38 Body mass index [BMI] 38.0-38.9, adult
CPT/HCPCS: 36415; 71045; 80053; 80061; 82550; 82728; 82977; 83036; 83605; 83615; 83690; 83735; 83880; 84100; 84443; 84484; 84550; 85025; 85379; 85610; 85730; 86140; 87081; 93005; 93306; 99285